=== PATIENT | female | born 1975 | race Caucasian/White ===

== ENCOUNTER 2016-12-04 14:44 | Emergency (ER) | payer SELFPAY ==
[~2016-12-04] VITALS: Ht 175.3 cm; Wt 145.1 kg
[~2016-12-04 14:44] MED LIST: AMOX500C2 PO; AZTH250C PO; BENZ100C8 PO; DILT180C55 PO; DILT240C PO; DILT240C86 PO; DIPH25TA29 PO; DULA1.5P2 SQ; GFCD10B PO; HCT25T PO; HYDR-3812 PO; HYDR50CA3 PO; IBUP-2055 PO; IBUP-792; LISI20TA PO; MTF500T PO; MTP25TSR; NAPR-243 PO; ONDA-42 SL; OSLT75C PO; PRD20T PO; PRD50T PO; PROP10TA8 PO; PROP20TA5 PO; QUIN1TAB3 PO; SMTR50T PO; SPIR25TA3 PO; SULF1TAB35 PO; SUMA1TAB PO; TPR25T PO
[2016-12-04] MEDS ORDERED: METF500T4 (14:53)
--- NOTE | 2016-12-04 14:58 | ED Upper Extremity ---
General Chief Complaint: Upper Extremity Stated Complaint: FALL, L ARM/ELBOW INJ Nursing Triage Note: LEFT SHOULDER PAIN S/P FALL. DENIES OTHER INJURIES. Nursing Sepsis Screen: No Definite Risk Source: patient Exam Limitations: no limitations History of Present Illness Time seen by provider: 14:57 Initial Comments to ER with left scapular pain after a slip and fall while at a graduation event today. Did not hit her head and there were no other injuries. Onset: just prior to arrival Severity: moderate Pain/Injury Location: left shoulder Method of Injury: fell Modifying Factors: Worse With Movement Allergies and Home Medications Allergies Coded Allergies: codeine (Verified Allergy, Unknown, 10/29/14) hydrochlorothiazide (Verified Allergy, Unknown, 10/29/14) Home Medications Diltiazem HCl 240 Mg Cap.er.24h, 240 MG PO DAILY, (Reported) Diphenhydramine HCl 25 Mg Tablet, 50 MG PO DAILY PRN for HEADACHE, (Reported) TAKES 2 (25 MG) TABLETS WITH IBUPROFEN NEEDED FOR HEADACHE Dulaglutide 1.5 Mg/0.5 Ml Pen.injctr, 1.5 MG SQ WEEK, (Reported) ON WEDNESDAYS Hydrocodone/Acetaminophen 1 Each Tablet, 1-2 EACH PO Q4H PRN for PAIN for 14 Days Prescribed by: LEIGHA OSBORN on 07/13/16 1534 Ibuprofen 200 Mg Tablet, 800 MG PO DAILY PRN for HEADACHE, (Reported) TAKES 4 (200 MG) TABLETS Metformin HCl 500 Mg Tablet, #180 (Reported) Propranolol HCl 10 Mg Tablet, 10 MG PO BID, (Reported) Spironolactone 25 Mg Tablet, 25 MG PO DAILY, (Reported) Sumatriptan Succinate 50 Mg Tab, 50 MG PO DAILY PRN for MIGRAINE, #9 Ref 1 Prescribed by: SHERIN TOURE on 06/14/16 1033 Constitutional: see HPI EENTM: see HPI Respiratory: no symptoms reported Cardiovascular: no symptoms reported Genitourinary: no symptoms reported Musculoskeletal: see HPI Skin: no symptoms reported Psychiatric/Neurological: No Symptoms Reported Past Tuokmyf-Rsxxjd-Inycic Hx Patient Social History Alcohol Use: Denies Use Recreational Drug Use: No Smoking Status: Never a Smoker 2nd Hand Smoke Exposure: No Recent Foreign Travel: No Contact w/Someone Who Travel: No Recent Infectious Disease Expo: No Recent Hopitalizations: No Immunizations Up To Date Tetanus Booster (TDap): Unknown Seasonal Allergies Seasonal Allergies: No Surgeries HX Surgeries: Yes Surgeries: Section, Gallbladder Respiratory Hx Respiratory Disorders: Yes Respiratory Disorders: Pneumonia, Sleep Apnea Cardiovascular Hx Cardiac Disorders: Yes (heart murmer as child) Cardiac Disorders: Heart Murmur, High Cholesterol, Hypertension Neurological Hx Neurological Disorders: Yes Neurological Disorders: Headaches /Migraines Reproductive System : No Hx Reproductive Disorders: No Sexually Transmitted Disease: No HIV/AIDS: No Genitourinary Hx Genitourinary Disorders: No Gastrointestinal Hx Gastrointestinal Disorders: No Musculoskeletal Hx Musculoskeletal Disorders: No Endocrine Hx Endocrine Disorders: Yes ("PREDIABETES"-HAS NEVER CHECKED GLUCOSE AT HOME- STATES "HIGH INSULIN LEVEL") Endocrine Disorders: Diabetes, Non-Insulin dep HEENT HX ENT Disorders: Yes (FREQUENT PHARYNGITIS) HEENT Disorders: Tonsilitis Cancer Hx Cancer: No Psychosocial Hx Psychiatric Problems: No Integumentary HX Skin/Integumentary Disorder: No Blood Transfusions Hx Blood Disorders: No Adverse Reaction to a Blood Tr: No Family Medical History Family Medial History: Arthritis Asthma 19 FATHER (copd) 19 MOTHER (copd) Cardiovascular disease 19 FATHER (chf) Diabetes mellitus 19 FATHER Hypertension 19 FATHER 19 MOTHER G8 BROTHER G8 SISTER Physical Exam Vital Signs Vital Sign - Last 12Hours 12/04/16 14:53 Temp 97.7 Pulse 87 Resp 16 B/P (MAP) 146/98 Pulse Ox 96 O2 Delivery Room Air Capillary Refill : Less Than 3 Seconds General Appearance: WD/WN, no apparent distress HEENT: PERRL/EOMI, normal ENT inspection Neck: non-tender, full range of motion Respiratory: no respiratory distress, no accessory muscle use Gastrointestinal: normal bowel sounds, non tender Shoulder: limited ROM, pain (pain to palpation over the posterior aspect left shoulder over the medial border of the scapula. No ecchymosis abrasion or erythema.) Elbow/Forearm: normal inspection, non-tender, Left Wrist: Yes normal inspection, Yes non-tender Hand: normal inspection, non-tender, Left Neurologic/Psychiatric: alert, normal mood/affect, oriented x 3 Skin: normal color, warm/dry Progress/Results/Core Measures Results/Orders My Orders Orders - ALLEGRA VILLATORO APRN Shoulder, Left, 3 Views (12/04/16 14:54) Ketorolac Injection (Toradol Injection) (12/04/16 15:00) Orphenadrine Injection (Norflex Injectio (12/04/16 15:00) Vital Signs/I&O Vital Sign - Last 12Hours 12/04/16 14:53 Temp 97.7 Pulse 87 Resp 16 B/P (MAP) 146/98 Pulse Ox 96 O2 Delivery Room Air Blood Pressure Mean: 114 Departure Impression Impression: Primary Impression: Shoulder contusion Disposition: HOME, SELF-CARE Condition: Critical Departure-Patient Inst. Decision time for Depature: 15:02 Referrals: [facility] (PCP/Family) Primary Care Physician Patient Instructions: Contusion (DC) Add. Discharge Instructions: 1. Tylenol and Motrin for pain 2. Return to ER for any concerns 3. See your doctor next week for any persistent pain for further evaluation All discharge instructions reviewed with patient and/or family. Voiced understanding. ALLEGRA VILLATORO APRN December 04, 2016 14:58
[2016-12-04] MEDS ORDERED: ORPHENADRINE 60 MG/2 ML (NORFLEX) AMP IM ONE (15:00)
[2016-12-04] MEDS ORDERED: KETOROLAC 60 MG/2 ML VIAL IM ONE (15:00)
--- NOTE | 2016-12-04 15:49 | Diagnostic Imaging Report ---
INDICATION: Shoulder pain post fall TECHNIQUE: Three views of the left shoulder 3:33 PM CORRELATION STUDY: None FINDINGS: The glenohumeral and acromioclavicular alignment are maintained and unremarkable. There is no evidence for acute fracture or dislocation. The visualized soft tissues are unremarkable. IMPRESSION: 1. Negative for acute bony abnormality about the shoulder. Dictated by: Dictated on workstation # [id number]
--- NOTE | 2016-12-04 15:51 | Diagnostic Imaging Report ---
INDICATION: pain post fall TECHNIQUE: 3 views of the left elbow CORRELATION STUDY: None FINDINGS: There is normal alignment of the osseous structures of the elbow. No acute fracture. No abnormal joint effusion. IMPRESSION: 1. Negative for acute bony abnormality of the elbow. Dictated by: Dictated on workstation # [id number]
[2016-12-04 15:54] VITALS: BP 146/98
== END 2016-12-04 15:53 | disposition home or self-care (01) ==
LOC: EDUNIT# 14:44 → ER 14:45
DX: S40.012A Contusion of left shoulder, initial encounter (principal); I10 Essential (primary) hypertension; E11.9 Type 2 diabetes mellitus without complications; Z79.84 Long term (current) use of oral hypoglycemic drugs; W01.0XXA Fall on same level from slipping, tripping and stumbling without subsequent striking against object, initial encounter; Y92.39 Other specified sports and athletic area as the place of occurrence of the external cause; Y99.8 Other external cause status
CPT/HCPCS: 73030; 73080; 96372; 99282

== ENCOUNTER 2017-02-05 10:05 | Emergency (ER) | payer SELFPAY ==
[~2017-02-05] VITALS: Ht 175.3 cm; Wt 145.1 kg
[~2017-02-05 10:05] MED LIST changes: +METF500T4
--- NOTE | 2017-02-05 10:50 | ED Back Pain ---
General Chief Complaint: Back Problems Stated Complaint: L SIDE BACK PAIN Source of Information: Patient Exam Limitations: No Limitations History of Present Illness Time Seen by Provider: 10:50 Initial Comments To ER with left mid back pain described as a shooting pain. She had some slight pain here yesterday. No known injury. No shortness of breath cough. No fevers or chills. She's never had this pain before. She denies any associated nausea vomiting or diarrhea. She denies any known injury. Pain is worsened by lying flat. She does have a history of kidney infections she states. Location: Paraspinous Muscles Timing/Duration: 1-2 Days Severity: Moderate Pain/Injury Location: Back Associated Symptoms: denies symptoms Allergies and Home Medications Allergies Coded Allergies: codeine (Verified Allergy, Unknown, 10/29/14) hydrochlorothiazide (Verified Allergy, Unknown, 10/29/14) Home Medications Diltiazem HCl 240 Mg Cap.er.24h, 240 MG PO DAILY, (Reported) Diphenhydramine HCl 25 Mg Tablet, 50 MG PO DAILY PRN for HEADACHE, (Reported) TAKES 2 (25 MG) TABLETS WITH IBUPROFEN NEEDED FOR HEADACHE Dulaglutide 1.5 Mg/0.5 Ml Pen.injctr, 1.5 MG SQ WEEK, (Reported) ON WEDNESDAYS Hydrocodone/Acetaminophen 1 Each Tablet, 1-2 EACH PO Q4H PRN for PAIN for 14 Days Prescribed by: LEIGHA OSBORN on 07/13/16 1534 Ibuprofen 200 Mg Tablet, 800 MG PO DAILY PRN for HEADACHE, (Reported) TAKES 4 (200 MG) TABLETS Metformin HCl 500 Mg Tablet, #180 (Reported) Propranolol HCl 10 Mg Tablet, 10 MG PO BID, (Reported) Spironolactone 25 Mg Tablet, 25 MG PO DAILY, (Reported) Sumatriptan Succinate 50 Mg Tab, 50 MG PO DAILY PRN for MIGRAINE, #9 Ref 1 Prescribed by: SHERIN TOURE on 06/14/16 1033 Constitutional: see HPI, No chills, No fever EENTM: see HPI Respiratory: no symptoms reported Cardiovascular: no symptoms reported Genitourinary: no symptoms reported, No dysuria, No frequency, No hematuria, No hesitancy Musculoskeletal: see HPI, back pain Skin: no symptoms reported Psychiatric/Neurological: No Symptoms Reported Past Cfqarvo-Iebmib-Acoyvu Hx Patient Social History 2nd Hand Smoke Exposure: No Recent Foreign Travel: No Contact w/Someone Who Travel: No Recent Hopitalizations: No Immunizations Up To Date Tetanus Booster (TDap): Unknown Seasonal Allergies Seasonal Allergies: No Surgeries HX Surgeries: Yes Surgeries: Section, Gallbladder Respiratory Hx Respiratory Disorders: Yes Respiratory Disorders: Pneumonia, Sleep Apnea Cardiovascular Hx Cardiac Disorders: Yes (heart murmer as child) Cardiac Disorders: Heart Murmur, High Cholesterol, Hypertension Neurological Hx Neurological Disorders: Yes Neurological Disorders: Headaches /Migraines Reproductive System Hx Reproductive Disorders: No Sexually Transmitted Disease: No HIV/AIDS: No Genitourinary Hx Genitourinary Disorders: No Gastrointestinal Hx Gastrointestinal Disorders: No Musculoskeletal Hx Musculoskeletal Disorders: No Endocrine Hx Endocrine Disorders: Yes ("PREDIABETES"-HAS NEVER CHECKED GLUCOSE AT HOME- STATES "HIGH INSULIN LEVEL") Endocrine Disorders: Diabetes, Non-Insulin dep HEENT HX ENT Disorders: Yes (FREQUENT PHARYNGITIS) HEENT Disorders: Tonsilitis Cancer Hx Cancer: No Psychosocial Hx Psychiatric Problems: No Integumentary HX Skin/Integumentary Disorder: No Blood Transfusions Hx Blood Disorders: No Adverse Reaction to a Blood Tr: No Family Medical History Family Medial History: Arthritis Asthma 19 FATHER (copd) 19 MOTHER (copd) Cardiovascular disease 19 FATHER (chf) Diabetes mellitus 19 FATHER Hypertension 19 FATHER 19 MOTHER G8 BROTHER G8 SISTER Physical Exam Vital Signs Vital Sign - Last 12Hours 02/05/17 10:20 Temp 98.1 Pulse 70 B/P (MAP) 134/98 Pulse Ox 98 O2 Delivery Room Air Capillary Refill : General Appearance: No Apparent Distress, WD/WN, Obese HEENT: PERRL/EOMI, TMs Normal Respiratory: No Accessory Muscle Use, No Respiratory Distress Gastrointestinal: Non Tender, Soft Extremity: Normal Capillary Refill, Normal Inspection Neurologic/Psychiatric: Alert, Oriented x3, No Motor/Sensory Deficits Skin: Normal Color, Warm/Dry Progress/Results/Core Measures Results/Orders Lab Results Laboratory Tests Test 02/05/17 10:30 02/05/17 10:46 Range/Units Urine Color YELLOW Urine Clarity VERY CLOUDY H Urine pH 5 5-9 Urine Specific [place] 1.020 1.016-1.022 Urine Protein NEGATIVE NEGATIVE Urine Glucose (UA) NEGATIVE NEGATIVE Urine Ketones NEGATIVE NEGATIVE Urine Nitrite NEGATIVE NEGATIVE Urine Bilirubin NEGATIVE NEGATIVE Urine Urobilinogen NORMAL NORMAL MG/DL Urine Leukocyte Esterase 2+ H NEGATIVE Urine RBC (Auto) NEGATIVE NEGATIVE Urine RBC NONE /HPF Urine WBC 5-10 H /HPF Urine Crystals PRESENT H /LPF Urine Amorphous Sediment MOD CASSANDRA URATES H /LPF Urine Bacteria LARGE H /HPF Urine Casts NONE /LPF Urine Mucus SMALL H /LPF Urine Culture Indicated YES Urine Test NEGATIVE NEGATIVE White Blood Count 7.5 4.3-11.0 10^3/uL Red Blood Count 5.20 4.35-5.85 10^6/uL Hemoglobin 12.6 11.5-16.0 G/DL Hematocrit 40 35-52 % Mean Corpuscular Volume 77 L 80-99 FL Mean Corpuscular Hemoglobin 24 L 25-34 PG Mean Corpuscular Hemoglobin Concent 31 L 32-36 G/DL Red Cell Distribution Width 15.0 H 10.0-14.5 % Platelet Count 340 130-400 10^3/uL Mean Platelet Volume 9.3 7.4-10.4 FL Neutrophils (%) (Auto) 55 42-75 % Lymphocytes (%) (Auto) 30 12-44 % Monocytes (%) (Auto) 8 0-12 % Eosinophils (%) (Auto) 7 0-10 % Basophils (%) (Auto) 0 0-10 % Neutrophils # (Auto) 4.1 1.8-7.8 X 10^3 Lymphocytes # (Auto) 2.3 1.0-4.0 X 10^3 Monocytes # (Auto) 0.6 0.0-1.0 X 10^3 Eosinophils # (Auto) 0.5 H 0.0-0.3 10^3/uL Basophils # (Auto) 0.0 0.0-0.1 10^3/uL Sodium Level 139 135-145 MMOL/L Potassium Level 4.3 3.6-5.0 MMOL/L Chloride Level 107 98-107 MMOL/L Carbon Dioxide Level 23 21-32 MMOL/L Anion Gap 9 5-14 MMOL/L Blood Urea Nitrogen 7 7-18 MG/DL Creatinine 0.75 0.60-1.30 MG/DL Estimat Glomerular Filtration Rate > 60 BUN/Creatinine Ratio 9 Glucose Level 100 70-105 MG/DL Calcium Level 9.4 8.5-10.1 MG/DL Total Bilirubin 0.4 0.1-1.0 MG/DL Aspartate Amino Transf (AST/SGOT) 17 5-34 U/L Alanine Aminotransferase (ALT/SGPT) 17 0-55 U/L Alkaline Phosphatase 51 40-136 U/L Total Protein 7.6 6.4-8.2 GM/DL Albumin 4.1 3.2-4.5 GM/DL My Orders Orders - ALLEGRA VILLATORO APRN Cbc With Automated Diff (02/05/17 10:48) Comprehensive Metabolic Panel (02/05/17 10:48) Saline Lock/Iv-Start (02/05/17 10:48) Ua Culture If Indicated (02/05/17 10:48) Ketorolac Injection (Toradol Injection) (02/05/17 11:00) Orphenadrine Injection (Norflex Injectio (02/05/17 11:00) Ns Iv 1000 Ml (Sodium Chloride 0.9%) (02/05/17 11:45) Ct Abdomen/Pelvis Wo (02/05/17 12:02) Hydrocodone/Apap 5/325 Tablet (Lortab 5 (02/05/17 12:15) Hcg,Qualitative Urine (02/05/17 12:02) Urine Culture (02/05/17 10:30) Medications Given in ED Current Medications Medications Dose Ordered Sig/Minerva Route Start Time Stop Time Status Last Admin Dose Admin Ketorolac Tromethamine 60 mg ONCE ONCE IM 02/05/17 11:00 02/05/17 11:01 DC 02/05/17 10:56 60 MG Orphenadrine Citrate 60 mg ONCE ONCE IV 02/05/17 11:00 02/05/17 11:01 DC 02/05/17 10:56 60 MG Vital Signs/I&O Vital Sign - Last 12Hours 02/05/17 02/05/17 10:20 10:56 Temp 98.1 97.3 Pulse 70 B/P (MAP) 134/98 Pulse Ox 98 O2 Delivery Room Air Departure Impression Impression: Primary Impression: Urinary tract infection Additional Impression: Flank pain Disposition: HOME, SELF-CARE Condition: Stable Departure-Patient Inst. Decision time for Depature: 12:21 Referrals: [facility] (PCP/Family) Primary Care Physician Patient Instructions: Urinary Tract Infection, Adult (DC) Add. Discharge Instructions: 1. Take antibiotics as directed 2. tylenol and motrin as needed for pain in addition to warm packs to this area. All discharge instructions reviewed with patient and/or family. Voiced understanding. Scripts Sulfamethoxazole/Trimethoprim (Bactrim Ds Tablet) 1 Each Tablet 1 EACH PO BID, #10 TAB Prov: ALLEGRA VILLATORO APRN 02/05/17 ALLEGRA VILLATORO APRN Feb 05, 2017 10:50
[2017-02-05 10:53] LABS: BASOPHILS % (AUTO) 0 % (0-10); EOSINOPHILS # (AUTO) 0.5 10^3/uL (0.0-0.3); EOSINOPHILS % (AUTO) 7 % (0-10); LYMPHOCYTES # (AUTO) 2.3 X 10^3 (1.0-4.0); LYMPHOCYTES % (AUTO) 30 % (12-44); MEAN CORPUSCULAR HEMOGLOBIN 24 PG (25-34); MEAN CORPUSCULAR HGB CONC 31 G/DL (32-36); MEAN CORPUSCULAR VOLUME 77 FL (80-99); MEAN PLATELET VOLUME 9.3 FL (7.4-10.4); MONOCYTES # (AUTO) 0.6 X 10^3 (0.0-1.0); MONOCYTES % (AUTO) 8 % (0-12); NEUTROPHILS # (AUTO) 4.1 X 10^3 (1.8-7.8); NEUTROPHILS % (AUTO) 55 % (42-75); PLATELET COUNT 340 10^3/uL (130-400); WHITE BLOOD COUNT 7.5 10^3/uL (4.3-11.0)
[2017-02-05] MEDS ORDERED: KETOROLAC 60 MG/2 ML VIAL IM ONE (11:00)
[2017-02-05] MEDS ORDERED: ORPHENADRINE 60 MG/2 ML (NORFLEX) AMP IV ONE (11:00)
[2017-02-05 11:08] LABS: ALANINE AMINOTRANSFERASE 17 U/L (0-55); ALBUMIN 4.1 GM/DL (3.2-4.5); ANION GAP 9 MMOL/L (5-14); ASPARTATE AMINO TRANSFERASE 17 U/L (5-34); BILIRUBIN,TOTAL 0.4 MG/DL (0.1-1.0); BLOOD UREA NITROGEN 7 MG/DL (7-18); BUN/CREATININE RATIO 9; CALCIUM 9.4 MG/DL (8.5-10.1); CARBON DIOXIDE 23 MMOL/L (21-32); CHLORIDE 107 MMOL/L (98-107); CREATININE SERUM 0.75 MG/DL (0.60-1.30); GFR ESTIMATED > 60; GLUCOSE 100 MG/DL (70-105); POTASSIUM 4.3 MMOL/L (3.6-5.0); SODIUM 139 MMOL/L (135-145); TOTAL PROTEIN 7.6 GM/DL (6.4-8.2)
[2017-02-05] MEDS ORDERED: NS IV 1000 ML 1,000 ML IV SCH (11:45)
[2017-02-05 12:06] LABS: BILIRUBIN,URINE NEGATIVE (NEGATIVE); KETONES,URINE NEGATIVE (NEGATIVE); LEUKOCYTE ESTERASE ,URINE 2+ (NEGATIVE); NITRITE,URINE NEGATIVE (NEGATIVE); PH,URINE 5 (5-9); PROTEIN,URINE NEGATIVE (NEGATIVE); UROBILINOGEN,URINE NORMAL (NORMAL)
[2017-02-05] MEDS ORDERED: HYDROcodone/APAP 5 MG/325 MG (LORTAB) TAB PO ONE (12:15)
[2017-02-05] MEDS ORDERED: SULF1TAB35 PO (12:22)
--- NOTE | 2017-02-05 12:46 | Diagnostic Imaging Report ---
PROCEDURE: CT abdomen and pelvis without contrast. TECHNIQUE: Multiple contiguous axial images were obtained through the abdomen and pelvis without the use of intravenous contrast. INDICATION: Left back pain and diarrhea. COMPARISON: CT abdomen and pelvis of 05/16/2013 FINDINGS: Evaluation of the abdominal viscera is mildly limited without contrast. Lower chest: The lung bases are clear. No pericardial or pleural effusion. Peritoneum: No free intraperitoneal air or fluid. Liver and biliary system: No concerning focal hepatic lesion. Geographic areas of hypoattenuation likely represent focal fatty infiltration. Small exophytic cystic lesions in the subcapsular region of the posterior inferior right hepatic lobe are unchanged. Cholecystectomy. No biliary duct dilatation. Spleen and Pancreas: Spleen is normal. Unenhanced pancreas is grossly normal. Adrenals: Normal. tract: No renal or ureteral calculi. No obstructive uropathy. Uterus and ovaries are normal in appearance. GI tract: Stomach is decompressed. No bowel obstruction. No pericolonic inflammatory changes. Normal appendix. Vasculature and Lymph nodes: Normal caliber aorta. No abdominal or pelvic lymphadenopathy. Musculoskeletal: No concerning osseous lesion. 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 IMPRESSION: 1. No urinary tract calculi or obstructive uropathy. 2. No bowel obstruction, diverticulitis or colitis. 3. Cholecystectomy. Dictated by: Dictated on workstation # [id number]
[2017-02-05 12:50] VITALS: BP 130/92
== END 2017-02-05 12:50 | disposition home or self-care (01) ==
LOC: EDUNIT# 10:05 → ER 10:06
DX: N39.0 Urinary tract infection, site not specified (principal); G47.30 Sleep apnea, unspecified; E78.00 Pure hypercholesterolemia, unspecified; I10 Essential (primary) hypertension; E11.9 Type 2 diabetes mellitus without complications; G43.909 Migraine, unspecified, not intractable, without status migrainosus; Z82.49 Family history of ischemic heart disease and other diseases of the circulatory system; Z87.59 Personal history of other complications of pregnancy, childbirth and the puerperium; Z87.448 Personal history of other diseases of urinary system; Z79.84 Long term (current) use of oral hypoglycemic drugs
CPT/HCPCS: 36415; 74176; 80053; 81000; 84703; 85025; 87088; 96360; 96372

== ENCOUNTER 2017-02-06 22:42 | Emergency (ER) | payer SELFPAY ==
[~2017-02-06] VITALS: Ht 175.3 cm; Wt 145.2 kg
[2017-02-06] MEDS ORDERED: KETOROLAC 30 MG/ML VIAL IVP STA (23:15)
[2017-02-06 23:38] LABS: BASOPHILS % (AUTO) 0 % (0-10); EOSINOPHILS # (AUTO) 0.6 10^3/uL (0.0-0.3); EOSINOPHILS % (AUTO) 6 % (0-10); LYMPHOCYTES # (AUTO) 2.2 X 10^3 (1.0-4.0); LYMPHOCYTES % (AUTO) 22 % (12-44); MEAN CORPUSCULAR HEMOGLOBIN 24 PG (25-34); MEAN CORPUSCULAR HGB CONC 31 G/DL (32-36); MEAN CORPUSCULAR VOLUME 77 FL (80-99); MEAN PLATELET VOLUME 9.6 FL (7.4-10.4); MONOCYTES # (AUTO) 0.8 X 10^3 (0.0-1.0); MONOCYTES % (AUTO) 9 % (0-12); NEUTROPHILS # (AUTO) 6.3 X 10^3 (1.8-7.8); NEUTROPHILS % (AUTO) 64 % (42-75); PLATELET COUNT 345 10^3/uL (130-400); WHITE BLOOD COUNT 9.8 10^3/uL (4.3-11.0)
[2017-02-06] MEDS ORDERED: KETOROLAC 30 MG/ML VIAL IM ONE (23:45)
[2017-02-06 23:46] LABS: BILIRUBIN,URINE NEGATIVE (NEGATIVE); KETONES,URINE NEGATIVE (NEGATIVE); LEUKOCYTE ESTERASE ,URINE 2+ (NEGATIVE); NITRITE,URINE NEGATIVE (NEGATIVE); PH,URINE 6 (5-9); PROTEIN,URINE NEGATIVE (NEGATIVE); UROBILINOGEN,URINE NORMAL (NORMAL)
[2017-02-06 23:58] LABS: ALANINE AMINOTRANSFERASE 31 U/L (0-55); ALBUMIN 3.9 GM/DL (3.2-4.5); AMYLASE 46 U/L (25-125); ANION GAP 11 MMOL/L (5-14); ASPARTATE AMINO TRANSFERASE 35 U/L (5-34); BILIRUBIN,TOTAL 0.3 MG/DL (0.1-1.0); BLOOD UREA NITROGEN 8 MG/DL (7-18); CARBON DIOXIDE 22 MMOL/L (21-32); CHLORIDE 105 MMOL/L (98-107); GLUCOSE 96 MG/DL (70-105); LIPASE 29 U/L (8-78); MAGNESIUM 2.4 MG/DL (1.8-2.4); POTASSIUM 4.1 MMOL/L (3.6-5.0); SODIUM 138 MMOL/L (135-145); TOTAL PROTEIN 7.4 GM/DL (6.4-8.2)
[2017-02-07 00:04] LABS: TROPONIN I < 0.30 NG/ML (<0.30)
[2017-02-07 00:21] LABS: BUN/CREATININE RATIO 10; CREATININE SERUM 0.83 MG/DL (0.60-1.30); GFR ESTIMATED > 60
--- NOTE | 2017-02-07 00:23 | ED Abdominal Pain ---
General Chief Complaint: Abdominal/GI Problems Stated Complaint: L SIDE PAIN Nursing Triage Note: c/o LUQ abdomen pain, reports being here yesterday for same and diagnosed with UTI. 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 NO DIARRHEA + SUBJECTIVE FEVER AND CHILLS NO COUGH NO CHEST PAIN HAD SLIGHT SHORTNESS OF BREATH YESTERDAY, NONE TODAY TOOK IBUPROFEN X 3 EARLIER TODAY, TOOK 1 HYDROCODONE THIS AM AND ANOTHER ONE 1 1 /2 HOURS AGO WITHOUT RELIEF. PCP: [facility], ROBERTH KHAN Allergies and Home Medications Allergies Coded Allergies: codeine (Verified Allergy, Unknown, 10/29/14) hydrochlorothiazide (Verified Allergy, Unknown, 10/29/14) Home Medications Azithromycin 500 Mg Tablet, 500 MG PO DAILY, #5 FOR INFECTION Prescribed by: ANDREEA WASHINGTON on 02/07/17 0031 Diltiazem HCl 240 Mg Cap.er.24h, 240 MG PO DAILY, (Reported) Diphenhydramine HCl 25 Mg Tablet, 50 MG PO DAILY PRN for HEADACHE, (Reported) TAKES 2 (25 MG) TABLETS WITH IBUPROFEN NEEDED FOR HEADACHE Dulaglutide 1.5 Mg/0.5 Ml Pen.injctr, 1.5 MG SQ WEEK, (Reported) ON WEDNESDAYS Hydrocodone/Acetaminophen 1 Each Tablet, 1-2 EACH PO Q4H PRN for PAIN for 14 Days Prescribed by: LEIGHA OSBORN on 07/13/16 1534 Ibuprofen 200 Mg Tablet, 800 MG PO DAILY PRN for HEADACHE, (Reported) TAKES 4 (200 MG) TABLETS Ketorolac Tromethamine 10 Mg Tablet, 10 MG PO Q6H, #15 Prescribed by: ANDREEA WASHINGTON on 02/07/17 0031 Metformin HCl 500 Mg Tablet, #180 (Reported) Propranolol HCl 10 Mg Tablet, 10 MG PO BID, (Reported) Spironolactone 25 Mg Tablet, 25 MG PO DAILY, (Reported) Sulfamethoxazole/Trimethoprim 1 Each Tablet, 1 EACH PO BID, #10 Prescribed by: ALLEGRA VILLATORO on 02/05/17 1222 Sumatriptan Succinate 50 Mg Tab, 50 MG PO DAILY PRN for MIGRAINE, #9 Ref 1 Prescribed by: SHERIN TOURE on 06/14/16 1033 Review of Systems Constitutional: see HPI, chills, fever EENTM: No Symptoms Reported Respiratory: See HPI, Shortness of Air (NOT TODAY) Cardiovascular: No Symptoms Reported Gastrointestinal: See HPI, Abdominal Pain, Denies Constipated, Denies Diarrhea , Nausea, Denies Vomiting Genitourinary: No Symptoms Reported Musculoskeletal: see HPI (LEFT FLANK PAIN YESTERDAY, NOT TODAY) Skin: no symptoms reported Psychiatric/Neurological: No Symptoms Reported Endocrine: No Symptoms Reported Hematologic/Lymphatic: No Symptoms Reported Past Wpmnvln-Xvfxga-Styrqm Hx Patient Social History Alcohol Use: Denies Use Recreational Drug Use: No Smoking Status: Never a Smoker 2nd Hand Smoke Exposure: No Recent Foreign Travel: No Contact w/Someone Who Travel: No Recent Infectious Disease Expo: No Recent Hopitalizations: No Immunizations Up To Date Tetanus Booster (TDap): Unknown Seasonal Allergies Seasonal Allergies: No Surgeries HX Surgeries: Yes Surgeries: Section, Gallbladder Respiratory Hx Respiratory Disorders: Yes Respiratory Disorders: Pneumonia, Sleep Apnea Cardiovascular Hx Cardiac Disorders: Yes (HEART MURMUR A CHILD) Cardiac Disorders: Heart Murmur, High Cholesterol, Hypertension Neurological Hx Neurological Disorders: Yes Neurological Disorders: Headaches /Migraines Reproductive System Hx Reproductive Disorders: No Sexually Transmitted Disease: No HIV/AIDS: No Genitourinary Hx Genitourinary Disorders: No Gastrointestinal Hx Gastrointestinal Disorders: No Musculoskeletal Hx Musculoskeletal Disorders: No Endocrine Hx Endocrine Disorders: Yes ("PREDIABETES"-HAS NEVER CHECKED GLUCOSE AT HOME- STATES "HIGH INSULIN LEVEL"; OBESITY) Endocrine Disorders: Diabetes, Non-Insulin dep HEENT HX ENT Disorders: Yes (FREQUENT PHARYNGITIS) HEENT Disorders: Tonsilitis Cancer Hx Cancer: No Psychosocial Hx Psychiatric Problems: No Integumentary HX Skin/Integumentary Disorder: No Blood Transfusions Hx Blood Disorders: No Adverse Reaction to a Blood Tr: No Family Medical History Family Medial History: Arthritis Asthma 19 FATHER (copd) 19 MOTHER (copd) Cardiovascular disease 19 FATHER (chf) Diabetes mellitus 19 FATHER Hypertension 19 FATHER 19 MOTHER G8 BROTHER G8 SISTER Physical Exam Vital Signs VS - Last 72 Hours, by Label 02/06/17 02/07/17 22:48 00:34 Temp 98.9 Pulse 92 84 Resp 18 18 B/P (MAP) Pulse Ox 98 97 Capillary Refill : Less Than 3 Seconds General Appearance: no apparent distress, obese Neck: normal inspection Respiratory: chest non-tender, normal breath sounds, no respiratory distress, no accessory muscle use Cardiovascular: regular rate, rhythm, no edema, no JVD, no murmur Gastrointestinal: normal bowel sounds, soft, no organomegaly, no pulsatile mass , No distended, No guarding, No rebound, tenderness (LUQ) Extremities: normal inspection, no pedal edema, normal capillary refill Back: no CVA tenderness 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, no motor/sensory deficits, alert, normal mood/affect, oriented x 3 Skin: normal color, warm/dry Progress/Results/Core Measures Results/Orders Lab Results Laboratory Tests Test 02/06/17 23:30 02/06/17 23:41 Range/Units White Blood Count 9.8 4.3-11.0 10^3/uL Red Blood Count 4.90 4.35-5.85 10^6/uL Hemoglobin 11.9 11.5-16.0 G/DL Hematocrit 38 35-52 % Mean Corpuscular Volume 77 L 80-99 FL Mean Corpuscular Hemoglobin 24 L 25-34 PG Mean Corpuscular Hemoglobin Concent 31 L 32-36 G/DL Red Cell Distribution Width 15.0 H 10.0-14.5 % Platelet Count 345 130-400 10^3/uL Mean Platelet Volume 9.6 7.4-10.4 FL Neutrophils (%) (Auto) 64 42-75 % Lymphocytes (%) (Auto) 22 12-44 % Monocytes (%) (Auto) 9 0-12 % Eosinophils (%) (Auto) 6 0-10 % Basophils (%) (Auto) 0 0-10 % Neutrophils # (Auto) 6.3 1.8-7.8 X 10^3 Lymphocytes # (Auto) 2.2 1.0-4.0 X 10^3 Monocytes # (Auto) 0.8 0.0-1.0 X 10^3 Eosinophils # (Auto) 0.6 H 0.0-0.3 10^3/uL Basophils # (Auto) 0.0 0.0-0.1 10^3/uL Sodium Level 138 135-145 MMOL/L Potassium Level 4.1 3.6-5.0 MMOL/L Chloride Level 105 98-107 MMOL/L Carbon Dioxide Level 22 21-32 MMOL/L Anion Gap 11 5-14 MMOL/L Blood Urea Nitrogen 8 7-18 MG/DL Creatinine 0.83 0.60-1.30 MG/DL Estimat Glomerular Filtration Rate > 60 BUN/Creatinine Ratio 10 Glucose Level 96 70-105 MG/DL Calcium Level 9.0 8.5-10.1 MG/DL Magnesium Level 2.4 1.8-2.4 MG/DL Total Bilirubin 0.3 0.1-1.0 MG/DL Aspartate Amino Transf (AST/SGOT) 35 H 5-34 U/L Alanine Aminotransferase (ALT/SGPT) 31 0-55 U/L Alkaline Phosphatase 48 40-136 U/L Troponin I < 0.30 <0.30 NG/ML B-Type Natriuretic Peptide 19.6 <100.0 PG/ML Total Protein 7.4 6.4-8.2 GM/DL Albumin 3.9 3.2-4.5 GM/DL Amylase Level 46 25-125 U/L Lipase 29 8-78 U/L Urine Color YELLOW Urine Clarity VERY CLOUDY H Urine pH 6 5-9 Urine Specific [place] 1.010 L 1.016-1.022 Urine Protein NEGATIVE NEGATIVE Urine Glucose (UA) NEGATIVE NEGATIVE Urine Ketones NEGATIVE NEGATIVE Urine Nitrite NEGATIVE NEGATIVE Urine Bilirubin NEGATIVE NEGATIVE Urine Urobilinogen NORMAL NORMAL MG/DL Urine Leukocyte Esterase 2+ H NEGATIVE Urine RBC (Auto) 2+ H NEGATIVE Urine RBC RARE /HPF Urine WBC 2-5 /HPF Urine Squamous Epithelial Cells 10-25 H /HPF Urine Crystals NONE /LPF Urine Bacteria LARGE H /HPF Urine Casts NONE /LPF Urine Mucus NEGATIVE /LPF Urine Culture Indicated YES My Orders Orders - ANDREEA WASHINGTON DO Saline Lock/Iv-Start (02/06/17 23:15) Ekg Tracing (02/06/17 23:15) Monitor-Rhythm Ecg Trace Only (02/06/17 23:15) Amylase (02/06/17 23:15) BNP (02/06/17 23:15) Cbc With Automated Diff (02/06/17 23:15) Comprehensive Metabolic Panel (02/06/17 23:15) Lipase (02/06/17 23:15) Magnesium (02/06/17 23:15) Troponin I (02/06/17 23:15) Ua Culture If Indicated (02/06/17 23:15) Ketorolac Injection (Toradol Injection) (02/06/17 23:15) Ketorolac Injection (Toradol Injection) (02/06/17 23:45) Urine Culture (02/06/17 23:41) Medications Given in ED Current Medications Medications Dose Ordered Sig/Minerva Route Start Time Stop Time Status Last Admin Dose Admin Ketorolac Tromethamine 30 mg ONCE ONCE IM 02/06/17 23:45 02/06/17 23:46 DC 02/06/17 23:36 60 MG Vital Signs/I&O Vital Sign - Last 12Hours 02/06/17 02/07/17 22:48 00:34 Temp 98.9 Pulse 92 84 Resp 18 18 B/P (MAP) Pulse Ox 98 97 Progress Note : Progress Note PAIN EASED SOME WITH TORADOL REVIEWED PRELIMINARY URINE CULTURE REPORT--CORYNEBACTERIUM SPECIES WITH MIXED DENISSE. WILL ADD ZITHROMAX DUE TO COVERAGE FOR CORYNEBACTERIA ECG Initial ECG Impression Time: 23:21 Initial ECG Rate: 82 Initial ECG Rhythm: Normal Sinus Initial ECG Impression: Normal Initial ECG Comparisson: Unchanged Departure Impression Impression: Primary Impression: Urinary tract infection Disposition: 01 HOME, SELF-CARE Condition: Stable Departure-Patient Inst. Referrals: [facility] (PCP/Family) Primary Care Physician Patient Instructions: Urinary Tract Infection, Adult (DC) Add. Discharge Instructions: LOTS OF CLEAR LIQUIDS--NO COFFEE, POP OR TEA TYLENOL NEEDED FOR PAIN, YOU MAY ALSO TAKE YOUR HYDROCODONE NEEDED FOR PAIN CONTINUE ANTIBIOTICS PRESCRIBED FOLLOW UP WITH YOUR DR IN 2-3 DAYS IF NO BETTER All discharge instructions reviewed with patient and/or family. Voiced understanding. Scripts Azithromycin (Zithromax) 500 Mg Tablet 500 MG PO DAILY, #5 TAB FOR INFECTION Prov: ANDREEA WASHINGTON DO 02/07/17 Ketorolac Tromethamine (Ketorolac Tromethamine) 10 Mg Tablet 10 MG PO Q6H for Pain, #15 TAB Prov: FELIXCAINA K DO 02/07/17 ANDREEA WASHINGTON DO Feb 07, 2017 00:23
[2017-02-07] MEDS ORDERED: AZIT500T PO (00:31)
[2017-02-07] MEDS ORDERED: KETO10TA PO (00:31)
[2017-02-07 00:34] VITALS: BP 136/98
== END 2017-02-07 00:34 | disposition home or self-care (01) ==
LOC: EDUNIT# 22:42 → ER 22:43
DX: N39.0 Urinary tract infection, site not specified (principal); G47.30 Sleep apnea, unspecified; E78.00 Pure hypercholesterolemia, unspecified; I10 Essential (primary) hypertension; G43.909 Migraine, unspecified, not intractable, without status migrainosus; E11.9 Type 2 diabetes mellitus without complications; Z79.84 Long term (current) use of oral hypoglycemic drugs; Z82.49 Family history of ischemic heart disease and other diseases of the circulatory system; Z87.59 Personal history of other complications of pregnancy, childbirth and the puerperium
CPT/HCPCS: 36415; 80053; 81000; 82150; 83690; 83735; 83880; 84484; 85025; 87088; 93005; 96372

== ENCOUNTER 2017-03-05 13:38 | Emergency (ER) | payer SELFPAY ==
[~2017-03-05] VITALS: Ht 175.3 cm; Wt 145.2 kg
[~2017-03-05 13:38] MED LIST changes: +AZIT500T PO; +KETO10TA PO
--- NOTE | 2017-03-05 15:06 | ED Integumentary General ---
General Chief Complaint: Bite-Animal/Human/Insect Stated Complaint: POSS SPIDER BITE ON RT ANKLE Nursing Triage Note: Stated that yesterday the inside of rt ankle began to itch, today the area is burning, aching, red, sl swollen, with scabbing in the center. denies difficulty breathing or nausea Source: patient, family (daughter) Exam Limitations: no limitations History of Present Illness Time seen by provider: 14:44 Initial Comments 42-year-old female patient presents to the emergency department with complaints of right ankle itching, pain, burning, redness, and swelling beginning yesterday. Denies nausea, shortness of air, swelling of the throat/time/face, headache. 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 Timing/Duration: yesterday, getting worse Location: extremities (RLE) Possible Cause: other (possible insect or spider bite) Allergies and Home Medications Allergies Coded Allergies: codeine (Verified Allergy, Unknown, 10/29/14) hydrochlorothiazide (Verified Allergy, Unknown, 10/29/14) Home Medications Diltiazem HCl 240 Mg Cap.er.24h, 240 MG PO DAILY, (Reported) Diphenhydramine HCl 25 Mg Tablet, 50 MG PO DAILY PRN for HEADACHE, (Reported) TAKES 2 (25 MG) TABLETS WITH IBUPROFEN NEEDED FOR HEADACHE Dulaglutide 1.5 Mg/0.5 Ml Pen.injctr, 1.5 MG SQ WEEK, (Reported) ON WEDNESDAYS Ibuprofen 200 Mg Tablet, 800 MG PO DAILY PRN for HEADACHE, (Reported) TAKES 4 (200 MG) TABLETS Metformin HCl 500 Mg Tablet, #180 (Reported) Propranolol HCl 10 Mg Tablet, 10 MG PO BID, (Reported) Spironolactone 25 Mg Tablet, 25 MG PO DAILY, (Reported) Sumatriptan Succinate 50 Mg Tab, 50 MG PO DAILY PRN for MIGRAINE, #9 Ref 1 Prescribed by: SHERIN TOURE on 06/14/16 1033 Past Yfltbsz-Goljom-Zmxrao Hx Patient Social History Alcohol Use: Denies Use Recreational Drug Use: No Smoking Status: Never a Smoker 2nd Hand Smoke Exposure: No Recent Foreign Travel: No Contact w/Someone Who Travel: No Recent Infectious Disease Expo: No Recent Hopitalizations: No Immunizations Up To Date Tetanus Booster (TDap): More than 5yrs Seasonal Allergies Seasonal Allergies: No Surgeries HX Surgeries: Yes Surgeries: Section, Gallbladder Respiratory Hx Respiratory Disorders: Yes Respiratory Disorders: Pneumonia Cardiovascular Hx Cardiac Disorders: Yes (HEART MURMUR A CHILD) Cardiac Disorders: Heart Murmur, Hypertension Neurological Hx Neurological Disorders: Yes Neurological Disorders: Headaches /Migraines Reproductive System Hx Reproductive Disorders: No Sexually Transmitted Disease: No HIV/AIDS: No Genitourinary Hx Genitourinary Disorders: No Gastrointestinal Hx Gastrointestinal Disorders: No Musculoskeletal Hx Musculoskeletal Disorders: No Endocrine Hx Endocrine Disorders: Yes Endocrine Disorders: Diabetes, Non-Insulin dep HEENT HX ENT Disorders: Yes (FREQUENT PHARYNGITIS) HEENT Disorders: Tonsilitis Cancer Hx Cancer: No Psychosocial Hx Psychiatric Problems: No Integumentary HX Skin/Integumentary Disorder: No Blood Transfusions Hx Blood Disorders: No Adverse Reaction to a Blood Tr: No Family Medical History Family Medial History: Arthritis Asthma 19 FATHER (copd) 19 MOTHER (copd) Cardiovascular disease 19 FATHER (chf) Diabetes mellitus 19 FATHER Hypertension 19 FATHER 19 MOTHER G8 BROTHER G8 SISTER Physical Exam Vital Signs Vital Sign - Last 12Hours 03/05/17 13:54 Temp 98.1 Pulse 92 Resp 18 B/P (MAP) 184/116 Pulse Ox 100 Capillary Refill : Less Than 3 Seconds Progress/Results/Core Measures Results/Orders My Orders Orders - SOLO VELÁZQUEZ Tramadol Tablet (Ultram Tablet) (03/05/17 15:00) Vital Signs/I&O Vital Sign - Last 12Hours 03/05/17 13:54 Temp 98.1 Pulse 92 Resp 18 B/P (MAP) 184/116 Pulse Ox 100 Blood Pressure Mean: 138 Departure Impression Impression: Primary Impression: Accidental spider bite Disposition: 01 HOME, SELF-CARE Condition: Improved Departure-Patient Inst. Decision time for Depature: 15:19 Referrals: [facility] (PCP/Family) Primary Care Physician Patient Instructions: Spider Bites Add. Discharge Instructions: All discharge instructions reviewed with patient and/or family. Voiced understanding. Medications as instructed. Tylenol Extra Strength over-the- counter as directed for pain. Ibuprofen 800 mg by mouth every 8 hours as needed for pain. Elevate the lower extremity on pillows above the level of the heart. Shower with antibacterial soap. Benadryl [id number] as needed for itching. Follow-up with your family practitioner Tuesday or Tuesday for recheck. Return to the emergency department for worsened and, drainage, redness , fever, chest pain, shortness of air, vomiting, headache, swelling of the face/ throat/tongue, difficulty swallowing, or any other concerns. Scripts Tramadol HCl (Tramadol HCl) 50 Mg Tablet 50 MG PO Q4H Y for pain, #14 TAB 0 Refills Prov: SOLO VELÁZQUEZ 03/05/17 Dapsone (Dapsone) 25 Mg Tablet 50 MG PO BID, #20 TAB 0 Refills Prov: SOLO VELÁZQUEZ 03/05/17 Sulfamethoxazole/Trimethoprim (Bactrim Ds Tablet) 1 Each Tablet 1 EACH PO BID, #14 TAB 0 Refills Prov: SOLO VELÁZQUEZ 03/05/17 SOLO VELÁZQUEZ Mar 05, 2017 15:06
[2017-03-05] MEDS ORDERED: DAPS25TA2 PO (15:20)
[2017-03-05] MEDS ORDERED: SULF1TAB35 PO (15:20)
[2017-03-05] MEDS ORDERED: TRAM50TA2 PO (15:20)
[2017-03-05 15:53] VITALS: BP 162/100
--- OUTSIDE RECORDS SUMMARY | 2017-03-06 02:22 | XMS REPORT ---
Author Author CARISA KHAN [facility] Address [address] [place] [address] Care Team Providers Care Health Aid Name Role Phone CARISA KHAN Unavailable PROBLEMS Type Condition ICD9-CM Code [id number] Code Onset Dates Condition Status SNOMED Code Problem Acute pharyngitis 462 Active 691596754 Problem Abdominal pain, other specified site 789.09 Active 15330145 Problem Acute sinusitis, unspecified 461.9 Active 16304288 Problem Other specified hypoglycemia 251.1 Active 744232251 Problem Other malaise and fatigue 780.79 Active 658251626 Problem Allergic rhinitis due to other allergen 477.8 Active 44647904 Problem Headache 784.0 Active 15588074 Problem Unspecified hypertrophic and atrophic condition of skin 701.9 Active 749355073 Problem Urinary tract infection, site not specified 599.0 Active 62860658 Problem Tension headache 307.81 Active 134021372 Problem Pain in soft tissues of limb 729.5 Active 54710005 Problem Essential hypertension, benign 401.1 Active 1447971 Problem Other specified disorders of liver 573.8 Active 305017670 Problem Acute upper respiratory infections of unspecified site 465.9 Active 53989121 Problem Dental examination Z01.20 Active 322044139 Problem Pain, unspecified R52 Active 942028434 Problem Screening for malignant neoplasm of the cervix V76.2 Active 719283998 Problem Special screening examination, human papillomavirus [HPV] V73.81 Active 067352888 Problem Obesity, unspecified 278.00 Active 997506179 Problem Hypertension I10 Active 94004194 Problem Viral illness B34.9 Active 07961622 Problem DM neuro manif type II E11.49 Active 79935340 Problem Hyperinsulinemia E16.1 Active 80664173 Problem Allergy, unspecified not elsewhere classified 995.3 Active 321519989 Problem Streptococcal sore throat 034.0 Active 44100468 Problem Acute bronchitis 466.0 Active 27993071 Problem Depressive disorder, not elsewhere classified 311 Active 21575974 Problem Other drug allergy 995.27 Active 792622316 Problem Need for prophylactic vaccination and inoculation, Influenza V04.81 Active 879954465 Problem Cough 786.2 Active 03933822 Problem Migraine, unspecified without mention of intractable migraine without mention of status migrainosus 346.90 Active 13507662 ALLERGIES Unknown Allergies SOCIAL HISTORY No smoking Hx information available PLAN OF CARE VITAL SIGNS MEDICATIONS Medication Instructions Dosage Frequency Start Date End Date Duration Status Trulicity 1.5 MG/0.5ML Subcutaneous once weekly inject 0.5 ml Oct, 90 days Active RESULTS No Results PROCEDURES No Known procedures IMMUNIZATIONS No Known Immunizations
--- OUTSIDE RECORDS SUMMARY | 2017-03-06 02:24 | XMS REPORT ---
Author Author KINGSLEY SANCHEZ [facility] Address [address] [place] [address] Care Team Providers Care Chimney Builder Brick Name Role Phone KINGSLEY SANCHEZ Unavailable PROBLEMS Type Condition ICD9-CM Code GPL25-CR Code Onset Dates Condition Status SNOMED Code Problem Acute pharyngitis 462 Active 902902444 Problem Abdominal pain, other specified site 789.09 Active 88326641 Problem Acute sinusitis, unspecified 461.9 Active 24697784 Problem Other specified hypoglycemia 251.1 Active 381201327 Problem Other malaise and fatigue 780.79 Active 672049416 Problem Allergic rhinitis due to other allergen 477.8 Active 18193214 Problem Headache 784.0 Active 25800588 Problem Unspecified hypertrophic and atrophic condition of skin 701.9 Active 624779251 Problem Urinary tract infection, site not specified 599.0 Active 39732638 Problem Tension headache 307.81 Active 814002178 Problem Pain in soft tissues of limb 729.5 Active 91810643 Problem Essential hypertension, benign 401.1 Active 9498631 Problem Other specified disorders of liver 573.8 Active 174375173 Problem Acute upper respiratory infections of unspecified site 465.9 Active 01825171 Problem Dental examination Z01.20 Active 154269230 Problem Pain, unspecified R52 Active 800361817 Problem Screening for malignant neoplasm of the cervix V76.2 Active 350856010 Problem Special screening examination, human papillomavirus [HPV] V73.81 Active 064474496 Problem Obesity, unspecified 278.00 Active 487168162 Problem Hypertension I10 Active 62756131 Problem Viral illness B34.9 Active 80046949 Problem DM neuro manif type II E11.49 Active 87930695 Problem Hyperinsulinemia E16.1 Active 48555738 Problem Allergy, unspecified not elsewhere classified 995.3 Active 854354983 Problem Streptococcal sore throat 034.0 Active 02006372 Problem Acute bronchitis 466.0 Active 91993657 Problem Depressive disorder, not elsewhere classified 311 Active 48739219 Problem Other drug allergy 995.27 Active 402628499 Problem Need for prophylactic vaccination and inoculation, Influenza V04.81 Active 648478764 Problem Cough 786.2 Active 75428626 Problem Migraine, unspecified without mention of intractable migraine without mention of status migrainosus 346.90 Active 16436274 ALLERGIES Substance Reaction Event Type Date Status Codeine Unknown Drug Allergy Jun, Active Red Onion Unknown Non Drug Allergy Jun, Active Chlorthalidone 25 Mg Tablet Unknown Non Drug Allergy Jun, Active Hydrochlorothiazide 25 Mg Tablet Unknown Non Drug Allergy Jun, Active SOCIAL HISTORY No smoking Hx information available PLAN OF CARE Activity Details Follow Up if not improving with PCP or reg follow up Reason: VITAL SIGNS Height 69 in 2016-06-30 Weight 343.0 lbs 2016-06-30 Temperature 97.4 degrees Fahrenheit 2016-06-30 BMI 50.65 kg/m2 2016-06-30 Blood pressure systolic 146 mmHg 2016-06-30 Blood pressure diastolic 82 mmHg 2016-06-30 MEDICATIONS Medication Instructions Dosage Frequency Start Date End Date Duration Status AZO Cranberry 250-30 MG Active Tylenol/Codeine #3 300-30 MG Orally every 6 hrs 1 tablet as needed 6h 30 May, 2016 Active Diltiazem HCl ER Beads 240 MG TAKE ONE CAPSULE BY MOUTH DAILY Active Doxycycline Hyclate 100 MG Orally every 12 hrs 1 capsule 12h Jun, Jun, 14 day(s) Active Metformin HCl 500 MG Orally 2 times a day 1 tablet with meals 12h 90 days Active Propranolol HCl 10 MG TAKE ONE TABLET BY MOUTH TWICE DAILY 30 Active Trulicity 1.5 MG/0.5ML Subcutaneous once weekly 0.5 ml Oct, Active Spironolactone 25 MG TAKE ONE TABLET BY MOUTH ONCE DAILY Active RESULTS No Results PROCEDURES Procedure Date Ordered Related Diagnosis Body Site Office Visit, Est Pt., Level 3 Jun 30, 2016 IMMUNIZATIONS No Known Immunizations
== END 2017-03-05 15:53 | disposition home or self-care (01) ==
LOC: EDUNIT# 13:38 → ER 13:40
DX: S80.861A Insect bite (nonvenomous), right lower leg, initial encounter (principal); I10 Essential (primary) hypertension; G43.909 Migraine, unspecified, not intractable, without status migrainosus; E11.9 Type 2 diabetes mellitus without complications; Z82.49 Family history of ischemic heart disease and other diseases of the circulatory system; Z79.84 Long term (current) use of oral hypoglycemic drugs; Z87.59 Personal history of other complications of pregnancy, childbirth and the puerperium; W57.XXXA Bitten or stung by nonvenomous insect and other nonvenomous arthropods, initial encounter
CPT/HCPCS: 99283

== ENCOUNTER 2017-09-04 10:34 | Emergency (ER) | payer MEDICAID, OTHER ==
[~2017-09-04] VITALS: Ht 175.3 cm; Wt 156.5 kg
[~2017-09-04 10:34] MED LIST changes: +ACHD5005 PO; +DAPS25TA2 PO; -HYDR-3812 PO; +TRAM50TA2 PO
--- OUTSIDE RECORDS SUMMARY | 2017-09-04 10:40 | XMS REPORT ---
Author Author CARISA KHAN [facility] Address [address] [place] [address] Care Team Providers Care Mva Reactor Operator Name Role Phone CARISA KHAN Unavailable PROBLEMS Type Condition ICD9-CM Code [id number] Code Onset Dates Condition Status SNOMED Code Problem Dental examination Z01.20 Active 091578994 Problem Pain, unspecified R52 Active 310871365 Problem Viral illness B34.9 Active 67231604 Problem Hypertension I10 Active 19675391 Problem DM neuro manif type II E11.49 Active 36036108 Problem Hyperinsulinemia E16.1 Active 91215951 ALLERGIES No Information SOCIAL HISTORY Never Assessed PLAN OF CARE VITAL SIGNS MEDICATIONS No Known Medications RESULTS No Results PROCEDURES No Known procedures IMMUNIZATIONS No Known Immunizations MEDICAL (GENERAL) HISTORY Type Description Date Medical History hypertension Surgical History x 3 Surgical History cholecystectomy Surgical History Chemical Stress Test, EKG, Echo 05/2016 Hospitalization History surgeries Hospitalization History UTI VC 05/2016
--- OUTSIDE RECORDS SUMMARY | 2017-09-04 10:40 | XMS REPORT ---
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 98135500 Problem Hyperinsulinemia E16.1 Active 77393313 ALLERGIES Substance Reaction Event Type Date Status Codeine Unknown Drug Allergy Aug, Active Red Onion Unknown Non Drug Allergy Aug, Active Chlorthalidone 25 Mg Tablet Unknown Non Drug Allergy Aug, Active Hydrochlorothiazide 25 Mg Tablet Unknown Non Drug Allergy Aug, Active SOCIAL HISTORY Never Assessed PLAN OF CARE Activity Details Follow Up 3 Months Reason:hyperinsulin VITAL SIGNS Height 69 in 2016-09-13 Weight 341.8 lbs 2016-09-13 Temperature 98.0 degrees Fahrenheit 2016-09-13 Heart Rate 84 bpm 2016-09-13 Respiratory Rate 20 2016-09-13 BMI 50.47 kg/m2 2016-09-13 Blood pressure systolic 138 mmHg 2016-09-13 Blood pressure diastolic 96 mmHg 2016-09-13 MEDICATIONS Medication Instructions Dosage Frequency Start Date End Date Duration Status Propranolol HCl 10 MG TAKE ONE TABLET BY MOUTH TWICE DAILY 30 Active Trulicity 1.5 MG/0.5ML Subcutaneous once weekly inject 0.5 ml Oct, 90 days Active Metformin HCl 500 MG Orally 2 times a day 1 tablet with meals 12h 90 Active Spironolactone 25 MG TAKE ONE TABLET BY MOUTH ONCE DAILY 30 Active Diltiazem HCl ER Beads 240 MG TAKE ONE CAPSULE BY MOUTH DAILY 30 Active Imitrex 50 MG Orally Twice a day 1 tablet as needed 12h Active RESULTS Name Result Date Reference Range A1C (IN HOUSE) 2016-09-13 A1C IN HOUSE 5.7 4.3 - 5.6 % Previous A1c 5.8 Lot [id number] Exp date 07/2017 MICROALBUMIN, URINE (IN HOUSE) 2016-09-13 MICROALBUMIN Normal Lot # [id number] Exp date 09/14/2017 Clarity Clear Color yellow ALB 10 CRE 100 A:C (IN HOUSE) <30 Control Control Lot # Exp date PROCEDURES Procedure Date Ordered Result Body Site GLYCATED HEMOGLOBIN TEST Sep 13, 2016 MICROALBUMIN, SEMIQUANT Sep 13, 2016 IMMUNIZATIONS No Known Immunizations MEDICAL (GENERAL) HISTORY Type Description Date Medical History hypertension Surgical History x 3 Surgical History cholecystectomy Surgical History Chemical Stress Test, EKG, Echo 05/2016 Hospitalization History surgeries Hospitalization History UTI VC 05/2016
--- OUTSIDE RECORDS SUMMARY | 2017-09-04 10:41 | XMS REPORT ---
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 38040449 Problem Hyperinsulinemia E16.1 Active 19430706 ALLERGIES Substance Reaction Event Type Date Status Codeine Unknown Drug Allergy Jun, Active Red Onion Unknown Non Drug Allergy Jun, Active Chlorthalidone 25 Mg Tablet Unknown Non Drug Allergy Jun, Active Hydrochlorothiazide 25 Mg Tablet Unknown Non Drug Allergy Jun, Active SOCIAL HISTORY No smoking Hx information available PLAN OF CARE Activity Details Follow Up 3 Months Reason:hyperinsulin VITAL SIGNS Height 69 in 2016-07-08 Weight 346 lbs 2016-07-08 Temperature 98.6 degrees Fahrenheit 2016-07-08 Heart Rate 82 bpm 2016-07-08 Respiratory Rate 22 2016-07-08 BMI 51.09 kg/m2 2016-07-08 Blood pressure systolic 140 mmHg 2016-07-08 Blood pressure diastolic 80 mmHg 2016-07-08 MEDICATIONS Medication Instructions Dosage Frequency Start Date End Date Duration Status Diltiazem HCl ER Beads 240 MG TAKE ONE CAPSULE BY MOUTH DAILY Active Trulicity 1.5 MG/0.5ML Subcutaneous once weekly 0.5 ml Oct, Active Spironolactone 25 MG TAKE ONE TABLET BY MOUTH ONCE DAILY Active Metformin HCl 500 MG Orally 2 times a day 1 tablet with meals 12h 90 days Active Propranolol HCl 10 MG TAKE ONE TABLET BY MOUTH TWICE DAILY 30 Active Imitrex 50 MG Orally Twice a day 1 tablet as needed 12h Active RESULTS Name Result Date Reference Range UA LONG DIP (IN HOUSE) 2016-07-08 Lot # [id number] Exp date 05/2017 Clarity Slightly cloudy Color Dark Yellow Odor strong GLU Negative ANNY Negative KET Negative SG 1.025 BLO Negative pH 7.0 Protein Negative URO 0.2 NIT Negative NIMISHA Negative Lot # Exp date Xray : Knee, Left 1-2 views (IN HOUSE) 2016-07-08 PROCEDURES Procedure Date Ordered Related Diagnosis Body Site URINALYSIS, AUTO, W/O SCOPE Jul 08, 2016 X-RAY EXAM OF KNEE, 1 OR 2 Jul 08, 2016 Office Visit, Est Pt., Level 3 Jul 08, 2016 IMMUNIZATIONS No Known Immunizations
--- OUTSIDE RECORDS SUMMARY | 2017-09-04 10:41 | XMS REPORT ---
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
--- OUTSIDE RECORDS SUMMARY | 2017-09-04 10:41 | XMS REPORT ---
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
--- OUTSIDE RECORDS SUMMARY | 2017-09-04 10:41 | XMS REPORT ---
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
[2017-09-04] MEDS ORDERED: diphenhydrAMINE 50 MG/ML INJ (BENADRYL) IV STA (11:05)
[2017-09-04] MEDS ORDERED: PROMETHAZINE INJ 25 MG/ML (PHENERGAN) AMP IVP STA (11:05)
[2017-09-04] MEDS ORDERED: KETOROLAC 30 MG/ML VIAL IVP STA (11:05)
[2017-09-04] MEDS ORDERED: NS IV 1000 ML 1,000 ML IV ONE (11:05)
--- NOTE | 2017-09-04 11:20 | ED Headache ---
General Chief Complaint: Head/Cervical Problems Stated Complaint: HEADACHE Nursing Triage Note: c/o headache. Onset 1.5 hrs ago. Pain started in occipital area. Nursing Sepsis Screen: No Definite Risk History of Present Illness Date Seen by Provider: Sep 04, 2017 Time Seen by Provider: 11:00 Initial Comments 42-year-old female reports for headache. She states that it is in the occipital lobe and radiates into her cervical spine. She's had a history of headaches and usually has about one a week. She took Imitrex this morning at 0830. She had a mild headache last night prior to going to bed. She took hydrocodone code and a Benadryl, she was able to sleep all night with no headache complaints. She awoke this morning with minimal headache, but as she was getting ready for headache began to get worse. She has had no hydrocodone, NSAIDS or acetaminophen products today. Timing/Duration: 1-3 hours Severity/Quality: moderate Location: occipital Prior Headaches/Recent Trauma: no recent headache/trauma, frequent headaches, chronic headaches Modifying Factors: improves with rest Associated Symptoms: No facial pain, No fever/chills, nausea/vomiting, No nasal congestion, No nasal drainage, No seizures, No sinus infection, No stiff neck, No vision changes Allergies and Home Medications Allergies Coded Allergies: codeine (Verified Allergy, Unknown, 10/29/14) hydrochlorothiazide (Verified Allergy, Unknown, 10/29/14) Home Medications Dapsone 25 Mg Tablet, 50 MG PO BID, #20 Ref 0 Prescribed by: SOLO VELÁZQUEZ on 03/05/17 1520 Diltiazem HCl 240 Mg Cap.er.24h, 240 MG PO DAILY, (Reported) Diphenhydramine HCl 25 Mg Tablet, 50 MG PO DAILY PRN for HEADACHE, (Reported) TAKES 2 (25 MG) TABLETS WITH IBUPROFEN NEEDED FOR HEADACHE Dulaglutide 1.5 Mg/0.5 Ml Pen.injctr, 1.5 MG SQ WEEK, (Reported) ON WEDNESDAYS Ibuprofen 200 Mg Tablet, 800 MG PO DAILY PRN for HEADACHE, (Reported) TAKES 4 (200 MG) TABLETS Metformin HCl 500 Mg Tablet, #180 (Reported) Propranolol HCl 10 Mg Tablet, 10 MG PO BID, (Reported) Spironolactone 25 Mg Tablet, 25 MG PO DAILY, (Reported) Sulfamethoxazole/Trimethoprim 1 Each Tablet, 1 EACH PO BID, #14 Ref 0 Prescribed by: SOLO VELÁZQUEZ on 03/05/17 1520 Sumatriptan Succinate 50 Mg Tab, 50 MG PO DAILY PRN for MIGRAINE, #9 Ref 1 Prescribed by: SHERIN TOURE on 06/14/16 1033 Tramadol HCl 50 Mg Tablet, 50 MG PO Q4H PRN for pain, #14 Ref 0 Prescribed by: SOLO VELÁZQUEZ on 03/05/17 1520 Constitutional: no symptoms reported, see HPI Psychiatric/Neurological: See HPI, Headache All Other Systems Reviewed Negative Unless Noted: Yes Past Cosufzt-Slapjd-Eqhwah Hx Patient Social History Alcohol Use: Denies Use Recreational Drug Use: No Smoking Status: Never a Smoker 2nd Hand Smoke Exposure: No Recent Foreign Travel: No Contact w/Someone Who Travel: No Recent Infectious Disease Expo: No Recent Hopitalizations: No Immunizations Up To Date Tetanus Booster (TDap): More than 5yrs Seasonal Allergies Seasonal Allergies: No Surgeries History of Surgeries: Yes Surgeries: Section, Gallbladder Respiratory History of Respiratory Disorde: Yes Respiratory Disorders: Pneumonia Currently Using CPAP: No Currently Using BIPAP: No Cardiovascular History of Cardiac Disorders: Yes (HEART MURMUR A CHILD) Cardiac Disorders: Heart Murmur, Hypertension Neurological History of Neurological Disord: Yes Neurological Disorders: Headaches /Migraines Reproductive System Hx Reproductive Disorders: No Sexually Transmitted Disease: No HIV/AIDS: No Gastrointestinal History of Gastrointestinal Di: No Musculoskeletal History of Musculoskeletal Dis: No Endocrine History of Endocrine Disorders: Yes (insulin resistent) Endocrine Disorders: Diabetes, Non-Insulin dep HEENT History of HEENT Disorders: No HEENT Disorders: Tonsilitis Cancer History of Cancer: No Psychosocial History of Psychiatric Problem: No Integumentary History of Skin or Integumenta: No Blood Transfusions History of Blood Disorders: No Adverse Reaction to a Blood Tr: No Reviewed Nursing Assessment Reviewed/Agree w Nursing PMH: Yes Family Medical History Significant Family History: No Pertinent Family Hx Family Medial History: Arthritis Asthma 19 FATHER (copd) 19 MOTHER (copd) Cardiovascular disease 19 FATHER (chf) Diabetes mellitus 19 FATHER Hypertension 19 FATHER 19 MOTHER G8 BROTHER G8 SISTER Physical Exam Vital Signs Vital Signs - First Documented 09/04/17 10:49 Temp 97.5 Pulse 97 Resp 18 B/P (MAP) 181/137 (152) Pulse Ox 98 O2 Delivery Room Air Capillary Refill : Less Than 3 Seconds General Appearance: WD/WN, no apparent distress, obese (BMI 50.9) HEENT: PERRL/EOMI, normal ENT inspection, TMs normal, pharynx normal, photophobia Neck: full range of motion, supple, normal inspection, No carotid bruit, No limited range of motion, No lymphadenopathy (R), No lymphadenopathy (L), tender lateral, No tender midline Cardiovascular: normal peripheral pulses, regular rate, rhythm, no murmur Respiratory: chest non-tender, lungs clear, normal breath sounds Gastrointestinal: normal bowel sounds, non tender, soft, No guarding, No rebound, No tenderness Back: normal inspection, no CVA tenderness Extremities: normal range of motion, non-tender, normal capillary refill Psychiatric: alert, oriented x 3 Crainal Nerves: normal hearing, normal speech, PERRL, No abnormal gag reflex, No abnormal pupil position, No facial asymmetry, No facial droop, No facial paresthesias, No facial weakness, other (cranial nerves II through XII grossly intact) Coordination/Gait: normal finger to nose, normal gait Motor/Sensory: no motor deficit, no sensory deficit, no pronator drift Skin: normal color, warm/dry Lymphatic: no adenopathy Progress/Results/Core Measures Results/Orders My Orders Orders - JIGAR CUEVAS Saline Lock/Iv-Start (09/04/17 11:05) Ns Iv 1000 Ml (Sodium Chloride 0.9%) (09/04/17 11:05) Promethazine Injection (Phenergan Injec (09/04/17 11:05) Ketorolac Injection (Toradol Injection) (09/04/17 11:05) Diphenhydramine Injection (Benadryl Inje (09/04/17 11:05) Medications Given in ED Current Medications Medications Dose Ordered Sig/Minerva Route Start Time Stop Time Status Last Admin Dose Admin Sodium Chloride 1,000 ml @ 0 mls/hr Q0M ONCE IV 09/04/17 11:05 09/04/17 11:07 DC 09/04/17 11:20 1,000 MLS/HR Vital Signs/I&O Vital Sign - Last 12Hours 09/04/17 09/04/17 09/04/17 10:49 11:20 13:05 Temp 97.5 97.5 97.5 Pulse 97 97 Resp 18 18 B/P (MAP) 181/137 (152) 138/92 (152) Pulse Ox 98 98 O2 Delivery Room Air Blood Pressure Mean: 152 Progress Note : Time: 11:00 Progress Note Initial evaluation completed, we'll continue to monitor blood pressure as her initial readings are 180s over 130s. She took diltiazem at 0800 this morning. We 'll give 1 L normal saline per IV, Toradol 30 mg IV, Phenergan 12.5 mg IV and Benadryl 50 mg IV. Continue to monitor. 1200 patient reports trace improvement in her symptoms at this point. Lead pressure has come down slightly, 148/104. Taking ice chips with no nausea or vomiting. 1245 agent reports she was able to sleep approximately 20 minutes, headache has improved. She has no further nausea or vomiting. Blood pressure is 130s over 90s. Discharge instructions and return precautions reviewed with her, all questions answered. Departure Impression Impression: Primary Impression: Tension type headache Qualified Codes: G44.201 - Tension-type headache, unspecified, intractable Additional Impression: Hypertension Qualified Codes: I10 - Essential (primary) hypertension Disposition: HOME, SELF-CARE Condition: Improved Departure-Patient Inst. Decision time for Depature: 13:00 Referrals: [facility] (PCP/Family) Primary Care Physician Patient Instructions: Headache, Adult (DC), High Blood Pressure (DC) Add. Discharge Instructions: Rest and increase fluids today. Use Imitrex as previously directed. Follow-up at [facility] with Diamante Bryant APRN this week. Return to emergency department for headache not relieved with treatment at home , seizure activity, visual changes, or new problems. All discharge instructions reviewed with patient and/or family. Voiced understanding. Copy Copies To 1: NAHOMY PETERSON AMY ARNP Sep 04, 2017 11:20
[2017-09-04 13:05] VITALS: BP 138/92
== END 2017-09-04 13:05 | disposition home or self-care (01) ==
LOC: EDUNIT# 10:34 → ER 10:35
DX: G44.201 Tension-type headache, unspecified, intractable (principal); I10 Essential (primary) hypertension; E11.9 Type 2 diabetes mellitus without complications; Z82.49 Family history of ischemic heart disease and other diseases of the circulatory system; Z88.5 Allergy status to narcotic agent; Z88.8 Allergy status to other drugs, medicaments and biological substances; Z79.84 Long term (current) use of oral hypoglycemic drugs; Z87.59 Personal history of other complications of pregnancy, childbirth and the puerperium; Z87.01 Personal history of pneumonia (recurrent)
CPT/HCPCS: 36556

== ENCOUNTER 2017-09-08 17:04 | Emergency (ER) | payer MEDICAID ==
[~2017-09-08] VITALS: Ht 175.3 cm; Wt 156.5 kg
[2017-09-08] MEDS ORDERED: AMLO10TA2 PO (17:39)
--- NOTE | 2017-09-08 17:58 | ED General ---
General Chief Complaint: General Problems/Pain Stated Complaint: HEADACHE/NEW RX/WEAKNESS Nursing Triage Note: PT REPORTS BEING SEEN IN ER ON TUESDAY FOR BAD HEADACHE, AND INSTRUCTED TO FOLLOW UP WITH PCP FOR ELEVATED BP. TUESDAY WAS SEEN BY [facility] FOR HEADACHE AND ELEVATED BP AND PRESCRIBED AMLODIPINE. TUESDAY REPORTS HAVING ABD DISCOMFORT, INTERMITTENT SOA, AND DIARRHEA. PT CONTINUES TO HAVE NAUSEA, INTERMITTENT SOA, AND HEADACHE AND KEEPS STATING "MY BODY JUST FEELS WEAK, AND NOT RIGHT", I'VE NEVER FELT LIKE THIS BEFORE." PT ANXIOUS AND TEARFUL AT THIS TIME WITH FACIAL FLUSHING. C/O SEVERE HEADACHE AND INTERMITTENT CHEST DISCOMFORT. DAUGHTER AT BEDSIDE Nursing Sepsis Screen: No Definite Risk History of Present Illness Date Seen by Provider: Sep 08, 2017 Time Seen by Provider: 17:53 Initial Comments Patient presents to the ER with complaints of headache, nausea, intermittent chest pain, patient is tearful on exam. Patient reports being seen in the emergency room this past Tuesday for elevated blood pressure. She went to the [facility] clinic on Tuesday for elevated blood pressure and was prescribed amlodipine. On Tuesday she developed diarrhea and mild abdominal pain. Timing/Duration: 1-3 Hours Severity: Mild Associated Systoms: Chest Pain, Headaches, Nausea/Vomiting Allergies and Home Medications Allergies Coded Allergies: codeine (Verified Allergy, Unknown, 10/29/14) hydrochlorothiazide (Verified Allergy, Unknown, 10/29/14) Home Medications Amlodipine Besylate 10 Mg Tablet, 10 MG PO HS, (Reported) Diltiazem HCl 240 Mg Cap.er.24h, 240 MG PO DAILY, (Reported) Diphenhydramine HCl 25 Mg Tablet, 50 MG PO DAILY PRN for HEADACHE, (Reported) TAKES 2 (25 MG) TABLETS WITH IBUPROFEN NEEDED FOR HEADACHE Dulaglutide 1.5 Mg/0.5 Ml Pen.injctr, 1.5 MG SQ WEEK, (Reported) ON WEDNESDAYS Ibuprofen 200 Mg Tablet, 800 MG PO DAILY PRN for HEADACHE, (Reported) TAKES 4 (200 MG) TABLETS Metformin HCl 500 Mg Tablet, #180 (Reported) Propranolol HCl 10 Mg Tablet, 10 MG PO BID, (Reported) Spironolactone 25 Mg Tablet, 25 MG PO DAILY, (Reported) Sumatriptan Succinate 50 Mg Tab, 50 MG PO DAILY PRN for MIGRAINE, #9 Ref 1 Prescribed by: SHERIN TOURE on 06/14/16 1033 Tramadol HCl 50 Mg Tablet, 50 MG PO Q4H PRN for pain, #14 Ref 0 Prescribed by: SOLO VELÁZQUEZ on 03/05/17 1520 Constitutional: malaise, weakness EENTM: see HPI, no symptoms reported Respiratory: no symptoms reported, see HPI Cardiovascular: see HPI, chest pain Gastrointestinal: diarrhea, nausea Genitourinary: no symptoms reported, see HPI Musculoskeletal: no symptoms reported, see HPI Skin: no symptoms reported, see HPI Psychiatric/Neurological: No Symptoms Reported, See HPI Hematologic/Lymphatic: No Symptoms Reported, See HPI Immunological/Allergic: no symptoms reported, see HPI Past Ibxevvp-Fsmotc-Wpxfwo Hx Patient Social History Alcohol Use: Denies Use Recreational Drug Use: No Smoking Status: Never a Smoker 2nd Hand Smoke Exposure: No Recent Foreign Travel: No Contact w/Someone Who Travel: No Recent Infectious Disease Expo: No Recent Hopitalizations: No Physical Abuse: No Sexual Abuse: No Mistreated: No Immunizations Up To Date Tetanus Booster (TDap): More than 5yrs Seasonal Allergies Seasonal Allergies: No Surgeries History of Surgeries: Yes Surgeries: Section, Gallbladder Respiratory History of Respiratory Disorde: Yes Respiratory Disorders: Pneumonia Currently Using CPAP: No Currently Using BIPAP: No Cardiovascular History of Cardiac Disorders: Yes (HEART MURMUR A CHILD) Cardiac Disorders: Heart Murmur, Hypertension Neurological History of Neurological Disord: Yes Neurological Disorders: Headaches /Migraines Reproductive System : No Hx Reproductive Disorders: No Sexually Transmitted Disease: No HIV/AIDS: No Gastrointestinal History of Gastrointestinal Di: No Musculoskeletal History of Musculoskeletal Dis: No Endocrine History of Endocrine Disorders: Yes (insulin resistent) Endocrine Disorders: Diabetes, Non-Insulin dep HEENT History of HEENT Disorders: No HEENT Disorders: Tonsilitis Cancer History of Cancer: No Psychosocial History of Psychiatric Problem: No Suicide Risk Score: 1 Integumentary History of Skin or Integumenta: No Blood Transfusions History of Blood Disorders: No Adverse Reaction to a Blood Tr: No Family Medical History Significant Family History: No Pertinent Family Hx Family Medial History: Arthritis Asthma 19 FATHER (copd) 19 MOTHER (copd) Cardiovascular disease 19 FATHER (chf) Diabetes mellitus 19 FATHER Hypertension 19 FATHER 19 MOTHER G8 BROTHER G8 SISTER Physical Exam Vital Signs Vital Signs - First Documented 09/08/17 17:27 Temp 98.5 Pulse 91 Resp 22 B/P (MAP) 161/106 (124) Pulse Ox 98 O2 Delivery Room Air Capillary Refill : Less Than 3 Seconds General Appearance: No Apparent Distress, Anxious, Obese HEENT: Moist Mucous Membranes, Pale Conjunctivae (L), Pale Conjunctivae (R) Neck: Full Range of Motion, Normal Inspection Respiratory: Chest Non Tender, Lungs Clear, Normal Breath Sounds, No Accessory Muscle Use, No Respiratory Distress Cardiovascular: Regular Rate, Rhythm, No Edema, No Gallop, No JVD, No Murmur, Normal Peripheral Pulses Gastrointestinal: Normal Bowel Sounds, No Organomegaly, No Pulsatile Mass, Non Tender, Soft Rectal: Deferred Extremity: Normal Capillary Refill, Normal Inspection, Normal Range of Motion, Non Tender Neurologic/Psychiatric: Alert, Oriented x3, Normal Mood/Affect Skin: Normal Color, Warm/Dry Progress/Results/Core Measures Suspected Sepsis Recent Fever Within 48 Hours: No Infection Criteria Present: None New/Unexplained Altered Menta: No Sepsis Screen: No Definite Risk Sepsis Diagnosis: SIRS Temperature:98.5 Pulse: 91 Respiratory Rate: 22 Laboratory Tests 09/08/17 17:52: White Blood Count 9.2 Blood Pressure 161 /106 Mean: 124 Laboratory Tests 09/08/17 17:52: Creatinine 0.75, Platelet Count 334, Total Bilirubin 0.5 Results/Orders Lab Results Laboratory Tests Test 09/08/17 17:00 09/08/17 17:52 09/08/17 18:45 Range/Units Lipase 28 8-78 U/L White Blood Count 9.2 4.3-11.0 10^3/uL Red Blood Count 5.05 4.35-5.85 10^6/uL Hemoglobin 12.0 11.5-16.0 G/DL Hematocrit 37 35-52 % Mean Corpuscular Volume 74 L 80-99 FL Mean Corpuscular Hemoglobin 24 L 25-34 PG Mean Corpuscular Hemoglobin Concent 32 32-36 G/DL Red Cell Distribution Width 15.8 H 10.0-14.5 % Platelet Count 334 130-400 10^3/uL Mean Platelet Volume 8.8 7.4-10.4 FL Neutrophils (%) (Auto) 64 42-75 % Lymphocytes (%) (Auto) 24 12-44 % Monocytes (%) (Auto) 8 0-12 % Eosinophils (%) (Auto) 3 0-10 % Basophils (%) (Auto) 0 0-10 % Neutrophils # (Auto) 5.9 1.8-7.8 X 10^3 Lymphocytes # (Auto) 2.3 1.0-4.0 X 10^3 Monocytes # (Auto) 0.8 0.0-1.0 X 10^3 Eosinophils # (Auto) 0.3 0.0-0.3 10^3/uL Basophils # (Auto) 0.0 0.0-0.1 10^3/uL Sodium Level 138 135-145 MMOL/L Potassium Level 4.2 3.6-5.0 MMOL/L Chloride Level 103 98-107 MMOL/L Carbon Dioxide Level 23 21-32 MMOL/L Anion Gap 12 5-14 MMOL/L Blood Urea Nitrogen 10 7-18 MG/DL Creatinine 0.75 0.60-1.30 MG/DL Estimat Glomerular Filtration Rate > 60 BUN/Creatinine Ratio 13 Glucose Level 109 H 70-105 MG/DL Calcium Level 9.7 8.5-10.1 MG/DL Total Bilirubin 0.5 0.1-1.0 MG/DL Aspartate Amino Transf (AST/SGOT) 19 5-34 U/L Alanine Aminotransferase (ALT/SGPT) 13 0-55 U/L Alkaline Phosphatase 47 40-136 U/L Troponin I < 0.30 <0.30 NG/ML Total Protein 7.7 6.4-8.2 GM/DL Albumin 4.0 3.2-4.5 GM/DL Urine Color YELLOW Urine Clarity CLEAR Urine pH 8 5-9 Urine Specific [place] 1.015 L 1.016-1.022 Urine Protein NEGATIVE NEGATIVE Urine Glucose (UA) NEGATIVE NEGATIVE Urine Ketones NEGATIVE NEGATIVE Urine Nitrite NEGATIVE NEGATIVE Urine Bilirubin NEGATIVE NEGATIVE Urine Urobilinogen NORMAL NORMAL MG/DL Urine Leukocyte Esterase 1+ H NEGATIVE Urine RBC (Auto) NEGATIVE NEGATIVE Urine RBC NONE /HPF Urine WBC 0-2 /HPF Urine Squamous Epithelial Cells 10-25 H /HPF Urine Crystals NONE /LPF Urine Bacteria MODERATE H /HPF Urine Casts NONE /LPF Urine Mucus NEGATIVE /LPF Urine Culture Indicated NO My Orders Orders - ALLEGRA VILLATORO APRN Ekg Tracing (09/08/17 18:49) Cardiac Profile 1 (09/08/17 17:49) Cbc With Automated Diff (09/08/17 17:49) Ua Culture If Indicated (09/08/17 17:49) Comprehensive Metabolic Panel (09/08/17 17:49) Vital Signs: Chest Pain (09/08/17 ) Telemetry (09/08/17 17:49) Ondansetron Injection (Zofran Injectio (09/08/17 18:00) Saline Lock/Iv-Start (09/08/17 17:49) Ns Iv 1000 Ml (Sodium Chloride 0.9%) (09/08/17 18:15) Lipase (09/08/17 18:01) Chest Pa/Lat (2 View) (09/08/17 18:01) Ketorolac Injection (Toradol Injection) (09/08/17 18:45) Medications Given in ED Current Medications Medications Dose Ordered Sig/Minerva Route Start Time Stop Time Status Last Admin Dose Admin Ketorolac Tromethamine 30 mg ONCE ONCE IVP 09/08/17 18:45 09/08/17 18:46 DC 09/08/17 19:11 30 MG Ondansetron HCl 4 mg ONCE ONCE IVP 09/08/17 18:00 09/08/17 18:01 DC 09/08/17 18:04 4 MG Vital Signs/I&O Vital Sign - Last 12Hours 09/08/17 17:27 Temp 98.5 Pulse 91 Resp 22 B/P (MAP) 161/106 (124) Pulse Ox 98 O2 Delivery Room Air Capillary Refill : Less Than 3 Seconds Blood Pressure Mean: 124 Departure Impression Impression: Primary Impression: Viral syndrome Disposition: HOME, SELF-CARE Condition: Stable Departure-Patient Inst. Decision time for Depature: 19:01 Referrals: [facility] (PCP/Family) Primary Care Physician Patient Instructions: VIRAL SYNDROME Add. Discharge Instructions: 1. REturn to ER for any concerns 2. Follow up with your doctor this week for recheck All discharge instructions reviewed with patient and/or family. Voiced understanding. Scripts Ondansetron (Zofran Odt) 8 Mg Tab.rapdis 8 MG PO Q6H for Nausea, #10 TAB Prov: ALLEGRA VILLATORO [employer] 09/08/17 ALLEGRA VILLATORO [employer] Sep 08, 2017 17:58
[2017-09-08 17:59] LABS: BASOPHILS % (AUTO) 0 % (0-10); EOSINOPHILS # (AUTO) 0.3 10^3/uL (0.0-0.3); EOSINOPHILS % (AUTO) 3 % (0-10); HEMATOCRIT 37 % (35-52); LYMPHOCYTES # (AUTO) 2.3 X 10^3 (1.0-4.0); LYMPHOCYTES % (AUTO) 24 % (12-44); MEAN CORPUSCULAR HEMOGLOBIN 24 PG (25-34); MEAN CORPUSCULAR HGB CONC 32 G/DL (32-36); MEAN CORPUSCULAR VOLUME 74 FL (80-99); MEAN PLATELET VOLUME 8.8 FL (7.4-10.4); MONOCYTES # (AUTO) 0.8 X 10^3 (0.0-1.0); MONOCYTES % (AUTO) 8 % (0-12); NEUTROPHILS # (AUTO) 5.9 X 10^3 (1.8-7.8); NEUTROPHILS % (AUTO) 64 % (42-75); PLATELET COUNT 334 10^3/uL (130-400); RED BLOOD COUNT 5.05 10^6/uL (4.35-5.85); RED CELL DISTRIBUTION WIDTH 15.8 % (10.0-14.5); WHITE BLOOD COUNT 9.2 10^3/uL (4.3-11.0)
[2017-09-08] MEDS ORDERED: ONDANSETRON 4 MG/2 ML (SDV) Z0FRAN IVP ONE (18:00)
[2017-09-08] MEDS ORDERED: NS IV 1000 ML 1,000 ML IV SCH (18:15)
[2017-09-08 18:19] LABS: ALANINE AMINOTRANSFERASE 13 U/L (0-55); ALKALINE PHOSPHATASE 47 U/L (40-136); BILIRUBIN,TOTAL 0.5 MG/DL (0.1-1.0); BUN/CREATININE RATIO 13; CALCIUM 9.7 MG/DL (8.5-10.1); CARBON DIOXIDE 23 MMOL/L (21-32); CHLORIDE 103 MMOL/L (98-107); CREATININE SERUM 0.75 MG/DL (0.60-1.30); GFR ESTIMATED > 60; GLUCOSE 109 MG/DL (70-105); POTASSIUM 4.2 MMOL/L (3.6-5.0); SODIUM 138 MMOL/L (135-145); TOTAL PROTEIN 7.7 GM/DL (6.4-8.2)
[2017-09-08] MEDS ORDERED: KETOROLAC 30 MG/ML VIAL IVP ONE (18:45)
[2017-09-08 18:52] LABS: BILIRUBIN,URINE NEGATIVE (NEGATIVE); CLARITY,URINE CLEAR; COLOR,URINE YELLOW; GLUCOSE, URINE (UA) NEGATIVE (NEGATIVE); KETONES,URINE NEGATIVE (NEGATIVE); LEUKOCYTE ESTERASE ,URINE 1+ (NEGATIVE); NITRITE,URINE NEGATIVE (NEGATIVE); PH,URINE 8 (5-9); PROTEIN,URINE NEGATIVE (NEGATIVE); UROBILINOGEN,URINE NORMAL (NORMAL)
--- NOTE | 2017-09-08 18:54 | Diagnostic Imaging Report ---
INDICATION: Chest pain with shortness of breath. Comparison is made with prior examination from 06/12/2016. FINDINGS: Heart size is normal. There is no pleural effusion, pneumothorax or pneumonia. Mediastinum is unremarkable. IMPRESSION: No acute cardiopulmonary abnormality Dictated by: Dictated on workstation # [id number]
[2017-09-08 18:59] LABS: BACTERIA,URINE MODERATE /HPF; WBC,URINE 0-2 /HPF
[2017-09-08 19:46] VITALS: BP 136/96
[2017-09-08] MEDS ORDERED: ONDA8TAB9 PO (19:51)
== END 2017-09-08 19:50 | disposition home or self-care (01) ==
LOC: EDUNIT# 17:04 → ER 17:05
DX: B34.9 Viral infection, unspecified (principal); I10 Essential (primary) hypertension; E11.9 Type 2 diabetes mellitus without complications; Z82.49 Family history of ischemic heart disease and other diseases of the circulatory system; Z88.5 Allergy status to narcotic agent; Z88.8 Allergy status to other drugs, medicaments and biological substances; Z79.84 Long term (current) use of oral hypoglycemic drugs; Z87.59 Personal history of other complications of pregnancy, childbirth and the puerperium; Z87.01 Personal history of pneumonia (recurrent)
CPT/HCPCS: 36415; 71046; 80053; 81000; 83690; 84484; 85025; 93005; 96361; 96374; 96375

== ENCOUNTER 2017-09-13 16:59 | Emergency (ER) | payer MEDICAID ==
[~2017-09-13] VITALS: Ht 175.3 cm; Wt 156.5 kg
[~2017-09-13 16:59] MED LIST changes: +AMLO10TA2 PO; +ONDA8TAB9 PO
[2017-09-13 17:32] LABS: BASOPHILS % (AUTO) 0 % (0-10); EOSINOPHILS # (AUTO) 0.2 10^3/uL (0.0-0.3); EOSINOPHILS % (AUTO) 2 % (0-10); HEMATOCRIT 40 % (35-52); HEMOGLOBIN 12.8 G/DL (11.5-16.0); LYMPHOCYTES # (AUTO) 2.7 X 10^3 (1.0-4.0); LYMPHOCYTES % (AUTO) 26 % (12-44); MEAN CORPUSCULAR HEMOGLOBIN 24 PG (25-34); MEAN CORPUSCULAR HGB CONC 32 G/DL (32-36); MEAN CORPUSCULAR VOLUME 73 FL (80-99); MEAN PLATELET VOLUME 9.1 FL (7.4-10.4); MONOCYTES # (AUTO) 0.9 X 10^3 (0.0-1.0); MONOCYTES % (AUTO) 9 % (0-12); NEUTROPHILS # (AUTO) 6.7 X 10^3 (1.8-7.8); NEUTROPHILS % (AUTO) 63 % (42-75); PLATELET COUNT 390 10^3/uL (130-400); RED BLOOD COUNT 5.42 10^6/uL (4.35-5.85); RED CELL DISTRIBUTION WIDTH 15.9 % (10.0-14.5); WHITE BLOOD COUNT 10.6 10^3/uL (4.3-11.0)
--- NOTE | 2017-09-13 17:39 | ED Abdominal Pain ---
General Chief Complaint: Abdominal/GI Problems Stated Complaint: SEVERE ABD PAIN Nursing Triage Note: AMB TO ROOM REPORTS HAS HAD ABD PAIN X1WEEK. WAS SEEN AT [facility] YESTERDAY STERTED ON BENTYL AND PROTONIX. WAS TOLD TODAY BY [facility] TO COME TO ER FOR CT SCAN. Sepsis Screen: No Definite Risk Source of Information: Patient Exam Limitations: No Limitations History of Present Illness Date Seen by Provider: Sep 13, 2017 Time Seen by Provider: 17:39 Allergies and Home Medications Allergies Coded Allergies: codeine (Verified Allergy, Unknown, 10/29/14) hydrochlorothiazide (Verified Allergy, Unknown, 10/29/14) Home Medications Amlodipine Besylate 10 Mg Tablet, 10 MG PO HS, (Reported) Diltiazem HCl 240 Mg Cap.er.24h, 240 MG PO DAILY, (Reported) Diphenhydramine HCl 25 Mg Tablet, 50 MG PO DAILY PRN for HEADACHE, (Reported) TAKES 2 (25 MG) TABLETS WITH IBUPROFEN NEEDED FOR HEADACHE Dulaglutide 1.5 Mg/0.5 Ml Pen.injctr, 1.5 MG SQ WEEK, (Reported) ON WEDNESDAYS Ibuprofen 200 Mg Tablet, 800 MG PO DAILY PRN for HEADACHE, (Reported) TAKES 4 (200 MG) TABLETS Ondansetron 8 Mg Tab.rapdis, 8 MG PO Q6H Prescribed by: ALLEGRA VILLATORO on 09/08/171950 Propranolol HCl 10 Mg Tablet, 10 MG PO BID, (Reported) Spironolactone 25 Mg Tablet, 25 MG PO DAILY, (Reported) Sumatriptan Succinate 50 Mg Tab, 50 MG PO DAILY PRN for MIGRAINE Prescribed by: SHERIN TOURE on 06/14/16 1033 Tramadol HCl 50 Mg Tablet, 50 MG PO Q4H PRN for pain Prescribed by: SOLO VELÁZQUEZ on 03/05/17 1520 Past Jprgygw-Bwxbsy-Iifayz Hx Patient Social History Alcohol Use: Denies Use Recreational Drug Use: No 2nd Hand Smoke Exposure: No Recent Foreign Travel: No Contact w/Someone Who Travel: No Recent Infectious Disease Expo: No Recent Hopitalizations: No Immunizations Up To Date Tetanus Booster (TDap): More than 5yrs Seasonal Allergies Seasonal Allergies: No Surgeries History of Surgeries: Yes Surgeries: Section, Gallbladder Respiratory History of Respiratory Disorde: Yes Respiratory Disorders: Pneumonia Currently Using CPAP: No Currently Using BIPAP: No Cardiovascular History of Cardiac Disorders: Yes (HEART MURMUR A CHILD) Cardiac Disorders: Heart Murmur, Hypertension Neurological History of Neurological Disord: Yes Neurological Disorders: Headaches /Migraines Reproductive System Hx Reproductive Disorders: No Sexually Transmitted Disease: No HIV/AIDS: No Gastrointestinal History of Gastrointestinal Di: No Musculoskeletal History of Musculoskeletal Dis: No Endocrine History of Endocrine Disorders: Yes (insulin resistent) Endocrine Disorders: Diabetes, Non-Insulin dep HEENT History of HEENT Disorders: No HEENT Disorders: Tonsilitis Cancer History of Cancer: No Psychosocial History of Psychiatric Problem: No Integumentary History of Skin or Integumenta: No Blood Transfusions History of Blood Disorders: No Adverse Reaction to a Blood Tr: No Family Medical History Significant Family History: No Pertinent Family Hx Family Medial History: Arthritis Asthma 19 FATHER (copd) 19 MOTHER (copd) Cardiovascular disease 19 FATHER (chf) Diabetes mellitus 19 FATHER Hypertension 19 FATHER 19 MOTHER G8 BROTHER G8 SISTER Physical Exam Vital Signs VS - Last 72 Hours, by Label 09/13/17 17:11 Temp 98.2 Pulse 107 Resp 18 B/P (MAP) 162/122 (135) Pulse Ox 97 Capillary Refill : Less Than 3 Seconds Progress/Results/Core Measures Results/Orders Lab Results Laboratory Tests Test 09/13/17 17:27 09/13/17 19:06 Range/Units White Blood Count 10.6 4.3-11.0 10^3/uL Red Blood Count 5.42 4.35-5.85 10^6/uL Hemoglobin 12.8 11.5-16.0 G/DL Hematocrit 40 35-52 % Mean Corpuscular Volume 73 L 80-99 FL Mean Corpuscular Hemoglobin 24 L 25-34 PG Mean Corpuscular Hemoglobin Concent 32 32-36 G/DL Red Cell Distribution Width 15.9 H 10.0-14.5 % Platelet Count 390 130-400 10^3/uL Mean Platelet Volume 9.1 7.4-10.4 FL Neutrophils (%) (Auto) 63 42-75 % Lymphocytes (%) (Auto) 26 12-44 % Monocytes (%) (Auto) 9 0-12 % Eosinophils (%) (Auto) 2 0-10 % Basophils (%) (Auto) 0 0-10 % Neutrophils # (Auto) 6.7 1.8-7.8 X 10^3 Lymphocytes # (Auto) 2.7 1.0-4.0 X 10^3 Monocytes # (Auto) 0.9 0.0-1.0 X 10^3 Eosinophils # (Auto) 0.2 0.0-0.3 10^3/uL Basophils # (Auto) 0.0 0.0-0.1 10^3/uL Sodium Level 137 135-145 MMOL/L Potassium Level 3.7 3.6-5.0 MMOL/L Chloride Level 102 98-107 MMOL/L Carbon Dioxide Level 25 21-32 MMOL/L Anion Gap 10 5-14 MMOL/L Blood Urea Nitrogen 8 7-18 MG/DL Creatinine 0.85 0.60-1.30 MG/DL Estimat Glomerular Filtration Rate > 60 BUN/Creatinine Ratio 9 Glucose Level 100 70-105 MG/DL Calcium Level 9.8 8.5-10.1 MG/DL Total Bilirubin 0.6 0.1-1.0 MG/DL Aspartate Amino Transf (AST/SGOT) 17 5-34 U/L Alanine Aminotransferase (ALT/SGPT) 18 0-55 U/L Alkaline Phosphatase 55 40-136 U/L C-Reactive Protein High Sensitivity 0.11 0.00-0.50 MG/DL Total Protein 8.4 H 6.4-8.2 GM/DL Albumin 4.5 3.2-4.5 GM/DL Lipase 24 8-78 U/L Serum Alcohol < 10 <10 MG/DL Urine Color YELLOW Urine Clarity SLIGHTLY CLOUDY Urine pH 5 5-9 Urine Specific [place] 1.010 L 1.016-1.022 Urine Protein 1+ H NEGATIVE Urine Glucose (UA) NEGATIVE NEGATIVE Urine Ketones 1+ H NEGATIVE Urine Nitrite NEGATIVE NEGATIVE Urine Bilirubin NEGATIVE NEGATIVE Urine Urobilinogen NORMAL NORMAL MG/DL Urine Leukocyte Esterase 1+ H NEGATIVE Urine RBC (Auto) NEGATIVE NEGATIVE Urine RBC NONE /HPF Urine WBC 0-2 /HPF Urine Squamous Epithelial Cells 25-50 H /HPF Urine Crystals NONE /LPF Urine Bacteria FEW H /HPF Urine Casts NONE /LPF Urine Mucus NEGATIVE /LPF Urine Culture Indicated NO Urine Opiates Screen NEGATIVE NEGATIVE Urine Oxycodone Screen NEGATIVE NEGATIVE Urine Methadone Screen NEGATIVE NEGATIVE Urine Propoxyphene Screen NEGATIVE NEGATIVE Urine Barbiturates Screen NEGATIVE NEGATIVE Ur Tricyclic Antidepressants Screen NEGATIVE NEGATIVE Urine Phencyclidine Screen NEGATIVE NEGATIVE Urine Amphetamines Screen NEGATIVE NEGATIVE Urine Methamphetamines Screen NEGATIVE NEGATIVE Urine Benzodiazepines Screen NEGATIVE NEGATIVE Urine Cocaine Screen NEGATIVE NEGATIVE Urine Cannabinoids Screen NEGATIVE NEGATIVE My Orders Orders - SOLO VELÁZQUEZ Alcohol (09/13/17 17:10) Cbc With Automated Diff (09/13/17 17:10) Comprehensive Metabolic Panel (09/13/17 17:10) Hs C Reactive Protein (09/13/17 17:10) Drug Screen Stat (Urine) (09/13/17 17:10) Lipase (09/13/17 17:10) Ua Culture If Indicated (09/13/17 17:10) Saline Lock/Iv-Start (09/13/17 17:10) Ns Iv 1000 Ml (Sodium Chloride 0.9%) (09/13/17 17:50) Ondansetron Injection (Zofran Injectio (09/13/17 18:00) Hyoscyamine Sl Tablet (Levsin Sl Tablet) (09/13/17 18:00) Ketorolac Injection (Toradol Injection) (09/13/17 17:50) Ct Abdomen/Pelvis W (09/13/17 17:50) Iohexol Injection (Omnipaque 350 Mg/Ml 1 (09/13/17 18:00) Ns (Ivpb) (Sodium Chloride 0.9% Ivpb Bag (09/13/17 18:00) Albuterol/Ipra Inhalation Soln (Duoneb I (09/13/17 18:30) Svn Sm Volume Nebulizer Rt-Rfs (09/13/17 18:17) Medications Given in ED Current Medications Medications Dose Ordered Sig/Minerva Route Start Time Stop Time Status Last Admin Dose Admin Hyoscyamine Sulfate 0.125 mg ONCE ONCE SL 09/13/17 18:00 09/13/17 18:01 DC 09/13/17 18:03 0.125 MG Iohexol 100 ml ONCE ONCE IV 09/13/17 18:00 09/13/17 18:01 DC 09/13/17 18:27 100 ML Ondansetron HCl 4 mg ONCE ONCE IVP 09/13/17 18:00 09/13/17 18:01 DC 09/13/17 18:03 4 MG Sodium Chloride 100 ml ONCE ONCE IV 09/13/17 18:00 09/13/17 18:01 DC 09/13/17 18:27 100 ML Sodium Chloride 1,000 ml @ 0 mls/hr Q0M ONCE IV 09/13/17 17:50 09/13/17 17:52 DC 09/13/17 18:04 1,000 MLS/HR Vital Signs/I&O Vital Sign - Last 12Hours 09/13/17 17:11 Temp 98.2 Pulse 107 Resp 18 B/P (MAP) 162/122 (135) Pulse Ox 97 Blood Pressure Mean: 135 Departure Impression Impression: Primary Impression: Volume depletion Additional Impressions: Diarrhea Nausea Disposition: 01 HOME, SELF-CARE Condition: Improved Departure-Patient Inst. Decision time for Depature: 20:13 Referrals: [facility] (PCP) Primary Care Physician CARISA KHAN (Family) Primary Care Physician Patient Instructions: Dehydration, Adult (DC), Diarrhea in Adolescents and Adults, Viral Gastroenteritis, Adult (DC) Add. Discharge Instructions: All discharge instructions reviewed with patient and/or family. Voiced understanding. Medications as instructed. Tylenol Extra Strength [id number] as directed for pain. Clear liquid diet until symptoms improve, then increase diet slowly to a low-fat , bland diet. Avoid fruits and vegetables until symptoms improve. Alternating water and Powerade/Gatorade. Follow[facility] with [facility] tomorrow or for recheck, call tomorrow morning for appointment time. Return to the emergency department for worsened symptoms, fever, vomiting blood , black stools, rectal bleeding, or any other concerns. Scripts Hyoscyamine Sulfate (Levsin-Sl) 0.125 Mg Tab.subl 0.125 MG SL Q6H Y for CRAMPS, #20 TAB 0 Refills Prov: SOLO VELÁZQUEZ 09/13/17 Ondansetron (Ondansetron Odt) 8 Mg Tab.rapdis 8 MG PO Q6H Y for NAUSEA/VOMITING-1ST LINE, #10 TAB 0 Refills Prov: SOLO VELÁZQUEZ 09/13/17 SOLO VELÁZQUEZ Sep 13, 2017 17:39
[2017-09-13] MEDS ORDERED: DICY20TA10 (17:41)
[2017-09-13] MEDS ORDERED: LOSA50TA36 (17:41)
[2017-09-13] MEDS ORDERED: NS IV 1000 ML 1,000 ML IV ONE (17:50)
[2017-09-13] MEDS ORDERED: KETOROLAC 30 MG/ML VIAL IVP STA (17:50)
[2017-09-13 17:53] LABS: ALANINE AMINOTRANSFERASE 18 U/L (0-55); ALBUMIN 4.5 GM/DL (3.2-4.5); ALKALINE PHOSPHATASE 55 U/L (40-136); BILIRUBIN,TOTAL 0.6 MG/DL (0.1-1.0); BUN/CREATININE RATIO 9; CALCIUM 9.8 MG/DL (8.5-10.1); CARBON DIOXIDE 25 MMOL/L (21-32); CHLORIDE 102 MMOL/L (98-107); CREATININE SERUM 0.85 MG/DL (0.60-1.30); GFR ESTIMATED > 60; GLUCOSE 100 MG/DL (70-105); LIPASE 24 U/L (8-78); POTASSIUM 3.7 MMOL/L (3.6-5.0); SODIUM 137 MMOL/L (135-145); TOTAL PROTEIN 8.4 GM/DL (6.4-8.2)
[2017-09-13] MEDS ORDERED: IOHEXOL 350 MG/ML 100 ML (OMNIPAQUE 350) VIAL IV ONE (18:00)
[2017-09-13] MEDS ORDERED: NS 100 ML (IVPB) BAG IV ONE (18:00)
[2017-09-13] MEDS ORDERED: ONDANSETRON 4 MG/2 ML (SDV) Z0FRAN IVP ONE (18:00)
[2017-09-13] MEDS ORDERED: HYOSCYAMINE 0.125 MG (LEVSIN) TAB SL ONE (18:00)
[2017-09-13] MEDS ORDERED: RT-ALBUTEROL/IPRATROPIUM 3 ML (DUONEB) VIAL INH ONE (18:30)
--- NOTE | 2017-09-13 18:51 | Diagnostic Imaging Report ---
PROCEDURE: CT abdomen and pelvis with contrast. TECHNIQUE: Multiple contiguous axial images were obtained through the abdomen and pelvis after administration of intravenous contrast. DATE: September 13, 2017. COMPARISON: CT abdomen and pelvis February 05, 2017. INDICATION: 42-year-old female, abdominal pain. FINDINGS: The visualized portions of the lung bases are clear. The heart is not enlarged. There is no identified pericardial effusion. There is a low-attenuation lesion adjacent to the posterior aspect of the right lobe of the liver on axial image 37 measuring 1.7 cm in size with internal attenuation of -5 Hounsfield units compatible with benign cystic lesion. There is no additional identified liver lesion. The main, right, and left portal veins are patent. The patient is status post cholecystectomy. There is no intrahepatic or extrahepatic bile duct dilation. The main pancreatic duct is not abnormally dilated. The pancreatic parenchyma is unremarkable. The spleen is not enlarged. The adrenal glands are unremarkable. Unremarkable appearance of the renal parenchyma. The urinary collecting systems are not distended. There is no identified renal or ureteral stone. The urinary bladder is unremarkable in appearance. Grossly unremarkable CT appearance of the uterus and adnexa for patient age. The intestinal tract is not distended. The appendix is well seen on axial image 54 and adjacent sequential images. There is no evidence of acute appendicitis. There is a low-attenuation rounded lesion in the peritoneal cavity on axial image 47 measuring 1.4 cm in size which is stable since at least May 16, 2013. This is compatible with a benign lesion. There is a small fat-containing umbilical hernia. There is no free intraperitoneal air. There is no drainable fluid collection. There is no free pelvic fluid. There is no identified abnormally enlarged lymph node within the abdomen or pelvis which meets CT size criteria for adenopathy. 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 There is no identified bone erosion or ankylosis at the sacroiliac joints. There are degenerative changes of the spine. There is no identified acute bony abnormality. IMPRESSION: CT ABDOMEN AND PELVIS. 1. No identified acute abnormality in the abdomen or pelvis. 2. Stable benign cystic lesion subjacent to the posterior margin of the right liver as well as cystic lesion within the peritoneal cavity. Dictated by: Dictated on workstation # [id number]
[2017-09-13 19:11] LABS: BILIRUBIN,URINE NEGATIVE (NEGATIVE); CLARITY,URINE SLIGHTLY CLOUDY; COLOR,URINE YELLOW; GLUCOSE, URINE (UA) NEGATIVE (NEGATIVE); KETONES,URINE 1+ (NEGATIVE); LEUKOCYTE ESTERASE ,URINE 1+ (NEGATIVE); NITRITE,URINE NEGATIVE (NEGATIVE); PH,URINE 5 (5-9); PROTEIN,URINE 1+ (NEGATIVE); UROBILINOGEN,URINE NORMAL (NORMAL)
[2017-09-13 19:37] LABS: AMPHETAMINE SCREEN, URINE NEGATIVE (NEGATIVE); BARBITURATE SCREEN URINE NEGATIVE (NEGATIVE); BENZODIAZEPINES SCREEN URINE NEGATIVE (NEGATIVE); CANNABINOID SCREEN, URINE NEGATIVE (NEGATIVE); COCAINE SCREEN URINE NEGATIVE (NEGATIVE); METHADONE STAT NEGATIVE (NEGATIVE); METHAMPHETAMINE SCREEN URINE S NEGATIVE (NEGATIVE); OPIATE SCREEN URINE NEGATIVE (NEGATIVE); OXYCODONE STAT NEGATIVE (NEGATIVE); PROPOXYPHENE STAT NEGATIVE (NEGATIVE); TRICYCLIC ANTIDEPRESSANTS SCRE NEGATIVE (NEGATIVE)
[2017-09-13 19:39] LABS: BACTERIA,URINE FEW /HPF; SQUAMOUS EPITHELIAL CELL,UR 25-50 /HPF; WBC,URINE 0-2 /HPF
[2017-09-13] MEDS ORDERED: HYOS0.1283 SL (20:15)
[2017-09-13] MEDS ORDERED: ONDA8TAB13 PO (20:15)
[2017-09-13 20:25] VITALS: BP 145/90
== END 2017-09-13 20:21 | disposition home or self-care (01) ==
LOC: EDUNIT# 16:59 → ER 17:01
DX: E86.9 Volume depletion, unspecified (principal); R19.7 Diarrhea, unspecified; R11.0 Nausea; I10 Essential (primary) hypertension; G43.909 Migraine, unspecified, not intractable, without status migrainosus; E11.9 Type 2 diabetes mellitus without complications; Z82.49 Family history of ischemic heart disease and other diseases of the circulatory system; Z88.5 Allergy status to narcotic agent; Z88.8 Allergy status to other drugs, medicaments and biological substances; Z87.59 Personal history of other complications of pregnancy, childbirth and the puerperium; Z87.01 Personal history of pneumonia (recurrent)
CPT/HCPCS: 36415; 74177; 80053; 80306; 80320; 81000; 83690; 85025; 86141; 96361; 96374; 96375

== ENCOUNTER → 2017-10-04 | Outpatient (CLI) | payer MEDICAID ==
[~2017-10-04] MED LIST changes: +DICY20TA10; +HYOS0.1283 SL; +LOSA50TA36; +ONDA8TAB13 PO
--- NOTE | 2017-10-04 14:35 | Diagnostic Imaging Report ---
EXAMINATION: Pelvic ultrasound. INDICATION: Menorrhagia. FINDINGS: There are no previous pelvic ultrasound examinations available for comparison. The CT abdomen/pelvis exam of 09/13/2017 failed to show any sign of an acute abnormality of the pelvis. On this study, the uterus is mildly enlarged and nongravid measuring 9.9 x 6.0 x 5.2 cm. There is no focal mass involving the uterus. The endometrium is thickened measuring 10 mm (normal 5 mm or less). This finding is nonspecific, however. Correlation with the patient's menstrual cycle would be recommended. The right ovary was identified and was unremarkable. There is blood flow to the right ovary, and there is no sign of torsion. The left ovary could not be visualized. There is no pelvic mass or free fluid collection evident. IMPRESSION: 1. The uterus is mildly enlarged. There is no focal mass involving the uterus to suggest a fibroid, however. 2. There is no acute pelvic abnormality noted. 3. The left ovary was not visualized. Dictated by: Dictated on workstation # [id number]
== END ==
LOC: RAD 09:43
PROVIDERS: ATTEND Nurse Practitioner Community Health
DX: N85.2 Hypertrophy of uterus (principal)
CPT/HCPCS: 76830; 76856

== ENCOUNTER → 2017-11-02 | Outpatient (CLI) | payer MEDICAID ==
[~2017-11-02] MED LIST changes: +DICY20TA10 PO; +FAMO40TA72 PO; +FLUT9.9S NS; +LORA10TA76 PO; -LOSA50TA36; +LOSA50TA36 PO; +MELO7.5T46 PO; -METF500T4; +METF500T5 PO; +ONDA4TAB8 PO; +PANT40TA3 PO; +SPIR25TA5 PO
--- NOTE | 2017-11-02 20:08 | Diagnostic Imaging Report ---
PROCEDURE: US left lower extremity venous. TECHNIQUE: Multiple real-time grayscale images were obtained over the left lower extremity in various projections. Additional duplex Doppler and color Doppler images were also obtained. INDICATION: Left leg pain FINDINGS: The veins in the left leg were compressible and had normal spontaneous and augmented flow. IMPRESSION: Negative venous Doppler of the left leg. Dictated by: Dictated on workstation # [id number]
== END ==
LOC: RAD 19:11
PROVIDERS: ATTEND Nurse Practitioner Family
DX: M79.605 Pain in left leg (principal)

== ENCOUNTER 2017-12-04 23:22 | Emergency (ER) | payer MEDICAID ==
[~2017-12-04] VITALS: Ht 172.7 cm; Wt 152.0 kg
[~2017-12-04 23:22] MED LIST changes: -DICY20TA10 PO; -FAMO40TA72 PO; -FLUT9.9S NS; -LORA10TA76 PO; +LOSA50TA36; -LOSA50TA36 PO; -MELO7.5T46 PO; +METF500T5; -METF500T5 PO; -ONDA4TAB8 PO; -PANT40TA3 PO; -SPIR25TA5 PO
[2017-12-05] MEDS ORDERED: KETOROLAC 30 MG/ML VIAL IVP STA (01:04)
[2017-12-05] MEDS ORDERED: LACTATED RINGERS 1,000 ML IV ONE (01:04)
--- NOTE | 2017-12-05 01:10 | ED Abdominal Pain ---
General Chief Complaint: Abdominal/GI Problems Stated Complaint: L SIDE PAIN/VOMITING/DIARRHEA Nursing Triage Note: PATIENT STATES THAT SHE STARTED HAVING DIARRHEA LAST NIGHT FOLLOWED BY SOME VOMITTING TODAY. SHE ALSO COMPLAINS OF PAIN ON HER LEFT SIDE. Sepsis Screen: No Definite Risk Source of Information: Patient History of Present Illness Date Seen by Provider: December 05, 2017 Time Seen by Provider: 00:50 Initial Comments PT ARRIVES VIA POV FROM HOME STATES SHE STARTED HAVING DIARRHEA AROUND 2200 LAST PM 12/03/17 BEGAN VOMITING AROUND 0400 THEN BEGAN HAVING SHARP LUQ /LEFT LATERAL UPPER ABDOMEN PAIN OFF AND ON TODAY STATES SHE HAS HAD DIARRHEA X 8--NO BLACK/BLOODY/TARRY STOOLS HAS VOMITED X 2, BUT IS KEEPING WATER / LIQUIDS DOWN AND SOME RICE NO FEVER, BUT HAS FELT HOT AND CHILLS AT TIMES HAD SAME SYMPTOMS A COUPLE OF MONTHS AGO, AND WAS PRESCRIBED BENTYL--TOOK 1 LAST PM AND 1 EARLIER TODAY, TOOK ZOFRAN X 1 LAST PM, TOOK PANTOPRAZOLE AT BEDTIME NO KNOWN SICK CONTACTS OR SUSPICIOUS FOODS LMP 11/25/17. NORMAL. NO CONTROL IS TO HAVE HYST/BSO 01/13 FOR MENORRHAGIA AND OVARIAN CYSTS MULTIPLE VISITS FOR VARIOUS COMPLAINTS PCP: [facility], [employer] ENGINE[employer] CARISA KHAN Allergies and Home Medications Allergies Coded Allergies: codeine (Verified Allergy, Unknown, 10/29/14) hydrochlorothiazide (Verified Allergy, Unknown, 10/29/14) Home Medications Amlodipine Besylate 10 Mg Tablet, 10 MG PO HS, (Reported) Dicyclomine HCl 20 Mg Tablet, 20 MG PO Q6H Prescribed by: ANDREEA WASHINGTON on 12/05/17 0244 Diltiazem HCl 240 Mg Cap.er.24h, 240 MG PO DAILY, (Reported) Diphenhydramine HCl 25 Mg Tablet, 50 MG PO DAILY PRN for HEADACHE, (Reported) TAKES 2 (25 MG) TABLETS WITH IBUPROFEN NEEDED FOR HEADACHE Dulaglutide 1.5 Mg/0.5 Ml Pen.injctr, 1.5 MG SQ WEEK, (Reported) ON WEDNESDAYS Hyoscyamine Sulfate 0.125 Mg Tab.subl, 0.125 MG SL Q6H PRN for CRAMPS Prescribed by: SOLO VELÁZQUEZ on 09/13/172014 Hyoscyamine Sulfate 0.125 Mg Tab.subl, 1-2 TAB SL Q4H Prescribed by: ANDREEA WASHINGTON on 12/05/17 0244 Ibuprofen 200 Mg Tablet, 800 MG PO DAILY PRN for HEADACHE, (Reported) TAKES 4 (200 MG) TABLETS Ondansetron 8 Mg Tab.rapdis, 8 MG PO Q6H Prescribed by: ALLEGRA VILLATORO on 09/08/171950 Ondansetron 8 Mg Tab.rapdis, 8 MG PO Q6H PRN for NAUSEA/VOMITING-1ST LINE Prescribed by: SOLO VELÁZQUEZ on 09/13/172014 Ondansetron 4 Mg Tab.rapdis, 4 MG PO Q4H Prescribed by: ANDREEA WASHINGTON on 12/05/17 0244 Propranolol HCl 10 Mg Tablet, 10 MG PO BID, (Reported) Spironolactone 25 Mg Tablet, 25 MG PO DAILY, (Reported) Sumatriptan Succinate 50 Mg Tab, 50 MG PO DAILY PRN for MIGRAINE Prescribed by: SHERIN TOURE on 06/14/16 1033 Tramadol HCl 50 Mg Tablet, 50 MG PO Q4H PRN for pain Prescribed by: SOLO VELÁZQUEZ on 03/05/17 1520 Patient Home Medication List Home Medication List Reviewed: Yes Review of Systems Constitutional: see HPI EENTM: No Symptoms Reported Respiratory: No Symptoms Reported Cardiovascular: No Symptoms Reported Gastrointestinal: See HPI, Abdominal Pain, Diarrhea, Nausea, Poor Appetite; Denies Poor Fluid Intake; Vomiting Genitourinary: No Symptoms Reported Musculoskeletal: no symptoms reported; No back pain Skin: no symptoms reported Psychiatric/Neurological: No Symptoms Reported Endocrine: No Symptoms Reported Hematologic/Lymphatic: No Symptoms Reported Past Gaexhoo-Udmnbs-Efoeab Hx Patient Social History Alcohol Use: Denies Use Recreational Drug Use: No Smoking Status: Never a Smoker 2nd Hand Smoke Exposure: No Recent Foreign Travel: No Contact w/Someone Who Travel: No Recent Infectious Disease Expo: No Recent Hopitalizations: No Physical Abuse: No Sexual Abuse: No Immunizations Up To Date Tetanus Booster (TDap): More than 5yrs Seasonal Allergies Seasonal Allergies: No Past Medical History Surgeries: Yes Section, Gallbladder Respiratory: Yes Pneumonia Currently Using CPAP: No Currently Using BIPAP: No Cardiac: Yes (HEART MURMUR A CHILD) Heart Murmur, Hypertension Neurological: Yes Headaches /Migraines Reproductive Disorders: No Sexually Transmitted Disease: No HIV/AIDS: No Gastrointestinal: No Musculoskeletal: No Endocrine: Yes (MORBID OBESTIY, INSULIN RESISTANCE) Diabetes, Non-Insulin dep HEENT: Yes Tonsilitis Cancer: No Psychosocial: No Nursing Suicide Risk Score: 0 Integumentary: No Blood Disorders: No Adverse Reaction/Blood Tranf: No Family Medical History Arthritis Asthma 19 FATHER (copd) 19 MOTHER (copd) Cardiovascular disease 19 FATHER (chf) Diabetes mellitus 19 FATHER Hypertension 19 FATHER 19 MOTHER G8 BROTHER G8 SISTER No Pertinent Family Hx Physical Exam Vital Signs Vital Signs - First Documented 12/05/17 00:41 Temp 97.8 Pulse 96 Resp 18 B/P (MAP) 179/130 (146) Pulse Ox 97 Capillary Refill : Less Than 3 Seconds General Appearance: no apparent distress, obese (MORBIDLY), other (MALODOROUS) Respiratory: normal breath sounds, no respiratory distress, no accessory muscle use Cardiovascular: regular rate, rhythm, no edema, no JVD, no murmur Gastrointestinal: normal bowel sounds, soft; No distended, No guarding, No rebound; tenderness (LUQ); No hernia, No mass Extremities: normal inspection, no pedal edema, normal capillary refill Back: normal inspection, no CVA tenderness 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, no motor/sensory deficits, alert, oriented x 3 Skin: normal color, warm/dry; No rash Progress/Results/Core Measures Results/Orders Lab Results Laboratory Tests Test 12/05/17 01:05 12/05/17 02:10 Range/Units White Blood Count 5.6 4.3-11.0 10^3/uL Red Blood Count 5.01 4.35-5.85 10^6/uL Hemoglobin 11.9 11.5-16.0 G/DL Hematocrit 38 35-52 % Mean Corpuscular Volume 76 L 80-99 FL Mean Corpuscular Hemoglobin 24 L 25-34 PG Mean Corpuscular Hemoglobin Concent 31 L 32-36 G/DL Red Cell Distribution Width 16.7 H 10.0-14.5 % Platelet Count 299 130-400 10^3/uL Mean Platelet Volume 9.0 7.4-10.4 FL Neutrophils (%) (Auto) 65 42-75 % Lymphocytes (%) (Auto) 19 12-44 % Monocytes (%) (Auto) 10 0-12 % Eosinophils (%) (Auto) 6 0-10 % Basophils (%) (Auto) 0 0-10 % Neutrophils # (Auto) 3.7 1.8-7.8 X 10^3 Lymphocytes # (Auto) 1.1 1.0-4.0 X 10^3 Monocytes # (Auto) 0.6 0.0-1.0 X 10^3 Eosinophils # (Auto) 0.3 0.0-0.3 10^3/uL Basophils # (Auto) 0.0 0.0-0.1 10^3/uL Sodium Level 140 135-145 MMOL/L Potassium Level 3.8 3.6-5.0 MMOL/L Chloride Level 105 98-107 MMOL/L Carbon Dioxide Level 25 21-32 MMOL/L Anion Gap 10 5-14 MMOL/L Blood Urea Nitrogen 8 7-18 MG/DL Creatinine 0.79 0.60-1.30 MG/DL Estimat Glomerular Filtration Rate > 60 BUN/Creatinine Ratio 10 Glucose Level 126 H 70-105 MG/DL Calcium Level 8.3 L 8.5-10.1 MG/DL Total Bilirubin 0.4 0.1-1.0 MG/DL Aspartate Amino Transf (AST/SGOT) 19 5-34 U/L Alanine Aminotransferase (ALT/SGPT) 16 0-55 U/L Alkaline Phosphatase 56 40-136 U/L Total Protein 7.3 6.4-8.2 GM/DL Albumin 4.1 3.2-4.5 GM/DL Amylase Level 44 25-125 U/L Lipase 28 8-78 U/L Urine Color YELLOW Urine Clarity CLEAR Urine pH 6 5-9 Urine Specific [place] 1.020 1.016-1.022 Urine Protein 1+ H NEGATIVE Urine Glucose (UA) NEGATIVE NEGATIVE Urine Ketones NEGATIVE NEGATIVE Urine Nitrite NEGATIVE NEGATIVE Urine Bilirubin NEGATIVE NEGATIVE Urine Urobilinogen 4 H NORMAL MG/DL Urine Leukocyte Esterase 1+ H NEGATIVE Urine RBC (Auto) NEGATIVE NEGATIVE Urine RBC NONE /HPF Urine WBC RARE /HPF Urine Squamous Epithelial Cells 25-50 H /HPF Urine Crystals NONE /LPF Urine Bacteria TRACE /HPF Urine Casts NONE /LPF Urine Mucus NEGATIVE /LPF Urine Culture Indicated NO Urine Test NEGATIVE NEGATIVE My Orders Orders - FELIXCAINA K DO Saline Lock/Iv-Start (12/05/17 01:04) Amylase (12/05/17 01:04) Cbc With Automated Diff (12/05/17 01:04) Comprehensive Metabolic Panel (12/05/17 01:04) Hcg,Qualitative Urine (12/05/17 01:04) Lipase (12/05/17 01:04) Ua Culture If Indicated (12/05/17 01:04) Ct Abd/Pelvis Wo(Kidney Stone) (12/05/17 01:04) Acute Abd Series (12/05/17 01:04) Saline Lock/Iv-Start (12/05/17 01:04) Lactated Ringers (Lr 1000 Ml Iv Solution (12/05/17 01:04) Ondansetron Injection (Zofran Injectio (12/05/17 01:15) Hyoscyamine Sl Tablet (Levsin Sl Tablet) (12/05/17 01:15) Ketorolac Injection (Toradol Injection) (12/05/17 01:04) Dicyclomine Capsule (Bentyl Capsule) (12/05/17 02:45) Ondansetron Injection (Zofran Injectio (12/05/17 02:45) Medications Given in ED Current Medications Medications Dose Ordered Sig/Minerva Route Start Time Stop Time Status Last Admin Dose Admin Hyoscyamine Sulfate 0.25 mg ONCE ONCE SL 12/05/17 01:15 12/05/17 01:44 DC 12/05/17 01:34 0.25 MG Lactated Ringer's 1,000 ml @ 0 mls/hr Q0M ONCE IV 12/05/17 01:04 12/05/17 01:44 DC 12/05/17 01:34 0 MLS/HR Ondansetron HCl 4 mg ONCE ONCE IVP 12/05/17 01:15 12/05/17 01:44 DC 12/05/17 01:34 4 MG Ondansetron HCl 4 mg ONCE ONCE IVP 12/05/17 02:45 12/05/17 02:46 DC 12/05/17 03:03 4 MG Vital Signs/I&O 12/05/17 12/05/17 00:41 02:51 Temp 97.8 97.8 Pulse 96 96 Resp 18 18 B/P (MAP) 179/130 (146) 179/130 (146) Pulse Ox 97 97 Blood Pressure Mean: 146 Progress Progress Note : Progress Note SYMPTOMS IMPROVED AT DISMISSAL NO VOMITING OR DIARRHEA DURING ER STAY Diagnostic Imaging Comments ABDOMEN XRAYS--NO ACUTE PROCESS, PENDING RADIOLOGIST REVIEW CT ABDOMEN/PELVIS--STABLE CYSTIC LESIONS RIGHT HEPATIC LOBE OF LIVER AND RIGHT ABDOMINAL WALL. NO ACUTE PROCESS--PER [facility] VIA FAX @ [phone] Reviewed: Reviewed by Me Departure Impression Primary Impression: LUQ abdominal pain Additional Impression: Combined abdominal pain, vomiting, and diarrhea Disposition: HOME, SELF-CARE Condition: Improved Departure-Patient Inst. Referrals: [facility] (PCP) Primary Care Physician CARISA KHAN (Family) Primary Care Physician Patient Instructions: Acute Abdomen (Belly Pain), Adult (DC) Add. Discharge Instructions: CONTINUE YOUR CURRENT MEDICATIONS PRESCRIBED TAKE YOUR BENTYL EVERY 6 HOURS NEEDED FOR PAIN CLEAR LIQUIDS--WATER, BROTH, JELLO, GATORADE--UNTIL YOUR PAIN IS GONE WHEN PAIN AND NAUSEA IS GONE, THEN YOU MAY ADD A BRATS DIET TO CLEAR LIQUIDS-- BANANAS, RICE, APPLESAUCE, TOAST, SALTINES FOLLOW UP WITH YOUR DR IN 1-2 DAYS IF NO BETTER All discharge instructions reviewed with patient and/or family. Voiced understanding. Scripts Ondansetron (Zofran Odt) 4 Mg Tab.rapdis 4 MG PO Q4H for Nausea/Vomiting, #10 TAB Prov: ANDREEA WASHINGTON DO 12/05/17 Dicyclomine HCl (Dicyclomine HCl) 20 Mg Tablet 20 MG PO Q6H for Abdominal Pain, #20 TAB Prov: ANDREEA WASHINGTON DO 12/05/17 Hyoscyamine Sulfate (Levsin-Sl) 0.125 Mg Tab.subl 1-2 TAB SL Q4H for Abdominal Pain, #15 TAB Prov: ANDREEA WASHINGTON DO 12/05/17 ANDREEA WASHINGTON DO December 05, 2017 01:10
[2017-12-05 01:13] LABS: BASOPHILS % (AUTO) 0 % (0-10); EOSINOPHILS # (AUTO) 0.3 10^3/uL (0.0-0.3); EOSINOPHILS % (AUTO) 6 % (0-10); HEMATOCRIT 38 % (35-52); HEMOGLOBIN 11.9 G/DL (11.5-16.0); LYMPHOCYTES # (AUTO) 1.1 X 10^3 (1.0-4.0); LYMPHOCYTES % (AUTO) 19 % (12-44); MEAN CORPUSCULAR HEMOGLOBIN 24 PG (25-34); MEAN CORPUSCULAR HGB CONC 31 G/DL (32-36); MEAN CORPUSCULAR VOLUME 76 FL (80-99); MONOCYTES # (AUTO) 0.6 X 10^3 (0.0-1.0); MONOCYTES % (AUTO) 10 % (0-12); NEUTROPHILS # (AUTO) 3.7 X 10^3 (1.8-7.8); NEUTROPHILS % (AUTO) 65 % (42-75); PLATELET COUNT 299 10^3/uL (130-400); RED BLOOD COUNT 5.01 10^6/uL (4.35-5.85); RED CELL DISTRIBUTION WIDTH 16.7 % (10.0-14.5); WHITE BLOOD COUNT 5.6 10^3/uL (4.3-11.0)
[2017-12-05] MEDS ORDERED: HYOSCYAMINE 0.125 MG (LEVSIN) TAB SL ONE (01:15)
[2017-12-05] MEDS ORDERED: ONDANSETRON 4 MG/2 ML (SDV) Z0FRAN IVP ONE ×2 (01:15→02:45)
[2017-12-05 01:33] LABS: ALANINE AMINOTRANSFERASE 16 U/L (0-55); ALBUMIN 4.1 GM/DL (3.2-4.5); ALKALINE PHOSPHATASE 56 U/L (40-136); AMYLASE 44 U/L (25-125); BILIRUBIN,TOTAL 0.4 MG/DL (0.1-1.0); BUN/CREATININE RATIO 10; CALCIUM 8.3 MG/DL (8.5-10.1); CARBON DIOXIDE 25 MMOL/L (21-32); CHLORIDE 105 MMOL/L (98-107); CREATININE SERUM 0.79 MG/DL (0.60-1.30); GFR ESTIMATED > 60; GLUCOSE 126 MG/DL (70-105); LIPASE 28 U/L (8-78); POTASSIUM 3.8 MMOL/L (3.6-5.0); SODIUM 140 MMOL/L (135-145); TOTAL PROTEIN 7.3 GM/DL (6.4-8.2)
[2017-12-05 02:21] LABS: BILIRUBIN,URINE NEGATIVE (NEGATIVE); CLARITY,URINE CLEAR; COLOR,URINE YELLOW; GLUCOSE, URINE (UA) NEGATIVE (NEGATIVE); KETONES,URINE NEGATIVE (NEGATIVE); LEUKOCYTE ESTERASE ,URINE 1+ (NEGATIVE); NITRITE,URINE NEGATIVE (NEGATIVE); PH,URINE 6 (5-9); PROTEIN,URINE 1+ (NEGATIVE); UROBILINOGEN,URINE 4 MG/DL (NORMAL)
[2017-12-05 02:30] LABS: BACTERIA,URINE TRACE /HPF; WBC,URINE RARE /HPF
[2017-12-05 02:31] LABS: SQUAMOUS EPITHELIAL CELL,UR 25-50 /HPF
[2017-12-05] MEDS ORDERED: DICY20TA10 PO (02:44)
[2017-12-05] MEDS ORDERED: ONDA4TAB8 PO (02:44)
[2017-12-05] MEDS ORDERED: HYOS0.1283 SL (02:44)
[2017-12-05] MEDS ORDERED: DICYCLOMINE 10 MG (BENTYL) CAP PO SCH (02:45)
[2017-12-05 02:51] VITALS: BP 179/130
--- NOTE | 2017-12-05 05:29 | Diagnostic Imaging Report ---
PROCEDURE: CT urinary tract, rule out kidney stone. TECHNIQUE: Multiple contiguous axial images were obtained through the abdomen and pelvis without the use of intravenous contrast. INDICATION: Abdominal pain. Nausea and vomiting. COMPARISON: [facility] chest 11/13/2007. CT abdomen pelvis without contrast 02/05/2017. FINDINGS: The lung bases are clear. Cholecystectomy. Simple appearing cysts along the inferior right hepatic lobe have not appreciably changed since 2007. The pancreas, spleen, adrenals, kidneys, collecting systems and appendix are negative. Reproductive structures are grossly unremarkable. No free intraperitoneal air or fluid. No lymphadenopathy. No evidence of bowel obstruction. No acute osseous findings. IMPRESSION: No acute CT findings in the abdomen or pelvis on this noncontrast exam. Dictated by: Dictated on workstation # [id number]
--- NOTE | 2017-12-05 07:18 | Diagnostic Imaging Report ---
EXAM: ACUTE ABD SERIES INDICATION: Abdominal pain. COMPARISON: CT abdomen and pelvis also performed today. FINDINGS: Normal heart size and pulmonary vascularity. No focal pulmonary opacity, pleural effusion or pneumothorax. Osseous structures are unremarkable. Nonspecific bowel gas pattern. Cholecystectomy clips. No free intraperitoneal air. IMPRESSION: No acute radiographic findings in the chest, abdomen or pelvis. Dictated by: Dictated on workstation # [id number]
--- OUTSIDE RECORDS SUMMARY | 2017-12-05 17:18 | XMS REPORT ---
Author Author CARISA KHAN Organization [facility] Address [address] [place] [address] Care Team Providers Care Business Services Director Name Role Phone CARISA KHAN Unavailable PROBLEMS Type Condition ICD9-CM Code SZP09-TA Code Onset Dates Condition Status SNOMED Code Problem DM neuro manif type II E11.49 Active 65913159 Problem Tension headache G44.209 Active 125312114 Problem Pain, unspecified R52 Active 280323844 Problem Viral illness B34.9 Active 90872151 Problem Hyperinsulinemia E16.1 Active 25652281 Problem Menorrhagia with irregular cycle N92.1 Active 450946180 Problem Sleep apnea in adult G47.30 Active 29094175 Problem Other atopic dermatitis L20.89 Active 94134049 Problem Intractable migraine without aura and without status migrainosus G43.019 Active 966479046 Problem Irritable bowel syndrome with diarrhea K58.0 Active 565929321 Problem Essential hypertension I10 Active 33135038 ALLERGIES Substance Reaction Event Type Date Status Codeine hives Drug Allergy Dec, Active liquid codeine/ pt. can tolerate drugs like hydroco Unknown Non Drug Allergy Dec, Active Red Onion hives Non Drug Allergy Dec, Active Chlorthalidone 25 Mg Tablet hives Non Drug Allergy Dec, Active Hydrochlorothiazide 25 Mg Tablet hives Non Drug Allergy Dec, Active ENCOUNTERS Encounter Location Date Diagnosis [facility] [address] [facility] [id number] [place] [address] Sep, Upper respiratory tract infection, unspecified type J06.9 and BMI 50.0-59.9, adult Z68.43 [facility] [address] [facility] [id number] [place] [address] Sep, Menorrhagia with irregular cycle N92.1 ; Sleep apnea in adult G47.30 and BMI 50.0-59.9, adult Z68.43 [place] [address] [place] [id number] [place] [address] 76335- 7746 Sep, [facility] [id number] [place] [address] 35536- 1010 Aug, [facility] [address] [address]- [address] Aug, [place] [address] [address]56- 2160 Aug, [place] [address] [id number] [place] [address] 18644- 0736 Aug, LLQ pain R10.32 ; Irritable bowel syndrome with diarrhea K58.0 ; Change in bowel habits R19.4 ; Essential hypertension I10 and BMI 50.0- 59.9, adult Z68.43 [place] [id number] [place] [address] 47898- 8658 Aug, [place] [address] [id number] [place] [address] 17112- 6542 Aug, [facility] [address] [id number] [place] [address] 95266 -3840 Aug, Essential hypertension I10 and BMI 50.0-59.9, adult Z68.43 [place] [id number] [place] [address] 46738- 6795 Aug, [facility] [id number] [place] [address] 10830- 3249 Aug, [facility] [address] [id number] [place] [address] 90262 -6145 02 Aug, 2017 Allergic disorder, initial encounter T78.40XA and BMI 50.0- 59.9, adult Z68.43 [facility] [place] [address] [id number] [place] [address]2019 -5986 Jul, Other atopic dermatitis L20.89 and BMI 50.0-59.9, adult Z68.43 [facility] [id number] [place] [address] 75961- 8457 Jul, Intractable migraine without aura and without status migrainosus G43.019 and BMI 50.0-59.9, adult Z68.43 [place] [address] 26206- 2358 Jun, DM neuro manif type II E11.49 ; Tension headache G44.209 ; Breast cancer screening Z12.31 and BMI 50.0-59.9, adult Z68.43 [place] [address] 61397- 2747 Jun, Tension headache G44.209 ; Breast cancer screening Z12.31 ; BMI 50.0-59.9, adult Z68.43 and DM neuro manif type II E11.[address] [facility] [address] [address] Apr, Dysuria R30.0 and Acute cystitis with hematuria N30.01 [place] [address] 58398- 8377 Apr, Hyperinsulinemia E16.1 [place] [address] 81127- 0981 Mar, Acute non-recurrent maxillary sinusitis J01.00 [place] [address] 08716- 8010 Feb, Cellulitis of unspecified part of limb L03.119 ; Spider bite wound, accidental or unintentional, subsequent encounter T63.301D and BMI 50.0-59.9, adult Z68.43 [place] [address] 88362- 0801 Jan, [place] [address] 02523- 5368 Jan, Urinary tract infection, site unspecified N39.0 [place] [address] [id number] [place] [address] 28387- 4772 Jan, Acute gastritis without hemorrhage, unspecified gastritis type K29.00 [place] [address] 59149- 6853 30 Dec, 2016 Pain in right leg M79.604 [place] [address] [address]20 2546 Dec, Hyperinsulinemia E16.1 and Pain in right leg M79.604 [place] [address] 57247- 8209 Dec, Angioedema, initial encounter T78.3XXA [place] [address] 16535- 5263 15 Dec, 2016 Dental examination Z01.20 [place] [address] 75896- 6764 Dec, [place] [address] 06264- 8017 Dec, Burning with urination R30.0 and Acute cystitis with hematuria N30.01 [place] [address] [id number] [place] [address] 68002- 3110 Oct, [place] [address] 02071- 5457 Sep, [place] [address] 81032- 4979 Aug, Hyperinsulinemia E16.1 [place] [address] [id number] [place] [address] 19149- 8252 Aug, [place] [address] 28704- 2111 Jul, [place] [address] [place] [id number] [place] [address] 46259- 7920 Jul, Chondromalacia, left knee M94.262 and Acute lateral meniscus tear of left knee, initial encounter S83.282A [facility] [id number] [place] [address] Jul, [facility] [address] [place] [address] 2546 Jun, Hyperinsulinemia E16.1 [facility] [address] 12081- 2544 Jun, Dysuria R30.0 ; Back pain M54.9 ; Acute pain of left knee M25.562 and Hyperinsulinemia E16.1 [facility] [address] 44395- 6224 Jun, Acute non-recurrent maxillary sinusitis J01.00 [facility] [address] 01796- 7029 Jun, Dysuria R30.0 [facility] [address] 11225- 7579 Jun, Dysuria R30.0 [facility] [address] 38812- 8273 Jun, [facility] [address] 42642- 0119 May, Dysuria R30.0 and Acute cystitis with hematuria N30.01 [facility] [address] [address] [id number] [place] [address] 70115- 1872 May, Hyperinsulinemia E16.1 [facility] [id number] [place] [address] 80220- 1271 May, [facility] [address] 09318- 4756 May, Sore throat J02.9 [facility] [address] 75580- 8213 May, [facility] [address] 09154- 2729 08 Mar, 2016 Hyperinsulinemia E16.1 [facility] [address] 78651- 8549 Jan, Hyperinsulinemia E16.1 [facility] [address] 38237- 3969 Dec, DM neuro manif type II E11.49 [facility] [address] 28166- 5027 November, Hyperinsulinemia E16.1 and Hypertension I10 [facility] [address] 90689- 3358 Oct, [facility] [address] 77046- 4393 Oct, Hyperinsulinemia E16.1 [facility] [address] 41768- 0962 Oct, Pain, unspecified R52 [facility] [address] 27479- 0605 14 Oct, 2015 Pain in right foot M79.671 and Hyperinsulinemia E16.1 [facility] [address] 47607- 7446 Oct, Hyperinsulinemia E16.1 [facility] [address] 74267- 8967 Oct, Hyperinsulinemia E16.1 [facility] [address] 33192- 2561 17 Aug, 2015 Hypertension I10 and Viral illness B34.9 [facility] [address] 56327- 3963 18 May, 2015 Back pain M54.9 [facility] [address] 77407- 6382 14 Oct, 2014 [facility] [address] 19179- 4332 Oct, [facility] [place] [facility] [address] [id number] [place] [address]- 1045 Sep, [facility] [place] [facility] [address] [id number] [place] [address]- 0814 Sep, [facility] [place] [facility] [address] [id number] [place] [address]- 9657 Sep, [facility] [place] [facility] [address] [id number] [place] [address]- 3408 Sep, [facility] [place] [facility] [address] [id number] [place] [address]- 5410 Sep, [facility] [place] [facility] [address] [id number] [place] [address]- 5595 Sep, [facility] [place] [facility] [address] [id number] [place] [address]- 8804 Sep, [facility] [place] [facility] [address] [id number] [place] [address]- 5647 Sep, [facility] [place] [facility] [address] [id number] [place] [address]- 9836 Sep, [facility] [place] [facility] [address] [id number] [place] [address]- 1356 Sep, [facility] [place] [facility] [address] [id number] [place] [address]- 0255 Sep, [facility] [place] [facility] [address] [id number] [place] [address]- 6269 Sep, [facility] [place] [facility] [address] [id number] [place] [address]- 1586 Mar, [facility] [place] [facility] [address] [id number] [place] [address]- 7853 Mar, [facility] [place] [facility] [address] [id number] [place] [address]- 0391 Feb, [facility] [place] [facility] [address] [id number] [place] [address]- 5861 Feb, [facility] [place] [facility] [address] [id number] [place] [address]- 9531 Feb, [facility] [place] [facility] [address] [id number] [place] [address]- 5955 Feb, [facility] [place] [facility] [address] [id number] [place] [address]- 9814 Dec, [facility] [place] [facility] [address] [id number] [place] [address]- 4758 Dec, [facility] [place] [facility] [address] [id number] [place] [address]- 5828 Dec, [facility] [place] [facility] [address] [id number] [place] [address]- 0263 Dec, [facility] [place] [facility] [address] [id number] [place] [address]- 1786 Dec, [facility] [place] [facility] [address] [id number] [place] [address]- 0755 Dec, [facility] [place] [facility] [address] [id number] [place] [address]- 9250 Dec, [facility] [place] [facility] [address] [id number] [place] [address]- 4102 Sep, [facility] [place] [facility] [address] [id number] [place] [address]- 8557 Sep, [facility] [place] [facility] [address] [id number] [place] [address]- 4388 Sep, [facility] [place] [facility] [address] [id number] [place] [address]- 6313 Sep, [facility] [place] [facility] [address] [id number] [place] [address]- 0911 Sep, [facility] [place] [facility] [address] [id number] [place] [address]- 3878 Sep, [facility] [place] [facility] [address] [id number] [place] [address]- 2623 Sep, [facility] [place] [facility] [address] [id number] [place] [address]- 7468 Sep, [facility] [place] [facility] [address] [id number] [place] [address]- 7948 Jul, [facility] [place] [facility] [address] [id number] [place] [address]- 1052 Jul, [facility] [place] [facility] [address] [id number] [place] [address]- 9954 Jun, [facility] [place] [facility] [address] [id number] [place] [address]- 9872 Jun, [facility] [place] [facility] [address] [id number] [place] [address]- 9123 May, [facility] [place] [facility] [address] [id number] [place] [address]- 2517 May, [facility] [place] [facility] [address] [id number] [place] [address]- 5121 May, [facility] [place] [facility] [address] [id number] [place] [address]- 8190 May, [facility] [place] [facility] [address] [facility] [id number] [place] [address]- 1788 May, [facility] [place] [facility] [address] [id number] [place] [address]- 7665 May, [facility] [place] [facility] [address] [id number] [place] [address]- 2427 05 May, 2013 [facility] [place] [facility] [address] [id number] [place] [address]- 9429 Apr, [facility] [place] [facility] [address] [id number] [place] [address]- 2395 Apr, [facility] [place] [facility] [address] [id number] [place] [address]- 0754 Apr, [facility] [place] [facility] [address] [id number] [place] [address]- 9431 Apr, [facility] [place] [facility] [address] [id number] [place] [address]- 5007 Apr, [facility] [place] [facility] [address] [id number] [place] [address]- 2329 Apr, [facility] [place] [facility] [address] [id number] [place] [address]- 3742 Mar, [facility] [place] [facility] [address] [id number] [place] [address]- 7469 Feb, [facility] [place] [facility] [address] [id number] [place] [address]- 4766 Jan, [facility] [place] [facility] [address] [id number] [place] [address]- 3087 Jan, [facility] [place] [facility] [address] [id number] [place] [address]- 7240 Jan, [facility] [place] [facility] [address] [id number] [place] [address]- 4745 Dec, [facility] [place] [facility] [address] [id number] [place] [address]- 5303 November, [facility] [place] [facility] [address] [id number] [place] [address]- 7442 November, [facility] [place] [facility] [address] [id number] [place] [address]- 5330 November, [facility] [place] [facility] [address] [id number] [place] [address]- 1791 November, [facility] [place] [facility] [address] [id number] [place] [address]- 5993 Oct, [facility] [place] [facility] [address] [id number] [place] [address]- 1705 Aug, [facility] [place] [facility] [address] [id number] [place] [address]- 5035 Aug, 2012 [facility] [place] [facility] [address] [id number] [place] [address]- 3766 Aug, 2012 [facility] [place] [facility] [address] [id number] [place] [address] 2546 Aug, 2012 [facility] [place] [facility] [address] [id number] [place] [address]- 4986 Aug, 2012 [facility] [place] [facility] [address] [id number] [place] [address]- 2545 Aug, [facility] [place] [facility] [address] [id number] [place] [address]- 3233 Jul, [facility] [place] [facility] [address] [facility] [id number] [place] [address]- 1185 May, [facility] [place] [facility] [address] [id number] [place] [address]- 6085 May, [facility] [place] [facility] [address] [id number] [place] [address]- 0059 May, [facility] [place] [facility] [address] [facility] [id number] [place] [address]- 6468 May, [facility] [place] [facility] [address] [facility] [id number] [place] [address]- 3557 May, [facility] [place] [facility] [address] [facility] [id number] [place] [address] 2547 May, [facility] [place] [facility] [address] [id number] [place] [address]- 2545 May, [facility] [place] [facility] [address] [facility] [id number] [place] [address]- 4981 Apr, [facility] [place] [facility] [address] [id number] [place] [address]- 2546 Apr, [facility] [place] [facility] [address] [facility] [id number] [place] 5144 Apr, [facility] [place] [facility] [address] [id number] [place] [address]- 4998 Apr, [facility] [place] [facility] [address] [id number] [place] [address]- 3036 Apr, [facility] [place] [facility] [address] [id number] [place] [address]- 4806 Sep, [facility] [place] [facility] [address] [id number] [place] [address]- 9141 Aug, [facility] [place] [facility] [address] [id number] [place] [address]- 8981 Aug, [facility] [place] [facility] [address] [id number] [place] [address]- 7900 Aug, [facility] [place] [facility] [address] [id number] [place] [address]- 6007 Aug, [facility] [place] [facility] [address] [id number] [place] [address]- 9470 Aug, [facility] [place] [facility] [address] [id number] [place] [address]- 2530 Jul, [facility] [place] [facility] [address] [id number] [place] [address]- 9419 Jul, [facility] [place] [facility] [address] [id number] [place] [address]- 1416 Jul, [facility] [place] [facility] [address] [id number] [place] [address]- 5995 Jun, [facility] [place] [facility] [address] [id number] [place] [address]- 3016 Jun, [facility] [place] [facility] [address] [facility] [id number] [place] [address]- 5958 Jun, [facility] [place] [facility] [address] [facility] [id number] [place] [address]- 6676 May, [facility] [place] [facility] [address] [facility] [id number] [place] [address]- 0637 15 Apr, 2011 [facility] [address] [facility] [id number] [place] [address]- 3287 Apr, [facility] [address] [facility] [id number] [place] [address]- 4156 Apr, [facility] [address] [facility] [id number] [place] [address]- 6850 Apr, IMMUNIZATIONS No Known Immunizations SOCIAL HISTORY Never Assessed REASON FOR VISIT Hyperinsulin f/u, no other concerns- Kathryn COX PLAN OF CARE Activity Details Follow Up 4 Months Reason:breast exam VITAL SIGNS Height 69 in 2017-01-12 Weight 347.6 lbs 2017-01-12 Temperature 98.7 degrees Fahrenheit 2017-01-12 Heart Rate 76 bpm 2017-01-12 Respiratory Rate 18 2017-01-12 BMI 51.33 kg/m2 2017-01-12 Blood pressure systolic 128 mmHg 2017-01-12 Blood pressure diastolic 78 mmHg 2017-01-12 MEDICATIONS Medication Instructions Dosage Frequency Start Date End Date Duration Status HydrOXYzine HCl 25 MG Orally every 6 hrs 1 tablet as needed 6h Dec, 0 days Active Mobic 7.5 MG Orally Once a day as needed for lega=pain 1-2tablet Dec, Jun, 90 days Active Trulicity 1.5 MG/0.5ML Subcutaneous once weekly inject 0.5 ml Oct, 90 days Active Diltiazem HCl ER Beads 240 MG TAKE ONE CAPSULE BY MOUTH DAILY 30 Active Imitrex 50 MG Orally Twice a day 1 tablet as needed 12h 30 Active Metformin HCl 500 MG Orally 2 times a day 1 tablet with meals 12h 90 Active Propranolol HCl 10 MG TAKE ONE TABLET BY MOUTH TWICE DAILY 30 Active Spironolactone 25 MG TAKE ONE TABLET BY MOUTH ONCE DAILY 30 Active RESULTS No Results PROCEDURES No Known procedures INSTRUCTIONS MEDICATIONS ADMINISTERED No Known Medications MEDICAL (GENERAL) HISTORY Type Description Date Medical History hypertension Surgical History x 3 Surgical History cholecystectomy Surgical History Chemical Stress Test, EKG, Echo 05/2016 Hospitalization History surgeries Hospitalization History UTI VC 05/2016
--- OUTSIDE RECORDS SUMMARY | 2017-12-05 17:18 | XMS REPORT ---
Author Author CARISA KHAN Organization [facility] Address [address] [place] [address] Care Team Providers Care Documentation Improvement Specialist Name Role Phone CARISA KHAN Unavailable PROBLEMS Type Condition ICD9-CM Code [id number] Code Onset Dates Condition Status SNOMED Code Problem DM neuro manif type II E11.49 Active 86157386 Problem Tension headache G44.209 Active 087964869 Problem Pain, unspecified R52 Active 907881252 Problem Viral illness B34.9 Active 82829755 Problem Hyperinsulinemia E16.1 Active 45860870 Problem Menorrhagia with irregular cycle N92.1 Active 262352469 Problem Sleep apnea in adult G47.30 Active 61961639 Problem Other atopic dermatitis L20.89 Active 85881462 Problem Intractable migraine without aura and without status migrainosus G43.019 Active 436662940 Problem Irritable bowel syndrome with diarrhea K58.0 Active 413109678 Problem Essential hypertension I10 Active 03952491 ALLERGIES No Information ENCOUNTERS Encounter Location Date Diagnosis [facility] [id number] [address] Sep, Upper respiratory tract infection, unspecified type J06.9 and BMI 50.0-59.9, adult Z68.43 [facility] [id number] [place] [address] 65591- 7371 Sep, Menorrhagia with irregular cycle N92.1 ; Sleep apnea in adult G47.30 and BMI 50.0-59.[address], [address] [facility] [id number] [place] [address] 51484- 1577 Sep, [facility] [id number] [address] Aug, [facility] [id number] [place] [address] 56380- 9154 Aug, [place] [address] 16653- 8838 Aug, [place] [id number] [place] [address] 17541- 6306 Aug, LLQ pain R10.32 ; Irritable bowel syndrome with diarrhea K58.0 ; Change in bowel habits R19.4 ; Essential hypertension I10 and BMI 50.0- 59.9, adult Z68.43 [place] [id number] [place] [address] 06581- 4053 Aug, [place] [address] 93827- 8703 Aug, [facility] [place] [address] [address] Aug, Essential hypertension I10 and BMI 50.0-59.9, adult Z68.43 [place] [id number] [place] [address] 45600- 2080 Aug, [place] [address] 38054- 3895 08 Aug, 2017 [facility] [place] [id number] [place] [address] 18118 -6[address] 02 Aug, 2017 Allergic disorder, initial encounter T78.40XA and BMI 50.0- 59.9, adult Z68.43 [facility] [place] [id number] [place] [address] 02728 -7284 Jul, Other atopic dermatitis L20.89 and BMI 50.0-59.9, adult Z68.43 [place] [id number] [place] [address] 41381- 2931 Jul, Intractable migraine without aura and without status migrainosus G43.019 and BMI 50.0-59.9, adult Z68.43 [place] [id number] [place] [address] 02856- 7560 Jun, DM neuro manif type II E11.49 ; Tension headache G44.209 ; Breast cancer screening Z12.31 and BMI 50.0-59.9, adult Z68.43 [facility] [id number] [place] [address] 40255- 6845 Jun, Tension headache G44.209 ; Breast cancer screening Z12.31 ; BMI 50.0-59.9, adult Z68.43 and DM neuro manif type II E11.49 [facility] [id number] [place] [address] 84059 -5797 Apr, Dysuria R30.0 and Acute cystitis with hematuria N30.01 [place] [id number] [place] [address] 74841- 1421 Apr, Hyperinsulinemia E16.1 [place] [address] 88974- 9594 Mar, Acute non-recurrent maxillary sinusitis J01.00 [place] [id number] [place] [address] 63909- 3816 Feb, Cellulitis of unspecified part of limb L03.119 ; Spider bite wound, accidental or unintentional, subsequent encounter T63.301D and BMI 50.0-59.9, adult Z68.43 [place] [id number] [place] [address] 06049- 2579 Jan, [place] [id number] [place] [address] 13902- 8254 Jan, Urinary tract infection, site unspecified N39.0 [place] [address] 00291- 3036 Jan, Acute gastritis without hemorrhage, unspecified gastritis type K29.00 [facility] [id number] [place] [address] 53276- 2321 Dec, Pain in right leg M79.604 [facility] [id number] [place] [address] 24990- 5065 28 Dec, 2016 Hyperinsulinemia E16.1 and Pain in right leg M79.604 [place] [address] 24084- 3201 27 Dec, 2016 Angioedema, initial encounter T78.3XXA [place] [address] 71726- 2853 15 Dec, 2016 Dental examination Z01.20 [place] [address] 33258- 9460 13 Dec, 2016 [place] [address] 76153- 6903 Dec, Burning with urination R30.0 and Acute cystitis with hematuria N30.01 [place] [address] 83739- 5032 Oct, [facility] [address] 92781- 3673 Sep, [place] [address] 97579- 7709 Aug, Hyperinsulinemia E16.1 [place] [address] 23536- 8908 Aug, [place] [address] 65896- 7446 Jul, [facility] [id number] [place] [address] 91010- 3610 Jul, Chondromalacia, left knee M94.262 and Acute lateral meniscus tear of left knee, initial encounter S83.282A [place] [address] 85407- 8785 Jul, [facility] [id number] [place] [address] 34560- 8884 23 Dec, [address] [facility] [id number] [place] [address] 24481- 5480 Jun, Dysuria R30.0 ; Back pain M54.9 ; Acute pain of left knee M25.[address] [facility] [id number] [place] [address] 08889 2546 14 Jun, 2016 Acute non-recurrent maxillary sinusitis J01.00 [facility] [id number] [place] [address] 26891 2546 Jun, Dysuria R30.0 [facility] [id number] [place] [address] 35781 2546 Jun, Dysuria R30.0 [facility] [id number] [place] [address] 13510 2546 Jun, [facility] [id number] [place] [address] 46892 2541 May, Dysuria R30.0 and Acute cystitis with hematuria N30.01 [facility] [id number] [place] [address] 46327- 5206 May, Hyperinsulinemia E16.1 [facility] [id number] [place] [address] 96221- 7976 May, [facility] [id number] [place] [address] 86460- 7374 May, Sore throat J02.9 [facility] [id number] [place] [address] 14615 2546 May, [facility] [id number] [place] [address] 95114- 1737 Mar, Hyperinsulinemia E16.1 [facility] [id number] [place] [address] 80455 2546 Jan, Hyperinsulinemia E16.1 [facility] [id number] [place] [address] 88077547- 1476 Dec, DM neuro manif type II E11.49 [facility] [id number] [place] [address] 38048- 7258 November, Hyperinsulinemia E16.[address] [facility] [id number] [place] [address] 75504- 6520 Oct, [facility] [address] 34451- 3255 Oct, Hyperinsulinemia E16.1 [facility] [address] 40980- 2808 Oct, Pain, unspecified R52 [facility] [address] 94856- 4345 Oct, Pain in right foot M79.[address] [facility] [address] 35477- 8765 Oct, Hyperinsulinemia E16.1 [facility] [id number] [place] [address] 60492- 0194 Oct, Hyperinsulinemia E16.1 [facility] [address] 13673- 0166 17 Aug, 2015 Hypertension I10 and Viral illness B34.9 [facility] [id number] [place] [address] 32257- 9218 May, Back pain M54.9 [facility] [id number] [place] [address] 78741- 6578 Oct, [facility] [id number] [place] [address] 26548- 4614 Oct, [facility] [address] 87560- 8652 Sep, [facility] [id number] [place] [address] 98512- 9887 Sep, [facility] [address] [place] [address]- 0788 17 Sep, 2014 [facility] [place] [facility] [address] [id number] [place] [address]- 2893 Sep, 2014 [facility] [place] [facility] [address] [id number] [place] [address]- 2362 Sep, 2014 [facility] [place] [facility] [address] [id number] [place] [address]- 9601 Sep, 2014 [facility] [place] [facility] [address] [id number] [place] [address]- 2948 Sep, 2014 [facility] [place] [facility] [address] [id number] [place] [address]- 9247 Sep, 2014 [facility] [place] [facility] [address] [id number] [place] [address]- 8183 Sep, 2014 [facility] [place] [facility] [address] [id number] [place] [address]- 7225 Sep, 2014 [facility] [place] [facility] [address] [id number] [place] [address]- 5548 Sep, 2014 [facility] [place] [facility] [address] [id number] [place] [address]- 9538 Sep, 2014 [facility] [place] [facility] [address] [id number] [place] [address]- 2484 Mar, [facility] [place] [facility] [address] [id number] [place] [address]- 0238 Mar, [facility] [place] [facility] [address] [id number] [place] [address]- 2315 Feb, [facility] [place] [facility] [address] [id number] [place] [address]- 7871 Feb, [facility] [place] [facility] [address] [id number] [place] [address]- 4645 Feb, [facility] [place] [facility] [address] [id number] [place] [address]- 5423 Feb, [facility] [place] [facility] [address] [id number] [place] [address]- 3311 Dec, [facility] [place] [facility] [address] [id number] [place] [address]- 4708 Dec, [facility] [place] [facility] [address] [id number] [place] [address]- 1365 Dec, [facility] [place] [facility] [address] [id number] [place] [address]- 6162 Dec, [facility] [place] [facility] [address] [id number] [place] [address]- 9960 Dec, [facility] [place] [facility] [address] [id number] [place] [address]- 1736 Dec, [facility] [place] [facility] [address] [id number] [place] [address]- 0304 Dec, [facility] [place] [facility] [address] [id number] [place] [address]- 7351 Sep, [facility] [place] [facility] [address] [id number] [place] [address]- 4549 Sep, [facility] [place] [facility] [address] [id number] [place] [address]- 6328 Sep, [facility] [place] [facility] [address] [id number] [place] [address]- 0599 Sep, [facility] [place] [facility] [address] [id number] [place] [address]- 3058 Sep, [facility] [place] [facility] [address] [id number] [place] [address]- 6520 Sep, [facility] [place] [facility] [address] [id number] [place] [address]- 5420 Sep, [facility] [place] [facility] [address] [id number] [place] [address]- 8364 Sep, [facility] [place] [facility] [address] [id number] [place] [address]- 6177 Jul, [facility] [place] [facility] [address] [id number] [place] [address]- 2383 Jul, [facility] [place] [facility] [address] [id number] [place] [address]- 0516 Jun, [facility] [place] [facility] [address] [facility] [id number] [place] [address]- 1263 Jun, [facility] [place] [facility] [address] [id number] [address]- 4811 May, [facility] [place] [facility] [address] [id number] [place] [address]- 2062 May, [facility] [place] [facility] [address] [id number] [place] [address]- 6827 May, [facility] [place] [facility] [address] [id number] [place] [address]- 7014 May, [facility] [place] [facility] [address] [id number], [place] [address]- 0292 May, [facility] [place] [facility] [address] [id number], [place] [address]- 4722 May, [facility] [place] [facility] [address] [id number], [place] [address]- 8315 May, [facility] [place] [facility] [address] [id number], [place] [address]- 9114 Apr, [facility] [place] [facility] [address] [id number], [place] [address]- 4818 Apr, [facility] [place] [facility] [address] [id number], [place] [address]- 3516 Apr, [facility] [place] [facility] [address] [id number], [place] [address]- 5384 Apr, [facility] [place] [facility] [address] [id number], [place] [address]- 7706 30 Apr, 2013 [facility] [place] [facility] [address] [id number] [place] [address]- 8673 Apr, [facility] [address] [id number] [place] [address]- 8310 Mar, [facility] [address] [id number] [place] [address] 2546 Feb, [facility] [address] [id number] [place] [address]- 7798 Jan, [facility] [address] [id number] [place] [address]- 2541 Jan, [facility] [address] [id number] [place] [address]- 9943 Jan, [facility] [address] [id number] [place] [address]- 9036 Dec, [facility] [address] [id number] [place] [address]- 6390 November, [facility] [address] [id number] [place] [address]- 4296 November, [facility] [address] [id number] [place] [address]- 1381 November, [facility] [address] [id number] [place] [address]- 1655 November, [facility] [address] [id number] [place] [address]- 3746 Oct, [facility] [address] [id number] [place] [address]- 254 Aug, [facility] [address] [id number] [place] [address]- 0156 Aug, [facility] [address] [id number] [place] [address]- 2546 Aug, [facility] [address] [id number] [place] [address]- 5760 Aug, [facility] [place] [facility] [address] [id number] [place] [address]- 7173 Aug, [facility] [place] [facility] [address] [id number] [place] [address]- 7370 Aug, [facility] [place] [facility] [address] [facility] [id number] [place] [address]- 1358 Jul, [facility] [place] [facility] [address] [id number] [place] [address]- 4419 May, [facility] [place] [facility] [address] [id number] [place] [address]- 3336 May, [facility] [place] [facility] [address] [id number] [place] [address]- 4923 May, [facility] [place] [facility] [address] [facility] [id number] [place] [address]- 6404 May, [facility] [place] [facility] [address] [id number] [place] [address]- 4801 May, [facility] [place] [facility] [address] [id number] [place] [address]- 9515 May, [facility] [place] [facility] [address] [facility] [id number] [place] [address]- 1634 May, [facility] [place] [facility] [address] [id number], [place] [address]- 5811 Apr, [facility] [place] [facility] [address] [id number], [place] [address]- 3714 Apr, [facility] [place] [facility] [address] [id number] [place] [address]- 0903 Apr, [facility] [place] [facility] [address] [id number], [place] [address]- 3982 Apr, [facility] [place] [facility] [address] [facility] [id number] [place] [address]- 2576 Apr, [facility] [place] [facility] [address] [id number] [place] [address]- 8183 Sep, [facility] [place] [facility] [address] [id number] [place] [address]- 5796 24 Aug, 2011 [facility] [place] [facility] [address] [id number] [place] [address] 2546 16 Aug, 2011 [facility] [place] [facility] [address] [id number] [place] [address] 2546 15 Aug, 2011 [facility] [place] [facility] [address] [id number] [place] [address] 2546 Aug, [facility] [place] [facility] [address] [id number] [place] [address]- 7536 Aug, [facility] [place] [facility] [address] [facility] [id number] [place] 7559 Jul, [facility] [place] [facility] [address] [id number] [place] [address] 2547 Jul, [facility] [place] [facility] [address] [id number] [place] [address] 2547 Jul, [facility] [place] [facility] [address] [facility] [id number] [place] [address]- 8936 Jun, [facility] [place] [facility] [address] [facility] [id number] [place] [address]- 9760 Jun, [facility] [place] [facility] [address] [id number] [place] [address] 2546 Jun, [facility] [place] [facility] [address] [id number] [place] [address] 2547 May, [facility] [place] [facility] [address] [id number] [place] [address]- 3136 15 Apr, 2011 [facility] [place] [facility] [address] [id number] [place] [address] 2546 Apr, [facility] [place] [facility] [address] [facility] [id number] [place] [address]- 6534 Apr, [facility] [address] [facility] [id number] [place] [address]- 6590 Apr, IMMUNIZATIONS No Known Immunizations SOCIAL HISTORY Never Assessed REASON FOR VISIT medication PLAN OF CARE VITAL SIGNS MEDICATIONS Medication Instructions Dosage Frequency Start Date End Date Duration Status Mobic 7.5 MG Orally Once a day as needed for lega=pain 1-2tablet Dec, 90 days Active RESULTS No Results PROCEDURES No Known procedures INSTRUCTIONS MEDICATIONS ADMINISTERED No Known Medications MEDICAL (GENERAL) HISTORY Type Description Date Medical History hypertension Surgical History x 3 Surgical History cholecystectomy Surgical History Chemical Stress Test, EKG, Echo 05/2016 Hospitalization History surgeries Hospitalization History UTI VC 05/2016
--- OUTSIDE RECORDS SUMMARY | 2017-12-05 17:19 | XMS REPORT ---
Author Author CARISA KHAN Organization [facility] Address [address] [place] [address] Care Team Providers Care Service And Repair Supervisor Name Role Phone CARISA KHAN Unavailable PROBLEMS Type Condition ICD9-CM Code ZBB65-EA Code Onset Dates Condition Status SNOMED Code Problem DM neuro manif type II E11.49 Active 13743565 Problem Tension headache G44.209 Active 016255854 Problem Pain, unspecified R52 Active 800832546 Problem Viral illness B34.9 Active 06615614 Problem Hyperinsulinemia E16.1 Active 87208230 Problem Menorrhagia with irregular cycle N92.1 Active 245763900 Problem Sleep apnea in adult G47.30 Active 98175489 Problem Other atopic dermatitis L20.89 Active 31934353 Problem Intractable migraine without aura and without status migrainosus G43.019 Active 751361350 Problem Irritable bowel syndrome with diarrhea K58.0 Active 672461728 Problem Essential hypertension I10 Active 37721737 ALLERGIES No Information ENCOUNTERS Encounter Location Date Diagnosis [facility] [id number] [place] [address] November, [facility] [address] [address] Sep, Upper respiratory tract infection, unspecified type J06.9 and BMI 50.0-59.9, adult Z68.43 [facility] [id number] [place] [address]151- 2680 Sep, Menorrhagia with irregular cycle N92.1 ; Sleep apnea in adult G47.30 and BMI 50.0-59.9, adult Z68.43 [facility] [address] [address] Sep, [facility] [address] [place] [id number] [place] [address] 33732- 2167 Aug, [facility] [address] [address]- [address]89 Aug, [facility] [address] 79162- 2100 Aug, [facility] [address] [address]63- 8419 Aug, LLQ pain R10.32 ; Irritable bowel syndrome with diarrhea K58.0 ; Change in bowel habits R19.4 ; Essential hypertension I10 and BMI 50.0- 59.9, adult Z68.43 [place] [address] [address]59- 6852 Aug, [place] [address] 13459- 1784 Aug, [facility] [place] [address] [address] Aug, Essential hypertension I10 and BMI 50.0-59.9, adult Z68.43 [place] [address] 53902- 0139 19 Aug, 2017 [place] [address] 85791- 1521 Aug, [facility] [place] [address] 80168 -8128 02 Aug, 2017 Allergic disorder, initial encounter T78.40XA and BMI 50.0- 59.9, adult Z68.43 [facility] [place] [address] 9[address]227 Jul, Other atopic dermatitis L20.89 and BMI 50.0-59.9, adult Z68.43 [place] [address] 01534- 9375 16 Jul, 2017 Intractable migraine without aura and without status migrainosus G43.019 and BMI 50.0-59.9, adult Z68.43 [facility] [address] 23357- 0091 Jun, DM neuro manif type II E11.49 ; Tension headache G44.209 ; Breast cancer screening Z12.31 and BMI 50.0-59.9, adult Z68.43 [place] [address] 07660- 6455 Jun, Tension headache G44.209 ; Breast cancer screening Z12.31 ; BMI 50.0-59.9, adult Z68.43 and DM neuro manif type II E11.49 [facility] [address] 7[address] Apr, Dysuria R30.0 and Acute cystitis with hematuria N30.[address] 37[address]- 2667 Apr, Hyperinsulinemia E16.[address] 30409- 5409 Mar, Acute non-recurrent maxillary sinusitis J01.[address] 94553- 0636 Feb, Cellulitis of unspecified part of limb L03.119 ; Spider bite wound, accidental or unintentional, subsequent encounter T63.301D and BMI 50.0-59.9, adult Z68.43 [facility] [address] 11099- 3217 Jan, [address] 87684- 9926 Jan, Urinary tract infection, site unspecified N39.[address] 74591- 1134 Jan, Acute gastritis without hemorrhage, unspecified gastritis type K29.00 [place] [id number] [place] [address] 42679- 8162 30 Dec, 2016 Pain in right leg M79.604 [place] [address] 49587- 5978 28 Dec, 2016 Hyperinsulinemia E16.1 and Pain in right leg M79.604 [place] [address] 54110- 6585 27 Dec, 2016 Angioedema, initial encounter T78.3XXA [place] [address] 55832- 5183 15 Dec, 2016 Dental examination Z01.20 [place] [address] 15418- 6033 13 Dec, 2016 [place] [address] 92999- 5624 Dec, Burning with urination R30.0 and Acute cystitis with hematuria N30.01 [place] [address] [place] [id number] [place] [address] 71521- 7662 Oct, [place] [address] 96365- 1509 Sep, [place] [address] [place] [id number] [place] [address] 09544- 6530 Aug, Hyperinsulinemia E16.1 [place] [address] 67905- 5320 Aug, [place] [address] [place] [id number] [place] [address] 69597- 7499 Jul, [place] [address] 74848- 6165 Jul, Chondromalacia, left knee M94.262 and Acute lateral meniscus tear of left knee, initial encounter S83.282A [place] [address] 98069- 9041 Jul, [place] [address] [place] [id number] [place] [address] 13987 2546 Jun, Hyperinsulinemia E16.1 [facility] [address] 65312- 2546 Jun, Dysuria R30.0 ; Back pain M54.9 ; Acute pain of left knee M25.562 and Hyperinsulinemia E16.1 [facility] [address] 48185 2546 Jun, Acute non-recurrent maxillary sinusitis J01.00 [facility] [address] 02181 2546 Jun, Dysuria R30.0 [facility] [address] 23982 2546 Jun, Dysuria R30.0 [facility] [address] 72905 2546 Jun, [facility] [address] 08999 2544 May, Dysuria R30.0 and Acute cystitis with hematuria N30.01 [facility] [address] [place] [id number] [place] [address] 14586 2546 May, Hyperinsulinemia E16.1 [facility] [address] [place] [id number] [place] [address] 88745- 2686 May, [facility] [address] [place] [id number] [place] [address] 25764 2546 May, Sore throat J02.9 [facility] [address] [place] [id number] [place] [address] 18544 2546 May, [facility] [address] 13395- 2546 08 Mar, 2016 Hyperinsulinemia E16.1 [facility] [address] [place] [id number] [place] [address] 16643 2546 Jan, Hyperinsulinemia E16.1 [facility] [address] [place] [id number] [place] [address] 32449- 7331 Dec, DM neuro manif type II E11.49 [facility] [address] 38325- 3966 November, Hyperinsulinemia E16.1 and Hypertension I10 [facility] [address] 14278- 5882 Oct, [facility] [address] 62104- 0601 Oct, Hyperinsulinemia E16.1 [facility] [address] 38233- 7502 Oct, Pain, unspecified R52 [facility] [address] 66153- 3867 14 Oct, 2015 Pain in right foot M79.671 and Hyperinsulinemia E16.1 [facility] [address] 61619- 5488 Oct, Hyperinsulinemia E16.1 [facility] [address] 63798- 2192 Oct, Hyperinsulinemia E16.1 [facility] [address] 71441- 5605 17 Aug, 2015 Hypertension I10 and Viral illness B34.9 [facility] [address] 38127- 3597 May, Back pain M54.9 [facility] [address] 86287- 2632 Oct, [facility] [address] 59653- 0719 Oct, [facility] [address] 69329- 1621 Sep, [facility] [address] [place] [address]- 1621 30 Sep, 2014 [facility] [place] [facility] [address] [id number] [place] [address]- 8340 Sep, 2014 [facility] [place] [facility] [address] [id number] [place] [address]- 0877 Sep, 2014 [facility] [place] [facility] [address] [id number] [place] [address]- 9427 Sep, 2014 [facility] [place] [facility] [address] [id number] [place] [address]- 9724 Sep, 2014 [facility] [place] [facility] [address] [id number] [place] [address]- 8770 Sep, 2014 [facility] [place] [facility] [address] [id number] [place] [address]- 1627 Sep, 2014 [facility] [place] [facility] [address] [id number] [place] [address]- 7274 Sep, 2014 [facility] [place] [facility] [address] [id number] [place] [address]- 0141 Sep, 2014 [facility] [place] [facility] [address] [id number] [place] [address]- 2812 Sep, 2014 [facility] [place] [facility] [address] [id number] [place] [address]- 1556 Sep, 2014 [facility] [place] [facility] [address] [id number] [place] [address]- 7668 Mar, [facility] [place] [facility] [address] [id number] [place] [address]- 3160 Mar, [facility] [place] [facility] [address] [id number] [place] [address]- 5386 Feb, [facility] [place] [facility] [address] [id number] [place] [address]- 2914 Feb, [facility] [place] [facility] [address] [id number] [place] [address]- 9039 Feb, [facility] [place] [facility] [address] [id number] [place] [address]- 9927 Feb, [facility] [place] [facility] [address] [id number] [place] [address]- 4068 Dec, [facility] [place] [facility] [address] [id number] [place] [address]- 6905 Dec, [facility] [place] [facility] [address] [id number] [place] [address]- 2699 Dec, [facility] [place] [facility] [address] [id number] [place] [address]- 5219 Dec, [facility] [place] [facility] [address] [id number] [place] [address]- 8162 Dec, [facility] [place] [facility] [address] [id number] [place] [address]- 1582 Dec, [facility] [place] [facility] [address] [id number] [place] [address]- 5753 Dec, [facility] [place] [facility] [address] [id number] [place] [address]- 5863 Sep, [facility] [place] [facility] [address] [id number] [place] [address]- 4048 Sep, [facility] [place] [facility] [address] [id number] [place] [address]- 6674 Sep, [facility] [place] [facility] [address] [id number] [place] [address]- 5609 Sep, [facility] [place] [facility] [address] [id number] [place] [address]- 4192 Sep, [facility] [place] [facility] [address] [id number] [place] [address]- 2276 Sep, [facility] [place] [facility] [address] [id number] [place] [address]- 9743 Sep, [facility] [place] [facility] [address] [id number] [place] [address]- 2166 Sep, [facility] [place] [facility] [address] [id number] [place] [address]- 9786 Jul, [facility] [place] [facility] [address] [id number] [place] [address]- 1741 Jul, [facility] [place] [facility] [address] [facility] [id number] [place] [address]- 0484 Jun, [facility] [place] [facility] [address] [id number] [place] [address]- 2739 Jun, [facility] [place] [facility] [address] [id number] [place] [address]- 5208 May, [facility] [place] [facility] [address] [id number], [place] [address]- 2400 May, [facility] [place] [facility] [address] [id number], [place] [address]- 5082 May, [facility] [place] [facility] [address] [id number], [place] [address]- 5648 May, [facility] [place] [facility] [address] [id number], [place] [address]- 6128 May, [facility] [place] [facility] [address] [id number], [place] [address]- 6165 May, [facility] [place] [facility] [address] [id number], [place] [address]- 6281 05 May, 2013 [facility] [place] [facility] [address] [id number], [place] [address]- 5938 Apr, [facility] [place] [facility] [address] [id number], [place] [address]- 5950 Apr, [facility] [place] [facility] [address] [facility] [id number], [place] [address]- 9394 Apr, [facility] [place] [facility] [address] [id number], [place] [address]- 5393 Apr, [facility] [place] [facility] [address] [id number] [place] [address]- 4872 Apr, [facility] [address] [id number] [place] [address]- 7971 Apr, [facility] [address] [id number] [place] [address]- 9866 Mar, [facility] [address] [id number] [place] [address]- 4661 Feb, [facility] [address] [id number] [place] [address]- 3862 Jan, [facility] [address] [id number] [place] [address]- 3130 Jan, [facility] [address] [id number] [place] [address]- 3666 Jan, [facility] [address] [id number] [place] [address]- 5707 Dec, [facility] [address] [id number] [place] [address]- 7543 November, [facility] [address] [id number] [place] [address]- 8637 November, [facility] [address] [id number] [place] [address]- 8809 November, [facility] [address] [id number] [place] [address]- 0346 November, [facility] [address] [id number] [place] [address]- 0353 Oct, [facility] [address] [id number] [place] [address]- 4965 Aug, [facility] [address] [id number] [place] [address]- 6206 Aug, [facility] [address] [id number] [place] [address] Aug, [facility] [place] [facility] [address] [id number] [place] [address]- 5018 Aug, [facility] [place] [facility] [address] [id number] [place] [address]- 0352 Aug, [facility] [place] [facility] [address] [id number] [place] [address]- 1266 Aug, [facility] [place] [facility] [address] [id number] [place] [address]- 3415 Jul, [facility] [place] [facility] [address] [id number] [place] [address]- 4834 May, [facility] [place] [facility] [address] [id number] [place] [address]- 5000 May, [facility] [place] [facility] [address] [facility] [id number] [place] [address]- 3674 May, [facility] [place] [facility] [address] [id number] [place] [address]- 6560 May, [facility] [place] [facility] [address] [id number] [place] [address]- 3956 May, [facility] [place] [facility] [address] [facility] [id number] [place] [address]- 3715 May, [facility] [place] [facility] [address] [id number], [place] [address]- 7770 May, [facility] [place] [facility] [address] [id number], [place] [address]- 3148 Apr, [facility] [place] [facility] [address] [id number] [place] [address]- 8532 Apr, [facility] [place] [facility] [address] [id number], [place] [address]- 8885 Apr, [facility] [place] [facility] [address] [facility] [id number] [place] [address]- 9804 Apr, [facility] [place] [facility] [address] [id number] [place] [address]- 7687 30 Apr, 2012 [facility] [address] [id number] [place] [address]- 3216 Sep, [facility] [place] [facility] [address] [id number] [place] [address] 2546 24 Aug, 2011 [facility] [place] [facility] [address] [id number] [place] [address] 2546 16 Aug, 2011 [facility] [place] [facility] [address] [id number] [place] [address] 2546 15 Aug, 2011 [facility] [place] [facility] [address] [id number] [place] [address]- 3616 08 Aug, 2011 [facility] [place] [facility] [address] [facility] [id number] [place] [address] 2546 Aug, [facility] [place] [facility] [address] [facility] [id number] [place] [address]- 4456 Jul, [facility] [place] [facility] [address] [id number] [place] [address]- 5478 Jul, [facility] [place] [facility] [address] [facility] [id number] [place] [address]- 6917 Jul, [facility] [place] [facility] [address] [facility] [id number] [place] [address]- 7104 Jun, [facility] [place] [facility] [address] [id number] [place] [address] 2546 Jun, [facility] [place] [facility] [address] [id number] [place] [address] 2546 Jun, [facility] [place] [facility] [address] [facility] [id number] [place] [address] 2546 May, [facility] [place] [facility] [address] [facility] [id number] [place] [address] 2546 15 Apr, 2011 [facility] [place] [facility] [address] [facility] [id number] [place] [address] 0950 Apr, [facility] [address] [facility] [id number] [place] [address]- 4479 Apr, [facility] [address] [facility] [id number] [place] [address]- 8481 Apr, IMMUNIZATIONS No Known Immunizations SOCIAL HISTORY Never Assessed REASON FOR VISIT Update Demographics - Personal Info PLAN OF CARE VITAL SIGNS MEDICATIONS Unknown Medications RESULTS No Results PROCEDURES No Known procedures INSTRUCTIONS MEDICATIONS ADMINISTERED No Known Medications MEDICAL (GENERAL) HISTORY Type Description Date Medical History hypertension Surgical History x 3 Surgical History cholecystectomy Surgical History Chemical Stress Test, EKG, Echo 05/2016 Hospitalization History surgeries Hospitalization History UTI VC 05/2016
--- OUTSIDE RECORDS SUMMARY | 2017-12-05 17:20 | XMS REPORT ---
Author Author JAMES TIGRE [facility] Address [address] [place] [address] Care Team Providers Care Covered Button Maker Name Role Phone RACHEL RAMIREZLYN Unavailable PROBLEMS Type Condition ICD9-CM Code ZZC27-ZN Code Onset Dates Condition Status SNOMED Code Problem DM neuro manif type II E11.49 Active 26649642 Problem Tension headache G44.209 Active 000386519 Problem Pain, unspecified R52 Active 340043731 Problem Viral illness B34.9 Active 38816074 Problem Hyperinsulinemia E16.1 Active 88728826 Problem Menorrhagia with irregular cycle N92.1 Active 194128757 Problem Sleep apnea in adult G47.30 Active 06746599 Problem Other atopic dermatitis L20.89 Active 48134886 Problem Intractable migraine without aura and without status migrainosus G43.019 Active 721457588 Problem Irritable bowel syndrome with diarrhea K58.0 Active 438802920 Problem Essential hypertension I10 Active 47599823 ALLERGIES Substance Reaction Event Type Date Status Codeine hives Drug Allergy Dec, Active Chlorthalidone 25 Mg Tablet hives Non Drug Allergy Dec, Active Hydrochlorothiazide 25 Mg Tablet hives Non Drug Allergy Dec, Active liquid codeine/ pt. can tolerate drugs like hydroco Unknown Non Drug Allergy Dec, Active Red Onion hives Non Drug Allergy Dec, Active ENCOUNTERS Encounter Location Date Diagnosis [facility] [address] [facility] [id number] [address] 17 Sep, 2017 Upper respiratory tract infection, unspecified type J06.9 and BMI 50.0-59.9, adult Z68.43 [facility] [address] [facility] [id number] [place] [address] 08 Sep, 2017 Menorrhagia with irregular cycle N92.1 ; Sleep apnea in adult G47.30 and BMI 50.0-59.9, adult Z68.43 [place] [address] [place] [id number] [place] [address]- 67[address] Sep, [facility] [address] [address]- [address] Aug, [facility] [address] [address]- [address] Aug, [place] [address] 8[address]- 0560 Aug, [place] [address] 40959- 7629 Aug, LLQ pain R10.32 ; Irritable bowel syndrome with diarrhea K58.0 ; Change in bowel habits R19.4 ; Essential hypertension I10 and BMI 50.0- 59.9, adult Z68.43 [place] [address] 49186- 1223 Aug, [place] [address] [place] [id number] [place] [address]357- 4022 Aug, [facility] [address] [address] Aug, Essential hypertension I10 and BMI 50.0-59.9, adult Z68.43 [place] [address] 27735- 8429 Aug, [facility] [id number] [place] [address]- 5910 Aug, [facility] [address] [address] Aug, Allergic disorder, initial encounter T78.40XA and BMI 50.0- 59.9, adult Z68.43 [facility] [address] [place] [id number] [place] [address] Jul, Other atopic dermatitis L20.89 and BMI 50.0-59.9, adult Z68.43 [facility] [address] 93870- 0896 Jul, Intractable migraine without aura and without status migrainosus G43.019 and BMI 50.0-59.9, adult Z68.43 [facility] [address] 25044- 2627 Jun, DM neuro manif type II E11.49 ; Tension headache G44.209 ; Breast cancer screening Z12.31 and BMI 50.0-59.9, adult Z68.43 [place] [address] 12783- 6255 Jun, Tension headache G44.209 ; Breast cancer screening Z12.31 ; BMI 50.0-59.9, adult Z68.43 and DM neuro manif type II E11.49 [facility] [address] [address] Apr, Dysuria R30.0 and Acute cystitis with hematuria N30.01 [place] [address] 36388- 2498 Apr, Hyperinsulinemia E16.1 [place] [address] 17839- 9635 Mar, Acute non-recurrent maxillary sinusitis J01.00 [place] [address] 91839- 8440 Feb, Cellulitis of unspecified part of limb L03.119 ; Spider bite wound, accidental or unintentional, subsequent encounter T63.301D and BMI 50.0-59.9, adult Z68.43 [facility] [address] 75881- 7121 Jan, [facility] [address] 08352- 4188 Jan, Urinary tract infection, site unspecified N39.0 [place] [address] [address] [id number] [place] [address] 37231- 1838 Jan, Acute gastritis without hemorrhage, unspecified gastritis type K29.00 [place] [address] 39255- 7392 30 Dec, 2016 Pain in right leg M79.604 [place] [address] 19438- 1256 Dec, Hyperinsulinemia E16.1 and Pain in right leg M79.604 [place] [address] 89568- 8729 Dec, Angioedema, initial encounter T78.3XXA [place] [address] 30622- 3945 15 Dec, 2016 Dental examination Z01.20 [place] [address] 89578- 3045 Dec, [place] [address] 40965- 6022 Dec, Burning with urination R30.0 and Acute cystitis with hematuria N30.01 [place] [address] 37577- 9293 Oct, [place] [address] 63944- 9747 Sep, [place] [address] 07101- 9369 Aug, Hyperinsulinemia E16.1 [place] [address] 40756- 4013 Aug, [place] [address] 11170- 5284 Jul, [place] [address] 50803- 3707 Jul, Chondromalacia, left knee M94.262 and Acute lateral meniscus tear of left knee, initial encounter S83.282A [facility] [address] 15255- 5266 Jul, [facility] [address] [place] [id number] 2546 Jun, Hyperinsulinemia E16.1 [facility] [address] [place] [address] 2546 Jun, Dysuria R30.0 ; Back pain M54.9 ; Acute pain of left knee M25.562 and Hyperinsulinemia E16.1 [facility] [address] 46871- 0476 Jun, Acute non-recurrent maxillary sinusitis J01.00 [facility] [address] 17152- 0436 Jun, Dysuria R30.0 [facility] [address] 98003- 8525 Jun, Dysuria R30.0 [facility] [address] 15356- 5502 Jun, [facility] [address] 14459- 7315 May, Dysuria R30.0 and Acute cystitis with hematuria N30.01 [facility] [address] 39651- 2546 May, Hyperinsulinemia E16.1 [facility] [address] [place] [id number] [place] [address] 44282- 8334 May, [facility] [address] 85708- 2546 May, Sore throat J02.9 [facility] [address] 83758- 6057 May, [facility] [address] 51401- 8895 08 Mar, 2016 Hyperinsulinemia E16.1 [facility] [address] 43152- 5020 Jan, Hyperinsulinemia E16.1 [facility] [address] 41757- 7846 Dec, DM neuro manif type II E11.49 [facility] [address] 39355- 0471 November, Hyperinsulinemia E16.1 and Hypertension I10 [facility] [address] 06075- 6452 Oct, [facility] [address] 53236- 4699 Oct, Hyperinsulinemia E16.1 [facility] [address] 36765- 8533 Oct, Pain, unspecified R52 [facility] [address] 07087- 0648 Oct, Pain in right foot M79.671 and Hyperinsulinemia E16.1 [facility] [address] 07446- 9953 Oct, Hyperinsulinemia E16.1 [facility] [address] 02887- 1143 Oct, Hyperinsulinemia E16.1 [facility] [address] 79347- 9962 17 Aug, 2015 Hypertension I10 and Viral illness B34.9 [facility] [address] 06504- 0633 18 May, 2015 Back pain M54.9 [facility] [address] 54664- 2534 14 Oct, 2014 [facility] [address] 68242- 3879 Oct, [facility] [place] [facility] [address] [id number] [place] [address]- 0826 Sep, [facility] [place] [facility] [address] [id number] [place] [address]- 1554 Sep, [facility] [place] [facility] [address] [id number] [place] [address]- 4255 Sep, [facility] [place] [facility] [address] [id number] [place] [address]- 1003 Sep, [facility] [place] [facility] [address] [id number] [place] [address]- 2082 Sep, [facility] [place] [facility] [address] [id number] [place] [address]- 1704 Sep, [facility] [place] [facility] [address] [id number] [place] [address]- 4736 Sep, [facility] [place] [facility] [address] [id number] [place] [address]- 3877 Sep, [facility] [place] [facility] [address] [id number] [place] [address]- 8439 Sep, [facility] [place] [facility] [address] [id number] [place] [address]- 8724 Sep, [facility] [place] [facility] [address] [id number] [place] [address]- 6756 Sep, [facility] [place] [facility] [address] [id number] [place] [address]- 6441 Sep, [facility] [place] [facility] [address] [id number] [place] [address]- 0435 Mar, [facility] [place] [facility] [address] [id number] [place] [address]- 9429 Mar, [facility] [place] [facility] [address] [id number] [place] [address]- 7498 Feb, [facility] [place] [facility] [address] [id number] [place] [address]- 8425 Feb, [facility] [place] [facility] [address] [id number] [place] [address]- 7604 Feb, [facility] [place] [facility] [address] [id number] [place] [address]- 6392 Feb, [facility] [place] [facility] [address] [id number] [place] [address]- 7967 Dec, [facility] [place] [facility] [address] [id number] [place] [address]- 8206 Dec, [facility] [place] [facility] [address] [id number] [place] [address]- 7224 Dec, [facility] [place] [facility] [address] [id number] [place] [address]- 2981 Dec, [facility] [place] [facility] [address] [id number] [place] [address]- 7581 Dec, [facility] [place] [facility] [address] [id number] [place] [address]- 1207 Dec, [facility] [place] [facility] [address] [id number] [place] [address]- 4145 Dec, [facility] [place] [facility] [address] [id number] [place] [address]- 9153 Sep, [facility] [place] [facility] [address] [id number] [place] [address]- 5341 Sep, [facility] [place] [facility] [address] [id number] [place] [address]- 3337 Sep, [facility] [place] [facility] [address] [id number] [place] [address]- 2432 Sep, [facility] [place] [facility] [address] [id number] [place] [address]- 0114 Sep, [facility] [place] [facility] [address] [id number] [place] [address]- 9202 Sep, [facility] [place] [facility] [address] [id number] [place] [address]- 8198 Sep, [facility] [place] [facility] [address] [id number] [place] [address]- 6770 Sep, [facility] [place] [facility] [address] [id number] [place] [address]- 6031 Jul, [facility] [place] [facility] [address] [id number] [place] [address]- 3092 Jul, [facility] [place] [facility] [address] [id number] [place] [address]- 6990 Jun, [facility] [place] [facility] [address] [id number] [place] [address]- 1768 Jun, [facility] [place] [facility] [address] [id number] [place] [address]- 5499 May, [facility] [place] [facility] [address] [id number] [place] [address]- 5881 May, [facility] [place] [facility] [address] [id number] [place] [address]- 8018 May, [facility] [place] [facility] [address] [id number] [place] [address]- 7938 May, [facility] [place] [facility] [address] [id number] [place] [address]- 7025 May, [facility] [place] [facility] [address] [id number] [place] [address]- 3950 May, [facility] [place] [facility] [address] [id number] [place] [address]- 0291 May, [facility] [place] [facility] [address] [id number] [place] [address]- 9293 Apr, [facility] [place] [facility] [address] [id number] [place] 264[address] Apr, [facility] [place] [facility] [address] [id number] [place] [address]- 4539 Apr, [facility] [address] [id number] [place] [address]- 6407 Apr, [facility] [place] [facility] [address] [id number] [place] [address]- 0706 Apr, [facility] [place] [facility] [address] [id number] [place] [address]- 2546 Apr, [facility] [place] [facility] [address] [id number] [place] [address]- 2546 Mar, [facility] [place] [facility] [address] [id number] [place] [address]- 3667 Feb, [facility] [place] [facility] [address] [id number] [place] [address]- 0226 Jan, [facility] [place] [facility] [address] [id number] [place] [address]- 2546 Jan, [facility] [place] [facility] [address] [id number] [place] [address]- 3561 Jan, [facility] [place] [facility] [address] [id number] [place] [address]- 9700 Dec, [facility] [place] [facility] [address] [id number] [place] [address]- 8056 November, [facility] [place] [facility] [address] [id number] [place] [address]- 2546 November, [facility] [place] [facility] [address] [id number] [place] [address]- 2546 November, [facility] [place] [facility] [address] [id number] [place] [address]- 2546 November, [facility] [place] [facility] [address] [id number] [place] [address]- 2546 Oct, [facility] [place] [facility] [address] [id number] [place] [address]- 2546 Aug, [facility] [place] [facility] [address] [id number] [place] [address]- 7354 Aug, 2012 [facility] [place] [facility] [address] [id number] [place] [address]- 2506 Aug, 2012 [facility] [place] [facility] [address] [id number] [place] [address] 2546 Aug, 2012 [facility] [place] [facility] [address] [id number] [place] [address] 2546 Aug, 2012 [facility] [place] [facility] [address] [id number] [place] [address] 2549 Aug, [facility] [place] [facility] [address] [id number] [place] [address]- 1417 Jul, [facility] [place] [facility] [address] [facility] [id number] [place] [address]- 7695 May, [facility] [place] [facility] [address] [id number] [place] [address]- 1980 May, [facility] [place] [facility] [address] [id number] [place] [address]- 4083 May, [facility] [place] [facility] [address] [facility] [id number] [place] [address]- 2551 May, [facility] [place] [facility] [address] [facility] [id number] [place] [address]- 9628 May, [facility] [place] [facility] [address] [facility] [id number] [place] [address]- 3755 May, [facility] [place] [facility] [address] [id number] [place] [address] 2548 May, [facility] [place] [facility] [address] [facility] [id number] [place] [address]- 3976 Apr, [facility] [place] [facility] [address] [id number] [place] [address] 2546 Apr, [facility] [place] [facility] [address] [facility] [id number] [place] [address]- 6027 Apr, [facility] [place] [facility] [address] [id number] [place] [address]- 7590 Apr, [facility] [place] [facility] [address] [id number] [place] [address]- 1156 Apr, [facility] [place] [facility] [address] [id number] [place] [address]- 6891 Sep, [facility] [place] [facility] [address] [id number] [place] [address]- 7429 Aug, [facility] [place] [facility] [address] [id number] [place] [address]- 0226 Aug, [facility] [place] [facility] [address] [id number] [place] [address]- 6956 Aug, [facility] [place] [facility] [address] [id number] [place] [address]- 0326 Aug, [facility] [place] [facility] [address] [id number] [place] [address]- 5576 Aug, [facility] [place] [facility] [address] [id number] [place] [address]- 1441 Jul, [facility] [place] [facility] [address] [id number] [place] [address]- 4643 Jul, [facility] [place] [facility] [address] [id number] [place] [address]- 2283 Jul, [facility] [place] [facility] [address] [id number] [place] [address]- 3662 Jun, [facility] [place] [facility] [address] [id number] [place] [address] 2546 Jun, [facility] [place] [facility] [address] [id number] [place] [address]- 0494 Jun, [facility] [place] [facility] [address] [id number] [place] [address]- 1906 May, [facility] [place] [facility] [address] [facility] [id number] [place] [address]- 7101 Apr, [facility] [address] [facility] [id number] [place] [address]- 0055 Apr, [facility] [address] [facility] [id number] [place] [address]- 6742 Apr, [facility] [address] [facility] [id number] [place] [address]- 8635 Apr, IMMUNIZATIONS No Known Immunizations SOCIAL HISTORY Never Assessed REASON FOR VISIT dental est. care PLAN OF CARE Activity Details Follow Up scot Reason:RAS VITAL SIGNS Blood pressure systolic 126 mmHg 2016-12-30 Blood pressure diastolic 81 mmHg 2016-12-30 MEDICATIONS Medication Instructions Dosage Frequency Start Date End Date Duration Status Trulicity 1.5 MG/0.5ML Subcutaneous once weekly inject 0.5 ml Oct, 90 days Active Propranolol HCl 10 MG TAKE ONE TABLET BY MOUTH TWICE DAILY 30 Active Imitrex 50 MG Orally Twice a day 1 tablet as needed 12h 30 Active Spironolactone 25 MG TAKE ONE TABLET BY MOUTH ONCE DAILY 30 Active Diltiazem HCl ER Beads 240 MG TAKE ONE CAPSULE BY MOUTH DAILY 30 Active Metformin HCl 500 MG Orally 2 times a day 1 tablet with meals 12h 90 Active RESULTS No Results PROCEDURES Procedure Date Ordered Result Body Site INTRAORL-PERIAPICAL 1 FILM [id number] December 30, 2016 INTRAORL-PERIAPICAL EA ADD FILM December 30, 2016 INTRAORL-PERIAPICAL EA ADD FILM December 30, 2016 INTRAORL-PERIAPICAL EA ADD FILM December 30, 2016 Scaling Gingiv Inflammation December 30, 2016 BITEWINGS - FOUR FILMS December 30, 2016 INSTRUCTIONS MEDICATIONS ADMINISTERED No Known Medications MEDICAL (GENERAL) HISTORY Type Description Date Medical History hypertension Surgical History x 3 Surgical History cholecystectomy Surgical History Chemical Stress Test, EKG, Echo 05/2016 Hospitalization History surgeries Hospitalization History UTI VC 05/2016
--- OUTSIDE RECORDS SUMMARY | 2017-12-05 17:22 | XMS REPORT ---
Author Author CARISA KHAN Organization [facility] Address [address] [place] [address] Care Team Providers Care Laboratory Operations Coordinator Name Role Phone CARISA KHAN Unavailable PROBLEMS Type Condition ICD9-CM Code UOU15-IT Code Onset Dates Condition Status SNOMED Code Problem DM neuro manif type II E11.49 Active 47919947 Problem Tension headache G44.209 Active 028216324 Problem Pain, unspecified R52 Active 485537430 Problem Viral illness B34.9 Active 81807289 Problem Hyperinsulinemia E16.1 Active 08531061 Problem Menorrhagia with irregular cycle N92.1 Active 875037350 Problem Sleep apnea in adult G47.30 Active 51618985 Problem Other atopic dermatitis L20.89 Active 42732911 Problem Intractable migraine without aura and without status migrainosus G43.019 Active 645230949 Problem Irritable bowel syndrome with diarrhea K58.0 Active 201053868 Problem Essential hypertension I10 Active 96820593 ALLERGIES No Information ENCOUNTERS Encounter Location Date Diagnosis [facility] [id number] [place] [address]32- [address] November, [facility] [address] [address] Sep, Upper respiratory tract infection, unspecified type J06.9 and BMI 50.0-59.9, adult Z68.43 [facility] [id number] [place] [address] 77876- 3153 Sep, Menorrhagia with irregular cycle N92.1 ; Sleep apnea in adult G47.30 and BMI 50.0-59.[address], [address] [facility] [address] [address] Sep, [facility] [address] [place] [id number] [place] [address]- [address]006 Aug, [facility] [address] [address] Aug, [facility] [address] [address] Aug, [facility] [address] [address]- 0659 Aug, LLQ pain R10.32 ; Irritable bowel syndrome with diarrhea K58.0 ; Change in bowel habits R19.4 ; Essential hypertension I10 and BMI 50.0- 59.9, adult Z68.43 [place] [address] [address]- [address] Aug, [place] [address] [address]- 6[address] Aug, [facility] [place] [address] [address] Aug, Essential hypertension I10 and BMI 50.0-59.9, adult Z68.43 [place] [address] [address]- 2540 19 Aug, 2017 [place] [address] [address]- [address] Aug, [facility] [place] [address] [address] 02 Aug, 2017 Allergic disorder, initial encounter T78.40XA and BMI 50.0- 59.9, adult Z68.43 [facility] [place] [address] [address] Jul, Other atopic dermatitis L20.89 and BMI 50.0-59.9, adult Z68.43 [place] [address] 33039- 18[address] 16 Jul, 2017 Intractable migraine without aura and without status migrainosus G43.019 and BMI 50.0-59.9, adult Z68.43 [facility] [address] 39825- 3560 Jun, DM neuro manif type II E11.49 ; Tension headache G44.209 ; Breast cancer screening Z12.31 and BMI 50.0-59.9, adult Z68.43 [place] [address] 73941- 3349 Jun, Tension headache G44.209 ; Breast cancer screening Z12.31 ; BMI 50.0-59.9, adult Z68.43 and DM neuro manif type II E11.49 [facility] [address] [address] Apr, Dysuria R30.0 and Acute cystitis with hematuria N30.[address] [address]- 9591 Apr, Hyperinsulinemia E16.[address] 46616- 0158 Mar, Acute non-recurrent maxillary sinusitis J01.[address] 55[address]- 43[address] Feb, Cellulitis of unspecified part of limb L03.119 ; Spider bite wound, accidental or unintentional, subsequent encounter T63.301D and BMI 50.0-59.9, adult Z68.43 [facility] [address] 29467- 6894 Jan, [address] [address]- [address]70 Jan, Urinary tract infection, site unspecified N39.[address] 47463- 2210 Jan, Acute gastritis without hemorrhage, unspecified gastritis type K29.00 [place] [id number] [place] [address] 88949- 4991 30 Dec, 2016 Pain in right leg M79.604 [place] [address] 74462- 7134 28 Dec, 2016 Hyperinsulinemia E16.1 and Pain in right leg M79.604 [place] [address] 46574- 4449 27 Dec, 2016 Angioedema, initial encounter T78.3XXA [place] [address] 08560- 5739 15 Dec, 2016 Dental examination Z01.20 [place] [address] 32878- 8714 13 Dec, 2016 [place] [address] 71224- 0150 Dec, Burning with urination R30.0 and Acute cystitis with hematuria N30.01 [place] [address] [place] [id number] [place] [address] 01165- 8291 Oct, [place] [address] 53515- 2113 Sep, [place] [address] [place] [id number] [place] [address] 93858- 4556 Aug, Hyperinsulinemia E16.1 [place] [address] 46810- 1827 Aug, [place] [address] [place] [id number] [place] [address] 50117- 4986 Jul, [place] [address] 51452- 6312 Jul, Chondromalacia, left knee M94.262 and Acute lateral meniscus tear of left knee, initial encounter S83.282A [place] [address] 80095- 7201 Jul, [place] [address] [place] [id number] [place] [address]25 2546 Jun, Hyperinsulinemia E16.1 [facility] [address] 12997- 2546 Jun, Dysuria R30.0 ; Back pain M54.9 ; Acute pain of left knee M25.[address] [facility] [address] 15683 2546 Jun, Acute non-recurrent maxillary sinusitis J01.00 [facility] [address] [address] 2546 Jun, Dysuria R30.0 [facility] [address] [address] 2546 Jun, Dysuria R30.0 [facility] [address] [address] 2546 Jun, [facility] [address] 35492 2548 May, Dysuria R30.0 and Acute cystitis with hematuria N30.01 [facility] [address] [place] [id number] [place] [address] 52779 2546 May, Hyperinsulinemia E16.1 [facility] [address] [place] [id number] [place] [address] 38828- 3376 May, [facility] [address] [place] [id number] [place] [address] 37513 2546 May, Sore throat J02.9 [facility] [address] [place] [id number] [place] [address] 17199 2546 May, [facility] [address] 06829- 2546 08 Mar, [address] [facility] [address] [place] [id number] [place] [address] 98409 2546 Jan, Hyperinsulinemia E16.1 [facility] [address] [place] [id number] [place] [address] 34516- 8047 Dec, DM neuro manif type II E11.49 [facility] [address] 07214- 1142 November, Hyperinsulinemia E16.[address] [facility] [address] 60972- 6845 Oct, [facility] [address] 01724- 2052 Oct, Hyperinsulinemia E16.1 [facility] [address] 71150- 4972 Oct, Pain, unspecified R52 [facility] [address] 56515- 7893 14 Oct, 2015 Pain in right foot M79.[address] [facility] [address] 23685- 9487 Oct, Hyperinsulinemia E16.1 [facility] [address] 78829- 6334 Oct, Hyperinsulinemia E16.1 [facility] [address] 04259- 8177 17 Aug, 2015 Hypertension I10 and Viral illness B34.9 [facility] [address] 13899- 2459 May, Back pain M54.9 [facility] [address] 21270- 2378 Oct, [facility] [address] 13034- 1827 Oct, [facility] [address] 02416- 8465 Sep, [facility] [address] [place] [address]- 6369 30 Sep, 2014 [facility] [place] [facility] [address] [id number] [place] [address]- 0987 Sep, 2014 [facility] [place] [facility] [address] [id number] [place] [address]- 0437 Sep, 2014 [facility] [place] [facility] [address] [id number] [place] [address]- 0528 Sep, 2014 [facility] [place] [facility] [address] [id number] [place] [address]- 8259 Sep, 2014 [facility] [place] [facility] [address] [id number] [place] [address]- 1609 Sep, 2014 [facility] [place] [facility] [address] [id number] [place] [address]- 1351 Sep, 2014 [facility] [place] [facility] [address] [id number] [place] [address]- 2156 Sep, 2014 [facility] [place] [facility] [address] [id number] [place] [address]- 0653 Sep, 2014 [facility] [place] [facility] [address] [id number] [place] [address]- 5107 Sep, 2014 [facility] [place] [facility] [address] [id number] [place] [address]- 3379 Sep, 2014 [facility] [place] [facility] [address] [id number] [place] [address]- 5302 Mar, [facility] [place] [facility] [address] [id number] [place] [address]- 2331 Mar, [facility] [place] [facility] [address] [id number] [place] [address]- 9100 Feb, [facility] [place] [facility] [address] [id number] [place] [address]- 3610 Feb, [facility] [place] [facility] [address] [id number] [place] [address]- 7186 Feb, [facility] [place] [facility] [address] [id number] [place] [address]- 6544 Feb, [facility] [place] [facility] [address] [id number] [place] [address]- 8678 Dec, [facility] [place] [facility] [address] [id number] [place] [address]- 6948 Dec, [facility] [place] [facility] [address] [id number] [place] [address]- 0136 Dec, [facility] [place] [facility] [address] [id number] [place] [address]- 5738 Dec, [facility] [place] [facility] [address] [id number] [place] [address]- 0427 Dec, [facility] [place] [facility] [address] [id number] [place] [address]- 8528 Dec, [facility] [place] [facility] [address] [id number] [place] [address]- 6951 Dec, [facility] [place] [facility] [address] [id number] [place] [address]- 6147 Sep, [facility] [place] [facility] [address] [id number] [place] [address]- 4582 Sep, [facility] [place] [facility] [address] [id number] [place] [address]- 8809 Sep, [facility] [place] [facility] [address] [id number] [place] [address]- 6569 Sep, [facility] [place] [facility] [address] [id number] [place] [address]- 9405 Sep, [facility] [place] [facility] [address] [id number] [place] [address]- 9439 Sep, [facility] [place] [facility] [address] [id number] [place] [address]- 7768 Sep, [facility] [place] [facility] [address] [id number] [place] [address]- 8967 Sep, [facility] [place] [facility] [address] [id number] [place] [address]- 8388 Jul, [facility] [place] [facility] [address] [id number] [place] [address]- 8070 Jul, [facility] [place] [facility] [address] [facility] [id number] [place] [address]- 8514 Jun, [facility] [place] [facility] [address] [id number] [place] [address]- 2514 Jun, [facility] [place] [facility] [address] [id number] [place] [address]- 1598 May, [facility] [place] [facility] [address] [id number], [place] [address]- 1744 May, [facility] [place] [facility] [address] [id number], [place] [address]- 0277 May, [facility] [place] [facility] [address] [id number], [place] [address]- 5861 May, [facility] [place] [facility] [address] [id number], [place] [address]- 8795 May, [facility] [place] [facility] [address] [id number], [place] [address]- 3168 May, [facility] [place] [facility] [address] [id number], [place] [address]- 1871 05 May, 2013 [facility] [place] [facility] [address] [id number], [place] [address]- 5234 Apr, [facility] [place] [facility] [address] [id number], [place] [address]- 2712 Apr, [facility] [place] [facility] [address] [facility] [id number], [place] [address]- 8373 Apr, [facility] [place] [facility] [address] [id number], [place] [address]- 0476 Apr, [facility] [place] [facility] [address] [id number] [place] [address]- 5392 Apr, [facility] [address] [id number] [place] [address]- 0491 Apr, [facility] [address] [id number] [place] [address]- 2176 Mar, [facility] [address] [id number] [place] [address]- 0980 Feb, [facility] [address] [id number] [place] [address]- 6973 Jan, [facility] [address] [id number] [place] [address]- 2057 Jan, [facility] [address] [id number] [place] [address]- 8631 Jan, [facility] [address] [id number] [place] [address]- 4696 Dec, [facility] [address] [id number] [place] [address]- 7268 November, [facility] [address] [id number] [place] [address]- 6355 November, [facility] [address] [id number] [place] [address]- 0423 November, [facility] [address] [id number] [place] [address]- 4366 November, [facility] [address] [id number] [place] [address]- 1060 Oct, [facility] [address] [id number] [place] [address]- 9059 Aug, [facility] [address] [id number] [place] [address]- 7826 Aug, [facility] [address] [id number] [place] 7013 Aug, [facility] [place] [facility] [address] [id number] [place] [address]- 2026 Aug, [facility] [place] [facility] [address] [id number] [place] [address]- 7242 Aug, [facility] [place] [facility] [address] [id number] [place] [address]- 2526 Aug, [facility] [place] [facility] [address] [id number] [place] [address]- 7747 Jul, [facility] [place] [facility] [address] [id number] [place] [address]- 4071 May, [facility] [place] [facility] [address] [id number] [place] [address]- 8947 May, [facility] [place] [facility] [address] [facility] [id number] [place] [address]- 8585 May, [facility] [place] [facility] [address] [id number] [place] [address]- 4133 May, [facility] [place] [facility] [address] [id number] [place] [address]- 7866 May, [facility] [place] [facility] [address] [facility] [id number] [place] [address]- 2053 May, [facility] [place] [facility] [address] [id number], [place] [address]- 0699 May, [facility] [place] [facility] [address] [id number], [place] [address]- 8795 Apr, [facility] [place] [facility] [address] [id number] [place] [address]- 9653 Apr, [facility] [place] [facility] [address] [id number], [place] [address]- 2257 Apr, [facility] [place] [facility] [address] [facility] [id number] [place] [address]- 5509 Apr, [facility] [place] [facility] [address] [id number] [place] [address]- 5357 30 Apr, 2012 [facility] [address] [id number] [place] [address]- 4936 Sep, [facility] [place] [facility] [address] [id number] [place] [address] 2546 24 Aug, 2011 [facility] [place] [facility] [address] [id number] [place] [address] 2546 16 Aug, 2011 [facility] [place] [facility] [address] [id number] [place] [address] 2546 15 Aug, 2011 [facility] [place] [facility] [address] [id number] [place] [address]- 0216 08 Aug, 2011 [facility] [place] [facility] [address] [facility] [id number] [place] [address] 2546 Aug, [facility] [place] [facility] [address] [facility] [id number] [place] [address]- 4040 Jul, [facility] [place] [facility] [address] [id number] [place] [address]- 9273 Jul, [facility] [place] [facility] [address] [facility] [id number] [place] [address]- 8874 Jul, [facility] [place] [facility] [address] [facility] [id number] [place] [address]- 3914 Jun, [facility] [place] [facility] [address] [id number] [place] [address] 2546 Jun, [facility] [place] [facility] [address] [id number] [place] [address] 2546 Jun, [facility] [place] [facility] [address] [facility] [id number] [place] [address] 2546 May, [facility] [place] [facility] [address] [facility] [id number] [place] [address] 2546 15 Apr, 2011 [facility] [place] [facility] [address] [facility] [id number] [place] [address] 2546 Apr, [facility] [address] [facility] [id number] [place] [address]- 9233 Apr, [facility] [address] [facility] [id number] [place] [address]- 1596 Apr, IMMUNIZATIONS No Known Immunizations SOCIAL HISTORY Never Assessed REASON FOR VISIT Medication question PLAN OF CARE VITAL SIGNS MEDICATIONS Medication Instructions Dosage Frequency Start Date End Date Duration Status Azithromycin 500 MG Orally Once a day 1 tablet 24h Jan, Feb, 05 days Active RESULTS No Results PROCEDURES No Known procedures INSTRUCTIONS MEDICATIONS ADMINISTERED No Known Medications MEDICAL (GENERAL) HISTORY Type Description Date Medical History hypertension Surgical History x 3 Surgical History cholecystectomy Surgical History Chemical Stress Test, EKG, Echo 05/2016 Hospitalization History surgeries Hospitalization History UTI VC 05/2016
== END 2017-12-05 03:02 | disposition home or self-care (01) ==
LOC: EDUNIT# 23:22 → ER 23:23
DX: R10.32 Left lower quadrant pain (principal); R11.2 Nausea with vomiting, unspecified; R19.7 Diarrhea, unspecified; I10 Essential (primary) hypertension; G43.909 Migraine, unspecified, not intractable, without status migrainosus; E66.01 Morbid (severe) obesity due to excess calories; E11.9 Type 2 diabetes mellitus without complications; Z68.43 Body mass index [BMI] 50.0-59.9, adult; Z82.49 Family history of ischemic heart disease and other diseases of the circulatory system; Z88.5 Allergy status to narcotic agent; Z88.8 Allergy status to other drugs, medicaments and biological substances; Z87.59 Personal history of other complications of pregnancy, childbirth and the puerperium; Z87.01 Personal history of pneumonia (recurrent)
CPT/HCPCS: 36415; 74022; 74176; 80053; 81000; 82150; 83690; 84703; 85025; 96361; 96374; 96375; 96376

== ENCOUNTER 2018-01-02 06:40 | Outpatient (CLI) | payer MEDICAID ==
[~2018-01-02] VITALS: Ht 172.7 cm; Wt 152.0 kg
[~2018-01-02 06:40] MED LIST changes: +DICY20TA10 PO; +ONDA4TAB8 PO
[2018-01-02] MEDS ORDERED: MELO7.5T46 PO (13:12)
[2018-01-02] MEDS ORDERED: LORA10TA76 PO (13:12)
[2018-01-02] MEDS ORDERED: PANT40TA3 PO (13:12)
[2018-01-02] MEDS ORDERED: FAMO40TA72 PO (13:12)
[2018-01-02] MEDS ORDERED: FLUT9.9S NS (13:12)
== END 2018-01-02 13:16 | disposition home or self-care (01) ==
LOC: PREOP 06:40
PROVIDERS: ATTEND Surgery
DX: Z01.818 Encounter for other preprocedural examination (principal)

== ENCOUNTER 2018-02-01 05:41 | Outpatient (CLI) | payer MEDICAID ==
[~2018-02-01] VITALS: Ht 172.7 cm; Wt 152.0 kg
[~2018-02-01 05:41] MED LIST changes: +FAMO40TA72 PO; +FLUT9.9S NS; +LORA10TA76 PO; -LOSA50TA36; +LOSA50TA36 PO; +MELO7.5T46 PO; -METF500T5; +METF500T5 PO; +PANT40TA3 PO; +SPIR25TA5 PO
== END 2018-02-01 14:57 ==
LOC: PREOP 05:41
PROVIDERS: ATTEND Surgery
DX: Z01.818 Encounter for other preprocedural examination (principal); R19.7 Diarrhea, unspecified; K62.5 Hemorrhage of anus and rectum

== ENCOUNTER 2018-02-08 12:38 | Day surgery (SDC) | payer MEDICAID ==
[~2018-02-08] VITALS: Ht 172.7 cm; Wt 152.0 kg
--- OUTSIDE RECORDS SUMMARY | 2018-02-08 12:43 | XMS REPORT ---
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 Name Role Phone CAT NICHOLE Unavailable Unavailable PROBLEMS Type Condition ICD9-CM Code MBU32-EY Code Onset Dates Condition Status SNOMED Code Problem Hyperinsulinemia E16.1 Active 46003249 Problem Tension headache G44.209 Active 285915293 Problem DM neuro manif type II E11.49 Active 33747615 Problem Iron deficiency anemia due to chronic blood loss D50.0 Active 536595189 Problem Menorrhagia with irregular cycle N92.1 Active 262839579 Problem Essential hypertension I10 Active 61934672 Problem Intractable migraine without aura and without status migrainosus G43.019 Active 887251614 Problem Sleep apnea in adult G47.30 Active 52239676 Problem Irritable bowel syndrome with diarrhea K58.0 Active 538400418 ALLERGIES Substance Reaction Event Type Date Status Codeine hives Drug Allergy Sep, Active liquid codeine/ pt. can tolerate drugs like hydroco Unknown Non Drug Allergy Sep, Active Red Onion hives Non Drug Allergy Sep, Active Chlorthalidone 25 Mg Tablet hives Non Drug Allergy Sep, Active Hydrochlorothiazide 25 Mg Tablet hives Non Drug Allergy Sep, Active ENCOUNTERS Encounter Location Date Diagnosis [facility] [id number] [address] Jan, Pneumonia of left lung due to infectious organism, unspecified part of lung J18.9 [facility] [id number] [place] [address]65- [address]779 Dec, Pneumonia due to Mycoplasma pneumoniae, unspecified laterality, unspecified part of lung J15.7 and BMI 50.0-59.9, adult Z68.43 [facility] [id number] [address] Dec, [place] [id number] [place] [address] 70906- 7596 Dec, Bronchitis J40 and BMI 50.0-59.9, adult Z68.43 [place] [address] [address]- 5079 November, Bronchitis J40 ; LLQ pain R10.32 and BMI 50.0-59.9, adult Z68.43 [place] [address] 100[address]- 6767 November, Iron deficiency anemia due to chronic blood loss D50.0 [place] [address] 66169- 7914 November, [place] [address] 5[address]29- 0423 November, Iron deficiency anemia due to chronic blood loss D50.0 ; DM neuro manif type II E11.49 ; Menorrhagia with irregular cycle N92.1 and BMI 50.0 -59.9, adult Z68.43 [facility] [place] [address] [address] Oct, Sore throat J02.9 and Acute nasopharyngitis J00 [facility] [address] [address] Oct, Left leg pain M79.605 and BMI 50.0-59.9, adult Z68.43 [facility] [place] [id number] [place] [address] -[address]147 Sep, Upper respiratory tract infection, unspecified type J06.9 and BMI 50.0-59.9, adult Z68.43 [place] [address] [address]- [address] Sep, Menorrhagia with irregular cycle N92.1 ; Sleep apnea in adult G47.30 and BMI 50.0-59.9, adult Z68.43 [place] [id number] [place] [address] 60207- 9235 Sep, [facility] [id number] [place] [address] 37104- 1116 Aug, [facility] [id number] [place] [address] 66915- 0710 Aug, [facility] [address] [address]- 0175 Aug, [facility] [id number] [place] [address] 57449- 4209 Aug, LLQ pain R10.32 ; Irritable bowel syndrome with diarrhea K58.0 ; Change in bowel habits R19.4 ; Essential hypertension I10 and BMI 50.0- 59.9, adult Z68.43 [place] [id number] [place] [address] 64289- 9553 Aug, [facility] [id number] [place] [address] 57442- 3015 Aug, [facility] [id number] [place] [address] 82831 -7137 Aug, Essential hypertension I10 and BMI 50.0-59.9, adult Z68.43 [facility] [id number] [place] [address] 52336- 0693 Aug, [facility] [id number] [place] [address] 04530- 8639 Aug, [facility] [id number] [place] [address] 58935 -0742 02 Aug, 2017 Allergic disorder, initial encounter T78.40XA and BMI 50.0- 59.9, adult Z68.43 [facility] [id number] [place] [address] 18062 -8831 Jul, Other atopic dermatitis L20.89 and BMI 50.0-59.9, adult Z68.43 [facility] [id number] [place] [address] 27659- 1979 Jul, Intractable migraine without aura and without status migrainosus G43.019 and BMI 50.0-59.9, adult Z68.43 [facility] [id number] [place] [address] 59848- 0206 Jun, DM neuro manif type II E11.49 ; Tension headache G44.209 ; Breast cancer screening Z12.31 and BMI 50.0-59.9, adult Z68.43 [facility] [id number] [place] [address] 87641- 9484 Jun, Tension headache G44.209 ; Breast cancer screening Z12.31 ; BMI 50.0-59.9, adult Z68.43 and DM neuro manif type II E11.49 [facility] [id number] [place] [address] 41689 -0119 Apr, Dysuria R30.0 and Acute cystitis with hematuria N30.01 [place] [id number] [place] [address] 60927- 5969 Apr, Hyperinsulinemia E16.1 [place] [address] 23591- 6099 Mar, Acute non-recurrent maxillary sinusitis J01.00 [place] [id number] [place] [address] 41505- 7069 Feb, Cellulitis of unspecified part of limb L03.119 ; Spider bite wound, accidental or unintentional, subsequent encounter T63.301D and BMI 50.0-59.9, adult Z68.43 [facility] [id number] [place] [address] 48421- 5463 Jan, [place] [id number] [place] [address] 31603- 8111 Jan, Urinary tract infection, site unspecified N39.0 [place] [address] 91468- 0940 Jan, Acute gastritis without hemorrhage, unspecified gastritis type K29.00 [place] [address] [address] [id number]- [address]41 30 Dec, 2016 Pain in right leg M79.604 [place] [address] 363166- 5853 Dec, Hyperinsulinemia E16.1 and Pain in right leg M79.604 [place] [address] 27586- 4592 Dec, Angioedema, initial encounter T78.3XXA [place] [address] 02092- 2873 15 Dec, 2016 Dental examination Z01.20 [place] [address] 01807- 4748 Dec, [place] [address] 92509- 4453 Dec, Burning with urination R30.0 and Acute cystitis with hematuria N30.01 [place] [address] 40018- 1332 Oct, [place] [address] 35906- 5542 Sep, [place] [address] 74646- 9651 Aug, Hyperinsulinemia E16.1 [place] [address] 21425- 8282 Aug, [place] [address] 19525- 6392 Jul, [place] [address] 93703- 1627 Jul, Chondromalacia, left knee M94.262 and Acute lateral meniscus tear of left knee, initial encounter S83.282A [facility] [id number] [place] [address] 63810 2546 Jul, [facility] [id number] [place] [address] 07406 2546 Jun, Hyperinsulinemia E16.1 [facility] [id number] [place] [address] 96250 2546 Jun, Dysuria R30.0 ; Back pain M54.9 ; Acute pain of left knee M25.562 and Hyperinsulinemia E16.1 [facility] [id number] [place] [address] 02874 2546 Jun, Acute non-recurrent maxillary sinusitis J01.00 [facility] [id number] [place] [address] 09320 2546 Jun, Dysuria R30.0 [facility] [id number] [place] [address] 79395 2546 Jun, Dysuria R30.0 [facility] [id number] [place] [address] 32362 2546 Jun, [facility] [id number] [place] [address] 28443 2546 May, Dysuria R30.0 and Acute cystitis with hematuria N30.01 [facility] [id number] [place] [address] 18724 2546 May, Hyperinsulinemia E16.1 [facility] [id number] [place] [address] 63565 2546 May, [facility] [id number] [place] [address] 78276 2546 May, Sore throat J02.9 [facility] [id number] [place] [address] 72943 2546 May, [facility] [id number] [place] [address] 40116- 2546 Mar, Hyperinsulinemia E16.1 [facility] [id number] [place] [address] 94134- 5701 Jan, Hyperinsulinemia E16.1 [facility] [address] 49038- 0067 Dec, DM neuro manif type II E11.49 [facility] [address] 53578- 6290 November, Hyperinsulinemia E16.1 and Hypertension I10 [facility] [address] 36600- 4357 Oct, [facility] [address] 71934- 5553 Oct, Hyperinsulinemia E16.1 [facility] [address] 98659- 7874 Oct, Pain, unspecified R52 [facility] [address] 30255- 7722 Oct, Pain in right foot M79.671 and Hyperinsulinemia E16.1 [facility] [address] 72291- 7293 Oct, Hyperinsulinemia E16.1 [facility] [address] 45141- 7591 Oct, Hyperinsulinemia E16.1 [facility] [address] 03239- 3086 17 Aug, 2015 Hypertension I10 and Viral illness B34.9 [facility] [id number] [place] [address] 62383- 5076 May, Back pain M54.9 [facility] [id number] [place] [address] 60845- 8675 14 Oct, 2014 [facility] [id number] [place] [address] 54304- 7948 Oct, [facility] [id number] [address]- 7047 30 Sep, 2014 [facility] [place] [facility] [address] [id number] [place] [address]- 3680 30 Sep, 2014 [facility] [place] [facility] [address] [id number] [place] [address]- 0575 Sep, 2014 [facility] [place] [facility] [address] [id number] [place] [address]- 5489 Sep, 2014 [facility] [place] [facility] [address] [id number] [place] [address]- 6131 Sep, 2014 [facility] [place] [facility] [address] [id number] [place] [address]- 9140 Sep, 2014 [facility] [place] [facility] [address] [id number] [place] [address]- 5888 Sep, 2014 [facility] [place] [facility] [address] [id number] [place] [address]- 6953 Sep, 2014 [facility] [place] [facility] [address] [id number] [place] [address]- 2388 Sep, 2014 [facility] [place] [facility] [address] [id number] [place] [address]- 6105 Sep, 2014 [facility] [place] [facility] [address] [id number] [place] [address]- 2092 Sep, 2014 [facility] [place] [facility] [address] [id number] [place] [address]- 4544 Sep, 2014 [facility] [place] [facility] [address] [id number] [place] [address]- 0701 Mar, [facility] [place] [facility] [address] [id number] [place] [address]- 2612 Mar, [facility] [place] [facility] [address] [id number] [place] [address]- 0151 Feb, [facility] [place] [facility] [address] [id number] [place] 8017 Feb, [facility] [place] [facility] [address] [id number] [place] [address]- 5033 Feb, [facility] [place] [facility] [address] [id number] [place] [address]- 1907 Feb, [facility] [place] [facility] [address] [id number] [place] [address]- 3673 Dec, [facility] [place] [facility] [address] [id number] [place] [address]- 4259 Dec, [facility] [place] [facility] [address] [id number] [place] [address]- 4646 Dec, [facility] [place] [facility] [address] [id number] [place] [address]- 1132 Dec, [facility] [place] [facility] [address] [id number] [place] [address]- 6826 Dec, [facility] [place] [facility] [address] [id number] [place] [address]- 3956 Dec, [facility] [place] [facility] [address] [id number] [place] [address]- 0912 Dec, [facility] [place] [facility] [address] [id number] [place] [address]- 4301 Sep, [facility] [place] [facility] [address] [id number] [place] [address]- 5435 Sep, [facility] [place] [facility] [address] [id number] [address]- 8497 Sep, [facility] [place] [facility] [address] [id number] [place] [address]- 6184 Sep, [facility] [place] [facility] [address] [id number] [place] [address]- 9349 Sep, [facility] [place] [facility] [address] [id number] [place] [address]- 7881 Sep, [facility] [place] [facility] [address] [id number], [place] [address]- 9304 Sep, [facility] [place] [facility] [address] [id number] [place] [address]- 6995 Sep, [facility] [place] [facility] [address] [facility] [id number], [place] [address]- 5762 Jul, [facility] [place] [facility] [address] [facility] [id number] [place] [address]- 3061 Jul, [facility] [place] [facility] [address] [facility] [id number], [place] [address]- 3708 Jun, [facility] [place] [facility] [address] [facility] [id number] [place] [address]- 7547 Jun, [facility] [place] [facility] [address] [facility] [id number] [place] [address]- 0090 May, [facility] [place] [facility] [address] [address]- 1495 May, [facility] [place] [facility] [address] [facility] [id number] [address]- 4264 May, [facility] [place] [facility] [id number] [address]- 2253 May, [facility] [place] [facility] [id number] [address]- 5248 May, [facility] [place] [facility] [address] [facility] [id number], [place] [address]- 0471 May, [facility] [place] [facility] [address] [facility] [id number], [place] [address]- 7418 May, [facility] [place] [facility] [address] [facility] [id number] [address]- 5754 Apr, [facility] [place] [facility] [address] [facility] [id number], [place] [address]- 0105 Apr, [facility] [place] [facility] [address] [facility] [id number], [place] [address]- 1718 Apr, [facility] [place] [facility] [address] [id number] [place] [address]- 4187 Apr, [facility] [place] [facility] [address] [id number] [place] [address]- 3642 Apr, [facility] [place] [facility] [address] [id number] [place] [address] 2546 Apr, [facility] [place] [facility] [address] [id number] [place] [address]- 4379 Mar, [facility] [place] [facility] [address] [id number] [place] [address]- 7744 Feb, [facility] [place] [facility] [address] [id number] [place] [address]- 8524 Jan, [facility] [place] [facility] [address] [id number] [place] [address]- 4449 Jan, [facility] [place] [facility] [address] [id number] [place] [address]- 7173 Jan, [facility] [place] [facility] [address] [id number] [place] [address]- 9711 Dec, [facility] [place] [facility] [address] [id number] [place] [address]- 8800 November, [facility] [place] [facility] [address] [id number] [place] [address]- 8278 November, [facility] [place] [facility] [address] [id number] [place] [address]- 1286 November, [facility] [place] [facility] [address] [id number] [place] [address]- 2548 November, [facility] [place] [facility] [address] [id number] [place] [address]- 6966 Oct, [facility] [place] [facility] [address] [id number] [place] [address]- 2546 Aug, [facility] [place] [facility] [address] [id number] [place] [address]- 0713 Aug, [facility] [place] [facility] [address] [id number] [place] [address]- 4870 Aug, [facility] [place] [facility] [address] [id number] [place] [address]- 3879 Aug, [facility] [place] [facility] [address] [facility] [id number] [place] [address]- 9177 Aug, [facility] [place] [facility] [address] [id number] [place] [address]- 4470 Aug, [facility] [place] [facility] [address] [id number] [place] [address]- 7265 Jul, [facility] [place] [facility] [address] [id number] [place] [address]- 5818 May, [facility] [place] [facility] [address] [facility] [id number] [address]- 9430 May, [facility] [place] [facility] [address] [facility] [id number] [place] [address]- 7706 May, [facility] [place] [facility] [address] [facility] [id number], [place] [address]- 2514 May, [facility] [place] [facility] [address] [facility] [id number], [place] [address]- 6810 May, [facility] [place] [facility] [address] [facility] [id number], [place] [address]- 3865 May, [facility] [place] [facility] [address] [facility] [id number], [place] [address]- 3702 May, [facility] [place] [facility] [address] [facility] [id number], [place] [address]- 8412 Apr, [facility] [place] [facility] [address] [facility] [id number], [place] [address]- 4709 Apr, [facility] [place] [facility] [address] [facility] [id number] [place] [address]- 9842 Apr, [facility] [place] [facility] [address] [id number] [place] [address]- 8523 Apr, [facility] [place] [facility] [address] [id number] [place] [address]- 8951 Apr, [facility] [place] [facility] [address] [id number] [place] [address]- 0126 Sep, [facility] [place] [facility] [address] [id number] [place] [address]- 5886 Aug, [facility] [place] [facility] [address] [id number] [place] [address]- 0996 Aug, [facility] [place] [facility] [address] [id number] [place] [address]- 9226 Aug, [facility] [place] [facility] [address] [id number] [place] [address]- 4950 Aug, [facility] [place] [facility] [address] [id number] [place] [address]- 5866 Aug, [facility] [place] [facility] [address] [id number] [place] [address]- 2240 Jul, [facility] [place] [facility] [address] [id number] [place] [address]- 4194 Jul, [facility] [place] [facility] [address] [id number] [place] [address]- 4540 Jul, [facility] [place] [facility] [address] [id number] [place] [address]- 9832 Jun, [facility] [place] [facility] [address] [id number] [place] [address] 2544 Jun, [facility] [place] [facility] [address] [id number] [place] [address] 2546 Jun, [facility] [place] [facility] [address] [id number] [place] [address]- 8948 May, [facility] [place] [facility] [address] [id number], [place] [address]- 9307 Apr, [facility] [address] [facility] [id number], [place] [address]- 9013 Apr, [facility] [address] [facility] [id number], [place] [address]- 4246 Apr, [facility] [address] [facility] [id number], [place] [address]- 3730 Apr, IMMUNIZATIONS No Known Immunizations SOCIAL HISTORY Never Assessed REASON FOR VISIT sinus infection PLAN OF CARE Activity Details Follow Up prn Reason: VITAL SIGNS Height 69 in 2017-10-01 Weight 351.0 lbs 2017-10-01 Temperature 97.4 degrees Fahrenheit 2017-10-01 Heart Rate 80 bpm 2017-10-01 Respiratory Rate 20 2017-10-01 BMI 51.83 kg/m2 2017-10-01 Blood pressure systolic 120 mmHg 2017-10-01 Blood pressure diastolic 80 mmHg 2017-10-01 MEDICATIONS Medication Instructions Dosage Frequency Start Date End Date Duration Status Onzetra Xsail 11 MG/NOSEPC Nasally Once a day 1 spray in each nostril as needed one time 24h 20 Jun, 2017 1 day(s) Not-Taking HydrOXYzine HCl 25 MG Orally every 6 hrs 1 tablet as needed 6h Dec, 0 days Active Metformin HCl 500 MG Orally 2 times a day 1 tablet with meals 12h 90 Active Imitrex 50 MG Orally Twice a day 1 tablet as needed 12h 30 Active Trulicity 1.5 MG/0.5ML Subcutaneous once weekly inject 0.5 ml Oct, 90 days Active Zyrtec Allergy 10 MG Orally Once a day 1 tablet 24h Active Diltiazem HCl ER Beads 240 MG TAKE ONE CAPSULE BY MOUTH DAILY 30 Active Azithromycin 250 MG Orally Once a day 2 tablets on the first day, then 1 tablet daily for 4 days 24h 5 day(s) Active Mobic 7.5 MG Orally Once a day as needed for lega=pain 1-2tablet Dec, 90 days Active Spironolactone 25 MG TAKE ONE TABLET BY MOUTH ONCE DAILY 30 Active Nasonex 50 MCG/ACT Nasally Once a day 2 sprays in each nostril 24h Sep, 2 doses Active Protonix 40 MG Orally Once a day 1 tablet 24h Aug, 30 days Active Losartan Potassium 50 mg Orally Once a day 1 tablet 24h 26 Aug, 2017 30 day(s) Active Propranolol HCl 10 MG TAKE ONE TABLET BY MOUTH TWICE DAILY 30 Active Triamcinolone Acetonide 0.1 % Externally Twice a day 1 application to affected area 12h Jul, 14 days Active Pepcid 20 MG Orally Once a day 1 tablet 24h Active RESULTS No Results PROCEDURES No Known procedures INSTRUCTIONS MEDICATIONS ADMINISTERED No Known Medications MEDICAL (GENERAL) HISTORY Type Description Date Medical History hypertension Medical History Sleep apnea in adult Surgical History x 3 Surgical History cholecystectomy Surgical History Chemical Stress Test, EKG, Echo 05/2016 Hospitalization History surgeries Hospitalization History UTI [facility] 05/2016
--- OUTSIDE RECORDS SUMMARY | 2018-02-08 12:43 | XMS REPORT ---
Author Author Jason HETAL Organization [facility] Address [address] [place] [address] Care Team Providers Care Rn Review Name Role Phone tiffanieHETAL Paredes Unavailable PROBLEMS Type Condition ICD9-CM Code HEA70-UA Code Onset Dates Condition Status SNOMED Code Problem Hyperinsulinemia E16.1 Active 60824481 Problem Tension headache G44.209 Active 734581684 Problem DM neuro manif type II E11.49 Active 85431838 Problem Iron deficiency anemia due to chronic blood loss D50.0 Active 925864268 Problem Menorrhagia with irregular cycle N92.1 Active 005730399 Problem Essential hypertension I10 Active 35188657 Problem Intractable migraine without aura and without status migrainosus G43.019 Active 374445379 Problem Sleep apnea in adult G47.30 Active 16860360 Problem Irritable bowel syndrome with diarrhea K58.0 Active 651988949 ALLERGIES Substance Reaction Event Type Date Status Codeine hives Drug Allergy Feb, Active liquid codeine/ pt. can tolerate drugs like hydroco Unknown Non Drug Allergy Feb, Active Red Onion hives Non Drug Allergy Feb, Active Chlorthalidone 25 Mg Tablet hives Non Drug Allergy Feb, Active Hydrochlorothiazide 25 Mg Tablet hives Non Drug Allergy Feb, Active ENCOUNTERS Encounter Location Date Diagnosis [facility] [address] [facility] [id number] [address] Jan, Pneumonia of left lung due to infectious organism, unspecified part of lung J18.9 [facility] [address] [id number] [address] Dec, Pneumonia due to Mycoplasma pneumoniae, unspecified laterality, unspecified part of lung J15.7 and BMI 50.0-59.9, adult Z68.43 [facility] [id number] [place] [address] 22468- 9504 Dec, [place] [id number] [place] [address] 23943- 1297 Dec, Bronchitis J40 and BMI 50.0-59.9, adult Z68.43 [place] [id number] [place] [address] 20174- 1665 November, Bronchitis J40 ; LLQ pain R10.32 and BMI 50.0-59.9, adult Z68.43 [place] [id number] [place] [address] 05118- 5500 November, Iron deficiency anemia due to chronic blood loss D50.0 [place] [id number] [place] [address] 51047- 3176 November, [place] [id number] [place] [address] 12581- 8400 November, Iron deficiency anemia due to chronic blood loss D50.0 ; DM neuro manif type II E11.49 ; Menorrhagia with irregular cycle N92.1 and BMI 50.0 -59.9, adult Z68.43 [facility] [place] [id number] [place] [address] 89229 -9491 Oct, Sore throat J02.9 and Acute nasopharyngitis J00 [facility] [place] [id number] [place] [address] 28925 -1316 Oct, Left leg pain M79.605 and BMI 50.0-59.9, adult Z68.43 [facility] [id number] [place] [address] 13523 -5933 Sep, Upper respiratory tract infection, unspecified type J06.9 and BMI 50.0-59.9, adult Z68.43 [place] [id number] [place] [address] 34219- 8905 08 Sep, 2017 Menorrhagia with irregular cycle N92.1 ; Sleep apnea in adult G47.30 and BMI 50.0-59.9, adult Z68.43 [facility] [id number] [place] [address] 42618- 9596 Sep, [facility] [address] 6[address]97- 0340 Aug, [facility] [address] 95178- 3687 Aug, [facility] [address] 42275- 3102 Aug, [place] [address] 7[address]48- 8190 Aug, LLQ pain R10.32 ; Irritable bowel syndrome with diarrhea K58.0 ; Change in bowel habits R19.4 ; Essential hypertension I10 and BMI 50.0- 59.9, adult Z68.43 [place] [address] 29124- 4465 Aug, [place] [id number] [place] [address] 51007- 3615 Aug, [facility] [address] 7[address] -8521 Aug, Essential hypertension I10 and BMI 50.0-59.9, adult Z68.43 [place] [address] 95365- 3354 Aug, [place] [id number] [place] [address] 16352- 0042 Aug, [facility] [address] 02654 -[address]37 02 Aug, 2017 Allergic disorder, initial encounter T78.40XA and BMI 50.0- 59.9, adult Z68.43 [facility] [id number] [place] [address] 52509 -7031 31 Dustin, 2018 Other atopic dermatitis L20.89 and BMI 50.0-59.9, adult Z68.43 [facility] [id number] [place] [address] 33914- 2834 Jul, Intractable migraine without aura and without status migrainosus G43.019 and BMI 50.0-59.9, adult Z68.43 [facility] [address] 34258- 4593 Jun, DM neuro manif type II E11.49 ; Tension headache G44.209 ; Breast cancer screening Z12.31 and BMI 50.0-59.9, adult Z68.43 [place] [address] 15278- 7266 Jun, Tension headache G44.209 ; Breast cancer screening Z12.31 ; BMI 50.0-59.9, adult Z68.43 and DM neuro manif type II E11.49 [facility] [address] 6[address] -8818 Apr, Dysuria R30.0 and Acute cystitis with hematuria N30.01 [place] [address] 57925- 4160 Apr, Hyperinsulinemia E16.1 [place] [address] 61283- 2437 Mar, Acute non-recurrent maxillary sinusitis J01.00 [place] [address] 85212- 2160 Feb, Cellulitis of unspecified part of limb L03.119 ; Spider bite wound, accidental or unintentional, subsequent encounter T63.301D and BMI 50.0-59.9, adult Z68.43 [facility] [address] 11680- 7352 Jan, [place] [address] 48416- 9489 Jan, Urinary tract infection, site unspecified N39.0 [place] [id number] [place] [address] 94323- 6647 Jan, Acute gastritis without hemorrhage, unspecified gastritis type K29.00 [place] [address] 76700- 6394 30 Dec, 2016 Pain in right leg M79.604 [place] [address] 99193- 1346 Dec, Hyperinsulinemia E16.1 and Pain in right leg M79.604 [place] [address] 30532- 1141 Dec, Angioedema, initial encounter T78.3XXA [place] [address] 21770- 4156 15 Dec, 2016 Dental examination Z01.20 [place] [address] 12158- 3352 Dec, [place] [address] 61005- 9436 Dec, Burning with urination R30.0 and Acute cystitis with hematuria N30.01 [place] [address] 53733- 7721 Oct, [place] [address] 61514- 9838 Sep, [place] [address] 42752- 1096 Aug, Hyperinsulinemia E16.1 [place] [address] 89019- 3044 Aug, [place] [address] 47312- 2104 Jul, [place] [address] 40243- 2929 Jul, Chondromalacia, left knee M94.262 and Acute lateral meniscus tear of left knee, initial encounter S83.282A [facility] [id number] 5756 Jul, [facility] [address] [id number] 2546 Jun, Hyperinsulinemia E16.1 [facility] [address] 42748 2546 Jun, Dysuria R30.0 ; Back pain M54.9 ; Acute pain of left knee M25.562 and Hyperinsulinemia E16.1 [facility] [address] 89737- 3096 Jun, Acute non-recurrent maxillary sinusitis J01.00 [facility] [address] 21670- 5146 Jun, Dysuria R30.0 [facility] [address] 67483 2546 Jun, Dysuria R30.0 [facility] [address] 98032- 0916 Jun, [facility] [address] 65855- 9584 May, Dysuria R30.0 and Acute cystitis with hematuria N30.01 [facility] [id number] [place] [address] 10195 2546 May, Hyperinsulinemia E16.1 [facility] [id number] [place] [address] 08536- 7677 May, [facility] [address] 12604 2546 May, Sore throat J02.9 [facility] [id number] [place] [address] 63376- 2546 May, [facility] [address] [place] [address]- 6360 08 Mar, 2016 Hyperinsulinemia E16.1 [facility] [address] 95071- 3324 Jan, Hyperinsulinemia E16.1 [facility] [address] 72301- 6472 Dec, DM neuro manif type II E11.49 [facility] [address] 67169- 2376 November, Hyperinsulinemia E16.1 and Hypertension I10 [facility] [address] 03049- 4271 Oct, [facility] [address] 27480- 0998 Oct, Hyperinsulinemia E16.1 [facility] [address] 89733- 6058 Oct, Pain, unspecified R52 [facility] [address] 51192- 9115 14 Oct, 2015 Pain in right foot M79.671 and Hyperinsulinemia E16.1 [facility] [address] 82296- 9021 Oct, Hyperinsulinemia E16.1 [facility] [address] 56777- 3625 Oct, Hyperinsulinemia E16.1 [facility] [address] 41672- 3197 17 Aug, 2015 Hypertension I10 and Viral illness B34.9 [facility] [address] 31768- 8780 May, Back pain M54.9 [facility] [address] 01512- 0399 14 Oct, 2014 [facility] [address] 75878- 1045 Oct, [facility] [place] [facility] [address] [id number] [place] [address]- 8376 Sep, [facility] [place] [facility] [address] [id number] [place] [address]- 0922 Sep, [facility] [place] [facility] [address] [id number] [place] [address]- 7371 Sep, [facility] [place] [facility] [address] [id number] [place] [address]- 8995 Sep, [facility] [place] [facility] [address] [id number] [place] [address]- 8100 Sep, [facility] [place] [facility] [address] [id number] [place] [address]- 8354 Sep, [facility] [place] [facility] [address] [id number] [place] [address]- 9557 Sep, [facility] [place] [facility] [address] [id number] [place] [address]- 9267 Sep, [facility] [place] [facility] [address] [id number] [place] [address]- 2076 Sep, [facility] [place] [facility] [address] [id number] [place] [address]- 6901 Sep, [facility] [place] [facility] [address] [id number] [place] [address]- 0127 Sep, [facility] [place] [facility] [address] [id number] [place] [address]- 2687 Sep, [facility] [place] [facility] [address] [id number] [place] [address]- 9356 Mar, [facility] [place] [facility] [address] [id number] [place] [address]- 1925 Mar, [facility] [place] [facility] [address] [id number] [place] [address]- 4172 Feb, [facility] [place] [facility] [address] [id number] [place] [address]- 2261 Feb, [facility] [place] [facility] [address] [id number] [place] [address]- 1909 Feb, [facility] [place] [facility] [address] [id number] [place] [address]- 6613 Feb, [facility] [place] [facility] [address] [id number] [place] [address]- 6593 Dec, [facility] [place] [facility] [address] [id number] [place] [address]- 7214 Dec, [facility] [place] [facility] [address] [id number] [place] [address]- 4086 Dec, [facility] [place] [facility] [address] [id number] [place] [address]- 6738 Dec, [facility] [place] [facility] [address] [id number] [place] [address]- 2040 Dec, [facility] [place] [facility] [address] [id number] [place] [address]- 7873 Dec, [facility] [place] [facility] [address] [id number] [place] [address]- 3165 Dec, [facility] [place] [facility] [address] [id number] [place] [address]- 7760 Sep, [facility] [place] [facility] [address] [id number] [place] [address]- 4560 Sep, [facility] [place] [facility] [address] [id number] [place] [address]- 3663 Sep, [facility] [place] [facility] [address] [id number] [place] [address]- 1645 Sep, [facility] [place] [facility] [address] [id number] [place] [address]- 6368 Sep, [facility] [place] [facility] [address] [id number] [place] [address]- 6506 Sep, [facility] [place] [facility] [address] [id number] [place] [address]- 0179 Sep, [facility] [place] [facility] [address] [id number] [place] [address]- 4535 Sep, [facility] [place] [facility] [address] [id number] [place] [address]- 7758 Jul, [facility] [place] [facility] [address] [id number] [place] [address]- 6722 Jul, [facility] [place] [facility] [address] [id number] [place] [address]- 0212 Jun, [facility] [place] [facility] [address] [id number] [place] [address]- 4587 Jun, [facility] [place] [facility] [address] [id number] [place] [address]- 8284 May, [facility] [place] [facility] [address] [id number] [place] [address]- 8241 May, [facility] [place] [facility] [address] [id number] [place] [address]- 5916 May, [facility] [place] [facility] [address] [id number] [place] [address]- 3791 May, [facility] [place] [facility] [address] [id number] [place] [address]- 1454 May, [facility] [place] [facility] [address] [id number] [place] [address]- 6937 May, [facility] [place] [facility] [address] [id number] [place] [address]- 4625 May, [facility] [place] [facility] [address] [id number] [place] [address]- 4055 Apr, [facility] [place] [facility] [address] [id number] [place] [address]- 0841 Apr, [facility] [place] [facility] [address] [id number] [place] [address]- 7845 Apr, [facility] [place] [facility] [address] [id number] [place] [address]- 7052 Apr, [facility] [place] [facility] [address] [id number] [place] [address]- 1906 Apr, [facility] [place] [facility] [address] [id number] [place] [address] 2546 Apr, [facility] [place] [facility] [address] [id number] [place] [address]- 2545 Mar, [facility] [place] [facility] [address] [id number] [place] [address]- 7611 Feb, [facility] [place] [facility] [address] [id number] [place] [address]- 4192 Jan, [facility] [place] [facility] [address] [id number] [place] [address]- 0673 Jan, [facility] [place] [facility] [address] [id number] [place] [address]- 7539 Jan, [facility] [place] [facility] [address] [id number] [place] [address]- 9801 Dec, [facility] [place] [facility] [address] [id number] [place] [address]- 3801 November, [facility] [place] [facility] [address] [id number], [place] [address]- 0126 November, [facility] [place] [facility] [address] [id number], [place] [address]- 2546 November, [facility] [place] [facility] [address] [id number] [place] [address]- 2546 November, [facility] [place] [facility] [address] [id number] [place] [address] 2546 Oct, [facility] [place] [facility] [address] [id number] [place] [address]- 2546 Aug, [facility] [place] [facility] [address] [id number] [place] [address]- 5795 Aug, [facility] [place] [facility] [address] [id number] [place] [address]- 7156 Aug, 2012 [facility] [place] [facility] [address] [id number] [place] [address]- 2546 Aug, [facility] [place] [facility] [address] [id number] [place] [address]- 5616 Aug, [facility] [place] [facility] [address] [id number] [place] [address]- 2541 Aug, [facility] [place] [facility] [address] [id number] [place] [address]- 0669 Jul, [facility] [place] [facility] [address] [id number] [place] [address]- 1555 May, [facility] [place] [facility] [address] [id number] [place] [address]- 9790 May, [facility] [place] [facility] [address] [id number] [place] [address]- 2656 May, [facility] [place] [facility] [address] [facility] [id number] [place] [address]- 4156 May, [facility] [place] [facility] [address] [facility] [id number] [place] [address]- 0394 May, [facility] [place] [facility] [address] [facility] [id number] [place] [address]- 8847 May, [facility] [place] [facility] [address] [id number] [place] [address]- 7477 May, [facility] [place] [facility] [address] [id number] [place] [address]- 5584 Apr, [facility] [place] [facility] [address] [id number] [place] [address]- 2546 Apr, [facility] [place] [facility] [address] [id number] [place] [address]- 3102 Apr, [facility] [place] [facility] [address] [id number] [place] [address]- 8214 Apr, [facility] [place] [facility] [address] [id number] [place] [address]- 2666 Apr, [facility] [place] [facility] [address] [id number] [place] 8852 Sep, [facility] [place] [facility] [address] [id number] [place] [address]- 4323 Aug, [facility] [place] [facility] [address] [id number] [place] [address]- 0836 Aug, [facility] [place] [facility] [address] [id number] [place] [address]- 4186 Aug, [facility] [place] [facility] [address] [id number] [place] [address]- 6466 Aug, [facility] [place] [facility] [address] [id number] [place] [address]- 5303 Aug, [facility] [place] [facility] [address] [id number] [place] [address]- 1409 Jul, [facility] [place] [facility] [address] [id number] [place] [address]- 5097 Jul, [facility] [place] [facility] [address] [id number] [place] [address]- 8698 Jul, [facility] [place] [facility] [address] [id number] [place] [address]- 0434 Jun, [facility] [place] [facility] [address] [id number] [place] [address] 2546 Jun, [facility] [place] [facility] [address] [id number] [place] 5725 Jun, [facility] [place] [facility] [address] [id number] [place] 9928 May, [facility] [place] [facility] [address] [facility] [id number] [place] [address]- 0302 Apr, [facility] [address] [facility] [id number], [place] [address]- 7008 Apr, [facility] [address] [facility] [id number] [place] [address] Apr, [facility] [address] [facility] [id number], [place] [address] Apr, IMMUNIZATIONS No Known Immunizations SOCIAL HISTORY Never Assessed REASON FOR VISIT Spider bite to ankle. Went to the ER on Tuesday and was started on 2 abx. Started taking them Tuesday and since then the are has doubled in size; increase in swelling, warm to touch- [place] MA PLAN OF CARE Activity Details Follow Up Tuesday Reason: VITAL SIGNS Height 69 in 2017-03-07 Weight 346.7 lbs 2017-03-07 Temperature 98.1 degrees Fahrenheit 2017-03-07 Heart Rate 78 bpm 2017-03-07 Respiratory Rate 20 2017-03-07 BMI 51.19 kg/m2 2017-03-07 Blood pressure systolic 130 mmHg 2017-03-07 Blood pressure diastolic 94 mmHg 2017-03-07 MEDICATIONS Medication Instructions Dosage Frequency Start Date End Date Duration Status Imitrex 50 MG Orally Twice a day 1 tablet as needed 12h 30 Active Propranolol HCl 10 MG TAKE ONE TABLET BY MOUTH TWICE DAILY 30 Active Metformin HCl 500 MG Orally 2 times a day 1 tablet with meals 12h 90 Active Mobic 7.5 MG Orally Once a day as needed for lega=pain 1-2tablet Dec, 90 days Active Trulicity 1.5 MG/0.5ML Subcutaneous once weekly inject 0.5 ml Oct, 90 days Active Diltiazem HCl ER Beads 240 MG TAKE ONE CAPSULE BY MOUTH DAILY 30 Active HydrOXYzine HCl 25 MG Orally every 6 hrs 1 tablet as needed 6h Dec, 0 days Active Ultram 50 mg Orally every 6 hrs 1 tablet as needed 6h Feb,Feb 10 days Active Spironolactone 25 MG TAKE ONE TABLET BY MOUTH ONCE DAILY 30 Active Dapsone Active Bactrim Active RESULTS No Results PROCEDURES No Known procedures INSTRUCTIONS MEDICATIONS ADMINISTERED No Known Medications MEDICAL (GENERAL) HISTORY Type Description Date Medical History hypertension Medical History Sleep apnea in adult Surgical History x 3 Surgical History cholecystectomy Surgical History Chemical Stress Test, EKG, Echo 05/2016 Hospitalization History surgeries Hospitalization History UTI VC 05/2016
--- OUTSIDE RECORDS SUMMARY | 2018-02-08 12:44 | XMS REPORT ---
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 Name Role Phone CARISA KHAN Unavailable PROBLEMS Type Condition ICD9-CM Code [id number] Code Onset Dates Condition Status SNOMED Code Problem Hyperinsulinemia E16.1 Active 56915660 Problem Tension headache G44.209 Active 420544093 Problem DM neuro manif type II E11.49 Active 07709776 Problem Iron deficiency anemia due to chronic blood loss D50.0 Active 335156163 Problem Menorrhagia with irregular cycle N92.1 Active 225734202 Problem Essential hypertension I10 Active 33392294 Problem Intractable migraine without aura and without status migrainosus G43.019 Active 066651933 Problem Sleep apnea in adult G47.30 Active 25665821 Problem Irritable bowel syndrome with diarrhea K58.0 Active 899360441 ALLERGIES No Information ENCOUNTERS Encounter Location Date Diagnosis [place] [address] [id number] [place] [address] 58354- 9122 Jan, Pneumonia of left lung due to infectious organism, unspecified part of lung J18.9 [place] [address] [place] [address] 64230- 5639 Dec, Pneumonia due to Mycoplasma pneumoniae, unspecified laterality, unspecified part of lung J15.7 and BMI 50.0-59.9, adult Z68.43 [place] [address] [address] [place] [id number] [place] [address] 14260- 4944 Dec, [place] [address] 99053- 7694 Dec, Bronchitis J40 and BMI 50.0-59.9, adult Z68.43 [place] [address] 39199- 1376 November, Bronchitis J40 ; LLQ pain R10.32 and BMI 50.0-59.9, adult Z68.43 [place] [address] [address] [place] [id number] [place] [address] 90614- 5637 November, Iron deficiency anemia due to chronic blood loss D50.0 [place] [address] [place] [id number] [place] [address] 40476- 7791 November, [place] [address] 96493- 8708 November, Iron deficiency anemia due to chronic blood loss D50.0 ; DM neuro manif type II E11.49 ; Menorrhagia with irregular cycle N92.1 and BMI 50.0 -59.9, adult Z68.43 [facility] WALK IN [address] [address] Oct, Sore throat J02.9 and Acute nasopharyngitis J00 [facility] WALK IN [address] [address] -9195 Oct, Left leg pain M79.605 and BMI 50.0-59.9, adult Z68.43 [facility] WALK [place] [id number] [place] [address] 43471 -6387 Sep, Upper respiratory tract infection, unspecified type J06.9 and BMI 50.0-59.9, adult Z68.43 [place] [address] [place] [id number] [place] [address] 98938- 2636 Sep, Menorrhagia with irregular cycle N92.1 ; Sleep apnea in adult G47.30 and BMI 50.0-59.9, adult Z68.43 [place] [address] [place] [id number] [place] [address] 03842- 4348 Sep, [place] [address] [place] [id number] [place] [address] 44303- 9804 Aug, [place] [address] [place] [address]- 7560 Aug, [facility] [address] 60052- 3584 Aug, [facility] [address] 45698- 9480 Aug, LLQ pain R10.32 ; Irritable bowel syndrome with diarrhea K58.0 ; Change in bowel habits R19.4 ; Essential hypertension I10 and BMI 50.0- 59.9, adult Z68.43 [place] [address] 39949- 9612 Aug, [place] [address] 19290- 7812 Aug, [facility] WALK [place] [address] 57231 -1768 Aug, Essential hypertension I10 and BMI 50.0-59.9, adult Z68.43 [place] [address] 58800- 1265 Aug, [place] [address] 22936- 4064 08 Aug, 2017 [facility] [place] [address] [address] [place] [id number] [place] [address] 18767 -3604 02 Aug, 2017 Allergic disorder, initial encounter T78.40XA and BMI 50.0- 59.9, adult Z68.43 [facility] [place] [address] [address] [place] [id number] [place] [address] 33894 -0438 Jul, Other atopic dermatitis L20.89 and BMI 50.0-59.9, adult Z68.43 [place] [address] 78772- 8325 Jul, Intractable migraine without aura and without status migrainosus G43.019 and BMI 50.0-59.9, adult Z68.43 [place] [address] [place] [id number] [place] [address] 60709- 7495 Jun, 2017 DM neuro manif type II E11.49 ; Tension headache G44.209 ; Breast cancer screening Z12.31 and BMI 50.0-59.9, adult Z68.43 [facility] [address] [place] [id number] [place] [address] 82244- 5363 Jun, Tension headache G44.209 ; Breast cancer screening Z12.31 ; BMI 50.0-59.9, adult Z68.43 and DM neuro manif type II E11.49 [facility] WALK IN [facility] [address] [place] [id number] [place] [address] 94906 -2426 Apr, Dysuria R30.0 and Acute cystitis with hematuria N30.01 [place] [address] [place] [id number] [place] [address] 84156- 5951 Apr, Hyperinsulinemia E16.1 [place] [address] 24850- 7046 Mar, Acute non-recurrent maxillary sinusitis J01.00 [place] [address] [place] [id number] [place] [address] 40017- 4471 Feb, Cellulitis of unspecified part of limb L03.119 ; Spider bite wound, accidental or unintentional, subsequent encounter T63.301D and BMI 50.0-59.9, adult Z68.43 [facility] [address] [place] [id number] [place] [address] 62739- 1562 Jan, [place] [address] [place] [id number] [place] [address] 05765- 8269 Jan, Urinary tract infection, site unspecified N39.0 [place] [address] 52559- 6237 Jan, Acute gastritis without hemorrhage, unspecified gastritis type K29.00 [facility] [address] [place] [id number] [place] [address] 53601- 7332 Dec, Pain in right leg M79.604 [place] [address] [place] [id number] [place] [address] 79671 2549 28 Dec, 2016 Hyperinsulinemia E16.1 and Pain in right leg M79.604 [place] [address] 34002 2546 27 Dec, 2016 Angioedema, initial encounter T78.3XXA [place] [address] 34040- 8986 15 Dec, 2016 Dental examination Z01.20 [place] [address] 73586- 3794 13 Dec, 2016 [place] [address] 74604- 4642 Dec, Burning with urination R30.0 and Acute cystitis with hematuria N30.01 [place] [address] 36077- 8271 Oct, [facility] [address] 29599- 2548 Sep, [place] [address] 26048- 3855 Aug, Hyperinsulinemia E16.1 [facility] [address] [place] [id number] [place] [address] 94024- 2545 Aug, [facility] [address] [place] [id number] [place] [address] 25071 2547 Jul, [facility] [address] [place] [id number] [place] [address] 38445- 2549 Jul, Chondromalacia, left knee M94.262 and Acute lateral meniscus tear of left knee, initial encounter S83.282A [place] [address] 77635- 6186 Jul, [facility] [address] 38073- 3796 Jun, Hyperinsulinemia E16.1 [facility] [address] [place] [address] 24852- 1114 Jun, Dysuria R30.0 ; Back pain M54.9 ; Acute pain of left knee M25.562 and Hyperinsulinemia E16.1 [facility] [address] [place] [id number] [place] [address] 91984 2546 14 Jun, 2016 Acute non-recurrent maxillary sinusitis J01.00 [facility] [address] [place] [id number] [place] [address] 37721- 0826 Jun, Dysuria R30.0 [facility] [address] 20645- 7516 Jun, Dysuria R30.0 [facility] [address] [place] [id number] [place] [address] 44978- 5786 Jun, [facility] [address] 11457- 3680 May, Dysuria R30.0 and Acute cystitis with hematuria N30.01 [facility] [address] [place] [id number] [place] [address] 62796- 9686 May, Hyperinsulinemia E16.1 [facility] [address] [place] [id number] [place] [address] 97646- 6876 May, [facility] [address] [place] [id number] [place] [address] 60511- 2461 May, Sore throat J02.9 [facility] [address] [place] [id number] [place] [address] 58257- 2544 May, [facility] [address] [place] [id number] [place] [address] 83536- 8645 08 Mar, 2016 Hyperinsulinemia E16.1 [facility] [address] [place] [id number] [place] [address] 52187- 1786 Jan, Hyperinsulinemia E16.1 [facility] [address] [place] [id number] [place] [address] 42263- 5294 Dec, DM neuro manif type II E11.49 [facility] [address] [place] [id number] [place] [address] 02824- 0744 November, Hyperinsulinemia E16.1 and Hypertension I10 [facility] [address] [place] [id number] [place] [address] 69117- 7906 Oct, [facility] [address] 38482- 0288 Oct, Hyperinsulinemia E16.1 [facility] [address] 58091- 5315 Oct, Pain, unspecified R52 [facility] [address] 51784- 7521 Oct, Pain in right foot M79.671 and Hyperinsulinemia E16.1 [facility] [address] [place] [id number] [place] [address] 94903- 9372 Oct, Hyperinsulinemia E16.1 [facility] [address] 44645- 6056 Oct, Hyperinsulinemia E16.1 [facility] [address] [place] [id number] [place] [address] 22818- 9891 17 Aug, 2015 Hypertension I10 and Viral illness B34.9 [facility] [address] [place] [id number] [place] [address] 64909- 4166 May, Back pain M54.9 [facility] [address] [place] [id number] [place] [address] 63517- 0179 Oct, [facility] [address] [place] [id number] [place] [address] 92574- 9670 Oct, [facility] [address] [place] [id number] [place] [address] 34875- 7244 Sep, [facility] [address] [place] [id number] [place] [address] 55838- 8560 Sep, [facility] [address] 99040- 4863 Sep, 2014 [facility] [place] [facility] [address] [id number] [place] [address]- 4849 Sep, 2014 [facility] [place] [facility] [address] [id number] [place] [address]- 4365 Sep, 2014 [facility] [place] [facility] [address] [id number] [place] [address]- 0832 Sep, 2014 [facility] [place] [facility] [address] [id number] [place] [address]- 9489 Sep, 2014 [facility] [place] [facility] [address] [id number] [place] [address]- 1196 Sep, 2014 [facility] [place] [facility] [address] [id number] [place] [address]- 6550 Sep, 2014 [facility] [place] [facility] [address] [id number] [place] [address]- 1480 Sep, 2014 [facility] [place] [facility] [address] [id number] [place] [address]- 4599 Sep, 2014 [facility] [place] [facility] [address] [id number] [place] [address]- 9884 Sep, 2014 [facility] [place] [facility] [address] [id number] [place] [address]- 4692 Mar, [facility] [place] [facility] [address] [id number] [place] [address]- 7893 Mar, [facility] [place] [facility] [address] [id number] [place] [address]- 4702 Feb, [facility] [place] [facility] [address] [id number] [place] [address]- 7458 Feb, [facility] [place] [facility] [address] [id number] [place] [address]- 5902 Feb, [facility] [place] [facility] [address] [id number] [place] [address]- 9214 Feb, [facility] [place] [facility] [address] [id number] [place] [address]- 8399 Dec, [facility] [place] [facility] [address] [id number] [place] [address]- 5927 Dec, [facility] [place] [facility] [address] [id number] [place] [address]- 2594 Dec, [facility] [place] [facility] [address] [id number] [place] [address]- 4798 Dec, [facility] [place] [facility] [address] [id number] [place] [address]- 5850 Dec, [facility] [place] [facility] [address] [id number] [place] [address]- 3448 Dec, [facility] [place] [facility] [address] [id number] [place] [address]- 7163 Dec, [facility] [place] [facility] [address] [id number] [place] [address]- 7282 Sep, [facility] [place] [facility] [address] [id number] [place] [address]- 8860 Sep, [facility] [place] [facility] [address] [id number] [place] [address]- 0481 Sep, [facility] [place] [facility] [address] [id number] [place] [address]- 0957 Sep, [facility] [place] [facility] [address] [id number] [place] [address]- 8613 Sep, [facility] [place] [facility] [address] [id number] [place] [address]- 6356 Sep, [facility] [place] [facility] [address] [id number] [place] [address]- 8762 Sep, [facility] [place] [facility] [address] [id number] [place] 0816 Sep, [facility] [place] [facility] [address] [id number] [place] [address]- 5148 Jul, [facility] [place] [facility] [address] [id number] [place] [address]- 1538 Jul, [facility] [place] [facility] [address] [id number] [place] [address]- 1992 Jun, [facility] [place] [facility] [address] [facility] [id number] [place] [address]- 4331 Jun, [facility] [place] [facility] [address] [id number] [place] [address]- 0867 May, [facility] [place] [facility] [address] [id number] [place] [address]- 2995 May, [facility] [place] [facility] [address] [id number] [place] [address]- 7397 May, [facility] [place] [facility] [address] [id number] [place] [address]- 8534 May, [facility] [place] [facility] [address] [id number] [place] [address]- 0399 May, [facility] [place] [facility] [address] [id number] [place] [address]- 2281 May, [facility] [place] [facility] [address] [facility] [id number] [place] [address]- 4654 May, [facility] [place] [facility] [address] [id number] [place] [address]- 7354 Apr, [facility] [place] [facility] [address] [id number] [place] [address]- 7702 Apr, [facility] [place] [facility] [address] [id number] [place] [address]- 9982 Apr, [facility] [place] [facility] [address] [id number] [place] [address]- 6715 Apr, [facility] [place] [facility] [address] [id number] [place] [address]- 4304 30 Apr, 2013 [facility] [place] [facility] [address] [id number] [place] [address]- 4290 Apr, [facility] [address] [id number] [place] [address]- 5849 Mar, [facility] [address] [id number] [place] [address]- 5196 Feb, [facility] [address] [id number] [place] [address]- 1947 Jan, [facility] [place] [facility] [address] [id number] [place] [address]- 0254 Jan, [facility] [address] [id number] [place] [address]- 7640 Jan, [facility] [address] [id number] [place] [address]- 5097 Dec, [facility] [address] [id number] [place] [address]- 6604 November, [facility] [address] [id number] [place] [address]- 2096 November, [facility] [address] [id number] [place] [address]- 2809 November, [facility] [address] [facility] [id number] [place] [address]- 5443 November, [facility] [address] [id number] [place] [address]- 3345 Oct, [facility] [address] [id number] [place] [address]- 4043 Aug, [facility] [place] [facility] [address] [id number] [place] [address]- 9267 Aug, [facility] [place] [facility] [address] [id number] [place] [address]- 2546 Aug, [facility] [place] [facility] [address] [id number] [place] [address]- 4831 Aug, [facility] [place] [facility] [address] [id number] [place] [address]- 8488 Aug, [facility] [place] [facility] [address] [id number] [place] [address]- 5910 Aug, [facility] [place] [facility] [address] [facility] [id number] [place] [address]- 3443 Jul, [facility] [place] [facility] [address] [id number] [place] [address]- 6643 May, [facility] [place] [facility] [address] [id number] [place] [address]- 3742 May, [facility] [place] [facility] [address] [id number] [place] [address]- 3676 May, [facility] [place] [facility] [address] [facility] [id number] [place] [address]- 4067 May, [facility] [place] [facility] [address] [facility] [id number] [place] [address]- 3503 May, [facility] [place] [facility] [address] [facility] [id number] [place] [address]- 2956 May, [facility] [place] [facility] [address] [facility] [id number] [place] [address]- 0570 May, [facility] [place] [facility] [address] [id number] [place] [address]- 5928 Apr, [facility] [place] [facility] [address] [id number] [place] [address]- 3153 Apr, [facility] [place] [facility] [address] [facility] [id number] [place] [address]- 0624 Apr, [facility] [place] [facility] [address] [id number] [place] [address]- 5758 Apr, [facility] [place] [facility] [address] [facility] [id number] [place] [address]- 3441 Apr, [facility] [place] [facility] [address] [id number] [place] [address]- 3219 Sep, [facility] [place] [facility] [address] [id number] [place] [address]- 6886 24 Aug, 2011 [facility] [place] [facility] [address] [id number] [place] [address] 2546 16 Aug, 2011 [facility] [place] [facility] [address] [id number] [place] [address] 2546 Aug, [facility] [place] [facility] [address] [id number] [place] [address] 2546 Aug, [facility] [place] [facility] [address] [id number] [place] [address], [place] [address]- 4008 Aug, [facility] [place] [facility] [address] [facility] [id number] [place] [address]- 4867 Jul, [facility] [place] [facility] [address] [facility] [id number] [place] [address]- 6757 Jul, [facility] [place] [facility] [address] [facility] [id number] [place] [address]- 6193 Jul, [facility] [place] [facility] [id number] [place] [address]- 6830 Jun, [facility] [place] [facility] [address] [facility] [id number] [place] [address]- 0732 Jun, [facility] [place] [facility] [address] [facility] [id number] [place] [address] 2546 Jun, [facility] [place] [facility] [address] [facility] [id number] [place] [address] 2544 May, [facility] [place] [facility] [address] [facility] [id number] [place] [address] 15 Apr, 2011 [facility] [place] [facility] [address] [facility] [id number] [place] [address] 12 Apr, 2011 [facility] [place] [facility] [address] [facility] [id number] [place] [address] Apr, [facility] [address] [facility] [id number] [place] [address] Apr, IMMUNIZATIONS No Known Immunizations SOCIAL HISTORY Never Assessed REASON FOR VISIT PA CT abd&pelvis with & w/o PLAN OF CARE VITAL SIGNS MEDICATIONS Unknown [...]
--- OUTSIDE RECORDS SUMMARY | 2018-02-08 12:44 | XMS REPORT ---
Author Author TRELL BEAULIEU [facility] Address [address] [place] [address] Care Team Providers Care Canned Food Reconditioning Inspector Name Role Phone TRELL BEAULIEU Unavailable PROBLEMS Type Condition ICD9-CM Code XIK15-KZ Code Onset Dates Condition Status SNOMED Code Problem Hyperinsulinemia E16.1 Active 33641199 Problem Tension headache G44.209 Active 214202706 Problem DM neuro manif type II E11.49 Active 78514740 Problem Iron deficiency anemia due to chronic blood loss D50.0 Active 434383812 Problem Menorrhagia with irregular cycle N92.1 Active 616229593 Problem Essential hypertension I10 Active 08240144 Problem Intractable migraine without aura and without status migrainosus G43.019 Active 492811731 Problem Sleep apnea in adult G47.30 Active 48581058 Problem Irritable bowel syndrome with diarrhea K58.0 Active 984700488 ALLERGIES Substance Reaction Event Type Date Status Codeine hives Drug Allergy Jul, Active Chlorthalidone 25 Mg Tablet hives Non Drug Allergy Jul, Active liquid codeine/ pt. can tolerate drugs like hydroco Unknown Non Drug Allergy Jul, Active Red Onion hives Non Drug Allergy Jul, Active Hydrochlorothiazide 25 Mg Tablet hives Non Drug Allergy Jul, Active ENCOUNTERS Encounter Location Date Diagnosis [facility] [address] [id number] [address] Dec, [facility] [address] [id number] [address] Dec, Bronchitis J40 and BMI 50.0-59.9, adult Z68.43 [facility] [address] [id number] [address] November, Bronchitis J40 ; LLQ pain R10.32 and BMI 50.0-59.9, adult Z68.43 [facility] [id number] [place] [address] 43652- 5236 November, Iron deficiency anemia due to chronic blood loss D50.0 [facility] [id number] [place] [address] 72803- 0879 November, [facility] [id number] [place] [address] 61534- 2562 November, Iron deficiency anemia due to chronic blood loss D50.0 ; DM neuro manif type II E11.49 ; Menorrhagia with irregular cycle N92.1 and BMI 50.0 -59.9, adult Z68.43 [facility] [id number] [place] [address] 21293 -4578 Oct, Sore throat J02.9 and Acute nasopharyngitis J00 [facility] [place] [id number] [place] [address] 67892 -2256 Oct, Left leg pain M79.605 and BMI 50.0-59.9, adult Z68.43 [facility] [id number] [place] [address] 22341 -2249 Sep, Upper respiratory tract infection, unspecified type J06.9 and BMI 50.0-59.9, adult Z68.43 [place] [id number] [place] [address] 94272- 8502 Sep, Menorrhagia with irregular cycle N92.1 ; Sleep apnea in adult G47.30 and BMI 50.0-59.9, adult Z68.43 [place] [id number] [place] [address] 73057- 6341 Sep, [place] [id number] [place] [address] 39796- 8729 Aug, [facility] [id number] [place] [address] 41304- 4208 Aug, [facility] [id number] [place] [address] 96580- 6365 Aug, [place] [id number] [place] [address] 90568- 3319 Aug, LLQ pain R10.32 ; Irritable bowel syndrome with diarrhea K58.0 ; Change in bowel habits R19.4 ; Essential hypertension I10 and BMI 50.0- 59.9, adult Z68.43 [place] [address] [address]- [address] Aug, [place] [address] 90871- 4770 Aug, [facility] [address] [address] -3830 Aug, Essential hypertension I10 and BMI 50.0-59.9, adult Z68.[address] [address]- 0114 Aug, [place] [address] 43075- 6707 Aug, [facility] [address] 29441 -3355 02 Aug, 2017 Allergic disorder, initial encounter T78.40XA and BMI 50.0- 59.9, adult Z68.43 [facility] [place] [id number] [place] [address] 18485 -0333 Jul, Other atopic dermatitis L20.89 and BMI 50.0-59.9, adult Z68.43 [id number] [place] [address] 47152- 7749 Jul, Intractable migraine without aura and without status migrainosus G43.019 and BMI 50.0-59.9, adult Z68.43 [place] [id number] [place] [address] 76016- 0296 Jun, DM neuro manif type II E11.49 ; Tension headache G44.209 ; Breast cancer screening Z12.31 and BMI 50.0-59.9, adult Z68.43 [place] [address] 14156- 7940 Jun, 2017 Tension headache G44.209 ; Breast cancer screening Z12.31 ; BMI 50.0-59.9, adult Z68.43 and DM neuro manif type II E11.49 [facility] [address] 64411 -7734 Apr, Dysuria R30.0 and Acute cystitis with hematuria N30.01 [place] [address] 03938- 0794 Apr, Hyperinsulinemia E16.1 [place] [address] 50062- 7581 Mar, Acute non-recurrent maxillary sinusitis J01.00 [place] [address] 71403- 4162 Feb, Cellulitis of unspecified part of limb L03.119 ; Spider bite wound, accidental or unintentional, subsequent encounter T63.301D and BMI 50.0-59.9, adult Z68.43 [facility] [id number] [place] [address] 17177- 9175 Jan, [place] [id number] [place] [address] 13849- 1554 Jan, Urinary tract infection, site unspecified N39.0 [place] [address] 39586- 5033 Jan, Acute gastritis without hemorrhage, unspecified gastritis type K29.00 [place] [address] 22761- 4500 Dec, Pain in right leg M79.604 [place] [address] 12127- 2873 Dec, Hyperinsulinemia E16.1 and Pain in right leg M79.604 [facility] [id number] [place] [address] 11640- 3632 27 Dec, 2016 Angioedema, initial encounter T78.3XXA [facility] [id number] [place] [address] 65922- 7530 15 Dec, 2016 Dental examination Z01.20 [facility] [address] 99497- 8560 13 Dec, 2016 [facility] [address] 77085- 3003 Dec, Burning with urination R30.0 and Acute cystitis with hematuria N30.01 [facility] [id number] [place] [address] 79482- 1291 Oct, [facility] [id number] [place] [address] 25198- 9716 Sep, [facility] [id number] [place] [address] 63629- 6779 Aug, Hyperinsulinemia E16.1 [facility] [id number] [place] [address] 57299- 6601 Aug, [facility] [id number] [place] [address] 30559- 3528 Jul, [facility] [id number] [place] [address] 91816- 6086 Jul, Chondromalacia, left knee M94.262 and Acute lateral meniscus tear of left knee, initial encounter S83.282A [facility] [id number] [place] [address] 44148- 0326 Jul, [facility] [address] 00413- 8176 Jun, Hyperinsulinemia E16.1 [facility] [id number] [place] [address] 63064- 1350 Jun, Dysuria R30.0 ; Back pain M54.9 ; Acute pain of left knee M25.562 and Hyperinsulinemia E16.1 [facility] [address] 23121- 8159 14 Jun, 2016 Acute non-recurrent maxillary sinusitis J01.00 [facility] [address] 62655- 6485 Jun, Dysuria R30.0 [facility] [address] 47856- 9728 Jun, Dysuria R30.0 [facility] [address] 94146- 7970 Jun, [facility] [address] 63442- 6218 May, Dysuria R30.0 and Acute cystitis with hematuria N30.01 [facility] [address] 50787- 3592 May, Hyperinsulinemia E16.1 [facility] [address] 06356- 8560 May, [facility] [address] 63152- 5391 May, Sore throat J02.9 [facility] [address] 19049- 2884 May, [facility] [address] 32105- 4458 Mar, Hyperinsulinemia E16.1 [facility] [address] 90538- 7096 Jan, Hyperinsulinemia E16.1 [facility] [address] 29547- 6950 Dec, DM neuro manif type II E11.49 [facility] [address] 33827- 4113 November, Hyperinsulinemia E16.1 and Hypertension I10 [facility] [id number] [place] [address] 97614- 1769 Oct, [facility] [id number] [place] [address] 47162- 7486 Oct, Hyperinsulinemia E16.1 [facility] [id number] [place] [address] 81410- 9966 Oct, Pain, unspecified R52 [facility] [address] 06427- 254 14 Oct, 2015 Pain in right foot M79.671 and Hyperinsulinemia E16.1 [facility] [address] 26658- 4487 Oct, Hyperinsulinemia E16.1 [facility] [address] 89309- 2072 Oct, Hyperinsulinemia E16.1 [facility] [id number] [place] [address] 72357- 9986 17 Aug, 2015 Hypertension I10 and Viral illness B34.9 [facility] [id number] [place] [address] 13164- 0973 May, Back pain M54.9 [facility] [id number] [place] [address] 53888- 5145 14 Oct, 2014 [facility] [id number] [place] [address] 09757- 8325 Oct, [facility] [id number] [place] [address] 11473- 3739 Sep, [facility] [id number] [place] [address] 43927- 9453 30 Sep, 2014 [facility] [id number] [place] [address] 47178- 6970 17 Sep, 2014 [facility] [id number] [place] [address] 84757- 6305 Sep, 2014 [facility] [place] [facility] [address] [id number] [place] [address]- 9380 Sep, 2014 [facility] [place] [facility] [address] [id number] [place] [address]- 3905 Sep, 2014 [facility] [place] [facility] [address] [id number] [place] [address]- 6964 Sep, 2014 [facility] [place] [facility] [address] [id number] [place] [address]- 4619 Sep, 2014 [facility] [place] [facility] [address] [id number] [place] [address]- 4024 Sep, 2014 [facility] [place] [facility] [address] [id number] [place] [address]- 2144 Sep, 2014 [facility] [place] [facility] [address] [id number] [place] [address]- 2684 Sep, 2014 [facility] [place] [facility] [address] [id number] [place] [address]- 9515 Sep, 2014 [facility] [place] [facility] [address] [id number] [place] [address]- 7428 Mar, [facility] [place] [facility] [address] [id number] [place] [address]- 9470 Mar, [facility] [place] [facility] [address] [id number] [address]- 3374 Feb, [facility] [place] [facility] [address] [id number] [address]- 3565 Feb, [facility] [place] [facility] [address] [id number] [place] [address]- 5212 Feb, [facility] [place] [facility] [address] [id number] [place] [address]- 9029 Feb, [facility] [place] [facility] [address] [id number] [place] [address]- 7976 Dec, [facility] [place] [facility] [address] [id number] [place] [address]- 1687 Dec, [facility] [place] [facility] [address] [id number] [place] [address]- 2571 Dec, [facility] [place] [facility] [address] [id number] [place] [address]- 7433 Dec, [facility] [place] [facility] [address] [id number] [place] [address]- 2144 Dec, [facility] [place] [facility] [address] [id number] [place] [address]- 4918 Dec, [facility] [place] [facility] [address] [id number] [place] [address]- 6279 Dec, [facility] [place] [facility] [address] [id number] [place] [address]- 6950 Sep, [facility] [place] [facility] [address] [id number] [place] [address]- 8118 Sep, [facility] [place] [facility] [address] [id number] [place] [address]- 5533 Sep, [facility] [place] [facility] [address] [id number] [place] [address]- 2532 Sep, [facility] [place] [facility] [address] [id number] [place] [address]- 9016 Sep, [facility] [place] [facility] [address] [id number] [place] [address]- 8015 Sep, [facility] [place] [facility] [address] [id number] [place] [address]- 4966 Sep, [facility] [place] [facility] [address] [id number] [place] [address]- 1622 Sep, [facility] [place] [facility] [address] [id number] [place] [address]- 3968 Jul, [facility] [place] [facility] [address] [id number] [place] [address]- 7423 Jul, [facility] [place] [facility] [address] [id number] [place] [address]- 3709 Jun, [facility] [place] [facility] [address] [id number] [place] [address]- 0688 Jun, [facility] [place] [facility] [address] [id number] [place] [address]- 7661 May, [facility] [place] [facility] [address] [id number] [place] [address]- 3673 May, [facility] [place] [facility] [address] [id number] [place] [address]- 9701 May, [facility] [place] [facility] [address] [id number] [place] [address]- 8251 May, [facility] [place] [facility] [address] [id number] [place] [address]- 2782 May, [facility] [place] [facility] [address] [id number] [place] [address]- 6903 May, [facility] [place] [facility] [address] [id number] [place] [address]- 5629 May, [facility] [place] [facility] [address] [id number] [place] [address]- 9616 Apr, [facility] [place] [facility] [address] [id number] [place] [address]- 9787 Apr, [facility] [place] [facility] [address] [id number] [place] [address]- 7335 Apr, [facility] [place] [facility] [address] [id number] [place] [address]- 6125 Apr, [facility] [place] [facility] [address] [id number] [place] [address]- 8957 Apr, [facility] [place] [facility] [address] [id number] [place] [address]- 4149 Apr, [facility] [place] [facility] [address] [id number] [place] [address]- 4340 Mar, [facility] [address] [id number] [place] [address]- 0843 Feb, [facility] [address] [id number] [place] [address]- 8949 Jan, [facility] [address] [id number] [place] [address]- 1488 Jan, [facility] [address] [id number] [place] [address]- 8790 Jan, [facility] [address] [id number] [place] [address]- 2854 Dec, [facility] [address] [id number] [place] [address]- 1215 November, [facility] [address] [id number] [place] [address]- 6303 November, [facility] [address] [id number] [place] [address]- 6872 November, [facility] [address] [id number] [place] [address]- 9259 November, [facility] [address] [id number] [place] [address]- 5774 Oct, [facility] [address] [id number] [place] [address]- 7874 Aug, [facility] [place] [facility] [address] [id number] [place] [address]- 7709 Aug, [facility] [place] [facility] [address] [id number] [place] [address]- 2148 Aug, [facility] [place] [facility] [address] [id number] 8017 Aug, [facility] [place] [facility] [address] [id number] [place] [address]- 8116 Aug, [facility] [place] [facility] [address] [id number] [place] [address]- 9708 Aug, [facility] [place] [facility] [address] [id number] [place] [address]- 6242 Jul, [facility] [place] [facility] [address] [id number] [place] [address]- 6066 May, [facility] [place] [facility] [address] [id number] [place] [address]- 0802 May, [facility] [place] [facility] [address] [id number] [place] [address]- 8970 May, [facility] [place] [facility] [address] [id number] [place] [address]- 6076 May, [facility] [place] [facility] [address] [facility] [id number] [place] [address]- 4438 May, [facility] [place] [facility] [address] [id number] [place] [address]- 2723 May, [facility] [place] [facility] [address] [id number] [place] [address]- 0280 May, [facility] [place] [facility] [address] [id number] [place] [address]- 9670 Apr, [facility] [place] [facility] [address] [id number] [place] [address]- 2198 Apr, [facility] [place] [facility] [address] [id number] [place] [address]- 0519 Apr, [facility] [place] [facility] [address] [id number] [place] [address]- 8907 Apr, [facility] [place] [facility] [address] [id number] [place] [address]- 1894 Apr, [facility] [place] [facility] [address] [id number] [place] [address]- 2830 Sep, [facility] [place] [facility] [address] [id number] [place] [address]- 9056 24 Aug, 2011 [facility] [address] [facility] [id number] [place] [address]- 4975 16 Aug, 2011 [facility] [address] [facility] [id number] [place] [address]- 4836 Aug, [facility] [address] [facility] [id number] [place] [address]- 9896 Aug, [facility] [address] [facility] [id number] [place] [address]- 7534 Aug, [facility] [address] [facility] [id number] [place] [address], [place] [address]- 7387 Jul, [facility] [address] [facility] [id number] [place] 6873 Jul, [facility] [address]65[address] [address]- 1431 Jul, [facility] [address] [facility] [id number] [place] [address]- 6033 Jun, [facility] [address] [facility] [id number] [place] [address]- 9405 Jun, [facility] [address] [facility] [id number] [place] [address]- 8731 Jun, [facility] [address] [address]- 5962 May, [facility] [address] [facility] [id number] [place] [address]- 2046 Apr, [facility] [address] [facility] [id number] [place] 3191 Apr, [facility] [address] [facility] [id number] [place] 0394 Apr, [facility] [address] [id number] [address]- 2385 Apr, IMMUNIZATIONS Vaccine Route Administration Date Status PHENERGAN 50MG/ML IM Intramuscular Aug 02, 2017 Administered TORADOL (IM) 60 MG/2ML (UP TO 15 MG) IM Intramuscular Aug 02, 2017 Administered SOCIAL HISTORY Never Assessed REASON FOR VISIT Headache- started Tuesday, feels like it may be sinuses-light sensitive- Katiana Ewing RN PLAN OF CARE Activity Details Follow Up Routine appt Reason: VITAL SIGNS Height 69 in 2017-08-02 Weight 348 lbs 2017-08-02 Temperature 97.9 degrees Fahrenheit 2017-08-02 Heart Rate 98 bpm 2017-08-02 Respiratory Rate 18 2017-08-02 BMI 51.39 kg/m2 2017-08-02 Blood pressure systolic 148 mmHg 2017-08-02 Blood pressure diastolic 88 mmHg 2017-08-02 MEDICATIONS Medication Instructions Dosage Frequency Start Date End Date Duration Status Metformin HCl 500 MG Orally 2 times a day 1 tablet with meals 12h 90 Active Trulicity 1.5 MG/0.5ML Subcutaneous once weekly inject 0.5 ml Oct, 90 days Active Spironolactone 25 MG TAKE ONE TABLET BY MOUTH ONCE DAILY 30 Active Onzetra Xsail 11 MG/NOSEPC Nasally Once a day 1 spray in each nostril as needed one time 24h Jun, 1 day(s) Not-Taking Imitrex 50 MG Orally Twice a day 1 tablet as needed 12h 30 Active Mobic 7.5 MG Orally Once a day as needed for lega=pain 1-2tablet Dec, 90 days Active Propranolol HCl 10 MG TAKE ONE TABLET BY MOUTH TWICE DAILY 30 Active Diltiazem HCl ER Beads 240 MG TAKE ONE CAPSULE BY MOUTH DAILY 30 Active HydrOXYzine HCl 25 MG Orally every 6 hrs 1 tablet as needed 6h Dec, 0 days Active Zyrtec Allergy 10 MG Orally Once a day 1 tablet 24h Active Pepcid 20 MG Orally Once a day 1 tablet 24h Active RESULTS No Results PROCEDURES Procedure Date Ordered Result Body Site PHENERGAN 50MG/ML Aug 02, 2017 TORADOL (IM) 60 MG/2ML (UP TO 15 MG) Aug 02, 2017 THER/PROPH/DIAG INJ, SC/IM Aug 02, 2017 INSTRUCTIONS MEDICATIONS ADMINISTERED No Known Medications MEDICAL (GENERAL) HISTORY Type Description Date Medical History hypertension Medical History Sleep apnea in adult Surgical History x 3 Surgical History cholecystectomy Surgical History Chemical Stress Test, EKG, Echo 05/2016 Hospitalization History surgeries Hospitalization History UTI [facility] 05/2016
--- OUTSIDE RECORDS SUMMARY | 2018-02-08 12:44 | XMS REPORT ---
Author Author CARISA KHAN Organization [facility] Address [address] [place] [address] Care Team Providers Care Human Geography Instructor Name Role Phone CARISA KHAN Unavailable PROBLEMS Type Condition ICD9-CM Code TZD93-TS Code Onset Dates Condition Status SNOMED Code Problem Hyperinsulinemia E16.1 Active 68947786 Problem Tension headache G44.209 Active 620168970 Problem DM neuro manif type II E11.49 Active 91425692 Problem Iron deficiency anemia due to chronic blood loss D50.0 Active 851373743 Problem Menorrhagia with irregular cycle N92.1 Active 534976203 Problem Essential hypertension I10 Active 93055656 Problem Intractable migraine without aura and without status migrainosus G43.019 Active 212412334 Problem Sleep apnea in adult G47.30 Active 56099926 Problem Irritable bowel syndrome with diarrhea K58.0 Active 235165512 ALLERGIES No Information ENCOUNTERS Encounter Location Date Diagnosis [place] [id number] [place] [address] 91818- 9987 Jan, Pneumonia of left lung due to infectious organism, unspecified part of lung J18.9 [place] [id number] [place] [address] 04232- 3940 Dec, Pneumonia due to Mycoplasma pneumoniae, unspecified laterality, unspecified part of lung J15.7 and BMI 50.0-59.9, adult Z68.43 [place] [address] [place] [id number] [place] [address] 82565- 6552 Dec, [place] [address] 47206- 4898 Dec, Bronchitis J40 and BMI 50.0-59.9, adult Z68.43 [place] [address] 61423- 7470 November, Bronchitis J40 ; LLQ pain R10.32 and BMI 50.0-59.9, adult Z68.43 [place] [address] [place] [id number] [place] [address] 17658- 8833 November, Iron deficiency anemia due to chronic blood loss D50.0 [place] [address] [place] [id number] [place] [address] 85440- 5518 November, [place] [address] 96496- 2355 November, Iron deficiency anemia due to chronic blood loss D50.0 ; DM neuro manif type II E11.49 ; Menorrhagia with irregular cycle N92.1 and BMI 50.0 -59.9, adult Z68.43 [facility] [address] [address] Oct, Sore throat J02.9 and Acute nasopharyngitis J00 [facility] [address] 7[address] -8007 Oct, Left leg pain M79.605 and BMI 50.0-59.9, adult Z68.43 [facility] [place] [id number] [place] [address] 38461 -2206 Sep, Upper respiratory tract infection, unspecified type J06.9 and BMI 50.0-59.9, adult Z68.43 [place] [address] [place] [id number] [place] [address] 34327- 8498 Sep, Menorrhagia with irregular cycle N92.1 ; Sleep apnea in adult G47.30 and BMI 50.0-59.9, adult Z68.43 [place] [address] [place] [id number] [place] [address] 48002- 4314 Sep, [place] [address] [place] [id number] [place] [address] 67811- 0983 Aug, [place] [address] [place] [address]- 9310 Aug, [facility] [address] 68251- 0067 Aug, [facility] [address] 91993- 2393 Aug, LLQ pain R10.32 ; Irritable bowel syndrome with diarrhea K58.0 ; Change in bowel habits R19.4 ; Essential hypertension I10 and BMI 50.0- 59.9, adult Z68.43 [place] [address] 29174- 5599 Aug, [place] [address] 71733- 7866 Aug, [facility] [place] [address] 86831 -7795 Aug, Essential hypertension I10 and BMI 50.0-59.9, adult Z68.43 [place] [address] 69849- 4125 Aug, [place] [address] 75257- 4107 08 Aug, 2017 [facility] [place] [address] [place] [id number] [place] [address] 18651 -8955 02 Aug, 2017 Allergic disorder, initial encounter T78.40XA and BMI 50.0- 59.9, adult Z68.43 [facility] [place] [address] [address] [place] [id number] [place] [address] 08847 -7997 Jul, Other atopic dermatitis L20.89 and BMI 50.0-59.9, adult Z68.43 [place] [address] 08696- 2610 Jul, Intractable migraine without aura and without status migrainosus G43.019 and BMI 50.0-59.9, adult Z68.43 [place] [address] [place] [id number] [place] [address] 30058- 3337 Jun, 2017 DM neuro manif type II E11.49 ; Tension headache G44.209 ; Breast cancer screening Z12.31 and BMI 50.0-59.9, adult Z68.43 [facility] [address] [place] [id number] [place] [address] 11314- 7490 Jun, Tension headache G44.209 ; Breast cancer screening Z12.31 ; BMI 50.0-59.9, adult Z68.43 and DM neuro manif type II E11.49 [facility] IN [facility] [address] [place] [id number] [place] [address] 59350 -0338 Apr, Dysuria R30.0 and Acute cystitis with hematuria N30.01 [place] [address] [place] [id number] [place] [address] 54344- 6755 Apr, Hyperinsulinemia E16.1 [place] [address] 15115- 6582 Mar, Acute non-recurrent maxillary sinusitis J01.00 [place] [address] [place] [id number] [place] [address] 72470- 2301 Feb, Cellulitis of unspecified part of limb L03.119 ; Spider bite wound, accidental or unintentional, subsequent encounter T63.301D and BMI 50.0-59.9, adult Z68.43 [facility] [address] [place] [id number] [place] [address] 12320- 0692 Jan, [place] [address] [place] [id number] [place] [address] 68330- 7715 Jan, Urinary tract infection, site unspecified N39.0 [place] [address] 22351- 6640 Jan, Acute gastritis without hemorrhage, unspecified gastritis type K29.00 [facility] [address] [place] [id number] [place] [address] 73168- 8673 Dec, Pain in right leg M79.604 [place] [address] [place] [id number] [place] [address] 52510 2541 28 Dec, 2016 Hyperinsulinemia E16.1 and Pain in right leg M79.604 [place] [address] 28160 2546 27 Dec, 2016 Angioedema, initial encounter T78.3XXA [place] [address] 19986- 4076 15 Dec, 2016 Dental examination Z01.20 [place] [address] 43647- 1743 13 Dec, 2016 [place] [address] 99156- 7750 Dec, Burning with urination R30.0 and Acute cystitis with hematuria N30.01 [place] [address] 36944- 3791 Oct, [facility] [address] 55438- 2549 Sep, [place] [address] 36114- 0608 Aug, Hyperinsulinemia E16.1 [facility] [address] [place] [id number] [place] [address] 53707- 2542 Aug, [facility] [address] [place] [id number] [place] [address] 34274 2549 Jul, [facility] [address] [place] [id number] [place] [address] 52628- 2547 Jul, Chondromalacia, left knee M94.262 and Acute lateral meniscus tear of left knee, initial encounter S83.282A [place] [address] 90936- 2866 Jul, [facility] [address] 68740- 6306 Jun, Hyperinsulinemia E16.1 [facility] [id number] [place] [address] 33638- 1908 Jun, Dysuria R30.0 ; Back pain M54.9 ; Acute pain of left knee M25.562 and Hyperinsulinemia E16.1 [facility] [address] [place] [id number] [place] [address] 90630 2546 14 Jun, 2016 Acute non-recurrent maxillary sinusitis J01.00 [facility] [address] [place] [id number] [place] [address] 60822- 5246 Jun, Dysuria R30.0 [facility] [address] 20518- 0166 Jun, Dysuria R30.0 [facility] [address] [place] [id number] [place] [address] 32887- 6126 Jun, [facility] [address] 44347- 7055 May, Dysuria R30.0 and Acute cystitis with hematuria N30.01 [facility] [address] [place] [id number] [place] [address] 35758- 7129 May, Hyperinsulinemia E16.1 [facility] [address] [place] [id number] [place] [address] 52537- 0025 May, [facility] [address] [place] [id number] [place] [address] 37856- 6565 May, Sore throat J02.9 [facility] [address] [place] [id number] [place] [address] 64128- 254 May, [facility] [address] [place] [id number] [place] [address] 88395- 7509 08 Mar, 2016 Hyperinsulinemia E16.1 [facility] [address] [place] [id number] [place] [address] 17588- 5406 Jan, Hyperinsulinemia E16.1 [facility] [address] [place] [id number] [place] [address] 60690- 9578 Dec, DM neuro manif type II E11.49 [facility] [address] [place] [id number] [place] [address] 30316- 3248 November, Hyperinsulinemia E16.1 and Hypertension I10 [facility] [address] [place] [id number] [place] [address] 68979- 0989 Oct, [facility] [address] 60071- 5893 Oct, Hyperinsulinemia E16.1 [facility] [address] 42176- 7958 Oct, Pain, unspecified R52 [facility] [address] 30929- 6477 Oct, Pain in right foot M79.671 and Hyperinsulinemia E16.1 [facility] [address] [place] [id number] [place] [address] 41113- 1903 Oct, Hyperinsulinemia E16.1 [facility] [address] 42468- 3111 Oct, Hyperinsulinemia E16.1 [facility] [address] [place] [id number] [place] [address] 46602- 9269 17 Aug, 2015 Hypertension I10 and Viral illness B34.9 [facility] [address] [place] [id number] [place] [address] 56999- 5669 May, Back pain M54.9 [facility] [address] [place] [id number] [place] [address] 75337- 1909 Oct, [facility] [address] [place] [id number] [place] [address] 55695- 6217 Oct, [facility] [address] [place] [id number] [place] [address] 09758- 0264 Sep, [facility] [address] [place] [id number] [place] [address] 15658- 3825 Sep, [facility] [address] 78732- 6518 Sep, 2014 [facility] [place] [facility] [address] [id number] [place] [address]- 7764 Sep, 2014 [facility] [place] [facility] [address] [id number] [place] [address]- 7666 Sep, 2014 [facility] [place] [facility] [address] [id number] [place] [address]- 2942 Sep, 2014 [facility] [place] [facility] [address] [id number] [place] [address]- 2432 Sep, 2014 [facility] [place] [facility] [address] [id number] [place] [address]- 4546 Sep, 2014 [facility] [place] [facility] [address] [id number] [place] [address]- 3404 Sep, 2014 [facility] [place] [facility] [address] [id number] [place] [address]- 0016 Sep, 2014 [facility] [place] [facility] [address] [id number] [place] [address]- 1020 Sep, 2014 [facility] [place] [facility] [address] [id number] [place] [address]- 9042 Sep, 2014 [facility] [place] [facility] [address] [id number] [place] [address]- 1997 Mar, [facility] [place] [facility] [address] [id number] [place] [address]- 2348 Mar, [facility] [place] [facility] [address] [id number] [place] [address]- 8670 Feb, [facility] [place] [facility] [address] [id number] [place] [address]- 3438 Feb, [facility] [place] [facility] [address] [id number] [place] [address]- 5804 Feb, [facility] [place] [facility] [address] [id number] [place] [address]- 4342 Feb, [facility] [place] [facility] [address] [id number] [place] [address]- 9765 Dec, [facility] [place] [facility] [address] [id number] [place] [address]- 6604 Dec, [facility] [place] [facility] [address] [id number] [place] [address]- 2336 Dec, [facility] [place] [facility] [address] [id number] [place] [address]- 7108 Dec, [facility] [place] [facility] [address] [id number] [place] [address]- 6088 Dec, [facility] [place] [facility] [address] [id number] [place] [address]- 3796 Dec, [facility] [place] [facility] [address] [id number] [place] [address]- 5509 Dec, [facility] [place] [facility] [address] [id number] [place] [address]- 9127 Sep, [facility] [place] [facility] [address] [id number] [place] [address]- 5555 Sep, [facility] [place] [facility] [address] [id number] [place] [address]- 0118 Sep, [facility] [place] [facility] [address] [id number] [place] [address]- 4591 Sep, [facility] [place] [facility] [address] [id number] [place] [address]- 3436 Sep, [facility] [place] [facility] [address] [id number] [place] [address]- 3324 Sep, [facility] [place] [facility] [address] [id number] [place] [address]- 3561 Sep, [facility] [place] [facility] [address] [id number] [place] 8001 Sep, [facility] [place] [facility] [address] [id number] [place] [address]- 9963 Jul, [facility] [place] [facility] [address] [id number] [place] [address]- 7813 Jul, [facility] [place] [facility] [address] [id number] [place] [address]- 3356 Jun, [facility] [place] [facility] [address] [facility] [id number] [place] [address]- 9280 Jun, [facility] [place] [facility] [address] [id number] [place] [address]- 2052 May, [facility] [place] [facility] [address] [id number] [place] [address]- 1613 May, [facility] [place] [facility] [address] [id number] [place] [address]- 8798 May, [facility] [place] [facility] [address] [id number] [place] [address]- 4371 May, [facility] [place] [facility] [address] [id number] [place] [address]- 7086 May, [facility] [place] [facility] [address] [id number] [place] [address]- 2454 May, [facility] [place] [facility] [address] [facility] [id number] [place] [address]- 6906 May, [facility] [place] [facility] [address] [id number] [place] [address]- 8450 Apr, [facility] [place] [facility] [address] [id number] [place] [address]- 0926 Apr, [facility] [place] [facility] [address] [id number] [place] [address]- 4718 Apr, [facility] [place] [facility] [address] [id number] [place] [address]- 0077 Apr, [facility] [place] [facility] [address] [id number] [place] [address]- 8699 30 Apr, 2013 [facility] [place] [facility] [address] [id number] [place] [address]- 7416 Apr, [facility] [address] [id number] [place] [address]- 8829 Mar, [facility] [address] [id number] [place] [address]- 9606 Feb, [facility] [address] [id number] [place] [address]- 0861 Jan, [facility] [place] [facility] [address] [id number] [place] [address]- 0561 Jan, [facility] [address] [id number] [place] [address]- 6046 Jan, [facility] [address] [id number] [place] [address]- 2157 Dec, [facility] [address] [id number] [place] [address]- 5509 November, [facility] [address] [id number] [place] [address]- 1946 November, [facility] [address] [id number] [place] [address]- 1199 November, [facility] [address] [facility] [id number] [place] [address]- 7612 November, [facility] [address] [id number] [place] [address]- 2476 Oct, [facility] [address] [id number] [place] [address]- 4918 Aug, [facility] [place] [facility] [address] [id number] [place] [address]- 2543 Aug, [facility] [place] [facility] [address] [id number] [place] [address]- 2546 Aug, [facility] [place] [facility] [address] [id number] [place] [address]- 4530 Aug, [facility] [place] [facility] [address] [id number] [place] [address]- 6206 Aug, [facility] [place] [facility] [address] [id number] [place] [address]- 1188 Aug, [facility] [place] [facility] [address] [facility] [id number] [place] [address]- 9809 Jul, [facility] [place] [facility] [address] [id number] [place] [address]- 2991 May, [facility] [place] [facility] [address] [id number] [place] [address]- 6816 May, [facility] [place] [facility] [address] [id number] [place] [address]- 6540 May, [facility] [place] [facility] [address] [facility] [id number] [place] [address]- 5972 May, [facility] [place] [facility] [address] [facility] [id number] [place] [address]- 6362 May, [facility] [place] [facility] [address] [facility] [id number] [place] [address]- 1906 May, [facility] [place] [facility] [address] [facility] [id number] [place] [address]- 0461 May, [facility] [place] [facility] [address] [id number] [place] [address]- 9934 Apr, [facility] [place] [facility] [address] [id number] [place] [address]- 2672 Apr, [facility] [place] [facility] [address] [facility] [id number] [place] [address]- 9734 Apr, [facility] [place] [facility] [address] [id number] [place] [address]- 9755 Apr, [facility] [place] [facility] [address] [facility] [id number] [place] [address]- 3497 Apr, [facility] [place] [facility] [address] [id number] [place] [address]- 4504 Sep, [facility] [place] [facility] [address] [id number] [place] [address]- 3416 24 Aug, 2011 [facility] [place] [facility] [address] [id number] [place] [address] 2546 16 Aug, 2011 [facility] [place] [facility] [address] [id number] [place] [address] 2546 Aug, [facility] [place] [facility] [address] [id number] [place] [address] 2546 Aug, [facility] [place] [facility] [address] [id number] [place] [address], [place] [address]- 6764 Aug, [facility] [place] [facility] [address] [facility] [id number] [place] [address]- 9472 Jul, [facility] [place] [facility] [address] [facility] [id number] [place] [address]- 5482 Jul, [facility] [place] [facility] [address] [facility] [id number] [place] [address]- 1847 Jul, [facility] [place] [facility] [id number] [address]- 0576 Jun, [facility] [place] [facility] [address] [facility] [id number] [place] [address]- 6687 Jun, [facility] [place] [facility] [address] [facility] [id number] [place] [address] 2546 Jun, [facility] [place] [facility] [address] [facility] [id number] [place] [address] 254 May, [facility] [place] [facility] [address] [facility] [id number] [place] [address]- 4460 15 Apr, 2011 [facility] [place] [facility] [address] [facility] [id number] [place] [address] 2546 12 Apr, 2011 [facility] [place] [facility] [address] [facility] [id number] [place] [address]- 8668 Apr, [facility] [address] [facility] [id number] [place] [address] [address]647 Apr, IMMUNIZATIONS No Known Immunizations SOCIAL HISTORY Never Assessed REASON FOR VISIT Stomach pain PLAN OF CARE VITAL SIGNS MEDICATIONS Unknown [...]
[2018-02-08 12:45] VITALS: BP 125/93
--- OUTSIDE RECORDS SUMMARY | 2018-02-08 12:45 | XMS REPORT ---
Author Author CARISA KHAN Organization [facility] Address [address] [place] [address] Care Team Providers Care Route Delivery Service Driver Name Role Phone CARISA KHAN Unavailable PROBLEMS Type Condition ICD9-CM Code HYQ95-PU Code Onset Dates Condition Status SNOMED Code Problem DM neuro manif type II E11.49 Active 48634187 Problem Tension headache G44.209 Active 563069364 Problem Pain, unspecified R52 Active 734121328 Problem Viral illness B34.9 Active 58152973 Problem Hyperinsulinemia E16.1 Active 96325653 Problem Menorrhagia with irregular cycle N92.1 Active 788112867 Problem Sleep apnea in adult G47.30 Active 07049647 Problem Other atopic dermatitis L20.89 Active 22737099 Problem Intractable migraine without aura and without status migrainosus G43.019 Active 234973604 Problem Irritable bowel syndrome with diarrhea K58.0 Active 256580310 Problem Essential hypertension I10 Active 29607269 ALLERGIES No Information ENCOUNTERS Encounter Location Date Diagnosis [facility] [id number] [place] [address] 91681- 4143 November, [facility] [id number] [place] [address] 09029 -3628 Oct, Sore throat J02.9 and Acute nasopharyngitis J00 [facility] [id number] [place] [address] 05851 -5647 Oct, Left leg pain M79.605 and BMI 50.0-59.9, adult Z68.43 [facility] [id number] [place] [address] 99193 -7445 Sep, Upper respiratory tract infection, unspecified type J06.9 and BMI 50.0-59.9, adult Z68.43 [facility] [id number] [place] [address] 19851- 2018 Sep, Menorrhagia with irregular cycle N92.1 ; Sleep apnea in adult G47.30 and BMI 50.0-59.9, adult Z68.43 [facility] [id number] [place] [address] 85592- 3641 Sep, [facility] [address] 03116- 7629 Aug, [facility] [address] 22629- 3677 Aug, [place] [address] 86745- 5759 Aug, [place] [id number] [place] [address] 60446- 4279 Aug, LLQ pain R10.32 ; Irritable bowel syndrome with diarrhea K58.0 ; Change in bowel habits R19.4 ; Essential hypertension I10 and BMI 50.0- 59.9, adult Z68.43 [facility] [address] 97504- 3036 Aug, [facility] [id number] [place] [address] 92662- 9338 Aug, [facility] [id number] [place] [address] 63933 -4346 Aug, Essential hypertension I10 and BMI 50.0-59.9, adult Z68.43 [facility] [id number] [place] [address] 49716- 9485 Aug, [facility] [address] 44518- 2318 Aug, [facility] [id number] [place] [address] 95953 -6228 Aug, Allergic disorder, initial encounter T78.40XA and BMI 50.0- 59.9, adult Z68.43 [facility] [id number] [place] [address] 13358 -0219 Jul, Other atopic dermatitis L20.89 and BMI 50.0-59.9, adult Z68.43 [facility] [address] 23781- 5237 16 Jul, 2017 Intractable migraine without aura and without status migrainosus G43.019 and BMI 50.0-59.9, adult Z68.43 [place] [address] 57277- 5920 Jun, DM neuro manif type II E11.49 ; Tension headache G44.209 ; Breast cancer screening Z12.31 and BMI 50.0-59.9, adult Z68.43 [place] [address] 88894- 9331 Jun, Tension headache G44.209 ; Breast cancer screening Z12.31 ; BMI 50.0-59.9, adult Z68.43 and DM neuro manif type II E11.49 [facility] [address] 83035 -1253 Apr, Dysuria R30.0 and Acute cystitis with hematuria N30.01 [place] [address] 62398- 3175 Apr, Hyperinsulinemia E16.1 [place] [address] 38004- 7631 Mar, Acute non-recurrent maxillary sinusitis J01.00 [place] [address] 64932- 3145 Feb, Cellulitis of unspecified part of limb L03.119 ; Spider bite wound, accidental or unintentional, subsequent encounter T63.301D and BMI 50.0-59.9, adult Z68.43 [place] [address] 85976- 9467 Jan, [place] [id number] [place] [address] 97004- 2073 Jan, Urinary tract infection, site unspecified N39.0 [place] [address] 80329- 4952 Jan, Acute gastritis without hemorrhage, unspecified gastritis type K29.00 [place] [address] 96040- 9653 30 Dec, 2016 Pain in right leg M79.604 [place] [address] 73481- 4186 Dec, Hyperinsulinemia E16.1 and Pain in right leg M79.604 [place] [address] 90810- 5435 Dec, Angioedema, initial encounter T78.3XXA [place] [address] 75450- 0503 15 Dec, 2016 Dental examination Z01.20 [place] [address] 46596- 7536 Dec, [place] [address] 13405- 5693 Dec, Burning with urination R30.0 and Acute cystitis with hematuria N30.01 [place] [address] 78070- 1163 Oct, [place] [address] 83303- 7299 Sep, [place] [address] 05547- 8923 Aug, Hyperinsulinemia E16.1 [place] [address] 02886- 9479 Aug, [place] [address] 37984- 4192 Jul, [facility] [id number] [place] [address] 99731- 9636 Jul, Chondromalacia, left knee M94.262 and Acute lateral meniscus tear of left knee, initial encounter S83.282A [facility] [id number] [place] [address] 25401- 9906 Jul, [facility] [address] 59151- 3966 Jun, Hyperinsulinemia E16.1 [facility] [id number] [place] [address] 83454- 3938 Jun, Dysuria R30.0 ; Back pain M54.9 ; Acute pain of left knee M25.562 and Hyperinsulinemia E16.1 [facility] [id number] [place] [address] 24772- 8800 Jun, Acute non-recurrent maxillary sinusitis J01.00 [facility] [id number] [place] [address] 71288- 8166 Jun, Dysuria R30.0 [facility] [id number] [place] [address] 03835- 2546 Jun, Dysuria R30.0 [facility] [id number] [place] [address] 12974- 2546 Jun, [facility] [id number] [place] [address] 31297- 2542 May, Dysuria R30.0 and Acute cystitis with hematuria N30.01 [facility] [id number] [place] [address] 61867- 5706 May, Hyperinsulinemia E16.1 [facility] [id number] [place] [address] 71262- 1587 May, [facility] [id number] [place] [address] 00865- 9857 May, Sore throat J02.9 [facility] [id number] [place] [address] 54348- 2262 May, [facility] [address] 30668- 9508 Mar, Hyperinsulinemia E16.1 [facility] [address] 59639- 9927 Jan, Hyperinsulinemia E16.1 [facility] [address] 66393- 0058 Dec, DM neuro manif type II E11.49 [facility] [address] 23195- 5642 November, Hyperinsulinemia E16.1 and Hypertension I10 [facility] [address] 16248- 9201 Oct, [facility] [address] 70982- 7136 Oct, Hyperinsulinemia E16.1 [facility] [address] 13188- 0010 Oct, Pain, unspecified R52 [facility] [address] 61161- 7652 14 Oct, 2015 Pain in right foot M79.671 and Hyperinsulinemia E16.1 [facility] [address] 27328- 0923 Oct, Hyperinsulinemia E16.1 [facility] [id number] [place] [address] 05574- 6072 Oct, Hyperinsulinemia E16.1 [facility] [address] 56607- 4486 17 Aug, 2015 Hypertension I10 and Viral illness B34.9 [facility] [address] 01377- 8703 May, Back pain M54.9 [facility] [address] [facility] [id number] [place] [address]- 5283 14 Oct, 2014 [facility] [place] [facility] [address] [id number] [place] [address]- 9548 13 Oct, 2014 [facility] [place] [facility] [address] [id number] [place] [address]- 2696 30 Sep, 2014 [facility] [place] [facility] [address] [id number] [place] [address]- 9676 30 Sep, 2014 [facility] [place] [facility] [address] [id number] [place] [address]- 4342 17 Sep, 2014 [facility] [place] [facility] [address] [id number] [place] [address]- 7249 17 Sep, 2014 [facility] [place] [facility] [address] [id number] [place] [address]- 0580 Sep, [facility] [place] [facility] [address] [id number] [place] [address]- 1098 Sep, 2014 [facility] [place] [facility] [address] [id number] [place] [address]- 3405 Sep, [facility] [place] [facility] [address] [id number] [place] [address]- 1817 Sep, [facility] [place] [facility] [address] [id number] [place] [address]- 6934 Sep, [facility] [place] [facility] [address] [id number] [place] [address]- 5678 Sep, 2014 [facility] [place] [facility] [address] [id number] [place] [address]- 5956 Sep, [facility] [place] [facility] [address] [id number] [place] [address]- 4440 Sep, [facility] [place] [facility] [address] [id number] [place] [address]- 2816 Mar, [facility] [place] [facility] [address] [id number] [place] [address]- 5949 Mar, [facility] [place] [facility] [address] [id number] [place] [address]- 7271 Feb, [facility] [place] [facility] [address] [id number] [place] [address]- 7722 Feb, [facility] [place] [facility] [address] [id number] [place] [address]- 0467 Feb, [facility] [place] [facility] [address] [id number] [place] [address]- 3177 Feb, [facility] [place] [facility] [address] [id number] [place] [address]- 6118 Dec, [facility] [place] [facility] [address] [id number] [place] [address]- 0655 Dec, [facility] [place] [facility] [address] [id number] [place] [address]- 5632 Dec, [facility] [place] [facility] [address] [id number] [place] [address]- 8733 Dec, [facility] [place] [facility] [address] [id number] [place] [address]- 9214 Dec, [facility] [place] [facility] [address] [id number] [place] [address]- 2024 Dec, [facility] [place] [facility] [address] [id number] [place] [address]- 4037 Dec, [facility] [place] [facility] [address] [id number] [place] [address]- 3997 Sep, [facility] [place] [facility] [address] [id number] [place] [address]- 4045 Sep, [facility] [place] [facility] [address] [id number] [place] [address]- 5708 Sep, [facility] [place] [facility] [address] [id number] [place] [address]- 4015 Sep, [facility] [place] [facility] [address] [id number] [place] [address]- 3868 Sep, [facility] [place] [facility] [address] [id number] [place] [address]- 0132 Sep, [facility] [place] [facility] [address] [id number] [place] [address]- 9464 Sep, [facility] [place] [facility] [address] [facility] [id number] [place] [address]- 7927 Sep, [facility] [place] [facility] [address] [id number] [place] [address]- 9631 Jul, [facility] [place] [facility] [address] [id number] [place]- 4528 Jul, [facility] [place] [facility] [address] [id number] [place] [address]- 3609 Jun, [facility] [place] [facility] [address] [facility] [id number] [place] [address]- 9131 Jun, [facility] [place] [facility] [address] [id number] [place] [address]- 5826 May, [facility] [place] [facility] [address] [id number] [place] [address]- 8682 May, [facility] [place] [facility] [address] [facility] [id number] [place] [address]- 3800 May, [facility] [place] [facility] [address] [id number] [place] [address]- 6294 May, [facility] [place] [facility] [address] [id number] [address]- 1947 May, [facility] [place] [facility] [address] [id number] [place] [address]- 1288 May, [facility] [place] [facility] [address] [facility] [id number] [place] [address]- 7051 05 May, 2013 [facility] [place] [facility] [address] [facility] [id number] [place]- 0100 Apr, [facility] [place] [facility] [address] [id number] [place] [address]- 6293 Apr, [facility] [place] [facility] [address] [id number] [place] [address]- 5561 Apr, [facility] [place] [facility] [address] [id number] [place] [address]- 3126 Apr, [facility] [place] [facility] [address] [id number] [place] [address]- 3795 Apr, [facility] [place] [facility] [address] [id number] [place] [address]- 4987 Apr, [facility] [place] [facility] [address] [id number] [place] [address]- 4814 Mar, [facility] [place] [facility] [address] [id number] [place] [address]- 5027 Feb, [facility] [place] [facility] [address] [id number] [place] [address]- 9596 Jan, [facility] [place] [facility] [address] [id number] [place] [address]- 4347 Jan, [facility] [place] [facility] [address] [id number] [place] [address]- 7738 Jan, [facility] [place] [facility] [address] [id number] [place] [address]- 1108 Dec, [facility] [place] [facility] [address] [id number] [place] [address]- 6219 November, [facility] [place] [facility] [address] [id number] [place] [address]- 2455 November, [facility] [place] [facility] [address] [id number] [place] [address]- 8411 November, [facility] [place] [facility] [address] [id number] [place] [address]- 3843 November, [facility] [place] [facility] [address] [id number] [place] [address]- 7043 Oct, [facility] [address] [id number] [place] [address]- 4081 Aug, [facility] [place] [facility] [address] [id number] [place] 1496 Aug, [facility] [address] [facility] [id number] [place] [address]- 2546 Aug, [facility] [place] [facility] [address] [id number] [place] [address]- 2255 Aug, [facility] [address] [id number] [place] [address]- 3084 Aug, [facility] [address] [facility] [id number] [place] [address]- 4576 Aug, [facility] [address] [place] [id number] [address]- 3958 Jul, [facility] [address] [facility] [id number] [place] [address]- 7143 May, [facility] [address] [facility] [id number] [place] [address]- 0480 May, [facility] [place] [facility] [address] [facility] [id number] [place] [address]- 2262 May, [facility] [address] [facility] [id number] [address]- 9492 May, [facility] [place] [facility] [address] [facility] [id number] [place] [address]- 7135 May, [facility] [place] [facility] [address] [facility] [id number] [place] [address]- 2403 May, [facility] [place] [facility] [address] [facility] [id number] [place] [address]- 5474 May, [facility] [place] [facility] [address] [facility] [id number] [place] [address]- 7819 Apr, [facility] [place] [facility] [address] [id number] [place] [address]- 0259 30 Apr, 2012 [facility] [place] [facility] [address] [id number] [place] 1076 Apr, [facility] [place] [facility] [address] [id number] [place] [address]- 1776 Apr, [facility] [place] [facility] [address] [id number] [place] [address]- 7233 Apr, [facility] [place] [facility] [address] [id number] [place] [address]- 9259 Sep, [facility] [place] [facility] [address] [id number] [place] [address]- 7638 24 Aug, 2011 [facility] [place] [facility] [address] [id number] [place] [address]- 1229 16 Aug, 2011 [facility] [place] [facility] [address] [id number] [place] [address]- 8272 Aug, [facility] [place] [facility] [address] [id number] [place] [address]- 2043 Aug, [facility] [place] [facility] [address] [facility] [id number] [place] [address]- 7656 Aug, [facility] [place] [facility] [address] [facility] [id number] [place] [address]- 6018 Jul, [facility] [place] [facility] [address] [id number] [place] [address]- 7415 Jul, [facility] [place] [facility] [address] [id number] [place] [address]- 2813 Jul, [facility] [place] [facility] [address] [id number] [place] [address]- 0386 Jun, [facility] [place] [facility] [address] [id number] [place] 8671 Jun, [facility] [place] [facility] [address] [id number] [place] [address]- 2546 Jun, [facility] [address] [facility] [id number] [place] [address]- 2546 May, [facility] [address] [facility] [id number] [place] [address]- 2546 Apr, [facility] [address] [facility] [id number] [place] [address]- 2546 Apr, [facility] [address] [facility] [id number] [place] [address]- 2546 Apr, [facility] [address] [facility] [id number] [place] [address]- 2266 Apr, IMMUNIZATIONS No Known Immunizations SOCIAL HISTORY Never Assessed REASON FOR VISIT PALS/Trulicity PLAN OF CARE VITAL SIGNS MEDICATIONS Medication [...]
--- OUTSIDE RECORDS SUMMARY | 2018-02-08 12:45 | XMS REPORT ---
Author Author CARISA KHAN Organization [facility] Address [address] [place] [address] Care Team Providers Care Biology Laboratory Assistant Name Role Phone CARISA KHAN Unavailable PROBLEMS Type Condition ICD9-CM Code IQD25-PM Code Onset Dates Condition Status SNOMED Code Problem Hyperinsulinemia E16.1 Active 85351211 Problem Tension headache G44.209 Active 664038871 Problem DM neuro manif type II E11.49 Active 17763867 Problem Iron deficiency anemia due to chronic blood loss D50.0 Active 589266258 Problem Menorrhagia with irregular cycle N92.1 Active 151841160 Problem Essential hypertension I10 Active 16863552 Problem Intractable migraine without aura and without status migrainosus G43.019 Active 473011983 Problem Sleep apnea in adult G47.30 Active 50964301 Problem Irritable bowel syndrome with diarrhea K58.0 Active 421814709 ALLERGIES No Information ENCOUNTERS Encounter Location Date Diagnosis [place] [id number] [place] [address] 53166- 7696 Jan, Pneumonia of left lung due to infectious organism, unspecified part of lung J18.9 [place] [id number] [place] [address] 76562- 1420 Dec, Pneumonia due to Mycoplasma pneumoniae, unspecified laterality, unspecified part of lung J15.7 and BMI 50.0-59.9, adult Z68.43 [place] [address] [place] [id number] [place] [address] 93771- 1011 Dec, [place] [address] [address]69- 3915 Dec, Bronchitis J40 and BMI 50.0-59.9, adult Z68.43 [place] [address] 34345- 3222 November, Bronchitis J40 ; LLQ pain R10.32 and BMI 50.0-59.9, adult Z68.43 [place] [address] [place] [id number] [place] [address] 33372- 0275 November, Iron deficiency anemia due to chronic blood loss D50.0 [place] [address] [place] [id number] [place] [address] 96146- 4595 November, [place] [address] 83533- 4913 November, Iron deficiency anemia due to chronic blood loss D50.0 ; DM neuro manif type II E11.49 ; Menorrhagia with irregular cycle N92.1 and BMI 50.0 -59.9, adult Z68.43 [facility] [address] [address] Oct, Sore throat J02.9 and Acute nasopharyngitis J00 [facility] [address] [address] -[address]27 Oct, Left leg pain M79.605 and BMI 50.0-59.9, adult Z68.43 [facility] [place] [id number] [place] [address] 07107 -5639 Sep, Upper respiratory tract infection, unspecified type J06.9 and BMI 50.0-59.9, adult Z68.43 [place] [address] [place] [id number] [place] [address] 80343- 4068 Sep, Menorrhagia with irregular cycle N92.1 ; Sleep apnea in adult G47.30 and BMI 50.0-59.9, adult Z68.43 [place] [address] [place] [id number] [place] [address] 77487- 1077 Sep, [place] [address] [place] [id number] [place] [address] 87520- 1666 Aug, [place] [address] [place] [address]- 3457 Aug, [facility] [address] 50851- 1042 Aug, [facility] [address] 01850- 8224 Aug, LLQ pain R10.32 ; Irritable bowel syndrome with diarrhea K58.0 ; Change in bowel habits R19.4 ; Essential hypertension I10 and BMI 50.0- 59.9, adult Z68.43 [place] [address] 60596- 0449 Aug, [place] [address] 66826- 9541 Aug, [facility] [place] [address] 56010 -1289 Aug, Essential hypertension I10 and BMI 50.0-59.9, adult Z68.43 [place] [address] 63884- 3640 Aug, [place] [address] 16706- 2920 08 Aug, 2017 [facility] [place] [address] [place] [id number] [place] [address] 35406 -1433 02 Aug, 2017 Allergic disorder, initial encounter T78.40XA and BMI 50.0- 59.9, adult Z68.43 [facility] [place] [address] [place] [id number] [place] [address] 98465 -4007 Jul, Other atopic dermatitis L20.89 and BMI 50.0-59.9, adult Z68.43 [place] [address] 04964- 3851 Jul, Intractable migraine without aura and without status migrainosus G43.019 and BMI 50.0-59.9, adult Z68.43 [place] [address] [place] [id number] [place] [address] 04612- 3214 Jun, 2017 DM neuro manif type II E11.49 ; Tension headache G44.209 ; Breast cancer screening Z12.31 and BMI 50.0-59.9, adult Z68.43 [facility] [address] [place] [id number] [place] [address] 56715- 8303 Jun, Tension headache G44.209 ; Breast cancer screening Z12.31 ; BMI 50.0-59.9, adult Z68.43 and DM neuro manif type II E11.49 [facility] [address] [place] [id number] [place] [address] 11035 -5856 Apr, Dysuria R30.0 and Acute cystitis with hematuria N30.01 [place] [address] [place] [id number] [place] [address] 48443- 3283 Apr, Hyperinsulinemia E16.1 [place] [address] 07194- 7762 Mar, Acute non-recurrent maxillary sinusitis J01.00 [place] [address] [place] [id number] [place] [address] 20807- 1472 Feb, Cellulitis of unspecified part of limb L03.119 ; Spider bite wound, accidental or unintentional, subsequent encounter T63.301D and BMI 50.0-59.9, adult Z68.43 [facility] [address] [place] [id number] [place] [address] 93379- 8743 Jan, [place] [address] [place] [id number] [place] [address] 06011- 8979 Jan, Urinary tract infection, site unspecified N39.0 [place] [address] 05964- 8868 Jan, Acute gastritis without hemorrhage, unspecified gastritis type K29.00 [facility] [address] [place] [id number] [place] [address] 18424- 5563 Dec, Pain in right leg M79.604 [place] [address] [place] [id number] [place] [address] 65166 2543 28 Dec, 2016 Hyperinsulinemia E16.1 and Pain in right leg M79.604 [place] [address] 86186 2546 27 Dec, 2016 Angioedema, initial encounter T78.3XXA [place] [address] 12871- 8426 15 Dec, 2016 Dental examination Z01.20 [place] [address] 36326- 6701 13 Dec, 2016 [place] [address] 24014- 4743 Dec, Burning with urination R30.0 and Acute cystitis with hematuria N30.01 [place] [address] 38551- 4481 Oct, [facility] [address] 36768- 2542 Sep, [place] [address] 66470- 6865 Aug, Hyperinsulinemia E16.1 [facility] [address] [place] [id number] [place] [address] 87714- 2543 Aug, [facility] [address] [place] [id number] [place] [address] 03874 2548 Jul, [facility] [address] [place] [id number] [place] [address] 89280- 2540 Jul, Chondromalacia, left knee M94.262 and Acute lateral meniscus tear of left knee, initial encounter S83.282A [place] [address] 42886- 2366 Jul, [facility] [address] 56627- 9966 Jun, Hyperinsulinemia E16.1 [facility] [address] [place] [address] 95149- 6595 Jun, Dysuria R30.0 ; Back pain M54.9 ; Acute pain of left knee M25.562 and Hyperinsulinemia E16.1 [facility] [address] [place] [id number] [place] [address] 44516 2546 14 Jun, 2016 Acute non-recurrent maxillary sinusitis J01.00 [facility] [address] [place] [id number] [place] [address] 96295- 3916 Jun, Dysuria R30.0 [facility] [address] 22225- 0566 Jun, Dysuria R30.0 [facility] [address] [place] [id number] [place] [address] 36600- 4906 Jun, [facility] [address] 26873- 6779 May, Dysuria R30.0 and Acute cystitis with hematuria N30.01 [facility] [address] [place] [id number] [place] [address] 13034- 6934 May, Hyperinsulinemia E16.1 [facility] [address] [place] [id number] [place] [address] 96218- 5703 May, [facility] [address] [place] [id number] [place] [address] 26479- 6225 May, Sore throat J02.9 [facility] [address] [place] [id number] [place] [address] 10098- 2540 May, [facility] [address] [place] [id number] [place] [address] 33702- 3783 08 Mar, 2016 Hyperinsulinemia E16.1 [facility] [address] [place] [id number] [place] [address] 19365- 5816 Jan, Hyperinsulinemia E16.1 [facility] [address] [place] [id number] [place] [address] 30572- 4788 Dec, DM neuro manif type II E11.49 [facility] [address] [place] [id number] [place] [address] 82660- 2071 November, Hyperinsulinemia E16.1 and Hypertension I10 [facility] [address] [place] [id number] [place] [address] 25434- 4202 Oct, [facility] [address] 32494- 0939 Oct, Hyperinsulinemia E16.1 [facility] [address] 91408- 2349 Oct, Pain, unspecified R52 [facility] [address] 40196- 9981 Oct, Pain in right foot M79.671 and Hyperinsulinemia E16.1 [facility] [address] [place] [id number] [place] [address] 72946- 7011 Oct, Hyperinsulinemia E16.1 [facility] [address] 50129- 5939 Oct, Hyperinsulinemia E16.1 [facility] [address] [place] [id number] [place] [address] 40389- 3155 17 Aug, 2015 Hypertension I10 and Viral illness B34.9 [facility] [address] [place] [id number] [place] [address] 88057- 9449 May, Back pain M54.9 [facility] [address] [place] [id number] [place] [address] 60647- 7311 Oct, [facility] [address] [place] [id number] [place] [address] 02415- 2347 Oct, [facility] [address] [place] [id number] [place] [address] 94791- 5522 Sep, [facility] [address] [place] [id number] [place] [address] 60185- 1983 Sep, [facility] [address] 06667- 1359 Sep, 2014 [facility] [place] [facility] [address] [id number] [place] [address]- 7862 Sep, 2014 [facility] [place] [facility] [address] [id number] [place] [address]- 9437 Sep, 2014 [facility] [place] [facility] [address] [id number] [place] [address]- 4505 Sep, 2014 [facility] [place] [facility] [address] [id number] [place] [address]- 9985 Sep, 2014 [facility] [place] [facility] [address] [id number] [place] [address]- 2142 Sep, 2014 [facility] [place] [facility] [address] [id number] [place] [address]- 4404 Sep, 2014 [facility] [place] [facility] [address] [id number] [place] [address]- 5778 Sep, 2014 [facility] [place] [facility] [address] [id number] [place] [address]- 6314 Sep, 2014 [facility] [place] [facility] [address] [id number] [place] [address]- 5573 Sep, 2014 [facility] [place] [facility] [address] [id number] [place] [address]- 9160 Mar, [facility] [place] [facility] [address] [id number] [place] [address]- 0923 Mar, [facility] [place] [facility] [address] [id number] [place] [address]- 3238 Feb, [facility] [place] [facility] [address] [id number] [place] [address]- 7135 Feb, [facility] [place] [facility] [address] [id number] [place] [address]- 6924 Feb, [facility] [place] [facility] [address] [id number] [place] [address]- 9629 Feb, [facility] [place] [facility] [address] [id number] [place] [address]- 7988 Dec, [facility] [place] [facility] [address] [id number] [place] [address]- 6484 Dec, [facility] [place] [facility] [address] [id number] [place] [address]- 2322 Dec, [facility] [place] [facility] [address] [id number] [place] [address]- 4122 Dec, [facility] [place] [facility] [address] [id number] [place] [address]- 5682 Dec, [facility] [place] [facility] [address] [id number] [place] [address]- 1315 Dec, [facility] [place] [facility] [address] [id number] [place] [address]- 0780 Dec, [facility] [place] [facility] [address] [id number] [place] [address]- 2804 Sep, [facility] [place] [facility] [address] [id number] [place] [address]- 1889 Sep, [facility] [place] [facility] [address] [id number] [place] [address]- 3641 Sep, [facility] [place] [facility] [address] [id number] [place] [address]- 7240 Sep, [facility] [place] [facility] [address] [id number] [place] [address]- 4973 Sep, [facility] [place] [facility] [address] [id number] [place] [address]- 7158 Sep, [facility] [place] [facility] [address] [id number] [place] [address]- 7999 Sep, [facility] [place] [facility] [address] [id number] [place] 5758 Sep, [facility] [place] [facility] [address] [id number] [place] [address]- 1293 Jul, [facility] [place] [facility] [address] [id number] [place] [address]- 2897 Jul, [facility] [place] [facility] [address] [id number] [place] [address]- 8643 Jun, [facility] [place] [facility] [address] [facility] [id number] [place] [address]- 4715 Jun, [facility] [place] [facility] [address] [id number] [place] [address]- 0733 May, [facility] [place] [facility] [address] [id number] [place] [address]- 7238 May, [facility] [place] [facility] [address] [id number] [place] [address]- 7179 May, [facility] [place] [facility] [address] [id number] [place] [address]- 8049 May, [facility] [place] [facility] [address] [id number] [address]- 0095 May, [facility] [place] [facility] [address] [id number] [address]- 5712 May, [facility] [place] [facility] [address] [facility] [id number] [address]- 2449 May, [facility] [place] [facility] [address] [id number] [address]- 2038 Apr, [facility] [place] [facility] [address] [id number] [address]- 9467 Apr, [facility] [place] [facility] [address] [id number] [place] [address]- 9496 Apr, [facility] [place] [facility] [address] [id number] [address]- 1856 Apr, [facility] [place] [facility] [address] [id number] [place] [address]- 5923 30 Apr, 2013 [facility] [place] [facility] [address] [id number] [place] [address]- 2482 Apr, [facility] [address] [id number] [place] [address]- 7498 Mar, [facility] [address] [id number] [place] [address]- 1826 Feb, [facility] [address] [id number] [place] [address]- 5152 Jan, [facility] [place] [facility] [address] [id number] [place] [address]- 0782 Jan, [facility] [address] [id number] [place] [address]- 3209 Jan, [facility] [address] [id number] [place] [address]- 5367 Dec, [facility] [address] [id number] [place] [address]- 4694 November, [facility] [address] [id number] [place] [address]- 9010 November, [facility] [address] [id number] [place] [address]- 9427 November, [facility] [address] [facility] [id number] [place] [address]- 2330 November, [facility] [address] [id number] [place] [address]- 7615 Oct, [facility] [address] [id number] [place] [address]- 2048 Aug, [facility] [place] [facility] [address] [id number] [place] [address]- 1321 Aug, [facility] [place] [facility] [address] [id number] [place] [address]- 2546 Aug, [facility] [place] [facility] [address] [id number] [place] [address]- 6298 Aug, [facility] [place] [facility] [address] [id number] [place] [address]- 2651 Aug, [facility] [place] [facility] [address] [id number] [place] [address]- 7987 Aug, [facility] [place] [facility] [address] [facility] [id number] [place] [address]- 8959 Jul, [facility] [place] [facility] [address] [id number] [place] [address]- 6004 May, [facility] [place] [facility] [address] [id number] [place] [address]- 6489 May, [facility] [place] [facility] [address] [id number] [place] [address]- 8759 May, [facility] [place] [facility] [address] [facility] [id number] [place] [address]- 9560 May, [facility] [place] [facility] [address] [facility] [id number] [address]- 9688 May, [facility] [place] [facility] [address] [facility] [id number] [place] [address]- 6873 May, [facility] [place] [facility] [address] [facility] [id number] [place] [address]- 8545 May, [facility] [place] [facility] [address] [id number] [place] [address]- 1075 Apr, [facility] [place] [facility] [address] [id number] [address]- 8607 Apr, [facility] [place] [facility] [address] [facility] [id number] [place] [address]- 2332 Apr, [facility] [place] [facility] [address] [id number] [place] [address]- 0830 Apr, [facility] [place] [facility] [address] [facility] [id number] [place] [address]- 6071 Apr, [facility] [place] [facility] [address] [id number] [place] [address]- 3585 Sep, [facility] [place] [facility] [address] [id number] [place] [address]- 8396 24 Aug, 2011 [facility] [place] [facility] [address] [id number] [place] [address] 2546 16 Aug, 2011 [facility] [place] [facility] [address] [id number] [place] [address] 2546 Aug, [facility] [place] [facility] [address] [id number] [place] [address] 2546 Aug, [facility] [place] [facility] [id number] [place] [address], [place] [address]- 5778 Aug, [facility] [place] [facility] [address] [facility] [id number] [place] [address]- 7599 Jul, [facility] [place] [facility] [address] [facility] [id number] [place] [address]- 1692 Jul, [facility] [place] [facility] [address] [facility] [id number] [place] [address]- 3844 Jul, [facility] [place] [facility] [id number] [place] [address]- 1361 Jun, [facility] [place] [facility] [address] [facility] [id number] [place] [address]- 2607 Jun, [facility] [place] [facility] [address] [facility] [id number] [place] [address] 2546 Jun, [facility] [place] [facility] [address] [facility] [id number] [place] [address] 2542 May, [facility] [place] [facility] [address] [facility] [id number] [place] [address]- 2553 15 Apr, 2011 [facility] [place] [facility] [address] [facility] [id number] [place] [address] 2546 12 Apr, 2011 [facility] [place] [facility] [address] [facility] [id number] [place] [address]- 0609 Apr, [facility] [address] [facility] [id number] [place] [address] [address]40 Apr, IMMUNIZATIONS No Known Immunizations SOCIAL HISTORY Never Assessed REASON FOR VISIT Requests return call PLAN OF CARE VITAL SIGNS MEDICATIONS Unknown [...]
--- OUTSIDE RECORDS SUMMARY | 2018-02-08 12:46 | XMS REPORT ---
Author Author CARISA KHAN Organization [facility] Address [address] [place] [address] Care Team Providers Care Bed Laster Name Role Phone CARISA KHAN Unavailable PROBLEMS Type Condition ICD9-CM Code VCM59-OT Code Onset Dates Condition Status SNOMED Code Problem Hyperinsulinemia E16.1 Active 73488467 Problem Tension headache G44.209 Active 066425702 Problem DM neuro manif type II E11.49 Active 35956371 Problem Iron deficiency anemia due to chronic blood loss D50.0 Active 182509266 Problem Menorrhagia with irregular cycle N92.1 Active 771421796 Problem Essential hypertension I10 Active 93157783 Problem Intractable migraine without aura and without status migrainosus G43.019 Active 878638474 Problem Sleep apnea in adult G47.30 Active 48292555 Problem Irritable bowel syndrome with diarrhea K58.0 Active 701295072 ALLERGIES No Information ENCOUNTERS Encounter Location Date Diagnosis [place] [id number] [place] [address] 42690- 1428 Jan, Pneumonia of left lung due to infectious organism, unspecified part of lung J18.9 [place] [address] [place] [address] 85627- 8037 Dec, Pneumonia due to Mycoplasma pneumoniae, unspecified laterality, unspecified part of lung J15.7 and BMI 50.0-59.9, adult Z68.43 [place] [address] [place] [id number] [place] [address] 77001- 1888 Dec, [place] [address] 13649- 2765 Dec, Bronchitis J40 and BMI 50.0-59.9, adult Z68.43 [place] [address] 56782- 3693 November, Bronchitis J40 ; LLQ pain R10.32 and BMI 50.0-59.9, adult Z68.43 [place] [address] [place] [id number] [place] [address] 91037- 9511 November, Iron deficiency anemia due to chronic blood loss D50.0 [place] [address] [place] [id number] [place] [address] 52776- 7188 November, [place] [address] 20274- 8472 November, Iron deficiency anemia due to chronic blood loss D50.0 ; DM neuro manif type II E11.49 ; Menorrhagia with irregular cycle N92.1 and BMI 50.0 -59.9, adult Z68.43 [facility] [address] [address] Oct, Sore throat J02.9 and Acute nasopharyngitis J00 [facility] [address] 120[address] -8085 Oct, Left leg pain M79.605 and BMI 50.0-59.9, adult Z68.43 [facility] [place] [id number] [place] [address] 47383 -8267 Sep, Upper respiratory tract infection, unspecified type J06.9 and BMI 50.0-59.9, adult Z68.43 [place] [address] [place] [id number] [place] [address] 57813- 3184 Sep, Menorrhagia with irregular cycle N92.1 ; Sleep apnea in adult G47.30 and BMI 50.0-59.9, adult Z68.43 [place] [address] [place] [id number] [place] [address] 12430- 6102 Sep, [place] [address] [place] [id number] [place] [address] 63481- 1893 Aug, [place] [address] [place] [address]- 2883 Aug, [facility] [address] 20972- 7551 Aug, [facility] [address] 97589- 3908 Aug, LLQ pain R10.32 ; Irritable bowel syndrome with diarrhea K58.0 ; Change in bowel habits R19.4 ; Essential hypertension I10 and BMI 50.0- 59.9, adult Z68.43 [place] [address] 13175- 5144 Aug, [place] [address] 77642- 7485 Aug, [facility] [place] [address] 20445 -5421 Aug, Essential hypertension I10 and BMI 50.0-59.9, adult Z68.43 [place] [address] 45278- 3672 Aug, [place] [address] 71545- 3903 08 Aug, 2017 [facility] [place] [address] [address] [place] [id number] [place] [address] 31872 -8261 02 Aug, 2017 Allergic disorder, initial encounter T78.40XA and BMI 50.0- 59.9, adult Z68.43 [facility] [place] [address] [place] [id number] [place] [address] 20839 -4554 Jul, Other atopic dermatitis L20.89 and BMI 50.0-59.9, adult Z68.43 [place] [address] 61828- 2132 Jul, Intractable migraine without aura and without status migrainosus G43.019 and BMI 50.0-59.9, adult Z68.43 [place] [address] [place] [id number] [place] [address] 07420- 0018 Jun, 2017 DM neuro manif type II E11.49 ; Tension headache G44.209 ; Breast cancer screening Z12.31 and BMI 50.0-59.9, adult Z68.43 [facility] [address] [place] [id number] [place] [address] 81439- 8120 Jun, Tension headache G44.209 ; Breast cancer screening Z12.31 ; BMI 50.0-59.9, adult Z68.43 and DM neuro manif type II E11.49 [facility] IN [facility] [address] [place] [id number] [place] [address] 32808 -8165 Apr, Dysuria R30.0 and Acute cystitis with hematuria N30.01 [place] [address] [place] [id number] [place] [address] 31487- 8124 Apr, Hyperinsulinemia E16.1 [place] [address] 25273- 0217 Mar, Acute non-recurrent maxillary sinusitis J01.00 [place] [address] [place] [id number] [place] [address] 89752- 9196 Feb, Cellulitis of unspecified part of limb L03.119 ; Spider bite wound, accidental or unintentional, subsequent encounter T63.301D and BMI 50.0-59.9, adult Z68.43 [facility] [address] [place] [id number] [place] [address] 48467- 4964 Jan, [place] [address] [place] [id number] [place] [address] 70305- 6380 Jan, Urinary tract infection, site unspecified N39.0 [place] [address] 51696- 4253 Jan, Acute gastritis without hemorrhage, unspecified gastritis type K29.00 [facility] [address] [place] [id number] [place] [address] 77232- 3201 Dec, Pain in right leg M79.604 [place] [address] [place] [id number] [place] [address] 67417 2549 28 Dec, 2016 Hyperinsulinemia E16.1 and Pain in right leg M79.604 [place] [address] 36138 2546 27 Dec, 2016 Angioedema, initial encounter T78.3XXA [place] [address] 38373- 6596 15 Dec, 2016 Dental examination Z01.20 [place] [address] 15787- 3462 13 Dec, 2016 [place] [address] 95416- 5968 Dec, Burning with urination R30.0 and Acute cystitis with hematuria N30.01 [place] [address] 62097- 4206 Oct, [facility] [address] 84821- 2548 Sep, [place] [address] 74301- 2191 Aug, Hyperinsulinemia E16.1 [facility] [address] [place] [id number] [place] [address] 56181- 2549 Aug, [facility] [address] [place] [id number] [place] [address] 11497 2541 Jul, [facility] [address] [place] [id number] [place] [address] 80721- 2544 Jul, Chondromalacia, left knee M94.262 and Acute lateral meniscus tear of left knee, initial encounter S83.282A [place] [address] 76136- 1736 Jul, [facility] [address] 67506- 7856 Jun, Hyperinsulinemia E16.1 [facility] [address] [place] [address] 59024- 9839 Jun, Dysuria R30.0 ; Back pain M54.9 ; Acute pain of left knee M25.562 and Hyperinsulinemia E16.1 [facility] [address] [place] [id number] [place] [address] 92567 2546 14 Jun, 2016 Acute non-recurrent maxillary sinusitis J01.00 [facility] [address] [place] [id number] [place] [address] 53048- 4386 Jun, Dysuria R30.0 [facility] [address] 20746- 3676 Jun, Dysuria R30.0 [facility] [address] [place] [id number] [place] [address] 90612- 0016 Jun, [facility] [address] 58890- 4272 May, Dysuria R30.0 and Acute cystitis with hematuria N30.01 [facility] [address] [place] [id number] [place] [address] 05171- 0123 May, Hyperinsulinemia E16.1 [facility] [address] [place] [id number] [place] [address] 33869- 2452 May, [facility] [address] [place] [id number] [place] [address] 58429- 0411 May, Sore throat J02.9 [facility] [address] [place] [id number] [place] [address] 35538- 2542 May, [facility] [address] [place] [id number] [place] [address] 88139- 2054 08 Mar, 2016 Hyperinsulinemia E16.1 [facility] [address] [place] [id number] [place] [address] 09789- 5456 Jan, Hyperinsulinemia E16.1 [facility] [address] [place] [id number] [place] [address] 20936- 8924 Dec, DM neuro manif type II E11.49 [facility] [address] [place] [id number] [place] [address] 78214- 2595 November, Hyperinsulinemia E16.1 and Hypertension I10 [facility] [address] [place] [id number] [place] [address] 67846- 1591 Oct, [facility] [address] 26030- 5528 Oct, Hyperinsulinemia E16.1 [facility] [address] 43658- 7821 Oct, Pain, unspecified R52 [facility] [address] 01424- 1275 Oct, Pain in right foot M79.671 and Hyperinsulinemia E16.1 [facility] [address] [place] [id number] [place] [address] 78819- 1356 Oct, Hyperinsulinemia E16.1 [facility] [address] 80919- 4938 Oct, Hyperinsulinemia E16.1 [facility] [address] [place] [id number] [place] [address] 50391- 3558 17 Aug, 2015 Hypertension I10 and Viral illness B34.9 [facility] [address] [place] [id number] [place] [address] 87247- 1517 May, Back pain M54.9 [facility] [address] [place] [id number] [place] [address] 17773- 5474 Oct, [facility] [address] [place] [id number] [place] [address] 57409- 2704 Oct, [facility] [address] [place] [id number] [place] [address] 80605- 6834 Sep, [facility] [address] [place] [id number] [place] [address] 80903- 5360 Sep, [facility] [address] 80338- 4820 Sep, 2014 [facility] [place] [facility] [address] [id number] [place] [address]- 1495 Sep, 2014 [facility] [place] [facility] [address] [id number] [place] [address]- 5185 Sep, 2014 [facility] [place] [facility] [address] [id number] [place] [address]- 2125 Sep, 2014 [facility] [place] [facility] [address] [id number] [place] [address]- 7779 Sep, 2014 [facility] [place] [facility] [address] [id number] [place] [address]- 7191 Sep, 2014 [facility] [place] [facility] [address] [id number] [place] [address]- 9577 Sep, 2014 [facility] [place] [facility] [address] [id number] [place] [address]- 5830 Sep, 2014 [facility] [place] [facility] [address] [id number] [place] [address]- 9082 Sep, 2014 [facility] [place] [facility] [address] [id number] [place] [address]- 4052 Sep, 2014 [facility] [place] [facility] [address] [id number] [place] [address]- 6508 Mar, [facility] [place] [facility] [address] [id number] [place] [address]- 7326 Mar, [facility] [place] [facility] [address] [id number] [place] [address]- 6759 Feb, [facility] [place] [facility] [address] [id number] [place] [address]- 3733 Feb, [facility] [place] [facility] [address] [id number] [place] [address]- 2889 Feb, [facility] [place] [facility] [address] [id number] [place] [address]- 5018 Feb, [facility] [place] [facility] [address] [id number] [place] [address]- 8616 Dec, [facility] [place] [facility] [address] [id number] [place] [address]- 6008 Dec, [facility] [place] [facility] [address] [id number] [place] [address]- 2262 Dec, [facility] [place] [facility] [address] [id number] [place] [address]- 1483 Dec, [facility] [place] [facility] [address] [id number] [place] [address]- 7056 Dec, [facility] [place] [facility] [address] [id number] [place] [address]- 9997 Dec, [facility] [place] [facility] [address] [id number] [place] [address]- 1950 Dec, [facility] [place] [facility] [address] [id number] [place] [address]- 8305 Sep, [facility] [place] [facility] [address] [id number] [place] [address]- 0120 Sep, [facility] [place] [facility] [address] [id number] [place] [address]- 9184 Sep, [facility] [place] [facility] [address] [id number] [place] [address]- 3533 Sep, [facility] [place] [facility] [address] [id number] [place] [address]- 4377 Sep, [facility] [place] [facility] [address] [id number] [place] [address]- 7650 Sep, [facility] [place] [facility] [address] [id number] [place] [address]- 6296 Sep, [facility] [place] [facility] [address] [id number] [place] 0607 Sep, [facility] [place] [facility] [address] [id number] [place] [address]- 7621 Jul, [facility] [place] [facility] [address] [id number] [place] [address]- 3062 Jul, [facility] [place] [facility] [address] [id number] [place] [address]- 7020 Jun, [facility] [place] [facility] [address] [facility] [id number] [place] [address]- 4718 Jun, [facility] [place] [facility] [address] [id number] [place] [address]- 9891 May, [facility] [place] [facility] [address] [id number] [place] [address]- 4713 May, [facility] [place] [facility] [address] [id number] [place] [address]- 9443 May, [facility] [place] [facility] [address] [id number] [place] [address]- 1513 May, [facility] [place] [facility] [address] [id number] [address]- 6911 May, [facility] [place] [facility] [address] [id number], [place] [address]- 4484 May, [facility] [place] [facility] [address] [facility] [id number], [place] [address]- 4368 May, [facility] [place] [facility] [address] [id number], [place] [address]- 3541 Apr, [facility] [place] [facility] [address] [id number], [place] [address]- 6849 Apr, [facility] [place] [facility] [address] [id number], [place] [address]- 4410 Apr, [facility] [place] [facility] [address] [id number], [place] [address]- 7970 Apr, [facility] [place] [facility] [address] [id number], [place] [address]- 0314 30 Apr, 2013 [facility] [place] [facility] [address] [id number] [place] [address]- 5137 Apr, [facility] [address] [id number] [place] [address]- 6066 Mar, [facility] [address] [id number] [place] [address]- 4906 Feb, [facility] [address] [id number] [place] [address]- 6763 Jan, [facility] [place] [facility] [address] [id number] [place] [address]- 3409 Jan, [facility] [address] [id number] [place] [address]- 7382 Jan, [facility] [address] [id number] [place] [address]- 9429 Dec, [facility] [address] [id number] [place] [address]- 8581 November, [facility] [address] [id number] [place] [address]- 4678 November, [facility] [address] [id number] [place] [address]- 1906 November, [facility] [address] [facility] [id number] [place] [address]- 2554 November, [facility] [address] [id number] [place] [address]- 4904 Oct, [facility] [address] [id number] [place] [address]- 7316 Aug, [facility] [place] [facility] [address] [id number] [place] [address]- 8838 Aug, [facility] [place] [facility] [address] [id number] [place] [address]- 2546 Aug, [facility] [place] [facility] [address] [id number] [place] [address]- 3953 Aug, [facility] [place] [facility] [address] [id number] [place] [address]- 0462 Aug, [facility] [place] [facility] [address] [id number] [place] [address]- 2647 Aug, [facility] [place] [facility] [address] [facility] [id number] [place] [address]- 9902 Jul, [facility] [place] [facility] [address] [id number] [place] [address]- 7166 May, [facility] [place] [facility] [address] [id number] [place] [address]- 1970 May, [facility] [place] [facility] [address] [id number] [place] [address]- 2902 May, [facility] [place] [facility] [address] [facility] [id number] [place] [address]- 2781 May, [facility] [place] [facility] [address] [facility] [id number], [place] [address]- 1657 May, [facility] [place] [facility] [address] [facility] [id number] [place] [address]- 1679 May, [facility] [place] [facility] [address] [facility] [id number], [place] [address]- 7893 May, [facility] [place] [facility] [address] [id number], [place] [address]- 6119 Apr, [facility] [place] [facility] [address] [id number], [place] [address]- 1054 Apr, [facility] [place] [facility] [address] [facility] [id number] [place] [address]- 7386 Apr, [facility] [place] [facility] [address] [id number], [place] [address]- 1333 Apr, [facility] [place] [facility] [address] [facility] [id number], [place] [address]- 0347 Apr, [facility] [place] [facility] [address] [id number] [place] [address]- 3806 Sep, [facility] [place] [facility] [address] [id number] [place] [address]- 3306 24 Aug, 2011 [facility] [place] [facility] [address] [id number] [place] [address] 2546 16 Aug, 2011 [facility] [place] [facility] [address] [id number] [place] [address] 2546 Aug, [facility] [place] [facility] [address] [id number] [place] [address] 2546 Aug, [facility] [place] [facility] [id number] [place] [address], [place] [address]- 0171 Aug, [facility] [place] [facility] [address] [facility] [id number] [place] [address]- 7790 Jul, [facility] [place] [facility] [address] [facility] [id number] [place] [address]- 1035 Jul, [facility] [place] [facility] [address] [facility] [id number] [place] [address]- 9587 Jul, [facility] [place] [facility] [id number] [place] [address]- 9264 Jun, [facility] [place] [facility] [address] [facility] [id number] [place] [address]- 4230 Jun, [facility] [place] [facility] [address] [facility] [id number] [place] [address] 2546 Jun, [facility] [place] [facility] [address] [facility] [id number] [place] [address] 2544 May, [facility] [place] [facility] [address] [facility] [id number] [place] [address]- 9886 15 Apr, 2011 [facility] [place] [facility] [address] [facility] [id number] [place] [address] 12 Apr, 2011 [facility] [place] [facility] [address] [facility] [id number] [place] [address] Apr, [facility] [address] [facility] [id number] [place] [id number] Apr, IMMUNIZATIONS No Known Immunizations SOCIAL HISTORY Never Assessed REASON FOR VISIT Orders from results PLAN OF CARE VITAL SIGNS MEDICATIONS Medication Instructions Dosage Frequency Start Date End Date Duration Status Protonix 40 MG Orally Once a day 1 tablet 24h Aug, 30 days Active RESULTS No Results PROCEDURES No Known procedures INSTRUCTIONS MEDICATIONS ADMINISTERED No Known Medications MEDICAL (GENERAL) HISTORY Type Description Date Medical History hypertension Medical History Sleep apnea in adult Surgical History x 3 Surgical History cholecystectomy Surgical History Chemical Stress Test, EKG, Echo 05/2016 Hospitalization History surgeries Hospitalization History UTI VC 05/2016
--- OUTSIDE RECORDS SUMMARY | 2018-02-08 12:46 | XMS REPORT ---
Author Author CARISA KHAN Organization [facility] Address [address] [place] [address] Care Team Providers Care Seamless Tube Drawer Name Role Phone CARISA KHAN Unavailable PROBLEMS Type Condition ICD9-CM Code ACD35-TA Code Onset Dates Condition Status SNOMED Code Problem Hyperinsulinemia E16.1 Active 72086968 Problem Tension headache G44.209 Active 718284107 Problem DM neuro manif type II E11.49 Active 26462636 Problem Iron deficiency anemia due to chronic blood loss D50.0 Active 782430794 Problem Menorrhagia with irregular cycle N92.1 Active 152448035 Problem Essential hypertension I10 Active 53616011 Problem Intractable migraine without aura and without status migrainosus G43.019 Active 413296976 Problem Sleep apnea in adult G47.30 Active 11161824 Problem Irritable bowel syndrome with diarrhea K58.0 Active 942450494 ALLERGIES No Information ENCOUNTERS Encounter Location Date Diagnosis [place] [id number] [place] [address] 60189- 7557 Jan, Pneumonia of left lung due to infectious organism, unspecified part of lung J18.9 [place] [id number] [place] [address] 41431- 4040 Dec, Pneumonia due to Mycoplasma pneumoniae, unspecified laterality, unspecified part of lung J15.7 and BMI 50.0-59.9, adult Z68.43 [place] [address] [place] [id number] [place] [address] 32400- 6778 Dec, [place] [address] 8[address]15- 5567 Dec, Bronchitis J40 and BMI 50.0-59.9, adult Z68.43 [place] [address] 93971- 4410 November, Bronchitis J40 ; LLQ pain R10.32 and BMI 50.0-59.9, adult Z68.43 [place] [address] [place] [id number] [place] [address] 83198- 9877 November, Iron deficiency anemia due to chronic blood loss D50.0 [place] [address] [place] [id number] [place] [address] 21242- 0767 November, [place] [address] 42562- 1089 November, Iron deficiency anemia due to chronic blood loss D50.0 ; DM neuro manif type II E11.49 ; Menorrhagia with irregular cycle N92.1 and BMI 50.0 -59.9, adult Z68.43 [facility] [address] [address] Oct, Sore throat J02.9 and Acute nasopharyngitis J00 [facility] [address] 94[address] -4225 Oct, Left leg pain M79.605 and BMI 50.0-59.9, adult Z68.43 [facility] [place] [id number] [place] [address] 42429 -0303 Sep, Upper respiratory tract infection, unspecified type J06.9 and BMI 50.0-59.9, adult Z68.43 [place] [address] [place] [id number] [place] [address] 22584- 0904 Sep, Menorrhagia with irregular cycle N92.1 ; Sleep apnea in adult G47.30 and BMI 50.0-59.9, adult Z68.43 [place] [address] [place] [id number] [place] [address] 62066- 1535 Sep, [place] [address] [place] [id number] [place] [address] 73188- 2445 Aug, [place] [address] [place] [address]- 4834 Aug, [facility] [address] 81331- 2704 Aug, [facility] [address] 04250- 3226 Aug, LLQ pain R10.32 ; Irritable bowel syndrome with diarrhea K58.0 ; Change in bowel habits R19.4 ; Essential hypertension I10 and BMI 50.0- 59.9, adult Z68.43 [place] [address] 91998- 0870 Aug, [place] [address] 13156- 9292 Aug, [facility] [place] [address] 14631 -1808 Aug, Essential hypertension I10 and BMI 50.0-59.9, adult Z68.43 [place] [address] 93653- 3549 Aug, [place] [address] 77522- 5855 08 Aug, 2017 [facility] [place] [address] [place] [id number] [place] [address] 30500 -8270 02 Aug, 2017 Allergic disorder, initial encounter T78.40XA and BMI 50.0- 59.9, adult Z68.43 [facility] [place] [address] [address] [place] [id number] [place] [address] 99841 -7882 Jul, Other atopic dermatitis L20.89 and BMI 50.0-59.9, adult Z68.43 [place] [address] 43816- 7962 Jul, Intractable migraine without aura and without status migrainosus G43.019 and BMI 50.0-59.9, adult Z68.43 [place] [address] [place] [id number] [place] [address] 41038- 0720 Jun, 2017 DM neuro manif type II E11.49 ; Tension headache G44.209 ; Breast cancer screening Z12.31 and BMI 50.0-59.9, adult Z68.43 [facility] [address] [place] [id number] [place] [address] 57283- 8344 Jun, Tension headache G44.209 ; Breast cancer screening Z12.31 ; BMI 50.0-59.9, adult Z68.43 and DM neuro manif type II E11.49 [facility] [address] [place] [id number] [place] [address] 55460 -1754 Apr, Dysuria R30.0 and Acute cystitis with hematuria N30.01 [place] [address] [place] [id number] [place] [address] 90351- 7829 Apr, Hyperinsulinemia E16.1 [place] [address] 29992- 6896 Mar, Acute non-recurrent maxillary sinusitis J01.00 [place] [address] [place] [id number] [place] [address] 73074- 2115 Feb, Cellulitis of unspecified part of limb L03.119 ; Spider bite wound, accidental or unintentional, subsequent encounter T63.301D and BMI 50.0-59.9, adult Z68.43 [facility] [address] [place] [id number] [place] [address] 88559- 4172 Jan, [place] [address] [place] [id number] [place] [address] 48092- 7967 Jan, Urinary tract infection, site unspecified N39.0 [place] [address] 80077- 0882 Jan, Acute gastritis without hemorrhage, unspecified gastritis type K29.00 [facility] [address] [place] [id number] [place] [address] 80313- 3844 Dec, Pain in right leg M79.604 [place] [address] [place] [id number] [place] [address] 22265 2548 28 Dec, 2016 Hyperinsulinemia E16.1 and Pain in right leg M79.604 [place] [address] 05414 2546 27 Dec, 2016 Angioedema, initial encounter T78.3XXA [place] [address] 47650- 7566 15 Dec, 2016 Dental examination Z01.20 [place] [address] 55774- 3751 13 Dec, 2016 [place] [address] 43516- 0871 Dec, Burning with urination R30.0 and Acute cystitis with hematuria N30.01 [place] [address] 57167- 2598 Oct, [facility] [address] 08324- 2542 Sep, [place] [address] 04686- 4269 Aug, Hyperinsulinemia E16.1 [facility] [address] [place] [id number] [place] [address] 92537- 254 Aug, [facility] [address] [place] [id number] [place] [address] 28414 2544 Jul, [facility] [address] [place] [id number] [place] [address] 26061- 2541 Jul, Chondromalacia, left knee M94.262 and Acute lateral meniscus tear of left knee, initial encounter S83.282A [place] [address] 59288- 7016 Jul, [facility] [address] 73501- 8876 Jun, Hyperinsulinemia E16.1 [facility] [address] [place] [address] 37401- 3901 Jun, Dysuria R30.0 ; Back pain M54.9 ; Acute pain of left knee M25.562 and Hyperinsulinemia E16.1 [facility] [address] [place] [id number] [place] [address] 31218 2546 14 Jun, 2016 Acute non-recurrent maxillary sinusitis J01.00 [facility] [address] [place] [id number] [place] [address] 04769- 2376 Jun, Dysuria R30.0 [facility] [address] 60917- 9056 Jun, Dysuria R30.0 [facility] [address] [place] [id number] [place] [address] 61650- 3896 Jun, [facility] [address] 27098- 1005 May, Dysuria R30.0 and Acute cystitis with hematuria N30.01 [facility] [address] [place] [id number] [place] [address] 26226- 6265 May, Hyperinsulinemia E16.1 [facility] [address] [place] [id number] [place] [address] 54435- 2820 May, [facility] [address] [place] [id number] [place] [address] 33012- 4762 May, Sore throat J02.9 [facility] [address] [place] [id number] [place] [address] 93946- 2545 May, [facility] [address] [place] [id number] [place] [address] 31347- 0003 08 Mar, 2016 Hyperinsulinemia E16.1 [facility] [address] [place] [id number] [place] [address] 23069- 8646 Jan, Hyperinsulinemia E16.1 [facility] [address] [place] [id number] [place] [address] 14100- 2761 Dec, DM neuro manif type II E11.49 [facility] [address] [place] [id number] [place] [address] 04286- 6586 November, Hyperinsulinemia E16.1 and Hypertension I10 [facility] [address] [place] [id number] [place] [address] 69758- 1560 Oct, [facility] [address] 79957- 1876 Oct, Hyperinsulinemia E16.1 [facility] [address] 49011- 8084 Oct, Pain, unspecified R52 [facility] [address] 90570- 4568 Oct, Pain in right foot M79.671 and Hyperinsulinemia E16.1 [facility] [address] [place] [id number] [place] [address] 57976- 1834 Oct, Hyperinsulinemia E16.1 [facility] [address] 17570- 9305 Oct, Hyperinsulinemia E16.1 [facility] [address] [place] [id number] [place] [address] 80217- 7841 17 Aug, 2015 Hypertension I10 and Viral illness B34.9 [facility] [address] [place] [id number] [place] [address] 75978- 0114 May, Back pain M54.9 [facility] [address] [place] [id number] [place] [address] 89153- 1183 Oct, [facility] [address] [place] [id number] [place] [address] 31609- 8020 Oct, [facility] [address] [place] [id number] [place] [address] 09003- 1109 Sep, [facility] [address] [place] [id number] [place] [address] 55334- 5432 Sep, [facility] [address] 85978- 1131 Sep, 2014 [facility] [place] [facility] [address] [id number] [place] [address]- 4807 Sep, 2014 [facility] [place] [facility] [address] [id number] [place] [address]- 8682 Sep, 2014 [facility] [place] [facility] [address] [id number] [place] [address]- 0975 Sep, 2014 [facility] [place] [facility] [address] [id number] [place] [address]- 7334 Sep, 2014 [facility] [place] [facility] [address] [id number] [place] [address]- 5328 Sep, 2014 [facility] [place] [facility] [address] [id number] [place] [address]- 9193 Sep, 2014 [facility] [place] [facility] [address] [id number] [place] [address]- 4203 Sep, 2014 [facility] [place] [facility] [address] [id number] [place] [address]- 6226 Sep, 2014 [facility] [place] [facility] [address] [id number] [place] [address]- 3411 Sep, 2014 [facility] [place] [facility] [address] [id number] [place] [address]- 4310 Mar, [facility] [place] [facility] [address] [id number] [place] [address]- 1606 Mar, [facility] [place] [facility] [address] [id number] [place] [address]- 7614 Feb, [facility] [place] [facility] [address] [id number] [place] [address]- 4037 Feb, [facility] [place] [facility] [address] [id number] [place] [address]- 5739 Feb, [facility] [place] [facility] [address] [id number] [place] [address]- 2364 Feb, [facility] [place] [facility] [address] [id number] [place] [address]- 9740 Dec, [facility] [place] [facility] [address] [id number] [place] [address]- 1123 Dec, [facility] [place] [facility] [address] [id number] [place] [address]- 7960 Dec, [facility] [place] [facility] [address] [id number] [place] [address]- 6930 Dec, [facility] [place] [facility] [address] [id number] [place] [address]- 2190 Dec, [facility] [place] [facility] [address] [id number] [place] [address]- 0513 Dec, [facility] [place] [facility] [address] [id number] [place] [address]- 2358 Dec, [facility] [place] [facility] [address] [id number] [place] [address]- 8396 Sep, [facility] [place] [facility] [address] [id number] [place] [address]- 2685 Sep, [facility] [place] [facility] [address] [id number] [place] [address]- 5477 Sep, [facility] [place] [facility] [address] [id number] [place] [address]- 6678 Sep, [facility] [place] [facility] [address] [id number] [place] [address]- 0296 Sep, [facility] [place] [facility] [address] [id number] [place] [address]- 0107 Sep, [facility] [place] [facility] [address] [id number] [place] [address]- 2526 Sep, [facility] [place] [facility] [address] [id number] [place] 3421 Sep, [facility] [place] [facility] [address] [id number] [place] [address]- 6972 Jul, [facility] [place] [facility] [address] [id number] [place] [address]- 5144 Jul, [facility] [place] [facility] [address] [id number] [place] [address]- 6192 Jun, [facility] [place] [facility] [address] [facility] [id number] [place] [address]- 2929 Jun, [facility] [place] [facility] [address] [id number] [place] [address]- 8034 May, [facility] [place] [facility] [address] [id number] [place] [address]- 1129 May, [facility] [place] [facility] [address] [id number] [place] [address]- 9107 May, [facility] [place] [facility] [address] [id number] [place] [address]- 3290 May, [facility] [place] [facility] [address] [id number] [address]- 7264 May, [facility] [place] [facility] [address] [id number], [place] [address]- 4975 May, [facility] [place] [facility] [address] [facility] [id number], [place] [address]- 6286 May, [facility] [place] [facility] [address] [id number], [place] [address]- 7154 Apr, [facility] [place] [facility] [address] [id number], [place] [address]- 8943 Apr, [facility] [place] [facility] [address] [id number], [place] [address]- 6114 Apr, [facility] [place] [facility] [address] [id number], [place] [address]- 3531 Apr, [facility] [place] [facility] [address] [id number], [place] [address]- 7017 30 Apr, 2013 [facility] [place] [facility] [address] [id number] [place] [address]- 0922 Apr, [facility] [address] [id number] [place] [address]- 9461 Mar, [facility] [address] [id number] [place] [address]- 4706 Feb, [facility] [address] [id number] [place] [address]- 5034 Jan, [facility] [place] [facility] [address] [id number] [place] [address]- 8551 Jan, [facility] [address] [id number] [place] [address]- 7584 Jan, [facility] [address] [id number] [place] [address]- 3022 Dec, [facility] [address] [id number] [place] [address]- 7190 November, [facility] [address] [id number] [place] [address]- 6721 November, [facility] [address] [id number] [place] [address]- 2019 November, [facility] [address] [facility] [id number] [place] [address]- 2001 November, [facility] [address] [id number] [place] [address]- 5876 Oct, [facility] [address] [id number] [place] [address]- 0049 Aug, [facility] [place] [facility] [address] [id number] [place] [address]- 1788 Aug, [facility] [place] [facility] [address] [id number] [place] [address]- 2546 Aug, [facility] [place] [facility] [address] [id number] [place] [address]- 5793 Aug, [facility] [place] [facility] [address] [id number] [place] [address]- 7739 Aug, [facility] [place] [facility] [address] [id number] [place] [address]- 9339 Aug, [facility] [place] [facility] [address] [facility] [id number] [place] [address]- 3099 Jul, [facility] [place] [facility] [address] [id number] [place] [address]- 5969 May, [facility] [place] [facility] [address] [id number] [place] [address]- 5863 May, [facility] [place] [facility] [address] [id number] [place] [address]- 1879 May, [facility] [place] [facility] [address] [facility] [id number] [place] [address]- 1172 May, [facility] [place] [facility] [address] [facility] [id number], [place] [address]- 0964 May, [facility] [place] [facility] [address] [facility] [id number] [place] [address]- 2184 May, [facility] [place] [facility] [address] [facility] [id number], [place] [address]- 9508 May, [facility] [place] [facility] [address] [id number], [place] [address]- 6979 Apr, [facility] [place] [facility] [address] [id number], [place] [address]- 9735 Apr, [facility] [place] [facility] [address] [facility] [id number] [place] [address]- 7173 Apr, [facility] [place] [facility] [address] [id number], [place] [address]- 8102 Apr, [facility] [place] [facility] [address] [facility] [id number], [place] [address]- 5617 Apr, [facility] [place] [facility] [address] [id number] [place] [address]- 0587 Sep, [facility] [place] [facility] [address] [id number] [place] [address]- 1376 24 Aug, 2011 [facility] [place] [facility] [address] [id number] [place] [address] 2546 16 Aug, 2011 [facility] [place] [facility] [address] [id number] [place] [address] 2546 Aug, [facility] [place] [facility] [address] [id number] [place] [address] 2546 Aug, [facility] [place] [facility] [id number] [place] [address], [place] [address]- 3047 Aug, [facility] [place] [facility] [address] [facility] [id number] [place] [address]- 7434 Jul, [facility] [place] [facility] [address] [facility] [id number] [place] [address]- 7042 Jul, [facility] [place] [facility] [address] [facility] [id number] [place] [address]- 3190 Jul, [facility] [place] [facility] [address] [place] [address]- 5361 Jun, [facility] [place] [facility] [address] [facility] [id number] [place] [address]- 7134 Jun, [facility] [place] [facility] [address] [facility] [id number] [place] [address] 2546 Jun, [facility] [place] [facility] [address] [facility] [id number] [place] [address] 254 May, [facility] [place] [facility] [address] [facility] [id number] [place] [address]- 8791 15 Apr, 2011 [facility] [place] [facility] [address] [facility] [id number] [place] [address] 2546 12 Apr, 2011 [facility] [place] [facility] [address] [facility] [id number] [place] [address]- 4829 Apr, [facility] [address] [facility] [id number] [place] [address] 1427 Apr, IMMUNIZATIONS No Known Immunizations SOCIAL HISTORY Never Assessed REASON FOR VISIT PLAN OF CARE VITAL SIGNS MEDICATIONS Unknown [...]
--- OUTSIDE RECORDS SUMMARY | 2018-02-08 12:47 | XMS REPORT ---
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30 Active 69100574 Problem Irritable bowel syndrome with diarrhea K58.0 Active 938324855 ALLERGIES No Information ENCOUNTERS Encounter Location Date Diagnosis [place] [address] [id number] [place] [address] 26492- 4320 Jan, Pneumonia of left lung due to infectious organism, unspecified part of lung J18.9 [place] [id number] [place] [address] 53373- 1530 Dec, Pneumonia due to Mycoplasma pneumoniae, unspecified laterality, unspecified part of lung J15.7 and BMI 50.0-59.9, adult Z68.43 [place] [id number] [place] [address] 81221- 8493 Dec, [place] [address] 96996- 2433 Dec, Bronchitis J40 and BMI 50.0-59.9, adult Z68.43 [place] [address] 31638- 5097 November, Bronchitis J40 ; LLQ pain R10.32 and BMI 50.0-59.9, adult Z68.43 [place] [id number] [place] [address] 54728- 5717 November, Iron deficiency anemia due to chronic blood loss D50.0 [place] [id number] [place] [address] 56447- 8801 November, [place] [address] 75256- 5363 November, Iron deficiency anemia due to chronic blood loss D50.0 ; DM neuro manif type II E11.49 ; Menorrhagia with irregular cycle N92.1 and BMI 50.0 -59.9, adult Z68.43 [facility] [address] [address] -[address]140 Oct, Sore throat J02.9 and Acute nasopharyngitis J00 [facility] [address] 19390 -1648 Oct, Left leg pain M79.605 and BMI 50.0-59.9, adult Z68.43 [facility] [place] [id number] [place] [address] 00626 -3447 Sep, Upper respiratory tract infection, unspecified type J06.9 and BMI 50.0-59.9, adult Z68.43 [place] [id number] [place] [address] 30284- 6649 Sep, Menorrhagia with irregular cycle N92.1 ; Sleep apnea in adult G47.30 and BMI 50.0-59.9, adult Z68.43 [place] [id number] [place] [address] 28965- 6006 Sep, [place] [id number] [place] [address] 87430- 3555 Aug, [place] [address] [place] [address]- 0687 Aug, [facility] [address] 27036- 3085 Aug, [facility] [address] 39939- 6649 Aug, LLQ pain R10.32 ; Irritable bowel syndrome with diarrhea K58.0 ; Change in bowel habits R19.4 ; Essential hypertension I10 and BMI 50.0- 59.9, adult Z68.43 [place] [address] 69872- 2029 Aug, [place] [address] 74726- 6511 Aug, [facility] [place] [address] 34825 -9091 Aug, Essential hypertension I10 and BMI 50.0-59.9, adult Z68.43 [place] [address] 10823- 3185 Aug, [place] [address] 75224- 8846 08 Aug, 2017 [facility] [place] [id number] [place] [address] 70163 -9161 02 Aug, 2017 Allergic disorder, initial encounter T78.40XA and BMI 50.0- 59.9, adult Z68.43 [facility] [place] [id number] [place] [address] 65810 -7999 Jul, Other atopic dermatitis L20.89 and BMI 50.0-59.9, adult Z68.43 [place] [address] 27414- 7740 Jul, Intractable migraine without aura and without status migrainosus G43.019 and BMI 50.0-59.9, adult Z68.43 [place] [id number] [place] [address] 73114- 0848 Jun, 2017 DM neuro manif type II E11.49 ; Tension headache G44.209 ; Breast cancer screening Z12.31 and BMI 50.0-59.9, adult Z68.43 [facility] [id number] [place] [address] 44335- 4458 Jun, Tension headache G44.209 ; Breast cancer screening Z12.31 ; BMI 50.0-59.9, adult Z68.43 and DM neuro manif type II E11.49 [facility] IN [facility] [id number] [place] [address] 09750 -2922 Apr, Dysuria R30.0 and Acute cystitis with hematuria N30.01 [place] [id number] [place] [address] 70844- 7000 Apr, Hyperinsulinemia E16.1 [place] [address] 01684- 7374 Mar, Acute non-recurrent maxillary sinusitis J01.00 [place] [id number] [place] [address] 21531- 2062 Feb, Cellulitis of unspecified part of limb L03.119 ; Spider bite wound, accidental or unintentional, subsequent encounter T63.301D and BMI 50.0-59.9, adult Z68.43 [facility] [id number] [place] [address] 88848- 3521 Jan, [place] [id number] [place] [address] 16012- 9709 Jan, Urinary tract infection, site unspecified N39.0 [place] [address] 98355- 7390 Jan, Acute gastritis without hemorrhage, unspecified gastritis type K29.00 [facility] [id number] [place] [address] 01469- 8937 Dec, Pain in right leg M79.604 [place] [id number] [place] [address] 08087 2541 28 Dec, 2016 Hyperinsulinemia E16.1 and Pain in right leg M79.604 [place] [address] 86975 2546 27 Dec, 2016 Angioedema, initial encounter T78.3XXA [place] [address] 02950- 7796 15 Dec, 2016 Dental examination Z01.20 [place] [address] 70766- 7351 13 Dec, 2016 [place] [address] 22975- 3570 Dec, Burning with urination R30.0 and Acute cystitis with hematuria N30.01 [place] [address] 40964- 1859 Oct, [facility] [address] 82275- 2541 Sep, [place] [address] 11249- 9436 Aug, Hyperinsulinemia E16.1 [facility] [id number] [place] [address] 85268- 2547 Aug, [facility] [id number] [place] [address] 07264 2549 Jul, [facility] [id number] [place] [address] 03636- 2542 Jul, Chondromalacia, left knee M94.262 and Acute lateral meniscus tear of left knee, initial encounter S83.282A [place] [address] 35845- 9636 Jul, [facility] [address] 36910- 0586 Jun, Hyperinsulinemia E16.1 [facility] [address] [place] [address] 94160- 4258 Jun, Dysuria R30.0 ; Back pain M54.9 ; Acute pain of left knee M25.562 and Hyperinsulinemia E16.1 [facility] [id number] [place] [address] 62454 2546 14 Jun, 2016 Acute non-recurrent maxillary sinusitis J01.00 [facility] [id number] [place] [address] 15140- 3896 Jun, Dysuria R30.0 [facility] [address] 04703- 4586 Jun, Dysuria R30.0 [facility] [id number] [place] [address] 12399- 1306 Jun, [facility] [address] 33719- 8475 May, Dysuria R30.0 and Acute cystitis with hematuria N30.01 [facility] [id number] [place] [address] 59772- 8155 May, Hyperinsulinemia E16.1 [facility] [id number] [place] [address] 40639- 9309 May, [facility] [id number] [place] [address] 44699- 4429 May, Sore throat J02.9 [facility] [id number] [place] [address] 32444- 2540 May, [facility] [id number] [place] [address] 78404- 5426 08 Mar, 2016 Hyperinsulinemia E16.1 [facility] [id number] [place] [address] 38018- 2046 Jan, Hyperinsulinemia E16.1 [facility] [id number] [place] [address] 03446- 6785 Dec, DM neuro manif type II E11.49 [facility] [id number] [place] [address] 34787- 6992 November, Hyperinsulinemia E16.1 and Hypertension I10 [facility] [id number] [place] [address] 38562- 2481 Oct, [facility] [address] 37288- 1754 Oct, Hyperinsulinemia E16.1 [facility] [address] 57156- 1099 Oct, Pain, unspecified R52 [facility] [address] 84338- 7828 Oct, Pain in right foot M79.671 and Hyperinsulinemia E16.1 [facility] [id number] [place] [address] 61220- 3970 Oct, Hyperinsulinemia E16.1 [facility] [address] 24574- 0300 Oct, Hyperinsulinemia E16.1 [facility] [id number] [place] [address] 05006- 0122 17 Aug, 2015 Hypertension I10 and Viral illness B34.9 [facility] [id number] [place] [address] 91131- 7275 May, Back pain M54.9 [facility] [id number] [place] [address] 60904- 1860 Oct, [facility] [id number] [place] [address] 17934- 8977 Oct, [facility] [id number] [place] [address] 13110- 0201 Sep, [facility] [id number] [place] [address] 37770- 1964 Sep, [facility] [address] 02727- 9792 Sep, 2014 [facility] [place] [facility] [address] [id number] [place] [address]- 1366 Sep, 2014 [facility] [place] [facility] [address] [id number] [place] [address]- 7468 Sep, 2014 [facility] [place] [facility] [address] [id number] [place] [address]- 1373 Sep, 2014 [facility] [place] [facility] [address] [id number] [place] [address]- 7248 Sep, 2014 [facility] [place] [facility] [address] [id number] [place] [address]- 9293 Sep, 2014 [facility] [place] [facility] [address] [id number] [place] [address]- 9238 Sep, 2014 [facility] [place] [facility] [address] [id number] [place] [address]- 7076 Sep, 2014 [facility] [place] [facility] [address] [id number] [place] [address]- 4996 Sep, 2014 [facility] [place] [facility] [address] [id number] [place] [address]- 0608 Sep, 2014 [facility] [place] [facility] [address] [id number] [place] [address]- 7406 Mar, [facility] [place] [facility] [address] [id number] [place] [address]- 7140 Mar, [facility] [place] [facility] [address] [id number] [place] [address]- 0522 Feb, [facility] [place] [facility] [address] [id number] [place] [address]- 9835 Feb, [facility] [place] [facility] [address] [id number] [place] [address]- 6153 Feb, [facility] [place] [facility] [address] [id number] [place] [address]- 9744 Feb, [facility] [place] [facility] [address] [id number] [place] [address]- 8725 Dec, [facility] [place] [facility] [address] [id number] [place] [address]- 6373 Dec, [facility] [place] [facility] [address] [id number] [place] [address]- 8247 Dec, [facility] [place] [facility] [address] [id number] [place] [address]- 8164 Dec, [facility] [place] [facility] [address] [id number] [place] [address]- 5177 Dec, [facility] [place] [facility] [address] [id number] [place] [address]- 4116 Dec, [facility] [place] [facility] [address] [id number] [place] [address]- 1794 Dec, [facility] [place] [facility] [address] [id number] [place] [address]- 9679 Sep, [facility] [place] [facility] [address] [id number] [place] [address]- 3921 Sep, [facility] [place] [facility] [address] [id number] [place] [address]- 5079 Sep, [facility] [place] [facility] [address] [id number] [place] [address]- 7646 Sep, [facility] [place] [facility] [address] [id number] [place] [address]- 2515 Sep, [facility] [place] [facility] [address] [id number] [place] [address]- 9052 Sep, [facility] [place] [facility] [address] [id number] [place] [address]- 5576 Sep, [facility] [place] [facility] [address] [id number] [place] 5159 Sep, [facility] [place] [facility] [address] [id number] [place] [address]- 1873 Jul, [facility] [place] [facility] [address] [id number] [place] [address]- 7179 Jul, [facility] [place] [facility] [address] [id number] [place] [address]- 6074 Jun, [facility] [place] [facility] [address] [facility] [id number] [place] [address]- 6755 Jun, [facility] [place] [facility] [address] [id number] [place] [address]- 7344 May, [facility] [place] [facility] [address] [id number] [place] [address]- 8091 May, [facility] [place] [facility] [address] [id number] [place] [address]- 5381 May, [facility] [place] [facility] [address] [id number] [place] [address]- 3037 May, [facility] [place] [facility] [address] [id number], [place] [address]- 0629 May, [facility] [place] [facility] [address] [id number], [place] [address]- 0891 May, [facility] [place] [facility] [address] [facility] [id number], [place] [address]- 0538 May, [facility] [place] [facility] [address] [id number], [place] [address]- 8573 Apr, [facility] [place] [facility] [address] [id number], [place] [address]- 7789 Apr, [facility] [place] [facility] [address] [id number], [place] [address]- 1435 Apr, [facility] [place] [facility] [address] [id number], [place] [address]- 9753 Apr, [facility] [place] [facility] [address] [id number], [place] [address]- 2266 30 Apr, 2013 [facility] [place] [facility] [address] [id number] [place] [address]- 8604 Apr, [facility] [address] [id number] [place] [address]- 6140 Mar, [facility] [address] [id number] [place] [address]- 3016 Feb, [facility] [address] [id number] [place] [address]- 8863 Jan, [facility] [place] [facility] [address] [id number] [place] [address]- 6093 Jan, [facility] [address] [id number] [place] [address]- 2949 Jan, [facility] [address] [id number] [place] [address]- 2707 Dec, [facility] [address] [id number] [place] [address]- 5513 November, [facility] [address] [id number] [place] [address]- 0775 November, [facility] [address] [id number] [place] [address]- 3465 November, [facility] [address] [facility] [id number] [place] [address]- 9081 November, [facility] [address] [id number] [place] [address]- 3070 Oct, [facility] [address] [id number] [place] [address]- 9029 Aug, [facility] [place] [facility] [address] [id number] [place] [address]- 0433 Aug, [facility] [place] [facility] [address] [id number] [place] [address]- 2546 Aug, [facility] [place] [facility] [address] [id number] [place] [address]- 4226 Aug, [facility] [place] [facility] [address] [id number] [place] [address]- 8209 Aug, [facility] [place] [facility] [address] [id number] [place] [address]- 8271 Aug, [facility] [place] [facility] [address] [facility] [id number] [place] [address]- 7942 Jul, [facility] [place] [facility] [address] [id number] [place] [address]- 9945 May, [facility] [place] [facility] [address] [id number] [place] [address]- 8915 May, [facility] [place] [facility] [address] [id number] [place] [address]- 7434 May, [facility] [place] [facility] [address] [facility] [id number] [place] [address]- 1390 May, [facility] [place] [facility] [address] [facility] [id number], [place] [address]- 7332 May, [facility] [place] [facility] [address] [facility] [id number] [place] [address]- 3783 May, [facility] [place] [facility] [address] [facility] [id number], [place] [address]- 8617 May, [facility] [place] [facility] [address] [id number], [place] [address]- 2870 Apr, [facility] [place] [facility] [address] [id number], [place] [address]- 2348 Apr, [facility] [place] [facility] [address] [facility] [id number] [place] [address]- 8175 Apr, [facility] [place] [facility] [address] [id number], [place] [address]- 0165 Apr, [facility] [place] [facility] [address] [facility] [id number], [place] [address]- 9882 Apr, [facility] [place] [facility] [address] [id number] [place] [address]- 9635 Sep, [facility] [place] [facility] [address] [id number] [place] [address]- 4186 24 Aug, 2011 [facility] [place] [facility] [address] [id number] [place] [address] 2546 16 Aug, 2011 [facility] [place] [facility] [address] [id number] [place] [address] 2546 Aug, [facility] [place] [facility] [address] [id number] [place] [address] 2546 Aug, [facility] [place] [facility] [address] [id number] [place] [address], [place] [address]- 7831 Aug, [facility] [place] [facility] [address] [facility] [id number] [place] [address]- 6297 Jul, [facility] [place] [facility] [address] [facility] [id number] [place] [address]- 5761 Jul, [facility] [place] [facility] [address] [facility] [id number] [place] [address]- 7721 Jul, [facility] [place] [facility] [id number] [place] [address]- 3945 Jun, [facility] [place] [facility] [address] [facility] [id number] [place] [address]- 6810 Jun, [facility] [place] [facility] [address] [facility] [id number] [place] [address] 2546 Jun, [facility] [place] [facility] [address] [facility] [id number] [place] [address] 2548 May, [facility] [place] [facility] [address] [facility] [id number] [place] [address]- 9714 15 Apr, 2011 [facility] [place] [facility] [address] [facility] [id number] [place] [address] 2546 12 Apr, 2011 [facility] [place] [facility] [address] [facility] [id number] [place] [address]- 3926 Apr, [facility] [address] [facility] [id number] [place] [address] 7756 Apr, IMMUNIZATIONS No Known Immunizations SOCIAL HISTORY Never Assessed REASON FOR VISIT ER f/u Request PLAN OF CARE VITAL SIGNS MEDICATIONS Unknown [...]
--- OUTSIDE RECORDS SUMMARY | 2018-02-08 12:47 | XMS REPORT ---
Author Author CARISA KHAN Organization [facility] Address [address] [place] [address] Care Team Providers Care Brass Wind Instrument Maker Name Role Phone CARISA KHAN Unavailable PROBLEMS Type Condition ICD9-CM Code [id number] Code Onset Dates Condition Status SNOMED Code Problem Hyperinsulinemia E16.1 Active 70542230 Problem Tension headache G44.209 Active 425271495 Problem DM neuro manif type II E11.49 Active 64799066 Problem Iron deficiency anemia due to chronic blood loss D50.0 Active 494955859 Problem Menorrhagia with irregular cycle N92.1 Active 295961514 Problem Essential hypertension I10 Active 59771985 Problem Intractable migraine without aura and without status migrainosus G43.019 Active 784410732 Problem Sleep apnea in adult G47.30 Active 71980279 Problem Irritable bowel syndrome with diarrhea K58.0 Active 821717214 ALLERGIES No Information ENCOUNTERS Encounter Location Date Diagnosis [place] [id number] [place] [address] 61672- 5811 Jan, Pneumonia of left lung due to infectious organism, unspecified part of lung J18.9 [place] [id number] [place] [address] 81478- 9551 Dec, Pneumonia due to Mycoplasma pneumoniae, unspecified laterality, unspecified part of lung J15.7 and BMI 50.0-59.9, adult Z68.43 [place] [id number] [place] [address] 80892- 1084 Dec, [place] [address] 03537- 6667 Dec, Bronchitis J40 and BMI 50.0-59.9, adult Z68.43 [place] [address] 72927- 0581 November, Bronchitis J40 ; LLQ pain R10.32 and BMI 50.0-59.9, adult Z68.43 [place] [id number] [place] [address] 94078- 1976 November, Iron deficiency anemia due to chronic blood loss D50.0 [place] [id number] [place] [address] 60753- 5208 November, [place] [address] 97571- 7321 November, Iron deficiency anemia due to chronic blood loss D50.0 ; DM neuro manif type II E11.49 ; Menorrhagia with irregular cycle N92.1 and BMI 50.0 -59.9, adult Z68.43 [facility] [address] [address] -9802 Oct, Sore throat J02.9 and Acute nasopharyngitis J00 [facility] [address] 67469 -0693 Oct, Left leg pain M79.605 and BMI 50.0-59.9, adult Z68.43 [facility] [place] [id number] [place] [address] 28543 -6665 Sep, Upper respiratory tract infection, unspecified type J06.9 and BMI 50.0-59.9, adult Z68.43 [place] [id number] [place] [address] 02616- 9583 Sep, Menorrhagia with irregular cycle N92.1 ; Sleep apnea in adult G47.30 and BMI 50.0-59.9, adult Z68.43 [place] [id number] [place] [address] 77452- 4732 Sep, [place] [id number] [place] [address] 78205- 5071 Aug, [place] [address] [place] [address]- 4448 Aug, [facility] [address] 75228- 0369 Aug, [facility] [address] 06664- 3071 Aug, LLQ pain R10.32 ; Irritable bowel syndrome with diarrhea K58.0 ; Change in bowel habits R19.4 ; Essential hypertension I10 and BMI 50.0- 59.9, adult Z68.43 [place] [address] 60153- 4725 Aug, [place] [address] 86637- 3243 Aug, [facility] [place] [address] 08643 -6492 Aug, Essential hypertension I10 and BMI 50.0-59.9, adult Z68.43 [place] [address] 25549- 8245 Aug, [place] [address] 36003- 5568 08 Aug, 2017 [facility] [place] [id number] [place] [address] 16826 -2289 02 Aug, 2017 Allergic disorder, initial encounter T78.40XA and BMI 50.0- 59.9, adult Z68.43 [facility] [place] [id number] [place] [address] 50485 -7504 Jul, Other atopic dermatitis L20.89 and BMI 50.0-59.9, adult Z68.43 [place] [address] 47182- 0607 Jul, Intractable migraine without aura and without status migrainosus G43.019 and BMI 50.0-59.9, adult Z68.43 [place] [id number] [place] [address] 86977- 9732 Jun, 2017 DM neuro manif type II E11.49 ; Tension headache G44.209 ; Breast cancer screening Z12.31 and BMI 50.0-59.9, adult Z68.43 [facility] [id number] [place] [address] 38833- 7207 Jun, Tension headache G44.209 ; Breast cancer screening Z12.31 ; BMI 50.0-59.9, adult Z68.43 and DM neuro manif type II E11.49 [facility] [id number] [place] [address] 99204 -8263 Apr, Dysuria R30.0 and Acute cystitis with hematuria N30.01 [place] [id number] [place] [address] 87179- 8179 Apr, Hyperinsulinemia E16.1 [place] [address] 91351- 7936 Mar, Acute non-recurrent maxillary sinusitis J01.00 [place] [id number] [place] [address] 43228- 4497 Feb, Cellulitis of unspecified part of limb L03.119 ; Spider bite wound, accidental or unintentional, subsequent encounter T63.301D and BMI 50.0-59.9, adult Z68.43 [facility] [id number] [place] [address] 70038- 3867 Jan, [place] [id number] [place] [address] 16462- 1039 Jan, Urinary tract infection, site unspecified N39.0 [place] [address] 46198- 6076 Jan, Acute gastritis without hemorrhage, unspecified gastritis type K29.00 [facility] [id number] [place] [address] 04510- 1898 Dec, Pain in right leg M79.604 [place] [id number] [place] [address] 94121 2543 28 Dec, 2016 Hyperinsulinemia E16.1 and Pain in right leg M79.604 [place] [address] 66475 2546 27 Dec, 2016 Angioedema, initial encounter T78.3XXA [place] [address] 38605- 9456 15 Dec, 2016 Dental examination Z01.20 [place] [address] 81987- 7247 13 Dec, 2016 [place] [address] 20853- 0832 Dec, Burning with urination R30.0 and Acute cystitis with hematuria N30.01 [place] [address] 03216- 6283 Oct, [facility] [address] 84904- 2540 Sep, [place] [address] 79066- 8355 Aug, Hyperinsulinemia E16.1 [facility] [id number] [place] [address] 56600- 2549 Aug, [facility] [id number] [place] [address] 56805 2547 Jul, [facility] [id number] [place] [address] 08230- 2547 Jul, Chondromalacia, left knee M94.262 and Acute lateral meniscus tear of left knee, initial encounter S83.282A [place] [address] 59554- 1236 Jul, [facility] [address] 48338- 0776 Jun, Hyperinsulinemia E16.1 [facility] [address] [place] [address] 44897- 3917 Jun, Dysuria R30.0 ; Back pain M54.9 ; Acute pain of left knee M25.562 and Hyperinsulinemia E16.1 [facility] [id number] [place] [address] 14011 2546 14 Jun, 2016 Acute non-recurrent maxillary sinusitis J01.00 [facility] [id number] [place] [address] 30846- 8266 Jun, Dysuria R30.0 [facility] [address] 74377- 7336 Jun, Dysuria R30.0 [facility] [id number] [place] [address] 24526- 7496 Jun, [facility] [address] 16160- 9596 May, Dysuria R30.0 and Acute cystitis with hematuria N30.01 [facility] [id number] [place] [address] 32157- 7266 May, Hyperinsulinemia E16.1 [facility] [id number] [place] [address] 67611- 1674 May, [facility] [id number] [place] [address] 24183- 6081 May, Sore throat J02.9 [facility] [id number] [place] [address] 06696- 2544 May, [facility] [id number] [place] [address] 92586- 1577 08 Mar, 2016 Hyperinsulinemia E16.1 [facility] [id number] [place] [address] 09027- 0736 Jan, Hyperinsulinemia E16.1 [facility] [id number] [place] [address] 56858- 2513 Dec, DM neuro manif type II E11.49 [facility] [id number] [place] [address] 08790- 4009 November, Hyperinsulinemia E16.1 and Hypertension I10 [facility] [id number] [place] [address] 80986- 8373 Oct, [facility] [address] 56785- 9425 Oct, Hyperinsulinemia E16.1 [facility] [address] 18513- 2405 Oct, Pain, unspecified R52 [facility] [address] 85372- 2308 Oct, Pain in right foot M79.671 and Hyperinsulinemia E16.1 [facility] [id number] [place] [address] 97164- 9763 Oct, Hyperinsulinemia E16.1 [facility] [address] 29524- 0442 Oct, Hyperinsulinemia E16.1 [facility] [id number] [place] [address] 32522- 4253 17 Aug, 2015 Hypertension I10 and Viral illness B34.9 [facility] [id number] [place] [address] 87618- 5098 May, Back pain M54.9 [facility] [id number] [place] [address] 57396- 7070 Oct, [facility] [id number] [place] [address] 25066- 0960 Oct, [facility] [id number] [place] [address] 01807- 4738 Sep, [facility] [id number] [place] [address] 94356- 6419 Sep, [facility] [address] 54846- 8069 Sep, 2014 [facility] [place] [facility] [address] [id number] [place] [address]- 4303 Sep, 2014 [facility] [place] [facility] [address] [id number] [place] [address]- 7995 Sep, 2014 [facility] [place] [facility] [address] [id number] [place] [address]- 6118 Sep, 2014 [facility] [place] [facility] [address] [id number] [place] [address]- 0244 Sep, 2014 [facility] [place] [facility] [address] [id number] [place] [address]- 9539 Sep, 2014 [facility] [place] [facility] [address] [id number] [place] [address]- 5604 Sep, 2014 [facility] [place] [facility] [address] [id number] [place] [address]- 5501 Sep, 2014 [facility] [place] [facility] [address] [id number] [place] [address]- 0400 Sep, 2014 [facility] [place] [facility] [address] [id number] [place] [address]- 0385 Sep, 2014 [facility] [place] [facility] [address] [id number] [place] [address]- 9044 Mar, [facility] [place] [facility] [address] [id number] [place] [address]- 9401 Mar, [facility] [place] [facility] [address] [id number] [place] [address]- 4165 Feb, [facility] [place] [facility] [address] [id number] [place] [address]- 1859 Feb, [facility] [place] [facility] [address] [id number] [place] [address]- 2394 Feb, [facility] [place] [facility] [address] [id number] [place] [address]- 7632 Feb, [facility] [place] [facility] [address] [id number] [place] [address]- 3398 Dec, [facility] [place] [facility] [address] [id number] [place] [address]- 6614 Dec, [facility] [place] [facility] [address] [id number] [place] [address]- 7129 Dec, [facility] [place] [facility] [address] [id number] [place] [address]- 5225 Dec, [facility] [place] [facility] [address] [id number] [place] [address]- 4539 Dec, [facility] [place] [facility] [address] [id number] [place] [address]- 2576 Dec, [facility] [place] [facility] [address] [id number] [place] [address]- 5632 Dec, [facility] [place] [facility] [address] [id number] [place] [address]- 6508 Sep, [facility] [place] [facility] [address] [id number] [place] [address]- 5784 Sep, [facility] [place] [facility] [address] [id number] [place] [address]- 5422 Sep, [facility] [place] [facility] [address] [id number] [place] [address]- 5652 Sep, [facility] [place] [facility] [address] [id number] [place] [address]- 2182 Sep, [facility] [place] [facility] [address] [id number] [place] [address]- 2209 Sep, [facility] [place] [facility] [address] [id number] [place] [address]- 1959 Sep, [facility] [place] [facility] [address] [id number] [place] 4903 Sep, [facility] [place] [facility] [address] [id number] [place] [address]- 9332 Jul, [facility] [place] [facility] [address] [id number] [place] [address]- 3320 Jul, [facility] [place] [facility] [address] [id number] [place] [address]- 2398 Jun, [facility] [place] [facility] [address] [facility] [id number] [place] [address]- 3291 Jun, [facility] [place] [facility] [address] [id number] [place] [address]- 9067 May, [facility] [place] [facility] [address] [id number] [place] [address]- 2759 May, [facility] [place] [facility] [address] [id number] [place] [address]- 5657 May, [facility] [place] [facility] [address] [id number] [place] [address]- 6222 May, [facility] [place] [facility] [address] [id number] [address]- 2385 May, [facility] [place] [facility] [address] [id number] [address]- 8410 May, [facility] [place] [facility] [address] [facility] [id number], [place] [address]- 3268 May, [facility] [place] [facility] [address] [id number] [address]- 4800 Apr, [facility] [place] [facility] [address] [id number], [place] [address]- 6133 Apr, [facility] [place] [facility] [address] [id number], [place] [address]- 5994 Apr, [facility] [place] [facility] [address] [id number][place] [address]- 2470 Apr, [facility] [place] [facility] [address] [id number], [place] [address]- 5308 30 Apr, 2013 [facility] [place] [facility] [address] [id number] [place] [address]- 2674 Apr, [facility] [address] [id number] [place] [address]- 6744 Mar, [facility] [address] [id number] [place] [address]- 5296 Feb, [facility] [address] [id number] [place] [address]- 9315 Jan, [facility] [place] [facility] [address] [id number] [place] [address]- 9284 Jan, [facility] [address] [id number] [place] [address]- 7056 Jan, [facility] [address] [id number] [place] [address]- 0823 Dec, [facility] [address] [id number] [place] [address]- 3801 November, [facility] [address] [id number] [place] [address]- 2733 November, [facility] [address] [id number] [place] [address]- 4300 November, [facility] [address] [facility] [id number] [place] [address]- 1132 November, [facility] [address] [id number] [place] [address]- 7052 Oct, [facility] [address] [id number] [place] [address]- 3573 Aug, [facility] [place] [facility] [address] [id number] [place] [address]- 6608 Aug, [facility] [place] [facility] [address] [id number] [place] [address]- 2546 Aug, [facility] [place] [facility] [address] [id number] [place] [address]- 5169 Aug, [facility] [place] [facility] [address] [id number] [place] [address]- 3144 Aug, [facility] [place] [facility] [address] [id number] [place] [address]- 4154 Aug, [facility] [place] [facility] [address] [facility] [id number] [place] [address]- 8558 Jul, [facility] [place] [facility] [address] [id number] [place] [address]- 9742 May, [facility] [place] [facility] [address] [id number] [place] [address]- 6591 May, [facility] [place] [facility] [address] [id number] [place] [address]- 7901 May, [facility] [place] [facility] [address] [facility] [id number] [place] [address]- 1657 May, [facility] [place] [facility] [address] [facility] [id number], [place] [address]- 3804 May, [facility] [place] [facility] [address] [facility] [id number] [place] [address]- 3037 May, [facility] [place] [facility] [address] [facility] [id number], [place] [address]- 3991 May, [facility] [place] [facility] [address] [id number], [place] [address]- 7411 Apr, [facility] [place] [facility] [address] [id number], [place] [address]- 2665 Apr, [facility] [place] [facility] [address] [facility] [id number] [place] [address]- 9611 Apr, [facility] [place] [facility] [address] [id number], [place] [address]- 7197 Apr, [facility] [place] [facility] [address] [facility] [id number], [place] [address]- 9923 Apr, [facility] [place] [facility] [address] [id number] [place] [address]- 6715 Sep, [facility] [place] [facility] [address] [id number] [place] [address]- 0626 24 Aug, 2011 [facility] [place] [facility] [address] [id number] [place] [address] 2546 16 Aug, 2011 [facility] [place] [facility] [address] [id number] [place] [address] 2546 Aug, [facility] [place] [facility] [address] [id number] [place] [address] 2546 Aug, [facility] [place] [facility] [id number] [place] [address], [place] [address]- 6051 Aug, [facility] [place] [facility] [address] [facility] [id number] [place] [address]- 8926 Jul, [facility] [place] [facility] [address] [facility] [id number] [place] [address]- 1628 Jul, [facility] [place] [facility] [address] [facility] [id number] [place] [address] Jul, [facility] [place] [facility] [id number] [place] [address] Jun, [facility] [place] [facility] [address] [facility] [id number] [place] [address] Jun, [facility] [place] [facility] [address] [facility] [id number] [place] [address] Jun, [facility] [place] [facility] [address] [facility] [id number] [place] [address] May, [facility] [place] [facility] [address] [facility] [id number] [place] [address] 15 Apr, 2011 [facility] [place] [facility] [address] [facility] [id number] [place] [address] 12 Apr, 2011 [facility] [place] [facility] [address] [facility] [id number] [place] [address] Apr, [facility] [address] [facility] [id number] [place] [id number] Apr, IMMUNIZATIONS No Known Immunizations SOCIAL HISTORY [...]
--- OUTSIDE RECORDS SUMMARY | 2018-02-08 12:48 | XMS REPORT ---
Author Author CARISA KHAN Organization [facility] Address [address] [place] [address] Care Team Providers Care Post Acute Care Nurse Name Role Phone CARISA KHAN Unavailable PROBLEMS Type Condition ICD9-CM Code ICB85-JO Code Onset Dates Condition Status SNOMED Code Problem Hyperinsulinemia E16.1 Active 39883313 Problem Tension headache G44.209 Active 027055053 Problem DM neuro manif type II E11.49 Active 95944534 Problem Iron deficiency anemia due to chronic blood loss D50.0 Active 507842459 Problem Menorrhagia with irregular cycle N92.1 Active 183202327 Problem Essential hypertension I10 Active 66520716 Problem Intractable migraine without aura and without status migrainosus G43.019 Active 604775481 Problem Sleep apnea in adult G47.30 Active 08181267 Problem Irritable bowel syndrome with diarrhea K58.0 Active 467149124 ALLERGIES No Information ENCOUNTERS Encounter Location Date Diagnosis [place] [id number] [place] [address] 00106- 8576 Jan, [place] [id number] [place] [address] 91170- 4561 Dec, Pneumonia due to Mycoplasma pneumoniae, unspecified laterality, unspecified part of lung J15.7 and BMI 50.0-59.9, adult Z68.43 [facility] [id number] [place] [address] 61904- 8250 Dec, [place] [address] 33794- 9539 Dec, Bronchitis J40 and BMI 50.0-59.9, adult Z68.43 [place] [address] 82386- 0710 November, Bronchitis J40 ; LLQ pain R10.32 and BMI 50.0-59.9, adult Z68.43 [place] [id number] [place] [address] 79816- 6009 November, Iron deficiency anemia due to chronic blood loss D50.0 [place] [id number] [place] [address] 19763- 1614 November, [place] [address] 04548- 9478 November, Iron deficiency anemia due to chronic blood loss D50.0 ; DM neuro manif type II E11.49 ; Menorrhagia with irregular cycle N92.1 and BMI 50.0 -59.9, adult Z68.43 [facility] [place] [address] 8[address]8739 Oct, Sore throat J02.9 and Acute nasopharyngitis J00 [facility] [address] [address] -8728 Oct, Left leg pain M79.605 and BMI 50.0-59.9, adult Z68.43 [facility] [address] [address] -8140 Sep, Upper respiratory tract infection, unspecified type J06.9 and BMI 50.0-59.9, adult Z68.43 [place] [id number] [place] [address] 98474- 1713 Sep, Menorrhagia with irregular cycle N92.1 ; Sleep apnea in adult G47.30 and BMI 50.0-59.9, adult Z68.43 [place] [address] 97535- 2073 Sep, [place] [id number] [place] [address] 88479- 1600 Aug, [place] [address] 97106- 7758 Aug, [place] [address] 24746- 1335 Aug, [place] [address] 42101- 7029 Aug, LLQ pain R10.32 ; Irritable bowel syndrome with diarrhea K58.0 ; Change in bowel habits R19.4 ; Essential hypertension I10 and BMI 50.0- 59.9, adult Z68.43 [place] [address] 49953- 6723 Aug, [place] [address] 60236- 0215 Aug, [facility] [address] [address] Aug, Essential hypertension I10 and BMI 50.0-59.9, adult Z68.43 [place] [address] 40473- 1815 Aug, [place] [address] 73801- 4369 Aug, [facility] [address] 66[address] -7654 02 Aug, 2017 Allergic disorder, initial encounter T78.40XA and BMI 50.0- 59.9, adult Z68.43 [facility] [place] [id number] [place] [address] 29997 -9549 Jul, Other atopic dermatitis L20.89 and BMI 50.0-59.9, adult Z68.[address] 48763- 6903 Jul, Intractable migraine without aura and without status migrainosus G43.019 and BMI 50.0-59.9, adult Z68.43 [place] [address] 77926- 7263 Jun, DM neuro manif type II E11.49 ; Tension headache G44.209 ; Breast cancer screening Z12.31 and BMI 50.0-59.9, adult Z68.43 [place] [id number] [place] [address] 76157- 3565 Jun, Tension headache G44.209 ; Breast cancer screening Z12.31 ; BMI 50.0-59.9, adult Z68.43 and DM neuro manif type II E11.49 [facility] [address] [address]254 Apr, Dysuria R30.0 and Acute cystitis with hematuria N30.01 [place] [address] 86401- 6582 Apr, Hyperinsulinemia E16.[address] 62249- 7795 Mar, Acute non-recurrent maxillary sinusitis J01.00 [place] [address] 12749- 9825 Feb, Cellulitis of unspecified part of limb L03.119 ; Spider bite wound, accidental or unintentional, subsequent encounter T63.301D and BMI 50.0-59.9, adult Z68.43 [place] [address] 33751- 7278 Jan, [place] [address] 80017- 8817 Jan, Urinary tract infection, site unspecified N39.0 [place] [address] 90165- 8747 Jan, Acute gastritis without hemorrhage, unspecified gastritis type K29.00 [place] [id number] [place] [address] 41013- 2978 Dec, Pain in right leg M79.604 [place] [address] 17920- 1296 28 Dec, 2016 Hyperinsulinemia E16.1 and Pain in right leg M79.604 [facility] [address] 23219- 2541 Dec, Angioedema, initial encounter T78.3XXA [facility] [id number] [place] [address] 97714- 9902 15 Dec, 2016 Dental examination Z01.20 [facility] [address] 79290- 6361 13 Dec, 2016 [facility] [address] 20567 9618 Dec, Burning with urination R30.0 and Acute cystitis with hematuria N30.01 [facility] [address] 88194- 9243 Oct, [facility] [address] 32260- 7647 Sep, [facility] [address] 27809- 8851 Aug, Hyperinsulinemia E16.1 [facility] [id number] [place] [address] 12070- 3454 Aug, [facility] [id number] [place] [address] 63987- 2672 Jul, [facility] [id number] [place] [address] 74491- 2887 Jul, Chondromalacia, left knee M94.262 and Acute lateral meniscus tear of left knee, initial encounter S83.282A [facility] [address] 53328- 5957 Jul, [facility] [address] [id number] [place] [address] 67008- 2634 Jun, Hyperinsulinemia E16.1 [facility] [address] 33319- 1003 Jun, Dysuria R30.0 ; Back pain M54.9 ; Acute pain of left knee M25.562 and Hyperinsulinemia E16.1 [facility] [id number] [place] [address] 34800- 7616 14 Jun, 2016 Acute non-recurrent maxillary sinusitis J01.00 [facility] [address] 74890- 5100 Jun, Dysuria R30.0 [facility] [id number] [place] [address] 14532- 1417 Jun, Dysuria R30.0 [facility] [address] 49390- 1780 Jun, [facility] [id number] [place] [address] 37987- 5527 May, Dysuria R30.0 and Acute cystitis with hematuria N30.01 [facility] [id number] [place] [address] 41231- 8713 May, Hyperinsulinemia E16.1 [facility] [address] 91794- 7594 May, [facility] [id number] [place] [address] 10780- 3475 May, Sore throat J02.9 [facility] [id number] [place] [address] 81709- 4990 May, [facility] [id number] [place] [address] 05958- 2827 Mar, Hyperinsulinemia E16.1 [facility] [id number] [place] [address] 89353- 6328 Jan, Hyperinsulinemia E16.1 [facility] [id number] [place] [address] 92112- 4758 Dec, DM neuro manif type II E11.49 [facility] [id number] [place] [address] 83513- 7002 November, Hyperinsulinemia E16.1 and Hypertension I10 [facility] [id number] [place] [address] 20915 2546 Oct, [facility] [id number] [place] [address] 20829 2546 Oct, Hyperinsulinemia E16.1 [facility] [id number] [place] [address] 91400 2546 20 Oct, 2015 Pain, unspecified R52 [facility] [id number] [place] [address] 40627 2546 14 Oct, 2015 Pain in right foot M79.671 and Hyperinsulinemia E16.1 [facility] [id number] [place] [address] 49931 2546 14 Oct, 2015 Hyperinsulinemia E16.1 [facility] [id number] [place] [address] 11633 2546 Oct, Hyperinsulinemia E16.1 [facility] [id number] [place] [address] 16921- 3578 17 Aug, 2015 Hypertension I10 and Viral illness B34.9 [facility] [id number] [place] [address] 31752- 3421 May, Back pain M54.9 [facility] [id number] [place] [address] 25138- 5740 14 Oct, 2014 [facility] [id number] [place] [address] 35731- 2541 Oct, [facility] [id number] [place] [address] 78848- 3062 Sep, [facility] [id number] [place] [address] 21339- 5179 30 Sep, 2014 [facility] [id number] [place] [address] 87552- 7922 Sep, [facility] [place] [facility] [address] [id number] [place] [address]- 3586 Sep, 2014 [facility] [place] [facility] [address] [id number] [place] [address]- 5547 Sep, 2014 [facility] [place] [facility] [address] [id number] [place] [address]- 6053 Sep, 2014 [facility] [place] [facility] [address] [id number] [place] [address]- 7020 Sep, 2014 [facility] [place] [facility] [address] [id number] [place] [address]- 3069 Sep, 2014 [facility] [place] [facility] [address] [id number] [place] [address]- 1578 Sep, 2014 [facility] [place] [facility] [address] [id number] [place] [address]- 1144 Sep, 2014 [facility] [place] [facility] [address] [id number] [place] [address]- 8077 Sep, 2014 [facility] [place] [facility] [address] [id number] [place] [address]- 9373 Sep, 2014 [facility] [place] [facility] [address] [id number] [place] [address]- 8591 Mar, [facility] [place] [facility] [address] [id number] [place] [address]- 1895 Mar, [facility] [place] [facility] [address] [id number] [place] [address]- 4644 Feb, [facility] [place] [facility] [address] [id number] [place] [address]- 8011 Feb, [facility] [place] [facility] [address] [id number] [place] [address]- 8704 Feb, [facility] [place] [facility] [address] [id number] [place] [address]- 4170 Feb, [facility] [place] [facility] [address] [id number] [place] [address]- 2667 Dec, [facility] [place] [facility] [address] [id number] [place] [address]- 0817 Dec, [facility] [place] [facility] [address] [id number] [place] [address]- 8122 Dec, [facility] [place] [facility] [address] [id number] [place] [address]- 9968 Dec, [facility] [place] [facility] [address] [id number] [place] [address]- 2720 Dec, [facility] [place] [facility] [address] [id number] [place] [address]- 8941 Dec, [facility] [place] [facility] [address] [id number] [place] [address]- 3762 Dec, [facility] [place] [facility] [address] [id number] [place] [address]- 7631 Sep, [facility] [place] [facility] [address] [id number] [place] [address]- 0887 Sep, [facility] [place] [facility] [address] [id number] [place] [address]- 4814 Sep, [facility] [place] [facility] [address] [id number] [place] [address]- 3150 Sep, [facility] [place] [facility] [address] [id number] [place] [address]- 4731 Sep, [facility] [place] [facility] [address] [id number] [place] [address]- 2456 Sep, [facility] [place] [facility] [address] [id number] [place] [address]- 3071 Sep, [facility] [place] [facility] [address] [id number] [place] [address]- 5894 Sep, [facility] [place] [facility] [address] [id number] [place] [address]- 1259 Jul, [facility] [place] [facility] [address] [id number] [place] [address]- 1299 Jul, [facility] [address] [id number] [place] [address]- 3005 Jun, [facility] [place] [facility] [address] [id number] [place]- 6271 Jun, [facility] [address] [id number] [place] [address]- 8590 May, [facility] [place] [facility] [address] [id number] [place] [address]- 5831 May, [facility] [address] [id number] [place] [address]- 6531 May, [facility] [place] [facility] [address] [id number] [place] [address]- 3340 May, [facility] [address] [id number] [place] [address]- 8953 May, [facility] [address] [id number] [place] [address]- 4248 May, [facility] [place] [facility] [address] [id number] [place] [address]- 4146 May, [facility] [address] [facility] [id number] [place] [address]- 1936 Apr, [facility] [place] [facility] [address] [id number] [place] [address]- 0825 Apr, [facility] [place] [facility] [address] [id number] [place] [address]- 9327 Apr, [facility] [place] [facility] [address] [id number] [place] [address]- 1507 Apr, [facility] [place] [facility] [address] [id number] [place] [address]- 5199 Apr, [facility] [place] [facility] [address] [id number] [place] [address]- 5249 Apr, [facility] [place] [facility] [address] [id number] [place] [address]- 4060 Mar, [facility] [address] [id number] [place] [address]- 8173 Feb, [facility] [address] [id number] [place] [address]- 7137 Jan, [facility] [place] [facility] [address] [id number] [place] [address]- 8820 Jan, [facility] [address] [id number] [place] [address]- 5243 Jan, [facility] [place] [facility] [address] [id number] [place] [address]- 5738 Dec, [facility] [address] [id number] [place] [address]- 5684 November, [facility] [address] [id number] [place] [address]- 5570 November, [facility] [address] [id number] [place] [address]- 0087 November, [facility] [address] [id number] [place] [address]- 2694 November, [facility] [place] [facility] [address] [id number] [place] [address]- 4263 Oct, [facility] [place] [facility] [address] [id number] [place] [address]- 0833 Aug, [facility] [place] [facility] [address] [id number] [place] [address]- 7275 Aug, [facility] [place] [facility] [address] [id number] [place] [address]- 4816 Aug, [facility] [place] [facility] [address] [id number] [place] [address]- 4253 Aug, [facility] [place] [facility] [address] [id number] [place] [address]- 2292 Aug, [facility] [place] [facility] [address] [id number] [place] 7786 Aug, [facility] [place] [facility] [address] [id number] [place]- 4232 Jul, [facility] [place] [facility] [address] [id number] [place] [address]- 7591 May, [facility] [place] [facility] [address] [id number] [place] [address]- 1063 May, [facility] [place] [facility] [address] [id number] [place] [address]- 6331 May, [facility] [place] [facility] [address] [id number] [place] [address]- 0709 May, [facility] [place] [facility] [address] [facility] [id number] [place] [address]- 9330 May, [facility] [place] [facility] [address] [id number] [place] [address]- 3390 May, [facility] [place] [facility] [address] [id number] [place] [address]- 8400 May, [facility] [place] [facility] [address] [facility] [id number] [place] [address]- 7347 Apr, [facility] [place] [facility] [address] [id number] [place] [address]- 6816 Apr, [facility] [place] [facility] [address] [id number] [place] [address]- 2543 Apr, [facility] [place] [facility] [address] [id number] [place] [address]- 7832 Apr, [facility] [place] [facility] [address] [facility] [id number] [place] [address]- 3126 Apr, [facility] [place] [facility] [address] [id number] [place] 5784 Sep, [facility] [place] [facility] [address] [id number] [place] [address]- 0733 Aug, [facility] [place] [facility] [address] [id number] [place] [address]- 5546 Aug, [facility] [place] [facility] [address] [id number] [place] 9996 Aug, [facility] [place] [facility] [address] [id number] [place] [address]- 9176 Aug, [facility] [place] [facility] [address] [id number] [place] [address]- 4865 Aug, [facility] [place] [facility] [address] [id number] [place] [address]- 1209 Jul, [facility] [place] [facility] [address] [id number] [place] [address]- 9133 Jul, [facility] [place] [facility] [address] [id number] [place] [address]- 2092 Jul, [facility] [place] [facility] [address] [id number] [place] [address]- 3280 Jun, [facility] [place] [facility] [address] [id number] [place] [address]- 2589 Jun, [facility] [place] [facility] [address] [id number] [place] [address]- 9480 Jun, [facility] [place] [facility] [address] [id number] [place] [address]- 0104 May, [facility] [place] [facility] [address] [id number] [place] [address]- 9126 15 Apr, 2011 [facility] [place] [facility] [address] [id number] [place] [address]- 5049 Apr, [facility] [place] [facility] [address] [id number] [place] [address]- 4069 Apr, [facility] [place] [facility] [address] [id number] [place] [address] 3986 Apr, IMMUNIZATIONS No Known Immunizations SOCIAL HISTORY Never Assessed REASON FOR VISIT Order request PLAN OF CARE VITAL SIGNS MEDICATIONS Unknown [...]
[2018-02-08] MEDS ORDERED: LACTATED RINGERS 1,000 ML IV STA (12:49)
--- OUTSIDE RECORDS SUMMARY | 2018-02-08 12:49 | XMS REPORT ---
Author Author BAUDILIO LANDA [facility] IN [facility] Address [address] [place] [address] Care Team Providers Care Glove Pairer Name Role Phone BAUDILIO LANDA Unavailable PROBLEMS Type Condition ICD9-CM Code LSJ18-IB Code Onset Dates Condition Status SNOMED Code Problem Hyperinsulinemia E16.1 Active 20981391 Problem Tension headache G44.209 Active 424020354 Problem DM neuro manif type II E11.49 Active 18643228 Problem Iron deficiency anemia due to chronic blood loss D50.0 Active 956642731 Problem Menorrhagia with irregular cycle N92.1 Active 427277029 Problem Essential hypertension I10 Active 58430153 Problem Intractable migraine without aura and without status migrainosus G43.019 Active 407680108 Problem Sleep apnea in adult G47.30 Active 28438661 Problem Irritable bowel syndrome with diarrhea K58.0 Active 377837723 ALLERGIES Substance Reaction Event Type Date Status Codeine hives Drug Allergy Aug, Active liquid codeine/ pt. can tolerate drugs like hydroco Unknown Non Drug Allergy Aug, Active Red Onion hives Non Drug Allergy Aug, Active Chlorthalidone 25 Mg Tablet hives Non Drug Allergy Aug, Active Hydrochlorothiazide 25 Mg Tablet hives Non Drug Allergy Aug, Active ENCOUNTERS Encounter Location Date Diagnosis [facility] [address] [facility] [id number] [address] Jan, [facility] [place] [address] [place] [id number] [place] [address]- [address] Dec, Pneumonia due to Mycoplasma pneumoniae, unspecified laterality, unspecified part of lung J15.7 and BMI 50.0-59.9, adult Z68.43 [facility] [address] [place] [id number] [address] Dec, [place] [address] [place] [id number] [place] [address] 7[address]43- 6848 Dec, Bronchitis J40 and BMI 50.0-59.9, adult Z68.43 [place] [address] [address] November, Bronchitis J40 ; LLQ pain R10.32 and BMI 50.0-59.9, adult Z68.43 [place] [address] [address]- 5964 November, Iron deficiency anemia due to chronic blood loss D50.0 [place] [address] [address]- 8504 November, [place] [address] [address]- 8345 November, Iron deficiency anemia due to chronic blood loss D50.0 ; DM neuro manif type II E11.49 ; Menorrhagia with irregular cycle N92.1 and BMI 50.0 -59.9, adult Z68.43 [facility] [place] [address] [address] Oct, Sore throat J02.9 and Acute nasopharyngitis J00 [facility] [address] [address] Oct, Left leg pain M79.605 and BMI 50.0-59.9, adult Z68.43 [facility] [place] [address] [address] [place] [id number] [place] [address]77 -5733 Sep, Upper respiratory tract infection, unspecified type J06.9 and BMI 50.0-59.9, adult Z68.43 [place] [address] [address]- 7[address] Sep, Menorrhagia with irregular cycle N92.1 ; Sleep apnea in adult G47.30 and BMI 50.0-59.9, adult Z68.43 [place] [address] [place] [id number] [place] [address] 51698- 9133 Sep, [facility] [place] [address] [place] [id number] [place] [address]007- 1964 Aug, [facility] [place] [address] [place] [id number] [place] [address] 95690- 6615 Aug, [facility] [place] [address] [address]- 8912 Aug, [facility] [place] [address] [place] [id number] [place] [address] 74758- 8746 Aug, LLQ pain R10.32 ; Irritable bowel syndrome with diarrhea K58.0 ; Change in bowel habits R19.4 ; Essential hypertension I10 and BMI 50.0- 59.9, adult Z68.43 [place] [address] [place] [id number] [place] [address] 87440- 2803 Aug, [facility] [place] [address] [place] [id number] [place] [address] 36660- 0784 Aug, [facility] [address] [place] [id number] [place] [address] 15762 -0149 Aug, Essential hypertension I10 and BMI 50.0-59.9, adult Z68.43 [facility] [place] [address] [place] [id number] [place] [address] 28131- 6456 Aug, [facility] [place] [address] [place] [id number] [place] [address] 04420- 9920 Aug, [facility] [address] [place] [address] [id number] [place] [address] 8[address]01 -8043 02 Aug, 2017 Allergic disorder, initial encounter T78.40XA and BMI 50.0- 59.9, adult Z68.43 [facility] [id number] [place] [address] 7[address]49 -0974 Jul, Other atopic dermatitis L20.89 and BMI 50.0-59.9, adult Z68.43 [facility] [address] [id number] [place] [address] 52966- 5939 Jul, Intractable migraine without aura and without status migrainosus G43.019 and BMI 50.0-59.9, adult Z68.43 [facility] [address] [place] [id number] [place] [address] 35118- 3655 Jun, DM neuro manif type II E11.49 ; Tension headache G44.209 ; Breast cancer screening Z12.31 and BMI 50.0-59.9, adult Z68.43 [facility] [address] [place] [id number] [place] [address] 25758- 9019 Jun, Tension headache G44.209 ; Breast cancer screening Z12.31 ; BMI 50.0-59.9, adult Z68.43 and DM neuro manif type II E11.[address] [facility] [address] [place] [id number] [place] [address] 17230 -8595 Apr, Dysuria R30.0 and Acute cystitis with hematuria N30.01 [place] [address] [place] [id number] [place] [address] 69327- 8533 Apr, Hyperinsulinemia E16.1 [place] [address] 56407- 5586 Mar, Acute non-recurrent maxillary sinusitis J01.00 [place] [address] [place] [id number] [place] [address] 78093- 4419 Feb, Cellulitis of unspecified part of limb L03.119 ; Spider bite wound, accidental or unintentional, subsequent encounter T63.301D and BMI 50.0-59.9, adult Z68.43 [facility] [place] [address] [place] [id number] [place] [address] 32033- 9816 Jan, [place] [address] [place] [id number] [place] [address] 42407- 0708 Jan, Urinary tract infection, site unspecified N39.0 [place] [address] 61089- 0138 Jan, Acute gastritis without hemorrhage, unspecified gastritis type K29.00 [place] [address] [id number]- [address]106 30 Dec, 2016 Pain in right leg M79.604 [place] [address] 511725- 0339 Dec, Hyperinsulinemia E16.1 and Pain in right leg M79.604 [place] [address] 57332- 6100 Dec, Angioedema, initial encounter T78.3XXA [place] [address] 30827- 2864 15 Dec, 2016 Dental examination Z01.20 [place] [address] 94334- 4508 Dec, [place] [address] 94063- 6489 Dec, Burning with urination R30.0 and Acute cystitis with hematuria N30.01 [place] [address] 25303- 1558 Oct, [place] [address] 90244- 2966 Sep, [place] [address] 57490- 0566 Aug, Hyperinsulinemia E16.1 [place] [address] 54425- 7795 Aug, [place] [address] 53374- 8063 Jul, [place] [address] 74923- 2613 Jul, Chondromalacia, left knee M94.262 and Acute lateral meniscus tear of left knee, initial encounter S83.282A [facility] [place] [address] [place] [id number] [place] [address] 62518 2546 Jul, [facility] [place] [address] [id number] [place] [address] 69164 2546 Jun, Hyperinsulinemia E16.1 [facility] [place] [address] [place] [id number] [place] [address] 12207 2546 Jun, Dysuria R30.0 ; Back pain M54.9 ; Acute pain of left knee M25.562 and Hyperinsulinemia E16.1 [facility] [place] [address] [place] [id number] [place] [address] 95056 2546 Jun, Acute non-recurrent maxillary sinusitis J01.00 [facility] [place] [address] [place] [id number] [place] [address] 16973 2546 Jun, Dysuria R30.0 [facility] [place] [address] [place] [id number] [place] [address] 24720 2546 Jun, Dysuria R30.0 [facility] [place] [address] [place] [id number] [place] [address] 64523 2546 Jun, [facility] [place] [address] [place] [id number] [place] [address] 17984 2546 May, Dysuria R30.0 and Acute cystitis with hematuria N30.01 [facility] [place] [address] [place] [id number] [place] [address] 44664 2546 May, Hyperinsulinemia E16.1 [facility] [place] [address] [place] [id number] [place] [address] 73664 2546 May, [facility] [place] [address] [place] [id number] [place] [address] 50338 2546 May, Sore throat J02.9 [facility] [place] [address] [place] [id number] [place] [address] 07894 2546 May, [facility] [place] [address] [place] [place] [id number] [place] [address] 20070- 2546 Mar, Hyperinsulinemia E16.1 [facility] [place] [address] [id number] [place] [address] 35334- 1824 Jan, Hyperinsulinemia E16.1 [facility] [place] [address] 52358- 6160 Dec, DM neuro manif type II E11.49 [facility] [place] [address] 46356- 4997 November, Hyperinsulinemia E16.1 and Hypertension I10 [facility] [place] [address] 09802- 8858 Oct, [facility] [place] [address] 20467- 8620 Oct, Hyperinsulinemia E16.1 [facility] [address] 77993- 8475 Oct, Pain, unspecified R52 [facility] [place] [address] 13494- 9469 Oct, Pain in right foot M79.671 and Hyperinsulinemia E16.1 [facility] [place] [address] 55173- 1173 Oct, Hyperinsulinemia E16.1 [facility] [address] 10659- 2275 Oct, Hyperinsulinemia E16.1 [facility] [place] [address] 05196- 0948 17 Aug, 2015 Hypertension I10 and Viral illness B34.9 [facility] [place] [address] [place] [id number] [place] [address] 99542- 1900 May, Back pain M54.9 [facility] [place] [address] [place] [id number] [place] [address] 02478- 3417 14 Oct, 2014 [facility] [place] [address] [place] [id number] [place] [address] 43595- 1027 Oct, [facility] [address] [address]- 1845 30 Sep, 2014 [facility] [place] [facility] [address] [id number] [place] [address]- 7348 30 Sep, 2014 [facility] [place] [facility] [address] [id number] [place] [address]- 1720 Sep, 2014 [facility] [place] [facility] [address] [id number] [place] [address]- 6787 Sep, 2014 [facility] [place] [facility] [address] [id number] [place] [address]- 7149 Sep, 2014 [facility] [place] [facility] [address] [id number] [place] [address]- 4777 Sep, 2014 [facility] [place] [facility] [address] [id number] [place] [address]- 7360 Sep, 2014 [facility] [place] [facility] [address] [id number] [place] [address]- 3591 Sep, 2014 [facility] [place] [facility] [address] [id number] [place] [address]- 3877 Sep, 2014 [facility] [place] [facility] [address] [id number] [place] [address]- 4764 Sep, 2014 [facility] [place] [facility] [address] [id number] [place] [address]- 0859 Sep, 2014 [facility] [place] [facility] [address] [id number] [place] [address]- 1159 Sep, 2014 [facility] [place] [facility] [address] [id number] [place] [address]- 2593 Mar, [facility] [place] [facility] [address] [id number] [place] [address]- 9893 Mar, [facility] [place] [facility] [address] [id number] [place] [address]- 8612 Feb, [facility] [place] [facility] [address] [id number] [place] 0934 Feb, [facility] [place] [facility] [address] [id number] [place] [address]- 1306 Feb, [facility] [place] [facility] [address] [id number] [place] [address]- 4258 Feb, [facility] [place] [facility] [address] [id number] [place] [address]- 9357 Dec, [facility] [place] [facility] [address] [id number] [place] [address]- 2806 Dec, [facility] [place] [facility] [address] [id number] [place] [address]- 6257 Dec, [facility] [place] [facility] [address] [id number] [place] [address]- 5726 Dec, [facility] [place] [facility] [address] [id number] [place] [address]- 2700 Dec, [facility] [place] [facility] [address] [id number] [place] [address]- 7736 Dec, [facility] [place] [facility] [address] [id number] [place] [address]- 7987 Dec, [facility] [place] [facility] [address] [id number] [place] [address]- 2021 Sep, [facility] [place] [facility] [address] [id number] [place] [address]- 4109 Sep, [facility] [place] [facility] [address] [id number] [address]- 3845 Sep, [facility] [place] [facility] [address] [id number] [place] [address]- 6517 Sep, [facility] [place] [facility] [address] [id number] [place] [address]- 8879 Sep, [facility] [place] [facility] [address] [id number] [place] [address]- 9741 Sep, [facility] [place] [facility] [address] [id number] [address]- 4326 Sep, [facility] [place] [facility] [address] [id number] [place] [address]- 3624 Sep, [facility] [place] [facility] [address] [facility] [id number] [address]- 1035 Jul, [facility] [place] [facility] [address] [facility] [id number] [place] [address]- 7529 Jul, [facility] [place] [facility] [address] [facility] [id number] [place] [address]- 1790 Jun, [facility] [place] [facility] [address] [facility] [id number] [place] [address]- 0823 Jun, [facility] [place] [facility] [address] [facility] [id number] [place] [address]- 6413 May, [facility] [place] [facility] [address] [address]- 9476 May, [facility] [place] [facility] [address] [facility] [id number] [place] [address]- 1308 May, [facility] [place] [facility] [id number] [address]- 6002 May, [facility] [place] [facility] [id number] [address]- 6312 May, [facility] [place] [facility] [address] [facility] [id number] [place] [address]- 7653 May, [facility] [place] [facility] [address] [facility] [id number] [address]- 2507 May, [facility] [place] [facility] [address] [facility] [id number] [address]- 7441 Apr, [facility] [place] [facility] [address] [facility] [id number] [place] [address]- 9640 Apr, [facility] [place] [facility] [address] [facility] [id number] [address]- 8473 Apr, [facility] [place] [facility] [address] [id number] [place] [address]- 0395 Apr, [facility] [place] [facility] [address] [id number] [place] [address]- 0188 Apr, [facility] [place] [facility] [address] [id number] [place] [address] 2546 Apr, [facility] [place] [facility] [address] [id number] [place] [address]- 7327 Mar, [facility] [place] [facility] [address] [id number] [place] [address]- 1758 Feb, [facility] [place] [facility] [address] [id number] [place] [address]- 4832 Jan, [facility] [place] [facility] [address] [id number] [place] [address]- 8315 Jan, [facility] [place] [facility] [address] [id number] [place] [address]- 2239 Jan, [facility] [place] [facility] [address] [id number] [place] [address]- 1464 Dec, [facility] [place] [facility] [address] [id number] [place] [address]- 8216 November, [facility] [place] [facility] [address] [id number] [place] [address]- 5744 November, [facility] [place] [facility] [address] [id number] [place] [address]- 7806 November, [facility] [place] [facility] [address] [id number] [place] [address]- 2540 November, [facility] [place] [facility] [address] [id number] [place] [address]- 0566 Oct, [facility] [place] [facility] [address] [id number] [place] [address]- 2546 Aug, [facility] [place] [facility] [address] [id number] [place] [address]- 4553 Aug, [facility] [place] [facility] [address] [id number] [place] [address]- 4706 Aug, [facility] [place] [facility] [address] [id number] [place] [address]- 6162 Aug, [facility] [place] [facility] [address] [facility] [id number] [place] [address]- 9950 Aug, [facility] [place] [facility] [address] [id number] [place] [address]- 1216 Aug, [facility] [place] [facility] [address] [id number] [place] [address]- 5226 Jul, [facility] [place] [facility] [address] [id number] [place] [address]- 6709 May, [facility] [place] [facility] [address] [facility] [id number] [place] [address]- 1826 May, [facility] [place] [facility] [address] [facility] [id number] [place] [address]- 7539 May, [facility] [place] [facility] [address] [facility] [id number] [place] [address]- 0200 May, [facility] [place] [facility] [address] [facility] [id number] [place] [address]- 0061 May, [facility] [place] [facility] [address] [facility] [id number] [place] [address]- 3705 May, [facility] [place] [facility] [address] [facility] [id number] [place] [address]- 4606 May, [facility] [place] [facility] [address] [facility] [id number] [place] [address]- 5212 Apr, [facility] [place] [facility] [address] [facility] [id number] [place] [address] Apr, [facility] [place] [facility] [address] [facility] [id number] [place] [address] Apr, [facility] [place] [facility] [address] [id number] [place] [address] Apr, [facility] [place] [facility] [address] [id number] [place] [address] Apr, [facility] [place] [facility] [address] [id number] [place] [address] Sep, [facility] [place] [facility] [address] [id number] [place] [address] Aug, [facility] [place] [facility] [address] [id number] [place] [address] Aug, [facility] [place] [facility] [address] [id number] [place] [address] Aug, [facility] [place] [facility] [address] [id number] [place] [address] Aug, [facility] [place] [facility] [address] [id number] [place] [address] Aug, [facility] [place] [facility] [address] [id number] [place] [address] Jul, [facility] [place] [facility] [address] [id number] [place] [address] Jul, [facility] [place] [facility] [address] [id number] [place] [address] Jul, [facility] [place] [facility] [address] [id number] [place] [address] Jun, [facility] [place] [facility] [address] [id number] [place] [address] Jun, [facility] [place] [facility] [address] [id number] [place] [address] Jun, [facility] [place] [facility] [address] [id number] [place] [address] May, [facility] [place] [facility] [address] [id number] [place] [address] Apr, [facility] [address] [facility] [id number] [place] [address] Apr, [facility] [address] [facility] [id number] [place] [address] Apr, [facility] [address] [facility] [id number] [place] [address] Apr, IMMUNIZATIONS Vaccine Route Administration Date Status DEXAMETHASONE 4MG/ML (PER 1 MG) IM Intramuscular Aug 19, 2017 Administered DEPO MEDROL 80 MG/ML IM Intramuscular Aug 19, 2017 Administered SOCIAL HISTORY Never Assessed REASON FOR VISIT rash Pt was seen for rash on legs on Tuesday, today she developed hives on arms which itches really bad also statse she feels her face is burning BROOKE Jolley PLAN OF CARE Activity Details Follow Up prn Reason: VITAL SIGNS Height 69 in 2017-08-19 Weight 350.2 lbs 2017-08-19 Temperature 98.0 degrees Fahrenheit 2017-08-19 Heart Rate 88 bpm 2017-08-19 Respiratory Rate 22 2017-08-19 BMI 51.71 kg/m2 2017-08-19 Blood pressure systolic 144 mmHg 2017-08-19 Blood pressure diastolic 88 mmHg 2017-08-19 MEDICATIONS Medication Instructions Dosage Frequency Start Date End Date Duration Status Zyrtec Allergy 10 MG Orally Once a day 1 tablet 24h Active Pepcid 20 MG Orally Once a day 1 tablet 24h Active Triamcinolone Acetonide 0.1 % Externally Twice a day 1 application to affected area 12h Jul, 14 days Active Metformin HCl 500 MG Orally [...] TABLET BY MOUTH ONCE DAILY 30 Active Mobic 7.5 MG Orally Once a day as needed for lega=pain 1-2tablet Dec, 90 days Active Diltiazem HCl ER Beads 240 MG TAKE ONE CAPSULE BY MOUTH DAILY 30 Active Onzetra Xsail 11 MG/NOSEPC Nasally Once a day 1 spray in each nostril as needed one time 24h Jun, 1 day(s) Not-Taking HydrOXYzine HCl 25 MG Orally every 6 hrs 1 tablet as needed 6h Dec, 0 days Active RESULTS No Results PROCEDURES Procedure Date Ordered Result Body Site DEXAMETHASONE 4MG/ML (PER 1 MG) Aug 19, 2017 THER/PROPH/DIAG INJ, SC/IM Aug 19, 2017 DEPO MEDROL 80 MG/ML Aug 19, 2017 INSTRUCTIONS MEDICATIONS ADMINISTERED No Known Medications MEDICAL (GENERAL) HISTORY Type Description Date Medical History hypertension Medical History Sleep apnea in adult Surgical History x 3 Surgical History cholecystectomy Surgical History Chemical Stress Test, EKG, Echo 05/2016 Hospitalization History surgeries Hospitalization History UTI [facility] 05/2016
--- OUTSIDE RECORDS SUMMARY | 2018-02-08 12:50 | XMS REPORT ---
Author Author CARY ANGLIN [facility] Address [address] [place] [address] Care Team Providers Care Production Control Supervisor Name Role Phone DERREK CARY Unavailable PROBLEMS Type Condition ICD9-CM Code URM89-GI Code Onset Dates Condition Status SNOMED Code Problem Pain, unspecified R52 Active 401188594 Problem Intractable migraine without aura and without status migrainosus G43.019 Active 008216393 Problem Tension headache G44.209 Active 974085317 Problem Viral illness B34.9 Active 04760582 Problem Hyperinsulinemia E16.1 Active 58231121 Problem DM neuro manif type II E11.49 Active 98345221 Problem Iron deficiency anemia due to chronic blood loss D50.0 Active 834195994 Problem Menorrhagia with irregular cycle N92.1 Active 338572752 Problem Essential hypertension I10 Active 72332693 Problem Other atopic dermatitis L20.89 Active 50930994 Problem Sleep apnea in adult G47.30 Active 43154236 Problem Irritable bowel syndrome with diarrhea K58.0 Active 308494421 ALLERGIES Substance Reaction Event Type Date Status Codeine hives Drug Allergy Apr, Active liquid codeine/ pt. can tolerate drugs like hydroco Unknown Non Drug Allergy Apr, Active Red Onion hives Non Drug Allergy Apr, Active Chlorthalidone 25 Mg Tablet hives Non Drug Allergy Apr, Active Hydrochlorothiazide 25 Mg Tablet hives Non Drug Allergy Apr, Active ENCOUNTERS Encounter Location Date Diagnosis [facility] [address] [facility] [id number] [address] November, Iron deficiency anemia due to chronic blood loss D50.0 ; DM neuro manif type II E11.49 ; Menorrhagia with irregular cycle N92.1 and BMI 50.0 -59.9, adult Z68.43 [facility] [address] [facility] [id number] [address] Oct, Sore throat J02.9 and Acute nasopharyngitis J00 [facility] [address] [address] Oct, Left leg pain M79.605 and BMI 50.0-59.9, adult Z68.43 [facility] [address] [address] Sep, Upper respiratory tract infection, unspecified type J06.9 and BMI 50.0-59.9, adult Z68.43 [place] [address] [address] Sep, Menorrhagia with irregular cycle N92.1 ; Sleep apnea in adult G47.30 and BMI 50.0-59.9, adult Z68.43 [place] [address] [address] Sep, [facility] [address] [address] Aug, [place] [address] [address] Aug, [facility] [address] [address] Aug, [place] [address] [address] Aug, LLQ pain R10.32 ; Irritable bowel syndrome with diarrhea K58.0 ; Change in bowel habits R19.4 ; Essential hypertension I10 and BMI 50.0- 59.9, adult Z68.43 [facility] [address] [address] Aug, [facility] [address] [address] Aug, [facility] [address] [address] Aug, Essential hypertension I10 and BMI 50.0-59.9, adult Z68.43 [place] [address] [address] Aug, [place] [address] [address] Aug, [facility] [address] [address] 02 Aug, 2017 Allergic disorder, initial encounter T78.40XA and BMI 50.0- 59.9, adult Z68.43 [facility] [address] [address] Jul, Other atopic dermatitis L20.89 and BMI 50.0-59.9, adult Z68.43 [place] [address] [address] Jul, Intractable migraine without aura and without status migrainosus G43.019 and BMI 50.0-59.9, adult Z68.43 [place] [address] [address] Jun, DM neuro manif type II E11.49 ; Tension headache G44.209 ; Breast cancer screening Z12.31 and BMI 50.0-59.9, adult Z68.43 [place] [id number] [place] [address] Jun, Tension headache G44.209 ; Breast cancer screening Z12.31 ; BMI 50.0-59.9, adult Z68.43 and DM neuro manif type II E11.49 [facility] [place] [id number] [place] [address] Apr, Dysuria R30.0 and Acute cystitis with hematuria N30.[address] [address] Apr, Hyperinsulinemia E16.1 [place] [address] [place] [id number] [place] [address] Mar, Acute non-recurrent maxillary sinusitis J01.00 [place] [address] [place] [id number] [place] [address] Feb, Cellulitis of unspecified part of limb L03.119 ; Spider bite wound, accidental or unintentional, subsequent encounter T63.301D and BMI 50.0-59.9, adult Z68.43 [place] [address] [address] Jan, [place] [address] [address] Jan, Urinary tract infection, site unspecified N39.0 [place] [address] [address] Jan, Acute gastritis without hemorrhage, unspecified gastritis type K29.00 [place] [address] [place] [id number] [place] [address] 30 Dec, 2016 Pain in right leg M79.604 [place] [address] [address] 28 Dec, 2016 Hyperinsulinemia E16.1 and Pain in right leg M79.604 [place] [address] [address] Dec, Angioedema, initial encounter T78.3XXA [place] [address] [place] [id number] [place] [address] 15 Dec, 2016 Dental examination Z01.20 [place] [address] [address] 13 Dec, 2016 [place] [address] [place] [id number] [place] [address] Dec, Burning with urination R30.0 and Acute cystitis with hematuria N30.01 [place] [address] [place] [address] Oct, [facility] [address] [place] [id number] [place] [address]- [address] Sep, [facility] [address] [place] [id number] [place] [address] 240[address] Aug, Hyperinsulinemia E16.1 [facility] [address] [place] [id number] [place] [address] Aug, [facility] [address] [place] [id number] [place] [address] 8[address]- 295[address] Jul, [facility] [address] [place] [id number] [place] [address] Jul, Chondromalacia, left knee M94.262 and Acute lateral meniscus tear of left knee, initial encounter S83.282A [place] [address] [address] Jul, [facility] [address] [place] [id number] [place] [address] Jun, Hyperinsulinemia E16.1 [facility] [address] [place] [id number] [place] [address] Jun, Dysuria R30.0 ; Back pain M54.9 ; Acute pain of left knee M25.562 and Hyperinsulinemia E16.1 [facility] [address] [place] [id number] [place] [address] Jun, Acute non-recurrent maxillary sinusitis J01.00 [facility] [address] [place] [id number] [place] [address]674- 0160 Jun, Dysuria R30.0 [facility] [address] [place] [id number] [place] [address]- 79[address] Jun, Dysuria R30.0 [facility] [address] [place] [id number] [place] [address]- [address] Jun, [facility] [address] [address] 30 May, 2016 Dysuria R30.0 and Acute cystitis with hematuria N30.01 [facility] [address] [address] May, Hyperinsulinemia E16.1 [facility] [address] [address] May, [facility] [address] [address] May, Sore throat J02.9 [facility] [address] [address] May, [facility] [address] [address] 08 Mar, 2016 Hyperinsulinemia E16.1 [facility] [address] [address] Jan, Hyperinsulinemia E16.1 [facility] [address] [address] Dec, DM neuro manif type II E11.49 [facility] [address] [address] November, Hyperinsulinemia E16.1 and Hypertension I10 [facility] [address] [address] Oct, [facility] [address] [address] Oct, Hyperinsulinemia E16.1 [facility] [address] 8[address]- [address] 20 Oct, 2015 Pain, unspecified R52 [facility] [address] 8[address] 14 Oct, 2015 Pain in right foot M79.671 and Hyperinsulinemia E16.1 [facility] [address] [place] [address] 14 Oct, 2015 Hyperinsulinemia E16.1 [facility] [address] [address] 12 Oct, 2015 Hyperinsulinemia E16.1 [facility] [address] [address] 17 Aug, 2015 Hypertension I10 and Viral illness B34.9 [facility] [address] [place] [id number] [place] [address]- 53[address] 18 May, 2015 Back pain M54.9 [facility] [address] [address] 14 Oct, 2014 [facility] [id number] [place] [address] 88627- 0[address] Oct, [facility] [address] [address] 30 Sep, 2014 [facility] [address] [address] 30 Sep, 2014 [facility] [address] [address] Sep, [facility] [address] [address] Sep, [facility] [address] [address] Sep, [facility] [address] [address] 09[address] Sep, [facility] [address] [address] 49[address] Sep, [facility] [address] [address] 65[address] Sep, [facility] [address] [address] Sep, [facility] [address] [place] [id number] [place] [address] Sep, 2014 [facility] [place] [facility] [address] [id number] [place] [address]- [address]61 Sep, 2014 [facility] [place] [facility] [address] [id number] [place] [address]- 1674 Sep, 2014 [facility] [place] [facility] [address] [id number] [place] [address]- 8[address] Mar, [facility] [place] [facility] [address] [id number] [place] [address]- 4[address] Mar, [facility] [place] [facility] [address] [id number] [place] [address]- 9147 Feb, [facility] [place] [facility] [address] [id number] [place] [address]- 8192 Feb, [facility] [place] [facility] [address] [id number] [place] [address]- 2217 Feb, [facility] [place] [facility] [address] [id number] [place] [address]- 8385 Feb, [facility] [place] [facility] [address] [id number] [place] [address]- 4957 Dec, [facility] [place] [facility] [address] [id number] [place] [address]- 5983 Dec, [facility] [place] [facility] [address] [id number] [place] [address]- 59[address] Dec, [facility] [place] [facility] [address] [id number] [place] [address]- 7374 Dec, [facility] [place] [facility] [address] [id number] [place] [address]- 7771 Dec, [facility] [place] [facility] [address] [id number] [place] [address]- 9639 Dec, [facility] [place] [facility] [address] [id number] [place] [address]- 8894 Dec, [facility] [place] [facility] [address] [id number] [place] [address]- 1087 Sep, [facility] [place] [facility] [address] [id number] [place] [address] Sep, [facility] [place] [facility] [address] [id number] [place] [address]- 8431 Sep, [facility] [place] [facility] [address] [id number] [place] [address]- 6641 Sep, [facility] [place] [facility] [address] [id number] [place] [address] Sep, [facility] [place] [facility] [address] [id number] [place] [address]- 2381 Sep, [facility] [place] [facility] [address] [id number] [place] [address]- 9486 Sep, [facility] [place] [facility] [address] [id number] [place] [address]- 0073 Sep, [facility] [place] [facility] [address] [id number] [place] [address]- 1557 Jul, [facility] [place] [facility] [address] [id number] [place] [address] Jul, [facility] [place] [facility] [address] [id number] [place] [address]- 8432 Jun, [facility] [place] [facility] [address] [id number] [address]- [address] Jun, [facility] [place] [facility] [address] [id number] [place] [address]- 6993 May, [facility] [place] [facility] [address] [id number] [place] [address]- 1146 May, [facility] [place] [facility] [address] [id number] [place] [address] 2543 May, [facility] [place] [facility] [address] [id number] [address]- 29[address] May, [facility] [place] [facility] [address] [id number] [place] [address]- 2436 May, [facility] [place] [facility] [address] [id number] [place] [address]- 9799 May, [facility] [place] [facility] [address] [id number] [place] [address]- 1856 May, [facility] [place] [facility] [address] [id number] [place] [address]- 4963 Apr, [facility] [place] [facility] [address] [id number] [place] 235[address] Apr, [facility] [place] [facility] [address] [id number] [place] [address] Apr, [facility] [place] [facility] [address] [id number] [place] [address]- 4705 Apr, [facility] [place] [facility] [address] [id number] [place] [address]- 5375 Apr, [facility] [place] [facility] [address] [id number] [place] [address]- 6513 Apr, [facility] [place] [facility] [address] [id number] [place] [address]- 7587 Mar, [facility] [place] [facility] [address] [id number], [place] [address]- 0044 Feb, [facility] [place] [facility] [address] [id number], [place] [address]- 1240 Jan, [facility] [place] [facility] [address] [id number] [place] [address]- 5037 Jan, [facility] [place] [facility] [address] [id number] [place] [address]- 1991 Jan, [facility] [place] [facility] [address] [id number] [place] [address]- 7204 Dec, [facility] [place] [facility] [address] [id number] [place] [address]- 4646 November, [facility] [address] [id number] [place] [address]- 3737 November, [facility] [place] [facility] [address] [id number] [place] [address]- 3701 November, [facility] [address] [id number] [place] [address]- 6904 November, [facility] [address] [id number] [place] [address]- 4187 Oct, [facility] [address] [id number] [place] [address]- 1715 Aug, [facility] [address] [id number] [place] [address]- 2873 Aug, [facility] [address] [id number] [place] [address]- 8867 Aug, [facility] [address] [id number] [place] [address]- 8281 Aug, [facility] [address] [id number] [place] [address]- 9378 Aug, [facility] [address] [id number] [place] [address]- 6368 Aug, [facility] [address] [id number] [place] [address]- 0481 Jul, [facility] [place] [facility] [address] [id number] [place] [address]- 6809 May, [facility] [place] [facility] [address] [id number] [place] [address]- 0702 May, [facility] [place] [facility] [address] [id number] [place] [address]- 6682 May, [facility] [place] [facility] [address] [id number] [place] [address]- 2546 May, [facility] [place] [facility] [address] [id number] [place] [address]- 1647 May, [facility] [place] [facility] [address] [id number] [place] [address]- 0766 May, [facility] [place] [facility] [address] [facility] [id number] [place] [address]- 8713 May, [facility] [place] [facility] [address] [id number] [place] [address]- 4151 Apr, [facility] [place] [facility] [address] [id number] [place] [address] Apr, [facility] [place] [facility] [address] [facility] [id number] [place] [address]- 4309 Apr, [facility] [place] [facility] [address] [facility] [id number] [place] [address]- 3057 Apr, [facility] [place] [facility] [address] [id number] [place] [address]- 6220 Apr, [facility] [place] [facility] [address] [facility] [id number] [place] [address]- 3691 Sep, [facility] [place] [facility] [address] [facility] [id number] [place] [address]- 5618 Aug, [facility] [place] [facility] [address] [facility] [id number] [address]- 0735 Aug, [facility] [place] [facility] [address] [facility] [id number], [place] [address]- 4951 Aug, [facility] [place] [facility] [address] [facility] [id number] [place] [address]- 9780 Aug, [facility] [place] [facility] [address] [facility] [id number] [place] [address]- 9240 Aug, [facility] [place] [facility] [address] [facility] [id number] [place] [address]- 8032 Jul, [facility] [place] [facility] [address] [address]- 57[address] Jul, [facility] [address] [address]- 9968 Jul, [facility] [address], [place] [address]- 8981 Jun, [facility] [address], [place] [address]- 1764 Jun, [facility] [address] [address]- 4980 Jun, [facility] [address] [place] [id number] [place] [address]94- 2059 May, [facility] [address] [place] [id number] [place] [address]87- 6480 Apr, [facility] [address] [place] [id number] [place] [address] 08102- 6619 Apr, [facility] [address] [address] Apr, [facility] [address] [address]- 96[address] Apr, IMMUNIZATIONS No Known Immunizations SOCIAL HISTORY Never Assessed REASON FOR VISIT dysuria, lower abdominal cramping, frequency with varried amount of urine. last menstural period was 04/23/2017. symptoms started yesterday. harish PLAN OF CARE Activity Details Follow Up prn Reason: VITAL SIGNS Height 69 in 2017-05-15 Weight 353.4 lbs 2017-05-15 Temperature 98.9 degrees Fahrenheit 2017-05-15 Heart Rate 86 bpm 2017-05-15 Respiratory Rate 20 2017-05-15 BMI 52.18 kg/m2 2017-05-15 Blood pressure systolic 134 mmHg 2017-05-15 Blood pressure diastolic 80 mmHg 2017-05-15 MEDICATIONS Medication Instructions Dosage Frequency Start Date End Date Duration Status Imitrex 50 MG Orally Twice a day 1 tablet as needed 12h 30 Active Propranolol HCl 10 MG TAKE ONE TABLET BY MOUTH TWICE DAILY 30 Active HydrOXYzine HCl 25 MG Orally every 6 hrs 1 tablet as needed 6h Dec, 0 days Active Mobic 7.5 MG Orally Once a day as needed for lega=pain 1-2tablet Dec, 90 days Active Metformin HCl 500 MG Orally 2 times a day 1 tablet with meals 12h 90 Active Bactrim DS 800-160 MG Orally twice daily 1 tablet Apr, May, 5 days Active Trulicity 1.5 MG/0.5ML Subcutaneous once weekly inject 0.5 ml Oct, 90 days Active Diltiazem HCl ER Beads 240 MG TAKE ONE CAPSULE BY MOUTH DAILY 30 Active Spironolactone 25 MG TAKE ONE TABLET BY MOUTH ONCE DAILY 30 Active RESULTS Name Result Date Reference Range UA LONG DIP (IN HOUSE) 2017-05-15 Lot # [id number] Exp date 2017 Clarity cloudy Color yellow Odor very srong GLU negative ANNY negative KET negative SG 1.020 BLO 1+ pH 7.5 Protein trace URO 0.2 NIT negative NIMISHA 2+ Lot # [id number] Exp date October 2017 CULTURE, URINE 2017-05-15 Urine Culture, Routine Final report Result 1 PROCEDURES Procedure Date Ordered Result Body Site URINALYSIS, AUTO, W/O SCOPE May 15, 2017 URINE CULTURE/COLONY COUNT May 15, 2017 INSTRUCTIONS MEDICATIONS ADMINISTERED No Known Medications MEDICAL (GENERAL) HISTORY Type Description Date Medical History hypertension Surgical History x 3 Surgical History cholecystectomy Surgical History Chemical Stress Test, EKG, Echo 05/2016 Hospitalization History surgeries Hospitalization History UTI VC 05/2016
--- OUTSIDE RECORDS SUMMARY | 2018-02-08 12:51 | XMS REPORT ---
Author Author CARISA KHAN Organization [facility] Address [address] [place] [address] Care Team Providers Care Center Administrator Name Role Phone CARISA KHAN Unavailable PROBLEMS Type Condition ICD9-CM Code FLH20-BR Code Onset Dates Condition Status SNOMED Code Problem Pain, unspecified R52 Active 673885601 Problem Intractable migraine without aura and without status migrainosus G43.019 Active 786268125 Problem Tension headache G44.209 Active 338025497 Problem Viral illness B34.9 Active 84127665 Problem Hyperinsulinemia E16.1 Active 73057434 Problem DM neuro manif type II E11.49 Active 55933303 Problem Iron deficiency anemia due to chronic blood loss D50.0 Active 855696772 Problem Menorrhagia with irregular cycle N92.1 Active 821087975 Problem Essential hypertension I10 Active 23279503 Problem Other atopic dermatitis L20.89 Active 34587742 Problem Sleep apnea in adult G47.30 Active 19007833 Problem Irritable bowel syndrome with diarrhea K58.0 Active 235825288 ALLERGIES Substance Reaction Event Type Date Status Codeine hives Drug Allergy Jun, Active liquid codeine/ pt. can tolerate drugs like hydroco Unknown Non Drug Allergy Jun, Active Red Onion hives Non Drug Allergy Jun, Active Chlorthalidone 25 Mg Tablet hives Non Drug Allergy Jun, Active Hydrochlorothiazide 25 Mg Tablet hives Non Drug Allergy Jun, Active ENCOUNTERS Encounter Location Date Diagnosis [facility] [address] [facility] [id number] [address] November, Bronchitis J40 ; LLQ pain R10.32 and BMI 50.0-59.9, adult Z68.43 [facility] [id number] [address] November, Iron deficiency anemia due to chronic blood loss D50.0 [place] [address] [place] [id number] [place] [address] November, [place] [address] [address] November, Iron deficiency anemia due to chronic blood loss D50.0 ; DM neuro manif type II E11.49 ; Menorrhagia with irregular cycle N92.1 and BMI 50.0 -59.9, adult Z68.43 [facility] [place] [address] [address] Oct, Sore throat J02.9 and Acute nasopharyngitis J00 [facility] [address] [address] Oct, Left leg pain M79.605 and BMI 50.0-59.9, adult Z68.43 [facility] [place] [address] [address] Sep, Upper respiratory tract infection, unspecified type J06.9 and BMI 50.0-59.9, adult Z68.43 [place] [address] [address] Sep, Menorrhagia with irregular cycle N92.1 ; Sleep apnea in adult G47.30 and BMI 50.0-59.9, adult Z68.43 [place] [address] [place] [id number] [place] [address]257- 5535 Sep, [place] [address] [address] Aug, [place] [address] [address]- 64[address] Aug, [place] [address] 7[address]- 7567 Aug, [place] [address] [address] 90[address] Aug, LLQ pain R10.32 ; Irritable bowel syndrome with diarrhea K58.0 ; Change in bowel habits R19.4 ; Essential hypertension I10 and BMI 50.0- 59.9, adult Z68.43 [place] [address] [place] [id number] [place] [address] 45153- 9951 Aug, [place] [address] 46667- 5668 Aug, [facility] [place] [address] [address] Aug, Essential hypertension I10 and BMI 50.0-59.9, adult Z68.43 [place] [address] [address]20 Aug, [address] [address] Aug, [facility] [place] [address] [address] Aug, Allergic disorder, initial encounter T78.40XA and BMI 50.0- 59.9, adult Z68.43 [facility] IN [place] [address] [address] Jul, Other atopic dermatitis L20.89 and BMI 50.0-59.9, adult Z68.43 [place] [address] 23[address]- [address]80 Jul, Intractable migraine without aura and without status migrainosus G43.019 and BMI 50.0-59.9, adult Z68.43 [place] [address] 28[address] Jun, DM neuro manif type II E11.49 ; Tension headache G44.209 ; Breast cancer screening Z12.31 and BMI 50.0-59.9, adult Z68.43 [place] [address] [address] Jun, Tension headache G44.209 ; Breast cancer screening Z12.31 ; BMI 50.0-59.9, adult Z68.43 and DM neuro manif type II E11.49 [facility] IN [facility] [address] [place] [id number] [place] [address]77 Apr, Dysuria R30.0 and Acute cystitis with hematuria N30.01 [facility] [address] 26765- 6679 Apr, Hyperinsulinemia E16.1 [place] [address] 04042- 8450 Mar, Acute non-recurrent maxillary sinusitis J01.00 [place] [address] [place] [id number] [place] [address] 38609- 4747 Feb, Cellulitis of unspecified part of limb L03.119 ; Spider bite wound, accidental or unintentional, subsequent encounter T63.301D and BMI 50.0-59.9, adult Z68.43 [facility] [address] 65227- 30[address] Jan, [place] [address] 35769- 3096 Jan, Urinary tract infection, site unspecified N39.0 [facility] [address] [place] [id number] [place] [address] 95023- 5670 Jan, Acute gastritis without hemorrhage, unspecified gastritis type K29.00 [facility] [address] [place] [id number] [place] [address] 96494- 1292 Dec, Pain in right leg M79.604 [place] [address] 54604- 9399 Dec, Hyperinsulinemia E16.1 and Pain in right leg M79.604 [facility] [address] [place] [id number] [place] [address] 27865- 1868 Dec, Angioedema, initial encounter T78.3XXA [facility] [address] [place] [address] 16623- 5103 15 Dec, 2016 Dental examination Z01.20 [facility] [address] [place] [id number] [place] [address] 73375- 5047 13 Dec, 2016 [facility] [address] [place] [id number] [place] [address] 17421- 4258 Dec, Burning with urination R30.0 and Acute cystitis with hematuria N30.01 [facility] [address] [place] [id number] [place] [address] 32710- 2457 Oct, [place] [address] 21149- 9317 Sep, [place] [address] 88083- 7482 Aug, Hyperinsulinemia E16.1 [place] [address] [place] [id number] [place] [address] 08131- 8074 Aug, [facility] [address] [place] [id number] [place] [address] 13473- 0459 Jul, [place] [address] [place] [id number] [place] [address] 00963- 7117 Jul, Chondromalacia, left knee M94.262 and Acute lateral meniscus tear of left knee, initial encounter S83.282A [place] [address] [place] [id number] [place] [address] 15342- 9543 Jul, [facility] [address] [place] [id number] [place] [address] 56144- 5444 Jun, Hyperinsulinemia E16.1 [facility] [address] [place] [id number] [place] [address] 18773- 0019 Jun, Dysuria R30.0 ; Back pain M54.9 ; Acute pain of left knee M25.562 and Hyperinsulinemia E16.1 [place] [address] 78397- 1752 14 Jun, 2016 Acute non-recurrent maxillary sinusitis J01.00 [facility] [address] [place] [id number] [place] [address] 76456- 9777 05 Jun, 2016 Dysuria R30.0 [facility] [address] 53156- 2488 05 Jun, 2016 Dysuria R30.0 [facility] [address] 34826- 7882 Jun, [facility] [address] 28731- 1790 May, Dysuria R30.0 and Acute cystitis with hematuria N30.01 [facility] [address] 98365- 8681 May, Hyperinsulinemia E16.1 [facility] [address] 00183- 3188 May, [facility] [address] 44513- 6800 May, Sore throat J02.9 [facility] [address] 00588- 6134 May, [facility] [address] 24468- 8111 Mar, Hyperinsulinemia E16.1 [facility] [address] [address]- 1996 Jan, Hyperinsulinemia E16.1 [facility] [address] 76360- 7696 Dec, DM neuro manif type II E11.49 [facility] [address] 60807- 2800 November, Hyperinsulinemia E16.1 and Hypertension I10 [facility] [address] 08541- 7098 Oct, [facility] [address] [address] 2546 Oct, Hyperinsulinemia E16.1 [facility] [address] [place] [id number] [place] [address] 76613 2546 20 Oct, 2015 Pain, unspecified R52 [facility] [address] [place] [id number] [place] [address] 87112 2546 14 Oct, 2015 Pain in right foot M79.671 and Hyperinsulinemia E16.1 [facility] [address] [place] [id number] [place] [address] 70970 2546 14 Oct, 2015 Hyperinsulinemia E16.1 [facility] [address] [place] [id number] [place] [address] 74166 2546 12 Oct, 2015 Hyperinsulinemia E16.1 [facility] [address] [place] [place] [id number] [place] [address] 64677 2546 17 Aug, 2015 Hypertension I10 and Viral illness B34.9 [facility] [address] [place] [id number] [place] [address] 20410 2545 18 May, 2015 Back pain M54.9 [facility] [address] [id number] [place] [address] 02095- 9297 14 Oct, 2014 [facility] [address] [id number] [place] [address] 25094 2540 Oct, [facility] [address] [place] [id number] [place] [address] 10731 2546 30 Sep, 2014 [facility] [address] [place] [address] 77459 2546 30 Sep, 2014 [facility] [address] [place] [id number] [place] [address] 04191- 6326 17 Sep, 2014 [facility] [address] [id number] [place] [address] 20671- 2546 17 Sep, 2014 [facility] [address] [place] [address] 61907- 4313 11 Sep, 2014 [facility] [place] [facility] [address] [id number] [place] [address]- 8510 Sep, 2014 [facility] [place] [facility] [address] [id number] [place] [address]- 9811 Sep, 2014 [facility] [place] [facility] [address] [id number] [place] [address]- 4129 Sep, 2014 [facility] [place] [facility] [address] [id number] [place] [address]- 7647 Sep, 2014 [facility] [place] [facility] [address] [id number] [place] [address]- 5703 Sep, 2014 [facility] [place] [facility] [address] [id number] [place] [address]- 1278 Sep, 2014 [facility] [place] [facility] [address] [id number] [place] [address]- 9122 Sep, 2014 [facility] [place] [facility] [address] [id number] [place] [address]- 8536 Mar, [facility] [place] [facility] [address] [id number] [place] [address]- 9729 Mar, [facility] [place] [facility] [address] [id number] [place] [address]- 8582 Feb, [facility] [place] [facility] [address] [id number] [place] [address]- 4654 Feb, [facility] [place] [facility] [address] [id number] [place] [address]- 9182 Feb, [facility] [place] [facility] [address] [id number] [place] [address]- 3004 Feb, [facility] [place] [facility] [address] [id number] [place] [address]- 9590 Dec, [facility] [place] [facility] [address] [id number] [place] [address]- 3081 Dec, [facility] [place] [facility] [address] [id number] [place] [address]- 7779 Dec, [facility] [place] [facility] [address] [id number] [place] [address]- 8451 Dec, [facility] [place] [facility] [address] [id number] [place] [address]- 4479 Dec, [facility] [place] [facility] [address] [id number] [place] [address]- 9504 Dec, [facility] [place] [facility] [address] [id number] [place] [address]- 0786 Dec, [facility] [place] [facility] [address] [id number] [place] [address]- 0537 Sep, [facility] [place] [facility] [address] [id number] [place] [address]- 8024 Sep, [facility] [place] [facility] [address] [id number] [place] [address]- 1506 Sep, [facility] [place] [facility] [address] [id number] [place] [address]- 1902 Sep, [facility] [place] [facility] [address] [id number] [place] [address]- 5448 Sep, [facility] [place] [facility] [address] [id number] [place] [address]- 9251 Sep, [facility] [place] [facility] [address] [id number] [place] [address]- 2260 Sep, [facility] [place] [facility] [address] [id number] [place] [address]- 4223 Sep, [facility] [place] [facility] [address] [id number] [place] [address]- 9383 Jul, [facility] [place] [facility] [address] [id number] [place] [address]- 5627 Jul, [facility] [place] [facility] [address] [id number] [place] [address]- 7604 Jun, [facility] [place] [facility] [address] [id number] [place] [address]- 2648 Jun, [facility] [address] [id number] [place] [address]- 2105 May, [facility] [place] [facility] [address] [id number] [place] [address]- 1149 May, [facility] [place] [facility] [address] [id number] [place] [address]- 4256 May, [facility] [place] [facility] [address] [id number] [place] [address]- 2159 May, [facility] [place] [facility] [address] [id number] [place] [address]- 7836 May, [facility] [place] [facility] [address] [id number] [place] [address]- 3403 May, [facility] [place] [facility] [address] [id number] [place] [address]- 2364 May, [facility] [place] [facility] [address] [id number] [place] [address]- 3728 Apr, [facility] [place] [facility] [address] [id number] [place] [address]- 5413 Apr, [facility] [place] [facility] [address] [facility] [id number] [place] [address]- 3126 Apr, [facility] [place] [facility] [address] [id number] [place] [address]- 0391 Apr, [facility] [place] [facility] [address] [id number] [place] [address]- 3221 30 Apr, 2013 [facility] [place] [facility] [address] [id number] [place] [address]- 9899 30 Apr, 2013 [facility] [place] [facility] [address] [id number] [place] [address]- 2570 05 Mar, 2013 [facility] [place] [facility] [address] [id number] [place] [address]- 9729 Feb, [facility] [place] [facility] [address] [id number] [place] [address]- 3889 Jan, [facility] [address] [id number] [place] [address]- 2768 Jan, [facility] [address] [id number] [place] [address]- 2352 Jan, [facility] [place] [facility] [address] [id number] [place] [address]- 9998 Dec, [facility] [address] [id number] [place] [address]- 0691 November, [facility] [address] [id number] [place] [address]- 3749 November, [facility] [address] [id number] [place] [address]- 8764 November, [facility] [address] [id number] [place] [address]- 5435 November, [facility] [address] [id number] [place] [address]- 2077 Oct, [facility] [address] [id number] [place] [address]- 8108 Aug, [facility] [place] [facility] [address] [id number] [place] [address]- 4947 Aug, [facility] [place] [facility] [address] [id number] [place] [address]- 1131 Aug, [facility] [place] [facility] [address] [id number] [place] [address]- 2884 Aug, [facility] [place] [facility] [address] [id number] [place] [address]- 7167 Aug, [facility] [place] [facility] [address] [id number] [place] [address]- 1763 Aug, [facility] [place] [facility] [address] [id number] [place] [address]- 0412 Jul, [facility] [place] [facility] [address] [id number] [place] [address]- 9026 May, [facility] [place] [facility] [address] [id number] [place] [address]- 1996 May, [facility] [place] [facility] [address] [id number] [place] [address]- 2526 May, [facility] [place] [facility] [address] [id number] [place] [address]- 7635 May, [facility] [place] [facility] [address] [id number] [place] [address]- 4059 May, [facility] [place] [facility] [address] [id number] [place] [address]- 8120 May, [facility] [place] [facility] [address] [facility] [id number] [place] [address]- 7240 May, [facility] [place] [facility] [address] [id number] [place] [address]- 2678 Apr, [facility] [place] [facility] [address] [id number] [place] [address]- 8914 Apr, [facility] [place] [facility] [address] [facility] [id number] [place] [address]- 6158 Apr, [facility] [place] [facility] [address] [facility] [id number] [place] [address]- 1816 Apr, [facility] [place] [facility] [address] [facility] [id number] [place] [address]- 5409 Apr, [facility] [place] [facility] [address] [id number] [place] [address]- 7386 Sep, [facility] [place] [facility] [address] [facility] [id number] [place] [address]- 2066 Aug, [facility] [place] [facility] [address] [facility] [id number] [place] [address]- 6358 Aug, [facility] [address] [facility] [id number] [place] [address]- 5794 Aug, [facility] [address] [facility] [id number] [place] 6205 Aug, [facility] [address] [facility] [id number] [place] [address]- 0975 Aug, [facility] [address] [facility] [id number] [place] [address]- 9869 Jul, [facility] [address] [facility] [id number] [place] [address]- 0461 Jul, [facility] [address] [facility] [id number] [place] 1346 Jul, [facility] [address] [address]- 9394 Jun, [facility] [address] [address]- 6281 Jun, [facility] [address] [address]- 4890 Jun, [facility] [address] [address]- 4975 May, [facility] [id number] [address]- 0595 Apr, [facility] [id number] [address]- 0687 Apr, [facility] [id number] [address]- 0093 Apr, [facility] [id number] 4517 Apr, IMMUNIZATIONS No Known Immunizations SOCIAL HISTORY Never Assessed REASON FOR VISIT breast exam and fastin labs. Thanh PLAN OF CARE Activity Details Follow Up 3 Months Reason:DM VITAL SIGNS Height 69 in 2017-07-06 Weight 346.7 lbs 2017-07-06 Temperature 98.3 degrees Fahrenheit 2017-07-06 Heart Rate 76 bpm 2017-07-06 Respiratory Rate 20 2017-07-06 BMI 51.19 kg/m2 2017-07-06 Blood pressure systolic 150 mmHg 2017-07-06 Blood pressure diastolic 94 mmHg 2017-07-06 MEDICATIONS Medication Instructions Dosage Frequency Start Date End Date Duration Status Onzetra Xsail 11 MG/NOSEPC Nasally Once a day 1 spray in each nostril as needed one time 24h Jun, 1 day(s) Active Imitrex 50 MG Orally Twice a day 1 tablet as needed 12h 30 Active HydrOXYzine HCl 25 MG Orally every 6 hrs 1 tablet as needed 6h Dec, 0 days Active Diltiazem HCl ER Beads 240 MG TAKE ONE CAPSULE BY MOUTH DAILY 30 Active Pepcid 20 MG Orally Once a day 1 tablet 24h Active Propranolol HCl 10 MG TAKE ONE TABLET BY MOUTH TWICE DAILY 30 Active Metformin HCl 500 MG Orally 2 times a day 1 tablet with meals 12h 90 Active Trulicity 1.5 MG/0.5ML Subcutaneous once weekly inject 0.5 ml Oct, 90 days Active Mobic 7.5 MG Orally Once a day as needed for lega=pain 1-2tablet Dec, 90 days Active Zyrtec Allergy 10 MG Orally Once a day 1 tablet 24h Active Spironolactone 25 MG TAKE ONE TABLET [...]
--- OUTSIDE RECORDS SUMMARY | 2018-02-08 12:51 | XMS REPORT ---
Author Author CARISA KHAN Organization [facility] Address [address] [place] [address] Care Team Providers Care Electrolytic De Scaler Name Role Phone CARISA KHAN Unavailable PROBLEMS Type Condition ICD9-CM Code ZFR32-UM Code Onset Dates Condition Status SNOMED Code Problem Pain, unspecified R52 Active 364379835 Problem Intractable migraine without aura and without status migrainosus G43.019 Active 936809336 Problem Tension headache G44.209 Active 362609452 Problem Viral illness B34.9 Active 68465100 Problem Hyperinsulinemia E16.1 Active 98686513 Problem DM neuro manif type II E11.49 Active 02196014 Problem Iron deficiency anemia due to chronic blood loss D50.0 Active 234044278 Problem Menorrhagia with irregular cycle N92.1 Active 472401923 Problem Essential hypertension I10 Active 39701864 Problem Other atopic dermatitis L20.89 Active 90876649 Problem Sleep apnea in adult G47.30 Active 46408455 Problem Irritable bowel syndrome with diarrhea K58.0 Active 876331533 ALLERGIES No Information ENCOUNTERS Encounter Location Date Diagnosis [facility] [id number] [place] [address] November, Bronchitis J40 ; LLQ pain R10.32 and BMI 50.0-59.9, adult Z68.43 [facility] [id number] [address] November, Iron deficiency anemia due to chronic blood loss D50.0 [facility] [id number] [place] [address] November, [facility] [address], [place] [address] November, Iron deficiency anemia due to chronic blood loss D50.0 ; DM neuro manif type II E11.49 ; Menorrhagia with irregular cycle N92.1 and BMI 50.0 -59.9, adult Z68.43 [facility] [address] [address] Oct, Sore throat J02.9 and Acute nasopharyngitis J00 [facility] [address] [address] Oct, Left leg pain M79.605 and BMI 50.0-59.9, adult Z68.43 [facility] [address] [address] Sep, Upper respiratory tract infection, unspecified type J06.9 and BMI 50.0-59.9, adult Z68.43 [place] [address] [address] Sep, Menorrhagia with irregular cycle N92.1 ; Sleep apnea in adult G47.30 and BMI 50.0-59.9, adult Z68.43 [place] [address] [address]- [address]858 Sep, [place] [address] [address] Aug, [place] [id number] [place] [address]- [address] Aug, [place] [address] [address]- [address] Aug, [place] [address] [address] Aug, LLQ pain R10.32 ; Irritable bowel syndrome with diarrhea K58.0 ; Change in bowel habits R19.4 ; Essential hypertension I10 and BMI 50.0- 59.9, adult Z68.43 [place] [address] [address] Aug, [place] [id number] [place] [address]- [address] Aug, [facility] [address] [address] Aug, Essential hypertension I10 and BMI 50.0-59.9, adult Z68.[address] [address] Aug, [address] [address] Aug, [facility] [address] [address] 02 Aug, 2017 Allergic disorder, initial encounter T78.40XA and BMI 50.0- 59.9, adult Z68.43 [facility] [address] [address] Jul, Other atopic dermatitis L20.89 and BMI 50.0-59.9, adult Z68.[address] [address] 16 Jul, 2017 Intractable migraine without aura and without status migrainosus G43.019 and BMI 50.0-59.9, adult Z68.43 [place] [id number] [place] [address]- 5[address] Jun, DM neuro manif type II E11.49 ; Tension headache G44.209 ; Breast cancer screening Z12.31 and BMI 50.0-59.9, adult Z68.43 [place] [id number] [place] [address] 67[address]- [address] Jun, Tension headache G44.209 ; Breast cancer screening Z12.31 ; BMI 50.0-59.9, adult Z68.43 and DM neuro manif type II E11.49 [facility] [address] [address] Apr, Dysuria R30.0 and Acute cystitis with hematuria N30.01 [place] [address] [address] Apr, Hyperinsulinemia E16.1 [place] [address] [address]- [address] Mar, Acute non-recurrent maxillary sinusitis J01.00 [place] [address] [address] Feb, Cellulitis of unspecified part of limb L03.119 ; Spider bite wound, accidental or unintentional, subsequent encounter T63.301D and BMI 50.0-59.9, adult Z68.43 [place] [address] [address]- [address] Jan, [place] [address] [address]- 69[address] Jan, Urinary tract infection, site unspecified N39.0 [place] [address] [address]74- [address] Jan, Acute gastritis without hemorrhage, unspecified gastritis type K29.00 [place] [address] 5[address]- [address] Dec, Pain in right leg M79.604 [place] [address] [address]- 2021 Dec, Hyperinsulinemia E16.1 and Pain in right leg M79.604 [place] [address] [address]- [address] Dec, Angioedema, initial encounter T78.3XXA [place] [address] [address]69- [address] 15 Dec, 2016 Dental examination Z01.20 [place] [address] [address]- [address] 13 Dec, 2016 [place] [id number] [place] [address]276- [address] Dec, Burning with urination R30.0 and Acute cystitis with hematuria N30.01 [facility] [id number] [place] [address] 20651- 3626 Oct, [facility] [id number] [place] [address] 89028- 0303 Sep, [facility] [id number] [place] [address] 85833- 7705 Aug, Hyperinsulinemia E16.1 [place] [id number] [place] [address] 68923- 4117 Aug, [place] [id number] [place] [address] 14698- 0162 Jul, [place] [address] 76[address]- [address] Jul, Chondromalacia, left knee M94.262 and Acute lateral meniscus tear of left knee, initial encounter S83.282A [place] [id number] [place] [address] 27884- 3108 Jul, [place] [id number] [place] [address] 00395- 0223 Jun, Hyperinsulinemia E16.1 [facility] [id number] [place] [address] 08567- 2996 Jun, Dysuria R30.0 ; Back pain M54.9 ; Acute pain of left knee M25.562 and Hyperinsulinemia E16.1 [place] [id number] [place] [address] 03087- 0849 14 Jun, 2016 Acute non-recurrent maxillary sinusitis J01.00 [facility] [id number] [place] [address] 50309- 7908 05 Jun, 2016 Dysuria R30.0 [facility] [address] 32937- 6749 Jun, Dysuria R30.0 [facility] [id number] [place] [address] 24643- 8467 Jun, [facility] [address] [address]- [address] May, Dysuria R30.0 and Acute cystitis with hematuria N30.01 [facility] [address] 38[address]- 3[address] May, Hyperinsulinemia E16.1 [facility] [address] 18224- 7560 May, [facility] [address] 59592- 4830 May, Sore throat J02.9 [facility] [address] 64271- 8179 May, [facility] [address] 99052- 6257 Mar, Hyperinsulinemia E16.1 [facility] [address] 05289- 4748 Jan, Hyperinsulinemia E16.1 [facility] [address] 27462- 7174 Dec, DM neuro manif type II E11.49 [facility] [address] 19973- 5193 November, Hyperinsulinemia E16.1 and Hypertension I10 [facility] [address] 55034- 8584 Oct, [facility] [address] 35721- 1261 Oct, Hyperinsulinemia E16.1 [facility] [address] 91080- 1137 Oct, Pain, unspecified R52 [facility] [id number] [place] [address] 00640- 3592 14 Oct, 2016 Pain in right foot M79.671 and Hyperinsulinemia E16.1 [facility] [id number] [place] [address] 21086- 3838 14 Oct, 2015 Hyperinsulinemia E16.1 [facility] [id number] [place] [address] 28807 2546 12 Oct, 2015 Hyperinsulinemia E16.1 [facility] [id number] [place] [address] 58603- 9598 17 Aug, 2015 Hypertension I10 and Viral illness B34.9 [facility] [address] 47454- 6157 18 May, 2015 Back pain M54.9 [facility] [id number] [place] [address] 39534- 0195 14 Oct, 2014 [facility] [id number] [place] [address] 16566- 1914 13 Oct, 2014 [facility] [id number] [place] [address] 46407- 5604 30 Sep, 2014 [facility] [id number] [place] [address] 82236- 9637 30 Sep, 2014 [facility] [id number] [place] [address] 70104- 6990 17 Sep, 2014 [facility] [id number] [place] [address] 03576- 9893 17 Sep, 2014 [facility] [id number] [place] [address] 07923- 3040 Sep, [facility] [id number] [place] [address] 16315- 3626 11 Sep, 2014 [facility] [id number] [place] [address] 116868- 6193 03 Sep, 2014 [facility] [id number] [place] [address] 14942- 0200 Sep, 2014 [facility] [place] [facility] [address] [id number] [place] [address]- 2279 Sep, 2014 [facility] [place] [facility] [address] [id number] [place] [address]- 9212 Sep, 2014 [facility] [place] [facility] [address] [id number] [place] [address]- 2202 Sep, 2014 [facility] [place] [facility] [address] [id number] [place] [address]- 8778 Sep, 2014 [facility] [place] [facility] [address] [id number] [place] [address]- 9256 Mar, [facility] [place] [facility] [address] [id number] [place] [address]- 1935 Mar, [facility] [place] [facility] [address] [id number] [place] [address]- 8411 Feb, [facility] [place] [facility] [address] [id number] [place] [address]- 3407 Feb, [facility] [place] [facility] [address] [id number] [place] [address]- 8832 Feb, [facility] [place] [facility] [address] [id number] [place] [address]- 2431 Feb, [facility] [place] [facility] [address] [id number] [place] [address]- 4877 Dec, [facility] [place] [facility] [address] [id number] [place] [address]- 8458 Dec, [facility] [place] [facility] [address] [id number] [place] [address]- 7434 Dec, [facility] [place] [facility] [address] [id number] [place] [address]- 1097 Dec, [facility] [place] [facility] [address] [id number] [place] [address]- 6245 Dec, [facility] [place] [facility] [address] [id number] [place] [address]- 6572 Dec, [facility] [address] [id number] [place] [address]- 5762 Dec, [facility] [place] [facility] [address] [id number] [place] [address]- 9896 Sep, [facility] [address] [id number] [place] [address]- 8051 Sep, [facility] [place] [facility] [address] [id number] [place] [address]- 0154 Sep, [facility] [address] [id number] [place] [address]- 0884 Sep, [facility] [place] [facility] [address] [id number] [place] [address]- 0374 Sep, [facility] [address] [id number] [place] [address]- 4164 Sep, [facility] [address] [id number] [place] [address]- 0339 Sep, [facility] [place] [facility] [address] [id number] [place] [address]- 1033 Sep, [facility] [address] [id number] [place] [address]- 7523 Jul, [facility] [place] [facility] [address] [id number] [place] [address]- 2441 Jul, [facility] [place] [facility] [address] [id number] [place] [address]- 5911 Jun, [facility] [place] [facility] [address] [id number] [place] [address]- 7189 Jun, [facility] [place] [facility] [address] [id number] [place] [address]- 2546 May, [facility] [place] [facility] [address] [id number] [place] [address]- 3950 May, [facility] [place] [facility] [address] [id number] [place] [address]- 9416 May, [facility] [place] [facility] [address] [id number] [place] [address]- 6823 May, [facility] [place] [facility] [address] [id number] [place] [address]- 5367 May, [facility] [place] [facility] [address] [id number] [place] [address]- 4791 May, [facility] [place] [facility] [address] [id number] [place] [address]- 6466 May, [facility] [place] [facility] [address] [id number] [place] 9064 Apr, [facility] [place] [facility] [address] [id number] [place] 4[address] Apr, [facility] [place] [facility] [address] [id number] [place] [address]- 9300 Apr, [facility] [place] [facility] [address] [id number] [place] [address]- 7568 Apr, [facility] [place] [facility] [address] [id number] [place] [address]- 5043 Apr, [facility] [place] [facility] [address] [id number] [place] [address]- 0400 Apr, [facility] [place] [facility] [address] [id number] [address]- 8162 Mar, [facility] [place] [facility] [address] [id number] [place] [address]- 6379 Feb, [facility] [place] [facility] [address] [id number] [place] [address]- 6306 Jan, [facility] [place] [facility] [address] [id number] [place] [address]- 9545 Jan, [facility] [place] [facility] [address] [id number] [place] [address]- 2546 Jan, [facility] [address] [id number] [place] [address]- 6257 Dec, [facility] [place] [facility] [address] [id number] [place] [address]- 2546 November, [facility] [address] [id number] [place] [address]- 2546 November, [facility] [place] [facility] [address] [id number] [place] [address]- 2546 November, [facility] [address] [id number] [place] [address]- 4236 November, [facility] [place] [facility] [address] [id number] [place] [address]- 1086 Oct, [facility] [address] [id number] [place] [address]- 1106 Aug, [facility] [place] [facility] [address] [id number] [place] [address]- 2880 Aug, [facility] [address] [id number] [place] [address]- 1446 Aug, [facility] [id number] [place] [address]- 0116 Aug, [facility] [place] [facility] [address] [place] [address]- 2546 Aug, [facility] [place] [facility] [address] [id number] [place] [address]- 2546 Aug, [facility] [place] [facility] [address] [id number] [place] [address]- 2546 Jul, [facility] [place] [facility] [address] [id number] [place] [address]- 2546 May, [facility] [place] [facility] [address] [facility] [id number] [place] [address]- 8236 May, [facility] [place] [facility] [address] [id number] [place] [address]- 7334 May, [facility] [place] [facility] [address] [id number] [place] [address]- 7186 May, [facility] [place] [facility] [address] [id number] [place] 3496 May, [facility] [place] [facility] [address] [id number] [place] [address]- 8126 May, [facility] [place] [facility] [address] [id number] [place] [address]- 0598 May, [facility] [place] [facility] [address] [id number] [place] [address]- 4303 Apr, [facility] [place] [facility] [address] [id number] [place] [address]- 4656 Apr, [facility] [place] [facility] [address] [id number] [place] [address]- 4376 Apr, [facility] [place] [facility] [address] [id number] [place] [address]- 3388 Apr, [facility] [place] [facility] [address] [facility] [id number] [place] [address]- 7754 Apr, [facility] [place] [facility] [address] [facility] [id number] [place] [address]- 5387 Sep, [facility] [place] [facility] [address] [id number], [place] [address]- 0529 Aug, [facility] [place] [facility] [address] [id number] [place] [address]- 4096 Aug, [facility] [place] [facility] [address] [id number] [place] [address]- 1326 15 Aug, 2011 [facility] [place] [facility] [address] [facility] [id number] [place] [address]- 1876 Aug, [facility] [place] [facility] [id number] [address]- 9626 Aug, [facility] [address] [address]- 9741 Jul, [facility] [address] [address]- 4116 Jul, [facility] [address] [address]- 9596 Jul, [facility] [address] [facility] [id number], [place] [address]- 0988 Jun, [facility] [address] 6595 Jun, [facility] [address] 7611 Jun, [facility] [address], [place] [address]- 0214 May, [facility] [address], [place] [address]- 5560 Apr, [facility] [address] 8232 Apr, [facility] [address] [address]187 Apr, [facility] [id number] [address]- 5496 Apr, IMMUNIZATIONS No Known Immunizations SOCIAL HISTORY Never Assessed REASON FOR VISIT Lab (walk-in) PLAN OF CARE VITAL SIGNS MEDICATIONS Unknown Medications RESULTS No Results PROCEDURES Procedure Date Ordered Result Body Site COMPREHEN METABOLIC PANEL Jul 07, 2017 LIPID PANEL Jul 07, 2017 VENIPUNCT, ROUTINE* Jul 07, 2017 GLYCATED HEMOGLOBIN TEST Jul 07, 2017 INSTRUCTIONS MEDICATIONS ADMINISTERED No Known Medications MEDICAL (GENERAL) HISTORY Type Description Date Medical History hypertension Surgical History x 3 Surgical History cholecystectomy Surgical History Chemical Stress Test, EKG, Echo 05/2016 Hospitalization History surgeries Hospitalization History UTI VC 05/2016
[2018-02-08] MEDS ORDERED: HURRICAINE EXT TUBE (BENZOCAINE) XX PRN (13:00)
--- NOTE | 2018-02-08 13:12 | Progress Note-Pre Operative ---
Pre-Operative Progress Note H&P Reviewed The H&P was reviewed, patient examined and no changes noted. Time Seen by Provider: 13:04 Date H&P Reviewed: Feb 08, 2018 Time H&P Reviewed: 13:07 Pre-Operative Diagnosis: Chronic Gastritis, Rectal Bleed EVELINA MEYERS DO Feb 08, 2018 13:12
[2018-02-08] MEDS ORDERED: LACTATED RINGERS 1,000 ML IV ONE (13:47)
[2018-02-08] MEDS ORDERED: GLYCOPYRROLATE 0.2 MG/ML (ROBINUL) 2 ML VIAL ONE (13:48)
[2018-02-08] MEDS ORDERED: LIDOCAINE TOPICAL 4% 50 ML BTL ONE (13:48)
[2018-02-08] MEDS ORDERED: MIDAZOLAM 5 MG/5 ML (VERSED) VIAL ONE (13:56)
[2018-02-08] MEDS ORDERED: PROPOFOL INJECTION 0 ML IV ONE (13:56)
[2018-02-08] MEDS ORDERED: LIDOCAINE TOPICAL 4% 50 ML BTL TP ONE (14:00)
[2018-02-08] MEDS ORDERED: GLYCOPYRROLATE 0.2 MG/ML (ROBINUL) 2 ML VIAL IV ONE (14:00)
[2018-02-08] MEDS ORDERED: PROPOFOL INJECTION 50 ML IV ONE (14:05)
--- NOTE | 2018-02-08 14:51 | Progress Note-Post Operative ---
Post-Operative Progess Note Surgeon (s)/Insurance Verification Clerk (s) Surgeon EVELINA MEYERS DO Insurance Verification Clerk: none Pre-Operative Diagnosis Chronic Gastritis, Rectal Bleed Post-Operative Diagnosis Same plus Asc Colon polyp Diverticula Internal hemorrhoids Procedure & Operative Findings Date of Procedure 02/08/18 Procedure Performed/Findings EGD with bx Colon with bx Anesthesia Type IV sedation by [facility] [employer] Estimated Blood Loss Estimated blood loss (mL): scant Specimens/Packing Specimens Removed Duodenal bx Antral bx Asc colon polyp bx EVELINA MEYERS DO Feb 08, 2018 14:51
--- NOTE | 2018-02-08 14:54 | Endoscopy Discharge Instruct ---
Endo Procedure/Findings Findings 1.: Gastritis 2.: Polyp 3.: Diverticulosis 4.: Internal Hemorrhoids Discharge Instructions - Activity: You might feel a little sleepy until tomorrow. This is due to the medicine you received to relax you. Until tomorrow, you should: NOT drive a car, operate machinery or power tools. NOT drink any alcoholic beverages. NOT make any important decisions or sign importortant papers. Do not return to work until tomorrow, unless otherwise instructed. Resume previous activities tomorrow. Diet: Start by taking liquids. If you tolerate liquids, advance to solid food. Make appointment for one week. Notify Physician - If you experience excessive bleeding, unusual abdominal pain, fever, or chest pain, contact your doctor immediately. Follow-Up: - I have received and understand the above instructions and will call my doctor if I have any further questions. Patient Signature Date Nurse Signature Other (Relationship) EVELINA MEYERS DO Feb 08, 2018 14:54
[2018-02-08 15:20] VITALS: BP 147/89
[2018-02-08 15:31] VITALS: BP 147/89
--- NOTE | 2018-02-08 22:09 | OPERATIVE REPORT ---
DATE OF SERVICE: PREOPERATIVE DIAGNOSES: 1. Chronic gastritis. 2. Rectal bleed. POSTOPERATIVE DIAGNOSES: 1. Gastritis. 2. Duodenitis. 3. Hiatal hernia. 4. Ascending colon polyp. 5. Diverticula. 6. Internal hemorrhoids. PROCEDURES: 1. EGD with biopsy. 2. Colonoscopy with cold biopsy. SURGEON: Duy Wolfe DO OCEANOGRAPHY PROFESSOR: None. ANESTHESIA: IV sedation by the SILVER LAP MACHINE TENDER. BLOOD LOSS: Scant. FLUIDS: Per anesthesia. SPECIMEN: One biopsy from the duodenum, one biopsy from the antrum, and biopsy of an ascending colon polyp was the third one. POSTOPERATIVE CONDITION: Stable. INDICATION FOR PROCEDURE: The patient is a 43-year-old female who has been having chronic heartburn and gastritis problems, needs a workup. Also, she had some rectal bleeding and needed a colonoscopy. FINDINGS: The patient had some mild inflammation in the duodenum and the antrum. She also had a small hiatal hernia in the stomach. In the colon, she had a small polyp. In the ascending colon, she had some diverticula and some internal hemorrhoids. PROCEDURE NOTE: After informed consent was obtained, the patient was brought to the endoscopy suite, placed on the bed in left lateral decubitus position. She was administered IV sedation by the SILVER LAP MACHINE TENDER who then monitored her vitals the entire time, heart rate, blood pressure and pulse ox and the scope was inserted down the mouth into the esophagus and down in the stomach. Upon entering the stomach, noted some inflammation in the antrum. I pushed into the duodenum and saw some inflammation, elected to do a biopsy in the duodenum. I then backed up a little bit and did a biopsy of the antrum. Retroflexed the scope, saw a small hiatal hernia, took a picture of this and then pulled the scope up into the esophagus at the GE junction, looked good. There was no creeping up of the Z-line, continued up the esophagus, it looked normal at the rest of the esophagus and then up the esophagus and out the mouth. Switched gloves and switched cameras, went to the other side and began the colonoscopy. Pushed the scope in, pushed to approximately 150 cm, able to get all the way to the cecum, took a picture of appendiceal orifice and noted the ileocecal valve. Then slowly withdrew the scope insufflating to look circumferentially at the marin looking at the cecum and up into the ascending colon. In the ascending colon, I saw small flat polyp, elected to do a biopsy of this. I then continued up to the hepatic flexure and then down the transverse colon. In the transverse colon, I saw a couple of small diverticula, continued down to the splenic flexure then into the descending colon, saw another small diverticulum and then down into the sigmoid colon and finally into the rectum, retroflexed in the rectal vault, saw some minimal internal hemorrhoids. The patient also had a little bit of external hemorrhoids, took a picture of the internal hemorrhoids, then removed the scope. The patient tolerated the procedure and she was recovered in the endoscopy suite. Job ID: [id number] DocumentID: [id number] Dictated Date: 02/08/2018 15:19:47 Talk Show Host Date: 02/08/2018 22:08:39 Dictated By: DO TAWANA SMITH
== END 2018-02-08 15:40 | disposition home or self-care (01) ==
LOC: ENDO 12:38
PROVIDERS: ATTEND Surgery
DX: K63.5 Polyp of colon (principal); K57.30 Diverticulosis of large intestine without perforation or abscess without bleeding; K64.8 Other hemorrhoids; K29.70 Gastritis, unspecified, without bleeding; K29.80 Duodenitis without bleeding; K44.9 Diaphragmatic hernia without obstruction or gangrene; I10 Essential (primary) hypertension; G47.33 Obstructive sleep apnea (adult) (pediatric); E66.01 Morbid (severe) obesity due to excess calories; Z68.43 Body mass index [BMI] 50.0-59.9, adult
CPT/HCPCS: 84703

== ENCOUNTER → 2018-04-13 | Outpatient (CLI) | payer MEDICAID ==
[~2018-04-13] MED LIST changes: -AMLO10TA2 PO; +AMLO10TA6 PO; -LOSA50TA36 PO; +LOSA50TA7 PO; +METF-397 PO; -METF500T5 PO
--- NOTE | 2018-04-13 18:06 | Diagnostic Imaging Report ---
INDICATION: Low back pain. TIME OF EXAM: 05:37 p.m. FINDINGS: Three views of the lumbar spine were obtained. Curvature and alignment is normal. Vertebral body heights and disc spaces are maintained. There is some mild degenerative disc disease at the T12-L1 and L1-L2 levels. No fracture is identified. There is no subluxation. IMPRESSION: Mild lumbar spondylosis. No acute bony abnormality is detected. Dictated by: Dictated on workstation # [id number]
--- NOTE | 2018-04-13 18:08 | Diagnostic Imaging Report ---
INDICATION: Acute pain of the left knee posteriorly. TIME OF EXAM: 05:32 p.m. FINDINGS: AP and lateral views of the left knee were obtained. Alignment is normal. Joint spaces are well maintained. Articular surfaces are smooth. There is mild spurring of the tibial spines. There are patellofemoral degenerative changes noted as well. No fracture, dislocation, or effusion is seen. IMPRESSION: Degenerative changes. No acute bony abnormality is detected. Dictated by: Dictated on workstation # [id number]
== END ==
LOC: RAD 16:47
PROVIDERS: ATTEND Internal Medicine
DX: M17.12 Unilateral primary osteoarthritis, left knee (principal); M47.816 Spondylosis without myelopathy or radiculopathy, lumbar region
CPT/HCPCS: 72100; 73560

== ENCOUNTER 2018-11-12 21:20 | Emergency (ER) | payer MEDICAID ==
[~2018-11-12] VITALS: Ht 157.5 cm; Wt 158.8 kg
[~2018-11-12 21:20] MED LIST changes: -AMLO10TA6 PO; +AMLO10TA7 PO; +LOSA50TA63 PO; -LOSA50TA7 PO
[2018-11-12] MEDS ORDERED: KETOROLAC 30 MG/ML VIAL IVP ONE (21:45)
[2018-11-12 21:53] LABS: BASOPHILS % (AUTO) 1 % (0-10); EOSINOPHILS # (AUTO) 0.3 10^3/uL (0.0-0.3); EOSINOPHILS % (AUTO) 4 % (0-10); HEMATOCRIT 41 % (35-52); HEMOGLOBIN 13.2 G/DL (11.5-16.0); LYMPHOCYTES # (AUTO) 2.6 X 10^3 (1.0-4.0); LYMPHOCYTES % (AUTO) 30 % (12-44); MEAN CORPUSCULAR HEMOGLOBIN 28 PG (25-34); MEAN CORPUSCULAR HGB CONC 33 G/DL (32-36); MEAN CORPUSCULAR VOLUME 85 FL (80-99); MEAN PLATELET VOLUME 9.3 FL (7.4-10.4); MONOCYTES # (AUTO) 0.9 X 10^3 (0.0-1.0); MONOCYTES % (AUTO) 10 % (0-12); NEUTROPHILS # (AUTO) 4.9 X 10^3 (1.8-7.8); NEUTROPHILS % (AUTO) 56 % (42-75); PLATELET COUNT 283 10^3/uL (130-400); RED CELL DISTRIBUTION WIDTH 13.4 % (10.0-14.5); WHITE BLOOD COUNT 8.8 10^3/uL (4.3-11.0)
[2018-11-12 22:13] LABS: PROTHROMBIN TIME PATIENT 13.4 SEC (12.2-14.7)
[2018-11-12 22:28] LABS: ALANINE AMINOTRANSFERASE 18 U/L (0-55); ALBUMIN 4.1 GM/DL (3.2-4.5); ALKALINE PHOSPHATASE 49 U/L (40-136); BILIRUBIN,TOTAL 0.3 MG/DL (0.1-1.0); BUN/CREATININE RATIO 14; CALCIUM 9.4 MG/DL (8.5-10.1); CARBON DIOXIDE 23 MMOL/L (21-32); CHLORIDE 105 MMOL/L (98-107); CREATININE SERUM 0.73 MG/DL (0.60-1.30); GFR ESTIMATED > 60; GLUCOSE 104 MG/DL (70-105); MAGNESIUM 2.4 MG/DL (1.8-2.4); POTASSIUM 3.7 MMOL/L (3.6-5.0); SODIUM 139 MMOL/L (135-145); TOTAL PROTEIN 7.2 GM/DL (6.4-8.2)
[2018-11-12] MEDS ORDERED: ENOXAPARIN 100 MG/1 ML (LOVENOX) SYR SC ONE (22:45)
--- NOTE | 2018-11-12 22:45 | ED Lower Extremity ---
General Chief Complaint: Lower Extremity Stated Complaint: PAIN IN LEFT LEG Allergies and Home Medications Allergies Coded Allergies: codeine (Verified Allergy, Severe, NECK SWELLING, 01/02/18) hydrochlorothiazide (Verified Allergy, Severe, NECK SWELLING, 01/02/18) Home Medications Amlodipine Besylate 10 Mg Tablet, 10 MG PO HS, (Reported) Diltiazem HCl 240 Mg Cap.er.24h, 240 MG PO DAILY, (Reported) Dulaglutide 1.5 Mg/0.5 Ml Pen.injctr, 1.5 MG SQ WEEK, (Reported) ON WEDNESDAYS Famotidine 40 Mg Tablet, 40 MG PO DAILY, (Reported) Fluticasone Propionate 9.9 Ml [place].susp, 1 SPRAY NS DAILY, (Reported) 1 SPRAY EACH NARE DAILY Loratadine 10 Mg Tablet, 10 MG PO DAILY, (Reported) Losartan Potassium 50 Mg Tablet, 50 MG PO DAILY, (Reported) Meloxicam 7.5 Mg Tablet, 7.5 MG PO DAILY, (Reported) Metformin HCl 500 Mg Tablet, 500 MG PO BID, (Reported) Pantoprazole Sodium 40 Mg Tablet.dr, 40 MG PO DAILY, (Reported) Propranolol HCl 10 Mg Tablet, 10 MG PO BID, (Reported) Spironolactone 25 Mg Tablet, 25 MG PO DAILY, (Reported) Past Tfeirdn-Sjswuh-Ikwvbg Hx Patient Social History 2nd Hand Smoke Exposure: No Recent Foreign Travel: No Contact w/Someone Who Travel: No Recent Hopitalizations: No Immunizations Up To Date Tetanus Booster (TDap): More than 5yrs PED Vaccines UTD: No Seasonal Allergies Seasonal Allergies: Yes Past Medical History Surgeries: Yes Section, Gallbladder Respiratory: Yes Pneumonia Currently Using CPAP: No Currently Using BIPAP: No Cardiac: Yes (HEART MURMUR A CHILD) Heart Murmur, Hypertension Neurological: Yes Headaches /Migraines Reproductive Disorders: No Sexually Transmitted Disease: No HIV/AIDS: No UTI-Chronic Gastrointestinal: No Gastroesophageal Reflux, Chronic Constipation, Chronic Diarrhea Musculoskeletal: No Endocrine: Yes (MORBID OBESTIY, INSULIN RESISTANCE) Diabetes, Non-Insulin dep HEENT: Yes Tonsilitis Loss of Vision: Bilateral Hearing Impairment: Denies Cancer: No Psychosocial: No Integumentary: No Blood Disorders: No Adverse Reaction/Blood Tranf: No (N/A) Family Medical History Arthritis Asthma 19 FATHER (copd) 19 MOTHER (copd) Cardiovascular disease 19 FATHER (chf) Diabetes mellitus 19 FATHER Hypertension 19 FATHER 19 MOTHER G8 BROTHER G8 SISTER No Pertinent Family Hx Physical Exam Vital Signs Capillary Refill : Height, Weight, BMI Height: 5'8.00" Weight: 335lbs. 0.0oz. 151.727913gy; 50.9 BMI Method:Stated Progress/Results/Core Measures Results/Orders Lab Results Laboratory Tests Test 11/12/18 21:50 Range/Units White Blood Count 8.8 4.3-11.0 10^3/uL Red Blood Count 4.78 4.35-5.85 10^6/uL Hemoglobin 13.2 11.5-16.0 G/DL Hematocrit 41 35-52 % Mean Corpuscular Volume 85 80-99 FL Mean Corpuscular Hemoglobin 28 25-34 PG Mean Corpuscular Hemoglobin Concent 33 32-36 G/DL Red Cell Distribution Width 13.4 10.0-14.5 % Platelet Count 283 130-400 10^3/uL Mean Platelet Volume 9.3 7.4-10.4 FL Neutrophils (%) (Auto) 56 42-75 % Lymphocytes (%) (Auto) 30 12-44 % Monocytes (%) (Auto) 10 0-12 % Eosinophils (%) (Auto) 4 0-10 % Basophils (%) (Auto) 1 0-10 % Neutrophils # (Auto) 4.9 1.8-7.8 X 10^3 Lymphocytes # (Auto) 2.6 1.0-4.0 X 10^3 Monocytes # (Auto) 0.9 0.0-1.0 X 10^3 Eosinophils # (Auto) 0.3 0.0-0.3 10^3/uL Basophils # (Auto) 0.0 0.0-0.1 10^3/uL Prothrombin Time 13.4 12.2-14.7 SEC INR Comment 1.0 0.8-1.4 Activated Partial Thromboplast Time 40 H 24-35 SEC Sodium Level 139 135-145 MMOL/L Potassium Level 3.7 3.6-5.0 MMOL/L Chloride Level 105 98-107 MMOL/L Carbon Dioxide Level 23 21-32 MMOL/L Anion Gap 11 5-14 MMOL/L Blood Urea Nitrogen 10 7-18 MG/DL Creatinine 0.73 0.60-1.30 MG/DL Estimat Glomerular Filtration Rate > 60 BUN/Creatinine Ratio 14 Glucose Level 104 70-105 MG/DL Calcium Level 9.4 8.5-10.1 MG/DL Corrected Calcium 9.3 8.5-10.1 MG/DL Magnesium Level 2.4 1.8-2.4 MG/DL Total Bilirubin 0.3 0.1-1.0 MG/DL Aspartate Amino Transf (AST/SGOT) 18 5-34 U/L Alanine Aminotransferase (ALT/SGPT) 18 0-55 U/L Alkaline Phosphatase 49 40-136 U/L B-Type Natriuretic Peptide 21.6 <100.0 PG/ML Total Protein 7.2 6.4-8.2 GM/DL Albumin 4.1 3.2-4.5 GM/DL Serum Test, Qualitative NEGATIVE NEGATIVE My Orders Orders - ANDREEA WASHINGTON DO Ed Iv/Invasive Line Start (11/12/18 21:38) Tibia/Fibula, Left, 2 Views (11/12/18 21:38) BNP (11/12/18 21:38) Cbc With Automated Diff (11/12/18 21:38) Comprehensive Metabolic Panel (11/12/18 21:38) Magnesium (11/12/18 21:38) Protime With Inr (11/12/18 21:38) Partial Thromboplastin Time (11/12/18 21:38) Ketorolac Injection (Toradol Injection) (11/12/18 21:45) Hcg,Qualitative Serum (11/12/18 21:38) Enoxaparin Injection (Lovenox Injection) (11/12/18 22:45) Medications Given in ED Current Medications Medications Dose Ordered Sig/Minerva Route Start Time Stop Time Status Last Admin Dose Admin Ketorolac Tromethamine 30 mg ONCE ONCE IVP 11/12/18 21:45 11/12/18 21:46 DC 11/12/18 22:02 30 MG Departure Impression Primary Impression: Pain of left calf Disposition: 01 HOME, SELF-CARE Condition: Stable Departure-Patient Inst. Referrals: [facility] (PCP) Primary Care Physician CARISA KHAN (Family) Primary Care Physician Patient Instructions: Lower Extremity Muscle Strain (DC) Add. Discharge Instructions: MOIST HEAT TO AREA AT 20 MINUTE INTERVALS TYLENOL AND MOTRIN NEEDED FOR PAIN CALL IN AM TO SCHEDULE OUTPATIENT ULTRASOUND OF LEFT LEG FOLLOW UP WITH YOUR DR AFTER YOUR ULTRASOUND FOR TEST RESULTS All discharge instructions reviewed with patient and/or family. Voiced understanding. ANDREEA WASHINGTON DO Nov 12, 2018 22:45
[2018-11-12] MEDS ORDERED: ENOXAPARIN 80 MG/0.8 ML (LOVENOX) SYR ONE (22:53)
[2018-11-12] MEDS ORDERED: ENOXAPARIN 100 MG/1 ML (LOVENOX) SYR ONE (22:53)
[2018-11-12 23:00] VITALS: BP 180/101
--- NOTE | 2018-11-13 07:30 | Diagnostic Imaging Report ---
INDICATION: Left lower leg pain. COMPARISON: None available. TECHNIQUE: AP and lateral views of the left tibia and fibula. FINDINGS: No acute fracture or periosteal reaction. No focal osseous lesion. The knee and ankle are normal in alignment. Mild knee osteoarthritis. No abnormal soft tissue mineralizations or radiopaque foreign bodies. IMPRESSION: No acute abnormality in the left tibia-fibula by radiography. Dictated by: Dictated on workstation # [id number]
== END 2018-11-12 23:00 | disposition home or self-care (01) ==
LOC: EDUNIT# 21:20 → ER 21:22
DX: M79.662 Pain in left lower leg (principal); I10 Essential (primary) hypertension; K21.9 Gastro-esophageal reflux disease without esophagitis; E66.01 Morbid (severe) obesity due to excess calories; E11.9 Type 2 diabetes mellitus without complications; Z82.49 Family history of ischemic heart disease and other diseases of the circulatory system; Z87.19 Personal history of other diseases of the digestive system; Z88.5 Allergy status to narcotic agent; Z68.44 Body mass index [BMI] 60.0-69.9, adult; Z88.8 Allergy status to other drugs, medicaments and biological substances; Z79.51 Long term (current) use of inhaled steroids; Z79.84 Long term (current) use of oral hypoglycemic drugs; Z98.890 Other specified postprocedural states; Z87.01 Personal history of pneumonia (recurrent)
CPT/HCPCS: 36415; 73590; 80053; 83735; 83880; 84703; 85025; 85610; 85730

== ENCOUNTER 2018-12-04 02:25 | Emergency (ER) | payer MEDICAID ==
[~2018-12-04] VITALS: Ht 172.7 cm; Wt 166.0 kg
[2018-12-04] MEDS ORDERED: fentaNYL INJECTION 100 MCG/2 ML AMP IVP ONE ×2 (02:45→04:00)
[2018-12-04] MEDS ORDERED: ONDANSETRON 4 MG/2 ML (SDV) Z0FRAN IVP ONE (02:45)
[2018-12-04 02:51] LABS: BASOPHILS % (AUTO) 1 % (0-10); EOSINOPHILS # (AUTO) 0.4 10^3/uL (0.0-0.3); EOSINOPHILS % (AUTO) 4 % (0-10); HEMATOCRIT 42 % (35-52); HEMOGLOBIN 13.6 G/DL (11.5-16.0); LYMPHOCYTES # (AUTO) 2.6 X 10^3 (1.0-4.0); LYMPHOCYTES % (AUTO) 30 % (12-44); MEAN CORPUSCULAR HEMOGLOBIN 28 PG (25-34); MEAN CORPUSCULAR HGB CONC 33 G/DL (32-36); MEAN CORPUSCULAR VOLUME 84 FL (80-99); MEAN PLATELET VOLUME 9.4 FL (7.4-10.4); MONOCYTES # (AUTO) 0.7 X 10^3 (0.0-1.0); MONOCYTES % (AUTO) 8 % (0-12); NEUTROPHILS % (AUTO) 57 % (42-75); PLATELET COUNT 270 10^3/uL (130-400); RED CELL DISTRIBUTION WIDTH 13.7 % (10.0-14.5); WHITE BLOOD COUNT 8.7 10^3/uL (4.3-11.0)
[2018-12-04] MEDS ORDERED: NS IV 1000 ML 1,000 ML IV ONE (02:55)
[2018-12-04 03:11] LABS: BILIRUBIN,TOTAL 0.3 MG/DL (0.1-1.0); CALCIUM 9.3 MG/DL (8.5-10.1); CREATININE SERUM 1.02 MG/DL (0.60-1.30)
[2018-12-04 03:27] LABS: BILIRUBIN,URINE NEGATIVE (NEGATIVE); CLARITY,URINE CLEAR; COLOR,URINE YELLOW; GLUCOSE, URINE (UA) NEGATIVE (NEGATIVE); KETONES,URINE NEGATIVE (NEGATIVE); LEUKOCYTE ESTERASE ,URINE 1+ (NEGATIVE); NITRITE,URINE NEGATIVE (NEGATIVE); PH,URINE 7 (5-9); PROTEIN,URINE NEGATIVE (NEGATIVE); UROBILINOGEN,URINE NORMAL (NORMAL)
[2018-12-04 03:43] LABS: BACTERIA,URINE FEW /HPF; SQUAMOUS EPITHELIAL CELL,UR 0-2 /HPF; WBC,URINE RARE /HPF
--- NOTE | 2018-12-04 03:52 | ED Abdominal Pain ---
General Chief Complaint: Back Problems Stated Complaint: LOWER BACK PAIN AND STOMACH Nursing Triage Note: AMBULATORY TO ED WITH A LIST OF COMPLAINTS INCLUDING LOWER BACK PAIN, NAUSEA, ABD PAIN, LEFT LEG PAIN. STATES SHE IS SUPPOSED TO HAVE MRI OF LOWER BACK SOON R/T LEFT LEG PAIN AND BACK PAIN. DENIES INJURY. NORMAL VOIDING AND BM PATTERNS. Sepsis Screen: No Definite Risk Source of Information: Patient Exam Limitations: No Limitations History of Present Illness Date Seen by Provider: December 04, 2018 Time Seen by Provider: 02:31 Initial Comments This 43-year-old woman presents to the emergency room with fairly sudden onset of pain in the low back radiating across both sides and into the lower abdomen starting about 21:30. She had a normal bowel movement after pain started but that did not relieve her pain. She reports her urine smelled foul yesterday. She denies any vomiting or diarrhea but she does feel quite nauseated. She is afebrile. She denies any history of kidney stones. The pain reminds her of the pain she had prior to cholecystectomy. Patient states she has a pending MRI of the lumbar spine because of pain she has been experiencing deep in the left leg. No bowel or bladder dysfunction. Allergies and Home Medications Allergies Coded Allergies: codeine (Verified Allergy, Severe, NECK SWELLING, 01/02/18) hydrochlorothiazide (Verified Allergy, Severe, NECK SWELLING, 01/02/18) Home Medications Amlodipine Besylate 10 Mg Tablet, 10 MG PO HS, (Reported) Diltiazem HCl 240 Mg Cap.er.24h, 240 MG PO DAILY, (Reported) Dulaglutide 1.5 Mg/0.5 Ml Pen.injctr, 1.5 MG SQ WEEK, (Reported) ON WEDNESDAYS Famotidine 40 Mg Tablet, 40 MG PO DAILY, (Reported) Fluticasone Propionate 9.9 Ml [place].susp, 1 SPRAY NS DAILY, (Reported) 1 SPRAY EACH NARE DAILY Hydrocodone Bit/Acetaminophen 1 Tab Tab, 1-2 EACH PO Q6H PRN for PAIN-MODERATE Prescribed by: ALINE BAH on 12/04/18 0538 Loratadine 10 Mg Tablet, 10 MG PO DAILY, (Reported) Losartan Potassium 50 Mg Tablet, 50 MG PO DAILY, (Reported) Meloxicam 7.5 Mg Tablet, 7.5 MG PO DAILY, (Reported) Metformin HCl 500 Mg Tablet, 500 MG PO BID, (Reported) Pantoprazole Sodium 40 Mg Tablet.dr, 40 MG PO DAILY, (Reported) Prednisone 20 Mg Tab, 20 MG PO DAILY Prescribed by: ALINE BAH on 12/04/18 0538 Propranolol HCl 10 Mg Tablet, 10 MG PO BID, (Reported) Spironolactone 25 Mg Tablet, 25 MG PO DAILY, (Reported) Patient Home Medication List Home Medication List Reviewed: Yes Review of Systems Review of Systems Constitutional: no symptoms reported EENTM: No Symptoms Reported Respiratory: No Symptoms Reported Cardiovascular: No Symptoms Reported Gastrointestinal: See HPI Genitourinary: No Symptoms Reported Musculoskeletal: see HPI Skin: no symptoms reported Psychiatric/Neurological: No Symptoms Reported Endocrine: No Symptoms Reported Hematologic/Lymphatic: No Symptoms Reported Past Xiahngd-Dhjaco-Exibrr Hx Past Med/Social Hx: Reviewed Nursing Past Med/Soc Hx Patient Social History Alcohol Use: Denies Use Recreational Drug Use: No Smoking Status: Never a Smoker 2nd Hand Smoke Exposure: No Recent Foreign Travel: No Contact w/Someone Who Travel: No Recent Infectious Disease Expo: No Recent Hopitalizations: No Immunizations Up To Date Tetanus Booster (TDap): More than 5yrs PED Vaccines UTD: No Seasonal Allergies Seasonal Allergies: Yes Past Medical History Surgeries: Yes Section, Gallbladder Respiratory: Yes Pneumonia Currently Using CPAP: No Currently Using BIPAP: No Cardiac: Yes (HEART MURMUR A CHILD) Heart Murmur, Hypertension Neurological: Yes Headaches /Migraines Reproductive Disorders: No Sexually Transmitted Disease: No HIV/AIDS: No UTI-Chronic Gastrointestinal: Yes Gastroesophageal Reflux, Chronic Constipation, Chronic Diarrhea Musculoskeletal: No Endocrine: Yes (MORBID OBESTIY, INSULIN RESISTANCE) Diabetes, Non-Insulin dep HEENT: Yes Tonsilitis Loss of Vision: Bilateral Hearing Impairment: Denies Cancer: No Psychosocial: No Integumentary: Yes (RASH) Blood Disorders: Yes (ANEMIA) Adverse Reaction/Blood Tranf: No (N/A) Family Medical History Reviewed Nursing Family Hx Arthritis Asthma 19 FATHER (copd) 19 MOTHER (copd) Cardiovascular disease 19 FATHER (chf) Diabetes mellitus 19 FATHER Hypertension 19 FATHER 19 MOTHER G8 BROTHER G8 SISTER No Pertinent Family Hx Physical Exam Vital Signs Vital Signs - First Documented 12/04/18 02:33 Temp 97.7 Pulse 84 Resp 18 B/P (MAP) 178/110 (132) Capillary Refill : Less Than 3 Seconds Height/Weight/BMI Height: 5'8.00" Weight: 354lbs. 0.0oz. 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, no motor/sensory deficits, alert, normal mood/affect, oriented x 3 Skin: normal color, warm/dry Progress/Results/Core Measures Results/Orders Lab Results Laboratory Tests Test 12/04/18 02:43 12/04/18 03:22 Range/Units White Blood Count 8.7 4.3-11.0 10^3/uL Red Blood Count 4.93 4.35-5.85 10^6/uL Hemoglobin 13.6 11.5-16.0 G/DL Hematocrit 42 35-52 % Mean Corpuscular Volume 84 80-99 FL Mean Corpuscular Hemoglobin 28 25-34 PG Mean Corpuscular Hemoglobin Concent 33 32-36 G/DL Red Cell Distribution Width 13.7 10.0-14.5 % Platelet Count 270 130-400 10^3/uL Mean Platelet Volume 9.4 7.4-10.4 FL Neutrophils (%) (Auto) 57 42-75 % Lymphocytes (%) (Auto) 30 12-44 % Monocytes (%) (Auto) 8 0-12 % Eosinophils (%) (Auto) 4 0-10 % Basophils (%) (Auto) 1 0-10 % Neutrophils # (Auto) 5.0 1.8-7.8 X 10^3 Lymphocytes # (Auto) 2.6 1.0-4.0 X 10^3 Monocytes # (Auto) 0.7 0.0-1.0 X 10^3 Eosinophils # (Auto) 0.4 H 0.0-0.3 10^3/uL Basophils # (Auto) 0.0 0.0-0.1 10^3/uL Sodium Level 138 135-145 MMOL/L Potassium Level 4.0 3.6-5.0 MMOL/L Chloride Level 106 98-107 MMOL/L Carbon Dioxide Level 21 21-32 MMOL/L Anion Gap 11 5-14 MMOL/L Blood Urea Nitrogen 9 7-18 MG/DL Creatinine 1.02 0.60-1.30 MG/DL Estimat Glomerular Filtration Rate 59 BUN/Creatinine Ratio 9 Glucose Level 97 70-105 MG/DL Calcium Level 9.3 8.5-10.1 MG/DL Corrected Calcium 9.3 8.5-10.1 MG/DL Total Bilirubin 0.3 0.1-1.0 MG/DL Aspartate Amino Transf (AST/SGOT) 26 5-34 U/L Alanine Aminotransferase (ALT/SGPT) 20 0-55 U/L Alkaline Phosphatase 48 40-136 U/L Total Protein 7.0 6.4-8.2 GM/DL Albumin 4.0 3.2-4.5 GM/DL Lipase 31 8-78 U/L Serum Test, Qualitative NEGATIVE NEGATIVE Urine Color YELLOW Urine Clarity CLEAR Urine pH 7 5-9 Urine Specific [place] 1.010 L 1.016-1.022 Urine Protein NEGATIVE NEGATIVE Urine Glucose (UA) NEGATIVE NEGATIVE Urine Ketones NEGATIVE NEGATIVE Urine Nitrite NEGATIVE NEGATIVE Urine Bilirubin NEGATIVE NEGATIVE Urine Urobilinogen NORMAL NORMAL MG/DL Urine Leukocyte Esterase 1+ H NEGATIVE Urine RBC (Auto) NEGATIVE NEGATIVE Urine RBC NONE /HPF Urine WBC RARE /HPF Urine Squamous Epithelial Cells 0-2 /HPF Urine Crystals NONE /LPF Urine Bacteria FEW H /HPF Urine Casts NONE /LPF Urine Mucus NEGATIVE /LPF Urine Culture Indicated NO My Orders Orders - ALINE DECKER MD Cbc With Automated Diff (12/04/18 02:37) Comprehensive Metabolic Panel (12/04/18 02:37) Hcg,Qualitative Serum (12/04/18 02:37) Lipase (12/04/18 02:37) Ua Culture If Indicated (12/04/18 02:37) Ed Iv/Invasive Line Start (12/04/18 02:37) Ondansetron Injection (Zofran Injectio (12/04/18 02:45) Fentanyl Injection (Sublimaze Injection (12/04/18 02:45) Ns Iv 1000 Ml (Sodium Chloride 0.9%) (12/04/18 02:55) Fentanyl Injection (Sublimaze Injection (12/04/18 04:00) Ct Abdomen/Pelvis W (12/04/18 03:52) Ct Lumbar Spine Wo (12/04/18 03:52) Ketorolac Injection (Toradol Injection) (12/04/18 05:00) Prednisone Tablet (Deltasone Tablet) (12/04/18 05:45) Medications Given in ED Current Medications Medications Dose Ordered Sig/Minerva Route Start Time Stop Time Status Last Admin Dose Admin Fentanyl Citrate 50 mcg ONCE ONCE IVP 12/04/18 02:45 12/04/18 02:46 DC 12/04/18 02:44 50 MCG Fentanyl Citrate 75 mcg ONCE ONCE IVP 12/04/18 04:00 12/04/18 04:01 DC 12/04/18 03:57 75 MCG Ketorolac Tromethamine 30 mg ONCE ONCE IVP 12/04/18 05:00 12/04/18 05:01 DC 12/04/18 05:02 30 MG Ondansetron HCl 8 mg ONCE ONCE IVP 12/04/18 02:45 12/04/18 02:46 DC 12/04/18 02:44 8 MG Sodium Chloride 1,000 ml @ 0 mls/hr Q0M ONCE IV 12/04/18 02:55 12/04/18 02:56 DC 12/04/18 03:01 999 MLS/HR Vital Signs/I&O 12/04/18 02:33 Temp 97.7 Pulse 84 Resp 18 B/P (MAP) 178/110 (132) Blood Pressure Mean: 132 Progress Progress Note #1: Time: 04:17 Progress Note Patient was seen and examined upon arrival. Zofran and fentanyl were given for symptom control. Labs and urinalysis revealed no significant abnormalities. Further workup is being pursued with CT scan. An additional dose of fentanyl was given for rebound pain. Progress Note #2: Time: 05:07 Progress Note CTs revealed lumbar stenosis and disc bulging as well as a left ovarian cyst. Each of these pathologies could be contributing to her pain. Toradol is being given for additional pain management. Progress Note #3: Time: 05:38 Progress Note Pain was reduced to 2/10 after Toradol. Diagnostic Imaging Diagonstic Imaging: CT Plain Films/CT/US/NM/MRI: abdomen, pelvis Comments CT abdomen and pelvis viewed by me and [facility] report reviewed. There is a left ovarian cyst. There is also a peripherally calcified cystic lesion in the posterior capsular and lower right hepatic lobe unchanged from prior study. Ovarian cyst is likely the cause of her pain. Diagonstic Imaging: CT Plain Films/CT/US/NM/MRI: other (lumbar spine) Comments CT lumbar spine viewed by me and [facility] report reviewed. She has disc bulging and spinal stenosis in the L3 through S1 region as well as some possible sacroiliac disease. Departure Impression Primary Impression: Lower abdominal pain Additional Impressions: Left ovarian cyst Bulging lumbar disc Lumbar spinal stenosis Qualified Codes: M48.061 - Spinal stenosis, lumbar region without neurogenic claudication Disposition: HOME, SELF-CARE Condition: Improved Departure-Patient Inst. Decision time for Depature: 05:30 Referrals: [facility] (PCP) Primary Care Physician CARISA KHAN (Family) Primary Care Physician Patient Instructions: Ovarian Cysts, Spinal Stenosis Add. Discharge Instructions: Use ibuprofen up to 600 mg every 6 hours as needed for primary pain control. Add hydrocodone as prescribed for pain not controlled by ibuprofen. Follow-up with your primary care provider as soon as possible and keep your appointment for the MRI. Return to care if you have worsening symptoms, especially if you develop weakness in your legs, numbness in the groin region, or difficulty controlling your bowels or your bladder. Increase metformin to 1000 mg twice daily while taking prednisone. All discharge instructions reviewed with patient and/or family. Voiced unde rstanding. Scripts Hydrocodone Bit/Acetaminophen (Hydrocodone/Acetaminophen 5/325mg Tablet) 1 Tab Tab 1-2 EACH PO Q6H PRN for PAIN-MODERATE MDD 10, #14 TAB 0 Refills Prov: ALINE DECKER MD 12/04/18 Prednisone (Prednisone) 20 Mg Tab 20 MG PO DAILY, #4 TAB 0 Refills Prov: ALINE DECKER MD 12/04/18 Copy Copies To 1: NAHOMY PETERSON JOSHUA T MD December 04, 2018 03:52
[2018-12-04] MEDS ORDERED: KETOROLAC 30 MG/ML VIAL IVP ONE (05:00)
[2018-12-04] MEDS ORDERED: ACHD5005 PO (05:38)
[2018-12-04] MEDS ORDERED: PRD20T PO (05:38)
[2018-12-04 05:40] VITALS: BP 157/105
[2018-12-04] MEDS ORDERED: predniSONE 20 MG TAB PO ONE (05:45)
--- NOTE | 2018-12-04 06:30 | Diagnostic Imaging Report ---
PROCEDURE: CT lumbar spine without contrast. TECHNIQUE: Multiple contiguous axial images were obtained through the lumbar spine without the use of intravenous contrast. Sagittal and coronal reformations were then performed. Auto Exposure Controls were utilized during the CT exam to meet ALARA standards for radiation dose reduction. INDICATION: Low back pain. COMPARISON: None. FINDINGS: Alignment is normal. There is no subluxation or fracture. There is minimal degenerative change seen within the L4-L5 and L5-S1 disc spaces and facet joints. There is no osseous lesion. Sclerotic changes are seen involving the right SI joint. There is no paraspinous mass. IMPRESSION: 1. Minimal degenerative disc disease and facet joint arthropathy L4-L5 and L5-S1. 2. Nonspecific sclerosis of the right SI joint. Agree with preliminary report. Dictated by: Dictated on workstation # [id number]
--- NOTE | 2018-12-04 06:54 | Diagnostic Imaging Report ---
PROCEDURE: CT abdomen and pelvis with contrast. TECHNIQUE: Multiple contiguous axial images were obtained through the abdomen and pelvis after administration of intravenous contrast. Auto Exposure Controls were utilized during the CT exam to meet ALARA standards for radiation dose reduction. INDICATION: Generalized abdominal pain. COMPARISON: 12/05/2017 FINDINGS: The lung bases are clear. Exophytic nodular lesion of the inferior right hepatic lobe of the liver is unchanged. The gallbladder is surgically absent. The solid organs and vascular structures are otherwise unremarkable. There is a stable nodular focus within the mesenteric fat in the right side of the abdomen which is stable as well. The appendix is normal. The uterus is intact. There is a 2.5 cm physiologic follicle in the left ovary. There is no free air or free fluid. No lymphadenopathy seen. Distal ureters and urinary bladder are normal. Osseous structures are stable. IMPRESSION: 1. Surgically absent gallbladder. 2. Physiologic follicle in left ovary measuring 2.5 cm. 3. Stable nodular focus within the liver and right side of the intra-abdominal region, likely benign. 4. No inflammatory process identified. Agree with preliminary report. Dictated by: Dictated on workstation # [id number]
== END 2018-12-04 05:43 | disposition home or self-care (01) ==
LOC: EDUNIT# 02:25 → ER 02:27
DX: N83.202 Unspecified ovarian cyst, left side (principal); M48.061 Spinal stenosis, lumbar region without neurogenic claudication; M51.26 Other intervertebral disc displacement, lumbar region; I10 Essential (primary) hypertension; K21.9 Gastro-esophageal reflux disease without esophagitis; E66.01 Morbid (severe) obesity due to excess calories; E11.9 Type 2 diabetes mellitus without complications; D64.9 Anemia, unspecified; Z82.49 Family history of ischemic heart disease and other diseases of the circulatory system; Z87.19 Personal history of other diseases of the digestive system; Z87.440 Personal history of urinary (tract) infections; Z88.5 Allergy status to narcotic agent; Z88.8 Allergy status to other drugs, medicaments and biological substances; Z90.49 Acquired absence of other specified parts of digestive tract; Z79.51 Long term (current) use of inhaled steroids; Z79.52 Long term (current) use of systemic steroids; Z79.84 Long term (current) use of oral hypoglycemic drugs; Z98.890 Other specified postprocedural states; Z87.01 Personal history of pneumonia (recurrent)
CPT/HCPCS: 36415; 72131; 74177; 80053; 81000; 83690; 84703; 85025

== ENCOUNTER → 2018-12-06 | Outpatient (CLI) | payer MEDICAID ==
--- NOTE | 2018-12-06 16:42 | Diagnostic Imaging Report ---
PROCEDURE: MRI lumbar spine. TECHNIQUE: Multiplanar, multisequence MRI of the lumbar spine was performed without contrast. INDICATION: Low back pain. COMPARISON: No prior MRI examinations are available for comparison. FINDINGS: The plain film examination of the lumbar spine performed on 04/13/2018 failed to show any sign an acute abnormality. On the T2 sagittal images of this exam, the vertebral body heights and alignment are within normal limits and similar to the prior study. The intervertebral spaces are fairly well-maintained, although there is desiccation of the disc at every level, particularly L4-L5 and L5-S1. At the L5-S1 level, there is a disc bulge centrally. The disc effaces the ventral aspect of the thecal sac but does not produce spinal stenosis. There does not appear to be any significant neuroforaminal narrowing at this level either. At the L4-L5 level, there is also a disc bulge centrally. The AP diameter of the thecal sac is narrowed to 11.4 mm. There is no significant neuroforaminal narrowing at this level. The remainder of the lumbar spine is unremarkable for spinal stenosis or nerve root encroachment. There is no abnormal signal arising from the cord or the vertebral bodies to indicate acute abnormality. There is no sign of a paraspinal mass. IMPRESSION: 1. There is moderate degenerative disc disease at L4-L5 and L5-S1. There is no evidence for spinal stenosis or nerve root encroachment at either of these two levels or at any other level of the lumbar spine. 2. There is no sign of an acute bony abnormality or cord lesion. Dictated by: Dictated on workstation # [id number]
== END ==
LOC: RAD 15:37
PROVIDERS: ATTEND Nurse Practitioner Community Health
DX: M51.37 Other intervertebral disc degeneration, lumbosacral region (principal)
CPT/HCPCS: 72148

== ENCOUNTER 2018-12-07 15:53 | Emergency (ER) | payer MEDICAID ==
[~2018-12-07] VITALS: Ht 175.3 cm; Wt 160.6 kg
--- NOTE | 2018-12-07 16:26 | ED Headache ---
General Chief Complaint: Head/Cervical Problems Stated Complaint: HEADACHE Nursing Triage Note: PT REPORTS BASS AND NAUSEA SINCE SHE HAD AN MRI YESTERDAY OF HER LUMBAR SPINE. PT REPORTS SHE HAS TAKEN IBUPROFEN, HYDROCODONE, ZOFRAN, AND BACLOFEN WITHOUT RELIEF. Nursing Sepsis Screen: No Definite Risk Source: patient Exam Limitations: no limitations History of Present Illness Date Seen by Provider: December 07, 2018 Time Seen by Provider: 16:24 Initial Comments To ER with a frontal headache that began yesterday evening associated with photophobia and nausea. She does have a history of headaches and this feels similar but it won't go away despite her use of ibuprofen Zofran hydrocodone and baclofen. No fevers or chills. Timing/Duration: 24 hours Severity/Quality: moderate Location: frontal Prior Headaches/Recent Trauma: occasional headaches Modifying Factors: worse with exposure to light Associated Symptoms: nasal congestion (nausea no vomiting); No seizures, No stiff neck, No vision changes Allergies and Home Medications Allergies Coded Allergies: codeine (Verified Allergy, Severe, NECK SWELLING, 01/02/18) hydrochlorothiazide (Verified Allergy, Severe, NECK SWELLING, 01/02/18) Home Medications Amlodipine Besylate 10 Mg Tablet, 10 MG PO HS, (Reported) Diltiazem HCl 240 Mg Cap.er.24h, 240 MG PO DAILY, (Reported) Dulaglutide 1.5 Mg/0.5 Ml Pen.injctr, 1.5 MG SQ WEEK, (Reported) ON WEDNESDAYS Famotidine 40 Mg Tablet, 40 MG PO DAILY, (Reported) Fluticasone Propionate 9.9 Ml [place].susp, 1 SPRAY NS DAILY, (Reported) 1 SPRAY EACH NARE DAILY Hydrocodone Bit/Acetaminophen 1 Tab Tab, 1-2 EACH PO Q6H PRN for PAIN-MODERATE Prescribed by: ALINE BAH on 12/04/18537 Loratadine 10 Mg Tablet, 10 MG PO DAILY, (Reported) Losartan Potassium 50 Mg Tablet, 50 MG PO DAILY, (Reported) Meloxicam 7.5 Mg Tablet, 7.5 MG PO DAILY, (Reported) Metformin HCl 500 Mg Tablet, 500 MG PO BID, (Reported) Pantoprazole Sodium 40 Mg Tablet.dr, 40 MG PO DAILY, (Reported) Prednisone 20 Mg Tab, 20 MG PO DAILY Prescribed by: ALINE BAH on 12/04/18537 Propranolol HCl 10 Mg Tablet, 10 MG PO BID, (Reported) Spironolactone 25 Mg Tablet, 25 MG PO DAILY, (Reported) Patient Home Medication List Home Medication List Reviewed: Yes Review of Systems Review of Systems Constitutional: see HPI Eyes: No Symptoms Reported Ears, Nose, Mouth, Throat: no symptoms reported Respiratory: no symptoms reported Cardiovascular: no symptoms reported Gastrointestinal: nausea Genitourinary: no symptoms reported Musculoskeletal: no symptoms reported Skin: no symptoms reported Psychiatric/Neurological: See HPI, Headache Past Ncoyzpb-Cmulzy-Seikkl Hx Patient Social History Alcohol Use: Denies Use Recreational Drug Use: No Smoking Status: Never a Smoker 2nd Hand Smoke Exposure: No Recent Foreign Travel: No Contact w/Someone Who Travel: No Recent Infectious Disease Expo: No Recent Hopitalizations: No Physical Abuse: No Sexual Abuse: No Mistreated: No Fear: No Immunizations Up To Date Tetanus Booster (TDap): More than 5yrs PED Vaccines UTD: No Seasonal Allergies Seasonal Allergies: Yes Past Medical History Surgeries: Yes Section, Gallbladder Respiratory: Yes Pneumonia Currently Using CPAP: No Currently Using BIPAP: No Cardiac: Yes (HEART MURMUR A CHILD) Heart Murmur, Hypertension Neurological: Yes Headaches /Migraines Reproductive Disorders: No Sexually Transmitted Disease: No HIV/AIDS: No UTI-Chronic Gastrointestinal: Yes Gastroesophageal Reflux, Chronic Constipation, Chronic Diarrhea Musculoskeletal: No Endocrine: Yes (MORBID OBESTIY, INSULIN RESISTANCE) Diabetes, Non-Insulin dep HEENT: Yes Tonsilitis Loss of Vision: Bilateral Hearing Impairment: Denies Cancer: No Psychosocial: No Integumentary: Yes (RASH) Blood Disorders: Yes (ANEMIA) Adverse Reaction/Blood Tranf: No (N/A) Family Medical History Arthritis Asthma 19 FATHER (copd) 19 MOTHER (copd) Cardiovascular disease 19 FATHER (chf) Diabetes mellitus 19 FATHER Hypertension 19 FATHER 19 MOTHER G8 BROTHER G8 SISTER No Pertinent Family Hx Physical Exam Vital Signs Vital Signs - First Documented 12/07/18 16:10 Temp 98.3 Pulse 82 Resp 18 B/P (MAP) 175/106 (129) Pulse Ox 95 Capillary Refill : Less Than 3 Seconds Height, Weight, BMI Height: 5'9.00" Weight: 354lbs. 0.0oz. 160.316224my; 50.9 BMI Method:Stated General Appearance: WD/WN, obese, other (keeps eyes closed when talking due to the photophobia) HEENT: PERRL/EOMI, normal ENT inspection, TMs normal Neck: non-tender, full range of motion Respiratory: normal breath sounds, no respiratory distress, no accessory muscle use Gastrointestinal: normal bowel sounds, non tender, soft Extremities: normal range of motion, non-tender Psychiatric: alert, oriented x 3 Crainal Nerves: normal hearing, normal speech, PERRL Skin: normal color, warm/dry Progress/Results/Core Measures Results/Orders My Orders Orders - ALLEGRA VILLATORO APRN Ketorolac Injection (Toradol Injection) (12/07/18 16:30) Prochlorperazine Injection (Compazine In (12/07/18 16:30) Diphenhydramine Injection (Benadryl Inje (12/07/18 16:30) Medications Given in ED Current Medications Medications Dose Ordered Sig/Minerva Route Start Time Stop Time Status Last Admin Dose Admin Diphenhydramine HCl 50 mg ONCE ONCE IM 12/07/18 16:30 12/07/18 16:31 DC 12/07/18 16:33 50 MG Ketorolac Tromethamine 30 mg ONCE ONCE IM 12/07/18 16:30 12/07/18 16:31 DC 12/07/18 16:33 30 MG Prochlorperazine Edisylate 10 mg ONCE ONCE IM 12/07/18 16:30 12/07/18 16:31 DC 12/07/18 16:33 10 MG Vital Signs/I&O 12/07/18 16:10 Temp 98.3 Pulse 82 Resp 18 B/P (MAP) 175/106 (129) Pulse Ox 95 Blood Pressure Mean: 129 Departure Impression Primary Impression: Headache Qualified Codes: R51 - Headache Disposition: 01 HOME, SELF-CARE Condition: Improved Departure-Patient Inst. Decision time for Depature: 16:25 Referrals: [facility] (PCP) Primary Care Physician CARISA KHAN (Family) Primary Care Physician Patient Instructions: Headache, Adult (DC) Add. Discharge Instructions: 1. Return to ER for any concerns 2. Follow-up with your doctor next week 3. All discharge instructions reviewed with patient and/or family. Voiced understanding. Work/School Note: Work Release Form Date Seen in the Emergency Department: December 07, 2018 Return to Work: December 08, 2018 Restrictions: No Restrictions ALLEGRA VILLATORO APRN December 07, 2018 16:26
[2018-12-07] MEDS ORDERED: KETOROLAC 30 MG/ML VIAL IM ONE (16:30)
[2018-12-07] MEDS ORDERED: PROCHLORPERAZINE 10 MG/2ML INJ (COMPAZINE) IM ONE (16:30)
[2018-12-07] MEDS ORDERED: diphenhydrAMINE 50 MG/ML INJ (BENADRYL) IM ONE (16:30)
[2018-12-07 17:07] VITALS: BP 154/97
--- OUTSIDE RECORDS SUMMARY | 2018-12-07 23:02 | XMS REPORT ---
Author Author Migration, Doctor Organization [facility] Address Unknown Phone Unavailable Care Team Providers Care Pulp Beater Name Role Phone Migration, Doctor Unavailable Unavailable PROBLEMS Type Condition ICD9-CM Code TLU91-EI Code Onset Dates Condition Status SNOMED Code Problem Intractable migraine without aura and without status migrainosus G43.019 Active 453851861 Problem Irritable bowel syndrome with diarrhea K58.0 Active 813139411 Problem Sleep apnea in adult G47.30 Active 24064553 Problem Hyperinsulinemia E16.1 Active 48478510 Problem Allergy, food Z91.018 Active 649448386 Problem Tension headache G44.209 Active 715392423 Problem HTN (hypertension) I10 Active 67179183 Problem DM neuro manif type II E11.49 Active 68047240 Problem Menorrhagia with irregular cycle N92.1 Active 107662075 Problem Iron deficiency anemia due to chronic blood loss D50.0 Active 302707350 Problem Other chronic pain G89.29 Active 30900460 Problem Primary osteoarthritis of left knee M17.12 Active [id number] ALLERGIES No Information ENCOUNTERS Encounter Location Date Diagnosis [facility], [place] [address] [address] Oct, [facility] [place] [address] [address] 17 Oct, 2018 Bronchitis J40 ; HTN (hypertension) I10 and Morbid obesity E66.01 [facility] [address] [place] [id number] [place] [address] 16 Oct, 2018 Sore throat J02.9 and Morbid obesity E66.01 [facility], [place] [address] [address] 09 Oct, 2018 [facility] [place] [address] [address] Oct, Allergy, food Z91.018 ; Candidiasis B37.9 and Morbid obesity E66.[address] [address] Sep, [address] [address] Sep, Intractable migraine without aura and without status migrainosus G43.019 ; Allergic reaction to food, subsequent encounter T78.1XXD ; HTN (hypertension) I10 and Morbid obesity E66.01 [place] [address] [address] Jul, [address] [address] Jul, Rash R21 and BMI 50.0-59.9, adult Z68.[address] [address] Jun, Hyperinsulinemia E16.1 and Menorrhagia with irregular cycle N92.[address] [address] Jun, Primary osteoarthritis of left knee M17.[address] [address] Jun, Sore throat J02.9 ; Acute nasopharyngitis J00 and BMI 50.0-59.9, adult Z68.[address] [address] Jun, Other chronic pain G89.29 ; Pain in left knee M25.562 ; Hyperinsulinemia E16.1 ; Menorrhagia with irregular cycle N92.1 and BMI 50.0-59.9, adult Z68.43 [facility] [place] [address] [address] Apr, BMI 50.0-59.9, adult Z68.43 ; Dysuria R30.0 and Acute UTI N39.0 [place] [id number] [place] [address] Apr, [place] [address] [address] Apr, Encounter for immunization Z23 [facility], [place] [address] [address] 27 Mar, 2018 Acute midline low back pain without sciatica M54.5 ; Acute pain of left knee M25.562 and BMI 50.0-59.9, adult Z68.43 [place] [address] [address] 24 Mar, 2018 Intractable migraine without aura and without status migrainosus G43.019 and BMI 50.0-59.9, adult Z68.43 [place] [address] [address] 05 Mar, 2018 Bronchitis J40 ; Allergy to food Z91.018 and BMI 50.0-59.9, adult Z68.43 [facility] [id number] [place] [address] Mar, Bronchitis J40 ; Wheezing on both sides of chest R06.2 and BMI 50.0- 59.9, adult Z68.43 [place] [address] [address] [id number] [place] [address] Feb, Pain in right leg M79.604 [place] [address] [address] Jan, Pneumonia of left lung due to infectious organism, unspecified part of lung J18.9 [place] [address] [address] Dec, Pneumonia due to Mycoplasma pneumoniae, unspecified laterality, unspecified part of lung J15.7 and BMI 50.0-59.9, adult Z68.43 [place] [address] [address] Dec, [place] [address] [address] [id number] [place] [address] Dec, Bronchitis J40 and BMI 50.0-59.9, adult Z68.43 [place] [id number] [place] [address] November, Bronchitis J40 ; LLQ pain R10.32 and BMI 50.0-59.9, adult Z68.43 [place] [id number] [place] [address] November, Iron deficiency anemia due to chronic blood loss D50.[address] [address] November, [place] [address] [address] November, Iron deficiency anemia due to chronic blood loss D50.0 ; DM neuro manif type II E11.49 ; Menorrhagia with irregular cycle N92.1 and BMI 50.0- 59.9, adult Z68.43 [facility] [place] [id number] [place] [address] Oct, Sore throat J02.9 and Acute nasopharyngitis J00 [facility] [place] [id number] [place] [address] Oct, Left leg pain M79.605 and BMI 50.0-59.9, adult Z68.43 [facility] [place] [id number] [place] [address] Sep, Upper respiratory tract infection, unspecified type J06.9 and BMI 50.0-59.9, adult Z68.43 [place] [address] [address] [id number] [place] [address] Sep, Menorrhagia with irregular cycle N92.1 ; Sleep apnea in adult G47.30 and BMI 50.0-59.9, adult Z68.43 [place] [address] [address] [id number] [place] [address] Sep, [facility], [place] [address] [address] Aug, [facility], [place] [id number] [place] [address] Aug, [facility], [place] [address] [address] Aug, [facility], [place] [id number] [place] [address] Aug, LLQ pain R10.32 ; Irritable bowel syndrome with diarrhea K58.0 ; Change in bowel habits R19.4 ; Essential hypertension I10 and BMI 50.0-59.9, adult Z68.43 [place] [id number] [place] [address] Aug, [facility], [place] [id number] [place] [address] Aug, [facility] [address] [place] [id number] [place] [address] Aug, Essential hypertension I10 and BMI 50.0-59.9, adult Z68.43 [place] [address] [address] [id number] [place] [address] Aug, [facility] [place] [address] [place] [address] [id number] [place] [address] Aug, [facility] [address] [place] [address] [id number] [place] [address] 02 Aug, 2017 Allergic disorder, initial encounter T78.40XA and BMI 50.0-59.9, adult Z68.43 [facility] [id number] [place] [address] Jul, Other atopic dermatitis L20.89 and BMI 50.0-59.9, adult Z68.43 [facility] [place] [id number] [place] [address] Jul, Intractable migraine without aura and without status migrainosus G43.019 and BMI 50.0-59.9, adult Z68.43 [facility], [place] [id number] [place] [address] Jun, DM neuro manif type II E11.49 ; Tension headache G44.209 ; Breast cancer screening Z12.31 and BMI 50.0-59.9, adult Z68.43 [facility], [place] [address] [address] Jun, Tension headache G44.209 ; Breast cancer screening Z12.31 ; BMI 50.0- 59.9, adult Z68.43 and DM neuro manif type II E11.49 [facility] [id number] [place] [address] Apr, Dysuria R30.0 and Acute cystitis with hematuria N30.01 [place] [address] [address] Apr, Hyperinsulinemia E16.1 [place] [address] [address] Mar, Acute non-recurrent maxillary sinusitis J01.00 [place] [id number] [place] [address] Feb, Cellulitis of unspecified part of limb L03.119 ; Spider bite wound, accidental or unintentional, subsequent encounter T63.301D and BMI 50.0-59.9, adult Z68.43 [place] [address] [address] Jan, [place] [address] [place] [id number] [place] [address] Jan, Urinary tract infection, site unspecified N39.0 [place] [address] [address] Jan, Acute gastritis without hemorrhage, unspecified gastritis type K29.00 [place] [address] [address] 30 Dec, 2016 Pain in right leg M79.604 [place] [address] [address] 28 Dec, 2016 Hyperinsulinemia E16.1 and Pain in right leg M79.604 [place] [address] [address] Dec, Angioedema, initial encounter T78.3XXA [place] [address] [address] 15 Dec, 2016 Dental examination Z01.20 [place] [address] [address] Dec, [place] [address] [address] Dec, Burning with urination R30.0 and Acute cystitis with hematuria N30.01 [place] [address] [address] Oct, [place] [address] [address] Sep, [place] [address] [address] Aug, Hyperinsulinemia E16.1 [place] [address] [address] Aug, [place] [address] [address] Jul, [place] [address] [address] Jul, Chondromalacia, left knee M94.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 and Acute lateral meniscus tear of left knee, initial encounter S83.282A [facility], [place] [id number] [place] [address] Jul, [facility], [place] [id number] [place] [address] Jun, Hyperinsulinemia E16.1 [facility], [place] [id number] [place] [address] Jun, Dysuria R30.0 ; Back pain M54.9 ; Acute pain of left knee M25.562 and Hyperinsulinemia E16.1 [facility], [place] [id number] [place] [address] Jun, Acute non-recurrent maxillary sinusitis J01.00 [facility], [place] [id number] [place] [address] Jun, Dysuria R30.0 [facility], [place] [id number] [place] [address] Jun, Dysuria R30.0 [facility], [place] [id number] [place] [address] Jun, [facility], [place] [id number] [place] [address] May, Dysuria R30.0 and Acute cystitis with hematuria N30.01 [facility], [place] [id number] [place] [address] May, Hyperinsulinemia E16.1 [facility], [place] [id number] [place] [address] May, [facility], [place] [id number] [place] [address] May, Sore throat J02.9 [facility], [place] [id number] [place] [address] May, [facility], [place] [id number] [place] [address] 08 Mar, 2016 Hyperinsulinemia E16.1 [facility], [place] [id number] [place] [address] Jan, Hyperinsulinemia E16.1 [facility], [place] [address] [address] Dec, DM neuro manif type II E11.49 [facility], [place] [address] [address] November, Hyperinsulinemia E16.1 and Hypertension I10 [facility], [place] [address] [address] Oct, [facility], [place] [address] [address] Oct, Hyperinsulinemia E16.1 [facility], [place] [address] [address] Oct, Pain, unspecified R52 [facility], [place] [address] [address] Oct, Pain in right foot M79.671 and Hyperinsulinemia E16.1 [facility], [place] [address] [address] Oct, Hyperinsulinemia E16.1 [facility], [place] [address] [address] [id number] [place] [address] Oct, Hyperinsulinemia E16.1 [facility], [place] [address] [id number] [place] [address] 17 Aug, 2015 Hypertension I10 and Viral illness B34.9 [facility], [place] [address] [address] [id number] [place] [address] May, Back pain M54.9 [facility], [place] [address] [address] [id number] [place] [address] 14 Oct, 2014 [facility], [place] [id number] [place] [address] Oct, [facility], [place] [address] [place] [id number] [place] [address] 30 Sep, 2014 [facility] [place] [facility] [address] [id number] [place] [address] 30 Sep, 2014 [facility] [place] [facility] [address] [id number] [place] [address] Sep, 2014 [facility] [place] [facility] [address] [id number] [place] [address] Sep, 2014 [facility] [place] [facility] [address] [id number] [place] [address] Sep, 2014 [facility] [place] [facility] [address] [id number] [place] [address] Sep, 2014 [facility] [place] [facility] [address] [id number] [place] [address] Sep, 2014 [facility] [place] [facility] [address] [id number] [place] [address] Sep, 2014 [facility] [place] [facility] [address] [id number] [place] [address] Sep, [facility] [place] [facility] [address] [id number] [place] [address] Sep, 2014 [facility] [place] [facility] [address] [id number] [place] [address] Sep, 2014 [facility] [place] [facility] [address] [id number] [place] [address] Sep, 2014 [facility] [place] [facility] [address] [id number] [place] [address] Mar, [facility] [place] [facility] [address] [id number] [place] [address] Mar, [facility] [place] [facility] [address] [id number] [place] [address] Feb, [facility] [place] [facility] [address] [id number] [place] [address] Feb, [facility] [place] [facility] [address] [id number] [place] [address] Feb, [facility] [place] [facility] [address] [id number] [place] [address] Feb, [facility] [place] [facility] [address] [id number] [place] [address] Dec, [facility] [place] [facility] [address] [id number] [place] [address] Dec, [facility] [place] [facility] [address] [id number] [place] [address] Dec, [facility] [place] [facility] [address] [id number] [place] [address] Dec, [facility] [place] [facility] [address] [id number] [place] [address] Dec, [facility] [place] [facility] [address] [id number] [place] [address] Dec, [facility] [place] [facility] [address] [id number] [place] [address] Dec, [facility] [place] [facility] [address] [id number] [place] [address] Sep, [facility] [place] [facility] [address] [id number] [place] [address] Sep, [facility] [place] [facility] [address] [id number] [place] [address] Sep, [facility] [place] [facility] [address] [id number] [place] [address] Sep, [facility] [place] [facility] [address] [id number] [place] [address] Sep, [facility] [place] [facility] [address] [id number] [place] [address] Sep, [facility] [place] [facility] [address] [id number], [place] [address] Sep, [facility] [place] [facility] [address] [id number] [place] [address] Sep, [facility] [place] [facility] [address] [id number] [place] [address] Jul, [facility] [place] [facility] [address] [id number] [place] [address] Jul, [facility] [place] [facility] [address] [id number] [place] [address] Jun, [facility] [place] [facility] [address] [id number] [place] [address] Jun, [facility] [place] [facility] [address] [id number] [place] [address] May, [facility] [place] [facility] [address] [id number], [place] [address] May, [facility] [place] [facility] [address] [id number] [place] [address] May, [facility] [place] [facility] [address] [id number], [place] [address] May, [facility] [place] [facility] [address] [facility] [id number], [place] [address] May, [facility] [place] [facility] [address] [id number], [place] [address] May, [facility] [place] [facility] [address] [id number], [place] [address] May, [facility] [place] [facility] [address] [id number], [place] [address] Apr, [facility] [place] [facility] [address] [id number] [place] [address] Apr, [facility] [place] [facility] [address] [id number] [place] [address] Apr, [facility] [place] [facility] [address] [id number] [place] [address] Apr, [facility] [address] [id number] [place] [address] Apr, [facility] [place] [facility] [address] [id number] [place] [address] Apr, [facility] [address] [id number] [place] [address] Mar, [facility] [place] [facility] [address] [id number] [place] [address] Feb, [facility] [address] [id number] [place] [address] Jan, [facility] [address] [id number] [place] [address] Jan, [facility] [address] [id number] [place] [address] Jan, [facility] [address] [id number] [place] [address] Dec, [facility] [address] [id number] [place] [address] November, [facility] [address] [id number] [place] [address] November, [facility] [place] [facility] [address] [id number] [place] [address] November, [facility] [place] [facility] [address] [id number] [place] [address] November, [facility] [place] [facility] [address] [id number] [place] [address] Oct, [facility] [place] [facility] [address] [id number] [place] [address] Aug, [facility] [place] [facility] [address] [id number] [place] [address] Aug, [facility] [place] [facility] [address] [id number] [place] [address] Aug, [facility] [place] [facility] [address] [id number] [place] [address] Aug, [facility] [place] [facility] [address] [id number] [place] [address] Aug, [facility] [place] [facility] [address] [id number] [place] [address] Aug, [facility] [place] [facility] [address] [id number] [place] [address] Jul, [facility] [place] [facility] [address] [id number] [place] [address] May, [facility] [place] [facility] [address] [id number] [place] [address] May, [facility] [place] [facility] [address] [id number] [place] [address] May, [facility] [place] [facility] [address] [id number] [place] [address] May, [facility] [place] [facility] [address] [id number] [place] [address] May, [facility] [place] [facility] [address] [id number] [place] [address] May, [facility] [place] [facility] [address] [id number] [place] [address] May, [facility] [place] [facility] [address] [id number] [place] [address] Apr, [facility] [place] [facility] [address] [id number] [place] [address] Apr, [facility] [place] [facility] [address] [id number] [place] [address] Apr, [facility] [place] [facility] [address] [id number] [place] [address] Apr, [facility] [place] [facility] [address] [id number] [place] [address] Apr, [facility] [place] [facility] [address] [id number] [place] [address] Sep, [facility] [place] [facility] [address] [id number] [place] [address] Aug, [facility] [place] [facility] [address] [id number] [place] [address] Aug, [facility] [place] [facility] [address] [id number] [place] [address] Aug, [facility] [place] [facility] [address] [id number] [place] [address] Aug, [facility] [place] [facility] [address] [id number] [place] [address] Aug, [facility] [place] [facility] [address] [id number] [place] [address] Jul, [facility] [place] [facility] [address] [facility] [id number] [place] [address] Jul, [facility] [place] [facility] [address] [facility] [id number] [place] [address] Jul, [facility] [place] [facility] [address] [id number] [place] [address] Jun, [facility] [place] [facility] [address] [id number] [place] [address] Jun, [facility] [place] [facility] [address] [id number] [place] [address] Jun, [facility] [place] [facility] [address] [facility] [id number] [place] [address] May, [facility] [place] [facility] [address] [id number] [place] [address] Apr, [facility] [place] [address] [facility] [id number] [place] [address] Apr, [facility] [place] [address] [facility] [id number] [place] [address] Apr, [facility] [place] [address] [facility] [id number] [place] [address] Apr, IMMUNIZATIONS No Known Immunizations SOCIAL HISTORY Never Assessed REASON FOR VISIT EMR-[facility] [place] PLAN OF CARE VITAL SIGNS MEDICATIONS Unknown [...]
--- OUTSIDE RECORDS SUMMARY | 2018-12-07 23:02 | XMS REPORT ---
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 Name Role Phone CARISA KHAN Unavailable PROBLEMS Type Condition ICD9-CM Code [id number] Code Onset Dates Condition Status SNOMED Code Problem Intractable migraine without aura and without status migrainosus G43.019 Active 940626482 Problem Irritable bowel syndrome with diarrhea K58.0 Active 531094625 Problem Sleep apnea in adult G47.30 Active 82759149 Problem Hyperinsulinemia E16.1 Active 21173931 Problem Allergy, food Z91.018 Active 670173676 Problem Tension headache G44.209 Active 081626206 Problem HTN (hypertension) I10 Active 76946661 Problem DM neuro manif type II E11.49 Active 68025266 Problem Menorrhagia with irregular cycle N92.1 Active 172344993 Problem Iron deficiency anemia due to chronic blood loss D50.0 Active 592993824 Problem Other chronic pain G89.29 Active 53931760 Problem Primary osteoarthritis of left knee M17.12 Active [id number] ALLERGIES Substance Reaction Event Type Date Status Red Onion hives Non Drug Allergy Sep, Active Chlorthalidone 25 Mg Tablet hives Non Drug Allergy Sep, Active Hydrochlorothiazide 25 Mg Tablet hives Non Drug Allergy Sep, Active Codeine hives Drug Allergy Sep, Active liquid codeine/ pt. can tolerate drugs like hydroco Unknown Non Drug Allergy Sep, Active ENCOUNTERS Encounter Location Date Diagnosis [facility] [address] [facility] [id number] [address] November, [facility] [address] [id number] [address] November, [facility] [address] [id number] [address] November, Pain of left lower leg M79.662 and Candidiasis B37.9 [facility] [place] [address] [address] November, Left leg pain M79.605 [place] [address] [address] November, Pain in right leg M79.604 [place] [address] [address] Oct, Left leg pain M79.605 ; Left leg swelling M79.89 and Morbid obesity E66.01 [place] [address] [address] Oct, Bronchitis J40 ; HTN (hypertension) I10 and Morbid obesity E66.01 [facility] [place] [address] [address] Oct, Sore throat J02.9 and Morbid obesity E66.01 [place] [address] [address] Oct, [place] [address] [address] Oct, Allergy, food Z91.018 ; Candidiasis B37.9 and Morbid obesity E66.01 [place] [address] [address] Sep, [place] [address] [address] Sep, Intractable migraine without aura and without status migrainosus G43.019 ; Allergic reaction to food, subsequent encounter T78.1XXD ; HTN (hypertension) I10 and Morbid obesity E66.01 [place] [address] [place] [id number] [place] [address] Jul, [facility] [place] [address] [address] Jul, Rash R21 and BMI 50.0-59.9, adult Z68.43 [place] [address] [address] Jun, Hyperinsulinemia E16.1 and Menorrhagia with irregular cycle N92.1 [place] [address] [address] Jun, Primary osteoarthritis of left knee M17.12 [facility] [place] [address] [address] Jun, Sore throat J02.9 ; Acute nasopharyngitis J00 and BMI 50.0-59.9, adult Z68.43 [place] [address] [address] 05 Jun, 2018 Other chronic pain G89.29 ; Pain in left knee M25.562 ; Hyperinsulinemia E16.1 ; Menorrhagia with irregular cycle N92.1 and BMI 50.0-59.9, adult Z68.43 [facility] [place] [address] [address] Apr, BMI 50.0-59.9, adult Z68.43 ; Dysuria R30.0 and Acute UTI N39.0 [place] [address] [address] Apr, [place] [address] [address] Apr, Encounter for immunization Z23 [place] [address] [address] Mar, Acute midline low back pain without sciatica M54.5 ; Acute pain of left knee M25.562 and BMI 50.0-59.9, adult Z68.43 [place] [address] [place] [id number] [place] [address] Mar, Intractable migraine without aura and without status migrainosus G43.019 and BMI 50.0-59.9, adult Z68.43 [place] [address] [place] [id number] [place] [address] Mar, Bronchitis J40 ; Allergy to food Z91.018 and BMI 50.0-59.9, adult Z68.43 [facility] [address] [place] [id number] [place] [address] Mar, Bronchitis J40 ; Wheezing on both sides of chest R06.2 and BMI 50.0- 59.9, adult Z68.43 [place] [address] [place] [id number] [place] [address] Feb, Pain in right leg M79.604 [place] [address] [address] Jan, Pneumonia of left lung due to infectious organism, unspecified part of lung J18.9 [place] [address] [address] Dec, Pneumonia due to Mycoplasma pneumoniae, unspecified laterality, unspecified part of lung J15.7 and BMI 50.0-59.9, adult Z68.43 [place] [address] [place] [id number] [place] [address] Dec, [place] [address] [place] [id number] [place] [address] Dec, Bronchitis J40 and BMI 50.0-59.9, adult Z68.43 [place] [address] [place] [id number] [place] [address] November, Bronchitis J40 ; LLQ pain R10.32 and BMI 50.0-59.9, adult Z68.43 [place] [address] [place] [id number] [place] [address] November, Iron deficiency anemia due to chronic blood loss D50.0 [place] [address] [address] November, [facility] [address] [place] [id number] [place] [address] November, Iron deficiency anemia due to chronic blood loss D50.0 ; DM neuro manif type II E11.49 ; Menorrhagia with irregular cycle N92.1 and BMI 50.0- 59.9, adult Z68.43 [facility] [address] [place] [id number] [place] [address] Oct, Sore throat J02.9 and Acute nasopharyngitis J00 [facility] [place] [address] [place] [id number] [place] [address] Oct, Left leg pain M79.605 and BMI 50.0-59.9, adult Z68.43 [facility] [place] [address] [place] [id number] [place] [address] Sep, Upper respiratory tract infection, unspecified type J06.9 and BMI 50.0-59.9, adult Z68.43 [place] [address] [place] [id number] [place] [address] Sep, Menorrhagia with irregular cycle N92.1 ; Sleep apnea in adult G47.30 and BMI 50.0-59.9, adult Z68.43 [place] [address] [place] [id number] [place] [address] Sep, [place] [address] [place] [id number] [place] [address] Aug, [place] [address] [place] [id number] [place] [address] Aug, [place] [address] [place] [id number] [place] [address] Aug, [facility] [address] [place] [id number] [place] [address] Aug, LLQ pain R10.32 ; Irritable bowel syndrome with diarrhea K58.0 ; Change in bowel habits R19.4 ; Essential hypertension I10 and BMI 50.0-59.9, adult Z68.43 [facility] [address] [address] 22 Aug, 2017 [facility] [address] [address] Aug, [facility] [address] [address] Aug, Essential hypertension I10 and BMI 50.0-59.9, adult Z68.43 [place] [address] [address] Aug, [place] [address] [address] Aug, [facility] [facility] [address] [address] 02 Aug, 2017 Allergic disorder, initial encounter T78.40XA and BMI 50.0-59.9, adult Z68.43 [facility] [address] [address] Jul, Other atopic dermatitis L20.89 and BMI 50.0-59.9, adult Z68.43 [place] [address] [address] 16 Jul, 2017 Intractable migraine without aura and without status migrainosus G43.019 and BMI 50.0-59.9, adult Z68.43 [facility] [address] [place] [id number] [place] [address] Jun, DM neuro manif type II E11.49 ; Tension headache G44.209 ; Breast cancer screening Z12.31 and BMI 50.0-59.9, adult Z68.43 [facility] [address] [place] [id number] [place] [address] Jun, Tension headache G44.209 ; Breast cancer screening Z12.31 ; BMI 50.0- 59.9, adult Z68.43 and DM neuro manif type II E11.49 [facility] [address] [address] Apr, Dysuria R30.0 and Acute cystitis with hematuria N30.01 [facility] [address] [address] Apr, Hyperinsulinemia E16.1 [place] [address] [address] Mar, Acute non-recurrent maxillary sinusitis J01.00 [place] [address] [address] Feb, Cellulitis of unspecified part of limb L03.119 ; Spider bite wound, accidental or unintentional, subsequent encounter T63.301D and BMI 50.0-59.9, adult Z68.43 [facility] [address] [address] Jan, [place] [address] [address] Jan, Urinary tract infection, site unspecified N39.0 [place] [address] [address] Jan, Acute gastritis without hemorrhage, unspecified gastritis type K29.00 [facility] [address] [address] Dec, Pain in right leg M79.604 [place] [address] [address] Dec, Hyperinsulinemia E16.1 and Pain in right leg M79.604 [place] [address] [address] Dec, Angioedema, initial encounter T78.3XXA [place] [address] [place] [address] 15 Dec, 2016 Dental examination Z01.20 [facility] [address] [place] [id number] [place] [address] 13 Dec, 2016 [facility] [address] [place] [id number] [place] [address] Dec, Burning with urination R30.0 and Acute cystitis with hematuria N30.01 [facility] [address] [address] Oct, [facility] [address] [place] [id number] [place] [address] Sep, [facility] [address] [address] Aug, Hyperinsulinemia E16.1 [place] [address] [address] Aug, [facility] [address] [place] [id number] [place] [address] Jul, [facility] [address] [place] [id number] [place] [address] Jul, Chondromalacia, left knee M94.262 and Acute lateral meniscus tear of left knee, initial encounter S83.282A [place] [address] [place] [id number] [place] [address] Jul, [facility] [address] [address] Jun, Hyperinsulinemia E16.1 [facility] [address] [place] [id number] [place] [address] Jun, Dysuria R30.0 ; Back pain M54.9 ; Acute pain of left knee M25.562 and Hyperinsulinemia E16.1 [facility] [address] [place] [id number] [place] [address] Jun, Acute non-recurrent maxillary sinusitis J01.00 [facility] [address] [place] [id number] [place] [address] 05 Jun, 2016 Dysuria R30.0 [facility] [address] [address] Jun, Dysuria R30.0 [facility] [address] [address] Jun, [facility] [address] [address] May, Dysuria R30.0 and Acute cystitis with hematuria N30.01 [facility] [address] [address] May, Hyperinsulinemia E16.1 [facility] [address] [address] May, [facility] [address] [address] May, Sore throat J02.9 [facility] [address] [address] May, [facility] [address] [address] Mar, Hyperinsulinemia E16.1 [facility] [address] [address] Jan, Hyperinsulinemia E16.1 [facility] [address] [address] Dec, DM neuro manif type II E11.49 [facility] [address] [address] November, Hyperinsulinemia E16.1 and Hypertension I10 [facility] [address] [address] Oct, [facility] [address] [place] [id number] 22 Oct, 2015 Hyperinsulinemia E16.1 [facility] [address] [place] [id number] [place] [address] 20 Oct, 2015 Pain, unspecified R52 [facility] [address] [place] [id number] [place] [address] 14 Oct, 2015 Pain in right foot M79.671 and Hyperinsulinemia E16.1 [facility] [address] [place] [id number] [place] [address] 14 Oct, 2015 Hyperinsulinemia E16.1 [facility] [address] [place] [id number] [place] [address] 12 Oct, 2015 Hyperinsulinemia E16.1 [facility] [address] [place] [id number] [place] [address] 17 Aug, 2015 Hypertension I10 and Viral illness B34.9 [facility] [address] [place] [id number] [place] [address] 18 May, 2015 Back pain M54.9 [facility] [address] [place] [id number] [place] [address] 14 Oct, 2014 [facility] [address] [place] [id number] [place] [address] 13 Oct, 2014 [facility] [address] [place] [id number] [place] [address] 30 Sep, 2014 [facility] [address] [place] [id number] [place] [address] 30 Sep, 2014 [facility] [address] [place] [id number] [place] [address] 17 Sep, 2014 [facility] [address] [place] [id number] [place] [address] 17 Sep, 2014 [facility] [address] [place] [id number] [place] [address] 11 Sep, 2014 [facility] [address] [place] [id number] [place] [address] Sep, 2014 [facility] [place] [facility] [address] [id number] [place] [address] Sep, 2014 [facility] [place] [facility] [address] [id number] [place] [address] Sep, 2014 [facility] [place] [facility] [address] [id number] [place] [address] Sep, 2014 [facility] [place] [facility] [address] [id number] [place] [address] Sep, 2014 [facility] [place] [facility] [address] [id number] [place] [address] Sep, 2014 [facility] [place] [facility] [address] [id number] [place] [address] Sep, 2014 [facility] [place] [facility] [address] [id number] [place] [address] Mar, [facility] [place] [facility] [address] [id number] [place] [address] Mar, [facility] [place] [facility] [address] [id number] [place] [address] Feb, [facility] [place] [facility] [address] [id number] [place] [address] Feb, [facility] [place] [facility] [address] [id number] [place] [address] Feb, [facility] [place] [facility] [address] [id number] [place] [address] Feb, [facility] [place] [facility] [address] [id number] [place] [address] Dec, [facility] [place] [facility] [address] [id number] [place] [address] Dec, [facility] [place] [facility] [address] [id number] [place] [address] Dec, [facility] [place] [facility] [address] [id number] [place] [address] 16 Dec, 2013 [facility] [address] [id number] [place] [address] Dec, [facility] [place] [facility] [address] [id number] [place] [address] Dec, [facility] [place] [facility] [address] [id number] [place] [address] Dec, [facility] [place] [facility] [address] [id number] [place] [address] Sep, [facility] [place] [facility] [address] [id number] [place] [address] Sep, [facility] [place] [facility] [address] [id number] [place] [address] Sep, [facility] [place] [facility] [address] [id number] [place] [address] Sep, [facility] [place] [facility] [address] [id number] [place] [address] Sep, [facility] [place] [facility] [address] [id number] [place] [address] Sep, [facility] [place] [facility] [address] [id number] [place] [address] Sep, [facility] [place] [facility] [address] [id number] [place] [address] Sep, [facility] [place] [facility] [address] [id number] [place] [address] Jul, [facility] [place] [facility] [address] [id number] [place] [address] Jul, [facility] [place] [facility] [address] [id number] [place] [address] Jun, [facility] [place] [facility] [address] [id number] [place] [address] Jun, [facility] [place] [facility] [address] [id number] [place] [address] May, [facility] [place] [facility] [address] [id number] [place] [address] May, [facility] [place] [facility] [address] [id number] [place] [address] May, [facility] [place] [facility] [address] [id number] [place] [address] May, [facility] [place] [facility] [address] [id number] [place] [address] May, [facility] [place] [facility] [address] [id number] [place] [address] May, [facility] [place] [facility] [address] [id number] [place] [address] May, [facility] [place] [facility] [address] [id number] [place] [address] Apr, [facility] [place] [facility] [address] [id number] [place] [address] Apr, [facility] [place] [facility] [address] [id number], [place] [address] Apr, [facility] [place] [facility] [address] [id number], [place] [address] Apr, [facility] [place] [facility] [address] [id number], [place] [address] Apr, [facility] [place] [facility] [address] [id number] [place] [address] Apr, [facility] [place] [facility] [address] [id number], [place] [address] 05 Mar, 2013 [facility] [place] [facility] [address] [id number], [place] [address] Feb, [facility] [place] [facility] [address] [id number], [place] [address] Jan, [facility] [address] [id number] [place] [address] Jan, [facility] [address] [id number], [place] [address] Jan, [facility] [address] [id number] [place] [address] Dec, [facility] [address] [id number] [place] [address] November, [facility] [address] [id number] [place] [address] November, [facility] [address] [id number] [place] [address] November, [facility] [address] [facility] [id number] [address] November, [facility] [address] [facility] [id number] [place] [address] Oct, [facility] [address] [facility] [id number] [place] [address] Aug, [facility] [address] [facility] [id number], [place] [address] Aug, [facility] [address] [facility] [id number], [place] [address] Aug, [facility] [place] [facility] [address] [facility] [id number], [place] [address] Aug, [facility] [place] [facility] [address] [id number] [place] [address] Aug, [facility] [place] [facility] [address] [id number], [place] [address] Aug, [facility] [place] [facility] [address] [facility] [id number], [place] [address] Jul, [facility] [place] [facility] [address] [id number] [place] [address] May, [facility] [place] [facility] [address] [id number] [place] [address] May, [facility] [place] [facility] [address] [id number] [place] [address] May, [facility] [place] [facility] [address] [id number] [place] [address] May, [facility] [place] [facility] [address] [id number] [place] [address] May, [facility] [place] [facility] [address] [id number] [place] [address] May, [facility] [place] [facility] [address] [facility] [id number] [place] [address] May, [facility] [place] [facility] [address] [id number] [place] [address] Apr, [facility] [place] [facility] [address] [id number] [place] [address] Apr, [facility] [place] [facility] [address] [facility] [id number] [place] [address] Apr, [facility] [place] [facility] [address] [facility] [id number] [place] [address] Apr, [facility] [place] [facility] [address] [id number], [place] [address] Apr, [facility] [place] [facility] [address] [id number] [place] [address] Sep, [facility] [place] [facility] [address] [id number] [place] [address] Aug, [facility] [place] [facility] [address] [facility] [id number] [place] [address] Aug, [facility] [place] [facility] [address] [facility] [id number], [place] [address] Aug, [facility] [address] [id number] [address] Aug, [facility] [id number], [place] [address] Aug, [facility] [id number] [address] Jul, [facility] [id number] [address] Jul, [facility] [id number], [place] [address] Jul, [facility] [id number], [place] [address] Jun, [facility] [id number], [place] [address] Jun, [facility] [id number], [place] [address] Jun, [facility] [id number], [place] [address] May, [facility] [id number], [place] [address] Apr, [facility] [id number], [place] [address] Apr, [facility] [address] [id number] [address] Apr, [facility] [id number], [place] [address] Apr, IMMUNIZATIONS Vaccine Route Administration Date Status PHENERGAN 50MG/ML IM Intramuscular September 18, 2018 Administered TORADOL (IM) 60 MG/2ML (UP TO 15 MG) IM Intramuscular September 18, 2018 Administered SOCIAL HISTORY Never Assessed REASON FOR VISIT Headache Pt started with a headache after allergic reaction on Thursday, she has had one daily since, last night and today it is worse, along with nausea and vo shanna Jolley MA PLAN OF CARE Activity Details Follow Up 1 Week Reason:migraine VITAL SIGNS Height 69 in 2018-09-18 Weight 353.5 lbs 2018-09-18 Temperature 98.3 degrees Fahrenheit 2018-09-18 Heart Rate 96 bpm 2018-09-18 Respiratory Rate 20 2018-09-18 Oximetry 97 % 2018-09-18 BMI 52.20 kg/m2 2018-09-18 Blood pressure systolic 156 mmHg 2018-09-18 Blood pressure diastolic 108 mmHg 2018-09-18 MEDICATIONS Medication Instructions Dosage Frequency Start Date End Date Duration Status Spironolactone 25 MG Orally Once a day 1 tablet 24h 90 Active Metformin HCl 500 MG Orally 2 times a day 1 tablet with meals 12h 90 Active Flonase 50 MCG/ACT Nasally Once a day 1 spray in each nostril 24h Active Zofran 4 MG Orally every 4 hrs 1 tablet as needed for nausea 4h November, Active EPINEPHrine 0.3 mg/0.3ml Injection PRN as directed Sep, 1 dose Active Triamcinolone Acetonide 0.1 % Externally Twice a day 1 application to affected area 12h Jul, 10 days Active HydrOXYzine Pamoate 25 MG Orally every 8 hrs 1- 2 capsule as needed 8h 05 Mar, 2018 Active Zyrtec Allergy 10 MG Orally Once a day 1 tablet 24h Active Pepcid 40 MG Orally Once a day 1 tablet 24h Active ProAir HFA 108 (90 Base) MCG/ACT Inhalation 4 times a day 2 puffs as needed 6h Dec, 7 days Active Propranolol HCl 10 MG Orally 2 times a day 1 tablet 12h 90 Active Mobic 7.5 MG Orally Once a day 1-2 tablets as needed for leg pain 24h Dec, 30 days Active Diltiazem HCl ER Beads 240 MG Orally Once a day 1 capsule 24h 90 Active Protonix 40 MG Orally Once a day 1 tablet 24h Active Losartan Potassium 50 mg Orally Once a day 1 tablet 24h 90 Active Ferrous Sulfate 325 (65 Fe) MG Orally Once a day 1 tablet 24h November, 30 day(s) Active Imitrex 50 MG Orally Twice a day 1 tablet as needed 12h 30 Not-Taking Albuterol Sulfate (2.5 MG/3ML) 0.083% Inhalation 4 times a day 3 ml as needed 6h 25 Dec, 2018 Active RESULTS No Results PROCEDURES Procedure Date Ordered Result Body Site PHENERGAN 50MG/ML September 18, 2018 THER/PROPH/DIAG INJ, SC/IM September 18, 2018 TORADOL (IM) 60 MG/2ML (UP TO 15 MG) September 18, 2018 INSTRUCTIONS MEDICATIONS ADMINISTERED No Known Medications MEDICAL (GENERAL) HISTORY Type Description Date Medical History hypertension Medical History Sleep apnea in adult Surgical History x 3 Surgical History cholecystectomy Surgical History Chemical Stress Test, EKG, Echo 05/2016 Hospitalization History surgeries Hospitalization History UTI VC 05/2016
--- OUTSIDE RECORDS SUMMARY | 2018-12-07 23:03 | XMS REPORT ---
Author Author Migration, Doctor Organization [facility] Address Unknown Phone Unavailable Care Team Providers Care Culture Manager Name Role Phone Migration, Doctor Unavailable Unavailable PROBLEMS Type Condition ICD9-CM Code GGI18-MK Code Onset Dates Condition Status SNOMED Code Problem Intractable migraine without aura and without status migrainosus G43.019 Active 723178905 Problem Irritable bowel syndrome with diarrhea K58.0 Active 154770235 Problem Sleep apnea in adult G47.30 Active 58571191 Problem Hyperinsulinemia E16.1 Active 45730357 Problem Primary osteoarthritis of left knee M17.12 Active 914916576113241 Problem Tension headache G44.209 Active 133654167 Problem HTN (hypertension) I10 Active 62522678 Problem DM neuro manif type II E11.49 Active 31944623 Problem Menorrhagia with irregular cycle N92.1 Active 050373450 Problem Iron deficiency anemia due to chronic blood loss D50.0 Active 268811480 Problem Allergy to food Z91.018 Active 786023171 Problem Other chronic pain G89.29 Active 77839993 ALLERGIES No Information ENCOUNTERS Encounter Location Date Diagnosis [facility] [address] [address] 08 Oct, 2018 [facility] [address] [address] Sep, [facility] [address] [address] Sep, Intractable migraine without aura and without status migrainosus G43.019 ; Allergic reaction to food, subsequent encounter T78.1XXD ; HTN (hypertension) I10 and Morbid obesity E66.01 [facility] [id number] [place] [address] Jul, [facility] [address] [address] Jul, Rash R21 and BMI 50.0-59.9, adult Z68.43 [place] [address] [address] Jun, Hyperinsulinemia E16.1 and Menorrhagia with irregular cycle N92.1 [place] [address] [address] Jun, Primary osteoarthritis of left knee M17.12 [facility] [place] [address] [address] Jun, Sore throat J02.9 ; Acute nasopharyngitis J00 and BMI 50.0-59.9, adult Z68.43 [place] [address] [address] 05 Jun, 2018 Other chronic pain G89.29 ; Pain in left knee M25.562 ; Hyperinsulinemia E16.1 ; Menorrhagia with irregular cycle N92.1 and BMI 50.0-59.9, adult Z68.43 [facility] [place] [address] [address] Apr, BMI 50.0-59.9, adult Z68.43 ; Dysuria R30.0 and Acute UTI N39.0 [place] [address] [address] 18 Apr, 2018 [place] [address] [address] Apr, Encounter for immunization Z23 [place] [address] [address] 27 Mar, 2018 Acute midline low back pain without sciatica M54.5 ; Acute pain of left knee M25.562 and BMI 50.0-59.9, adult Z68.43 [place] [address] [address] 24 Mar, 2018 Intractable migraine without aura and without status migrainosus G43.019 and BMI 50.0-59.9, adult Z68.43 [facility] [id number] [place] [address] Mar, Bronchitis J40 ; Allergy to food Z91.018 and BMI 50.0-59.9, adult Z68.43 [facility] [id number] [place] [address] Mar, Bronchitis J40 ; Wheezing on both sides of chest R06.2 and BMI 50.0- 59.9, adult Z68.43 [place] [address] [place] [address] [id number] [place] [address] Feb, Pain in right leg M79.604 [place] [address] [address] Jan, Pneumonia of left lung due to infectious organism, unspecified part of lung J18.9 [place] [address] [address] Dec, Pneumonia due to Mycoplasma pneumoniae, unspecified laterality, unspecified part of lung J15.7 and BMI 50.0-59.9, adult Z68.43 [place] [address] [place] [id number] [place] [address] Dec, [place] [address] [place] [id number] [place] [address] Dec, Bronchitis J40 and BMI 50.0-59.9, adult Z68.43 [place] [address] [place] [id number] [place] [address] November, Bronchitis J40 ; LLQ pain R10.32 and BMI 50.0-59.9, adult Z68.43 [place] [address] [place] [address] [id number] [place] [address] November, Iron deficiency anemia due to chronic blood loss D50.0 [place] [address] [address] November, [facility] [id number] [place] [address] November, Iron deficiency anemia due to chronic blood loss D50.0 ; DM neuro manif type II E11.49 ; Menorrhagia with irregular cycle N92.1 and BMI 50.0- 59.9, adult Z68.43 [facility] [id number] [place] [address] Oct, Sore throat J02.9 and Acute nasopharyngitis J00 [facility] [id number] [place] [address] Oct, Left leg pain M79.605 and BMI 50.0-59.9, adult Z68.43 [facility] [address] [id number] [place] [address] Sep, Upper respiratory tract infection, unspecified type J06.9 and BMI 50.0-59.9, adult Z68.43 [place] [address] [place] [id number] [place] [address] Sep, Menorrhagia with irregular cycle N92.1 ; Sleep apnea in adult G47.30 and BMI 50.0-59.9, adult Z68.43 [place] [address] [place] [id number] [place] [address] Sep, [place] [address] [place] [id number] [place] [address] Aug, [place] [address] [place] [id number] [place] [address] Aug, [place] [address] [place] [address] [id number] [place] [address] Aug, [place] [address] [place] [id number] [place] [address] Aug, LLQ pain R10.32 ; Irritable bowel syndrome with diarrhea K58.0 ; Change in bowel habits R19.4 ; Essential hypertension I10 and BMI 50.0-59.9, adult Z68.43 [place] [address] [place] [address] [id number] [place] [address] Aug, [facility] [id number] [place] [address] Aug, [facility] [address] [address] Aug, Essential hypertension I10 and BMI 50.0-59.9, adult Z68.43 [place] [address] [address] Aug, [place] [address] [address] 08 Aug, 2017 [facility] [place] [address] [address] 02 Aug, 2017 Allergic disorder, initial encounter T78.40XA and BMI 50.0-59.9, adult Z68.43 [facility] IN [facility] [address] [address] Jul, Other atopic dermatitis L20.89 and BMI 50.0-59.9, adult Z68.43 [place] [address] [place] [id number] [place] [address] 16 Jul, 2017 Intractable migraine without aura and without status migrainosus G43.019 and BMI 50.0-59.9, adult Z68.43 [facility] [address] [id number] [place] [address] Jun, DM neuro manif type II E11.49 ; Tension headache G44.209 ; Breast cancer screening Z12.31 and BMI 50.0-59.9, adult Z68.43 [facility] [id number] [place] [address] Jun, Tension headache G44.209 ; Breast cancer screening Z12.31 ; BMI 50.0- 59.9, adult Z68.43 and DM neuro manif type II E11.49 [facility] [address] [address] Apr, Dysuria R30.0 and Acute cystitis with hematuria N30.01 [facility] [address] [address] Apr, Hyperinsulinemia E16.1 [facility] [address] [address] Mar, Acute non-recurrent maxillary sinusitis J01.00 [place] [address] [address] Feb, Cellulitis of unspecified part of limb L03.119 ; Spider bite wound, accidental or unintentional, subsequent encounter T63.301D and BMI 50.0-59.9, adult Z68.43 [facility] [address] [address] Jan, [place] [address] [address] Jan, Urinary tract infection, site unspecified N39.0 [facility] [address] [address] Jan, Acute gastritis without hemorrhage, unspecified gastritis type K29.00 [place] [address] [address] Dec, Pain in right leg M79.604 [place] [address] [address] Dec, Hyperinsulinemia E16.1 and Pain in right leg M79.604 [place] [address] [address] Dec, Angioedema, initial encounter T78.3XXA [place] [address] [address] 15 Dec, 2016 Dental examination Z01.20 [facility] [id number] [place] [address] 13 Dec, 2016 [facility] [address] [id number] [place] [address] Dec, Burning with urination R30.0 and Acute cystitis with hematuria N30.01 [facility] [address] [place] [id number] [place] [address] Oct, [facility] [address] [id number] [place] [address] Sep, [facility] [address] [place] [id number] [place] [address] Aug, Hyperinsulinemia E16.1 [facility] [address] [place] [address] [id number] [place] [address] Aug, [facility] [address] [place] [id number] [place] [address] Jul, [facility] [address] [id number] [place] [address] Jul, Chondromalacia, left knee M94.262 and Acute lateral meniscus tear of left knee, initial encounter S83.282A [place] [address] [place] [id number] [place] [address] Jul, [facility] [address] [address] Jun, Hyperinsulinemia E16.1 [facility] [address] [place] [id number] [place] [address] Jun, Dysuria R30.0 ; Back pain M54.9 ; Acute pain of left knee M25.562 and Hyperinsulinemia E16.1 [facility] [address] [place] [id number] [place] [address] 14 Jun, 2016 Acute non-recurrent maxillary sinusitis J01.00 [facility] [id number] [place] [address] Jun, Dysuria R30.0 [facility] [address] [address] Jun, Dysuria R30.0 [facility] [address] [address] Jun, [facility] [address] [address] May, Dysuria R30.0 and Acute cystitis with hematuria N30.01 [facility] [address] [address] May, Hyperinsulinemia E16.1 [facility] [address] [address] May, [facility] [address] [address] May, Sore throat J02.9 [facility] [address] [address] May, [facility] [address] [address] Mar, Hyperinsulinemia E16.1 [facility] [id number] [place] [address] Jan, Hyperinsulinemia E16.1 [facility] [address] [address] Dec, DM neuro manif type II E11.49 [facility] [address] [address] November, Hyperinsulinemia E16.1 and Hypertension I10 [facility] [address] [address] Oct, [facility] [address] [address] Oct, Hyperinsulinemia E16.1 [facility] [address] [id number] [place] [address] 20 Oct, 2015 Pain, unspecified R52 [facility] [id number] [place] [address] 14 Oct, 2015 Pain in right foot M79.671 and Hyperinsulinemia E16.1 [facility] [address] [address] 14 Oct, 2015 Hyperinsulinemia E16.1 [facility] [address] [address] 12 Oct, 2015 Hyperinsulinemia E16.1 [facility] [address] [address] 17 Aug, 2015 Hypertension I10 and Viral illness B34.9 [facility] [id number] [place] [address] 18 May, 2015 Back pain M54.9 [facility] [id number] [place] [address] 14 Oct, 2014 [facility] [id number] [place] [address] Oct, [facility] [id number] [place] [address] 30 Sep, 2014 [facility] [id number] [place] [address] 30 Sep, 2014 [facility] [id number] [place] [address] 17 Sep, 2014 [facility] [id number] [place] [address] 17 Sep, 2014 [facility] [id number] [place] [address] 11 Sep, 2014 [facility] [id number] [place] [address] 11 Sep, 2014 [facility] [place] [facility] [address] [id number] [place] [address] Sep, 2014 [facility] [place] [facility] [address] [id number] [place] [address] Sep, 2014 [facility] [place] [facility] [address] [id number] [place] [address] Sep, 2014 [facility] [place] [facility] [address] [id number] [place] [address] Sep, 2014 [facility] [place] [facility] [address] [id number] [place] [address] Sep, 2014 [facility] [place] [facility] [address] [id number] [place] [address] Sep, 2014 [facility] [place] [facility] [address] [id number] [place] [address] Mar, 2013 [facility] [place] [facility] [address] [id number] [place] [address] Mar, [facility] [place] [facility] [address] [id number] [place] [address] Feb, [facility] [place] [facility] [address] [id number] [place] [address] Feb, [facility] [place] [facility] [address] [id number] [place] [address] Feb, [facility] [place] [facility] [address] [id number] [place] [address] Feb, [facility] [place] [facility] [address] [id number] [place] [address] Dec, [facility] [place] [facility] [address] [id number] [place] [address] Dec, [facility] [place] [facility] [address] [id number] [place] [address] Dec, [facility] [place] [facility] [address] [id number] [place] [address] Dec, [facility] [place] [facility] [address] [id number] [place] [address] Dec, [facility] [place] [facility] [address] [id number] [place] [address] Dec, [facility] [place] [facility] [address] [id number] [place] [address] Dec, [facility] [place] [facility] [address] [id number] [place] [address] Sep, [facility] [place] [facility] [address] [id number] [place] [address] Sep, [facility] [place] [facility] [address] [id number] [place] [address] Sep, [facility] [place] [facility] [address] [id number] [place] [address] Sep, [facility] [place] [facility] [address] [id number] [place] [address] Sep, [facility] [place] [facility] [address] [id number] [place] [address] Sep, [facility] [place] [facility] [address] [id number] [place] [address] Sep, [facility] [place] [facility] [address] [id number] [place] [address] Sep, [facility] [place] [facility] [address] [id number] [place] [address] Jul, [facility] [place] [facility] [address] [id number] [place] [address] Jul, [facility] [place] [facility] [address] [id number] [place] [address] Jun, [facility] [place] [facility] [address] [id number] [place] [address] Jun, [facility] [place] [facility] [address] [id number] [place] [address] 18 May, 2013 [facility] [place] [facility] [address] [id number] [place] [address] May, [facility] [place] [facility] [address] [id number] [place] [address] May, [facility] [place] [facility] [address] [id number] [place] [address] May, [facility] [place] [facility] [address] [id number] [place] [address] May, [facility] [place] [facility] [address] [id number] [place] [address] May, [facility] [place] [facility] [address] [id number] [place] [address] May, [facility] [place] [facility] [address] [id number] [place] [address] Apr, [facility] [place] [facility] [address] [id number] [place] [address] Apr, [facility] [place] [facility] [address] [id number] [place] [address] Apr, [facility] [place] [facility] [address] [id number] [place] [address] Apr, [facility] [place] [facility] [address] [id number] [place] [address] 30 Apr, 2013 [facility] [place] [facility] [address] [id number] [place] [address] 30 Apr, 2013 [facility] [place] [facility] [address] [id number] [place] [address] Mar, [facility] [place] [facility] [address] [id number] [place] [address] Feb, [facility] [place] [facility] [address] [id number] [place] [address] Jan, [facility] [address] [id number] [place] [address] Jan, [facility] [place] [facility] [address] [id number] [place] [address] Jan, [facility] [place] [facility] [address] [id number] [place] [address] Dec, [facility] [place] [facility] [address] [id number] [place] [address] November, [facility] [place] [facility] [address] [id number] [place] [address] November, [facility] [place] [facility] [address] [id number] [place] [address] November, [facility] [place] [facility] [address] [id number] [place] [address] November, [facility] [place] [facility] [address] [id number] [place] [address] Oct, [facility] [place] [facility] [address] [id number] [place] [address] Aug, [facility] [place] [facility] [address] [id number] [place] [address] Aug, [facility] [place] [facility] [address] [id number], [place] [address] Aug, [facility] [place] [facility] [address] [id number], [place] [address] Aug, [facility] [place] [facility] [address] [id number] [place] [address] Aug, [facility] [place] [facility] [address] [id number] [place] [address] Aug, [facility] [place] [facility] [address] [id number] [place] [address] Jul, [facility] [place] [facility] [address] [id number] [place] [address] May, [facility] [place] [facility] [address] [id number] [place] [address] May, [facility] [place] [facility] [address] [id number] [place] [address] May, [facility] [place] [facility] [address] [id number] [place] [address] May, [facility] [place] [facility] [address] [id number] [place] [address] May, [facility] [place] [facility] [address] [id number] [place] [address] May, [facility] [place] [facility] [address] [id number] [place] [address] May, [facility] [place] [facility] [address] [facility] [id number] [place] [address] Apr, [facility] [place] [facility] [address] [id number] [place] [address] Apr, [facility] [place] [facility] [address] [facility] [id number] [place] [address] Apr, [facility] [place] [facility] [address] [facility] [id number] [place] [address] Apr, [facility] [place] [facility] [address] [facility] [id number] [place] [address] Apr, [facility] [place] [facility] [address] [id number] [place] [address] Sep, [facility] [place] [facility] [address] [id number] [place] [address] 24 Aug, 2011 [facility] [place] [facility] [address] [facility] [id number] [place] [address] 16 Aug, 2011 [facility] [place] [facility] [address] [facility] [id number] [place] [address] Aug, [facility] [id number] [place] [address] Aug, [facility] [id number] [place] [address] Aug, [facility] [id number] [place] [address] Jul, [facility] [id number] [place] [address] Jul, [facility] [id number] [place] [address] Jul, [facility] [id number] [place] [address] Jun, [facility] [id number] [place] [address] Jun, [facility] [id number] [place] [address] Jun, [facility] [id number] [place] [address] May, [facility] [id number] [place] [address] Apr, [facility] [id number] [place] [address] Apr, [facility] [id number] [place] [address] Apr, [facility] [id number] [address] Apr, IMMUNIZATIONS No Known Immunizations SOCIAL HISTORY Never Assessed REASON FOR VISIT EMR-[facility] [place] CARE VITAL SIGNS MEDICATIONS Unknown [...]
--- OUTSIDE RECORDS SUMMARY | 2018-12-07 23:03 | XMS REPORT ---
Author Author Migration, Doctor Organization [facility] Address Unknown Phone Unavailable Care Team Providers Care Blood Tester Fowl Name Role Phone Migration, Doctor Unavailable Unavailable PROBLEMS Type Condition ICD9-CM Code SOT73-SH Code Onset Dates Condition Status SNOMED Code Problem Intractable migraine without aura and without status migrainosus G43.019 Active 813165909 Problem Irritable bowel syndrome with diarrhea K58.0 Active 201498132 Problem Sleep apnea in adult G47.30 Active 86032703 Problem Hyperinsulinemia E16.1 Active 49919278 Problem Primary osteoarthritis of left knee M17.12 Active 367560370516646 Problem Tension headache G44.209 Active 090596062 Problem HTN (hypertension) I10 Active 89739629 Problem DM neuro manif type II E11.49 Active 49544094 Problem Menorrhagia with irregular cycle N92.1 Active 038131285 Problem Iron deficiency anemia due to chronic blood loss D50.0 Active 625043440 Problem Allergy to food Z91.018 Active 254315721 Problem Other chronic pain G89.29 Active 78931947 ALLERGIES No Information ENCOUNTERS Encounter Location Date Diagnosis [facility] [address] [address] 08 Oct, 2018 [facility] [address] [address] Sep, [facility] [address] [address] Sep, Intractable migraine without aura and without status migrainosus G43.019 ; Allergic reaction to food, subsequent encounter T78.1XXD ; HTN (hypertension) I10 and Morbid obesity E66.01 [facility] [address] [place] [id number] [place] [address] Jul, [facility] WALK IN [facility] [address] [address] Jul, Rash R21 and BMI 50.0-59.9, adult Z68.43 [place] [address] [address] Jun, Hyperinsulinemia E16.1 and Menorrhagia with irregular cycle N92.1 [place] [address] [address] Jun, Primary osteoarthritis of left knee M17.12 [facility] WALK IN [place] [address] [address] Jun, Sore throat J02.9 ; Acute nasopharyngitis J00 and BMI 50.0-59.9, adult Z68.43 [place] [address] [address] 05 Jun, 2018 Other chronic pain G89.29 ; Pain in left knee M25.562 ; Hyperinsulinemia E16.1 ; Menorrhagia with irregular cycle N92.1 and BMI 50.0-59.9, adult Z68.43 [facility] WALK IN [place] [address] [address] Apr, BMI 50.0-59.9, adult Z68.43 ; Dysuria R30.0 and Acute UTI N39.0 [place] [address] [address] 18 Apr, 2018 [place] [address] [address] Apr, Encounter for immunization Z23 [place] [address] [address] 27 Mar, 2018 Acute midline low back pain without sciatica M54.5 ; Acute pain of left knee M25.562 and BMI 50.0-59.9, adult Z68.43 [place] [address] [address] 24 Mar, 2018 Intractable migraine without aura and without status migrainosus G43.019 and BMI 50.0-59.9, adult Z68.43 [facility] [id number] [place] [address] Mar, Bronchitis J40 ; Allergy to food Z91.018 and BMI 50.0-59.9, adult Z68.43 [facility] [id number] [place] [address] Mar, Bronchitis J40 ; Wheezing on both sides of chest R06.2 and BMI 50.0- 59.9, adult Z68.43 [place] [id number] [place] [address] Feb, Pain in right leg M79.604 [place] [address] [address] Jan, Pneumonia of left lung due to infectious organism, unspecified part of lung J18.9 [place] [address] [address] Dec, Pneumonia due to Mycoplasma pneumoniae, unspecified laterality, unspecified part of lung J15.7 and BMI 50.0-59.9, adult Z68.43 [place] [id number] [place] [address] Dec, [place] [id number] [place] [address] Dec, Bronchitis J40 and BMI 50.0-59.9, adult Z68.43 [place] [address] [id number] [place] [address] November, Bronchitis J40 ; LLQ pain R10.32 and BMI 50.0-59.9, adult Z68.43 [place] [id number] [place] [address] November, Iron deficiency anemia due to chronic blood loss D50.0 [place] [address] [address] November, [facility] [id number] [place] [address] November, Iron deficiency anemia due to chronic blood loss D50.0 ; DM neuro manif type II E11.49 ; Menorrhagia with irregular cycle N92.1 and BMI 50.0- 59.9, adult Z68.43 [facility] WALK IN [facility] [id number] [place] [address] Oct, Sore throat J02.9 and Acute nasopharyngitis J00 [facility] WALK IN [facility] [id number] [place] [address] Oct, Left leg pain M79.605 and BMI 50.0-59.9, adult Z68.43 [facility] WALK IN [facility] [id number] [place] [address] Sep, Upper respiratory tract infection, unspecified type J06.9 and BMI 50.0-59.9, adult Z68.43 [place] [id number] [place] [address] Sep, Menorrhagia with irregular cycle N92.1 ; Sleep apnea in adult G47.30 and BMI 50.0-59.9, adult Z68.43 [place] [id number] [place] [address] Sep, [place] [id number] [place] [address] Aug, [place] [id number] [place] [address] Aug, [place] [id number] [place] [address] Aug, [place] [id number] [place] [address] Aug, LLQ pain R10.32 ; Irritable bowel syndrome with diarrhea K58.0 ; Change in bowel habits R19.4 ; Essential hypertension I10 and BMI 50.0-59.9, adult Z68.43 [place] [id number] [place] [address] Aug, [facility] [id number] [place] [address] Aug, [facility] WALK IN [facility] [address] [address] Aug, Essential hypertension I10 and BMI 50.0-59.9, adult Z68.43 [place] [address] [address] Aug, [place] [address] [address] 08 Aug, 2017 [facility] WALK IN [place] [address] [address] 02 Aug, 2017 Allergic disorder, initial encounter T78.40XA and BMI 50.0-59.9, adult Z68.43 [facility] [address] [address] Jul, Other atopic dermatitis L20.89 and BMI 50.0-59.9, adult Z68.43 [place] [address] [place] [id number] [place] [address] 16 Jul, 2017 Intractable migraine without aura and without status migrainosus G43.019 and BMI 50.0-59.9, adult Z68.43 [facility] [id number] [place] [address] Jun, DM neuro manif type II E11.49 ; Tension headache G44.209 ; Breast cancer screening Z12.31 and BMI 50.0-59.9, adult Z68.43 [facility] [id number] [place] [address] Jun, Tension headache G44.209 ; Breast cancer screening Z12.31 ; BMI 50.0- 59.9, adult Z68.43 and DM neuro manif type II E11.49 [facility] [address] [address] Apr, Dysuria R30.0 and Acute cystitis with hematuria N30.01 [facility] [address] [address] Apr, Hyperinsulinemia E16.1 [facility] [address] [address] Mar, Acute non-recurrent maxillary sinusitis J01.00 [place] [address] [address] Feb, Cellulitis of unspecified part of limb L03.119 ; Spider bite wound, accidental or unintentional, subsequent encounter T63.301D and BMI 50.0-59.9, adult Z68.43 [facility] [address] [address] Jan, [place] [address] [address] Jan, Urinary tract infection, site unspecified N39.0 [facility] [address] [address] Jan, Acute gastritis without hemorrhage, unspecified gastritis type K29.00 [place] [address] [address] Dec, Pain in right leg M79.604 [place] [address] [address] Dec, Hyperinsulinemia E16.1 and Pain in right leg M79.604 [place] [address] [address] Dec, Angioedema, initial encounter T78.3XXA [place] [address] [address] 15 Dec, 2016 Dental examination Z01.20 [facility] [id number] [place] [address] 13 Dec, 2016 [facility] [id number] [place] [address] Dec, Burning with urination R30.0 and Acute cystitis with hematuria N30.01 [facility] [id number] [place] [address] Oct, [facility] [address] [id number] [place] [address] Sep, [facility] [id number] [place] [address] Aug, Hyperinsulinemia E16.1 [facility] [address] [id number] [place] [address] Aug, [facility] [id number] [place] [address] Jul, [facility] [id number] [place] [address] Jul, Chondromalacia, left knee M94.262 and Acute lateral meniscus tear of left knee, initial encounter S83.282A [place] [address] [id number] [place] [address] Jul, [facility] [address] [address] Jun, Hyperinsulinemia E16.1 [facility] [id number] [place] [address] Jun, Dysuria R30.0 ; Back pain M54.9 ; Acute pain of left knee M25.562 and Hyperinsulinemia E16.1 [facility] [id number] [place] [address] 14 Jun, 2016 Acute non-recurrent maxillary sinusitis J01.00 [facility] [id number] [place] [address] Jun, Dysuria R30.0 [facility] [address] [address] Jun, Dysuria R30.0 [facility] [address] [address] Jun, [facility] [address] [address] May, Dysuria R30.0 and Acute cystitis with hematuria N30.01 [facility] [address] [address] May, Hyperinsulinemia E16.1 [facility] [address] [address] May, [facility] [address] [address] May, Sore throat J02.9 [facility] [address] [address] May, [facility] [address] [address] Mar, Hyperinsulinemia E16.1 [facility] [id number] [place] [address] Jan, Hyperinsulinemia E16.1 [facility] [address] [address] Dec, DM neuro manif type II E11.49 [facility] [address] [address] November, Hyperinsulinemia E16.1 and Hypertension I10 [facility] [address] [address] Oct, [facility] [address] [address] Oct, Hyperinsulinemia E16.1 [facility] [id number] [place] [address] 20 Oct, 2015 Pain, unspecified R52 [facility] [id number] [place] [address] 14 Oct, 2015 Pain in right foot M79.671 and Hyperinsulinemia E16.1 [facility] [address] [address] 14 Oct, 2015 Hyperinsulinemia E16.1 [facility] [address] [address] 12 Oct, 2015 Hyperinsulinemia E16.1 [facility] [address] [address] 17 Aug, 2015 Hypertension I10 and Viral illness B34.9 [facility] [id number] [place] [address] 18 May, 2015 Back pain M54.9 [facility] [id number] [place] [address] 14 Oct, 2014 [facility] [id number] [place] [address] Oct, [facility] [id number] [place] [address] 30 Sep, 2014 [facility] [id number] [place] [address] 30 Sep, 2014 [facility] [id number] [place] [address] 17 Sep, 2014 [facility] [id number] [place] [address] 17 Sep, 2014 [facility] [id number] [place] [address] 11 Sep, 2014 [facility] [id number] [place] [address] 11 Sep, 2014 [facility] [place] [facility] [address] [id number] [place] [address] Sep, 2014 [facility] [place] [facility] [address] [id number] [place] [address] Sep, 2014 [facility] [place] [facility] [address] [id number] [place] [address] Sep, 2014 [facility] [place] [facility] [address] [id number] [place] [address] Sep, 2014 [facility] [place] [facility] [address] [id number] [place] [address] Sep, 2014 [facility] [place] [facility] [address] [id number] [place] [address] Sep, 2014 [facility] [place] [facility] [address] [id number] [place] [address] Mar, 2013 [facility] [place] [facility] [address] [id number] [place] [address] Mar, [facility] [place] [facility] [address] [id number] [place] [address] Feb, [facility] [place] [facility] [address] [id number] [place] [address] Feb, [facility] [place] [facility] [address] [id number] [place] [address] Feb, [facility] [place] [facility] [address] [id number] [place] [address] Feb, [facility] [place] [facility] [address] [id number] [place] [address] Dec, [facility] [place] [facility] [address] [id number] [place] [address] Dec, [facility] [place] [facility] [address] [id number] [place] [address] Dec, [facility] [place] [facility] [address] [id number] [place] [address] Dec, [facility] [place] [facility] [address] [id number] [place] [address] Dec, [facility] [place] [facility] [address] [id number] [place] [address] Dec, [facility] [place] [facility] [address] [id number] [place] [address] Dec, [facility] [place] [facility] [address] [id number] [place] [address] Sep, [facility] [place] [facility] [address] [id number] [place] [address] Sep, [facility] [place] [facility] [address] [id number] [place] [address] Sep, [facility] [place] [facility] [address] [id number] [place] [address] Sep, [facility] [place] [facility] [address] [id number] [place] [address] Sep, [facility] [place] [facility] [address] [id number] [place] [address] Sep, [facility] [place] [facility] [address] [id number] [place] [address] Sep, [facility] [place] [facility] [address] [id number] [place] [address] Sep, [facility] [place] [facility] [address] [id number] [place] [address] Jul, [facility] [place] [facility] [address] [id number] [place] [address] Jul, [facility] [place] [facility] [address] [id number] [place] [address] Jun, [facility] [place] [facility] [address] [id number] [place] [address] Jun, [facility] [place] [facility] [address] [id number] [place] [address] 18 May, 2013 [facility] [place] [facility] [address] [id number] [place] [address] May, [facility] [place] [facility] [address] [id number] [place] [address] May, [facility] [place] [facility] [address] [id number] [place] [address] May, [facility] [place] [facility] [address] [id number] [place] [address] May, [facility] [place] [facility] [address] [id number] [place] [address] May, [facility] [place] [facility] [address] [id number] [place] [address] May, [facility] [place] [facility] [address] [id number] [place] [address] Apr, [facility] [place] [facility] [address] [id number] [place] [address] Apr, [facility] [place] [facility] [address] [id number] [place] [address] Apr, [facility] [place] [facility] [address] [id number] [place] [address] Apr, [facility] [place] [facility] [address] [id number] [place] [address] 30 Apr, 2013 [facility] [place] [facility] [address] [id number] [place] [address] 30 Apr, 2013 [facility] [place] [facility] [address] [id number] [place] [address] Mar, [facility] [place] [facility] [address] [id number] [place] [address] Feb, [facility] [place] [facility] [address] [id number] [place] [address] Jan, [facility] [address] [id number] [place] [address] Jan, [facility] [place] [facility] [address] [id number] [place] [address] Jan, [facility] [place] [facility] [address] [id number] [place] [address] Dec, [facility] [place] [facility] [address] [id number] [place] [address] November, [facility] [place] [facility] [address] [id number] [place] [address] November, [facility] [place] [facility] [address] [id number] [place] [address] November, [facility] [place] [facility] [address] [id number] [place] [address] November, [facility] [place] [facility] [address] [id number] [place] [address] Oct, [facility] [place] [facility] [address] [id number] [place] [address] Aug, [facility] [place] [facility] [address] [id number] [place] [address] Aug, [facility] [place] [facility] [address] [id number] [address] Aug, [facility] [place] [facility] [address] [id number], [place] [address] Aug, [facility] [place] [facility] [address] [id number] [place] [address] Aug, [facility] [place] [facility] [address] [id number] [place] [address] Aug, [facility] [place] [facility] [address] [id number] [place] [address] Jul, [facility] [place] [facility] [address] [id number] [place] [address] May, [facility] [place] [facility] [address] [id number] [place] [address] May, [facility] [place] [facility] [address] [id number] [place] [address] May, [facility] [place] [facility] [address] [id number] [place] [address] May, [facility] [place] [facility] [address] [id number] [place] [address] May, [facility] [place] [facility] [address] [id number] [place] [address] May, [facility] [place] [facility] [address] [id number] [place] [address] May, [facility] [place] [facility] [address] [facility] [id number] [place] [address] Apr, [facility] [place] [facility] [address] [id number] [place] [address] Apr, [facility] [place] [facility] [address] [facility] [id number] [place] [address] Apr, [facility] [place] [facility] [address] [facility] [id number] [place] [address] Apr, [facility] [place] [facility] [address] [facility] [id number] [place] [address] Apr, [facility] [place] [facility] [address] [id number] [place] [address] Sep, [facility] [place] [facility] [address] [id number] [place] [address] 24 Aug, 2011 [facility] [place] [facility] [address] [facility] [id number] [place] [address] 16 Aug, 2011 [facility] [place] [facility] [address] [facility] [id number] [place] [address] Aug, [facility] [id number] [place] [address] Aug, [facility] [id number] [place] [address] Aug, [facility] [id number] [place] [address] Jul, [facility] [id number] [place] [address] Jul, [facility] [id number] [place] [address] Jul, [facility] [id number] [place] [address] Jun, [facility] [id number] [place] [address] Jun, [facility] [id number] [place] [address] Jun, [facility] [id number] [place] [address] May, [facility] [id number] [place] [address] Apr, [facility] [id number] [place] [address] Apr, [facility] [id number] [place] [address] Apr, [facility] [id number] [address] Apr, IMMUNIZATIONS No Known Immunizations SOCIAL HISTORY Never Assessed REASON FOR VISIT EMR-[facility] [place] PLAN OF CARE [...]
--- OUTSIDE RECORDS SUMMARY | 2018-12-07 23:04 | XMS REPORT ---
Author Author CARISA KHAN Organization [facility] Address [address] [place] [address] Care Team Providers Care Computing Tutor Name Role Phone CARISA KHAN Unavailable PROBLEMS Type Condition ICD9-CM Code QTH71-ED Code Onset Dates Condition Status SNOMED Code Problem Tension headache G44.209 Active 819491991 Problem Essential hypertension I10 Active 09293383 Problem Intractable migraine without aura and without status migrainosus G43.019 Active 389675526 Problem Hyperinsulinemia E16.1 Active 64220296 Problem DM neuro manif type II E11.49 Active 37338245 Problem Other chronic pain G89.29 Active 32489191 Problem Allergy to food Z91.018 Active 030803512 Problem Sleep apnea in adult G47.30 Active 23013595 Problem Irritable bowel syndrome with diarrhea K58.0 Active 626000466 Problem Iron deficiency anemia due to chronic blood loss D50.0 Active 829705177 Problem Menorrhagia with irregular cycle N92.1 Active 500944453 ALLERGIES Substance Reaction Event Type Date Status Codeine hives Drug Allergy Jun, Active liquid codeine/ pt. can tolerate drugs like hydroco Unknown Non Drug Allergy Jun, Active Red Onion hives Non Drug Allergy Jun, Active Chlorthalidone 25 Mg Tablet hives Non Drug Allergy Jun, Active Hydrochlorothiazide 25 Mg Tablet hives Non Drug Allergy Jun, Active ENCOUNTERS Encounter Location Date Diagnosis [facility] [address] [facility] [id number] [address] Jun, [facility] [address] [place] [id number] [place] [address] Jun, Sore throat J02.9 ; Acute nasopharyngitis J00 and BMI 50.0-59.9, adult Z68.43 [facility] [address] [place] [address] Jun, Other chronic pain G89.29 ; Pain in left knee M25.562 ; Hyperinsulinemia E16.1 ; Menorrhagia with irregular cycle N92.1 and BMI 50.0-59.9, adult Z68.43 [facility] [address] [address] Apr, BMI 50.0-59.9, adult Z68.43 ; Dysuria R30.0 and Acute UTI N39.0 [place] [address] [address] Apr, [place] [address] [address] Apr, Encounter for immunization Z23 [place] [address] [address] Mar, Acute midline low back pain without sciatica M54.5 ; Acute pain of left knee M25.562 and BMI 50.0-59.9, adult Z68.43 [place] [address] [address] Mar, Intractable migraine without aura and without status migrainosus G43.019 and BMI 50.0-59.9, adult Z68.43 [place] [address] [address] Mar, Bronchitis J40 ; Allergy to food Z91.018 and BMI 50.0-59.9, adult Z68.43 [facility] [address] [place] [id number] [place] [address] Mar, Bronchitis J40 ; Wheezing on both sides of chest R06.2 and BMI 50.0- 59.9, adult Z68.43 [place] [id number] [address] Feb, Pain in right leg M79.604 [place] [address] [place] [address] Jan, Pneumonia of left lung due to infectious organism, unspecified part of lung J18.9 [place] [address] [address] Dec, Pneumonia due to Mycoplasma pneumoniae, unspecified laterality, unspecified part of lung J15.7 and BMI 50.0-59.9, adult Z68.43 [place] [address] [address] Dec, [place] [address] [address] Dec, Bronchitis J40 and BMI 50.0-59.9, adult Z68.43 [place] [address] [address] November, Bronchitis J40 ; LLQ pain R10.32 and BMI 50.0-59.9, adult Z68.43 [place] [address] [address] November, Iron deficiency anemia due to chronic blood loss D50.0 [place] [address] [address] November, [place] [address] [address] November, Iron deficiency anemia due to chronic blood loss D50.0 ; DM neuro manif type II E11.49 ; Menorrhagia with irregular cycle N92.1 and BMI 50.0- 59.9, adult Z68.43 [facility] [address] [address] Oct, Sore throat J02.9 and Acute nasopharyngitis J00 [facility] [address] [address] Oct, Left leg pain M79.605 and BMI 50.0-59.9, adult Z68.43 [facility] [id number] [place] [address] 17 Sep, 2017 Upper respiratory tract infection, unspecified type J06.9 and BMI 50.0-59.9, adult Z68.43 [facility] [address] [place] [id number] [place] [address] 08 Sep, 2017 Menorrhagia with irregular cycle N92.1 ; Sleep apnea in adult G47.30 and BMI 50.0-59.9, adult Z68.43 [facility] [address] [place] [id number] [place] [address] Sep, [facility] [address] [place] [id number] [place] [address] Aug, [facility] [address] [place] [id number] [place] [address] Aug, [facility] [address] [place] [id number] [place] [address] Aug, [facility] [address] [place] [id number] [place] [address] Aug, LLQ pain R10.32 ; Irritable bowel syndrome with diarrhea K58.0 ; Change in bowel habits R19.4 ; Essential hypertension I10 and BMI 50.0-59.9, adult Z68.43 [facility] [id number] [place] [address] Aug, [facility] [address] [place] [id number] [place] [address] Aug, [facility] [address] [place] [id number] [place] [address] Aug, Essential hypertension I10 and BMI 50.0-59.9, adult Z68.43 [facility] [id number] [place] [address] Aug, [facility] [address] [place] [id number] [place] [address] Aug, [facility] [place] [address] [address] 02 Aug, 2017 Allergic disorder, initial encounter T78.40XA and BMI 50.0-59.9, adult Z68.43 [facility] [place] [address] [address] Jul, Other atopic dermatitis L20.89 and BMI 50.0-59.9, adult Z68.[address] [address] Jul, Intractable migraine without aura and without status migrainosus G43.019 and BMI 50.0-59.9, adult Z68.[address] [address] Jun, DM neuro manif type II E11.49 ; Tension headache G44.209 ; Breast cancer screening Z12.31 and BMI 50.0-59.9, adult Z68.[address] [address] Jun, Tension headache G44.209 ; Breast cancer screening Z12.31 ; BMI 50.0- 59.9, adult Z68.43 and DM neuro manif type II E11.49 [facility] [place] [id number] [place] [address] Apr, Dysuria R30.0 and Acute cystitis with hematuria N30.[address] [address] Apr, Hyperinsulinemia E16.[address] [address] Mar, Acute non-recurrent maxillary sinusitis J01.[address] [address] Feb, Cellulitis of unspecified part of limb L03.119 ; Spider bite wound, accidental or unintentional, subsequent encounter T63.301D and BMI 50.0-59.9, adult Z68.43 [place] [address] [address] Jan, [place] [address] [address] Jan, Urinary tract infection, site unspecified N39.0 [place] [address] [address] Jan, Acute gastritis without hemorrhage, unspecified gastritis type K29.00 [place] [address] [address] Dec, Pain in right leg M79.604 [place] [address] [address] Dec, Hyperinsulinemia E16.1 and Pain in right leg M79.604 [place] [address] [address] Dec, Angioedema, initial encounter T78.3XXA [place] [address] [address] Dec, Dental examination Z01.20 [place] [address] [address] Dec, [place] [address] [address] Dec, Burning with urination R30.0 and Acute cystitis with hematuria N30.01 [place] [address] [address] Oct, [place] [address] [address] Sep, [place] [address] [address] Aug, Hyperinsulinemia E16.1 [facility] [address] [place] [id number] [place] [address] Aug, [facility] [address] [place] [id number] [place] [address] Jul, [facility] [address] [place] [id number] [place] [address] Jul, Chondromalacia, left knee M94.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 and Acute lateral meniscus tear of left knee, initial encounter S83.282A [facility] [address] [place] [id number] [place] [address] Jul, [facility] [address] [place] [id number] [place] [address] Jun, Hyperinsulinemia E16.1 [facility] [address] [place] [id number] [place] [address] Jun, Dysuria R30.0 ; Back pain M54.9 ; Acute pain of left knee M25.562 and Hyperinsulinemia E16.1 [facility] [address] [place] [id number] [place] [address] Jun, Acute non-recurrent maxillary sinusitis J01.00 [facility] [address] [place] [id number] [place] [address] Jun, Dysuria R30.0 [facility] [address] [place] [id number] [place] [address] Jun, Dysuria R30.0 [facility] [address] [place] [id number] [place] [address] Jun, [facility] [address] [place] [id number] [place] [address] May, Dysuria R30.0 and Acute cystitis with hematuria N30.01 [facility] [address] [place] [id number] [place] [address] May, Hyperinsulinemia E16.1 [facility] [address] [place] [id number] [place] [address] May, [facility] [address] [address] May, Sore throat J02.9 [facility] [address] [address] May, [facility] [address] [address] Mar, Hyperinsulinemia E16.1 [facility] [address] [address] Jan, Hyperinsulinemia E16.1 [facility] [address] [address] Dec, DM neuro manif type II E11.49 [facility] [address] [address] November, Hyperinsulinemia E16.1 and Hypertension I10 [facility] [address] [address] Oct, [facility] [address] [address] Oct, Hyperinsulinemia E16.1 [facility] [address] [place] [id number] [place] [address] Oct, Pain, unspecified R52 [facility] [address] [address] 14 Oct, 2015 Pain in right foot M79.671 and Hyperinsulinemia E16.1 [facility] [address] [address] 14 Oct, 2015 Hyperinsulinemia E16.1 [facility] [address] [place] [id number] [place] [address] Oct, Hyperinsulinemia E16.1 [facility] [address] [address] 17 Aug, 2015 Hypertension I10 and Viral illness B34.9 [facility] [id number] [place] [address] May, Back pain M54.9 [facility] [address] [facility] [id number] [place] [address] 14 Oct, 2014 [facility] [address] [facility] [id number] [place] [address], [place] [address] Oct, [facility] [address] [facility] [id number] [place] [address], [place] [address] 30 Sep, 2014 [facility] [address] [place] [id number] [place] [address], [place] [address] 30 Sep, 2014 [facility] [address] [place] [id number] [place] [address], [place] [address] Sep, [facility] [address] [place] [id number] [place] [address], [place] [address] Sep, [facility] [address] [place] [id number] [place] [address] Sep, [facility] [address] [place] [id number] [place] [address] Sep, [facility] [address] [place] [id number] [address] Sep, [facility] [address] [place] [id number] [address] Sep, [facility] [address] [facility] [id number], [place] [address] Sep, [facility] [address] [place] [id number] [address] Sep, [facility] [address] [facility] [id number], [place] [address] Sep, [facility] [address] [address] Sep, [facility] [place] [facility] [address] [id number] [place] [address] Mar, [facility] [place] [facility] [address] [id number] [place] [address] Mar, [facility] [place] [facility] [address] [id number] [place] [address] Feb, [facility] [place] [facility] [address] [id number] [place] [address] Feb, [facility] [place] [facility] [address] [id number] [place] [address] Feb, [facility] [place] [facility] [address] [id number] [place] [address] Feb, [facility] [place] [facility] [address] [id number] [place] [address] Dec, [facility] [place] [facility] [address] [id number] [place] [address] Dec, [facility] [place] [facility] [address] [id number] [place] [address] Dec, [facility] [place] [facility] [address] [id number] [place] [address] Dec, [facility] [place] [facility] [address] [id number], [place] [address] Dec, [facility] [place] [facility] [address] [id number], [place] [address] Dec, [facility] [place] [facility] [address] [id number] [place] [address] Dec, [facility] [place] [facility] [address] [id number] [place] [address] Sep, [facility] [place] [facility] [address] [id number] [place] [address] Sep, [facility] [place] [facility] [address] [id number] [place] [address] Sep, [facility] [place] [facility] [address] [id number] [place] [address] Sep, [facility] [place] [facility] [address] [id number] [place] [address] Sep, [facility] [place] [facility] [address] [id number] [place] [address] Sep, [facility] [place] [facility] [address] [id number] [place] [address] Sep, [facility] [place] [facility] [address] [id number] [place] [address] Sep, [facility] [place] [facility] [address] [id number] [place] [address] Jul, [facility] [place] [facility] [address] [id number] [place] [address] Jul, [facility] [place] [facility] [address] [id number] [place] [address] Jun, [facility] [place] [facility] [address] [id number] [place] [address] Jun, [facility] [place] [facility] [address] [facility] [id number] [place] [address] May, [facility] [place] [facility] [address] [id number] [place] [address] May, [facility] [place] [facility] [address] [id number] [place] [address] May, [facility] [place] [facility] [address] [id number] [place] [address] May, [facility] [place] [facility] [address] [id number] [place] [address] May, [facility] [place] [facility] [address] [id number] [place] [address] May, [facility] [place] [facility] [address] [id number] [place] [address] May, [facility] [place] [facility] [address] [id number] [place] [address] Apr, [facility] [place] [facility] [address] [id number] [place] [address] Apr, [facility] [place] [facility] [address] [id number] [place] [address] Apr, [facility] [place] [facility] [address] [id number] [place] [address] Apr, [facility] [place] [facility] [address] [id number] [place] [address] Apr, [facility] [place] [facility] [address] [id number] [place] [address] Apr, [facility] [place] [facility] [address] [id number] [place] [address] Mar, [facility] [place] [facility] [address] [id number] [place] [address] Feb, [facility] [place] [facility] [address] [id number] [place] [address] Jan, [facility] [place] [facility] [address] [id number] [place] [address] Jan, [facility] [place] [facility] [address] [id number] [address] Jan, [facility] [place] [facility] [address] [id number] [place] [address] Dec, [facility] [place] [facility] [address] [id number] [place] [address] November, [facility] [place] [facility] [address] [id number] [place] [address] November, [facility] [place] [facility] [address] [id number] [place] [address] November, [facility] [address] [id number] [place] [address] November, [facility] [place] [facility] [address] [id number] [place] [address] Oct, [facility] [address] [id number] [place] [address] Aug, [facility] [place] [facility] [address] [id number] [place] [address] Aug, [facility] [address] [id number] [place] [address] Aug, [facility] [place] [facility] [address] [id number] [place] [address] Aug, [facility] [address] [id number] [place] [address] Aug, [facility] [address] [id number] [place] [address] Aug, [facility] [address] [id number] [place] [address] Jul, [facility] [address] [facility] [id number] [place] [address] May, [facility] [address] [id number] [place] [address] May, [facility] [place] [facility] [address] [id number] [place] [address] May, [facility] [place] [facility] [address] [id number] [place] [address] May, [facility] [place] [facility] [address] [id number] [place] [address] May, [facility] [place] [facility] [address] [id number], [place] [address] May, [facility] [place] [facility] [address] [id number] [place] [address] May, [facility] [place] [facility] [address] [id number] [place] [address] Apr, [facility] [place] [facility] [address] [id number] [place] [address] Apr, [facility] [place] [facility] [address] [id number] [place] [address] Apr, [facility] [place] [facility] [address] [id number] [place] [address] Apr, [facility] [place] [facility] [address] [id number] [place] [address] Apr, [facility] [place] [facility] [address] [facility] [id number] [place] [address] Sep, [facility] [place] [facility] [address] [id number] [place] [address] Aug, [facility] [place] [facility] [address] [id number] [place] [address] Aug, [facility] [place] [facility] [address] [place] [id number] [place] [address] Aug, [facility] [place] [facility] [address] [place] [id number] [place] [address] Aug, [facility] [place] [facility] [address] [id number] [address] Aug, [facility] [place] [facility] [address] [id number] [place] [address] Jul, [facility] [place] [facility] [address] [id number] [place] [address] Jul, [facility] [place] [facility] [address] [facility] [id number] [place] [address] Jul, [facility] [place] [facility] [address] [id number], [place] [address] Jun, [facility] [id number] [address] Jun, [facility] [id number] [address] Jun, [facility] [id number] [address] May, [facility] [id number] [place] [id number] Apr, [facility] [id number] [place] [id number] Apr, [facility] [id number] [place] [address] Apr, [facility] [id number], [place] [address] Apr, IMMUNIZATIONS No Known Immunizations SOCIAL HISTORY Never Assessed REASON FOR VISIT Insulin Resistant-gaganjozef,RMA, pt is complaining of her left knee that is very p ainful, been going on for about a month now PLAN OF CARE Activity Details Follow Up 2 Months Reason:knee pain Pending Test MRI : Knee, Left w/o contrast VITAL SIGNS Height 69 in 2018-06-21 Weight 355.2 lbs 2018-06-21 Temperature 97.5 degrees Fahrenheit 2018-06-21 Heart Rate 92 bpm 2018-06-21 Respiratory Rate 20 2018-06-21 Oximetry on room air:96 % 2018-06-21 BMI 52.45 kg/m2 2018-06-21 Blood pressure systolic 110 mmHg 2018-06-21 Blood pressure diastolic 90 mmHg 2018-06-21 MEDICATIONS Medication Instructions Dosage Frequency Start Date End Date Duration Status Flonase 50 MCG/ACT Nasally Once a day 1 spray in each nostril 24h Active Propranolol HCl 10 MG Orally 2 times a day 1 tablet 12h Active HydrOXYzine Pamoate 25 MG Orally every 8 hrs 1- 2 capsule as needed 8h Mar, Active Zyrtec Allergy 10 MG Orally Once a day 1 tablet 24h Active Albuterol Sulfate (2.5 MG/3ML) 0.083% Inhalation 4 times a day 3 ml as needed 6h 25 Dec, 2017 Active Spironolactone 25 MG Orally Once a day 1 tablet 24h Active Diltiazem HCl ER Beads 240 MG Orally Once a day 1 capsule 24h Active Imitrex 50 MG Orally Twice a day 1 tablet as needed 12h 30 Active Losartan Potassium 50 mg Orally Once a day 1 tablet 24h 26 Aug, 2017 90 Active Protonix 40 MG Orally Once a day 1 tablet 24h Active ProAir HFA 108 (90 Base) MCG/ACT Inhalation 4 times a day 2 puffs as needed 6h Dec, 7 days Active Zofran 4 MG Orally every 4 hrs 1 tablet as needed for nausea 4h November, Active Ferrous Sulfate 325 (65 Fe) MG Orally Once a day 1 tablet 24h November, 30 day(s) Active Metformin HCl 500 MG Orally 2 times a day 1 tablet with meals 12h 90 Active Mobic 7.5 MG Orally Once a day 1-2 tablets as needed for leg pain 24h Dec, 30 days Active RESULTS No Results PROCEDURES No Known procedures INSTRUCTIONS MEDICATIONS ADMINISTERED No Known Medications MEDICAL (GENERAL) HISTORY Type Description Date Medical History hypertension Medical History Sleep apnea in adult Surgical History x 3 Surgical History cholecystectomy Surgical History Chemical Stress Test, EKG, Echo 05/2016 Hospitalization History surgeries Hospitalization History UTI VC 05/2016
--- OUTSIDE RECORDS SUMMARY | 2018-12-07 23:04 | XMS REPORT ---
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 Name Role Phone Migration, Doctor Unavailable Unavailable PROBLEMS Type Condition ICD9-CM Code TAC62-QM Code Onset Dates Condition Status SNOMED Code Problem Intractable migraine without aura and without status migrainosus G43.019 Active 371169146 Problem Irritable bowel syndrome with diarrhea K58.0 Active 053224003 Problem Sleep apnea in adult G47.30 Active 60756561 Problem Hyperinsulinemia E16.1 Active 82859827 Problem Primary osteoarthritis of left knee M17.12 Active 003793264628648 Problem Tension headache G44.209 Active 645519364 Problem HTN (hypertension) I10 Active 61594907 Problem DM neuro manif type II E11.49 Active 57770134 Problem Menorrhagia with irregular cycle N92.1 Active 147970097 Problem Iron deficiency anemia due to chronic blood loss D50.0 Active 946565672 Problem Allergy to food Z91.018 Active 555779560 Problem Other chronic pain G89.29 Active 86659465 ALLERGIES No Information ENCOUNTERS Encounter Location Date Diagnosis [facility] [address] [address] 08 Oct, 2018 [facility] [address] [address] Sep, [facility] [address] [address] Sep, Intractable migraine without aura and without status migrainosus G43.019 ; Allergic reaction to food, subsequent encounter T78.1XXD ; HTN (hypertension) I10 and Morbid obesity E66.01 [facility] [address] [id number] [place] [address] Jul, [facility] [address] [address] Jul, Rash R21 and BMI 50.0-59.9, adult Z68.43 [place] [address] [address] Jun, Hyperinsulinemia E16.1 and Menorrhagia with irregular cycle N92.1 [place] [address] [address] Jun, Primary osteoarthritis of left knee M17.12 [facility] [place] [address] [address] Jun, Sore throat J02.9 ; Acute nasopharyngitis J00 and BMI 50.0-59.9, adult Z68.43 [place] [address] [address] 05 Jun, 2018 Other chronic pain G89.29 ; Pain in left knee M25.562 ; Hyperinsulinemia E16.1 ; Menorrhagia with irregular cycle N92.1 and BMI 50.0-59.9, adult Z68.43 [facility] [place] [address] [address] Apr, BMI 50.0-59.9, adult Z68.43 ; Dysuria R30.0 and Acute UTI N39.0 [place] [address] [address] 18 Apr, 2018 [place] [address] [address] Apr, Encounter for immunization Z23 [place] [address] [address] 27 Mar, 2018 Acute midline low back pain without sciatica M54.5 ; Acute pain of left knee M25.562 and BMI 50.0-59.9, adult Z68.43 [place] [address] [address] 24 Mar, 2018 Intractable migraine without aura and without status migrainosus G43.019 and BMI 50.0-59.9, adult Z68.43 [facility] [id number] [place] [address] Mar, Bronchitis J40 ; Allergy to food Z91.018 and BMI 50.0-59.9, adult Z68.43 [facility] [id number] [place] [address] Mar, Bronchitis J40 ; Wheezing on both sides of chest R06.2 and BMI 50.0- 59.9, adult Z68.43 [place] [address] [id number] [place] [address] Feb, Pain in right leg M79.604 [place] [address] [address] Jan, Pneumonia of left lung due to infectious organism, unspecified part of lung J18.9 [place] [address] [address] Dec, Pneumonia due to Mycoplasma pneumoniae, unspecified laterality, unspecified part of lung J15.7 and BMI 50.0-59.9, adult Z68.43 [place] [address] [id number] [place] [address] Dec, [place] [address] [id number] [place] [address] Dec, Bronchitis J40 and BMI 50.0-59.9, adult Z68.43 [place] [id number] [place] [address] November, Bronchitis J40 ; LLQ pain R10.32 and BMI 50.0-59.9, adult Z68.43 [place] [address] [id number] [place] [address] November, Iron deficiency anemia due to chronic blood loss D50.0 [place] [address] [address] November, [facility] [id number] [place] [address] November, Iron deficiency anemia due to chronic blood loss D50.0 ; DM neuro manif type II E11.49 ; Menorrhagia with irregular cycle N92.1 and BMI 50.0- 59.9, adult Z68.43 [facility] [id number] [place] [address] Oct, Sore throat J02.9 and Acute nasopharyngitis J00 [facility] [id number] [place] [address] Oct, Left leg pain M79.605 and BMI 50.0-59.9, adult Z68.43 [facility] [id number] [place] [address] Sep, Upper respiratory tract infection, unspecified type J06.9 and BMI 50.0-59.9, adult Z68.43 [place] [id number] [place] [address] Sep, Menorrhagia with irregular cycle N92.1 ; Sleep apnea in adult G47.30 and BMI 50.0-59.9, adult Z68.43 [place] [address] [id number] [place] [address] Sep, [place] [id number] [place] [address] Aug, [place] [id number] [place] [address] Aug, [place] [id number] [place] [address] Aug, [place] [address] [id number] [place] [address] Aug, LLQ pain R10.32 ; Irritable bowel syndrome with diarrhea K58.0 ; Change in bowel habits R19.4 ; Essential hypertension I10 and BMI 50.0-59.9, adult Z68.43 [place] [id number] [place] [address] Aug, [facility] [id number] [place] [address] Aug, [facility] [address] [address] Aug, Essential hypertension I10 and BMI 50.0-59.9, adult Z68.43 [place] [address] [address] Aug, [place] [address] [address] 08 Aug, 2017 [facility] [place] [address] [address] 02 Aug, 2017 Allergic disorder, initial encounter T78.40XA and BMI 50.0-59.9, adult Z68.43 [facility] [address] [address] Jul, Other atopic dermatitis L20.89 and BMI 50.0-59.9, adult Z68.43 [place] [address] [id number] [place] [address] 16 Jul, 2017 Intractable migraine without aura and without status migrainosus G43.019 and BMI 50.0-59.9, adult Z68.43 [facility] [id number] [place] [address] Jun, DM neuro manif type II E11.49 ; Tension headache G44.209 ; Breast cancer screening Z12.31 and BMI 50.0-59.9, adult Z68.43 [facility] [id number] [place] [address] Jun, Tension headache G44.209 ; Breast cancer screening Z12.31 ; BMI 50.0- 59.9, adult Z68.43 and DM neuro manif type II E11.49 [facility] [address] [address] Apr, Dysuria R30.0 and Acute cystitis with hematuria N30.01 [facility] [address] [address] Apr, Hyperinsulinemia E16.1 [facility] [address] [address] Mar, Acute non-recurrent maxillary sinusitis J01.00 [place] [address] [address] Feb, Cellulitis of unspecified part of limb L03.119 ; Spider bite wound, accidental or unintentional, subsequent encounter T63.301D and BMI 50.0-59.9, adult Z68.43 [facility] [address] [address] Jan, [place] [address] [address] Jan, Urinary tract infection, site unspecified N39.0 [facility] [address] [address] Jan, Acute gastritis without hemorrhage, unspecified gastritis type K29.00 [place] [address] [address] Dec, Pain in right leg M79.604 [place] [address] [address] Dec, Hyperinsulinemia E16.1 and Pain in right leg M79.604 [place] [address] [address] Dec, Angioedema, initial encounter T78.3XXA [place] [address] [address] 15 Dec, 2016 Dental examination Z01.20 [facility] [id number] [place] [address] 13 Dec, 2016 [facility] [address] [id number] [place] [address] Dec, Burning with urination R30.0 and Acute cystitis with hematuria N30.01 [facility] [id number] [place] [address] Oct, [facility] [id number] [place] [address] Sep, [facility] [address] [id number] [place] [address] Aug, Hyperinsulinemia E16.1 [facility] [id number] [place] [address] Aug, [facility] [id number] [place] [address] Jul, [facility] [address] [place] [address] [id number] [place] [address] Jul, Chondromalacia, left knee M94.262 and Acute lateral meniscus tear of left knee, initial encounter S83.282A [place] [address] [id number] [place] [address] Jul, [facility] [address] [address] Jun, Hyperinsulinemia E16.1 [facility] [address] [place] [id number] [place] [address] Jun, Dysuria R30.0 ; Back pain M54.9 ; Acute pain of left knee M25.562 and Hyperinsulinemia E16.1 [facility] [id number] [place] [address] 14 Jun, 2016 Acute non-recurrent maxillary sinusitis J01.00 [facility] [id number] [place] [address] Jun, Dysuria R30.0 [facility] [address] [address] Jun, Dysuria R30.0 [facility] [address] [address] Jun, [facility] [address] [address] May, Dysuria R30.0 and Acute cystitis with hematuria N30.01 [facility] [address] [address] May, Hyperinsulinemia E16.1 [facility] [address] [address] May, [facility] [address] [address] May, Sore throat J02.9 [facility] [address] [address] May, [facility] [address] [address] Mar, Hyperinsulinemia E16.1 [facility] [id number] [place] [address] Jan, Hyperinsulinemia E16.1 [facility] [address] [address] Dec, DM neuro manif type II E11.49 [facility] [address] [address] November, Hyperinsulinemia E16.1 and Hypertension I10 [facility] [address] [address] Oct, [facility] [address] [address] Oct, Hyperinsulinemia E16.1 [facility] [id number] [place] [address] 20 Oct, 2015 Pain, unspecified R52 [facility] [id number] [place] [address] 14 Oct, 2015 Pain in right foot M79.671 and Hyperinsulinemia E16.1 [facility] [address] [address] 14 Oct, 2015 Hyperinsulinemia E16.1 [facility] [address] [address] 12 Oct, 2015 Hyperinsulinemia E16.1 [facility] [address] [address] 17 Aug, 2015 Hypertension I10 and Viral illness B34.9 [facility] [id number] [place] [address] 18 May, 2015 Back pain M54.9 [facility] [id number] [place] [address] 14 Oct, 2014 [facility] [id number] [place] [address] Oct, [facility] [id number] [place] [address] 30 Sep, 2014 [facility] [id number] [place] [address] 30 Sep, 2014 [facility] [id number] [place] [address] 17 Sep, 2014 [facility] [id number] [place] [address] 17 Sep, 2014 [facility] [id number] [place] [address] 11 Sep, 2014 [facility] [id number] [place] [address] 11 Sep, 2014 [facility] [place] [facility] [address] [id number] [place] [address] Sep, 2014 [facility] [place] [facility] [address] [id number] [place] [address] Sep, 2014 [facility] [place] [facility] [address] [id number] [place] [address] Sep, 2014 [facility] [place] [facility] [address] [id number] [place] [address] Sep, 2014 [facility] [place] [facility] [address] [id number] [place] [address] Sep, 2014 [facility] [place] [facility] [address] [id number] [place] [address] Sep, 2014 [facility] [place] [facility] [address] [id number] [place] [address] Mar, 2013 [facility] [place] [facility] [address] [id number] [place] [address] Mar, [facility] [place] [facility] [address] [id number] [place] [address] Feb, [facility] [place] [facility] [address] [id number] [place] [address] Feb, [facility] [place] [facility] [address] [id number] [place] [address] Feb, [facility] [place] [facility] [address] [id number] [place] [address] Feb, [facility] [place] [facility] [address] [id number] [place] [address] Dec, [facility] [place] [facility] [address] [id number] [place] [address] Dec, [facility] [place] [facility] [address] [id number] [place] [address] Dec, [facility] [place] [facility] [address] [id number] [place] [address] Dec, [facility] [place] [facility] [address] [id number] [place] [address] Dec, [facility] [place] [facility] [address] [id number] [place] [address] Dec, [facility] [place] [facility] [address] [id number] [place] [address] Dec, [facility] [place] [facility] [address] [id number] [place] [address] Sep, [facility] [place] [facility] [address] [id number] [place] [address] Sep, [facility] [place] [facility] [address] [id number] [place] [address] Sep, [facility] [place] [facility] [address] [id number] [place] [address] Sep, [facility] [place] [facility] [address] [id number] [place] [address] Sep, [facility] [place] [facility] [address] [id number] [place] [address] Sep, [facility] [place] [facility] [address] [id number] [place] [address] Sep, [facility] [place] [facility] [address] [id number] [place] [address] Sep, [facility] [place] [facility] [address] [id number] [place] [address] Jul, [facility] [place] [facility] [address] [id number] [place] [address] Jul, [facility] [place] [facility] [address] [id number] [place] [address] Jun, [facility] [place] [facility] [address] [id number] [place] [address] Jun, [facility] [place] [facility] [address] [id number] [place] [address] 18 May, 2013 [facility] [place] [facility] [address] [id number] [place] [address] May, [facility] [place] [facility] [address] [id number] [place] [address] May, [facility] [place] [facility] [address] [id number] [place] [address] May, [facility] [place] [facility] [address] [id number] [place] [address] May, [facility] [place] [facility] [address] [id number] [place] [address] May, [facility] [place] [facility] [address] [id number] [place] [address] May, [facility] [place] [facility] [address] [id number] [place] [address] Apr, [facility] [place] [facility] [address] [id number] [place] [address] Apr, [facility] [place] [facility] [address] [id number] [place] [address] Apr, [facility] [place] [facility] [address] [id number] [place] [address] Apr, [facility] [place] [facility] [address] [id number] [place] [address] 30 Apr, 2013 [facility] [place] [facility] [address] [id number] [place] [address] 30 Apr, 2013 [facility] [place] [facility] [address] [id number] [place] [address] Mar, [facility] [place] [facility] [address] [id number] [place] [address] Feb, [facility] [place] [facility] [address] [id number] [place] [address] Jan, [facility] [address] [id number] [place] [address] Jan, [facility] [place] [facility] [address] [id number] [place] [address] Jan, [facility] [place] [facility] [address] [id number] [place] [address] Dec, [facility] [place] [facility] [address] [id number] [place] [address] November, [facility] [place] [facility] [address] [id number] [place] [address] November, [facility] [place] [facility] [address] [id number] [place] [address] November, [facility] [place] [facility] [address] [id number] [place] [address] November, [facility] [place] [facility] [address] [id number] [place] [address] Oct, [facility] [place] [facility] [address] [id number] [place] [address] Aug, [facility] [place] [facility] [address] [id number] [place] [address] Aug, [facility] [place] [facility] [address] [id number] [address] Aug, [facility] [place] [facility] [address] [id number][place] [address] Aug, [facility] [place] [facility] [address] [id number] [place] [address] Aug, [facility] [place] [facility] [address] [id number] [place] [address] Aug, [facility] [place] [facility] [address] [id number] [place] [address] Jul, [facility] [place] [facility] [address] [id number] [place] [address] May, [facility] [place] [facility] [address] [id number] [place] [address] May, [facility] [place] [facility] [address] [id number] [place] [address] May, [facility] [place] [facility] [address] [id number] [place] [address] May, [facility] [place] [facility] [address] [id number] [place] [address] May, [facility] [place] [facility] [address] [id number] [place] [address] May, [facility] [place] [facility] [address] [id number] [place] [address] May, [facility] [place] [facility] [address] [facility] [id number] [place] [address] Apr, [facility] [place] [facility] [address] [id number] [place] [address] Apr, [facility] [place] [facility] [address] [facility] [id number] [place] [address] Apr, [facility] [place] [facility] [address] [facility] [id number] [place] [address] Apr, [facility] [place] [facility] [address] [facility] [id number] [place] [address] Apr, [facility] [place] [facility] [address] [id number] [place] [address] Sep, [facility] [place] [facility] [address] [id number] [place] [address] 24 Aug, 2011 [facility] [place] [facility] [address] [facility] [id number] [place] [address] 16 Aug, 2011 [facility] [place] [facility] [address] [facility] [id number] [place] [address] Aug, [facility] [address] [id number] [address] Aug, [facility] [address] [facility] [id number], [place] [address] Aug, [facility] [id number] [address] Jul, [facility] [address], [place] [address] Jul, [facility] [address], [place] [address] Jul, [facility] [address], [place] [address] Jun, [facility] [address], [place] [address] Jun, [facility] [address], [place] [address] Jun, [facility] [address], [place] [address] May, [facility] [address] [address] Apr, [facility] [id number] [address] Apr, [facility] [id number] [address] Apr, [facility] [id number] [address] Apr, IMMUNIZATIONS No Known Immunizations SOCIAL HISTORY Never Assessed REASON FOR VISIT [facility] PLAN OF CARE VITAL SIGNS MEDICATIONS Unknown Medications RESULTS Name Result Date Reference Range PAP SMEAR 2012-09-07 [employer]PER[employer] TRAINER CYTOLOGY REPORT FOOTNOTE PAP RESULT PROCEDURES No Known procedures INSTRUCTIONS MEDICATIONS ADMINISTERED No Known Medications MEDICAL (GENERAL) HISTORY Type Description Date Medical History hypertension Medical History Sleep apnea in adult Surgical History x 3 Surgical History cholecystectomy Surgical History Chemical Stress Test, EKG, Echo 05/2016 Hospitalization History surgeries Hospitalization History UTI VC 05/2016
--- OUTSIDE RECORDS SUMMARY | 2018-12-07 23:05 | XMS REPORT ---
Author Author CARISA KHAN Organization [facility] Address [address] [place] [address] Care Team Providers Care Product Info Specialist Name Role Phone CARISA KHAN Unavailable PROBLEMS Type Condition ICD9-CM Code [id number] Code Onset Dates Condition Status SNOMED Code Problem DM neuro manif type II E11.49 Active 42145821 Problem Intractable migraine without aura and without status migrainosus G43.019 Active 049455311 Problem Tension headache G44.209 Active 646024692 Problem Hyperinsulinemia E16.1 Active 34377219 Problem Allergy to food Z91.018 Active 015070941 Problem Iron deficiency anemia due to chronic blood loss D50.0 Active 899389462 Problem Irritable bowel syndrome with diarrhea K58.0 Active 794086938 Problem Essential hypertension I10 Active 48538915 Problem Menorrhagia with irregular cycle N92.1 Active 925354927 Problem Sleep apnea in adult G47.30 Active 85539258 ALLERGIES No Information ENCOUNTERS Encounter Location Date Diagnosis [facility] [id number] [place] [address] Apr, BMI 50.0-59.9, adult Z68.43 ; Dysuria R30.0 and Acute UTI N39.0 [facility] [id number] [place] [address] Apr, [facility] [id number] [place] [address] Apr, Encounter for immunization Z23 [facility] [id number] [place] [address] Mar, Acute midline low back pain without sciatica M54.5 ; Acute pain of left knee M25.562 and BMI 50.0-59.9, adult Z68.43 [facility] [id number] [place] [address] Mar, Intractable migraine without aura and without status migrainosus G43.019 and BMI 50.0-59.9, adult Z68.43 [facility] [id number] [place] [address] Mar, Bronchitis J40 ; Allergy to food Z91.018 and BMI 50.0-59.9, adult Z68.43 [facility] [place] [facility] [id number] [place] [address] Mar, Bronchitis J40 ; Wheezing on both sides of chest R06.2 and BMI 50.0- 59.9, adult Z68.43 [place] [id number] [place] [address] Feb, Pain in right leg M79.604 [place] [address] [address] Jan, Pneumonia of left lung due to infectious organism, unspecified part of lung J18.[address] [address] Dec, Pneumonia due to Mycoplasma pneumoniae, unspecified laterality, unspecified part of lung J15.7 and BMI 50.0-59.9, adult Z68.43 [place] [id number] [place] [address] Dec, [place] [address] [address] Dec, Bronchitis J40 and BMI 50.0-59.9, adult Z68.43 [place] [address] [address] November, Bronchitis J40 ; LLQ pain R10.32 and BMI 50.0-59.9, adult Z68.43 [place] [address] [address] November, Iron deficiency anemia due to chronic blood loss D50.0 [facility] [id number] [place] [address] November, [facility] [id number] [place] [address] November, Iron deficiency anemia due to chronic blood loss D50.0 ; DM neuro manif type II E11.49 ; Menorrhagia with irregular cycle N92.1 and BMI 50.0- 59.9, adult Z68.43 [facility] [place] [facility] [id number] [place] [address] Oct, Sore throat J02.9 and Acute nasopharyngitis J00 [facility] [place] [facility]ALK IN [place] [id number] [place] [address] Oct, Left leg pain M79.605 and BMI 50.0-59.9, adult Z68.43 [facility] [place] [facility] [id number] [place] [address] Sep, Upper respiratory tract infection, unspecified type J06.9 and BMI 50.0-59.9, adult Z68.43 [place] [id number] [place] [address] Sep, Menorrhagia with irregular cycle N92.1 ; Sleep apnea in adult G47.30 and BMI 50.0-59.9, adult Z68.43 [place] [id number] [place] [address] Sep, [place] [id number] [place] [address] Aug, [place] [id number] [place] [address] Aug, [facility] [id number] [place] [address] Aug, [place] [id number] [place] [address] Aug, LLQ pain R10.32 ; Irritable bowel syndrome with diarrhea K58.0 ; Change in bowel habits R19.4 ; Essential hypertension I10 and BMI 50.0-59.9, adult Z68.43 [place] [address] [address] Aug, [place] [address] [address] Aug, [facility] [place] [facility] WALK IN [address] [address] Aug, Essential hypertension I10 and BMI 50.0-59.9, adult Z68.43 [place] [address] [address] Aug, [place] [address] [address] Aug, [facility] [place] [facility] WALK IN [address] [address] 02 Aug, 2017 Allergic disorder, initial encounter T78.40XA and BMI 50.0-59.9, adult Z68.43 [facility] [id number] [place] [address] Jul, Other atopic dermatitis L20.89 and BMI 50.0-59.9, adult Z68.43 [place] [address] [address] Jul, Intractable migraine without aura and without status migrainosus G43.019 and BMI 50.0-59.9, adult Z68.43 [place] [address] [address] Jun, DM neuro manif type II E11.49 ; Tension headache G44.209 ; Breast cancer screening Z12.31 and BMI 50.0-59.9, adult Z68.43 [facility] [id number] [place] [address] Jun, Tension headache G44.209 ; Breast cancer screening Z12.31 ; BMI 50.0- 59.9, adult Z68.43 and DM neuro manif type II E11.49 [facility] [id number] [place] [address] Apr, Dysuria R30.0 and Acute cystitis with hematuria N30.01 [facility] [address] [address] Apr, Hyperinsulinemia E16.1 [place] [address] [address] Mar, Acute non-recurrent maxillary sinusitis J01.00 [place] [address] [address] Feb, Cellulitis of unspecified part of limb L03.119 ; Spider bite wound, accidental or unintentional, subsequent encounter T63.301D and BMI 50.0-59.9, adult Z68.43 [facility] [address] [address] Jan, [place] [id number] [place] [address] Jan, Urinary tract infection, site unspecified N39.0 [facility] [id number] [place] [address] Jan, Acute gastritis without hemorrhage, unspecified gastritis type K29.00 [place] [id number] [place] [address] Dec, Pain in right leg M79.604 [place] [id number] [place] [address] Dec, Hyperinsulinemia E16.1 and Pain in right leg M79.604 [place] [address] [address] Dec, Angioedema, initial encounter T78.3XXA [facility] [id number] [place] [address] 15 Dec, 2016 Dental examination Z01.20 [facility] [id number] [place] [address] 13 Dec, 2016 [facility] [address] [address] Dec, Burning with urination R30.0 and Acute cystitis with hematuria N30.01 [facility] [id number] [place] [address] Oct, [facility] [id number] [place] [address] Sep, [facility] [id number] [place] [address] Aug, Hyperinsulinemia E16.1 [facility] [id number] [place] [address] Aug, [facility] [id number] [place] [address] Jul, [facility] [id number] [place] [address] Jul, Chondromalacia, left knee M94.262 and Acute lateral meniscus tear of left knee, initial encounter S83.282A [facility] [id number] [place] [address] Jul, [facility] [id number] [place] [address] Jun, Hyperinsulinemia E16.1 [facility] [id number] [place] [address] Jun, Dysuria R30.0 ; Back pain M54.9 ; Acute pain of left knee M25.562 and Hyperinsulinemia E16.1 [place] [id number] [place] [address] 14 Jun, 2016 Acute non-recurrent maxillary sinusitis J01.00 [facility] [address] [address] 05 Jun, 2016 Dysuria R30.0 [facility] [address] [address] Jun, Dysuria R30.0 [facility] [address] [address] Jun, [facility] [address] [address] May, Dysuria R30.0 and Acute cystitis with hematuria N30.01 [facility] [address] [address] May, Hyperinsulinemia E16.1 [facility] [address] [address] May, [facility] [address] [address] May, Sore throat J02.9 [facility] [address] [address] May, [facility] [address] [address] Mar, Hyperinsulinemia E16.1 [facility] [id number] [place] [address] Jan, Hyperinsulinemia E16.1 [facility] [address] [address] Dec, DM neuro manif type II E11.49 [facility] [address] [address] November, Hyperinsulinemia E16.1 and Hypertension I10 [facility] [address] [place] [address] 25 Oct, 2015 [facility] [id number] [place] [address] 22 Oct, 2015 Hyperinsulinemia E16.1 [facility] [id number] [place] [address] 20 Oct, 2015 Pain, unspecified R52 [facility] [id number] [place] [address] 14 Oct, 2015 Pain in right foot M79.671 and Hyperinsulinemia E16.1 [facility] [id number] [place] [address] 14 Oct, 2015 Hyperinsulinemia E16.1 [facility] [id number] [place] [address] 12 Oct, 2015 Hyperinsulinemia E16.1 [facility] [id number] [place] [address] 17 Aug, 2015 Hypertension I10 and Viral illness B34.9 [facility] [id number] [place] [address] May, Back pain M54.9 [facility] [id number] [place] [address] 14 Oct, 2014 [facility] [id number] [place] [address] Oct, [facility] [id number] [place] [address] 30 Sep, 2014 [facility] [address] [place] [address] 30 Sep, 2014 [facility] [id number] [place] [address] Sep, [facility] [address] [place] [address] 17 Sep, 2014 [facility] [id number] [place] [address] Sep, 2014 [facility] [place] [facility] [address] [id number] [place] [address] Sep, 2014 [facility] [place] [facility] [address] [id number] [place] [address] Sep, 2014 [facility] [place] [facility] [address] [id number] [place] [address] Sep, 2014 [facility] [place] [facility] [address] [id number] [place] [address] Sep, 2014 [facility] [place] [facility] [address] [id number] [place] [address] Sep, 2014 [facility] [place] [facility] [address] [id number] [place] [address] Sep, 2014 [facility] [place] [facility] [address] [id number] [place] [address] Sep, 2014 [facility] [place] [facility] [address] [id number] [place] [address] Mar, [facility] [place] [facility] [address] [id number] [place] [address] Mar, [facility] [place] [facility] [address] [id number] [place] [address] Feb, [facility] [place] [facility] [address] [id number] [place] [address] Feb, [facility] [place] [facility] [address] [id number] [place] [address] Feb, [facility] [place] [facility] [address] [id number] [place] [address] Feb, [facility] [place] [facility] [address] [id number] [place] [address] Dec, [facility] [place] [facility] [address] [id number] [place] [address] Dec, [facility] [place] [facility] [address] [id number] [place] [address] Dec, [facility] [place] [facility] [address] [id number] [place] [address] Dec, [facility] [place] [facility] [address] [id number] [place] [address] Dec, [facility] [place] [facility] [address] [id number] [place] [address] Dec, [facility] [place] [facility] [address] [id number] [place] [address] Dec, [facility] [place] [facility] [address] [id number] [place] [address] Sep, [facility] [place] [facility] [address] [id number] [place] [address] Sep, [facility] [place] [facility] [address] [id number] [place] [address] Sep, [facility] [place] [facility] [address] [id number] [place] [address] Sep, [facility] [place] [facility] [address] [id number] [place] [address] Sep, [facility] [place] [facility] [address] [id number] [place] [address] Sep, [facility] [place] [facility] [address] [id number] [place] [address] Sep, [facility] [place] [facility] [address] [id number] [place] [address] Sep, [facility] [place] [facility] [address] [id number] [place] [address] Jul, [facility] [place] [facility] [address] [id number] [place] [address] Jul, [facility] [place] [facility] [address] [id number] [place] [address] Jun, [facility] [place] [facility] [address] [id number] [place] [address] Jun, [facility] [place] [facility] [address] [id number] [place] [address] May, [facility] [place] [facility] [address] [facility] [id number] [place] [address] May, [facility] [place] [facility] [address] [id number], [place] [address] May, [facility] [place] [facility] [address] [id number] [place] [address] May, [facility] [place] [facility] [address] [id number] [place] [address] May, [facility] [place] [facility] [address] [id number] [place] [address] May, [facility] [place] [facility] [address] [id number], [place] [address] May, [facility] [place] [facility] [address] [id number], [place] [address] Apr, [facility] [place] [facility] [address] [id number], [place] [address] Apr, [facility] [place] [facility] [address] [id number], [place] [address] Apr, [facility] [place] [facility] [address] [id number], [place] [address] Apr, [facility] [place] [facility] [address] [id number], [place] [address] Apr, [facility] [place] [facility] [address] [id number], [place] [address] 30 Apr, 2013 [facility] [place] [facility] [address] [facility] [id number], [place] [address] 05 Mar, 2013 [facility] [place] [facility] [address] [id number] [place] [address] Feb, [facility] [address] [id number] [place] [address] Jan, [facility] [place] [facility] [address] [id number] [place] [address] Jan, [facility] [address] [id number] [place] [address] Jan, [facility] [place] [facility] [address] [id number] [place] [address] Dec, [facility] [address] [id number] [place] [address] November, [facility] [address] [id number] [place] [address] November, [facility] [address] [facility] [id number] [place] [address] November, [facility] [address] [id number] [place] [address] November, [facility] [address] [id number] [place] [address] Oct, [facility] [address] [facility] [id number] [place] [address] Aug, [facility] [place] [facility] [address] [id number] [place] [address] Aug, [facility] [place] [facility] [address] [facility] [id number] [place] [address] Aug, [facility] [place] [facility] [address] [id number] [place] [address] Aug, [facility] [place] [facility] [address] [id number] [place] [address] Aug, [facility] [place] [facility] [address] [facility] [id number] [place] [address] Aug, [facility] [place] [facility] [address] [id number] [place] [address] Jul, [facility] [place] [facility] [address] [id number] [place] [address] May, [facility] [place] [facility] [address] [id number] [place] [address] May, [facility] [place] [facility] [address] [id number] [place] [address] May, [facility] [place] [facility] [address] [id number] [place] [address] May, [facility] [place] [facility] [address] [id number] [place] [address] May, [facility] [place] [facility] [address] [facility] [id number] [place] [address] May, [facility] [place] [facility] [address] [id number], [place] [address] May, [facility] [place] [facility] [address] [id number] [place] [address] Apr, [facility] [place] [facility] [address] [facility] [id number], [place] [address] Apr, [facility] [place] [facility] [address] [id number], [place] [address] Apr, [facility] [place] [facility] [address] [id number], [place] [address] Apr, [facility] [place] [facility] [address] [id number] [place] [address] Apr, [facility] [place] [facility] [address] [id number], [place] [address] Sep, [facility] [place] [facility] [address] [facility] [id number] [place] [address] Aug, [facility] [place] [facility] [id number] [address] 16 Aug, 2011 [facility] [address] [facility] [id number], [place] [address] Aug, [facility] [address] [facility] [id number], [place] [address] Aug, [facility] [id number], [place] [address] Aug, [facility] [address] [facility] [id number], [place] [address] Jul, [facility] [id number] [place] [address] Jul, [facility] [id number], [place] [address] Jul, [facility] [id number], [place] [address] Jun, [facility] [id number], [place] [address] Jun, [facility] [id number], [place] [address] Jun, [facility] [id number], [place] [address] May, [facility] [id number], [place] [address] Apr, [facility] [id number], [place] [address] Apr, [facility] [id number], [place] [address] Apr, [facility] [id number], [place] [address] Apr, IMMUNIZATIONS No Known Immunizations SOCIAL HISTORY Never Assessed REASON FOR VISIT Re:Schedule Follow Up Appointment PLAN OF CARE VITAL SIGNS MEDICATIONS No [...]
--- OUTSIDE RECORDS SUMMARY | 2018-12-07 23:05 | XMS REPORT ---
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 Name Role Phone MORGANKAVIN JUDD Unavailable PROBLEMS Type Condition ICD9-CM Code UQZ87-NP Code Onset Dates Condition Status SNOMED Code Problem DM neuro manif type II E11.49 Active 15905310 Problem Intractable migraine without aura and without status migrainosus G43.019 Active 462394589 Problem Tension headache G44.209 Active 533619593 Problem Hyperinsulinemia E16.1 Active 44818542 Problem Allergy to food Z91.018 Active 737191583 Problem Iron deficiency anemia due to chronic blood loss D50.0 Active 865782376 Problem Irritable bowel syndrome with diarrhea K58.0 Active 685318063 Problem Essential hypertension I10 Active 38057413 Problem Menorrhagia with irregular cycle N92.1 Active 910932833 Problem Sleep apnea in adult G47.30 Active 11880519 ALLERGIES Substance Reaction Event Type Date Status Codeine hives Drug Allergy Apr, Active liquid codeine/ pt. can tolerate drugs like hydroco Unknown Non Drug Allergy Apr, Active Red Onion hives Non Drug Allergy Apr, Active Chlorthalidone 25 Mg Tablet hives Non Drug Allergy Apr, Active Hydrochlorothiazide 25 Mg Tablet hives Non Drug Allergy Apr, Active ENCOUNTERS Encounter Location Date Diagnosis [facility] [address] [facility] [id number] [address] Apr, BMI 50.0-59.9, adult Z68.43 ; Dysuria R30.0 and Acute UTI N39.0 [facility] [address] [facility] [id number], [place] [address] Apr, [facility] [address] [facility] [id number] [address] Apr, Encounter for immunization Z23 [facility] [address] [place] [id number] [place] [address] 27 Mar, 2018 Acute midline low back pain without sciatica M54.5 ; Acute pain of left knee M25.562 and BMI 50.0-59.9, adult Z68.43 [place] [address] [place] [id number] [place] [address] Mar, Intractable migraine without aura and without status migrainosus G43.019 and BMI 50.0-59.9, adult Z68.43 [place] [address] [place] [id number] [place] [address] Mar, Bronchitis J40 ; Allergy to food Z91.018 and BMI 50.0-59.9, adult Z68.43 [facility] [id number] [place] [address] Mar, Bronchitis J40 ; Wheezing on both sides of chest R06.2 and BMI 50.0- 59.9, adult Z68.43 [place] [address] [place] [id number] [place] [address] Feb, Pain in right leg M79.604 [place] [address] [place] [id number] [place] [address] Jan, Pneumonia of left lung due to infectious organism, unspecified part of lung J18.9 [place] [address] [place] [id number] [place] [address] Dec, Pneumonia due to Mycoplasma pneumoniae, unspecified laterality, unspecified part of lung J15.7 and BMI 50.0-59.9, adult Z68.43 [place] [address] [address] Dec, [place] [address] [address] Dec, Bronchitis J40 and BMI 50.0-59.9, adult Z68.43 [place] [address] [id number] [place] [address] November, Bronchitis J40 ; LLQ pain R10.32 and BMI 50.0-59.9, adult Z68.43 [place] [address] [id number] [place] [address] November, Iron deficiency anemia due to chronic blood loss D50.0 [place] [address] [address] November, [place] [address] [id number] [place] [address] November, Iron deficiency anemia due to chronic blood loss D50.0 ; DM neuro manif type II E11.49 ; Menorrhagia with irregular cycle N92.1 and BMI 50.0- 59.9, adult Z68.43 [facility] [place] [id number] [place] [address] Oct, Sore throat J02.9 and Acute nasopharyngitis J00 [facility] [place] [id number] [place] [address] Oct, Left leg pain M79.605 and BMI 50.0-59.9, adult Z68.43 [facility] [place] [id number] [place] [address] Sep, Upper respiratory tract infection, unspecified type J06.9 and BMI 50.0-59.9, adult Z68.43 [place] [id number] [place] [address] Sep, Menorrhagia with irregular cycle N92.1 ; Sleep apnea in adult G47.30 and BMI 50.0-59.9, adult Z68.43 [place] [address] [id number] [place] [address] Sep, [place] [address] [id number] [place] [address] Aug, [facility] [id number] [place] [address] Aug, [facility] [address] [address] Aug, [facility] [address] [address] Aug, LLQ pain R10.32 ; Irritable bowel syndrome with diarrhea K58.0 ; Change in bowel habits R19.4 ; Essential hypertension I10 and BMI 50.0-59.9, adult Z68.43 [place] [address] [address] Aug, [place] [address] [address] Aug, [facility] [place] [address] [address] Aug, Essential hypertension I10 and BMI 50.0-59.9, adult Z68.43 [place] [address] [id number] [place] [address] 19 Aug, 2017 [place] [address] [id number] [place] [address] 08 Aug, 2017 [facility] [place] [id number] [place] [address] 02 Aug, 2017 Allergic disorder, initial encounter T78.40XA and BMI 50.0-59.9, adult Z68.43 [facility] [place] [address] [id number] [place] [address] Jul, Other atopic dermatitis L20.89 and BMI 50.0-59.9, adult Z68.43 [place] [address] [id number] [place] [address] 16 Jul, 2017 Intractable migraine without aura and without status migrainosus G43.019 and BMI 50.0-59.9, adult Z68.43 [facility] [id number] [place] [address] Jun, DM neuro manif type II E11.49 ; Tension headache G44.209 ; Breast cancer screening Z12.31 and BMI 50.0-59.9, adult Z68.43 [facility] [address] [address] Jun, Tension headache G44.209 ; Breast cancer screening Z12.31 ; BMI 50.0- 59.9, adult Z68.43 and DM neuro manif type II E11.49 [facility] [address] [address] Apr, Dysuria R30.0 and Acute cystitis with hematuria N30.[address] [address] Apr, Hyperinsulinemia E16.1 [place] [address] [address] Mar, Acute non-recurrent maxillary sinusitis J01.00 [place] [address] [address] Feb, Cellulitis of unspecified part of limb L03.119 ; Spider bite wound, accidental or unintentional, subsequent encounter T63.301D and BMI 50.0-59.9, adult Z68.43 [place] [address] [address] Jan, [place] [address] [address] Jan, Urinary tract infection, site unspecified N39.0 [place] [address] [address] Jan, Acute gastritis without hemorrhage, unspecified gastritis type K29.00 [place] [address] [address] 30 Dec, 2016 Pain in right leg M79.604 [facility] [id number] [place] [address] 28 Dec, 2016 Hyperinsulinemia E16.1 and Pain in right leg M79.604 [facility] [address] [id number] [place] [address] 27 Dec, 2016 Angioedema, initial encounter T78.3XXA [place] [address] [address] 15 Dec, 2016 Dental examination Z01.20 [place] [address] [address] 13 Dec, 2016 [place] [address] [address] Dec, Burning with urination R30.0 and Acute cystitis with hematuria N30.01 [place] [address] [address] Oct, [facility] [address] [address] [id number] [place] [address] Sep, [place] [address] [address] Aug, Hyperinsulinemia E16.1 [facility] [address] [id number] [place] [address] Aug, [facility] [address] [id number] [place] [address] Jul, [facility] [address] [id number] [place] [address] Jul, Chondromalacia, left knee M94.262 and Acute lateral meniscus tear of left knee, initial encounter S83.282A [facility] [address] [id number] [place] [address] Jul, [facility] [address] [address] Jun, Hyperinsulinemia E16.1 [facility] [id number] [place] [address] Jun, Dysuria R30.0 ; Back pain M54.9 ; Acute pain of left knee M25.562 and Hyperinsulinemia E16.1 [facility] [address] [id number] [place] [address] Jun, Acute non-recurrent maxillary sinusitis J01.00 [facility] [id number] [place] [address] Jun, Dysuria R30.0 [facility] [id number] [place] [address] Jun, Dysuria R30.0 [facility] [id number] [place] [address] Jun, [facility] [address] [address] May, Dysuria R30.0 and Acute cystitis with hematuria N30.01 [facility] [address] [id number] [place] [address] May, Hyperinsulinemia E16.1 [facility] [id number] [place] [address] May, [facility] [id number] [place] [address] May, Sore throat J02.9 [facility] [id number] [place] [address] May, [facility] [id number] [place] [address] 08 Mar, 2016 Hyperinsulinemia E16.1 [facility] [id number] [place] [address] Jan, Hyperinsulinemia E16.1 [facility] [address] [address] Dec, DM neuro manif type II E11.49 [facility] [address] [address] November, Hyperinsulinemia E16.1 and Hypertension I10 [facility] [address] [address] Oct, [facility] [address] [address] Oct, Hyperinsulinemia E16.1 [facility] [address] [address] Oct, Pain, unspecified R52 [facility] [address] [address] Oct, Pain in right foot M79.671 and Hyperinsulinemia E16.1 [facility] [address] [address] Oct, Hyperinsulinemia E16.1 [facility] [address] [address] Oct, Hyperinsulinemia E16.1 [facility] [address] [address] 17 Aug, 2015 Hypertension I10 and Viral illness B34.9 [facility] [address] [address] May, Back pain M54.9 [facility] [address] [address] 14 Oct, 2014 [facility] [address] [address] Oct, [facility] [address] [address] Sep, [facility] [address] [address] Sep, [facility] [place] [facility] [address] [id number] [place] [address] Sep, 2014 [facility] [place] [facility] [address] [id number] [place] [address] Sep, 2014 [facility] [place] [facility] [address] [id number] [place] [address] Sep, 2014 [facility] [place] [facility] [address] [id number] [place] [address] Sep, 2014 [facility] [place] [facility] [address] [id number] [place] [address] Sep, 2014 [facility] [place] [facility] [address] [id number] [place] [address] Sep, 2014 [facility] [place] [facility] [address] [id number] [place] [address] Sep, 2014 [facility] [place] [facility] [address] [id number] [place] [address] Sep, 2014 [facility] [place] [facility] [address] [id number] [place] [address] Sep, 2014 [facility] [place] [facility] [address] [id number] [place] [address] Sep, 2014 [facility] [place] [facility] [address] [id number] [place] [address] Mar, [facility] [place] [facility] [address] [id number] [place] [address] Mar, [facility] [place] [facility] [address] [id number] [place] [address] Feb, [facility] [place] [facility] [address] [id number] [place] [address] Feb, [facility] [place] [facility] [address] [id number] [place] [address] Feb, [facility] [place] [facility] [address] [id number] [place] [address] Feb, [facility] [place] [facility] [address] [id number] [place] [address] Dec, [facility] [place] [facility] [address] [id number] [place] [address] Dec, [facility] [place] [facility] [address] [id number] [place] [address] Dec, [facility] [place] [facility] [address] [id number] [place] [address] Dec, [facility] [place] [facility] [address] [id number] [place] [address] Dec, [facility] [place] [facility] [address] [id number] [place] [address] Dec, [facility] [place] [facility] [address] [id number] [place] [address] Dec, [facility] [place] [facility] [address] [id number] [place] [address] Sep, [facility] [place] [facility] [address] [id number] [place] [address] Sep, [facility] [place] [facility] [address] [id number] [place] [address] Sep, [facility] [place] [facility] [address] [id number] [place] [address] Sep, [facility] [place] [facility] [address] [id number] [place] [address] Sep, [facility] [place] [facility] [address] [id number] [place] [address] Sep, [facility] [place] [facility] [address] [id number] [place] [address] Sep, [facility] [place] [facility] [address] [id number] [place] [address] Sep, [facility] [place] [facility] [address] [id number] [place] [address] Jul, [facility] [address] [id number] [place] [address] Jul, [facility] [place] [facility] [address] [id number] [place] [address] Jun, [facility] [place] [facility] [address] [id number] [place] [address] Jun, [facility] [place] [facility] [address] [id number] [place] [address] May, [facility] [address] [id number] [place] [address] May, [facility] [place] [facility] [address] [id number] [place] [address] May, [facility] [place] [facility] [address] [id number] [place] [address] May, [facility] [address] [id number] [place] [address] May, [facility] [place] [facility] [address] [id number] [place] [address] May, [facility] [address] [id number] [place] [address] 05 May, 2013 [facility] [place] [facility] [address] [id number] [place] [address] Apr, [facility] [place] [facility] [address] [id number] [place] [address] Apr, [facility] [place] [facility] [address] [id number] [place] [address] Apr, [facility] [place] [facility] [address] [id number] [place] [address] Apr, [facility] [place] [facility] [address] [id number] [place] [address] Apr, [facility] [address] [id number] [place] [address] Apr, [facility] [place] [facility] [address] [id number] [place] [address] Mar, [facility] [place] [facility] [address] [id number] [place] [address] Feb, [facility] [place] [facility] [address] [id number] [place] [address] Jan, [facility] [place] [facility] [address] [id number] [place] [address] Jan, [facility] [place] [facility] [address] [id number] [place] [address] Jan, [facility] [place] [facility] [address] [id number] [place] [address] Dec, [facility] [place] [facility] [address] [id number] [place] [address] November, [facility] [place] [facility] [address] [id number] [place] [address] November, [facility] [place] [facility] [address] [id number] [place] [address] November, [facility] [place] [facility] [address] [id number] [place] [address] November, [facility] [place] [facility] [address] [id number] [place] [address] Oct, [facility] [place] [facility] [address] [id number] [place] [address] Aug, [facility] [place] [facility] [address] [id number] [place] [address] Aug, [facility] [place] [facility] [address] [id number] [place] [address] Aug, [facility] [place] [facility] [address] [id number] [place] [address] Aug, 2012 [facility] [place] [facility] [address] [id number] [place] [address] Aug, [facility] [place] [facility] [address] [id number] [place] [address] Aug, [facility] [place] [facility] [address] [id number] [place] [address] Jul, [facility] [place] [facility] [address] [id number] [place] [address] May, [facility] [place] [facility] [address] [id number] [place] [address] May, [facility] [place] [facility] [address] [facility] [id number] [place] [address] May, [facility] [place] [facility] [address] [facility] [id number] [place] [address] May, [facility] [place] [facility] [address] [facility] [id number] [place] [address] May, [facility] [place] [facility] [address] [facility] [id number] [place] [address] May, [facility] [place] [facility] [address] [facility] [id number] [place] [address] May, [facility] [place] [facility] [address] [facility] [id number] [place] [address] Apr, [facility] [place] [facility] [address] [id number] [place] [address] Apr, [facility] [place] [facility] [address] [facility] [id number] [place] [address] Apr, [facility] [place] [facility] [address] [facility] [id number] [place] [address] Apr, [facility] [place] [facility] [address] [facility] [id number] [place] [address] Apr, [facility] [address] [id number] [place] [address] Sep, [facility] [place] [facility] [address] [id number] [place] [address] 24 Aug, 2011 [facility] [place] [facility] [address] [id number] [place] [address] Aug, [facility] [place] [facility] [address] [id number] [place] [address] Aug, [facility] [place] [facility] [address] [id number] [place] [address] Aug, [facility] [place] [facility] [address] [id number] [place] [address] Aug, [facility] [place] [facility] [address] [facility] [id number] [place] [address] Jul, [facility] [place] [facility] [address] [id number] [place] [address] Jul, [facility] [place] [facility] [address] [facility] [id number] [place] [address] Jul, [facility] [place] [facility] [address] [facility] [id number] [place] [address] Jun, [facility] [place] [facility] [address] [id number], [place] [address] Jun, [facility] [place] [facility] [address] [id number], [place] [address] Jun, [facility] [place] [facility] [address] [facility] [id number] [place] [address] May, [facility] [place] [facility] [address] [facility] [id number], [place] [address] 15 Apr, 2011 [facility] [place] [facility] [address] [facility] [id number] [place] [address] Apr, [facility] [place] [facility] [address] [facility] [id number] [place] [address] Apr, [facility] [address] [facility] [id number] [place] [address] Apr, IMMUNIZATIONS No Known Immunizations SOCIAL HISTORY Never Assessed REASON FOR VISIT Burning with urination and bladder cramping started this evening JStrasserRN PLAN OF CARE Activity Details Follow Up if not improving or regular follow up with pcp Reason: Pending Test UA LONG DIP (IN HOUSE) VITAL SIGNS Height 69 in 2018-05-08 Weight 357.2 lbs 2018-05-08 Temperature 99.4 degrees Fahrenheit 2018-05-08 Heart Rate 84 bpm 2018-05-08 Respiratory Rate 20 2018-05-08 BMI 52.74 kg/m2 2018-05-08 Blood pressure systolic 152 mmHg 2018-05-08 Blood pressure diastolic 100 mmHg 2018-05-08 MEDICATIONS Medication Instructions Dosage Frequency Start Date End Date Duration Status Losartan Potassium 50 mg Orally Once a day 1 tablet 24h Aug, 90 Active Zofran 4 MG Orally every 4 hrs 1 tablet as needed for nausea 4h November, Active Diltiazem HCl ER Beads 240 MG Orally Once a day 1 capsule 24h Active Spironolactone 25 MG Orally Once a day 1 tablet 24h Active Mobic 7.5 MG Orally Once a day 1-2 tablets as needed for leg pain 24h Dec, 30 days Active Flonase 50 MCG/ACT Nasally Once a day 1 spray in each nostril 24h Active Imitrex 50 MG Orally Twice a day 1 tablet as needed 12h 30 Active Phenazopyridine HCl 200 mg Orally Three times a day 1 tablet after meals 8h Apr, Apr, 2 day(s) Active Bactrim DS 800-160 MG Orally Twice a day 1 tablet 12h Apr, May, 10 day(s) Active HydrOXYzine Pamoate 25 MG Orally every 8 hrs 1- 2 capsule as needed 8h Mar, Active Propranolol HCl 10 MG Orally 2 times a day 1 tablet 12h Active Zyrtec Allergy 10 MG Orally Once a day 1 tablet 24h Active ProAir HFA 108 (90 Base) MCG/ACT Inhalation 4 times a day 2 puffs as needed 6h Dec, 7 days Active Metformin HCl 500 MG Orally 2 times a day 1 tablet with meals 12h 90 Active Ferrous Sulfate 325 (65 Fe) MG Orally Once a day 1 tablet 24h November, 30 day(s) Active Protonix 40 MG Orally Once a day 1 tablet 24h Active Albuterol Sulfate (2.5 MG/3ML) 0.083% Inhalation 4 times a day 3 ml as needed 6h Dec, Active RESULTS No Results PROCEDURES Procedure Date Ordered Result Body Site URINALYSIS, AUTO, W/O SCOPE May 08, 2018 LAB NOT BILLED BY [facility] May 08, 2018 INSTRUCTIONS MEDICATIONS ADMINISTERED No Known Medications MEDICAL (GENERAL) HISTORY Type Description Date Medical History hypertension Medical History Sleep apnea in adult Surgical History x 3 Surgical History cholecystectomy Surgical History Chemical Stress Test, EKG, Echo 05/2016 Hospitalization History surgeries Hospitalization History UTI VC 05/2016
--- OUTSIDE RECORDS SUMMARY | 2018-12-07 23:06 | XMS REPORT ---
Author Author CARISA KHAN Organization [facility] Address [address] [place] [address] Care Team Providers Care Receiving Room Clerk Name Role Phone CARISA KHAN Unavailable PROBLEMS Type Condition ICD9-CM Code SCI51-EZ Code Onset Dates Condition Status SNOMED Code Problem DM neuro manif type II E11.49 Active 72631309 Problem Intractable migraine without aura and without status migrainosus G43.019 Active 231994804 Problem Tension headache G44.209 Active 412677020 Problem Hyperinsulinemia E16.1 Active 92433743 Problem Allergy to food Z91.018 Active 244731660 Problem Iron deficiency anemia due to chronic blood loss D50.0 Active 340087560 Problem Irritable bowel syndrome with diarrhea K58.0 Active 699611920 Problem Essential hypertension I10 Active 18514879 Problem Menorrhagia with irregular cycle N92.1 Active 743378527 Problem Sleep apnea in adult G47.30 Active 97281151 ALLERGIES Substance Reaction Event Type Date Status Codeine hives Drug Allergy Mar, Active liquid codeine/ pt. can tolerate drugs like hydroco Unknown Non Drug Allergy Mar, Active Red Onion hives Non Drug Allergy Mar, Active Chlorthalidone 25 Mg Tablet hives Non Drug Allergy Mar, Active Hydrochlorothiazide 25 Mg Tablet hives Non Drug Allergy Mar, Active ENCOUNTERS Encounter Location Date Diagnosis [facility] [address] [facility] [id number], [place] [address] Mar, Acute midline low back pain without sciatica M54.5 ; Acute pain of left knee M25.562 and BMI 50.0-59.9, adult Z68.43 [facility] [address] [facility] [id number], [place] [address] 24 Mar, 2018 Intractable migraine without aura and without status migrainosus G43.019 and BMI 50.0-59.9, adult Z68.43 [facility] [id number] [place] [address] Mar, Bronchitis J40 ; Allergy to food Z91.018 and BMI 50.0-59.9, adult Z68.43 [facility] IN [facility] [id number] [place] [address] Mar, Bronchitis J40 ; Wheezing on both sides of chest R06.2 and BMI 50.0- 59.9, adult Z68.43 [place] [id number] [place] [address] Feb, Pain in right leg M79.604 [place] [address] [address] Jan, Pneumonia of left lung due to infectious organism, unspecified part of lung J18.9 [place] [address] [address] Dec, Pneumonia due to Mycoplasma pneumoniae, unspecified laterality, unspecified part of lung J15.7 and BMI 50.0-59.9, adult Z68.43 [place] [id number] [place] [address] Dec, [place] [id number] [place] [address] Dec, Bronchitis J40 and BMI 50.0-59.9, adult Z68.43 [place] [id number] [place] [address] November, Bronchitis J40 ; LLQ pain R10.32 and BMI 50.0-59.9, adult Z68.43 [place] [address] [address] November, Iron deficiency anemia due to chronic blood loss D50.0 [place] [address] [address] November, [place] [id number] [place] [address] November, Iron deficiency anemia due to chronic blood loss D50.0 ; DM neuro manif type II E11.49 ; Menorrhagia with irregular cycle N92.1 and BMI 50.0- 59.9, adult Z68.43 [facility] IN [facility] [id number] [place] [address] Oct, Sore throat J02.9 and Acute nasopharyngitis J00 [facility] [place] [id number] [place] [address] Oct, Left leg pain M79.605 and BMI 50.0-59.9, adult Z68.43 [facility] [place] [id number] [place] [address] Sep, Upper respiratory tract infection, unspecified type J06.9 and BMI 50.0-59.9, adult Z68.43 [place] [id number] [place] [address] Sep, Menorrhagia with irregular cycle N92.1 ; Sleep apnea in adult G47.30 and BMI 50.0-59.9, adult Z68.43 [place] [id number] [place] [address] Sep, [place] [id number] [place] [address] Aug, [place] [id number] [place] [address] Aug, [place] [address] [address] Aug, [place] [id number] [place] [address] Aug, LLQ pain R10.32 ; Irritable bowel syndrome with diarrhea K58.0 ; Change in bowel habits R19.4 ; Essential hypertension I10 and BMI 50.0-59.9, adult Z68.43 [facility] [id number] [place] [address] Aug, [facility] [id number] [place] [address] Aug, [facility] [id number] [place] [address] Aug, Essential hypertension I10 and BMI 50.0-59.9, adult Z68.43 [place] [id number] [place] [address] Aug, [place] [address] [address] 08 Aug, 2017 [facility] [place] [id number] [place] [address] 02 Aug, 2017 Allergic disorder, initial encounter T78.40XA and BMI 50.0-59.9, adult Z68.43 [facility] IN [facility] [id number] [place] [address] Jul, Other atopic dermatitis L20.89 and BMI 50.0-59.9, adult Z68.43 [place] [id number] [place] [address] 16 Jul, 2017 Intractable migraine without aura and without status migrainosus G43.019 and BMI 50.0-59.9, adult Z68.43 [facility] [id number] [place] [address] Jun, DM neuro manif type II E11.49 ; Tension headache G44.209 ; Breast cancer screening Z12.31 and BMI 50.0-59.9, adult Z68.43 [facility] [id number] [place] [address] Jun, Tension headache G44.209 ; Breast cancer screening Z12.31 ; BMI 50.0- 59.9, adult Z68.43 and DM neuro manif type II E11.49 [facility] [id number] [place] [address] Apr, Dysuria R30.0 and Acute cystitis with hematuria N30.01 [facility] [address] [address] Apr, Hyperinsulinemia E16.1 [place] [address] [address] Mar, Acute non-recurrent maxillary sinusitis J01.00 [place] [address] [address] Feb, Cellulitis of unspecified part of limb L03.119 ; Spider bite wound, accidental or unintentional, subsequent encounter T63.301D and BMI 50.0-59.9, adult Z68.43 [facility] [address] [address] Jan, [place] [address] [address] Jan, Urinary tract infection, site unspecified N39.0 [place] [address] [address] Jan, Acute gastritis without hemorrhage, unspecified gastritis type K29.00 [place] [address] [address] Dec, Pain in right leg M79.604 [place] [address] [address] Dec, Hyperinsulinemia E16.1 and Pain in right leg M79.604 [place] [address] [address] Dec, Angioedema, initial encounter T78.3XXA [place] [address] [address] 15 Dec, 2016 Dental examination Z01.20 [facility] [id number] [place] [address] 13 Dec, 2016 [facility] [id number] [place] [address] Dec, Burning with urination R30.0 and Acute cystitis with hematuria N30.01 [facility] [id number] [place] [address] Oct, [facility] [id number] [place] [address] Sep, [facility] [id number] [place] [address] Aug, Hyperinsulinemia E16.1 [facility] [id number] [place] [address] Aug, [facility] [id number] [place] [address] Jul, [facility] [id number] [place] [address] Jul, Chondromalacia, left knee M94.262 and Acute lateral meniscus tear of left knee, initial encounter S83.282A [facility] [address] [place] [address] Jul, [facility] [id number] [place] [address] Jun, Hyperinsulinemia E16.1 [facility] [id number] [place] [address] Jun, Dysuria R30.0 ; Back pain M54.9 ; Acute pain of left knee M25.562 and Hyperinsulinemia E16.1 [facility] [address] [place] [address] 14 Jun, 2016 Acute non-recurrent maxillary sinusitis J01.00 [facility] [id number] [place] [address] 05 Jun, 2016 Dysuria R30.0 [facility] [address] [address] 05 Jun, 2016 Dysuria R30.0 [facility] [id number] [place] [address] Jun, [facility] [address] [address] May, Dysuria R30.0 and Acute cystitis with hematuria N30.01 [facility] [address] [address] May, Hyperinsulinemia E16.1 [facility] [address] [address] May, [facility] [address] [address] May, Sore throat J02.9 [facility] [address] [address] May, [facility] [address] [address] Mar, Hyperinsulinemia E16.1 [facility] [id number] [place] [address] Jan, Hyperinsulinemia E16.1 [facility] [id number] [place] [address] Dec, DM neuro manif type II E11.49 [facility] [address] [address] November, Hyperinsulinemia E16.1 and Hypertension I10 [facility] [id number] [place] [address] Oct, [facility] [address] [address] Oct, Hyperinsulinemia E16.1 [facility] [address] [address] 20 Oct, 2015 Pain, unspecified R52 [facility] [id number] [place] [address] 14 Oct, 2015 Pain in right foot M79.671 and Hyperinsulinemia E16.1 [facility] [id number] [place] [address] 14 Oct, 2015 Hyperinsulinemia E16.1 [facility] [id number] [place] [address] 12 Oct, 2015 Hyperinsulinemia E16.1 [facility] [id number] [place] [address] 17 Aug, 2015 Hypertension I10 and Viral illness B34.9 [facility] [id number] [place] [address] May, Back pain M54.9 [facility] [id number] [place] [address] 14 Oct, 2014 [facility] [id number] [place] [address] Oct, [facility] [address] [place] [address] 30 Sep, 2014 [facility] [id number] [place] [address] 30 Sep, 2014 [facility] [id number] [place] [address] 17 Sep, 2014 [facility] [id number] [place] [address] Sep, [facility] [id number] [place] [address] Sep, [facility] [id number] [place] [address] Sep, [facility] [place] [facility] [address] [id number] [place] [address] Sep, 2014 [facility] [place] [facility] [address] [id number] [place] [address] Sep, 2014 [facility] [place] [facility] [address] [id number] [place] [address] Sep, 2014 [facility] [place] [facility] [address] [id number] [place] [address] Sep, 2014 [facility] [place] [facility] [address] [id number] [place] [address] Sep, 2014 [facility] [place] [facility] [address] [id number] [place] [address] Sep, 2014 [facility] [place] [facility] [address] [id number] [place] [address] Mar, [facility] [place] [facility] [address] [id number] [place] [address] Mar, [facility] [place] [facility] [address] [id number] [place] [address] Feb, [facility] [place] [facility] [address] [id number] [place] [address] Feb, [facility] [place] [facility] [address] [id number] [place] [address] Feb, [facility] [place] [facility] [address] [id number] [place] [address] Feb, [facility] [place] [facility] [address] [id number] [place] [address] Dec, [facility] [place] [facility] [address] [id number] [place] [address] Dec, [facility] [place] [facility] [address] [id number] [place] [address] Dec, [facility] [place] [facility] [address] [id number] [place] [address] Dec, [facility] [place] [facility] [address] [id number] [place] [address] Dec, [facility] [place] [facility] [address] [id number] [place] [address] Dec, [facility] [place] [facility] [address] [id number] [place] [address] Dec, [facility] [place] [facility] [address] [id number] [place] [address] Sep, [facility] [place] [facility] [address] [id number] [place] [address] Sep, [facility] [place] [facility] [address] [id number] [place] [address] Sep, [facility] [place] [facility] [address] [id number] [place] [address] Sep, [facility] [place] [facility] [address] [id number] [place] [address] Sep, [facility] [place] [facility] [address] [id number] [place] [address] Sep, [facility] [place] [facility] [address] [id number] [place] [address] Sep, [facility] [place] [facility] [address] [id number] [place] [address] Sep, [facility] [place] [facility] [address] [id number] [place] [address] Jul, [facility] [place] [facility] [address] [id number] [place] [address] Jul, [facility] [place] [facility] [address] [id number] [place] [address] Jun, [facility] [place] [facility] [address] [id number] [place] [address] Jun, [facility] [place] [facility] [address] [id number] [place] [address] May, [facility] [address] [id number] [place] [address] May, [facility] [place] [facility] [address] [id number] [place] [address] May, [facility] [address] [id number] [place] [address] May, [facility] [place] [facility] [address] [id number] [place] [address] May, [facility] [place] [facility] [address] [id number] [place] [address] May, [facility] [place] [facility] [address] [id number] [place] [address] May, [facility] [place] [facility] [address] [id number] [place] [address] Apr, [facility] [place] [facility] [address] [id number] [place] [address] Apr, [facility] [place] [facility] [address] [id number] [place] [address] Apr, [facility] [place] [facility] [address] [facility] [id number] [place] [address] Apr, [facility] [place] [facility] [address] [id number] [place] [address] 30 Apr, 2013 [facility] [place] [facility] [address] [id number] [place] [address] Apr, [facility] [place] [facility] [address] [id number] [place] [address] Mar, [facility] [place] [facility] [address] [facility] [id number] [place] [address] Feb, [facility] [place] [facility] [address] [id number] [place] [address] Jan, [facility] [address] [id number] [place] [address] Jan, [facility] [place] [facility] [address] [id number] [place] [address] Jan, [facility] [place] [facility] [address] [id number] [place] [address] Dec, [facility] [place] [facility] [address] [id number] [place] [address] November, [facility] [address] [id number] [place] [address] November, [facility] [place] [facility] [address] [id number] [place] [address] November, [facility] [place] [facility] [address] [id number] [place] [address] November, [facility] [place] [facility] [address] [id number] [place] [address] Oct, [facility] [place] [facility] [address] [id number] [place] [address] Aug, [facility] [place] [facility] [address] [id number] [place] [address] Aug, [facility] [place] [facility] [address] [id number] [place] [address] Aug, [facility] [place] [facility] [address] [id number], [place] [address] Aug, [facility] [place] [facility] [address] [id number] [place] [address] Aug, [facility] [place] [facility] [address] [id number] [place] [address] Aug, [facility] [place] [facility] [address] [id number] [place] [address] Jul, [facility] [place] [facility] [address] [id number] [place] [address] May, [facility] [place] [facility] [address] [id number] [place] [address] May, [facility] [place] [facility] [address] [id number] [place] [address] May, [facility] [place] [facility] [address] [id number] [place] [address] May, [facility] [place] [facility] [address] [id number] [place] [address] May, [facility] [place] [facility] [address] [id number] [place] [address] May, [facility] [place] [facility] [address] [id number] [place] [address] May, [facility] [place] [facility] [address] [facility] [id number] [place] [address] Apr, [facility] [place] [facility] [address] [id number] [place] [address] Apr, [facility] [place] [facility] [address] [facility] [id number] [place] [address] Apr, [facility] [place] [facility] [address] [facility] [id number] [place] [address] Apr, [facility] [place] [facility] [address] [facility] [id number] [place] [address] Apr, [facility] [place] [facility] [address] [facility] [id number] [place] [address] Sep, [facility] [place] [facility] [address] [id number] [place] [address] 24 Aug, 2011 [facility] [place] [facility] [address] [facility] [id number] [place] [address] 16 Aug, 2011 [facility] [place] [facility] [address] [facility] [id number] [place] [address] Aug, [facility] [address] [id number] [address] Aug, [facility] [address] [address] Aug, [facility] [id number] [address] Jul, [facility] [id number] [place] [address] Jul, [facility] [id number] [address] Jul, [facility] [id number] [place] [id number] Jun, [facility] [id number] [place] [address] Jun, [facility] [id number] [place] [address] Jun, [facility] [id number] [address] May, [facility] [id number] [address] Apr, [facility] [id number] [place] [address] Apr, [facility] [id number] [place] [address] Apr, [facility] [id number] [address] Apr, IMMUNIZATIONS No Known Immunizations SOCIAL HISTORY Never Assessed REASON FOR VISIT congestion Pt was seen in Walk In over the weekend and was given antibiotics an d prednisone, here for recheck, states she is feeling better BROOKE Jolley PLAN OF CARE Activity Details Follow Up prn Reason: VITAL SIGNS Height 69 in 2018-03-22 Weight 354.6 lbs 2018-03-22 Temperature 98.4 degrees Fahrenheit 2018-03-22 Heart Rate 96 bpm 2018-03-22 Respiratory Rate 18 2018-03-22 BMI 52.36 kg/m2 2018-03-22 Blood pressure systolic 144 mmHg 2018-03-22 Blood pressure diastolic 102 mmHg 2018-03-22 MEDICATIONS Medication Instructions Dosage Frequency Start Date End Date Duration Status Albuterol Sulfate (2.5 MG/3ML) 0.083% Inhalation 4 times a day 3 ml as needed 6h Dec, Active Losartan Potassium 50 mg Orally Once a day 1 tablet 24h Aug, 90 Active Propranolol HCl 10 MG Orally 2 times a day 1 tablet 12h Active Zofran 4 MG Orally every 4 hrs 1 tablet as needed for nausea 4h November, Active Metformin HCl 500 MG Orally 2 times a day 1 tablet with meals 12h 90 Active Zyrtec Allergy 10 MG Orally Once a day 1 tablet 24h Active PredniSONE 20 MG Orally Once a day 2 tablets 24h Mar, Mar, 6 day(s) Active Guaifenesin 400 mg Orally every 4 hrs 1 tablet as needed 4h Mar, Active HydrOXYzine Pamoate 25 MG Orally every 8 hrs 1- 2 capsule as needed 8h Mar, Active Diltiazem HCl ER Beads 240 MG Orally Once a day 1 capsule 24h Active Spironolactone 25 MG Orally Once a day 1 tablet 24h Active Flonase 50 MCG/ACT Nasally Once a day 1 spray in each nostril 24h Active ProAir HFA 108 (90 Base) MCG/ACT Inhalation 4 times a day 2 puffs as needed 6h Dec, 07 days Active Protonix 40 MG Orally Once a day 1 tablet 24h Active Imitrex 50 MG Orally Twice a day 1 tablet as needed 12h 30 Active Mobic 7.5 MG Orally Once a day 1-2 tablets as needed for leg pain 24h Dec, 30 days Active Ferrous Sulfate 325 (65 Fe) MG Orally Once a day 1 tablet 24h November, 30 day(s) Active Zithromax 250 MG Orally Once a day 2 tablets on the first day, then 1 tablet daily for 4 days 24h Mar, Mar, 5 day(s) Active RESULTS No Results PROCEDURES No Known procedures INSTRUCTIONS MEDICATIONS ADMINISTERED No Known Medications MEDICAL (GENERAL) HISTORY Type Description Date Medical History hypertension Medical History Sleep apnea in adult Surgical History x 3 Surgical History cholecystectomy Surgical History Chemical Stress Test, EKG, Echo 05/2016 Hospitalization History surgeries Hospitalization History UTI VC 05/2016
--- OUTSIDE RECORDS SUMMARY | 2018-12-07 23:06 | XMS REPORT ---
Author Author GEMA TYLER [facility] Address [address] [place] [address] Care Team Providers Care Head Custodian Name Role Phone GEMA TYLER Unavailable PROBLEMS Type Condition ICD9-CM Code [id number] Code Onset Dates Condition Status SNOMED Code Problem DM neuro manif type II E11.49 Active 80377238 Problem Intractable migraine without aura and without status migrainosus G43.019 Active 767362650 Problem Tension headache G44.209 Active 949345249 Problem Hyperinsulinemia E16.1 Active 46568600 Problem Allergy to food Z91.018 Active 296743367 Problem Iron deficiency anemia due to chronic blood loss D50.0 Active 727330497 Problem Irritable bowel syndrome with diarrhea K58.0 Active 242976766 Problem Essential hypertension I10 Active 92268321 Problem Menorrhagia with irregular cycle N92.1 Active 919617572 Problem Sleep apnea in adult G47.30 Active 04019830 ALLERGIES Substance Reaction Event Type Date Status Codeine hives Drug Allergy Mar, Active liquid codeine/ pt. can tolerate drugs like hydroco Unknown Non Drug Allergy Mar, Active Red Onion hives Non Drug Allergy Mar, Active Chlorthalidone 25 Mg Tablet hives Non Drug Allergy Mar, Active Hydrochlorothiazide 25 Mg Tablet hives Non Drug Allergy Mar, Active ENCOUNTERS Encounter Location Date Diagnosis [facility] [place] [address] [facility] [id number] [address] Mar, Acute midline low back pain without sciatica M54.5 ; Acute pain of left knee M25.562 and BMI 50.0-59.9, adult Z68.43 [facility] [place] [address] [facility] [id number] [address] Mar, Intractable migraine without aura and without status migrainosus G43.019 and BMI 50.0-59.9, adult Z68.43 [facility] [place] [address] [place] [id number] [place] [address] Mar, Bronchitis J40 ; Allergy to food Z91.018 and BMI 50.0-59.9, adult Z68.43 [facility] IN [facility] [address] [place] [id number] [place] [address] Mar, Bronchitis J40 ; Wheezing on both sides of chest R06.2 and BMI 50.0- 59.9, adult Z68.43 [place] [address] [address] Feb, Pain in right leg M79.604 [place] [address] [address] Jan, Pneumonia of left lung due to infectious organism, unspecified part of lung J18.9 [place] [address] [address] Dec, Pneumonia due to Mycoplasma pneumoniae, unspecified laterality, unspecified part of lung J15.7 and BMI 50.0-59.9, adult Z68.43 [place] [address] [address] Dec, [place] [address] [place] [id number] [place] [address] Dec, Bronchitis J40 and BMI 50.0-59.9, adult Z68.43 [place] [address] [place] [id number] [place] [address] November, Bronchitis J40 ; LLQ pain R10.32 and BMI 50.0-59.9, adult Z68.43 [place] [address] [address] November, Iron deficiency anemia due to chronic blood loss D50.0 [place] [address] [address] November, [place] [address] [place] [id number] [place] [address] November, Iron deficiency anemia due to chronic blood loss D50.0 ; DM neuro manif type II E11.49 ; Menorrhagia with irregular cycle N92.1 and BMI 50.0- 59.9, adult Z68.43 [facility] IN [facility] [address] [id number] [place] [address] Oct, Sore throat J02.9 and Acute nasopharyngitis J00 [facility] [place] [id number] [place] [address] Oct, Left leg pain M79.605 and BMI 50.0-59.9, adult Z68.43 [facility] [place] [address] [id number] [place] [address] Sep, Upper respiratory tract infection, unspecified type J06.9 and BMI 50.0-59.9, adult Z68.43 [place] [address] [id number] [place] [address] Sep, Menorrhagia with irregular cycle N92.1 ; Sleep apnea in adult G47.30 and BMI 50.0-59.9, adult Z68.43 [place] [address] [address] [id number] [place] [address] Sep, [place] [address] [id number] [place] [address] Aug, [place] [address] [address] [id number] [place] [address] Aug, [place] [address] [address] Aug, [place] [address] [id number] [place] [address] Aug, LLQ pain R10.32 ; Irritable bowel syndrome with diarrhea K58.0 ; Change in bowel habits R19.4 ; Essential hypertension I10 and BMI 50.0-59.9, adult Z68.43 [facility] [place] [id number] [place] [address] Aug, [facility] [place] [id number] [place] [address] Aug, [facility] IN [facility] [id number] [place] [address] Aug, Essential hypertension I10 and BMI 50.0-59.9, adult Z68.43 [place] [address] [id number] [place] [address] Aug, [place] [address] [address] Aug, [facility] IN [place] [address] [address] [id number] [place] [address] 02 Aug, 2017 Allergic disorder, initial encounter T78.40XA and BMI 50.0-59.9, adult Z68.43 [facility] [address] [id number] [place] [address] Jul, Other atopic dermatitis L20.89 and BMI 50.0-59.9, adult Z68.43 [place] [address] [id number] [place] [address] 16 Jul, 2017 Intractable migraine without aura and without status migrainosus G43.019 and BMI 50.0-59.9, adult Z68.43 [facility] [place] [address] [id number] [place] [address] Jun, DM neuro manif type II E11.49 ; Tension headache G44.209 ; Breast cancer screening Z12.31 and BMI 50.0-59.9, adult Z68.43 [facility] [place] [address] [place] [address] Jun, Tension headache G44.209 ; Breast cancer screening Z12.31 ; BMI 50.0- 59.9, adult Z68.43 and DM neuro manif type II E11.49 [facility] [address] [address] Apr, Dysuria R30.0 and Acute cystitis with hematuria N30.01 [facility] [place] [address] [address] Apr, Hyperinsulinemia E16.1 [place] [address] [address] Mar, Acute non-recurrent maxillary sinusitis J01.00 [place] [address] [address] Feb, Cellulitis of unspecified part of limb L03.119 ; Spider bite wound, accidental or unintentional, subsequent encounter T63.301D and BMI 50.0-59.9, adult Z68.43 [facility] [place] [address] [address] Jan, [place] [address] [address] Jan, Urinary tract infection, site unspecified N39.0 [place] [address] [address] Jan, Acute gastritis without hemorrhage, unspecified gastritis type K29.00 [place] [address] [address] Dec, Pain in right leg M79.604 [place] [address] [address] Dec, Hyperinsulinemia E16.1 and Pain in right leg M79.604 [place] [address] [address] Dec, Angioedema, initial encounter T78.3XXA [place] [address] [address] 15 Dec, 2016 Dental examination Z01.20 [facility] [place] [address] [place] [address] [id number] [place] [address] 13 Dec, 2016 [facility] [place] [address] [id number] [place] [address] Dec, Burning with urination R30.0 and Acute cystitis with hematuria N30.01 [facility] [place] [address] [address] Oct, [facility] [place] [address] [address] [id number] [place] [address] Sep, [facility] [place] [address] [address] [id number] [place] [address] Aug, Hyperinsulinemia E16.1 [facility] [place] [address] [address] [id number] [place] [address] Aug, [facility] [place] [address] [id number] [place] [address] Jul, [facility] [place] [address] [id number] [place] [address] Jul, Chondromalacia, left knee M94.262 and Acute lateral meniscus tear of left knee, initial encounter S83.282A [place] [address] [address] [id number] [place] [address] Jul, [facility] [place] [address] [id number] [place] [address] Jun, Hyperinsulinemia E16.1 [facility] [place] [address] [id number] [place] [address] Jun, Dysuria R30.0 ; Back pain M54.9 ; Acute pain of left knee M25.562 and Hyperinsulinemia E16.1 [facility] [place] [address] [address] [id number] [place] [address] Jun, Acute non-recurrent maxillary sinusitis J01.00 [facility] [place] [id number] [place] [address] 05 Jun, 2016 Dysuria R30.0 [facility] [place] [address] [address] Jun, Dysuria R30.0 [facility] [place] [address] [id number] [place] [address] Jun, [facility] [place] [address] [address] May, Dysuria R30.0 and Acute cystitis with hematuria N30.01 [facility] [place] [address] [address] May, Hyperinsulinemia E16.1 [facility] [place] [address] [address] May, [facility] [place] [address] [address] May, Sore throat J02.9 [facility] [place] [address] [address] May, [facility] [place] [address] [address] Mar, Hyperinsulinemia E16.1 [facility] [place] [address] [id number] [place] [address] Jan, Hyperinsulinemia E16.1 [facility] [place] [address] [id number] [place] [address] Dec, DM neuro manif type II E11.49 [facility] [place] [address] [address] November, Hyperinsulinemia E16.1 and Hypertension I10 [facility] [place] [address] [id number] [place] [address] Oct, [facility] [place] [address] [address] Oct, Hyperinsulinemia E16.1 [facility] [place] [address] [address] 20 Oct, 2015 Pain, unspecified R52 [facility] [place] [address] [id number] [place] [address] 14 Oct, 2015 Pain in right foot M79.671 and Hyperinsulinemia E16.1 [facility] [place] [id number] [place] [address] 14 Oct, 2015 Hyperinsulinemia E16.1 [facility] [place] [address] [address] [id number] [place] [address] 12 Oct, 2015 Hyperinsulinemia E16.1 [facility] [place] [address] [id number] [place] [address] 17 Aug, 2015 Hypertension I10 and Viral illness B34.9 [facility] [place] [address] [id number] [place] [address] May, Back pain M54.9 [facility] [place] [address] [address] [id number] [place] [address] 14 Oct, 2014 [facility] [place] [id number] [place] [address] Oct, [facility] [place] [address] [place] [address] 30 Sep, 2014 [facility] [place] [id number] [place] [address] 30 Sep, 2014 [facility] [place] [id number] [place] [address] 17 Sep, 2014 [facility] [place] [id number] [place] [address] Sep, [facility] [place] [address] [place] [id number] [place] [address] 11 Sep, 2014 [facility] [place] [address] [place] [address] Sep, [facility] [place] [facility] [address] [id number] [place] [address] Sep, 2014 [facility] [place] [facility] [address] [id number] [place] [address] Sep, 2014 [facility] [place] [facility] [address] [id number] [place] [address] Sep, 2014 [facility] [place] [facility] [address] [id number] [place] [address] Sep, 2014 [facility] [place] [facility] [address] [id number] [place] [address] Sep, 2014 [facility] [place] [facility] [address] [id number] [place] [address] Sep, 2014 [facility] [place] [facility] [address] [id number] [place] [address] Mar, [facility] [place] [facility] [address] [id number] [place] [address] Mar, [facility] [place] [facility] [address] [id number] [place] [address] Feb, [facility] [place] [facility] [address] [id number] [place] [address] Feb, [facility] [place] [facility] [address] [id number] [place] [address] Feb, [facility] [place] [facility] [address] [id number] [place] [address] Feb, [facility] [place] [facility] [address] [id number] [place] [address] Dec, [facility] [place] [facility] [address] [id number] [place] [address] Dec, [facility] [place] [facility] [address] [id number] [place] [address] Dec, [facility] [place] [facility] [address] [id number] [place] [address] Dec, [facility] [place] [facility] [address] [id number] [place] [address] Dec, [facility] [place] [facility] [address] [id number] [place] [address] Dec, [facility] [place] [facility] [address] [id number] [place] [address] Dec, [facility] [place] [facility] [address] [id number] [place] [address] Sep, [facility] [place] [facility] [address] [id number] [place] [address] Sep, [facility] [place] [facility] [address] [id number] [place] [address] Sep, [facility] [place] [facility] [address] [id number] [place] [address] Sep, [facility] [place] [facility] [address] [id number] [place] [address] Sep, [facility] [place] [facility] [address] [id number] [place] [address] Sep, [facility] [place] [facility] [address] [id number] [place] [address] Sep, [facility] [place] [facility] [address] [id number] [place] [address] Sep, [facility] [place] [facility] [address] [id number] [place] [address] Jul, [facility] [place] [facility] [address] [id number] [place] [address] Jul, [facility] [place] [facility] [address] [id number] [place] [address] Jun, [facility] [place] [facility] [address] [id number] [place] [address] Jun, [facility] [place] [facility] [address] [id number] [place] [address] May, [facility] [place] [facility] [address] [id number] [place] [address] May, [facility] [place] [facility] [address] [id number] [place] [address] May, [facility] [place] [facility] [address] [id number] [place] [address] May, [facility] [place] [facility] [address] [id number] [place] [address] May, [facility] [place] [facility] [address] [id number] [place] [address] May, [facility] [place] [facility] [address] [id number] [place] [address] May, [facility] [place] [facility] [address] [id number] [place] [address] Apr, [facility] [place] [facility] [address] [id number] [place] [address] Apr, [facility] [place] [facility] [address] [id number] [place] [address] Apr, [facility] [place] [facility] [address] [id number] [place] [address] Apr, [facility] [place] [facility] [address] [id number] [place] [address] 30 Apr, 2013 [facility] [place] [facility] [address] [id number] [place] [address] Apr, [facility] [place] [facility] [address] [id number] [place] [address] Mar, [facility] [place] [facility] [address] [id number] [place] [address] Feb, [facility] [place] [facility] [address] [id number] [place] [address] Jan, [facility] [address] [id number] [place] [address] Jan, [facility] [place] [facility] [address] [id number] [place] [address] Jan, [facility] [address] [id number] [place] [address] Dec, [facility] [place] [facility] [address] [id number] [place] [address] November, [facility] [address] [id number] [place] [address] November, [facility] [place] [facility] [address] [id number] [place] [address] November, [facility] [address] [id number] [place] [address] November, [facility] [address] [id number] [place] [address] Oct, [facility] [address] [id number] [place] [address] Aug, [facility] [place] [facility] [address] [id number] [place] [address] Aug, [facility] [place] [facility] [address] [id number] [place] [address] Aug, [facility] [place] [facility] [address] [id number] [address] Aug, [facility] [place] [facility] [address] [id number] [place] [address] Aug, [facility] [place] [facility] [address] [id number] [place] [address] Aug, [facility] [place] [facility] [address] [id number] [place] [address] Jul, [facility] [place] [facility] [address] [id number] [place] [address] May, [facility] [place] [facility] [address] [id number] [place] [id number] May, [facility] [place] [facility] [address] [id number] [place] [id number] May, [facility] [place] [facility] [address] [id number] [place] [address] May, [facility] [place] [facility] [address] [id number] [place] [address] May, [facility] [place] [facility] [address] [id number] [place] [address] May, [facility] [place] [facility] [address] [id number] [place] [address] May, [facility] [place] [facility] [address] [facility] [id number] [place] [address] Apr, [facility] [place] [facility] [address] [id number] [place] [address] Apr, [facility] [place] [facility] [address] [facility] [id number] [place] [address] Apr, [facility] [place] [facility] [address] [facility] [id number] [place] [address] Apr, [facility] [place] [facility] [address] [facility] [id number] [place] [address] Apr, [facility] [place] [facility] [address] [facility] [id number] [place] [address] Sep, [facility] [place] [facility] [address] [id number] [place] [id number] 24 Aug, 2011 [facility] [place] [facility] [address] [facility] [id number] [place] [id number] 16 Aug, 2011 [facility] [place] [facility] [address] [facility] [id number] [place] [id number] Aug, [facility] [place] [id number] [address] Aug, [facility] [place] [id number] [address] Aug, [facility] [place], [facility] [id number] [address] Jul, [facility] [place], [facility] [id number] [place] [id number] Jul, [facility] [place], [facility] [id number] [place] [address] Jul, [facility] [place], [facility] [id number] [place] [id number] Jun, [facility] [place], [facility] [id number] [address] Jun, [facility] [place], [facility] [id number] [address] Jun, [facility] [place], [facility] [id number] [address] May, [facility] [place], [facility] [id number] [address] Apr, [facility] [place], [facility] [id number] [address] Apr, [facility] [place], [facility] [id number] [address] Apr, [facility] [place], [facility] [id number] [address] Apr, IMMUNIZATIONS No Known Immunizations SOCIAL HISTORY Never Assessed REASON FOR VISIT congestion, cough for 6 days. [email or web address] PLAN OF CARE Activity Details Follow Up 2 - 3 Days Reason:PCP follow up VITAL SIGNS Height 69 in 2018-03-18 Weight 350.6 lbs 2018-03-18 Temperature 97.6 degrees Fahrenheit 2018-03-18 Heart Rate 92 bpm 2018-03-18 Respiratory Rate 20 2018-03-18 BMI 51.77 kg/m2 2018-03-18 Blood pressure systolic 126 mmHg 2018-03-18 Blood pressure diastolic 78 mmHg 2018-03-18 MEDICATIONS Medication Instructions Dosage Frequency Start Date End Date Duration Status Zyrtec Allergy 10 MG Orally Once a day 1 tablet 24h Active Imitrex 50 MG Orally Twice a day 1 tablet as needed 12h 30 Active Flonase 50 MCG/ACT Nasally Once a day 1 spray in each nostril 24h Active Zofran 4 MG Orally every 4 hrs 1 tablet as needed for nausea 4h November, Active Zithromax 250 MG Orally Once a day 2 tablets on the first day, then 1 tablet daily for 4 days 24h Mar, Mar, 5 day(s) Active Spironolactone 25 MG Orally Once a day 1 tablet 24h Active Losartan Potassium 50 mg Orally Once a day 1 tablet 24h Aug, 90 Active PredniSONE 20 MG Orally Once a day 2 tablets 24h Mar, Mar, 6 day(s) Active Albuterol Sulfate (2.5 MG/3ML) 0.083% Inhalation 4 times a day 3 ml as needed 6h Dec, Active Protonix 40 MG Orally Once a day 1 tablet 24h Active Metformin HCl 500 MG Orally 2 times a day 1 tablet with meals 12h 90 Active Ferrous Sulfate 325 (65 Fe) MG Orally Once a day 1 tablet 24h November, 30 day(s) Active Mobic 7.5 MG Orally Once a day 1-2 tablets as needed for leg pain 24h Dec, 30 days Active Diltiazem HCl ER Beads 240 MG Orally Once a day 1 capsule 24h Active ProAir HFA 108 (90 Base) MCG/ACT Inhalation 4 times a day 2 puffs as needed 6h Dec, 07 days Active Propranolol HCl 10 MG Orally 2 times a day 1 tablet 12h Active RESULTS No Results PROCEDURES No Known procedures INSTRUCTIONS MEDICATIONS ADMINISTERED No Known Medications MEDICAL (GENERAL) HISTORY Type Description Date Medical History hypertension Medical History Sleep apnea in adult Surgical History x 3 Surgical History cholecystectomy Surgical History Chemical Stress Test, EKG, Echo 05/2016 Hospitalization History surgeries Hospitalization History UTI [facility] 05/2016
--- OUTSIDE RECORDS SUMMARY | 2018-12-07 23:07 | XMS REPORT ---
Author Author CARISA KHAN Organization [facility] Address [address] [place] [address] Care Team Providers Care Foundation Coordinator Name Role Phone CARISA KHAN Unavailable PROBLEMS Type Condition ICD9-CM Code KPB46-PG Code Onset Dates Condition Status SNOMED Code Problem DM neuro manif type II E11.49 Active 92651965 Problem Intractable migraine without aura and without status migrainosus G43.019 Active 953197935 Problem Tension headache G44.209 Active 875223569 Problem Hyperinsulinemia E16.1 Active 54267045 Problem Allergy to food Z91.018 Active 086834355 Problem Iron deficiency anemia due to chronic blood loss D50.0 Active 749146696 Problem Irritable bowel syndrome with diarrhea K58.0 Active 362708058 Problem Essential hypertension I10 Active 65658058 Problem Menorrhagia with irregular cycle N92.1 Active 184672702 Problem Sleep apnea in adult G47.30 Active 49981768 ALLERGIES Substance Reaction Event Type Date Status Codeine hives Drug Allergy Jan, Active Hydrochlorothiazide 25 Mg Tablet hives Non Drug Allergy Jan, Active liquid codeine/ pt. can tolerate drugs like hydroco Unknown Non Drug Allergy Jan, Active Red Onion hives Non Drug Allergy Jan, Active Chlorthalidone 25 Mg Tablet hives Non Drug Allergy Jan, Active ENCOUNTERS Encounter Location Date Diagnosis [facility] [address] [facility] [id number] [address] Mar, Bronchitis J40 ; Allergy to food Z91.018 and BMI 50.0-59.9, adult Z68.43 [facility] [address] [facility] [id number] [address] Mar, Bronchitis J40 ; Wheezing on both sides of chest R06.2 and BMI 50.0- 59.9, adult Z68.43 [place] [address] [id number] [place] [address] Feb, Pain in right leg M79.604 [place] [address] [address] Jan, Pneumonia of left lung due to infectious organism, unspecified part of lung J18.9 [place] [address] [address] Dec, Pneumonia due to Mycoplasma pneumoniae, unspecified laterality, unspecified part of lung J15.7 and BMI 50.0-59.9, adult Z68.43 [place] [address] [address] Dec, [place] [address] [address] Dec, Bronchitis J40 and BMI 50.0-59.9, adult Z68.43 [place] [address] [address] November, Bronchitis J40 ; LLQ pain R10.32 and BMI 50.0-59.9, adult Z68.43 [place] [id number] [place] [address] November, Iron deficiency anemia due to chronic blood loss D50.0 [place] [address] [address] November, [place] [address] [address] November, Iron deficiency anemia due to chronic blood loss D50.0 ; DM neuro manif type II E11.49 ; Menorrhagia with irregular cycle N92.1 and BMI 50.0- 59.9, adult Z68.43 [facility] [place] [id number] [place] [address] Oct, Sore throat J02.9 and Acute nasopharyngitis J00 [facility] [place] [id number] [place] [address] Oct, Left leg pain M79.605 and BMI 50.0-59.9, adult Z68.43 [facility] [id number] [place] [address] Sep, Upper respiratory tract infection, unspecified type J06.9 and BMI 50.0-59.9, adult Z68.43 [place] [address] [address] Sep, Menorrhagia with irregular cycle N92.1 ; Sleep apnea in adult G47.30 and BMI 50.0-59.9, adult Z68.43 [place] [id number] [place] [address] Sep, [place] [address] [address] Aug, [place] [id number] [place] [address] Aug, [place] [address] [address] Aug, [place] [id number] [place] [address] Aug, LLQ pain R10.32 ; Irritable bowel syndrome with diarrhea K58.0 ; Change in bowel habits R19.4 ; Essential hypertension I10 and BMI 50.0-59.9, adult Z68.43 [place] [id number] [place] [address] Aug, [place] [address] [address] Aug, [facility] [id number] [place] [address] Aug, Essential hypertension I10 and BMI 50.0-59.9, adult Z68.43 [facility] [id number] [place] [address] Aug, [place] [address] [address] 08 Aug, 2017 [facility] [id number] [place] [address] Aug, Allergic disorder, initial encounter T78.40XA and BMI 50.0-59.9, adult Z68.43 [facility] [address] [address] Jul, Other atopic dermatitis L20.89 and BMI 50.0-59.9, adult Z68.43 [place] [id number] [place] [address] Jul, Intractable migraine without aura and without status migrainosus G43.019 and BMI 50.0-59.9, adult Z68.43 [facility] [id number] [place] [address] Jun, DM neuro manif type II E11.49 ; Tension headache G44.209 ; Breast cancer screening Z12.31 and BMI 50.0-59.9, adult Z68.43 [facility] [id number] [place] [address] 20 Jun, 2017 Tension headache G44.209 ; Breast cancer screening Z12.31 ; BMI 50.0- 59.9, adult Z68.43 and DM neuro manif type II E11.49 [facility] [id number] [place] [address] Apr, Dysuria R30.0 and Acute cystitis with hematuria N30.01 [place] [id number] [place] [address] Apr, Hyperinsulinemia E16.[address] [address] Mar, Acute non-recurrent maxillary sinusitis J01.00 [place] [address] [address] Feb, Cellulitis of unspecified part of limb L03.119 ; Spider bite wound, accidental or unintentional, subsequent encounter T63.301D and BMI 50.0-59.9, adult Z68.43 [place] [address] [address] Jan, [place] [address] [address] Jan, Urinary tract infection, site unspecified N39.[address] [address] Jan, Acute gastritis without hemorrhage, unspecified gastritis type K29.[address] [address] Dec, Pain in right leg M79.604 [place] [address] [address] Dec, Hyperinsulinemia E16.1 and Pain in right leg M79.604 [place] [address] [address] Dec, Angioedema, initial encounter T78.3XXA [address] [address] 15 Dec, 2016 Dental examination Z01.20 [place] [address] [address] 13 Dec, [address] [address] Dec, Burning with urination R30.0 and Acute cystitis with hematuria N30.01 [place] [address] [address] Oct, [place] [id number] [place] [address] Sep, [facility] [id number] [place] [address] Aug, Hyperinsulinemia E16.1 [facility] [id number] [place] [address] Aug, [facility] [address] [address] Jul, [facility] [address] [id number] [place] [address] Jul, Chondromalacia, left knee M94.262 and Acute lateral meniscus tear of left knee, initial encounter S83.282A [facility] [id number] [place] [address] Jul, [facility] [id number] [place] [address] Jun, Hyperinsulinemia E16.1 [facility] [id number] [place] [address] Jun, Dysuria R30.0 ; Back pain M54.9 ; Acute pain of left knee M25.562 and Hyperinsulinemia E16.1 [facility] [id number] [place] [address] Jun, Acute non-recurrent maxillary sinusitis J01.00 [facility] [id number] [place] [address] Jun, Dysuria R30.0 [facility] [id number] [place] [address] Jun, Dysuria R30.0 [facility] [id number] [place] [address] Jun, [facility] [id number] [place] [address] May, Dysuria R30.0 and Acute cystitis with hematuria N30.01 [facility] [id number] [place] [address] May, Hyperinsulinemia E16.1 [facility] [id number] [place] [address] May, [facility] [id number] [place] [address] May, Sore throat J02.9 [facility] [id number] [place] [address] May, [facility] [address] [address] 08 Mar, 2016 Hyperinsulinemia E16.1 [facility] [id number] [place] [address] Jan, Hyperinsulinemia E16.1 [facility] [address] [address] Dec, DM neuro manif type II E11.49 [facility] [id number] [place] [address] November, Hyperinsulinemia E16.1 and Hypertension I10 [facility] [id number] [place] [address] Oct, [facility] [id number] [place] [address] Oct, Hyperinsulinemia E16.1 [facility] [id number] [place] [address] Oct, Pain, unspecified R52 [facility] [id number] [place] [address] 14 Oct, 2015 Pain in right foot M79.671 and Hyperinsulinemia E16.1 [facility] [id number] [place] [address] Oct, Hyperinsulinemia E16.1 [facility] [address] [place] [address] 12 Oct, 2015 Hyperinsulinemia E16.1 [facility] [id number] [place] [address], [place] [address] 17 Aug, 2015 Hypertension I10 and Viral illness B34.9 [facility] [id number] [place] [address], [place] [address] 18 May, 2015 Back pain M54.9 [facility] [id number] [place] [address], [place] [address] 14 Oct, 2014 [facility] [id number] [place] [address], [place] [address] Oct, [facility] [id number] [place] [address], [place] [address] Sep, [facility] [id number] [place] [address] Sep, [facility] [id number] [address] Sep, [facility] [id number] [place] [address], [place] [address] Sep, [facility] [address] [place] [address] Sep, [facility] [address] [address] Sep, [facility] [address] [address] Sep, [facility] [address] [address] Sep, [facility] [address] [address] Sep, [facility] [address] [address] Sep, [facility] [place] [facility] [address] [id number] [place] [address] Sep, [facility] [place] [facility] [address] [id number] [place] [address] Sep, [facility] [place] [facility] [address] [id number] [place] [address] Mar, [facility] [place] [facility] [address] [id number] [place] [address] Mar, [facility] [place] [facility] [address] [id number] [place] [address] Feb, [facility] [place] [facility] [address] [id number] [place] [address] Feb, [facility] [place] [facility] [address] [id number] [place] [address] Feb, [facility] [place] [facility] [address] [id number] [place] [address] Feb, [facility] [place] [facility] [address] [id number] [place] [address] Dec, [facility] [place] [facility] [address] [id number] [place] [address] Dec, [facility] [place] [facility] [address] [id number] [place] [address] Dec, [facility] [place] [facility] [address] [id number] [place] [address] Dec, [facility] [place] [facility] [address] [id number] [place] [address] Dec, [facility] [place] [facility] [address] [id number] [place] [address] Dec, [facility] [place] [facility] [address] [id number] [place] [address] Dec, [facility] [place] [facility] [address] [id number] [place] [address] Sep, [facility] [place] [facility] [address] [id number] [place] [address] Sep, [facility] [place] [facility] [address] [id number] [place] [address] Sep, [facility] [place] [facility] [address] [id number] [place] [address] Sep, [facility] [place] [facility] [address] [id number] [place] [address] Sep, [facility] [place] [facility] [address] [id number] [place] [address] Sep, [facility] [place] [facility] [address] [id number] [place] [address] Sep, [facility] [place] [facility] [address] [id number] [place] [address] Sep, [facility] [place] [facility] [address] [id number] [place] [address] Jul, [facility] [place] [facility] [address] [id number] [place] [address] Jul, [facility] [place] [facility] [address] [id number] [place] [address] Jun, [facility] [place] [facility] [address] [id number] [address] Jun, [facility] [place] [facility] [address] [id number] [address] May, [facility] [place] [facility] [address] [id number] [place] [address] May, [facility] [place] [facility] [address] [id number] [place] [address] May, [facility] [place] [facility] [address] [id number] [place] [address] May, [facility] [place] [facility] [address] [id number] [place] [address] May, [facility] [place] [facility] [address] [id number] [place] [address] May, [facility] [place] [facility] [address] [id number] [place] [address] May, [facility] [place] [facility] [address] [id number] [place] [address] Apr, [facility] [place] [facility] [address] [id number] [place] [address] Apr, [facility] [place] [facility] [address] [id number] [place] [address] Apr, [facility] [place] [facility] [address] [id number] [place] [address] Apr, [facility] [place] [facility] [address] [id number] [place] [address] Apr, [facility] [place] [facility] [address] [id number] [place] [address] Apr, [facility] [place] [facility] [address] [id number] [place] [address] Mar, [facility] [place] [facility] [address] [id number] [place] [address] Feb, [facility] [place] [facility] [address] [id number] [place] [address] Jan, [facility] [place] [facility] [address] [id number] [place] [address] Jan, [facility] [place] [facility] [address] [id number] [place] [address] Jan, [facility] [place] [facility] [address] [id number] [place] [address] Dec, [facility] [place] [facility] [address] [id number] [place] [address] November, [facility] [place] [facility] [address] [id number] [place] [address] November, [facility] [place] [facility] [address] [id number] [place] [address] November, [facility] [place] [facility] [address] [id number] [place] [address] November, [facility] [place] [facility] [address] [id number] [place] [address] Oct, [facility] [place] [facility] [address] [id number] [place] [address] Aug, [facility] [place] [facility] [address] [id number] [place] [address] Aug, [facility] [place] [facility] [address] [id number] [place] [address] Aug, [facility] [place] [facility] [address] [id number] [place] [address] Aug, [facility] [place] [facility] [address] [id number] [place] [address] Aug, [facility] [place] [facility] [address] [id number] [place] [address] Aug, [facility] [place] [facility] [address] [id number] [place] [address] Jul, [facility] [place] [facility] [address] [id number] [place] [address] May, [facility] [place] [facility] [address] [id number] [place] [address] May, [facility] [place] [facility] [address] [id number] [place] [address] May, [facility] [place] [facility] [address] [id number] [place] [address] May, [facility] [place] [facility] [address] [id number] [place] [address] May, [facility] [place] [facility] [address] [id number] [place] [address] May, [facility] [place] [facility] [address] [id number] [place] [address] May, [facility] [place] [facility] [address] [id number] [place] [address] Apr, [facility] [place] [facility] [address] [id number] [place] [address] Apr, [facility] [place] [facility] [address] [id number] [place] [address] Apr, [facility] [place] [facility] [address] [id number] [place] [address] Apr, [facility] [place] [facility] [address] [id number] [place] [address] Apr, [facility] [place] [facility] [address] [id number] [place] [address] Sep, [facility] [place] [facility] [address] [id number] [place] [address] Aug, [facility] [place] [facility] [id number] [place] [address] Aug, [facility] [place] [facility] [address] [place] [address] Aug, [facility] [place] [facility] [address] [facility] [id number] [place] [address] Aug, [facility] [place] [facility] [address] [id number] [place] [address] Aug, [facility] [place] [facility] [address] [facility] [id number] [place] [address] Jul, [facility] [place] [facility] [address] [id number] [place] [address] Jul, [facility] [id number] [address] Jul, [facility] [address] [address] Jun, [facility] [address] [address] Jun, [facility] [address] [address] Jun, [facility] [address] [address] May, [facility] [address] [address] Apr, [facility] [address] [address] Apr, [facility] [address] [address] Apr, [facility] [id number] [address] Apr, IMMUNIZATIONS No Known Immunizations SOCIAL HISTORY Never Assessed REASON FOR VISIT Pneumonia f/u, PT reports she feels a little better but can still feel it in her lungs/chest-Gerry COX PLAN OF CARE Activity Details Follow Up prn Reason: VITAL SIGNS Height 69 in 2018-01-16 Weight 350.5 lbs 2018-01-16 Temperature 98.2 degrees Fahrenheit 2018-01-16 Heart Rate 105 bpm 2018-01-16 Respiratory Rate 20 2018-01-16 Oximetry on room air:97 % 2018-01-16 BMI 51.75 kg/m2 2018-01-16 Blood pressure systolic 120 mmHg 2018-01-16 Blood pressure diastolic 80 mmHg 2018-01-16 MEDICATIONS Medication Instructions Dosage Frequency Start Date End Date Duration Status Propranolol HCl 10 MG TAKE ONE TABLET BY MOUTH TWICE DAILY 30 Active Trulicity 1.5 MG/0.5ML Subcutaneous once weekly inject 0.5 ml Oct, 90 days Not-Taking Spironolactone 25 MG TAKE ONE TABLET BY MOUTH ONCE DAILY 90 Active Zyrtec Allergy 10 MG Orally Once a day 1 tablet 24h Active Mobic 7.5 MG Orally Once a day as needed for lega=pain 1-2tablet Dec, 90 days Active Diltiazem HCl ER Beads 240 MG TAKE ONE CAPSULE BY MOUTH DAILY 90 Active Protonix 40 MG Orally Once a day 1 tablet 24h Aug, 30 days Not-Taking Hyoscyamine Sulfate .25mg 1 tablet as needed November, Active Zofran 4 MG Orally every 4 hrs 1 tablet 4h November, Active Metformin HCl 500 MG Orally 2 times a day 1 tablet with meals 12h 90 Active Flonase 50 MCG/ACT Nasally Once a day 1 spray in each nostril 24h Active Imitrex 50 MG Orally Twice a day 1 tablet as needed 12h 30 Active Albuterol Sulfate (2.5 MG/3ML) 0.083% Inhalation 4 times a day 3 ml as needed 6h Dec, Active Ferrous Sulfate 325 (65 Fe) MG Orally Once a day 1 tablet 24h November, 30 day(s) Active HydrOXYzine HCl 25 MG Orally every 6 hrs 1 tablet as needed 6h Dec, 0 days Active Pepcid 40 MG Orally Once a day 1 tablet 24h Active Losartan Potassium 50 mg Orally Once a day 1 tablet 24h Aug, 90 Active Benzonatate 200 mg Orally Three times a day 1 capsule 8h Dec, Jan, 07 days Active ProAir HFA 108 (90 Base) MCG/ACT Inhalation 4 times a day 2 puffs as needed 6h Dec, 07 days Not-Taking Dicyclomine HCl 20 MG Orally every 4-6 hours as needed 1 tablet November, Active RESULTS Name Result Date Reference Range Xray : Chest 2 View (IN HOUSE) 2018-01-16 PROCEDURES Procedure Date Ordered Result Body Site X-RAY EXAM CHEST 2 VIEWS January 16, 2018 INSTRUCTIONS MEDICATIONS ADMINISTERED No Known Medications MEDICAL (GENERAL) HISTORY Type Description Date Medical History hypertension Medical History Sleep apnea in adult Surgical History x 3 Surgical History cholecystectomy Surgical History Chemical Stress Test, EKG, Echo 05/2016 Hospitalization History surgeries Hospitalization History UTI VC 05/2016
--- OUTSIDE RECORDS SUMMARY | 2018-12-07 23:07 | XMS REPORT ---
Author Author CARISA KHAN Organization [facility] Address [address] [place] [address] Care Team Providers Care Insole Stiffener Name Role Phone CARISA KHAN Unavailable PROBLEMS Type Condition ICD9-CM Code IGA05-GG Code Onset Dates Condition Status SNOMED Code Problem DM neuro manif type II E11.49 Active 08083053 Problem Intractable migraine without aura and without status migrainosus G43.019 Active 547840968 Problem Tension headache G44.209 Active 260134214 Problem Hyperinsulinemia E16.1 Active 39020757 Problem Allergy to food Z91.018 Active 619746854 Problem Iron deficiency anemia due to chronic blood loss D50.0 Active 026872639 Problem Irritable bowel syndrome with diarrhea K58.0 Active 832661442 Problem Essential hypertension I10 Active 30872304 Problem Menorrhagia with irregular cycle N92.1 Active 386990208 Problem Sleep apnea in adult G47.30 Active 89039357 ALLERGIES No Information ENCOUNTERS Encounter Location Date Diagnosis [facility] [address] [address] Mar, Bronchitis J40 ; Allergy to food Z91.018 and BMI 50.0-59.9, adult Z68.43 [facility] [id number] [place] [address] Mar, Bronchitis J40 ; Wheezing on both sides of chest R06.2 and BMI 50.0- 59.9, adult Z68.43 [facility] [address] [address] Feb, Pain in right leg M79.604 [facility] [address] [address] Jan, Pneumonia of left lung due to infectious organism, unspecified part of lung J18.9 [place] [id number] [place] [address] Dec, Pneumonia due to Mycoplasma pneumoniae, unspecified laterality, unspecified part of lung J15.7 and BMI 50.0-59.9, adult Z68.43 [place] [address] [address] Dec, [place] [address] [address] Dec, Bronchitis J40 and BMI 50.0-59.9, adult Z68.[address] [address] November, Bronchitis J40 ; LLQ pain R10.32 and BMI 50.0-59.9, adult Z68.[address] [address] November, Iron deficiency anemia due to chronic blood loss D50.[address] [address] November, [address] [address] November, Iron deficiency anemia due to chronic blood loss D50.0 ; DM neuro manif type II E11.49 ; Menorrhagia with irregular cycle N92.1 and BMI 50.0- 59.9, adult Z68.43 [facility] [place] [id number] [place] [address] Oct, Sore throat J02.9 and Acute nasopharyngitis J00 [facility] WALK IN [address] [address] Oct, Left leg pain M79.605 and BMI 50.0-59.9, adult Z68.43 [facility] W[facility] IN [address] [address] Sep, Upper respiratory tract infection, unspecified type J06.9 and BMI 50.0-59.9, adult Z68.43 [facility] [id number] [place] [address] Sep, Menorrhagia with irregular cycle N92.1 ; Sleep apnea in adult G47.30 and BMI 50.0-59.9, adult Z68.43 [facility] [address] [address] Sep, [facility] [address] [address] Aug, [facility] [address] [address] Aug, [place] [address] [address] Aug, [place] [address] [address] Aug, LLQ pain R10.32 ; Irritable bowel syndrome with diarrhea K58.0 ; Change in bowel habits R19.4 ; Essential hypertension I10 and BMI 50.0-59.9, adult Z68.43 [facility] [id number] [place] [address] Aug, [facility] [id number] [place] [address] Aug, [facility] [id number] [place] [address] Aug, Essential hypertension I10 and BMI 50.0-59.9, adult Z68.43 [facility] [id number] [place] [address] Aug, [facility] [id number] [place] [address] Aug, [facility] [id number] [place] [address] 02 Aug, 2017 Allergic disorder, initial encounter T78.40XA and BMI 50.0-59.9, adult Z68.[address] [address] Jul, Other atopic dermatitis L20.89 and BMI 50.0-59.9, adult Z68.[address] [address] Jul, Intractable migraine without aura and without status migrainosus G43.019 and BMI 50.0-59.9, adult Z68.[address] [address] Jun, DM neuro manif type II E11.49 ; Tension headache G44.209 ; Breast cancer screening Z12.31 and BMI 50.0-59.9, adult Z68.[address] [address] Jun, Tension headache G44.209 ; Breast cancer screening Z12.31 ; BMI 50.0- 59.9, adult Z68.43 and DM neuro manif type II E11.49 [place] [id number] [place] [address] Apr, Dysuria R30.0 and Acute cystitis with hematuria N30.01 [place] [id number] [place] [address] Apr, Hyperinsulinemia E16.[address] [address] Mar, Acute non-recurrent maxillary sinusitis J01.[address] [address] Feb, Cellulitis of unspecified part of limb L03.119 ; Spider bite wound, accidental or unintentional, subsequent encounter T63.301D and BMI 50.0-59.9, adult Z68.43 [place] [id number] [place] [address] Jan, [place] [address] [address] Jan, Urinary tract infection, site unspecified N39.0 [place] [address] [address] Jan, Acute gastritis without hemorrhage, unspecified gastritis type K29.00 [place] [address] [address] Dec, Pain in right leg M79.604 [place] [address] [address] Dec, Hyperinsulinemia E16.1 and Pain in right leg M79.604 [place] [address] [address] Dec, Angioedema, initial encounter T78.3XXA [place] [address] [address] 15 Dec, 2016 Dental examination Z01.20 [place] [address] [address] 13 Dec, 2016 [place] [id number] [place] [address] Dec, Burning with urination R30.0 and Acute cystitis with hematuria N30.01 [place] [id number] [place] [address] Oct, [place] [address] [address] Sep, [place] [address] [address] Aug, Hyperinsulinemia E16.1 [place] [address] [address] Aug, [place] [id number] [place] [address] Jul, [place] [address] [id number] [place] [address] Jul, Chondromalacia, left knee M94.262 and Acute lateral meniscus tear of left knee, initial encounter S83.282A [place] [address] [address] Jul, [place] [address] [address] Jun, Hyperinsulinemia E16.1 [place] [address] [address] Jun, Dysuria R30.0 ; Back pain M54.9 ; Acute pain of left knee M25.562 and Hyperinsulinemia E16.1 [place] [id number] [place] [address] Jun, Acute non-recurrent maxillary sinusitis J01.00 [place] [address] [address] Jun, Dysuria R30.0 [place] [id number] [place] [address] Jun, Dysuria R30.0 [place] [id number] [place] [address] Jun, [facility] [id number] [place] [address] May, Dysuria R30.0 and Acute cystitis with hematuria N30.01 [facility] [id number] [place] [address] May, Hyperinsulinemia E16.1 [facility] [address] [address] May, [facility] [id number] [place] [address] May, Sore throat J02.9 [facility] [address] [address] May, [facility] [address] [address] 08 Mar, 2016 Hyperinsulinemia E16.1 [facility] [address] [address] Jan, Hyperinsulinemia E16.1 [facility] [address] [address] Dec, DM neuro manif type II E11.49 [facility] [address] [address] November, Hyperinsulinemia E16.1 and Hypertension I10 [facility] [address] [address] Oct, [facility] [id number] [place] [address] Oct, Hyperinsulinemia E16.1 [facility] [id number] [place] [address] Oct, Pain, unspecified R52 [facility] [id number] [place] [address] Oct, Pain in right foot M79.671 and Hyperinsulinemia E16.1 [facility] [id number] [place] [address] Oct, Hyperinsulinemia E16.1 [facility] [address] [address] Oct, Hyperinsulinemia E16.1 [facility] [id number] [place] [address] 17 Aug, 2015 Hypertension I10 and Viral illness B34.9 [facility] [id number] [address] 18 May, 2015 Back pain M54.9 [facility] [place] [facility] [address] [id number] [place] [address] 14 Oct, 2014 [facility] [place] [facility] [address] [id number] [place] [address] 13 Oct, 2014 [facility] [place] [facility] [address] [id number] [place] [address] 30 Sep, 2014 [facility] [place] [facility] [address] [id number] [place] [address] 30 Sep, 2014 [facility] [place] [facility] [address] [id number] [place] [address] Sep, [facility] [place] [facility] [address] [id number] [place] [address] Sep, [facility] [place] [facility] [address] [id number] [place] [address] Sep, [facility] [place] [facility] [address] [id number] [place] [address] Sep, [facility] [place] [facility] [address] [id number] [place] [address] Sep, [facility] [place] [facility] [address] [id number] [place] [address] Sep, [facility] [place] [facility] [address] [id number] [place] [address] Sep, [facility] [place] [facility] [address] [id number] [place] [address] Sep, [facility] [place] [facility] [address] [id number] [place] [address] Sep, [facility] [place] [facility] [address] [id number] [place] [address] Sep, [facility] [place] [facility] [address] [id number] [place] [address] Mar, [facility] [place] [facility] [address] [id number] [place] [address] Mar, [facility] [place] [facility] [address] [id number] [place] [address] Feb, [facility] [place] [facility] [address] [id number] [place] [address] Feb, [facility] [place] [facility] [address] [id number] [place] [address] Feb, [facility] [place] [facility] [address] [id number] [place] [address] Feb, [facility] [place] [facility] [address] [id number] [place] [address] Dec, [facility] [place] [facility] [address] [id number] [place] [address] Dec, [facility] [place] [facility] [address] [id number] [place] [address] Dec, [facility] [place] [facility] [address] [id number] [place] [address] Dec, [facility] [place] [facility] [address] [id number] [place] [address] Dec, [facility] [place] [facility] [address] [id number] [place] [address] Dec, [facility] [place] [facility] [address] [id number] [place] [address] Dec, [facility] [place] [facility] [address] [id number] [place] [address] Sep, [facility] [place] [facility] [address] [id number] [place] [address] Sep, [facility] [place] [facility] [address] [id number] [place] [address] Sep, [facility] [place] [facility] [address] [id number] [place] [address] Sep, [facility] [address] [id number] [place] [address] Sep, [facility] [address] [id number] [place] [address] Sep, [facility] [address] [id number] [place] [address] Sep, [facility] [address] [id number] [place] [address] Sep, [facility] [address] [id number] [place] [address] Jul, [facility] [address] [id number] [place] [address] Jul, [facility] [address] [id number] [place] [address] Jun, [facility] [address] [id number] [place] [address] Jun, [facility] [address] [id number] [place] [address] May, [facility] [address] [id number] [place] [address] May, [facility] [place] [facility] [address] [id number] [place] [address] May, [facility] [place] [facility] [address] [id number] [place] [address] May, [facility] [place] [facility] [address] [id number] [place] [address] May, [facility] [place] [facility] [address] [id number] [place] [address] May, [facility] [place] [facility] [address] [id number] [place] [address] May, [facility] [place] [facility] [address] [id number] [place] [address] Apr, [facility] [place] [facility] [address] [id number] [place] [address] Apr, [facility] [place] [facility] [address] [id number] [place] [address] Apr, [facility] [place] [facility] [address] [id number] [place] [address] Apr, [facility] [place] [facility] [address] [id number] [place] [address] Apr, [facility] [place] [facility] [address] [id number] [place] [address] Apr, [facility] [place] [facility] [address] [id number] [place] [address] Mar, [facility] [place] [facility] [address] [id number] [place] [address] Feb, [facility] [place] [facility] [address] [id number] [place] [address] Jan, [facility] [place] [facility] [address] [id number] [address] Jan, [facility] [place] [facility] [address] [id number] [place] [address] Jan, [facility] [place] [facility] [address] [id number] [address] Dec, [facility] [place] [facility] [address] [id number] [place] [address] November, [facility] [place] [facility] [address] [id number] [place] [address] November, [facility] [place] [facility] [address] [id number] [place] [address] November, [facility] [place] [facility] [address] [id number] [place] [address] November, [facility] [address] [id number] [place] [address] Oct, [facility] [place] [facility] [address] [id number] [place] [address] Aug, [facility] [place] [facility] [address] [id number] [place] [address] Aug, [facility] [place] [facility] [address] [id number] [place] [address] Aug, [facility] [place] [facility] [address] [id number] [place] [address] Aug, [facility] [place] [facility] [address] [id number] [place] [address] Aug, [facility] [address] [id number] [place] [address] Aug, [facility] [place] [facility] [address] [id number] [place] [address] Jul, [facility] [place] [facility] [address] [id number] [place] [address] May, [facility] [place] [facility] [address] [facility] [id number] [place] [address] May, [facility] [place] [facility] [address] [id number] [place] [address] May, [facility] [place] [facility] [address] [id number] [place] [address] May, [facility] [place] [facility] [address] [id number] [place] [address] May, [facility] [place] [facility] [address] [facility] [id number] [place] [address] May, [facility] [place] [facility] [address] [id number] [address] May, [facility] [place] [facility] [address] [id number] [place] [address] Apr, [facility] [place] [facility] [address] [id number] [place] [address] Apr, [facility] [place] [facility] [address] [id number] [place] [address] Apr, [facility] [place] [facility] [address] [id number] [place] [address] Apr, [facility] [place] [facility] [address] [id number] [place] [address] Apr, [facility] [place] [facility] [address] [id number] [place] [address] Sep, [facility] [place] [facility] [address] [id number] [place] [address] Aug, [facility] [place] [facility] [address] [id number] [place] [address] Aug, [facility] [place] [facility] [address] [id number] [place] [address] Aug, [facility] [place] [facility] [address] [facility] [id number] [place] [address] Aug, [facility] [place] [facility] [address] [id number] [place] [address] Aug, [facility] [place] [facility] [address] [id number] [place] [address] Jul, [facility] [place] [facility] [address] [id number] [place] [address] Jul, [facility] [place] [facility] [address] [id number] [place] [address] Jul, [facility] [place] [facility] [address] [id number] [place] [address] Jun, [facility] [place] [facility] [address] [id number] [place] [address] Jun, [facility] [id number] [address] Jun, [facility] [id number] [address] May, [facility] [address] [address] Apr, [facility] [address] [address] Apr, [facility] [address]65[address] [address] Apr, [facility] [id number] [address] Apr, IMMUNIZATIONS No Known Immunizations SOCIAL HISTORY Never Assessed REASON FOR VISIT Refill request PLAN OF CARE VITAL SIGNS MEDICATIONS Medication Instructions Dosage Frequency Start Date End Date Duration Status Ferrous Sulfate 325 (65 Fe) MG Orally Once a day 1 tablet 24h November, 30 day(s) Active ProAir HFA 108 (90 Base) MCG/ACT Inhalation 4 times a day 2 puffs as needed 6h Dec, 07 days Active Hyoscyamine Sulfate .25mg 1 tablet as needed November, Active HydrOXYzine HCl 25 MG Orally every 6 hrs 1 tablet as needed 6h Dec, 0 days Unknown Pepcid 40 MG Orally Once a day 1 tablet 24h Unknown Albuterol Sulfate (2.5 MG/3ML) 0.083% Inhalation 4 times a day 3 ml as needed 6h Dec, Active Trulicity 1.5 MG/0.5ML Subcutaneous once weekly inject 0.5 ml Oct, 90 days Active Propranolol HCl 10 MG Orally 2 times a day 1 tablet 12h Active Protonix 40 MG Orally Once a day 1 tablet 24h Active Mobic 7.5 MG Orally Once a day 1-2 tablets as needed for leg pain 24h Dec, 30 days Active Zofran 4 MG Orally every 4 hrs 1 tablet as needed for nausea 4h November, Active Dicyclomine HCl 20 MG Orally every 4-6 hours 1 tablet as needed November, Active Spironolactone 25 MG Orally Once a day 1 tablet 24h Active Metformin HCl 500 MG Orally 2 times a day 1 tablet with meals 12h 90 Active Zyrtec Allergy 10 MG Orally Once a day 1 tablet 24h Active Flonase 50 MCG/ACT Nasally Once a day 1 spray in each nostril 24h Active Losartan Potassium 50 mg Orally Once a day 1 tablet 24h 26 Aug, 2017 90 Active Diltiazem HCl ER Beads 240 MG Orally Once a day 1 capsule 24h Active Imitrex 50 MG Orally Twice a day 1 tablet as needed 12h 30 Active RESULTS No Results PROCEDURES No Known procedures INSTRUCTIONS MEDICATIONS ADMINISTERED No Known Medications MEDICAL (GENERAL) HISTORY Type Description Date Medical History hypertension Medical History Sleep apnea in adult Surgical History x 3 Surgical History cholecystectomy Surgical History Chemical Stress Test, EKG, Echo 05/2016 Hospitalization History surgeries Hospitalization History UTI VC 05/2016
--- OUTSIDE RECORDS SUMMARY | 2018-12-07 23:08 | XMS REPORT ---
Author Author CARISA KHAN Organization [facility] Address [address] [place] [address] Care Team Providers Care Rehabilitator Name Role Phone CARISA KHAN Unavailable PROBLEMS Type Condition ICD9-CM Code [id number] Code Onset Dates Condition Status SNOMED Code Problem Hyperinsulinemia E16.1 Active 94380321 Problem Tension headache G44.209 Active 480787623 Problem DM neuro manif type II E11.49 Active 90294215 Problem Iron deficiency anemia due to chronic blood loss D50.0 Active 467955874 Problem Menorrhagia with irregular cycle N92.1 Active 762594435 Problem Essential hypertension I10 Active 53963547 Problem Intractable migraine without aura and without status migrainosus G43.019 Active 716796736 Problem Sleep apnea in adult G47.30 Active 40593388 Problem Irritable bowel syndrome with diarrhea K58.0 Active 334670419 ALLERGIES No Information ENCOUNTERS Encounter Location Date Diagnosis [place] [id number] [place] [id number] Feb, Pain in right leg M79.604 [place] [id number] [place] [id number] Jan, Pneumonia of left lung due to infectious organism, unspecified part of lung J18.9 [place] [id number] [place] [address] Dec, Pneumonia due to Mycoplasma pneumoniae, unspecified laterality, unspecified part of lung J15.7 and BMI 50.0-59.9, adult Z68.43 [place] [id number] [place] [address] Dec, [place] [address] [address] Dec, Bronchitis J40 and BMI 50.0-59.9, adult Z68.43 [place] [address] [place] [id number] [place] [address] November, Bronchitis J40 ; LLQ pain R10.32 and BMI 50.0-59.9, adult Z68.43 [place] [address] [address] November, Iron deficiency anemia due to chronic blood loss D50.0 [place] [address] [address] November, [place] [address] [address] November, Iron deficiency anemia due to chronic blood loss D50.0 ; DM neuro manif type II E11.49 ; Menorrhagia with irregular cycle N92.1 and BMI 50.0- 59.9, adult Z68.43 [facility] [place] [address] [address] Oct, Sore throat J02.9 and Acute nasopharyngitis J00 [facility] [address] [address] Oct, Left leg pain M79.605 and BMI 50.0-59.9, adult Z68.43 [facility] [place] [address] [address] Sep, Upper respiratory tract infection, unspecified type J06.9 and BMI 50.0-59.9, adult Z68.43 [place] [address] [address] Sep, Menorrhagia with irregular cycle N92.1 ; Sleep apnea in adult G47.30 and BMI 50.0-59.9, adult Z68.43 [place] [address] [address] Sep, [place] [address] [place] [id number] [place] [address] Aug, [facility] [address] [address] Aug, [facility] [address] [address] Aug, [place] [address] [address] Aug, LLQ pain R10.32 ; Irritable bowel syndrome with diarrhea K58.0 ; Change in bowel habits R19.4 ; Essential hypertension I10 and BMI 50.0-59.9, adult Z68.43 [place] [address] [address] Aug, [place] [address] [address] Aug, [facility] [address] [place] [address] Aug, Essential hypertension I10 and BMI 50.0-59.9, adult Z68.43 [place] [address] [address] Aug, [place] [address] [place] [id number] [place] [address] Aug, [facility] [address] [address] 02 Aug, 2017 Allergic disorder, initial encounter T78.40XA and BMI 50.0-59.9, adult Z68.43 [facility] [address] [place] [address] Jul, Other atopic dermatitis L20.89 and BMI 50.0-59.9, adult Z68.43 [place] [address] [address] Jul, Intractable migraine without aura and without status migrainosus G43.019 and BMI 50.0-59.9, adult Z68.43 [facility] [address] [address] Jun, DM neuro manif type II E11.49 ; Tension headache G44.209 ; Breast cancer screening Z12.31 and BMI 50.0-59.9, adult Z68.43 [facility] [address] [address] Jun, Tension headache G44.209 ; Breast cancer screening Z12.31 ; BMI 50.0- 59.9, adult Z68.43 and DM neuro manif type II E11.49 [facility] [address] [address] Apr, Dysuria R30.0 and Acute cystitis with hematuria N30.[address] [address] Apr, Hyperinsulinemia E16.[address] [address] Mar, Acute non-recurrent maxillary sinusitis J01.[address] [address] Feb, Cellulitis of unspecified part of limb L03.119 ; Spider bite wound, accidental or unintentional, subsequent encounter T63.301D and BMI 50.0-59.9, adult Z68.43 [facility] [address] [address] Jan, [address] [address] Jan, Urinary tract infection, site unspecified N39.0 [place] [address] [address] Jan, Acute gastritis without hemorrhage, unspecified gastritis type K29.00 [place] [address] [place] [id number] [place] [address] 30 Dec, 2016 Pain in right leg M79.604 [place] [address] [address] 28 Dec, 2016 Hyperinsulinemia E16.1 and Pain in right leg M79.604 [place] [address] [address] Dec, Angioedema, initial encounter T78.3XXA [place] [address] [address] 15 Dec, 2016 Dental examination Z01.20 [place] [address] [address] 13 Dec, 2016 [place] [address] [address] Dec, Burning with urination R30.0 and Acute cystitis with hematuria N30.01 [place] [address] [address] Oct, [place] [address] [address] Sep, [place] [address] [address] Aug, Hyperinsulinemia E16.1 [place] [address] [address] Aug, [place] [address] [address] Jul, [place] [address] [address] Jul, Chondromalacia, left knee M94.262 and Acute lateral meniscus tear of left knee, initial encounter S83.282A [place] [address] [address] Jul, [facility] [address] [place] [id number] [place] [address] Jun, Hyperinsulinemia E16.1 [facility] [address] [place] [id number] [place] [address] Jun, Dysuria R30.0 ; Back pain M54.9 ; Acute pain of left knee M25.562 and Hyperinsulinemia E16.1 [facility] [address] [place] [id number] [place] [address] 14 Jun, 2016 Acute non-recurrent maxillary sinusitis J01.00 [facility] [address] [place] [id number] [place] [address] Jun, Dysuria R30.0 [facility] [address] [place] [id number] [place] [address] Jun, Dysuria R30.0 [facility] [address] [place] [id number] [place] [address] Jun, [facility] [address] [place] [id number] [place] [address] May, Dysuria R30.0 and Acute cystitis with hematuria N30.01 [facility] [address] [place] [id number] [place] [address] May, Hyperinsulinemia E16.1 [facility] [address] [place] [id number] [place] [address] May, [facility] [address] [place] [id number] [place] [address] May, Sore throat J02.9 [facility] [address] [address] May, [facility] [address] [place] [id number] [place] [address] 08 Mar, 2016 Hyperinsulinemia E16.1 [facility] [address] [place] [id number] [place] [address] Jan, Hyperinsulinemia E16.1 [facility] [address] [place] [id number] [place] [address] Dec, DM neuro manif type II E11.49 [facility] [address] [place] [id number] [place] [address] November, Hyperinsulinemia E16.1 and Hypertension I10 [facility] [address] [address] Oct, [facility] [address] [address] Oct, Hyperinsulinemia E16.1 [facility] [address] [address] Oct, Pain, unspecified R52 [facility] [address] [address] Oct, Pain in right foot M79.671 and Hyperinsulinemia E16.1 [facility] [address] [place] [id number] [place] [address] Oct, Hyperinsulinemia E16.1 [facility] [address] [address] Oct, Hyperinsulinemia E16.1 [facility] [address] [place] [id number] [place] [address] 17 Aug, 2015 Hypertension I10 and Viral illness B34.9 [facility] [address] [place] [id number] [place] [address] May, Back pain M54.9 [facility] [address] [place] [id number] [place] [id number] 14 Oct, 2014 [facility] [address] [address] Oct, [facility] [address] [place] [id number] [place] [address] 30 Sep, 2014 [facility] [place] [facility] [address] [id number] [place] [address] 30 Sep, 2014 [facility] [place] [facility] [address] [id number] [place] [address] Sep, 2014 [facility] [place] [facility] [address] [id number] [place] [address] Sep, 2014 [facility] [place] [facility] [address] [id number] [place] [address] Sep, 2014 [facility] [place] [facility] [address] [id number] [place] [address] Sep, 2014 [facility] [place] [facility] [address] [id number] [place] [address] Sep, 2014 [facility] [place] [facility] [address] [id number] [place] [address] Sep, 2014 [facility] [place] [facility] [address] [id number] [place] [address] Sep, 2014 [facility] [place] [facility] [address] [id number] [place] [address] Sep, 2014 [facility] [place] [facility] [address] [id number] [place] [address] Sep, 2014 [facility] [place] [facility] [address] [id number] [place] [address] Sep, 2014 [facility] [place] [facility] [address] [id number] [place] [address] Mar, [facility] [place] [facility] [address] [id number] [place] [address] Mar, [facility] [place] [facility] [address] [id number] [place] [address] Feb, [facility] [place] [facility] [address] [id number] [place] [address] Feb, [facility] [place] [facility] [address] [id number] [place] [address] Feb, [facility] [place] [facility] [address] [id number] [place] [address] Feb, [facility] [place] [facility] [address] [id number] [place] [address] Dec, [facility] [place] [facility] [address] [id number] [place] [address] Dec, [facility] [place] [facility] [address] [id number] [place] [address] Dec, [facility] [place] [facility] [address] [id number] [place] [address] Dec, [facility] [place] [facility] [address] [id number] [place] [address] Dec, [facility] [place] [facility] [address] [id number] [place] [address] Dec, [facility] [place] [facility] [address] [id number] [place] [address] Dec, [facility] [place] [facility] [address] [id number] [place] [address] Sep, [facility] [place] [facility] [address] [id number] [place] [address] Sep, [facility] [place] [facility] [address] [id number] [place] [address] Sep, [facility] [place] [facility] [address] [id number] [place] [address] Sep, [facility] [place] [facility] [address] [id number] [place] [address] Sep, [facility] [place] [facility] [address] [id number] [place] [address] Sep, [facility] [place] [facility] [address] [id number] [place] [address] Sep, [facility] [place] [facility] [address] [id number], [place] [address] Sep, [facility] [address] [id number] [place] [address] Jul, [facility] [place] [facility] [address] [id number] [place] [address] Jul, [facility] [place] [facility] [address] [id number] [place] [address] Jun, [facility] [place] [facility] [address] [id number] [place] [address] Jun, [facility] [place] [facility] [address] [id number] [place] [address] May, [facility] [place] [facility] [address] [id number] [place] [address] May, [facility] [place] [facility] [address] [id number], [place] [address] May, [facility] [place] [facility] [address] [id number], [place] [address] May, [facility] [place] [facility] [address] [id number] [place] [address] May, [facility] [place] [facility] [address] [facility] [id number], [place] [address] May, [facility] [place] [facility] [address] [id number], [place] [address] 05 May, 2013 [facility] [place] [facility] [address] [id number], [place] [address] Apr, [facility] [place] [facility] [address] [id number], [place] [address] Apr, [facility] [place] [facility] [address] [facility] [id number], [place] [address] Apr, [facility] [place] [facility] [address] [facility] [id number], [place] [address] Apr, [facility] [place] [facility] [address] [id number] [place] [address] Apr, [facility] [address] [id number] [place] [address] Apr, [facility] [place] [facility] [address] [id number] [place] [address] Mar, [facility] [place] [facility] [address] [id number] [place] [address] Feb, [facility] [place] [facility] [address] [id number] [place] [address] Jan, [facility] [place] [facility] [address] [id number] [place] [address] Jan, [facility] [place] [facility] [address] [id number] [place] [address] Jan, [facility] [place] [facility] [address] [id number] [place] [address] Dec, [facility] [address] [id number] [place] [address] November, [facility] [place] [facility] [address] [id number] [place] [address] November, [facility] [place] [facility] [address] [id number] [place] [address] November, [facility] [place] [facility] [address] [id number] [place] [address] November, [facility] [place] [facility] [address] [id number] [place] [address] Oct, [facility] [place] [facility] [address] [id number] [place] [address] Aug, [facility] [place] [facility] [address] [id number] [place] [address] Aug, [facility] [place] [facility] [address] [id number] [place] [address] Aug, [facility] [place] [facility] [address] [id number] [place] [address] Aug, [facility] [place] [facility] [address] [id number] [place] [address] Aug, [facility] [place] [facility] [address] [facility] [id number] [place] [address] Aug, [facility] [place] [facility] [address] [id number] [place] [address] Jul, [facility] [place] [facility] [address] [facility] [id number] [place] [address] May, [facility] [place] [facility] [address] [facility] [id number] [place] [address] May, [facility] [place] [facility] [address] [facility] [id number] [place] [address] May, [facility] [place] [facility] [address] [facility] [id number] [place] [address] May, [facility] [place] [facility] [address] [facility] [id number] [place] [address] May, [facility] [place] [facility] [address] [facility] [id number] [place] [address] May, [facility] [place] [facility] [address] [facility] [id number], [place] [address] May, [facility] [place] [facility] [address] [facility] [id number], [place] [address] Apr, [facility] [place] [facility] [address] [facility] [id number] [place] [address] Apr, [facility] [place] [facility] [address] [facility] [id number] [place] [address] Apr, [facility] [place] [facility] [address] [facility] [id number] [place] [address] Apr, [facility] [place] [facility] [address] [id number] [place] [address] 30 Apr, 2012 [facility] [place] [facility] [address] [id number] [place] [address] Sep, [facility] [place] [facility] [address] [id number] [place] [address] 24 Aug, 2011 [facility] [place] [facility] [address] [id number] [place] [address] 16 Aug, 2011 [facility] [place] [facility] [address] [id number] [place] [address] Aug, [facility] [place] [facility] [address] [id number] [place] [address] Aug, [facility] [place] [facility] [address] [id number] [place] [address] Aug, [facility] [place] [facility] [address] [id number] [place] [address] Jul, [facility] [place] [facility] [address] [id number] [place] [address] Jul, [facility] [place] [facility] [address] [facility] [id number] [place] [address] Jul, [facility] [place] [facility] [address] [facility] [id number] [place] [address] Jun, [facility] [place] [facility] [address] [id number] [place] [address] Jun, [facility] [place] [facility] [address] [id number] [place] [address] Jun, [facility] [place] [facility] [address] [id number] [place] [address] May, [facility] [place] [facility] [address] [id number] [place] [address] 15 Apr, 2011 [facility] [place] [facility] [address] [id number] [place] [address] Apr, [facility] [address] [facility] [id number] [place] [address] Apr, [facility] [address] [facility] [id number] [place] [address] Apr, IMMUNIZATIONS No Known Immunizations SOCIAL HISTORY [...]
--- OUTSIDE RECORDS SUMMARY | 2018-12-07 23:08 | XMS REPORT ---
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 Role Phone CARISA KHAN Unavailable PROBLEMS Type Condition ICD9-CM Code UHP77-DD Code Onset Dates Condition Status SNOMED Code Problem Hyperinsulinemia E16.1 Active 32901955 Problem Tension headache G44.209 Active 641712056 Problem DM neuro manif type II E11.49 Active 99147684 Problem Iron deficiency anemia due to chronic blood loss D50.0 Active 431457336 Problem Menorrhagia with irregular cycle N92.1 Active 471975924 Problem Essential hypertension I10 Active 68660976 Problem Intractable migraine without aura and without status migrainosus G43.019 Active 789541837 Problem Sleep apnea in adult G47.30 Active 85419054 Problem Irritable bowel syndrome with diarrhea K58.0 Active 105715194 ALLERGIES Substance Reaction Event Type Date Status Codeine hives Drug Allergy Dec, Active liquid codeine/ pt. can tolerate drugs like hydroco Unknown Non Drug Allergy Dec, Active Red Onion hives Non Drug Allergy Dec, Active Chlorthalidone 25 Mg Tablet hives Non Drug Allergy Dec, Active Hydrochlorothiazide 25 Mg Tablet hives Non Drug Allergy Dec, Active ENCOUNTERS Encounter Location Date Diagnosis [facility] [id number] [place] [address] Feb, Pain in right leg M79.604 [place] [id number] [place] [id number] [place] [address] Jan, Pneumonia of left lung due to infectious organism, unspecified part of lung J18.9 [facility] [address] [id number] [address] Dec, Pneumonia due to Mycoplasma pneumoniae, unspecified laterality, unspecified part of lung J15.7 and BMI 50.0-59.9, adult Z68.43 [place] [address] [address] Dec, [place] [address] [address] Dec, Bronchitis J40 and BMI 50.0-59.9, adult Z68.43 [place] [address] [address] November, Bronchitis J40 ; LLQ pain R10.32 and BMI 50.0-59.9, adult Z68.43 [place] [address] [address] November, Iron deficiency anemia due to chronic blood loss D50.[address] [address] November, [place] [address] [address] November, Iron deficiency anemia due to chronic blood loss D50.0 ; DM neuro manif type II E11.49 ; Menorrhagia with irregular cycle N92.1 and BMI 50.0- 59.9, adult Z68.43 [facility] [place] [address] [address] Oct, Sore throat J02.9 and Acute nasopharyngitis J00 [facility] [address] [address] Oct, Left leg pain M79.605 and BMI 50.0-59.9, adult Z68.43 [facility] [address] [address] Sep, Upper respiratory tract infection, unspecified type J06.9 and BMI 50.0-59.9, adult Z68.43 [place] [address] [address] Sep, Menorrhagia with irregular cycle N92.1 ; Sleep apnea in adult G47.30 and BMI 50.0-59.9, adult Z68.43 [facility] [id number] [place] [address] Sep, [facility] [id number] [place] [address] Aug, [place] [address] [address] Aug, [place] [address] [address] Aug, [place] [address] [address] [id number] [place] [address] Aug, LLQ pain R10.32 ; Irritable bowel syndrome with diarrhea K58.0 ; Change in bowel habits R19.4 ; Essential hypertension I10 and BMI 50.0-59.9, adult Z68.43 [facility] [id number] [place] [address] Aug, [place] [address] [address] [id number] [place] [address] Aug, [facility] [id number] [place] [address] Aug, Essential hypertension I10 and BMI 50.0-59.9, adult Z68.43 [facility] [id number] [place] [address] Aug, [facility] [address] [address] Aug, [facility] [id number] [place] [address] Aug, Allergic disorder, initial encounter T78.40XA and BMI 50.0-59.9, adult Z68.43 [facility] [id number] [place] [address] Jul, Other atopic dermatitis L20.89 and BMI 50.0-59.9, adult Z68.43 [facility] [id number] [place] [address] Jul, Intractable migraine without aura and without status migrainosus G43.019 and BMI 50.0-59.9, adult Z68.43 [facility] [address] [address] Jun, DM neuro manif type II E11.49 ; Tension headache G44.209 ; Breast cancer screening Z12.31 and BMI 50.0-59.9, adult Z68.43 [place] [id number] [place] [address] Jun, Tension headache G44.209 ; Breast cancer screening Z12.31 ; BMI 50.0- 59.9, adult Z68.43 and DM neuro manif type II E11.49 [facility] [id number] [place] [address] Apr, Dysuria R30.0 and Acute cystitis with hematuria N30.01 [place] [address] [address] [id number] [place] [address] Apr, Hyperinsulinemia E16.1 [place] [address] [address] Mar, Acute non-recurrent maxillary sinusitis J01.00 [place] [address] [address] [id number] [place] [address] Feb, Cellulitis of unspecified part of limb L03.119 ; Spider bite wound, accidental or unintentional, subsequent encounter T63.301D and BMI 50.0-59.9, adult Z68.43 [place] [id number] [place] [address] Jan, [place] [address] [address] [id number] [place] [address] Jan, Urinary tract infection, site unspecified N39.0 [place] [address] [address] Jan, Acute gastritis without hemorrhage, unspecified gastritis type K29.00 [place] [address] [address] Dec, Pain in right leg M79.604 [place] [address] [address] Dec, Hyperinsulinemia E16.1 and Pain in right leg M79.604 [place] [address] [address] Dec, Angioedema, initial encounter T78.3XXA [place] [address] [address] Dec, Dental examination Z01.20 [place] [address] [address] Dec, [place] [address] [address] Dec, Burning with urination R30.0 and Acute cystitis with hematuria N30.01 [place] [address] [address] [id number] [place] [address] Oct, [place] [address] [address] Sep, [place] [address] [address] [id number] [place] [address] Aug, Hyperinsulinemia E16.1 [place] [address] [address] Aug, [place] [address] [place] [address] [id number] [place] [address] Jul, [place] [address] [place] [address] [id number] [place] [address] Jul, Chondromalacia, left knee M94.262 and Acute lateral meniscus tear of left knee, initial encounter S83.282A [facility] [id number] [place] [address] Jul, [facility] [address] [address] Jun, Hyperinsulinemia E16.1 [facility] [address] [address] Jun, Dysuria R30.0 ; Back pain M54.9 ; Acute pain of left knee M25.562 and Hyperinsulinemia E16.1 [facility] [id number] [place] [address] Jun, Acute non-recurrent maxillary sinusitis J01.00 [facility] [id number] [place] [address] Jun, Dysuria R30.0 [facility] [id number] [place] [address] Jun, Dysuria R30.0 [facility] [id number] [place] [address] Jun, [facility] [id number] [place] [address] May, Dysuria R30.0 and Acute cystitis with hematuria N30.01 [facility] [id number] [place] [address] May, Hyperinsulinemia E16.1 [facility] [id number] [place] [address] May, [facility] [id number] [place] [address] May, Sore throat J02.9 [facility] [address] [id number] [place] [address] May, [facility] [address] [address] 08 Mar, 2016 Hyperinsulinemia E16.1 [facility] [address] [address] Jan, Hyperinsulinemia E16.1 [facility] [address] [address] Dec, DM neuro manif type II E11.49 [facility] [address] [address] November, Hyperinsulinemia E16.1 and Hypertension I10 [facility] [address] [address] Oct, [facility] [address] [address] Oct, Hyperinsulinemia E16.1 [facility] [address] [address] Oct, Pain, unspecified R52 [facility] [address] [address] Oct, Pain in right foot M79.671 and Hyperinsulinemia E16.1 [facility] [id number] [place] [address] Oct, Hyperinsulinemia E16.1 [facility] [address] [address] Oct, Hyperinsulinemia E16.1 [facility] [address] [address] Aug, Hypertension I10 and Viral illness B34.9 [facility] [address] [address] May, Back pain M54.9 [facility] [address] [address] 14 Oct, 2014 [facility] [place] [facility] [address] [id number] [place] [address] 13 Oct, 2014 [facility] [place] [facility] [address] [id number] [place] [address] 30 Sep, 2014 [facility] [place] [facility] [address] [id number] [place] [address] 30 Sep, 2014 [facility] [place] [facility] [address] [id number] [place] [address] Sep, [facility] [place] [facility] [address] [id number] [place] [address] Sep, [facility] [place] [facility] [address] [id number] [place] [address] Sep, [facility] [place] [facility] [address] [id number] [place] [address] Sep, [facility] [place] [facility] [address] [id number] [place] [address] Sep, [facility] [place] [facility] [address] [id number] [place] [address] Sep, [facility] [place] [facility] [address] [id number] [place] [address] Sep, [facility] [place] [facility] [address] [id number] [place] [address] Sep, [facility] [place] [facility] [address] [id number] [address] Sep, [facility] [place] [facility] [address] [id number] [place] [address] Sep, [facility] [place] [facility] [address] [id number] [place] [address] Mar, [facility] [place] [facility] [address] [id number] [place] [address] Mar, [facility] [place] [facility] [address] [id number] [place] [address] Feb, [facility] [place] [facility] [address] [id number] [place] [address] Feb, [facility] [place] [facility] [address] [id number] [place] [address] Feb, [facility] [place] [facility] [address] [id number] [place] [address] Feb, [facility] [place] [facility] [address] [id number] [place] [address] Dec, [facility] [place] [facility] [address] [id number] [place] [address] Dec, [facility] [place] [facility] [address] [id number] [place] [address] Dec, [facility] [place] [facility] [address] [id number] [place] [address] Dec, [facility] [place] [facility] [address] [id number] [place] [address] Dec, [facility] [place] [facility] [address] [id number] [place] [address] Dec, [facility] [place] [facility] [address] [id number] [place] [address] Dec, [facility] [place] [facility] [address] [id number] [place] [address] Sep, [facility] [place] [facility] [address] [id number] [place] [address] Sep, [facility] [place] [facility] [address] [id number] [place] [address] Sep, [facility] [place] [facility] [address] [id number] [place] [address] Sep, [facility] [place] [facility] [address] [id number] [place] [address] Sep, [facility] [place] [facility] [address] [id number] [place] [address] Sep, [facility] [place] [facility] [address] [id number] [place] [address] Sep, [facility] [place] [facility] [address] [id number] [place] [address] Sep, [facility] [place] [facility] [address] [id number] [place] [address] Jul, [facility] [place] [facility] [address] [id number] [place] [address] Jul, [facility] [place] [facility] [address] [id number] [place] [address] Jun, [facility] [place] [facility] [address] [id number] [place] [address] Jun, [facility] [place] [facility] [address] [id number] [place] [address] May, [facility] [place] [facility] [address] [id number] [place] [address] May, [facility] [place] [facility] [address] [id number], [place] [address] May, [facility] [place] [facility] [address] [id number], [place] [address] May, [facility] [place] [facility] [address] [id number], [place] [address] May, [facility] [place] [facility] [address] [id number] [place] [address] May, [facility] [place] [facility] [address] [id number] [place] [address] May, [facility] [place] [facility] [address] [id number], [place] [address] Apr, [facility] [place] [facility] [address] [id number], [place] [address] Apr, [facility] [address] [id number] [place] [address] Apr, [facility] [place] [facility] [address] [id number] [place] [address] Apr, [facility] [place] [facility] [address] [id number] [place] [address] Apr, [facility] [place] [facility] [address] [id number] [place] [address] Apr, [facility] [place] [facility] [address] [id number] [place] [address] Mar, [facility] [place] [facility] [address] [id number] [place] [address] Feb, [facility] [address] [id number] [place] [address] Jan, [facility] [place] [facility] [address] [id number] [place] [address] Jan, [facility] [place] [facility] [address] [id number] [place] [address] Jan, [facility] [place] [facility] [address] [id number] [place] [address] Dec, [facility] [place] [facility] [address] [id number], [place] [address] November, [facility] [place] [facility] [address] [id number] [place] [address] November, [facility] [place] [facility] [address] [id number] [place] [address] November, [facility] [place] [facility] [address] [id number] [place] [address] November, [facility] [place] [facility] [address] [id number] [place] [address] Oct, [facility] [place] [facility] [address] [id number] [place] [address] Aug, 2012 [facility] [place] [facility] [address] [id number] [place] [address] Aug, 2012 [facility] [place] [facility] [address] [id number] [place] [address] Aug, 2012 [facility] [place] [facility] [address] [id number] [place] [address] Aug, 2012 [facility] [place] [facility] [address] [id number] [place] [address] Aug, [facility] [place] [facility] [address] [id number] [place] [address] Aug, [facility] [place] [facility] [address] [facility] [id number] [place] [address] Jul, [facility] [place] [facility] [address] [id number] [place] [address] May, [facility] [place] [facility] [address] [id number] [place] [address] May, [facility] [place] [facility] [address] [facility] [id number] [place] [address] May, [facility] [place] [facility] [address] [id number] [place] [address] May, [facility] [place] [facility] [address] [id number] [place] [address] May, [facility] [place] [facility] [address] [id number] [place] [address] May, [facility] [place] [facility] [address] [id number] [place] [address] May, [facility] [place] [facility] [address] [id number] [place] [address] Apr, [facility] [place] [facility] [address] [id number] [place] [address] Apr, [facility] [place] [facility] [address] [id number] [place] [address] Apr, [facility] [place] [facility] [address] [id number] [place] [address] Apr, [facility] [place] [facility] [address] [facility] [id number] [place] [address] Apr, [facility] [place] [facility] [address] [id number] [place] [address] Sep, [facility] [place] [facility] [address] [id number] [place] [address] 24 Aug, 2011 [facility] [place] [facility] [address] [facility] [id number] [place] [address] 16 Aug, 2011 [facility] [place] [facility] [address] [facility] [id number] [place] [address] Aug, [facility] [place] [facility] [address] [facility] [id number] [place] [address] Aug, [facility] [place] [facility] [address] [facility] [id number] [place] [address] Aug, [facility] [place] [facility] [address] [facility] [id number] [place] [address] Jul, [facility] [place] [facility] [address] [facility] [id number] [place] [address] Jul, [facility] [place] [facility] [address] [id number] [place] [address] Jul, [facility] [place] [facility] [address] [id number] [place] [address] Jun, [facility] [place] [facility] [address] [facility] [id number] [place] [address] Jun, [facility] [place] [facility] [address] [facility] [id number] [place] [address] Jun, [facility] [place] [facility] [address] [facility] [id number], [place] [address] May, [facility] [address] [facility] [id number], [place] [address] Apr, [facility] [address] [facility] [id number], [place] [address] Apr, [facility] [address] [facility] [id number], [place] [address] Apr, [facility] [address] [facility] [id number], [place] [address] Apr, IMMUNIZATIONS No Known Immunizations SOCIAL HISTORY Never Assessed REASON FOR VISIT Pneumonia / pt needs seen per Juan A CARSON, PT has a headache and has shortness of breath at night , PT says her joints ache and was informed she pneumonia in her left lung PLAN OF CARE Activity Details Follow Up 1 Week Reason:pneumonia VITAL SIGNS Height 69 in 2018-01-09 Weight 349.6 lbs 2018-01-09 Temperature 98.2 degrees Fahrenheit 2018-01-09 Heart Rate 86 bpm 2018-01-09 Respiratory Rate 20 2018-01-09 Oximetry on room air:97 % 2018-01-09 BMI 51.62 kg/m2 2018-01-09 Blood pressure systolic 114 mmHg 2018-01-09 Blood pressure diastolic 72 mmHg 2018-01-09 MEDICATIONS Medication Instructions Dosage Frequency Start Date End Date Duration Status Dicyclomine HCl 20 MG Orally every 4-6 hours as needed 1 tablet November, Active Spironolactone 25 MG TAKE ONE TABLET BY MOUTH ONCE DAILY 90 Active Cefdinir 300 MG Orally every 12 hrs 1 capsule 12h Dec, Dec, 10 day(s) Active Trulicity 1.5 MG/0.5ML Subcutaneous once weekly inject 0.5 ml Oct, 90 days Not-Taking Imitrex 50 MG Orally Twice a day 1 tablet as needed 12h 30 Active Hyoscyamine Sulfate .25mg 1 tablet as needed November, Active Albuterol Sulfate (2.5 MG/3ML) 0.083% Inhalation 4 times a day 3 ml as needed 6h Dec, Active Losartan Potassium 50 mg Orally Once a day 1 tablet 24h Aug, 90 Active Pepcid 40 MG Orally Once a day 1 tablet 24h Active Propranolol HCl 10 MG TAKE ONE TABLET BY MOUTH TWICE DAILY 30 Active Benzonatate 200 mg Orally Three times a day 1 capsule 8h Dec, Jan, 07 days Active ProAir HFA 108 (90 Base) MCG/ACT Inhalation 4 times a day 2 puffs as needed 6h Dec, 07 days Active Protonix 40 MG Orally Once a day 1 tablet 24h Aug, 30 days Active Metformin HCl 500 MG Orally 2 times a day 1 tablet with meals 12h 90 Active Zyrtec Allergy 10 MG Orally Once a day 1 tablet 24h Active Ferrous Sulfate 325 (65 Fe) MG Orally Once a day 1 tablet 24h November, 30 day(s) Active Zofran 4 MG Orally every 4 hrs 1 tablet 4h November, Active HydrOXYzine HCl 25 MG Orally every 6 hrs 1 tablet as needed 6h Dec, 0 days Active Diltiazem HCl ER Beads 240 MG TAKE ONE CAPSULE BY MOUTH DAILY 90 Active Flonase 50 MCG/ACT Nasally Once a day 1 spray in each nostril 24h Active Mobic 7.5 MG Orally Once [...]
--- OUTSIDE RECORDS SUMMARY | 2018-12-07 23:09 | XMS REPORT ---
Author Author KINGSLEY SANCHEZ Organization [facility] Address [address] [place] [address] Care Team Providers Care Motor Operator Name Role Phone SACHINAndre KINGSLEY Unavailable PROBLEMS Type Condition ICD9-CM Code [id number] Code Onset Dates Condition Status SNOMED Code Problem Hyperinsulinemia E16.1 Active 68915449 Problem Tension headache G44.209 Active 439768805 Problem DM neuro manif type II E11.49 Active 27674617 Problem Iron deficiency anemia due to chronic blood loss D50.0 Active 234590245 Problem Menorrhagia with irregular cycle N92.1 Active 455625080 Problem Essential hypertension I10 Active 58290966 Problem Intractable migraine without aura and without status migrainosus G43.019 Active 585159897 Problem Sleep apnea in adult G47.30 Active 62557829 Problem Irritable bowel syndrome with diarrhea K58.0 Active 054387697 ALLERGIES Substance Reaction Event Type Date Status Codeine hives Drug Allergy Dec, Active liquid codeine/ pt. can tolerate drugs like hydroco Unknown Non Drug Allergy Dec, Active Chlorthalidone 25 Mg Tablet hives Non Drug Allergy Dec, Active Hydrochlorothiazide 25 Mg Tablet hives Non Drug Allergy Dec, Active Red Onion hives Non Drug Allergy Dec, Active ENCOUNTERS Encounter Location Date Diagnosis [facility] [id number] [place] [address] Feb, Pain in right leg M79.604 [place] [address] [place] [id number] [place] [address] Jan, Pneumonia of left lung due to infectious organism, unspecified part of lung J18.9 [facility] [id number] [address] Dec, Pneumonia due to Mycoplasma pneumoniae, unspecified laterality, unspecified part of lung J15.7 and BMI 50.0-59.9, adult Z68.43 [place] [address] [address] Dec, [place] [address] [address] Dec, Bronchitis J40 and BMI 50.0-59.9, adult Z68.43 [place] [address] [address] November, Bronchitis J40 ; LLQ pain R10.32 and BMI 50.0-59.9, adult Z68.43 [place] [address] [address] November, Iron deficiency anemia due to chronic blood loss D50.[address] [address] November, [place] [address] [address] November, Iron deficiency anemia due to chronic blood loss D50.0 ; DM neuro manif type II E11.49 ; Menorrhagia with irregular cycle N92.1 and BMI 50.0- 59.9, adult Z68.43 [facility] [place] [address] [address] Oct, Sore throat J02.9 and Acute nasopharyngitis J00 [facility] IN [address] [address] Oct, Left leg pain M79.605 and BMI 50.0-59.9, adult Z68.43 [facility] IN [address] [address] Sep, Upper respiratory tract infection, unspecified type J06.9 and BMI 50.0-59.9, adult Z68.43 [place] [address] [address] Sep, Menorrhagia with irregular cycle N92.1 ; Sleep apnea in adult G47.30 and BMI 50.0-59.9, adult Z68.43 [facility] [id number] [place] [address] Sep, [facility] [id number] [place] [address] Aug, [place] [address] [address] Aug, [place] [address] [address] Aug, [place] [address] [place] [id number] [place] [address] Aug, LLQ pain R10.32 ; Irritable bowel syndrome with diarrhea K58.0 ; Change in bowel habits R19.4 ; Essential hypertension I10 and BMI 50.0-59.9, adult Z68.43 [facility] [id number] [place] [address] Aug, [place] [address] [place] [address] [id number] [place] [address] Aug, [facility] [id number] [place] [address] Aug, Essential hypertension I10 and BMI 50.0-59.9, adult Z68.43 [facility] [id number] [place] [address] Aug, [facility] [address] [address] Aug, [facility] [id number] [place] [address] Aug, Allergic disorder, initial encounter T78.40XA and BMI 50.0-59.9, adult Z68.43 [facility] [address] [place] [address] Jul, Other atopic dermatitis L20.89 and BMI 50.0-59.9, adult Z68.43 [facility] [id number] [place] [address] Jul, Intractable migraine without aura and without status migrainosus G43.019 and BMI 50.0-59.9, adult Z68.43 [facility] [address] [address] Jun, DM neuro manif type II E11.49 ; Tension headache G44.209 ; Breast cancer screening Z12.31 and BMI 50.0-59.9, adult Z68.43 [place] [address] [place] [address] [id number] [place] [address] Jun, Tension headache G44.209 ; Breast cancer screening Z12.31 ; BMI 50.0- 59.9, adult Z68.43 and DM neuro manif type II E11.49 [facility] [id number] [place] [address] Apr, Dysuria R30.0 and Acute cystitis with hematuria N30.01 [place] [address] [place] [id number] [place] [address] Apr, Hyperinsulinemia E16.1 [place] [address] [address] Mar, Acute non-recurrent maxillary sinusitis J01.00 [place] [address] [place] [address] [id number] [place] [address] Feb, Cellulitis of unspecified part of limb L03.119 ; Spider bite wound, accidental or unintentional, subsequent encounter T63.301D and BMI 50.0-59.9, adult Z68.43 [place] [address] [place] [address] [id number] [place] [address] Jan, [place] [address] [address] [id number] [place] [address] Jan, Urinary tract infection, site unspecified N39.0 [place] [address] [address] Jan, Acute gastritis without hemorrhage, unspecified gastritis type K29.00 [place] [address] [address] Dec, Pain in right leg M79.604 [place] [address] [address] Dec, Hyperinsulinemia E16.1 and Pain in right leg M79.604 [place] [address] [address] Dec, Angioedema, initial encounter T78.3XXA [place] [address] [address] Dec, Dental examination Z01.20 [place] [address] [address] Dec, [place] [address] [address] Dec, Burning with urination R30.0 and Acute cystitis with hematuria N30.01 [place] [address] [place] [id number] [place] [address] Oct, [place] [address] [address] Sep, [place] [address] [place] [id number] [place] [address] Aug, Hyperinsulinemia E16.1 [place] [address] [address] Aug, [place] [address] [place] [id number] [place] [address] Jul, [place] [address] [place] [id number] [place] [address] Jul, Chondromalacia, left knee M94.262 and Acute lateral meniscus tear of left knee, initial encounter S83.282A [facility] [id number] [place] [address] Jul, [facility] [address] [address] Jun, Hyperinsulinemia E16.1 [facility] [address] [address] Jun, Dysuria R30.0 ; Back pain M54.9 ; Acute pain of left knee M25.562 and Hyperinsulinemia E16.1 [facility] [id number] [place] [address] Jun, Acute non-recurrent maxillary sinusitis J01.00 [facility] [id number] [place] [address] Jun, Dysuria R30.0 [facility] [id number] [place] [address] Jun, Dysuria R30.0 [facility] [id number] [place] [address] Jun, [facility] [id number] [place] [address] May, Dysuria R30.0 and Acute cystitis with hematuria N30.01 [facility] [id number] [place] [address] May, Hyperinsulinemia E16.1 [facility] [id number] [place] [address] May, [facility] [id number] [place] [address] May, Sore throat J02.9 [facility] [id number] [place] [address] May, [facility] [address] [address] 08 Mar, 2016 Hyperinsulinemia E16.1 [facility] [address] [address] Jan, Hyperinsulinemia E16.1 [facility] [address] [address] Dec, DM neuro manif type II E11.49 [facility] [address] [address] November, Hyperinsulinemia E16.1 and Hypertension I10 [facility] [address] [address] Oct, [facility] [address] [address] Oct, Hyperinsulinemia E16.1 [facility] [address] [address] Oct, Pain, unspecified R52 [facility] [address] [address] Oct, Pain in right foot M79.671 and Hyperinsulinemia E16.1 [facility] [id number] [place] [address] Oct, Hyperinsulinemia E16.1 [facility] [address] [address] Oct, Hyperinsulinemia E16.1 [facility] [address] [address] Aug, Hypertension I10 and Viral illness B34.9 [facility] [address] [address] May, Back pain M54.9 [facility] [address] [address] 14 Oct, 2014 [facility] [place] [facility] [address] [id number] [place] [address] 13 Oct, 2014 [facility] [place] [facility] [address] [id number] [place] [address] 30 Sep, 2014 [facility] [place] [facility] [address] [id number] [place] [address] 30 Sep, 2014 [facility] [place] [facility] [address] [id number] [place] [address] Sep, [facility] [place] [facility] [address] [id number] [place] [address] Sep, [facility] [place] [facility] [address] [id number] [place] [address] Sep, [facility] [place] [facility] [address] [id number] [place] [address] Sep, [facility] [place] [facility] [address] [id number] [place] [address] Sep, [facility] [place] [facility] [address] [id number] [place] [address] Sep, [facility] [place] [facility] [address] [id number] [place] [address] Sep, [facility] [place] [facility] [address] [id number] [place] [address] Sep, [facility] [place] [facility] [address] [id number], [place] [address] Sep, [facility] [place] [facility] [address] [id number] [place] [address] Sep, [facility] [place] [facility] [address] [id number] [place] [address] Mar, [facility] [place] [facility] [address] [id number] [place] [address] Mar, [facility] [place] [facility] [address] [id number] [place] [address] Feb, [facility] [place] [facility] [address] [id number] [place] [address] Feb, [facility] [place] [facility] [address] [id number] [place] [address] Feb, [facility] [place] [facility] [address] [id number] [place] [address] Feb, [facility] [place] [facility] [address] [id number] [place] [address] Dec, [facility] [place] [facility] [address] [id number] [place] [address] Dec, [facility] [place] [facility] [address] [id number] [place] [address] Dec, [facility] [place] [facility] [address] [id number] [place] [address] Dec, [facility] [place] [facility] [address] [id number] [place] [address] Dec, [facility] [place] [facility] [address] [id number] [place] [address] Dec, [facility] [place] [facility] [address] [id number] [place] [address] Dec, [facility] [place] [facility] [address] [id number] [place] [address] Sep, [facility] [place] [facility] [address] [id number] [place] [address] Sep, [facility] [place] [facility] [address] [id number] [place] [address] Sep, [facility] [place] [facility] [address] [id number] [place] [address] Sep, [facility] [place] [facility] [address] [id number] [place] [address] Sep, [facility] [place] [facility] [address] [id number] [place] [address] Sep, [facility] [place] [facility] [address] [id number] [place] [address] Sep, [facility] [place] [facility] [address] [id number] [place] [address] Sep, [facility] [place] [facility] [address] [id number] [place] [address] Jul, [facility] [place] [facility] [address] [id number] [place] [address] Jul, [facility] [place] [facility] [address] [id number] [place] [address] Jun, [facility] [place] [facility] [address] [id number] [place] [address] Jun, [facility] [place] [facility] [address] [id number] [place] [address] May, [facility] [place] [facility] [address] [id number] [place] [address] May, [facility] [place] [facility] [address] [id number], [place] [address] May, [facility] [place] [facility] [address] [id number], [place] [address] May, [facility] [place] [facility] [address] [id number], [place] [address] May, [facility] [place] [facility] [address] [id number] [place] [address] May, [facility] [place] [facility] [address] [id number] [place] [address] May, [facility] [place] [facility] [address] [id number], [place] [address] Apr, [facility] [place] [facility] [address] [id number], [place] [address] Apr, [facility] [address] [id number] [place] [address] Apr, [facility] [place] [facility] [address] [id number] [place] [address] Apr, [facility] [place] [facility] [address] [id number] [place] [address] Apr, [facility] [place] [facility] [address] [id number] [place] [address] Apr, [facility] [place] [facility] [address] [id number] [place] [address] Mar, [facility] [place] [facility] [address] [id number] [place] [address] Feb, [facility] [address] [id number] [place] [address] Jan, [facility] [place] [facility] [address] [id number] [place] [address] Jan, [facility] [place] [facility] [address] [id number] [place] [address] Jan, [facility] [place] [facility] [address] [id number] [place] [address] Dec, [facility] [place] [facility] [address] [id number], [place] [address] November, [facility] [place] [facility] [address] [id number] [place] [address] November, [facility] [place] [facility] [address] [id number] [place] [address] November, [facility] [place] [facility] [address] [id number] [place] [address] November, [facility] [place] [facility] [address] [id number] [place] [address] Oct, [facility] [place] [facility] [address] [id number] [place] [address] Aug, 2012 [facility] [place] [facility] [address] [id number] [place] [address] Aug, 2012 [facility] [place] [facility] [address] [id number] [place] [address] Aug, 2012 [facility] [place] [facility] [address] [id number] [place] [address] Aug, 2012 [facility] [place] [facility] [address] [id number] [place] [address] Aug, [facility] [place] [facility] [address] [id number] [place] [address] Aug, [facility] [place] [facility] [address] [facility] [id number] [place] [address] Jul, [facility] [place] [facility] [address] [id number] [place] [address] May, [facility] [place] [facility] [address] [id number] [place] [address] May, [facility] [place] [facility] [address] [facility] [id number] [place] [address] May, [facility] [place] [facility] [address] [id number] [place] [address] May, [facility] [place] [facility] [address] [id number] [place] [address] May, [facility] [place] [facility] [address] [id number] [place] [address] May, [facility] [place] [facility] [address] [id number] [place] [address] May, [facility] [place] [facility] [address] [id number] [place] [address] Apr, [facility] [place] [facility] [address] [id number] [place] [address] Apr, [facility] [place] [facility] [address] [id number] [place] [address] Apr, [facility] [place] [facility] [address] [id number] [place] [address] Apr, [facility] [place] [facility] [address] [facility] [id number] [place] [address] Apr, [facility] [place] [facility] [address] [id number] [place] [address] Sep, [facility] [place] [facility] [address] [id number] [place] [address] 24 Aug, 2011 [facility] [place] [facility] [address] [facility] [id number] [place] [address] 16 Aug, 2011 [facility] [place] [facility] [address] [facility] [id number] [place] [address] Aug, [facility] [place] [facility] [address] [facility] [id number] [place] [address] Aug, [facility] [place] [facility] [address] [facility] [id number] [place] [address] Aug, [facility] [place] [facility] [address] [facility] [id number] [place] [address] Jul, [facility] [place] [facility] [address] [facility] [id number] [place] [address] Jul, [facility] [place] [facility] [address] [id number] [place] [address] Jul, [facility] [place] [facility] [address] [id number] [place] [address] Jun, [facility] [place] [facility] [address] [facility] [id number] [place] [address] Jun, [facility] [place] [facility] [address] [facility] [id number] [place] [address] Jun, [facility] [place] [facility] [address] [facility] [id number], [place] [address] May, [facility] [address] [facility] [id number], [place] [address] Apr, [facility] [address] [facility] [id number], [place] [address] Apr, [facility] [address] [facility] [id number], [place] [address] Apr, [facility] [address] [facility] [id number], [place] [address] Apr, IMMUNIZATIONS No Known Immunizations SOCIAL HISTORY Never Assessed REASON FOR VISIT Cold symptoms x 3 wks, chest heaviness, SOA, thick yellow mucus-awoods PLAN OF CARE Activity Details Follow Up if not improving with PCP or reg follow up Tuesday Reason:broncitis or pneumonia VITAL SIGNS Height 69 in 2018-01-03 Weight 350 lbs 2018-01-03 Temperature 98.3 degrees Fahrenheit 2018-01-03 Heart Rate 97 bpm 2018-01-03 Respiratory Rate 22 2018-01-03 Oximetry 98 % 2018-01-03 BMI 51.68 kg/m2 2018-01-03 Blood pressure systolic 138 mmHg 2018-01-03 Blood pressure diastolic 76 mmHg 2018-01-03 MEDICATIONS Medication Instructions Dosage Frequency Start Date End Date Duration Status Ferrous Sulfate 325 (65 Fe) MG Orally Once a day 1 tablet 24h November, 30 day(s) Active Metformin HCl 500 MG Orally 2 times a day 1 tablet with meals 12h 90 Active ProAir HFA 108 (90 Base) MCG/ACT Inhalation 4 times a day 2 puffs as needed 6h Dec, 07 days Active Trulicity 1.5 MG/0.5ML Subcutaneous once weekly inject 0.5 ml Oct, 90 days Active Cefdinir 300 MG Orally every 12 hrs 1 capsule 12h Dec, Dec, 10 day(s) Active HydrOXYzine HCl 25 MG Orally every 6 hrs 1 tablet as needed 6h Dec, 0 days Active Spironolactone 25 MG TAKE ONE TABLET BY MOUTH ONCE DAILY 90 Active Protonix 40 MG Orally Once a day 1 tablet 24h Aug, 30 days Active Flonase 50 MCG/ACT Nasally Once a day 1 spray in each nostril 24h Active Mobic 7.5 MG Orally Once a day as needed for lega=pain 1-2tablet Dec, 90 days Active Zyrtec Allergy 10 MG Orally Once a day 1 tablet 24h Active Azithromycin 250 MG Orally Once a day 2 tablets on the first day, then 1 tablet daily for 4 days 24h Dec, Dec, 5 day(s) Active Losartan Potassium 50 mg Orally Once a day 1 tablet 24h Aug, 90 Active Pepcid 40 MG Orally Once a day 1 tablet 24h Active Hyoscyamine Sulfate .25mg 1 tablet as needed November, Active Zofran 4 MG Orally every 4 hrs 1 tablet 4h November, Active Imitrex 50 MG Orally Twice a day 1 tablet as needed 12h 30 Active Diltiazem HCl ER Beads 240 MG TAKE ONE CAPSULE BY MOUTH DAILY 90 Active Dicyclomine HCl 20 MG Orally every 4-6 hours as needed 1 tablet November, Active Propranolol HCl 10 MG TAKE ONE TABLET BY MOUTH TWICE DAILY 30 Active RESULTS Name Result Date Reference Range Xray : Chest 2 View (IN HOUSE) 2018-01-03 PROCEDURES Procedure Date Ordered Result Body Site X-RAY EXAM CHEST 2 VIEWS January 03, 2018 INSTRUCTIONS MEDICATIONS ADMINISTERED No Known Medications MEDICAL (GENERAL) HISTORY Type Description Date Medical History hypertension Medical History Sleep apnea in adult Surgical History x 3 Surgical History cholecystectomy Surgical History Chemical Stress Test, EKG, Echo 05/2016 Hospitalization History surgeries Hospitalization History UTI [facility] 05/2016
--- OUTSIDE RECORDS SUMMARY | 2018-12-07 23:10 | XMS REPORT ---
Author Author CARISA KHAN Organization [facility] Address [address] [place] [address] Care Team Providers Care Quality Improvement Manager Name Role Phone CARISA KHAN Unavailable PROBLEMS Type Condition ICD9-CM Code OCT15-RU Code Onset Dates Condition Status SNOMED Code Problem Hyperinsulinemia E16.1 Active 54559498 Problem Tension headache G44.209 Active 071332880 Problem DM neuro manif type II E11.49 Active 41983076 Problem Iron deficiency anemia due to chronic blood loss D50.0 Active 171821357 Problem Menorrhagia with irregular cycle N92.1 Active 110235197 Problem Essential hypertension I10 Active 58915495 Problem Intractable migraine without aura and without status migrainosus G43.019 Active 241450178 Problem Sleep apnea in adult G47.30 Active 95502481 Problem Irritable bowel syndrome with diarrhea K58.0 Active 076796202 ALLERGIES Substance Reaction Event Type Date Status Codeine hives Drug Allergy November, Active liquid codeine/ pt. can tolerate drugs like hydroco Unknown Non Drug Allergy November, Active Red Onion hives Non Drug Allergy November, Active Chlorthalidone 25 Mg Tablet hives Non Drug Allergy November, Active Hydrochlorothiazide 25 Mg Tablet hives Non Drug Allergy November, Active ENCOUNTERS Encounter Location Date Diagnosis [facility] [id number] [place] [address] Feb, Pain in right leg M79.604 [place] [id number] [place] [address] Jan, Pneumonia of left lung due to infectious organism, unspecified part of lung J18.9 [facility] [address] [id number] [address] Dec, Pneumonia due to Mycoplasma pneumoniae, unspecified laterality, unspecified part of lung J15.7 and BMI 50.0-59.9, adult Z68.43 [place] [address] [address] Dec, [place] [address] [address] Dec, Bronchitis J40 and BMI 50.0-59.9, adult Z68.43 [place] [address] [address] November, Bronchitis J40 ; LLQ pain R10.32 and BMI 50.0-59.9, adult Z68.43 [place] [address] [address] November, Iron deficiency anemia due to chronic blood loss D50.[address] [address] November, [place] [address] [address] November, Iron deficiency anemia due to chronic blood loss D50.0 ; DM neuro manif type II E11.49 ; Menorrhagia with irregular cycle N92.1 and BMI 50.0- 59.9, adult Z68.43 [facility] IN [place] [address] [address] Oct, Sore throat J02.9 and Acute nasopharyngitis J00 [facility] WALK IN [address] [address] Oct, Left leg pain M79.605 and BMI 50.0-59.9, adult Z68.43 [facility] W[facility] IN [address] [address] Sep, Upper respiratory tract infection, unspecified type J06.9 and BMI 50.0-59.9, adult Z68.43 [place] [address] [address] Sep, Menorrhagia with irregular cycle N92.1 ; Sleep apnea in adult G47.30 and BMI 50.0-59.9, adult Z68.43 [facility] [id number] [place] [address] Sep, [facility] [id number] [place] [address] Aug, [place] [address] [address] Aug, [place] [address] [address] Aug, [place] [address] [id number] [place] [address] Aug, LLQ pain R10.32 ; Irritable bowel syndrome with diarrhea K58.0 ; Change in bowel habits R19.4 ; Essential hypertension I10 and BMI 50.0-59.9, adult Z68.43 [facility] [id number] [place] [address] Aug, [place] [address] [id number] [place] [address] Aug, [facility] [id number] [place] [address] Aug, Essential hypertension I10 and BMI 50.0-59.9, adult Z68.43 [facility] [id number] [place] [address] Aug, [facility] [address] [address] Aug, [facility] [id number] [place] [address] Aug, Allergic disorder, initial encounter T78.40XA and BMI 50.0-59.9, adult Z68.43 [facility] [id number] [place] [address] Jul, Other atopic dermatitis L20.89 and BMI 50.0-59.9, adult Z68.43 [facility] [id number] [place] [address] Jul, Intractable migraine without aura and without status migrainosus G43.019 and BMI 50.0-59.9, adult Z68.43 [facility] [address] [address] Jun, DM neuro manif type II E11.49 ; Tension headache G44.209 ; Breast cancer screening Z12.31 and BMI 50.0-59.9, adult Z68.43 [place] [id number] [place] [address] Jun, Tension headache G44.209 ; Breast cancer screening Z12.31 ; BMI 50.0- 59.9, adult Z68.43 and DM neuro manif type II E11.49 [facility] [id number] [place] [address] Apr, Dysuria R30.0 and Acute cystitis with hematuria N30.01 [place] [id number] [place] [address] Apr, Hyperinsulinemia E16.1 [place] [address] [address] Mar, Acute non-recurrent maxillary sinusitis J01.00 [place] [id number] [place] [address] Feb, Cellulitis of unspecified part of limb L03.119 ; Spider bite wound, accidental or unintentional, subsequent encounter T63.301D and BMI 50.0-59.9, adult Z68.43 [place] [id number] [place] [address] Jan, [place] [id number] [place] [address] Jan, Urinary tract infection, site unspecified N39.0 [place] [address] [address] Jan, Acute gastritis without hemorrhage, unspecified gastritis type K29.00 [place] [address] [address] Dec, Pain in right leg M79.604 [place] [address] [address] Dec, Hyperinsulinemia E16.1 and Pain in right leg M79.604 [place] [address] [address] Dec, Angioedema, initial encounter T78.3XXA [place] [address] [address] Dec, Dental examination Z01.20 [place] [address] [address] Dec, [place] [address] [address] Dec, Burning with urination R30.0 and Acute cystitis with hematuria N30.01 [place] [id number] [place] [address] Oct, [place] [address] [address] Sep, [place] [id number] [place] [address] Aug, Hyperinsulinemia E16.1 [place] [address] [address] Aug, [place] [id number] [place] [address] Jul, [place] [id number] [place] [address] Jul, Chondromalacia, left knee M94.262 and Acute lateral meniscus tear of left knee, initial encounter S83.282A [facility] [id number] [place] [address] Jul, [facility] [address] [address] Jun, Hyperinsulinemia E16.1 [facility] [address] [address] Jun, Dysuria R30.0 ; Back pain M54.9 ; Acute pain of left knee M25.562 and Hyperinsulinemia E16.1 [facility] [id number] [place] [address] Jun, Acute non-recurrent maxillary sinusitis J01.00 [facility] [id number] [place] [address] Jun, Dysuria R30.0 [facility] [id number] [place] [address] Jun, Dysuria R30.0 [facility] [id number] [place] [address] Jun, [facility] [id number] [place] [address] May, Dysuria R30.0 and Acute cystitis with hematuria N30.01 [facility] [id number] [place] [address] May, Hyperinsulinemia E16.1 [facility] [id number] [place] [address] May, [facility] [id number] [place] [address] May, Sore throat J02.9 [facility] [id number] [address] May, [facility] [address] [address] 08 Mar, 2016 Hyperinsulinemia E16.1 [facility] [address] [address] Jan, Hyperinsulinemia E16.1 [facility] [address] [address] Dec, DM neuro manif type II E11.49 [facility] [address] [address] November, Hyperinsulinemia E16.1 and Hypertension I10 [facility] [address] [address] Oct, [facility] [address] [address] Oct, Hyperinsulinemia E16.1 [facility] [address] [address] Oct, Pain, unspecified R52 [facility] [address] [address] Oct, Pain in right foot M79.671 and Hyperinsulinemia E16.1 [facility] [id number] [place] [address] Oct, Hyperinsulinemia E16.1 [facility] [address] [address] Oct, Hyperinsulinemia E16.1 [facility] [address] [address] Aug, Hypertension I10 and Viral illness B34.9 [facility] [address] [address] May, Back pain M54.9 [facility] [address] [address] 14 Oct, 2014 [facility] [place] [facility] [address] [id number] [place] [address] 13 Oct, 2014 [facility] [place] [facility] [address] [id number] [place] [address] 30 Sep, 2014 [facility] [place] [facility] [address] [id number] [place] [address] 30 Sep, 2014 [facility] [place] [facility] [address] [id number] [place] [address] Sep, [facility] [place] [facility] [address] [id number] [place] [address] Sep, [facility] [place] [facility] [address] [id number] [place] [address] Sep, [facility] [place] [facility] [address] [id number] [place] [address] Sep, [facility] [place] [facility] [address] [id number] [place] [address] Sep, [facility] [place] [facility] [address] [id number] [place] [address] Sep, [facility] [place] [facility] [address] [id number] [place] [address] Sep, [facility] [place] [facility] [address] [id number] [place] [address] Sep, [facility] [place] [facility] [address] [id number] [address] Sep, [facility] [place] [facility] [address] [id number] [place] [address] Sep, [facility] [place] [facility] [address] [id number] [place] [address] Mar, [facility] [place] [facility] [address] [id number] [place] [address] Mar, [facility] [place] [facility] [address] [id number] [place] [address] Feb, [facility] [place] [facility] [address] [id number] [place] [address] Feb, [facility] [place] [facility] [address] [id number] [place] [address] Feb, [facility] [place] [facility] [address] [id number] [place] [address] Feb, [facility] [place] [facility] [address] [id number] [place] [address] Dec, [facility] [place] [facility] [address] [id number] [place] [address] Dec, [facility] [place] [facility] [address] [id number] [place] [address] Dec, [facility] [place] [facility] [address] [id number] [place] [address] Dec, [facility] [place] [facility] [address] [id number] [place] [address] Dec, [facility] [place] [facility] [address] [id number] [place] [address] Dec, [facility] [place] [facility] [address] [id number] [place] [address] Dec, [facility] [place] [facility] [address] [id number] [place] [address] Sep, [facility] [place] [facility] [address] [id number] [place] [address] Sep, [facility] [place] [facility] [address] [id number] [place] [address] Sep, [facility] [place] [facility] [address] [id number] [place] [address] Sep, [facility] [place] [facility] [address] [id number] [place] [address] Sep, [facility] [place] [facility] [address] [id number] [place] [address] Sep, [facility] [place] [facility] [address] [id number] [place] [address] Sep, [facility] [place] [facility] [address] [id number] [place] [address] Sep, [facility] [place] [facility] [address] [id number] [place] [address] Jul, [facility] [place] [facility] [address] [id number] [place] [address] Jul, [facility] [place] [facility] [address] [id number] [place] [address] Jun, [facility] [place] [facility] [address] [id number] [place] [address] Jun, [facility] [place] [facility] [address] [id number] [place] [address] May, [facility] [place] [facility] [address] [id number] [place] [address] May, [facility] [place] [facility] [address] [id number] [address] May, [facility] [place] [facility] [address] [id number] [address] May, [facility] [place] [facility] [address] [id number] [address] May, [facility] [place] [facility] [address] [id number] [place] [address] May, [facility] [place] [facility] [address] [id number] [place] [address] May, [facility] [place] [facility] [address] [id number] [address] Apr, [facility] [place] [facility] [address] [id number] [address] Apr, [facility] [address] [id number] [place] [address] Apr, [facility] [place] [facility] [address] [id number] [place] [address] Apr, [facility] [place] [facility] [address] [id number] [place] [address] Apr, [facility] [place] [facility] [address] [id number] [place] [address] Apr, [facility] [place] [facility] [address] [id number] [place] [address] Mar, [facility] [place] [facility] [address] [id number] [place] [address] Feb, [facility] [address] [id number] [place] [address] Jan, [facility] [place] [facility] [address] [id number] [place] [address] Jan, [facility] [place] [facility] [address] [id number] [place] [address] Jan, [facility] [place] [facility] [address] [id number] [place] [address] Dec, [facility] [place] [facility] [address] [id number] [address] November, [facility] [place] [facility] [address] [id number] [place] [address] November, [facility] [place] [facility] [address] [id number] [place] [address] November, [facility] [place] [facility] [address] [id number] [place] [address] November, [facility] [place] [facility] [address] [id number] [place] [address] Oct, [facility] [place] [facility] [address] [id number] [place] [address] Aug, 2012 [facility] [place] [facility] [address] [id number] [place] [address] Aug, 2012 [facility] [place] [facility] [address] [id number] [place] [address] Aug, 2012 [facility] [place] [facility] [address] [id number] [place] [address] Aug, 2012 [facility] [place] [facility] [address] [id number] [place] [address] Aug, [facility] [place] [facility] [address] [id number] [place] [address] Aug, [facility] [place] [facility] [address] [facility] [id number] [place] [address] Jul, [facility] [place] [facility] [address] [id number] [place] [address] May, [facility] [place] [facility] [address] [id number] [place] [address] May, [facility] [place] [facility] [address] [facility] [id number] [place] [address] May, [facility] [place] [facility] [address] [id number] [place] [address] May, [facility] [place] [facility] [address] [id number] [place] [address] May, [facility] [place] [facility] [address] [id number] [place] [address] May, [facility] [place] [facility] [address] [id number] [place] [address] May, [facility] [place] [facility] [address] [id number] [place] [address] Apr, [facility] [place] [facility] [address] [id number] [place] [address] Apr, [facility] [place] [facility] [address] [id number] [place] [address] Apr, [facility] [place] [facility] [address] [id number] [place] [address] Apr, [facility] [place] [facility] [address] [facility] [id number] [place] [address] Apr, [facility] [place] [facility] [address] [id number] [place] [address] Sep, [facility] [place] [facility] [address] [id number] [place] [address] 24 Aug, 2011 [facility] [place] [facility] [address] [facility] [id number] [place] [address] 16 Aug, 2011 [facility] [place] [facility] [address] [facility] [id number] [place] [address] Aug, [facility] [place] [facility] [address] [facility] [id number] [place] [address] Aug, [facility] [place] [facility] [address] [facility] [id number] [place] [address] Aug, [facility] [place] [facility] [address] [facility] [id number] [place] [address] Jul, [facility] [place] [facility] [address] [facility] [id number] [place] [address] Jul, [facility] [place] [facility] [address] [id number] [place] [address] Jul, [facility] [place] [facility] [address] [id number] [place] [address] Jun, [facility] [place] [facility] [address] [facility] [id number] [place] [address] Jun, [facility] [place] [facility] [address] [facility] [id number] [place] [address] Jun, [facility] [place] [facility] [address] [facility] [id number] [place] [address] May, [facility] [address] [facility] [id number] [place] [address] Apr, [facility] [address] [facility] [id number] [place] [address] Apr, [facility] [address] [id number] [place] [address] Apr, [facility] [address] [facility] [id number] [place] [address] Apr, IMMUNIZATIONS No Known Immunizations SOCIAL HISTORY Never Assessed REASON FOR VISIT Cough, PT reports that she choked on her drink a few nights ago that caused some irritation in her windpipe. PT notes that it feels like a lot of pressure on her chesst as well as coughing up a very thick yellow phlem that takes time ot get coughed up. Also PT notes a sinus headache as well as teeth pain -Gerry COX PLAN OF CARE Activity Details Follow Up prn Reason: VITAL SIGNS Height 69 in 2017-12-14 Weight 355.2 lbs 2017-12-14 Temperature 98.1 degrees Fahrenheit 2017-12-14 Heart Rate 87 bpm 2017-12-14 Respiratory Rate 20 2017-12-14 Oximetry on room air:97 % 2017-12-14 BMI 52.45 kg/m2 2017-12-14 Blood pressure systolic 130 mmHg 2017-12-14 Blood pressure diastolic 74 mmHg 2017-12-14 MEDICATIONS Medication Instructions Dosage Frequency Start Date [...] 1 tablet 24h Aug, 30 days Active Diltiazem HCl ER Beads 240 MG TAKE ONE CAPSULE BY MOUTH DAILY 90 Active Triamcinolone Acetonide 0.1 % Externally Twice a day 1 application to affected area 12h Jul, 14 days Active Mobic 7.5 MG Orally Once a day as needed for lega=pain 1-2tablet Dec, 90 days Active Dicyclomine HCl 20 MG Orally every 4-6 hours as needed 1 tablet November, Active Hyoscyamine Sulfate .25mg 1 tablet as needed November, Active Onzetra Xsail 11 MG/NOSEPC Nasally Once a day 1 spray in each nostril as needed one time 24h Jun, 1 day(s) Active Spironolactone 25 MG TAKE ONE TABLET BY MOUTH ONCE DAILY 90 Active Losartan Potassium 50 mg Orally Once a day 1 tablet 24h Aug, 90 Active Pepcid 20 MG Orally Once a day 1 tablet 24h Active Zofran 4 MG Orally every 4 hrs 1 tablet 4h November, Active Imitrex 50 MG Orally Twice a day 1 tablet as needed 12h 30 Active Flonase 50 MCG/ACT Nasally Once a day 1 spray in each nostril 24h Active Trulicity 1.5 MG/0.5ML Subcutaneous once weekly inject 0.5 ml Oct, 90 days Not-Taking Propranolol HCl 10 MG TAKE ONE TABLET BY MOUTH TWICE DAILY 30 Active HydrOXYzine HCl 25 MG Orally every 6 hrs 1 tablet as needed 6h Dec, 0 days Active Cipro 500 mg Orally every 12 hrs 1 tablet 12h November, Dec, 10 day(s) Active RESULTS No Results PROCEDURES No Known procedures INSTRUCTIONS MEDICATIONS ADMINISTERED No Known Medications MEDICAL (GENERAL) HISTORY Type Description Date Medical History hypertension Medical History Sleep apnea in adult Surgical History x 3 Surgical History cholecystectomy Surgical History Chemical Stress Test, EKG, Echo 05/2016 Hospitalization History surgeries Hospitalization History UTI VC 05/2016
--- OUTSIDE RECORDS SUMMARY | 2018-12-07 23:10 | XMS REPORT ---
Author Author CARISA KHAN Organization [facility] Address [address] [place] [address] Care Team Providers Care Asset Protection Lead Name Role Phone CARISA KHAN Unavailable PROBLEMS Type Condition ICD9-CM Code DOU14-FF Code Onset Dates Condition Status SNOMED Code Problem Hyperinsulinemia E16.1 Active 14440765 Problem Tension headache G44.209 Active 364131655 Problem DM neuro manif type II E11.49 Active 59439320 Problem Iron deficiency anemia due to chronic blood loss D50.0 Active 636170644 Problem Menorrhagia with irregular cycle N92.1 Active 797097474 Problem Essential hypertension I10 Active 82768246 Problem Intractable migraine without aura and without status migrainosus G43.019 Active 241445799 Problem Sleep apnea in adult G47.30 Active 78033547 Problem Irritable bowel syndrome with diarrhea K58.0 Active 793212423 ALLERGIES Substance Reaction Event Type Date Status Codeine hives Drug Allergy November, Active liquid codeine/ pt. can tolerate drugs like hydroco Unknown Non Drug Allergy November, Active Red Onion hives Non Drug Allergy November, Active Chlorthalidone 25 Mg Tablet hives Non Drug Allergy November, Active Hydrochlorothiazide 25 Mg Tablet hives Non Drug Allergy November, Active ENCOUNTERS Encounter Location Date Diagnosis [facility] [id number] [place] [address] Feb, Pain in right leg M79.604 [place] [id number] [place] [address] Jan, Pneumonia of left lung due to infectious organism, unspecified part of lung J18.9 [facility] [id number] [address] Dec, Pneumonia due to Mycoplasma pneumoniae, unspecified laterality, unspecified part of lung J15.7 and BMI 50.0-59.9, adult Z68.43 [place] [address] [address] Dec, [place] [address] [address] Dec, Bronchitis J40 and BMI 50.0-59.9, adult Z68.43 [place] [address] [address] November, Bronchitis J40 ; LLQ pain R10.32 and BMI 50.0-59.9, adult Z68.43 [place] [address] [address] November, Iron deficiency anemia due to chronic blood loss D50.[address] [address] November, [place] [address] [address] November, Iron deficiency anemia due to chronic blood loss D50.0 ; DM neuro manif type II E11.49 ; Menorrhagia with irregular cycle N92.1 and BMI 50.0- 59.9, adult Z68.43 [facility] [place] [address] [address] Oct, Sore throat J02.9 and Acute nasopharyngitis J00 [facility] [address] [address] Oct, Left leg pain M79.605 and BMI 50.0-59.9, adult Z68.43 [facility] [address] [address] Sep, Upper respiratory tract infection, unspecified type J06.9 and BMI 50.0-59.9, adult Z68.43 [place] [address] [address] Sep, Menorrhagia with irregular cycle N92.1 ; Sleep apnea in adult G47.30 and BMI 50.0-59.9, adult Z68.43 [facility] [id number] [place] [address] Sep, [facility] [id number] [place] [address] Aug, [place] [address] [address] Aug, [place] [address] [address] Aug, [place] [id number] [place] [address] Aug, LLQ pain R10.32 ; Irritable bowel syndrome with diarrhea K58.0 ; Change in bowel habits R19.4 ; Essential hypertension I10 and BMI 50.0-59.9, adult Z68.43 [facility] [id number] [place] [address] Aug, [place] [id number] [place] [address] Aug, [facility] [id number] [place] [address] Aug, Essential hypertension I10 and BMI 50.0-59.9, adult Z68.43 [facility] [id number] [place] [address] Aug, [facility] [address] [address] Aug, [facility] [id number] [place] [address] Aug, Allergic disorder, initial encounter T78.40XA and BMI 50.0-59.9, adult Z68.43 [facility] [id number] [place] [address] Jul, Other atopic dermatitis L20.89 and BMI 50.0-59.9, adult Z68.43 [facility] [id number] [place] [address] Jul, Intractable migraine without aura and without status migrainosus G43.019 and BMI 50.0-59.9, adult Z68.43 [facility] [address] [address] Jun, DM neuro manif type II E11.49 ; Tension headache G44.209 ; Breast cancer screening Z12.31 and BMI 50.0-59.9, adult Z68.43 [place] [id number] [place] [address] Jun, Tension headache G44.209 ; Breast cancer screening Z12.31 ; BMI 50.0- 59.9, adult Z68.43 and DM neuro manif type II E11.49 [facility] [id number] [place] [address] Apr, Dysuria R30.0 and Acute cystitis with hematuria N30.01 [place] [id number] [place] [address] Apr, Hyperinsulinemia E16.1 [place] [address] [address] Mar, Acute non-recurrent maxillary sinusitis J01.00 [place] [id number] [place] [address] Feb, Cellulitis of unspecified part of limb L03.119 ; Spider bite wound, accidental or unintentional, subsequent encounter T63.301D and BMI 50.0-59.9, adult Z68.43 [place] [id number] [place] [address] Jan, [place] [id number] [place] [address] Jan, Urinary tract infection, site unspecified N39.0 [place] [address] [address] Jan, Acute gastritis without hemorrhage, unspecified gastritis type K29.00 [place] [address] [address] Dec, Pain in right leg M79.604 [place] [address] [address] Dec, Hyperinsulinemia E16.1 and Pain in right leg M79.604 [place] [address] [address] Dec, Angioedema, initial encounter T78.3XXA [place] [address] [address] Dec, Dental examination Z01.20 [place] [address] [address] Dec, [place] [address] [address] Dec, Burning with urination R30.0 and Acute cystitis with hematuria N30.01 [place] [id number] [place] [address] Oct, [place] [address] [address] Sep, [place] [id number] [place] [address] Aug, Hyperinsulinemia E16.1 [place] [address] [address] Aug, [place] [id number] [place] [address] Jul, [place] [id number] [place] [address] Jul, Chondromalacia, left knee M94.262 and Acute lateral meniscus tear of left knee, initial encounter S83.282A [facility] [id number] [place] [address] Jul, [facility] [address] [address] Jun, Hyperinsulinemia E16.1 [facility] [address] [address] Jun, Dysuria R30.0 ; Back pain M54.9 ; Acute pain of left knee M25.562 and Hyperinsulinemia E16.1 [facility] [id number] [place] [address] Jun, Acute non-recurrent maxillary sinusitis J01.00 [facility] [id number] [place] [address] Jun, Dysuria R30.0 [facility] [id number] [place] [address] Jun, Dysuria R30.0 [facility] [id number] [place] [address] Jun, [facility] [id number] [place] [address] May, Dysuria R30.0 and Acute cystitis with hematuria N30.01 [facility] [id number] [place] [address] May, Hyperinsulinemia E16.1 [facility] [id number] [place] [address] May, [facility] [id number] [place] [address] May, Sore throat J02.9 [facility] [id number] [place] [address] May, [facility] [address] [address] 08 Mar, 2016 Hyperinsulinemia E16.1 [facility] [address] [address] Jan, Hyperinsulinemia E16.1 [facility] [address] [address] Dec, DM neuro manif type II E11.49 [facility] [address] [address] November, Hyperinsulinemia E16.1 and Hypertension I10 [facility] [address] [address] Oct, [facility] [address] [address] Oct, Hyperinsulinemia E16.1 [facility] [address] [address] Oct, Pain, unspecified R52 [facility] [address] [address] Oct, Pain in right foot M79.671 and Hyperinsulinemia E16.1 [facility] [id number] [place] [address] Oct, Hyperinsulinemia E16.1 [facility] [address] [address] Oct, Hyperinsulinemia E16.1 [facility] [address] [address] Aug, Hypertension I10 and Viral illness B34.9 [facility] [address] [address] May, Back pain M54.9 [facility] [address] [address] 14 Oct, 2014 [facility] [place] [facility] [address] [id number] [place] [address] 13 Oct, 2014 [facility] [place] [facility] [address] [id number] [place] [address] 30 Sep, 2014 [facility] [place] [facility] [address] [id number] [place] [address] 30 Sep, 2014 [facility] [place] [facility] [address] [id number] [place] [address] Sep, [facility] [place] [facility] [address] [id number] [place] [address] Sep, [facility] [place] [facility] [address] [id number] [place] [address] Sep, [facility] [place] [facility] [address] [id number] [place] [address] Sep, [facility] [place] [facility] [address] [id number] [place] [address] Sep, [facility] [place] [facility] [address] [id number] [place] [address] Sep, [facility] [place] [facility] [address] [id number] [place] [address] Sep, [facility] [place] [facility] [address] [id number] [place] [address] Sep, [facility] [place] [facility] [address] [id number], [place] [address] Sep, [facility] [place] [facility] [address] [id number] [place] [address] Sep, [facility] [place] [facility] [address] [id number] [place] [address] Mar, [facility] [place] [facility] [address] [id number] [place] [address] Mar, [facility] [place] [facility] [address] [id number] [place] [address] Feb, [facility] [place] [facility] [address] [id number] [place] [address] Feb, [facility] [place] [facility] [address] [id number] [place] [address] Feb, [facility] [place] [facility] [address] [id number] [place] [address] Feb, [facility] [place] [facility] [address] [id number] [place] [address] Dec, [facility] [place] [facility] [address] [id number] [place] [address] Dec, [facility] [place] [facility] [address] [id number] [place] [address] Dec, [facility] [place] [facility] [address] [id number] [place] [address] Dec, [facility] [place] [facility] [address] [id number] [place] [address] Dec, [facility] [place] [facility] [address] [id number] [place] [address] Dec, [facility] [place] [facility] [address] [id number] [place] [address] Dec, [facility] [place] [facility] [address] [id number] [place] [address] Sep, [facility] [place] [facility] [address] [id number] [place] [address] Sep, [facility] [place] [facility] [address] [id number] [place] [address] Sep, [facility] [place] [facility] [address] [id number] [place] [address] Sep, [facility] [place] [facility] [address] [id number] [place] [address] Sep, [facility] [place] [facility] [address] [id number] [place] [address] Sep, [facility] [place] [facility] [address] [id number] [place] [address] Sep, [facility] [place] [facility] [address] [id number] [place] [address] Sep, [facility] [place] [facility] [address] [id number] [place] [address] Jul, [facility] [place] [facility] [address] [id number] [place] [address] Jul, [facility] [place] [facility] [address] [id number] [place] [address] Jun, [facility] [place] [facility] [address] [id number] [place] [address] Jun, [facility] [place] [facility] [address] [id number] [place] [address] May, [facility] [place] [facility] [address] [id number] [place] [address] May, [facility] [place] [facility] [address] [id number], [place] [address] May, [facility] [place] [facility] [address] [id number], [place] [address] May, [facility] [place] [facility] [address] [id number], [place] [address] May, [facility] [place] [facility] [address] [id number] [place] [address] May, [facility] [place] [facility] [address] [id number] [place] [address] May, [facility] [place] [facility] [address] [id number], [place] [address] Apr, [facility] [place] [facility] [address] [id number], [place] [address] Apr, [facility] [address] [id number] [place] [address] Apr, [facility] [place] [facility] [address] [id number] [place] [address] Apr, [facility] [place] [facility] [address] [id number] [place] [address] Apr, [facility] [place] [facility] [address] [id number] [place] [address] Apr, [facility] [place] [facility] [address] [id number] [place] [address] Mar, [facility] [place] [facility] [address] [id number] [place] [address] Feb, [facility] [address] [id number] [place] [address] Jan, [facility] [place] [facility] [address] [id number] [place] [address] Jan, [facility] [place] [facility] [address] [id number] [place] [address] Jan, [facility] [place] [facility] [address] [id number] [place] [address] Dec, [facility] [place] [facility] [address] [id number], [place] [address] November, [facility] [place] [facility] [address] [id number] [place] [address] November, [facility] [place] [facility] [address] [id number] [place] [address] November, [facility] [place] [facility] [address] [id number] [place] [address] November, [facility] [place] [facility] [address] [id number] [place] [address] Oct, [facility] [place] [facility] [address] [id number] [place] [address] Aug, 2012 [facility] [place] [facility] [address] [id number] [place] [address] Aug, 2012 [facility] [place] [facility] [address] [id number] [place] [address] Aug, 2012 [facility] [place] [facility] [address] [id number] [place] [address] Aug, 2012 [facility] [place] [facility] [address] [id number] [place] [address] Aug, [facility] [place] [facility] [address] [id number] [place] [address] Aug, [facility] [place] [facility] [address] [facility] [id number] [place] [address] Jul, [facility] [place] [facility] [address] [id number] [place] [address] May, [facility] [place] [facility] [address] [id number] [place] [address] May, [facility] [place] [facility] [address] [facility] [id number] [place] [address] May, [facility] [place] [facility] [address] [id number] [place] [address] May, [facility] [place] [facility] [address] [id number] [place] [address] May, [facility] [place] [facility] [address] [id number] [place] [address] May, [facility] [place] [facility] [address] [id number] [place] [address] May, [facility] [place] [facility] [address] [id number] [place] [address] Apr, [facility] [place] [facility] [address] [id number] [place] [address] Apr, [facility] [place] [facility] [address] [id number] [place] [address] Apr, [facility] [place] [facility] [address] [id number] [place] [address] Apr, [facility] [place] [facility] [address] [facility] [id number] [place] [address] Apr, [facility] [place] [facility] [address] [id number] [place] [address] Sep, [facility] [place] [facility] [address] [id number] [place] [address] 24 Aug, 2011 [facility] [place] [facility] [address] [facility] [id number] [place] [address] 16 Aug, 2011 [facility] [place] [facility] [address] [facility] [id number] [place] [address] Aug, [facility] [place] [facility] [address] [facility] [id number] [place] [address] Aug, [facility] [place] [facility] [address] [facility] [id number] [place] [address] Aug, [facility] [place] [facility] [address] [facility] [id number] [place] [address] Jul, [facility] [place] [facility] [address] [facility] [id number] [place] [address] Jul, [facility] [place] [facility] [address] [id number] [place] [address] Jul, [facility] [place] [facility] [address] [id number] [place] [address] Jun, [facility] [place] [facility] [address] [facility] [id number] [place] [address] Jun, [facility] [place] [facility] [address] [facility] [id number] [place] [address] Jun, [facility] [place] [facility] [address] [facility] [id number], [place] [address] May, [facility] [address] [facility] [id number], [place] [address] Apr, [facility] [address] [facility] [id number], [place] [address] Apr, [facility] [address] [facility] [id number], [place] [address] Apr, [facility] [address] [facility] [id number], [place] [address] Apr, IMMUNIZATIONS No Known Immunizations SOCIAL HISTORY Never Assessed REASON FOR VISIT Diabetes f/u WB-MA PLAN OF CARE Activity Details Follow Up 4 Months Reason:DM VITAL SIGNS Height 69 in 2017-11-30 Weight 356 lbs 2017-11-30 Temperature 97.9 degrees Fahrenheit 2017-11-30 Heart Rate 74 bpm 2017-11-30 Respiratory Rate 20 2017-11-30 BMI 52.57 kg/m2 2017-11-30 Blood pressure systolic 126 mmHg 2017-11-30 Blood pressure diastolic 78 mmHg 2017-11-30 MEDICATIONS Medication Instructions Dosage Frequency Start Date End Date Duration Status Propranolol HCl 10 MG TAKE ONE TABLET BY MOUTH TWICE DAILY 30 Active Spironolactone 25 MG TAKE ONE TABLET BY MOUTH ONCE DAILY 90 Active Protonix 40 MG Orally Once a day 1 tablet 24h Aug, 30 days Active Triamcinolone Acetonide 0.1 % Externally Twice a day 1 application to affected area 12h Jul, 14 days Not-Taking Losartan Potassium 50 mg Orally Once a day 1 tablet 24h Aug, 90 Active Zyrtec Allergy 10 MG Orally Once a day 1 tablet 24h Active Mobic 7.5 MG Orally Once a day as needed for lega=pain 1-2tablet Dec, 90 days Active Metformin HCl 500 MG Orally 2 times a day 1 tablet with meals 12h 90 Active Diltiazem HCl ER Beads 240 MG TAKE ONE CAPSULE BY MOUTH DAILY 90 Active Flonase 50 MCG/ACT Nasally Once a day 1 spray in each nostril 24h Active HydrOXYzine HCl 25 MG Orally every 6 hrs 1 tablet as needed 6h Dec, 0 days Active Imitrex 50 MG Orally Twice a day 1 tablet as needed 12h 30 Active Pepcid 20 MG Orally Once a day 1 tablet 24h Active Trulicity 1.5 MG/0.5ML Subcutaneous once weekly inject 0.5 ml Oct, 90 days Active Onzetra Xsail 11 MG/NOSEPC Nasally Once a day 1 spray in each nostril as needed one time 24h Jun, 1 day(s) Not-Taking RESULTS Name Result Date Reference Range A1C (IN HOUSE) 2017-11-30 A1C IN HOUSE 5.6 4.3 - 5.6 % Previous A1c 6.0 Lot [id number] Exp date 09/2019 CBC 2017-11-30 WHITE BLOOD CELL COUNT 7.1 3.8-10.8 RED BLOOD CELL COUNT 5.01 3.80-5.10 HEMOGLOBIN 11.4 11.7-15.5 HEMATOCRIT 38.7 35.0-45.0 MCV 77.2 80.0-100.0 MCH 22.8 27.0-33.0 MCHC 29.5 32.0-36.0 RDW 16.1 11.0-15.0 PLATELET COUNT 375 140-400 MPV 9.5 7.5-12.5 ABSOLUTE NEUTROPHILS 3493 [id number] ABSOLUTE LYMPHOCYTES 2592 [id number] ABSOLUTE MONOCYTES 618 200-950 ABSOLUTE EOSINOPHILS 348 15-500 ABSOLUTE BASOPHILS 50 0-200 NEUTROPHILS 49.2 LYMPHOCYTES 36.5 MONOCYTES 8.7 EOSINOPHILS 4.9 BASOPHILS 0.7 PROCEDURES Procedure Date Ordered Result Body Site GLYCATED HEMOGLOBIN TEST November 30, 2017 [facility] November 30, 2017 VENIPUNCT, ROUTINE* November 30, 2017 INSTRUCTIONS MEDICATIONS ADMINISTERED No Known Medications MEDICAL (GENERAL) HISTORY Type Description Date Medical History hypertension Medical History Sleep apnea in adult Surgical History x 3 Surgical History cholecystectomy Surgical History Chemical Stress Test, EKG, Echo 05/2016 Hospitalization History surgeries Hospitalization History UTI VC 05/2016
--- OUTSIDE RECORDS SUMMARY | 2018-12-07 23:11 | XMS REPORT ---
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 Active 95338706 Problem Tension headache G44.209 Active 430190158 Problem DM neuro manif type II E11.49 Active 47274731 Problem Iron deficiency anemia due to chronic blood loss D50.0 Active 776104509 Problem Menorrhagia with irregular cycle N92.1 Active 215441101 Problem Essential hypertension I10 Active 13621866 Problem Intractable migraine without aura and without status migrainosus G43.019 Active 907211142 Problem Sleep apnea in adult G47.30 Active 05364417 Problem Irritable bowel syndrome with diarrhea K58.0 Active 926957482 ALLERGIES No Information ENCOUNTERS Encounter Location Date Diagnosis [place] [id number] [place] [address] Feb, Pain in right leg M79.604 [place] [id number] [place] [address] Jan, Pneumonia of left lung due to infectious organism, unspecified part of lung J18.9 [place] [id number] [place] [address] Dec, Pneumonia due to Mycoplasma pneumoniae, unspecified laterality, unspecified part of lung J15.7 and BMI 50.0-59.9, adult Z68.43 [place] [id number] [place] [address] Dec, [place] [address] [address] Dec, Bronchitis J40 and BMI 50.0-59.9, adult Z68.43 [place] [address] [place] [id number] [place] [address] November, Bronchitis J40 ; LLQ pain R10.32 and BMI 50.0-59.9, adult Z68.43 [place] [address] [address] November, Iron deficiency anemia due to chronic blood loss D50.0 [place] [address] [address] November, [place] [address] [address] November, Iron deficiency anemia due to chronic blood loss D50.0 ; DM neuro manif type II E11.49 ; Menorrhagia with irregular cycle N92.1 and BMI 50.0- 59.9, adult Z68.43 [facility] [place] [address] [address] Oct, Sore throat J02.9 and Acute nasopharyngitis J00 [facility] [address] [address] Oct, Left leg pain M79.605 and BMI 50.0-59.9, adult Z68.43 [facility] [place] [address] [address] Sep, Upper respiratory tract infection, unspecified type J06.9 and BMI 50.0-59.9, adult Z68.43 [place] [address] [address] Sep, Menorrhagia with irregular cycle N92.1 ; Sleep apnea in adult G47.30 and BMI 50.0-59.9, adult Z68.43 [place] [address] [address] Sep, [place] [address] [place] [id number] [place] [address] Aug, [facility] [address] [address] Aug, [facility] [address] [address] Aug, [place] [address] [address] Aug, LLQ pain R10.32 ; Irritable bowel syndrome with diarrhea K58.0 ; Change in bowel habits R19.4 ; Essential hypertension I10 and BMI 50.0-59.9, adult Z68.43 [place] [address] [address] Aug, [place] [address] [address] Aug, [facility] [address] [place] [address] Aug, Essential hypertension I10 and BMI 50.0-59.9, adult Z68.43 [place] [address] [address] Aug, [place] [address] [place] [id number] [place] [address] Aug, [facility] [address] [address] 02 Aug, 2017 Allergic disorder, initial encounter T78.40XA and BMI 50.0-59.9, adult Z68.43 [facility] [address] [place] [address] Jul, Other atopic dermatitis L20.89 and BMI 50.0-59.9, adult Z68.43 [place] [address] [address] Jul, Intractable migraine without aura and without status migrainosus G43.019 and BMI 50.0-59.9, adult Z68.43 [facility] [address] [address] Jun, DM neuro manif type II E11.49 ; Tension headache G44.209 ; Breast cancer screening Z12.31 and BMI 50.0-59.9, adult Z68.43 [facility] [address] [address] Jun, Tension headache G44.209 ; Breast cancer screening Z12.31 ; BMI 50.0- 59.9, adult Z68.43 and DM neuro manif type II E11.49 [facility] [address] [address] Apr, Dysuria R30.0 and Acute cystitis with hematuria N30.[address] [address] Apr, Hyperinsulinemia E16.[address] [address] Mar, Acute non-recurrent maxillary sinusitis J01.[address] [address] Feb, Cellulitis of unspecified part of limb L03.119 ; Spider bite wound, accidental or unintentional, subsequent encounter T63.301D and BMI 50.0-59.9, adult Z68.43 [facility] [address] [address] Jan, [address] [address] Jan, Urinary tract infection, site unspecified N39.0 [place] [address] [address] Jan, Acute gastritis without hemorrhage, unspecified gastritis type K29.00 [place] [address] [place] [id number] [place] [address] 30 Dec, 2016 Pain in right leg M79.604 [place] [address] [address] 28 Dec, 2016 Hyperinsulinemia E16.1 and Pain in right leg M79.604 [place] [address] [address] Dec, Angioedema, initial encounter T78.3XXA [place] [address] [address] 15 Dec, 2016 Dental examination Z01.20 [place] [address] [address] 13 Dec, 2016 [place] [address] [address] Dec, Burning with urination R30.0 and Acute cystitis with hematuria N30.01 [place] [address] [address] Oct, [place] [address] [address] Sep, [place] [address] [address] Aug, Hyperinsulinemia E16.1 [place] [address] [address] Aug, [place] [address] [address] Jul, [place] [address] [address] Jul, Chondromalacia, left knee M94.262 and Acute lateral meniscus tear of left knee, initial encounter S83.282A [place] [address] [address] Jul, [facility] [address] [place] [id number] [place] [address] Jun, Hyperinsulinemia E16.1 [facility] [address] [place] [id number] [place] [address] Jun, Dysuria R30.0 ; Back pain M54.9 ; Acute pain of left knee M25.562 and Hyperinsulinemia E16.1 [facility] [address] [place] [id number] [place] [address] 14 Jun, 2016 Acute non-recurrent maxillary sinusitis J01.00 [facility] [address] [place] [id number] [place] [address] Jun, Dysuria R30.0 [facility] [address] [place] [id number] [place] [address] Jun, Dysuria R30.0 [facility] [address] [place] [id number] [place] [address] Jun, [facility] [address] [place] [id number] [place] [address] May, Dysuria R30.0 and Acute cystitis with hematuria N30.01 [facility] [address] [place] [id number] [place] [address] May, Hyperinsulinemia E16.1 [facility] [address] [place] [id number] [place] [address] May, [facility] [address] [place] [id number] [place] [address] May, Sore throat J02.9 [facility] [address] [address] May, [facility] [address] [place] [id number] [place] [address] 08 Mar, 2016 Hyperinsulinemia E16.1 [facility] [address] [place] [id number] [place] [address] Jan, Hyperinsulinemia E16.1 [facility] [address] [place] [id number] [place] [address] Dec, DM neuro manif type II E11.49 [facility] [address] [place] [id number] [place] [address] November, Hyperinsulinemia E16.1 and Hypertension I10 [facility] [address] [address] Oct, [facility] [address] [address] Oct, Hyperinsulinemia E16.1 [facility] [address] [address] Oct, Pain, unspecified R52 [facility] [address] [address] Oct, Pain in right foot M79.671 and Hyperinsulinemia E16.1 [facility] [address] [place] [id number] [place] [address] Oct, Hyperinsulinemia E16.1 [facility] [address] [address] Oct, Hyperinsulinemia E16.1 [facility] [address] [place] [id number] [place] [address] 17 Aug, 2015 Hypertension I10 and Viral illness B34.9 [facility] [address] [place] [id number] [place] [address] May, Back pain M54.9 [facility] [address] [place] [id number] [place] [address] 14 Oct, 2014 [facility] [address] [address] Oct, [facility] [address] [place] [id number] [place] [address] 30 Sep, 2014 [facility] [place] [facility] [address] [id number] [place] [address] 30 Sep, 2014 [facility] [place] [facility] [address] [id number] [place] [address] Sep, 2014 [facility] [place] [facility] [address] [id number] [place] [address] Sep, 2014 [facility] [place] [facility] [address] [id number] [place] [address] Sep, 2014 [facility] [place] [facility] [address] [id number] [place] [address] Sep, 2014 [facility] [place] [facility] [address] [id number] [place] [address] Sep, 2014 [facility] [place] [facility] [address] [id number] [place] [address] Sep, 2014 [facility] [place] [facility] [address] [id number] [place] [address] Sep, 2014 [facility] [place] [facility] [address] [id number] [place] [address] Sep, 2014 [facility] [place] [facility] [address] [id number] [place] [address] Sep, 2014 [facility] [place] [facility] [address] [id number] [place] [address] Sep, 2014 [facility] [place] [facility] [address] [id number] [place] [address] Mar, [facility] [place] [facility] [address] [id number] [place] [address] Mar, [facility] [place] [facility] [address] [id number] [place] [address] Feb, [facility] [place] [facility] [address] [id number] [place] [address] Feb, [facility] [place] [facility] [address] [id number] [place] [address] Feb, [facility] [place] [facility] [address] [id number] [place] [address] Feb, [facility] [place] [facility] [address] [id number] [place] [address] Dec, [facility] [place] [facility] [address] [id number] [place] [address] Dec, [facility] [place] [facility] [address] [id number] [place] [address] Dec, [facility] [place] [facility] [address] [id number] [place] [address] Dec, [facility] [place] [facility] [address] [id number] [place] [address] Dec, [facility] [place] [facility] [address] [id number] [place] [address] Dec, [facility] [place] [facility] [address] [id number] [place] [address] Dec, [facility] [place] [facility] [address] [id number] [place] [address] Sep, [facility] [place] [facility] [address] [id number] [place] [address] Sep, [facility] [place] [facility] [address] [id number] [place] [address] Sep, [facility] [place] [facility] [address] [id number] [place] [address] Sep, [facility] [place] [facility] [address] [id number] [place] [address] Sep, [facility] [place] [facility] [address] [id number] [place] [address] Sep, [facility] [place] [facility] [address] [id number] [place] [address] Sep, [facility] [place] [facility] [address] [id number], [place] [address] Sep, [facility] [address] [id number] [place] [address] Jul, [facility] [place] [facility] [address] [id number] [place] [address] Jul, [facility] [place] [facility] [address] [id number] [place] [address] Jun, [facility] [place] [facility] [address] [id number] [place] [address] Jun, [facility] [place] [facility] [address] [id number] [place] [address] May, [facility] [place] [facility] [address] [id number] [place] [address] May, [facility] [place] [facility] [address] [id number], [place] [address] May, [facility] [place] [facility] [address] [id number], [place] [address] May, [facility] [place] [facility] [address] [id number] [place] [address] May, [facility] [place] [facility] [address] [facility] [id number], [place] [address] May, [facility] [place] [facility] [address] [id number], [place] [address] 05 May, 2013 [facility] [place] [facility] [address] [id number], [place] [address] Apr, [facility] [place] [facility] [address] [id number][place] [address] Apr, [facility] [place] [facility] [address] [facility] [id number], [place] [address] Apr, [facility] [place] [facility] [address] [facility] [id number], [place] [address] Apr, [facility] [place] [facility] [address] [id number] [place] [address] Apr, [facility] [address] [id number] [place] [address] Apr, [facility] [place] [facility] [address] [id number] [place] [address] Mar, [facility] [place] [facility] [address] [id number] [place] [address] Feb, [facility] [place] [facility] [address] [id number] [place] [address] Jan, [facility] [place] [facility] [address] [id number] [place] [address] Jan, [facility] [place] [facility] [address] [id number] [place] [address] Jan, [facility] [place] [facility] [address] [id number] [place] [address] Dec, [facility] [address] [id number] [place] [address] November, [facility] [place] [facility] [address] [id number] [place] [address] November, [facility] [place] [facility] [address] [id number] [place] [address] November, [facility] [place] [facility] [address] [id number] [place] [address] November, [facility] [place] [facility] [address] [id number] [place] [address] Oct, [facility] [place] [facility] [address] [id number] [place] [address] Aug, [facility] [place] [facility] [address] [id number] [place] [address] Aug, [facility] [place] [facility] [address] [id number] [place] [address] Aug, [facility] [place] [facility] [address] [id number] [place] [address] Aug, [facility] [place] [facility] [address] [id number] [place] [address] Aug, [facility] [place] [facility] [address] [facility] [id number] [place] [address] Aug, [facility] [place] [facility] [address] [id number] [place] [address] Jul, [facility] [place] [facility] [address] [facility] [id number] [place] [address] May, [facility] [place] [facility] [address] [facility] [id number] [place] [address] May, [facility] [place] [facility] [address] [facility] [id number] [place] [address] May, [facility] [place] [facility] [address] [facility] [id number] [place] [address] May, [facility] [place] [facility] [address] [facility] [id number] [place] [address] May, [facility] [place] [facility] [address] [facility] [id number] [place] [address] May, [facility] [place] [facility] [address] [facility] [id number], [place] [address] May, [facility] [place] [facility] [address] [facility] [id number], [place] [address] Apr, [facility] [place] [facility] [address] [facility] [id number] [place] [address] Apr, [facility] [place] [facility] [address] [facility] [id number] [place] [address] Apr, [facility] [place] [facility] [address] [facility] [id number] [place] [address] Apr, [facility] [place] [facility] [address] [id number] [place] [address] 30 Apr, 2012 [facility] [place] [facility] [address] [id number] [place] [address] Sep, [facility] [place] [facility] [address] [id number] [place] [address] 24 Aug, 2011 [facility] [place] [facility] [address] [id number] [place] [address] 16 Aug, 2011 [facility] [place] [facility] [address] [id number] [place] [address] Aug, [facility] [place] [facility] [address] [id number] [place] [address] Aug, [facility] [place] [facility] [address] [id number] [place] [address] Aug, [facility] [place] [facility] [address] [id number] [place] [address] Jul, [facility] [place] [facility] [address] [id number] [place] [address] Jul, [facility] [place] [facility] [address] [facility] [id number] [place] [address] Jul, [facility] [place] [facility] [address] [facility] [id number] [place] [address] Jun, [facility] [place] [facility] [address] [id number] [place] [address] Jun, [facility] [place] [facility] [address] [id number] [place] [address] Jun, [facility] [place] [facility] [address] [id number] [place] [address] May, [facility] [place] [facility] [address] [id number] [place] [address] 15 Apr, 2011 [facility] [place] [facility] [address] [id number] [place] [address] Apr, [facility] [address] [facility] [id number] [place] [address] Apr, [facility] [address] [facility] [id number] [place] [address] Apr, IMMUNIZATIONS No Known Immunizations SOCIAL HISTORY Never Assessed REASON FOR VISIT lab results PLAN OF CARE VITAL SIGNS MEDICATIONS Medication Instructions Dosage Frequency Start Date End Date Duration Status Ferrous Sulfate 325 (65 Fe) MG Orally Once a day 1 tablet 24h November, 30 day(s) Active RESULTS No Results PROCEDURES No Known procedures INSTRUCTIONS MEDICATIONS ADMINISTERED No Known Medications MEDICAL (GENERAL) HISTORY Type Description Date Medical History hypertension Medical History Sleep apnea in adult Surgical History x 3 Surgical History cholecystectomy Surgical History Chemical Stress Test, EKG, Echo 05/2016 Hospitalization History surgeries Hospitalization History UTI VC 05/2016
--- OUTSIDE RECORDS SUMMARY | 2018-12-07 23:11 | XMS REPORT ---
Author Author CARISA KHAN Organization [facility] Address [address] [place] [address] Care Team Providers Care Desktop Support Engineer Name Role Phone CARISA KHAN Unavailable PROBLEMS Type Condition ICD9-CM Code QLN00-YD Code Onset Dates Condition Status SNOMED Code Problem Hyperinsulinemia E16.1 Active 16022343 Problem Tension headache G44.209 Active 458465216 Problem DM neuro manif type II E11.49 Active 53255426 Problem Iron deficiency anemia due to chronic blood loss D50.0 Active 726813257 Problem Menorrhagia with irregular cycle N92.1 Active 680385627 Problem Essential hypertension I10 Active 14428703 Problem Intractable migraine without aura and without status migrainosus G43.019 Active 222336034 Problem Sleep apnea in adult G47.30 Active 27268895 Problem Irritable bowel syndrome with diarrhea K58.0 Active 685860387 ALLERGIES No Information ENCOUNTERS Encounter Location Date Diagnosis [place] [id number] [place] [address] Feb, Pain in right leg M79.604 [place] [id number] [place] [address] Jan, Pneumonia of left lung due to infectious organism, unspecified part of lung J18.9 [place] [id number] [place] [address] Dec, Pneumonia due to Mycoplasma pneumoniae, unspecified laterality, unspecified part of lung J15.7 and BMI 50.0-59.9, adult Z68.43 [place] [id number] [place] [address] Dec, [place] [address] [address] Dec, Bronchitis J40 and BMI 50.0-59.9, adult Z68.43 [place] [address] [place] [id number] [place] [address] November, Bronchitis J40 ; LLQ pain R10.32 and BMI 50.0-59.9, adult Z68.43 [place] [address] [address] November, Iron deficiency anemia due to chronic blood loss D50.0 [place] [address] [address] November, [place] [address] [address] November, Iron deficiency anemia due to chronic blood loss D50.0 ; DM neuro manif type II E11.49 ; Menorrhagia with irregular cycle N92.1 and BMI 50.0- 59.9, adult Z68.43 [facility] [place] [address] [address] Oct, Sore throat J02.9 and Acute nasopharyngitis J00 [facility] W[facility] IN [address] [address] Oct, Left leg pain M79.605 and BMI 50.0-59.9, adult Z68.43 [facility] [place] [address] [address] Sep, Upper respiratory tract infection, unspecified type J06.9 and BMI 50.0-59.9, adult Z68.43 [place] [address] [address] Sep, Menorrhagia with irregular cycle N92.1 ; Sleep apnea in adult G47.30 and BMI 50.0-59.9, adult Z68.43 [place] [address] [address] Sep, [place] [address] [place] [id number] [place] [address] Aug, [facility] [address] [address] Aug, [facility] [address] [address] Aug, [place] [address] [address] Aug, LLQ pain R10.32 ; Irritable bowel syndrome with diarrhea K58.0 ; Change in bowel habits R19.4 ; Essential hypertension I10 and BMI 50.0-59.9, adult Z68.43 [place] [address] [address] Aug, [place] [address] [address] Aug, [facility]ARE [address] [place] [address] Aug, Essential hypertension I10 and BMI 50.0-59.9, adult Z68.43 [place] [address] [address] Aug, [place] [address] [place] [id number] [place] [address] Aug, [facility] [address] [address] 02 Aug, 2017 Allergic disorder, initial encounter T78.40XA and BMI 50.0-59.9, adult Z68.43 [facility] [address] [place] [address] Jul, Other atopic dermatitis L20.89 and BMI 50.0-59.9, adult Z68.43 [place] [address] [address] Jul, Intractable migraine without aura and without status migrainosus G43.019 and BMI 50.0-59.9, adult Z68.43 [facility] [address] [address] Jun, DM neuro manif type II E11.49 ; Tension headache G44.209 ; Breast cancer screening Z12.31 and BMI 50.0-59.9, adult Z68.43 [facility] [address] [address] Jun, Tension headache G44.209 ; Breast cancer screening Z12.31 ; BMI 50.0- 59.9, adult Z68.43 and DM neuro manif type II E11.49 [facility] [address] [address] Apr, Dysuria R30.0 and Acute cystitis with hematuria N30.[address] [address] Apr, Hyperinsulinemia E16.[address] [address] Mar, Acute non-recurrent maxillary sinusitis J01.[address] [address] Feb, Cellulitis of unspecified part of limb L03.119 ; Spider bite wound, accidental or unintentional, subsequent encounter T63.301D and BMI 50.0-59.9, adult Z68.43 [facility] [address] [address] Jan, [address] [address] Jan, Urinary tract infection, site unspecified N39.0 [place] [address] [address] Jan, Acute gastritis without hemorrhage, unspecified gastritis type K29.00 [place] [address] [place] [id number] [place] [address] 30 Dec, 2016 Pain in right leg M79.604 [place] [address] [address] 28 Dec, 2016 Hyperinsulinemia E16.1 and Pain in right leg M79.604 [place] [address] [address] Dec, Angioedema, initial encounter T78.3XXA [place] [address] [address] 15 Dec, 2016 Dental examination Z01.20 [place] [address] [address] 13 Dec, 2016 [place] [address] [address] Dec, Burning with urination R30.0 and Acute cystitis with hematuria N30.01 [place] [address] [address] Oct, [place] [address] [address] Sep, [place] [address] [address] Aug, Hyperinsulinemia E16.1 [place] [address] [address] Aug, [place] [address] [address] Jul, [place] [address] [address] Jul, Chondromalacia, left knee M94.262 and Acute lateral meniscus tear of left knee, initial encounter S83.282A [place] [address] [address] Jul, [facility] [address] [place] [id number] [place] [address] Jun, Hyperinsulinemia E16.1 [facility] [address] [place] [id number] [place] [address] Jun, Dysuria R30.0 ; Back pain M54.9 ; Acute pain of left knee M25.562 and Hyperinsulinemia E16.1 [facility] [address] [place] [id number] [place] [address] 14 Jun, 2016 Acute non-recurrent maxillary sinusitis J01.00 [facility] [address] [place] [id number] [place] [address] Jun, Dysuria R30.0 [facility] [address] [place] [id number] [place] [address] Jun, Dysuria R30.0 [facility] [address] [place] [id number] [place] [address] Jun, [facility] [address] [place] [id number] [place] [address] May, Dysuria R30.0 and Acute cystitis with hematuria N30.01 [facility] [address] [place] [id number] [place] [address] May, Hyperinsulinemia E16.1 [facility] [address] [place] [id number] [place] [address] May, [facility] [address] [place] [id number] [place] [address] May, Sore throat J02.9 [facility] [address] [address] May, [facility] [address] [place] [id number] [place] [address] 08 Mar, 2016 Hyperinsulinemia E16.1 [facility] [address] [place] [id number] [place] [address] Jan, Hyperinsulinemia E16.1 [facility] [address] [place] [id number] [place] [address] Dec, DM neuro manif type II E11.49 [facility] [address] [place] [id number] [place] [address] November, Hyperinsulinemia E16.1 and Hypertension I10 [facility] [address] [address] Oct, [facility] [address] [address] Oct, Hyperinsulinemia E16.1 [facility] [address] [address] Oct, Pain, unspecified R52 [facility] [address] [address] Oct, Pain in right foot M79.671 and Hyperinsulinemia E16.1 [facility] [address] [place] [id number] [place] [address] Oct, Hyperinsulinemia E16.1 [facility] [address] [address] Oct, Hyperinsulinemia E16.1 [facility] [address] [place] [id number] [place] [address] 17 Aug, 2015 Hypertension I10 and Viral illness B34.9 [facility] [address] [place] [id number] [place] [address] May, Back pain M54.9 [facility] [address] [place] [id number] [place] [address] 14 Oct, 2014 [facility] [address] [address] Oct, [facility] [address] [place] [id number] [place] [address] 30 Sep, 2014 [facility] [place] [facility] [address] [id number] [place] [address] 30 Sep, 2014 [facility] [place] [facility] [address] [id number] [place] [address] Sep, 2014 [facility] [place] [facility] [address] [id number] [place] [address] Sep, 2014 [facility] [place] [facility] [address] [id number] [place] [address] Sep, 2014 [facility] [place] [facility] [address] [id number] [place] [address] Sep, 2014 [facility] [place] [facility] [address] [id number] [place] [address] Sep, 2014 [facility] [place] [facility] [address] [id number] [place] [address] Sep, 2014 [facility] [place] [facility] [address] [id number] [place] [address] Sep, 2014 [facility] [place] [facility] [address] [id number] [place] [address] Sep, 2014 [facility] [place] [facility] [address] [id number] [place] [address] Sep, 2014 [facility] [place] [facility] [address] [id number] [place] [address] Sep, 2014 [facility] [place] [facility] [address] [id number] [place] [address] Mar, [facility] [place] [facility] [address] [id number] [place] [address] Mar, [facility] [place] [facility] [address] [id number] [place] [address] Feb, [facility] [place] [facility] [address] [id number] [place] [address] Feb, [facility] [place] [facility] [address] [id number] [place] [address] Feb, [facility] [place] [facility] [address] [id number] [place] [address] Feb, [facility] [place] [facility] [address] [id number] [place] [address] Dec, [facility] [place] [facility] [address] [id number] [place] [address] Dec, [facility] [place] [facility] [address] [id number] [place] [address] Dec, [facility] [place] [facility] [address] [id number] [place] [address] Dec, [facility] [place] [facility] [address] [id number] [place] [address] Dec, [facility] [place] [facility] [address] [id number] [place] [address] Dec, [facility] [place] [facility] [address] [id number] [place] [address] Dec, [facility] [place] [facility] [address] [id number] [place] [address] Sep, [facility] [place] [facility] [address] [id number] [place] [address] Sep, [facility] [place] [facility] [address] [id number] [place] [address] Sep, [facility] [place] [facility] [address] [id number] [place] [address] Sep, [facility] [place] [facility] [address] [id number] [place] [address] Sep, [facility] [place] [facility] [address] [id number] [place] [address] Sep, [facility] [place] [facility] [address] [id number] [place] [address] Sep, [facility] [place] [facility] [address] [id number], [place] [address] Sep, [facility] [address] [id number] [place] [address] Jul, [facility] [place] [facility] [address] [id number] [place] [address] Jul, [facility] [place] [facility] [address] [id number] [place] [address] Jun, [facility] [place] [facility] [address] [id number] [place] [address] Jun, [facility] [place] [facility] [address] [id number] [place] [address] May, [facility] [place] [facility] [address] [id number] [place] [address] May, [facility] [place] [facility] [address] [id number], [place] [address] May, [facility] [place] [facility] [address] [id number], [place] [address] May, [facility] [place] [facility] [address] [id number] [place] [address] May, [facility] [place] [facility] [address] [facility] [id number], [place] [address] May, [facility] [place] [facility] [address] [id number], [place] [address] 05 May, 2013 [facility] [place] [facility] [address] [id number], [place] [address] Apr, [facility] [place] [facility] [address] [id number], [place] [address] Apr, [facility] [place] [facility] [address] [facility] [id number], [place] [address] Apr, [facility] [place] [facility] [address] [facility] [id number], [place] [address] Apr, [facility] [place] [facility] [address] [id number] [place] [address] Apr, [facility] [address] [id number] [place] [address] Apr, [facility] [place] [facility] [address] [id number] [place] [address] Mar, [facility] [place] [facility] [address] [id number] [place] [address] Feb, [facility] [place] [facility] [address] [id number] [place] [address] Jan, [facility] [place] [facility] [address] [id number] [place] [address] Jan, [facility] [place] [facility] [address] [id number] [place] [address] Jan, [facility] [place] [facility] [address] [id number] [place] [address] Dec, [facility] [address] [id number] [place] [address] November, [facility] [place] [facility] [address] [id number] [place] [address] November, [facility] [place] [facility] [address] [id number] [place] [address] November, [facility] [place] [facility] [address] [id number] [place] [address] November, [facility] [place] [facility] [address] [id number] [place] [address] Oct, [facility] [place] [facility] [address] [id number] [place] [address] Aug, [facility] [place] [facility] [address] [id number] [place] [address] Aug, [facility] [place] [facility] [address] [id number] [place] [address] Aug, [facility] [place] [facility] [address] [id number] [place] [address] Aug, [facility] [place] [facility] [address] [id number] [place] [address] Aug, [facility] [place] [facility] [address] [facility] [id number] [place] [address] Aug, [facility] [place] [facility] [address] [id number] [place] [address] Jul, [facility] [place] [facility] [address] [facility] [id number] [place] [address] May, [facility] [place] [facility] [address] [facility] [id number] [place] [address] May, [facility] [place] [facility] [address] [facility] [id number] [place] [address] May, [facility] [place] [facility] [address] [facility] [id number] [place] [address] May, [facility] [place] [facility] [address] [facility] [id number] [place] [address] May, [facility] [place] [facility] [address] [facility] [id number] [place] [address] May, [facility] [place] [facility] [address] [facility] [id number], [place] [address] May, [facility] [place] [facility] [address] [facility] [id number], [place] [address] Apr, [facility] [place] [facility] [address] [facility] [id number] [place] [address] Apr, [facility] [place] [facility] [address] [facility] [id number] [place] [address] Apr, [facility] [place] [facility] [address] [facility] [id number] [place] [address] Apr, [facility] [place] [facility] [address] [id number] [place] [address] 30 Apr, 2012 [facility] [place] [facility] [address] [id number] [place] [address] Sep, [facility] [place] [facility] [address] [id number] [place] [address] 24 Aug, 2011 [facility] [place] [facility] [address] [id number] [place] [address] 16 Aug, 2011 [facility] [place] [facility] [address] [id number] [place] [address] Aug, [facility] [place] [facility] [address] [id number] [place] [address] Aug, [facility] [place] [facility] [address] [id number] [place] [address] Aug, [facility] [place] [facility] [address] [id number] [place] [address] Jul, [facility] [place] [facility] [address] [id number] [place] [address] Jul, [facility] [place] [facility] [address] [facility] [id number] [place] [address] Jul, [facility] [place] [facility] [address] [facility] [id number] [place] [address] Jun, [facility] [place] [facility] [address] [id number] [place] [address] Jun, [facility] [place] [facility] [address] [id number] [place] [address] Jun, [facility] [place] [facility] [address] [id number] [place] [address] May, [facility] [place] [facility] [address] [id number] [place] [address] 15 Apr, 2011 [facility] [place] [facility] [address] [id number] [place] [address] Apr, [facility] [address] [facility] [id number] [place] [address] Apr, [facility] [address] [facility] [id number] [place] [address] Apr, IMMUNIZATIONS No Known Immunizations SOCIAL HISTORY Never Assessed REASON FOR VISIT FYI PLAN OF CARE VITAL SIGNS MEDICATIONS Unknown [...]
--- OUTSIDE RECORDS SUMMARY | 2018-12-07 23:12 | XMS REPORT ---
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 Name Role Phone BAUDILIO LANDA Unavailable PROBLEMS Type Condition ICD9-CM Code TUU59-GB Code Onset Dates Condition Status SNOMED Code Problem Hyperinsulinemia E16.1 Active 11981085 Problem Tension headache G44.209 Active 191306103 Problem DM neuro manif type II E11.49 Active 25929601 Problem Iron deficiency anemia due to chronic blood loss D50.0 Active 654835813 Problem Menorrhagia with irregular cycle N92.1 Active 593114470 Problem Essential hypertension I10 Active 78967734 Problem Intractable migraine without aura and without status migrainosus G43.019 Active 829908474 Problem Sleep apnea in adult G47.30 Active 46017588 Problem Irritable bowel syndrome with diarrhea K58.0 Active 793059984 ALLERGIES Substance Reaction Event Type Date Status Codeine hives Drug Allergy Oct, Active liquid codeine/ pt. can tolerate drugs like hydroco Unknown Non Drug Allergy Oct, Active Red Onion hives Non Drug Allergy Oct, Active Chlorthalidone 25 Mg Tablet hives Non Drug Allergy Oct, Active Hydrochlorothiazide 25 Mg Tablet hives Non Drug Allergy Oct, Active ENCOUNTERS Encounter Location Date Diagnosis [place] [id number] [id number] [address] Jan, Pneumonia of left lung due to infectious organism, unspecified part of lung J18.9 [place] [id number] [address] Dec, Pneumonia due to Mycoplasma pneumoniae, unspecified laterality, unspecified part of lung J15.7 and BMI 50.0-59.9, adult Z68.43 [place] [id number] [place] [address] Dec, [place] [address] [id number] [place] [address] Dec, Bronchitis J40 and BMI 50.0-59.9, adult Z68.43 [place] [id number] [place] [address] November, Bronchitis J40 ; LLQ pain R10.32 and BMI 50.0-59.9, adult Z68.43 [place] [id number] [place] [address] November, Iron deficiency anemia due to chronic blood loss D50.0 [place] [id number] [place] [address] November, [place] [id number] [place] [address] November, Iron deficiency anemia due to chronic blood loss D50.0 ; DM neuro manif type II E11.49 ; Menorrhagia with irregular cycle N92.1 and BMI 50.0- 59.9, adult Z68.43 [facility] [place] [id number] [place] [address] Oct, Sore throat J02.9 and Acute nasopharyngitis J00 [facility] [place] [id number] [place] [address] Oct, Left leg pain M79.605 and BMI 50.0-59.9, adult Z68.43 [facility] [id number] [place] [address] Sep, Upper respiratory tract infection, unspecified type J06.9 and BMI 50.0-59.9, adult Z68.43 [place] [id number] [place] [address] Sep, Menorrhagia with irregular cycle N92.1 ; Sleep apnea in adult G47.30 and BMI 50.0-59.9, adult Z68.43 [place] [address] [id number] [place] [address] Sep, [facility] [address] [address] Aug, [facility] [address] [address] Aug, [place] [address] [address] Aug, [place] [address] [address] Aug, LLQ pain R10.32 ; Irritable bowel syndrome with diarrhea K58.0 ; Change in bowel habits R19.4 ; Essential hypertension I10 and BMI 50.0-59.9, adult Z68.43 [place] [address] [address] Aug, [place] [id number] [place] [address] Aug, [facility] [address] [address] Aug, Essential hypertension I10 and BMI 50.0-59.9, adult Z68.43 [place] [address] [address] Aug, [facility] [id number] [place] [address] Aug, [facility] [address] [address] Aug, Allergic disorder, initial encounter T78.40XA and BMI 50.0-59.9, adult Z68.43 [facility] [address] [id number] [place] [address] Jul, Other atopic dermatitis L20.89 and BMI 50.0-59.9, adult Z68.43 [facility] [address] [address] Jul, Intractable migraine without aura and without status migrainosus G43.019 and BMI 50.0-59.9, adult Z68.43 [facility] [address] [address] Jun, DM neuro manif type II E11.49 ; Tension headache G44.209 ; Breast cancer screening Z12.31 and BMI 50.0-59.9, adult Z68.43 [place] [address] [address] Jun, Tension headache G44.209 ; Breast cancer screening Z12.31 ; BMI 50.0- 59.9, adult Z68.43 and DM neuro manif type II E11.49 [facility] [address] [address] Apr, Dysuria R30.0 and Acute cystitis with hematuria N30.01 [place] [address] [address] Apr, Hyperinsulinemia E16.1 [place] [address] [address] Mar, Acute non-recurrent maxillary sinusitis J01.00 [place] [address] [address] Feb, Cellulitis of unspecified part of limb L03.119 ; Spider bite wound, accidental or unintentional, subsequent encounter T63.301D and BMI 50.0-59.9, adult Z68.43 [facility] [address] [address] Jan, [facility] [address] [address] Jan, Urinary tract infection, site unspecified N39.0 [place] [address] [place] [id number] [place] [address] Jan, Acute gastritis without hemorrhage, unspecified gastritis type K29.00 [place] [address] [address] 30 Dec, 2016 Pain in right leg M79.604 [place] [address] [address] Dec, Hyperinsulinemia E16.1 and Pain in right leg M79.604 [place] [address] [address] Dec, Angioedema, initial encounter T78.3XXA [place] [address] [address] 15 Dec, 2016 Dental examination Z01.20 [place] [address] [address] Dec, [place] [address] [address] Dec, Burning with urination R30.0 and Acute cystitis with hematuria N30.01 [place] [address] [address] Oct, [place] [address] [address] Sep, [place] [address] [address] Aug, Hyperinsulinemia E16.1 [place] [address] [address] Aug, [place] [address] [address] Jul, [place] [address] [address] Jul, Chondromalacia, left knee M94.262 and Acute lateral meniscus tear of left knee, initial encounter S83.282A [facility] [address] [address] Jul, [facility] [address] [place] [address] [address] Jun, Hyperinsulinemia E16.1 [facility] [address] [place] [address] [address] Jun, Dysuria R30.0 ; Back pain M54.9 ; Acute pain of left knee M25.562 and Hyperinsulinemia E16.1 [facility] [address] [address] Jun, Acute non-recurrent maxillary sinusitis J01.00 [facility] [address] [address] Jun, Dysuria R30.0 [facility] [address] [address] Jun, Dysuria R30.0 [facility] [address] [address] Jun, [facility] [address] [address] May, Dysuria R30.0 and Acute cystitis with hematuria N30.01 [facility] [address] [address] May, Hyperinsulinemia E16.1 [facility] [id number] [place] [address] May, [facility] [address] [address] May, Sore throat J02.9 [facility] [address] [address] May, [facility] [address] [address] 08 Mar, 2016 Hyperinsulinemia E16.1 [facility] [address] [address] Jan, Hyperinsulinemia E16.1 [facility] [address] [address] Dec, DM neuro manif type II E11.49 [facility] [address] [address] November, Hyperinsulinemia E16.1 and Hypertension I10 [facility] [address] [address] Oct, [facility] [address] [address] Oct, Hyperinsulinemia E16.1 [facility] [address] [address] Oct, Pain, unspecified R52 [facility] [address] [address] Oct, Pain in right foot M79.671 and Hyperinsulinemia E16.1 [facility] [address] [address] Oct, Hyperinsulinemia E16.1 [facility] [address] [address] Oct, Hyperinsulinemia E16.1 [facility] [address] [address] 17 Aug, 2015 Hypertension I10 and Viral illness B34.9 [facility] [address] [address] 18 May, 2015 Back pain M54.9 [facility] [address] [address] 14 Oct, 2014 [facility] [address] [address] Oct, [facility] [place] [facility] [address] [id number] [place] [address] Sep, [facility] [place] [facility] [address] [id number] [place] [address] Sep, [facility] [place] [facility] [address] [id number] [place] [address] Sep, [facility] [place] [facility] [address] [id number] [place] [address] Sep, [facility] [place] [facility] [address] [id number] [place] [address] Sep, [facility] [place] [facility] [address] [id number] [place] [address] Sep, [facility] [place] [facility] [address] [id number] [place] [address] Sep, [facility] [place] [facility] [address] [id number] [place] [address] Sep, [facility] [place] [facility] [address] [id number] [place] [address] Sep, [facility] [place] [facility] [address] [id number] [place] [address] Sep, [facility] [place] [facility] [address] [id number] [place] [address] Sep, [facility] [place] [facility] [address] [id number] [place] [address] Sep, [facility] [place] [facility] [address] [id number] [place] [address] Mar, [facility] [place] [facility] [address] [id number] [place] [address] Mar, [facility] [place] [facility] [address] [id number] [place] [address] Feb, [facility] [place] [facility] [address] [id number] [place] [address] Feb, [facility] [place] [facility] [address] [id number] [place] [address] Feb, [facility] [place] [facility] [address] [id number] [place] [address] Feb, [facility] [place] [facility] [address] [id number] [place] [address] Dec, [facility] [place] [facility] [address] [id number] [place] [address] Dec, [facility] [place] [facility] [address] [id number] [place] [address] Dec, [facility] [place] [facility] [address] [id number] [place] [address] Dec, [facility] [place] [facility] [address] [id number] [place] [address] Dec, [facility] [place] [facility] [address] [id number] [place] [address] Dec, [facility] [place] [facility] [address] [id number] [place] [address] Dec, [facility] [place] [facility] [address] [id number] [place] [address] Sep, [facility] [place] [facility] [address] [id number] [place] [address] Sep, [facility] [place] [facility] [address] [id number] [place] [address] Sep, [facility] [place] [facility] [address] [id number] [place] [address] Sep, [facility] [place] [facility] [address] [id number] [place] [address] Sep, [facility] [place] [facility] [address] [id number] [place] [address] Sep, [facility] [place] [facility] [address] [id number] [place] [address] Sep, [facility] [place] [facility] [address] [id number] [place] [address] Sep, [facility] [place] [facility] [address] [id number] [place] [address] Jul, [facility] [place] [facility] [address] [id number] [place] [address] Jul, [facility] [place] [facility] [address] [id number] [place] [address] Jun, [facility] [place] [facility] [address] [id number] [place] [address] Jun, [facility] [place] [facility] [address] [id number] [place] [address] May, [facility] [place] [facility] [address] [id number] [place] [address] May, [facility] [place] [facility] [address] [id number] [place] [address] May, [facility] [place] [facility] [address] [id number] [place] [address] May, [facility] [place] [facility] [address] [id number] [place] [address] May, [facility] [place] [facility] [address] [id number] [place] [address] May, [facility] [place] [facility] [address] [id number] [place] [address] May, [facility] [place] [facility] [address] [id number] [place] [address] Apr, [facility] [place] [facility] [address] [id number] [place] [address] Apr, [facility] [place] [facility] [address] [id number] [place] [address] Apr, [facility] [address] [id number] [place] [address] Apr, [facility] [place] [facility] [address] [id number] [place] [address] Apr, [facility] [place] [facility] [address] [id number] [place] [address] Apr, [facility] [place] [facility] [address] [id number] [place] [address] Mar, [facility] [place] [facility] [address] [id number] [place] [address] Feb, [facility] [place] [facility] [address] [id number] [place] [address] Jan, [facility] [place] [facility] [address] [id number] [place] [address] Jan, [facility] [place] [facility] [address] [id number] [address] Jan, [facility] [place] [facility] [address] [id number] [place] [address] Dec, [facility] [place] [facility] [address] [id number] [place] [address] November, [facility] [place] [facility] [address] [id number] [address] November, [facility] [place] [facility] [address] [id number] [address] November, [facility] [place] [facility] [address] [id number] [place] [address] November, [facility] [place] [facility] [address] [id number] [address] Oct, [facility] [place] [facility] [address] [id number] [place] [address] Aug, [facility] [place] [facility] [address] [id number] [place] [address] Aug, 2012 [facility] [place] [facility] [address] [id number] [place] [address] Aug, 2012 [facility] [place] [facility] [address] [id number] [place] [address] Aug, 2012 [facility] [place] [facility] [address] [id number] [place] [address] Aug, 2012 [facility] [place] [facility] [address] [id number] [place] [address] Aug, [facility] [place] [facility] [address] [id number] [place] [address] Jul, [facility] [place] [facility] [address] [facility] [id number] [place] [address] May, [facility] [place] [facility] [address] [id number] [place] [address] May, [facility] [place] [facility] [address] [id number] [place] [address] May, [facility] [place] [facility] [address] [facility] [id number] [place] [address] May, [facility] [place] [facility] [address] [facility] [id number] [place] [address] May, [facility] [place] [facility] [address] [facility] [id number] [place] [address] May, [facility] [place] [facility] [address] [id number] [place] [address] May, [facility] [place] [facility] [address] [facility] [id number] [place] [address] Apr, [facility] [place] [facility] [address] [id number] [place] [address] Apr, [facility] [place] [facility] [address] [facility] [id number] [place] [address] Apr, [facility] [place] [facility] [address] [id number] [place] [address] Apr, [facility] [place] [facility] [address] [id number] [place] [address] Apr, [facility] [place] [facility] [address] [id number] [place] [address] Sep, [facility] [place] [facility] [address] [id number] [place] [address] Aug, [facility] [place] [facility] [address] [id number] [place] [address] Aug, [facility] [place] [facility] [address] [id number] [place] [address] Aug, [facility] [place] [facility] [address] [id number] [place] [address] Aug, [facility] [place] [facility] [address] [id number] [place] [address] Aug, [facility] [place] [facility] [address] [id number] [place] [address] Jul, [facility] [place] [facility] [address] [id number] [place] [address] Jul, [facility] [place] [facility] [address] [id number] [place] [address] Jul, [facility] [place] [facility] [address] [id number] [place] [address] Jun, [facility] [place] [facility] [address] [id number] [place] [address] Jun, [facility] [place] [facility] [address] [id number] [place] [address] Jun, [facility] [place] [facility] [address] [id number] [place] [address] May, [facility] [place] [facility] [address] [facility] [id number] [place] [address] Apr, [facility] [address] [facility] [id number] [place] [address] Apr, [facility] [address] [facility] [id number] [place] [address] Apr, [facility] [address] [facility] [id number] [place] [address] Apr, IMMUNIZATIONS No Known Immunizations SOCIAL HISTORY Never Assessed REASON FOR VISIT sore throat, denies cough, right earache. been sick for 2 days. kbullardrn PLAN OF CARE Activity Details Follow Up prn Reason: VITAL SIGNS Height 69 in 2017-11-13 Weight 355.0 lbs 2017-11-13 Temperature 99.3 degrees Fahrenheit 2017-11-13 Heart Rate 88 bpm 2017-11-13 Respiratory Rate 22 2017-11-13 BMI 52.42 kg/m2 2017-11-13 Blood pressure systolic 126 mmHg 2017-11-13 Blood pressure diastolic 80 mmHg 2017-11-13 MEDICATIONS Medication Instructions Dosage Frequency Start Date End Date Duration Status HydrOXYzine HCl 25 MG Orally every 6 hrs 1 tablet as needed 6h Dec, 0 days Active Trulicity 1.5 MG/0.5ML Subcutaneous once weekly inject 0.5 ml Oct, 90 days Active Mobic 7.5 MG Orally Once a day as needed for lega=pain 1-2tablet Dec, 90 days Active Flonase 50 MCG/ACT Nasally Once a day 1 spray in each nostril 24h Active Propranolol HCl 10 MG TAKE ONE TABLET BY MOUTH TWICE DAILY 30 Active Losartan Potassium 50 mg Orally Once a day 1 tablet 24h Aug, 30 day(s) Active Imitrex 50 MG Orally Twice a day 1 tablet as needed 12h 30 Active Diltiazem HCl ER Beads 240 MG TAKE ONE CAPSULE BY MOUTH DAILY 30 Active Pepcid 20 MG Orally Once a day 1 tablet 24h Active Zyrtec Allergy 10 MG Orally Once [...] 24h 20 Jun, 2017 1 day(s) Not-Taking Triamcinolone Acetonide 0.1 % Externally Twice a day 1 application to affected area 12h Jul, 14 days Active Protonix 40 MG Orally Once a day 1 tablet 24h 27 Aug, 2017 30 days Active RESULTS Name Result Date Reference Range STREP A (IN HOUSE) 2017-11-13 STREP A negative Control + Lot # [id number] Exp date 2019 10 10 PROCEDURES Procedure Date Ordered Result Body Site STREP A ASSAY W/OPTIC November 13, 2017 INSTRUCTIONS MEDICATIONS ADMINISTERED No Known Medications MEDICAL (GENERAL) HISTORY Type Description Date Medical History hypertension Medical History Sleep apnea in adult Surgical History x 3 Surgical History cholecystectomy Surgical History Chemical Stress Test, EKG, Echo 05/2016 Hospitalization History surgeries Hospitalization History UTI VC 05/2016
--- OUTSIDE RECORDS SUMMARY | 2018-12-07 23:12 | XMS REPORT ---
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30 Active 20966884 Problem Irritable bowel syndrome with diarrhea K58.0 Active 939221687 ALLERGIES Substance Reaction Event Type Date Status Codeine hives Drug Allergy Oct, Active liquid codeine/ pt. can tolerate drugs like hydroco Unknown Non Drug Allergy Oct, Active Red Onion hives Non Drug Allergy Oct, Active Chlorthalidone 25 Mg Tablet hives Non Drug Allergy Oct, Active Hydrochlorothiazide 25 Mg Tablet hives Non Drug Allergy Oct, Active ENCOUNTERS Encounter Location Date Diagnosis [place] [id number] [id number], [place] [address] Jan, Pneumonia of left lung due to infectious organism, unspecified part of lung J18.9 [facility] [address], [place] [address] Dec, Pneumonia due to Mycoplasma pneumoniae, unspecified laterality, unspecified part of lung J15.7 and BMI 50.0-59.9, adult Z68.43 [facility] [address] [id number], [place] [address] Dec, [place] [id number] [place] [address] Dec, Bronchitis J40 and BMI 50.0-59.9, adult Z68.43 [place] [id number] [place] [address] November, Bronchitis J40 ; LLQ pain R10.32 and BMI 50.0-59.9, adult Z68.43 [place] [id number] [place] [address] November, Iron deficiency anemia due to chronic blood loss D50.0 [place] [address] [address] November, [place] [id number] [place] [address] November, Iron deficiency anemia due to chronic blood loss D50.0 ; DM neuro manif type II E11.49 ; Menorrhagia with irregular cycle N92.1 and BMI 50.0- 59.9, adult Z68.43 [facility] [place] [id number] [place] [address] Oct, Sore throat J02.9 and Acute nasopharyngitis J00 [facility] [place] [id number] [place] [address] Oct, Left leg pain M79.605 and BMI 50.0-59.9, adult Z68.43 [facility] WALK IN [facility] [id number] [place] [address] Sep, Upper respiratory tract infection, unspecified type J06.9 and BMI 50.0-59.9, adult Z68.43 [place] [id number] [place] [address] Sep, Menorrhagia with irregular cycle N92.1 ; Sleep apnea in adult G47.30 and BMI 50.0-59.9, adult Z68.43 [place] [id number] [place] [address] Sep, [place] [address] [address] Aug, [facility] [id number] [place] [address] Aug, [place] [address] [address] Aug, [place] [id number] [place] [address] Aug, LLQ pain R10.32 ; Irritable bowel syndrome with diarrhea K58.0 ; Change in bowel habits R19.4 ; Essential hypertension I10 and BMI 50.0-59.9, adult Z68.43 [place] [id number] [place] [address] Aug, [place] [id number] [place] [address] Aug, [facility] IN [facility] [id number] [place] [address] Aug, Essential hypertension I10 and BMI 50.0-59.9, adult Z68.43 [place] [id number] [place] [address] Aug, [place] [id number] [place] [address] Aug, [facility] IN [facility] [id number] [place] [address] 02 Aug, 2017 Allergic disorder, initial encounter T78.40XA and BMI 50.0-59.9, adult Z68.43 [facility] [id number] [place] [address] Jul, Other atopic dermatitis L20.89 and BMI 50.0-59.9, adult Z68.43 [facility] [id number] [place] [address] Jul, Intractable migraine without aura and without status migrainosus G43.019 and BMI 50.0-59.9, adult Z68.43 [facility] [id number] [place] [address] Jun, DM neuro manif type II E11.49 ; Tension headache G44.209 ; Breast cancer screening Z12.31 and BMI 50.0-59.9, adult Z68.43 [place] [id number] [place] [address] Jun, Tension headache G44.209 ; Breast cancer screening Z12.31 ; BMI 50.0- 59.9, adult Z68.43 and DM neuro manif type II E11.49 [facility] [id number] [place] [address] Apr, Dysuria R30.0 and Acute cystitis with hematuria N30.01 [place] [address] [address] Apr, Hyperinsulinemia E16.1 [place] [address] [address] Mar, Acute non-recurrent maxillary sinusitis J01.00 [place] [id number] [place] [address] Feb, Cellulitis of unspecified part of limb L03.119 ; Spider bite wound, accidental or unintentional, subsequent encounter T63.301D and BMI 50.0-59.9, adult Z68.43 [facility] [id number] [place] [address] Jan, [place] [id number] [place] [address] Jan, Urinary tract infection, site unspecified N39.0 [place] [address] [address] Jan, Acute gastritis without hemorrhage, unspecified gastritis type K29.00 [place] [address] [address] 30 Dec, 2016 Pain in right leg M79.604 [place] [address] [address] Dec, Hyperinsulinemia E16.1 and Pain in right leg M79.604 [place] [address] [address] Dec, Angioedema, initial encounter T78.3XXA [place] [address] [address] 15 Dec, 2016 Dental examination Z01.[address] [address] Dec, [place] [address] [address] Dec, Burning with urination R30.0 and Acute cystitis with hematuria N30.01 [place] [address] [address] Oct, [place] [address] [address] Sep, [place] [address] [address] Aug, Hyperinsulinemia E16.1 [place] [address] [address] Aug, [place] [address] [address] Jul, [place] [address] [address] Jul, Chondromalacia, left knee M94.262 and Acute lateral meniscus tear of left knee, initial encounter S83.282A [facility] [id number] [place] [address] Jul, [facility] [id number] [place] [address] Jun, Hyperinsulinemia E16.1 [facility] [id number] [place] [address] Jun, Dysuria R30.0 ; Back pain M54.9 ; Acute pain of left knee M25.562 and Hyperinsulinemia E16.1 [facility] [id number] [place] [address] Jun, Acute non-recurrent maxillary sinusitis J01.00 [facility] [id number] [place] [address] Jun, Dysuria R30.0 [facility] [id number] [place] [address] Jun, Dysuria R30.0 [facility] [id number] [place] [address] Jun, [facility] [id number] [place] [address] May, Dysuria R30.0 and Acute cystitis with hematuria N30.01 [facility] [id number] [place] [address] May, Hyperinsulinemia E16.1 [facility] [id number] [place] [address] May, [facility] [id number] [place] [address] May, Sore throat J02.9 [facility] [id number] [place] [address] May, [facility] [id number] [place] [address] 08 Mar, 2016 Hyperinsulinemia E16.1 [facility] [address] [address] Jan, Hyperinsulinemia E16.1 [facility] [address] [address] Dec, DM neuro manif type II E11.49 [facility] [address] [address] November, Hyperinsulinemia E16.1 and Hypertension I10 [facility] [address] [address] Oct, [facility] [address] [address] Oct, Hyperinsulinemia E16.1 [facility] [address] [address] Oct, Pain, unspecified R52 [facility] [address] [address] 14 Oct, 2015 Pain in right foot M79.671 and Hyperinsulinemia E16.1 [facility] [address] [address] Oct, Hyperinsulinemia E16.1 [facility] [address] [address] Oct, Hyperinsulinemia E16.1 [facility] [address] [address] Aug, Hypertension I10 and Viral illness B34.9 [facility] [address] [address] May, Back pain M54.9 [facility] [address] [address] 14 Oct, 2014 [facility] [address] [address] 13 Oct, 2014 [facility] [place] [facility] [address] [id number] [place] [address] Sep, [facility] [place] [facility] [address] [id number] [place] [address] Sep, [facility] [place] [facility] [address] [id number] [place] [address] Sep, [facility] [place] [facility] [address] [id number] [place] [address] Sep, [facility] [place] [facility] [address] [id number] [place] [address] Sep, [facility] [place] [facility] [address] [id number] [place] [address] Sep, [facility] [place] [facility] [address] [id number] [place] [address] Sep, [facility] [place] [facility] [address] [id number] [place] [address] Sep, [facility] [place] [facility] [address] [id number] [place] [address] Sep, [facility] [place] [facility] [address] [id number] [place] [address] Sep, [facility] [place] [facility] [address] [id number] [place] [address] Sep, [facility] [place] [facility] [address] [id number] [place] [address] Sep, [facility] [place] [facility] [address] [id number] [place] [address] Mar, [facility] [place] [facility] [address] [id number] [place] [address] Mar, [facility] [place] [facility] [address] [id number] [place] [address] Feb, [facility] [place] [facility] [address] [id number] [place] [address] Feb, [facility] [place] [facility] [address] [id number] [place] [address] Feb, [facility] [place] [facility] [address] [id number] [place] [address] Feb, [facility] [place] [facility] [address] [id number] [place] [address] Dec, [facility] [place] [facility] [address] [id number] [place] [address] Dec, [facility] [place] [facility] [address] [id number] [place] [address] Dec, [facility] [place] [facility] [address] [id number] [place] [address] Dec, [facility] [place] [facility] [address] [id number] [place] [address] Dec, [facility] [place] [facility] [address] [id number] [place] [address] Dec, [facility] [place] [facility] [address] [id number] [place] [address] Dec, [facility] [place] [facility] [address] [id number] [place] [address] Sep, [facility] [place] [facility] [address] [id number] [place] [address] Sep, [facility] [place] [facility] [address] [id number] [place] [address] Sep, [facility] [place] [facility] [address] [id number] [place] [address] Sep, [facility] [place] [facility] [address] [id number] [place] [address] Sep, [facility] [place] [facility] [address] [id number] [place] [address] Sep, [facility] [place] [facility] [address] [id number] [place] [address] Sep, [facility] [address] [id number] [place] [address] Sep, [facility] [place] [facility] [address] [id number] [place] [address] Jul, [facility] [address] [id number] [place] [address] Jul, [facility] [address] [id number] [place] [address] Jun, [facility] [address] [id number] [place] [address] Jun, [facility] [address] [facility] [id number] [place] [address] May, [facility] [address] [id number] [place] [address] May, [facility] [address] [id number] [place] [address] May, [facility] [place] [facility] [address] [facility] [id number] [place] [address] May, [facility] [address] [facility] [id number] [place] [address] May, [facility] [place] [facility] [address] [id number] [place] [address] May, [facility] [place] [facility] [address] [id number] [place] [address] 05 May, 2013 [facility] [place] [facility] [address] [id number] [place] [address] Apr, [facility] [place] [facility] [address] [facility] [id number] [place] [address] Apr, [facility] [place] [facility] [address] [id number] [place] [address] Apr, [facility] [address] [id number] [place] [address] Apr, [facility] [place] [facility] [address] [id number] [place] [address] Apr, [facility] [place] [facility] [address] [id number] [place] [address] Apr, [facility] [place] [facility] [address] [id number] [place] [address] Mar, [facility] [place] [facility] [address] [id number] [place] [address] Feb, [facility] [place] [facility] [address] [id number] [place] [address] Jan, [facility] [place] [facility] [address] [id number] [place] [address] Jan, [facility] [place] [facility] [address] [id number], [place] [address] Jan, [facility] [place] [facility] [address] [id number] [place] [address] Dec, [facility] [place] [facility] [address] [id number], [place] [address] November, [facility] [place] [facility] [address] [id number], [place] [address] November, [facility] [place] [facility] [address] [id number], [place] [address] November, [facility] [place] [facility] [address] [id number] [place] [address] November, [facility] [place] [facility] [address] [id number], [place] [address] Oct, [facility] [place] [facility] [address] [id number], [place] [address] Aug, [facility] [place] [facility] [address] [id number], [place] [address] Aug, [facility] [place] [facility] [address] [id number] [place] [address] Aug, [facility] [place] [facility] [address] [id number] [place] [address] Aug, [facility] [place] [facility] [address] [id number] [place] [address] Aug, [facility] [place] [facility] [address] [id number] [place] [address] Aug, [facility] [place] [facility] [address] [id number] [place] [address] Jul, [facility] [place] [facility] [address] [id number] [place] [address] May, [facility] [place] [facility] [address] [facility] [id number] [place] [address] May, [facility] [place] [facility] [address] [id number] [place] [address] May, [facility] [place] [facility] [address] [facility] [id number] [place] [address] May, [facility] [place] [facility] [address] [facility] [id number] [place] [address] May, [facility] [place] [facility] [address] [id number] [place] [address] May, [facility] [place] [facility] [address] [id number] [place] [address] May, [facility] [place] [facility] [address] [id number] [place] [address] Apr, [facility] [place] [facility] [address] [id number] [place] [address] Apr, [facility] [place] [facility] [address] [id number] [place] [address] Apr, [facility] [place] [facility] [address] [id number] [place] [address] Apr, [facility] [place] [facility] [address] [id number] [place] [address] Apr, [facility] [place] [facility] [address] [id number] [place] [address] Sep, [facility] [place] [facility] [address] [id number] [place] [address] Aug, [facility] [place] [facility] [address] [id number] [place] [address] Aug, [facility] [place] [facility] [address] [id number] [place] [address] Aug, [facility] [place] [facility] [address] [id number] [place] [address] Aug, [facility] [place] [facility] [address] [id number] [place] [address] Aug, [facility] [place] [facility] [address] [id number] [place] [address] Jul, [facility] [place] [facility] [address] [id number] [place] [address] Jul, [facility] [place] [facility] [address] [id number] [place] [address] Jul, [facility] [place] [facility] [address] [id number] [place] [address] Jun, [facility] [place] [facility] [address] [id number] [place] [address] Jun, [facility] [place] [facility] [address] [id number] [place] [address] Jun, [facility] [place] [facility] [address] [id number] [place] [address] May, [facility] [place] [facility] [address] [facility] [id number] [place] [address] Apr, [facility] [address] [facility] [id number], [place] [address] Apr, [facility] [address] [facility] [id number], [place] [address] Apr, [facility] [address] [facility] [id number], [place] [address] Apr, IMMUNIZATIONS No Known Immunizations SOCIAL HISTORY Never Assessed REASON FOR VISIT left leg pain started a couple days ago- feels like a poornima horse [employer] PLAN OF CARE Activity Details Follow Up prn Reason: VITAL SIGNS Height 69 in 2017-11-02 Weight 357.2 lbs 2017-11-02 Temperature 98.9 degrees Fahrenheit 2017-11-02 Heart Rate 86 bpm 2017-11-02 Respiratory Rate 22 2017-11-02 BMI 52.74 kg/m2 2017-11-02 Blood pressure systolic 130 mmHg 2017-11-02 Blood pressure diastolic 80 mmHg 2017-11-02 MEDICATIONS Medication Instructions Dosage Frequency Start Date End Date Duration Status Flonase 50 MCG/ACT Nasally Once a day 1 spray in each nostril 24h Active Diltiazem HCl ER Beads 240 MG TAKE ONE CAPSULE BY MOUTH DAILY 30 Active HydrOXYzine HCl 25 MG Orally every 6 hrs 1 tablet as needed 6h Dec, 0 days Active Mobic 7.5 MG Orally Once a day as needed for lega=pain 1-2tablet Dec, 90 days Active Spironolactone 25 MG TAKE ONE TABLET BY MOUTH ONCE DAILY 30 Active Metformin HCl 500 MG [...] 1 tablet 24h Aug, 30 day(s) Active Onzetra Xsail 11 MG/NOSEPC Nasally Once a day 1 spray in each nostril as needed one time 24h Jun, 1 day(s) Not-Taking Imitrex 50 MG Orally Twice a day 1 tablet as needed 12h 30 Active Protonix 40 MG Orally Once a day 1 tablet 24h 27 Aug, 2017 30 days Active Triamcinolone Acetonide 0.1 % Externally Twice a day 1 application to affected area 12h Jul, 14 days Active RESULTS Name Result Date Reference Range Ultrasound : Venous Doppler (DVT EVAL) 2017-11-02 PROCEDURES No Known procedures INSTRUCTIONS MEDICATIONS ADMINISTERED No Known Medications MEDICAL (GENERAL) HISTORY Type Description Date Medical History hypertension Medical History Sleep apnea in adult Surgical History x 3 Surgical History cholecystectomy Surgical History Chemical Stress Test, EKG, Echo 05/2016 Hospitalization History surgeries Hospitalization History UTI VC 05/2016
--- OUTSIDE RECORDS SUMMARY | 2018-12-07 23:13 | XMS REPORT ---
Author Author CARISA KHAN Organization 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 Active 37794265 Problem Tension headache G44.209 Active 476015988 Problem DM neuro manif type II E11.49 Active 23729013 Problem Iron deficiency anemia due to chronic blood loss D50.0 Active 293062045 Problem Menorrhagia with irregular cycle N92.1 Active 208324191 Problem Essential hypertension I10 Active 97140500 Problem Intractable migraine without aura and without status migrainosus G43.019 Active 130013549 Problem Sleep apnea in adult G47.30 Active 45237790 Problem Irritable bowel syndrome with diarrhea K58.0 Active 390203878 ALLERGIES Substance Reaction Event Type Date Status Codeine hives Drug Allergy Sep, Active liquid codeine/ pt. can tolerate drugs like hydroco Unknown Non Drug Allergy Sep, Active Red Onion hives Non Drug Allergy Sep, Active Chlorthalidone 25 Mg Tablet hives Non Drug Allergy Sep, Active Hydrochlorothiazide 25 Mg Tablet hives Non Drug Allergy Sep, Active ENCOUNTERS Encounter Location Date Diagnosis [place] [id number] [address] Jan, Pneumonia of left lung due to infectious organism, unspecified part of lung J18.9 [place] [id number] [place] [address] Dec, Pneumonia due to Mycoplasma pneumoniae, unspecified laterality, unspecified part of lung J15.7 and BMI 50.0-59.9, adult Z68.43 [place] [id number] [address] Dec, [place] [address] [place] [address] [id number] [place] [address] Dec, Bronchitis J40 and BMI 50.0-59.9, adult Z68.43 [place] [address] [id number] [place] [address] November, Bronchitis J40 ; LLQ pain R10.32 and BMI 50.0-59.9, adult Z68.43 [place] [address] [id number] [place] [address] November, Iron deficiency anemia due to chronic blood loss D50.0 [place] [address] [address] November, [place] [id number] [place] [address] November, Iron deficiency anemia due to chronic blood loss D50.0 ; DM neuro manif type II E11.49 ; Menorrhagia with irregular cycle N92.1 and BMI 50.0- 59.9, adult Z68.43 [facility] [place] [id number] [place] [address] Oct, Sore throat J02.9 and Acute nasopharyngitis J00 [facility] [place] [id number] [place] [address] Oct, Left leg pain M79.605 and BMI 50.0-59.9, adult Z68.43 [facility] [place] [id number] [place] [address] Sep, Upper respiratory tract infection, unspecified type J06.9 and BMI 50.0-59.9, adult Z68.43 [place] [id number] [place] [address] 08 Sep, 2017 Menorrhagia with irregular cycle N92.1 ; Sleep apnea in adult G47.30 and BMI 50.0-59.9, adult Z68.43 [place] [address] [place] [id number] [place] [address] Sep, [facility] [id number] [place] [address] Aug, [facility] [id number] [place] [address] Aug, [place] [address] [address] Aug, [place] [address] [place] [id number] [place] [address] Aug, LLQ pain R10.32 ; Irritable bowel syndrome with diarrhea K58.0 ; Change in bowel habits R19.4 ; Essential hypertension I10 and BMI 50.0-59.9, adult Z68.43 [place] [id number] [place] [address] Aug, [place] [id number] [place] [address] Aug, [facility] [address] [place] [id number] [place] [address] Aug, Essential hypertension I10 and BMI 50.0-59.9, adult Z68.43 [place] [id number] [place] [address] Aug, [facility] [id number] [place] [address] Aug, [facility] [id number] [place] [address] 02 Aug, 2017 Allergic disorder, initial encounter T78.40XA and BMI 50.0-59.9, adult Z68.43 [facility] [id number] [place] [address] Jul, Other atopic dermatitis L20.89 and BMI 50.0-59.9, adult Z68.43 [facility] [id number] [place] [address] Jul, Intractable migraine without aura and without status migrainosus G43.019 and BMI 50.0-59.9, adult Z68.43 [place] [id number] [place] [address] Jun, DM neuro manif type II E11.49 ; Tension headache G44.209 ; Breast cancer screening Z12.31 and BMI 50.0-59.9, adult Z68.43 [place] [address] [address] Jun, Tension headache G44.209 ; Breast cancer screening Z12.31 ; BMI 50.0- 59.9, adult Z68.43 and DM neuro manif type II E11.49 [facility] [id number] [place] [address] Apr, Dysuria R30.0 and Acute cystitis with hematuria N30.01 [place] [address] [address] Apr, Hyperinsulinemia E16.1 [place] [address] [address] Mar, Acute non-recurrent maxillary sinusitis J01.00 [place] [address] [address] Feb, Cellulitis of unspecified part of limb L03.119 ; Spider bite wound, accidental or unintentional, subsequent encounter T63.301D and BMI 50.0-59.9, adult Z68.43 [place] [address] [address] Jan, [place] [address] [address] Jan, Urinary tract infection, site unspecified N39.0 [place] [address] [id number] [place] [address] Jan, Acute gastritis without hemorrhage, unspecified gastritis type K29.00 [place] [address] [address] 30 Dec, 2016 Pain in right leg M79.604 [place] [address] [address] Dec, Hyperinsulinemia E16.1 and Pain in right leg M79.604 [place] [address] [address] Dec, Angioedema, initial encounter T78.3XXA [place] [address] [address] 15 Dec, 2016 Dental examination Z01.[address] [address] Dec, [place] [address] [address] Dec, Burning with urination R30.0 and Acute cystitis with hematuria N30.01 [place] [address] [address] Oct, [place] [address] [address] Sep, [place] [address] [address] Aug, Hyperinsulinemia E16.1 [place] [address] [address] Aug, [place] [address] [address] Jul, [place] [address] [address] Jul, Chondromalacia, left knee M94.262 and Acute lateral meniscus tear of left knee, initial encounter S83.282A [facility] [id number] [place] [address] Jul, [facility] [id number] [place] [address] Jun, Hyperinsulinemia E16.1 [facility] [id number] [place] [address] Jun, Dysuria R30.0 ; Back pain M54.9 ; Acute pain of left knee M25.[address] [facility] [id number] [place] [address] Jun, Acute non-recurrent maxillary sinusitis J01.00 [facility] [id number] [place] [address] Jun, Dysuria R30.0 [facility] [id number] [place] [address] Jun, Dysuria R30.0 [facility] [id number] [place] [address] Jun, [facility] [id number] [place] [address] May, Dysuria R30.0 and Acute cystitis with hematuria N30.01 [facility] [id number] [place] [address] May, Hyperinsulinemia E16.1 [facility] [id number] [place] [address] May, [facility] [address] [address] May, Sore throat J02.9 [facility] [id number] [place] [address] May, [facility] [address] [address] 08 Mar, [address] [facility] [id number] [place] [address] Jan, Hyperinsulinemia E16.1 [facility] [address] [address] Dec, DM neuro manif type II E11.49 [facility] [address] [address] November, Hyperinsulinemia E16.[address] [facility] [address] [address] Oct, [facility] [address] [address] Oct, Hyperinsulinemia E16.1 [facility] [address] [address] Oct, Pain, unspecified R52 [facility] [address] [address] 14 Oct, 2015 Pain in right foot M79.[address] [facility] [address] [address] Oct, Hyperinsulinemia E16.1 [facility] [address] [address] Oct, Hyperinsulinemia E16.1 [facility] [address] [address] 17 Aug, 2015 Hypertension I10 and Viral illness B34.9 [facility] [address] [address] May, Back pain M54.9 [facility] [address] [address] 14 Oct, 2014 [facility] [address] [address] 13 Oct, 2014 [facility] [place] [facility] [address] [id number] [place] [address] Sep, [facility] [place] [facility] [address] [id number] [place] [address] Sep, [facility] [place] [facility] [address] [id number] [place] [address] Sep, [facility] [place] [facility] [address] [id number] [place] [address] Sep, [facility] [place] [facility] [address] [id number] [place] [address] Sep, [facility] [place] [facility] [address] [id number] [place] [address] Sep, [facility] [place] [facility] [address] [id number] [place] [address] Sep, [facility] [place] [facility] [address] [id number] [place] [address] Sep, [facility] [place] [facility] [address] [id number] [place] [address] Sep, [facility] [place] [facility] [address] [id number] [place] [address] Sep, [facility] [place] [facility] [address] [id number] [place] [address] Sep, [facility] [place] [facility] [address] [id number] [place] [address] Sep, 2014 [facility] [place] [facility] [address] [id number] [place] [address] Mar, [facility] [place] [facility] [address] [id number] [place] [address] Mar, [facility] [place] [facility] [address] [id number] [place] [address] Feb, [facility] [place] [facility] [address] [id number] [place] [address] Feb, [facility] [place] [facility] [address] [id number] [place] [address] Feb, [facility] [place] [facility] [address] [id number] [place] [address] Feb, [facility] [place] [facility] [address] [id number] [place] [address] Dec, [facility] [place] [facility] [address] [id number] [place] [address] Dec, [facility] [place] [facility] [address] [id number] [place] [address] Dec, [facility] [place] [facility] [address] [id number] [place] [address] Dec, [facility] [place] [facility] [address] [id number] [place] [address] Dec, [facility] [place] [facility] [address] [id number] [place] [address] Dec, [facility] [place] [facility] [address] [id number] [place] [address] Dec, [facility] [place] [facility] [address] [id number] [place] [address] Sep, [facility] [place] [facility] [address] [id number] [place] [address] Sep, [facility] [place] [facility] [address] [id number] [place] [address] Sep, [facility] [place] [facility] [address] [id number] [place] [address] Sep, [facility] [place] [facility] [address] [id number] [place] [address] Sep, [facility] [place] [facility] [address] [id number] [place] [address] Sep, [facility] [place] [facility] [address] [id number] [place] [address] Sep, [facility] [address] [id number] [place] [address] Sep, [facility] [place] [facility] [address] [id number] [place] [address] Jul, [facility] [address] [id number] [place] [address] Jul, [facility] [place] [facility] [address] [id number] [place] [address] Jun, [facility] [address] [id number] [place] [address] Jun, [facility] [address] [id number] [place] [address] May, [facility] [place] [facility] [address] [id number] [place] [address] May, [facility] [address] [id number] [place] [address] May, [facility] [place] [facility] [address] [id number] [place] [address] May, [facility] [address] [facility] [id number] [place] [address] May, [facility] [place] [facility] [address] [id number] [place] [address] May, [facility] [place] [facility] [address] [id number] [place] [address] 05 May, 2013 [facility] [place] [facility] [address] [id number] [place] [address] Apr, [facility] [place] [facility] [address] [id number] [place] [address] Apr, [facility] [place] [facility] [address] [id number] [place] [address] Apr, [facility] [address] [id number] [place] [address] Apr, [facility] [place] [facility] [address] [id number] [place] [address] Apr, [facility] [place] [facility] [address] [id number] [place] [address] Apr, [facility] [place] [facility] [address] [id number] [place] [address] Mar, [facility] [place] [facility] [address] [id number] [place] [address] Feb, [facility] [place] [facility] [address] [id number] [place] [address] Jan, [facility] [place] [facility] [address] [id number] [place] [address] Jan, [facility] [place] [facility] [address] [id number] [place] [address] Jan, [facility] [place] [facility] [address] [id number] [place] [address] Dec, [facility] [place] [facility] [address] [id number] [place] [address] November, [facility] [place] [facility] [address] [id number] [place] [address] November, [facility] [place] [facility] [address] [id number] [address] November, [facility] [place] [facility] [address] [id number] [place] [address] November, [facility] [place] [facility] [address] [id number] [place] [address] Oct, [facility] [place] [facility] [address] [id number] [place] [address] Aug, [facility] [place] [facility] [address] [id number] [place] [address] Aug, 2012 [facility] [address] [id number] [place] [address] Aug, 2012 [facility] [place] [facility] [address] [id number] [place] [address] Aug, [facility] [place] [facility] [address] [id number] [place] [address] Aug, [facility] [place] [facility] [address] [id number] [place] [address] Aug, [facility] [place] [facility] [address] [facility] [id number] [place] [address], [place] [address] Jul, [facility] [place] [facility] [address] [facility] [id number] [place] [address] May, [facility] [place] [facility] [id number] [place] [address] May, [facility] [place] [facility] [address] [facility] [id number] [place] [address] May, [facility] [place] [facility] [id number] [place] [address] May, [facility] [place] [facility] [address] [facility] [id number] [place] [address] May, [facility] [place] [facility] [address] [facility] [id number] [place] [address] May, [facility] [place] [facility] [address] [facility] [id number] [place] [address] May, [facility] [place] [facility] [address] [facility] [id number] [place] [address] Apr, [facility] [place] [facility] [address] [facility] [id number] [place] [address] Apr, [facility] [place] [facility] [address] [facility] [id number] [place] [address] Apr, [facility] [place] [facility] [address] [id number] [place] [address] Apr, [facility] [place] [facility] [address] [id number] [place] [address] Apr, [facility] [place] [facility] [address] [id number] [place] [address] Sep, [facility] [place] [facility] [address] [id number] [place] [address] Aug, [facility] [place] [facility] [address] [id number] [place] [address] Aug, [facility] [place] [facility] [address] [id number] [place] [address] Aug, [facility] [place] [facility] [address] [id number] [place] [address] Aug, [facility] [place] [facility] [address] [id number] [place] [address] Aug, [facility] [place] [facility] [address] [id number] [place] [address] Jul, [facility] [place] [facility] [address] [facility] [id number] [place] [address] Jul, [facility] [place] [facility] [address] [id number] [place] [address] Jul, [facility] [place] [facility] [address] [id number], [place] [address] Jun, [facility] [place] [facility] [address] [id number] [place] [address] Jun, [facility] [place] [facility] [address] [facility] [id number] [place] [address] Jun, [facility] [place] [facility] [address] [facility] [id number] [place] [address] May, [facility] [place] [facility] [address] [facility] [id number] [place] [address] Apr, [facility] [address] [facility] [id number], [place] [address] Apr, [facility] [address] [facility] [id number], [place] [address] Apr, [facility] [address] [facility] [id number], [place] [address] Apr, IMMUNIZATIONS No Known Immunizations SOCIAL HISTORY Never Assessed REASON FOR VISIT lab f/uOdalys [facility] PLAN OF CARE Activity Details Follow Up prn Reason: VITAL SIGNS Height 69 in 2017-09-22 Weight 350.6 lbs 2017-09-22 Temperature 98.5 degrees Fahrenheit 2017-09-22 Heart Rate 76 bpm 2017-09-22 Respiratory Rate 20 2017-09-22 BMI 51.77 kg/m2 2017-09-22 Blood pressure systolic 128 mmHg 2017-09-22 Blood pressure diastolic 84 mmHg 2017-09-22 MEDICATIONS Medication Instructions Dosage Frequency Start Date End Date Duration Status Propranolol HCl 10 MG TAKE ONE TABLET BY MOUTH TWICE DAILY 30 Active Metformin HCl 500 MG Orally 2 times a day 1 tablet with meals 12h 90 Active Dicyclomine HCl 20 mg Orally Four times a day 1 tablet 6h Aug, Sep, 10 days Not-Taking Triamcinolone Acetonide 0.1 % Externally Twice a day 1 application to affected area 12h Jul, 14 days Active Imitrex 50 MG Orally Twice a day 1 tablet as needed 12h 30 Active Spironolactone 25 MG TAKE ONE TABLET BY MOUTH ONCE DAILY 30 Active Pepcid 20 MG Orally Once a day 1 tablet 24h Active Onzetra Xsail 11 MG/NOSEPC Nasally Once a day 1 spray in each nostril as needed one time 24h Jun, 1 day(s) Not-Taking HydrOXYzine HCl 25 MG Orally every 6 hrs 1 tablet as needed 6h Dec, 0 days Active Protonix 40 MG Orally Once a day 1 tablet 24h Aug, 30 days Active Mobic 7.5 MG Orally Once a day as needed for lega=pain 1-2tablet Dec, 90 days Active Losartan Potassium 50 mg Orally Once a day 1 tablet 24h Aug, 30 day(s) Active Diltiazem HCl ER Beads 240 MG TAKE ONE CAPSULE BY MOUTH DAILY 30 Active Trulicity 1.5 MG/0.5ML Subcutaneous once weekly inject 0.5 ml Oct, 90 days Active Zyrtec Allergy 10 MG Orally Once a day 1 tablet 24h Active RESULTS Name Result Date Reference Range Ultrasound : Pelvic, COMPLETE (REFLEX CPT-[id number]) 2017-10-04 PROCEDURES No Known procedures INSTRUCTIONS MEDICATIONS ADMINISTERED No Known Medications MEDICAL (GENERAL) HISTORY Type Description Date Medical History hypertension Medical History Sleep apnea in adult Surgical History x 3 Surgical History cholecystectomy Surgical History Chemical Stress Test, EKG, Echo 05/2016 Hospitalization History surgeries Hospitalization History UTI VC 05/2016
--- OUTSIDE RECORDS SUMMARY | 2018-12-07 23:27 | XMS REPORT | Continuity of Care Document ---
Author Organization Unknown Address Unknown Allergies Active Description Code Type Severity Reaction Onset Reported/Identified Relationship to Patient Clinical Status Yes chlorthalidone 25 mg tablet Drug Allergy N/A N/A 11/22/2012 Yes hydrochlorothiazide 25 mg tablet Drug Allergy N/A N/A 11/22/2012 Yes codeine Drug Allergy N/A N/A 03/01/2013 Yes red onion Food Allergy N/A N/A 03/01/2013 Yes codeine [id number] Drug Allergy Unknown N/A 10/29/2014 Yes hydrochlorothiazide [id number] Drug Allergy Unknown N/A 10/29/2014 Yes ONION Food Allergy N/A N/A 10/30/2014 Yes codeine [id number] Drug Allergy Severe NECK SWELLING 01/02/2018 Yes hydrochlorothiazide [id number] Drug Allergy Severe NECK SWELLING 01/02/2018 Medications There is no data. Problems Date Dx Coded Attending Type Code Diagnosis Diagnosed By 02/08/2008 783.1 Weight Gain Abnormal 02/08/2008 784.0 Headache 02/08/2008 V18.0 FAMILY HISTORY OF DIABETES MELLITUS 02/08/2008 NAHOMY PETERSON DO 783.1 Weight Gain Abnormal 02/08/2008 NAHOMY PETERSON DO 784.0 Headache 02/08/2008 NAHOMY PETERSON DO V18.0 FAMILY HISTORY OF DIABETES MELLITUS 02/08/2008 783.1 Weight Gain Abnormal 02/08/2008 784.0 Headache 02/08/2008 V18.0 FAMILY HISTORY OF DIABETES MELLITUS 02/08/2008 783.1 Weight Gain Abnormal 02/08/2008 784.0 Headache 02/08/2008 V18.0 FAMILY HISTORY OF DIABETES MELLITUS 02/08/2008 783.1 Weight Gain Abnormal 02/08/2008 784.0 Headache 02/08/2008 V18.0 FAMILY HISTORY OF DIABETES MELLITUS 02/08/2008 783.1 Weight Gain Abnormal 02/08/2008 784.0 Headache 02/08/2008 V18.0 FAMILY HISTORY OF DIABETES MELLITUS 02/08/2008 CAROL PETERSON DOA K 783.1 Weight Gain Abnormal 02/08/2008 CAROL PETERSON DOA K 784.0 Headache 02/08/2008 PETERSON CAROL PICKETTA K V18.0 FAMILY HISTORY OF DIABETES MELLITUS 02/08/2008 RADHA MORRISSEY APRNIA R 783.1 Weight Gain Abnormal 02/08/2008 ARDHA MORRISSEY APRNIA R 784.0 Headache 02/08/2008 RADHA MORRISSEY APRNIA R V18.0 FAMILY HISTORY OF DIABETES MELLITUS 02/08/2008 GEORGETTE KHAN APRNNDA S 783.1 Weight Gain Abnormal 02/08/2008 GEORGETTE KHAN APRNNDA S 784.0 Headache 02/08/2008 GEORGETTE KHAN APRNNDA S V18.0 FAMILY HISTORY OF DIABETES MELLITUS 02/08/2008 GEORGETTE KHAN APRNNDA S 783.1 Weight Gain Abnormal 02/08/2008 GEORGETTE KHAN APRNNDA S 784.0 Headache 02/08/2008 SHANNON KHAN APRNA S V18.0 FAMILY HISTORY OF DIABETES MELLITUS 02/08/2008 RADHA MORRISSEY APRNIA R 783.1 Weight Gain Abnormal 02/08/2008 RADHA MORRISSEY APRNIA R 784.0 Headache 02/08/2008 RADHA MORRISSEY APRNIA R V18.0 FAMILY HISTORY OF DIABETES MELLITUS 02/08/2008 JAZZMINE FISHER RUTH A 783.1 Weight Gain Abnormal 02/08/2008 JAZZMINELIZZ FISHER RUTH A 784.0 Headache 02/08/2008 JAZZMINE FISHER RUTH A V18.0 FAMILY HISTORY OF DIABETES MELLITUS 02/08/2008 BILL FISHER CARISA S 783.1 Weight Gain Abnormal 02/08/2008 BILL FISHER CARISA S 784.0 Headache 02/08/2008 BILL FISHER CARISA S V18.0 FAMILY HISTORY OF DIABETES MELLITUS 02/08/2008 BILL FISHER CARISA S 783.1 Weight Gain Abnormal 02/08/2008 GEORGETTE KHAN APRNNDA S 784.0 Headache 02/08/2008 BILL CUSHION ASSEMBLER, CARISA S V18.0 FAMILY HISTORY OF DIABETES MELLITUS 02/08/2008 RADHA MORRISSEY APRNIA R 783.1 Weight Gain Abnormal 02/08/2008 RADHA MORRISSEY APRNIA R 784.0 Headache 02/08/2008 FANY MORRISSEY APRNRICIA R V18.0 FAMILY HISTORY OF DIABETES MELLITUS 02/08/2008 BILL CUSHION ASSEMBLER, CARISA S 783.1 Weight Gain Abnormal 02/08/2008 BILL CHRISTYN, CARISA S 784.0 Headache 02/08/2008 BILL CUSHION ASSEMBLER, CARISA S V18.0 FAMILY HISTORY OF DIABETES MELLITUS 02/08/2008 BILL CHRISTYN, CARISA S 783.1 Weight Gain Abnormal 02/08/2008 BILL FISHER CARISA S 784.0 Headache 02/08/2008 BILL FISHER, CARISA S V18.0 FAMILY HISTORY OF DIABETES MELLITUS 02/08/2008 BILL FISHER, CARISA S 783.1 Weight Gain Abnormal 02/08/2008 BILL FISHER, CARISA S 784.0 Headache 02/08/2008 BILL FISHER, CARISA S V18.0 FAMILY HISTORY OF DIABETES MELLITUS 02/09/2008 250.00 Diabetes Ii Controlled 02/09/2008 NAHOMY PETERSON DO 250.00 Diabetes Ii Controlled 02/09/2008 250.00 Diabetes Ii Controlled 02/09/2008 250.00 Diabetes Ii Controlled 02/09/2008 250.00 Diabetes Ii Controlled 02/09/2008 250.00 Diabetes Ii Controlled 02/09/2008 NAHOMY PETERSON DO K 250.00 Diabetes Ii Controlled 02/09/2008 RADHA MORRISSEY APRNIA R 250.00 Diabetes Ii Controlled 02/09/2008 GEORGETTE KHAN APRNNDA S 250.00 Diabetes Ii Controlled 02/09/2008 GEORGETTE KHAN APRNNDA S 250.00 Diabetes Ii Controlled 02/09/2008 BALBIR MORRISSEY APRN R 250.00 Diabetes Ii Controlled 02/09/2008 RUTH DOVER APRN 250.00 Diabetes Ii Controlled 02/09/2008 GEORGETTE KHAN APRNNDA S 250.00 Diabetes Ii Controlled 02/09/2008 BILL CUSHION ASSEMBLER, CARISA S 250.00 Diabetes Ii Controlled 02/09/2008 FANY MORRISSEY APRNRICIA R 250.00 Diabetes Ii Controlled 02/09/2008 BILL FISHER, CARISA S 250.00 Diabetes Ii Controlled 02/09/2008 BILL FISHER, CARISA S 250.00 Diabetes Ii Controlled 02/09/2008 BILL FISHER, CARISA S 250.00 Diabetes Ii Controlled 08/01/2008 462 Pharyngitis Acute 08/01/2008 NAHOMY PETERSON DO 462 Pharyngitis Acute 08/01/2008 462 Pharyngitis Acute 08/01/2008 462 Pharyngitis Acute 08/01/2008 462 Pharyngitis Acute 08/01/2008 462 Pharyngitis Acute 08/01/2008 NAHOMY PETERSON DO 462 Pharyngitis Acute 08/01/2008 RADHA MORRISSEY APRNIA R 462 Pharyngitis Acute 08/01/2008 GEORGETTE KHAN APRNNDA S 462 Pharyngitis Acute 08/01/2008 GEORGETTE KHAN APRNNDA S 462 Pharyngitis Acute 08/01/2008 RADHA MORRISSEY APRNIA R 462 Pharyngitis Acute 08/01/2008 RUTH DOVER APRN A 462 Pharyngitis Acute 08/01/2008 GEORGETTE KHAN APRNNDA S 462 Pharyngitis Acute 08/01/2008 BILL FISHER CARISA S 462 Pharyngitis Acute 08/01/2008 RADHA MORRISSEY APRNIA R 462 Pharyngitis Acute 08/01/2008 GEORGETTE KHAN APRNNDA S 462 Pharyngitis Acute 08/01/2008 BILL FISHER, CARISA S 462 Pharyngitis Acute 08/01/2008 GEORGETTE KHAN APRNNDA S 462 Pharyngitis Acute 12/18/2008 599.0 Urinary Tract Infection 12/18/2008 NAHOMY PETERSON DO 599.0 Urinary Tract Infection 12/18/2008 599.0 Urinary Tract Infection 12/18/2008 599.0 Urinary Tract Infection 12/18/2008 599.0 Urinary Tract Infection 12/18/2008 599.0 Urinary Tract Infection 12/18/2008 PETERSON DO, NAHOMY K 599.0 Urinary Tract Infection 12/18/2008 GHANSHYAM CUSHION ASSEMBLER, BALBIR R 599.0 Urinary Tract Infection 12/18/2008 BILL CUSHION ASSEMBLER, CARISA S 599.0 Urinary Tract Infection 12/18/2008 BILL CUSHION ASSEMBLER, CARISA S 599.0 Urinary Tract Infection 12/18/2008 GHANSHYAM CUSHION ASSEMBLER, BALBIR R 599.0 Urinary Tract Infection 12/18/2008 JAZZMINE CUSHION ASSEMBLER, RUTH A 599.0 Urinary Tract Infection 12/18/2008 BILL CUSHION ASSEMBLER, CARISA S 599.0 Urinary Tract Infection 12/18/2008 BILL CUSHION ASSEMBLER, CARISA S 599.0 Urinary Tract Infection 12/18/2008 GHANSHYAM CHRISTYNFANYBALBIR R 599.0 Urinary Tract Infection 12/18/2008 BILL CUSHION ASSEMBLER, CARISA S 599.0 Urinary Tract Infection 12/18/2008 BILL CUSHION ASSEMBLER, CARISA S 599.0 Urinary Tract Infection 12/18/2008 BILL CUSHION ASSEMBLER, CARISA S 599.0 Urinary Tract Infection 01/22/2009 401.1 ESSENTIAL HYPERTENSION BENIGN 01/22/2009 PETERSON DO, NAHOMY K 401.1 ESSENTIAL HYPERTENSION BENIGN 01/22/2009 401.1 ESSENTIAL HYPERTENSION BENIGN 01/22/2009 401.1 ESSENTIAL HYPERTENSION BENIGN 01/22/2009 401.1 ESSENTIAL HYPERTENSION BENIGN 01/22/2009 401.1 ESSENTIAL HYPERTENSION BENIGN 01/22/2009 PETERSON DO, NAHOMY K 401.1 ESSENTIAL HYPERTENSION BENIGN 01/22/2009 FANY MORRISSEY APRNRICIA R 401.1 ESSENTIAL HYPERTENSION BENIGN 01/22/2009 BILL CUSHION ASSEMBLER, CARISA S 401.1 ESSENTIAL HYPERTENSION BENIGN 01/22/2009 BILL CUSHION ASSEMBLER, CARISA S 401.1 ESSENTIAL HYPERTENSION BENIGN 01/22/2009 RADHA MORRISSEY APRNIA R 401.1 ESSENTIAL HYPERTENSION BENIGN 01/22/2009 YU DOVER APRNIDI A 401.1 ESSENTIAL HYPERTENSION BENIGN 01/22/2009 BILL CUSHION ASSEMBLER, CARISA S 401.1 ESSENTIAL HYPERTENSION BENIGN 01/22/2009 BILL CUSHION ASSEMBLER, CARISA S 401.1 ESSENTIAL HYPERTENSION BENIGN 01/22/2009 FANY MORRISSEY APRNRICIA R 401.1 ESSENTIAL HYPERTENSION BENIGN 01/22/2009 GEORGETTE KHAN APRNNDA S 401.1 ESSENTIAL HYPERTENSION BENIGN 01/22/2009 BILL FISHER, CARISA S 401.1 ESSENTIAL HYPERTENSION BENIGN 01/22/2009 BILL FISHER, CARISA S 401.1 ESSENTIAL HYPERTENSION BENIGN 08/07/2009 719.47 Pain In Joint, Ankle And Foot 08/07/2009 NAHOMY PETERSON DO K 719.47 Pain In Joint, Ankle And Foot 08/07/2009 719.47 Pain In Joint, Ankle And Foot 08/07/2009 719.47 Pain In Joint, Ankle And Foot 08/07/2009 719.47 Pain In Joint, Ankle And Foot 08/07/2009 719.47 Pain In Joint, Ankle And Foot 08/07/2009 NAHOMY PETERSON DO 719.47 Pain In Joint, Ankle And Foot 08/07/2009 BALBIR MORRISSEY APRN R 719.47 Pain In Joint, Ankle And Foot 08/07/2009 GEORGETTE KHAN APRNNDA S 719.47 Pain In Joint, Ankle And Foot 08/07/2009 BILL FISHER CARISA S 719.47 Pain In Joint, Ankle And Foot 08/07/2009 RADHA MORRISSEY APRNIA R 719.47 Pain In Joint, Ankle And Foot 08/07/2009 RUTH DOVER APRN A 719.47 Pain In Joint, Ankle And Foot 08/07/2009 GEORGETTE KHAN APRNNDA S 719.47 Pain In Joint, Ankle And Foot 08/07/2009 GEORGETTE KHAN APRNNDA S 719.47 Pain In Joint, Ankle And Foot 08/07/2009 FANY MORRISSEY APRNRICIA R 719.47 Pain In Joint, Ankle And Foot 08/07/2009 BILL FISHER CARISA S 719.47 Pain In Joint, Ankle And Foot 08/07/2009 GEORGETTE KHAN APRNNDA S 719.47 Pain In Joint, Ankle And Foot 08/07/2009 BILL FISHER CARISA S 719.47 Pain In Joint, Ankle And Foot 08/11/2009 780.79 Fatigue 08/11/2009 NAHOMY PETERSON DO 780.79 Fatigue 08/11/2009 780.79 Fatigue 08/11/2009 780.79 Fatigue 08/11/2009 780.79 Fatigue 08/11/2009 780.79 Fatigue 08/11/2009 NAHOMY PETERSON DO K 780.79 Fatigue 08/11/2009 RADHA MORRISSEY APRNIA R 780.79 Fatigue 08/11/2009 BILL CUSHION ASSEMBLER, CARISA S 780.79 Fatigue 08/11/2009 BILL CUSHION ASSEMBLER, CARISA S 780.79 Fatigue 08/11/2009 FANY MORRISSEY APRNRICIA R 780.79 Fatigue 08/11/2009 JAZZMINE CUSHION ASSEMBLER, RUTH A 780.79 Fatigue 08/11/2009 BILL CUSHION ASSEMBLER, CARISA S 780.79 Fatigue 08/11/2009 BILL CUSHION ASSEMBLER, CARISA S 780.79 Fatigue 08/11/2009 FANY MORRISSEY APRNRICIA R 780.79 Fatigue 08/11/2009 BILL CUSHION ASSEMBLER, CARISA S 780.79 Fatigue 08/11/2009 BILL CUSHION ASSEMBLER, CARISA S 780.79 Fatigue 08/11/2009 BILL CUSHION ASSEMBLER, CARISA S 780.79 Fatigue 09/09/2009 V74.1 Screening Examination For Pulmonary Tuberculosis 09/09/2009 PETERSON CAROL PICKETTA K V74.1 Screening Examination For Pulmonary Tuberculosis 09/09/2009 V74.1 Screening Examination For Pulmonary Tuberculosis 09/09/2009 V74.1 Screening Examination For Pulmonary Tuberculosis 09/09/2009 V74.1 Screening Examination For Pulmonary Tuberculosis 09/09/2009 V74.1 Screening Examination For Pulmonary Tuberculosis 09/09/2009 NAHOMY PETERSON DO K V74.1 Screening Examination For Pulmonary Tuberculosis 09/09/2009 FANY MORRISSEY APRNRICIA R V74.1 Screening Examination For Pulmonary Tuberculosis 09/09/2009 BILL CUSHION ASSEMBLER, CARISA S V74.1 Screening Examination For Pulmonary Tuberculosis 09/09/2009 BILL CUSHION ASSEMBLER, CARISA S V74.1 Screening Examination For Pulmonary Tuberculosis 09/09/2009 RADHA MORRISSEY APRNIA R V74.1 Screening Examination For Pulmonary Tuberculosis 09/09/2009 JAZZMINE APRN, RUTH A V74.1 Screening Examination For Pulmonary Tuberculosis 09/09/2009 BILL CUSHION ASSEMBLER, CARISA S V74.1 Screening Examination For Pulmonary Tuberculosis 09/09/2009 BILL CUSHION ASSEMBLER, CARISA S V74.1 Screening Examination For Pulmonary Tuberculosis 09/09/2009 GHANSHYAM CUSHION ASSEMBLER, BALBIR R V74.1 Screening Examination For Pulmonary Tuberculosis 09/09/2009 BILL CUSHION ASSEMBLER, CARISA S V74.1 Screening Examination For Pulmonary Tuberculosis 09/09/2009 BILL CUSHION ASSEMBLER, CARISA S V74.1 Screening Examination For Pulmonary Tuberculosis 09/09/2009 BILL CUSHION ASSEMBLER, CARISA S V74.1 Screening Examination For Pulmonary Tuberculosis 09/15/2009 V72.31 Routine Gynecological Examination 09/15/2009 PETERSON DO NAHOMY K V72.31 Routine Gynecological Examination 09/15/2009 V72.31 Routine Gynecological Examination 09/15/2009 V72.31 Routine Gynecological Examination 09/15/2009 V72.31 Routine Gynecological Examination 09/15/2009 V72.31 Routine Gynecological Examination 09/15/2009 PETERSON DO NAHOMY K V72.31 Routine Gynecological Examination 09/15/2009 FANY MORRISSEY APRNRICIA R V72.31 Routine Gynecological Examination 09/15/2009 BILL CUSHION ASSEMBLER, CARISA S V72.31 Routine Gynecological Examination 09/15/2009 BILL CUSHION ASSEMBLER, CARISA S V72.31 Routine Gynecological Examination 09/15/2009 FANY MORRISSEY APRNRICIA R V72.31 Routine Gynecological Examination 09/15/2009 JAZZMINE CUSHION ASSEMBLER, RUTH A V72.31 Routine Gynecological Examination 09/15/2009 BILL CUSHION ASSEMBLER, CARISA S V72.31 Routine Gynecological Examination 09/15/2009 BILL CUSHION ASSEMBLER, CARISA S V72.31 Routine Gynecological Examination 09/15/2009 GHANSHYAM CUSHION ASSEMBLER, BALBIR R V72.31 Routine Gynecological Examination 09/15/2009 BILL CUSHION ASSEMBLER, CARISA S V72.31 Routine Gynecological Examination 09/15/2009 BILL CUSHION ASSEMBLER, CARISA S V72.31 Routine Gynecological Examination 09/15/2009 BILL CUSHION ASSEMBLER, CARISA S V72.31 Routine Gynecological Examination 12/11/2009 300.00 Anxiety State, Unspecified 12/11/2009 PETERSON DO, NAHOMY K 300.00 Anxiety State, Unspecified 12/11/2009 300.00 Anxiety State, Unspecified 12/11/2009 300.00 Anxiety State, Unspecified 12/11/2009 300.00 Anxiety State, Unspecified 12/11/2009 300.00 Anxiety State, Unspecified 12/11/2009 PETERSON DO NAHOMY K 300.00 Anxiety State, Unspecified 12/11/2009 GHANSHYAM CUSHION ASSEMBLERRADHA HoustonIA R 300.00 Anxiety State, Unspecified 12/11/2009 BILL CUSHION ASSEMBLER, CARISA S 300.00 Anxiety State, Unspecified 12/11/2009 BILL CUSHION ASSEMBLER, CARISA S 300.00 Anxiety State, Unspecified 12/11/2009 GHANSHYAM CUSHION ASSEMBLERFANY HoustonBALIBR R 300.00 Anxiety State, Unspecified 12/11/2009 JAZZMINE CUSHION ASSEMBLER, RUTH A 300.00 Anxiety State, Unspecified 12/11/2009 BILL CUSHION ASSEMBLER, CARISA S 300.00 Anxiety State, Unspecified 12/11/2009 BILL CUSHION ASSEMBLER, CARISA S 300.00 Anxiety State, Unspecified 12/11/2009 RADHA MORRISSEY APRNIA R 300.00 Anxiety State, Unspecified 12/11/2009 BILL CUSHION ASSEMBLER, CARISA S 300.00 Anxiety State, Unspecified 12/11/2009 BILL CUSHION ASSEMBLER, CARISA S 300.00 Anxiety State, Unspecified 12/11/2009 BILL CUSHION ASSEMBLER, CARISA S 300.00 Anxiety State, Unspecified 04/27/2011 461.0 Acute Maxillary Sinusitis 04/27/2011 727.43 Ganglion Unspecified 04/27/2011 PETERSON DO, NAHOMY K 461.0 Acute Maxillary Sinusitis 04/27/2011 PETERSON DO NAHOMY K 727.43 Ganglion Unspecified 04/27/2011 461.0 Acute Maxillary Sinusitis 04/27/2011 727.43 Ganglion Unspecified 04/27/2011 461.0 Acute Maxillary Sinusitis 04/27/2011 727.43 Ganglion Unspecified 04/27/2011 461.0 Acute Maxillary Sinusitis 04/27/2011 727.43 Ganglion Unspecified 04/27/2011 461.0 Acute Maxillary Sinusitis 04/27/2011 727.43 Ganglion Unspecified 04/27/2011 PETERSON DO, NAHOMY K 461.0 Acute Maxillary Sinusitis 04/27/2011 PETERSON DO NAHOMY K 727.43 Ganglion Unspecified 04/27/2011 MORRISSEY CUSHION ASSEMBLER, BALBIR R 461.0 Acute Maxillary Sinusitis 04/27/2011 MORRISSEY CUSHION ASSEMBLER, BALBIR R 727.43 Ganglion Unspecified 04/27/2011 BILL CUSHION ASSEMBLER, CARISA S 461.0 Acute Maxillary Sinusitis 04/27/2011 BILL CUSHION ASSEMBLER, CARISA S 727.43 Ganglion Unspecified 04/27/2011 BILL CUSHION ASSEMBLER, CARISA S 461.0 Acute Maxillary Sinusitis 04/27/2011 BILL CUSHION ASSEMBLER, CARISA S 727.43 Ganglion Unspecified 04/27/2011 MORRISSEY CUSHION ASSEMBLER, BALBIR R 461.0 Acute Maxillary Sinusitis 04/27/2011 MORRISSEY CUSHION ASSEMBLER, BALBIR R 727.43 Ganglion Unspecified 04/27/2011 JAZZMINE CUSHION ASSEMBLER, RUTH A 461.0 Acute Maxillary Sinusitis 04/27/2011 JAZZMINE CUSHION ASSEMBLER, RUTH A 727.43 Ganglion Unspecified 04/27/2011 BILL CUSHION ASSEMBLER, CARISA S 461.0 Acute Maxillary Sinusitis 04/27/2011 BILL CUSHION ASSEMBLER, CARISA S 727.43 Ganglion Unspecified 04/27/2011 BILL CUSHION ASSEMBLER, CARISA S 461.0 Acute Maxillary Sinusitis 04/27/2011 BILL CUSHION ASSEMBLER, CARISA S 727.43 Ganglion Unspecified 04/27/2011 MORRISSEY CUSHION ASSEMBLER, BALBIR R 461.0 Acute Maxillary Sinusitis 04/27/2011 MORRISSEY CUSHION ASSEMBLER, BALBIR R 727.43 Ganglion Unspecified 04/27/2011 BILL CUSHION ASSEMBLER, CARISA S 461.0 Acute Maxillary Sinusitis 04/27/2011 BILL CUSHION ASSEMBLER, CARISA S 727.43 Ganglion Unspecified 04/27/2011 BILL CUSHION ASSEMBLER, CARISA S 461.0 Acute Maxillary Sinusitis 04/27/2011 BILL CUSHION ASSEMBLER, CARISA S 727.43 Ganglion Unspecified 04/27/2011 BILL CUSHION ASSEMBLER, CARISA S 461.0 Acute Maxillary Sinusitis 04/27/2011 BILL CUSHION ASSEMBLER, CARISA S 727.43 Ganglion Unspecified 07/01/2011 Ot 784.0 HEADACHE 07/01/2011 Ot 786.52 PAINFUL RESPIRATION 07/15/2011 300.00 ANXIETY DISORDER NOS 07/15/2011 NAHOMY PETERSON DO K 300.00 ANXIETY DISORDER NOS 07/15/2011 300.00 ANXIETY DISORDER NOS 07/15/2011 300.00 ANXIETY DISORDER NOS 07/15/2011 300.00 ANXIETY DISORDER NOS 07/15/2011 300.00 ANXIETY DISORDER NOS 07/15/2011 NAHOMY PETERSON DO K 300.00 ANXIETY DISORDER NOS 07/15/2011 FANY MORRISSEY APRNRICIA R 300.00 ANXIETY DISORDER NOS 07/15/2011 BILL CUSHION ASSEMBLER, CARISA S 300.00 ANXIETY DISORDER NOS 07/15/2011 BILL CUSHION ASSEMBLER, CARISA S 300.00 ANXIETY DISORDER NOS 07/15/2011 FANY MORRISSEY APRNRICIA R 300.00 ANXIETY DISORDER NOS 07/15/2011 RUTH DOVER APRN A 300.00 ANXIETY DISORDER NOS 07/15/2011 BILL FISHER, CARISA S 300.00 ANXIETY DISORDER NOS 07/15/2011 BILL FISHER, CARISA S 300.00 ANXIETY DISORDER NOS 07/15/2011 FANY MORRISSEY APRNRICIA R 300.00 ANXIETY DISORDER NOS 07/15/2011 BILL FISHER, CARISA S 300.00 ANXIETY DISORDER NOS 07/15/2011 BILL FISHER, CARISA S 300.00 ANXIETY DISORDER NOS 07/15/2011 BILL FISHER, CARISA S 300.00 ANXIETY DISORDER NOS 08/18/2011 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 08/18/2011 NAHOMY PETERSON DO K 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 08/18/2011 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 08/18/2011 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 08/18/2011 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 08/18/2011 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 08/18/2011 NAHOMY PETERSON DO K 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 08/18/2011 RADHA MORRISSEY APRNIA R 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 08/18/2011 GEORGETTE KHAN APRNNDA S 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 08/18/2011 BILL FISHER CARISA S 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 08/18/2011 RADHA MORRISSEY APRNIA R 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 08/18/2011 JAZZMINE CUSHION ASSEMBLER, RUTH A 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 08/18/2011 BILL FISHER, CARISA S 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 08/18/2011 BILL FISHER, CARISA S 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 08/18/2011 FANY MORRISSEY APRNRICIA R 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 08/18/2011 BILL CUSHION ASSEMBLER, CARISA S 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 08/18/2011 BILL FISHER, CARISA S 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 08/18/2011 BILL CUSHION ASSEMBLER, CARISA S 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 08/25/2011 465.9 UPPER RESPIRATORY INFECTION 08/25/2011 NAHOMY PETERSON DO 465.9 UPPER RESPIRATORY INFECTION 08/25/2011 465.9 UPPER RESPIRATORY INFECTION 08/25/2011 465.9 UPPER RESPIRATORY INFECTION 08/25/2011 465.9 UPPER RESPIRATORY INFECTION 08/25/2011 465.9 UPPER RESPIRATORY INFECTION 08/25/2011 NAHOMY PETERSON DO 465.9 UPPER RESPIRATORY INFECTION 08/25/2011 BALBIR MORRISSEY APRN R 465.9 UPPER RESPIRATORY INFECTION 08/25/2011 SHANNON KHAN APRNA S 465.9 UPPER RESPIRATORY INFECTION 08/25/2011 SHANNON KHAN APRNA S 465.9 UPPER RESPIRATORY INFECTION 08/25/2011 BALBIR MORRISSEY APRN R 465.9 UPPER RESPIRATORY INFECTION 08/25/2011 RUTH DOVER APRN A 465.9 UPPER RESPIRATORY INFECTION 08/25/2011 SHANNON KHAN APRNA S 465.9 UPPER RESPIRATORY INFECTION 08/25/2011 GEORGETTE KHAN APRNNDA S 465.9 UPPER RESPIRATORY INFECTION 08/25/2011 RADHA MORRISSEY APRNIA R 465.9 UPPER RESPIRATORY INFECTION 08/25/2011 GEORGETTE KHAN APRNNDA S 465.9 UPPER RESPIRATORY INFECTION 08/25/2011 GEORGETTE KHAN APRNNDA S 465.9 UPPER RESPIRATORY INFECTION 08/25/2011 GEORGETTE KHAN APRNNDA S 465.9 UPPER RESPIRATORY INFECTION 09/01/2011 311 MO DEPRESS NOS 09/01/2011 NAHOMY PETERSON DO K 311 MO DEPRESS NOS 09/01/2011 311 MO DEPRESS NOS 09/01/2011 311 MO DEPRESS NOS 09/01/2011 311 MO DEPRESS NOS 09/01/2011 311 MO DEPRESS NOS 09/01/2011 PETERSON DO, NAHOMY K 311 MO DEPRESS NOS 09/01/2011 RADHA MORRISSEY APRNIA R 311 MO DEPRESS NOS 09/01/2011 BILL CUSHION ASSEMBLER, CARISA S 311 MO DEPRESS NOS 09/01/2011 BILL CUSHION ASSEMBLER, CARISA S 311 MO DEPRESS NOS 09/01/2011 GHANSHYAM CUSHION ASSEMBLERRADHA HoustonIA R 311 MO DEPRESS NOS 09/01/2011 JAZZMINE CUSHION ASSEMBLER, RUTH A 311 MO DEPRESS NOS 09/01/2011 BILL CUSHION ASSEMBLER, CARISA S 311 MO DEPRESS NOS 09/01/2011 BILL CUSHION ASSEMBLER, CARISA S 311 MO DEPRESS NOS 09/01/2011 RADHA MORRISSEY APRNIA R 311 MO DEPRESS NOS 09/01/2011 BILL CUSHION ASSEMBLER, CARISA S 311 MO DEPRESS NOS 09/01/2011 BILL CUSHION ASSEMBLER, CARISA S 311 MO DEPRESS NOS 09/01/2011 BILL CUSHION ASSEMBLER, CARISA S 311 MO DEPRESS NOS 09/02/2011 466.0 ACUTE BRONCHITIS 09/02/2011 KRISTEN PICKETT, NAHOMY K 466.0 ACUTE BRONCHITIS 09/02/2011 466.0 ACUTE BRONCHITIS 09/02/2011 466.0 ACUTE BRONCHITIS 09/02/2011 466.0 ACUTE BRONCHITIS 09/02/2011 466.0 ACUTE BRONCHITIS 09/02/2011 PETERSON CAROL PICKETTA K 466.0 ACUTE BRONCHITIS 09/02/2011 RADHA MORRISSEY APRNIA R 466.0 ACUTE BRONCHITIS 09/02/2011 BILL FISHER CARISA S 466.0 ACUTE BRONCHITIS 09/02/2011 BILL FISHER CARISA S 466.0 ACUTE BRONCHITIS 09/02/2011 RADHA MORRISSEY APRNIA R 466.0 ACUTE BRONCHITIS 09/02/2011 JAZZMINE FISHER, RUTH A 466.0 ACUTE BRONCHITIS 09/02/2011 BILL FISHER CARISA S 466.0 ACUTE BRONCHITIS 09/02/2011 BILL FISHER CARISA S 466.0 ACUTE BRONCHITIS 09/02/2011 RADHA MORRISSEY APRNIA R 466.0 ACUTE BRONCHITIS 09/02/2011 BILL FISHER CARISA S 466.0 ACUTE BRONCHITIS 09/02/2011 BILL FISHER CARISA S 466.0 ACUTE BRONCHITIS 09/02/2011 GEORGETTE KHAN APRNNDA S 466.0 ACUTE BRONCHITIS 04/06/2012 Ot 401.9 HYPERTENSION NOS 04/06/2012 Ot 784.2 SWELLING IN HEAD NECK 04/06/2012 Ot 995.3 ALLERGY, UNSPECIFIED 04/06/2012 Ot E000.8 OTHER EXTERNAL CAUSE STATUS 04/06/2012 Ot E928.8 ACCIDENT NEC 05/12/2012 Ot 462 ACUTE PHARYNGITIS 05/16/2012 462 ACUTE PHARYNGITIS 05/16/2012 NAHOMY PETERSON DO 462 ACUTE PHARYNGITIS 05/16/2012 462 ACUTE PHARYNGITIS 05/16/2012 462 ACUTE PHARYNGITIS 05/16/2012 462 ACUTE PHARYNGITIS 05/16/2012 462 ACUTE PHARYNGITIS 05/16/2012 NAHOMY PETERSON DO 462 ACUTE PHARYNGITIS 05/16/2012 BALBIR MORRISSEY APRN R 462 ACUTE PHARYNGITIS 05/16/2012 CARISA KHAN APRN S 462 ACUTE PHARYNGITIS 05/16/2012 SHANNON KHAN APRNA S 462 ACUTE PHARYNGITIS 05/16/2012 BALBIR MORRISSEY APRN R 462 ACUTE PHARYNGITIS 05/16/2012 RUTH DOVER APRN A 462 ACUTE PHARYNGITIS 05/16/2012 SHANNON KHAN APRNA S 462 ACUTE PHARYNGITIS 05/16/2012 GEORGETTE KHAN APRNNDA S 462 ACUTE PHARYNGITIS 05/16/2012 BALBIR MORRISSEY APRN R 462 ACUTE PHARYNGITIS 05/16/2012 SHANNON KHAN APRNA S 462 ACUTE PHARYNGITIS 05/16/2012 GEORGETTE KHAN APRNNDA S 462 ACUTE PHARYNGITIS 05/16/2012 SHANNON KHNA APRNA S 462 ACUTE PHARYNGITIS 05/25/2012 V04.81 FLU DX (3 YRS AND ABOVE, IM) 05/25/2012 NAHOMY PETERSON DO V04.81 FLU DX (3 YRS AND ABOVE, IM) 05/25/2012 V04.81 FLU DX (3 YRS AND ABOVE, IM) 05/25/2012 V04.81 FLU DX (3 YRS AND ABOVE, IM) 05/25/2012 V04.81 FLU DX (3 YRS AND ABOVE, IM) 05/25/2012 V04.81 FLU DX (3 YRS AND ABOVE, IM) 05/25/2012 NAHOMY PETERSON DO K V04.81 FLU DX (3 YRS AND ABOVE, IM) 05/25/2012 GHANSHYAM CUSHION ASSEMBLER, BALBIR R V04.81 FLU DX (3 YRS AND ABOVE, IM) 05/25/2012 BILL CUSHION ASSEMBLER, CARISA S V04.81 FLU DX (3 YRS AND ABOVE, IM) 05/25/2012 BILL CUSHION ASSEMBLER, CARISA S V04.81 FLU DX (3 YRS AND ABOVE, IM) 05/25/2012 GHANSHYAM CUSHION ASSEMBLER, BALBIR R V04.81 FLU DX (3 YRS AND ABOVE, IM) 05/25/2012 JAZZMINE CUSHION ASSEMBLER, RUTH A V04.81 FLU DX (3 YRS AND ABOVE, IM) 05/25/2012 BILL CUSHION ASSEMBLER, CARISA S V04.81 FLU DX (3 YRS AND ABOVE, IM) 05/25/2012 BILL CUSHION ASSEMBLER, CARISA S V04.81 FLU DX (4 YRS AND ABOVE, IM) 05/25/2012 GHANSHYAM CUSHION ASSEMBLER, BALBIR R V04.81 FLU DX (3 YRS AND ABOVE, IM) 05/25/2012 BILL CUSHION ASSEMBLER, CARISA S V04.81 FLU DX (3 YRS AND ABOVE, IM) 05/25/2012 BILL CUSHION ASSEMBLER, CARISA S V04.81 FLU DX (3 YRS AND ABOVE, IM) 05/25/2012 BILL CUSHION ASSEMBLER, CARISA S V04.81 FLU DX (3 YRS AND ABOVE, IM) 08/16/2012 461.9 SINUSITIS ACUTE 08/16/2012 784.0 HEADACHE 08/16/2012 NAHOMY PETERSON DO K 461.9 SINUSITIS ACUTE 08/16/2012 PETERSON NAHOMY PICKETT K 784.0 HEADACHE 08/16/2012 461.9 SINUSITIS ACUTE 08/16/2012 784.0 HEADACHE 08/16/2012 461.9 SINUSITIS ACUTE 08/16/2012 784.0 HEADACHE 08/16/2012 461.9 SINUSITIS ACUTE 08/16/2012 784.0 HEADACHE 08/16/2012 461.9 SINUSITIS ACUTE 08/16/2012 784.0 HEADACHE 08/16/2012 PETERSON DO, NAHOMY K 461.9 SINUSITIS ACUTE 08/16/2012 PETERSON DO, NAHOMY K 784.0 HEADACHE 08/16/2012 MORRISSEY CUSHION ASSEMBLER, BALBIR R 461.9 SINUSITIS ACUTE 08/16/2012 MORRISSEY CUSHION ASSEMBLER, BALBIR R 784.0 HEADACHE 08/16/2012 BILL CUSHION ASSEMBLER, CARISA S 461.9 SINUSITIS ACUTE 08/16/2012 BILL CUSHION ASSEMBLER, CARISA S 784.0 HEADACHE 08/16/2012 BILL CUSHION ASSEMBLER, CARISA S 461.9 SINUSITIS ACUTE 08/16/2012 BILL CUSHION ASSEMBLER, CARISA S 784.0 HEADACHE 08/16/2012 MORRISSEY CUSHION ASSEMBLER, BALBIR R 461.9 SINUSITIS ACUTE 08/16/2012 MORRISSEY CUSHION ASSEMBLER, BALBIR R 784.0 HEADACHE 08/16/2012 JAZZMINE CUSHION ASSEMBLER, RUTH A 461.9 SINUSITIS ACUTE 08/16/2012 JAZZMINE CUSHION ASSEMBLER, RUTH A 784.0 HEADACHE 08/16/2012 BILL CUSHION ASSEMBLER, CARISA S 461.9 SINUSITIS ACUTE 08/16/2012 BILL CUSHION ASSEMBLER, CARISA S 784.0 HEADACHE 08/16/2012 MORRISSEY CUSHION ASSEMBLER, BALBIR R 461.9 SINUSITIS ACUTE 08/16/2012 MORRISSEY CUSHION ASSEMBLER, BALBIR R 784.0 HEADACHE 08/16/2012 BILL CUSHION ASSEMBLER, CARISA S 461.9 SINUSITIS ACUTE 08/16/2012 BILL CUSHION ASSEMBLER, CARISA S 784.0 HEADACHE 08/16/2012 BILL CUSHION ASSEMBLER, CARISA S 461.9 SINUSITIS ACUTE 08/16/2012 BILL CUSHION ASSEMBLER, CARISA S 784.0 HEADACHE 08/16/2012 BILL CUSHION ASSEMBLER, CARISA S 461.9 SINUSITIS ACUTE 08/16/2012 BILL CUSHION ASSEMBLER, CARISA S 784.0 HEADACHE 09/04/2012 PETERSON DO, NAHOMY K 278.00 OBESITY 09/04/2012 PETERSON DO, NAHOMY K V73.81 HPV SCREENING 09/04/2012 NAHOMY PETERSON DO K V76.2 CERVICAL CANCER SCREENING (PAP SMEAR) 09/04/2012 278.00 OBESITY 09/04/2012 V73.81 HPV SCREENING 09/04/2012 V76.2 CERVICAL CANCER SCREENING (PAP SMEAR) 09/04/2012 278.00 OBESITY 09/04/2012 V73.81 HPV SCREENING 09/04/2012 V76.2 CERVICAL CANCER SCREENING (PAP SMEAR) 09/04/2012 278.00 OBESITY 09/04/2012 V73.81 HPV SCREENING 09/04/2012 V76.2 CERVICAL CANCER SCREENING (PAP SMEAR) 09/04/2012 278.00 OBESITY 09/04/2012 V73.81 HPV SCREENING 09/04/2012 V76.2 CERVICAL CANCER SCREENING (PAP SMEAR) 09/04/2012 NAHOMY PETERSON DO K 278.00 OBESITY 09/04/2012 CAROL PETERSON DOA K V73.81 HPV SCREENING 09/04/2012 KRISTEN PICKETT NAHOMY K V76.2 CERVICAL CANCER SCREENING (PAP SMEAR) 09/04/2012 RADHA MORRISSEY APRNIA R 278.00 OBESITY 09/04/2012 RADHA MORRISSEY APRNIA R V73.81 HPV SCREENING 09/04/2012 FANY MORRISSEY APRNRICIA R V76.2 CERVICAL CANCER SCREENING (PAP SMEAR) 09/04/2012 GEORGETTE KHAN APRNNDA S 278.00 OBESITY 09/04/2012 GEORGETTE KHAN APRNNDA S V73.81 HPV SCREENING 09/04/2012 GEORGETTE KHAN APRNNDA S V76.2 CERVICAL CANCER SCREENING (PAP SMEAR) 09/04/2012 GEORGETTE KHAN APRNNDA S 278.00 OBESITY 09/04/2012 GEORGETTE KHAN APRNNDA S V73.81 HPV SCREENING 09/04/2012 GEORGETTE KHAN APRNNDA S V76.2 CERVICAL CANCER SCREENING (PAP SMEAR) 09/04/2012 FANY MORRISSEY APRNRICIA R 278.00 OBESITY 09/04/2012 FANY MORRISSEY APRNRICIA R V73.81 HPV SCREENING 09/04/2012 FANY MORRISSEY APRNRICIA R V76.2 CERVICAL CANCER SCREENING (PAP SMEAR) 09/04/2012 RUTH DOVER APRN 278.00 OBESITY 09/04/2012 YU DOVER APRNIDI A V73.81 HPV SCREENING 09/04/2012 JAZZMINEYU [place] APRNIDI A V76.2 CERVICAL CANCER SCREENING (PAP SMEAR) 09/04/2012 BILL FISHER, CARISA S 278.00 OBESITY 09/04/2012 BILL CUSHION ASSEMBLER, CARISA S V73.81 HPV SCREENING 09/04/2012 BILL FISHER CARISA S V76.2 CERVICAL CANCER SCREENING (PAP SMEAR) 09/04/2012 RADHA MORRISSEY APRNIA R 278.00 OBESITY 09/04/2012 FANY MORRISSEY APRNRICIA R V73.81 HPV SCREENING 09/04/2012 GHANSHYAM CUSHION ASSEMBLER, BALBIR R V76.2 CERVICAL CANCER SCREENING (PAP SMEAR) 09/04/2012 BILL FISHER, CARISA S 278.00 OBESITY 09/04/2012 BILL FISHER CARISA S V73.81 HPV SCREENING 09/04/2012 GEORGETTE KHAN APRNNDA S V76.2 CERVICAL CANCER SCREENING (PAP SMEAR) 09/04/2012 BILL FISHER, CARISA S 278.00 OBESITY 09/04/2012 BILL FISHER, CARISA S V73.81 HPV SCREENING 09/04/2012 BILL FISHER CARISA S V76.2 CERVICAL CANCER SCREENING (PAP SMEAR) 09/04/2012 BILL FISHER, CARISA S 278.00 OBESITY 09/04/2012 BILL FISHER, CARISA S V73.81 HPV SCREENING 09/04/2012 BILL FISHER CARISA S V76.2 CERVICAL CANCER SCREENING (PAP SMEAR) 11/07/2012 786.2 cough 11/07/2012 786.2 cough 11/07/2012 786.2 cough 11/07/2012 786.2 cough 11/07/2012 NAHOMY PETERSON DO 786.2 cough 11/07/2012 RADHA MORRISSEY APRNIA R 786.2 cough 11/07/2012 BILL FISHER CARISA S 786.2 COUGH 11/07/2012 BILL FISHER CARISA S 786.2 COUGH 11/07/2012 BALBIR MORRISSEY APRN R 786.2 COUGH 11/07/2012 JAZZMINE CUSHION ASSEMBLER, RUTH A 786.2 COUGH 11/07/2012 BILL CUSHION ASSEMBLER, CARISA S 786.2 COUGH 11/07/2012 MORRISSEY CUSHION ASSEMBLER, BALBIR R 786.2 COUGH 11/07/2012 BILL CUSHION ASSEMBLER, CARISA S 786.2 COUGH 11/07/2012 BILL CUSHION ASSEMBLER, CARISA S 786.2 COUGH 11/07/2012 BILL CUSHION ASSEMBLER, CARISA S 786.2 COUGH 11/16/2012 Ot 486 PNEUMONIA, ORGANISM NOS 11/16/2012 Ot 784.0 HEADACHE 11/21/2012 701.9 SKIN TAG 11/21/2012 701.9 SKIN TAG 11/21/2012 701.9 SKIN TAG 11/21/2012 NAHOMY PETERSON DO 701.9 SKIN TAG 11/21/2012 GHANSHYAM CUSHION ASSEMBLER, BALBIR R 701.9 SKIN TAG 11/21/2012 BILL CUSHION ASSEMBLER, CARISA S 701.9 SKIN TAG 11/21/2012 BILL CUSHION ASSEMBLER, CARISA S 701.9 SKIN TAG 11/21/2012 GHANSHYAM CUSHION ASSEMBLER, BALBIR R 701.9 SKIN TAG 11/21/2012 JAZZMINE CUSHION ASSEMBLER, RUTH A 701.9 SKIN TAG 11/21/2012 BILL CUSHION ASSEMBLER, CARISA S 701.9 SKIN TAG 11/21/2012 GHANSHYAM CUSHION ASSEMBLER, BALBIR R 701.9 SKIN TAG 11/21/2012 BILL CUSHION ASSEMBLER, CARISA S 701.9 SKIN TAG 11/21/2012 BILL CUSHION ASSEMBLER, CARISA S 701.9 SKIN TAG 11/21/2012 BILL CUSHION ASSEMBLER, CARISA S 701.9 SKIN TAG 11/22/2012 Ot 698.9 PRURITIC DISORDER NOS 11/22/2012 Ot 784.2 SWELLING IN HEAD NECK 11/22/2012 Ot 995.27 OTHER DRUG ALLERGY 11/22/2012 Ot E944.3 ADV EFF SALURETICS 11/22/2012 Ot 300.00 ANXIETY STATE NOS 11/22/2012 Ot 401.9 HYPERTENSION NOS 11/22/2012 Ot 786.50 CHEST PAIN NOS 11/23/2012 995.27 OTHER DRUG ALLERGY 11/23/2012 995.27 OTHER DRUG ALLERGY 11/23/2012 995.27 OTHER DRUG ALLERGY 11/23/2012 CAROL PETERSON DOA K 995.27 OTHER DRUG ALLERGY 11/23/2012 GHANSHYAM CUSHION ASSEMBLER, BALBIR R 995.27 OTHER DRUG ALLERGY 11/23/2012 BILL CUSHION ASSEMBLER, CARISA S 995.27 OTHER DRUG ALLERGY 11/23/2012 BILL CUSHION ASSEMBLER, CARISA S 995.27 OTHER DRUG ALLERGY 11/23/2012 FANY MORRISSEY APRNRICIA R 995.27 OTHER DRUG ALLERGY 11/23/2012 JAZZMINE FISHER RUTH A 995.27 OTHER DRUG ALLERGY 11/23/2012 BILL CUSHION ASSEMBLER, CARISA S 995.27 OTHER DRUG ALLERGY 11/23/2012 GHANSHYAM CHRISTYNFANYBALBIR R 995.27 OTHER DRUG ALLERGY 11/23/2012 BILL CUSHION ASSEMBLER, CARISA S 995.27 OTHER DRUG ALLERGY 11/23/2012 BILL CUSHION ASSEMBLER, CARISA S 995.27 OTHER DRUG ALLERGY 11/23/2012 BILL CUSHION ASSEMBLER, CARISA S 995.27 OTHER DRUG ALLERGY 11/27/2012 Ot 729.1 MYALGIA AND MYOSITIS NOS 11/27/2012 Ot 787.01 NAUSEA WITH VOMITING 11/27/2012 Ot 787.91 DIARRHEA 01/23/2013 Ot 462 ACUTE PHARYNGITIS 03/01/2013 995.3 ALLERGY UNSPECIFIED NOT ELSEWHERE CLASSIFIED 03/01/2013 CAROL PETERSON DOA K 995.3 ALLERGY UNSPECIFIED NOT ELSEWHERE CLASSIFIED 03/01/2013 FANY MORRISSEY APRNRICIA R 995.3 ALLERGY UNSPECIFIED NOT ELSEWHERE CLASSIFIED 03/01/2013 BILL CUSHION ASSEMBLER, CARISA S 995.3 ALLERGY UNSPECIFIED NOT ELSEWHERE CLASSIFIED 03/01/2013 BILL CUSHION ASSEMBLER, CARISA S 995.3 ALLERGY UNSPECIFIED NOT ELSEWHERE CLASSIFIED 03/01/2013 GHANSHYAM CUSHION ASSEMBLERFANY [place] 995.3 ALLERGY UNSPECIFIED NOT ELSEWHERE CLASSIFIED 03/01/2013 YU DOVER APRNIDI A 995.3 ALLERGY UNSPECIFIED NOT ELSEWHERE CLASSIFIED 03/01/2013 BILL CUSHION ASSEMBLER, CARISA S 995.3 ALLERGY UNSPECIFIED NOT ELSEWHERE CLASSIFIED 03/01/2013 FANY MORRISSEY APRNRICIA R 995.3 ALLERGY UNSPECIFIED NOT ELSEWHERE CLASSIFIED 03/01/2013 BILL CUSHION ASSEMBLER, CARISA S 995.3 ALLERGY UNSPECIFIED NOT ELSEWHERE CLASSIFIED 03/01/2013 BILL CUSHION ASSEMBLER, CARISA S 995.3 ALLERGY UNSPECIFIED NOT ELSEWHERE CLASSIFIED 03/01/2013 BILL CUSHION ASSEMBLER, CARISA S 995.3 ALLERGY UNSPECIFIED NOT ELSEWHERE CLASSIFIED 05/16/2013 NAHOMY PETERSON DO K 789.09 ABDOMINAL PAIN OTHER SPECIFIED SITE 05/16/2013 MORRISSEY CUSHION ASSEMBLER, BALBIR R 789.09 ABDOMINAL PAIN OTHER SPECIFIED SITE 05/16/2013 BILL CUSHION ASSEMBLER, CARISA S 789.09 ABDOMINAL PAIN OTHER SPECIFIED SITE 05/16/2013 BILL CUSHION ASSEMBLER, CARISA S 789.09 ABDOMINAL PAIN OTHER SPECIFIED SITE 05/16/2013 MORRISSEY CUSHION ASSEMBLER, BALBIR R 789.09 ABDOMINAL PAIN OTHER SPECIFIED SITE 05/16/2013 JAZZMINE CUSHION ASSEMBLER, RUTH A 789.09 ABDOMINAL PAIN OTHER SPECIFIED SITE 05/16/2013 BILL CUSHION ASSEMBLER, CARISA S 789.09 ABDOMINAL PAIN OTHER SPECIFIED SITE 05/16/2013 MORRISSEY CUSHION ASSEMBLER, BALBIR R 789.09 ABDOMINAL PAIN OTHER SPECIFIED SITE 05/16/2013 BILL CUSHION ASSEMBLER, CARISA S 789.09 ABDOMINAL PAIN OTHER SPECIFIED SITE 05/16/2013 BILL CUSHION ASSEMBLER, CARISA S 789.09 ABDOMINAL PAIN OTHER SPECIFIED SITE 05/16/2013 BILL CUSHION ASSEMBLER, CARISA S 789.09 ABDOMINAL PAIN OTHER SPECIFIED SITE 06/04/2013 MORRISSEY CUSHION ASSEMBLER, BALBIR R 729.5 PAIN IN LIMB 06/04/2013 BILL CUSHION ASSEMBLER, CARISA S 729.5 PAIN IN LIMB 06/04/2013 BILL CUSHION ASSEMBLER, CARISA S 729.5 PAIN IN LIMB 06/04/2013 MORRISSEY CUSHION ASSEMBLER, BALBIR R 729.5 PAIN IN LIMB 06/04/2013 JAZZMINE CUSHION ASSEMBLER, RUTH A 729.5 PAIN IN LIMB 06/04/2013 BILL CUSHION ASSEMBLER, CARISA S 729.5 PAIN IN LIMB 06/04/2013 MORRISSEY CUSHION ASSEMBLER, BALBIR R 729.5 PAIN IN LIMB 06/04/2013 BILL CUSHION ASSEMBLER, CARISA S 729.5 PAIN IN LIMB 06/04/2013 BILL CUSHION ASSEMBLER, CARISA S 729.5 PAIN IN LIMB 06/04/2013 BILL FISHER, CARISA S 729.5 PAIN IN LIMB 06/18/2013 GEORGETTE KHAN APRNNDA S 573.8 OTHER SPECIFIED DISORDERS OF LIVER 06/18/2013 BILL FISEHR CARISA S 573.8 OTHER SPECIFIED DISORDERS OF LIVER 06/18/2013 FANY MORRISSEY APRNRICIA R 573.8 OTHER SPECIFIED DISORDERS OF LIVER 06/18/2013 JAZZMINE FISHER RUTH A 573.8 OTHER SPECIFIED DISORDERS OF LIVER 06/18/2013 GEORGETTE KHAN APRNNDA S 573.8 OTHER SPECIFIED DISORDERS OF LIVER 06/18/2013 FANY MORRISSEY APRNRICIA R 573.8 OTHER SPECIFIED DISORDERS OF LIVER 06/18/2013 GEORGETTE KHAN APRNNDA S 573.8 OTHER SPECIFIED DISORDERS OF LIVER 06/18/2013 GEORGETTE KHAN APRNNDA S 573.8 OTHER SPECIFIED DISORDERS OF LIVER 06/18/2013 GEORGETTE KHAN APRNNDA S 573.8 OTHER SPECIFIED DISORDERS OF LIVER 08/01/2013 Ot 462 ACUTE PHARYNGITIS 08/01/2013 Ot 487.1 FLU W RESP MANIFEST NEC 10/09/2013 SHANNON KHAN APRNA S 251.1 HYPERINSULINISM 10/09/2013 SHANNON KHAN APRNA S 780.79 fatigue 10/09/2013 FANY MORRISSEY APRNRICIA R 251.1 HYPERINSULINISM 10/09/2013 GHANSHYAM FISHER BALBIR R 780.79 fatigue 10/09/2013 JAZZMINE FISHER RUTH A 251.1 HYPERINSULINISM 10/09/2013 JAZZMINE FISHER, RUTH A 780.79 fatigue 10/09/2013 GEORGETTE KHAN APRNNDA S 251.1 HYPERINSULINISM 10/09/2013 GEORGETTE KHAN APRNNDA S 780.79 FATIGUE 10/09/2013 FANY MORRISSEY APRNRICIA R 251.1 HYPERINSULINISM 10/09/2013 GHANSHYAM FISHER, BALBIR R 780.79 FATIGUE 10/09/2013 GEORGETTE KHAN APRNNDA S 251.1 HYPERINSULINISM 10/09/2013 GEORGETTE KHAN APRNNDA S 780.79 FATIGUE 10/09/2013 BILL CUSHION ASSEMBLER, CARISA S 251.1 HYPERINSULINISM 10/09/2013 BILL CUSHION ASSEMBLER, CARISA S 780.79 FATIGUE 10/09/2013 BILL CUSHION ASSEMBLER, CARISA S 251.1 HYPERINSULINISM 10/09/2013 BILL CUSHION ASSEMBLER, CARISA S 780.79 FATIGUE 12/27/2013 GHANSHYAM CUSHION ASSEMBLER, BALBIR R 034.0 STREP THROAT 12/27/2013 JAZZMINE CUSHION ASSEMBLER, RUTH A 034.0 STREP THROAT 12/27/2013 BILL CUSHION ASSEMBLER, CARISA S 034.0 STREP THROAT 12/27/2013 GHANSHYAM CUSHION ASSEMBLER, BALBIR R 034.0 STREP THROAT 12/27/2013 BILL CUSHION ASSEMBLER, CARISA S 034.0 STREP THROAT 12/27/2013 BILL CUSHION ASSEMBLER, CARISA S 034.0 STREP THROAT 12/27/2013 BILL CUSHION ASSEMBLER, CARISA S 034.0 STREP THROAT 01/03/2014 JAZZMINE CUSHION ASSEMBLER, RUTH A 599.0 URINARY TRACT INFECTION 01/03/2014 BILL CUSHION ASSEMBLER, CARISA S 599.0 URINARY TRACT INFECTION 01/03/2014 GHANSHYAM CUSHION ASSEMBLER, BALBIR R 599.0 URINARY TRACT INFECTION 01/03/2014 BILL CUSHION ASSEMBLER, CARISA S 599.0 URINARY TRACT INFECTION 01/03/2014 BILL CUSHION ASSEMBLER, CARISA S 599.0 URINARY TRACT INFECTION 01/03/2014 BILL CUSHION ASSEMBLER, CARISA S 599.0 URINARY TRACT INFECTION 02/10/2014 ENMA GARCIA MD Ot 346.90 MIGRAINE UNSPECIFIED W/O INTRACT MGRN W/ 02/10/2014 ENMA GARCIA MD Ot 784.0 HEADACHE 02/18/2014 BILL CUSHION ASSEMBLER, CARISA S 307.81 TENSION HEADACHE 02/18/2014 BILL CHRISTYN, CARISA S 401.1 HYPERTENSION, BENIGN ESSENTIAL 02/18/2014 GHANSHYAM CHRISTYN, BALBIR R 307.81 TENSION HEADACHE 02/18/2014 GHANSHYAM CUSHION ASSEMBLER, BALBIR R 401.1 HYPERTENSION, BENIGN ESSENTIAL 02/18/2014 BILL CUSHION ASSEMBLER, CARISA S 307.81 TENSION HEADACHE 02/18/2014 BILL CUSHION ASSEMBLER, CARISA S 401.1 HYPERTENSION, BENIGN ESSENTIAL 02/18/2014 BILL CUSHION ASSEMBLER, CARISA S 307.81 TENSION HEADACHE 02/18/2014 BILL CUSHION ASSEMBLER, CARISA S 401.1 HYPERTENSION, BENIGN ESSENTIAL 02/18/2014 BILL CUSHION ASSEMBLER, CARISA S 307.81 TENSION HEADACHE 02/18/2014 BILL CUSHION ASSEMBLER, CARISA S 401.1 HYPERTENSION, BENIGN ESSENTIAL 03/08/2014 MORRISSEY CUSHION ASSEMBLER, BALBIR R 477.8 ALLERGIC RHINITIS DUE TO OTHER ALLERGEN 03/08/2014 MORRISSEY CUSHION ASSEMBLER, BALBIR R 784.0 HEADACHE 03/08/2014 BILL CUSHION ASSEMBLER, CARISA S 477.8 ALLERGIC RHINITIS DUE TO OTHER ALLERGEN 03/08/2014 BILL CUSHION ASSEMBLER, CARISA S 784.0 HEADACHE 03/08/2014 BILL CUSHION ASSEMBLER, CARISA S 477.8 ALLERGIC RHINITIS DUE TO OTHER ALLERGEN 03/08/2014 BILL CUSHION ASSEMBLER, CARISA S 784.0 HEADACHE 03/08/2014 BILL CUSHION ASSEMBLER, CARISA S 477.8 ALLERGIC RHINITIS DUE TO OTHER ALLERGEN 03/08/2014 BILL CUSHION ASSEMBLER, CARISA S 784.0 HEADACHE 09/17/2014 BILL CUSHION ASSEMBLER, CARISA S 465.9 UPPER RESPIRATORY INFECTION 09/17/2014 BILL CUSHION ASSEMBLER, CARISA S 465.9 UPPER RESPIRATORY INFECTION 09/17/2014 BILL CUSHION ASSEMBLER, CARISA S 465.9 UPPER RESPIRATORY INFECTION 09/25/2014 BILL CUSHION ASSEMBLER, CARISA S 346.90 MIGRAINE HEADACHE 09/25/2014 BILL CUSHION ASSEMBLER, CARISA S 786.2 COUGH 09/25/2014 BILL CUSHION ASSEMBLER, CARISA S 346.90 MIGRAINE HEADACHE 09/25/2014 BILL CUSHION ASSEMBLER, CARISA S 786.2 COUGH 09/25/2014 BILL CUSHION ASSEMBLER, CARISA S 346.90 MIGRAINE HEADACHE 09/25/2014 BILL CUSHION ASSEMBLER, CARISA S 786.2 COUGH 10/29/2014 ANDREEA WASHINGTON DO Ot 300.00 ANXIETY STATE NOS 10/29/2014 ANDREEA WASHINGTON DO Ot 529.6 GLOSSODYNIA 06/12/2016 Ot 573.8 LIVER DISORDERS NEC 06/12/2016 Ot 789.09 ABDOMINAL PAIN, OTHER SPECIFIED SITE 06/12/2016 Ot 573.8 LIVER DISORDERS NEC 06/12/2016 CARISA KHAN [employer] OPERATIONS SPECIALIST Ot 573.8 LIVER DISORDERS NEC 06/14/2016 TORRES BANKS MD Ot E11.9 TYPE 2 DIABETES MELLITUS WITHOUT COMPLIC 06/14/2016 TORRES BANKS MD Ot E66.01 MORBID (SEVERE) OBESITY DUE TO EXCESS CA 06/14/2016 TORRES BANKS MD Ot G43.909 MIGRAINE, UNSP, NOT INTRACTABLE, WITHOUT 06/14/2016 TORRES BANKS MD, Ot I10 ESSENTIAL (PRIMARY) HYPERTENSION 06/14/2016 TORRES BANKS MD Ot R07.89 OTHER CHEST PAIN 06/14/2016 TORRES BANKS MD, Ot Z68.43 BODY MASS INDEX (BMI) 50-59.9 , ADULT 06/14/2016 TORRES BANKS MD Ot Z79.84 BUSINESS IMPROVEMENT MANAGER (CURRENT) USE OF ORAL HYPOGLYC 07/13/2016 LEIGHA OSBORN MD A Ot E11.9 TYPE 2 DIABETES MELLITUS WITHOUT COMPLIC 07/13/2016 LEIGHA OSBORN MD A Ot I10 ESSENTIAL (PRIMARY) HYPERTENSION 07/13/2016 LEIGHA OSBORN MD A Ot J02.0 STREPTOCOCCAL PHARYNGITIS 07/13/2016 LEIGHA OSBORN MD A Ot J02.9 ACUTE PHARYNGITIS, UNSPECIFIED 07/13/2016 LEIGHA OSBORN MD A Ot Z79.84 CARE HOME (CURRENT) USE OF ORAL HYPOGLYC 07/13/2016 LEIGHA OSBORN MD A Ot Z79.899 OTHER CARE HOME (CURRENT) DRUG THERAPY 07/14/2016 LEIGHA OSBORN MD A Ot E11.9 TYPE 2 DIABETES MELLITUS WITHOUT COMPLIC 07/14/2016 LEIGHA OSBORN MD A Ot I10 ESSENTIAL (PRIMARY) HYPERTENSION 07/14/2016 LEIGHA OSBORN MD A Ot J02.0 STREPTOCOCCAL PHARYNGITIS 07/14/2016 LEIGHA OSBORN MD A Ot J02.9 ACUTE PHARYNGITIS, UNSPECIFIED 07/14/2016 LEIGHA OSBORN MD A Ot Z79.84 BUSINESS IMPROVEMENT MANAGER (CURRENT) USE OF ORAL HYPOGLYC 07/14/2016 ANNA OSBONR MDNT A Ot Z79.899 OTHER CARE HOME (CURRENT) DRUG THERAPY 07/18/2016 LEIGHA OSBORN MD Ot E11.9 TYPE 2 DIABETES MELLITUS WITHOUT COMPLIC 07/18/2016 LEIGHA OSBORN MD Ot I10 ESSENTIAL (PRIMARY) HYPERTENSION 07/18/2016 LEIGHA OSBORN MD A Ot J02.0 STREPTOCOCCAL PHARYNGITIS 07/18/2016 LEIGHA OSBORN MD Ot J02.9 ACUTE PHARYNGITIS, UNSPECIFIED 07/18/2016 LEIGHA OSBORN MD Ot Z79.84 BUSINESS IMPROVEMENT MANAGER (CURRENT) USE OF ORAL HYPOGLYC 07/18/2016 LEIGHA OSBORN MD A Ot Z79.899 OTHER CARE HOME (CURRENT) DRUG THERAPY 12/04/2016 ALLEGRA VILLATORO APRN Ot E11.9 TYPE 2 DIABETES MELLITUS WITHOUT COMPLIC 12/04/2016 ALLEGRA VILLATORO APRN Ot I10 ESSENTIAL (PRIMARY) HYPERTENSION 12/04/2016 ALLEGRA VILLATORO APRN Ot S40.012A CONTUSION OF LEFT SHOULDER, INITIAL ENCO 12/04/2016 ALLEGRA VILLATORO APRN Ot S49.92XA UNSP INJURY OF LEFT SHOULDER AND UPPER A 12/04/2016 ALLEGRA VILLATORO APRN Ot W01.0XXA FALL SAME LEV FROM SLIP/TRIP W/O STRIKE 12/04/2016 ALLEGRA VILLATORO APRN Ot Y92.39 [facility] [employer] [facility] PL[facility] 12/04/2016 ALLEGRA VILLATORO APRN Ot Y99.8 OTHER EXTERNAL CAUSE STATUS 12/04/2016 ALLEGRA VILLATORO APRN Ot Z79.84 CARE HOME (CURRENT) USE OF ORAL HYPOGLYC 12/06/2016 ALLEGRA VILLATORO APRN Ot E11.9 TYPE 2 DIABETES MELLITUS WITHOUT COMPLIC 12/06/2016 ALLEGRA VILLATORO APRN Ot I10 ESSENTIAL (PRIMARY) HYPERTENSION 12/06/2016 ALLEGRA VILLATORO APRN Ot S40.012A CONTUSION OF LEFT SHOULDER, INITIAL ENCO 12/06/2016 ALLEGRA VILLATORO APRN Ot S49.92XA UNSP INJURY OF LEFT SHOULDER AND UPPER A 12/06/2016 ALLEGRA VILLATORO APRN Ot W01.0XXA FALL SAME LEV FROM SLIP/TRIP W/O STRIKE 12/06/2016 ALLEGRA VILLATORO APRN Ot Y92.39 [facility] [employer] [facility] [employer] AREA PLACE 12/06/2016 ALLEGRA VILLATORO APRN Ot Y99.8 OTHER EXTERNAL CAUSE STATUS 12/06/2016 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 Ot Z79.84 BUSINESS IMPROVEMENT MANAGER (CURRENT) USE OF ORAL HYPOGLYC 02/07/2017 FELIX DO, ANDREEA K Ot E11.9 TYPE 2 DIABETES MELLITUS WITHOUT COMPLIC 02/07/2017 FELIX DO, ANDREEA K Ot E78.00 PURE HYPERCHOLESTEROLEMIA, UNSPECIFIED 02/07/2017 FELIX DO, ANDREEA K Ot G43.909 MIGRAINE, UNSP, NOT INTRACTABLE, WITHOUT 02/07/2017 FELIX DO, ANDREEA K Ot G47.30 SLEEP APNEA, UNSPECIFIED 02/07/2017 FELIX DO, ANDREEA K Ot I10 ESSENTIAL (PRIMARY) HYPERTENSION 02/07/2017 FELIX DO, ANDREEA K Ot N39.0 URINARY TRACT INFECTION, SITE NOT SPECIF 02/07/2017 FELIX DO, ANDREEA K Ot R10.12 LEFT UPPER QUADRANT PAIN 02/07/2017 FELIX DO, ANDREEA K Ot Z79.84 BUSINESS IMPROVEMENT MANAGER (CURRENT) USE OF ORAL HYPOGLYC 02/07/2017 FELIX DO, ANDREEA K Ot Z82.49 FAMILY HX OF ISCHEM HEART DIS AND OTH DI 02/07/2017 FELIX DO, ANDREEA K Ot Z87.59 PERSONAL HISTORY OF COMP OF PREG, CHLDBR 02/08/2017 FELIX DO, ANDREEA K Ot E11.9 TYPE 2 DIABETES MELLITUS WITHOUT COMPLIC 02/08/2017 FELIX DO, ANDREEA K Ot E78.00 PURE HYPERCHOLESTEROLEMIA, UNSPECIFIED 02/08/2017 FELIX DO, ANDREEA K Ot G43.909 MIGRAINE, UNSP, NOT INTRACTABLE, WITHOUT 02/08/2017 FELIX DO, ANDREEA K Ot G47.30 SLEEP APNEA, UNSPECIFIED 02/08/2017 FELIX DO, ANDREEA K Ot I10 ESSENTIAL (PRIMARY) HYPERTENSION 02/08/2017 FELIX DO, ANDREEA K Ot N39.0 URINARY TRACT INFECTION, SITE NOT SPECIF 02/08/2017 FELIX DO, ANDREEA K Ot R10.12 LEFT UPPER QUADRANT PAIN 02/08/2017 FELIX DO, ANDREEA K Ot Z79.84 CARE HOME (CURRENT) USE OF ORAL HYPOGLYC 02/08/2017 FELIX DO, ANDREEA K Ot Z82.49 FAMILY HX OF ISCHEM HEART DIS AND OTH DI 02/08/2017 ANDREEA [place] DO Swetha Ot Z87.59 PERSONAL HISTORY OF COMP OF PREG, CHLDBR 03/05/2017 SOLO ALFARO Ot E11.9 TYPE 2 DIABETES MELLITUS WITHOUT COMPLIC 03/05/2017 SOLO ALFARO Ot G43.909 MIGRAINE, UNSP, NOT INTRACTABLE, WITHOUT 03/05/2017 SOLO ALFARO Ot I10 ESSENTIAL (PRIMARY) HYPERTENSION 03/05/2017 SOLO ALFARO Ot M25.571 PAIN IN RIGHT ANKLE AND JOINTS OF RIGHT 03/05/2017 SOLO ALFARO Ot S80.861A INSECT BITE (NONVENOMOUS), RIGHT LOWER L 03/05/2017 SOOL ALFARO Ot W57.XXXA BIT/STUNG BY NONVENOM INSECT OTH NONVE 03/05/2017 SOLO ALFARO Ot Z79.84 CARE HOME (CURRENT) USE OF ORAL HYPOGLYC 03/05/2017 SOLO ALFARO Ot Z82.49 FAMILY HX OF ISCHEM HEART DIS AND OTH DI 03/05/2017 SOLO ALFARO Ot Z87.59 PERSONAL HISTORY OF COMP OF PREG, CHLDBR 03/08/2017 SOLO ALFARO Ot E11.9 TYPE 2 DIABETES MELLITUS WITHOUT COMPLIC 03/08/2017 SOLO ALFARO Ot G43.909 MIGRAINE, UNSP, NOT INTRACTABLE, WITHOUT 03/08/2017 SOLO ALFARO Ot I10 ESSENTIAL (PRIMARY) HYPERTENSION 03/08/2017 SOLO ALFARO Ot M25.571 PAIN IN RIGHT ANKLE AND JOINTS OF RIGHT 03/08/2017 SOLO ALFARO Ot S80.861A INSECT BITE (NONVENOMOUS), RIGHT LOWER L 03/08/2017 SOLO ALFARO Ot W57.XXXA BIT/STUNG BY NONVENOM INSECT OTH NONVE 03/08/2017 SOLO ALFARO Ot Z79.84 BUSINESS IMPROVEMENT MANAGER (CURRENT) USE OF ORAL HYPOGLYC 03/08/2017 SOLO ALFARO Ot Z82.49 FAMILY HX OF ISCHEM HEART DIS AND OTH DI 03/08/2017 SOLO ALFARO Ot Z87.59 PERSONAL HISTORY OF COMP OF PREG, CHLDBR 09/04/2017 FAITH, JIGAR CYBER SYSTEMS OPERATIONS SPECIALIST Ot E11.9 TYPE 2 DIABETES MELLITUS WITHOUT COMPLIC 09/04/2017 FAITH, JIGAR [employer]S OPERATIONS SPECIALIST Ot G44.201 TENSION-TYPE HEADACHE, UNSPECIFIED, INTR 09/04/2017 FAITH, JIGAR [employer]S OPERATIONS SPECIALIST Ot I10 ESSENTIAL (PRIMARY) HYPERTENSION 09/04/2017 FAITH, JIGAR [employer]S OPERATIONS SPECIALIST Ot R51 HEADACHE 09/04/2017 FAITH, JIGAR [employer] SYSTEMS OPERATIONS SPECIALIST Ot Z79.84 BUSINESS IMPROVEMENT MANAGER (CURRENT) USE OF ORAL HYPOGLYC 09/04/2017 FAITH, JIGAR [employer]S OPERATIONS SPECIALIST Ot Z82.49 FAMILY HX OF ISCHEM HEART DIS AND OTH DI 09/04/2017 FAITH, JIGAR [employer] SYSTEMS OPERATIONS SPECIALIST Ot Z87.01 PERSONAL HISTORY OF PNEUMONIA (RECURRENT 09/04/2017 FAITH, JIGAR [employer]S OPERATIONS SPECIALIST Ot Z87.59 PERSONAL HISTORY OF COMP OF PREG, CHLDBR 09/04/2017 FAITH, JIGAR [employer] SYSTEMS OPERATIONS SPECIALIST Ot Z88.5 ALLERGY STATUS TO NARCOTIC AGENT STATUS 09/04/2017 FAITH, JIGAR [employer] SYSTEMS OPERATIONS SPECIALIST Ot Z88.8 ALLERGY STATUS TO OTH DRUG/MEDS/BIOL SUB 09/06/2017 FAITH, JIGAR [employer] SYSTEMS OPERATIONS SPECIALIST Ot E11.9 TYPE 2 DIABETES MELLITUS WITHOUT COMPLIC 09/06/2017 FAITH, JIGAR [employer]S OPERATIONS SPECIALIST Ot G44.201 TENSION-TYPE HEADACHE, UNSPECIFIED, INTR 09/06/2017 FAITH, JIGAR [employer] SYSTEMS OPERATIONS SPECIALIST Ot I10 ESSENTIAL (PRIMARY) HYPERTENSION 09/06/2017 FAITH, JIGAR CY[employer] SYSTEMS OPERATIONS SPECIALIST Ot R51 HEADACHE 09/06/2017 FAITH, JIGAR [employer] SYSTEMS OPERATIONS SPECIALIST Ot Z79.84 BUSINESS IMPROVEMENT MANAGER (CURRENT) USE OF ORAL HYPOGLYC 09/06/2017 FAITH, JIGAR CY[employer] SYSTEMS OPERATIONS SPECIALIST Ot Z82.49 FAMILY HX OF ISCHEM HEART DIS AND OTH DI 09/06/2017 FAITH, JIGAR [employer] SYSTEMS OPERATIONS SPECIALIST Ot Z87.01 PERSONAL HISTORY OF PNEUMONIA (RECURRENT 09/06/2017 FAITH, JIGAR [employer] SYSTEMS OPERATIONS SPECIALIST Ot Z87.59 PERSONAL HISTORY OF COMP OF PREG, CHLDBR 09/06/2017 FAITH, JIGAR [employer] SYSTEMS OPERATIONS SPECIALIST Ot Z88.5 ALLERGY STATUS TO NARCOTIC AGENT STATUS 09/06/2017 FAITH, JIGAR [employer] SYSTEMS OPERATIONS SPECIALIST Ot Z88.8 ALLERGY STATUS TO OTH DRUG/MEDS/BIOL SUB 09/08/2017 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 Ot B34.9 VIRAL INFECTION, UNSPECIFIED 09/08/2017 ALLEGRA VILLATORO APRN Ot E11.9 TYPE 2 DIABETES MELLITUS WITHOUT COMPLIC 09/08/2017 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 Ot I10 ESSENTIAL (PRIMARY) HYPERTENSION 09/08/2017 ALLEGRA VILLATORO APRN Ot R51 HEADACHE 09/08/2017 ALLEGRA VILLATORO APRN Ot Z79.84 BUSINESS IMPROVEMENT MANAGER (CURRENT) USE OF ORAL HYPOGLYC 09/08/2017 ALLEGRA VILLATORO APRN Ot Z82.49 FAMILY HX OF ISCHEM HEART DIS AND OTH DI 09/08/2017 ALLEGRA VILLATORO APRN Ot Z87.01 PERSONAL HISTORY OF PNEUMONIA (RECURRENT 09/08/2017 ALLEGRA VILLATORO APRN Ot Z87.59 PERSONAL HISTORY OF COMP OF PREG, CHLDBR 09/08/2017 ALLEGRA VILLATORO APRN Ot Z88.5 ALLERGY STATUS TO NARCOTIC AGENT STATUS 09/08/2017 ALLEGRA VILLATORO APRN Ot Z88.8 ALLERGY STATUS TO OTH DRUG/MEDS/BIOL SUB 09/12/2017 ALLEGRA VILLATORO APRN Ot B34.9 VIRAL INFECTION, UNSPECIFIED 09/12/2017 ALLEGRA VILLATORO APRN Ot E11.9 TYPE 2 DIABETES MELLITUS WITHOUT COMPLIC 09/12/2017 ALLEGRA VILLATORO APRN Ot I10 ESSENTIAL (PRIMARY) HYPERTENSION 09/12/2017 ALLEGRA VILLATORO APRN Ot R51 HEADACHE 09/12/2017 ALLEGRA VILLATORO APRN Ot Z79.84 BUSINESS IMPROVEMENT MANAGER (CURRENT) USE OF ORAL HYPOGLYC 09/12/2017 ALLEGRA VILLATORO APRN Ot Z82.49 FAMILY HX OF ISCHEM HEART DIS AND OTH DI 09/12/2017 ALLEGRA VILLATORO APRN Ot Z87.01 PERSONAL HISTORY OF PNEUMONIA (RECURRENT 09/12/2017 ALLEGRA VILLATORO APRN Ot Z87.59 PERSONAL HISTORY OF COMP OF PREG, CHLDBR 09/12/2017 ALLEGRA VILLATORO APRN Ot Z88.5 ALLERGY STATUS TO NARCOTIC AGENT STATUS 09/12/2017 ALLEGRA VILLATORO APRN Ot Z88.8 ALLERGY STATUS TO OTH DRUG/MEDS/BIOL SUB 09/13/2017 SOLO ALFARO Ot E11.9 TYPE 2 DIABETES MELLITUS WITHOUT COMPLIC 09/13/2017 SOLO ALFAOR Ot E86.9 VOLUME DEPLETION, UNSPECIFIED 09/13/2017 SOLO ALFARO Ot G43.909 MIGRAINE, UNSP, NOT INTRACTABLE, WITHOUT 09/13/2017 SOLO ALFARO Ot I10 ESSENTIAL (PRIMARY) HYPERTENSION 09/13/2017 SOLO ALFARO Ot R10.9 UNSPECIFIED ABDOMINAL PAIN 09/13/2017 SOLO ALFARO Ot R11.0 NAUSEA 09/13/2017 SOLO ALFARO Ot R19.7 DIARRHEA, UNSPECIFIED 09/13/2017 SOLO ALFARO Ot Z82.49 FAMILY HX OF ISCHEM HEART DIS AND OTH DI 09/13/2017 SOLO ALFARO Ot Z87.01 PERSONAL HISTORY OF PNEUMONIA (RECURRENT 09/13/2017 SOLO ALFARO Ot Z87.59 PERSONAL HISTORY OF COMP OF PREG, CHLDBR 09/13/2017 SOLO ALFARO Ot Z88.5 ALLERGY STATUS TO NARCOTIC AGENT STATUS 09/13/2017 SOLO ALFARO Ot Z88.8 ALLERGY STATUS TO OTH DRUG/MEDS/BIOL SUB 09/15/2017 SOLO ALFARO Ot E11.9 TYPE 2 DIABETES MELLITUS WITHOUT COMPLIC 09/15/2017 SOLO ALFARO Ot E86.9 VOLUME DEPLETION, UNSPECIFIED 09/15/2017 SOLO ALFARO Ot G43.909 MIGRAINE, UNSP, NOT INTRACTABLE, WITHOUT 09/15/2017 SOLO ALFARO Ot I10 ESSENTIAL (PRIMARY) HYPERTENSION 09/15/2017 SOLO ALFARO Ot R10.9 UNSPECIFIED ABDOMINAL PAIN 09/15/2017 SOLO ALFARO Ot R11.0 NAUSEA 09/15/2017 SOLO ALFARO Ot R19.7 DIARRHEA, UNSPECIFIED 09/15/2017 SOLO ALFARO Ot Z82.49 FAMILY HX OF ISCHEM HEART DIS AND OTH DI 09/15/2017 SOLO ALFARO Ot Z87.01 PERSONAL HISTORY OF PNEUMONIA (RECURRENT 09/15/2017 SOLO ALFARO Ot Z87.59 PERSONAL HISTORY OF COMP OF PREG, CHLDBR 09/15/2017 SOLO ALFARO Ot Z88.5 ALLERGY STATUS TO NARCOTIC AGENT STATUS 09/15/2017 SOLO ALFARO Ot Z88.8 ALLERGY STATUS TO OTH DRUG/MEDS/BIOL SUB 09/19/2017 SOLO ALFARO Ot E11.9 TYPE 2 DIABETES MELLITUS WITHOUT COMPLIC 09/19/2017 SOLO ALFARO Ot E86.9 VOLUME DEPLETION, UNSPECIFIED 09/19/2017 SOLO ALFARO Ot G43.909 MIGRAINE, UNSP, NOT INTRACTABLE, WITHOUT 09/19/2017 SOLO ALFARO Ot I10 ESSENTIAL (PRIMARY) HYPERTENSION 09/19/2017 SOLO ALFARO Ot R10.9 UNSPECIFIED ABDOMINAL PAIN 09/19/2017 SOLO ALFARO Ot R11.0 NAUSEA 09/19/2017 SOLO ALFARO Ot R19.7 DIARRHEA, UNSPECIFIED 09/19/2017 SOLO ALFARO Ot Z82.49 FAMILY HX OF ISCHEM HEART DIS AND OTH DI 09/19/2017 SOLO ALFARO Ot Z87.01 PERSONAL HISTORY OF PNEUMONIA (RECURRENT 09/19/2017 SOLO ALFARO Ot Z87.59 PERSONAL HISTORY OF COMP OF PREG, CHLDBR 09/19/2017 SOLO ALFARO Ot Z88.5 ALLERGY STATUS TO NARCOTIC AGENT STATUS 09/19/2017 SOLO ALFARO Ot Z88.8 ALLERGY STATUS TO OTH DRUG/MEDS/BIOL SUB 10/05/2017 CARISA KHAN CYBER SYSTEMS OPERATIONS SPECIALIST Ot N85.2 HYPERTROPHY OF UTERUS 10/18/2017 CARISA KHAN CYBER SYSTEMS OPERATIONS SPECIALIST Ot N85.2 HYPERTROPHY OF UTERUS 11/03/2017 CARY ANGLIN APRN Ot M79.605 PAIN IN LEFT LEG 11/03/2017 CARY ANGLIN APRN Ot M79.605 PAIN IN LEFT LEG 11/03/2017 CARY ANGLIN APRN Ot M79.605 PAIN IN LEFT LEG 11/15/2017 CARY ANGLIN APRN Ot M79.605 PAIN IN LEFT LEG 12/05/2017 ANDREEA WASHINGTON DO Ot E11.9 TYPE 2 DIABETES MELLITUS WITHOUT COMPLIC 12/05/2017 ANDREEA WASHINGTON DO Ot E66.01 MORBID (SEVERE) OBESITY DUE TO EXCESS CA 12/05/2017 ANDREEA WASHINGTON DO Ot G43.909 MIGRAINE, UNSP, NOT INTRACTABLE, WITHOUT 12/05/2017 FELIX DO, ANDREEA K Ot I10 ESSENTIAL (PRIMARY) HYPERTENSION 12/05/2017 FELIX DO, ANDREEA K Ot R10.32 LEFT LOWER QUADRANT PAIN 12/05/2017 FELIX DO, ANDREEA K Ot R11.2 NAUSEA WITH VOMITING, UNSPECIFIED 12/05/2017 FELIX DO, ANDREEA K Ot R19.7 DIARRHEA, UNSPECIFIED 12/05/2017 FELIX DOCAINA K Ot Z68.43 BODY MASS INDEX (BMI) 50-59.9 , ADULT 12/05/2017 FELIX DOCAINA K Ot Z82.49 FAMILY HX OF ISCHEM HEART DIS AND OTH DI 12/05/2017 CAIN W[place] DOA K Ot Z87.01 PERSONAL HISTORY OF PNEUMONIA (RECURRENT 12/05/2017 ANDREEA WASHINGTON DO Ot Z87.59 PERSONAL HISTORY OF COMP OF PREG, CHLDBR 12/05/2017 ANDREEA WASHINGTON DO K Ot Z88.5 ALLERGY STATUS TO NARCOTIC AGENT STATUS 12/05/2017 ANDREEA WASHINGTON DO Ot Z88.8 ALLERGY STATUS TO OTH DRUG/MEDS/BIOL SUB 12/06/2017 CAIN [place] DOA K Ot E11.9 TYPE 2 DIABETES MELLITUS WITHOUT COMPLIC 12/06/2017 CAIN [place] DOA K Ot E66.01 MORBID (SEVERE) OBESITY DUE TO EXCESS CA 12/06/2017 FELIX PICKETT ANDREEA K Ot G43.909 MIGRAINE, UNSP, NOT INTRACTABLE, WITHOUT 12/06/2017 FELIX DO ANDREEA K Ot I10 ESSENTIAL (PRIMARY) HYPERTENSION 12/06/2017 FELIX DO ANDREEA K Ot R10.32 LEFT LOWER QUADRANT PAIN 12/06/2017 FELIX DO ANDREEA K Ot R11.2 NAUSEA WITH VOMITING, UNSPECIFIED 12/06/2017 FELIX DO ANDREEA K Ot R19.7 DIARRHEA, UNSPECIFIED 12/06/2017 FELIX DOCAINA K Ot Z68.43 BODY MASS INDEX (BMI) 50-59.9 , ADULT 12/06/2017 FELIX CAIN PICKETTA K Ot Z82.49 FAMILY HX OF ISCHEM HEART DIS AND OTH DI 12/06/2017 ANDREEA WASHINGTON DO K Ot Z87.01 PERSONAL HISTORY OF PNEUMONIA (RECURRENT 12/06/2017 ANDREEA WASHINGTON DO Ot Z87.59 PERSONAL HISTORY OF COMP OF PREG, CHLDBR 12/06/2017 ANDREEA WASHINGTON DO Ot Z88.5 ALLERGY STATUS TO NARCOTIC AGENT STATUS 12/06/2017 ANDREEA WASHINGTON DO Ot Z88.8 ALLERGY STATUS TO OTH DRUG/MEDS/BIOL SUB 01/02/2018 LAN ERICKSON, EDUARDO Andrea Ot Z01.818 ENCOUNTER FOR OTHER PREPROCEDURAL EXAMIN 01/03/2018 LAN ERICKSON, EDUARDO Andrea Ot Z01.818 ENCOUNTER FOR OTHER PREPROCEDURAL EXAMIN 01/31/2018 DELMAN DO, EVELINA B Ot K62.5 HEMORRHAGE OF ANUS AND RECTUM 01/31/2018 DELMAN DO, EVELINA B Ot R19.7 DIARRHEA, UNSPECIFIED 01/31/2018 DELMAN DO, EVELINA B Ot Z01.818 ENCOUNTER FOR OTHER PREPROCEDURAL EXAMIN 02/01/2018 DELMAN DO, EVELINA B Ot K62.5 HEMORRHAGE OF ANUS AND RECTUM 02/01/2018 DELMAN DO, EVELINA B Ot R19.7 DIARRHEA, UNSPECIFIED 02/01/2018 DELMAN DO, EVELINA B Ot Z01.818 ENCOUNTER FOR OTHER PREPROCEDURAL EXAMIN 02/01/2018 DELMAN DO, EVELINA B Ot K62.5 HEMORRHAGE OF ANUS AND RECTUM 02/01/2018 DELMAN DO, EVELINA B Ot R19.7 DIARRHEA, UNSPECIFIED 02/01/2018 DELMAN DO, EVELINA B Ot Z01.818 ENCOUNTER FOR OTHER PREPROCEDURAL EXAMIN 02/01/2018 DELMAN DO, EVELINA B Ot K62.5 HEMORRHAGE OF ANUS AND RECTUM 02/01/2018 DELMAN DO, EVELINA B Ot R19.7 DIARRHEA, UNSPECIFIED 02/01/2018 DELMAN DO, EVELINA B Ot Z01.818 ENCOUNTER FOR OTHER PREPROCEDURAL EXAMIN 02/01/2018 DELMAN DO, EVELINA B Ot K62.5 HEMORRHAGE OF ANUS AND RECTUM 02/01/2018 DELMAN DO, EVELINA B Ot R19.7 DIARRHEA, UNSPECIFIED 02/01/2018 DELMAN DO, EVELINA B Ot Z01.818 ENCOUNTER FOR OTHER PREPROCEDURAL EXAMIN 02/02/2018 DELMAN DO, EVELINA B Ot K62.5 HEMORRHAGE OF ANUS AND RECTUM 02/02/2018 ALMAZ MEYERS DOIC B Ot R19.7 DIARRHEA, UNSPECIFIED 02/02/2018 EVELINA MEYERS DO B Ot Z01.818 ENCOUNTER FOR OTHER PREPROCEDURAL EXAMIN 02/07/2018 EVELINA MEYERS DO B Ot K62.5 HEMORRHAGE OF ANUS AND RECTUM 02/07/2018 ALMAZ MEYERS DOIC B Ot R19.7 DIARRHEA, UNSPECIFIED 02/07/2018 ALMAZ MEYERS DOIC B Ot Z01.818 ENCOUNTER FOR OTHER PREPROCEDURAL EXAMIN 02/08/2018 ALMAZ MEYERS DOIC B Ot E66.01 MORBID (SEVERE) OBESITY DUE TO EXCESS CA 02/08/2018 ALMAZ MEYERS DOIC B Ot G47.33 OBSTRUCTIVE SLEEP APNEA (ADULT) (PEDIATR 02/08/2018 LUIGI PICKETT EVELINA B Ot I10 ESSENTIAL (PRIMARY) HYPERTENSION 02/08/2018 LUIGI PICKETT EVELINA B Ot K29.70 GASTRITIS, UNSPECIFIED, WITHOUT BLEEDING 02/08/2018 LUIGI PICKETT EVELINA B Ot K29.80 DUODENITIS WITHOUT BLEEDING 02/08/2018 ALMAZ MEYERS DOIC B Ot K44.9 DIAPHRAGMATIC HERNIA WITHOUT OBSTRUCTION 02/08/2018 ALMAZ MEYERS DOIC B Ot K57.30 DVRTCLOS OF LG INT W/O PERFORATION OR AB 02/08/2018 EVELINA MEYERS DO B Ot K63.5 POLYP OF COLON 02/08/2018 ALMAZ MEYERS DOIC B Ot K64.8 OTHER HEMORRHOIDS 02/08/2018 EVELINA MEYERS DO B Ot Z68.43 BODY MASS INDEX (BMI) 50-59.9 , ADULT 02/13/2018 ALMAZ MEYERS DOIC B Ot E66.01 MORBID (SEVERE) OBESITY DUE TO EXCESS CA 02/13/2018 LUIGI PICKETT EVELINA B Ot G47.33 OBSTRUCTIVE SLEEP APNEA (ADULT) (PEDIATR 02/13/2018 LUIGI PICKETT EVELINA B Ot I10 ESSENTIAL (PRIMARY) HYPERTENSION 02/13/2018 LUIGI PICKETT EVELINA B Ot K29.70 GASTRITIS, UNSPECIFIED, WITHOUT BLEEDING 02/13/2018 LUIGI PICKETT EVELINA B Ot K29.80 DUODENITIS WITHOUT BLEEDING 02/13/2018 LUIGI PICKETT EVELINA B Ot K44.9 DIAPHRAGMATIC HERNIA WITHOUT OBSTRUCTION 02/13/2018 EVELINA MEYERS DO Ot K57.30 DVRTCLOS OF LG INT W/O PERFORATION OR AB 02/13/2018 EVELINA MEYERS DO Ot K63.5 POLYP OF COLON 02/13/2018 EVELINA MEYERS DO Ot K64.8 OTHER HEMORRHOIDS 02/13/2018 EVELINA MEYERS DO Ot Z68.43 BODY MASS INDEX (BMI) 50-59.9 , ADULT 04/14/2018 CHRISTOFER ERICKSON, TRELL Ruiz Ot M17.12 UNILATERAL PRIMARY OSTEOARTHRITIS, LEFT 04/14/2018 CHRISTOFER ERICKSON, TRELL Ruiz Ot M47.816 SPONDYLOSIS W/O MYELOPATHY OR RADICULOPA 04/26/2018 TRELL BEAULIEU MD, Ot M17.12 UNILATERAL PRIMARY OSTEOARTHRITIS, LEFT 04/26/2018 CHRISTOFER ERICKSON, TRELL Ruiz Ot M47.816 SPONDYLOSIS W/O MYELOPATHY OR RADICULOPA 11/12/2018 CARISA KHAN Ot N85.2 HYPERTROPHY OF UTERUS 11/12/2018 CARY ANGLIN APRN Ot M79.605 PAIN IN LEFT LEG 11/12/2018 TRELL BEAULIEU MD Ot M17.12 UNILATERAL PRIMARY OSTEOARTHRITIS, LEFT 11/12/2018 TRELL BEAULIEU MD, Ot M47.816 SPONDYLOSIS W/O MYELOPATHY OR RADICULOPA 11/14/2018 ANDREEA WASHINGTON DO Ot E11.9 TYPE 2 DIABETES MELLITUS WITHOUT COMPLIC 11/14/2018 ANDREEA WASHINGTON DO Ot E66.01 MORBID (SEVERE) OBESITY DUE TO EXCESS CA 11/14/2018 ANDREEA WASHINGTON DO Ot I10 ESSENTIAL (PRIMARY) HYPERTENSION 11/14/2018 CAIN WASHINGTON DOA Swetha Ot K21.9 GASTRO-ESOPHAGEAL REFLUX DISEASE WITHOUT 11/14/2018 FELIXCAIN Carranza DOA Swetha Ot M79.605 PAIN IN LEFT LEG 11/14/2018 ANDREEA WASHINGTON DO Ot M79.662 PAIN IN LEFT LOWER LEG 11/14/2018 CAIN W[place] DOA Swetha Ot Z68.44 BODY MASS INDEX (BMI) 60.0-69.9, ADULT 11/14/2018 ANDREEA WASHINGTON DO Ot Z79.51 BUSINESS IMPROVEMENT MANAGER (CURRENT) USE OF INHALED STERO 11/14/2018 ANDREEA WASHINGTON DO K Ot Z79.84 BUSINESS IMPROVEMENT MANAGER (CURRENT) USE OF ORAL HYPOGLYC 11/14/2018 FELIX ANDREEA PICKETT Ot Z82.49 FAMILY HX OF ISCHEM HEART DIS AND OTH DI 11/14/2018 FELIX ANDREEA PICKETT Ot Z87.01 PERSONAL HISTORY OF PNEUMONIA (RECURRENT 11/14/2018 FELIX ANDREEA PICKETT Ot Z87.19 PERSONAL HISTORY OF OTHER DISEASES OF 11/14/2018 ANDREEA WASHINGTON DO Ot Z88.5 ALLERGY STATUS TO NARCOTIC AGENT STATUS 11/14/2018 [facility] Z88.8 ALLERGY STATUS TO OTH DRUG/MEDS/BIOL SUB 11/14/2018 FELIX ANDREEA PICKETT Ot Z98.890 OTHER SPECIFIED POSTPROCEDURAL STATES 11/18/2018 ANDREEA WASHINGTON DO Ot E11.9 TYPE 2 DIABETES MELLITUS WITHOUT COMPLIC 11/18/2018 ANDREEA WASHINGTON DO Ot E66.01 MORBID (SEVERE) OBESITY DUE TO EXCESS CA 11/18/2018 ANDREEA WASHINGTON DO Ot I10 ESSENTIAL (PRIMARY) HYPERTENSION 11/18/2018 [place] ANDREEA PICKETT Ot K21.9 GASTRO-ESOPHAGEAL REFLUX DISEASE WITHOUT 11/18/2018 FELIX ANDREEA PICKETT Ot M79.605 PAIN IN LEFT LEG 11/18/2018 [facility] M79.662 PAIN IN LEFT LOWER LEG 11/18/2018 [place] ANDREEA PICKETT Ot Z68.44 BODY MASS INDEX (BMI) 60.0-69.9, ADULT 11/18/2018 ANDREEA WASHINGTON DO Ot Z79.51 CARE HOME (CURRENT) USE OF INHALED STERO 11/18/2018 FELIX ANDREEA PICKETT Ot Z79.84 BUSINESS IMPROVEMENT MANAGER (CURRENT) USE OF ORAL HYPOGLYC 11/18/2018 FELIX ANDREEA PICKETT Ot Z82.49 FAMILY HX OF ISCHEM HEART DIS AND OTH DI 11/18/2018 FELIX ANDREEA PICKETT Ot Z87.01 PERSONAL HISTORY OF PNEUMONIA (RECURRENT 11/18/2018 FELIX ANDREEA PICKETT Ot Z87.19 PERSONAL HISTORY OF OTHER DISEASES OF 11/18/2018 FELIX ANDREEA PICKETT Ot Z88.5 ALLERGY STATUS TO NARCOTIC AGENT STATUS 11/18/2018 ANDREEA WASHINGTON DO Ot Z88.8 ALLERGY STATUS TO OTH DRUG/MEDS/BIOL SUB 11/18/2018 ANDREEA WASHINGTON DO Ot Z98.890 OTHER SPECIFIED POSTPROCEDURAL STATES Procedures Code Description [place] [address] PAP SMEAR 09/04/2012 Q0091 PAP SMEAR OBTAIN SMEAR 09/04/2012 43860 ROUTINE VENIPUNCTURE 11/22/2012 46910 A1C (IN-HOUSE) 11/22/2012 15766 CMP 11/22/2012 [id number] GFR CALC (RESULT ONLY) 11/22/2012 43962 TSH 11/22/2012 38057 EKG, TRACING (IN-HOUSE) 11/23/2012 32186 INSULIN LEVEL 11/23/[address] ABDOMEN W/ CONTRAST 05/16/2013 07438 US ABDOMEN ULTRASOUND, LIMITED (SPECIFY ORGAN) 06/20/2013 89251 ROUTINE VENIPUNCTURE 10/10/2013 22434 CBC 10/10/2013 [id number] GFR CALC (RESULT ONLY) 10/10/2013 77331 CMP 10/10/2013 63868 TSH 10/10/2013 14872 INSULIN LEVEL 10/10/2013 27422 STREP A (IN-HOUSE) 12/27/2013 73936 UA W/ CULTURE IF INDICATED 01/03/2014 20024 CULTURE URINE 01/05/2014 J1885 TORADOL INJ 03/08/2014 52809 THERAPUTIC INJ SQ/IM 03/08/2014 70314 ROUTINE VENIPUNCTURE 10/14/2014 77584 A1C (IN-HOUSE) 10/14/2014 76712 CMP 10/14/2014 [id number] GFR CALC (RESULT ONLY) 10/14/2014 21026 INSULIN LEVEL 10/14/2014 Results Test Result Range Complete blood count (CBC) with automated white blood cell (WBC) differential - 06/12/16 14:45 Blood leukocytes automated count (number/volume) 8.8 10*3/uL 4.3-11.0 Blood erythrocytes automated count (number/volume) 5.14 10*6/uL 4.35-5.85 Venous blood hemoglobin measurement (mass/volume) 13.1 g/dL 11.5-16.0 Blood hematocrit (volume fraction) 41 % 35-52 Automated erythrocyte mean corpuscular volume 79 [foz_us] 80-99 Automated erythrocyte mean corpuscular hemoglobin (mass per erythrocyte) 26 pg 25-34 Automated erythrocyte mean corpuscular hemoglobin concentration measurement (mass/volume) 32 g/dL 32-36 Automated erythrocyte distribution width ratio 15.0 % 10.0- 14.5 Automated blood platelet count (count/volume) 320 10*3/uL 130-400 Automated blood platelet mean volume measurement 9.4 [foz_us] 7.4-10.4 Automated blood neutrophils/100 leukocytes 62 % 42-75 Automated blood lymphocytes/100 leukocytes 25 % 12-44 Blood monocytes/100 leukocytes 9 % 0-12 Automated blood eosinophils/100 leukocytes 3 % 0-10 Automated blood basophils/100 leukocytes 0 % 0-10 Blood neutrophils automated count (number/volume) 5.5 10*3 1.8-7.8 Blood lymphocytes automated count (number/volume) 2.2 10*3 1.0-4.0 Blood monocytes automated count (number/volume) 0.8 10*3 0.0- 1.0 Automated eosinophil count 0.3 10*3/uL 0.0-0.3 Automated blood basophil count (count/volume) 0.0 10*3/uL 0.0-0.1 Serum or plasma choriogonadotropin ( test) detection - 06/12/16 14:45 Serum or plasma choriogonadotropin ( test) detection NEGATIVE NEGATIVE Comprehensive metabolic panel - 06/12/16 14:45 Serum or plasma sodium measurement (moles/volume) 139 mmol/L 135-145 Serum or plasma potassium measurement (moles/volume) 4.0 mmol/L 3.6-5.0 Serum or plasma chloride measurement (moles/volume) 105 mmol/L 98-107 Carbon dioxide 23 mmol/L 21-32 Serum or plasma anion gap determination (moles/volume) 11 mmol/L 5-14 Serum or plasma urea nitrogen measurement (mass/volume) 7 mg/dL 7-18 Serum or plasma creatinine measurement (mass/volume) 0.72 mg/dL 0.60-1.30 Serum or plasma urea nitrogen/creatinine mass ratio 10 NRG Serum or plasma creatinine measurement with calculation of estimated glomerular filtration rate > NRG Serum or plasma glucose measurement (mass/volume) 104 mg/dL 70-105 Serum or plasma calcium measurement (mass/volume) 9.1 mg/dL 8.5-10.1 Serum or plasma total bilirubin measurement (mass/volume) 0.7 mg/dL 0.1-1.0 Serum or plasma alkaline phosphatase measurement (enzymatic activity/volume) 48 U/L 40-136 Serum or plasma aspartate aminotransferase measurement (enzymatic activity/volume) 20 U/L 5-34 Serum or plasma alanine aminotransferase measurement (enzymatic activity/volume) 15 U/L 0-55 Serum or plasma protein measurement (mass/volume) 7.6 g/dL 6.4-8.2 Serum or plasma albumin measurement (mass/volume) 4.3 g/dL 3.2-4.5 Magnesium - 06/12/16 14:45 Magnesium 1.9 mg/dL 1.8-2.4 Serum or plasma amylase measurement (enzymatic activity/volume) - 06/12/16 14:45 Serum or plasma amylase measurement (enzymatic activity/volume) 49 U/L 25-125 PT panel in platelet poor plasma by coagulation assay - 06/12/16 14:45 Prothrombin time (PT) in platelet poor plasma by coagulation assay 14.2 s 12.2-14.7 INR in platelet poor plasma or blood by coagulation assay 1.1 0.8-1.4 Activated partial thromboplastin time (aPTT) in platelet poor plasma bycoagulation assay - 06/12/16 14:45 Activated partial thromboplastin time (aPTT) in platelet poor plasma bycoagulation assay 37 s 24-35 Serum or plasma troponin i.cardiac measurement (mass/volume) - 06/12/16 14:45 Serum or plasma troponin i.cardiac measurement (mass/volume) < ng/mL <0.30 Myoglobin, serum - 06/12/16 14:45 Myoglobin, serum 29.8 ng/mL 10.0-92.0 Complete urinalysis with reflex to culture - 06/12/16 17:00 Urine color determination YELLOW NRG Urine clarity determination SLIGHTLY CLOUDY NRG Urine pH measurement by test strip 6 5-9 Specific gravity of urine by test strip 1.020 1.016-1.022 Urine protein assay by test strip, semi-quantitative 2+ NEGATIVE Urine glucose detection by automated test strip NEGATIVE NEGATIVE Erythrocytes detection in urine sediment by light microscopy NEGATIVE NEGATIVE Urine ketones detection by automated test strip NEGATIVE NEGATIVE Urine nitrite detection by test strip POSITIVE NEGATIVE Urine total bilirubin detection by test strip NEGATIVE NEGATIVE Urine urobilinogen measurement by automated test strip (mass/volume) 1 mg/dL NORMAL Urine leukocyte esterase detection by dipstick 1+ NEGATIVE Automated urine sediment erythrocyte count by microscopy (number/high power field) NONE NRG Automated urine sediment leukocyte count by microscopy (number/high power field) RARE NRG Bacteria detection in urine sediment by light microscopy TRACE NRG Squamous epithelial cells detection in urine sediment by light microscopy 2-5 NRG Crystals detection in urine sediment by light microscopy NONE NRG Casts detection in urine sediment by light microscopy NONE NRG Mucus detection in urine sediment by light microscopy NEGATIVE NRG Complete urinalysis with reflex to culture YES NRG Bacterial urine culture - 06/12/16 17:00 Bacterial urine culture [id number] NRG COLONY COUNT 10,000/ML - 100,000/ML NRG FTX;REPORTABLE SENSITIVITY REPORTED AT 1621, 06-13-16 NR URINE CULTURE RESULTS PLUS NR Bacterial susceptibility panel - 06/12/16 17:00 Gentamicin susceptibility test by minimum inhibitory concentration <= NRG Trimethoprim/sulfamethoxazole susceptibility test by minimum inhibitoryconcentration <= NRG Ampicillin susceptibility test by minimum inhibitory concentration >= NRG Tobramycin susceptibility test by minimum inhibitory concentration <= NRG Cefazolin susceptibility test by minimum inhibitory concentration <= NRG Ceftriaxone susceptibility test by minimum inhibitory concentration <= NRG Ampicillin/sulbactam susceptibility test by minimum inhibitory concentration 16 NRG Piperacillin/tazobactam susceptibility test by minimum inhibitory concentration <= NRG Ciprofloxacin susceptibility test by minimum inhibitory concentration <= NRG Meropenem susceptibility test by minimum inhibitory concentration <= NRG Nitrofurantoin susceptibility test by minimum inhibitory concentration <= NRG Aztreonam susceptibility test by minimum inhibitory concentration <= NRG Extended spectrum beta lactamase (ESBL) producing bacteria susceptibility test by minimum inhibitory concentration - NRG Serum or plasma troponin i.cardiac measurement (mass/volume) - 06/12/16 21:05 Serum or plasma troponin i.cardiac measurement (mass/volume) < ng/mL <0.30 Complete blood count (CBC) with automated white blood cell (WBC) differential - 06/13/16 02:45 Blood leukocytes automated count (number/volume) 7.0 10*3/uL 4.3-11.0 Blood erythrocytes automated count (number/volume) 4.65 10*6/uL 4.35-5.85 Venous blood hemoglobin measurement (mass/volume) 11.9 g/dL 11.5-16.0 Blood hematocrit (volume fraction) 37 % 35-52 Automated erythrocyte mean corpuscular volume 80 [foz_us] 80-99 Automated erythrocyte mean corpuscular hemoglobin (mass per erythrocyte) 26 pg 25-34 Automated erythrocyte mean corpuscular hemoglobin concentration measurement (mass/volume) 32 g/dL 32-36 Automated erythrocyte distribution width ratio 15.2 % 10.0- 14.5 Automated blood platelet count (count/volume) 257 10*3/uL 130-400 Automated blood platelet mean volume measurement 9.1 [foz_us] 7.4-10.4 Automated blood neutrophils/100 leukocytes 58 % 42-75 Automated blood lymphocytes/100 leukocytes 30 % 12-44 Blood monocytes/100 leukocytes 10 % 0-12 Automated blood eosinophils/100 leukocytes 3 % 0-10 Automated blood basophils/100 leukocytes 0 % 0-10 Blood neutrophils automated count (number/volume) 4.0 10*3 1.8-7.8 Blood lymphocytes automated count (number/volume) 2.1 10*3 1.0-4.0 Blood monocytes automated count (number/volume) 0.7 10*3 0.0- 1.0 Automated eosinophil count 0.2 10*3/uL 0.0-0.3 Automated blood basophil count (count/volume) 0.0 10*3/uL 0.0-0.1 Serum or plasma troponin i.cardiac measurement (mass/volume) - 06/13/16 02:45 Serum or plasma troponin i.cardiac measurement (mass/volume) < ng/mL <0.30 Comprehensive metabolic panel - 06/13/16 02:45 Serum or plasma sodium measurement (moles/volume) 138 mmol/L 135-145 Serum or plasma potassium measurement (moles/volume) 3.7 mmol/L 3.6-5.0 Serum or plasma chloride measurement (moles/volume) 106 mmol/L 98-107 Carbon dioxide 23 mmol/L 21-32 Serum or plasma anion gap determination (moles/volume) 9 mmol/L 5-14 Serum or plasma urea nitrogen measurement (mass/volume) 7 mg/dL 7-18 Serum or plasma creatinine measurement (mass/volume) 0.67 mg/dL 0.60-1.30 Serum or plasma urea nitrogen/creatinine mass ratio 10 NRG Serum or plasma creatinine measurement with calculation of estimated glomerular filtration rate > NRG Serum or plasma glucose measurement (mass/volume) 88 mg/dL 70-105 Serum or plasma calcium measurement (mass/volume) 8.8 mg/dL 8.5-10.1 Serum or plasma total bilirubin measurement (mass/volume) 0.6 mg/dL 0.1-1.0 Serum or plasma alkaline phosphatase measurement (enzymatic activity/volume) 40 U/L 40-136 Serum or plasma aspartate aminotransferase measurement (enzymatic activity/volume) 17 U/L 5-34 Serum or plasma alanine aminotransferase measurement (enzymatic activity/volume) 13 U/L 0-55 Serum or plasma protein measurement (mass/volume) 6.3 g/dL 6.4-8.2 Serum or plasma albumin measurement (mass/volume) 3.7 g/dL 3.2-4.5 Lipid 1996 panel - 06/13/16 02:45 Serum or plasma triglyceride measurement (mass/volume) 122 mg/dL <150 Serum or plasma cholesterol measurement (mass/volume) 134 mg/dL < 200 Serum or plasma cholesterol in HDL measurement (mass/volume) 31 mg/dL 40-60 Cholesterol in LDL [mass/volume] in serum or plasma by direct assay 88 mg/dL 1-129 Serum or plasma cholesterol in VLDL measurement (mass/volume) 24 mg/dL 5-40 Serum or plasma choriogonadotropin ( test) detection - 06/13/16 02:45 Serum or plasma choriogonadotropin ( test) detection NEGATIVE NEGATIVE Complete blood count (CBC) with automated white blood cell (WBC) differential - 06/14/16 04:20 Blood leukocytes automated count (number/volume) 10.8 10*3/uL 4.3-11.0 Blood erythrocytes automated count (number/volume) 4.94 10*6/uL 4.35-5.85 Venous blood hemoglobin measurement (mass/volume) 12.6 g/dL 11.5-16.0 Blood hematocrit (volume fraction) 39 % 35-52 Automated erythrocyte mean corpuscular volume 80 [foz_us] 80-99 Automated erythrocyte mean corpuscular hemoglobin (mass per erythrocyte) 26 pg 25-34 Automated erythrocyte mean corpuscular hemoglobin concentration measurement (mass/volume) 32 g/dL 32-36 Automated erythrocyte distribution width ratio 14.9 % 10.0- 14.5 Automated blood platelet count (count/volume) 277 10*3/uL 130-400 Automated blood platelet mean volume measurement 9.2 [foz_us] 7.4-10.4 Automated blood neutrophils/100 leukocytes 68 % 42-75 Automated blood lymphocytes/100 leukocytes 22 % 12-44 Blood monocytes/100 leukocytes 7 % 0-12 Automated blood eosinophils/100 leukocytes 3 % 0-10 Automated blood basophils/100 leukocytes 0 % 0-10 Blood neutrophils automated count (number/volume) 7.3 10*3 1.8-7.8 Blood lymphocytes automated count (number/volume) 2.4 10*3 1.0-4.0 Blood monocytes automated count (number/volume) 0.8 10*3 0.0- 1.0 Automated eosinophil count 0.3 10*3/uL 0.0-0.3 Automated blood basophil count (count/volume) 0.0 10*3/uL 0.0-0.1 Erythrocyte sedimentation rate by westergren method - 06/14/16 04:20 Erythrocyte sedimentation rate by westergren method 21 mm 0-20 Comprehensive metabolic panel - 06/14/16 04:20 Serum or plasma sodium measurement (moles/volume) 137 mmol/L 135-145 Serum or plasma potassium measurement (moles/volume) 3.8 mmol/L 3.6-5.0 Serum or plasma chloride measurement (moles/volume) 104 mmol/L 98-107 Carbon dioxide 24 mmol/L 21-32 Serum or plasma anion gap determination (moles/volume) 9 mmol/L 5-14 Serum or plasma urea nitrogen measurement (mass/volume) 7 mg/dL 7-18 Serum or plasma creatinine measurement (mass/volume) 0.75 mg/dL 0.60-1.30 Serum or plasma urea nitrogen/creatinine mass ratio 9 NRG Serum or plasma creatinine measurement with calculation of estimated glomerular filtration rate > NRG Serum or plasma glucose measurement (mass/volume) 90 mg/dL 70-105 Serum or plasma calcium measurement (mass/volume) 8.8 mg/dL 8.5-10.1 Serum or plasma total bilirubin measurement (mass/volume) 0.6 mg/dL 0.1-1.0 Serum or plasma alkaline phosphatase measurement (enzymatic activity/volume) 44 U/L 40-136 Serum or plasma aspartate aminotransferase measurement (enzymatic activity/volume) 18 U/L 5-34 Serum or plasma alanine aminotransferase measurement (enzymatic activity/volume) 13 U/L 0-55 Serum or plasma protein measurement (mass/volume) 6.9 g/dL 6.4-8.2 Serum or plasma albumin measurement (mass/volume) 4.0 g/dL 3.2-4.5 Magnesium - 06/14/16 04:20 Magnesium 2.1 mg/dL 1.8-2.4 THYROID STIMULATING HORMONE - 06/14/16 04:20 THYROID STIMULATING HORMONE 2.20 u[iU]/mL 0.35-4.94 Complete blood count (CBC) with automated white blood cell (WBC) differential - 07/13/16 14:46 Blood leukocytes automated count (number/volume) 13.1 10*3/uL 4.3-11.0 Blood erythrocytes automated count (number/volume) 5.33 10*6/uL 4.35-5.85 Venous blood hemoglobin measurement (mass/volume) 13.7 g/dL 11.5-16.0 Blood hematocrit (volume fraction) 41 % 35-52 Automated erythrocyte mean corpuscular volume 77 [foz_us] 80-99 Automated erythrocyte mean corpuscular hemoglobin (mass per erythrocyte) 26 pg 25-34 Automated erythrocyte mean corpuscular hemoglobin concentration measurement (mass/volume) 33 g/dL 32-36 Automated erythrocyte distribution width ratio 15.0 % 10.0- 14.5 Automated blood platelet count (count/volume) 250 10*3/uL 130-400 Automated blood platelet mean volume measurement 9.3 [foz_us] 7.4-10.4 Automated blood neutrophils/100 leukocytes 79 % 42-75 Automated blood lymphocytes/100 leukocytes 10 % 12-44 Blood monocytes/100 leukocytes 10 % 0-12 Automated blood eosinophils/100 leukocytes 0 % 0-10 Automated blood basophils/100 leukocytes 0 % 0-10 Blood neutrophils automated count (number/volume) 10.4 10*3 1.8-7.8 Blood lymphocytes automated count (number/volume) 1.3 10*3 1.0-4.0 Blood monocytes automated count (number/volume) 1.3 10*3 0.0- 1.0 Automated eosinophil count 0.0 10*3/uL 0.0-0.3 Automated blood basophil count (count/volume) 0.0 10*3/uL 0.0-0.1 Serum heterophile antibody titer - 07/13/16 14:46 Serum heterophile antibody titer NEGATIVE NEGATIVE Blood lactic acid measurement (moles/volume) - 07/13/16 14:46 Blood lactic acid measurement (moles/volume) 1.0 mmol/L 0.5- 2.0 Whole blood basic metabolic panel - 07/13/16 14:46 Serum or plasma sodium measurement (moles/volume) 133 mmol/L 135-145 Serum or plasma potassium measurement (moles/volume) 4.0 mmol/L 3.6-5.0 Serum or plasma chloride measurement (moles/volume) 100 mmol/L 98-107 Carbon dioxide 23 mmol/L 21-32 Serum or plasma anion gap determination (moles/volume) 10 mmol/L 5-14 Serum or plasma urea nitrogen measurement (mass/volume) 6 mg/dL 7-18 Serum or plasma creatinine measurement (mass/volume) 0.77 mg/dL 0.60-1.30 Serum or plasma urea nitrogen/creatinine mass ratio 8 NRG Serum or plasma creatinine measurement with calculation of estimated glomerular filtration rate > NRG Serum or plasma glucose measurement (mass/volume) 108 mg/dL 70-105 Serum or plasma calcium measurement (mass/volume) 9.3 mg/dL 8.5-10.1 Serum or plasma C reactive protein measurement (mass/volume) - 07/13/16 14:46 Serum or plasma C reactive protein measurement (mass/volume) 10.40 mg/dL 0.00-0.50 Urine beta human chorionic gonadotropin (hCG) measurement - 02/05/17 10:30 Urine beta human chorionic gonadotropin (hCG) measurement NEGATIVE NEGATIVE Complete urinalysis with reflex to culture - 02/05/17 10:30 Urine color determination YELLOW NRG Urine clarity determination VERY CLOUDY NRG Urine pH measurement by test strip 5 5-9 Specific gravity of urine by test strip 1.020 1.016-1.022 Urine protein assay by test strip, semi-quantitative NEGATIVE NEGATIVE Urine glucose detection by automated test strip NEGATIVE NEGATIVE Erythrocytes detection in urine sediment by light microscopy NEGATIVE NEGATIVE Urine ketones detection by automated test strip NEGATIVE NEGATIVE Urine nitrite detection by test strip NEGATIVE NEGATIVE Urine total bilirubin detection by test strip NEGATIVE NEGATIVE Urine urobilinogen measurement by automated test strip (mass/volume) NORMAL NORMAL Urine leukocyte esterase detection by dipstick 2+ NEGATIVE Automated urine sediment erythrocyte count by microscopy (number/high power field) NONE NRG Automated urine sediment leukocyte count by microscopy (number/high power field) [HPF] NRG Bacteria detection in urine sediment by light microscopy LARGE NRG Crystals detection in urine sediment by light microscopy PRESENT NRG Casts detection in urine sediment by light microscopy NONE NRG Mucus detection in urine sediment by light microscopy SMALL NRG Complete urinalysis with reflex to culture YES NRG Amorphous sediment detection in urine sediment by light microscopy MOD CASSANDRA URATES NRG Bacterial urine culture - 02/05/17 10:30 URINE CULTURE RESULTS MIXED DENISSE <10,000/ML NRG Complete blood count (CBC) with automated white blood cell (WBC) differential - 02/05/17 10:46 Blood leukocytes automated count (number/volume) 7.5 10*3/uL 4.3-11.0 Blood erythrocytes automated count (number/volume) 5.20 10*6/uL 4.35-5.85 Venous blood hemoglobin measurement (mass/volume) 12.6 g/dL 11.5-16.0 Blood hematocrit (volume fraction) 40 % 35-52 Automated erythrocyte mean corpuscular volume 77 [foz_us] 80-99 Automated erythrocyte mean corpuscular hemoglobin (mass per erythrocyte) 24 pg 25-34 Automated erythrocyte mean corpuscular hemoglobin concentration measurement (mass/volume) 31 g/dL 32-36 Automated erythrocyte distribution width ratio 15.0 % 10.0- 14.5 Automated blood platelet count (count/volume) 340 10*3/uL 130-400 Automated blood platelet mean volume measurement 9.3 [foz_us] 7.4-10.4 Automated blood neutrophils/100 leukocytes 55 % 42-75 Automated blood lymphocytes/100 leukocytes 30 % 12-44 Blood monocytes/100 leukocytes 8 % 0-12 Automated blood eosinophils/100 leukocytes 7 % 0-10 Automated blood basophils/100 leukocytes 0 % 0-10 Blood neutrophils automated count (number/volume) 4.1 10*3 1.8-7.8 Blood lymphocytes automated count (number/volume) 2.3 10*3 1.0-4.0 Blood monocytes automated count (number/volume) 0.6 10*3 0.0- 1.0 Automated eosinophil count 0.5 10*3/uL 0.0-0.3 Automated blood basophil count (count/volume) 0.0 10*3/uL 0.0-0.1 Comprehensive metabolic panel - 02/05/17 10:46 Serum or plasma sodium measurement (moles/volume) 139 mmol/L 135-145 Serum or plasma potassium measurement (moles/volume) 4.3 mmol/L 3.6-5.0 Serum or plasma chloride measurement (moles/volume) 107 mmol/L 98-107 Carbon dioxide 23 mmol/L 21-32 Serum or plasma anion gap determination (moles/volume) 9 mmol/L 5-14 Serum or plasma urea nitrogen measurement (mass/volume) 7 mg/dL 7-18 Serum or plasma creatinine measurement (mass/volume) 0.75 mg/dL 0.60-1.30 Serum or plasma urea nitrogen/creatinine mass ratio 9 NRG Serum or plasma creatinine measurement with calculation of estimated glomerular filtration rate > NRG Serum or plasma glucose measurement (mass/volume) 100 mg/dL 70-105 Serum or plasma calcium measurement (mass/volume) 9.4 mg/dL 8.5-10.1 Serum or plasma total bilirubin measurement (mass/volume) 0.4 mg/dL 0.1-1.0 Serum or plasma alkaline phosphatase measurement (enzymatic activity/volume) 51 U/L 40-136 Serum or plasma aspartate aminotransferase measurement (enzymatic activity/volume) 17 U/L 5-34 Serum or plasma alanine aminotransferase measurement (enzymatic activity/volume) 17 U/L 0-55 Serum or plasma protein measurement (mass/volume) 7.6 g/dL 6.4-8.2 Serum or plasma albumin measurement (mass/volume) 4.1 g/dL 3.2-4.5 Complete blood count (CBC) with automated white blood cell (WBC) differential - 02/06/17 23:30 Blood leukocytes automated count (number/volume) 9.8 10*3/uL 4.3-11.0 Blood erythrocytes automated count (number/volume) 4.90 10*6/uL 4.35-5.85 Venous blood hemoglobin measurement (mass/volume) 11.9 g/dL 11.5-16.0 Blood hematocrit (volume fraction) 38 % 35-52 Automated erythrocyte mean corpuscular volume 77 [foz_us] 80-99 Automated erythrocyte mean corpuscular hemoglobin (mass per erythrocyte) 24 pg 25-34 Automated erythrocyte mean corpuscular hemoglobin concentration measurement (mass/volume) 31 g/dL 32-36 Automated erythrocyte distribution width ratio 15.0 % 10.0- 14.5 Automated blood platelet count (count/volume) 345 10*3/uL 130-400 Automated blood platelet mean volume measurement 9.6 [foz_us] 7.4-10.4 Automated blood neutrophils/100 leukocytes 64 % 42-75 Automated blood lymphocytes/100 leukocytes 22 % 12-44 Blood monocytes/100 leukocytes 9 % 0-12 Automated blood eosinophils/100 leukocytes 6 % 0-10 Automated blood basophils/100 leukocytes 0 % 0-10 Blood neutrophils automated count (number/volume) 6.3 10*3 1.8-7.8 Blood lymphocytes automated count (number/volume) 2.2 10*3 1.0-4.0 Blood monocytes automated count (number/volume) 0.8 10*3 0.0- 1.0 Automated eosinophil count 0.6 10*3/uL 0.0-0.3 Automated blood basophil count (count/volume) 0.0 10*3/uL 0.0-0.1 Comprehensive metabolic panel - 02/06/17 23:30 Serum or plasma sodium measurement (moles/volume) 138 mmol/L 135-145 Serum or plasma potassium measurement (moles/volume) 4.1 mmol/L 3.6-5.0 Serum or plasma chloride measurement (moles/volume) 105 mmol/L 98-107 Carbon dioxide 22 mmol/L 21-32 Serum or plasma anion gap determination (moles/volume) 11 mmol/L 5-14 Serum or plasma urea nitrogen measurement (mass/volume) 8 mg/dL 7-18 Serum or plasma creatinine measurement (mass/volume) 0.83 mg/dL 0.60-1.30 Serum or plasma urea nitrogen/creatinine mass ratio 10 NRG Serum or plasma creatinine measurement with calculation of estimated glomerular filtration rate > NRG Serum or plasma glucose measurement (mass/volume) 96 mg/dL 70-105 Serum or plasma calcium measurement (mass/volume) 9.0 mg/dL 8.5-10.1 Serum or plasma total bilirubin measurement (mass/volume) 0.3 mg/dL 0.1-1.0 Serum or plasma alkaline phosphatase measurement (enzymatic activity/volume) 48 U/L 40-136 Serum or plasma aspartate aminotransferase measurement (enzymatic activity/volume) 35 U/L 5-34 Serum or plasma alanine aminotransferase measurement (enzymatic activity/volume) 31 U/L 0-55 Serum or plasma protein measurement (mass/volume) 7.4 g/dL 6.4-8.2 Serum or plasma albumin measurement (mass/volume) 3.9 g/dL 3.2-4.5 Magnesium - 02/06/17 23:30 Magnesium 2.4 mg/dL 1.8-2.4 Serum or plasma troponin i.cardiac measurement (mass/volume) - 02/06/17 23:30 Serum or plasma troponin i.cardiac measurement (mass/volume) < ng/mL <0.30 Serum or plasma amylase measurement (enzymatic activity/volume) - 02/06/17 23:30 Serum or plasma amylase measurement (enzymatic activity/volume) 46 U/L 25-125 Serum or plasma lithium measurement (moles/volume) - 02/06/17 23:30 BNP level 19.6 pg/mL <100.0 Lipase - 02/06/17 23:30 Lipase 29 U/L 8-78 Complete urinalysis with reflex to culture - 02/06/17 23:41 Urine color determination YELLOW NRG Urine clarity determination VERY CLOUDY NRG Urine pH measurement by test strip 6 5-9 Specific gravity of urine by test strip 1.010 1.016-1.022 Urine protein assay by test strip, semi-quantitative NEGATIVE NEGATIVE Urine glucose detection by automated test strip NEGATIVE NEGATIVE Erythrocytes detection in urine sediment by light microscopy 2+ NEGATIVE Urine ketones detection by automated test strip NEGATIVE NEGATIVE Urine nitrite detection by test strip NEGATIVE NEGATIVE Urine total bilirubin detection by test strip NEGATIVE NEGATIVE Urine urobilinogen measurement by automated test strip (mass/volume) NORMAL NORMAL Urine leukocyte esterase detection by dipstick 2+ NEGATIVE Automated urine sediment erythrocyte count by microscopy (number/high power field) RARE NRG Automated urine sediment leukocyte count by microscopy (number/high power field) [HPF] NRG Bacteria detection in urine sediment by light microscopy LARGE NRG Squamous epithelial cells detection in urine sediment by light microscopy 10-25 NRG Crystals detection in urine sediment by light microscopy NONE NRG Casts detection in urine sediment by light microscopy NONE NRG Mucus detection in urine sediment by light microscopy NEGATIVE NRG Complete urinalysis with reflex to culture YES NRG Bacterial urine culture - 02/06/17 23:41 Bacterial urine culture [id number] NRG COLONY COUNT >100,000/ML NRG FTX;REPORTABLE PLUS, NRG FREE TEXT ENTRY 2 MIXED DENISSE <10,000/ML NRG CULTURE, URINE - 05/15/17 15:02 Urine Culture, Routine Final report NRG Result 1 NRG CMP - 07/07/17 13:21 GLUCOSE 82 mg/dL 65-99 UREA NITROGEN (BUN) 12 mg/dL 7-25 CREATININE 0.70 mg/dL 0.50-1.10 eGFR NON-AFR. [place] 108 mL/min/1.73m2 > OR=60 eGFR 125 mL/min/1.73m2 > OR=60 BUN/CREATININE RATIO NOT APPLICABLE (calc) 6-22 SODIUM 137 mmol/L 135-146 POTASSIUM 4.6 mmol/L 3.5-5.3 CHLORIDE 101 mmol/L 98-110 CARBON DIOXIDE 28 mmol/L 20-31 CALCIUM 9.6 mg/dL 8.6-10.2 PROTEIN, TOTAL 7.2 g/dL 6.1-8.1 ALBUMIN 4.2 g/dL 3.6-5.1 GLOBULIN 3.0 g/dL (calc) 1.9-3.7 ALBUMIN/GLOBULIN RATIO 1.4 (calc) 1.0-2.5 BILIRUBIN, TOTAL 0.4 mg/dL 0.2-1.2 ALKALINE PHOSPHATASE 47 U/L 33-115 AST 15 U/L 10-30 ALT 10 U/L 6-29 Lipase - 09/08/17 17:00 Lipase 28 U/L 8-78 Complete blood count (CBC) with automated white blood cell (WBC) differential - 09/08/17 17:52 Blood leukocytes automated count (number/volume) 9.2 10*3/uL 4.3-11.0 Blood erythrocytes automated count (number/volume) 5.05 10*6/uL 4.35-5.85 Venous blood hemoglobin measurement (mass/volume) 12.0 g/dL 11.5-16.0 Blood hematocrit (volume fraction) 37 % 35-52 Automated erythrocyte mean corpuscular volume 74 [foz_us] 80-99 Automated erythrocyte mean corpuscular hemoglobin (mass per erythrocyte) 24 pg 25-34 Automated erythrocyte mean corpuscular hemoglobin concentration measurement (mass/volume) 32 g/dL 32-36 Automated erythrocyte distribution width ratio 15.8 % 10.0- 14.5 Automated blood platelet count (count/volume) 334 10*3/uL 130-400 Automated blood platelet mean volume measurement 8.8 [foz_us] 7.4-10.4 Automated blood neutrophils/100 leukocytes 64 % 42-75 Automated blood lymphocytes/100 leukocytes 24 % 12-44 Blood monocytes/100 leukocytes 8 % 0-12 Automated blood eosinophils/100 leukocytes 3 % 0-10 Automated blood basophils/100 leukocytes 0 % 0-10 Blood neutrophils automated count (number/volume) 5.9 10*3 1.8-7.8 Blood lymphocytes automated count (number/volume) 2.3 10*3 1.0-4.0 Blood monocytes automated count (number/volume) 0.8 10*3 0.0- 1.0 Automated eosinophil count 0.3 10*3/uL 0.0-0.3 Automated blood basophil count (count/volume) 0.0 10*3/uL 0.0-0.1 Comprehensive metabolic panel - 09/08/17 17:52 Serum or plasma sodium measurement (moles/volume) 138 mmol/L 135-145 Serum or plasma potassium measurement (moles/volume) 4.2 mmol/L 3.6-5.0 Serum or plasma chloride measurement (moles/volume) 103 mmol/L 98-107 Carbon dioxide 23 mmol/L 21-32 Serum or plasma anion gap determination (moles/volume) 12 mmol/L 5-14 Serum or plasma urea nitrogen measurement (mass/volume) 10 mg/dL 7-18 Serum or plasma creatinine measurement (mass/volume) 0.75 mg/dL 0.60-1.30 Serum or plasma urea nitrogen/creatinine mass ratio 13 NRG Serum or plasma creatinine measurement with calculation of estimated glomerular filtration rate > NRG Serum or plasma glucose measurement (mass/volume) 109 mg/dL 70-105 Serum or plasma calcium measurement (mass/volume) 9.7 mg/dL 8.5-10.1 Serum or plasma total bilirubin measurement (mass/volume) 0.5 mg/dL 0.1-1.0 Serum or plasma alkaline phosphatase measurement (enzymatic activity/volume) 47 U/L 40-136 Serum or plasma aspartate aminotransferase measurement (enzymatic activity/volume) 19 U/L 5-34 Serum or plasma alanine aminotransferase measurement (enzymatic activity/volume) 13 U/L 0-55 Serum or plasma protein measurement (mass/volume) 7.7 g/dL 6.4-8.2 Serum or plasma albumin measurement (mass/volume) 4.0 g/dL 3.2-4.5 Serum or plasma troponin i.cardiac measurement (mass/volume) - 09/08/17 17:52 Serum or plasma troponin i.cardiac measurement (mass/volume) < ng/mL <0.30 Complete urinalysis with reflex to culture - 09/08/17 18:45 Urine color determination YELLOW NRG Urine clarity determination CLEAR NRG Urine pH measurement by test strip 8 5-9 Specific gravity of urine by test strip 1.015 1.016-1.022 Urine protein assay by test strip, semi-quantitative NEGATIVE NEGATIVE Urine glucose detection by automated test strip NEGATIVE NEGATIVE Erythrocytes detection in urine sediment by light microscopy NEGATIVE NEGATIVE Urine ketones detection by automated test strip NEGATIVE NEGATIVE Urine nitrite detection by test strip NEGATIVE NEGATIVE Urine total bilirubin detection by test strip NEGATIVE NEGATIVE Urine urobilinogen measurement by automated test strip (mass/volume) NORMAL NORMAL Urine leukocyte esterase detection by dipstick 1+ NEGATIVE Automated urine sediment erythrocyte count by microscopy (number/high power field) NONE NRG Automated urine sediment leukocyte count by microscopy (number/high power field) [HPF] NRG Bacteria detection in urine sediment by light microscopy MODERATE NRG Squamous epithelial cells detection in urine sediment by light microscopy 10-25 NRG Crystals detection in urine sediment by light microscopy NONE NRG Casts detection in urine sediment by light microscopy NONE NRG Mucus detection in urine sediment by light microscopy NEGATIVE NRG Complete urinalysis with reflex to culture NO NRG CBC - 09/12/17 10:20 WHITE BLOOD CELL COUNT 8.1 Thousand/uL 3.8-10.8 RED BLOOD CELL COUNT 5.54 Million/uL 3.80-5.10 HEMOGLOBIN 12.8 g/dL 11.7-15.5 HEMATOCRIT 41.6 % 35.0-45.0 MCV 75.1 fL 80.0-100.0 MCH 23.1 pg 27.0-33.0 MCHC 30.8 g/dL 32.0-36.0 RDW 14.9 % 11.0-15.0 PLATELET COUNT 412 Thousand/uL 140-400 MPV 9.4 fL 7.5-12.5 ABSOLUTE NEUTROPHILS 5030 cells/uL [id number] ABSOLUTE LYMPHOCYTES 2155 cells/uL [id number] ABSOLUTE MONOCYTES 591 cells/uL 200-950 ABSOLUTE EOSINOPHILS 284 cells/uL 15-500 ABSOLUTE BASOPHILS 41 cells/uL 0-200 NEUTROPHILS 62.1 % NRG LYMPHOCYTES 26.6 % NRG MONOCYTES 7.3 % NRG EOSINOPHILS 3.5 % NRG BASOPHILS 0.5 % NRG Complete blood count (CBC) with automated white blood cell (WBC) differential - 09/13/17 17:27 Blood leukocytes automated count (number/volume) 10.6 10*3/uL 4.3-11.0 Blood erythrocytes automated count (number/volume) 5.42 10*6/uL 4.35-5.85 Venous blood hemoglobin measurement (mass/volume) 12.8 g/dL 11.5-16.0 Blood hematocrit (volume fraction) 40 % 35-52 Automated erythrocyte mean corpuscular volume 73 [foz_us] 80-99 Automated erythrocyte mean corpuscular hemoglobin (mass per erythrocyte) 24 pg 25-34 Automated erythrocyte mean corpuscular hemoglobin concentration measurement (mass/volume) 32 g/dL 32-36 Automated erythrocyte distribution width ratio 15.9 % 10.0- 14.5 Automated blood platelet count (count/volume) 390 10*3/uL 130-400 Automated blood platelet mean volume measurement 9.1 [foz_us] 7.4-10.4 Automated blood neutrophils/100 leukocytes 63 % 42-75 Automated blood lymphocytes/100 leukocytes 26 % 12-44 Blood monocytes/100 leukocytes 9 % 0-12 Automated blood eosinophils/100 leukocytes 2 % 0-10 Automated blood basophils/100 leukocytes 0 % 0-10 Blood neutrophils automated count (number/volume) 6.7 10*3 1.8-7.8 Blood lymphocytes automated count (number/volume) 2.7 10*3 1.0-4.0 Blood monocytes automated count (number/volume) 0.9 10*3 0.0- 1.0 Automated eosinophil count 0.2 10*3/uL 0.0-0.3 Automated blood basophil count (count/volume) 0.0 10*3/uL 0.0-0.1 Comprehensive metabolic panel - 09/13/17 17:27 Serum or plasma sodium measurement (moles/volume) 137 mmol/L 135-145 Serum or plasma potassium measurement (moles/volume) 3.7 mmol/L 3.6-5.0 Serum or plasma chloride measurement (moles/volume) 102 mmol/L 98-107 Carbon dioxide 25 mmol/L 21-32 Serum or plasma anion gap determination (moles/volume) 10 mmol/L 5-14 Serum or plasma urea nitrogen measurement (mass/volume) 8 mg/dL 7-18 Serum or plasma creatinine measurement (mass/volume) 0.85 mg/dL 0.60-1.30 Serum or plasma urea nitrogen/creatinine mass ratio 9 NRG Serum or plasma creatinine measurement with calculation of estimated glomerular filtration rate > NRG Serum or plasma glucose measurement (mass/volume) 100 mg/dL 70-105 Serum or plasma calcium measurement (mass/volume) 9.8 mg/dL 8.5-10.1 Serum or plasma total bilirubin measurement (mass/volume) 0.6 mg/dL 0.1-1.0 Serum or plasma alkaline phosphatase measurement (enzymatic activity/volume) 55 U/L 40-136 Serum or plasma aspartate aminotransferase measurement (enzymatic activity/volume) 17 U/L 5-34 Serum or plasma alanine aminotransferase measurement (enzymatic activity/volume) 18 U/L 0-55 Serum or plasma protein measurement (mass/volume) 8.4 g/dL 6.4-8.2 Serum or plasma albumin measurement (mass/volume) 4.5 g/dL 3.2-4.5 Lipase - 09/13/17 17:27 Lipase 24 U/L 8-78 Serum or plasma C reactive protein measurement (mass/volume) - 09/13/17 17:27 Serum or plasma C reactive protein measurement (mass/volume) 0.11 mg/dL 0.00-0.50 Serum or plasma ethanol measurement (mass/volume) - 09/13/17 17:27 Serum or plasma ethanol measurement (mass/volume) < mg/dL <10 Urine drug screening test - 09/13/17 19:06 Urine phencyclidine detection by screening method NEGATIVE NEGATIVE Urine benzodiazepines detection by screening method NEGATIVE NEGATIVE Urine cocaine detection NEGATIVE NEGATIVE Urine amphetamines detection by screening method NEGATIVE NEGATIVE Urine methamphetamine detection by screening method NEGATIVE NEGATIVE Urine cannabinoids detection by screening method NEGATIVE NEGATIVE Urine opiates detection by screening method NEGATIVE NEGATIVE Urine barbiturates detection NEGATIVE NEGATIVE Screening urine tricyclic antidepressants detection NEGATIVE NEGATIVE Urine methadone detection by screening method NEGATIVE NEGATIVE Urine oxycodone detection NEGATIVE NEGATIVE Urine propoxyphene detection NEGATIVE NEGATIVE Complete urinalysis with reflex to culture - 09/13/17 19:06 Urine color determination YELLOW NRG Urine clarity determination SLIGHTLY CLOUDY NRG Urine pH measurement by test strip 5 5-9 Specific gravity of urine by test strip 1.010 1.016-1.022 Urine protein assay by test strip, semi-quantitative 1+ NEGATIVE Urine glucose detection by automated test strip NEGATIVE NEGATIVE Erythrocytes detection in urine sediment by light microscopy NEGATIVE NEGATIVE Urine ketones detection by automated test strip 1+ NEGATIVE Urine nitrite detection by test strip NEGATIVE NEGATIVE Urine total bilirubin detection by test strip NEGATIVE NEGATIVE Urine urobilinogen measurement by automated test strip (mass/volume) NORMAL NORMAL Urine leukocyte esterase detection by dipstick 1+ NEGATIVE Automated urine sediment erythrocyte count by microscopy (number/high power field) NONE NRG Automated urine sediment leukocyte count by microscopy (number/high power field) [HPF] NRG Bacteria detection in urine sediment by light microscopy FEW NRG Squamous epithelial cells detection in urine sediment by light microscopy 25-50 NRG Crystals detection in urine sediment by light microscopy NONE NRG Casts detection in urine sediment by light microscopy NONE NRG Mucus detection in urine sediment by light microscopy NEGATIVE NRG Complete urinalysis with reflex to culture NO NRG CBC - 11/30/17 15:52 WHITE BLOOD CELL COUNT 7.1 Thousand/uL 3.8-10.8 RED BLOOD CELL COUNT 5.01 Million/uL 3.80-5.10 HEMOGLOBIN 11.4 g/dL 11.7-15.5 HEMATOCRIT 38.7 % 35.0-45.0 MCV 77.2 fL 80.0-100.0 MCH 22.8 pg 27.0-33.0 MCHC 29.5 g/dL 32.0-36.0 RDW 16.1 % 11.0-15.0 PLATELET COUNT 375 Thousand/uL 140-400 MPV 9.5 fL 7.5-12.5 ABSOLUTE NEUTROPHILS 3493 cells/uL 0443-7613 ABSOLUTE LYMPHOCYTES 2592 cells/uL 850-3900 ABSOLUTE MONOCYTES 618 cells/uL 200-950 ABSOLUTE EOSINOPHILS 348 cells/uL 15-500 ABSOLUTE BASOPHILS 50 cells/uL 0-200 NEUTROPHILS 49.2 % NRG LYMPHOCYTES 36.5 % NRG MONOCYTES 8.7 % NRG EOSINOPHILS 4.9 % NRG BASOPHILS 0.7 % NRG Complete blood count (CBC) with automated white blood cell (WBC) differential - 12/05/17 01:05 Blood leukocytes automated count (number/volume) 5.6 10*3/uL 4.3-11.0 Blood erythrocytes automated count (number/volume) 5.01 10*6/uL 4.35-5.85 Venous blood hemoglobin measurement (mass/volume) 11.9 g/dL 11.5-16.0 Blood hematocrit (volume fraction) 38 % 35-52 Automated erythrocyte mean corpuscular volume 76 [foz_us] 80-99 Automated erythrocyte mean corpuscular hemoglobin (mass per erythrocyte) 24 pg 25-34 Automated erythrocyte mean corpuscular hemoglobin concentration measurement (mass/volume) 31 g/dL 32-36 Automated erythrocyte distribution width ratio 16.7 % 10.0- 14.5 Automated blood platelet count (count/volume) 299 10*3/uL 130-400 Automated blood platelet mean volume measurement 9.0 [foz_us] 7.4-10.4 Automated blood neutrophils/100 leukocytes 65 % 42-75 Automated blood lymphocytes/100 leukocytes 19 % 12-44 Blood monocytes/100 leukocytes 10 % 0-12 Automated blood eosinophils/100 leukocytes 6 % 0-10 Automated blood basophils/100 leukocytes 0 % 0-10 Blood neutrophils automated count (number/volume) 3.7 10*3 1.8-7.8 Blood lymphocytes automated count (number/volume) 1.1 10*3 1.0-4.0 Blood monocytes automated count (number/volume) 0.6 10*3 0.0- 1.0 Automated eosinophil count 0.3 10*3/uL 0.0-0.3 Automated blood basophil count (count/volume) 0.0 10*3/uL 0.0-0.1 Comprehensive metabolic panel - 12/05/17 01:05 Serum or plasma sodium measurement (moles/volume) 140 mmol/L 135-145 Serum or plasma potassium measurement (moles/volume) 3.8 mmol/L 3.6-5.0 Serum or plasma chloride measurement (moles/volume) 105 mmol/L 98-107 Carbon dioxide 25 mmol/L 21-32 Serum or plasma anion gap determination (moles/volume) 10 mmol/L 5-14 Serum or plasma urea nitrogen measurement (mass/volume) 8 mg/dL 7-18 Serum or plasma creatinine measurement (mass/volume) 0.79 mg/dL 0.60-1.30 Serum or plasma urea nitrogen/creatinine mass ratio 10 NRG Serum or plasma creatinine measurement with calculation of estimated glomerular filtration rate > NRG Serum or plasma glucose measurement (mass/volume) 126 mg/dL 70-105 Serum or plasma calcium measurement (mass/volume) 8.3 mg/dL 8.5-10.1 Serum or plasma total bilirubin measurement (mass/volume) 0.4 mg/dL 0.1-1.0 Serum or plasma alkaline phosphatase measurement (enzymatic activity/volume) 56 U/L 40-136 Serum or plasma aspartate aminotransferase measurement (enzymatic activity/volume) 19 U/L 5-34 Serum or plasma alanine aminotransferase measurement (enzymatic activity/volume) 16 U/L 0-55 Serum or plasma protein measurement (mass/volume) 7.3 g/dL 6.4-8.2 Serum or plasma albumin measurement (mass/volume) 4.1 g/dL 3.2-4.5 Serum or plasma amylase measurement (enzymatic activity/volume) - 12/05/17 01:05 Serum or plasma amylase measurement (enzymatic activity/volume) 44 U/L 25-125 Lipase - 12/05/17 01:05 Lipase 28 U/L 8-78 Complete urinalysis with reflex to culture - 12/05/17 02:10 Urine color determination YELLOW NRG Urine clarity determination CLEAR NRG Urine pH measurement by test strip 6 5-9 Specific gravity of urine by test strip 1.020 1.016-1.022 Urine protein assay by test strip, semi-quantitative 1+ NEGATIVE Urine glucose detection by automated test strip NEGATIVE NEGATIVE Erythrocytes detection in urine sediment by light microscopy NEGATIVE NEGATIVE Urine ketones detection by automated test strip NEGATIVE NEGATIVE Urine nitrite detection by test strip NEGATIVE NEGATIVE Urine total bilirubin detection by test strip NEGATIVE NEGATIVE Urine urobilinogen measurement by automated test strip (mass/volume) 4 mg/dL NORMAL Urine leukocyte esterase detection by dipstick 1+ NEGATIVE Automated urine sediment erythrocyte count by microscopy (number/high power field) NONE NRG Automated urine sediment leukocyte count by microscopy (number/high power field) RARE NRG Bacteria detection in urine sediment by light microscopy TRACE NRG Squamous epithelial cells detection in urine sediment by light microscopy 25-50 NRG Crystals detection in urine sediment by light microscopy NONE NRG Casts detection in urine sediment by light microscopy NONE NRG Mucus detection in urine sediment by light microscopy NEGATIVE NRG Complete urinalysis with reflex to culture NO NRG Urine beta human chorionic gonadotropin (hCG) measurement - 12/05/17 02:10 Urine beta human chorionic gonadotropin (hCG) measurement NEGATIVE NEGATIVE Urine beta human chorionic gonadotropin (hCG) measurement - 02/08/18 12:47 Urine beta human chorionic gonadotropin (hCG) measurement NEGATIVE NEGATIVE CULTURE, URINE - 05/08/18 12:08 CULTURE, URINE, ROUTINE SEE NOTE NRG Complete blood count (CBC) with automated white blood cell (WBC) differential - 11/12/18 21:50 Blood leukocytes automated count (number/volume) 8.8 10*3/uL 4.3-11.0 Blood erythrocytes automated count (number/volume) 4.78 10*6/uL 4.35-5.85 Venous blood hemoglobin measurement (mass/volume) 13.2 g/dL 11.5-16.0 Blood hematocrit (volume fraction) 41 % 35-52 Automated erythrocyte mean corpuscular volume 85 [foz_us] 80-99 Automated erythrocyte mean corpuscular hemoglobin (mass per erythrocyte) 28 pg 25-34 Automated erythrocyte mean corpuscular hemoglobin concentration measurement (mass/volume) 33 g/dL 32-36 Automated erythrocyte distribution width ratio 13.4 % 10.0- 14.5 Automated blood platelet count (count/volume) 283 10*3/uL 130-400 Automated blood platelet mean volume measurement 9.3 [foz_us] 7.4-10.4 Automated blood neutrophils/100 leukocytes 56 % 42-75 Automated blood lymphocytes/100 leukocytes 30 % 12-44 Blood monocytes/100 leukocytes 10 % 0-12 Automated blood eosinophils/100 leukocytes 4 % 0-10 Automated blood basophils/100 leukocytes 1 % 0-10 Blood neutrophils automated count (number/volume) 4.9 10*3 1.8-7.8 Blood lymphocytes automated count (number/volume) 2.6 10*3 1.0-4.0 Blood monocytes automated count (number/volume) 0.9 10*3 0.0- 1.0 Automated eosinophil count 0.3 10*3/uL 0.0-0.3 Automated blood basophil count (count/volume) 0.0 10*3/uL 0.0-0.1 PT panel in platelet poor plasma by coagulation assay - 11/12/18 21:50 Prothrombin time (PT) in platelet poor plasma by coagulation assay 13.4 s 12.2-14.7 INR in platelet poor plasma or blood by coagulation assay 1.0 0.8-1.4 Activated partial thromboplastin time (aPTT) in platelet poor plasma bycoagulation assay - 11/12/18 21:50 Activated partial thromboplastin time (aPTT) in platelet poor plasma bycoagulation assay 40 s 24-35 Serum or plasma choriogonadotropin ( test) detection - 11/12/18 21:50 Serum or plasma choriogonadotropin ( test) detection NEGATIVE NEGATIVE Comprehensive metabolic panel - 11/12/18 21:50 Serum or plasma sodium measurement (moles/volume) 139 mmol/L 135-145 Serum or plasma potassium measurement (moles/volume) 3.7 mmol/L 3.6-5.0 Serum or plasma chloride measurement (moles/volume) 105 mmol/L 98-107 Carbon dioxide 23 mmol/L 21-32 Serum or plasma anion gap determination (moles/volume) 11 mmol/L 5-14 Serum or plasma urea nitrogen measurement (mass/volume) 10 mg/dL 7-18 Serum or plasma creatinine measurement (mass/volume) 0.73 mg/dL 0.60-1.30 Serum or plasma urea nitrogen/creatinine mass ratio 14 NRG Serum or plasma creatinine measurement with calculation of estimated glomerular filtration rate > NRG Serum or plasma glucose measurement (mass/volume) 104 mg/dL 70-105 Serum or plasma calcium measurement (mass/volume) 9.4 mg/dL 8.5-10.1 Serum or plasma total bilirubin measurement (mass/volume) 0.3 mg/dL 0.1-1.0 Serum or plasma alkaline phosphatase measurement (enzymatic activity/volume) 49 U/L 40-136 Serum or plasma aspartate aminotransferase measurement (enzymatic activity/volume) 18 U/L 5-34 Serum or plasma alanine aminotransferase measurement (enzymatic activity/volume) 18 U/L 0-55 Serum or plasma protein measurement (mass/volume) 7.2 g/dL 6.4-8.2 Serum or plasma albumin measurement (mass/volume) 4.1 g/dL 3.2-4.5 CALCIUM CORRECTED 9.3 mg/dL 8.5-10.1 Magnesium - 11/12/18 21:50 Magnesium 2.4 mg/dL 1.8-2.4 Serum or plasma lithium measurement (moles/volume) - 11/12/18 21:50 BNP level 21.6 pg/mL <100.0 Complete blood count (CBC) with automated white blood cell (WBC) differential - 12/04/18 02:43 Blood leukocytes automated count (number/volume) 8.7 10*3/uL 4.3-11.0 Blood erythrocytes automated count (number/volume) 4.93 10*6/uL 4.35-5.85 Venous blood hemoglobin measurement (mass/volume) 13.6 g/dL 11.5-16.0 Blood hematocrit (volume fraction) 42 % 35-52 Automated erythrocyte mean corpuscular volume 84 [foz_us] 80-99 Automated erythrocyte mean corpuscular hemoglobin (mass per erythrocyte) 28 pg 25-34 Automated erythrocyte mean corpuscular hemoglobin concentration measurement (mass/volume) 33 g/dL 32-36 Automated erythrocyte distribution width ratio 13.7 % 10.0- 14.5 Automated blood platelet count (count/volume) 270 10*3/uL 130-400 Automated blood platelet mean volume measurement 9.4 [foz_us] 7.4-10.4 Automated blood neutrophils/100 leukocytes 57 % 42-75 Automated blood lymphocytes/100 leukocytes 30 % 12-44 Blood monocytes/100 leukocytes 8 % 0-12 Automated blood eosinophils/100 leukocytes 4 % 0-10 Automated blood basophils/100 leukocytes 1 % 0-10 Blood neutrophils automated count (number/volume) 5.0 10*3 1.8-7.8 Blood lymphocytes automated count (number/volume) 2.6 10*3 1.0-4.0 Blood monocytes automated count (number/volume) 0.7 10*3 0.0- 1.0 Automated eosinophil count 0.4 10*3/uL 0.0-0.3 Automated blood basophil count (count/volume) 0.0 10*3/uL 0.0-0.1 Serum or plasma choriogonadotropin ( test) detection - 12/04/18 02:43 Serum or plasma choriogonadotropin ( test) detection NEGATIVE NEGATIVE Comprehensive metabolic panel - 12/04/18 02:43 Serum or plasma sodium measurement (moles/volume) 138 mmol/L 135-145 Serum or plasma potassium measurement (moles/volume) 4.0 mmol/L 3.6-5.0 Serum or plasma chloride measurement (moles/volume) 106 mmol/L 98-107 Carbon dioxide 21 mmol/L 21-32 Serum or plasma anion gap determination (moles/volume) 11 mmol/L 5-14 Serum or plasma urea nitrogen measurement (mass/volume) 9 mg/dL 7-18 Serum or plasma creatinine measurement (mass/volume) 1.02 mg/dL 0.60-1.30 Serum or plasma urea nitrogen/creatinine mass ratio 9 NRG Serum or plasma creatinine measurement with calculation of estimated glomerular filtration rate 59 NRG Serum or plasma glucose measurement (mass/volume) 97 mg/dL 70-105 Serum or plasma calcium measurement (mass/volume) 9.3 mg/dL 8.5-10.1 Serum or plasma total bilirubin measurement (mass/volume) 0.3 mg/dL 0.1-1.0 Serum or plasma alkaline phosphatase measurement (enzymatic activity/volume) 48 U/L 40-136 Serum or plasma aspartate aminotransferase measurement (enzymatic activity/volume) 26 U/L 5-34 Serum or plasma alanine aminotransferase measurement (enzymatic activity/volume) 20 U/L 0-55 Serum or plasma protein measurement (mass/volume) 7.0 g/dL 6.4-8.2 Serum or plasma albumin measurement (mass/volume) 4.0 g/dL 3.2-4.5 CALCIUM CORRECTED 9.3 mg/dL 8.5-10.1 Lipase - 12/04/18 02:43 Lipase 31 U/L 8-78 Complete urinalysis with reflex to culture - 12/04/18 03:22 Urine color determination YELLOW NRG Urine clarity determination CLEAR NRG Urine pH measurement by test strip 7 5-9 Specific gravity of urine by test strip 1.010 1.016-1.022 Urine protein assay by test strip, semi-quantitative NEGATIVE NEGATIVE Urine glucose detection by automated test strip NEGATIVE NEGATIVE Erythrocytes detection in urine sediment by light microscopy NEGATIVE NEGATIVE Urine ketones detection by automated test strip NEGATIVE NEGATIVE Urine nitrite detection by test strip NEGATIVE NEGATIVE Urine total bilirubin detection by test strip NEGATIVE NEGATIVE Urine urobilinogen measurement by automated test strip (mass/volume) NORMAL NORMAL Urine leukocyte esterase detection by dipstick 1+ NEGATIVE Automated urine sediment erythrocyte count by microscopy (number/high power field) NONE NRG Automated urine sediment leukocyte count by microscopy (number/high power field) RARE NRG Bacteria detection in urine sediment by light microscopy FEW NRG Squamous epithelial cells detection in urine sediment by light microscopy 0-2 NRG Crystals detection in urine sediment by light microscopy NONE NRG Casts detection in urine sediment by light microscopy NONE NRG Mucus detection in urine sediment by light microscopy NEGATIVE NRG Complete urinalysis with reflex to culture NO NRG Encounters ACCT No. Visit Date/Time Discharge Status Pt. Type Provider Facility Loc./Unit Complaint [id number] 11/27/2018 09:40:00 11/27/2018 23:59:59 CLS Outpatient BILL CHRISTYCelso CARISA Rosario [facility] [id number] 05/08/2018 17:45:00 Document Registration [id number] 11/30/2017 15:40:00 Document Registration [id number] 09/12/2017 09:40:00 Document Registration [id number] 07/07/2017 13:20:00 Document Registration [id number] 05/15/2017 13:10:00 Document Registration [id number] 12/04/2018 02:27:00 12/04/2018 05:43:00 DIS Emergency BRIANNE ERICKSON, ALINE Burris [facility] ER LOWER BACK PAIN AND STOMACH [id number] 11/16/2018 12:00:00 11/16/2018 23:59:59 CLS Preadmit ANDREEA WASHINGTON DO [facility] RAD L CALF PAIN [id number] 11/12/2018 21:22:00 11/12/2018 23:00:00 DIS Outpatient ANDREEA WASHINGTON DO [facility] ER PAIN IN LEFT LEG [id number] 04/13/2018 16:47:00 04/13/2018 23:59:59 CLS Outpatient CHRISTOFER ERICKSON, TRELL Ruiz [facility] RAD M54.5,M25.562 [id number] 02/08/2018 12:38:00 02/08/2018 15:40:00 DIS Outpatient EVELINA MEYERS DO [facility] ENDO BLOOD IN STOOL/REFLUX [id number] 02/01/2018 05:41:00 02/01/2018 14:57:00 DIS Outpatient EVELINA MEYERS DO [facility] PREOP COLONOSCOPY [id number] 01/12/2018 07:30:00 01/12/2018 23:59:59 CLS Preadmit BAUDILIO NAGY DO [facility] SDC ABNORMAL UTERINE BLEEDING [id number] 01/02/2018 06:40:00 01/02/2018 13:16:00 DIS Outpatient LAN ERICKSON, EDUARDO Andrea [facility] PREOP COLONOSCOPY [id number] 12/04/2017 23:23:00 12/05/2017 03:02:00 DIS Emergency ANDREEA WASHINGTON DO [facility] ER L SIDE PAIN/VOMITING/DIARRHEA [id number] 11/02/2017 19:11:00 11/02/2017 23:59:59 CLS Outpatient CARY ANGLIN APRN [facility] RAD LEFT LEG PAIN [id number] 10/04/2017 09:43:00 10/04/2017 23:59:59 CLS Outpatient CARISA KHAN [facility] RAD MENORRHAGIA W/ IRREGULAR CYCLE [id number] 09/23/2017 14:00:00 09/23/2017 23:59:59 CLS Preadmit CARISA KHAN [facility] RAD N92.1 MENORRHAGIA W/IRREGULAR CYCLE [id number] 09/13/2017 17:01:00 09/13/2017 20:21:00 DIS Emergency SOLO ALFARO [facility] ER SEVERE ABD PAIN [id number] 09/08/2017 17:05:00 09/08/2017 19:50:00 DIS Emergency ALLEGRA VILLATORO APRN [facility] ER HEADACHE/NEW RX/WEAKNESS [id number] 09/04/2017 10:35:00 09/04/2017 13:05:00 DIS Emergency JIGAR CUEVAS [facility] ER HEADACHE [id number] 03/05/2017 13:40:00 03/05/2017 15:53:00 DIS Emergency SOLO ALFARO [facility] ER POSS SPIDER BITE ON RT ANKLE [id number] 02/06/2017 22:43:00 02/07/2017 00:34:00 DIS Emergency ANDREEA WASHINGTON DO [facility] ER L SIDE PAIN [id number] 02/05/2017 10:06:00 02/05/2017 12:50:00 DIS Emergency ALLEGRA VILLATORO APRN [facility] ER L SIDE BACK PAIN [id number] 12/04/2016 14:45:00 12/04/2016 15:53:00 DIS Emergency 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 [facility] ER FALL, L ARM/ELBOW INJ [id number] 07/13/2016 13:25:00 07/13/2016 16:49:00 DIS Emergency LEIGHA OSBORN MD [facility] ER HEADACHE/FLU SYMPTOMS [id number] 06/12/2016 17:38:00 06/14/2016 18:30:00 DIS Inpatient JOCELYN ERICKSON, TORRES Correa [facility] ICU ACS ROLE OUT, 2ND PREFERENCE CHEST PAIN [id number] 10/28/2014 23:14:00 10/29/2014 00:56:00 DIS Emergency ANDREEA WASHINGTON DO [facility] ER ALLERGIC RXN TO ONIONS [id number] 02/10/2014 20:42:00 02/10/2014 23:10:00 DIS Emergency ENMA GARCIA MD [facility] ER HEADACHE [id number] 09/19/2013 08:17:00 09/19/2013 23:59:59 CLS Outpatient CARISA KHAN [facility] RAD HEPATIC CYST [id number] 12/06/2018 15:37:00 ACT Outpatient CARISA KHAN [facility] RAD PAIN OF LEFT LOWER LEG [id number] 08/01/2013 08:54:00 Document Registration [id number] 05/21/2013 08:56:00 Document Registration [id number] 05/16/2013 15:57:00 Document Registration [id number] 01/22/2013 22:21:00 Document Registration [id number] 11/27/2012 16:36:00 Document Registration [id number] 11/22/2012 19:33:00 Document Registration [id number] 11/22/2012 11:17:00 Document Registration [id number] 11/16/2012 21:28:00 Document Registration [id number] 05/12/2012 17:46:00 Document Registration [id number] 04/06/2012 21:45:00 Document Registration [id number] 07/01/2011 11:18:00 Document Registration [id number] 08/01/2013 08:54:00 08/01/2013 10:10:00 DIS Emergency [id number] 05/21/2013 08:56:00 05/21/2013 23:59:59 CLS Outpatient [id number] 05/16/2013 15:57:00 05/16/2013 23:59:59 CLS Outpatient [id number] 01/22/2013 22:21:00 01/23/2013 01:19:00 DIS Emergency [id number] 11/27/2012 16:36:00 11/27/2012 20:10:00 DIS Emergency [id number] 11/22/2012 19:33:00 11/22/2012 23:33:00 DIS Emergency [id number] 11/22/2012 11:17:00 11/22/2012 12:50:00 DIS Emergency [id number] 11/16/2012 21:28:00 11/16/2012 23:27:00 DIS Emergency [id number] 10/30/2014 14:05:00 10/30/2014 23:59:59 CLS Outpatient CARISA KHAN APRN [id number] 10/14/2014 08:34:00 10/14/2014 23:59:59 CLS Outpatient CARISA KHAN APRN [id number] 09/25/2014 13:52:00 09/25/2014 23:59:59 CLS Outpatient CARISA KHAN APRN [id number] 03/08/2014 13:20:00 03/08/2014 23:59:59 CLS Outpatient BALBIR MORRISSEY APRN [id number] 02/18/2014 11:27:00 02/18/2014 23:59:59 CLS Outpatient CARISA KHAN APRN [id number] 01/03/2014 08:43:00 01/03/2014 23:59:59 CLS Outpatient RUTH DOVER APRN [id number] 12/27/2013 12:02:00 12/27/2013 23:59:59 CLS Outpatient BALBIR MORRISSEY APRN [id number] 10/10/2013 08:08:00 10/10/2013 23:59:59 CLS Outpatient CARISA KHAN APRN [id number] 06/18/2013 14:53:00 06/18/2013 23:59:59 CLS Outpatient CARISA KHAN APRN [id number] 06/04/2013 12:30:00 06/04/2013 23:59:59 CLS Outpatient BALBIR MORRISSEY APRN [id number] 05/16/2013 14:42:00 05/16/2013 23:59:59 CLS Outpatient NAHOMY PETERSON DO [id number] 09/04/2012 09:39:00 09/04/2012 23:59:59 CLS Outpatient NAHOMY PETERSON DO [id number] 08/16/2012 08:18:00 08/16/2012 23:59:59 CLS Outpatient [id number] 05/16/2012 10:33:00 05/16/2012 23:59:59 CLS Outpatient CARISA KHAN APRN [id number] 03/01/2013 13:28:00 Document Registration [id number] 01/09/2013 11:33:00 Document Registration [id number] 11/23/2012 13:01:00 Document Registration [id number] 11/07/2012 12:42:00 Document Registration
== END 2018-12-07 17:07 | disposition home or self-care (01) ==
LOC: EDUNIT# 15:53 → ER 15:54
DX: R51 Headache (principal); I10 Essential (primary) hypertension; K21.9 Gastro-esophageal reflux disease without esophagitis; E11.9 Type 2 diabetes mellitus without complications; E66.01 Morbid (severe) obesity due to excess calories; D64.9 Anemia, unspecified; Z87.19 Personal history of other diseases of the digestive system; Z87.440 Personal history of urinary (tract) infections; Z88.5 Allergy status to narcotic agent; Z86.69 Personal history of other diseases of the nervous system and sense organs; Z82.49 Family history of ischemic heart disease and other diseases of the circulatory system; Z68.43 Body mass index [BMI] 50.0-59.9, adult; Z88.8 Allergy status to other drugs, medicaments and biological substances; Z79.51 Long term (current) use of inhaled steroids; Z79.52 Long term (current) use of systemic steroids; Z98.890 Other specified postprocedural states; Z87.01 Personal history of pneumonia (recurrent)
CPT/HCPCS: 96372; 99284

== ENCOUNTER 2019-04-04 15:12 | Emergency (ER) | payer MEDICAID ==
[~2019-04-04] VITALS: Ht 175 cm; Wt 161.8 kg
[2019-04-04 15:53] LABS: BASOPHILS % (AUTO) 0 % (0-10); EOSINOPHILS # (AUTO) 0.3 10^3/uL (0.0-0.3); EOSINOPHILS % (AUTO) 3 % (0-10); HEMATOCRIT 43 % (35-52); LYMPHOCYTES % (AUTO) 20 % (12-44); MEAN CORPUSCULAR HEMOGLOBIN 28 PG (25-34); MEAN CORPUSCULAR HGB CONC 33 G/DL (32-36); MEAN CORPUSCULAR VOLUME 84 FL (80-99); MEAN PLATELET VOLUME 9.2 FL (7.4-10.4); MONOCYTES # (AUTO) 0.8 X 10^3 (0.0-1.0); MONOCYTES % (AUTO) 8 % (0-12); NEUTROPHILS # (AUTO) 6.9 X 10^3 (1.8-7.8); NEUTROPHILS % (AUTO) 69 % (42-75); PLATELET COUNT 310 10^3/uL (130-400); RED CELL DISTRIBUTION WIDTH 13.6 % (10.0-14.5); WHITE BLOOD COUNT 10.1 10^3/uL (4.3-11.0)
--- NOTE | 2019-04-04 15:57 | ED GI ---
General Chief Complaint: Abdominal/GI Problems Stated Complaint: RT ABDOMEN PAIN Nursing Triage Note: RLQ PAIN STARTING AT 1100 TODAY. SENT FROM THE CLINIC. Sepsis Screen: No Definite Risk Source of Information: Patient Exam Limitations: No Limitations History of Present Illness Date Seen by Provider: Apr 04, 2019 Time Seen by Provider: 15:56 Initial Comments right lower quadrant abdominal pain that began at 11 AM this morning. Pain has intensified since then, she has associated nausea without vomiting, diarrhea 1. She presented to [facility] who referred her here. Timing/Duration: 4-6 Hours Severity/Quality: Moderate Location: RLQ Radiation: No Radiation Associated Symptoms: Denies Symptoms Allergies and Home Medications Allergies Coded Allergies: codeine (Verified Allergy, Severe, NECK SWELLING, 01/02/18) hydrochlorothiazide (Verified Allergy, Severe, NECK SWELLING, 01/02/18) Home Medications Amlodipine Besylate 10 Mg Tablet, 10 MG PO HS, (Reported) Diltiazem HCl 240 Mg Cap.er.24h, 240 MG PO DAILY, (Reported) Dulaglutide 1.5 Mg/0.5 Ml Pen.injctr, 1.5 MG SQ WEEK, (Reported) ON WEDNESDAYS Famotidine 40 Mg Tablet, 40 MG PO DAILY, (Reported) Fluticasone Propionate 9.9 Ml [place].susp, 1 SPRAY NS DAILY, (Reported) 1 SPRAY EACH NARE DAILY Hydrocodone Bit/Acetaminophen 1 Tab Tab, 1-2 EACH PO Q6H PRN for PAIN-MODERATE Prescribed by: ALINE BAH on 12/04/18537 Loratadine 10 Mg Tablet, 10 MG PO DAILY, (Reported) Losartan Potassium 50 Mg Tablet, 50 MG PO DAILY, (Reported) Meloxicam 7.5 Mg Tablet, 7.5 MG PO DAILY, (Reported) Metformin HCl 500 Mg Tablet, 500 MG PO BID, (Reported) Pantoprazole Sodium 40 Mg Tablet.dr, 40 MG PO DAILY, (Reported) Prednisone 20 Mg Tab, 20 MG PO DAILY Prescribed by: ALINE BAH on 12/04/18537 Propranolol HCl 10 Mg Tablet, 10 MG PO BID, (Reported) Spironolactone 25 Mg Tablet, 25 MG PO DAILY, (Reported) Patient Home Medication List Home Medication List Reviewed: Yes Review of Systems Review of Systems Constitutional: see HPI EENTM: No Symptoms Reported Respiratory: No Symptoms Reported Cardiovascular: No Symptoms Reported Gastrointestinal: See HPI, Abdominal Pain Genitourinary: No Symptoms Reported Musculoskeletal: no symptoms reported Skin: no symptoms reported Psychiatric/Neurological: No Symptoms Reported Endocrine: No Symptoms Reported Past Ofvevuy-Ilybtj-Dmzlqp Hx Patient Social History 2nd Hand Smoke Exposure: No Recent Foreign Travel: No Contact w/Someone Who Travel: No Recent Infectious Disease Expo: No Recent Hopitalizations: No Immunizations Up To Date Tetanus Booster (TDap): More than 5yrs PED Vaccines UTD: No Seasonal Allergies Seasonal Allergies: Yes Past Medical History Surgeries: Yes Section, Gallbladder Respiratory: Yes Pneumonia Currently Using CPAP: No Currently Using BIPAP: No Cardiac: Yes (HEART MURMUR A CHILD) Heart Murmur, Hypertension Neurological: Yes Headaches /Migraines Reproductive Disorders: No Female Reproductive Disorders: Menstrual Problems Sexually Transmitted Disease: No HIV/AIDS: No Genitourinary: Yes UTI-Chronic Gastrointestinal: Yes Gastroesophageal Reflux, Chronic Constipation, Chronic Diarrhea Musculoskeletal: No Endocrine: Yes (MORBID OBESTIY, INSULIN RESISTANCE) Diabetes, Non-Insulin dep HEENT: Yes Tonsilitis Loss of Vision: Bilateral Hearing Impairment: Denies Cancer: No Psychosocial: No Integumentary: No Blood Disorders: Yes (ANEMIA) Adverse Reaction/Blood Tranf: No (N/A) Family Medical History Arthritis Asthma 19 FATHER (copd) 19 MOTHER (copd) Cardiovascular disease 19 FATHER (chf) Diabetes mellitus 19 FATHER Hypertension 19 FATHER 19 MOTHER G8 BROTHER G8 SISTER No Pertinent Family Hx Physical Exam Vital Signs Vital Signs - First Documented 04/04/19 15:18 Temp 37.0 Pulse 88 Resp 16 B/P (MAP) 139/110 (120) Pulse Ox 98 O2 Delivery Room Air Capillary Refill : Less Than 3 Seconds Height/Weight/BMI Height: 5'9.00" Weight: 354lbs. 0.0oz. [id number]; 52.00 BMI Method:Stated General Appearance: WD/WN, no apparent distress Neck: non-tender, full range of motion Respiratory: no respiratory distress, no accessory muscle use Cardiovascular: regular rate, rhythm, no murmur Gastrointestinal: normal bowel sounds, soft, tenderness Extremities: normal range of motion, non-tender Neurologic/Psychiatric: alert, normal mood/affect, oriented x 3 Skin: normal color, warm/dry (only C1) Progress/Results/Core Measures Results/Orders Lab Results Laboratory Tests Test 04/04/19 15:44 04/04/19 15:57 Range/Units White Blood Count 10.1 4.3-11.0 10^3/uL Red Blood Count 5.06 4.35-5.85 10^6/uL Hemoglobin 14.0 11.5-16.0 G/DL Hematocrit 43 35-52 % Mean Corpuscular Volume 84 80-99 FL Mean Corpuscular Hemoglobin 28 25-34 PG Mean Corpuscular Hemoglobin Concent 33 32-36 G/DL Red Cell Distribution Width 13.6 10.0-14.5 % Platelet Count 310 130-400 10^3/uL Mean Platelet Volume 9.2 7.4-10.4 FL Neutrophils (%) (Auto) 69 42-75 % Lymphocytes (%) (Auto) 20 12-44 % Monocytes (%) (Auto) 8 0-12 % Eosinophils (%) (Auto) 3 0-10 % Basophils (%) (Auto) 0 0-10 % Neutrophils # (Auto) 6.9 1.8-7.8 X 10^3 Lymphocytes # (Auto) 2.0 1.0-4.0 X 10^3 Monocytes # (Auto) 0.8 0.0-1.0 X 10^3 Eosinophils # (Auto) 0.3 0.0-0.3 10^3/uL Basophils # (Auto) 0.0 0.0-0.1 10^3/uL Sodium Level 138 135-145 MMOL/L Potassium Level 3.8 3.6-5.0 MMOL/L Chloride Level 101 98-107 MMOL/L Carbon Dioxide Level 29 21-32 MMOL/L Anion Gap 8 5-14 MMOL/L Blood Urea Nitrogen 11 7-18 MG/DL Creatinine 0.84 0.60-1.30 MG/DL Estimat Glomerular Filtration Rate > 60 BUN/Creatinine Ratio 13 Glucose Level 106 H 70-105 MG/DL Calcium Level 9.9 8.5-10.1 MG/DL Corrected Calcium 9.7 8.5-10.1 MG/DL Total Bilirubin 0.5 0.1-1.0 MG/DL Aspartate Amino Transf (AST/SGOT) 23 5-34 U/L Alanine Aminotransferase (ALT/SGPT) 20 0-55 U/L Alkaline Phosphatase 57 40-136 U/L C-Reactive Protein High Sensitivity 0.65 H 0.00-0.50 MG/DL Total Protein 7.9 6.4-8.2 GM/DL Albumin 4.3 3.2-4.5 GM/DL Serum Test, Qualitative NEGATIVE NEGATIVE Urine Color YELLOW Urine Clarity CLEAR Urine pH 5 5-[address] 1.025 H 1.016-1.022 Urine Protein NEGATIVE NEGATIVE Urine Glucose (UA) NEGATIVE NEGATIVE Urine Ketones 3+ H NEGATIVE Urine Nitrite NEGATIVE NEGATIVE Urine Bilirubin NEGATIVE NEGATIVE Urine Urobilinogen NORMAL NORMAL MG/DL Urine Leukocyte Esterase 1+ H NEGATIVE Urine RBC (Auto) NEGATIVE NEGATIVE Urine RBC NONE /HPF Urine WBC 2-5 /HPF Urine Squamous Epithelial Cells 10-25 H /HPF Urine Crystals NONE /LPF Urine Bacteria FEW H /HPF Urine Casts NONE /LPF Urine Mucus SMALL H /LPF Urine Culture Indicated NO My Orders Orders - ALLEGRA VILLATORO APRN Cbc With Automated Diff (04/04/19 15:15) Comprehensive Metabolic Panel (04/04/19 15:15) Hs C Reactive Protein (04/04/19 15:15) Ua Culture If Indicated (04/04/19 15:15) Hcg,Qualitative Serum (04/04/19 15:15) Ed Iv/Invasive Line Start (04/04/19 15:15) Ketorolac Injection (Toradol Injection) (04/04/19 16:00) Ct Abd/Pelvis Wo(Kidney Stone) (04/04/19 15:46) Medications Given in ED Current Medications Medications Dose Ordered Sig/Minerva Route Start Time Stop Time Status Last Admin Dose Admin Ketorolac Tromethamine 15 mg ONCE ONCE IVP 04/04/19 16:00 04/04/19 16:01 DC 04/04/19 15:50 15 MG Vital Signs/I&O 04/04/19 15:18 Temp 37.0 Pulse 88 Resp 16 B/P (MAP) 139/110 (120) Pulse Ox 98 O2 Delivery Room Air Blood Pressure Mean: 120 Departure Impression Primary Impression: Nonspecific right lower quadrant pain Disposition: 01 HOME, SELF-CARE Condition: Stable Departure-Patient Inst. Decision time for Depature: 15:57 Referrals: [facility][1[facility] (PCP) Primary Care Physician CARISA KHAN (Family) Primary Care Physician Patient Instructions: Acute Abdomen (Belly Pain), Adult (DC) Add. Discharge Instructions: 1. Return to ER for any concerns 2. Follow-up with your doctor next week 3. All discharge instructions reviewed with patient and/or family. Voiced understanding. ALLEGRA VILLATORO ROPE CLEANER Apr 04, 2019 15:57
[2019-04-04] MEDS ORDERED: KETOROLAC 30 MG/ML VIAL IVP ONE (16:00)
[2019-04-04 16:04] LABS: BILIRUBIN,URINE NEGATIVE (NEGATIVE); CLARITY,URINE CLEAR; COLOR,URINE YELLOW; GLUCOSE, URINE (UA) NEGATIVE (NEGATIVE); KETONES,URINE 3+ (NEGATIVE); LEUKOCYTE ESTERASE ,URINE 1+ (NEGATIVE); NITRITE,URINE NEGATIVE (NEGATIVE); PH,URINE 5 (5-9); PROTEIN,URINE NEGATIVE (NEGATIVE); UROBILINOGEN,URINE NORMAL (NORMAL)
[2019-04-04 16:11] LABS: ALANINE AMINOTRANSFERASE 20 U/L (0-55); ALBUMIN 4.3 GM/DL (3.2-4.5); ALKALINE PHOSPHATASE 57 U/L (40-136); BILIRUBIN,TOTAL 0.5 MG/DL (0.1-1.0); BUN/CREATININE RATIO 13; CALCIUM 9.9 MG/DL (8.5-10.1); CARBON DIOXIDE 29 MMOL/L (21-32); CHLORIDE 101 MMOL/L (98-107); CREATININE SERUM 0.84 MG/DL (0.60-1.30); GFR ESTIMATED > 60; GLUCOSE 106 MG/DL (70-105); POTASSIUM 3.8 MMOL/L (3.6-5.0); SODIUM 138 MMOL/L (135-145); TOTAL PROTEIN 7.9 GM/DL (6.4-8.2)
[2019-04-04 16:27] LABS: BACTERIA,URINE FEW /HPF
--- NOTE | 2019-04-04 16:40 | NUR ---
TO ROOM PAIN510
--- NOTE | 2019-04-04 16:40 | Diagnostic Imaging Report ---
EXAMINATION: CT Abdomen/Pelvis without contrast. TECHNIQUE: Multiple contiguous axial images were obtained through the abdomen and pelvis without the use of intravenous contrast. All CT scans use one or more of the following dose optimizing techniques: automated exposure control, MA and/or KvP adjustment based on a patient size and exam type, or iterative reconstruction. HISTORY: Right lower quadrant pain. COMPARISON: 12/04/2018. FINDINGS: Limited views of the lower thorax are unremarkable. The liver is normal without focal lesion. There is an unchanged posterior parahepatic cyst. The gallbladder is absent. No biliary ductal dilation. The pancreas, spleen, and adrenal glands are normal. The kidneys are normal without stones or focal lesion. No hydronephrosis. The urinary bladder is decompressed. The uterus and adnexa are normal. There are no dilated loops of large or small bowel. The appendix is normal. High attenuation within the appendix may represent an appendicolith but there is no evidence for inflammation. There is a small fat-containing umbilical hernia. No free fluid or air. No abdominal or pelvic lymphadenopathy. A bone island is seen in the left ilium. There are no suspicious osseous lesions. IMPRESSION: No acute abnormality in the abdomen or pelvis. Dictated by: Dictated on workstation # [id number]
[2019-04-04 16:53] VITALS: BP 147/92
== END 2019-04-04 17:13 | disposition home or self-care (01) ==
LOC: EDUNIT# 15:12 → ER 15:13
DX: R10.31 Right lower quadrant pain (principal); I10 Essential (primary) hypertension; E11.9 Type 2 diabetes mellitus without complications; G43.909 Migraine, unspecified, not intractable, without status migrainosus; D64.9 Anemia, unspecified; E66.01 Morbid (severe) obesity due to excess calories; K21.9 Gastro-esophageal reflux disease without esophagitis; Z87.440 Personal history of urinary (tract) infections; Z88.5 Allergy status to narcotic agent; Z88.8 Allergy status to other drugs, medicaments and biological substances; Z79.51 Long term (current) use of inhaled steroids; Z79.84 Long term (current) use of oral hypoglycemic drugs; Z79.52 Long term (current) use of systemic steroids; Z82.49 Family history of ischemic heart disease and other diseases of the circulatory system
CPT/HCPCS: 36415; 74176; 80053; 81000; 84703; 85025; 86141; 96374

== ENCOUNTER 2019-09-21 08:57 | Emergency (ER) | payer MEDICAID ==
[~2019-09-21] VITALS: Ht 175 cm; Wt 159.0 kg
[~2019-09-21 08:57] MED LIST changes: -IBUP-2055 PO; +IBUP-2473 PO; -TRAM50TA2 PO; +TRM50T PO
--- NOTE | 2019-09-21 10:49 | ED EENT ---
History of Present Illness General Chief Complaint: Facial Problems Stated Complaint: FALL;NOSE INJ Nursing Triage Note: PT PRESENTS TO ED WITH COMPLAINTS OF NASAL AND TEETH/FACIAL PAIN AFTER TRIPPING OVER RUG THIS AM AND HITTING FAC ON TOY BOX. PT DENIES LOC. Source: patient Exam Limitations: no limitations History of Present Illness Date Seen by Provider: Sep 21, 2019 Time Seen by Provider: 10:46 Initial Comments Tripped and fell striking the center of her nose and face on toybox. No loss of consciousness no neck pain. She does have nasal pain, dental pain without loose teeth and facial pain. Timing/Duration: this morning Severity: moderate Associated Symptoms: facial pain/swelling Allergies and Home Medications Allergies Coded Allergies: codeine (Verified Allergy, Severe, NECK SWELLING, 01/02/18) hydrochlorothiazide (Verified Allergy, Severe, NECK SWELLING, 01/02/18) Home Medications Amlodipine Besylate 10 Mg Tablet, 10 MG PO HS, (Reported) Diltiazem HCl 240 Mg Cap.er.24h, 240 MG PO DAILY, (Reported) Dulaglutide 1.5 Mg/0.5 Ml Pen.injctr, 1.5 MG SQ WEEK, (Reported) ON WEDNESDAYS Famotidine 40 Mg Tablet, 40 MG PO DAILY, (Reported) Fluticasone Propionate 9.9 Ml [place].susp, 1 SPRAY NS DAILY, (Reported) 1 SPRAY EACH NARE DAILY Hydrocodone Bit/Acetaminophen 1 Tab Tab, 1-2 EACH PO Q6H PRN for PAIN-MODERATE Prescribed by: ALINE BAH on 12/04/18537 Loratadine 10 Mg Tablet, 10 MG PO DAILY, (Reported) Losartan Potassium 50 Mg Tablet, 50 MG PO DAILY, (Reported) Meloxicam 7.5 Mg Tablet, 7.5 MG PO DAILY, (Reported) Metformin HCl 500 Mg Tablet, 500 MG PO BID, (Reported) Pantoprazole Sodium 40 Mg Tablet.dr, 40 MG PO DAILY, (Reported) Prednisone 20 Mg Tab, 20 MG PO DAILY Prescribed by: ALINE BAH on 12/04/18537 Propranolol HCl 10 Mg Tablet, 10 MG PO BID, (Reported) Spironolactone 25 Mg Tablet, 25 MG PO DAILY, (Reported) Patient Home Medication List Home Medication List Reviewed: Yes Review of Systems Review of Systems Constitutional: see HPI Eyes: No Symptoms Reported Ears: No Symptoms Reported Nose: no symptoms reported Mouth: no symptoms reported Throat: no symptoms reported Respiratory: no symptoms reported Cardiovascular: no symptoms reported Musculoskeletal: no symptoms reported Skin: no symptoms reported Neurological: No Symptoms Reported Hematologic/Lymphatic: No Symptoms Reported Past Ioilihn-Khnzlx-Fsdypw Hx Patient Social History Alcohol Use: Denies Use Recreational Drug Use: No Smoking Status: Never a Smoker 2nd Hand Smoke Exposure: No Recent Foreign Travel: No Contact w/Someone Who Travel: No Recent Infectious Disease Expo: No Recent Hopitalizations: No Physical Abuse: No Sexual Abuse: No Mistreated: No Fear: No Immunizations Up To Date Tetanus Booster (TDap): More than 5yrs PED Vaccines UTD: No Seasonal Allergies Seasonal Allergies: Yes Past Medical History Surgeries: Yes Section, Gallbladder Respiratory: Yes Pneumonia Currently Using CPAP: No Currently Using BIPAP: No Cardiac: Yes (HEART MURMUR A CHILD) Heart Murmur, Hypertension Neurological: Yes Headaches /Migraines Reproductive Disorders: No Female Reproductive Disorders: Menstrual Problems Sexually Transmitted Disease: No HIV/AIDS: No Genitourinary: Yes UTI-Chronic Gastrointestinal: Yes Gastroesophageal Reflux, Chronic Constipation, Chronic Diarrhea Musculoskeletal: No Endocrine: Yes (MORBID OBESTIY, INSULIN RESISTANCE) Diabetes, Non-Insulin dep HEENT: Yes Tonsilitis Loss of Vision: Bilateral Hearing Impairment: Denies Cancer: No Psychosocial: No Integumentary: No Blood Disorders: Yes (ANEMIA) Adverse Reaction/Blood Tranf: No (N/A) Family Medical History Arthritis Asthma 19 FATHER (copd) 19 MOTHER (copd) Cardiovascular disease 19 FATHER (chf) Diabetes mellitus 19 FATHER Hypertension 19 FATHER 19 MOTHER G8 BROTHER G8 SISTER No Pertinent Family Hx Physical Exam Vital Signs Vital Signs - First Documented 09/21/19 09:05 Temp 36.3 Pulse 91 Resp 16 B/P (MAP) 189/135 (153) Pulse Ox 96 Height, Weight, BMI Height: 5'9.00" Weight: 354lbs. 0.0oz. 160.600578ik; 51.00 BMI Method:Stated General Appearance: WD/WN, no apparent distress Eyes: bilateral eye normal inspection, bilateral eye PERRL, bilateral eye EOMI Ears: bilateral ear auricle normal, bilateral ear canal normal, bilateral ear TM normal Nose: normal inspection; No active bleeding, No discharge, No dried blood, No foreign body; sinus tenderness Mouth/Throat: normal mouth inspection, pharynx normal Neck: non-tender, full range of motion Respiratory: no respiratory distress, no accessory muscle use Neurologic/Psychiatric: alert, normal mood/affect, oriented x 3 Skin: normal color, warm/dry There is no facial abrasion and ecchymosis erythema or evidence of injury Progress/Results/Core Measures Results/Orders My Orders Orders - ALLEGRA VILLATORO APRN Facial Bones, 3 Views Or More (09/21/19 10:45) Vital Signs/I&O 09/21/19 09:05 Temp 36.3 Pulse 91 Resp 16 B/P (MAP) 189/135 (153) Pulse Ox 96 Blood Pressure Mean: 153 Departure Impression Primary Impression: Facial contusion Qualified Codes: S00.83XA - Contusion of other part of head, initial encounter Disposition: 01 HOME, SELF-CARE Condition: Stable Departure-Patient Inst. Decision time for Depature: 10:48 Referrals: [facility] (PCP) Primary Care Physician CARISA KHAN (Family) Primary Care Physician Patient Instructions: Contusion (DC) ALLEGRA VILLATORO APRN Sep 21, 2019 10:49
--- NOTE | 2019-09-21 11:12 | Diagnostic Imaging Report ---
INDICATION: Facial injury. TIME OF EXAM: 11:05 a.m. TECHNIQUE: Three views of the facial bones were obtained. FINDINGS: The maxillary sinuses appear to be clear. No air-fluid levels are seen. No intraorbital gas is detected. Visualized mandible appears to be intact. No definite nasal bone fracture is seen. IMPRESSION: No facial fracture is identified. If there is high clinical index of suspicion for facial fracture, CT of the facial bones could be performed for further evaluation. Dictated by: Dictated on workstation # [id number]
[2019-09-21 11:38] VITALS: BP 174/98
--- OUTSIDE RECORDS SUMMARY | 2019-09-25 06:29 | XMS REPORT | Clinical Summary ---
Author Author [facility] Organization [facility] Address Unknown Phone Unavailable Care Team Providers Care Grain Operator Name Role Phone Diamante Bryant PUBLIC HEALTH NUTRITIONIST PCP Source Comments Some departments are not documenting in the electronic medical record. If you d o not see the information that you expected, contact Release of Information in [facility] [employer] Information Management department at [phone] for further assistan ce in locating additional records.[facility] Allergies Comments Active Allergy Reactions Severity Noted Date Codeine ANAPHYLAXIS High 01/25/2019 Hydrochlorothiazide ANAPHYLAXIS High 01/25/2019 Onion ANAPHYLAXIS High 01/25/2019 Medications End Date Status Medication Sig Dispensed Refills Start Date Active metFORMIN (GLUCOPHAGE) Take 500 mg 0 500 mg tablet by mouth twice daily with meals. Active diltiazem SA (+) (TIAZAC) Take 240 mg 0 240 mg capsule by mouth daily. Active furosemide (LASIX) 40 mg Take 40 mg by 0 tablet mouth every morning. Active potassium chloride Take 20 mEq 0 (K-TAB) 20 mEq tablet by mouth daily. Take with a meal and a full glass of water. Active losartan (COZAAR) 50 mg Take 50 mg by 0 tablet mouth daily. Active hydrOXYzine pamoate Take 25 mg by 0 (VISTARIL) 25 mg capsule mouth as Needed for Itching. Active pantoprazole DR Take 40 mg by 0 (PROTONIX) 40 mg tablet mouth daily. Active HYDROcodone/acetaminophen Take 1 tablet 0 (NORCO) 5/325 mg tablet by mouth as Needed for Pain Active propranolol (INDERAL) 10 Take 10 mg by 0 mg tablet mouth twice daily. Active butalbital/acetaminophen/ Take 1 tablet 0 caffeine(+) (FIORICET) by mouth as 50/325/40 mg tablet Needed for Headache. Active ferrous sulfate (FEOSOL, Take 325 mg 0 FEROSUL) 325 mg (65 mg by mouth iron) tablet daily. Take on an empty stomach at least 1 hour before or 2 hours after food. Active spironolactone Take 25 mg by 0 (ALDACTONE) 25 mg tablet mouth daily. Take with food. Active famotidine(+) (PEPCID) 40 Take 40 mg by 0 mg tablet mouth daily. Active Problems Not on file Family History Medical History Relation Name Comments COPD Father Cancer Father Diabetes Father Heart problem Father COPD Mother Diabetes Mother Hypertension Mother Relation Name Status Comments Father Mother Alive Social History Date Tobacco Use Types Packs/Day Years Used Never Smoker Smokeless Tobacco: Never Used Drinks/Week oz/Week Comments Alcohol Use Never Alcohol Habits Answer Date Recorded How often do you have a drink containing alcohol? Never 01/25/2019 How many drinks containing alcohol do you have on No t asked a typical day when you are drinking? How often do you have six or more drinks on one Not asked occasion? Sex Assigned at Date Recorded Not on file Industry Job Start Date Occupation Not on file Not on file Not on file Travel End Travel History Travel Start No recent travel history available. Last Filed Vital Signs Reading Time Taken Comments Vital Sign 157/104 01/25/2019 1:24 PM CDT Blood Pressure 81 01/25/2019 1:24 PM CDT Pulse - - Temperature 16 01/25/2019 1:24 PM CDT Respiratory Rate 97% 01/25/2019 1:24 PM CDT Oxygen Saturation - - Inhaled Oxygen Concentration 166.5 kg (367 lb) 01/25/2019 1:24 PM CDT Weight 175.3 cm (5' 9") 01/25/2019 1:24 PM CDT Height 54.2 01/25/2019 1:24 PM CDT Body Mass Index Plan of Treatment Health Maintenance Due Date Last Done Comments DTAP/TDAP VACCINES ( - 01/10/1987 Tdap) HIV SCREENING 01/10/1991 PHYSICAL (COMPREHENSIVE) 01/10/1994 EXAM CERVICAL CANCER SCREENING 01/10/2006 BREAST CANCER SCREENING 2016 INFLUENZA VACCINE 02/15/2019 06/07/2009 Results Not on filefrom Last 3 Months Insurance Type Payer Benefit Subscriber ID Effective Phone Address Plan / Dates Group AETNA MEDICAID AETNA xxxxxxxxxxx [id number] BETTER [facility] ([place] [place] [phone] 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
--- OUTSIDE RECORDS SUMMARY | 2019-09-25 06:31 | XMS REPORT ---
Author Author Jada KHAN [facility] Address [address] [place] [address] Care Team Providers Care Infrastructure Analyst Name Role Phone CARISA KHAN Unavailable PROBLEMS Type Condition ICD9-CM Code OLY84-JN Code Onset Dates Condition S tatus SNOMED Code Problem Tension headache G44.209 Active 398 804511 Problem DM neuro manif type II E11.49 Active 32826098 Problem Irritable bowel syndrome with diarrhea K58.0 Active 219400937 Problem Intractable migraine without aura and without st atus migrainosus G43.019 Active 695838690 Problem Menorrhagia with irregular cycle N92.1 Active 152662975 Problem Sleep apnea in adult G47.30 Active 58284026 Problem Other chronic pain G89.29 Active 8 1170880 Problem Iron deficiency anemia due to chronic blood loss D 50.0 Active 588059472 Problem Migraine with aura and without status migrainosu s, not intractable G43.109 Active 2794117 Problem Obstructive sleep apnea syndrome G47.33 Active 63857171 Problem Seasonal allergic rhinitis due to pollen J30.1 Active 95030598 Problem Localized osteoarthritis of left knee M17.12 Active 434759851 Problem HTN (hypertension) I10 Active 3 6101069 Problem Chronic tension-type headache, not intractable G44 .229 Active 507078777 Problem Primary osteoarthritis of left knee M17.12 Active [id number] Problem Hyperinsulinemia E16.1 Active 834 24794 Problem Food allergy Z91.018 Active 4540007 01 Problem Chronic venous insufficiency I87.2 A ctive 82991195 Problem Multiple allergies Z88.9 Active 6 57729750 Problem Migraine headache G43.909 Active 37 109616 ALLERGIES No Information ENCOUNTERS Encounter Location Date Diagnosis [facility] [address] [id number] [place] [address] Sep, [facility] [address] [place] [id number] [place] [address] Sep, [facility] [address] [place] [address] 15 Aug, 2019 Flu-like symptoms R68.89 [facility] [address] [place] [id number] [place] [address] 03 Aug, 2019 Sore throat J02.9 [facility] [address] [address] Jul, [facility] [address] [address] Jul, [facility] [address] [address] Jul, [facility] [address] [address] Jul, [place] [address] [address] Jul, Segmental dysfunction of thoracic region M99.02 ; Segmental dysfunction of lumbar region M99.03 ; Segmental dysfunction of cervical region M99.01 and Chronic tension-type headache, not intractable G44.229 [place] [address] [address] Jul, [facility] [address] [address] Jun, Localized osteoarthritis of left knee M1 7.12 [facility] [address] [place] [id number] [address] Jun, Acute non-recurrent sinusiti s, unspecified location J01.90 [place] [address] [address] Jun, [place] [address] [address] Jun, Viral upper respiratory tract infection J06.9 [facility] [address] [address] Jun, [facility] [address] [address] May, Prediabetes R73.03 and Iron deficiency a nemia due to chronic blood loss D50.0 [facility] [address] [address] May, [facility] [address] [address] May, Prediabetes R73.03 ; Left anterior knee pain M25.562 ; Encounter for immunization Z23 ; Migraine headache G43.909 ; Multiple allergies Z88.9 ; Snoring R06.83 and Iron deficiency anemia due to chronic blood loss D50.0 [facility] [address] [place] [address] 16 May, 2019 Nonintractable headache, uns pecified chronicity pattern, unspecified headache type R51 and Sore throat J02.9 [facility] [address] [address] 15 Apr, 2019 [place] [address] [address] 14 Apr, 2019 Fever, unspecified fever cause R50.9 and Chest congestion R09.89 [facility] [address] [place] [id number] [place] [address] 18 Mar, 2019 Abdominal pain R10.9 [place] [address] [address] 16 Mar, 2019 Chronic venous insufficiency I87.2 [place] [address] [address] Feb, [place] [address] [address] Feb, [place] [address] [address] Feb, [place] [address] [address] Feb, Seasonal allergic rhinitis due to pollen J30.1 ; Cervicalgia M54.2 ; Pain in right leg M79.604 ; Morbid obesity E66.01 and Obstructive sleep apnea syndrome G47.33 [facility] [address] [address] Jan, [facility] [address] [address] Jan, [place] [address] [address] Jan, [place] [address] [address] Jan, Food allergy Z91.018 [place] [address] [address] Jan, Right ear pain H92.01 ; DM neuro manif t ype II E11.49 and Morbid obesity E66.01 [place] [address] [address] Dec, Exercise counseling Z71.[address] [address] Dec, [place] [address] [address] Dec, Acute midline low back pain without scia gary M54.5 ; Migraine headache G43.909 ; Obstructive sleep apnea syndrome G47.33 ; Localized edema R60.0 and Morbid obesity E66.01 [facility] [address] [facility] [id number] [address] [place] [address] Dec, Migraine with aura and witho ut status migrainosus, not intractable G43.109 and Morbid obesity E66.01 [facility] [address] [address] November, [facility] [address] [address] November, [place] [address] [address] November, [place] [address] [address] November, Pain of left lower leg M79.662 [place] [address] [address] November, Pain of left lower leg M79.662 and Isabel diasis B37.9 [facility] [address] [place] [id number] [place] [place] [address] November, Left leg pain M79.605 [place] [address] [address] November, Pain in right leg M79.604 [place] [address] [address] Oct, Left leg pain M79.605 ; Left leg swellin g M79.89 and Morbid obesity E66.01 [place] [address] [address] Oct, Bronchitis J40 ; HTN (hypertension) I10 and Morbid obesity E66.01 [facility] IN [facility] [address] [facility] [id number] [address] [place] [address] Oct, Sore throat J02.9 and Morbid obesity E66.01 [place] [address] [address] Oct, [place] [address] [address] Oct, Allergy, food Z91.018 ; Candidiasis B37. 9 and Morbid obesity E66.01 [place] [address] [address] Sep, [place] [address] [address] Sep, Intractable migraine without aura and wi thout status migrainosus G43.019 ; Allergic reaction to food, subsequent encounter T78.1XXD ; HTN (hypertension) I10 and Morbid obesity E66.01 [place] [address] [address] Jul, [facility] IN [place] [address] [address] Jul, Rash R21 and BMI 50.0-59.9, adult Z68.43 [place] [address] [address] 28 Jun, 2018 Hyperinsulinemia E16.1 and Menorrhagia w ith irregular cycle N92.[address] [address] Jun, Primary osteoarthritis of left knee M17. 12 [facility] [place] [address] [address] 12 Jun, 2018 Sore throat J02.9 ; Acute na sopharyngitis J00 and BMI 50.0-59.9, adult Z68.43 [place] [address] [address] 05 Jun, 2018 Other chronic pain G89.29 ; Pain in left knee M25.562 ; Hyperinsulinemia E16.1 ; Menorrhagia with irregular cycle N92.1 and BMI 50.0- 59.9, adult Z68.43 [facility] [place] [address] [address] Apr, BMI 50.0-59.9, adult Z68.43 ; Dysuria R30.0 and Acute UTI N39.0 [place] [address] [address] Apr, [address] [address] Apr, Encounter for immunization Z23 [address] [address] 27 Mar, 2018 Acute midline low back pain without scia gary M54.5 ; Acute pain of left knee M25.562 and BMI 50.0-59.9, adult Z68.43 [facility] [address] [address] Mar, Intractable migraine without aura and wi thout status migrainosus G43.019 and BMI 50.0-59.9, adult Z68.43 [facility] [address] [address] 05 Mar, 2018 Bronchitis J40 ; Allergy to food Z91.018 and BMI 50.0-59.9, adult Z68.43 [facility] IN [facility] [address] [facility] [id number] [address] [place] [address] Mar, Bronchitis J40 ; Wheezing on both sides of chest R06.2 and BMI 50.0-59.9, adult Z68.43 [place] [address] [address] Feb, Pain in right leg M79.604 [place] [address] [address] Jan, Pneumonia of left lung due to infectious organism, unspecified part of lung J18.9 [place] [address] [address] Dec, Pneumonia due to Mycoplasma pneumoniae, unspecified laterality, unspecified part of lung J15.7 and BMI 50.0-59.9, adult Z68.43 [facility] [address] [address] Dec, [place] [address] [address] Dec, Bronchitis J40 and BMI 50.0-59.9, adult Z68.43 [facility] [address] [address] November, Bronchitis J40 ; LLQ pain R10.32 and BMI 50.0-59.9, adult Z68.43 [place] [address] [address] November, Iron deficiency anemia due to chronic bl ood loss D50.0 [place] [address] [address] November, [place] [address] [address] November, Iron deficiency anemia due to chronic bl ood loss D50.0 ; DM neuro manif type II E11.49 ; Menorrhagia with irregular cycle N92.1 and BMI 50.0-59.9, adult Z68.43 [facility] IN [place] [address] [address] Oct, Sore throat J02.9 and Acute nasopharyngitis J00 [facility] IN [address] [address] Oct, Left leg pain M79.605 and BM I 50.0-59.9, adult Z68.43 [facility] IN [place] [address] [address] Sep, Upper respiratory tract infe ction, unspecified type J06.9 and BMI 50.0-59.9, adult Z68.43 [place] [address] [address] Sep, Menorrhagia with irregular cycle N92.1 ; Sleep apnea in adult G47.30 and BMI 50.0-59.9, adult Z68.43 [place] [address] [address] Sep, [place] [address] [address] Aug, [place] [address] [address] Aug, [place] [address] [address] Aug, [place] [address] [address] Aug, LLQ pain R10.32 ; Irritable bowel syndro me with diarrhea K58.0 ; Change in bowel habits R19.4 ; Essential hypertension I10 and BMI 50.0-59.9, adult Z68.43 [place] [address] [address] Aug, [place] [address] [address] Aug, [facility] IN [place] [address] [address] Aug, Essential hypertension I10 a nd BMI 50.0-59.9, adult Z68.43 [place] [address] [address] Aug, [place] [address] [address] 08 Aug, 2017 [facility] [place] [address] [place] [id number] [place] [address] 02 Aug, 2017 Allergic disorder, initial e ncounter T78.40XA and BMI 50.0-59.9, adult Z68.43 [facility] IN [place] [address] [place] [id number] [place] [address] Jul, Other atopic dermatitis L20. 89 and BMI 50.0-59.9, adult Z68.43 [place] [address] [address] Jul, Intractable migraine without aura and wi thout status migrainosus G43.019 and BMI 50.0-59.9, adult Z68.43 [place] [address] [address] Jun, DM neuro manif type II E11.49 ; Tension headache G44.209 ; Breast cancer screening Z12.31 and BMI 50.0-59.9, adult Z68.43 [facility] [address] [address] Jun, Tension headache G44.209 ; Breast cancer screening Z12.31 ; BMI 50.0- 59.9, adult Z68.43 and DM neuro manif type II E11.49 [facility] [address] [facility] [id number] [address] [place] [address] Apr, Dysuria R30.0 and Acute cyst itis with hematuria N30.01 [place] [address] [address] Apr, Hyperinsulinemia E16.1 [place] [address] [address] Mar, Acute non-recurrent maxillary sinusitis J01.00 [place] [address] [address] Feb, Cellulitis of unspecified part of limb L 03.119 ; Spider bite wound, accidental or unintentional, subsequent encounter T63.301D and BMI 50.0-59.9, adult Z68.43 [place] [address] [address] Jan, [place] [address] [address] Jan, Urinary tract infection, site unspecifie d N39.0 [place] [address] [address] Jan, Acute gastritis without hemorrhage, unsp ecified gastritis type K29.00 [place] [address] [address] Dec, Pain in right leg M79.604 [place] [address] [address] Dec, Hyperinsulinemia E16.1 and Pain in right leg M79.604 [place] [address] [address] Dec, Angioedema, initial encounter T78.3XXA [place] [address] [address] 15 Dec, 2016 Dental examination Z01.20 [place] [address] [address] 13 Dec, 2016 [place] [address] [address] Dec, Burning with urination R30.0 and Acute c ystitis with hematuria N30.01 [place] [address] [address] Oct, [place] [address] [address] Sep, [place] [address] [address] Aug, Hyperinsulinemia E16.1 [place] [address] [address] Aug, [place] [address] [address] Jul, [place] [address] [address] Jul, Chondromalacia, left knee M94.262 and Ac cassie lateral meniscus tear of left knee, initial encounter S83.282A [place] [address] [address] Jul, [place] [address] [address] Jun, Hyperinsulinemia E16.1 [place] [address] [address] Jun, Dysuria R30.0 ; Back pain M54.9 ; Acute pain of left knee M25.562 and Hyperinsulinemia E16.1 [place] [address] [address] Jun, Acute non-recurrent maxillary sinusitis J01.00 [facility] [address] [address] 05 Jun, 2016 Dysuria R30.0 [facility] [address] [address] 05 Jun, 2016 Dysuria R30.0 [facility] [address] [address] Jun, [facility] [address] [address] May, Dysuria R30.0 and Acute cystitis with he maturia N30.01 [facility] [address] [address] May, Hyperinsulinemia E16.1 [facility] [address] [address] May, [facility] [address] [address] May, Sore throat J02.9 [facility] [address] [address] May, [facility] [address] [address] Mar, Hyperinsulinemia E16.1 [facility] [address] [address] Jan, Hyperinsulinemia E16.1 [facility] [address] [address] Dec, DM neuro manif type II E11.49 [facility] [address] [place] [address] November, Hyperinsulinemia E16.1 and Hypertension I10 [facility] [address] [address] Oct, [facility] [address] [address] 22 Apr, 2016 Hyperinsulinemia E16.1 [facility] [id number] [place] [address] 20 Oct, 2015 Pain, unspecified R52 [facility] [id number] [place] [address] 14 Oct, 2015 Pain in right foot M79.671 and Hyperinsu linemia E16.1 [facility] [address] [address] 14 Oct, 2015 Hyperinsulinemia E16.1 [facility] [address] [address] 12 Oct, 2015 Hyperinsulinemia E16.1 [facility] [address] [address] 17 Aug, 2015 Hypertension I10 and Viral illness B34.9 [facility] [address] [address] May, Back pain M54.9 [facility] [address] [address] 14 Oct, 2014 [facility] [address] [address] Oct, [facility] [address] [address] 30 Sep, 2014 [facility] [address] [address] 30 Sep, 2014 [facility] [address] [address] Sep, [facility] [id number] [place] [address] 17 Sep, 2014 [facility] [address] [address] Sep, [facility] [address] [place] [address] [id number] [place] [address] Sep, [facility] [address] [address] Sep, [facility] [address] [facility] [id number] [place] [address] Sep, 2014 [facility] [address] [id number] [place] [address] Sep, 2014 [facility] [address] [id number] [place] [address] Sep, 2014 [facility] [address] [id number] [place] [address] Sep, 2014 [facility] [address] [id number] [place] [address] Sep, 2014 [facility] [address] [id number] [place] [address] Mar, [facility] [address] [id number] [place] [address] Mar, [facility] [address] [id number] [place] [address] Feb, [facility] [address] [id number] [place] [address] Feb, [facility] [address] [id number] [place] [address] Feb, [facility] [address] [id number] [place] [address] Feb, [facility] [address] [id number] [place] [address] Dec, [facility] [address] [id number] [place] [address] Dec, [facility] [address] [id number] [place] [address] Dec, [facility] [address] [id number] [place] [address] Dec, [facility] [address] [id number] [place] [address] Dec, [facility] [address] [id number] [place] [address] Dec, [facility] [address] [facility] [id number] [place] [address] Dec, [facility] [address] [facility] [id number] [place] [address] Sep, [facility] [address] [id number] [place] [address] Sep, [facility] [address] [id number] [place] [address] Sep, [facility] [address] [facility] [id number] [place] [address] Sep, [facility] [address] [id number] [place] [address] Sep, [facility] [address] [id number] [place] [address] Sep, [facility] [address] [id number] [place] [address] Sep, [facility] [address] [id number] [place] [address] Sep, [facility] [address] [id number] [place] [address] Jul, [facility] [address] [id number] [place] [address] Jul, [facility] [address] [id number] [place] [address] Jun, [facility] [address] [id number] [place] [address] Jun, [facility] [address] [id number] [place] [address] May, [facility] [address] [id number] [place] [address] May, [facility] [address] [id number] [place] [address] May, [facility] [address] [id number] [place] [address] May, [facility] [address] [id number] [place] [address] May, [facility] [address] [id number] [place] [address] May, [facility] [address] [id number] [place] [address] May, [facility] [address] [id number] [place] [address] Apr, [facility] [address] [id number] [place] [address] Apr, [facility] [address] [id number] [place] [address] Apr, [facility] [address] [id number] [place] [address] Apr, [facility] [address] [id number] [place] [address] Apr, [facility] [address] [id number] [place] [address] Apr, [facility] [address] [id number] [place] [address] Mar, [facility] [address] [id number] [place] [address] Feb, [facility] [address] [id number] [place] [address] Jan, [facility] [address] [id number] [place] [address] Jan, [facility] [id number] [place] [address] Jan, [facility] [address] [id number] [place] [address] Dec, [facility] [address] [id number] [place] [address] November, [facility] [address] [id number] [place] [address] November, [facility] [address] [id number] [place] [address] November, [facility] [address] [id number] [place] [address] November, [facility] [address] [id number] [place] [address] Oct, [facility] [address] [id number] [place] [address] Aug, [facility] [address] [id number] [place] [address] Aug, [facility] [address] [id number] [place] [address] Aug, [facility] [id number] [place] [address] Aug[facility] [address] [id number] [place] [address] Aug, [facility] [id number] [place] [address] Aug, [facility] [address] [id number] [place] [address] Jul, [facility] [id number] [place] [address] May, [facility] [address] [id number] [place] [address] May, [facility] [address] [id number] [place] [address] May[facility] [address] [id number] [place] [address] May, [facility] [address] [id number] [place] [address] May, [facility] [address] [id number] [place] [address] May, [facility] [address] [id number] [place] [address] May, [facility] [address] [id number] [place] [address] Apr, [facility] [address] [id number] [place] [address] Apr, [facility] [address] [id number] [place] [address] Apr, [facility] [address] [id number] [place] [address] Apr, [facility] [address] [id number] [place] [address] Apr, [facility] [address] [id number] [place] [address] Sep, [facility] [address] [id number] [place] [address] Aug, [facility] [address] [id number] [place] [address] Aug, [facility] [address] [id number] [place] [address] Aug, [facility] [address] [id number] [place] [address] Aug, [facility] [address] [id number] [place] [address] Aug, [facility] [address] [id number] [place] [address] Jul, [facility] [address] [id number] [place] [address] Jul, [facility] [address] [id number] [place] [address] Jul, [facility] [address] [id number] [place] [address] Jun, [facility] [address] [id number] [place] [address] Jun, [facility] [address] [id number] [place] [address] Jun, [facility] [address] [id number] [place] [address] May, [facility] [address] [id number] [place] [address] Apr, [facility] [id number] [place] [address] Apr, [facility] [address] [id number] [place] [address] Apr, [facility] [address] [id number] [place] [address] Apr, IMMUNIZATIONS No Known Immunizations SOCIAL HISTORY [...]
--- OUTSIDE RECORDS SUMMARY | 2019-09-25 06:31 | XMS REPORT ---
Author Author Jada KHAN Organization [facility] Address [address] [place] [address] Care Team Providers Care House Carpenter Name Role Phone CARISA KHAN Unavailable PROBLEMS Type Condition ICD9-CM Code ESY02-PI Code Onset Dates Condition S tatus SNOMED Code Problem Tension headache G44.209 Active 398 628070 Problem DM neuro manif type II E11.49 Active 22442284 Problem Irritable bowel syndrome with diarrhea K58.0 Active 594850750 Problem Intractable migraine without aura and without st atus migrainosus G43.019 Active 041341924 Problem Menorrhagia with irregular cycle N92.1 Active 508731398 Problem Sleep apnea in adult G47.30 Active 45324210 Problem Other chronic pain G89.29 Active 8 2992675 Problem Iron deficiency anemia due to chronic blood loss D 50.0 Active 778701233 Problem Migraine with aura and without status migrainosu s, not intractable G43.109 Active 4950163 Problem Obstructive sleep apnea syndrome G47.33 Active 03828294 Problem Seasonal allergic rhinitis due to pollen J30.1 Active 57322235 Problem Localized osteoarthritis of left knee M17.12 Active 915337624 Problem HTN (hypertension) I10 Active 3 7917790 Problem Chronic tension-type headache, not intractable G44 .229 Active 796211092 Problem Primary osteoarthritis of left knee M17.12 Active 431493611084261 Problem Hyperinsulinemia E16.1 Active 834 62119 Problem Food allergy Z91.018 Active 8907118 01 Problem Chronic venous insufficiency I87.2 A ctive 64050298 Problem Multiple allergies Z88.9 Active 6 88003608 Problem Migraine headache G43.909 Active 37 261120 ALLERGIES No Information ENCOUNTERS Encounter Location Date Diagnosis [facility] [address] [facility] [id number] [place] [address] Sep, [facility] [address] [place] [id number] [address] [place] [address] 15 Aug, 2019 Flu-like symptoms R68.[address] [facility] [address] [place] [id number] [address] [place] [address] 03 Aug, 2019 Sore throat J02.9 [facility] [address] [address] Jul, [facility] [address] [address] Jul, [facility] [address] [address] Jul, [facility] [address] [address] Jul, [facility] [address] [address] Jul, Segmental dysfunction of thoracic region M99.02 ; Segmental dysfunction of lumbar region M99.03 ; Segmental dysfunction of cervical region M99.01 and Chronic tension-type headache, not intractable G44.229 [place] [address] [address] Jul, [place] [address] [address] Jun, Localized osteoarthritis of left knee M1 7.12 [facility] [address] [place] [id number] [address] [place] [address] Jun, Acute non-recurrent sinusiti s, unspecified location J01.90 [place] [address] [address] Jun, [place] [address] [address] Jun, Viral upper respiratory tract infection J06.9 [facility] [address] [address] Jun, [facility] [address] [address] May, Prediabetes R73.03 and Iron deficiency a nemia due to chronic blood loss D50.0 [place] [address] [address] May, [place] [address] [address] May, Prediabetes R73.03 ; Left anterior knee pain M25.562 ; Encounter for immunization Z23 ; Migraine headache G43.909 ; Multiple allergies Z88.9 ; Snoring R06.83 and Iron deficiency anemia due to chronic blood loss D50.0 [facility] [address] [address] 16 May, 2019 Nonintractable headache, uns pecified chronicity pattern, unspecified headache type R51 and Sore throat J02.9 [place] [address] [address] Apr, [place] [address] [address] 14 Apr, 2019 Fever, unspecified fever cause R50.9 and Chest congestion R09.89 [facility] [address] [address] 18 Mar, 2019 Abdominal pain R10.9 [place] [address] [address] Mar, Chronic venous insufficiency I87.2 [place] [address] [address] Feb, [place] [address] [address] Feb, [place] [address] [address] Feb, [place] [address] [address] Feb, Seasonal allergic rhinitis due to pollen J30.1 ; Cervicalgia M54.2 ; Pain in right leg M79.604 ; Morbid obesity E66.01 and Obstructive sleep apnea syndrome G47.33 [place] [address] [address] Jan, [facility] [address] [address] Jan, [place] [address] [address] Jan, [facility] [address] [address] Jan, Food allergy Z91.[address] [address] Jan, Right ear pain H92.01 ; DM neuro manif t ype II E11.49 and Morbid obesity E66.[address] [address] Dec, Exercise counseling Z71.82 [place] [address] [address] Dec, [place] [address] [address] Dec, Acute midline low back pain without scia gary M54.5 ; Migraine headache G43.909 ; Obstructive sleep apnea syndrome G47.33 ; Localized edema R60.0 and Morbid obesity E66.01 [facility] [address] [facility] [id number] [address] [address] Dec, Migraine with aura and witho ut status migrainosus, not intractable G43.109 and Morbid obesity E66.01 [facility] [address] [address] November, [facility] [address] [address] November, [place] [address] [address] November, [place] [address] [address] November, Pain of left lower leg M79.662 [facility] [address] [address] November, Pain of left lower leg M79.662 and Isabel diasis B37.9 [facility] [address] [facility] [id number] [address] [address] November, Left leg pain M79.605 [place] [address] [address] November, Pain in right leg M79.604 [place] [address] [address] Oct, Left leg pain M79.605 ; Left leg swellin g M79.89 and Morbid obesity E66.01 [place] [address] [address] Oct, Bronchitis J40 ; HTN (hypertension) I10 and Morbid obesity E66.01 [facility] [address] [facility] [id number] [address] [address] Oct, Sore throat J02.9 and Morbid obesity E66.01 [place] [address] [address] Oct, [place] [address] [address] Oct, Allergy, food Z91.018 ; Candidiasis B37. 9 and Morbid obesity E66.01 [place] [address] [address] Sep, [place] [address] [address] Sep, Intractable migraine without aura and wi thout status migrainosus G43.019 ; Allergic reaction to food, subsequent encounter T78.1XXD ; HTN (hypertension) I10 and Morbid obesity E66.01 [place] [address] [address] Jul, [facility] [place] [address] [address] Jul, Rash R21 and BMI 50.0-59.9, adult Z68.43 [place] [address] [address] 28 Jun, 2018 Hyperinsulinemia E16.1 and Menorrhagia w ith irregular cycle N92.1 [place] [address] [address] Jun, Primary osteoarthritis of left knee M17. 12 [facility] [place] [address] [address] Jun, Sore throat J02.9 ; Acute na sopharyngitis J00 and BMI 50.0-59.9, adult Z68.43 [place] [address] [address] 05 Jun, 2018 Other chronic pain G89.29 ; Pain in left knee M25.562 ; Hyperinsulinemia E16.1 ; Menorrhagia with irregular cycle N92.1 and BMI 50.0- 59.9, adult Z68.43 [facility] [place] [address] [address] Apr, BMI 50.0-59.9, adult Z68.43 ; Dysuria R30.0 and Acute UTI N39.0 [place] [address] [address] Apr, [place] [address] [address] Apr, Encounter for immunization Z23 [place] [address] [address] 27 Mar, 2018 Acute midline low back pain without scia gary M54.5 ; Acute pain of left knee M25.562 and BMI 50.0-59.9, adult Z68.43 [place] [address] [address] Mar, Intractable migraine without aura and wi thout status migrainosus G43.019 and BMI 50.0-59.9, adult Z68.43 [place] [address] [address] Mar, Bronchitis J40 ; Allergy to food Z91.018 and BMI 50.0-59.9, adult Z68.43 [facility] [address] [facility] [id number] [address] [place] [address] Mar, Bronchitis J40 ; Wheezing on both sides of chest R06.2 and BMI 50.0-59.9, adult Z68.43 [place] [address] [address] Feb, Pain in right leg M79.604 [place] [address] [address] Jan, Pneumonia of left lung due to infectious organism, unspecified part of lung J18.9 [place] [address] [address] Dec, Pneumonia due to Mycoplasma pneumoniae, unspecified laterality, unspecified part of lung J15.7 and BMI 50.0-59.9, adult Z68.43 [place] [address] [address] Dec, [place] [address] [address] Dec, Bronchitis J40 and BMI 50.0-59.9, adult Z68.43 [place] [address] [address] November, Bronchitis J40 ; LLQ pain R10.32 and BMI 50.0-59.9, adult Z68.43 [place] [address] [address] November, Iron deficiency anemia due to chronic bl ood loss D50.0 [place] [address] [address] November, [place] [address] [address] November, Iron deficiency anemia due to chronic bl ood loss D50.0 ; DM neuro manif type II E11.49 ; Menorrhagia with irregular cycle N92.1 and BMI 50.0-59.9, adult Z68.43 [facility] [place] [address] [address] Oct, Sore throat J02.9 and Acute nasopharyngitis J00 [facility] [address] [address] Oct, Left leg pain M79.605 and BM I 50.0-59.9, adult Z68.43 [facility] [place] [address] [address] Sep, Upper respiratory tract infe ction, unspecified type J06.9 and BMI 50.0-59.9, adult Z68.43 [place] [address] [address] Sep, Menorrhagia with irregular cycle N92.1 ; Sleep apnea in adult G47.30 and BMI 50.0-59.9, adult Z68.43 [place] [address] [address] Sep, [place] [address] [address] Aug, [place] [address] [address] Aug, [place] [address] [address] Aug, [place] [address] [address] Aug, LLQ pain R10.32 ; Irritable bowel syndro me with diarrhea K58.0 ; Change in bowel habits R19.4 ; Essential hypertension I10 and BMI 50.0-59.9, adult Z68.43 [place] [address] [address] Aug, [place] [address] [address] Aug, [facility] [address] [address] Aug, Essential hypertension I10 a nd BMI 50.0-59.9, adult Z68.43 [place] [address] [address] Aug, [address] [address] Aug, [facility] [place] [id number] [address] [place] [address] Aug, Allergic disorder, initial e ncounter T78.40XA and BMI 50.0-59.9, adult Z68.43 [facility] [address] [address] Jul, Other atopic dermatitis L20. 89 and BMI 50.0-59.9, adult Z68.43 [place] [address] [address] Jul, Intractable migraine without aura and wi thout status migrainosus G43.019 and BMI 50.0-59.9, adult Z68.[address] [address] Jun, DM neuro manif type II E11.49 ; Tension headache G44.209 ; Breast cancer screening Z12.31 and BMI 50.0-59.9, adult Z68.43 [place] [address] [address] Jun, Tension headache G44.209 ; Breast cancer screening Z12.31 ; BMI 50.0- 59.9, adult Z68.43 and DM neuro manif type II E11.49 [facility] [address] [facility] [id number] [address] [place] [address] Apr, Dysuria R30.0 and Acute cyst itis with hematuria N30.01 [facility] [address] [address] Apr, Hyperinsulinemia E16.1 [place] [address] [address] Mar, Acute non-recurrent maxillary sinusitis J01.00 [place] [address] [address] Feb, Cellulitis of unspecified part of limb L 03.119 ; Spider bite wound, accidental or unintentional, subsequent encounter T63.301D and BMI 50.0-59.9, adult Z68.43 [facility] [address] [address] Jan, [place] [address] [address] Jan, Urinary tract infection, site unspecifie d N39.0 [place] [address] [address] Jan, Acute gastritis without hemorrhage, unsp ecified gastritis type K29.00 [facility] [address] [address] Dec, Pain in right leg M79.[address] [address] Dec, Hyperinsulinemia E16.1 and Pain in right leg M79.604 [place] [address] [address] Dec, Angioedema, initial encounter T78.3XXA [place] [address] [address] 15 Dec, 2016 Dental examination Z01.20 [place] [address] [address] 13 Dec, 2016 [place] [address] [address] Dec, Burning with urination R30.0 and Acute c ystitis with hematuria N30.01 [place] [address] [address] Oct, [place] [address] [address] Sep, [place] [address] [address] Aug, Hyperinsulinemia E16.1 [place] [address] [address] Aug, [place] [address] [address] Jul, [place] [address] [address] Jul, Chondromalacia, left knee M94.262 and Ac [place] lateral meniscus tear of left knee, initial encounter S83.282A [place] [address] [address] Jul, [place] [address] [address] Jun, Hyperinsulinemia E16.1 [place] [address] [address] Jun, Dysuria R30.0 ; Back pain M54.9 ; Acute pain of left knee M25.562 and Hyperinsulinemia E16.1 [place] [address] [address] Jun, Acute non-recurrent maxillary sinusitis J01.00 [place] [address] [address] 05 Jun, 2016 Dysuria R30.0 [facility] [address] [address] Jun, Dysuria R30.0 [facility] [address] [address] Jun, [facility] [address] [address] May, Dysuria R30.0 and Acute cystitis with he maturia N30.01 [facility] [address] [address] May, Hyperinsulinemia E16.1 [facility] [address] [address] May, [facility] [address] [address] May, Sore throat J02.9 [facility] [address] [address] May, [facility] [address] [address] Mar, Hyperinsulinemia E16.1 [facility] [address] [address] Jan, Hyperinsulinemia E16.1 [facility] [address] [address] Dec, DM neuro manif type II E11.49 [facility] [address] [address] November, Hyperinsulinemia E16.1 and Hypertension I10 [facility] [address] [address] Oct, [facility] [address] [address] Oct, Hyperinsulinemia E16.1 [facility] [address] [address] Oct, Pain, unspecified R52 [facility] [address] [place] [id number] [place] [address] 14 Oct, 2016 Pain in right foot M79.671 and Hyperinsu linemia E16.1 [facility] [address] [place] [id number] [place] [address] 14 Oct, 2015 Hyperinsulinemia E16.1 [facility] [address] [place] [id number] [place] [address] 12 Oct, 2015 Hyperinsulinemia E16.1 [facility] [address] [place] [id number] [place] [address] 17 Aug, 2015 Hypertension I10 and Viral illness B34.9 [facility] [address] [place] [id number] [place] [address] 18 May, 2015 Back pain M54.9 [facility] [address] [place] [id number] [place] [address] 14 Oct, 2014 [facility] [address] [address] Oct, [facility] [address] [place] [id number] [place] [address] 30 Sep, 2014 [facility] [address] [address] 30 Sep, 2014 [facility] [address] [address] Sep, [facility] [address] [place] [id number] [place] [address] Sep, [facility] [address] [place] [id number] [place] [address] Sep, [facility] [address] [address] Sep, [facility] [address] [place] [id number] [place] [address] Sep, [facility] [address] [address] Sep, [facility] [address] [facility] [id number] [place] [address] Sep, 2014 [facility] [address] [id number] [place] [address] Sep, 2014 [facility] [address] [id number] [place] [address] Sep, 2014 [facility] [address] [id number] [place] [address] Sep, 2014 [facility] [address] [facility] [id number] [place] [address] Mar, 2013 [facility] [address] [id number] [place] [address] Mar, [facility] [address] [id number] [place] [address] Feb, [facility] [address] [id number] [place] [address] Feb, [facility] [address] [id number] [place] [address] Feb, [facility] [address] [id number] [place] [address] Feb, [facility] [address] [id number] [place] [address] Dec, [facility] [address] [id number] [place] [address] Dec, [facility] [address] [id number] [place] [address] Dec, [facility] [address] [id number] [place] [address] Dec, [facility] [address] [id number] [place] [address] Dec, [facility] [address] [id number] [place] [address] Dec, [facility] [address] [id number] [place] [address] Dec, [facility] [address] [facility] [id number] [place] [address] Sep, [facility] [address] [facility] [id number] [place] [address] Sep, [facility] [address] [id number] [place] [address] Sep, [facility] [address] [id number] [place] [address] Sep, [facility] [address] [facility] [id number] [place] [address] Sep, [facility] [address] [id number] [place] [address] Sep, [facility] [address] [id number] [place] [address] Sep, [facility] [address] [id number] [place] [address] Sep, [facility] [address] [id number] [place] [address] Jul, [facility] [address] [id number] [place] [address] Jul, [facility] [address] [id number] [place] [address] Jun, [facility] [address] [id number] [place] [address] Jun, [facility] [address] [id number] [place] [address] May, [facility] [address] [id number] [place] [address] May, [facility] [address] [id number] [place] [address] May, [facility] [address] [id number] [place] [address] May, [facility] [address] [id number] [place] [address] May, [facility] [address] [id number] [place] [address] May, [facility] [address] [id number] [place] [address] May, [facility] [address] [id number] [place] [address] Apr, [facility] [address] [id number] [place] [address] Apr, [facility] [address] [id number] [place] [address] Apr, [facility] [address] [id number] [place] [address] Apr, [facility] [address] [id number] [place] [address] Apr, [facility] [address] [id number] [place] [address] Apr, [facility] [address] [id number] [place] [address] Mar, [facility] [address] [id number] [place] [address] Feb, [facility] [address] [id number] [place] [address] Jan, [facility] [address] [id number] [place] [address] Jan, [facility] [address] [id number] [place] [address] Jan, [facility] [id number] [place] [address] Dec, [facility] [address] [id number] [place] [address] November, [facility] [address] [id number] [place] [address] November, [facility] [address] [id number] [place] [address] November, [facility] [address] [id number] [place] [address] November, [facility] [address] [id number] [place] [address] Oct, [facility] [address] [id number] [place] [address] Aug, [facility] [address] [id number] [place] [address] Aug, [facility] [address] [id number] [place] [address] Aug, [facility] [address] [id number] [place] [address] Aug, [facility] [id number] [place] [address] Aug, [facility] [address] [id number] [place] [address] Aug, [facility] [address] [id number] [place] [address] Jul, [facility] [address] [id number] [place] [address] May, [facility] [id number] [place] [address] May, [facility] [address] [id number] [place] [address] May, [facility] [address] [id number] [place] [address] May, [facility] [address] [id number] [place] [address] May, [facility] [address] [id number] [place] [id number] May, [facility] [address] [id number] [place] [address] May, [facility] [address] [id number] [place] [address] Apr, [facility] [address] [id number] [place] [address] Apr, [facility] [address] [id number] [place] [address] Apr, [facility] [address] [id number] [place] [address] Apr, [facility] [address] [id number] [place] [address] Apr, [facility] [address] [id number] [place] [address] Sep, [facility] [address] [id number] [place] [address] Aug, [facility] [address] [id number] [place] [address] Aug, [facility] [address] [id number] [place] [address] Aug, [facility] [address] [id number] [place] [address] Aug, [facility] [address] [id number] [place] [address] Aug, [facility] [address] [id number] [place] [address] Jul, [facility] [address] [id number] [place] [address] Jul, [facility] [id number] [place] [address] Jul, [facility] [address] [id number] [place] [address] Jun, [facility] [address] [id number] [place] [address] Jun, [facility] [address] [id number] [place] [address] Jun, [facility] [address] [id number] [place] [address] May, [facility] [address] [id number] [place] [address] Apr, [facility] [address] [id number] [place] [address] Apr, [facility] [address] [id number] [place] [address] Apr, [facility] [address] [id number] [place] [address] Apr, IMMUNIZATIONS No Known Immunizations SOCIAL HISTORY [...]
--- OUTSIDE RECORDS SUMMARY | 2019-09-25 06:32 | XMS REPORT ---
Author Author Jada KHAN [facility] Address [address] [place] [address] Care Team Providers Care Radar Operator Name Role Phone CARISA HKAN Unavailable PROBLEMS Type Condition ICD9-CM Code [id number] Code Onset Dates Condition S tatus SNOMED Code Problem Tension headache G44.209 Active 398 237758 Problem DM neuro manif type II E11.49 Active 95054243 Problem Irritable bowel syndrome with diarrhea K58.0 Active 976639038 Problem Intractable migraine without aura and without st atus migrainosus G43.019 Active 155350668 Problem Menorrhagia with irregular cycle N92.1 Active 004530062 Problem Sleep apnea in adult G47.30 Active 58928527 Problem Other chronic pain G89.29 Active 8 7865040 Problem Iron deficiency anemia due to chronic blood loss D 50.0 Active 410303726 Problem Migraine with aura and without status migrainosu s, not intractable G43.109 Active 2973631 Problem Obstructive sleep apnea syndrome G47.33 Active 70024257 Problem Seasonal allergic rhinitis due to pollen J30.1 Active 18227855 Problem Localized osteoarthritis of left knee M17.12 Active 452217424 Problem HTN (hypertension) I10 Active 3 0085059 Problem Chronic tension-type headache, not intractable G44 .229 Active 530441006 Problem Primary osteoarthritis of left knee M17.12 Active [id number] Problem Hyperinsulinemia E16.1 Active 834 45209 Problem Food allergy Z91.018 Active 8575718 01 Problem Chronic venous insufficiency I87.2 A ctive 19374256 Problem Multiple allergies Z88.9 Active 6 21380412 Problem Migraine headache G43.909 Active 37 758744 ALLERGIES No Information ENCOUNTERS Encounter Location Date Diagnosis [facility] [address] [facility] [id number] [address] [place] [address] 15 Aug, 2019 Flu-like symptoms R68.89 [facility] [address] [facility] [id number] [place] [address] Aug, Sore throat J02.9 [place] [address] [address] Jul, [facility] [address] [address] Jul, [facility] [address] [address] Jul, [facility] [address] [address] Jul, [place] [address] [address] Jul, Segmental dysfunction of thoracic region M99.02 ; Segmental dysfunction of lumbar region M99.03 ; Segmental dysfunction of cervical region M99.01 and Chronic tension-type headache, not intractable G44.229 [place] [address] [address] Jul, [facility] [address] [address] Jun, Localized osteoarthritis of left knee M1 7.12 [facility] WALK IN [facility] [address] [facility] [id number] [address] [address] 17 Jun, 2019 Acute non-recurrent sinusiti s, unspecified location J01.90 [place] [address] [address] Jun, [place] [address] [address] Jun, Viral upper respiratory tract infection J06.9 [place] [address] [address] Jun, [place] [address] [address] May, Prediabetes R73.03 and Iron deficiency a nemia due to chronic blood loss D50.0 [place] [address] [address] 21 May, 2019 [place] [address] [address] May, Prediabetes R73.03 ; Left anterior knee pain M25.562 ; Encounter for immunization Z23 ; Migraine headache G43.909 ; Multiple allergies Z88.9 ; Snoring R06.83 and Iron deficiency anemia due to chronic blood loss D50.0 [facility] WALK IN [facility] [address] [address] 16 May, 2019 Nonintractable headache, uns pecified chronicity pattern, unspecified headache type R51 and Sore throat J02.9 [place] [address] [address] 15 Apr, 2019 [place] [address] [address] 14 Apr, 2019 Fever, unspecified fever cause R50.9 and Chest congestion R09.89 [facility] IN [facility] [address] [address] 18 Mar, 2019 Abdominal pain R10.9 [place] [address] [address] 16 Mar, 2019 Chronic venous insufficiency I87.2 [place] [address] [address] Feb, [place] [address] [address] Feb, [place] [address] [address] Feb, [address] [address] Feb, Seasonal allergic rhinitis due to pollen J30.1 ; Cervicalgia M54.2 ; Pain in right leg M79.604 ; Morbid obesity E66.01 and Obstructive sleep apnea syndrome G47.[address] [address] Jan, [facility] [address] [address] Jan, [facility] [address] [address] Jan, [facility] [address] [address] Jan, Food allergy Z91.018 [facility] [address] [address] Jan, Right ear pain H92.01 ; DM neuro manif t ype II E11.49 and Morbid obesity E66.01 [place] [address] [address] Dec, Exercise counseling Z71.82 [place] [address] [address] Dec, [place] [address] [address] Dec, Acute midline low back pain without scia gary M54.5 ; Migraine headache G43.909 ; Obstructive sleep apnea syndrome G47.33 ; Localized edema R60.0 and Morbid obesity E66.01 [facility] WALK IN [facility] [address] [facility] [id number] [address] [address] Dec, Migraine with aura and witho ut status migrainosus, not intractable G43.109 and Morbid obesity E66.01 [facility] [address] [address] November, [facility] [address] [address] November, [facility] [address] [address] November, [facility] [address] [address] November, Pain of left lower leg M79.662 [place] [address] [address] November, Pain of left lower leg M79.662 and Isabel diasis B37.9 [facility] WALK IN [facility] [address] [place] [id number] [place] [address] November, Left leg pain M79.605 [place] [address] [address] November, Pain in right leg M79.604 [place] [address] [address] Oct, Left leg pain M79.605 ; Left leg swellin g M79.89 and Morbid obesity E66.01 [place] [address] [address] Oct, Bronchitis J40 ; HTN (hypertension) I10 and Morbid obesity E66.01 [facility] WALK IN [facility] [address] [place] [id number] [address] [place] [address] Oct, Sore throat J02.9 and Morbid obesity E66.01 [place] [address] [address] Oct, [place] [address] [address] Oct, Allergy, food Z91.018 ; Candidiasis B37. 9 and Morbid obesity E66.01 [place] [address] [address] Sep, [place] [address] [address] Sep, Intractable migraine without aura and wi thout status migrainosus G43.019 ; Allergic reaction to food, subsequent encounter T78.1XXD ; HTN (hypertension) I10 and Morbid obesity E66.01 [place] [address] [address] Jul, [facility] WALK IN [facility] [address] [place] [address] Jul, Rash R21 and BMI 50.0-59.9, adult Z68.43 [place] [address] [address] Jun, Hyperinsulinemia E16.1 and Menorrhagia w ith irregular cycle N92.1 [place] [address] [address] Jun, Primary osteoarthritis of left knee M17. 12 [facility] WALK IN [place] [address] [address] Jun, Sore throat J02.9 ; Acute na sopharyngitis J00 and BMI 50.0-59.9, adult Z68.43 [place] [address] [address] 05 Jun, 2018 Other chronic pain G89.29 ; Pain in left knee M25.562 ; Hyperinsulinemia E16.1 ; Menorrhagia with irregular cycle N92.1 and BMI 50.0- 59.9, adult Z68.43 [facility] [address] [address] Apr, BMI 50.0-59.9, adult Z68.43 ; Dysuria R30.0 and Acute UTI N39.0 [place] [address] [address] Apr, [place] [address] [address] Apr, Encounter for immunization Z23 [address] [address] Mar, Acute midline low back pain without scia gary M54.5 ; Acute pain of left knee M25.562 and BMI 50.0-59.9, adult Z68.43 [place] [address] [address] Mar, Intractable migraine without aura and wi thout status migrainosus G43.019 and BMI 50.0-59.9, adult Z68.43 [place] [address] [address] Mar, Bronchitis J40 ; Allergy to food Z91.018 and BMI 50.0-59.9, adult Z68.43 [facility] WALK IN [facility] [address] [facility] [id number] [address] [address] Mar, Bronchitis J40 ; Wheezing on both sides of chest R06.2 and BMI 50.0-59.9, adult Z68.43 [place] [address] [address] Feb, Pain in right leg M79.604 [place] [address] [address] Jan, Pneumonia of left lung due to infectious organism, unspecified part of lung J18.9 [place] [address] [address] Dec, Pneumonia due to Mycoplasma pneumoniae, unspecified laterality, unspecified part of lung J15.7 and BMI 50.0-59.9, adult Z68.43 [place] [address] [address] Dec, [place] [address] [address] Dec, Bronchitis J40 and BMI 50.0-59.9, adult Z68.43 [place] [address] [address] November, Bronchitis J40 ; LLQ pain R10.32 and BMI 50.0-59.9, adult Z68.43 [place] [address] [address] November, Iron deficiency anemia due to chronic bl ood loss D50.0 [place] [address] [address] November, [place] [address] [address] November, Iron deficiency anemia due to chronic bl ood loss D50.0 ; DM neuro manif type II E11.49 ; Menorrhagia with irregular cycle N92.1 and BMI 50.0-59.9, adult Z68.43 [facility] WALK IN [place] [address] [address] Oct, Sore throat J02.9 and Acute nasopharyngitis J00 [facility] WALK IN [address] [address] Oct, Left leg pain M79.605 and BM I 50.0-59.9, adult Z68.43 [facility] WALK IN [place] [address] [address] Sep, Upper respiratory tract infe ction, unspecified type J06.9 and BMI 50.0-59.9, adult Z68.43 [place] [address] [address] Sep, Menorrhagia with irregular cycle N92.1 ; Sleep apnea in adult G47.30 and BMI 50.0-59.9, adult Z68.43 [place] [address] [address] Sep, [place] [address] [address] Aug, [place] [address] [address] Aug, [place] [address] [address] Aug, [place] [address] [address] Aug, LLQ pain R10.32 ; Irritable bowel syndro me with diarrhea K58.0 ; Change in bowel habits R19.4 ; Essential hypertension I10 and BMI 50.0-59.9, adult Z68.43 [place] [address] [address] Aug, [facility] [address] [address] Aug, [facility] WALK IN [facility] [address] [place] [id number] [address] [place] [address] Aug, Essential hypertension I10 a nd BMI 50.0-59.9, adult Z68.43 [place] [address] [address] Aug, [place] [address] [address] 08 Aug, 2017 [facility] IN [facility] [address] [place] [id number] [address] [place] [address] 02 Aug, 2017 Allergic disorder, initial e ncounter T78.40XA and BMI 50.0-59.9, adult Z68.43 [facility] IN [facility] [address] [place] [id number] [address] [place] [address] Jul, Other atopic dermatitis L20. 89 and BMI 50.0-59.9, adult Z68.43 [place] [address] [address] 16 Jul, 2017 Intractable migraine without aura and wi thout status migrainosus G43.019 and BMI 50.0-59.9, adult Z68.43 [facility] [address] [address] Jun, DM neuro manif type II E11.49 ; Tension headache G44.209 ; Breast cancer screening Z12.31 and BMI 50.0-59.9, adult Z68.43 [place] [address] [address] Jun, Tension headache G44.209 ; Breast cancer screening Z12.31 ; BMI 50.0- 59.9, adult Z68.43 and DM neuro manif type II E11.49 [facility] [address] [facility] [id number] [address] [address] Apr, Dysuria R30.0 and Acute cyst itis with hematuria N30.01 [place] [address] [address] Apr, Hyperinsulinemia E16.1 [place] [address] [address] Mar, Acute non-recurrent maxillary sinusitis J01.00 [place] [address] [address] Feb, Cellulitis of unspecified part of limb L 03.119 ; Spider bite wound, accidental or unintentional, subsequent encounter T63.301D and BMI 50.0-59.9, adult Z68.43 [place] [address] [address] Jan, [place] [address] [address] Jan, Urinary tract infection, site unspecifie d N39.0 [place] [address] [address] Jan, Acute gastritis without hemorrhage, unsp ecified gastritis type K29.00 [place] [address] [address] Dec, Pain in right leg M79.604 [place] [address] [address] Dec, Hyperinsulinemia E16.1 and Pain in right leg M79.604 [place] [address] [address] Dec, Angioedema, initial encounter T78.3XXA [place] [address] [address] 15 Dec, 2016 Dental examination Z01.20 [place] [address] [address] Dec, [place] [address] [address] Dec, Burning with urination R30.0 and Acute c ystitis with hematuria N30.01 [place] [address] [address] Oct, [place] [address] [address] Sep, [place] [address] [address] Aug, Hyperinsulinemia E16.1 [place] [address] [address] Aug, [place] [address] [address] Jul, [place] [address] [address] Jul, Chondromalacia, left knee M94.262 and Ac [place] lateral meniscus tear of left knee, initial encounter S83.282A [place] [address] [address] Jul, [place] [address] [address] Jun, Hyperinsulinemia E16.1 [place] [address] [address] Jun, Dysuria R30.0 ; Back pain M54.9 ; Acute pain of left knee M25.562 and Hyperinsulinemia E16.1 [place] [address] [address] Jun, Acute non-recurrent maxillary sinusitis J01.00 [place] [address] [address] 05 Jun, 2016 Dysuria R30.[address] [place] [address] 05 Jun, 2016 Dysuria R30.0 [facility] [address] [address] Jun, [facility] [address] [address] 30 May, 2016 Dysuria R30.0 and Acute cystitis with he maturia N30.01 [facility] [address] [address] May, Hyperinsulinemia E16.1 [facility] [address] [address] May, [facility] [address] [address] May, Sore throat J02.9 [facility] [address] [address] May, [facility] [address] [address] 08 Mar, 2016 Hyperinsulinemia E16.1 [facility] [address] [address] Jan, Hyperinsulinemia E16.1 [facility] [address] [address] Dec, DM neuro manif type II E11.49 [facility] [address] [address] November, Hyperinsulinemia E16.1 and Hypertension I10 [facility] [address] [address] Oct, [facility] [address] [address] Oct, Hyperinsulinemia E16.1 [facility] [address] [address] 20 Oct, 2015 Pain, unspecified R52 [facility] [address] [address] 14 Oct, 2016 Pain in right foot M79.671 and Hyperinsu linemia E16.1 [facility] [address] [place] [id number] [place] [address] 14 Oct, 2015 Hyperinsulinemia E16.1 [facility] [address] [place] [id number] [place] [address] 12 Oct, 2015 Hyperinsulinemia E16.1 [facility] [address] [place] [id number] [place] [address] 17 Aug, 2015 Hypertension I10 and Viral illness B34.9 [facility] [address] [address] May, Back pain M54.9 [facility] [address] [address] 14 Oct, 2014 [facility] [address] [address] Oct, [facility] [address] [address] Sep, [facility] [address] [place] [id number] [place] [address] Sep, [facility] [address] [address] Sep, [facility] [address] [address] Sep, [facility] [address] [place] [id number] [place] [address] Sep, [facility] [address] [place] [id number] [place] [address] Sep, [facility] [address] [address] Sep, [facility] [address] [place] [id number] [place] [address] Sep, [facility] [address] [address] Sep, [facility] [address] [facility] [id number] [place] [address] Sep, 2014 [facility] [address] [id number] [place] [address] Sep, 2014 [facility] [address] [id number] [place] [address] Sep, 2014 [facility] [address] [id number] [place] [address] Mar, [facility] [address] [facility] [id number] [place] [address] Mar, [facility] [address] [id number] [place] [address] Feb, [facility] [address] [id number] [place] [address] Feb, [facility] [address] [id number] [place] [address] Feb, [facility] [address] [id number] [place] [address] Feb, [facility] [address] [id number] [place] [address] Dec, [facility] [address] [id number] [place] [address] Dec, [facility] [address] [id number] [place] [address] Dec, [facility] [address] [id number] [place] [address] Dec, [facility] [address] [id number] [place] [address] Dec, [facility] [address] [id number] [place] [address] Dec, [facility] [address] [id number] [place] [address] Dec, [facility] [address] [id number] [place] [address] Sep, [facility] [address] [facility] [id number] [place] [address] Sep, [facility] [address] [facility] [id number] [place] [address] Sep, [facility] [address] [id number] [place] [address] Sep, [facility] [address] [id number] [place] [address] Sep, [facility] [address] [facility] [id number] [place] [address] Sep, [facility] [address] [id number] [place] [address] Sep, [facility] [address] [id number] [place] [address] Sep, [facility] [address] [id number] [place] [address] Jul, [facility] [address] [id number] [place] [address] Jul, [facility] [address] [id number] [place] [address] Jun, [facility] [address] [id number] [place] [address] Jun, [facility] [address] [id number] [place] [address] May, [facility] [address] [id number] [place] [address] May, [facility] [address] [id number] [place] [address] May, [facility] [address] [id number] [place] [address] May, [facility] [address] [id number] [place] [address] May, [facility] [address] [id number] [place] [address] May, [facility] [address] [id number] [place] [address] May, [facility] [address] [id number] [place] [address] Apr, [facility] [address] [id number] [place] [address] Apr, [facility] [address] [id number] [place] [address] Apr, [facility] [address] [id number] [place] [address] Apr, [facility] [address] [id number] [place] [address] Apr, [facility] [address] [id number] [place] [address] Apr, [facility] [address] [id number] [place] [address] Mar, [facility] [address] [id number] [place] [address] Feb, [facility] [address] [id number] [place] [address] Jan, [facility] [address] [id number] [place] [address] Jan, [facility] [address] [id number] [place] [address] Jan, [facility] [address] [id number] [place] [address] Dec, [facility] [id number] [place] [address] November, [facility] [address] [id number] [place] [address] November, [facility] [address] [id number] [place] [address] November, [facility] [address] [id number] [place] [address] November[facility] [address] [id number] [place] [address] Oct, [facility] [address] [id number] [place] [address] Aug, [facility] [address] [id number] [place] [address] Aug, [facility] [address] [id number] [place] [address] Aug, [facility] [address] [id number] [place] [address] Aug, [facility] [address] [id number] [place] [address] Aug, [facility] [id number] [place] [address] Aug, [facility] [address] [id number] [place] [address] Jul, [facility] [address] [id number] [place] [address] May, [facility] [address] [id number] [place] [address] May, [facility] [id number] [place] [address] May, [facility] [address] [id number] [place] [address] May, [facility] [address] [id number] [place] [address] May, [facility] [address] [id number] [place] [address] May, [facility] [address] [id number] [place] [address] May, [facility] [address] [id number] [place] [address] Apr, [facility] [address] [id number] [place] [address] Apr, [facility] [address] [id number] [place] [address] Apr, [facility] [address] [id number] [place] [address] Apr, [facility] [address] [id number] [place] [address] Apr, [facility] [address] [id number] [place] [address] Sep, [facility] [address] [id number] [place] [address] Aug, [facility] [address] [id number] [place] [address] 16 Aug, 2011 [facility] [address] [id number] [place] [address] Aug, [facility] [address] [id number] [place] [address] Aug, [facility] [address] [id number] [place] [address] Aug, [facility] [address] [id number] [place] [address] Jul, [facility] [address] [id number] [place] [address] Jul, [facility] [address] [id number] [place] [address] Jul, [facility] [address] [id number] [place] [address] Jun, [facility] [address] [id number] [place] [address] Jun, [facility] [address] [id number] [place] [address] Jun, [facility] [address] [id number] [place] [address] May, [facility] [address] [id number] [place] [address] Apr, [facility] [address] [id number] [place] [address] Apr, [facility] [address] [id number] [place] [address] Apr, [facility] [address] [id number] [place] [address] Apr, IMMUNIZATIONS No Known Immunizations SOCIAL HISTORY Never Assessed REASON FOR VISIT PLAN OF CARE VITAL SIGNS Height 69 in 2013-10-09 Weight 338.7 lbs 2013-10-09 Temperature 98.2 degrees Fahrenheit 2013-10-09 Heart Rate 96 bpm 2013-10-09 Respiratory Rate 20 2013-10-09 Blood pressure systolic 142 mmHg 2013-10-09 Blood pressure diastolic 90 mmHg 2013-10-09 MEDICATIONS No Known Medications RESULTS No Results PROCEDURES No Known procedures INSTRUCTIONS MEDICATIONS ADMINISTERED No Known Medications MEDICAL (GENERAL) HISTORY Type Description Date Medical History hypertension Medical History Sleep apnea in adult Surgical History x 3 Surgical History cholecystectomy Surgical History Chemical Stress Test, EKG, Echo 05/2016 Hospitalization History surgeries Hospitalization History UTI VC 05/2016
--- OUTSIDE RECORDS SUMMARY | 2019-09-25 06:32 | XMS REPORT ---
Author Author Jada MORRISSEY [facility] Address [address] [place] [address] Care Team Providers Care Mortar Worker Name Role Phone BALBIR MORRISSEY Unavailable PROBLEMS Type Condition ICD9-CM Code XJV32-AP Code Onset Dates Condition S tatus SNOMED Code Problem Tension headache G44.209 Active 398 279282 Problem DM neuro manif type II E11.49 Active 18792081 Problem Irritable bowel syndrome with diarrhea K58.0 Active 808504614 Problem Intractable migraine without aura and without st atus migrainosus G43.019 Active 529807669 Problem Menorrhagia with irregular cycle N92.1 Active 774976510 Problem Sleep apnea in adult G47.30 Active 87579403 Problem Other chronic pain G89.29 Active 8 8882757 Problem Iron deficiency anemia due to chronic blood loss D 50.0 Active 916955898 Problem Migraine with aura and without status migrainosu s, not intractable G43.109 Active 1299298 Problem Obstructive sleep apnea syndrome G47.33 Active 09280705 Problem Seasonal allergic rhinitis due to pollen J30.1 Active 31250182 Problem Localized osteoarthritis of left knee M17.12 Active 003381764 Problem HTN (hypertension) I10 Active 3 9047232 Problem Chronic tension-type headache, not intractable G44 .229 Active 754639686 Problem Primary osteoarthritis of left knee M17.12 Active 808448718705222 Problem Hyperinsulinemia E16.1 Active 834 03880 Problem Food allergy Z91.018 Active 7790459 01 Problem Chronic venous insufficiency I87.2 A ctive 79582012 Problem Multiple allergies Z88.9 Active 6 41614467 Problem Migraine headache G43.909 Active 37 187204 ALLERGIES No Information ENCOUNTERS Encounter Location Date Diagnosis [facility] [address] [id number] [place] [address] Jul, Segmental dysfunction of thoracic region M99.02 ; Segmental dysfunction of lumbar region M99.03 ; Segmental dysfunction of cervical region M99.01 and Chronic tension-type headache, not intractable G44.229 [place] [address] [address] Jul, [place] [address] [address] Jun, Localized osteoarthritis of left knee M1 7.12 [facility] [address] [place] [id number] [place] [address] Jun, Acute non-recurrent sinusiti s, unspecified location J01.90 [place] [address] [address] Jun, [place] [address] [address] Jun, Viral upper respiratory tract infection J06.9 [place] [address] [address] Jun, [place] [address] [address] May, Prediabetes R73.03 and Iron deficiency a nemia due to chronic blood loss D50.0 [place] [address] [address] May, [place] [address] [address] May, Prediabetes R73.03 ; Left anterior knee pain M25.562 ; Encounter for immunization Z23 ; Migraine headache G43.909 ; Multiple allergies Z88.9 ; Snoring R06.83 and Iron deficiency anemia due to chronic blood loss D50.0 [facility] IN [facility] [address] [place] [id number] [address] [place] [address] 16 May, 2019 Nonintractable headache, uns pecified chronicity pattern, unspecified headache type R51 and Sore throat J02.9 [place] [address] [address] Apr, [facility] [address] [address] 14 Apr, 2019 Fever, unspecified fever cause R50.9 and Chest congestion R09.89 [facility] [address] [facility] [id number] [place] [address] 18 Mar, 2019 Abdominal pain R10.9 [facility] [address] [address] 16 Mar, 2019 Chronic venous insufficiency I87.2 [place] [address] [address] Feb, [place] [address] [address] Feb, [place] [address] [address] Feb, [place] [address] [address] Feb, Seasonal allergic rhinitis due to pollen J30.1 ; Cervicalgia M54.2 ; Pain in right leg M79.604 ; Morbid obesity E66.01 and Obstructive sleep apnea syndrome G47.33 [place] [address] [address] Jan, [place] [address] [address] Jan, [place] [address] [address] Jan, [place] [address] [address] Jan, Food allergy Z91.018 [place] [address] [address] Jan, Right ear pain H92.01 ; DM neuro manif t ype II E11.49 and Morbid obesity E66.01 [place] [address] [address] Dec, Exercise counseling Z71.82 [place] [address] [address] Dec, [place] [address] [address] Dec, Acute midline low back pain without scia gary M54.5 ; Migraine headache G43.909 ; Obstructive sleep apnea syndrome G47.33 ; Localized edema R60.0 and Morbid obesity E66.01 [facility] [place] [address] [place] [id number] [place] [address] Dec, Migraine with aura and witho ut status migrainosus, not intractable G43.109 and Morbid obesity E66.01 [place] [address] [address] November, [place] [address] [address] November, [place] [address] [address] November, [place] [address] [address] November, Pain of left lower leg M79.662 [place] [address] [address] November, Pain of left lower leg M79.662 and Isabel diasis B37.9 [facility] [place] [address] [place] [id number] [place] [address] November, Left leg pain M79.605 [place] [address] [address] November, Pain in right leg M79.604 [place] [address] [address] Oct, Left leg pain M79.605 ; Left leg swellin g M79.89 and Morbid obesity E66.01 [place] [address] [address] 17 Oct, 2018 Bronchitis J40 ; HTN (hypertension) I10 and Morbid obesity E66.01 [facility] [address] [place] [id number] [place] [address] 16 Oct, 2018 Sore throat J02.9 and Morbid obesity E66.01 [place] [address] [address] Oct, [place] [address] [address] Oct, Allergy, food Z91.018 ; Candidiasis B37. 9 and Morbid obesity E66.01 [place] [address] [address] Sep, [place] [address] [address] Sep, Intractable migraine without aura and wi thout status migrainosus G43.019 ; Allergic reaction to food, subsequent encounter T78.1XXD ; HTN (hypertension) I10 and Morbid obesity E66.01 [place] [address] [address] Jul, [facility] [address] [place] [id number] [place] [address] Jul, Rash R21 and BMI 50.0-59.9, adult Z68.43 [place] [address] [address] 28 Jun, 2018 Hyperinsulinemia E16.1 and Menorrhagia w ith irregular cycle N92.1 [place] [address] [address] Jun, Primary osteoarthritis of left knee M17. 12 [facility] [address] [place] [id number] [place] [address] Jun, Sore throat J02.9 ; Acute na sopharyngitis J00 and BMI 50.0-59.9, adult Z68.43 [place] [address] [address] Jun, Other chronic pain G89.29 ; Pain in left knee M25.562 ; Hyperinsulinemia E16.1 ; Menorrhagia with irregular cycle N92.1 and BMI 50.0- 59.9, adult Z68.43 [facility] [address] [address] Apr, BMI 50.0-59.9, adult Z68.43 ; Dysuria R30.0 and Acute UTI N39.[address] [address] Apr, [address] [address] Apr, Encounter for immunization Z23 [address] [address] Mar, Acute midline low back pain without scia gary M54.5 ; Acute pain of left knee M25.562 and BMI 50.0-59.9, adult Z68.43 [place] [address] [address] Mar, Intractable migraine without aura and wi thout status migrainosus G43.019 and BMI 50.0-59.9, adult Z68.43 [place] [address] [address] Mar, Bronchitis J40 ; Allergy to food Z91.018 and BMI 50.0-59.9, adult Z68.43 [facility] [place] [id number] [place] [address] Mar, Bronchitis J40 ; Wheezing on both sides of chest R06.2 and BMI 50.0-59.9, adult Z68.43 [place] [address] [address] Feb, Pain in right leg M79.[address] [address] Jan, Pneumonia of left lung due to infectious organism, unspecified part of lung J18.9 [place] [address] [address] Dec, Pneumonia due to Mycoplasma pneumoniae, unspecified laterality, unspecified part of lung J15.7 and BMI 50.0-59.9, adult Z68.43 [place] [address] [address] Dec, [address] [address] Dec, Bronchitis J40 and BMI 50.0-59.9, adult Z68.43 [place] [address] [address] November, Bronchitis J40 ; LLQ pain R10.32 and BMI 50.0-59.9, adult Z68.43 [place] [address] [address] November, Iron deficiency anemia due to chronic bl ood loss D50.[address] [address] November, [address] [address] November, Iron deficiency anemia due to chronic bl ood loss D50.0 ; DM neuro manif type II E11.49 ; Menorrhagia with irregular cycle N92.1 and BMI 50.0-59.9, adult Z68.43 [facility] [address] [place] [address] Oct, Sore throat J02.9 and Acute nasopharyngitis J00 [facility] [address] [address] Oct, Left leg pain M79.605 and BM I 50.0-59.9, adult Z68.43 [facility] IN [place] [id number] [address] 17 Sep, 2017 Upper respiratory tract infe ction, unspecified type J06.9 and BMI 50.0-59.9, adult Z68.43 [facility] [address] [address] Sep, Menorrhagia with irregular cycle N92.1 ; Sleep apnea in adult G47.30 and BMI 50.0-59.9, adult Z68.43 [place] [address] [address] Sep, [place] [address] [address] Aug, [place] [address] [address] Aug, [place] [address] [address] Aug, [place] [address] [address] Aug, LLQ pain R10.32 ; Irritable bowel syndro me with diarrhea K58.0 ; Change in bowel habits R19.4 ; Essential hypertension I10 and BMI 50.0-59.9, adult Z68.43 [place] [address] [address] Aug, [place] [address] [address] Aug, [facility] [address] [facility] [id number] [place] [address] Aug, Essential hypertension I10 a nd BMI 50.0-59.9, adult Z68.43 [facility] [address] [address] Aug, [place] [address] [address] Aug, [facility] IN [facility] [address] [facility] [id number] [address] [place] [address] Aug, Allergic disorder, initial e ncounter T78.40XA and BMI 50.0-59.9, adult Z68.43 [facility] [address] [place] [id number] [place] [address] Jul, Other atopic dermatitis L20. 89 and BMI 50.0-59.9, adult Z68.43 [place] [address] [address] Jul, Intractable migraine without aura and wi thout status migrainosus G43.019 and BMI 50.0-59.9, adult Z68.43 [place] [address] [address] Jun, DM neuro manif type II E11.49 ; Tension headache G44.209 ; Breast cancer screening Z12.31 and BMI 50.0-59.9, adult Z68.43 [place] [address] [address] Jun, Tension headache G44.209 ; Breast cancer screening Z12.31 ; BMI 50.0- 59.9, adult Z68.43 and DM neuro manif type II E11.49 [facility] [address] [place] [id number] [place] [address] Apr, Dysuria R30.0 and Acute cyst itis with hematuria N30.[address] [address] Apr, Hyperinsulinemia E16.[address] [address] Mar, Acute non-recurrent maxillary sinusitis J01.[address] [address] Feb, Cellulitis of unspecified part of limb L 03.119 ; Spider bite wound, accidental or unintentional, subsequent encounter T63.301D and BMI 50.0-59.9, adult Z68.43 [place] [address] [address] Jan, [place] [address] [address] Jan, Urinary tract infection, site unspecifie d N39.0 [place] [address] [address] Jan, Acute gastritis without hemorrhage, unsp ecified gastritis type K29.00 [place] [address] [address] Dec, Pain in right leg M79.604 [place] [address] [address] Dec, Hyperinsulinemia E16.1 and Pain in right leg M79.604 [place] [address] [address] Dec, Angioedema, initial encounter T78.3XXA [place] [address] [address] 15 Dec, 2016 Dental examination Z01.20 [place] [address] [address] 13 Dec, 2016 [place] [address] [address] Dec, Burning with urination R30.0 and Acute c ystitis with hematuria N30.01 [place] [address] [address] 05 Oct, 2016 [place] [address] [address] Sep, [place] [address] [address] Aug, Hyperinsulinemia E16.1 [place] [address] [address] Aug, [place] [address] [address] Jul, [facility] [address] [place] [id number] Jul, Chondromalacia, left knee M94.262 and Ac [place] lateral meniscus tear of left knee, initial encounter S83.282A [facility] [address] [address] Jul, [facility] [address] [address] Jun, Hyperinsulinemia E16.1 [place] [address] [address] Jun, Dysuria R30.0 ; Back pain M54.9 ; Acute pain of left knee M25.562 and Hyperinsulinemia E16.1 [place] [address] [address] Jun, Acute non-recurrent maxillary sinusitis J01.00 [place] [address] [address] Jun, Dysuria R30.0 [place] [address] [address] Jun, Dysuria R30.0 [place] [address] [address] Jun, [place] [address] [address] May, Dysuria R30.0 and Acute cystitis with he maturia N30.01 [facility] [address] [address] May, Hyperinsulinemia E16.1 [facility] [address] [address] May, [facility] [address] [address] May, Sore throat J02.9 [place] [address] [address] May, [facility] [address] [address] 08 Mar, 2016 Hyperinsulinemia E16.1 [facility] [address] [address] Jan, Hyperinsulinemia E16.1 [facility] [address] [address] Dec, DM neuro manif type II E11.49 [facility] [address] [address] November, Hyperinsulinemia E16.1 and Hypertension I10 [facility] [address] [address] Oct, [facility] [address] [address] Oct, Hyperinsulinemia E16.1 [facility] [address] [address] Oct, Pain, unspecified R52 [facility] [address] [address] 14 Oct, 2015 Pain in right foot M79.671 and Hyperinsu linemia E16.1 [facility] [address] [address] 14 Oct, 2015 Hyperinsulinemia E16.1 [facility] [address] [address] Oct, Hyperinsulinemia E16.1 [facility] [address] [address] 17 Aug, 2015 Hypertension I10 and Viral illness B34.9 [facility] [address] [address] 18 May, 2015 Back pain M54.9 [facility] [address] [address] 14 Oct, 2014 [facility] [address] [id number] [place] [address] 13 Oct, 2014 [facility] [address] [facility] [id number] [place] [address] 30 Sep, 2014 [facility] [address] [facility] [id number] [place] [address] Sep, 2014 [facility] [address] [id number] [place] [address] Sep, 2014 [facility] [address] [facility] [id number] [place] [address] Sep, 2014 [facility] [address] [id number] [place] [address] Sep, 2014 [facility] [address] [id number] [place] [address] Sep, 2014 [facility] [address] [id number] [place] [address] Sep, 2014 [facility] [address] [id number] [place] [address] Sep, 2014 [facility] [address] [id number] [place] [address] Sep, 2014 [facility] [address] [id number] [place] [address] Sep, 2014 [facility] [address] [id number] [place] [address] Sep, 2014 [facility] [address] [id number] [place] [address] Sep, 2014 [facility] [address] [facility] [id number] [place] [address] Mar, [facility] [address] [id number] [place] [address] Mar, [facility] [address] [id number] [place] [address] Feb, [facility] [address] [id number] [place] [address] Feb, [facility] [address] [facility] [id number] [place] [address] Feb, [facility] [address] [facility] [id number] [place] [address] Feb, [facility] [address] [facility] [id number] [place] [address] Dec, [facility] [address] [id number] [place] [address] Dec, [facility] [address] [facility] [id number] [place] [address] Dec, [facility] [address] [id number] [place] [address] Dec, [facility] [address] [id number] [place] [address] Dec, [facility] [address] [id number] [place] [address] Dec, [facility] [address] [id number] [place] [address] Dec, [facility] [address] [id number] [place] [address] Sep, [facility] [address] [id number] [place] [address] Sep, [facility] [address] [id number] [place] [address] Sep, [facility] [address] [id number] [place] [address] Sep, [facility] [address] [id number] [place] [address] Sep, [facility] [address] [id number] [place] [address] Sep, [facility] [address] [id number] [place] [address] Sep, [facility] [address] [id number] [place] [address] Sep, [facility] [address] [id number] [place] [address] Jul, [facility] [address] [id number] [place] [address] Jul, [facility] [address] [id number] [place] [address] Jun, [facility] [address] [id number] [place] [address] Jun, [facility] [address] [id number] [place] [address] May, [facility] [address] [id number] [place] [address] May, [facility] [address] [id number] [place] [address] May, [facility] [address] [id number] [place] [address] May, [facility] [address] [id number] [place] [address] May, [facility] [address] [place] [id number] [place] [address] May, [facility] [address] [id number] [place] [address] May, [facility] [address] [id number] [place] [address] Apr, [facility] [address] [id number] [place] [address] Apr, [facility] [address] [id number] [place] [address] Apr, [facility] [address] [id number] [place] [address] Apr, [facility] [address] [place] [id number] [place] [address] Apr, [facility] [address] [id number] [place] [address] Apr, [facility] [address] [facility] [id number] [place] [address] Mar, [facility] [address] [id number] [place] [address] Feb, [facility] [address] [id number] [place] [address] Jan, [facility] [address] [id number] [place] [address] Jan, [facility] [address] [id number] [place] [address] Jan, [facility] [address] [id number] [place] [address] Dec, [facility] [address] [id number] [place] [address] November, [facility] [address] [id number] [place] [address] November, [facility] [address] [id number] [place] [address] November, [facility] [address] [id number] [place] [address] November, [facility] [address] [id number] [place] [address] Oct, [facility] [address] [id number] [place] [address] Aug, [facility] [address] [id number] [place] [address] Aug, [facility] [address] [facility] [id number] [place] [address] Aug, [facility] [address] [id number] [place] [address] Aug, [facility] [address] [id number] [place] [address] Aug, [facility] [address] [id number] [place] [address] Aug, [facility] [address] [facility] [id number] [place] [address] Jul, [facility] [address] [id number] [place] [address] May, [facility] [address] [id number] [place] [address] May, [facility] [address] [id number] [place] [address] May, [facility] [address] [id number] [place] [address] May, [facility] [address] [id number] [place] [address] May, [facility] [address] [id number] [place] [address] May, [facility] [address] [id number] [place] [address] May, [facility] [address] [id number] [place] [address] Apr, [facility] [address] [id number] [place] [address] Apr, [facility] [address] [id number] [place] [address] Apr, [facility] [address] [id number] [place] [address] Apr, [facility] [address] [id number] [place] [address] Apr, [facility] [address] [id number] [place] [address] Sep[facility] [facility] [address] [id number] [place] [address] Aug, [facility] [address] [id number] [place] [address] Aug, [facility] [id number] [place] [address] Aug, [facility] [id number] [place] [address] Aug, [facility] [id number] [place] [address] Aug, [facility] [id number] [place] [address] Jul, [facility] [id number] [place] [address] Jul, [facility] [id number] [place] [address] Jul, [facility] [id number] [place] [address] Jun, [facility] [id number] [place] [address] Jun, [facility] [id number] [place] [address] Jun, [facility] [id number] [place] [address] May, [facility] [id number] [place] [address] Apr, [facility] [id number] [place] [address] Apr, [facility] [id number] [place] [address] Apr, [facility] [id number] [place] [address] Apr, IMMUNIZATIONS No Known Immunizations SOCIAL HISTORY Never Assessed REASON FOR VISIT PLAN OF CARE VITAL SIGNS Height 69 in 2013-12-27 Weight 331.9 lbs 2013-12-27 Temperature 96.8 degrees Fahrenheit 2013-12-27 Heart Rate 82 bpm 2013-12-27 Respiratory Rate 18 2013-12-27 Blood pressure systolic 128 mmHg 2013-12-27 Blood pressure diastolic 78 mmHg 2013-12-27 MEDICATIONS Unknown Medications RESULTS No Results PROCEDURES Procedure Date Ordered Result Body Site STREP A ASSAY W/OPTIC December 27, 2013 INSTRUCTIONS MEDICATIONS ADMINISTERED No Known Medications MEDICAL (GENERAL) HISTORY Type Description Date Medical History hypertension Medical History Sleep apnea in adult Surgical History x 3 Surgical History cholecystectomy Surgical History Chemical Stress Test, EKG, Echo 05/2016 Hospitalization History surgeries Hospitalization History UTI VC 05/2016
--- OUTSIDE RECORDS SUMMARY | 2019-09-25 06:32 | XMS REPORT ---
Author Author Jada Fuentes Organization [facility] Address [address] [place] [address] Care Team Providers Care Conductor Sleeping Car Name Role Phone RUTH Fuentes Unavailable PROBLEMS Type Condition ICD9-CM Code MLG15-MS Code Onset Dates Condition S tatus SNOMED Code Problem DM neuro manif type II E11.49 Active 38281805 Problem Hyperinsulinemia E16.1 Active 834 16537 Problem Intractable migraine without aura and without st atus migrainosus G43.019 Active 675903481 Problem Tension headache G44.209 Active 398 697701 Problem Sleep apnea in adult G47.30 Active 98301232 Problem Irritable bowel syndrome with diarrhea K58.0 Active 405666887 Problem Iron deficiency anemia due to chronic blood loss D 50.0 Active 155849240 Problem Menorrhagia with irregular cycle N92.1 Active 522080040 Problem HTN (hypertension) I10 Active 3 4641117 Problem Migraine with aura and without status migrainosu s, not intractable G43.109 Active 7222786 Problem Obstructive sleep apnea syndrome G47.33 Active 16600711 Problem Migraine headache G43.909 Active 37 859562 Problem Primary osteoarthritis of left knee M17.12 Active 610899118103015 Problem Localized osteoarthritis of left knee M17.12 Active 587983190 Problem Other chronic pain G89.29 Active 8 5646876 Problem Seasonal allergic rhinitis due to pollen J30.1 Active 79448710 Problem Food allergy Z91.018 Active 7157909 01 Problem Chronic venous insufficiency I87.2 A ctive 37968422 Problem Multiple allergies Z88.9 Active 6 40089440 ALLERGIES No Information ENCOUNTERS Encounter Location Date Diagnosis [facility] [address] [id number] [place] [address] Jul, [facility] [address] [id number] [place] [address] Jul, [place] [address] [address] Jun, Localized osteoarthritis of left knee M1 7.12 [facility] [place] [address] [address] [place] [id number] [place] [address] 17 Jun, 2019 Acute non-recurrent sinusiti s, unspecified location J01.90 [place] [address] [address] Jun, [place] [address] [address] Jun, Viral upper respiratory tract infection J06.9 [place] [address] [address] Jun, [place] [address] [address] May, Prediabetes R73.03 and Iron deficiency a nemia due to chronic blood loss D50.0 [place] [address] [address] May, [place] [address] [address] May, Prediabetes R73.03 ; Left anterior knee pain M25.562 ; Encounter for immunization Z23 ; Migraine headache G43.909 ; Multiple allergies Z88.9 ; Snoring R06.83 and Iron deficiency anemia due to chronic blood loss D50.0 [facility] [place] [address] [address] [place] [id number] [place] [address] 16 May, 2019 Nonintractable headache, uns pecified chronicity pattern, unspecified headache type R51 and Sore throat J02.9 [place] [address] [address] 15 Apr, [address] [address] 14 Apr, 2019 Fever, unspecified fever cause R50.9 and Chest congestion R09.89 [facility] [address] [facility] [id number] [address] [place] [address] Mar, Abdominal pain R10.9 [place] [address] [address] Mar, Chronic venous insufficiency I87.2 [place] [address] [address] Feb, [facility] [address] [address] Feb, [facility] [address] [address] Feb, [place] [address] [address] Feb, Seasonal allergic rhinitis due to pollen J30.1 ; Cervicalgia M54.2 ; Pain in right leg M79.604 ; Morbid obesity E66.01 and Obstructive sleep apnea syndrome G47.33 [place] [address] [address] Jan, [place] [address] [address] Jan, [place] [address] [address] Jan, [place] [address] [address] Jan, Food allergy Z91.018 [place] [address] [address] Jan, Right ear pain H92.01 ; DM neuro manif t ype II E11.49 and Morbid obesity E66.01 [place] [address] [address] Dec, Exercise counseling Z71.82 [place] [address] [address] Dec, [place] [address] [address] Dec, Acute midline low back pain without scia gary M54.5 ; Migraine headache G43.909 ; Obstructive sleep apnea syndrome G47.33 ; Localized edema R60.0 and Morbid obesity E66.01 [facility] IN [place] [address] [address] [place] [id number] [place] [address] Dec, Migraine with aura and witho ut status migrainosus, not intractable G43.109 and Morbid obesity E66.01 [place] [address] [address] November, [place] [address] [address] November, [place] [address] [address] November, [place] [address] [address] November, Pain of left lower leg M79.662 [place] [address] [address] November, Pain of left lower leg M79.662 and Isabel diasis B37.9 [facility] [place] [address] [address] [place] [id number] [address] [place] [address] November, Left leg pain M79.605 [place] [address] [address] November, Pain in right leg M79.604 [place] [address] [address] Oct, Left leg pain M79.605 ; Left leg swellin g M79.89 and Morbid obesity E66.01 [place] [address] [address] Oct, Bronchitis J40 ; HTN (hypertension) I10 and Morbid obesity E66.01 [facility] [place] [address] [address] [place] [id number] [address] [place] [address] 16 Oct, 2018 Sore throat J02.9 and Morbid obesity E66.01 [place] [address] [address] Oct, [place] [address] [address] Oct, Allergy, food Z91.018 ; Candidiasis B37. 9 and Morbid obesity E66.01 [place] [address] [address] Sep, [place] [address] [address] Sep, Intractable migraine without aura and wi thout status migrainosus G43.019 ; Allergic reaction to food, subsequent encounter T78.1XXD ; HTN (hypertension) I10 and Morbid obesity E66.01 [place] [address] [address] Jul, [facility] [place] [address] [address] [place] [address] Jul, Rash R21 and BMI 50.0-59.9, adult Z68.43 [place] [address] [address] 28 Jun, 2018 Hyperinsulinemia E16.1 and Menorrhagia w ith irregular cycle N92.1 [place] [address] [address] Jun, Primary osteoarthritis of left knee M17. 12 [facility] [place] [address] [address] [place] [id number] [place] [address] 12 Jun, 2018 Sore throat J02.9 ; Acute na sopharyngitis J00 and BMI 50.0-59.9, adult Z68.43 [place] [address] [address] 05 Jun, 2018 Other chronic pain G89.29 ; Pain in left knee M25.562 ; Hyperinsulinemia E16.1 ; Menorrhagia with irregular cycle N92.1 and BMI 50.0- 59.9, adult Z68.43 [facility] IN [facility] [address] [facility] [id number] [address] [place] [address] Apr, BMI 50.0-59.9, adult Z68.43 ; Dysuria R30.0 and Acute UTI N39.0 [place] [address] [address] Apr, [place] [address] [address] Apr, Encounter for immunization Z23 [place] [address] [address] Mar, Acute midline low back pain without scia gary M54.5 ; Acute pain of left knee M25.562 and BMI 50.0-59.9, adult Z68.43 [place] [address] [address] Mar, Intractable migraine without aura and wi thout status migrainosus G43.019 and BMI 50.0-59.9, adult Z68.43 [place] [address] [address] Mar, Bronchitis J40 ; Allergy to food Z91.018 and BMI 50.0-59.9, adult Z68.43 [facility] [address] [facility] [id number] [address] [place] [address] Mar, Bronchitis J40 ; Wheezing on both sides of chest R06.2 and BMI 50.0-59.9, adult Z68.43 [place] [address] [address] Feb, Pain in right leg M79.604 [place] [address] [address] Jan, Pneumonia of left lung due to infectious organism, unspecified part of lung J18.9 [place] [address] [address] Dec, Pneumonia due to Mycoplasma pneumoniae, unspecified laterality, unspecified part of lung J15.7 and BMI 50.0-59.9, adult Z68.43 [place] [address] [address] Dec, [place] [address] [address] Dec, Bronchitis J40 and BMI 50.0-59.9, adult Z68.43 [place] [address] [address] November, Bronchitis J40 ; LLQ pain R10.32 and BMI 50.0-59.9, adult Z68.43 [place] [address] [address] November, Iron deficiency anemia due to chronic bl ood loss D50.[address] [address] November, [address] [address] November, Iron deficiency anemia due to chronic bl ood loss D50.0 ; DM neuro manif type II E11.49 ; Menorrhagia with irregular cycle N92.1 and BMI 50.0-59.9, adult Z68.43 [facility] IN [address] [address] Oct, Sore throat J02.9 and Acute nasopharyngitis J00 [facility] W[facility] IN [address] [address] Oct, Left leg pain M79.605 and BM I 50.0-59.9, adult Z68.43 [facility] W[facility] IN [address] [address] Sep, Upper respiratory tract infe ction, unspecified type J06.9 and BMI 50.0-59.9, adult Z68.43 [place] [address] [address] Sep, Menorrhagia with irregular cycle N92.1 ; Sleep apnea in adult G47.30 and BMI 50.0-59.9, adult Z68.43 [place] [address] [address] Sep, [place] [address] [address] Aug, [place] [address] [address] Aug, [place] [address] [address] Aug, [place] [address] [address] Aug, LLQ pain R10.32 ; Irritable bowel syndro me with diarrhea K58.0 ; Change in bowel habits R19.4 ; Essential hypertension I10 and BMI 50.0-59.9, adult Z68.43 [place] [address] [address] Aug, [place] [address] [address] Aug, [facility] [address] [place] [id number] [address] [place] [address] Aug, Essential hypertension I10 a nd BMI 50.0-59.9, adult Z68.43 [place] [address] [address] Aug, [place] [address] [address] Aug, [facility] [address] [place] [id number] [place] [address] Aug, Allergic disorder, initial e ncounter T78.40XA and BMI 50.0-59.9, adult Z68.43 [facility] [address] [facility] [id number] [place] [address] Jul, Other atopic dermatitis L20. 89 and BMI 50.0-59.9, adult Z68.43 [facility] [address] [address] Jul, Intractable migraine without aura and wi thout status migrainosus G43.019 and BMI 50.0-59.9, adult Z68.43 [place] [address] [address] Jun, DM neuro manif type II E11.49 ; Tension headache G44.209 ; Breast cancer screening Z12.31 and BMI 50.0-59.9, adult Z68.43 [place] [address] [address] Jun, Tension headache G44.209 ; Breast cancer screening Z12.31 ; BMI 50.0- 59.9, adult Z68.43 and DM neuro manif type II E11.49 [facility] [address] [facility] [id number] [place] [address] Apr, Dysuria R30.0 and Acute cyst itis with hematuria N30.01 [place] [address] [address] Apr, Hyperinsulinemia E16.1 [place] [address] [address] Mar, Acute non-recurrent maxillary sinusitis J01.00 [place] [address] [address] Feb, Cellulitis of unspecified part of limb L 03.119 ; Spider bite wound, accidental or unintentional, subsequent encounter T63.301D and BMI 50.0-59.9, adult Z68.43 [place] [address] [address] Jan, [place] [address] [address] Jan, Urinary tract infection, site unspecifie d N39.0 [place] [address] [address] Jan, Acute gastritis without hemorrhage, unsp ecified gastritis type K29.00 [place] [address] [address] Dec, Pain in right leg M79.604 [place] [address] [address] Dec, Hyperinsulinemia E16.1 and Pain in right leg M79.604 [place] [address] [address] Dec, Angioedema, initial encounter T78.3XXA [place] [address] [address] 15 Dec, 2016 Dental examination Z01.20 [place] [address] [address] Dec, [place] [address] [address] Dec, Burning with urination R30.0 and Acute c ystitis with hematuria N30.01 [place] [address] [address] Oct, [place] [address] [address] Sep, [place] [address] [address] Aug, Hyperinsulinemia E16.1 [place] [address] [address] Aug, [place] [address] [address] Jul, [place] [address] [address] 26 Dustin, 2017 Chondromalacia, left knee M94.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 and Ac cassie lateral meniscus tear of left knee, initial encounter S83.282A [place] [address] [place] [id number] Jul, [facility] [address] [place] [id number] Jun, Hyperinsulinemia E16.1 [facility] [address] [address] Jun, Dysuria R30.0 ; Back pain M54.9 ; Acute pain of left knee M25.562 and Hyperinsulinemia E16.1 [place] [address] [place] [id number] Jun, Acute non-recurrent maxillary sinusitis J01.00 [place] [address] [address] Jun, Dysuria R30.0 [place] [address] [address] Jun, Dysuria R30.0 [facility] [address] [address] Jun, [place] [address] [address] May, Dysuria R30.0 and Acute cystitis with he maturia N30.01 [facility] [address] [address] May, Hyperinsulinemia E16.1 [facility] [address] [address] May, [place] [address] [address] May, Sore throat J02.9 [facility] [address] [address] May, [facility] [address] [address] 08 Mar, 2016 Hyperinsulinemia E16.1 [facility] [address] [address] 28 Jan, 2016 Hyperinsulinemia E16.1 [facility] [address] [address] Dec, DM neuro manif type II E11.49 [facility] [address] [address] November, Hyperinsulinemia E16.1 and Hypertension I10 [facility] [address] [address] Oct, [facility] [address] [address] Oct, Hyperinsulinemia E16.1 [facility] [address] [address] 20 Oct, 2015 Pain, unspecified R52 [facility] [address] [address] 14 Oct, 2015 Pain in right foot M79.671 and Hyperinsu linemia E16.1 [facility] [address] [address] 14 Oct, 2015 Hyperinsulinemia E16.1 [facility] [address] [address] Oct, Hyperinsulinemia E16.1 [facility] [address] [address] 17 Aug, 2015 Hypertension I10 and Viral illness B34.9 [facility] [address] [address] May, Back pain M54.9 [facility] [address] [address] 14 Oct, 2014 [facility] [address] [address] Oct, [facility] [address] [address] 30 Sep, 2014 [facility] [place] [facility] [address] [facility] [id number] [place] [address] Sep, 2014 [facility] [place] [facility] [address] [facility] [place] [address] Sep, 2014 [facility] [place] [facility] [address] [facility] [place] [address] Sep, 2014 [facility] [place] [facility] [address] [id number] [place] [address] Sep, 2014 [facility] [place] [facility] [address] [facility] [place] [address] Sep, 2014 [facility] [place] [facility] [address] [id number] [place] [address] Sep, 2014 [facility] [place] [facility] [address] [id number] [place] [address] Sep, 2014 [facility] [place] [facility] [address] [facility] [place] [address] Sep, 2014 [facility] [place] [facility] [address] [id number] [place] [address] Sep, 2014 [facility] [place] [facility] [address] [id number] [place] [address] Sep, 2014 [facility] [place] [facility] [address] [id number] [place] [address] Sep, 2014 [facility] [place] [facility] [address] [id number] [place] [address] Mar, 2013 [facility] [place] [facility] [address] [id number] [place] [address] Mar, 2013 [facility] [place] [facility] [address] [id number] [place] [address] Feb, [facility] [place] [facility] [address] [id number] [place] [address] Feb, [facility] [place] [facility] [address] [id number] [place] [address] Feb, [facility] [place] [facility] [address] [id number] [place] [address] Feb, [facility] [place] [facility] [address] [facility] [id number] [place] [address] Dec, [facility] [place] [facility] [address] [facility] [id number] [place] [address] Dec, [facility] [place] [facility] [address] [facility] [id number] [place] [address] Dec, [facility] [place] [facility] [address] [facility] [id number] [place] [address] Dec, [facility] [place] [facility] [address] [facility] [id number] [place] [address] Dec, [facility] [place] [facility] [address] [id number] [place] [address] Dec, [facility] [place] [facility] [address] [id number] [place] [address] Dec, [facility] [place] [facility] [address] [id number] [place] [address] Sep, [facility] [place] [facility] [address] [facility] [id number] [place] [address] Sep, [facility] [place] [facility] [address] [id number] [place] [address] Sep, [facility] [place] [facility] [address] [id number] [place] [address] Sep, [facility] [place] [facility] [address] [id number] [place] [address] Sep, [facility] [place] [facility] [address] [facility] [id number] [place] [address] Sep, [facility] [place] [facility] [address] [id number] [place] [address] Sep, [facility] [place] [facility] [address] [facility] [id number] [place] [address] Sep, [facility] [place] [facility] [address] [id number] [place] [address] Jul, [facility] [place] [facility] [address] [id number] [place] [address] Jul, [facility] [place] [facility] [address] [id number] [place] [address] Jun, [facility] [place] [facility] [address] [id number] [place] [address] Jun, [facility] [place] [facility] [address] [id number] [place] [address] May, [facility] [place] [facility] [address] [id number] [place] [address] May, [facility] [place] [facility] [address] [id number] [place] [address] May, [facility] [place] [facility] [address] [id number] [place] [address] May, [facility] [place] [facility] [address] [place] [id number] [place] [address] May, [facility] [place] [facility] [address] [id number] [place] [address] May, [facility] [place] [facility] [address] [id number] [place] [address] May, [facility] [place] [facility] [address] [id number] [place] [address] Apr, [facility] [place] [facility] [address] [id number] [place] [address] Apr, [facility] [place] [facility] [address] [id number] [place] [address] Apr, [facility] [place] [facility] [address] [id number] [place] [address] Apr, [facility] [id number] [place] [address] Apr, [facility] [address] [id number] [place] [address] Apr, [facility] [address] [id number] [place] [address] Mar, [facility] [address] [id number] [place] [address] Feb, [facility] [address] [id number] [place] [address] Jan, [facility] [address] [id number] [place] [address] Jan, [facility] [address] [id number] [place] [address] Jan, [facility] [address] [id number] [place] [address] Dec, [facility] [address] [id number] [place] [address] November, [facility] [address] [id number] [place] [address] November, [facility] [address] [id number] [place] [address] November, [facility] [address] [id number] [place] [address] November, [facility] [address] [id number] [place] [address] Oct, [facility] [address] [id number] [place] [address] Aug, [facility] [address] [id number] [place] [address] Aug, [facility] [address] [id number] [place] [address] Aug, [facility] [address] [id number] [place] [address] Aug, [facility] [address] [id number] [place] [address] Aug, [facility] [address] [id number] [place] [address] Aug, [facility] [address] [id number] [place] [address] Jul, [facility] [address] [id number] [place] [address] May, [facility] [address] [id number] [place] [address] May, [facility] [address] [id number] [place] [address] May, [facility] [id number] [place] [address] May, [facility] [address] [id number] [place] [address] May, [facility] [address] [id number] [place] [address] May, [facility] [address] [id number] [place] [address] May, [facility] [id number] [place] [address] Apr, [facility] [address] [id number] [place] [address] Apr, [facility] [id number] [place] [address] Apr, [facility] [address] [id number] [place] [address] Apr, [facility] [id number] [place] [address] Apr, [facility] [address] [id number] [place] [address] Sep, [facility] [facility] [address] [id number] [place] [id number] Aug, [facility] [address] [id number] [place] [address] Aug, [facility] [address] [id number] [place] [id number] Aug, [facility] [address] [id number] [place] [address] Aug, [facility] [address] [id number] [place] [address] Aug, [facility] [address] [id number] [place] [address] Jul, [facility] [id number] [place] [address] Jul, [facility] [id number] [place] [address] Jul, [facility] [id number] [place] [address] Jun, [facility] [id number] [place] [address] Jun, [facility] [id number] [place] [address] Jun, [facility] [id number] [place] [address] May, [facility] [address] [id number] [place] [address] Apr, [facility] [id number] [place] [address] Apr, [facility] [address] [id number] [place] [address] Apr, [facility] [id number] [place] [address] Apr, IMMUNIZATIONS No Known Immunizations SOCIAL HISTORY Never Assessed REASON FOR VISIT PLAN OF CARE VITAL SIGNS Height 69 in 2014-01-03 Weight 332.25 lbs 2014-01-03 Temperature 97 degrees Fahrenheit 2014-01-03 Heart Rate 80 bpm 2014-01-03 Respiratory Rate 18 2014-01-03 Blood pressure systolic 138 mmHg 2014-01-03 Blood pressure diastolic 84 mmHg 2014-01-03 MEDICATIONS Unknown Medications RESULTS No Results PROCEDURES Procedure Date Ordered Result Body Site URINE CULTURE/COLONY COUNT January 03, 2014 URINALYSIS, AUTO, W/O SCOPE January 03, 2014 INSTRUCTIONS MEDICATIONS ADMINISTERED No Known Medications MEDICAL (GENERAL) HISTORY Type Description Date Medical History hypertension Medical History Sleep apnea in adult Surgical History x 3 Surgical History cholecystectomy Surgical History Chemical Stress Test, EKG, Echo 05/2016 Hospitalization History surgeries Hospitalization History UTI VC 05/2016
--- OUTSIDE RECORDS SUMMARY | 2019-09-25 06:41 | XMS REPORT | Continuity of Care Document ---
Author Organization Unknown Address Unknown Phone Unavailable Allergies Active Description Code Type Severity Reaction Onset Reported/Identified Relationship to Patient Clinical Status Yes chlorthalidone 25 mg tablet Drug Allergy N/A N/A 11/22/2012 Yes hydrochlorothiazide 25 mg tablet Drug Allergy N/A N/A 11/22/2012 Yes codeine Drug Allergy N/A N/A 03/01/2013 Yes red onion Food Allergy N/A N/A 03/01/2013 Yes codeine [id number] Drug Allergy Unknown N/A 10/29/2014 Yes hydrochlorothiazide [id number] Drug Allergy Unknown N/A 10/29/2014 Yes ONION Food Allergy N/A N/A 10/30/2014 Yes codeine [id number] Drug Allergy Severe NECK SWELLING 01/02/2018 Yes hydrochlorothiazide [id number] Drug Allergy Severe NECK SWELLING 018 Medications There is no data. Problems Date Dx Coded Attending Type Code Diagnosis Diagnosed By 02/08/2008 783.1 Weig ht Gain Abnormal 02/08/2008 784.0 Headache 02/08/2008 V18.0 FAMI LY HISTORY OF DIABETES MELLITUS 02/08/2008 NAHOMY PETERSON DO 783.1 Weight Gain Abnormal 02/08/2008 NAHOMY PETERSON DO 784.0 Headache 02/08/2008 NAHOMY PETERSON DO V18.0 FAMILY HISTORY OF DIABETES MELLITUS 02/08/2008 783.1 Weig ht Gain Abnormal 02/08/2008 784.0 Headache 02/08/2008 V18.0 FAMI LY HISTORY OF DIABETES MELLITUS 02/08/2008 783.1 Weig ht Gain Abnormal 02/08/2008 784.0 Headache 02/08/2008 V18.0 FAMI LY HISTORY OF DIABETES MELLITUS 02/08/2008 783.1 Weig ht Gain Abnormal 02/08/2008 784.0 Headache 02/08/2008 V18.0 FAMI LY HISTORY OF DIABETES MELLITUS 02/08/2008 783.1 Weig ht Gain Abnormal 02/08/2008 784.0 Headache 02/08/2008 V18.0 FAMI LY HISTORY OF DIABETES MELLITUS 02/08/2008 CAROL PETERSON DOA K 783.1 Weight Gain Abnormal 02/08/2008 CAROL PETERSON DOA K 784.0 Headache 02/08/2008 CAROL PETERSON DOA K V18.0 FAMILY HISTORY OF DIABETES MELLITUS 02/08/2008 BALBIR MORRISSEY APRN R 783.1 Weight Gain Abnormal 02/08/2008 RADHA MORRISSEY APRNIA R 784.0 Headache 02/08/2008 RADHA MORRISSEY APRNIA R V18.0 FAMILY HISTORY OF DIABETES MELLITUS 02/08/2008 SHANNON KHAN APRNA S 783.1 Weight Gain Abnormal 02/08/2008 SHANNON KHAN APRNA S 784.0 Headache 02/08/2008 SHANNON KHAN APRNA S V18.0 FAMILY HISTORY OF DIABETES MELLITUS 02/08/2008 SHANNON KHAN APRNA S 783.1 Weight Gain Abnormal 02/08/2008 SHANNON KHAN APRNA S 784.0 Headache 02/08/2008 SHANNON KHAN APRNA S V18.0 FAMILY HISTORY OF DIABETES MELLITUS 02/08/2008 RADHA MORRISSEY APRNIA R 783.1 Weight Gain Abnormal 02/08/2008 RADHA MORRISSEY APRNIA R 784.0 Headache 02/08/2008 RADHA MORRISSEY APRNIA R V18.0 FAMILY HISTORY OF DIABETES MELLITUS 02/08/2008 JAZZMINE APRN, RUTH A 78 3.1 Weight Gain Abnormal 02/08/2008 JAZZMINE APRN, RUTH A 78 4.0 Headache 02/08/2008 JAZZMINE APRN, RUTH A V1 8.0 FAMILY HISTORY OF DIABETES MELLITUS 02/08/2008 GEORGETTE KHAN APRNNDA S 783.1 Weight Gain Abnormal 02/08/2008 GEORGETTE KHAN APRNNDA S 784.0 Headache 02/08/2008 GEORGETTE KHAN APRNNDA S V18.0 FAMILY HISTORY OF DIABETES MELLITUS 02/08/2008 SHANNON KHAN APRNA S 783.1 Weight Gain Abnormal 02/08/2008 BILL FULL TIME BABYSITTER, CARISA S 784.0 Headache 02/08/2008 BILL FISHER CARISA S V18.0 FAMILY HISTORY OF DIABETES MELLITUS 02/08/2008 RADHA MORRISSEY APRNIA R 783.1 Weight Gain Abnormal 02/08/2008 FANY MORRISSEY APRNRICIA R 784.0 Headache 02/08/2008 RADHA MORRISSEY APRNIA [...] FAMILY HISTORY OF DIABETES MELLITUS 02/09/2008 250.00 Marnie betes Ii Controlled 02/09/2008 NAHOMY PETERSON DO K 250.00 Diabetes Ii Controlled 02/09/2008 250.00 Marnie betes Ii Controlled 02/09/2008 250.00 Marnie betes Ii Controlled 02/09/2008 250.00 Marnie betes Ii Controlled 02/09/2008 250.00 Marnie betes Ii Controlled 02/09/2008 NAHOMY PETERSON DO K 250.00 Diabetes Ii Controlled 02/09/2008 BALBIR MORRISSEY APRN R 250.00 Diabetes Ii Controlled 02/09/2008 SHANNON KHAN APRNA S 250.00 Diabetes Ii Controlled 02/09/2008 GEORGETTE KHAN APRNNDA S 250.00 Diabetes Ii Controlled 02/09/2008 BALBIR MORRISSEY APRN R 250.00 Diabetes Ii Controlled 02/09/2008 RUTH DOVER APRN 250.00 Diabetes Ii Controlled 02/09/2008 BILL FULL TIME BABYSITTER, CARISA S 250.00 Diabetes Ii Controlled 02/09/2008 BILL FISHER, CARISA S 250.00 Diabetes Ii Controlled 02/09/2008 RADHA MORRISSEY APRNIA R 250.00 Diabetes Ii Controlled 02/09/2008 BILL FULL TIME BABYSITTER, CARISA S 250.00 Diabetes Ii Controlled 02/09/2008 BILL FISHER, CARISA S 250.00 Diabetes Ii Controlled 02/09/2008 BILL FISHER, CARISA S 250.00 Diabetes Ii Controlled 08/01/2008 462 Pharyn gitis Acute 08/01/2008 NAHOMY PETERSON DO 462 Pharyngitis Acute 08/01/2008 462 Pharyn gitis Acute 08/01/2008 462 Pharyn gitis Acute 08/01/2008 462 Pharyn gitis Acute 08/01/2008 462 Pharyn gitis Acute 08/01/2008 NAHOMY PETERSON DO K 462 Pharyngitis Acute 08/01/2008 BALBIR MORRISSEY APRN R 462 Pharyngitis Acute 08/01/2008 SHANNON KHAN APRNA S 462 Pharyngitis Acute 08/01/2008 SHANNON KHAN APRNA S 462 Pharyngitis Acute 08/01/2008 BALBIR MORRISSEY APRN R 462 Pharyngitis Acute 08/01/2008 RUTH DOVER APRN A 46 2 Pharyngitis Acute 08/01/2008 GEORGETTE KHAN APRNNDA S 462 Pharyngitis Acute 08/01/2008 SHANNON KHAN APRNA S 462 Pharyngitis Acute 08/01/2008 BALBIR MORRISSEY APRN R 462 Pharyngitis Acute 08/01/2008 GEORGETTE KHAN APRNNDA S 462 Pharyngitis Acute 08/01/2008 GEORGETTE KHAN APRNNDA S 462 Pharyngitis Acute 08/01/2008 GEORGETTE KHAN APRNNDA S 462 Pharyngitis Acute 12/18/2008 599.0 Urin aditi Tract Infection 12/18/2008 NAHOMY PETERSON DO K 599.0 Urinary Tract Infection 12/18/2008 599.0 Urin aditi Tract Infection 12/18/2008 599.0 Urin aditi Tract Infection 12/18/2008 599.0 Urin aditi Tract Infection 12/18/2008 599.0 Urin aditi Tract Infection 12/18/2008 PETERSON DO, NAHOMY K 599.0 Urinary Tract Infection 12/18/2008 GHANSHYAM FULL TIME BABYSITTER, BALBIR R 599.0 Urinary Tract Infection 12/18/2008 BILL FULL TIME BABYSITTER, CARISA S 599.0 Urinary Tract Infection 12/18/2008 BILL FULL TIME BABYSITTER, CARISA S 599.0 Urinary Tract Infection 12/18/2008 GHANSHYAM FULL TIME BABYSITTERFANYBALBIR R 599.0 Urinary Tract Infection 12/18/2008 YU DOVER APRNIDI A 59 9.0 Urinary Tract Infection 12/18/2008 BILL FULL TIME BABYSITTER, CARISA S 599.0 Urinary Tract Infection 12/18/2008 BILL FULL TIME BABYSITTER, CARISA S 599.0 Urinary Tract Infection 12/18/2008 FANY MORRISSEY APRNRICIA R 599.0 Urinary Tract Infection 12/18/2008 BILL FULL TIME BABYSITTER, CARISA S 599.0 Urinary Tract Infection 12/18/2008 BILL FULL TIME BABYSITTER, CARISA S 599.0 Urinary Tract Infection 12/18/2008 BILL FULL TIME BABYSITTER, CARISA S 599.0 Urinary Tract Infection 01/22/2009 401.1 ESSE NTIAL HYPERTENSION BENIGN 01/22/2009 PETERSON DO, NAHOMY K 401.1 ESSENTIAL HYPERTENSION BENIGN 01/22/2009 401.1 ESSE NTIAL HYPERTENSION BENIGN 01/22/2009 401.1 ESSE NTIAL HYPERTENSION BENIGN 01/22/2009 401.1 ESSE NTIAL HYPERTENSION BENIGN 01/22/2009 401.1 ESSE NTIAL HYPERTENSION BENIGN 01/22/2009 PETERSON DO, NAHOMY K 401.1 ESSENTIAL HYPERTENSION BENIGN 01/22/2009 RADHA MORRISSEY APRNIA R 401.1 ESSENTIAL HYPERTENSION BENIGN 01/22/2009 BILL FISHER CARISA S 401.1 ESSENTIAL HYPERTENSION BENIGN 01/22/2009 BILL FISHER CARISA S 401.1 ESSENTIAL HYPERTENSION BENIGN 01/22/2009 FANY MORRISSEY APRNRICIA R 401.1 ESSENTIAL HYPERTENSION BENIGN 01/22/2009 JAZZMINE FISHER RUTH A 40 1.1 ESSENTIAL HYPERTENSION BENIGN 01/22/2009 SHANNON KHAN APRNA S 401.1 ESSENTIAL HYPERTENSION BENIGN 01/22/2009 SHANNON KHAN APRNA S 401.1 ESSENTIAL HYPERTENSION BENIGN 01/22/2009 BALBIR MORRISSEY APRN R 401.1 ESSENTIAL HYPERTENSION BENIGN 01/22/2009 GEORGETTE KHAN APRNNDA S 401.1 ESSENTIAL HYPERTENSION BENIGN 01/22/2009 GEORGETTE KHAN APRNNDA S 401.1 ESSENTIAL HYPERTENSION BENIGN 01/22/2009 GEORGETTE KHAN APRNNDA S 401.1 ESSENTIAL HYPERTENSION BENIGN 08/07/2009 719.47 Tavon n In Joint, Ankle And Foot 08/07/2009 PETERSON DOCAROLA K 719.47 Pain In Joint, Ankle And Foot 08/07/2009 719.47 Tavon n In Joint, Ankle And Foot 08/07/2009 719.47 Tavon n In Joint, Ankle And Foot 08/07/2009 719.47 Tavon n In Joint, Ankle And Foot 08/07/2009 719.47 Tavon n In Joint, Ankle And Foot 08/07/2009 NAHOMY PETERSON DO K 719.47 Pain In Joint, Ankle And Foot 08/07/2009 RADHA MORRISSEY APRNIA R 719.47 Pain In Joint, Ankle And Foot 08/07/2009 SHANNON KHAN APRNA S 719.47 Pain In Joint, Ankle And [...] Pain In Joint, Ankle And Foot 08/07/2009 BILLHIRA FISHER, CARISA S 719.47 Pain In Joint, Ankle And Foot 08/11/2009 780.79 Fatigue 08/11/2009 NAHOMY PETERSON DO 780.79 Fatigue 08/11/2009 780.79 Fatigue 08/11/2009 780.79 Fatigue 08/11/2009 780.79 Fatigue 08/11/2009 780.79 Fatigue 08/11/2009 NAHOMY PETERSON DO 780.79 Fatigue 08/11/2009 BALBIR MORRISSEY APRN R 780.79 Fatigue 08/11/2009 BILL FISHER CARISA S 780.79 Fatigue 08/11/2009 GEORGETTE KHAN APRNNDA S 780.79 Fatigue 08/11/2009 RADHA MORRISSEY APRNIA R 780.79 Fatigue 08/11/2009 RUTH DOVER APRN 780.79 Fatigue 08/11/2009 BILL FISHER CARISA S 780.79 Fatigue 08/11/2009 GEORGETTE KHAN APRNNDA S 780.79 Fatigue 08/11/2009 RADHA MORRISSEY APRNIA R 780.79 Fatigue 08/11/2009 BILL FISHER CARISA S 780.79 Fatigue 08/11/2009 GEORGETTE KHNA APRNNDA S 780.79 Fatigue 08/11/2009 BILL FISHER CARISA S 780.79 Fatigue 09/09/2009 V74.1 Scre ening Examination For Pulmonary Tuberculosis 09/09/2009 NAHOMY PETERSON DO V74.1 Screening Examination For Pulmonary Tuberculosis 09/09/2009 V74.1 Scre ening Examination For Pulmonary Tuberculosis 09/09/2009 V74.1 Scre ening Examination For Pulmonary Tuberculosis 09/09/2009 V74.1 Scre ening Examination For Pulmonary Tuberculosis 09/09/2009 V74.1 Scre ening Examination For Pulmonary Tuberculosis 09/09/2009 NAHOMY PETERSON DO V74.1 Screening Examination For Pulmonary Tuberculosis 09/09/2009 BALBIR MORRISSEY APRN R V74.1 Screening Examination For Pulmonary Tuberculosis 09/09/2009 BILL FISHER CARISA S V74.1 Screening Examination For Pulmonary Tuberculosis 09/09/2009 GEORGETTE KHAN APRNNDA S V74.1 Screening Examination For Pulmonary Tuberculosis 09/09/2009 GHANSHYAM FISHER, BALBIR R V74.1 Screening Examination For Pulmonary Tuberculosis 09/09/2009 JAZZMINELIZZ FISHER, RUTH A V7 4.1 Screening Examination For Pulmonary Tuberculosis 09/09/2009 BILL FULL TIME BABYSITTER, CARISA S V74.1 Screening Examination For Pulmonary Tuberculosis 09/09/2009 BILL FULL TIME BABYSITTER, CARISA S V74.1 Screening Examination For Pulmonary Tuberculosis 09/09/2009 FANY MORRISSEY APRNRICIA R V74.1 Screening Examination For Pulmonary Tuberculosis 09/09/2009 BILL FULL TIME BABYSITTER, CARISA S V74.1 Screening Examination For Pulmonary Tuberculosis 09/09/2009 BILL FULL TIME BABYSITTER, CARISA S V74.1 Screening Examination For Pulmonary Tuberculosis 09/09/2009 BILL FISHER, CARISA S V74.1 Screening Examination For Pulmonary Tuberculosis 09/15/2009 V72.31 Rou irwin Gynecological Examination 09/15/2009 NAHOMY PETERSON DO K V72.31 Routine Gynecological Examination 09/15/2009 V72.31 Rou irwin Gynecological Examination 09/15/2009 V72.31 Rou irwin Gynecological Examination 09/15/2009 V72.31 Rou irwin Gynecological Examination 09/15/2009 V72.31 Rou irwin Gynecological Examination 09/15/2009 NAHOMY PETERSON DO K V72.31 Routine Gynecological Examination 09/15/2009 FANY MORRISSEY APRNRICIA R V72.31 Routine Gynecological Examination 09/15/2009 BILLHIRA FISHER, CARISA S V72.31 Routine Gynecological Examination 09/15/2009 BILL FISHER, CARISA S V72.31 Routine Gynecological Examination 09/15/2009 GHANSHYAM FISHER BALBIR R V72.31 Routine Gynecological Examination 09/15/2009 JAZZMINELIZZ FISHER RUTH A V72.31 Routine Gynecological Examination 09/15/2009 BILL FISHER, CARISA S V72.31 Routine Gynecological Examination 09/15/2009 BILL FISHER CARISA S V72.31 Routine Gynecological Examination 09/15/2009 FANY MORRISSEY APRNRICIA R V72.31 Routine Gynecological Examination 09/15/2009 BILL FISHER CARISA S V72.31 Routine Gynecological Examination 09/15/2009 BILL FISHER CARISA S V72.31 Routine Gynecological Examination 09/15/2009 BILL FULL TIME BABYSITTER, CARISA S V72.31 Routine Gynecological Examination 12/11/2009 300.00 Anx iety State, Unspecified 12/11/2009 PETERSON DO, NAHOMY K 300.00 Anxiety State, Unspecified 12/11/2009 300.00 Anx iety State, Unspecified 12/11/2009 300.00 Anx iety State, Unspecified 12/11/2009 300.00 Anx iety State, Unspecified 12/11/2009 300.00 Anx iety State, Unspecified 12/11/2009 PETERSON DO, NAHOMY K 300.00 Anxiety State, Unspecified 12/11/2009 MORRISSEY FULL TIME BABYSITTER, BALBIR R 300.00 Anxiety State, Unspecified 12/11/2009 BILL FULL TIME BABYSITTER, CARISA S 300.00 Anxiety State, Unspecified 12/11/2009 BILL FULL TIME BABYSITTER, CARISA S 300.00 Anxiety State, Unspecified 12/11/2009 GHANSHYAM FULL TIME BABYSITTERFANY [place] R 300.00 Anxiety State, Unspecified 12/11/2009 JAZZMINE FULL TIME BABYSITTER, RUTH A 300.00 Anxiety State, Unspecified 12/11/2009 BILL FULL TIME BABYSITTER, CARISA S 300.00 Anxiety State, Unspecified 12/11/2009 BILL FULL TIME BABYSITTER, CARISA S 300.00 Anxiety State, Unspecified 12/11/2009 MORRISSEY FULL TIME BABYSITTER BALBIR R 300.00 Anxiety State, Unspecified 12/11/2009 BILL FULL TIME BABYSITTER, CARISA S 300.00 Anxiety State, Unspecified 12/11/2009 BILL FULL TIME BABYSITTER, CARISA S 300.00 Anxiety State, Unspecified 12/11/2009 BILL FULL TIME BABYSITTER, CARISA S 300.00 Anxiety State, Unspecified 04/27/2011 461.0 Acut e Maxillary Sinusitis 04/27/2011 727.43 Pili glion Unspecified 04/27/2011 PETERSON DO, NAHOMY K 461.0 Acute Maxillary Sinusitis 04/27/2011 PETERSON DO, NAHOMY K 727.43 Ganglion Unspecified 04/27/2011 461.0 Acut e Maxillary Sinusitis 04/27/2011 727.43 Pili glion Unspecified 04/27/2011 461.0 Acut e Maxillary Sinusitis 04/27/2011 727.43 Pili glion Unspecified 04/27/2011 461.0 Acut e Maxillary Sinusitis 04/27/2011 727.43 Pili glion Unspecified 04/27/2011 461.0 Acut e Maxillary Sinusitis 04/27/2011 727.43 Pili glion Unspecified 04/27/2011 PETERSON DO, NAHOMY K 461.0 Acute Maxillary Sinusitis 04/27/2011 PETERSON DO, NAHOMY K 727.43 Ganglion Unspecified 04/27/2011 MORRISSEY FULL TIME BABYSITTER, BALBIR R 461.0 Acute Maxillary Sinusitis 04/27/2011 MORRISSEY FULL TIME BABYSITTER, BALBIR R 727.43 Ganglion Unspecified 04/27/2011 BILL FULL TIME BABYSITTER, CARISA S 461.0 Acute Maxillary Sinusitis 04/27/2011 BILL FULL TIME BABYSITTER, CARISA S 727.43 Ganglion Unspecified 04/27/2011 BILL FULL TIME BABYSITTER, CARISA S 461.0 Acute Maxillary Sinusitis 04/27/2011 BILL FULL TIME BABYSITTER, CARISA S 727.43 Ganglion Unspecified 04/27/2011 GHANSHYAM FULL TIME BABYSITTER, BALBIR R 461.0 Acute Maxillary Sinusitis 04/27/2011 MORRISSEY FULL TIME BABYSITTER, BALBIR R 727.43 Ganglion Unspecified 04/27/2011 JAZZMINE FULL TIME BABYSITTER, RUTH A 46 1.0 Acute Maxillary Sinusitis 04/27/2011 JAZZMINE FULL TIME BABYSITTER, RUTH A 727.43 Ganglion Unspecified 04/27/2011 BILL FULL TIME BABYSITTER, CARISA S 461.0 Acute Maxillary Sinusitis 04/27/2011 BILL FULL TIME BABYSITTER, CARISA S 727.43 Ganglion Unspecified 04/27/2011 BILL FULL TIME BABYSITTER, CARISA S 461.0 Acute Maxillary Sinusitis 04/27/2011 BILL FULL TIME BABYSITTER, CARISA S 727.43 Ganglion Unspecified 04/27/2011 GHANSHYAM FULL TIME BABYSITTER, BALBIR R 461.0 Acute Maxillary Sinusitis 04/27/2011 MORRISSEY FULL TIME BABYSITTER, BALBIR R 727.43 Ganglion Unspecified 04/27/2011 BILL FULL TIME BABYSITTER, CARISA S 461.0 Acute Maxillary Sinusitis 04/27/2011 BILL FULL TIME BABYSITTER, CARISA S 727.43 Ganglion Unspecified 04/27/2011 BILL FULL TIME BABYSITTER, CARISA S 461.0 Acute Maxillary Sinusitis 04/27/2011 BILL FULL TIME BABYSITTER, CARISA S 727.43 Ganglion Unspecified 04/27/2011 BILL FULL TIME BABYSITTER, CARISA S 461.0 Acute Maxillary Sinusitis 04/27/2011 BILL FULL TIME BABYSITTER, CARISA S 727.43 Ganglion Unspecified 07/01/2011 Ot 784.0 HEAD ACHE 07/01/2011 Ot 786.52 TAVON NFUL RESPIRATION 07/15/2011 300.00 ANX IETY DISORDER NOS 07/15/2011 NAHOMY PETERSON DO 300.00 ANXIETY DISORDER NOS 07/15/2011 300.00 ANX IETY DISORDER NOS 07/15/2011 300.00 ANX IETY DISORDER NOS 07/15/2011 300.00 ANX IETY DISORDER NOS 07/15/2011 300.00 ANX IETY DISORDER NOS 07/15/2011 NAHOMY PETERSON DO K 300.00 ANXIETY DISORDER NOS 07/15/2011 FANY MORRISSEY APRNRICIA R 300.00 ANXIETY DISORDER NOS 07/15/2011 BILL FULL TIME BABYSITTER, CARISA S 300.00 ANXIETY DISORDER NOS 07/15/2011 BILL FULL TIME BABYSITTER, CARISA S 300.00 ANXIETY DISORDER NOS 07/15/2011 GHANSHYAM FULL TIME BABYSITTER, BALBIR R 300.00 ANXIETY DISORDER NOS 07/15/2011 JAZZMINELIZZ FISHER RUTH A 300.00 ANXIETY DISORDER NOS 07/15/2011 BILL FULL TIME BABYSITTER, CARISA S 300.00 ANXIETY DISORDER NOS 07/15/2011 BILL FULL TIME BABYSITTER, CARISA S 300.00 ANXIETY DISORDER NOS 07/15/2011 GHANSHYAM FISHER BALBIR R 300.00 ANXIETY DISORDER NOS 07/15/2011 IBLL FULL TIME BABYSITTER, CARISA S 300.00 ANXIETY DISORDER NOS 07/15/2011 BILL FULL TIME BABYSITTER, CARISA S 300.00 ANXIETY DISORDER NOS 07/15/2011 BILL FULL TIME BABYSITTER, CARISA S 300.00 ANXIETY DISORDER NOS 08/18/2011 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 08/18/2011 NAHOMY PETERSON DO K 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 08/18/2011 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 08/18/2011 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 08/18/2011 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 08/18/2011 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 08/18/2011 PETERSON DO, NAHOMY K 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 08/18/2011 FANY MORRISSEY APRNRICIA R 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 08/18/2011 GEORGETTE KHAN APRNNDA S 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 08/18/2011 GEORGETTE KHAN APRNNDA S 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 08/18/2011 FANY MORRISSEY APRNRICIA R 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 08/18/2011 JAZZMINELIZZ FISHER, RUTH A 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 08/18/2011 GEORGETTE KHAN APRNNDA S 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 08/18/2011 GEORGETTE KHAN APRNNDA S 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 08/18/2011 FANY MORRISSEY APRNRICIA R 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 08/18/2011 GEORGETTE KHAN APRNNDA S 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 08/18/2011 GEORGETTE KHAN APRNNDA S 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 08/18/2011 GEORGETTE KHAN APRNNDA S 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 08/25/2011 465.9 UPPE R RESPIRATORY INFECTION 08/25/2011 PETERSON DO, NAHOMY K 465.9 UPPER RESPIRATORY INFECTION 08/25/2011 465.9 UPPE R RESPIRATORY INFECTION 08/25/2011 465.9 UPPE R RESPIRATORY INFECTION 08/25/2011 465.9 UPPE R RESPIRATORY INFECTION 08/25/2011 465.9 UPPE R RESPIRATORY INFECTION 08/25/2011 NAHOMY PETERSON DO K 465.9 UPPER RESPIRATORY INFECTION 08/25/2011 RADHA MORRISSEY APRNIA R 465.9 UPPER RESPIRATORY INFECTION 08/25/2011 GEORGETTE KHAN APRNNDA S 465.9 UPPER RESPIRATORY INFECTION 08/25/2011 GEORGETTE KHAN APRNNDA S 465.9 UPPER RESPIRATORY INFECTION 08/25/2011 RADHA MORRISSEY APRNIA R 465.9 UPPER RESPIRATORY INFECTION 08/25/2011 YU DOVER APRNIDI A 46 5.9 UPPER RESPIRATORY INFECTION 08/25/2011 SHANNON KHAN APRNA S 465.9 UPPER RESPIRATORY INFECTION 08/25/2011 GEORGETTE KHAN APRNNDA S 465.9 UPPER RESPIRATORY INFECTION 08/25/2011 BALBIR MORRISSEY APRN R 465.9 UPPER RESPIRATORY INFECTION 08/25/2011 SHANNON KHAN APRNA S 465.9 UPPER RESPIRATORY INFECTION 08/25/2011 GEORGETTE KHAN APRNNDA S 465.9 UPPER RESPIRATORY INFECTION 08/25/2011 SHANNON KHAN APRNA S 465.9 UPPER RESPIRATORY INFECTION 09/01/2011 311 MO DEP RESS NOS 09/01/2011 NAHOMY PETERSON DO K 311 MO DEPRESS NOS 09/01/2011 311 MO DEP RESS NOS 09/01/2011 311 MO DEP RESS NOS 09/01/2011 311 MO DEP RESS NOS 09/01/2011 311 MO DEP RESS NOS 09/01/2011 NAHOMY PETERSON DO K 311 MO DEPRESS NOS 09/01/2011 BALBIR MORRISSEY APRN R 311 MO DEPRESS NOS 09/01/2011 SHANNON KHAN APRNA S 311 MO DEPRESS NOS 09/01/2011 SHANNON KHAN APRNA S 311 MO DEPRESS NOS 09/01/2011 BALBIR MORRISSEY APRN R 311 MO DEPRESS NOS 09/01/2011 JAZZMINE FISHER RUTH A 31 1 MO DEPRESS NOS 09/01/2011 SHANNON KHAN APRNA S 311 MO DEPRESS NOS 09/01/2011 SHANNON KHAN APRNA S 311 MO DEPRESS NOS 09/01/2011 RADHA MORRISSEY APRNIA R 311 MO DEPRESS NOS 09/01/2011 SHANNON KHAN APRNA S 311 MO DEPRESS NOS 09/01/2011 SHANNON KHAN APRNA S 311 MO DEPRESS NOS 09/01/2011 GEORGETTE KHAN APRNNDA S 311 MO DEPRESS NOS 09/02/2011 466.0 ACUT E BRONCHITIS 09/02/2011 NAHOMY PETERSON DO K 466.0 ACUTE BRONCHITIS 09/02/2011 466.0 ACUT E BRONCHITIS 09/02/2011 466.0 ACUT E BRONCHITIS 09/02/2011 466.0 ACUT E BRONCHITIS 09/02/2011 466.0 ACUT E BRONCHITIS 09/02/2011 NAHOMY PETERSON DO K 466.0 ACUTE BRONCHITIS 09/02/2011 BALBIR MORRISSEY APRN R 466.0 ACUTE BRONCHITIS 09/02/2011 BILL FULL TIME BABYSITTER, CARISA S 466.0 ACUTE BRONCHITIS 09/02/2011 GEORGETTE KHAN APRNNDA S 466.0 ACUTE BRONCHITIS 09/02/2011 BALBIR MORRISSEY APRN R 466.0 ACUTE BRONCHITIS 09/02/2011 JAZZMINEYU [place] APRNIDI A 46 6.0 ACUTE BRONCHITIS 09/02/2011 GEORGETTE KHAN APRNNDA S 466.0 ACUTE BRONCHITIS 09/02/2011 SHANNON KHAN APRNA S 466.0 ACUTE BRONCHITIS 09/02/2011 BALBIR MORRISSEY APRN R 466.0 ACUTE BRONCHITIS 09/02/2011 SHANNON KHAN APRNA S 466.0 ACUTE BRONCHITIS 09/02/2011 GEORGETTE KHAN APRNNDA S 466.0 ACUTE BRONCHITIS 09/02/2011 SHANNON KHAN APRNA S 466.0 ACUTE BRONCHITIS 04/06/2012 Ot 401.9 HYPE RTENSION NOS 04/06/2012 Ot 784.2 SWEL LING IN HEAD NECK 04/06/2012 Ot 995.3 EDWAR RGY, UNSPECIFIED 04/06/2012 Ot E000.8 OTH ER EXTERNAL CAUSE STATUS 04/06/2012 Ot E928.8 ACC IDENT NEC 05/12/2012 Ot 462 ACUTE PHARYNGITIS 05/16/2012 462 ACUTE PHARYNGITIS 05/16/2012 NAHOMY PETERSON DO 462 ACUTE PHARYNGITIS 05/16/2012 462 ACUTE PHARYNGITIS 05/16/2012 462 ACUTE PHARYNGITIS 05/16/2012 462 ACUTE PHARYNGITIS 05/16/2012 462 ACUTE PHARYNGITIS 05/16/2012 NAHOMY PETERSON DO K 462 ACUTE PHARYNGITIS 05/16/2012 BALBIR MORRISSEY APRN R 462 ACUTE PHARYNGITIS 05/16/2012 SHANNON KHAN APRNA S 462 ACUTE PHARYNGITIS 05/16/2012 CARISA KHAN APRN S 462 ACUTE PHARYNGITIS 05/16/2012 BALBIR MORRISSEY APRN R 462 ACUTE PHARYNGITIS 05/16/2012 YU DOVER APRNIDI A 46 2 ACUTE PHARYNGITIS 05/16/2012 CARISA KHAN APRN S 462 ACUTE PHARYNGITIS 05/16/2012 SHANNON KHAN APRNA S 462 ACUTE PHARYNGITIS 05/16/2012 BALBIR MORRISSEY APRN R 462 ACUTE PHARYNGITIS 05/16/2012 BILL CHRISTYNGEORGETTECARISA S 462 ACUTE PHARYNGITIS 05/16/2012 BILL CHRISTYNGEORGETTECARISA S 462 ACUTE PHARYNGITIS 05/16/2012 SHANNON KHAN APRNA S 462 ACUTE PHARYNGITIS 05/25/2012 V04.81 FLU DX (3 YRS AND ABOVE, IM) 05/25/2012 PETERSON DO, NAHOMY K V04.81 FLU DX (3 YRS AND ABOVE, IM) 05/25/2012 V04.81 FLU DX (3 YRS AND ABOVE, IM) 05/25/2012 V04.81 FLU DX (3 YRS AND ABOVE, IM) 05/25/2012 V04.81 FLU DX (3 YRS AND ABOVE, IM) 05/25/2012 V04.81 FLU DX (3 YRS AND ABOVE, IM) 05/25/2012 PETERSON DOCAROLA K V04.81 FLU DX (3 YRS AND ABOVE, IM) 05/25/2012 RADHA MORRISSEY APRNIA R V04.81 FLU DX (3 YRS AND ABOVE, IM) 05/25/2012 SHANNON KHAN APRNA S V04.81 FLU DX (3 YRS AND ABOVE, IM) 05/25/2012 SHANNON KHAN APRNA S V04.81 FLU DX (3 YRS AND ABOVE, IM) 05/25/2012 RADHA MORRISSEY APRNIA R V04.81 FLU DX (3 YRS AND ABOVE, IM) 05/25/2012 JAZZMINE FISHER RUTH A V04.81 FLU DX (3 YRS AND ABOVE, IM) 05/25/2012 SHANNON KHAN APRNA S V04.81 FLU DX (3 YRS AND ABOVE, IM) 05/25/2012 SHANNON KHAN APRNA S V04.81 FLU DX (3 YRS AND ABOVE, IM) 05/25/2012 BALBIR MORRISSEY APRN R V04.81 FLU DX (3 YRS AND ABOVE, IM) 05/25/2012 SHANNON KHAN APRNA S V04.81 FLU DX (3 YRS AND ABOVE, IM) 05/25/2012 BILL FULL TIME BABYSITTER, CARISA S V04.81 FLU DX (3 YRS AND ABOVE, IM) 05/25/2012 BILL FULL TIME BABYSITTER, CARISA S V04.81 FLU DX (3 YRS AND ABOVE, IM) 08/16/2012 461.9 SINU SITIS ACUTE 08/16/2012 784.0 HEADACHE 08/16/2012 PETERSON DO, NAHOMY K 461.9 SINUSITIS ACUTE 08/16/2012 PETERSON DO, NAHOMY K 784.0 HEADACHE 08/16/2012 461.9 SINU SITIS ACUTE 08/16/2012 784.0 HEADACHE 08/16/2012 461.9 SINU SITIS ACUTE 08/16/2012 784.0 HEADACHE 08/16/2012 461.9 SINU SITIS ACUTE 08/16/2012 784.0 HEADACHE 08/16/2012 461.9 SINU SITIS ACUTE 08/16/2012 784.0 HEADACHE 08/16/2012 PETERSON DO, NAHOMY K 461.9 SINUSITIS ACUTE 08/16/2012 PETERSON DO, NAHOMY K 784.0 HEADACHE 08/16/2012 MORRISSEY FULL TIME BABYSITTER, BALBIR R 461.9 SINUSITIS ACUTE 08/16/2012 MORRISSEY FULL TIME BABYSITTER, BALBIR R 784.0 HEADACHE 08/16/2012 BILL FULL TIME BABYSITTER, CARISA S 461.9 SINUSITIS ACUTE 08/16/2012 BILL FULL TIME BABYSITTER, CARISA S 784.0 HEADACHE 08/16/2012 BILL FULL TIME BABYSITTER, CARISA S 461.9 SINUSITIS ACUTE 08/16/2012 BILL FULL TIME BABYSITTER, CARISA S 784.0 HEADACHE 08/16/2012 MORRISSEY FULL TIME BABYSITTER, BALBIR R 461.9 SINUSITIS ACUTE 08/16/2012 MORRISSEY FULL TIME BABYSITTER, BALBIR R 784.0 HEADACHE 08/16/2012 JAZZMINE FULL TIME BABYSITTER, RUTH A 46 1.9 SINUSITIS ACUTE 08/16/2012 JAZZMINE FULL TIME BABYSITTER, RUTH A 78 4.0 HEADACHE 08/16/2012 BILL FULL TIME BABYSITTER, CARISA S 461.9 SINUSITIS ACUTE 08/16/2012 BILL FULL TIME BABYSITTER, CARISA S 784.0 HEADACHE 08/16/2012 MORRISSEY FULL TIME BABYSITTER, BALBIR R 461.9 SINUSITIS ACUTE 08/16/2012 MORRISSEY FULL TIME BABYSITTER, BALBIR R 784.0 HEADACHE 08/16/2012 BILL FULL TIME BABYSITTER, CARISA S 461.9 SINUSITIS ACUTE 08/16/2012 BILL FULL TIME BABYSITTER, CARISA S 784.0 HEADACHE 08/16/2012 BILL FULL TIME BABYSITTER, CARISA S 461.9 SINUSITIS ACUTE 08/16/2012 BILL FULL TIME BABYSITTER, CARISA S 784.0 HEADACHE 08/16/2012 BILL FULL TIME BABYSITTER, CARISA S 461.9 SINUSITIS ACUTE 08/16/2012 BILL FULL TIME BABYSITTER, CARISA S 784.0 HEADACHE 09/04/2012 NAHOMY PETERSON DO K 278.00 OBESITY 09/04/2012 NAHOMY PETERSON DO K V73.81 HPV SCREENING 09/04/2012 NAHOMY PETERSON DO V76.2 CERVICAL CANCER SCREENING (PAP SMEAR) 09/04/2012 278.00 OBESITY 09/04/2012 V73.81 HPV SCREENING 09/04/2012 V76.2 CERV ICAL CANCER SCREENING (PAP SMEAR) 09/04/2012 278.00 OBESITY 09/04/2012 V73.81 HPV SCREENING 09/04/2012 V76.2 CERV ICAL CANCER SCREENING (PAP SMEAR) 09/04/2012 278.00 OBESITY 09/04/2012 V73.81 HPV SCREENING 09/04/2012 V76.2 CERV ICAL CANCER SCREENING (PAP SMEAR) 09/04/2012 278.00 OBESITY 09/04/2012 V73.81 HPV SCREENING 09/04/2012 V76.2 CERV ICAL CANCER SCREENING (PAP SMEAR) 09/04/2012 NAHOMY PETERSON DO K 278.00 OBESITY 09/04/2012 NAHOMY PETERSON DO K V73.81 HPV SCREENING 09/04/2012 NAHOMY PETERSON DO K V76.2 CERVICAL CANCER SCREENING (PAP SMEAR) 09/04/2012 FANY MORRISSEY APRNRICIA R 278.00 OBESITY 09/04/2012 FANY MORRISSEY APRNRICIA R V73.81 HPV SCREENING 09/04/2012 FANY MORRISSEY APRNRICIA R V76.2 CERVICAL CANCER SCREENING (PAP SMEAR) 09/04/2012 BILL FISHER, CARISA S 278.00 OBESITY 09/04/2012 BILL FULL TIME BABYSITTER, CARISA S V73.81 HPV SCREENING 09/04/2012 BILL FULL TIME BABYSITTER, CARISA S V76.2 CERVICAL CANCER SCREENING (PAP SMEAR) 09/04/2012 BILL FULL TIME BABYSITTER, CARISA S 278.00 OBESITY 09/04/2012 BILL FULL TIME BABYSITTER, CARISA S V73.81 HPV SCREENING 09/04/2012 BILL FULL TIME BABYSITTER, CARISA S V76.2 CERVICAL CANCER SCREENING (PAP SMEAR) 09/04/2012 MORRISSEY FULL TIME BABYSITTER, BALBIR R 278.00 OBESITY 09/04/2012 MORRISSEY FULL TIME BABYSITTER, BALBIR R V73.81 HPV SCREENING 09/04/2012 MORRISSEY FULL TIME BABYSITTER, BALBIR R V76.2 CERVICAL CANCER SCREENING (PAP SMEAR) 09/04/2012 JAZZMINE FULL TIME BABYSITTER, RUTH A 278.00 OBESITY 09/04/2012 JAZZMINE FULL TIME BABYSITTER, RUTH A V73.81 HPV SCREENING 09/04/2012 JAZZMINE FULL TIME BABYSITTER, RUTH A V7 6.2 CERVICAL CANCER SCREENING (PAP SMEAR) 09/04/2012 BILL FISHER, CARISA S 278.00 OBESITY 09/04/2012 BILL FULL TIME BABYSITTER, CARISA S V73.81 HPV SCREENING 09/04/2012 BILL FULL TIME BABYSITTER, CARISA S V76.2 CERVICAL CANCER SCREENING (PAP SMEAR) 09/04/2012 MORRISSEY FULL TIME BABYSITTER, BALBIR R 278.00 OBESITY 09/04/2012 GHANSHYAM FULL TIME BABYSITTER, BALBIR R V73.81 HPV SCREENING 09/04/2012 GHANSHYAM FISHER BALBIR R V76.2 CERVICAL CANCER SCREENING (PAP SMEAR) 09/04/2012 BILL FULL TIME BABYSITTER, CARISA S 278.00 OBESITY 09/04/2012 BILL FULL TIME BABYSITTER, CARISA S V73.81 HPV SCREENING 09/04/2012 BILL FULL TIME BABYSITTER, CARISA S V76.2 CERVICAL CANCER SCREENING (PAP SMEAR) 09/04/2012 BILL FULL TIME BABYSITTER, CARISA S 278.00 OBESITY 09/04/2012 BILL FULL TIME BABYSITTER, CARISA S V73.81 HPV SCREENING 09/04/2012 BILL FULL TIME BABYSITTER, CARISA S V76.2 CERVICAL CANCER SCREENING (PAP SMEAR) 09/04/2012 BILL FULL TIME BABYSITTER, CARISA S 278.00 OBESITY 09/04/2012 BILL FISHER, CARISA S V73.81 HPV SCREENING 09/04/2012 BILL FULL TIME BABYSITTER, CARISA S V76.2 CERVICAL CANCER SCREENING (PAP SMEAR) 11/07/2012 786.2 cough 11/07/2012 786.2 cough 11/07/2012 786.2 cough 11/07/2012 786.2 cough 11/07/2012 PETERSON NAHOMY PICKETT K 786.2 cough 11/07/2012 GHANSHYAM FISHER, BALBIR R 786.2 cough 11/07/2012 BILL FULL TIME BABYSITTER, CARISA S 786.2 COUGH 11/07/2012 BILL FISHER, CARISA S 786.2 COUGH 11/07/2012 FANY MORRISSEY APRNRICIA R 786.2 COUGH 11/07/2012 RUTH DOVER APRN A 78 6.2 COUGH 11/07/2012 BILL FISHER, CARISA S 786.2 COUGH 11/07/2012 FANY MORRISSEY APRNRICIA R 786.2 COUGH 11/07/2012 BILL FISHER, CARISA S 786.2 COUGH 11/07/2012 BILL FISHER, CARISA S 786.2 COUGH 11/07/2012 BILL FULL TIME BABYSITTER, CARISA S 786.2 COUGH 11/16/2012 Ot 486 PNEUMO MAHENDRA, ORGANISM NOS 11/16/2012 Ot 784.0 HEAD ACHE 11/21/2012 701.9 SKIN TAG 11/21/2012 701.9 SKIN TAG 11/21/2012 701.9 SKIN TAG 11/21/2012 PETERSON , NAHOMY K 701.9 SKIN TAG 11/21/2012 GHANSHYAM FULL TIME BABYSITTER, BALBIR R 701.9 SKIN TAG 11/21/2012 BILL FULL TIME BABYSITTER, CARISA S 701.9 SKIN TAG 11/21/2012 BILL FISHER, CARISA S 701.9 SKIN TAG 11/21/2012 FANY MORRISSEY APRNRICIA R 701.9 SKIN TAG 11/21/2012 RUTH DOVER APRN A 70 1.9 SKIN TAG 11/21/2012 GEORGETTE KHAN APRNNDA S 701.9 SKIN TAG 11/21/2012 FANY MORRISSEY APRNRICIA R 701.9 SKIN TAG 11/21/2012 BILL FULL TIME BABYSITTER, CARISA S 701.9 SKIN TAG 11/21/2012 BILL FISHER, CARISA S 701.9 SKIN TAG 11/21/2012 BILL FULL TIME BABYSITTER, CARISA S 701.9 SKIN TAG 11/22/2012 Ot 698.9 PRUR ITIC DISORDER NOS 11/22/2012 Ot 784.2 SWEL LING IN HEAD NECK 11/22/2012 Ot 995.27 OTH ER DRUG ALLERGY 11/22/2012 Ot E944.3 ADV EFF SALURETICS 11/22/2012 Ot 300.00 ANX IETY STATE NOS 11/22/2012 Ot 401.9 HYPE RTENSION NOS 11/22/[address] PAIN NOS 11/23/2012 995.27 OTH ER DRUG ALLERGY 11/23/2012 995.27 OTH ER DRUG ALLERGY 11/23/2012 995.27 OTH ER DRUG ALLERGY 11/23/2012 PETERSON DO, NAHOMY K 995.27 OTHER DRUG ALLERGY 11/23/2012 FANY MORRISSEY APRNRICIA R 995.27 OTHER DRUG ALLERGY 11/23/2012 BILLHIRA FISHER, CARISA S 995.27 OTHER DRUG ALLERGY 11/23/2012 BILL FISHER, CARISA S 995.27 OTHER DRUG ALLERGY 11/23/2012 FANY MORRISSEY APRNRICIA R 995.27 OTHER DRUG ALLERGY 11/23/2012 JAZZMINE FISHER RUTH A 995.27 OTHER DRUG ALLERGY 11/23/2012 BILL FISHER, CARISA S 995.27 OTHER DRUG ALLERGY 11/23/2012 RADHA MORRISSEY APRNIA R 995.27 OTHER DRUG ALLERGY 11/23/2012 BILL FULL TIME BABYSITTER, CARISA S 995.27 OTHER DRUG ALLERGY 11/23/2012 BILL FISHER, CARISA S 995.27 OTHER DRUG ALLERGY 11/23/2012 BILL FULL TIME BABYSITTER, CARISA S 995.27 OTHER DRUG ALLERGY 11/27/2012 Ot 729.1 MYAL GOPAL AND MYOSITIS NOS 11/27/2012 Ot 787.01 JASON SEA WITH VOMITING 11/27/2012 Ot 787.91 MARNIE RRHEA 01/23/2013 Ot 462 ACUTE PHARYNGITIS 03/01/2013 995.3 EDWAR RGY UNSPECIFIED NOT ELSEWHERE CLASSIFIED 03/01/2013 PETERSON DO, NAHOMY K 995.3 ALLERGY UNSPECIFIED NOT ELSEWHERE CLASSIFIED 03/01/2013 GHANSHYAM FULL TIME BABYSITTER, BALBIR R 995.3 ALLERGY UNSPECIFIED NOT ELSEWHERE CLASSIFIED 03/01/2013 BILL FULL TIME BABYSITTER, CARISA S 995.3 ALLERGY UNSPECIFIED NOT ELSEWHERE CLASSIFIED 03/01/2013 BILL FULL TIME BABYSITTER, CARISA S 995.3 ALLERGY UNSPECIFIED NOT ELSEWHERE CLASSIFIED 03/01/2013 GHANSHYAM FULL TIME BABYSITTER, BALBIR R 995.3 ALLERGY UNSPECIFIED NOT ELSEWHERE CLASSIFIED 03/01/2013 JAZZMINE FULL TIME BABYSITTER, RUTH A 99 5.3 ALLERGY UNSPECIFIED NOT ELSEWHERE CLASSIFIED 03/01/2013 BILL FULL TIME BABYSITTER, CARISA S 995.3 ALLERGY UNSPECIFIED NOT ELSEWHERE CLASSIFIED 03/01/2013 GHANSHYAM FULL TIME BABYSITTER, BALBIR R 995.3 ALLERGY UNSPECIFIED NOT ELSEWHERE CLASSIFIED 03/01/2013 BILL FULL TIME BABYSITTER, CARISA S 995.3 ALLERGY UNSPECIFIED NOT ELSEWHERE CLASSIFIED 03/01/2013 BILL FULL TIME BABYSITTER, CARISA S 995.3 ALLERGY UNSPECIFIED NOT ELSEWHERE CLASSIFIED 03/01/2013 BILL FULL TIME BABYSITTER, CARISA S 995.3 ALLERGY UNSPECIFIED NOT ELSEWHERE CLASSIFIED 05/16/2013 PETERSON DO, NAHOMY K 789.09 ABDOMINAL PAIN OTHER SPECIFIED SITE 05/16/2013 GHANSHYAM FULL TIME BABYSITTER, BALBIR R 789.09 ABDOMINAL PAIN OTHER SPECIFIED SITE 05/16/2013 BILL FULL TIME BABYSITTER, CARISA S 789.09 ABDOMINAL PAIN OTHER SPECIFIED SITE 05/16/2013 BILL FULL TIME BABYSITTER, CARISA S 789.09 ABDOMINAL PAIN OTHER SPECIFIED SITE 05/16/2013 GHANSHYAM FULL TIME BABYSITTER, BALBIR R 789.09 ABDOMINAL PAIN OTHER SPECIFIED SITE 05/16/2013 JAZZMINE FULL TIME BABYSITTER, RUTH A 789.09 ABDOMINAL PAIN OTHER SPECIFIED SITE 05/16/2013 BILL FULL TIME BABYSITTER, CARISA S 789.09 ABDOMINAL PAIN OTHER SPECIFIED SITE 05/16/2013 GHANSHYAM FULL TIME BABYSITTER, BALBIR R 789.09 ABDOMINAL PAIN OTHER SPECIFIED SITE 05/16/2013 BILL FULL TIME BABYSITTER, CARISA S 789.09 ABDOMINAL PAIN OTHER SPECIFIED SITE 05/16/2013 BILL FULL TIME BABYSITTER, CARISA S 789.09 ABDOMINAL PAIN OTHER SPECIFIED SITE 05/16/2013 BILL FULL TIME BABYSITTER, CARISA S 789.09 ABDOMINAL PAIN OTHER SPECIFIED SITE 06/04/2013 FANY MORRISSEY APRNRICIA R 729.5 PAIN IN LIMB 06/04/2013 BILL FULL TIME BABYSITTER, CARISA S 729.5 PAIN IN LIMB 06/04/2013 BILL FULL TIME BABYSITTER, CARISA S 729.5 PAIN IN LIMB 06/04/2013 FANY MORRISSEY APRNRICIA R 729.5 PAIN IN LIMB 06/04/2013 JAZZMINE FULL TIME BABYSITTER, RUTH A 72 9.5 PAIN IN LIMB 06/04/2013 BILL FULL TIME BABYSITTER, CARISA S 729.5 PAIN IN LIMB 06/04/2013 FANY MORRISSEY APRNRICIA R 729.5 PAIN IN LIMB 06/04/2013 BILL FULL TIME BABYSITTER, CARISA S 729.5 PAIN IN LIMB 06/04/2013 BILL FULL TIME BABYSITTER, CARISA S 729.5 PAIN IN LIMB 06/04/2013 BILL FULL TIME BABYSITTER, CARISA S 729.5 PAIN IN LIMB 06/18/2013 BILL FULL TIME BABYSITTER, CARISA S 573.8 OTHER SPECIFIED DISORDERS OF LIVER 06/18/2013 BILL FULL TIME BABYSITTER, CARISA S 573.8 OTHER SPECIFIED DISORDERS OF LIVER 06/18/2013 FANY MORRISSEY APRNRICIA R 573.8 OTHER SPECIFIED DISORDERS OF LIVER 06/18/2013 JAZZMINELIZZ CHRISTYN, RUTH A 57 3.8 OTHER SPECIFIED DISORDERS OF LIVER 06/18/2013 BILL FISHER, CARISA S 573.8 OTHER SPECIFIED DISORDERS OF LIVER 06/18/2013 FANY MORRISSEY APRNRICIA R 573.8 OTHER SPECIFIED DISORDERS OF LIVER 06/18/2013 BILL FULL TIME BABYSITTER, CARISA S 573.8 OTHER SPECIFIED DISORDERS OF LIVER 06/18/2013 BILL FULL TIME BABYSITTER, CARISA S 573.8 OTHER SPECIFIED DISORDERS OF LIVER 06/18/2013 BILL FULL TIME BABYSITTER, CARISA S 573.8 OTHER SPECIFIED DISORDERS OF LIVER 08/01/2013 Ot 462 ACUTE PHARYNGITIS 08/01/2013 Ot 487.1 FLU W RESP MANIFEST NEC 10/09/2013 BILL FULL TIME BABYSITTER, CARISA S 251.1 HYPERINSULINISM 10/09/2013 BILL FULL TIME BABYSITTER, CARISA S 780.79 fatigue 10/09/2013 MORRISSEY FULL TIME BABYSITTER, BALBIR R 251.1 HYPERINSULINISM 10/09/2013 MORRISSEY FULL TIME BABYSITTER, BALBIR R 780.79 fatigue 10/09/2013 JAZZMINE FULL TIME BABYSITTER, RUTH A 25 1.1 HYPERINSULINISM 10/09/2013 JAZZMINE FULL TIME BABYSITTER, RUTH A 780.79 fatigue 10/09/2013 BILL FULL TIME BABYSITTER, CARISA S 251.1 HYPERINSULINISM 10/09/2013 BILL FULL TIME BABYSITTER, CARISA S 780.79 FATIGUE 10/09/2013 GHANSHYAM FULL TIME BABYSITTER, BALBIR R 251.1 HYPERINSULINISM 10/09/2013 MORRISSEY FULL TIME BABYSITTER, BALBIR R 780.79 FATIGUE 10/09/2013 BILL FULL TIME BABYSITTER, CARISA S 251.1 HYPERINSULINISM 10/09/2013 BILL FULL TIME BABYSITTER, CARISA S 780.79 FATIGUE 10/09/2013 BILL FULL TIME BABYSITTER, CARISA S 251.1 HYPERINSULINISM 10/09/2013 BILL FULL TIME BABYSITTER, CARISA S 780.79 FATIGUE 10/09/2013 BILL FULL TIME BABYSITTER, CARISA S 251.1 HYPERINSULINISM 10/09/2013 BILL FULL TIME BABYSITTER, CARISA S 780.79 FATIGUE 12/27/2013 GHANSHYAM CHRISTYN, BALBIR R 034.0 STREP THROAT 12/27/2013 JAZZMINE FULL TIME BABYSITTER, RUTH A 03 4.0 STREP THROAT 12/27/2013 BILL FULL TIME BABYSITTER, CARISA S 034.0 STREP THROAT 12/27/2013 GHANSHYAM CHRISTYN, BALBIR R 034.0 STREP THROAT 12/27/2013 BILL FULL TIME BABYSITTER, CARISA S 034.0 STREP THROAT 12/27/2013 BILL FULL TIME BABYSITTER, CARISA S 034.0 STREP THROAT 12/27/2013 BILL FULL TIME BABYSITTER, CARISA S 034.0 STREP THROAT 01/03/2014 JAZZMINE FULL TIME BABYSITTER, RUTH A 59 9.0 URINARY TRACT INFECTION 01/03/2014 BILL FULL TIME BABYSITTER, CARISA S 599.0 URINARY TRACT INFECTION 01/03/2014 GHANSHYAM CHRISTYN, BALBIR R 599.0 URINARY TRACT INFECTION 01/03/2014 BILL FULL TIME BABYSITTER, CARISA S 599.0 URINARY TRACT INFECTION 01/03/2014 BILL FULL TIME BABYSITTER, CARISA S 599.0 URINARY TRACT INFECTION 01/03/2014 BILL FULL TIME BABYSITTER, CARISA S 599.0 URINARY TRACT INFECTION 02/10/2014 ENMA GARCIA MD Ot 346.90 MIGRAINE UNSPECIFIED W/O INTRACT MGRN W/ 02/10/2014 ENMA GARCIA MD Ot 784 .0 HEADACHE 02/18/2014 BILL FULL TIME BABYSITTER, CARISA S 307.81 TENSION HEADACHE 02/18/2014 BILL FULL TIME BABYSITTER, CARISA S 401.1 HYPERTENSION, BENIGN ESSENTIAL 02/18/2014 MORRISSEY FULL TIME BABYSITTER, BALBIR R 307.81 TENSION HEADACHE 02/18/2014 GHANSHYAM FULL TIME BABYSITTER, BALBIR R 401.1 HYPERTENSION, BENIGN ESSENTIAL 02/18/2014 BILL FULL TIME BABYSITTER, CARISA S 307.81 TENSION HEADACHE 02/18/2014 BILL FULL TIME BABYSITTER, CARISA S 401.1 HYPERTENSION, BENIGN ESSENTIAL 02/18/2014 BLIL FULL TIME BABYSITTER, CARISA S 307.81 TENSION HEADACHE 02/18/2014 BILL FULL TIME BABYSITTER, CARISA S 401.1 HYPERTENSION, BENIGN ESSENTIAL 02/18/2014 BILL FULL TIME BABYSITTER, CARISA S 307.81 TENSION HEADACHE 02/18/2014 BILL FULL TIME BABYSITTER, CARISA S 401.1 HYPERTENSION, BENIGN ESSENTIAL 03/08/2014 GHANSHYAM FULL TIME BABYSITTER, BALBIR R 477.8 ALLERGIC RHINITIS DUE TO OTHER ALLERGEN 03/08/2014 GHANSHYAM CHRISTYN, BALBIR R 784.0 HEADACHE 03/08/2014 BILL FULL TIME BABYSITTER, CARISA S 477.8 ALLERGIC RHINITIS DUE TO OTHER ALLERGEN 03/08/2014 BILL FULL TIME BABYSITTER, CARISA S 784.0 HEADACHE 03/08/2014 BILL FULL TIME BABYSITTER, CARISA S 477.8 ALLERGIC RHINITIS DUE TO OTHER ALLERGEN 03/08/2014 BILL FULL TIME BABYSITTER, CARISA S 784.0 HEADACHE 03/08/2014 BILL FULL TIME BABYSITTER, CARISA S 477.8 ALLERGIC RHINITIS DUE TO OTHER ALLERGEN 03/08/2014 BILL FULL TIME BABYSITTER, CARISA S 784.0 HEADACHE 09/17/2014 BILL FULL TIME BABYSITTER, CARISA S 465.9 UPPER RESPIRATORY INFECTION 09/17/2014 BILL FULL TIME BABYSITTER, CARISA S 465.9 UPPER RESPIRATORY INFECTION 09/17/2014 BILL FULL TIME BABYSITTER, CARISA S 465.9 UPPER RESPIRATORY INFECTION 09/25/2014 BILL FULL TIME BABYSITTER, CARISA S 346.90 MIGRAINE HEADACHE 09/25/2014 BILL FULL TIME BABYSITTER, CARISA S 786.2 COUGH 09/25/2014 BILL FULL TIME BABYSITTER, CARISA S 346.90 MIGRAINE HEADACHE 09/25/2014 BILL FULL TIME BABYSITTER, CARISA S 786.2 COUGH 09/25/2014 BILL FULL TIME BABYSITTER, CARISA S 346.90 MIGRAINE HEADACHE 09/25/2014 BILL FULL TIME BABYSITTER, CARISA S 786.2 COUGH 10/29/2014 FELIX PICKETT ANDREEA Swetha Ot 300.00 ANXIETY STATE NOS 10/29/2014 FELIX PICKETTCAINA Swetha Ot 529.6 GLOSSODYNIA 06/12/2016 Ot 573.8 LIVE R DISORDERS NEC 06/12/2016 Ot 789.09 ABD OMINAL PAIN, OTHER SPECIFIED SITE 06/12/2016 Ot 573.8 LIVE R DISORDERS NEC 06/12/2016 BILLGEORGETTECARISA [employer] OPERATOR Ot 573.8 LIVER DISORDERS NEC 06/14/2016 TORRES BANKS MD Ot E11. 9 TYPE 2 DIABETES MELLITUS WITHOUT COMPLIC 06/14/2016 TORRES BANKS MD Ot E66. 01 MORBID (SEVERE) OBESITY DUE TO EXCESS CA 06/14/2016 TORRES BANKS MD Ot G43.909 MIGRAINE, UNSP, NOT INTRACTABLE, WITHOUT 06/14/2016 TORRES BANKS MD Ot I10 ESSENTIAL (PRIMARY) HYPERTENSION 06/14/2016 TORRES BANKS MD Ot R07. 89 OTHER CHEST PAIN 06/14/2016 TORRES BANKS MD Ot Z68. 43 BODY MASS INDEX (BMI) 50-59.9 , ADULT 06/14/2016 TORRES BANKS MD Ot Z79. 84 JAIL (CURRENT) USE OF ORAL HYPOGLYC 07/13/2016 LEIGHA OSBORN MD Ot E11. 9 TYPE 2 DIABETES MELLITUS WITHOUT COMPLIC 07/13/2016 LEIGHA OSBORN MD Ot I10 ESSENTIAL (PRIMARY) HYPERTENSION 07/13/2016 ANURAG MD, LEIGHA A Ot J02. 0 STREPTOCOCCAL PHARYNGITIS 07/13/2016 ANNA OSBORN MDNT A Ot J02. 9 ACUTE PHARYNGITIS, UNSPECIFIED 07/13/2016 ANNA OSBORN MDNT A Ot Z79. 84 JAIL (CURRENT) USE OF ORAL HYPOGLYC 07/13/2016 LEIGHA OSBORN MD A Ot Z79.899 OTHER JAIL (CURRENT) DRUG THERAPY 07/14/2016 LEIGHA OSBORN MD A Ot E11. 9 TYPE 2 DIABETES MELLITUS WITHOUT COMPLIC 07/14/2016 LEIGHA OSBORN MD A Ot I10 ESSENTIAL (PRIMARY) HYPERTENSION 07/14/2016 LEIGHA OSBORN MD A Ot J02. 0 STREPTOCOCCAL PHARYNGITIS 07/14/2016 LEIGHA OSBORN MD A Ot J02. 9 ACUTE PHARYNGITIS, UNSPECIFIED 07/14/2016 ANNA OSBORN MDNT A Ot Z79. 84 RUN LEAD (CURRENT) USE OF ORAL HYPOGLYC 07/14/2016 LEIGHA OSBORN MD A Ot Z79.899 OTHER JAIL (CURRENT) DRUG THERAPY 07/18/2016 LEIGHA OSBORN MD A Ot E11. 9 TYPE 2 DIABETES MELLITUS WITHOUT COMPLIC 07/18/2016 LEIGHA OSBORN MD A Ot I10 ESSENTIAL (PRIMARY) HYPERTENSION 07/18/2016 LEIGHA OSBORN MD A Ot J02. 0 STREPTOCOCCAL PHARYNGITIS 07/18/2016 LEIGHA OSBORN MD A Ot J02. 9 ACUTE PHARYNGITIS, UNSPECIFIED 07/18/2016 ANNA OSBORN MDNT A Ot Z79. 84 RUN LEAD (CURRENT) USE OF ORAL HYPOGLYC 07/18/2016 ANNA OSBORN MDNT A Ot Z79.899 OTHER RUN LEAD (CURRENT) DRUG THERAPY 12/04/2016 ALLEGRA VILLATORO APRN Ot E11 .9 TYPE 2 DIABETES MELLITUS WITHOUT COMPLIC 12/04/2016 ALLEGRA VILLATORO APRN Ot I10 ESSENTIAL (PRIMARY) HYPERTENSION 12/04/2016 ALLEGRA VILLATORO APRN Ot S40.012A CONTUSION OF LEFT SHOULDER, INITIAL ENCO 12/04/2016 ALLEGRA VILLATORO APRN Ot S49.92XA UNSP INJURY OF LEFT SHOULDER AND UPPER A 12/04/2016 ALLEGRA VILLATORO APRN Ot W01.0XXA FALL SAME LEV FROM SLIP/TRIP W/O STRIKE 12/04/2016 ALLEGRA VILLATORO APRN Ot Y92.39 OT SPORTS AND ATHLETIC AREA PLACE 12/04/2016 ALLEGRA VILLATORO APRN Ot Y99 .8 OTHER EXTERNAL CAUSE STATUS 12/04/2016 ALLEGRA VILLATORO APRN Ot Z79.84 RUN LEAD (CURRENT) USE OF ORAL HYPOGLYC 12/06/2016 ALLEGRA VILLATORO APRN Ot E11 .9 TYPE 2 DIABETES MELLITUS WITHOUT COMPLIC 12/06/2016 ALLEGRA VILLATORO APRN Ot I10 ESSENTIAL (PRIMARY) HYPERTENSION 12/06/2016 ALLEGRA VILLATORO APRN Ot S40.012A CONTUSION OF LEFT SHOULDER, INITIAL ENCO 12/06/2016 ALLEGRA VILLATORO APRN Ot S49.92XA UNSP INJURY OF LEFT SHOULDER AND UPPER A 12/06/2016 ALLEGRA VILLATORO APRN Ot W01.0XXA FALL SAME LEV FROM SLIP/TRIP W/O STRIKE 12/06/2016 ALLEGRA VILLATORO APRN Ot Y92.39 [facility] SPORTS AND ATHLETIC AREA PLACE 12/06/2016 ALLEGRA VILLATORO APRN Ot Y99 .8 OTHER EXTERNAL CAUSE STATUS 12/06/2016 ALLEGRA VILLATORO APRN Ot Z79.84 JAIL (CURRENT) USE OF ORAL HYPOGLYC 02/07/2017 ANDREEA WASHINGTON DO Ot E11.9 TYPE 2 DIABETES MELLITUS WITHOUT COMPLIC 02/07/2017 ANDREEA WASHINGTNO DO Ot E78.00 PURE HYPERCHOLESTEROLEMIA, UNSPECIFIED 02/07/2017 ANDREEA W[place] DO Ot G43.909 MIGRAINE, UNSP, NOT INTRACTABLE, WITHOUT 02/07/2017 CAIN [place] DOA Swetha Ot G47.30 SLEEP APNEA, UNSPECIFIED 02/07/2017 FELIX PICKETT ANDREEA K Ot I10 ESSENTIAL (PRIMARY) HYPERTENSION 02/07/2017 CAIN [place] DOA Swetha Ot N39.0 URINARY TRACT INFECTION, SITE NOT SPECIF 02/07/2017 ANDREEA W[place] DO Ot R10.12 LEFT UPPER QUADRANT PAIN 02/07/2017 ANDREEA WASHINGTON DO Ot Z79.84 RUN LEAD (CURRENT) USE OF ORAL HYPOGLYC 02/07/2017 CAIN [place] DOA Swetha Ot Z82.49 FAMILY HX OF ISCHEM HEART DIS AND OTH DI 02/07/2017 ANDREEA W[place] DO Ot Z87.59 PERSONAL HISTORY [...] 02/08/2017 FELIX DO, ANDREEA K Ot Z79.84 JAIL (CURRENT) USE OF ORAL HYPOGLYC 02/08/2017 FELIX DO ANDREEA K Ot Z82.49 FAMILY HX OF ISCHEM HEART DIS AND OTH DI 02/08/2017 FELIX DO ANDREEA K Ot Z87.59 PERSONAL HISTORY OF COMP OF PREG, CHLDBR 03/05/2017 SOLO ALFARO Ot E11.9 TYPE 2 DIABETES MELLITUS WITHOUT COMPLIC 03/05/2017 SOOL ALFARO Ot G43.909 MIGRAINE, UNSP, NOT INTRACTABLE, WITHOUT 03/05/2017 SOLO ALFARO Ot I 10 ESSENTIAL (PRIMARY) HYPERTENSION 03/05/2017 SOLO ALFARO Ot M25.571 PAIN IN RIGHT ANKLE AND JOINTS OF RIGHT 03/05/2017 SOLO ALFARO Ot S80.861A INSECT BITE (NONVENOMOUS), RIGHT LOWER L 03/05/2017 SOLO ALFARO Ot W57.XXXA BIT/STUNG BY NONVENOM INSECT OTH NONVE 03/05/2017 SOLO ALFARO Ot Z79.84 RUN LEAD (CURRENT) USE OF ORAL HYPOGLYC 03/05/2017 SOLO ALFARO Ot Z82.49 FAMILY HX OF ISCHEM HEART DIS AND OTH DI 03/05/2017 SOLO ALFARO Ot Z87.59 PERSONAL HISTORY OF COMP OF PREG, CHLDBR 03/08/2017 SOLO ALFARO Ot E11.9 TYPE 2 DIABETES MELLITUS WITHOUT COMPLIC 03/08/2017 SOLO ALFARO Ot G43.909 MIGRAINE, UNSP, NOT INTRACTABLE, WITHOUT 03/08/2017 SOLO ALFARO Ot I 10 ESSENTIAL (PRIMARY) HYPERTENSION 03/08/2017 SOLO ALFARO Ot M25.571 PAIN IN RIGHT ANKLE AND JOINTS OF RIGHT 03/08/2017 SOLO ALFARO Ot S80.861A INSECT BITE (NONVENOMOUS), RIGHT LOWER L 03/08/2017 SOLO ALFARO Ot W57.XXXA BIT/STUNG BY NONVENOM INSECT OTH NONVE 03/08/2017 SOLO ALFARO Ot Z79.84 JAIL (CURRENT) USE OF ORAL HYPOGLYC 03/08/2017 SOLO ALFARO Ot Z82.49 FAMILY HX OF ISCHEM HEART DIS AND OTH DI 03/08/2017 SOLO ALFARO Ot Z87.59 PERSONAL HISTORY OF COMP OF PREG, CHLDBR 09/04/2017 FAITH, JIGAR [employer] Ot E11.9 TYPE 2 DIABETES MELLITUS WITHOUT COMPLIC 09/04/2017 FAITH JIGAR [employer] Ot G44.201 TENSION-TYPE HEADACHE, UNSPECIFIED, INTR 09/04/2017 FAITH, JIGAR [employer] Ot I10 ESSENTIAL (PRIMARY) HYPERTENSION 09/04/2017 FAITH JIGAR [employer] Ot R51 HEADACHE 09/04/2017 FAITH JIAGR [employer] Ot Z79.84 RUN LEAD (CURRENT) USE OF ORAL HYPOGLYC 09/04/2017 FAITH JIGAR [employer] Ot Z82.49 FAMILY HX OF ISCHEM HEART DIS AND OTH DI 09/04/2017 FAITH, JIGAR [employer] Ot Z87.01 PERSONAL HISTORY OF PNEUMONIA (RECURRENT 09/04/2017 FAITH, JIGAR [employer] Ot Z87.59 PERSONAL HISTORY OF COMP OF PREG, CHLDBR 09/04/2017 FAITH, JIGAR [employer] Ot Z88.5 ALLERGY STATUS TO NARCOTIC AGENT STATUS 09/04/2017 FAITH JIGAR [employer] Ot Z88.8 ALLERGY STATUS TO OTH DRUG/MEDS/BIOL SUB 09/06/2017 FAITH, JIGAR [employer] Ot E11.9 TYPE 2 DIABETES MELLITUS WITHOUT COMPLIC 09/06/2017 FAITH, JIGAR [employer] Ot G44.201 TENSION-TYPE HEADACHE, UNSPECIFIED, INTR 09/06/2017 FAITH J[employer]AR [employer] Ot I10 ESSENTIAL (PRIMARY) HYPERTENSION 09/06/2017 JIGAR CUEVAS [employer] Ot R51 HEADACHE 09/06/2017 JIGAR CUEVASP Ot Z79.84 RUN LEAD (CURRENT) USE OF ORAL HYPOGLYC 09/06/2017 JIGAR CUEVAS [employer] Ot Z82.49 FAMILY HX OF ISCHEM HEART DIS AND OTH DI 09/06/2017 JIGAR CUEVAS [employer] Ot Z87.01 PERSONAL HISTORY OF PNEUMONIA (RECURRENT 09/06/2017 JIGAR CUEVAS [employer] Ot Z87.59 PERSONAL HISTORY OF COMP OF PREG, CHLDBR 09/06/2017 FAITH JIGAR [employer] O[employer] Ot Z88.5 ALLERGY STATUS TO NARCOTIC AGENT STATUS 09/06/2017 JIGAR CUEVASP Ot Z88.8 ALLERGY STATUS TO OTH DRUG/MEDS/BIOL SUB 09/08/2017 ALLEGRA VILLATORO APRN Ot B34 .9 VIRAL INFECTION, UNSPECIFIED 09/08/2017 ALLEGRA VILLATORO APRN Ot E11 .9 TYPE 2 DIABETES MELLITUS WITHOUT COMPLIC 09/08/2017 ALLEGRA VILLATORO APRN Ot I10 ESSENTIAL (PRIMARY) HYPERTENSION 09/08/2017 ALLEGRA VILLATORO APRN Ot R51 HEADACHE 09/08/2017 ALLEGRA VILLATORO APRN Ot Z79.84 RUN LEAD (CURRENT) USE OF ORAL HYPOGLYC 09/08/2017 ALLEGRA VILLATORO APRN Ot Z82.49 FAMILY HX OF ISCHEM HEART DIS AND OTH DI 09/08/2017 ALLEGRA VILLATORO APRN Ot Z87.01 PERSONAL HISTORY OF PNEUMONIA (RECURRENT 09/08/2017 ALLEGRA VILLATORO APRN Ot Z87.59 PERSONAL HISTORY OF COMP OF PREG, CHLDBR 09/08/2017 ALLEGRA VILLATORO APRN Ot Z88 .5 ALLERGY STATUS TO NARCOTIC AGENT STATUS 09/08/2017 ALLEGRA VILLATORO APRN Ot Z88 .8 ALLERGY STATUS TO OTH DRUG/MEDS/BIOL SUB 09/12/2017 ALLEGRA VILLATORO APRN Ot B34 .9 VIRAL INFECTION, UNSPECIFIED 09/12/2017 ALLEGRA VILLATORO APRN Ot E11 .9 TYPE 2 DIABETES MELLITUS WITHOUT COMPLIC 09/12/2017 ALLEGRA VILLATORO APRN Ot I10 ESSENTIAL (PRIMARY) HYPERTENSION 09/12/2017 ALLEGRA VILLATORO APRN Ot R51 HEADACHE 09/12/2017 ALLEGRA VILLATORO APRN Ot Z79.84 RUN LEAD (CURRENT) USE OF ORAL HYPOGLYC 09/12/2017 ALLEGRA VILLATORO APRN Ot Z82.49 FAMILY HX OF ISCHEM HEART DIS AND OTH DI 09/12/2017 ALLEGRA VILLATORO APRN Ot Z87.01 PERSONAL HISTORY OF PNEUMONIA (RECURRENT 09/12/2017 ALLEGRA VILLATORO APRN Ot Z87.59 PERSONAL HISTORY OF COMP OF PREG, CHLDBR 09/12/2017 ALLEGRA VILLATORO APRN Ot Z88 .5 ALLERGY STATUS TO NARCOTIC AGENT STATUS 09/12/2017 ALLEGRA VILLATORO APRN Ot Z88 .8 ALLERGY STATUS TO OTH DRUG/MEDS/BIOL SUB 09/13/2017 SOLO ALFARO Ot E11.9 TYPE 2 DIABETES MELLITUS WITHOUT COMPLIC 09/13/2017 SOLO ALFARO Ot E86.9 VOLUME DEPLETION, UNSPECIFIED 09/13/2017 SOLO ALFARO Ot G43.909 MIGRAINE, UNSP, NOT INTRACTABLE, WITHOUT 09/13/2017 SOLO ALFARO Ot I 10 ESSENTIAL (PRIMARY) HYPERTENSION 09/13/2017 SOLO ALFARO Ot [...] NOT INTRACTABLE, WITHOUT 09/15/2017 SOLO ALFARO Ot I 10 ESSENTIAL (PRIMARY) HYPERTENSION 09/15/2017 SOLO ALFARO Ot R10.9 UNSPECIFIED ABDOMINAL PAIN 09/15/2017 SOLO ALFAOR Ot R11.0 NAUSEA 09/15/2017 SOLO ALFARO Ot [...] NOT INTRACTABLE, WITHOUT 09/19/2017 SOLO ALFARO Ot I 10 ESSENTIAL (PRIMARY) HYPERTENSION 09/19/2017 SOLO ALFARO Ot [...] TO OTH DRUG/MEDS/BIOL SUB 10/05/2017 CARISA KHAN Ot N85.2 HYPERTROPHY OF UTERUS 10/18/2017 CARISA KHAN Ot N85.2 HYPERTROPHY OF UTERUS 11/03/2017 CARY ANGLIN APRN Ot M79.605 PAIN IN LEFT LEG 11/03/2017 CARY ANGLIN APRN Ot M79.605 PAIN IN LEFT LEG 11/03/2017 CARY ANGLIN FULL TIME BABYSITTER Ot M79.605 PAIN IN LEFT LEG 11/15/2017 CARY ANGLIN APRN Ot M79.605 PAIN IN LEFT LEG 12/05/2017 ANDREEA WASHINGTON DO Ot E11.9 TYPE 2 DIABETES MELLITUS WITHOUT COMPLIC 12/05/2017 ANDREEA WASHINGTON DO Ot E66.01 MORBID (SEVERE) OBESITY DUE TO EXCESS CA 12/05/2017 ANDREEA WASHINGTON DO Ot G43.909 MIGRAINE, UNSP, NOT INTRACTABLE, WITHOUT 12/05/2017 ANDREEA WASHINGTON DO Ot I10 ESSENTIAL (PRIMARY) HYPERTENSION 12/05/2017 ANDREEA WASHINGTON DO Ot R10.32 LEFT LOWER QUADRANT PAIN 12/05/2017 ANDREEA WASHINGTON DO Ot R11.2 NAUSEA WITH VOMITING, UNSPECIFIED 12/05/2017 ANDREEA WASHINGTON DO Ot R19.7 DIARRHEA, UNSPECIFIED 12/05/2017 ANDREEA WASHINGTON DO Ot Z68.43 BODY MASS INDEX (BMI) 50-59.9 , ADULT 12/05/2017 ANDREEA WASHINGTON DO Ot Z82.49 FAMILY HX OF ISCHEM HEART DIS AND OTH DI 12/05/2017 ANDREEA WASHINGTON DO Ot Z87.01 PERSONAL HISTORY OF PNEUMONIA (RECURRENT 12/05/2017 ANDREEA WASHINGTON DO Ot Z87.59 PERSONAL HISTORY OF COMP OF PREG, CHLDBR 12/05/2017 ANDREEA WASHINGTON DO Ot Z88.5 ALLERGY STATUS TO NARCOTIC AGENT STATUS 12/05/2017 ANDREEA WASHINGTON DO Ot Z88.8 ALLERGY STATUS TO OTH DRUG/MEDS/BIOL SUB 12/06/2017 ANDREEA WASHINGTON DO Ot E11.9 TYPE 2 DIABETES MELLITUS WITHOUT COMPLIC 12/06/2017 FELIX PICKETT ANDREEA Posada Ot E66.01 MORBID (SEVERE) OBESITY DUE TO EXCESS CA 12/06/2017 FELIX PICKETT ANDREEA Posada Ot G43.909 MIGRAINE, UNSP, NOT INTRACTABLE, WITHOUT 12/06/2017 FELIX PICKETT ANDREEA Swetha Ot I10 ESSENTIAL (PRIMARY) HYPERTENSION 12/06/2017 FELIX PICKETT ANDREEA Swetha Ot R10.32 LEFT LOWER QUADRANT PAIN 12/06/2017 FELIX PICKETT ANDREEA Swetha Ot R11.2 NAUSEA WITH VOMITING, UNSPECIFIED 12/06/2017 FELIX PICKETT ANDREEA Swetha Ot R19.7 DIARRHEA, UNSPECIFIED 12/06/2017 FELIX PICKETT ANDREEA Posada Ot Z68.43 BODY MASS INDEX (BMI) 50-59.9 , ADULT 12/06/2017 FELIX PICKETT ANDREEA Swetha Ot Z82.49 FAMILY HX OF ISCHEM HEART DIS AND OTH DI 12/06/2017 FELIX PICKETT ANDREEA Swetha Ot Z87.01 PERSONAL HISTORY OF PNEUMONIA (RECURRENT 12/06/2017 FELIX PICKETT ANDREEA K Ot Z87.59 PERSONAL HISTORY OF COMP OF PREG, CHLDBR 12/06/2017 FELIX DO ANDREEA Swetha Ot Z88.5 ALLERGY STATUS TO NARCOTIC AGENT STATUS 12/06/2017 FELIX ANDREEA Ot Z88.8 ALLERGY STATUS TO OTH DRUG/MEDS/BIOL SUB 01/02/2018 LAN ERICKSON, EDUARDO Andrea Ot Z01.818 ENCOUNTER FOR OTHER PREPROCEDURAL EXAMIN 01/03/2018 LAN ERICKSON, EDUARDO Andrea Ot Z01.818 ENCOUNTER FOR OTHER PREPROCEDURAL EXAMIN 01/31/2018 EVELINA MEYERS DO Ot K62.5 HEMORRHAGE OF ANUS AND RECTUM 01/31/2018 EVELINA MEYERS DO Ot R19.7 DIARRHEA, UNSPECIFIED 01/31/2018 EVELINA MEYERS DO Ot Z01.8 18 ENCOUNTER FOR OTHER PREPROCEDURAL EXAMIN 02/01/2018 EVELINA MEYERS DO Ot K62.5 HEMORRHAGE OF ANUS AND RECTUM 02/01/2018 EVELINA MEYERS DO Ot R19.7 DIARRHEA, UNSPECIFIED 02/01/2018 EVELINA MEYERS DO Ot Z01.8 18 ENCOUNTER FOR OTHER PREPROCEDURAL EXAMIN 02/01/2018 DELMAN DO, EVELINA B Ot K62.5 HEMORRHAGE OF ANUS AND RECTUM 02/01/2018 DELMAN DO, EVELINA B Ot R19.7 DIARRHEA, UNSPECIFIED 02/01/2018 DELMAN DO, EVELINA B Ot Z01.8 18 ENCOUNTER FOR OTHER PREPROCEDURAL EXAMIN 02/01/2018 HERNANDOMAN DO, EVELINA B Ot K62.5 HEMORRHAGE OF ANUS AND RECTUM 02/01/2018 HERNANDOMAN DO, EVELINA B Ot R19.7 DIARRHEA, UNSPECIFIED 02/01/2018 HERNANDOMAN DO, EVELINA B Ot Z01.8 18 ENCOUNTER FOR OTHER PREPROCEDURAL EXAMIN 02/01/2018 HERNANDOMAN DO, EVELINA B Ot K62.5 HEMORRHAGE OF ANUS AND RECTUM 02/01/2018 LUIGI DO, EVELINA B Ot R19.7 DIARRHEA, UNSPECIFIED 02/01/2018 HERNANDOMAN DO, EVELINA B Ot Z01.8 18 ENCOUNTER FOR OTHER PREPROCEDURAL EXAMIN 02/02/2018 LUIGI DOALMAZIC B Ot K62.5 HEMORRHAGE OF ANUS AND RECTUM 02/02/2018 LUIGI DO, EVELINA B Ot R19.7 DIARRHEA, UNSPECIFIED 02/02/2018 HERNANDOMAN DO, EVELINA B Ot Z01.8 18 ENCOUNTER FOR OTHER PREPROCEDURAL EXAMIN 02/07/2018 LUIGI DO, EVELINA B Ot K62.5 HEMORRHAGE OF ANUS AND RECTUM 02/07/2018 LUIGI DO, EVELINA B Ot R19.7 DIARRHEA, UNSPECIFIED 02/07/2018 HERNANDOMAN DO, EVELINA B Ot Z01.8 18 ENCOUNTER FOR OTHER PREPROCEDURAL EXAMIN 02/08/2018 LUIGI PICKETT EVELINA B Ot E66.0 1 MORBID (SEVERE) OBESITY DUE TO EXCESS CA 02/08/2018 LUIGI PICKETT, EVELINA B Ot G47.3 3 OBSTRUCTIVE SLEEP APNEA (ADULT) (PEDIATR 02/08/2018 LUIGI PICKETT EVELINA B Ot I10 ESSENTIAL (PRIMARY) HYPERTENSION 02/08/2018 LUIGI PICKETT EVELINA B Ot K29.7 0 GASTRITIS, UNSPECIFIED, WITHOUT BLEEDING 02/08/2018 LUIGI PICKETT, EVELINA B Ot K29.8 0 DUODENITIS WITHOUT BLEEDING 02/08/2018 LUIGI PICKETT EVELINA B Ot K44.9 DIAPHRAGMATIC HERNIA WITHOUT OBSTRUCTION 02/08/2018 LUIGI PICKETT EVELINA B Ot K57.3 0 DVRTCLOS OF LG INT W/O PERFORATION OR AB 02/08/2018 ALMAZ MEYERS DOIC B Ot K63.5 POLYP OF COLON 02/08/2018 ALMAZ MEYERS DOIC B Ot K64.8 OTHER HEMORRHOIDS 02/08/2018 LUIGI PICKETT EVELINA B Ot Z68.4 3 BODY MASS INDEX (BMI) 50-59.9 , ADULT 02/13/2018 ALMAZ MEYERS DOIC B Ot E66.0 1 MORBID (SEVERE) OBESITY DUE TO EXCESS CA 02/13/2018 LUIGI PICKETT EVELINA B Ot G47.3 3 OBSTRUCTIVE SLEEP APNEA (ADULT) (PEDIATR 02/13/2018 ALMAZ MEYERS DOIC B Ot I10 ESSENTIAL (PRIMARY) HYPERTENSION 02/13/2018 ALMAZ MEYERS DOIC B Ot K29.7 0 GASTRITIS, UNSPECIFIED, WITHOUT BLEEDING 02/13/2018 LUIGI PICKETT EVELINA B Ot K29.8 0 DUODENITIS WITHOUT BLEEDING 02/13/2018 ALMAZ MEYERS DOIC B Ot K44.9 DIAPHRAGMATIC HERNIA WITHOUT OBSTRUCTION 02/13/2018 LUIGI PICKETT EVELINA B Ot K57.3 0 DVRTCLOS OF LG INT W/O PERFORATION OR AB 02/13/2018 EVELINA MEYERS DO B Ot K63.5 POLYP OF COLON 02/13/2018 ALMAZ MEYERS DOIC B Ot K64.8 OTHER HEMORRHOIDS 02/13/2018 LUIGI PICKETT EVELINA B Ot Z68.4 3 BODY MASS INDEX (BMI) 50-59.9 , ADULT 04/14/2018 CHRISTOFER ERICKSON, TRELL Ruiz Ot M17.12 UNILATERAL PRIMARY OSTEOARTHRITIS, LEFT 04/14/2018 CHRISTOFER ERICKSON, TRELL Ruiz Ot M47.816 SPONDYLOSIS W/O MYELOPATHY OR RADICULOPA 04/26/2018 TRELL BEAULIEU MD Ot M17.12 UNILATERAL PRIMARY OSTEOARTHRITIS, LEFT 04/26/2018 TRELL BEAULIEU MD Ot M47.816 SPONDYLOSIS W/O MYELOPATHY OR RADICULOPA 11/12/2018 CARISA KHAN Ot N85.2 HYPERTROPHY OF UTERUS 11/12/2018 CARY ANGLIN APRN Ot M79.605 PAIN IN LEFT LEG 11/12/2018 HUERTER MD, TRELL F Ot M17.12 UNILATERAL PRIMARY OSTEOARTHRITIS, LEFT 11/12/2018 CHRISTOFER ERICKSON, TRELL F Ot M47.816 SPONDYLOSIS W/O MYELOPATHY OR RADICULOPA 11/14/2018 FELIX ANDREEA K Ot E11.9 TYPE 2 DIABETES MELLITUS WITHOUT COMPLIC 11/14/2018 [place] ANDREEA K Ot E66.01 MORBID (SEVERE) OBESITY DUE TO EXCESS CA 11/14/2018 FELIX ANDREEA Ot I10 ESSENTIAL (PRIMARY) HYPERTENSION 11/14/2018 [facility] GASTRO-ESOPHAGEAL REFLUX DISEASE WITHOUT 11/14/2018 [place] ANDREEA Ot M79.605 PAIN IN LEFT LEG 11/14/2018 [facility] ANDREEA K Ot M79.662 PAIN IN LEFT LOWER LEG 11/14/2018 [place] ANDREEA PICKETT Ot Z68.44 BODY MASS INDEX (BMI) 60.0-69.9, ADULT 11/14/2018 ANDREEA WASHINGTON DO Ot Z79.51 RUN LEAD (CURRENT) USE OF INHALED STERO 11/14/2018 [place] ANDREEA PICKETT Ot Z79.84 RUN LEAD (CURRENT) USE OF ORAL HYPOGLYC 11/14/2018 FELIX ANDREEA PICKETT Ot Z82.49 FAMILY HX OF ISCHEM HEART DIS AND OTH DI 11/14/2018 ANDREEA WASHINGTON DO Ot Z87.01 PERSONAL HISTORY OF PNEUMONIA (RECURRENT 11/14/2018 ANDREEA WASHINGTON DO Ot Z87.19 PERSONAL HISTORY OF OTHER DISEASES OF TH 11/14/2018 ANDREEA WASHINGTON DO Ot Z88.5 ALLERGY STATUS TO NARCOTIC AGENT STATUS 11/14/2018 [place] ANDREEA PICKETT Ot Z88.8 ALLERGY STATUS TO OTH DRUG/MEDS/BIOL SUB 11/14/2018 FELIX ANDREEA PICKETT Ot Z98.890 OTHER SPECIFIED POSTPROCEDURAL STATES 11/18/2018 ANDREEA WASHINGTON DO Ot E11.9 TYPE 2 DIABETES MELLITUS WITHOUT COMPLIC 11/18/2018 ANDREEA WASHINGTON DO Ot E66.01 MORBID (SEVERE) OBESITY DUE TO EXCESS CA 11/18/2018 ANDREEA WASHINGTON DO Ot I10 ESSENTIAL (PRIMARY) HYPERTENSION 11/18/2018 ANDREEA WASHINGTON DO Ot K21.9 GASTRO-ESOPHAGEAL REFLUX DISEASE WITHOUT 11/18/2018 ANDREEA WASHINGTON DO Ot M79.605 PAIN IN LEFT LEG 11/18/2018 ANDREEA WASHINGTON DO Ot M79.662 PAIN IN LEFT LOWER LEG 11/18/2018 ANDREEA WASHINGTON DO Ot Z68.44 BODY MASS INDEX (BMI) 60.0-69.9, ADULT 11/18/2018 FELIX PICKETT ANDREEA Posada Ot Z79.51 JAIL (CURRENT) USE OF INHALED STERO 11/18/2018 FELIX ANDREEA Posada Ot Z79.84 RUN LEAD (CURRENT) USE OF ORAL HYPOGLYC 11/18/2018 ANDREEA WASHINGTON DO Ot Z82.49 FAMILY HX OF ISCHEM HEART DIS AND OTH DI 11/18/2018 FELIX PICKETT ANDREEA Posada Ot Z87.01 PERSONAL HISTORY OF PNEUMONIA (RECURRENT 11/18/2018 FELIX PICKETT ANDREEA Posada Ot Z87.19 PERSONAL HISTORY OF OTHER DISEASES OF TH 11/18/2018 FELIX PICKETT ANDREEA Posada Ot Z88.5 ALLERGY STATUS TO NARCOTIC AGENT STATUS 11/18/2018 FELIX PICKETT ANDREEA Posada Ot Z88.8 ALLERGY STATUS TO OTH DRUG/MEDS/BIOL SUB 11/18/2018 ANDREEA WASHINGTON DO Ot Z98.890 OTHER SPECIFIED POSTPROCEDURAL STATES 12/07/2018 CARISA KHAN Ot M51.37 OTHER INTERVERTEBRAL DISC DEGENERATION, 12/08/2018 ALINE DECKER MD Ot D64.9 ANEMIA, UNSPECIFIED 12/08/2018 ALINE DECKER MD Ot E11.9 TYPE 2 DIABETES MELLITUS WITHOUT COMPLIC 12/08/2018 ALINE DECKER MD Ot E66.01 MORBID (SEVERE) OBESITY DUE TO EXCESS CA 12/08/2018 ALINE DECKER MD Ot I10 ESSENTIAL (PRIMARY) HYPERTENSION 12/08/2018 ALINE DECKER MD Ot K21.9 GASTRO-ESOPHAGEAL REFLUX DISEASE WITHOUT 12/08/2018 ALINE DECKER MD Ot M48.061 SPINAL STENOSIS, LUMBAR REGION WITHOUT N 12/08/2018 ALINE DECKER MD Ot M51.26 OTHER INTERVERTEBRAL DISC DISPLACEMENT, 12/08/2018 ALINE DECKER MD, Ot M54.5 LOW BACK PAIN 12/08/2018 ALINE DECKER MD, Ot N83.202 UNSPECIFIED OVARIAN CYST, LEFT SIDE 12/08/2018 ALINE DECKER MD, Ot Z79.51 RUN LEAD (CURRENT) USE OF INHALED STERO 12/08/2018 ALINE DECKER MD, Ot Z79.52 JAIL (CURRENT) USE OF SYSTEMIC STER 12/08/2018 ALINE DECKER MD, Ot Z79.84 RUN LEAD (CURRENT) USE OF ORAL HYPOGLYC 12/08/2018 ALINE DECKER MD, Ot Z82.49 FAMILY HX OF ISCHEM HEART DIS AND OTH DI 12/08/2018 ALINE DECKER MD, Ot Z87.01 PERSONAL HISTORY OF PNEUMONIA (RECURRENT 12/08/2018 ALIEN DECKER MD, Ot Z87.19 PERSONAL HISTORY OF OTHER DISEASES OF TH 12/08/2018 ALINE DECKER MD, Ot Z87.440 PERSONAL HISTORY OF URINARY (TRACT) INFE 12/08/2018 ALINE DECKER MD, Ot Z88.5 ALLERGY STATUS TO NARCOTIC AGENT STATUS 12/08/2018 ALINE DECKER MD, Ot Z88.8 ALLERGY STATUS TO OTH DRUG/MEDS/BIOL SUB 12/08/2018 ALINE DECKER MD, Ot Z90.49 ACQUIRED ABSENCE OF OTHER SPECIFIED PART 12/08/2018 ALINE DECKER MD, Ot Z98.890 OTHER SPECIFIED POSTPROCEDURAL STATES 12/13/2018 ALLEGRA VILLATORO APRN Ot D64 .9 ANEMIA, UNSPECIFIED 12/13/2018 ALLEGRA VILLATORO APRN Ot E11 .9 TYPE 2 DIABETES MELLITUS WITHOUT COMPLIC 12/13/2018 ALLEGRA VILLATORO APRN Ot E66.01 MORBID (SEVERE) OBESITY DUE TO EXCESS CA 12/13/2018 ALLEGRA VILLATORO APRN Ot I10 ESSENTIAL (PRIMARY) HYPERTENSION 12/13/2018 ALLEGRA VILLATORO APRN Ot K21 .9 GASTRO-ESOPHAGEAL REFLUX DISEASE WITHOUT 12/13/2018 ALLEGRA VILLATORO APRN Ot R51 HEADACHE 12/13/2018 ALLEGRA VILLATORO APRN Ot Z68.43 BODY MASS INDEX (BMI) 50-59.9, ADULT 12/13/2018 ALLEGRA VILLATORO APRN Ot Z79.51 JAIL (CURRENT) USE OF INHALED STERO 12/13/2018 ALLEGRA VILLATORO APRN Ot Z79.52 RUN LEAD (CURRENT) USE OF SYSTEMIC STER 12/13/2018 ALLEGRA VILLATORO APRN Ot Z82.49 FAMILY HX OF ISCHEM HEART DIS AND OTH DI 12/13/2018 ALLEGRA VILLATORO APRN Ot Z86.69 PERSONAL HISTORY OF DIS OF THE NERVOUS S 12/13/2018 ALLEGRA VILLATORO APRN Ot Z87.01 PERSONAL HISTORY OF PNEUMONIA (RECURRENT 12/13/2018 ALLEGRA VILLATORO APRN Ot Z87.19 PERSONAL HISTORY OF OTHER DISEASES OF TH 12/13/2018 ALLEGRA VILLATORO APRN Ot Z87.440 PERSONAL HISTORY OF URINARY (TRACT) INFE 12/13/2018 ALLEGRA VILLATORO APRN Ot Z88 .5 ALLERGY STATUS TO NARCOTIC AGENT STATUS 12/13/2018 ALLEGRA VILLATORO APRN Ot Z88 .8 ALLERGY STATUS TO OT DRUG/MEDS/BIOL SUB 12/13/2018 ALLEGRA VILLATORO APRN Ot Z98.890 OTHER SPECIFIED POSTPROCEDURAL STATES 04/06/2019 ALLEGRA VILLATORO APRN Ot D64 .9 ANEMIA, UNSPECIFIED 04/06/2019 ALLEGRA VILLATORO APRN Ot E11 .9 TYPE 2 DIABETES MELLITUS WITHOUT COMPLIC 04/06/2019 ALLEGRA VILLATORO APRN Ot E66.01 MORBID (SEVERE) OBESITY DUE TO EXCESS CA 04/06/2019 ALLEGRA VILLATORO APRN Ot G43.909 MIGRAINE, UNSP, NOT INTRACTABLE, WITHOUT 04/06/2019 ALLEGRA VILLATORO APRN Ot I10 ESSENTIAL (PRIMARY) HYPERTENSION 04/06/2019 ALLEGRA VILLATORO APRN Ot K21 .9 GASTRO-ESOPHAGEAL REFLUX DISEASE WITHOUT 04/06/2019 ALLEGRA VILLATORO APRN Ot R10.31 RIGHT LOWER QUADRANT PAIN 04/06/2019 ALLEGRA VILLATORO APRN Ot R10 .9 UNSPECIFIED ABDOMINAL PAIN 04/06/2019 ALLEGRA VILLATORO APRN Ot Z79.51 RUN LEAD (CURRENT) USE OF INHALED STERO 04/06/2019 ALLEGRA VILLATORO APRN Ot Z79.52 RUN LEAD (CURRENT) USE OF SYSTEMIC STER 04/06/2019 ALLEGRA VILLATORO APRN Ot Z79.84 JAIL (CURRENT) USE OF ORAL HYPOGLYC 04/06/2019 ALLEGRA VILLATORO APRN Ot Z82.49 FAMILY HX OF ISCHEM HEART DIS AND OTH DI 04/06/2019 ALLEGRA VILLATORO APRN Ot Z87.440 PERSONAL HISTORY OF URINARY (TRACT) INFE 04/06/2019 ALLEGRA VILLATROO APRN Ot Z88 .5 ALLERGY STATUS TO NARCOTIC AGENT STATUS 04/06/2019 ALLEGRA VILLATORO APRN Ot Z88 .8 ALLERGY STATUS TO OT DRUG/MEDS/BIOL SUB 04/07/2019 ALLEGRA VILLATORO APRN Ot D64 .9 ANEMIA, UNSPECIFIED 04/07/2019 ALLEGRA VILLATORO APRN Ot E11 .9 TYPE 2 DIABETES MELLITUS WITHOUT COMPLIC 04/07/2019 ALLEGRA VILLATORO APRN Ot E66.01 MORBID (SEVERE) OBESITY DUE TO EXCESS CA 04/07/2019 ALLEGRA VILLATORO APRN Ot G43.909 MIGRAINE, UNSP, NOT INTRACTABLE, WITHOUT 04/07/2019 ALLEGRA VILLATORO APRN Ot I10 ESSENTIAL (PRIMARY) HYPERTENSION 04/07/2019 ALLEGRA VILLATORO APRN Ot K21 .9 GASTRO-ESOPHAGEAL REFLUX DISEASE WITHOUT 04/07/2019 ALLEGRA VILLATORO APRN Ot R10.31 RIGHT LOWER QUADRANT PAIN 04/07/2019 ALLEGRA VILLATORO APRN Ot R10 .9 UNSPECIFIED ABDOMINAL PAIN 04/07/2019 ALLEGRA VILLATORO APRN Ot Z79.51 JAIL (CURRENT) USE OF INHALED STERO 04/07/2019 ALLEGRA VILLATORO APRN Ot Z79.52 RUN LEAD (CURRENT) USE OF SYSTEMIC STER 04/07/2019 ALLEGRA VILLATORO APRN Ot Z79.84 RUN LEAD (CURRENT) USE OF ORAL HYPOGLYC 04/07/2019 ALLEGRA VILLATORO APRN Ot Z82.49 FAMILY HX OF ISCHEM HEART DIS AND OTH DI 04/07/2019 ALLEGRA VILLATORO APRN Ot Z87.440 PERSONAL HISTORY OF URINARY (TRACT) INFE 04/07/2019 ALLEGRA VILLATORO APRN Ot Z88 .5 ALLERGY STATUS TO NARCOTIC AGENT STATUS 04/07/2019 ALLEGRA VILLATORO APRN Ot Z88 .8 ALLERGY STATUS TO OTH DRUG/MEDS/BIOL SUB Procedures Code [place] [address] PAP SMEAR 09/04/2012 Q0091 PAP SMEAR OBTAIN SMEAR 09/04/2012 39161 ROUT INE VENIPUNCTURE 11/22/2012 78573 A1C (IN-HOUSE) 11/22/2012 50095 CMP 11/22/2012 [id number] GF R CALC (RESULT ONLY) 11/22/2012 90032 TSH 11/22/2012 35243 EKG, TRACING (IN-HOUSE) 11/23/2012 28446 INSU RUFINO LEVEL 11/23/[address] A BDOMEN W/ CONTRAST 05/16/2013 84852 US A BDOMEN ULTRASOUND, LIMITED (SPECIFY ORGAN) 06/20/2013 40600 ROUT INE VENIPUNCTURE 10/10/2013 39473 CBC 10/10/2013 [id number] GF R CALC (RESULT ONLY) 10/10/2013 78744 CMP 10/10/2013 89404 TSH 10/10/2013 17736 INSU RUFINO LEVEL 10/10/2013 78806 STRE P A (IN-HOUSE) 12/27/2013 14119 UA W / CULTURE IF INDICATED 01/03/2014 95956 CULT URE URINE 01/05/2014 J1885 YANA DOL INJ 03/08/2014 54765 THER APUTIC INJ SQ/IM 03/08/2014 61622 ROUT INE VENIPUNCTURE 10/14/2014 74443 A1C (IN-HOUSE) 10/14/2014 17043 CMP 10/14/2014 [id number] GF R CALC (RESULT ONLY) 10/14/2014 11834 INSU RUFINO LEVEL 10/14/2014 Results Test Result Range Complete blood count (CBC) with automate d white blood cell (WBC) differential - 06/12/16 14:45 Blood leukocytes automated count (number/volume) 8.8 10*3/uL 4.3-11.0 Blood erythrocytes automated count (number/volume) 5.14 10*6/uL 4.35-5.85 Venous blood hemoglobin measurement (mass/volume) 13.1 g/dL 11.5-16.0 Blood hematocrit (volume fraction) 41 % 35-52 Automated erythrocyte mean corpuscular volume 79 [ foz_us] 80-99 Automated erythrocyte mean corpuscular h emoglobin (mass per erythrocyte) 26 pg 25-34 Automated erythrocyte mean corpuscular h emoglobin concentration measurement (mass/volume) 32 g/dL 32-36 Automated erythrocyte distribution width ratio 15. 0 % 10.0- 14.5 Automated blood platelet count [...] 10*3 1.0-4.0 Blood monocytes automated count (number/volume) 0. 8 10*3 0.0-1.0 Automated eosinophil count 0.3 10*3/uL 0 .0-0.3 Automated blood basophil count (count/volume) 0.0 10*3/uL 0.0-0.1 Serum or plasma choriogonadotropin (preg bisi test) detection - 06/12/16 14:45 Serum or plasma choriogonadotropin ( test) de tection NEGATIVE NEGATIVE Comprehensive metabolic panel - 06/12/16 14:45 Serum or plasma sodium measurement (moles/volume) 139 mmol/L 135-145 Serum or plasma potassium measurement (moles/volume) 4.0 mmol/L 3.6-5.0 Serum or plasma chloride measurement (moles/volume) 105 mmol/L 98-107 Carbon dioxide 23 mmol/L 21-32 Serum or plasma anion gap determination (moles/volume) 11 mmol/L 5-14 Serum or plasma urea nitrogen measurement (mass/volume ) 7 mg/dL 7-18 Serum or plasma creatinine measurement (mass/volume) 0.72 mg/dL 0.60-1.30 Serum or plasma urea nitrogen/creatinine mass ratio 10 NRG Serum or plasma creatinine measurement w ith calculation of estimated glomerular filtration rate > NRG Serum or plasma glucose measurement (mass/volume) 104 mg/dL 70-105 Serum or plasma calcium measurement (mass/volume) 9.1 mg/dL 8.5-10.1 Serum or plasma total bilirubin measurement (mass/volu me) 0.7 mg/dL 0.1-1.0 Serum or plasma alkaline phosphatase noble surement (enzymatic activity/volume) 48 U/L 40-136 Serum or plasma aspartate aminotransfera se measurement (enzymatic activity/volume) 20 U/L 5-34 Serum or plasma alanine aminotransferase measurement (enzymatic activity/volume) 15 U/L 0-55 Serum or plasma protein measurement (mass/volume) 7.6 g/dL 6.4-8.2 Serum or plasma albumin measurement (mass/volume) 4.3 g/dL 3.2-4.5 Magnesium - 06/12/16 14:45 Magnesium 1.9 mg/dL 1.8-2.4 Serum or plasma amylase measurement (enz ymatic activity/volume) - 06/12/16 14:45 Serum or plasma amylase measurement (enzymatic activit y/volume) 49 U/L 25-125 PT panel in platelet poor plasma by coag ulation assay - 06/12/16 14:45 Prothrombin time (PT) in platelet poor plasma by coagu lation assay 14.2 s 12.2-14.7 INR in platelet poor plasma or blood by coagulation as say 1.1 0.8-1.4 Activated partial thromboplastin time (a PTT) in platelet poor plasma bycoagulation assay - 06/12/16 14:45 Activated partial thromboplastin time (a PTT) in platelet poor plasma bycoagulation assay 37 s 24-35 Serum or plasma troponin i.cardiac measu rement (mass/volume) - 06/12/16 14:45 Serum or plasma troponin i.cardiac measurement (mass/v olume) < ng/mL <0.30 Myoglobin, serum - 06/12/16 14:45 Myoglobin, serum 29.8 ng/mL 10.0-92.0 Complete urinalysis with reflex to cultu re - 06/12/16 17:00 Urine color determination YELLOW NRG Urine clarity determination SLIGHTLY CLOUDY NRG Urine pH measurement by test strip 6 5-9 Specific gravity of urine by test strip 1.020 1.016-1.022 Urine protein assay by test strip, semi-quantitative 2+ NEGATIVE Urine glucose detection by automated test strip NE GATIVE NEGATIVE Erythrocytes detection in urine sediment by light micr oscopy NEGATIVE NEGATIVE Urine ketones detection by automated test strip NE GATIVE NEGATIVE Urine nitrite detection by test strip POSITIVE NEGATIVE Urine total bilirubin detection by test strip NEGA TIVE NEGATIVE Urine urobilinogen measurement by automated test strip (mass/volume) 1 mg/dL NORMAL Urine leukocyte esterase detection by dipstick 1+ NEGATIVE Automated urine sediment erythrocyte cou nt by microscopy (number/high power field) NONE NRG Automated urine sediment leukocyte count by microscopy (number/high power field) RARE NRG Bacteria detection in urine sediment by light microsco py TRACE NRG Squamous epithelial cells detection in u rine sediment by light microscopy 2-5 NRG Crystals detection in urine sediment by light microsco py NONE NRG Casts detection in urine sediment by light microscopy NONE NRG Mucus detection in urine sediment by light microscopy NEGATIVE NRG Complete urinalysis with reflex to culture YES NRG Bacterial urine culture - 06/12/16 17:00 Bacterial urine culture [id number] NRG COLONY COUNT 10,000/ML - 100,000/ML NRG FTX;REPORTABLE SENSITIVITY REPORTED AT 1621, [id number] NRG URINE CULTURE RESULTS PLUS NRG Bacterial susceptibility panel - 6 17:00 Gentamicin susceptibility test by minimum inhibitory c oncentration <= NRG Trimethoprim/sulfamethoxazole susceptibi lity test by minimum inhibitoryconcentration <= NRG Ampicillin susceptibility test by minimum inhibitory c oncentration >= NRG Tobramycin susceptibility test by minimum inhibitory c oncentration <= NRG Cefazolin susceptibility test by minimum inhibitory co ncentration <= NRG Ceftriaxone susceptibility test by minimum inhibitory concentration <= NRG Ampicillin/sulbactam susceptibility test by minimum inhibitory concentration 16 NRG Piperacillin/tazobactam susceptibility t est by minimum inhibitory concentration <= NRG Ciprofloxacin susceptibility test by minimum inhibitor y concentration <= NRG Meropenem susceptibility test by minimum inhibitory co ncentration <= NRG Nitrofurantoin susceptibility test by mi nimum inhibitory concentration <= NRG Aztreonam susceptibility test by minimum inhibitory co ncentration <= NRG Extended spectrum beta lactamase (ESBL) producing bacteria susceptibility test by minimum inhibitory concentration - NRG Serum or plasma troponin i.cardiac measu rement (mass/volume) - 06/12/16 21:05 Serum or plasma troponin i.cardiac measurement (mass/v olume) < ng/mL <0.30 Complete blood count (CBC) with automate d white blood cell (WBC) differential - 06/13/16 02:45 Blood leukocytes automated count (number/volume) 7.0 10*3/uL 4.3-11.0 Blood erythrocytes automated count (number/volume) 4.65 10*6/uL 4.35-5.85 Venous blood hemoglobin measurement (mass/volume) 11.9 g/dL 11.5-16.0 Blood hematocrit (volume fraction) 37 % 35-52 Automated erythrocyte mean corpuscular volume 80 [ foz_us] 80-99 Automated erythrocyte mean corpuscular h emoglobin (mass per erythrocyte) 26 pg 25-34 Automated erythrocyte mean corpuscular h emoglobin concentration measurement (mass/volume) 32 g/dL 32-36 Automated erythrocyte distribution width ratio 15. 2 % 10.0- 14.5 Automated blood platelet count [...] 10*3 1.0-4.0 Blood monocytes automated count (number/volume) 0. 7 10*3 0.0-1.0 Automated eosinophil count 0.2 10*3/uL 0 .0-0.3 Automated blood basophil count (count/volume) 0.0 10*3/uL 0.0-0.1 Serum or plasma troponin i.cardiac measu rement (mass/volume) - 06/13/16 02:45 Serum or plasma troponin i.cardiac measurement (mass/v olume) < ng/mL <0.30 Comprehensive metabolic panel - 06/13/16 02:45 Serum or plasma sodium measurement (moles/volume) 138 mmol/L 135-145 Serum or plasma potassium measurement (moles/volume) 3.7 mmol/L 3.6-5.0 Serum or plasma chloride measurement (moles/volume) 106 mmol/L 98-107 Carbon dioxide 23 mmol/L 21-32 Serum or plasma anion gap determination (moles/volume) 9 mmol/L 5-14 Serum or plasma urea nitrogen measurement (mass/volume ) 7 mg/dL 7-18 Serum or plasma creatinine measurement (mass/volume) 0.67 mg/dL 0.60-1.30 Serum or plasma urea nitrogen/creatinine mass ratio 10 NRG Serum or plasma creatinine measurement w ith calculation of estimated glomerular filtration rate > NRG Serum or plasma glucose measurement (mass/volume) 88 mg/dL 70-105 Serum or plasma calcium measurement (mass/volume) 8.8 mg/dL 8.5-10.1 Serum or plasma total bilirubin measurement (mass/volu me) 0.6 mg/dL 0.1-1.0 Serum or plasma alkaline phosphatase noble surement (enzymatic activity/volume) 40 U/L 40-136 Serum or plasma aspartate aminotransfera se measurement (enzymatic activity/volume) 17 U/L 5-34 Serum [...] Serum or plasma cholesterol in HDL measurement (mass/v olume) 31 mg/dL 40-60 Cholesterol in LDL [mass/volume] in serum or plasma by direct assay 88 mg/dL 1-129 Serum or plasma cholesterol in VLDL measurement (mass/ volume) 24 mg/dL 5-40 Serum or plasma choriogonadotropin (preg bisi test) detection - 06/13/16 02:45 Serum or plasma choriogonadotropin ( test) de tection NEGATIVE NEGATIVE Complete blood count (CBC) with automate d white blood cell (WBC) differential - 06/14/16 04:20 Blood leukocytes automated count (number/volume) 10.8 10*3/uL 4.3-11.0 Blood erythrocytes automated count (number/volume) 4.94 10*6/uL 4.35-5.85 Venous blood hemoglobin measurement (mass/volume) 12.6 g/dL 11.5-16.0 Blood hematocrit (volume fraction) 39 % 35-52 Automated erythrocyte mean corpuscular volume 80 [ foz_us] 80-99 Automated erythrocyte mean corpuscular h emoglobin (mass per erythrocyte) 26 pg 25-34 Automated erythrocyte mean corpuscular h emoglobin concentration measurement (mass/volume) 32 g/dL 32-36 Automated erythrocyte distribution width ratio 14. 9 % 10.0- 14.5 Automated blood platelet count [...] 10*3 1.0-4.0 Blood monocytes automated count (number/volume) 0. 8 10*3 0.0-1.0 Automated eosinophil count 0.3 10*3/uL 0 .0-0.3 Automated blood basophil count (count/volume) 0.0 10*3/uL 0.0-0.1 Erythrocyte sedimentation rate by ludwig gren method - 06/14/16 04:20 Erythrocyte sedimentation rate by westergren method 21 mm 0- 20 Comprehensive metabolic panel - 06/14/16 04:20 Serum or plasma sodium measurement (moles/volume) 137 mmol/L 135-145 Serum or plasma potassium measurement (moles/volume) 3.8 mmol/L 3.6-5.0 Serum or plasma chloride measurement (moles/volume) 104 mmol/L 98-107 Carbon dioxide 24 mmol/L 21-32 Serum or plasma anion gap determination (moles/volume) 9 mmol/L 5-14 Serum or plasma urea nitrogen measurement (mass/volume ) 7 mg/dL 7-18 Serum or plasma creatinine measurement (mass/volume) 0.75 mg/dL 0.60-1.30 Serum or plasma urea nitrogen/creatinine mass ratio 9 NRG Serum or plasma creatinine measurement w ith calculation of estimated glomerular filtration rate > NRG Serum or plasma glucose measurement (mass/volume) 90 mg/dL 70-105 Serum or plasma calcium measurement (mass/volume) 8.8 mg/dL 8.5-10.1 Serum or plasma total bilirubin measurement (mass/volu me) 0.6 mg/dL 0.1-1.0 Serum or plasma alkaline phosphatase noble surement (enzymatic activity/volume) 44 U/L 40-136 Serum or plasma aspartate aminotransfera se measurement (enzymatic activity/volume) 18 U/L 5-34 Serum or plasma alanine aminotransferase measurement (enzymatic activity/volume) 13 U/L 0-55 Serum or plasma protein measurement (mass/volume) 6.9 g/dL 6.4-8.2 Serum or plasma albumin measurement (mass/volume) 4.0 g/dL 3.2-4.5 Magnesium - 06/14/16 04:20 Magnesium 2.1 mg/dL 1.8-2.4 THYROID STIMULATING HORMONE - 06/14/16 0 4:20 THYROID STIMULATING HORMONE 2.20 u[iU]/mL 0.35-4.94 Complete blood count (CBC) with automate d white blood cell (WBC) differential - 07/13/16 14:46 Blood leukocytes automated count (number/volume) 13.1 10*3/uL 4.3-11.0 Blood erythrocytes automated count (number/volume) 5.33 10*6/uL 4.35-5.85 Venous blood hemoglobin measurement (mass/volume) 13.7 g/dL 11.5-16.0 Blood hematocrit (volume fraction) 41 % 35-52 Automated erythrocyte mean corpuscular volume 77 [ foz_us] 80-99 Automated erythrocyte mean corpuscular h emoglobin (mass per erythrocyte) 26 pg 25-34 Automated erythrocyte mean corpuscular h emoglobin concentration measurement (mass/volume) 33 g/dL 32-36 Automated erythrocyte distribution width ratio 15. 0 % 10.0- 14.5 Automated blood platelet count [...] 10*3 1.0-4.0 Blood monocytes automated count (number/volume) 1. 3 10*3 0.0-1.0 Automated eosinophil count 0.0 10*3/uL 0 .0-0.3 Automated blood basophil count (count/volume) 0.0 10*3/uL 0.0-0.1 Serum heterophile antibody titer - 07/13 14:46 Serum heterophile antibody titer NEGATIVE NEGATIVE Blood lactic acid measurement (moles/vol ume) - 07/13/16 14:46 Blood lactic acid measurement (moles/volume) 1.0 m mol/L 0.5- 2.0 Whole blood basic metabolic panel - 06/18 01/30 14:46 Serum or plasma sodium measurement (moles/volume) 133 mmol/L 135-145 Serum or plasma potassium measurement (moles/volume) 4.0 mmol/L 3.6-5.0 Serum or plasma chloride measurement (moles/volume) 100 mmol/L 98-107 Carbon dioxide 23 mmol/L 21-32 Serum or plasma anion gap determination (moles/volume) 10 mmol/L 5-14 Serum or plasma urea nitrogen measurement (mass/volume ) 6 mg/dL 7-18 Serum or plasma creatinine measurement (mass/volume) 0.77 mg/dL 0.60-1.30 Serum or plasma urea nitrogen/creatinine mass ratio 8 NRG Serum or plasma creatinine measurement w ith calculation of estimated glomerular filtration rate > NRG Serum or plasma glucose measurement (mass/volume) 108 mg/dL 70-105 Serum or plasma calcium measurement (mass/volume) 9.3 mg/dL 8.5-10.1 Serum or plasma C reactive protein measu rement (mass/volume) - 07/13/16 14:46 Serum or plasma C reactive protein measurement (mass/v olume) 10.40 mg/dL 0.00-0.50 Urine beta human chorionic gonadotropin (hCG) measurement - 02/05/17 10:30 Urine beta human chorionic gonadotropin (hCG) measurem ent NEGATIVE NEGATIVE Complete urinalysis with reflex to cultu re - 02/05/17 10:30 Urine color determination YELLOW NRG Urine clarity determination VERY CLOUDY NRG Urine pH measurement by test strip 5 5-9 Specific gravity of urine by test strip 1.020 1.016-1.022 Urine protein assay by test strip, semi-quantitative NEGATIVE NEGATIVE Urine glucose detection by automated test strip NE GATIVE NEGATIVE Erythrocytes detection in urine sediment by light micr oscopy NEGATIVE NEGATIVE Urine ketones detection by automated test strip NE GATIVE NEGATIVE Urine nitrite detection by test strip NEGATIVE NEGATIVE Urine total bilirubin detection by test strip NEGA TIVE NEGATIVE Urine urobilinogen measurement by automated test strip (mass/volume) NORMAL NORMAL Urine leukocyte esterase detection by dipstick 2+ NEGATIVE Automated urine sediment erythrocyte cou nt by microscopy (number/high power field) NONE NRG Automated urine sediment leukocyte count by microscopy (number/high power field) [HPF] NRG Bacteria detection in urine sediment by light microsco py LARGE NRG Crystals detection in urine sediment by light microsco py PRESENT NRG Casts detection in urine sediment by light microscopy NONE NRG Mucus detection in urine sediment by light microscopy SMALL NRG Complete urinalysis with reflex to culture YES NRG Amorphous sediment detection in urine sediment by ligh t microscopy MOD CASSANDRA URATES NRG Bacterial urine culture - 02/05/17 10:30 URINE CULTURE RESULTS MIXED DENISSE <10,000/ML NRG Complete blood count (CBC) with automate d white blood cell (WBC) differential - 02/05/17 10:46 Blood leukocytes automated count (number/volume) 7.5 10*3/uL 4.3-11.0 Blood erythrocytes automated count (number/volume) 5.20 10*6/uL 4.35-5.85 Venous blood hemoglobin measurement (mass/volume) 12.6 g/dL 11.5-16.0 Blood hematocrit (volume fraction) 40 % 35-52 Automated erythrocyte mean corpuscular volume 77 [ foz_us] 80-99 Automated erythrocyte mean corpuscular h emoglobin (mass per erythrocyte) 24 pg 25-34 Automated erythrocyte mean corpuscular h emoglobin concentration measurement (mass/volume) 31 g/dL 32-36 Automated erythrocyte distribution width ratio 15. 0 % 10.0- 14.5 Automated blood platelet count [...] 10*3 1.0-4.0 Blood monocytes automated count (number/volume) 0. 6 10*3 0.0-1.0 Automated eosinophil count 0.5 10*3/uL 0 .0-0.3 Automated blood basophil count (count/volume) 0.0 10*3/uL 0.0-0.1 Comprehensive metabolic panel - 02/05/17 10:46 Serum or plasma sodium measurement (moles/volume) 139 mmol/L 135-145 Serum or plasma potassium measurement (moles/volume) 4.3 mmol/L 3.6-5.0 Serum or plasma chloride measurement (moles/volume) 107 mmol/L 98-107 Carbon dioxide 23 mmol/L 21-32 Serum or plasma anion gap determination (moles/volume) 9 mmol/L 5-14 Serum or plasma urea nitrogen measurement (mass/volume ) 7 mg/dL 7-18 Serum or plasma creatinine measurement (mass/volume) 0.75 mg/dL 0.60-1.30 Serum or plasma urea nitrogen/creatinine mass ratio 9 NRG Serum or plasma creatinine measurement w ith calculation of estimated glomerular filtration rate > NRG Serum or plasma glucose measurement (mass/volume) 100 mg/dL 70-105 Serum or plasma calcium measurement (mass/volume) 9.4 mg/dL 8.5-10.1 Serum or plasma total bilirubin measurement (mass/volu me) 0.4 mg/dL 0.1-1.0 Serum or plasma alkaline phosphatase noble surement (enzymatic activity/volume) 51 U/L 40-136 Serum or plasma aspartate aminotransfera se measurement (enzymatic activity/volume) 17 U/L 5-34 Serum or plasma alanine aminotransferase measurement (enzymatic activity/volume) 17 U/L 0-55 Serum or plasma protein measurement (mass/volume) 7.6 g/dL 6.4-8.2 Serum or plasma albumin measurement (mass/volume) 4.1 g/dL 3.2-4.5 Complete blood count (CBC) with automate d white blood cell (WBC) differential - 02/06/17 23:30 Blood leukocytes automated count (number/volume) 9.8 10*3/uL 4.3-11.0 Blood erythrocytes automated count (number/volume) 4.90 10*6/uL 4.35-5.85 Venous blood hemoglobin measurement (mass/volume) 11.9 g/dL 11.5-16.0 Blood hematocrit (volume fraction) 38 % 35-52 Automated erythrocyte mean corpuscular volume 77 [ foz_us] 80-99 Automated erythrocyte mean corpuscular h emoglobin (mass per erythrocyte) 24 pg 25-34 Automated erythrocyte mean corpuscular h emoglobin concentration measurement (mass/volume) 31 g/dL 32-36 Automated erythrocyte distribution width ratio 15. 0 % 10.0- 14.5 Automated blood platelet count [...] 10*3 1.0-4.0 Blood monocytes automated count (number/volume) 0. 8 10*3 0.0-1.0 Automated eosinophil count 0.6 10*3/uL 0 .0-0.3 Automated blood basophil count (count/volume) 0.0 10*3/uL 0.0-0.1 Comprehensive metabolic panel - 02/06/17 23:30 Serum or plasma sodium measurement (moles/volume) 138 mmol/L 135-145 Serum or plasma potassium measurement (moles/volume) 4.1 mmol/L 3.6-5.0 Serum or plasma chloride measurement (moles/volume) 105 mmol/L 98-107 Carbon dioxide 22 mmol/L 21-32 Serum or plasma anion gap determination (moles/volume) 11 mmol/L 5-14 Serum or plasma urea nitrogen measurement (mass/volume ) 8 mg/dL 7-18 Serum or plasma creatinine measurement (mass/volume) 0.83 mg/dL 0.60-1.30 Serum or plasma urea nitrogen/creatinine mass ratio 10 NRG Serum or plasma creatinine measurement w ith calculation of estimated glomerular filtration rate > NRG Serum or plasma glucose measurement (mass/volume) 96 mg/dL 70-105 Serum or plasma calcium measurement (mass/volume) 9.0 mg/dL 8.5-10.1 Serum or plasma total bilirubin measurement (mass/volu me) 0.3 mg/dL 0.1-1.0 Serum or plasma alkaline phosphatase noble surement (enzymatic activity/volume) 48 U/L 40-136 Serum or plasma aspartate aminotransfera se measurement (enzymatic activity/volume) 35 U/L 5-34 Serum or plasma alanine aminotransferase measurement (enzymatic activity/volume) 31 U/L 0-55 Serum or plasma protein measurement (mass/volume) 7.4 g/dL 6.4-8.2 Serum or plasma albumin measurement (mass/volume) 3.9 g/dL 3.2-4.5 Magnesium - 02/06/17 23:30 Magnesium 2.4 mg/dL 1.8-2.4 Serum or plasma troponin i.cardiac measu rement (mass/volume) - 02/06/17 23:30 Serum or plasma troponin i.cardiac measurement (mass/v olume) < ng/mL <0.30 Serum or plasma amylase measurement (enz ymatic activity/volume) - 02/06/17 23:30 Serum or plasma amylase measurement (enzymatic activit y/volume) 46 U/L 25-125 Serum or plasma lithium measurement (mol es/volume) - 02/06/17 23:30 BNP level 19.6 pg/mL <100.0 Lipase - 02/06/17 23:30 Lipase 29 U/L 8-78 Complete urinalysis with reflex to cultu re - 02/06/17 23:41 Urine color determination YELLOW NRG Urine clarity determination VERY CLOUDY NRG Urine pH measurement by test strip 6 5-9 Specific gravity of urine by test strip 1.010 1.016-1.022 Urine protein assay by test strip, semi-quantitative NEGATIVE NEGATIVE Urine glucose detection by automated test strip NE GATIVE NEGATIVE Erythrocytes detection in urine sediment by light micr oscopy 2+ NEGATIVE Urine ketones detection by automated test strip NE GATIVE NEGATIVE Urine nitrite detection by test strip NEGATIVE NEGATIVE Urine total bilirubin detection by test strip NEGA TIVE NEGATIVE Urine urobilinogen measurement by automated test strip (mass/volume) NORMAL NORMAL Urine leukocyte esterase detection by dipstick 2+ NEGATIVE Automated urine sediment erythrocyte cou nt by microscopy (number/high power field) RARE NRG Automated urine sediment leukocyte count by microscopy (number/high power field) [HPF] NRG Bacteria detection in urine sediment by light microsco py LARGE NRG Squamous epithelial cells detection in u rine sediment by light microscopy 10-25 NRG Crystals detection in urine sediment by light microsco py NONE NRG Casts detection in urine sediment by light microscopy NONE NRG Mucus detection in urine sediment by light microscopy NEGATIVE NRG Complete urinalysis with reflex to culture YES NRG Bacterial urine culture - 02/06/17 23:41 Bacterial urine culture [id number] NRG COLONY COUNT >100,000/ML NRG FTX;REPORTABLE PLUS, NRG FREE TEXT ENTRY 2 MIXED DENISSE <10,000/ML NRG CULTURE, URINE - 05/15/17 15:02 Urine Culture, Routine Final report NRG Result 1 NRG CMP - 07/07/17 13:21 GLUCOSE 82 mg/dL 65-99 UREA NITROGEN (BUN) 12 mg/dL 7-25 CREATININE 0.70 mg/dL 0.50-1.10 eGFR NON-AFR. ALGERIAN 108 mL/min/1.73m2 > OR = 60 eGFR 125 mL/min/1.73m2 > OR = 60 BUN/CREATININE RATIO NOT APPLICABLE (calc) 6-22 SODIUM 137 mmol/L 135-146 POTASSIUM 4.6 mmol/L 3.5-5.3 CHLORIDE 101 mmol/L 98-110 CARBON DIOXIDE 28 mmol/L 20-31 CALCIUM 9.6 mg/dL 8.6-10.2 PROTEIN, TOTAL 7.2 g/dL 6.1-8.1 ALBUMIN 4.2 g/dL 3.6-5.1 GLOBULIN 3.0 g/dL (calc) 1.9-3.7 ALBUMIN/GLOBULIN RATIO 1.4 (calc) 1.0-2. 5 BILIRUBIN, TOTAL 0.4 mg/dL 0.2-1.2 ALKALINE PHOSPHATASE 47 U/L 33-115 AST 15 U/L 10-30 ALT 10 U/L 6-29 Lipase - 09/08/17 17:00 Lipase 28 U/L 8-78 Complete blood count (CBC) with automate d white blood cell (WBC) differential - 09/08/17 17:52 Blood leukocytes automated count (number/volume) 9.2 10*3/uL 4.3-11.0 Blood erythrocytes automated count (number/volume) 5.05 10*6/uL 4.35-5.85 Venous blood hemoglobin measurement (mass/volume) 12.0 g/dL 11.5-16.0 Blood hematocrit (volume fraction) 37 % 35-52 Automated erythrocyte mean corpuscular volume 74 [ foz_us] 80-99 Automated erythrocyte mean corpuscular h emoglobin (mass per erythrocyte) 24 pg 25-34 Automated erythrocyte mean corpuscular h emoglobin concentration measurement (mass/volume) 32 g/dL 32-36 Automated erythrocyte distribution width ratio 15. 8 % 10.0- 14.5 Automated blood platelet count [...] 10*3 1.0-4.0 Blood monocytes automated count (number/volume) 0. 8 10*3 0.0-1.0 Automated eosinophil count 0.3 10*3/uL 0 .0-0.3 Automated blood basophil count (count/volume) 0.0 10*3/uL 0.0-0.1 Comprehensive metabolic panel - 09/08/17 17:52 Serum or plasma sodium measurement (moles/volume) 138 mmol/L 135-145 Serum or plasma potassium measurement (moles/volume) 4.2 mmol/L 3.6-5.0 Serum or plasma chloride measurement (moles/volume) 103 mmol/L 98-107 Carbon dioxide 23 mmol/L 21-32 Serum or plasma anion gap determination (moles/volume) 12 mmol/L 5-14 Serum or plasma urea nitrogen measurement (mass/volume ) 10 mg/dL 7-18 Serum or plasma creatinine measurement (mass/volume) 0.75 mg/dL 0.60-1.30 Serum or plasma urea nitrogen/creatinine mass ratio 13 NRG Serum or plasma creatinine measurement w ith calculation of estimated glomerular filtration rate > NRG Serum or plasma glucose measurement (mass/volume) 109 mg/dL 70-105 Serum or plasma calcium measurement (mass/volume) 9.7 mg/dL 8.5-10.1 Serum or plasma total bilirubin measurement (mass/volu me) 0.5 mg/dL 0.1-1.0 Serum or plasma alkaline phosphatase noble surement (enzymatic activity/volume) 47 U/L 40-136 Serum or plasma aspartate aminotransfera se measurement (enzymatic activity/volume) 19 U/L 5-34 Serum or plasma alanine aminotransferase measurement (enzymatic activity/volume) 13 U/L 0-55 Serum or plasma protein measurement (mass/volume) 7.7 g/dL 6.4-8.2 Serum or plasma albumin measurement (mass/volume) 4.0 g/dL 3.2-4.5 Serum or plasma troponin i.cardiac measu rement (mass/volume) - 09/08/17 17:52 Serum or plasma troponin i.cardiac measurement (mass/v olume) < ng/mL <0.30 Complete urinalysis with reflex to cultu re - 09/08/17 18:45 Urine color determination YELLOW NRG Urine clarity determination CLEAR NR G Urine pH measurement by test strip 8 5-9 Specific gravity of urine by test strip 1.015 1.016-1.022 Urine protein assay by test strip, semi-quantitative NEGATIVE NEGATIVE Urine glucose detection by automated test strip NE GATIVE NEGATIVE Erythrocytes detection in urine sediment by light micr oscopy NEGATIVE NEGATIVE Urine ketones detection by automated test strip NE GATIVE NEGATIVE Urine nitrite detection by test strip NEGATIVE NEGATIVE Urine total bilirubin detection by test strip NEGA TIVE NEGATIVE Urine urobilinogen measurement by automated test strip (mass/volume) NORMAL NORMAL Urine leukocyte esterase detection by dipstick 1+ NEGATIVE Automated urine sediment erythrocyte cou nt by microscopy (number/high power field) NONE NRG Automated urine sediment leukocyte count by microscopy (number/high power field) [HPF] NRG Bacteria detection in urine sediment by light microsco py MODERATE NRG Squamous epithelial cells detection in u rine sediment by light microscopy 10-25 NRG Crystals detection in urine sediment by light microsco py NONE NRG Casts detection in urine sediment by light microscopy NONE NRG Mucus detection in urine sediment by light microscopy NEGATIVE NRG Complete urinalysis with reflex to culture NO NRG CBC - 09/12/17 10:20 WHITE BLOOD CELL COUNT 8.1 Thousand/uL 3 .8-10.8 RED BLOOD CELL COUNT 5.54 Million/uL 3.8 0-5.10 HEMOGLOBIN 12.8 g/dL 11.7-15.5 HEMATOCRIT 41.6 % 35.0-45.0 MCV 75.1 fL 80.0-100.0 MCH 23.1 pg 27.0-33.0 MCHC 30.8 g/dL 32.0-36.0 RDW 14.9 % 11.0-15.0 PLATELET COUNT 412 Thousand/uL 140-400 MPV 9.4 fL 7.5-12.5 ABSOLUTE NEUTROPHILS 5030 cells/uL 1500- 7800 ABSOLUTE LYMPHOCYTES 2155 cells/uL 850-3 900 ABSOLUTE MONOCYTES 591 cells/uL 200-950 ABSOLUTE EOSINOPHILS 284 cells/uL 15-500 ABSOLUTE BASOPHILS 41 cells/uL 0-200 NEUTROPHILS 62.1 % NRG LYMPHOCYTES 26.6 % NRG MONOCYTES 7.3 % NRG EOSINOPHILS 3.5 % NRG BASOPHILS 0.5 % NRG Complete blood count (CBC) with automate d white blood cell (WBC) differential - 09/13/17 17:27 Blood leukocytes automated count (number/volume) 10.6 10*3/uL 4.3-11.0 Blood erythrocytes automated count (number/volume) 5.42 10*6/uL 4.35-5.85 Venous blood hemoglobin measurement (mass/volume) 12.8 g/dL 11.5-16.0 Blood hematocrit (volume fraction) 40 % 35-52 Automated erythrocyte mean corpuscular volume 73 [ foz_us] 80-99 Automated erythrocyte mean corpuscular h emoglobin (mass per erythrocyte) 24 pg 25-34 Automated erythrocyte mean corpuscular h emoglobin concentration measurement (mass/volume) 32 g/dL 32-36 Automated erythrocyte distribution width ratio 15. 9 % 10.0- 14.5 Automated blood platelet count [...] 10*3 1.0-4.0 Blood monocytes automated count (number/volume) 0. 9 10*3 0.0-1.0 Automated eosinophil count 0.2 10*3/uL 0 .0-0.3 Automated blood basophil count (count/volume) 0.0 10*3/uL 0.0-0.1 Comprehensive metabolic panel - 09/13/17 17:27 Serum or plasma sodium measurement (moles/volume) 137 mmol/L 135-145 Serum or plasma potassium measurement (moles/volume) 3.7 mmol/L 3.6-5.0 Serum or plasma chloride measurement (moles/volume) 102 mmol/L 98-107 Carbon dioxide 25 mmol/L 21-32 Serum or plasma anion gap determination (moles/volume) 10 mmol/L 5-14 Serum or plasma urea nitrogen measurement (mass/volume ) 8 mg/dL 7-18 Serum or plasma creatinine measurement (mass/volume) 0.85 mg/dL 0.60-1.30 Serum or plasma urea nitrogen/creatinine mass ratio 9 NRG Serum or plasma creatinine measurement w ith calculation of estimated glomerular filtration rate > NRG Serum or plasma glucose measurement (mass/volume) 100 mg/dL 70-105 Serum or plasma calcium measurement (mass/volume) 9.8 mg/dL 8.5-10.1 Serum or plasma total bilirubin measurement (mass/volu me) 0.6 mg/dL 0.1-1.0 Serum or plasma alkaline phosphatase noble surement (enzymatic activity/volume) 55 U/L 40-136 Serum or plasma aspartate aminotransfera se measurement (enzymatic activity/volume) 17 U/L 5-34 Serum or plasma alanine aminotransferase measurement (enzymatic activity/volume) 18 U/L 0-55 Serum or plasma protein measurement (mass/volume) 8.4 g/dL 6.4-8.2 Serum or plasma albumin measurement (mass/volume) 4.5 g/dL 3.2-4.5 Lipase - 09/13/17 17:27 Lipase 24 U/L 8-78 Serum or plasma C reactive protein measu rement (mass/volume) - 09/13/17 17:27 Serum or plasma C reactive protein measurement (mass/v olume) 0.11 mg/dL 0.00-0.50 Serum or plasma ethanol measurement (mas s/volume) - 09/13/17 17:27 Serum or plasma ethanol measurement (mass/volume) < mg/dL <10 Urine drug screening test - 09/13/17 19: 06 Urine phencyclidine detection by screening method NEGATIVE NEGATIVE Urine benzodiazepines detection by screening method NEGATIVE NEGATIVE Urine cocaine detection NEGATIVE NEGATI VE Urine amphetamines detection by screening method N EGATIVE NEGATIVE Urine methamphetamine detection by screening method NEGATIVE NEGATIVE Urine cannabinoids detection by screening method N EGATIVE NEGATIVE Urine opiates detection by screening method NEGATI VE NEGATIVE Urine barbiturates detection NEGATIVE N EGATIVE Screening urine tricyclic antidepressants detection NEGATIVE NEGATIVE Urine methadone detection by screening method NEGA TIVE NEGATIVE Urine oxycodone detection NEGATIVE NEGA TIVE Urine propoxyphene detection NEGATIVE N EGATIVE Complete urinalysis with reflex to cultu re - 09/13/17 19:06 Urine color determination YELLOW NRG Urine clarity determination SLIGHTLY CLOUDY NRG Urine pH measurement by test strip 5 5-9 Specific gravity of urine by test strip 1.010 1.016-1.022 Urine protein assay by test strip, semi-quantitative 1+ NEGATIVE Urine glucose detection by automated test strip NE GATIVE NEGATIVE Erythrocytes detection in urine sediment by light micr oscopy NEGATIVE NEGATIVE Urine ketones detection by automated test strip 1+ NEGATIVE Urine nitrite detection by test strip NEGATIVE NEGATIVE Urine total bilirubin detection by test strip NEGA TIVE NEGATIVE Urine urobilinogen measurement by automated test strip (mass/volume) NORMAL NORMAL Urine leukocyte esterase detection by dipstick 1+ NEGATIVE Automated urine sediment erythrocyte cou nt by microscopy (number/high power field) NONE NRG Automated urine sediment leukocyte count by microscopy (number/high power field) [HPF] NRG Bacteria detection in urine sediment by light microsco py FEW NRG Squamous epithelial cells detection in u rine sediment by light microscopy 25-50 NRG Crystals detection in urine sediment by light microsco py NONE NRG Casts detection in urine sediment by light microscopy NONE NRG Mucus detection in urine sediment by light microscopy NEGATIVE NRG Complete urinalysis with reflex to culture NO NRG CBC - 11/30/17 15:52 WHITE BLOOD CELL COUNT 7.1 Thousand/uL 3 .8-10.8 RED BLOOD CELL COUNT 5.01 Million/uL 3.8 0-5.10 HEMOGLOBIN 11.4 g/dL 11.7-15.5 HEMATOCRIT 38.7 % 35.0-45.0 MCV 77.2 fL 80.0-100.0 MCH 22.8 pg 27.0-33.0 MCHC 29.5 g/dL 32.0-36.0 RDW 16.1 % 11.0-15.0 PLATELET COUNT 375 Thousand/uL 140-400 MPV 9.5 fL 7.5-12.5 ABSOLUTE NEUTROPHILS 3493 cells/uL 1500- 7800 ABSOLUTE LYMPHOCYTES 2592 cells/uL 850-3 900 ABSOLUTE MONOCYTES 618 cells/uL 200-950 ABSOLUTE EOSINOPHILS 348 cells/uL 15-500 ABSOLUTE BASOPHILS 50 cells/uL 0-200 NEUTROPHILS 49.2 % NRG LYMPHOCYTES 36.5 % NRG MONOCYTES 8.7 % NRG EOSINOPHILS 4.9 % NRG BASOPHILS 0.7 % NRG Complete blood count (CBC) with automate d white blood cell (WBC) differential - 12/05/17 01:05 Blood leukocytes automated count (number/volume) 5.6 10*3/uL 4.3-11.0 Blood erythrocytes automated count (number/volume) 5.01 10*6/uL 4.35-5.85 Venous blood hemoglobin measurement (mass/volume) 11.9 g/dL 11.5-16.0 Blood hematocrit (volume fraction) 38 % 35-52 Automated erythrocyte mean corpuscular volume 76 [ foz_us] 80-99 Automated erythrocyte mean corpuscular h emoglobin (mass per erythrocyte) 24 pg 25-34 Automated erythrocyte mean corpuscular h emoglobin concentration measurement (mass/volume) 31 g/dL 32-36 Automated erythrocyte distribution width ratio 16. 7 % 10.0- 14.5 Automated blood platelet count [...] 10*3 1.0-4.0 Blood monocytes automated count (number/volume) 0. 6 10*3 0.0-1.0 Automated eosinophil count 0.3 10*3/uL 0 .0-0.3 Automated blood basophil count (count/volume) 0.0 10*3/uL 0.0-0.1 Comprehensive metabolic panel - 12/05/17 01:05 Serum or plasma sodium measurement (moles/volume) 140 mmol/L 135-145 Serum or plasma potassium measurement (moles/volume) 3.8 mmol/L 3.6-5.0 Serum or plasma chloride measurement (moles/volume) 105 mmol/L 98-107 Carbon dioxide 25 mmol/L 21-32 Serum or plasma anion gap determination (moles/volume) 10 mmol/L 5-14 Serum or plasma urea nitrogen measurement (mass/volume ) 8 mg/dL 7-18 Serum or plasma creatinine measurement (mass/volume) 0.79 mg/dL 0.60-1.30 Serum or plasma urea nitrogen/creatinine mass ratio 10 NRG Serum or plasma creatinine measurement w ith calculation of estimated glomerular filtration rate > NRG Serum or plasma glucose measurement (mass/volume) 126 mg/dL 70-105 Serum or plasma calcium measurement (mass/volume) 8.3 mg/dL 8.5-10.1 Serum or plasma total bilirubin measurement (mass/volu me) 0.4 mg/dL 0.1-1.0 Serum or plasma alkaline phosphatase noble surement (enzymatic activity/volume) 56 U/L 40-136 Serum or plasma aspartate aminotransfera se measurement (enzymatic activity/volume) 19 U/L 5-34 Serum or plasma alanine aminotransferase measurement (enzymatic activity/volume) 16 U/L 0-55 Serum or plasma protein measurement (mass/volume) 7.3 g/dL 6.4-8.2 Serum or plasma albumin measurement (mass/volume) 4.1 g/dL 3.2-4.5 Serum or plasma amylase measurement (enz ymatic activity/volume) - 12/05/17 01:05 Serum or plasma amylase measurement (enzymatic activit y/volume) 44 U/L 25-125 Lipase - 12/05/17 01:05 Lipase 28 U/L 8-78 Complete urinalysis with reflex to cultu re - 12/05/17 02:10 Urine color determination YELLOW NRG Urine clarity determination CLEAR NR G Urine pH measurement by test strip 6 5-9 Specific gravity of urine by test strip 1.020 1.016-1.022 Urine protein assay by test strip, semi-quantitative 1+ NEGATIVE Urine glucose detection by automated test strip NE GATIVE NEGATIVE Erythrocytes detection in urine sediment by light micr oscopy NEGATIVE NEGATIVE Urine ketones detection by automated test strip NE GATIVE NEGATIVE Urine nitrite detection by test strip NEGATIVE NEGATIVE Urine total bilirubin detection by test strip NEGA TIVE NEGATIVE Urine urobilinogen measurement by automated test strip (mass/volume) 4 mg/dL NORMAL Urine leukocyte esterase detection by dipstick 1+ NEGATIVE Automated urine sediment erythrocyte cou nt by microscopy (number/high power field) NONE NRG Automated urine sediment leukocyte count by microscopy (number/high power field) RARE NRG Bacteria detection in urine sediment by light microsco py TRACE NRG Squamous epithelial cells detection in u rine sediment by light microscopy 25-50 NRG Crystals detection in urine sediment by light microsco py NONE NRG Casts detection in urine sediment by light microscopy NONE NRG Mucus detection in urine sediment by light microscopy NEGATIVE NRG Complete urinalysis with reflex to culture NO NRG Urine beta human chorionic gonadotropin (hCG) measurement - 12/05/17 02:10 Urine beta human chorionic gonadotropin (hCG) measurem ent NEGATIVE NEGATIVE Urine beta human chorionic gonadotropin (hCG) measurement - 02/08/18 12:47 Urine beta human chorionic gonadotropin (hCG) measurem ent NEGATIVE NEGATIVE CULTURE, URINE - 05/08/18 12:08 CULTURE, URINE, ROUTINE SEE NOTE NRG Complete blood count (CBC) with automate d white blood cell (WBC) differential - 11/12/18 21:50 Blood leukocytes automated count (number/volume) 8.8 10*3/uL 4.3-11.0 Blood erythrocytes automated count (number/volume) 4.78 10*6/uL 4.35-5.85 Venous blood hemoglobin measurement (mass/volume) 13.2 g/dL 11.5-16.0 Blood hematocrit (volume fraction) 41 % 35-52 Automated erythrocyte mean corpuscular volume 85 [ foz_us] 80-99 Automated erythrocyte mean corpuscular h emoglobin (mass per erythrocyte) 28 pg 25-34 Automated erythrocyte mean corpuscular h emoglobin concentration measurement (mass/volume) 33 g/dL 32-36 Automated erythrocyte distribution width ratio 13. 4 % 10.0- 14.5 Automated blood platelet count [...] 10*3 1.0-4.0 Blood monocytes automated count (number/volume) 0. 9 10*3 0.0-1.0 Automated eosinophil count 0.3 10*3/uL 0 .0-0.3 Automated blood basophil count (count/volume) 0.0 10*3/uL 0.0-0.1 PT panel in platelet poor plasma by coag ulation assay - 11/12/18 21:50 Prothrombin time (PT) in platelet poor plasma by coagu lation assay 13.4 s 12.2-14.7 INR in platelet poor plasma or blood by coagulation as say 1.0 0.8-1.4 Activated partial thromboplastin time (a PTT) in platelet poor plasma bycoagulation assay - 11/12/18 21:50 Activated partial thromboplastin time (a PTT) in platelet poor plasma bycoagulation assay 40 s 24-35 Serum or plasma choriogonadotropin (preg bisi test) detection - 11/12/18 21:50 Serum or plasma choriogonadotropin ( test) de tection NEGATIVE NEGATIVE Comprehensive metabolic panel - 11/12/18 21:50 Serum or plasma sodium measurement (moles/volume) 139 mmol/L 135-145 Serum or plasma potassium measurement (moles/volume) 3.7 mmol/L 3.6-5.0 Serum or plasma chloride measurement (moles/volume) 105 mmol/L 98-107 Carbon dioxide 23 mmol/L 21-32 Serum or plasma anion gap determination (moles/volume) 11 mmol/L 5-14 Serum or plasma urea nitrogen measurement (mass/volume ) 10 mg/dL 7-18 Serum or plasma creatinine measurement (mass/volume) 0.73 mg/dL 0.60-1.30 Serum or plasma urea nitrogen/creatinine mass ratio 14 NRG Serum or plasma creatinine measurement w ith calculation of estimated glomerular filtration rate > NRG Serum or plasma glucose measurement (mass/volume) 104 mg/dL 70-105 Serum or plasma calcium measurement (mass/volume) 9.4 mg/dL 8.5-10.1 Serum or plasma total bilirubin measurement (mass/volu me) 0.3 mg/dL 0.1-1.0 Serum or plasma alkaline phosphatase noble surement (enzymatic activity/volume) 49 U/L 40-136 Serum or plasma aspartate aminotransfera se measurement (enzymatic activity/volume) 18 U/L 5-34 Serum or plasma alanine aminotransferase measurement (enzymatic activity/volume) 18 U/L 0-55 Serum or plasma protein measurement (mass/volume) 7.2 g/dL 6.4-8.2 Serum or plasma albumin measurement (mass/volume) 4.1 g/dL 3.2-4.5 CALCIUM CORRECTED 9.3 mg/dL 8.5-10.1 Magnesium - 11/12/18 21:50 Magnesium 2.4 mg/dL 1.8-2.4 Serum or plasma lithium measurement (mol es/volume) - 11/12/18 21:50 BNP level 21.6 pg/mL <100.0 Complete blood count (CBC) with automate d white blood cell (WBC) differential - 12/04/18 02:43 Blood leukocytes automated count (number/volume) 8.7 10*3/uL 4.3-11.0 Blood erythrocytes automated count (number/volume) 4.93 10*6/uL 4.35-5.85 Venous blood hemoglobin measurement (mass/volume) 13.6 g/dL 11.5-16.0 Blood hematocrit (volume fraction) 42 % 35-52 Automated erythrocyte mean corpuscular volume 84 [ foz_us] 80-99 Automated erythrocyte mean corpuscular h emoglobin (mass per erythrocyte) 28 pg 25-34 Automated erythrocyte mean corpuscular h emoglobin concentration measurement (mass/volume) 33 g/dL 32-36 Automated erythrocyte distribution width ratio 13. 7 % 10.0- 14.5 Automated blood platelet count [...] 10*3 1.0-4.0 Blood monocytes automated count (number/volume) 0. 7 10*3 0.0-1.0 Automated eosinophil count 0.4 10*3/uL 0 .0-0.3 Automated blood basophil count (count/volume) 0.0 10*3/uL 0.0-0.1 Serum or plasma choriogonadotropin (preg bisi test) detection - 12/04/18 02:43 Serum or plasma choriogonadotropin ( test) de tection NEGATIVE NEGATIVE Comprehensive metabolic panel - 12/04/18 02:43 Serum or plasma sodium measurement (moles/volume) 138 mmol/L 135-145 Serum or plasma potassium measurement (moles/volume) 4.0 mmol/L 3.6-5.0 Serum or plasma chloride measurement (moles/volume) 106 mmol/L 98-107 Carbon dioxide 21 mmol/L 21-32 Serum or plasma anion gap determination (moles/volume) 11 mmol/L 5-14 Serum or plasma urea nitrogen measurement (mass/volume ) 9 mg/dL 7-18 Serum or plasma creatinine measurement (mass/volume) 1.02 mg/dL 0.60-1.30 Serum or plasma urea nitrogen/creatinine mass ratio 9 NRG Serum or plasma creatinine measurement w ith calculation of estimated glomerular filtration rate 59 NRG Serum or plasma glucose measurement (mass/volume) 97 mg/dL 70-105 Serum or plasma calcium measurement (mass/volume) 9.3 mg/dL 8.5-10.1 Serum or plasma total bilirubin measurement (mass/volu me) 0.3 mg/dL 0.1-1.0 Serum or plasma alkaline phosphatase noble surement (enzymatic activity/volume) 48 U/L 40-136 Serum or plasma aspartate aminotransfera se measurement (enzymatic activity/volume) 26 U/L 5-34 Serum or plasma alanine aminotransferase measurement (enzymatic activity/volume) 20 U/L 0-55 Serum or plasma protein measurement (mass/volume) 7.0 g/dL 6.4-8.2 Serum or plasma albumin measurement (mass/volume) 4.0 g/dL 3.2-4.5 CALCIUM CORRECTED 9.3 mg/dL 8.5-10.1 Lipase - 12/04/18 02:43 Lipase 31 U/L 8-78 Complete urinalysis with reflex to cultu re - 12/04/18 03:22 Urine color determination YELLOW NRG Urine clarity determination CLEAR NR G Urine pH measurement by test strip 7 5-9 Specific gravity of urine by test strip 1.010 1.016-1.022 Urine protein assay by test strip, semi-quantitative NEGATIVE NEGATIVE Urine glucose detection by automated test strip NE GATIVE NEGATIVE Erythrocytes detection in urine sediment by light micr oscopy NEGATIVE NEGATIVE Urine ketones detection by automated test strip NE GATIVE NEGATIVE Urine nitrite detection by test strip NEGATIVE NEGATIVE Urine total bilirubin detection by test strip NEGA TIVE NEGATIVE Urine urobilinogen measurement by automated test strip (mass/volume) NORMAL NORMAL Urine leukocyte esterase detection by dipstick 1+ NEGATIVE Automated urine sediment erythrocyte cou nt by microscopy (number/high power field) NONE NRG Automated urine sediment leukocyte count by microscopy (number/high power field) RARE NRG Bacteria detection in urine sediment by light microsco py FEW NRG Squamous epithelial cells detection in u rine sediment by light microscopy 0-2 NRG Crystals detection in urine sediment by light microsco py NONE NRG Casts detection in urine sediment by light microscopy NONE NRG Mucus detection in urine sediment by light microscopy NEGATIVE NRG Complete urinalysis with reflex to culture NO NRG Complete blood count (CBC) with automate d white blood cell (WBC) differential - 04/04/19 15:44 Blood leukocytes automated count (number/volume) 10.1 10*3/uL 4.3-11.0 Blood erythrocytes automated count (number/volume) 5.06 10*6/uL 4.35-5.85 Venous blood hemoglobin measurement (mass/volume) 14.0 g/dL 11.5-16.0 Blood hematocrit (volume fraction) 43 % 35-52 Automated erythrocyte mean corpuscular volume 84 [ foz_us] 80-99 Automated erythrocyte mean corpuscular h emoglobin (mass per erythrocyte) 28 pg 25-34 Automated erythrocyte mean corpuscular h emoglobin concentration measurement (mass/volume) 33 g/dL 32-36 Automated erythrocyte distribution width ratio 13. 6 % 10.0- 14.5 Automated blood platelet count (count/volume) 310 10*3/uL 130-400 Automated blood platelet mean volume measurement 9.2 [foz_us] 7.4-10.4 Automated blood neutrophils/100 leukocytes 69 % 42-75 Automated blood lymphocytes/100 leukocytes 20 % 12-44 Blood monocytes/100 leukocytes 8 % 0-12 Automated blood eosinophils/100 leukocytes 3 % 0-10 Automated blood basophils/100 leukocytes 0 % 0-10 Blood neutrophils automated count (number/volume) 6.9 10*3 1.8-7.8 Blood lymphocytes automated count (number/volume) 2.0 10*3 1.0-4.0 Blood monocytes automated count (number/volume) 0. 8 10*3 0.0-1.0 Automated eosinophil count 0.3 10*3/uL 0 .0-0.3 Automated blood basophil count (count/volume) 0.0 10*3/uL 0.0-0.1 Comprehensive metabolic panel - 04/04/19 15:44 Serum or plasma sodium measurement (moles/volume) 138 mmol/L 135-145 Serum or plasma potassium measurement (moles/volume) 3.8 mmol/L 3.6-5.0 Serum or plasma chloride measurement (moles/volume) 101 mmol/L 98-107 Carbon dioxide 29 mmol/L 21-32 Serum or plasma anion gap determination (moles/volume) 8 mmol/L 5-14 Serum or plasma urea nitrogen measurement (mass/volume ) 11 mg/dL 7-18 Serum or plasma creatinine measurement (mass/volume) 0.84 mg/dL 0.60-1.30 Serum or plasma urea nitrogen/creatinine mass ratio 13 NRG Serum or plasma creatinine measurement w ith calculation of estimated glomerular filtration rate > NRG Serum or plasma glucose measurement (mass/volume) 106 mg/dL 70-105 Serum or plasma calcium measurement (mass/volume) 9.9 mg/dL 8.5-10.1 Serum or plasma total bilirubin measurement (mass/volu me) 0.5 mg/dL 0.1-1.0 Serum or plasma alkaline phosphatase noble surement (enzymatic activity/volume) 57 U/L 40-136 Serum or plasma aspartate aminotransfera se measurement (enzymatic activity/volume) 23 U/L 5-34 Serum or plasma alanine aminotransferase measurement (enzymatic activity/volume) 20 U/L 0-55 Serum or plasma protein measurement (mass/volume) 7.9 g/dL 6.4-8.2 Serum or plasma albumin measurement (mass/volume) 4.3 g/dL 3.2-4.5 CALCIUM CORRECTED 9.7 mg/dL 8.5-10.1 Serum or plasma C reactive protein measu rement (mass/volume) - 04/04/19 15:44 Serum or plasma C reactive protein measurement (mass/v olume) 0.65 mg/dL 0.00-0.50 Serum or plasma choriogonadotropin (preg bisi test) detection - 04/04/19 15:44 Serum or plasma choriogonadotropin ( test) de tection NEGATIVE NEGATIVE Complete urinalysis with reflex to cultu re - 04/04/19 15:57 Urine color determination YELLOW NRG Urine clarity determination CLEAR NR G Urine pH measurement by test strip 5 5-9 Specific gravity of urine by test strip 1.025 1.016-1.022 Urine protein assay by test strip, semi-quantitative NEGATIVE NEGATIVE Urine glucose detection by automated test strip NE GATIVE NEGATIVE Erythrocytes detection in urine sediment by light micr oscopy NEGATIVE NEGATIVE Urine ketones detection by automated test strip 3+ NEGATIVE Urine nitrite detection by test strip NEGATIVE NEGATIVE Urine total bilirubin detection by test strip NEGA TIVE NEGATIVE Urine urobilinogen measurement by automated test strip (mass/volume) NORMAL NORMAL Urine leukocyte esterase detection by dipstick 1+ NEGATIVE Automated urine sediment erythrocyte cou nt by microscopy (number/high power field) NONE NRG Automated urine sediment leukocyte count by microscopy (number/high power field) [HPF] NRG Bacteria detection in urine sediment by light microsco py FEW NRG Squamous epithelial cells detection in u rine sediment by light microscopy 10-25 NRG Crystals detection in urine sediment by light microsco py NONE NRG Casts detection in urine sediment by light microscopy NONE NRG Mucus detection in urine sediment by light microscopy SMALL NRG Complete urinalysis with reflex to culture NO NRG FERRITIN, SERUM - 06/08/19 10:34 FERRITIN 15 ng/mL 16-232 Encounters ACCT No. Visit Date/Time Discharge Status Pt. Type Provider Facility Loc./Unit Complaint [id number] 09/01/2019 13:30:00 09/01/2019 23:59: 59 CLS Outpatient CARISA KHAN APRN [facility] [id number] 06/08/2019 10:40:00 Document Registration [id number] 05/08/2018 17:45:00 Document Registration [id number] 11/30/2017 15:40:00 Document Registration [id number] 09/12/2017 09:40:00 Document Registration [id number] 07/07/2017 13:20:00 Document Registration [id number] 05/15/2017 13:10:00 Document Registration [id number] 09/21/2019 08:58:00 11:38:00 DIS Emergency ALLEGRA VILLATORO APRN [facility] [address] ER FALL;NOSE INJ [id number] 04/04/2019 15:13:00 17:13:00 DIS Outpatient ALLEGRA VILLATORO APRN [facility] [address] ER RT ABDOMEN PAIN [id number] 12/07/2018 15:54:00 17:07:00 DIS Outpatient ALLEGRA VILLATORO APRN [facility] [address] ER HEADACHE [id number] 12/06/2018 15:37:00 23:59:59 CLS Outpatient CARISA KHAN [facility] [address] RAD PAIN OF LEFT LOWER LEG [id number] 12/04/2018 02:27:00 05:43:00 DIS Outpatient BRIANNE ERICKSON, ALINE Burris [facility] [address] ER LOWER BACK PAIN AND STOMACH [id number] 11/16/2018 12:00:00 23:59:59 CLS Preadmit ANDREEA WASHINGTON DO [facility] [address] RAD L CALF PAIN [id number] 11/12/2018 21:22:00 019 23:00:00 DIS Outpatient ANDREEA WASHINGTON DO, V [facility] [address] ER PAIN IN LEFT LEG [id number] 04/13/2018 16:47:00 018 23:59:59 CLS Outpatient CHRISTOFER ERICKSON, TRELL Ruiz [facility] [address] RAD M54.5,M25.562 [id number] 02/08/2018 12:38:00 018 15:40:00 DIS Outpatient EVELINA MEYERS DO [facility] [address] ENDO BLOOD IN STOOL/REFLUX [id number] 02/01/2018 05:41:00 018 14:57:00 DIS Outpatient EVELINA MEYERS DO [facility] [address] PREOP COLONOSCOPY [id number] 01/12/2018 07:30:00 018 23:59:59 CLS Preadmit BAUDILIO NAGY DO [facility] [address] SDC ABNORMAL UTERINE BLEEDI NG [id number] 01/02/2018 06:40:00 018 13:16:00 DIS Outpatient LAN ERICKSON, EDUARDO Andrea [facility] [address] PREOP COLONOSCOPY [id number] 12/04/2017 23:23:00 018 03:02:00 DIS Emergency ANDREEA WASHINGTON DO Vi a [facility] [address] ER L SIDE PAIN/VOMITING/DI ARRHEA [id number] 11/02/2017 19:11:00 018 23:59:59 CLS Outpatient CARY ANGLIN APRN [facility] [address] RAD LEFT LEG PAIN [id number] 10/04/2017 09:43:00 018 23:59:59 CLS Outpatient CARISA KHAN [facility] [address] RAD MENORRHAGIA W/ IRREGUL AR CYCLE [id number] 09/23/2017 14:00:00 018 23:59:59 CLS Preadmit CARISA KHAN [facility] [address] RAD N92.1 MENORRHAGIA W/IRR EGULAR CYCLE [id number] 09/13/2017 17:01:00 018 20:21:00 DIS Emergency SOLO ALFARO [facility] [address] ER SEVERE ABD PAIN [id number] 09/08/2017 17:05:00 018 19:50:00 DIS Emergency ALLEGRA VILLATORO APRN [facility] [address] ER HEADACHE/NEW RX/WEAKNES S [id number] 09/04/2017 10:35:00 018 13:05:00 DIS Emergency JIGAR CUEVAS [facility] [address] ER HEADACHE [id number] 03/05/2017 13:40:00 017 15:53:00 DIS Emergency SOLO ALFARO [facility] [address] ER POSS SPIDER BITE ON RT ANKLE [id number] 02/06/2017 22:43:00 017 00:34:00 DIS Emergency ANDREEA WASHINGTON DO [facility] [address] ER L SIDE PAIN [id number] 02/05/2017 10:06:00 017 12:50:00 DIS Emergency ALLEGRA VILLATORO APRN [facility] [address] ER L SIDE BACK PAIN [id number] 12/04/2016 14:45:00 017 15:53:00 DIS Emergency ALLEGRA VILLATORO APRN [facility] [address] ER FALL, L ARM/ELBOW INJ [id number] 07/13/2016 13:25:00 016 16:49:00 DIS Emergency LEIGHA OSBORN MD [facility] [address] ER HEADACHE/FLU SYMPTOMS [id number] 06/12/2016 17:38:00 016 18:30:00 DIS Inpatient TORRES BANKS MD [facility] [address] ICU ACS ROLE OUT, 2ND PREFE RENCE CHEST PAIN [id number] 10/28/2014 23:14:00 015 00:56:00 DIS Emergency ANDREEA WASHINGTON DO [facility] [address] ER ALLERGIC RXN TO ONIONS [id number] 02/10/2014 20:42:00 014 23:10:00 DIS Emergency ENMA GARCIA MD [facility] [address] ER HEADACHE [id number] 09/19/2013 08:17:00 014 23:59:59 CLS Outpatient CARISA KHAN [facility] [address] RAD HEPATIC CYST [id number] 08/01/2013 08:54:00 Document Registration [id number] 05/21/2013 08:56:00 Document Registration [id number] 05/16/2013 15:57:00 Document Registration [id number] 01/22/2013 22:21:00 Document Registration [id number] 11/27/2012 16:36:00 Document Registration [id number] 11/22/2012 19:33:00 Document Registration [id number] 11/22/2012 11:17:00 Document Registration [id number] 11/16/2012 21:28:00 Document Registration [id number] 05/12/2012 17:46:00 Document Registration [id number] 04/06/2012 21:45:00 Document Registration [id number] 07/01/2011 11:18:00 Document Registration [id number] 08/01/2013 08:54:00 014 10:10:00 DIS Emergency [id number] 05/21/2013 08:56:00 013 23:59:59 CLS Outpatient [id number] 05/16/2013 15:57:00 013 23:59:59 CLS Outpatient [id number] 01/22/2013 22:21:00 013 01:19:00 DIS Emergency [id number] 11/27/2012 16:36:00 013 20:10:00 DIS Emergency [id number] 11/22/2012 19:33:00 013 23:33:00 DIS Emergency [id number] 11/22/2012 11:17:00 013 12:50:00 DIS Emergency [id number] 11/16/2012 21:28:00 013 23:27:00 DIS Emergency [id number] 10/30/2014 14:05:00 10/30/2014 23:59: 59 CLS Outpatient CARISA KHAN APRN [id number] 10/14/2014 08:34:00 10/14/2014 23:59: 59 CLS Outpatient CARISA KHAN APRN [id number] 09/25/2014 13:52:00 09/25/2014 23:59: 59 CLS Outpatient CARISA KHAN APRN [id number] 03/08/2014 13:20:00 03/08/2014 23:59: 59 CLS Outpatient FANY MORRISSEY APRNANDREW [place] [id number] 02/18/2014 11:27:00 02/18/2014 23:59: 59 CLS Outpatient CARISA KHAN APRN [id number] 01/03/2014 08:43:00 01/03/2014 23:59: 59 CLS Outpatient RUTH DOVER APRN [facility] [id number] 12/27/2013 12:02:00 12/27/2013 23:59: 59 CLS Outpatient FANY MORRISSEY APRNANDREW [place] [id number] 10/10/2013 08:08:00 10/10/2013 23:59: 59 CLS Outpatient CARISA KHAN APRN S [id number] 06/18/2013 14:53:00 06/18/2013 23:59: 59 CLS Outpatient CARISA KHAN APRN S [id number] 06/04/2013 12:30:00 06/04/2013 23:59: 59 CLS Outpatient RADHA MORRISSEY APRNIA R [id number] 05/16/2013 14:42:00 05/16/2013 23:59: 59 CLS Outpatient NAHOMY PETERSON DO [id number] 09/04/2012 09:39:00 09/04/2012 23:59: 59 CLS Outpatient NAHOMY PETERSON DO [id number] 08/16/2012 08:18:00 08/16/2012 23:59: 59 CLS Outpatient [id number] 05/16/2012 10:33:00 05/16/2012 23:59:5 9 CLS Outpatient CARISA KHAN APRN S [id number] 03/01/2013 13:28:00 Document Registration [id number] 01/09/2013 11:33:00 Document Registration [id number] 11/23/2012 13:01:00 Document Registration [id number] 11/07/2012 12:42:00 Document Registration
== END 2019-09-21 11:38 | disposition home or self-care (01) ==
LOC: EDUNIT# 08:57 → ER 08:58
DX: S00.83XA Contusion of other part of head, initial encounter (principal); I10 Essential (primary) hypertension; E11.9 Type 2 diabetes mellitus without complications; K21.9 Gastro-esophageal reflux disease without esophagitis; E66.01 Morbid (severe) obesity due to excess calories; Z88.5 Allergy status to narcotic agent; Z88.8 Allergy status to other drugs, medicaments and biological substances; Z79.51 Long term (current) use of inhaled steroids; Z68.43 Body mass index [BMI] 50.0-59.9, adult; Z79.84 Long term (current) use of oral hypoglycemic drugs; Z82.49 Family history of ischemic heart disease and other diseases of the circulatory system; W01.198A Fall on same level from slipping, tripping and stumbling with subsequent striking against other object, initial encounter
CPT/HCPCS: 70150

== ENCOUNTER 2019-12-14 07:56 | Outpatient (RCR) | payer MEDICAID ==
[~2019-12-14] VITALS: Ht 175.3 cm; Wt 157.3 kg
[~2019-12-14 07:56] MED LIST changes: +CETI10TA17 PO; +FERR325T18 PO
== END 2019-12-14 14:31 | disposition home or self-care (01) ==
LOC: PREOP 07:56
PROVIDERS: ATTEND Orthopaedic Surgery
DX: Z01.812 Encounter for preprocedural laboratory examination (principal); Z11.59 Encounter for screening for other viral diseases; S83.242A Other tear of medial meniscus, current injury, left knee, initial encounter
CPT/HCPCS: 87635

== ENCOUNTER 2019-12-19 07:16 | Day surgery (SDC) | payer MEDICAID ==
--- NOTE | 2019-12-08 16:54 | HISTORY AND PHYSICAL ---
DATE OF SERVICE: This will be for outpatient surgery on 12/19/2019 for left knee arthroscopy. HISTORY OF PRESENT ILLNESS: The patient is a 44-year-old female who reports progressively worsening left knee pain. Initially, she had a response to injections, but she had an injury where she slipped subsequently is having medial knee pain and injections did not provide relief. She reports pain on the medial aspect of the knee, which is worse with twisting and kneeling activities. Due to functional impairment and failure to improve with conservative measures, the patient elected to proceed with surgical intervention. REVIEW OF SYSTEMS: No chest pain, no shortness of breath, no dysuria. PAST MEDICAL HISTORY: Allergic rhinitis, anemia, asthma, diabetes mellitus, migraines, hypertension, irritable bowel syndrome, osteoarthritis, sleep apnea. PAST SURGICAL HISTORY: , cholecystectomy. FAMILY HISTORY: Ischemic heart disease, hypertension, diabetes. PRIMARY CARE PROVIDER: [facility]. MEDICATIONS: Albuterol, diltiazem, epinephrine, Flonase, iron, hydroxyzine, losartan, metformin, Pepcid, ProAir, propranolol, pantoprazole, spironolactone. ALLERGIES: CODEINE, HYDROCHLOROTHIAZIDE, CHLORTHALIDONE. SOCIAL HISTORY: The patient denies alcohol and tobacco use. RADIOGRAPHS: Reveal moderate patellofemoral and medial joint space narrowing. PHYSICAL EXAMINATION: GENERAL: The patient is well developed, well-nourished, in no acute distress. HEENT: Normocephalic, atraumatic. Pupils are equal, round and reactive to light. Oropharynx is clear. NECK: Supple, no lymphadenopathy. LUNGS: Clear to auscultation bilaterally. HEART: Regular rate and rhythm. ABDOMEN: Soft, nontender, nondistended. EXTREMITIES: Left knee demonstrates a moderate effusion. She is tender along the medial joint line. She has pain medially with Ken. There is no varus valgus laxity. Negative anterior and posterior drawer. She ambulates with an antalgic gait. Range of motion 0/2/125. 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 PLAN: Left knee arthroscopy with partial medial meniscectomy and chondroplasty. Risks, benefits, options, ramifications and recovery were discussed at length with the patient. She understands and wishes to proceed. Job ID: [id number] DocumentID: [id number] Dictated Date: 12/08/2019 15:59:11 Uniform Designer Date: 12/08/2019 16:53:23 Dictated By: BAUDILIO STALLWORTH MD
[~2019-12-19] VITALS: Ht 175.3 cm; Wt 157.3 kg
[2019-12-19] VITALS (12 sets, daily range): BP systolic 101–153; BP diastolic 63–95
--- OUTSIDE RECORDS SUMMARY | 2019-12-19 07:23 | XMS REPORT | Clinical Summary ---
Author Author [facility] Organization [facility] Address Unknown Phone Unavailable Care Team Providers Care Candles Pourer Name Role Phone Diamante Bryant AIR DRIER PCP Source Comments Some departments are not documenting in the electronic medical record. If you d o not see the information that you expected, contact Release of Information in [facility] Information Management department at [phone] for further assistan ce in locating additional records.[facility] Allergies Comments Active Allergy Reactions Severity [...] Health Maintenance Due Date Last Done Comments HIV SCREENING 01/10/1991 DTAP/TDAP VACCINES (1 - 01/10/1994 Tdap) HEPATITIS C SCREENING 01/10/1994 PHYSICAL (COMPREHENSIVE) 01/10/1994 EXAM CERVICAL CANCER SCREENING 01/10/1997 BREAST CANCER SCREENING 2016 INFLUENZA VACCINE 04/17/2020 06/07/2009 Results Not on filefrom Last 3 Months Insurance Type Payer Benefit Subscriber ID Effective Phone Address Plan / Dates Group [employer] MEDICAID AET[employer] xxxxxxxxxxx [id number] [facility] [place] [phone] 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
--- NOTE | 2019-12-19 07:25 | Progress Note-Pre Operative ---
Pre-Operative Progress Note H&P Reviewed The H&P was reviewed, patient examined and no changes noted. Date Seen by Provider: Dec 19, 2019 Time Seen by Provider: : Date H&P Reviewed: Dec 19, 2019 Time H&P Reviewed: : Pre-Operative Diagnosis: left knee medial meniscus tear and chondromalacia BAUDILIO STALLWORTH MD Dec 19, 2019 07:25
--- OUTSIDE RECORDS SUMMARY | 2019-12-19 07:25 | XMS REPORT ---
Author Author Jada KHAN [facility] Address [address] [place] [address] Care Team Providers Care Spot Remover Name Role Phone CARISA KHAN Unavailable PROBLEMS Type Condition ICD9-CM Code QBD31-AH Code Onset Dates Condition S tatus SNOMED Code Problem Tension headache G44.209 Active 398 673433 Problem DM neuro manif type II E11.49 Active 52841958 Problem Irritable bowel syndrome with diarrhea K58.0 Active 912333241 Problem Intractable migraine without aura and without st atus migrainosus G43.019 Active 878790009 Problem Menorrhagia with irregular cycle N92.1 Active 680679976 Problem Sleep apnea in adult G47.30 Active 80567409 Problem Other chronic pain G89.29 Active 8 1424692 Problem Iron deficiency anemia due to chronic blood loss D 50.0 Active 177847921 Problem Migraine with aura and without status migrainosu s, not intractable G43.109 Active 0496845 Problem Obstructive sleep apnea syndrome G47.33 Active 07132280 Problem Seasonal allergic rhinitis due to pollen J30.1 Active 58121768 Problem Localized osteoarthritis of left knee M17.12 Active 358117445 Problem HTN (hypertension) I10 Active 3 0156694 Problem Chronic tension-type headache, not intractable G44 .229 Active 337737705 Problem Primary osteoarthritis of left knee M17.12 Active [id number] Problem Hyperinsulinemia E16.1 Active 834 47360 Problem Food allergy Z91.018 Active 4608838 01 Problem Chronic venous insufficiency I87.2 A ctive 24062670 Problem Multiple allergies Z88.9 Active 6 04889948 Problem Migraine headache G43.909 Active 37 015825 ALLERGIES No Information ENCOUNTERS Encounter Location Date Diagnosis [facility] [address] [facility] [id number] [address] [place] [address] Oct, Foreign body (FB) in soft ti ssue M79.5 [facility] [address] [facility] [id number] [address] [place] [id number] 25 Sep, 2019 HTN (hypertension) I10 [place] [address] [facility] [id number] [address] [place] [address] 19 Sep, 2019 Viral URI J06.9 ; Cough prod uctive of purulent sputum R05 and Exposure to influenza Z20.828 [facility] [address] [facility] [id number] [address] [place] [id number] 14 Sep, 2019 [facility] WALK IN [facility] [address] [facility] [id number] [address] [place] [id number] 14 Sep, 2019 Flu-like symptoms R68.89 [place] [address] [address] [place] [id number] [address] [place] [id number] 12 Sep, 2019 Primary osteoarthritis of le ft knee M17.12 and Acute medial meniscus tear of left knee, subsequent encounter S83.242D [facility] WALK IN [facility] [address] [facility] [id number] [address] [place] [id number] 15 Aug, 2019 Flu-like symptoms R68.89 [facility] WALK IN [facility] [address] [facility] [id number] [address] [place] [id number] 03 Aug, 2019 Sore throat J02.9 [place] [address] [address] [place] [id number] [address] [place] [address] 24 Jul, 2019 [place] [address] [facility] [id number] [address] [place] [id number] Jul, [place] [address] [address] [facility] [id number] [address] [place] [phone] Jul, [place] [address] [place] [id number] [address] [place] [id number] 24 Jul, 2019 [place] [address] [facility] [id number] [address] [place] [address] 13 Jul, 2019 Segmental dysfunction of tho racic region M99.02 ; Segmental dysfunction of lumbar region M99.03 ; Segmental dysfunction of cervical region M99.01 and Chronic tension-type headache, not intractable G44.229 [place] [address] [address] [place] [id number] [address] [place] [address] Jul, [facility] [address] [facility] [id number] [address] [place] [address] Jun, Localized osteoarthritis of left knee M17.12 [facility] WALK IN [facility] [address] [place] [id number] [address] [place] [id number] Jun, Acute non-recurrent sinusiti s, unspecified location J01.90 [place] [address] [place] [id number] [place] [phone] Jun, [place] [address] [place] [id number] [place] [phone] Jun, Viral upper respiratory trac t infection J06.9 [place] [address] [address] Jun, [place] [address] [address] May, Prediabetes R73.03 and Iron deficiency anemia due to chronic blood loss D50.0 [place] [address] [address] May, [place] [address] [address] May, Prediabetes R73.03 ; Left an terior knee pain M25.562 ; Encounter for immunization Z23 ; Migraine headache G43.909 ; Multiple allergies Z88.9 ; Snoring R06.83 and Iron deficiency anemia due to chronic blood loss D50.0 [facility] WALK IN [facility] [address] [place] [id number] [address] [place] [id number] 16 May, 2019 Nonintractable headache, uns pecified chronicity pattern, unspecified headache type R51 and Sore throat J02.9 [place] [address] [place] [address] 15 Apr, 2019 [facility] [address] [facility] [id number] [address] [place] [address] Apr, Fever, unspecified fever cau se R50.9 and Chest congestion R09.89 [facility] [address] [facility] [id number] [address] [place] [id number] 18 Mar, 2019 Abdominal pain R10.9 [facility] [address] [place] [id number] [place] [phone] Mar, Chronic venous insufficiency I87.2 [facility] [address] [address] Feb, [facility] [address] [place] [id number] [place] [address] Feb, [facility] [address] [address] Feb, [facility] [address] [address] Feb, Seasonal allergic rhinitis d ue to pollen J30.1 ; Cervicalgia M54.2 ; Pain in right leg M79.604 ; Morbid obesity E66.01 and Obstructive sleep apnea syndrome G47.33 [facility] [address] [place] [id number] [address] [place] [address] Jan, [facility] [address] [place] [id number] [address] [place] [phone] Jan, [facility] [address] [place] [id number] [address] [place] [phone] Jan, [facility] [address] [address] Jan, Food allergy Z91.018 [facility] [address] [place] [id number] [address] [place] [address] Jan, Right ear pain H92.01 ; DM n euro manif type II E11.49 and Morbid obesity E66.01 [facility] [address] [id number] [address] [place] [address] Dec, Exercise counseling Z71.82 [facility] [address] [id number] [address] [place] [phone] Dec, [facility] [address] [id number] [address] [place] [id number] Dec, Acute midline low back pain without sciatica M54.5 ; Migraine headache G43.909 ; Obstructive sleep apnea syndrome G47.33 ; Localized edema R60.0 and Morbid obesity E66.01 [facility] WALK IN [facility] [address] [facility] [id number] [address] [place] [id number] Dec, Migraine with aura and witho ut status migrainosus, not intractable G43.109 and Morbid obesity E66.01 [place] [address] [facility] [id number] [address] [place] [phone] November, [place] [address] [id number] [address] [place] [address] November, [place] [address] [facility] [id number] [address] [place] [id number] November, [facility] [address] [facility] [id number] [address] [place] [address] November, Pain of left lower leg M79.6 62 [place] [address] [facility] [id number] [address] [place] [address] November, Pain of left lower leg M79.6 62 and Candidiasis B37.9 [facility] [address] [id number] [address] [place] [address] November, Left leg pain M79.605 [place] [address] [facility] [id number] [address] [place] [address] November, Pain in right leg M79.604 [place] [address] [facility] [id number] [place] [phone] Oct, Left leg pain M79.605 ; Left leg swelling M79.89 and Morbid obesity E66.01 [place] [address] [address] Oct, Bronchitis J40 ; HTN (hypert ension) I10 and Morbid obesity E66.01 [facility] WALK IN [facility] [address] [address] Oct, Sore throat J02.9 and Morbid obesity E66.01 [place] [address] [address] Oct, [place] [address] [address] Oct, Allergy, food Z91.018 ; Cand idiasis B37.9 and Morbid obesity E66.01 [place] [address] [address] Sep, [place] [address] [address] Sep, Intractable migraine without aura and without status migrainosus G43.019 ; Allergic reaction to food, subsequent encounter T78.1XXD ; HTN (hypertension) I10 and Morbid obesity E66.01 [place] [address] [address] Jul, [facility] WALK IN [facility] [address] [address] Jul, Rash R21 and BMI 50.0-59.9, adult Z68.43 [place] [address] [address] Jun, Hyperinsulinemia E16.1 and M enorrhagia with irregular cycle N92.1 [place] [address] [address] Jun, Primary osteoarthritis of le ft knee M17.12 [facility] WALK IN [facility] [address] [address] 12 Jun, 2018 Sore throat J02.9 ; Acute na sopharyngitis J00 and BMI 50.0-59.9, adult Z68.43 [place] [address] [address] 05 Jun, 2018 Other chronic pain G89.29 ; Pain in left knee M25.562 ; Hyperinsulinemia E16.1 ; Menorrhagia with irregular cycle N92.1 and BMI 50.0- 59.9, adult Z68.43 [facility]ALK IN [place] [address] [address] Apr, BMI 50.0-59.9, adult Z68.43 ; Dysuria R30.0 and Acute UTI N39.0 [place] [address] [address] Apr, [place] [address] [address] 17 Apr, 2018 Encounter for immunization Z 23 [place] [address] [address] 27 Mar, 2018 Acute midline low back pain without sciatica M54.5 ; Acute pain of left knee M25.562 and BMI 50.0-59.9, adult Z68.43 [place] [address] [address] Mar, Intractable migraine without aura and without status migrainosus G43.019 and BMI 50.0-59.9, adult Z68.43 [place] [address] [address] 05 Mar, 2018 Bronchitis J40 ; Allergy to food Z91.018 and BMI 50.0-59.9, adult Z68.43 [facility]ALK IN [place] [address] [address] Mar, Bronchitis J40 ; Wheezing on both sides of chest R06.2 and BMI 50.0-59.9, adult Z68.43 [place] [address] [address] Feb, Pain in right leg M79.604 [place] [address] [place] [id number] [address] [place] [address] Jan, Pneumonia of left lung due t o infectious organism, unspecified part of lung J18.9 [place] [address] [place] [id number] [address] [place] [address] Dec, Pneumonia due to Mycoplasma pneumoniae, unspecified laterality, unspecified part of lung J15.7 and BMI 50.0-59.9, adult Z68.43 [place] [address] [place] [id number] [place] [address] Dec, [place] [address] [address] Dec, Bronchitis J40 and BMI 50.0- 59.9, adult Z68.43 [place] [address] [address] November, Bronchitis J40 ; LLQ pain R1 0.32 and BMI 50.0-59.9, adult Z68.43 [place] [id number] [place] [address] November, Iron deficiency anemia due t o chronic blood loss D50.0 [place] [address] [place] [id number] [address] [place] [address] November, [place] [address] [address] November, Iron deficiency anemia due t o chronic blood loss D50.0 ; DM neuro manif type II E11.49 ; Menorrhagia with irregular cycle N92.1 and BMI 50.0-59.9, adult Z68.43 [facility] [address] [place] [id number] [address] [place] [address] Oct, Sore throat J02.9 and Acute nasopharyngitis J00 [facility]ALK IN [facility] [address] [address] Oct, Left leg pain M79.605 and BM I 50.0-59.9, adult Z68.43 [facility]ALK IN [facility] [address] [address] Sep, Upper respiratory tract infe ction, unspecified type J06.9 and BMI 50.0-59.9, adult Z68.43 [place] [address] [address] Sep, Menorrhagia with irregular c ycle N92.1 ; Sleep apnea in adult G47.30 and BMI 50.0-59.9, adult Z68.43 [place] [address] [address] Sep, [facility] [address] [address] Aug, [facility] [address] [address] Aug, [facility] [address] [address] Aug, [facility] [address] [address] Aug, LLQ pain R10.32 ; Irritable bowel syndrome with diarrhea K58.0 ; Change in bowel habits R19.4 ; Essential hypertension I10 and BMI 50.0-59.9, adult Z68.43 [facility] [address] [address] Aug, [facility] [address] [address] Aug, [facility] WALK IN [facility] [address] [address] Aug, Essential hypertension I10 a nd BMI 50.0-59.9, adult Z68.43 [place] [address] [address] Aug, [place] [address] [address] Aug, [facility] WALK IN [place] [address] [address] Aug, Allergic disorder, initial e ncounter T78.40XA and BMI 50.0-59.9, adult Z68.43 [facility] IN [place] [address] [address] Jul, Other atopic dermatitis L20. 89 and BMI 50.0-59.9, adult Z68.43 [place] [address] [address] 16 Jul, 2017 Intractable migraine without aura and without status migrainosus G43.019 and BMI 50.0-59.9, adult Z68.43 [place] [address] [address] 21 Jun, 2017 DM neuro manif type II E11.4 9 ; Tension headache G44.209 ; Breast cancer screening Z12.31 and BMI 50.0-59.9, adult Z68.43 [place] [address] [address] 20 Jun, 2017 Tension headache G44.209 ; B reast cancer screening Z12.31 ; BMI 50.0-59.9, adult Z68.43 and DM neuro manif type II E11.49 [facility] [place] [address] [address] 29 Apr, 2017 Dysuria R30.0 and Acute cyst itis with hematuria N30.01 [place] [address] [address] Apr, Hyperinsulinemia E16.1 [place] [address] [address] Mar, Acute non-recurrent maxillar y sinusitis J01.00 [place] [address] [place] [id number] [place] [address] Feb, Cellulitis of unspecified pa rt of limb L03.119 ; Spider bite wound, accidental or unintentional, subsequent encounter T63.301D and BMI 50.0-59.9, adult Z68.43 [place] [address] [address] Jan, [place] [address] [address] Jan, Urinary tract infection, sit e unspecified N39.0 [place] [address] [address] Jan, Acute gastritis without hemo rrhage, unspecified gastritis type K29.00 [place] [address] [address] Dec, Pain in right leg M79.604 [place] [address] [address] Dec, Hyperinsulinemia E16.1 and P ain in right leg M79.604 [place] [address] [address] Dec, Angioedema, initial encounte r T78.3XXA [place] [address] [address] 15 Dec, 2016 Dental examination Z01.20 [place] [address] [address] 13 Dec, 2016 [place] [address] [address] Dec, Burning with urination R30.0 and Acute cystitis with hematuria N30.01 [facility] [address] [id number] [address] [place] [address] Oct, [facility] [address] [id number] [address] [place] [address] Sep, [facility] [address] [id number] [address] [place] [address] Aug, Hyperinsulinemia E16.1 [facility] [address] [id number] [address] [place] [address] Aug, [facility] [address] [facility] [id number] [address] [place] [address] Jul, [facility] [address] [facility] [id number] [address] [place] [address] Jul, Chondromalacia, left knee M9 4.262 and Acute lateral meniscus tear of left knee, initial encounter S83.282A [facility] [address] [facility] [id number] [address] [place] [address] Jul, [facility] [address] [facility] [id number] [address] [place] [address] Jun, Hyperinsulinemia E16.1 [facility] [address] [facility] [id number] [address] [place] [address] Jun, Dysuria R30.0 ; Back pain M5 4.9 ; Acute pain of left knee M25.562 and Hyperinsulinemia E16.1 [facility] [address] [id number] [address] [place] [address] Jun, Acute non-recurrent maxillar y sinusitis J01.00 [facility] [address] [facility] [id number] [address] [place] [address] Jun, Dysuria R30.0 [facility] [address] [facility] [id number] [address] [place] [address] Jun, Dysuria R30.0 [facility] [address] [id number] [address] [place] [address] Jun, [facility] [address] [facility] [id number] [address] [place] [address] May, Dysuria R30.0 and Acute cyst itis with hematuria N30.01 [facility] [address] [facility] [id number] [address] [place] [address] May, Hyperinsulinemia E16.1 [facility] [address] [id number] [address] [place] [address] May, [facility] [address] [facility] [id number] [address] [place] [address] May, Sore throat J02.9 [facility] [address] [facility] [id number] [address] [place] [address] May, [facility] [address] [facility] [id number] [address] [place] [address] Mar, Hyperinsulinemia E16.1 [facility] [address] [facility] [id number] [address] [place] [address] Jan, Hyperinsulinemia E16.1 [facility] [address] [facility] [id number] [address] [place] [address] Dec, DM neuro manif type II E11.4 9 [facility] [address] [facility] [id number] [address] [place] [address] November, Hyperinsulinemia E16.1 and H ypertension I10 [facility] [address] [facility] [id number] [address] [place] [address] Oct, [facility] [address] [facility] [id number] [address] [place] [address] Oct, Hyperinsulinemia E16.1 [facility] [address] [facility] [id number] [address] [place] [id number] Oct, Pain, unspecified R52 [facility] [address] [facility] [id number] [address] [place] [address] 14 Oct, 2015 Pain in right foot M79.671 a nd Hyperinsulinemia E16.1 [facility] [address] [id number] [address] [place] [address] 14 Oct, 2015 Hyperinsulinemia E16.1 [facility] [address] [id number] [address] [place] [address] 12 Oct, 2015 Hyperinsulinemia E16.1 [facility] [address] [id number] [address] [place] [id number] 17 Aug, 2015 Hypertension I10 and Viral i llness B34.9 [facility] [address] [id number] [address] [place] [id number] 18 May, 2015 Back pain M54.9 [facility] [address] [id number] [address] [place] [id number] 14 Oct, 2014 [facility] [address] [id number] [address] [place] [id number] Oct, [facility] [address] [id number] [address] [place] [address] 30 Sep, 2014 [facility] [address] [id number] [address] [place] [id number] 30 Sep, 2014 [facility] [address] [id number] [address] [place] [id number] Sep, [facility] [address] [id number] [address] [place] [id number] 17 Sep, 2014 [facility] [address] [id number] [address] [place] [id number] Sep, [facility] [address] [id number] [address] [place] [phone] Sep, [facility] [address] [id number] [address] [place] [phone] Sep, [facility] [address] [id number] [address] [place] [id number] Sep, [facility] [address] [id number] [address] [place] [address], [place] [phone] Sep, [address] [facility] [address] [id number] [address] [place] [address], [place] [id number] Sep, [address] [facility] [address] [id number] [address] [place] [address], [place] [id number] Sep, [address] [facility] [address] [id number] [address] [place] [address], [place] [id number] Sep, [address] [facility] [address] [id number] [address] [place] [address], [place] [id number] Mar, [facility] [address] [id number] [address] [place] [address], [place] [id number] Mar, [facility] [address] [id number] [address] [place] [address], [place] [id number] Feb, [facility] [address] [id number] [address] [place] [address], [place] [id number] Feb, [facility] [address] [id number] [address] [place] [address], [place] [address] Feb, [facility] [address] [id number] [address] [place] [address], [place] [address] Feb, [facility] [address] [id number] [address] [place] [address], [place] [address] Dec, [facility] [address] [id number] [address] [place] [address], [place] [address] Dec, [facility] [address] [id number] [address] [place] [address], [place] [address] Dec, [facility] [address] [id number] [address] [place] [address], [place] [address] Dec, [facility] [address] [id number] [address] [place] [address], [place] [address] Dec, [facility] [address] [id number] [address] [place] [address], [place] [address] Dec, [facility] [address] [id number] [address] [place] [address], [place] [address] Dec, [facility] [address] [id number] [address] [place] [address], [place] [address] Sep, [facility] [address] [id number] [address] [place] [address], [place] [address] Sep, [facility] [address] [id number] [address] [place] [address], [place] [address] Sep, [facility] [address] [id number] [address] [place] [address], [place] [address] Sep, [facility] [address] [id number] [address] [place] [address], [place] [address] Sep, [facility] [address] [id number] [address] [place] [address], [place] [address] Sep, [facility] [address] [id number] [address] [place] [address], [place] [address] Sep, [facility] [address] [id number] [address] [place] [address], [place] [address] Sep, [facility] [address] [id number] [address] [place] [address], [place] [address] Jul, [facility] [address] [id number] [address] [place] [address], [place] [address] Jul, [facility] [address] [id number] [address] [place] [address], [place] [address] Jun, [facility] [address] [id number] [address] [place] [address], [place] [address] Jun, [facility] [address] [id number] [address] [place] [address], [place] [address] May, [facility] [address] [id number] [address] [place] [address], [place] [address] May, [facility] [address] [id number] [address] [place] [address], [place] [address] May, [facility] [address] [id number] [address] [place] [address], [place] [address] May, [facility] [address] [id number] [address] [place] [address], [place] [address] May, [facility] [address] [id number] [address] [place] [address], [place] [address] May, [facility] [address] [id number] [address] [place] [address], [place] [address] May, [facility] [address] [id number] [address] [place] [address], [place] [address] Apr, [facility] [address] [id number] [address] [place] [address], [place] [address] Apr, [facility] [address] [id number] [address] [place] [address], [place] [address] Apr, [facility] [address] [id number] [address] [place] [address], [place] [address] Apr, [facility] [address] [id number] [address] [place] [address], [place] [address] Apr, [facility] [address] [id number] [address] [place] [address], [place] [address] Apr, [facility] [address] [id number] [address] [place] [address], [place] [address] Mar, [facility] [address] [id number] [address] [place] [address], [place] [address] Feb, [facility] [address] [id number] [address] [place] [address], [place] [address] Jan, [facility] [address] [id number] [address] [place] [address], [place] [address] Jan, [facility] [address] [id number] [address] [place] [address], [place] [address] Jan, [facility] [address] [id number] [address] [place] [address], [place] [address] Dec, [facility] [address] [id number] [address] [place] [address], [place] [address] November, [facility] [address] [id number] [address] [place] [address], [place] [address] November, [facility] [address] [id number] [address] [place] [address], [place] [address] November, [facility] [address] [id number] [address] [place] [address], [place] [address] November, [facility] [address] [id number] [address] [place] [address], [place] [address] Oct, [facility] [address] [id number] [address] [place] [address], [place] [address] Aug, [facility] [address] [id number] [address] [place] [address], [place] [address] Aug, [facility] [address] [id number] [address] [place] [address], [place] [address] Aug, [facility] [address] [id number] [address] [place] [address], [place] [address] Aug, [facility] [address] [id number] [address] [place] [address], [place] [address] Aug, [facility] [address] [id number] [address] [place] [address], [place] [address] Aug, [facility] [address] [id number] [address] [place] [address], [place] [address] Jul, [facility] [address] [id number] [address] [place] [address], [place] [address] May, [facility] [address] [id number] [address] [place] [address], [place] [address] May, [facility] [address] [id number] [address] [place] [address], [place] [address] May, [facility] [address] [id number] [address] [place] [address], [place] [address] May, [facility] [address] [id number] [address] [place] [address], [place] [address] May, [facility] [address] [id number] [address] [place] [address], [place] [address] May, [facility] [address] [id number] [address] [place] [address], [place] [address] May, [facility] [address] [id number] [address] [place] [address], [place] [address] Apr, [facility] [address] [id number] [address] [place] [address], [place] [address] Apr, [facility] [address] [id number] [address] [place] [address], [place] [address] Apr, [facility] [address] [id number] [address] [place] [address], [place] [address] Apr, [facility] [address] [id number] [address] [place] [address], [place] [address] Apr, [facility] [address] [id number] [address] [place] [address], [place] [address] Sep, [facility] [address] [id number] [address] [place] [address], [place] [address] 24 Aug, [address] [facility] [address] [id number] [address] [place] [address], [place] [address] 16 Aug, 2011 [facility] [address] [id number] [address] [place] [address], [place] [address] 15 Aug, [address] [facility] [address] [id number] [address] [place] [address], [place] [address] Aug, [facility] [address] [id number] [address] [place] [address], [place] [address] Aug, [facility] [address] [id number] [address] [place] [address] Jul, [facility] [address] [id number] [address] [place] [address] Jul, [facility] [address] [id number] [address] [place] [address] Jul, [facility] [address] [id number] [address] [place] [address] Jun, [facility] [address] [id number] [address] [place] [address] Jun, [facility] [address] [id number] [address] [place] [address] Jun, [facility] [address] [id number] [address] [place] [address] May, [facility] [address] [id number] [address] [place] [address] Apr, [facility] [address] [id number] [address] [place] [address] Apr, [facility] [address] [id number] [address] [place] [address] Apr, [facility] [address] [id number] [address] [place] [address] Apr, IMMUNIZATIONS No Known Immunizations SOCIAL HISTORY Never Assessed REASON FOR VISIT PLAN OF CARE VITAL SIGNS MEDICATIONS No [...]
--- OUTSIDE RECORDS SUMMARY | 2019-12-19 07:25 | XMS REPORT ---
Author Author Jada KHAN Organization 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 Name Role Phone CARISA KHAN Unavailable PROBLEMS Type Condition ICD9-CM Code HEJ59-TE Code Onset Dates Condition S tatus SNOMED Code Problem Tension headache G44.209 Active 398 046265 Problem DM neuro manif type II E11.49 Active 83209319 Problem Irritable bowel syndrome with diarrhea K58.0 Active 663377200 Problem Intractable migraine without aura and without st atus migrainosus G43.019 Active 845816598 Problem Menorrhagia with irregular cycle N92.1 Active 035001642 Problem Sleep apnea in adult G47.30 Active 93611663 Problem Other chronic pain G89.29 Active 8 9685546 Problem Iron deficiency anemia due to chronic blood loss D 50.0 Active 995479926 Problem Migraine with aura and without status migrainosu s, not intractable G43.109 Active 6832121 Problem Obstructive sleep apnea syndrome G47.33 Active 79489732 Problem Seasonal allergic rhinitis due to pollen J30.1 Active 78266293 Problem Localized osteoarthritis of left knee M17.12 Active 622974029 Problem HTN (hypertension) I10 Active 3 0039862 Problem Chronic tension-type headache, not intractable G44 .229 Active 122379067 Problem Primary osteoarthritis of left knee M17.12 Active [id number] Problem Hyperinsulinemia E16.1 Active 834 33987 Problem Food allergy Z91.018 Active 9227643 01 Problem Chronic venous insufficiency I87.2 A ctive 66423557 Problem Multiple allergies Z88.9 Active 6 27557204 Problem Migraine headache G43.909 Active 37 270377 ALLERGIES No Information ENCOUNTERS Encounter Location Date Diagnosis [facility] [address] [facility] [id number] [address] [place] [address] Sep, HTN (hypertension) I10 [facility] [address] [facility] [id number] [address] [place] [address] 19 Sep, 2019 Cough productive of purulent sputum R05 and Exposure to influenza Z20.828 [facility] [address] [facility] [id number] [address] [place] [address] 14 Sep, 2019 [facility] [address] [facility] [id number] [address] [place] [address] 14 Sep, 2019 Flu-like symptoms R68.89 [facility] [address] [facility] [id number] [address] [place] [address] 12 Sep, 2019 Primary osteoarthritis of le ft knee M17.12 and Acute medial meniscus tear of left knee, subsequent encounter S83.242D [facility] [place] [address] [facility] [id number] [address] [place] [address] 15 Aug, 2019 Flu-like symptoms R68.89 [facility] [address] [facility] [id number] [address] [place] [address] 03 Aug, 2019 Sore throat J02.9 [place] [address] [place] [id number] [address] [place] [address] 24 Jul, 2019 [place] [address] [place] [id number] [address] [place] [address] 24 Jul, 2019 [place] [address] [place] [id number] [address] [place] [address] Jul, [place] [address] [place] [id number] [address] [place] [address] 24 Jul, 2019 [place] [address] [place] [id number] [address] [place] [address] 13 Jul, 2019 Segmental dysfunction of tho racic region M99.02 ; Segmental dysfunction of lumbar region M99.03 ; Segmental dysfunction of cervical region M99.01 and Chronic tension-type headache, not intractable G44.229 [place] [address] [facility] [id number] [address] [place] [address] 07 Jul, 2019 [place] [address] [facility] [id number] [address] [place] [address] Jun, Localized osteoarthritis of left knee M17.12 [facility] [address] [facility] [id number] [address] [place] [address] Jun, Acute non-recurrent sinusiti s, unspecified location J01.90 [place] [address] [facility] [id number] [address] [place] [address] Jun, [place] [address] [place] [id number] [address] [place] [address] Jun, Viral upper respiratory trac t infection J06.9 [place] [address] [facility] [id number] [address] [place] [address] Jun, [place] [address] [place] [id number] [place] [address] May, Prediabetes R73.03 and Iron deficiency anemia due to chronic blood loss D50.0 [place] [address] [place] [id number] [address] [place] [address] May, [place] [address] [address] May, Prediabetes R73.03 ; Left an terior knee pain M25.562 ; Encounter for immunization Z23 ; Migraine headache G43.909 ; Multiple allergies Z88.9 ; Snoring R06.83 and Iron deficiency anemia due to chronic blood loss D50.0 [facility] [address] [facility] [id number] [address] [place] [address] 16 May, 2019 Nonintractable headache, uns pecified chronicity pattern, unspecified headache type R51 and Sore throat J02.9 [place] [address] [facility] [id number] [address] [place] [address] 15 Apr, 2019 [place] [address] [facility] [id number] [address] [place] [address] 14 Apr, 2019 Fever, unspecified fever cau se R50.9 and Chest congestion R09.89 [facility] [address] [facility] [id number] [address] [place] [address] Mar, Abdominal pain R10.9 [facility] [address] [facility] [id number] [address] [place] [address] Mar, Chronic venous insufficiency I87.2 [facility] [address] [place] [id number] [address] [place] [address] Feb, [facility] [address] [facility] [id number] [address] [place] [address] Feb, [facility] [address] [address] Feb, [facility] [address] [place] [id number] [place] [address] Feb, Seasonal allergic rhinitis d ue to pollen J30.1 ; Cervicalgia M54.2 ; Pain in right leg M79.604 ; Morbid obesity E66.01 and Obstructive sleep apnea syndrome G47.33 [facility] [address] [place] [address] Jan, [facility] [address] [place] [id number] [address] [place] [address] Jan, [facility] [address] [place] [id number] [address] [place] [address] Jan, [facility] [address] [place] [id number] [address] [place] [address] Jan, Food allergy Z91.018 [facility] [address] [place] [id number] [address] [place] [address] Jan, Right ear pain H92.01 ; DM n euro manif type II E11.49 and Morbid obesity E66.01 [facility] [address] [place] [id number] [address] [place] [address] Dec, Exercise counseling Z71.82 [facility] [address] [address] Dec, [facility] [address] [address] Dec, Acute midline low back pain without sciatica M54.5 ; Migraine headache G43.909 ; Obstructive sleep apnea syndrome G47.33 ; Localized edema R60.0 and Morbid obesity E66.01 [facility] [address] [address] Dec, Migraine with aura and witho ut status migrainosus, not intractable G43.109 and Morbid obesity E66.01 [place] [address] [address] November, [place] [address] [address] November, [place] [address] [address] November, [place] [address] [address] November, Pain of left lower leg M79.6 62 [place] [address] [address] November, Pain of left lower leg M79.6 62 and Candidiasis B37.9 [facility] [address] [address] November, Left leg pain M79.605 [place] [address] [address] November, Pain in right leg M79.604 [place] [address] [address] Oct, Left leg pain M79.605 ; Left leg swelling M79.89 and Morbid obesity E66.01 [place] [address] [address] Oct, Bronchitis J40 ; HTN (hypert ension) I10 and Morbid obesity E66.01 [facility] [address] [address] 16 Oct, 2018 Sore throat J02.9 and Morbid obesity E66.01 [place] [address] [address] Oct, [place] [address] [address] Oct, Allergy, food Z91.018 ; Cand idiasis B37.9 and Morbid obesity E66.01 [place] [address] [address] Sep, [place] [address] [address] Sep, Intractable migraine without aura and without status migrainosus G43.019 ; Allergic reaction to food, subsequent encounter T78.1XXD ; HTN (hypertension) I10 and Morbid obesity E66.01 [place] [address] [address] Jul, [facility] [address] [address] Jul, Rash R21 and BMI 50.0-59.9, adult Z68.43 [place] [address] [address] Jun, Hyperinsulinemia E16.1 and M enorrhagia with irregular cycle N92.1 [place] [address] [address] Jun, Primary osteoarthritis of le ft knee M17.12 [facility] [address] [address] Jun, Sore throat J02.9 ; Acute na sopharyngitis J00 and BMI 50.0-59.9, adult Z68.43 [place] [address] [address] 05 Jun, 2018 Other chronic pain G89.29 ; Pain in left knee M25.562 ; Hyperinsulinemia E16.1 ; Menorrhagia with irregular cycle N92.1 and BMI 50.0- 59.9, adult Z68.43 [facility] [place] [address] [address] Apr, BMI 50.0-59.9, adult Z68.43 ; Dysuria R30.0 and Acute UTI N39.0 [place] [address] [address] Apr, [place] [address] [address] Apr, Encounter for immunization Z 23 [place] [address] [address] 27 Mar, 2018 Acute midline low back pain without sciatica M54.5 ; Acute pain of left knee M25.562 and BMI 50.0-59.9, adult Z68.43 [place] [address] [address] Mar, Intractable migraine without aura and without status migrainosus G43.019 and BMI 50.0-59.9, adult Z68.43 [place] [address] [address] 05 Mar, 2018 Bronchitis J40 ; Allergy to food Z91.018 and BMI 50.0-59.9, adult Z68.43 [facility] [place] [address] [address] Mar, Bronchitis J40 ; Wheezing on both sides of chest R06.2 and BMI 50.0-59.9, adult Z68.43 [place] [address] [address] Feb, Pain in right leg M79.604 [place] [address] [place] [id number] [address] [place] [address] Jan, Pneumonia of left lung due t o infectious organism, unspecified part of lung J18.9 [place] [address] [facility] [id number] [address] [place] [address] Dec, Pneumonia due to Mycoplasma pneumoniae, unspecified laterality, unspecified part of lung J15.7 and BMI 50.0-59.9, adult Z68.43 [place] [address] [address] Dec, [place] [address] [address] Dec, Bronchitis J40 and BMI 50.0- 59.9, adult Z68.43 [place] [address] [address] November, Bronchitis J40 ; LLQ pain R1 0.32 and BMI 50.0-59.9, adult Z68.43 [place] [address] [address] November, Iron deficiency anemia due t o chronic blood loss D50.0 [place] [address] [place] [id number] [address] November, [place] [address] [address] November, Iron deficiency anemia due t o chronic blood loss D50.0 ; DM neuro manif type II E11.49 ; Menorrhagia with irregular cycle N92.1 and BMI 50.0-59.9, adult Z68.43 [facility] [address] [place] [id number] [place] [address] Oct, Sore throat J02.9 and Acute nasopharyngitis J00 [facility] [address] [place] [id number] [place] [address] Oct, Left leg pain M79.605 and BM I 50.0-59.9, adult Z68.43 [facility] [address] [address] Sep, Upper respiratory tract infe ction, unspecified type J06.9 and BMI 50.0-59.9, adult Z68.43 [facility] [address] [address] Sep, Menorrhagia with irregular c ycle N92.1 ; Sleep apnea in adult G47.30 and BMI 50.0-59.9, adult Z68.43 [facility] [address] [address] Sep, [facility] [address] [address] Aug, [facility] [address] [address] Aug, [facility] [address] [address] Aug, [facility] [address] [address] Aug, LLQ pain R10.32 ; Irritable bowel syndrome with diarrhea K58.0 ; Change in bowel habits R19.4 ; Essential hypertension I10 and BMI 50.0-59.9, adult Z68.43 [facility] [address] [address] Aug, [facility] [address] [address] Aug, [facility] [address] [address] Aug, Essential hypertension I10 a nd BMI 50.0-59.9, adult Z68.43 [facility] [address] [address] Aug, [place] [address] [address] Aug, [facility] [place] [address] [address] Aug, Allergic disorder, initial e ncounter T78.40XA and BMI 50.0-59.9, adult Z68.43 [facility] [address] [address] Jul, Other atopic dermatitis L20. 89 and BMI 50.0-59.9, adult Z68.43 [place] [address] [address] 16 Jul, 2017 Intractable migraine without aura and without status migrainosus G43.019 and BMI 50.0-59.9, adult Z68.43 [place] [address] [address] Jun, DM neuro manif type II E11.4 9 ; Tension headache G44.209 ; Breast cancer screening Z12.31 and BMI 50.0-59.9, adult Z68.43 [place] [address] [address] 20 Jun, 2017 Tension headache G44.209 ; B reast cancer screening Z12.31 ; BMI 50.0-59.9, adult Z68.43 and DM neuro manif type II E11.49 [facility] [address] [address] Apr, Dysuria R30.0 and Acute cyst itis with hematuria N30.01 [place] [address] [address] Apr, Hyperinsulinemia E16.[address] [address] Mar, Acute non-recurrent maxillar y sinusitis J01.00 [place] [address] [place] [id number] [address] [place] [address] Feb, Cellulitis of unspecified pa rt of limb L03.119 ; Spider bite wound, accidental or unintentional, subsequent encounter T63.301D and BMI 50.0-59.9, adult Z68.43 [place] [address] [place] [address] Jan, [place] [address] [address] Jan, Urinary tract infection, sit e unspecified N39.0 [place] [address] [address] Jan, Acute gastritis without hemo rrhage, unspecified gastritis type K29.00 [place] [address] [address] Dec, Pain in right leg M79.604 [place] [address] [address] Dec, Hyperinsulinemia E16.1 and P ain in right leg M79.604 [place] [address] [place] [id number] [address] [place] [address] Dec, Angioedema, initial encounte r T78.3XXA [place] [address] [address] 15 Dec, 2016 Dental examination Z01.20 [place] [address] [place] [id number] [address] [place] [address] 13 Dec, 2016 [place] [address] [address] Dec, Burning with urination R30.0 and Acute cystitis with hematuria N30.01 [place] [address] [address] Oct, [place] [address] [id number] [address] [place] [address] Sep, [facility] [address] [facility] [id number] [address] [place] [address] Aug, Hyperinsulinemia E16.1 [facility] [address] [id number] [address] [place] [address] Aug, [facility] [address] [facility] [id number] [address] [place] [address] Jul, [facility] [address] [facility] [id number] [address] [place] [address] Jul, Chondromalacia, left knee M9 4.262 and Acute lateral meniscus tear of left knee, initial encounter S83.282A [facility] [address] [facility] [id number] [address] [place] [address] Jul, [facility] [address] [facility] [id number] [address] [place] [address] Jun, Hyperinsulinemia E16.1 [facility] [address] [facility] [id number] [address] [place] [address] Jun, Dysuria R30.0 ; Back pain M5 4.9 ; Acute pain of left knee M25.[address] [facility] [address] [facility] [id number] [address] [place] [address] Jun, Acute non-recurrent maxillar y sinusitis J01.00 [facility] [address] [facility] [id number] [address] [place] [address] Jun, Dysuria R30.0 [facility] [address] [facility] [id number] [address] [place] [address] Jun, Dysuria R30.0 [facility] [address] [facility] [id number] [address] [place] [address] Jun, [facility] [address] [facility] [id number] [address] [place] [address] May, Dysuria R30.0 and Acute cyst itis with hematuria N30.01 [facility] [address] [facility] [id number] [address] [place] [address] May, Hyperinsulinemia E16.1 [facility] [address] [facility] [id number] [address] [place] [address] May, [facility] [address] [facility] [id number] [address] [place] [address] May, Sore throat J02.9 [facility] [address] [facility] [id number] [address] [place] [address] May, [facility] [address] [facility] [id number] [address] [place] [address] Mar, Hyperinsulinemia E16.1 [facility] [address] [place] [id number] [address] [place] [address] Jan, Hyperinsulinemia E16.1 [facility] [address] [facility] [id number] [address] [place] [address] Dec, DM neuro manif type II E11.[address] [facility] [address] [facility] [id number] [address] [place] [address] November, Hyperinsulinemia E16.[address] I10 [facility] [address] [facility] [id number] [address] [place] [address] Oct, [facility] [address] [facility] [id number] [address] [place] [address] Oct, Hyperinsulinemia E16.1 [facility] [address] [facility] [id number] [address] [place] [address] Oct, Pain, unspecified R52 [facility] [address] [facility] [id number] [address] [place] [address] Oct, Pain in right foot M79.671 a nd Hyperinsulinemia E16.1 [facility] [address] [facility] [id number] [address] [place] [address] Oct, Hyperinsulinemia E16.1 [facility] [address] [id number] [address] [place] [address], [place] [address] 12 Oct, [address] [facility] [address] [id number] [address] [place] [address], [place] [address] 17 Aug, 2015 Hypertension I10 and Viral i llness B34.9 [facility] [address] [id number] [address] [place] [address], [place] [address] 18 May, [address] [facility] [address] [id number] [address] [place] [address], [place] [address] [address], 2014 [facility] [address] [id number] [address] [place] [address], [place] [address] Oct, [facility] [address] [id number] [address] [place] [address], [place] [address] 30 Sep, 2014 [facility] [address] [id number] [address] [place] [address], [place] [address] 30 Sep, 2014 [facility] [address] [id number] [address] [place] [address], [place] [address] Sep, [facility] [address] [id number] [address] [place] [address], [place] [address] Sep, [facility] [address] [id number] [address] [place] [address], [place] [address] Sep, [facility] [address] [id number] [address] [place] [address], [place] [address] Sep, [facility] [address] [id number] [address] [place] [address] Sep, [facility] [address] [id number] [address] [place] [address], [place] [address] Sep, [facility] [address] [id number] [address] [place] [address], [place] [address] Sep, [facility] [address] [id number] [address] [place] [address] Sep, [facility] [address] [id number] [facility] [place] [address] Sep, [facility] [address] [id number] [facility] [place] [address] Sep, [facility] [address] [id number] [address] [place] [address], [place] [address] Mar, [facility] [address] [id number] [address] [place] [address], [place] [address] Mar, [facility] [address] [id number] [address] [place] [address], [place] [address] Feb, [facility] [address] [id number] [address] [place] [address], [place] [address] Feb, [facility] [address] [id number] [address] [place] [address], [place] [address] Feb, [facility] [address] [id number] [address] [place] [address], [place] [address] Feb, [facility] [address] [id number] [address] [place] [address], [place] [address] Dec, [facility] [address] [id number] [address] [place] [address], [place] [address] Dec, [facility] [address] [id number] [address] [place] [address], [place] [address] Dec, [facility] [address] [id number] [address] [place] [address], [place] [address] Dec, [facility] [address] [id number] [address] [place] [address], [place] [address] Dec, [facility] [address] [id number] [address] [place] [address], [place] [address] Dec, [facility] [address] [id number] [address] [place] [address], [place] [address] Dec, [facility] [address] [id number] [address] [place] [address], [place] [address] 27 Sep, 2013 [facility] [address] [id number] [address] [place] [address], [place] [address] Sep, [facility] [address] [id number] [address] [place] [address], [place] [address] Sep, [facility] [address] [id number] [address] [place] [address], [place] [address] Sep, [facility] [address] [id number] [address] [place] [address], [place] [address] Sep, [facility] [address] [id number] [address] [place] [address], [place] [address] Sep, [facility] [address] [id number] [address] [place] [address], [place] [address] Sep, [facility] [address] [id number] [address] [place] [address], [place] [address] Sep, [facility] [address] [id number] [address] [place] [address], [place] [address] Jul, [facility] [address] [id number] [address] [place] [address], [place] [address] Jul, [facility] [address] [id number] [address] [place] [address], [place] [address] Jun, [facility] [address] [id number] [address] [place] [address], [place] [address] Jun, [facility] [address] [id number] [address] [place] [address], [place] [address] May, [facility] [address] [id number] [address] [place] [address], [place] [address] May, [facility] [address] [id number] [address] [place] [address], [place] [address] May, [facility] [address] [id number] [address] [place] [address], [place] [address] May, [facility] [address] [id number] [address] [place] [address], [place] [address] 07 May, 2013 [facility] [address] [id number] [address] [place] [address], [place] [address] May, [facility] [address] [id number] [address] [place] [address], [place] [address] May, [facility] [address] [id number] [address] [place] [address], [place] [address] Apr, [facility] [address] [id number] [address] [place] [address], [place] [address] Apr, [facility] [address] [id number] [address] [place] [address], [place] [address] Apr, [facility] [address] [id number] [address] [place] [address], [place] [address] Apr, [facility] [address] [id number] [address] [place] [address], [place] [address] Apr, [facility] [address] [id number] [address] [place] [address], [place] [address] Apr, [facility] [address] [id number] [address] [place] [address], [place] [address] Mar, [facility] [address] [id number] [address] [place] [address], [place] [address] Feb, [facility] [address] [id number] [address] [place] [address], [place] [address] Jan, [facility] [address] [id number] [address] [place] [address], [place] [address] Jan, [facility] [address] [id number] [address] [place] [address], [place] [address] Jan, [facility] [address] [id number] [address] [place] [address], [place] [address] Dec, [facility] [address] [id number] [place] [address] November, [facility] [address] [id number] [address] [place] [address], [place] [address] November, [facility] [address] [id number] [address] [place] [address], [place] [address] November, [facility] [address] [id number] [address] [place] [address], [place] [address] November, [facility] [address] [id number] [address] [place] [address], [place] [address] Oct, [facility] [address] [id number] [address] [place] [address], [place] [address] Aug, [facility] [address] [id number] [address] [place] [address], [place] [address] Aug, [facility] [address] [id number] [address] [place] [address], [place] [address] Aug, [facility] [address] [id number] [address] [place] [address], [place] [address] Aug, [facility] [address] [id number] [address] [place] [address], [place] [address] Aug, [facility] [address] [id number] [address] [place] [address], [place] [address] Aug, [facility] [address] [id number] [address] [place] [address], [place] [address] Jul, [facility] [address] [id number] [address] [place] [address], [place] [address] May, [facility] [address] [id number] [address] [place] [address], [place] [address] May, [facility] [address] [id number] [address] [place] [address], [place] [address] May, [facility] [address] [id number] [address] [place] [address], [place] [address] May, [facility] [address] [id number] [address] [place] [address], [place] [address] May, [facility] [address] [id number] [address] [place] [address], [place] [address] May, [facility] [address] [id number] [address] [place] [address], [place] [address] May, [facility] [address] [id number] [address] [place] [address], [place] [address] Apr, [facility] [address] [id number] [address] [place] [address], [place] [address] Apr, [facility] [address] [id number] [address] [place] [address], [place] [address] Apr, [facility] [address] [id number] [address] [place] [address], [place] [address] Apr, [facility] [address] [id number] [address] [place] [address], [place] [address] Apr, [facility] [address] [id number] [address] [place] [address], [place] [address] Sep, [facility] [address] [id number] [address] [place] [address], [place] [address] Aug, [facility] [address] [id number] [address] [place] [address], [place] [address] Aug, [facility] [address] [id number] [address] [place] [address] Aug, [facility] [address] [id number] [address] [place] [address], [place] [address] Aug, [facility] [address] [id number] [address] [place] [address], [place] [address] Aug, [facility] [address] [id number] [address] [place] [address], [place] [address] Jul, [facility] [address] [id number] [address] [place] [address] Jul, [facility] [address] [id number] [address] [place] [address] Jul, [facility] [address] [id number] [address] [place] [address] Jun, [facility] [address] [id number] [address] [place] [address] Jun, [facility] [address] [id number] [address] [place] [address] Jun, [facility] [address] [id number] [address] [place] [address] May, [facility] [address] [id number] [address] [place] [address] Apr, [facility] [address] [id number] [address] [place] [address] Apr, [facility] [address] [id number] [address] [place] [address] Apr, [facility] [address] [id number] [address] [place] [address] Apr, IMMUNIZATIONS No Known Immunizations SOCIAL HISTORY Never Assessed REASON FOR VISIT PLAN OF CARE VITAL SIGNS Height 69 in 2012-11-21 Weight 329.5 lbs 2012-11-21 Temperature 99.7 degrees Fahrenheit 2012-11-21 Heart Rate 78 bpm 2012-11-21 Respiratory Rate 18 2012-11-21 Blood pressure systolic 140 mmHg 2012-11-21 Blood pressure diastolic 97 mmHg 2012-11-21 MEDICATIONS No Known Medications RESULTS No Results PROCEDURES No Known procedures INSTRUCTIONS MEDICATIONS ADMINISTERED No Known Medications MEDICAL (GENERAL) HISTORY Type Description Date Medical History hypertension Medical History Sleep apnea in adult Surgical History x 3 Surgical History cholecystectomy Surgical History Chemical Stress Test, EKG, Echo 05/2016 Hospitalization History surgeries Hospitalization History UTI VC 05/2016
--- NOTE | 2019-12-19 07:26 | Progress Note-Post Operative ---
Post-Operative Progess Note Surgeon (s)/Temper Mill Operator (s) Surgeon BAUDILIO STALLWORTH MD Temper Mill Operator: Gaye Pre-Operative Diagnosis left knee medial meniscus tear and chondromalacia Post-Operative Diagnosis left knee medial meniscus tear and chondromalacia Procedure & Operative Findings Date of Procedure 12/19/19 Procedure Performed/Findings left knee arthroscopic partial medial meniscectomy and chondroplasty Anesthesia Type GETA Estimated Blood Loss Estimated blood loss (mL): minimal Specimens/Packing Specimens Removed none Packing: none BAUDILIO STALLWORTH MD Dec 19, 2019 07:26
--- OUTSIDE RECORDS SUMMARY | 2019-12-19 07:26 | XMS REPORT ---
Author Author Jada Hinton Doctor Organization [facility] Address Unknown Phone Unavailable Care Team Providers Care Calender Worker Helper Name Role Phone Migration, Doctor Unavailable Unavailable PROBLEMS Type Condition ICD9-CM Code [id number] Code Onset Dates Condition S tatus SNOMED Code Problem Tension headache G44.209 Active 398 361687 Problem DM neuro manif type II E11.49 Active 49766825 Problem Irritable bowel syndrome with diarrhea K58.0 Active 149220951 Problem Intractable migraine without aura and without st atus migrainosus G43.019 Active 526533301 Problem Menorrhagia with irregular cycle N92.1 Active 345938050 Problem Sleep apnea in adult G47.30 Active 80208177 Problem Other chronic pain G89.29 Active 8 3884867 Problem Iron deficiency anemia due to chronic blood loss D 50.0 Active 464101947 Problem Migraine with aura and without status migrainosu s, not intractable G43.109 Active 5233531 Problem Obstructive sleep apnea syndrome G47.33 Active 58418375 Problem Seasonal allergic rhinitis due to pollen J30.1 Active 11616049 Problem Localized osteoarthritis of left knee M17.12 Active 744461224 Problem HTN (hypertension) I10 Active 3 2535158 Problem Chronic tension-type headache, not intractable G44 .229 Active 350069501 Problem Primary osteoarthritis of left knee M17.12 Active 337550406828891 Problem Hyperinsulinemia E16.1 Active 834 95227 Problem Food allergy Z91.018 Active 0906501 01 Problem Chronic venous insufficiency I87.2 A ctive 88593117 Problem Multiple allergies Z88.9 Active 6 93023849 Problem Migraine headache G43.909 Active 37 303891 ALLERGIES No Information ENCOUNTERS Encounter Location Date Diagnosis [facility] [address] [facility] [id number] [address] [place] [id number] Sep, HTN (hypertension) I10 [facility] [address] [facility] [id number] [address] [place] [address] Sep, Cough productive of purulent sputum R05 and Exposure to influenza Z20.828 [facility] [address] [id number] [address] [place] [address] 14 Sep, 2019 [facility] [address] [facility] [id number] [address] [place] [id number] 14 Sep, 2019 Flu-like symptoms R68.89 [facility] [address] [facility] [id number] [address] [place] [address] 12 Sep, 2019 Primary osteoarthritis of le ft knee M17.12 and Acute medial meniscus tear of left knee, subsequent encounter S83.242D [facility] [address] [facility] [id number] [address] [place] [address] 15 Aug, 2019 Flu-like symptoms R68.89 [facility] [address] [facility] [id number] [address] [place] [phone] 03 Aug, 2019 Sore throat J02.9 [place] [id number] [facility] [id number] [address] [place] [phone] 24 Jul, 2019 [facility] [address] [facility] [id number] [address] [place] [address] Jul, [place] [address] [facility] [id number] [address] [place] [id number] 24 Jul, 2019 [facility] [address] [facility] [id number] [address] [place] [address] Jul, [place] [address] [facility] [id number] [address] [place] [address] Jul, Segmental dysfunction of tho racic region M99.02 ; Segmental dysfunction of lumbar region M99.03 ; Segmental dysfunction of cervical region M99.01 and Chronic tension-type headache, not intractable G44.229 [facility] [address] [id number] [address] [place] [address] Jul, [facility] [address] [facility] [id number] [address] [place] [address] Jun, Localized osteoarthritis of left knee M17.12 [facility] [address] [facility] [id number] [address] [place] [address] Jun, Acute non-recurrent sinusiti s, unspecified location J01.90 [facility] [address] [facility] [id number] [address] [place] [address] Jun, [place] [address] [place] [id number] [address] [place] [address] Jun, Viral upper respiratory trac t infection J06.9 [place] [address] [facility] [id number] [address] [place] [address] Jun, [place] [address] [place] [id number] [place] [address] May, Prediabetes R73.03 and Iron deficiency anemia due to chronic blood loss D50.0 [place] [address] [address] May, [place] [address] [place] [id number] [address] [place] [address] May, Prediabetes R73.03 ; Left an terior knee pain M25.562 ; Encounter for immunization Z23 ; Migraine headache G43.909 ; Multiple allergies Z88.9 ; Snoring R06.83 and Iron deficiency anemia due to chronic blood loss D50.0 [facility] [address] [place] [id number] [address] [place] [address] 16 May, 2019 Nonintractable headache, uns pecified chronicity pattern, unspecified headache type R51 and Sore throat J02.9 [place] [address] [place] [id number] [address] [place] [address] 15 Apr, 2019 [place] [address] [place] [id number] [place] [address] 14 Apr, 2019 Fever, unspecified fever cau se R50.9 and Chest congestion R09.89 [facility] [address] [place] [id number] [address] [place] [address] Mar, Abdominal pain R10.9 [facility] [address] [facility] [id number] [address] [place] [address] Mar, Chronic venous insufficiency I87.2 [facility] [address] [facility] [id number] [address] [place] [address] Feb, [facility] [address] [place] [id number] [address] [place] [address] Feb, [facility] [address] [facility] [id number] [address] [place] [address] Feb, [facility] [address] [address] Feb, Seasonal allergic rhinitis d ue to pollen J30.1 ; Cervicalgia M54.2 ; Pain in right leg M79.604 ; Morbid obesity E66.01 and Obstructive sleep apnea syndrome G47.33 [facility] [id number] [place] [address] Jan, [facility] [address] [place] [id number] [address] [place] [address] Jan, [facility] [address] [place] [id number] [address] [place] [address] Jan, [facility] [address] [place] [address] Jan, Food allergy Z91.018 [facility] [address] [place] [id number] [address] [place] [address] Jan, Right ear pain H92.01 ; DM n euro manif type II E11.49 and Morbid obesity E66.01 [facility] [address] [place] [id number] [address] [place] [address] Dec, Exercise counseling Z71.82 [facility] [address] [place] [id number] [address] [place] [address] Dec, [facility] [address] [address] Dec, Acute midline low back pain without sciatica M54.5 ; Migraine headache G43.909 ; Obstructive sleep apnea syndrome G47.33 ; Localized edema R60.0 and Morbid obesity E66.01 [facility] [address] [place] [id number] [address] [place] [address] Dec, Migraine with aura and witho ut status migrainosus, not intractable G43.109 and Morbid obesity E66.01 [place] [address] [address] November, [place] [address] [address] November, [place] [address] [address] November, [place] [address] [address] November, Pain of left lower leg M79.6 62 [place] [address] [address] November, Pain of left lower leg M79.6 62 and Candidiasis B37.9 [facility] [address] [address] November, Left leg pain M79.605 [place] [address] [address] November, Pain in right leg M79.604 [place] [address] [place] [id number] [place] [address] Oct, Left leg pain M79.605 ; Left leg swelling M79.89 and Morbid obesity E66.01 [place] [address] [place] [id number] [address] [place] [address] Oct, Bronchitis J40 ; HTN (hypert ension) I10 and Morbid obesity E66.01 [facility] [address] [address] 16 Oct, 2018 Sore throat J02.9 and Morbid obesity E66.01 [place] [address] [address] Oct, [place] [address] [address] Oct, Allergy, food Z91.018 ; Cand idiasis B37.9 and Morbid obesity E66.01 [place] [address] [address] Sep, [place] [address] [address] 04 Sep, 2018 Intractable migraine without aura and without status migrainosus G43.019 ; Allergic reaction to food, subsequent encounter T78.1XXD ; HTN (hypertension) I10 and Morbid obesity E66.01 [place] [address] [address] Jul, [facility] [place] [address] [address] 30 Jul, 2018 Rash R21 and BMI 50.0-59.9, adult Z68.43 [place] [address] [address] 28 Jun, 2018 Hyperinsulinemia E16.1 and M enorrhagia with irregular cycle N92.1 [place] [address] [address] Jun, Primary osteoarthritis of le ft knee M17.[address] [facility] [place] [address] [address] 12 Jun, 2018 Sore throat J02.9 ; Acute na sopharyngitis J00 and BMI 50.0-59.9, adult Z68.43 [place] [address] [address] Jun, Other chronic pain G89.29 ; Pain in left knee M25.562 ; Hyperinsulinemia E16.1 ; Menorrhagia with irregular cycle N92.1 and BMI 50.0- 59.9, adult Z68.43 [facility] [address] [place] [id number] [place] [address] Apr, BMI 50.0-59.9, adult Z68.43 ; Dysuria R30.0 and Acute UTI N39.0 [place] [address] [address] Apr, [place] [address] [address] 17 Apr, 2018 Encounter for immunization Z 23 [place] [address] [place] [id number] [place] [address] 27 Mar, 2018 Acute midline low back pain without sciatica M54.5 ; Acute pain of left knee M25.562 and BMI 50.0-59.9, adult Z68.43 [place] [address] [address] Mar, Intractable migraine without aura and without status migrainosus G43.019 and BMI 50.0-59.9, adult Z68.43 [place] [address] [address] 05 Mar, 2018 Bronchitis J40 ; Allergy to food Z91.018 and BMI 50.0-59.9, adult Z68.43 [facility] [address] [place] [id number] [address] [place] [address] Mar, Bronchitis J40 ; Wheezing on both sides of chest R06.2 and BMI 50.0-59.9, adult Z68.43 [place] [address] [place] [id number] [address] [place] [address] Feb, Pain in right leg M79.604 [place] [address] [place] [id number] [address] [place] [address] Jan, Pneumonia of left lung due t o infectious organism, unspecified part of lung J18.9 [place] [address] [address] Dec, Pneumonia due to Mycoplasma pneumoniae, unspecified laterality, unspecified part of lung J15.7 and BMI 50.0-59.9, adult Z68.43 [place] [address] [address] Dec, [place] [address] [address] Dec, Bronchitis J40 and BMI 50.0- 59.9, adult Z68.43 [place] [address] [address] November, Bronchitis J40 ; LLQ pain R1 0.32 and BMI 50.0-59.9, adult Z68.43 [place] [address] [address] November, Iron deficiency anemia due t o chronic blood loss D50.0 [place] [address] [address] November, [place] [address] [address] November, Iron deficiency anemia due t o chronic blood loss D50.0 ; DM neuro manif type II E11.49 ; Menorrhagia with irregular cycle N92.1 and BMI 50.0-59.9, adult Z68.43 [facility] [address] [address] Oct, Sore throat J02.9 and Acute nasopharyngitis J00 [facility] [address] [place] [id number] [place] [address] Oct, Left leg pain M79.605 and BM I 50.0-59.9, adult Z68.43 [facility] [address] [facility] [id number] [address] [place] [address] 17 Sep, 2017 Upper respiratory tract infe ction, unspecified type J06.9 and BMI 50.0-59.9, adult Z68.43 [facility] [address] [place] [id number] [address] [place] [address] 08 Sep, 2017 Menorrhagia with irregular c ycle N92.1 ; Sleep apnea in adult G47.30 and BMI 50.0-59.9, adult Z68.43 [facility] [address] [facility] [id number] [address] [place] [address] Sep, [facility] [address] [address] Aug, [facility] [address] [address] Aug, [facility] [address] [address] Aug, [facility] [address] [address] Aug, LLQ pain R10.32 ; Irritable bowel syndrome with diarrhea K58.0 ; Change in bowel habits R19.4 ; Essential hypertension I10 and BMI 50.0-59.9, adult Z68.43 [facility] [address] [address] Aug, [facility] [address] [place] [id number] [address] [place] [address] Aug, [facility] [address] [place] [id number] [place] [address] Aug, Essential hypertension I10 a nd BMI 50.0-59.9, adult Z68.43 [facility] [address] [address] Aug, [facility] [address] [address] 08 Aug, [address] [facility] [place] [address] [address] 02 Aug, 2017 Allergic disorder, initial e ncounter T78.40XA and BMI 50.0-59.9, adult Z68.[address] [facility] [place] [address] [address] Jul, Other atopic dermatitis L20. 89 and BMI 50.0-59.9, adult Z68.43 [place] [address] [address] 16 Jul, 2017 Intractable migraine without aura and without status migrainosus G43.019 and BMI 50.0-59.9, adult Z68.43 [place] [address] [address] Jun, DM neuro manif type II E11.4 9 ; Tension headache G44.209 ; Breast cancer screening Z12.31 and BMI 50.0-59.9, adult Z68.43 [place] [address] [address] 20 Jun, 2017 Tension headache G44.209 ; B reast cancer screening Z12.31 ; BMI 50.0-59.9, adult Z68.43 and DM neuro manif type II E11.[address] [facility] [place] [address] [address] Apr, Dysuria R30.0 and Acute cyst itis with hematuria N30.01 [place] [address] [address] Apr, Hyperinsulinemia E16.1 [place] [address] [address] Mar, Acute non-recurrent maxillar y sinusitis J01.00 [place] [address] [address] Feb, Cellulitis of unspecified pa rt of limb L03.119 ; Spider bite wound, accidental or unintentional, subsequent encounter T63.301D and BMI 50.0-59.9, adult Z68.43 [place] [address] [place] [id number] [address] [place] [address] Jan, [place] [address] [address] Jan, Urinary tract infection, sit e unspecified N39.0 [place] [address] [place] [id number] [place] [address] Jan, Acute gastritis without hemo rrhage, unspecified gastritis type K29.00 [place] [address] [place] [id number] [place] [address] Dec, Pain in right leg M79.604 [place] [address] [address] Dec, Hyperinsulinemia E16.1 and P ain in right leg M79.604 [place] [address] [address] Dec, Angioedema, initial encounte r T78.3XXA [place] [address] [place] [id number] [address] [place] [address] Dec, Dental examination Z01.20 [place] [address] [place] [id number] [address] [place] [address] 13 Dec, 2016 [place] [address] [place] [address] Dec, Burning with urination R30.0 and Acute cystitis with hematuria N30.01 [place] [address] [place] [id number] [address] [place] [address] Oct, [place] [address] [address] Sep, [facility] [address] [facility] [id number] [address] [place] [address] Aug, Hyperinsulinemia E16.1 [facility] [address] [facility] [id number] [address] [place] [address] Aug, [facility] [address] [place] [id number] [place] [address] Jul, [facility] [address] [address] Jul, Chondromalacia, left knee M9 4.262 and Acute lateral meniscus tear of left knee, initial encounter S83.282A [facility] [address] [address] Jul, [facility] [address] [address] Jun, Hyperinsulinemia E16.1 [facility] [address] [address] Jun, Dysuria R30.0 ; Back pain M5 4.9 ; Acute pain of left knee M25.562 and Hyperinsulinemia E16.1 [facility] [address] [place] [id number] [address] [place] [address] Jun, Acute non-recurrent maxillar y sinusitis J01.00 [place] [address] [address] Jun, Dysuria R30.0 [facility] [address] [address] Jun, Dysuria R30.0 [facility] [address] [address] Jun, [facility] [address] [address] May, Dysuria R30.0 and Acute cyst itis with hematuria N30.01 [facility] [address] [place] [address] [place] [address] May, Hyperinsulinemia E16.1 [facility] [address] [id number] [address] [place] [address] May, [facility] [address] [facility] [id number] [address] [place] [address] May, Sore throat J02.9 [facility] [address] [facility] [id number] [address] [place] [address] May, [facility] [address] [facility] [id number] [address] [place] [address] Mar, Hyperinsulinemia E16.1 [facility] [address] [facility] [id number] [address] [place] [address] Jan, Hyperinsulinemia E16.1 [facility] [address] [facility] [id number] [address] [place] [address] Dec, DM neuro manif type II E11.4 9 [facility] [address] [facility] [id number] [address] [place] [address] November, Hyperinsulinemia E16.1 and H ypertension I10 [facility] [address] [facility] [id number] [address] [place] [address] Oct, [facility] [address] [facility] [id number] [address] [place] [address] Oct, Hyperinsulinemia E16.1 [facility] [address] [facility] [id number] [address] [place] [address] Oct, Pain, unspecified R52 [facility] [address] [facility] [id number] [address] [place] [address] 14 Oct, 2015 Pain in right foot M79.671 a nd Hyperinsulinemia E16.1 [facility] [address] [facility] [id number] [address] [place] [address] 14 Oct, 2015 Hyperinsulinemia E16.1 [facility] [address] [facility] [id number] [address] [place] [address] Oct, Hyperinsulinemia E16.1 [facility] [place] [address] [id number] [address] [place] [address], [place] [address] 17 Aug, 2015 Hypertension I10 and Viral i llness B34.9 [facility] [place] [address] [id number] [address] [place] [address], [place] [address] 18 May, 2015 Back pain M54.9 [facility] [place] [address] [id number] [address] [place] [address], [place] [address] 14 Oct, 2014 [facility] [address] [id number] [address] [place] [address], [place] [address] 13 Oct, 2014 [facility] [place] [address] [id number] [address] [place] [address], [place] [address] 30 Sep, 2014 [facility] [place] [address] [id number] [address] [place] [id number] 30 Sep, 2014 [facility] [address] [id number] [address] [place] [address], [place] [address] Sep, [facility] [place] [address] [id number] [address] [place] [id number] Sep, [facility] [place] [address] [id number] [address] [place] [id number] Sep, [facility] [place] [address] [id number] [address] [place] [id number] Sep, [facility] [address] [id number] [address] [place] [id number] Sep, [facility] [address] [id number] [address] [place] [id number] Sep, [facility] [place] [address] [id number] [address] [place] [id number] Sep, [facility] [place] [address] [id number] [address] [place] [id number] Sep, [facility] [place] [address] [id number] [address] [place] [id number] Sep, [facility] [address] [id number] [facility] [place] [address] Sep, [facility] [address] [id number] [address] [place] [address], [place] [id number] Mar, [facility] [address] [id number] [address] [place] [address], [place] [id number] Mar, [facility] [address] [id number] [address] [place] [address], [place] [id number] Feb, [facility] [address] [id number] [address] [place] [address], [place] [id number] Feb, [facility] [address] [id number] [address] [place] [address], [place] [id number] Feb, [facility] [address] [id number] [address] [place] [address], [place] [id number] Feb, [facility] [place] [facility] [address] [id number] [address] [place] [address], [place] [address] Dec, [facility] [place] [facility] [address] [id number] [address] [place] [address], [place] [address] Dec, [facility] [place] [facility] [address] [id number] [address] [place] [address], [place] [address] Dec, [facility] [place] [facility] [address] [id number] [address] [place] [address], [place] [address] Dec, [facility] [place] [facility] [address] [id number] [address] [place] [address], [place] [address] Dec, [facility] [place] [facility] [address] [id number] [address] [place] [address], [place] [address] Dec, [facility] [place] [facility] [address] [id number] [address] [place] [address], [place] [address] Dec, [facility] [place] [facility] [address] [id number] [address] [place] [address], [place] [address] Sep, [facility] [place] [facility] [address] [id number] [address] [place] [address] Sep, [facility] [address] [id number] [address] [place] [address], [place] [address] Sep, [facility] [address] [id number] [address] [place] [address], [place] [address] Sep, [facility] [address] [id number] [address] [place] [address], [place] [address] Sep, [facility] [address] [id number] [address] [place] [address], [place] [address] Sep, [facility] [address] [id number] [address] [place] [address], [place] [address] Sep, [facility] [address] [id number] [address] [place] [address], [place] [address] Sep, [facility] [address] [id number] [address] [place] [address], [place] [address] Jul, [facility] [address] [id number] [address] [place] [address], [place] [address] Jul, [facility] [address] [id number] [address] [place] [address], [place] [address] Jun, [facility] [address] [id number] [address] [place] [address], [place] [address] Jun, [facility] [address] [id number] [address] [place] [address], [place] [address] May, [facility] [address] [id number] [address] [place] [address], [place] [address] May, [facility] [address] [id number] [address] [place] [address], [place] [address] May, [facility] [address] [id number] [address] [place] [address], [place] [address] May, [facility] [address] [id number] [address] [place] [address], [place] [address] May, [facility] [place] [facility] [address] [id number] [address] [place] [address], [place] [address] May, [facility] [address] [id number] [address] [place] [address], [place] [address] May, [facility] [address] [id number] [address] [place] [address], [place] [address] Apr, [facility] [address] [id number] [address] [place] [address], [place] [address] Apr, [facility] [address] [id number] [address] [place] [address], [place] [address] Apr, [facility] [address] [id number] [address] [place] [address], [place] [address] Apr, [facility] [address] [id number] [address] [place] [address], [place] [address] Apr, [facility] [address] [id number] [address] [place] [address], [place] [address] Apr, [facility] [address] [id number] [address] [place] [address], [place] [address] Mar, [facility] [address] [id number] [address] [place] [address], [place] [address] Feb, [facility] [address] [id number] [address] [place] [address], [place] [address] Jan, [facility] [address] [id number] [address] [place] [address] Jan, [facility] [address] [id number] [address] [place] [address], [place] [address] Jan, [facility] [address] [id number] [address] [place] [address], [place] [address] Dec, [facility] [address] [id number] [address] [place] [address] November, [facility] [address] [id number] [address] [place] [address] November, [facility] [address] [id number] [address] [place] [address], [place] [address] November, [facility] [address] [id number] [address] [place] [address], [place] [address] November, [facility] [address] [id number] [address] [place] [address], [place] [address] Oct, [facility] [address] [id number] [address] [place] [address], [place] [address] Aug, [facility] [address] [id number] [address] [place] [address], [place] [address] Aug, [facility] [address] [id number] [address] [place] [address], [place] [address] Aug, [facility] [address] [id number] [address] [place] [address], [place] [address] Aug, [facility] [address] [id number] [address] [place] [address], [place] [address] Aug, [facility] [address] [id number] [address] [place] [address], [place] [address] Aug, [facility] [address] [id number] [address] [place] [address], [place] [address] Jul, [facility] [address] [id number] [address] [place] [address], [place] [address] May, [facility] [address] [id number] [address] [place] [address], [place] [address] May, [facility] [address] [id number] [address] [place] [address], [place] [address] May, [facility] [address] [id number] [address] [place] [address], [place] [address] May, [facility] [address] [id number] [address] [place] [address] May, [facility] [address] [id number] [address] [place] [address], [place] [address] May, [facility] [place] [facility] [address] [id number] [address] [place] [address], [place] [address] May, [facility] [place] [facility] [address] [id number] [address] [place] [address], [place] [address] Apr, [facility] [place] [facility] [address] [id number] [address] [place] [address], [place] [address] Apr, [facility] [address] [id number] [address] [place] [address], [place] [address] Apr, [facility] [place] [facility] [address] [id number] [address] [place] [address], [place] [address] Apr, [facility] [address] [id number] [address] [place] [address], [place] [address] Apr, [facility] [place] [facility] [address] [id number] [address] [place] [address], [place] [address] Sep, [facility] [address] [id number] [address] [place] [address], [place] [address] Aug, [facility] [address] [id number] [address] [place] [address], [place] [address] Aug, [facility] [place] [facility] [address] [id number] [address] [place] [address], [place] [address] Aug, [facility] [place] [facility] [address] [id number] [address] [place] [address] Aug, [facility] [place] [facility] [address] [id number] [address] [place] [address], [place] [address] Aug, [facility] [place] [facility] [address] [id number] [address] [place] [address], [place] [address] Jul, [facility] [place] [facility] [address] [id number] [address] [place] [address], [place] [address] Jul, [facility] [place] [facility] [address] [id number] [address] [place] [address] Jul, [facility] [address] [id number] [address] [place] [address] Jun, [facility] [address] [id number] [address] [place] [address] Jun, [facility] [address] [id number] [address] [place] [address] Jun, [facility] [address] [id number] [address] [place] [address] May, [facility] [address] [id number] [address] [place] [address] Apr, [facility] [address] [id number] [address] [place] [address] Apr, [facility] [address] [id number] [address] [place] [address] Apr, [facility] [address] [id number] [address] [place] [address] Apr, IMMUNIZATIONS No Known Immunizations SOCIAL HISTORY Never Assessed REASON FOR VISIT PLAN OF CARE VITAL SIGNS Height 69 in 2012-08-16 Weight 329.1 lbs 2012-08-16 Temperature 97.6 degrees Fahrenheit 2012-08-16 Heart Rate 86 bpm 2012-08-16 Respiratory Rate 20 2012-08-16 Blood pressure systolic 146 mmHg 2012-08-16 Blood pressure diastolic 86 mmHg 2012-08-16 MEDICATIONS No Known Medications RESULTS No Results PROCEDURES No Known procedures INSTRUCTIONS MEDICATIONS ADMINISTERED No Known Medications MEDICAL (GENERAL) HISTORY Type Description Date Medical History hypertension Medical History Sleep apnea in adult Surgical History x 3 Surgical History cholecystectomy Surgical History Chemical Stress Test, EKG, Echo 05/2016 Hospitalization History surgeries Hospitalization History UTI VC 05/2016
--- OUTSIDE RECORDS SUMMARY | 2019-12-19 07:26 | XMS REPORT ---
Author Author Jada KHAN [facility] Address [address] [place] [address] Care Team Providers Care Courtroom Reporter Name Role Phone CARISA KHAN Unavailable PROBLEMS Type Condition ICD9-CM Code GLD29-DS Code Onset Dates Condition S tatus SNOMED Code Problem Tension headache G44.209 Active 398 471032 Problem DM neuro manif type II E11.49 Active 74216981 Problem Irritable bowel syndrome with diarrhea K58.0 Active 040202329 Problem Intractable migraine without aura and without st atus migrainosus G43.019 Active 987994011 Problem Menorrhagia with irregular cycle N92.1 Active 639550793 Problem Sleep apnea in adult G47.30 Active 62813063 Problem Other chronic pain G89.29 Active 8 8164595 Problem Iron deficiency anemia due to chronic blood loss D 50.0 Active 664226587 Problem Migraine with aura and without status migrainosu s, not intractable G43.109 Active 5856077 Problem Obstructive sleep apnea syndrome G47.33 Active 03717934 Problem Seasonal allergic rhinitis due to pollen J30.1 Active 07466619 Problem Localized osteoarthritis of left knee M17.12 Active 566042655 Problem HTN (hypertension) I10 Active 3 6275796 Problem Chronic tension-type headache, not intractable G44 .229 Active 782949970 Problem Primary osteoarthritis of left knee M17.12 Active 632131064910269 Problem Hyperinsulinemia E16.1 Active 834 68267 Problem Food allergy Z91.018 Active 2269436 01 Problem Chronic venous insufficiency I87.2 A ctive 09712523 Problem Multiple allergies Z88.9 Active 6 53396445 Problem Migraine headache G43.909 Active 37 713535 ALLERGIES No Information ENCOUNTERS Encounter Location Date Diagnosis [facility] [place] [address] [id number] [place] [address] Sep, [facility] [place] [address] [address] 19 Sep, 2019 Cough productive of purulent sputum R05 and Exposure to influenza Z20.828 [facility] [address] [address] 14 Sep, 2019 [facility] [place] [address] [address] 14 Sep, 2019 Flu-like symptoms R68.89 [place] [address] [address] 12 Sep, 2019 Primary osteoarthritis of left knee M17. 12 and Acute medial meniscus tear of left knee, subsequent encounter S83.242D [facility] [place] [address] [address] 15 Aug, 2019 Flu-like symptoms R68.89 [facility] [address] [address] 03 Aug, 2019 Sore throat J02.9 [place] [address] [address] Jul, [place] [address] [address] Jul, [place] [address] [address] Jul, [place] [address] [address] Jul, [place] [address] [address] Jul, Segmental dysfunction of thoracic region M99.02 ; Segmental dysfunction of lumbar region M99.03 ; Segmental dysfunction of cervical region M99.01 and Chronic tension-type headache, not intractable G44.229 [place] [address] [address] Jul, [place] [address] [address] Jun, Localized osteoarthritis of left knee M1 7.12 [facility] [address] [place] [id number] [place] [address] Jun, Acute non-recurrent sinusiti s, unspecified location J01.90 [place] [address] [address] Jun, [place] [address] [address] Jun, Viral upper respiratory tract infection J06.9 [place] [address] [address] Jun, [place] [address] [address] May, Prediabetes R73.03 and Iron deficiency a nemia due to chronic blood loss D50.0 [place] [address] [address] May, [place] [address] [address] May, Prediabetes R73.03 ; Left anterior knee pain M25.562 ; Encounter for immunization Z23 ; Migraine headache G43.909 ; Multiple allergies Z88.9 ; Snoring R06.83 and Iron deficiency anemia due to chronic blood loss D50.0 [facility] [address] [place] [id number] [place] [address] 16 May, 2019 Nonintractable headache, uns pecified chronicity pattern, unspecified headache type R51 and Sore throat J02.9 [place] [address] [address] Apr, [place] [address] [address] 14 Apr, 2019 Fever, unspecified fever cause R50.9 and Chest congestion R09.89 [facility] [address] [place] [id number] [place] [address] 18 Mar, 2019 Abdominal pain R10.9 [place] [address] [address] Mar, Chronic venous insufficiency I87.2 [place] [address] [address] Feb, [facility] [place] [address] [address] Feb, [place] [address] [address] Feb, [place] [address] [address] Feb, Seasonal allergic rhinitis due to pollen J30.1 ; Cervicalgia M54.2 ; Pain in right leg M79.604 ; Morbid obesity E66.01 and Obstructive sleep apnea syndrome G47.33 [place] [address] [address] Jan, [place] [address] [address] Jan, [place] [address] [address] Jan, [place] [address] [address] Jan, Food allergy Z91.018 [place] [address] [address] Jan, Right ear pain H92.01 ; DM neuro manif t ype II E11.49 and Morbid obesity E66.01 [place] [address] [address] Dec, Exercise counseling Z71.82 [place] [address] [address] Dec, [place] [address] [address] Dec, Acute midline low back pain without scia gary M54.5 ; Migraine headache G43.909 ; Obstructive sleep apnea syndrome G47.33 ; Localized edema R60.0 and Morbid obesity E66.01 [facility] [place] [address] [address] [place] [id number] [place] [address] Dec, Migraine with aura and witho ut status migrainosus, not intractable G43.109 and Morbid obesity E66.01 [place] [address] [address] November, [place] [address] [address] November, [place] [address] [address] November, [place] [address] [address] November, Pain of left lower leg M79.662 [place] [address] [address] November, Pain of left lower leg M79.662 and Isabel diasis B37.9 [facility] [place] [address] [address] November, Left leg pain M79.605 [place] [address] [address] November, Pain in right leg M79.604 [place] [address] [address] Oct, Left leg pain M79.605 ; Left leg swellin g M79.89 and Morbid obesity E66.01 [place] [address] [address] Oct, Bronchitis J40 ; HTN (hypertension) I10 and Morbid obesity E66.01 [facility] [place] [address] [address] [place] [id number] [place] [address] Oct, Sore throat J02.9 and Morbid obesity E66.01 [place] [address] [address] Oct, [address] [address] Oct, Allergy, food Z91.018 ; Candidiasis B37. 9 and Morbid obesity E66.01 [place] [address] [address] Sep, [address] [address] Sep, Intractable migraine without aura and wi thout status migrainosus G43.019 ; Allergic reaction to food, subsequent encounter T78.1XXD ; HTN (hypertension) I10 and Morbid obesity E66.01 [place] [address] [address] Jul, [facility] [address] [address] 30 Jul, 2018 Rash R21 and BMI 50.0-59.9, adult Z68.[address] [address] 28 Jun, 2018 Hyperinsulinemia E16.1 and Menorrhagia w ith irregular cycle N92.[address] [address] Jun, Primary osteoarthritis of left knee M17. 12 [facility] [address] [address] 12 Jun, 2018 Sore throat J02.9 ; Acute na sopharyngitis J00 and BMI 50.0-59.9, adult Z68.[address] [address] 05 Jun, 2018 Other chronic pain G89.29 ; Pain in left knee M25.562 ; Hyperinsulinemia E16.1 ; Menorrhagia with irregular cycle N92.1 and BMI 50.0- 59.9, adult Z68.43 [facility] [place] [address] [place] [address] Apr, BMI 50.0-59.9, adult Z68.43 ; Dysuria R30.0 and Acute UTI N39.0 [place] [address] [address] Apr, [place] [address] [address] Apr, Encounter for immunization Z23 [place] [address] [address] 27 Mar, 2018 Acute midline low back pain without scia gary M54.5 ; Acute pain of left knee M25.562 and BMI 50.0-59.9, adult Z68.43 [place] [address] [address] 24 Mar, 2018 Intractable migraine without aura and wi thout status migrainosus G43.019 and BMI 50.0-59.9, adult Z68.43 [place] [address] [address] 05 Mar, 2018 Bronchitis J40 ; Allergy to food Z91.018 and BMI 50.0-59.9, adult Z68.43 [facility] [address] [facility] [id number] [place] [address] Mar, Bronchitis J40 ; Wheezing on both sides of chest R06.2 and BMI 50.0-59.9, adult Z68.43 [place] [address] [address] Feb, Pain in right leg M79.[address] [address] Jan, Pneumonia of left lung due to infectious organism, unspecified part of lung J18.[address] [address] Dec, Pneumonia due to Mycoplasma pneumoniae, unspecified laterality, unspecified part of lung J15.7 and BMI 50.0-59.9, adult Z68.43 [place] [address] [address] Dec, [place] [address] [address] Dec, Bronchitis J40 and BMI 50.0-59.9, adult Z68.43 [place] [address] [address] November, Bronchitis J40 ; LLQ pain R10.32 and BMI 50.0-59.9, adult Z68.43 [place] [address] [address] November, Iron deficiency anemia due to chronic bl ood loss D50.0 [place] [address] [address] November, [place] [address] [address] November, Iron deficiency anemia due to chronic bl ood loss D50.0 ; DM neuro manif type II E11.49 ; Menorrhagia with irregular cycle N92.1 and BMI 50.0-59.9, adult Z68.43 [facility] [address] [address] Oct, Sore throat J02.9 and Acute nasopharyngitis J00 [facility] [address] [address] Oct, Left leg pain M79.605 and BM I 50.0-59.9, adult Z68.43 [facility] [address] [address] Sep, Upper respiratory tract infe ction, unspecified type J06.9 and BMI 50.0-59.9, adult Z68.43 [place] [address] [address] Sep, Menorrhagia with irregular cycle N92.1 ; Sleep apnea in adult G47.30 and BMI 50.0-59.9, adult Z68.43 [place] [address] [address] Sep, [place] [address] [address] Aug, [place] [address] [address] Aug, [place] [address] [address] Aug, [place] [address] [address] Aug, LLQ pain R10.32 ; Irritable bowel syndro me with diarrhea K58.0 ; Change in bowel habits R19.4 ; Essential hypertension I10 and BMI 50.0-59.9, adult Z68.43 [place] [address] [address] Aug, [place] [address] [address] Aug, [facility] [address] [address] Aug, Essential hypertension I10 a nd BMI 50.0-59.9, adult Z68.43 [place] [address] [address] Aug, [place] [address] [address] Aug, [facility] [address] [address] Aug, Allergic disorder, initial e ncounter T78.40XA and BMI 50.0-59.9, adult Z68.43 [facility] [place] [id number] [place] [address] Jul, Other atopic dermatitis L20. 89 and BMI 50.0-59.9, adult Z68.43 [place] [address] [address] Jul, Intractable migraine without aura and wi thout status migrainosus G43.019 and BMI 50.0-59.9, adult Z68.43 [place] [address] [address] Jun, DM neuro manif type II E11.49 ; Tension headache G44.209 ; Breast cancer screening Z12.31 and BMI 50.0-59.9, adult Z68.43 [place] [address] [address] Jun, Tension headache G44.209 ; Breast cancer screening Z12.31 ; BMI 50.0- 59.9, adult Z68.43 and DM neuro manif type II E11.49 [facility] [address] [facility] [id number] [address] [address] Apr, Dysuria R30.0 and Acute cyst itis with hematuria N30.01 [place] [address] [address] Apr, Hyperinsulinemia E16.[address] [address] Mar, Acute non-recurrent maxillary sinusitis J01.00 [place] [address] [address] Feb, Cellulitis of unspecified part of limb L 03.119 ; Spider bite wound, accidental or unintentional, subsequent encounter T63.301D and BMI 50.0-59.9, adult Z68.43 [place] [address] [address] Jan, [place] [address] [address] Jan, Urinary tract infection, site unspecifie d N39.0 [place] [address] [address] Jan, Acute gastritis without hemorrhage, unsp ecified gastritis type K29.00 [place] [address] [address] 30 Dec, 2016 Pain in right leg M79.604 [place] [address] [address] Dec, Hyperinsulinemia E16.1 and Pain in right leg M79.604 [place] [address] [address] Dec, Angioedema, initial encounter T78.3XXA [place] [address] [address] 15 Dec, 2016 Dental examination Z01.20 [place] [address] [address] Dec, [place] [address] [address] Dec, Burning with urination R30.0 and Acute c ystitis with hematuria N30.01 [place] [address] [address] Oct, [place] [address] [address] Sep, [place] [address] [address] Aug, Hyperinsulinemia E16.1 [place] [address] [address] Aug, [place] [address] [address] Jul, [place] [address] [address] Jul, Chondromalacia, left knee M94.262 and Ac cassie lateral meniscus tear of left knee, initial encounter S83.282A [place] [address] [address] Jul, [facility] [place] [address] [address] Jun, Hyperinsulinemia E16.1 [facility] [place] [address] [address] Jun, Dysuria R30.0 ; Back pain M54.9 ; Acute pain of left knee M25.562 and Hyperinsulinemia E16.1 [facility] [place] [address] [address] Jun, Acute non-recurrent maxillary sinusitis J01.00 [place] [address] [address] Jun, Dysuria R30.0 [place] [address] [address] Jun, Dysuria R30.0 [facility] [place] [address] [address] Jun, [facility] [place] [address] [address] May, Dysuria R30.0 and Acute cystitis with he maturia N30.01 [facility] [place] [address] [address] May, Hyperinsulinemia E16.1 [facility] [place] [address] [address] May, [place] [address] [address] May, Sore throat J02.9 [facility] [place] [address] [address] May, [facility] [place] [address] [address] 08 Mar, 2016 Hyperinsulinemia E16.1 [facility] [place] [address] [address] Jan, Hyperinsulinemia E16.1 [facility] [place] [address] [address] Dec, DM neuro manif type II E11.49 [facility] [place] [address] [address] November, Hyperinsulinemia E16.1 and Hypertension I10 [facility] [place] [address] [address] Oct, [facility] [place] [address] [address] Oct, Hyperinsulinemia E16.1 [facility] [place] [address] [address] Oct, Pain, unspecified R52 [facility] [place] [address] [address] Oct, Pain in right foot M79.671 and Hyperinsu linemia E16.1 [facility] [place] [address] [address] Oct, Hyperinsulinemia E16.1 [facility] [place] [address] [address] Oct, Hyperinsulinemia E16.1 [facility] [place] [address] [address] 17 Aug, 2015 Hypertension I10 and Viral illness B34.9 [facility] [place] [address] [address] May, Back pain M54.9 [facility] [place] [address] [address] 14 Oct, 2014 [facility] [place] [address] [address] Oct, [facility] [place] [address] [address] Sep, [facility] [place] [address] [address] Sep, [facility] [address] [facility] [id number] [place] [address] 17 Sep, 2014 [facility] [address] [facility] [id number] [place] [address] Sep, 2014 [facility] [address] [id number] [place] [address] Sep, 2014 [facility] [address] [id number] [place] [address] Sep, 2014 [facility] [address] [id number] [place] [address] Sep, 2014 [facility] [address] [id number] [place] [address] Sep, 2014 [facility] [address] [id number] [place] [address] Sep, 2014 [facility] [address] [id number] [place] [address] Sep, 2014 [facility] [address] [id number] [place] [address] Sep, 2014 [facility] [address] [id number] [place] [address] Sep, 2014 [facility] [address] [id number] [place] [address] Mar, [facility] [address] [id number] [place] [address] Mar, [facility] [address] [id number] [place] [address] Feb, [facility] [address] [facility] [id number] [place] [address] Feb, [facility] [address] [id number] [place] [address] Feb, [facility] [address] [id number] [place] [address] Feb, [facility] [address] [id number] [place] [address] Dec, [facility] [address] [facility] [id number] [place] [address] Dec, [facility] [address] [facility] [id number] [facility] [place] [address] Dec, [facility] [address] [id number] [place] [address] Dec, [facility] [address] [id number] [place] [address] Dec, [facility] [address] [facility] [id number] [facility] [place] [address] Dec, [facility] [address] [id number] [place] [address] Dec, [facility] [address] [id number] [place] [address] Sep, [facility] [address] [id number] [place] [address] Sep, [facility] [address] [id number] [place] [address] Sep, [facility] [address] [id number] [place] [address] Sep, [facility] [address] [id number] [place] [address] Sep, [facility] [address] [id number] [place] [address] Sep, [facility] [address] [id number] [place] [address] Sep, [facility] [address] [id number] [place] [address] Sep, [facility] [address] [id number] [place] [address] Jul, [facility] [address] [facility] [id number] [place] [address] Jul, [facility] [address] [id number] [place] [address] Jun, [facility] [address] [id number] [place] [address] Jun, [facility] [address] [facility] [id number] [place] [address] May, [facility] [address] [id number] [place] [address] May, [facility] [address] [id number] [place] [address] May, [facility] [address] [id number] [place] [address] May, [facility] [address] [id number] [place] [address] May, [facility] [address] [facility] [id number] [place] [address] May, [facility] [address] [id number] [place] [address] May, [facility] [address] [id number] [place] [address] Apr, [facility] [address] [id number] [place] [address] Apr, [facility] [address] [id number] [place] [address] Apr, [facility] [address] [id number] [place] [address] Apr, [facility] [address] [id number] [place] [address] Apr, [facility] [address] [id number] [place] [address] 30 Apr, 2013 [facility] [address] [id number] [place] [address] 05 Mar, 2013 [facility] [address] [id number] [place] [address] Feb, [facility] [id number] [place] [address] Jan, [facility] [address] [id number] [place] [address] Jan, [facility] [address] [id number] [place] [address] Jan, [facility] [address] [id number] [place] [address] Dec, [facility] [address] [id number] [place] [address] November, [facility] [address] [id number] [place] [address] November, [facility] [address] [id number] [place] [address] November, [facility] [address] [id number] [place] [address] November, [facility] [address] [id number] [place] [address] Oct, [facility] [facility] [address] [id number] [place] [address] Aug, [facility] [address] [id number] [place] [address] Aug, [facility] [address] [id number] [place] [address] Aug, [facility] [address] [id number] [place] [address] Aug, [facility] [address] [id number] [place] [address] Aug, [facility] [address] [id number] [place] [address] Aug, [facility] [address] [id number] [place] [address] Jul, [facility] [address] [id number] [place] [address] May, [facility] [address] [id number] [place] [address] May, [facility] [address] [id number] [place] [address] May, [facility] [address] [id number] [place] [address] May, [facility] [address] [id number] [place] [address] May, [facility] [address] [id number] [place] [address] May, [facility] [address] [id number] [place] [address] May, [facility] [address] [id number] [place] [address] Apr, [facility] [id number] [place] [address] Apr, [facility] [address] [id number] [place] [address] Apr, [facility] [id number] [place] [address] Apr, [facility] [address] [id number] [place] [address] Apr, [facility] [id number] [place] [address] Sep, [facility] [address] [id number] [place] [address] 24 Aug, 2011 [facility] [id number] [place] [address] 16 Aug, 2011 [facility] [address] [id number] [place] [address] 15 Aug, 2011 [facility] [id number] [place] [address] Aug, [facility] [address] [id number] [place] [address] Aug, [facility] [place] [address] [id number] [place] [address] Jul, [facility] [place] [address] [id number] [place] [address] Jul, [facility] [place] [address] [id number] [place] [address] Jul, [facility] [place] [address] [id number] [place] [address] Jun, [facility] [place] [address] [id number] [place] [address] Jun, [facility] [place] [address] [id number] [place] [address] Jun, [facility] [place] [address] [id number] [place] [address] May, [facility] [place] [address] [id number] [place] [address] Apr, [facility] [place] [address] [id number] [place] [address] Apr, [facility] [place] [address] [id number] [place] [address] Apr, [facility] [place] [address] [id number] [place] [address] Apr, IMMUNIZATIONS No Known Immunizations SOCIAL HISTORY Never Assessed REASON FOR VISIT PLAN OF CARE VITAL SIGNS MEDICATIONS Unknown Medications RESULTS No Results PROCEDURES Procedure Date Ordered Result Body Site ECHO EXAM OF ABDOMEN September 17, 2013 INSTRUCTIONS MEDICATIONS ADMINISTERED No Known Medications MEDICAL (GENERAL) HISTORY Type Description Date Medical History hypertension Medical History Sleep apnea in adult Surgical History x 3 Surgical History cholecystectomy Surgical History Chemical Stress Test, EKG, Echo 05/2016 Hospitalization History surgeries Hospitalization History UTI VC 05/2016
--- OUTSIDE RECORDS SUMMARY | 2019-12-19 07:26 | XMS REPORT ---
Author Author Jada Fuentes [facility] Address [address] [place] [address] Care Team Providers Care Rice Drier Name Role Phone RUTH Fuentes Unavailable PROBLEMS Type Condition ICD9-CM Code SQH43-LP Code Onset Dates Condition S tatus SNOMED Code Problem Tension headache G44.209 Active 398 783727 Problem DM neuro manif type II E11.49 Active 42350825 Problem Irritable bowel syndrome with diarrhea K58.0 Active 837254821 Problem Intractable migraine without aura and without st atus migrainosus G43.019 Active 853990509 Problem Menorrhagia with irregular cycle N92.1 Active 487178503 Problem Sleep apnea in adult G47.30 Active 37183931 Problem Other chronic pain G89.29 Active 8 6577213 Problem Iron deficiency anemia due to chronic blood loss D 50.0 Active 913466676 Problem Migraine with aura and without status migrainosu s, not intractable G43.109 Active 1466343 Problem Obstructive sleep apnea syndrome G47.33 Active 85207474 Problem Seasonal allergic rhinitis due to pollen J30.1 Active 88691856 Problem Localized osteoarthritis of left knee M17.12 Active 802754556 Problem HTN (hypertension) I10 Active 3 5024387 Problem Chronic tension-type headache, not intractable G44 .229 Active 910015589 Problem Primary osteoarthritis of left knee M17.12 Active [id number] Problem Hyperinsulinemia E16.1 Active 834 49826 Problem Food allergy Z91.018 Active 4821879 01 Problem Chronic venous insufficiency I87.2 A ctive 41805933 Problem Multiple allergies Z88.9 Active 6 78609060 Problem Migraine headache G43.909 Active 37 533966 ALLERGIES No Information ENCOUNTERS Encounter Location Date Diagnosis [facility] [address] [id number] [place] [address] Sep, [facility] [address] [address] 19 Sep, 2019 Cough productive of purulent sputum R05 and Exposure to influenza Z20.828 [facility] [address] [address] 14 Sep, 2019 [facility] [place] [address] [address] 14 Sep, 2019 Flu-like symptoms R68.89 [place] [address] [address] 12 Sep, 2019 Primary osteoarthritis of left knee M17. 12 and Acute medial meniscus tear of left knee, subsequent encounter S83.242D [facility] [place] [address] [address] 15 Aug, 2019 Flu-like symptoms R68.89 [facility] [address] [address] 03 Aug, 2019 Sore throat J02.9 [place] [address] [address] Jul, [place] [address] [address] Jul, [place] [address] [address] Jul, [place] [address] [address] Jul, [place] [address] [address] Jul, Segmental dysfunction of thoracic region M99.02 ; Segmental dysfunction of lumbar region M99.03 ; Segmental dysfunction of cervical region M99.01 and Chronic tension-type headache, not intractable G44.229 [place] [address] [address] Jul, [place] [address] [address] Jun, Localized osteoarthritis of left knee M1 7.12 [facility] [address] [place] [id number] [place] [address] Jun, Acute non-recurrent sinusiti s, unspecified location J01.90 [place] [address] [address] Jun, [place] [address] [address] Jun, Viral upper respiratory tract infection J06.9 [place] [address] [address] Jun, [place] [address] [address] May, Prediabetes R73.03 and Iron deficiency a nemia due to chronic blood loss D50.0 [place] [address] [address] May, [place] [address] [address] May, Prediabetes R73.03 ; Left anterior knee pain M25.562 ; Encounter for immunization Z23 ; Migraine headache G43.909 ; Multiple allergies Z88.9 ; Snoring R06.83 and Iron deficiency anemia due to chronic blood loss D50.0 [facility] IN [facility] [address] [place] [id number] [address] [place] [address] 16 May, 2019 Nonintractable headache, uns pecified chronicity pattern, unspecified headache type R51 and Sore throat J02.9 [place] [address] [address] Apr, [place] [address] [address] 14 Apr, 2019 Fever, unspecified fever cause R50.9 and Chest congestion R09.89 [facility] [address] [place] [id number] [place] [address] 18 Mar, 2019 Abdominal pain R10.9 [place] [address] [address] Mar, Chronic venous insufficiency I87.2 [place] [address] [address] Feb, [facility] [address] [address] Feb, [place] [address] [address] Feb, [place] [address] [address] Feb, Seasonal allergic rhinitis due to pollen J30.1 ; Cervicalgia M54.2 ; Pain in right leg M79.604 ; Morbid obesity E66.01 and Obstructive sleep apnea syndrome G47.33 [place] [address] [address] Jan, [place] [address] [address] Jan, [place] [address] [address] Jan, [place] [address] [address] Jan, Food allergy Z91.018 [place] [address] [address] Jan, Right ear pain H92.01 ; DM neuro manif t ype II E11.49 and Morbid obesity E66.01 [place] [address] [address] Dec, Exercise counseling Z71.82 [place] [address] [address] Dec, [place] [address] [address] Dec, Acute midline low back pain without scia gary M54.5 ; Migraine headache G43.909 ; Obstructive sleep apnea syndrome G47.33 ; Localized edema R60.0 and Morbid obesity E66.01 [facility] [place] [address] [place] [id number] [place] [address] Dec, Migraine with aura and witho ut status migrainosus, not intractable G43.109 and Morbid obesity E66.01 [place] [address] [address] November, [place] [address] [address] November, [place] [address] [address] November, [place] [address] [address] November, Pain of left lower leg M79.662 [place] [address] [address] November, Pain of left lower leg M79.662 and Isabel diasis B37.9 [facility] [place] [address] [address] November, Left leg pain M79.605 [place] [address] [address] November, Pain in right leg M79.604 [place] [address] [address] Oct, Left leg pain M79.605 ; Left leg swellin g M79.89 and Morbid obesity E66.01 [place] [address] [address] Oct, Bronchitis J40 ; HTN (hypertension) I10 and Morbid obesity E66.01 [facility] [place] [address] [place] [id number] [place] [address] Oct, Sore throat J02.9 and Morbid obesity E66.01 [place] [address] [address] Oct, [address] [address] Oct, Allergy, food Z91.018 ; Candidiasis B37. 9 and Morbid obesity E66.01 [place] [address] [address] Sep, [address] [address] Sep, Intractable migraine without aura and wi thout status migrainosus G43.019 ; Allergic reaction to food, subsequent encounter T78.1XXD ; HTN (hypertension) I10 and Morbid obesity E66.01 [place] [address] [address] Jul, [facility] IN [address] [address] 30 Jul, 2018 Rash R21 and BMI 50.0-59.9, adult Z68.[address] [address] 28 Jun, 2018 Hyperinsulinemia E16.1 and Menorrhagia w ith irregular cycle N92.[address] [address] Jun, Primary osteoarthritis of left knee M17. 12 [facility] IN [address] [address] 12 Jun, 2018 Sore throat J02.9 ; Acute na sopharyngitis J00 and BMI 50.0-59.9, adult Z68.[address] [address] 05 Jun, 2018 Other chronic pain G89.29 ; Pain in left knee M25.562 ; Hyperinsulinemia E16.1 ; Menorrhagia with irregular cycle N92.1 and BMI 50.0- 59.9, adult Z68.43 [facility] IN [address] [place] [address] Apr, BMI 50.0-59.9, adult Z68.43 ; Dysuria R30.0 and Acute UTI N39.0 [place] [address] [address] Apr, [place] [address] [address] Apr, Encounter for immunization Z23 [place] [address] [address] 27 Mar, 2018 Acute midline low back pain without scia gary M54.5 ; Acute pain of left knee M25.562 and BMI 50.0-59.9, adult Z68.43 [place] [address] [address] 24 Mar, 2018 Intractable migraine without aura and wi thout status migrainosus G43.019 and BMI 50.0-59.9, adult Z68.43 [place] [address] [address] 05 Mar, 2018 Bronchitis J40 ; Allergy to food Z91.018 and BMI 50.0-59.9, adult Z68.43 [facility] [address] [facility] [id number] [address] [place] [address] Mar, Bronchitis J40 ; Wheezing on both sides of chest R06.2 and BMI 50.0-59.9, adult Z68.43 [place] [address] [address] Feb, Pain in right leg M79.[address] [address] Jan, Pneumonia of left lung due to infectious organism, unspecified part of lung J18.[address] [address] Dec, Pneumonia due to Mycoplasma pneumoniae, unspecified laterality, unspecified part of lung J15.7 and BMI 50.0-59.9, adult Z68.43 [place] [address] [address] Dec, [place] [address] [address] Dec, Bronchitis J40 and BMI 50.0-59.9, adult Z68.43 [place] [address] [address] November, Bronchitis J40 ; LLQ pain R10.32 and BMI 50.0-59.9, adult Z68.43 [place] [address] [address] November, Iron deficiency anemia due to chronic bl ood loss D50.0 [place] [address] [address] November, [place] [address] [address] November, Iron deficiency anemia due to chronic bl ood loss D50.0 ; DM neuro manif type II E11.49 ; Menorrhagia with irregular cycle N92.1 and BMI 50.0-59.9, adult Z68.43 [facility] [address] [address] Oct, Sore throat J02.9 and Acute nasopharyngitis J00 [facility] [address] [address] Oct, Left leg pain M79.605 and BM I 50.0-59.9, adult Z68.43 [facility] [address] [address] Sep, Upper respiratory tract infe ction, unspecified type J06.9 and BMI 50.0-59.9, adult Z68.43 [place] [address] [address] Sep, Menorrhagia with irregular cycle N92.1 ; Sleep apnea in adult G47.30 and BMI 50.0-59.9, adult Z68.43 [place] [address] [address] Sep, [place] [address] [address] Aug, [place] [address] [address] Aug, [place] [address] [address] Aug, [place] [address] [address] Aug, LLQ pain R10.32 ; Irritable bowel syndro me with diarrhea K58.0 ; Change in bowel habits R19.4 ; Essential hypertension I10 and BMI 50.0-59.9, adult Z68.43 [place] [address] [address] Aug, [place] [address] [address] Aug, [facility] [address] [address] Aug, Essential hypertension I10 a nd BMI 50.0-59.9, adult Z68.43 [place] [address] [address] Aug, [place] [address] [address] Aug, [facility] [address] [address] Aug, Allergic disorder, initial e ncounter T78.40XA and BMI 50.0-59.9, adult Z68.43 [facility] [place] [id number] [place] [address] Jul, Other atopic dermatitis L20. 89 and BMI 50.0-59.9, adult Z68.43 [place] [address] [address] Jul, Intractable migraine without aura and wi thout status migrainosus G43.019 and BMI 50.0-59.9, adult Z68.43 [place] [address] [address] Jun, DM neuro manif type II E11.49 ; Tension headache G44.209 ; Breast cancer screening Z12.31 and BMI 50.0-59.9, adult Z68.43 [place] [address] [address] Jun, Tension headache G44.209 ; Breast cancer screening Z12.31 ; BMI 50.0- 59.9, adult Z68.43 and DM neuro manif type II E11.49 [facility] [address] [facility] [id number] [place] [address] Apr, Dysuria R30.0 and Acute cyst itis with hematuria N30.01 [place] [address] [address] Apr, Hyperinsulinemia E16.[address] [address] Mar, Acute non-recurrent maxillary sinusitis J01.00 [place] [address] [address] Feb, Cellulitis of unspecified part of limb L 03.119 ; Spider bite wound, accidental or unintentional, subsequent encounter T63.301D and BMI 50.0-59.9, adult Z68.43 [place] [address] [address] Jan, [place] [address] [address] Jan, Urinary tract infection, site unspecifie d N39.0 [place] [address] [address] Jan, Acute gastritis without hemorrhage, unsp ecified gastritis type K29.00 [place] [address] [address] 30 Dec, 2016 Pain in right leg M79.604 [place] [address] [address] Dec, Hyperinsulinemia E16.1 and Pain in right leg M79.604 [place] [address] [address] Dec, Angioedema, initial encounter T78.3XXA [place] [address] [address] 15 Dec, 2016 Dental examination Z01.20 [place] [address] [address] Dec, [place] [address] [address] Dec, Burning with urination R30.0 and Acute c ystitis with hematuria N30.01 [place] [address] [address] Oct, [place] [address] [address] Sep, [place] [address] [address] Aug, Hyperinsulinemia E16.1 [place] [address] [address] Aug, [place] [address] [address] Jul, [place] [address] [address] Jul, Chondromalacia, left knee M94.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 and Ac cassie lateral meniscus tear of left knee, initial encounter S83.282A [place] [address] [address] Jul, [facility] [address] [address] Jun, Hyperinsulinemia E16.1 [facility] [address] [address] Jun, Dysuria R30.0 ; Back pain M54.9 ; Acute pain of left knee M25.562 and Hyperinsulinemia E16.1 [facility] [address] [address] Jun, Acute non-recurrent maxillary sinusitis J01.00 [place] [address] [address] Jun, Dysuria R30.0 [place] [address] [address] Jun, Dysuria R30.0 [facility] [address] [address] Jun, [facility] [address] [address] May, Dysuria R30.0 and Acute cystitis with he maturia N30.01 [facility] [address] [address] May, Hyperinsulinemia E16.1 [facility] [address] [address] May, [place] [address] [address] May, Sore throat J02.9 [facility] [address] [address] May, [facility] [address] [address] 08 Mar, 2016 Hyperinsulinemia E16.1 [facility] [address] [address] Jan, Hyperinsulinemia E16.1 [facility] [address] [address] Dec, DM neuro manif type II E11.49 [facility] [address] [address] November, Hyperinsulinemia E16.1 and Hypertension I10 [facility] [address] [address] Oct, [facility] [address] [address] Oct, Hyperinsulinemia E16.1 [facility] [address] [address] Oct, Pain, unspecified R52 [facility] [address] [address] Oct, Pain in right foot M79.671 and Hyperinsu linemia E16.1 [facility] [address] [address] Oct, Hyperinsulinemia E16.1 [facility] [address] [address] Oct, Hyperinsulinemia E16.1 [facility] [address] [address] 17 Aug, 2015 Hypertension I10 and Viral illness B34.9 [facility] [address] [address] May, Back pain M54.9 [facility] [address] [address] 14 Oct, 2014 [facility] [address] [address] Oct, [facility] [address] [address] Sep, [facility] [address] [address] Sep, [facility] [address] [facility] [id number] [place] [address] 17 Sep, 2014 [facility] [address] [facility] [id number] [place] [address] Sep, 2014 [facility] [address] [id number] [place] [address] Sep, 2014 [facility] [address] [id number] [place] [address] Sep, 2014 [facility] [address] [id number] [place] [address] Sep, 2014 [facility] [address] [id number] [place] [address] Sep, 2014 [facility] [address] [id number] [place] [address] Sep, 2014 [facility] [address] [id number] [place] [address] Sep, 2014 [facility] [address] [id number] [place] [address] Sep, 2014 [facility] [address] [id number] [place] [address] Sep, 2014 [facility] [address] [id number] [place] [address] Mar, [facility] [address] [id number] [place] [address] Mar, [facility] [address] [id number] [place] [address] Feb, [facility] [address] [facility] [id number] [place] [address] Feb, [facility] [address] [id number] [place] [address] Feb, [facility] [address] [id number] [place] [address] Feb, [facility] [address] [id number] [place] [address] Dec, [facility] [address] [facility] [id number] [place] [address] Dec, [facility] [address] [facility] [id number] [facility] [place] [address] Dec, [facility] [address] [id number] [place] [address] Dec, [facility] [address] [id number] [place] [address] Dec, [facility] [address] [facility] [id number] [facility] [place] [address] Dec, [facility] [address] [id number] [place] [address] Dec, [facility] [address] [id number] [place] [address] Sep, [facility] [address] [id number] [place] [address] Sep, [facility] [address] [id number] [place] [address] Sep, [facility] [address] [id number] [place] [address] Sep, [facility] [address] [id number] [place] [address] Sep, [facility] [address] [id number] [place] [address] Sep, [facility] [address] [id number] [place] [address] Sep, [facility] [address] [id number] [place] [address] Sep, [facility] [address] [id number] [place] [address] Jul, [facility] [address] [id number] [place] [address] Jul, [facility] [address] [id number] [place] [address] Jun, [facility] [address] [id number] [place] [address] Jun, [facility] [address] [id number] [place] [address] May, [facility] [address] [id number] [place] [address] May, [facility] [address] [id number] [place] [address] May, [facility] [address] [id number] [place] [address] May, [facility] [address] [id number] [place] [address] May, [facility] [address] [id number] [place] [address] May, [facility] [address] [id number] [place] [address] May, [facility] [address] [id number] [place] [address] Apr, [facility] [address] [id number] [place] [address] Apr, [facility] [address] [id number] [place] [address] Apr, [facility] [address] [id number] [place] [address] Apr, [facility] [address] [id number] [place] [address] Apr, [facility] [address] [id number] [place] [address] 30 Apr, 2013 [facility] [address] [id number] [place] [address] 05 Mar, 2013 [facility] [address] [id number] [place] [address] Feb, [facility] [id number] [place] [address] Jan, [facility] [address] [id number] [place] [address] Jan, [facility] [address] [id number] [place] [address] Jan, [facility] [address] [id number] [place] [address] Dec, [facility] [address] [id number] [place] [address] November, [facility] [address] [id number] [place] [address] November, [facility] [address] [id number] [place] [address] November, [facility] [address] [id number] [place] [address] November, [facility] [address] [id number] [place] [address] Oct, [facility] [address] [id number] [place] [address] Aug, [facility] [address] [id number] [place] [address] Aug, [facility] [address] [id number] [place] [address] Aug, [facility] [address] [id number] [place] [address] Aug, [facility] [address] [id number] [place] [address] Aug, [facility] [address] [id number] [place] [address] Aug, [facility] [address] [id number] [place] [address] Jul, [facility] [address] [id number] [place] [address] May, [facility] [address] [id number] [place] [address] May, [facility] [address] [id number] [place] [address] May, [facility] [address] [id number] [place] [address] May, [facility] [address] [id number] [place] [address] May, [facility] [address] [id number] [place] [address] May, [facility] [address] [id number] [place] [address] May, [facility] [address] [id number] [place] [address] Apr, [facility] [id number] [place] [address] Apr, [facility] [address] [id number] [place] [address] Apr, [facility] [id number] [place] [address] Apr, [facility] [address] [id number] [place] [address] Apr, [facility] [address] [id number] [place] [address] Sep, [facility] [address] [id number] [place] [address] 24 Aug, 2011 [facility] [address] [id number] [place] [address] 16 Aug, 2011 [facility] [address] [id number] [place] [address] 15 Aug, 2011 [facility] [address] [id number] [place] [address] Aug, [facility] [address] [id number] [place] [address] Aug, [facility] [address] [id number] [place] [address] Jul, [facility] [address] [id number] [place] [address] Jul, [facility] [address] [id number] [place] [address] Jul, [facility] [address] [id number] [place] [address] Jun, [facility] [address] [id number] [place] [address] Jun, [facility] [address] [id number] [place] [address] Jun, [facility] [address] [id number] [place] [address] May, [facility] [address] [id number] [place] [address] Apr, [facility] [address] [id number] [place] [address] Apr, [facility] [address] [id number] [place] [address] Apr, [facility] [address] [id number] [place] [address] Apr, IMMUNIZATIONS No Known Immunizations SOCIAL HISTORY [...]
--- OUTSIDE RECORDS SUMMARY | 2019-12-19 07:27 | XMS REPORT ---
Author Author Jada KHAN [facility] Address [address] [place] [address] Care Team Providers Care Sales And Training Specialist Name Role Phone CARISA KHAN Unavailable PROBLEMS Type Condition ICD9-CM Code [id number] Code Onset Dates Condition S tatus SNOMED Code Problem Tension headache G44.209 Active 398 934658 Problem DM neuro manif type II E11.49 Active 95622167 Problem Irritable bowel syndrome with diarrhea K58.0 Active 088678742 Problem Intractable migraine without aura and without st atus migrainosus G43.019 Active 972173336 Problem Menorrhagia with irregular cycle N92.1 Active 048208123 Problem Sleep apnea in adult G47.30 Active 48374478 Problem Other chronic pain G89.29 Active 8 9879608 Problem Iron deficiency anemia due to chronic blood loss D 50.0 Active 017062292 Problem Migraine with aura and without status migrainosu s, not intractable G43.109 Active 3244335 Problem Obstructive sleep apnea syndrome G47.33 Active 29727119 Problem Seasonal allergic rhinitis due to pollen J30.1 Active 51136593 Problem Localized osteoarthritis of left knee M17.12 Active 169261195 Problem HTN (hypertension) I10 Active 3 6517254 Problem Chronic tension-type headache, not intractable G44 .229 Active 269976730 Problem Primary osteoarthritis of left knee M17.12 Active 035630408655809 Problem Hyperinsulinemia E16.1 Active 834 22384 Problem Food allergy Z91.018 Active 2172730 01 Problem Chronic venous insufficiency I87.2 A ctive 58321760 Problem Multiple allergies Z88.9 Active 6 42215067 Problem Migraine headache G43.909 Active 37 317409 ALLERGIES No Information ENCOUNTERS Encounter Location Date Diagnosis [facility] [address] [id number] [place] [address] Sep, [facility] [address] [id number] [place] [address] Sep, [facility] [address] [place] [address] 15 Aug, 2019 Flu-like symptoms R68.89 [facility] [address] [place] [id number] [place] [address] 03 Aug, [address] [facility] [address] [address] Jul, [facility] [address] [address] Jul, [facility] [address] [address] Jul, [facility] [address] [address] Jul, [place] [address] [address] Jul, Segmental dysfunction of thoracic region M99.02 ; Segmental dysfunction of lumbar region M99.03 ; Segmental dysfunction of cervical region M99.01 and Chronic tension-type headache, not intractable G44.229 [place] [address] [address] Jul, [facility] [address] [address] Jun, Localized osteoarthritis of left knee M1 7.12 [facility] [address] [place] [id number] [place] [address] Jun, Acute non-recurrent sinusiti s, unspecified location J01.90 [place] [address] [address] Jun, [place] [address] [address] Jun, Viral upper respiratory tract infection J06.9 [facility] [address] [address] Jun, [facility] [address] [address] May, Prediabetes R73.03 and Iron deficiency a nemia due to chronic blood loss D50.0 [facility] [address] [address] May, [facility] [address] [address] May, Prediabetes R73.03 ; Left anterior knee pain M25.562 ; Encounter for immunization Z23 ; Migraine headache G43.909 ; Multiple allergies Z88.9 ; Snoring R06.83 and Iron deficiency anemia due to chronic blood loss D50.0 [facility] [address] [place] [address] 16 May, 2019 Nonintractable headache, uns pecified chronicity pattern, unspecified headache type R51 and Sore throat J02.9 [facility] [address] [address] 15 Apr, 2019 [place] [address] [address] 14 Apr, 2019 Fever, unspecified fever cause R50.9 and Chest congestion R09.89 [facility] [address] [place] [id number] [place] [address] 18 Mar, 2019 Abdominal pain R10.9 [place] [address] [address] 16 Mar, 2019 Chronic venous insufficiency I87.2 [place] [address] [address] Feb, [place] [address] [address] Feb, [place] [address] [address] Feb, [place] [address] [address] Feb, Seasonal allergic rhinitis due to pollen J30.1 ; Cervicalgia M54.2 ; Pain in right leg M79.604 ; Morbid obesity E66.01 and Obstructive sleep apnea syndrome G47.33 [facility] [address] [address] Jan, [facility] [address] [address] Jan, [place] [address] [address] Jan, [place] [address] [address] Jan, Food allergy Z91.018 [place] [address] [address] Jan, Right ear pain H92.01 ; DM neuro manif t ype II E11.49 and Morbid obesity E66.01 [place] [address] [address] Dec, Exercise counseling Z71.[address] [address] Dec, [place] [address] [address] Dec, Acute midline low back pain without scia gary M54.5 ; Migraine headache G43.909 ; Obstructive sleep apnea syndrome G47.33 ; Localized edema R60.0 and Morbid obesity E66.01 [facility] [address] [facility] [id number] [address] [place] [address] Dec, Migraine with aura and witho ut status migrainosus, not intractable G43.109 and Morbid obesity E66.01 [facility] [address] [address] November, [facility] [address] [address] November, [place] [address] [address] November, [place] [address] [address] November, Pain of left lower leg M79.662 [place] [address] [address] November, Pain of left lower leg M79.662 and Isabel diasis B37.9 [facility] [address] [place] [id number] [place] [address] November, Left leg pain M79.605 [place] [address] [address] November, Pain in right leg M79.604 [place] [address] [address] Oct, Left leg pain M79.605 ; Left leg swellin g M79.89 and Morbid obesity E66.01 [place] [address] [address] Oct, Bronchitis J40 ; HTN (hypertension) I10 and Morbid obesity E66.01 [facility] [address] [facility] [id number] [address] [place] [address] Oct, Sore throat J02.9 and Morbid obesity E66.01 [place] [address] [address] Oct, [place] [address] [address] Oct, Allergy, food Z91.018 ; Candidiasis B37. 9 and Morbid obesity E66.01 [place] [address] [address] Sep, [place] [address] [address] Sep, Intractable migraine without aura and wi thout status migrainosus G43.019 ; Allergic reaction to food, subsequent encounter T78.1XXD ; HTN (hypertension) I10 and Morbid obesity E66.01 [place] [address] [address] Jul, [facility] [place] [address] [address] Jul, Rash R21 and BMI 50.0-59.9, adult Z68.43 [place] [address] [address] 28 Jun, 2018 Hyperinsulinemia E16.1 and Menorrhagia w ith irregular cycle N92.[address] [address] Jun, Primary osteoarthritis of left knee M17. 12 [facility] [place] [address] [address] 12 Jun, 2018 Sore throat J02.9 ; Acute na sopharyngitis J00 and BMI 50.0-59.9, adult Z68.43 [place] [address] [address] 05 Jun, 2018 Other chronic pain G89.29 ; Pain in left knee M25.562 ; Hyperinsulinemia E16.1 ; Menorrhagia with irregular cycle N92.1 and BMI 50.0- 59.9, adult Z68.43 [facility] [place] [address] [address] Apr, BMI 50.0-59.9, adult Z68.43 ; Dysuria R30.0 and Acute UTI N39.0 [place] [address] [address] Apr, [address] [address] Apr, Encounter for immunization Z23 [address] [address] 27 Mar, 2018 Acute midline low back pain without scia gary M54.5 ; Acute pain of left knee M25.562 and BMI 50.0-59.9, adult Z68.43 [facility] [address] [address] Mar, Intractable migraine without aura and wi thout status migrainosus G43.019 and BMI 50.0-59.9, adult Z68.43 [facility] [address] [address] 05 Mar, 2018 Bronchitis J40 ; Allergy to food Z91.018 and BMI 50.0-59.9, adult Z68.43 [facility] [address] [facility] [id number] [address] [place] [address] Mar, Bronchitis J40 ; Wheezing on both sides of chest R06.2 and BMI 50.0-59.9, adult Z68.43 [place] [address] [address] Feb, Pain in right leg M79.604 [place] [address] [address] Jan, Pneumonia of left lung due to infectious organism, unspecified part of lung J18.9 [place] [address] [address] Dec, Pneumonia due to Mycoplasma pneumoniae, unspecified laterality, unspecified part of lung J15.7 and BMI 50.0-59.9, adult Z68.43 [facility] [address] [address] Dec, [place] [address] [address] Dec, Bronchitis J40 and BMI 50.0-59.9, adult Z68.43 [facility] [address] [address] November, Bronchitis J40 ; LLQ pain R10.32 and BMI 50.0-59.9, adult Z68.43 [place] [address] [address] November, Iron deficiency anemia due to chronic bl ood loss D50.0 [place] [address] [address] November, [place] [address] [address] November, Iron deficiency anemia due to chronic bl ood loss D50.0 ; DM neuro manif type II E11.49 ; Menorrhagia with irregular cycle N92.1 and BMI 50.0-59.9, adult Z68.43 [facility] [place] [address] [address] Oct, Sore throat J02.9 and Acute nasopharyngitis J00 [facility] [address] [address] Oct, Left leg pain M79.605 and BM I 50.0-59.9, adult Z68.43 [facility] [place] [address] [address] Sep, Upper respiratory tract infe ction, unspecified type J06.9 and BMI 50.0-59.9, adult Z68.43 [place] [address] [address] Sep, Menorrhagia with irregular cycle N92.1 ; Sleep apnea in adult G47.30 and BMI 50.0-59.9, adult Z68.43 [place] [address] [address] Sep, [place] [address] [address] Aug, [place] [address] [address] Aug, [place] [address] [address] Aug, [place] [address] [address] Aug, LLQ pain R10.32 ; Irritable bowel syndro me with diarrhea K58.0 ; Change in bowel habits R19.4 ; Essential hypertension I10 and BMI 50.0-59.9, adult Z68.43 [place] [address] [address] Aug, [place] [address] [address] Aug, [facility] [place] [address] [address] Aug, Essential hypertension I10 a nd BMI 50.0-59.9, adult Z68.43 [place] [address] [address] Aug, [place] [address] [address] 08 Aug, 2017 [facility] [place] [address] [place] [id number] [place] [address] 02 Aug, 2017 Allergic disorder, initial e ncounter T78.40XA and BMI 50.0-59.9, adult Z68.43 [facility] [place] [address] [place] [id number] [place] [address] Jul, Other atopic dermatitis L20. 89 and BMI 50.0-59.9, adult Z68.43 [place] [address] [address] Jul, Intractable migraine without aura and wi thout status migrainosus G43.019 and BMI 50.0-59.9, adult Z68.43 [place] [address] [address] Jun, DM neuro manif type II E11.49 ; Tension headache G44.209 ; Breast cancer screening Z12.31 and BMI 50.0-59.9, adult Z68.43 [facility] [address] [address] Jun, Tension headache G44.209 ; Breast cancer screening Z12.31 ; BMI 50.0- 59.9, adult Z68.43 and DM neuro manif type II E11.49 [facility] [address] [facility] [id number] [address] [place] [address] Apr, Dysuria R30.0 and Acute cyst itis with hematuria N30.01 [place] [address] [address] Apr, Hyperinsulinemia E16.1 [place] [address] [address] Mar, Acute non-recurrent maxillary sinusitis J01.00 [place] [address] [address] Feb, Cellulitis of unspecified part of limb L 03.119 ; Spider bite wound, accidental or unintentional, subsequent encounter T63.301D and BMI 50.0-59.9, adult Z68.43 [place] [address] [address] Jan, [place] [address] [address] Jan, Urinary tract infection, site unspecifie d N39.0 [place] [address] [address] Jan, Acute gastritis without hemorrhage, unsp ecified gastritis type K29.00 [place] [address] [address] Dec, Pain in right leg M79.604 [place] [address] [address] Dec, Hyperinsulinemia E16.1 and Pain in right leg M79.604 [place] [address] [address] Dec, Angioedema, initial encounter T78.3XXA [place] [address] [address] 15 Dec, 2016 Dental examination Z01.20 [place] [address] [address] 13 Dec, 2016 [place] [address] [address] Dec, Burning with urination R30.0 and Acute c ystitis with hematuria N30.01 [place] [address] [address] Oct, [place] [address] [address] Sep, [place] [address] [address] Aug, Hyperinsulinemia E16.1 [place] [address] [address] Aug, [place] [address] [address] Jul, [place] [address] [address] Jul, Chondromalacia, left knee M94.262 and Ac cassie lateral meniscus tear of left knee, initial encounter S83.282A [place] [address] [address] Jul, [place] [address] [address] Jun, Hyperinsulinemia E16.1 [place] [address] [address] Jun, Dysuria R30.0 ; Back pain M54.9 ; Acute pain of left knee M25.562 and Hyperinsulinemia E16.1 [place] [address] [address] Jun, Acute non-recurrent maxillary sinusitis J01.00 [facility] [address] [address] 05 Jun, [address] [facility] [address] [address] 05 Jun, [address] [facility] [address] [address] Jun, [facility] [address] [address] May, Dysuria R30.0 and Acute cystitis with he maturia N30.01 [facility] [address] [address] May, Hyperinsulinemia E16.1 [facility] [address] [address] May, [facility] [address] [address] May, Sore throat J02.9 [facility] [address] [address] May, [facility] [address] [address] Mar, Hyperinsulinemia E16.1 [facility] [address] [address] Jan, Hyperinsulinemia E16.1 [facility] [address] [address] Dec, DM neuro manif type II E11.49 [facility] [address] [place] [address] November, Hyperinsulinemia E16.[address] [facility] [address] [address] Oct, [facility] [address] [address] 22 Apr, [address] [facility] [address] [address] [id number] [place] [address] 20 Oct, 2015 Pain, unspecified R52 [facility] [address] [place] [address] [id number] [place] [address] 14 Oct, 2015 Pain in right foot M79.671 [address] Hyperins[address] E16.1 [facility] [address] [address] 14 Oct, [address] [facility] [address] [address] 12 Oct, [address] [facility] [address] [address] 17 Aug, 2015 Hypertension I10 and Viral illness B34.9 [facility] [address] [address] May, Back pain M54.9 [facility] [address] [address] [address] Oct, 2014 [facility] [address] [address] Oct, [facility] [address] [address] 30 Sep, 2014 [facility] [address] [address] 30 Sep, 2014 [facility] [address] [address] Sep, [facility] [address] [place] [id number] [place] [address] 17 Sep, 2014 [facility] [address] [address] Sep, [facility] [address] [place] [address] [id number] [place] [address] Sep, [facility] [address] [address] Sep, [facility] [address] [facility] [id number] [place] [address] Sep, 2014 [facility] [address] [id number] [place] [address] Sep, 2014 [facility] [address] [id number] [place] [address] Sep, 2014 [facility] [address] [id number] [place] [address] Sep, 2014 [facility] [address] [id number] [place] [address] Sep, 2014 [facility] [address] [id number] [place] [address] Mar, [facility] [address] [id number] [place] [address] Mar, [facility] [address] [id number] [place] [address] Feb, [facility] [address] [id number] [place] [address] Feb, [facility] [address] [id number] [place] [address] Feb, [facility] [address] [id number] [place] [address] Feb, [facility] [address] [id number] [place] [address] Dec, [facility] [address] [id number] [place] [address] Dec, [facility] [address] [id number] [place] [address] Dec, [facility] [address] [id number] [place] [address] Dec, [facility] [address] [id number] [place] [address] Dec, [facility] [address] [id number] [place] [address] Dec, [facility] [address] [facility] [id number] [place] [address] Dec, [facility] [address] [facility] [id number] [facility] [place] [address] Sep, [facility] [address] [id number] [place] [address] Sep, [facility] [address] [id number] [place] [address] Sep, [facility] [address] [facility] [id number] [place] [address] Sep, [facility] [address] [id number] [place] [address] Sep, [facility] [address] [id number] [place] [address] Sep, [facility] [address] [id number] [place] [address] Sep, [facility] [address] [id number] [place] [address] Sep, [facility] [address] [id number] [place] [address] Jul, [facility] [address] [id number] [place] [address] Jul, [facility] [address] [id number] [place] [address] Jun, [facility] [address] [id number] [place] [address] Jun, [facility] [address] [id number] [place] [address] May, [facility] [address] [id number] [place] [address] May, [facility] [address] [id number] [place] [address] May, [facility] [address] [id number] [place] [address] May, [facility] [address] [id number] [place] [address] May, [facility] [address] [id number] [place] [address] May, [facility] [address] [id number] [place] [address] May, [facility] [address] [id number] [place] [address] Apr, [facility] [address] [id number] [place] [address] Apr, [facility] [address] [id number] [place] [address] Apr, [facility] [address] [id number] [place] [address] Apr, [facility] [address] [id number] [place] [address] Apr, [facility] [address] [id number] [place] [address] Apr, [facility] [address] [id number] [place] [address] Mar, [facility] [address] [id number] [place] [address] Feb, [facility] [address] [id number] [place] [address] Jan, [facility] [address] [id number] [place] [address] Jan, [facility] [id number] [place] [address] Jan, [facility] [address] [id number] [place] [address] Dec, [facility] [address] [id number] [place] [address] November, [facility] [address] [id number] [place] [address] November, [facility] [address] [id number] [place] [address] November, [facility] [address] [id number] [place] [address] November, [facility] [address] [id number] [place] [address] Oct, [facility] [address] [id number] [place] [address] Aug, [facility] [address] [id number] [place] [address] Aug, [facility] [address] [id number] [place] [address] Aug[facility] [id number] [place] [address] Aug, [facility] [facility] [address] [id number] [place] [address] Aug[facility] [id number] [place] [address] Aug, [facility] [address] [id number] [place] [address] Jul, [facility] [id number] [place] [address] May, [facility] [address] [id number] [place] [address] May, [facility] [address] [id number] [place] [address] May, [facility] [address] [id number] [place] [address] May, [facility] [address] [id number] [place] [address] May, [facility] [address] [id number] [place] [address] May, [facility] [address] [id number] [place] [address] May, [facility] [address] [id number] [place] [address] Apr, [facility] [address] [id number] [place] [address] Apr, [facility] [address] [id number] [place] [address] Apr, [facility] [address] [id number] [place] [address] Apr, [facility] [address] [id number] [place] [address] Apr, [facility] [address] [id number] [place] [address] Sep, [facility] [address] [id number] [place] [address] Aug, [facility] [address] [id number] [place] [address] Aug, [facility] [address] [id number] [place] [address] Aug, [facility] [address] [id number] [place] [address] Aug, [facility] [address] [id number] [place] [address] Aug, [facility] [address] [id number] [place] [address] Jul, [facility] [address] [id number] [place] [address] Jul, [facility] [address] [id number] [place] [address] Jul, [facility] [address] [id number] [place] [address] Jun, [facility] [address] [id number] [place] [address] Jun, [facility] [address] [id number] [place] [address] Jun, [facility] [address] [id number] [place] [address] May, [facility] [address] [id number] [place] [address] Apr, [facility] [id number] [place] [address] Apr, [facility] [id number] [place] [address] Apr, [facility] [address] [id number] [place] [address] Apr, IMMUNIZATIONS No Known Immunizations SOCIAL HISTORY Never Assessed REASON FOR VISIT PLAN OF CARE VITAL SIGNS MEDICATIONS Unknown Medications RESULTS No Results PROCEDURES Procedure Date Ordered Result Body Site COMPLETE CBC W/AUTO DIFF WBC October 10, 2013 ASSAY THYROID STIM HORMONE October 10, 2013 ASSAY OF INSULIN October 10, 2013 COMPREHEN METABOLIC PANEL October 10, 2013 VENIPUNCT, ROUTINE* October 10, 2013 INSTRUCTIONS MEDICATIONS ADMINISTERED No Known Medications MEDICAL (GENERAL) HISTORY Type Description Date Medical History hypertension Medical History Sleep apnea in adult Surgical History x 3 Surgical History cholecystectomy Surgical History Chemical Stress Test, EKG, Echo 05/2016 Hospitalization History surgeries Hospitalization History UTI VC 05/2016
[2019-12-19] MEDS ORDERED: HYDROcodone/APAP 7.5 MG/325 MG (LORTAB, LORCET PLUS) TABLET PO PRN (07:30)
--- OUTSIDE RECORDS SUMMARY | 2019-12-19 07:36 | XMS REPORT | Continuity of Care Document ---
Demographics Preferred Language Unknown Marital Status Unknown Congregational Affiliation Unknown Race Unknown Ethnic Group Unknown Author Organization Unknown Address Unknown Phone Unavailable Allergies Active Description Code Type Severity Reaction Onset Reported/Identified Relationship to Patient Clinical Status Yes chlorthalidone 25 mg tablet Drug Allergy N/A N/A 11/22/2012 Yes hydrochlorothiazide 25 mg tablet Drug Allergy N/A N/A 11/22/2012 Yes codeine Drug Allergy N/A N/A 03/01/2013 Yes red onion Food Allergy N/A N/A 03/01/2013 Yes codeine [id number] Drug Allergy Unknown N/A 10/29/2014 Yes hydrochlorothiazide [id number] Drug Allergy Unknown N/A 10/29/2014 Yes ONION Food Allergy N/A N/A 10/30/2014 Yes codeine [id number] Drug Allergy Severe NECK SWELLING 01/02/2018 Yes hydrochlorothiazide [id number] Drug Allergy Severe NECK SWELLING 018 Yes dulaglutide [id number] Drug Aller gy Unknown N/A 12/11/2019 Medications There is no data. Problems Date Dx Coded Attending Type Code Diagnosis Diagnosed By 06/16/1430 FEDERICA ERICKSON, BAUDILIO Parks Ot S83.242A OTH TEAR OF MEDIAL MENISCUS, CURRENT INJ 06/16/1430 BAUDILIO STALLWORTH MD, Ot Z01.812 ENCOUNTER FOR PREPROCEDURAL LABORATORY E 06/16/1430 BAUDILIO STALLWORTH MD, Ot Z11.59 ENCOUNTER FOR SCREENING FOR OTHER VIRAL 02/08/2008 783.1 Weig ht Gain Abnormal 02/08/2008 [...] FAMI LY HISTORY OF DIABETES MELLITUS 02/08/2008 PETERSON DO NAHOMY K 783.1 Weight Gain Abnormal 02/08/2008 PETERSON CAROL PICKETTA K 784.0 Headache 02/08/2008 PETERSON CAROL PICKETTA [...] SHANNON KHAN APRNA S 784.0 Headache 02/08/2008 CARISA KHAN APRN S V18.0 FAMILY HISTORY OF DIABETES MELLITUS 02/08/2008 RADHA MORRISSEY APRNIA R 783.1 Weight Gain Abnormal 02/08/2008 FANY MORRISSEY APRNRICIA R 784.0 Headache 02/08/2008 RADHA MORRISSEY APRNIA R V18.0 FAMILY HISTORY OF DIABETES MELLITUS 02/08/2008 RUTH DOVER APRN A 78 3.1 Weight Gain Abnormal 02/08/2008 RUTH DOVER APRN A 78 4.0 Headache 02/08/2008 RUTH DOVER APRN A V1 8.0 FAMILY HISTORY OF DIABETES MELLITUS 02/08/2008 BILL INSTRUMENT LENS INSPECTOR, CARISA S 783.1 Weight Gain Abnormal 02/08/2008 BILL FISHER, CARISA S 784.0 Headache 02/08/2008 BILL FISHER CARISA S V18.0 FAMILY HISTORY OF DIABETES MELLITUS 02/08/2008 BILL FISHER, CARISA S 783.1 Weight Gain Abnormal 02/08/2008 BILL FISHER CARISA S 784.0 Headache 02/08/2008 GEORGETTE KHAN APRNNDA [...] betes Ii Controlled 02/09/2008 NAHOMY PETERSON DO 250.00 Diabetes Ii Controlled 02/09/2008 250.00 Marnie betes Ii Controlled 02/09/2008 250.00 Marnie betes Ii Controlled 02/09/2008 250.00 Marnie betes Ii Controlled 02/09/2008 250.00 Marnie betes Ii Controlled 02/09/2008 NAHOMY PETERSON DO 250.00 Diabetes Ii Controlled 02/09/2008 BALBIR MORRISSEY APRN R 250.00 Diabetes Ii Controlled 02/09/2008 BILL INSTRUMENT LENS INSPECTOR, CARISA S 250.00 Diabetes Ii Controlled 02/09/2008 BILL INSTRUMENT LENS INSPECTOR, CARISA S 250.00 Diabetes Ii Controlled 02/09/2008 FANY MORRISSEY APRNRICIA R 250.00 Diabetes Ii Controlled 02/09/2008 JAZZMINE INSTRUMENT LENS INSPECTOR, RUTH A 250.00 Diabetes Ii Controlled 02/09/2008 BILL INSTRUMENT LENS INSPECTOR, CARISA S 250.00 Diabetes Ii Controlled 02/09/2008 BILL FISHER, CARISA S 250.00 Diabetes Ii Controlled 02/09/2008 FANY MORRISSEY APRNRICIA R 250.00 Diabetes Ii Controlled 02/09/2008 BILL INSTRUMENT LENS INSPECTOR, CARISA S 250.00 Diabetes Ii Controlled 02/09/2008 BILL FISHER, CARISA S 250.00 Diabetes Ii Controlled 02/09/2008 BILL FISHER, CARISA S 250.00 Diabetes Ii Controlled 08/01/2008 462 Pharyn gitis Acute 08/01/2008 NAHOMY PETERSON DO K 462 Pharyngitis Acute 08/01/2008 462 Pharyn gitis Acute 08/01/2008 462 Pharyn gitis Acute 08/01/2008 462 Pharyn gitis Acute 08/01/2008 462 Pharyn gitis Acute 08/01/2008 NAHOMY PETERSON DO K 462 Pharyngitis Acute 08/01/2008 RADHA MORRISSEY APRNIA R 462 Pharyngitis Acute 08/01/2008 SHANNON KHAN APRNA S 462 Pharyngitis Acute 08/01/2008 GEORGETTE KHAN APRNNDA S 462 Pharyngitis Acute 08/01/2008 RADHA MORRISSEY APRNIA R 462 Pharyngitis Acute 08/01/2008 JAZZMINE FISHER, RUTH A 46 2 Pharyngitis Acute 08/01/2008 SHANNON KHAN APRNA S 462 Pharyngitis Acute 08/01/2008 GEORGETTE KHAN APRNNDA S 462 Pharyngitis Acute 08/01/2008 BALBIR MORRISSEY APRN R 462 Pharyngitis Acute 08/01/2008 SHANNON KHAN APRNA S 462 Pharyngitis Acute 08/01/2008 BILL INSTRUMENT LENS INSPECTOR, CARISA S 462 Pharyngitis Acute 08/01/2008 BILL INSTRUMENT LENS INSPECTOR, CARISA S 462 Pharyngitis Acute 12/18/2008 599.0 Urin aditi Tract Infection 12/18/2008 PETERSON DO, NAHOMY K 599.0 Urinary Tract Infection 12/18/2008 599.0 Urin aditi Tract Infection 12/18/2008 599.0 Urin aditi Tract Infection 12/18/2008 599.0 Urin aditi Tract Infection 12/18/2008 599.0 Urin aditi Tract Infection 12/18/2008 PETERSON DO, NAHOMY K 599.0 Urinary Tract Infection 12/18/2008 GHANSHYAM INSTRUMENT LENS INSPECTOR BALBIR R 599.0 Urinary Tract Infection 12/18/2008 BILL INSTRUMENT LENS INSPECTOR, CARISA S 599.0 Urinary Tract Infection 12/18/2008 BILL INSTRUMENT LENS INSPECTOR, CARISA S 599.0 Urinary Tract Infection 12/18/2008 GHANSHYAM INSTRUMENT LENS INSPECTOR BALBIR R 599.0 Urinary Tract Infection 12/18/2008 JAZZMINE INSTRUMENT LENS INSPECTOR, RUTH A 59 9.0 Urinary Tract Infection 12/18/2008 BILL INSTRUMENT LENS INSPECTOR, CARISA S 599.0 Urinary Tract Infection 12/18/2008 BILL INSTRUMENT LENS INSPECTOR, CARISA S 599.0 Urinary Tract Infection 12/18/2008 GHANSHYAM INSTRUMENT LENS INSPECTORFANYBALBIR R 599.0 Urinary Tract Infection 12/18/2008 BILL INSTRUMENT LENS INSPECTOR, CARISA S 599.0 Urinary Tract Infection 12/18/2008 BILL INSTRUMENT LENS INSPECTOR, CARISA S 599.0 Urinary Tract Infection 12/18/2008 BILL INSTRUMENT LENS INSPECTOR, CARISA S 599.0 Urinary Tract Infection 01/22/2009 401.1 ESSE NTIAL HYPERTENSION BENIGN 01/22/2009 PETESRON DO NAHOMY K 401.1 ESSENTIAL HYPERTENSION BENIGN 01/22/2009 401.1 ESSE NTIAL HYPERTENSION BENIGN 01/22/2009 401.1 ESSE NTIAL HYPERTENSION BENIGN 01/22/2009 401.1 ESSE NTIAL HYPERTENSION BENIGN 01/22/2009 401.1 ESSE NTIAL HYPERTENSION BENIGN 01/22/2009 PETERSON DO NAHOMY K 401.1 ESSENTIAL HYPERTENSION BENIGN 01/22/2009 FANY MORRISSEY APRNRICIA R 401.1 ESSENTIAL HYPERTENSION BENIGN 01/22/2009 BILL FISHER, CARISA S 401.1 ESSENTIAL HYPERTENSION BENIGN 01/22/2009 BILL FISHER, CARISA S 401.1 ESSENTIAL HYPERTENSION BENIGN 01/22/2009 RADHA MORRISSEY APRNIA R 401.1 ESSENTIAL HYPERTENSION BENIGN 01/22/2009 YU DOVER APRNIDI A 40 1.1 ESSENTIAL HYPERTENSION BENIGN 01/22/2009 BILL INSTRUMENT LENS INSPECTOR, CARISA S 401.1 ESSENTIAL HYPERTENSION BENIGN 01/22/2009 BILL CHRISTYN, CARISA S 401.1 ESSENTIAL HYPERTENSION BENIGN 01/22/2009 RADHA MORRISSEY APRNIA R 401.1 ESSENTIAL HYPERTENSION BENIGN 01/22/2009 BILL FISHER, CARISA S 401.1 ESSENTIAL HYPERTENSION BENIGN 01/22/2009 BILL CHRISTYN, CARISA S 401.1 ESSENTIAL HYPERTENSION BENIGN 01/22/2009 BILL INSTRUMENT LENS INSPECTOR, CARISA S 401.1 ESSENTIAL HYPERTENSION BENIGN 08/07/2009 [...] In Joint, Ankle And Foot 08/07/2009 BILL FISHER, CARISA S 719.47 Pain In Joint, Ankle And Foot 08/07/2009 BALBIR MORRISSEY APRN R 719.47 Pain In Joint, Ankle And Foot 08/07/2009 RUTH DOVER APRN A 719.47 Pain In Joint, Ankle And Foot 08/07/2009 GEORGETTE KHAN APRNNDA S 719.47 Pain In Joint, Ankle And Foot 08/07/2009 BILL INSTRUMENT LENS INSPECTOR, CARISA S 719.47 Pain In Joint, Ankle And Foot 08/07/2009 GHANSHYAM CHRISTYN, BALBIR R 719.47 Pain In Joint, Ankle And Foot 08/07/2009 BILL INSTRUMENT LENS INSPECTOR, CARISA S 719.47 Pain In Joint, Ankle And Foot 08/07/2009 BILL INSTRUMENT LENS INSPECTOR, CARISA S 719.47 Pain In Joint, Ankle And Foot 08/07/2009 BILL INSTRUMENT LENS INSPECTOR, CARISA S 719.47 Pain In Joint, Ankle And Foot 08/11/2009 780.79 Fatigue 08/11/2009 NAHOMY PETERSON DO 780.79 Fatigue 08/11/2009 780.79 Fatigue 08/11/2009 780.79 Fatigue 08/11/2009 780.79 Fatigue 08/11/2009 780.79 Fatigue 08/11/2009 NAHOMY PETERSON DO K 780.79 Fatigue 08/11/2009 FANY MORRISSEY APRNRICIA R 780.79 Fatigue 08/11/2009 BILL FISHER CARISA S 780.79 Fatigue 08/11/2009 BILL FISHER CARISA S 780.79 Fatigue 08/11/2009 FANY MORRISSEY APRNRICIA R 780.79 Fatigue 08/11/2009 JAZZMINE FISHER RUTH A 780.79 Fatigue 08/11/2009 BILL CHRISTYN, CARISA S 780.79 Fatigue 08/11/2009 BILL INSTRUMENT LENS INSPECTOR, CARISA S 780.79 Fatigue 08/11/2009 GHANSHYAM INSTRUMENT LENS INSPECTOR, BALBIR R 780.79 Fatigue 08/11/2009 BILL INSTRUMENT LENS INSPECTOR, CARISA S 780.79 Fatigue 08/11/2009 BILL INSTRUMENT LENS INSPECTOR, CARISA S 780.79 Fatigue 08/11/2009 BILL INSTRUMENT LENS INSPECTOR, CARISA S 780.79 Fatigue 09/09/2009 V74.1 Scre ening Examination For Pulmonary Tuberculosis 09/09/2009 NAHOMY PETERSON DO V74.1 Screening Examination For Pulmonary Tuberculosis 09/09/2009 V74.1 Scre ening Examination For Pulmonary Tuberculosis 09/09/2009 V74.1 Scre ening Examination For Pulmonary Tuberculosis 09/09/2009 V74.1 Scre ening Examination For Pulmonary Tuberculosis 09/09/2009 V74.1 Scre ening Examination For Pulmonary Tuberculosis 09/09/2009 PETERSON DO, NAHOMY K V74.1 Screening Examination For Pulmonary Tuberculosis 09/09/2009 MORRISSEY INSTRUMENT LENS INSPECTOR, BALBIR R V74.1 Screening Examination For Pulmonary Tuberculosis 09/09/2009 BILL INSTRUMENT LENS INSPECTOR, CARISA S V74.1 Screening Examination For Pulmonary Tuberculosis 09/09/2009 BILL INSTRUMENT LENS INSPECTOR, CARISA S V74.1 Screening Examination For Pulmonary Tuberculosis 09/09/2009 GHANSHYAM INSTRUMENT LENS INSPECTOR, BALBIR R V74.1 Screening Examination For Pulmonary Tuberculosis 09/09/2009 JAZZMINE INSTRUMENT LENS INSPECTOR, RUTH A V7 4.1 Screening Examination For Pulmonary Tuberculosis 09/09/2009 BILL INSTRUMENT LENS INSPECTOR, CARISA S V74.1 Screening Examination For Pulmonary Tuberculosis 09/09/2009 BILL INSTRUMENT LENS INSPECTOR, CARISA S V74.1 Screening Examination For Pulmonary Tuberculosis 09/09/2009 GHANSHYAM INSTRUMENT LENS INSPECTOR, BALBIR R V74.1 Screening Examination For Pulmonary Tuberculosis 09/09/2009 BILL INSTRUMENT LENS INSPECTOR, CARISA S V74.1 Screening Examination For Pulmonary Tuberculosis 09/09/2009 BILL INSTRUMENT LENS INSPECTOR, CARISA S V74.1 Screening Examination For Pulmonary Tuberculosis 09/09/2009 BILL INSTRUMENT LENS INSPECTOR, CARISA S V74.1 Screening Examination For Pulmonary Tuberculosis 09/15/2009 V72.31 Rou irwin Gynecological Examination 09/15/2009 NAHOMY PETERSON DO K V72.31 Routine Gynecological Examination 09/15/2009 V72.31 Rou irwin Gynecological Examination 09/15/2009 V72.31 Rou irwin Gynecological Examination 09/15/2009 V72.31 Rou irwin Gynecological Examination 09/15/2009 V72.31 Rou irwin Gynecological Examination 09/15/2009 NAHOMY PETERSON DO K V72.31 Routine Gynecological Examination 09/15/2009 GHANSHYAM INSTRUMENT LENS INSPECTOR, BALBIR R V72.31 Routine Gynecological Examination 09/15/2009 BILL FISHER, CARISA S V72.31 Routine Gynecological Examination 09/15/2009 BILL FISHER, CARISA S V72.31 Routine Gynecological Examination 09/15/2009 FANY MORRISSEY APRNRICIA R V72.31 Routine Gynecological Examination 09/15/2009 JAZZMINE INSTRUMENT LENS INSPECTOR, RUTH A V72.31 Routine Gynecological Examination 09/15/2009 BILL FISHER, CARISA S V72.31 Routine Gynecological Examination 09/15/2009 BILL INSTRUMENT LENS INSPECTOR, CARISA S V72.31 Routine Gynecological Examination 09/15/2009 RADHA MORRISSEY APRNIA R V72.31 Routine Gynecological Examination 09/15/2009 BILL INSTRUMENT LENS INSPECTOR, CARISA S V72.31 Routine Gynecological Examination 09/15/2009 BILL INSTRUMENT LENS INSPECTOR, CARISA S V72.31 Routine Gynecological Examination 09/15/2009 BILL INSTRUMENT LENS INSPECTOR, CARISA S V72.31 Routine Gynecological Examination 12/11/2009 300.00 Anx iety State, Unspecified 12/11/2009 PETERSON DO, NAHOMY K 300.00 Anxiety State, Unspecified 12/11/2009 300.00 Anx iety State, Unspecified 12/11/2009 300.00 Anx iety State, Unspecified 12/11/2009 300.00 Anx iety State, Unspecified 12/11/2009 300.00 Anx iety State, Unspecified 12/11/2009 PETERSON DO, NAHOMY K 300.00 Anxiety State, Unspecified 12/11/2009 FANY MORRISSEY APRNRICIA R 300.00 Anxiety State, Unspecified 12/11/2009 BILL INSTRUMENT LENS INSPECTOR, CARISA S 300.00 Anxiety State, Unspecified 12/11/2009 BILL INSTRUMENT LENS INSPECTOR, CARISA S 300.00 Anxiety State, Unspecified 12/11/2009 FANY MORRISSEY APRNRICIA R 300.00 Anxiety State, Unspecified 12/11/2009 JAZZMINE INSTRUMENT LENS INSPECTOR, RUTH A 300.00 Anxiety State, Unspecified 12/11/2009 BILL INSTRUMENT LENS INSPECTOR, CARISA S 300.00 Anxiety State, Unspecified 12/11/2009 BILL INSTRUMENT LENS INSPECTOR, CARISA S 300.00 Anxiety State, Unspecified 12/11/2009 FANY MORRISSEY APRNRICIA R 300.00 Anxiety State, Unspecified 12/11/2009 BILL INSTRUMENT LENS INSPECTOR, CARISA S 300.00 Anxiety State, Unspecified 12/11/2009 BILL INSTRUMENT LENS INSPECTOR CARISA S 300.00 Anxiety State, Unspecified 12/11/2009 BILL INSTRUMENT LENS INSPECTOR CARISA S 300.00 Anxiety State, Unspecified 04/27/2011 [...] NAHOMY K 727.43 Ganglion Unspecified 04/27/2011 MORRISSEY INSTRUMENT LENS INSPECTOR, BALBIR R 461.0 Acute Maxillary Sinusitis 04/27/2011 MORRISSEY INSTRUMENT LENS INSPECTOR, BALBIR R 727.43 Ganglion Unspecified 04/27/2011 BILL INSTRUMENT LENS INSPECTOR, CARISA S 461.0 Acute Maxillary Sinusitis 04/27/2011 BILL INSTRUMENT LENS INSPECTOR, CARISA S 727.43 Ganglion Unspecified 04/27/2011 BILL INSTRUMENT LENS INSPECTOR, CARISA S 461.0 Acute Maxillary Sinusitis 04/27/2011 BILL INSTRUMENT LENS INSPECTOR, CARISA S 727.43 Ganglion Unspecified 04/27/2011 MORRISSEY INSTRUMENT LENS INSPECTOR, BALBIR R 461.0 Acute Maxillary Sinusitis 04/27/2011 MORRISSEY INSTRUMENT LENS INSPECTOR, BALBIR R 727.43 Ganglion Unspecified 04/27/2011 JAZZMINE INSTRUMENT LENS INSPECTOR, RUTH A 46 1.0 Acute Maxillary Sinusitis 04/27/2011 JAZZMINE INSTRUMENT LENS INSPECTOR, RUTH A 727.43 Ganglion Unspecified 04/27/2011 BILL INSTRUMENT LENS INSPECTOR, CARISA S 461.0 Acute Maxillary Sinusitis 04/27/2011 BILL INSTRUMENT LENS INSPECTOR, CARISA S 727.43 Ganglion Unspecified 04/27/2011 BILL INSTRUMENT LENS INSPECTOR, CARISA S 461.0 Acute Maxillary Sinusitis 04/27/2011 BILL INSTRUMENT LENS INSPECTOR, CARISA S 727.43 Ganglion Unspecified 04/27/2011 MORRISSEY INSTRUMENT LENS INSPECTOR, BALBIR R 461.0 Acute Maxillary Sinusitis 04/27/2011 GHANSHYAM INSTRUMENT LENS INSPECTOR, BALBIR R 727.43 Ganglion Unspecified 04/27/2011 BILL INSTRUMENT LENS INSPECTOR, CARISA S 461.0 Acute Maxillary Sinusitis 04/27/2011 BILL INSTRUMENT LENS INSPECTOR, CARISA S 727.43 Ganglion Unspecified 04/27/2011 BILL INSTRUMENT LENS INSPECTOR, CARISA S 461.0 Acute Maxillary Sinusitis 04/27/2011 BILL INSTRUMENT LENS INSPECTOR, CARISA S 727.43 Ganglion Unspecified 04/27/2011 BILL INSTRUMENT LENS INSPECTOR, CARISA S 461.0 Acute Maxillary Sinusitis 04/27/2011 BILL INSTRUMENT LENS INSPECTOR, CARISA S 727.43 Ganglion Unspecified 07/01/2011 Ot 784.0 HEAD ACHE 07/01/2011 Ot 786.52 TAVON NFUL RESPIRATION 07/15/2011 300.00 ANX IETY DISORDER NOS 07/15/2011 NAHOMY PETERSON DO K 300.00 ANXIETY DISORDER NOS 07/15/2011 300.00 ANX IETY DISORDER NOS 07/15/2011 300.00 ANX IETY DISORDER NOS 07/15/2011 300.00 ANX IETY DISORDER NOS 07/15/2011 300.00 ANX IETY DISORDER NOS 07/15/2011 NAHOMY PETERSON DO K 300.00 ANXIETY DISORDER NOS 07/15/2011 GHANSHYAM FISHER, BALBIR R 300.00 ANXIETY DISORDER NOS 07/15/2011 BILL FISHER CARISA S 300.00 ANXIETY DISORDER NOS 07/15/2011 BILL FISHER CARISA S 300.00 ANXIETY DISORDER NOS 07/15/2011 FANY MORRISSEY APRNRICIA R 300.00 ANXIETY DISORDER NOS 07/15/2011 JAZZMINECelso FISHER RUTH A 300.00 ANXIETY DISORDER NOS 07/15/2011 BILL FISHER, CARISA S 300.00 ANXIETY DISORDER NOS 07/15/2011 BILL FISHER CARISA S 300.00 ANXIETY DISORDER NOS 07/15/2011 GHANSHYAM FISHER BALBIR R 300.00 ANXIETY DISORDER NOS 07/15/2011 BILL FISHER, CARISA S 300.00 ANXIETY DISORDER NOS 07/15/2011 BILL FISHER CARISA S 300.00 ANXIETY DISORDER NOS 07/15/2011 GEORGETTE KHAN APRNNDA S 300.00 ANXIETY DISORDER NOS 08/18/2011 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 08/18/2011 NAHOMY PETERSON DO K 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 08/18/2011 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 08/18/2011 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 08/18/2011 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 08/18/2011 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 08/18/2011 KRISTEN PICKETT NAHOMY K 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 08/18/2011 FANY MORRISSEY APRNRICIA R 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 08/18/2011 GEORGETTE KHAN APRNNDA S 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 08/18/2011 GEORGETTE KHAN APRNNDA S 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 08/18/2011 FANY MORRISSEY APRNRICIA R 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 08/18/2011 JAZZMINELIZZ FISHER RUTH A 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 [...] 08/25/2011 465.9 UPPE R RESPIRATORY INFECTION 08/25/2011 KRISTEN PICKETTNAHOMY K 465.9 UPPER RESPIRATORY INFECTION 08/25/2011 465.9 UPPE R RESPIRATORY INFECTION 08/25/2011 465.9 UPPE R RESPIRATORY INFECTION 08/25/2011 465.9 UPPE R RESPIRATORY INFECTION 08/25/2011 465.9 UPPE R RESPIRATORY INFECTION 08/25/2011 KRISTEN NAHOMY PICKETT K 465.9 UPPER RESPIRATORY INFECTION 08/25/2011 BALBIR MORRISSEY APRN R 465.9 UPPER RESPIRATORY INFECTION 08/25/2011 SHANNON KHAN APRNA S 465.9 UPPER RESPIRATORY INFECTION 08/25/2011 BILL INSTRUMENT LENS INSPECTOR, CARISA S 465.9 UPPER RESPIRATORY INFECTION 08/25/2011 MORRISSEY INSTRUMENT LENS INSPECTORFANYBALBIR R 465.9 UPPER RESPIRATORY INFECTION 08/25/2011 JAZZMINE CHRISTYN, RUTH A 46 5.9 UPPER RESPIRATORY INFECTION 08/25/2011 BILL INSTRUMENT LENS INSPECTOR, CARISA S 465.9 UPPER RESPIRATORY INFECTION 08/25/2011 BILL INSTRUMENT LENS INSPECTOR, CARISA S 465.9 UPPER RESPIRATORY INFECTION 08/25/2011 GHANSHYAM CHRISTYN, BALBIR R 465.9 UPPER RESPIRATORY INFECTION 08/25/2011 BILL INSTRUMENT LENS INSPECTOR, CARISA S 465.9 UPPER RESPIRATORY INFECTION 08/25/2011 BILL INSTRUMENT LENS INSPECTOR, CARISA S 465.9 UPPER RESPIRATORY INFECTION 08/25/2011 BILL INSTRUMENT LENS INSPECTOR, CARISA S 465.9 UPPER RESPIRATORY INFECTION 09/01/2011 311 MO DEP RESS NOS 09/01/2011 NAHOMY PETERSON DO K 311 MO DEPRESS NOS 09/01/2011 311 MO DEP RESS NOS 09/01/2011 311 MO DEP RESS NOS 09/01/2011 311 MO DEP RESS NOS 09/01/2011 311 MO DEP RESS NOS 09/01/2011 NAHOMY PETERSON DO K 311 MO DEPRESS NOS 09/01/2011 RADHA MORRISSEY APRNIA R 311 MO DEPRESS NOS 09/01/2011 GEORGETTE KHAN APRNNDA S 311 MO DEPRESS NOS 09/01/2011 BILL FISHER, CARISA S 311 MO DEPRESS NOS 09/01/2011 RADHA MORRISSEY APRNIA R 311 MO DEPRESS NOS 09/01/2011 JAZZMINE FISHER, RUTH A 31 1 MO DEPRESS NOS 09/01/2011 BILL FISHER CARISA S 311 MO DEPRESS NOS 09/01/2011 BILL FISHER, CARISA S 311 MO DEPRESS NOS 09/01/2011 RADHA MORRISSEY APRNIA R 311 MO DEPRESS NOS 09/01/2011 BILL FISHER, CARISA S 311 MO DEPRESS NOS 09/01/2011 BILL FISHER CARISA S 311 MO DEPRESS NOS 09/01/2011 BILL FISHER, CARISA S 311 MO DEPRESS NOS 09/02/2011 466.0 ACUT E BRONCHITIS 09/02/2011 NAHOMY PETERSON DO K 466.0 ACUTE BRONCHITIS 09/02/2011 466.0 ACUT E BRONCHITIS 09/02/2011 466.0 ACUT E BRONCHITIS 09/02/2011 466.0 ACUT E BRONCHITIS 09/02/2011 466.0 ACUT E BRONCHITIS 09/02/2011 NAHOMY PETERSON DO 466.0 ACUTE BRONCHITIS 09/02/2011 BALBIR MORRISSEY APRN R 466.0 ACUTE BRONCHITIS 09/02/2011 SHANNON KHAN APRNA S 466.0 ACUTE BRONCHITIS 09/02/2011 SHANNON KHAN APRNA S 466.0 ACUTE BRONCHITIS 09/02/2011 BALBIR MORRISSEY APRN R 466.0 ACUTE BRONCHITIS 09/02/2011 JAZZMINECelso FISHER RUTH A 46 6.0 ACUTE BRONCHITIS 09/02/2011 SHANNON KHAN APRNA S 466.0 ACUTE BRONCHITIS 09/02/2011 SHANNON KHAN APRNA S 466.0 ACUTE BRONCHITIS 09/02/2011 BALBIR MORRISSEY APRN R 466.0 ACUTE BRONCHITIS 09/02/2011 SHANNON KHAN APRNA S 466.0 ACUTE BRONCHITIS 09/02/2011 SHANNON KHAN APRNA S 466.0 ACUTE BRONCHITIS 09/02/2011 SHANNON KHAN [...] KHAN APRN S 462 ACUTE PHARYNGITIS 05/16/2012 GEORGETTE KHAN APRNNDA S 462 ACUTE PHARYNGITIS 05/16/2012 BALBIR MORRISSEY APRN R 462 ACUTE PHARYNGITIS 05/16/2012 RUTH DOVER APRN A 46 2 ACUTE PHARYNGITIS 05/16/2012 SHANNON KHAN APRNA S 462 ACUTE PHARYNGITIS 05/16/2012 GEORGETTE KHAN APRNNDA S 462 ACUTE PHARYNGITIS 05/16/2012 BALBIR MORRISSEY APRN R 462 ACUTE PHARYNGITIS 05/16/2012 SHANNON KHAN APRNA S 462 ACUTE PHARYNGITIS 05/16/2012 GEORGETTE KHAN APRNNDA S 462 ACUTE PHARYNGITIS 05/16/2012 SHANNON KHAN [...] DX (3 YRS AND ABOVE, IM) 05/25/2012 CARISA KHAN APRN S V04.81 FLU DX (3 YRS AND ABOVE, IM) 05/25/2012 CARISA KHAN APRN S V04.81 FLU DX (3 YRS AND ABOVE, IM) 05/25/2012 BALBIR MORRISSEY APRN R V04.81 FLU DX (3 YRS AND ABOVE, IM) 05/25/2012 RUTH DOVER APRN A V04.81 FLU DX (3 YRS AND ABOVE, IM) 05/25/2012 CARISA KHAN APRN S V04.81 FLU DX (3 YRS AND ABOVE, IM) 05/25/2012 BILL CHRISTYN, CARISA S V04.81 FLU DX (3 YRS AND ABOVE, IM) 05/25/2012 GHANSHYAM FISHER, BALBIR R V04.81 FLU DX (3 YRS AND ABOVE, IM) 05/25/2012 BILL INSTRUMENT LENS INSPECTOR, CARISA S V04.81 FLU DX (3 YRS AND ABOVE, IM) 05/25/2012 BILL INSTRUMENT LENS INSPECTOR, CARISA S V04.81 FLU DX (3 YRS AND ABOVE, IM) 05/25/2012 BILL INSTRUMENT LENS INSPECTOR, CARISA S V04.81 FLU DX (3 YRS [...] PETERSON DO, NAHOMY K 784.0 HEADACHE 08/16/2012 GHANSHYAM FISHER, BALBIR R 461.9 SINUSITIS ACUTE 08/16/2012 GHANSHYAM FISHER BALBIR R 784.0 HEADACHE 08/16/2012 BILL INSTRUMENT LENS INSPECTOR, CARISA S 461.9 SINUSITIS ACUTE 08/16/2012 BILL INSTRUMENT LENS INSPECTOR, CARISA S 784.0 HEADACHE 08/16/2012 BILL INSTRUMENT LENS INSPECTOR, CARISA S 461.9 SINUSITIS ACUTE 08/16/2012 BILL INSTRUMENT LENS INSPECTOR, CARISA S 784.0 HEADACHE 08/16/2012 GHANSHYAM INSTRUMENT LENS INSPECTOR, BALBIR R 461.9 SINUSITIS ACUTE 08/16/2012 FANY MORRISSEY APRNRICIA R 784.0 HEADACHE 08/16/2012 JAZZMINE INSTRUMENT LENS INSPECTOR, RUTH A 46 1.9 SINUSITIS ACUTE 08/16/2012 JAZZMINE INSTRUMENT LENS INSPECTOR, RUTH A 78 4.0 HEADACHE 08/16/2012 BILL INSTRUMENT LENS INSPECTOR, CARISA S 461.9 SINUSITIS ACUTE 08/16/2012 BILL INSTRUMENT LENS INSPECTOR, CARISA S 784.0 HEADACHE 08/16/2012 MORRISSEY INSTRUMENT LENS INSPECTOR, BALBIR R 461.9 SINUSITIS ACUTE 08/16/2012 MORRISSEY INSTRUMENT LENS INSPECTOR, BALBIR R 784.0 HEADACHE 08/16/2012 BILL INSTRUMENT LENS INSPECTOR, CARISA S 461.9 SINUSITIS ACUTE 08/16/2012 BILL INSTRUMENT LENS INSPECTOR, CARISA S 784.0 HEADACHE 08/16/2012 BILL INSTRUMENT LENS INSPECTOR, CARISA S 461.9 SINUSITIS ACUTE 08/16/2012 BILL INSTRUMENT LENS INSPECTOR, CARISA S 784.0 HEADACHE 08/16/2012 BILL INSTRUMENT LENS INSPECTOR, CARISA S 461.9 SINUSITIS ACUTE 08/16/2012 BILL INSTRUMENT LENS INSPECTOR, CARISA S 784.0 HEADACHE 09/04/2012 NAHOMY PETERSON DO 278.00 OBESITY 09/04/2012 NAHOMY PETERSON DO V73.81 HPV SCREENING 09/04/2012 NAHOMY PETERSON DO [...] SCREENING (PAP SMEAR) 09/04/2012 NAHOMY PETERSON DO 278.00 OBESITY 09/04/2012 NAHOMY PETERSON DO V73.81 HPV SCREENING 09/04/2012 NAHOMY PETERSON DO V76.2 CERVICAL CANCER SCREENING (PAP SMEAR) 09/04/2012 GHANSHYAM FISHER, BALBIR R 278.00 OBESITY 09/04/2012 GHANSHYAM INSTRUMENT LENS INSPECTOR, BALBIR R V73.81 HPV SCREENING 09/04/2012 GHANSHYAM CHRISTYN, BALBIR R V76.2 CERVICAL CANCER SCREENING (PAP SMEAR) 09/04/2012 BILL FISHER, CARISA S 278.00 OBESITY 09/04/2012 BILL CHRISTYN, CARISA S V73.81 HPV SCREENING 09/04/2012 BILL FISHER, CARISA S V76.2 CERVICAL CANCER SCREENING (PAP SMEAR) 09/04/2012 BILL CHRISTYN, CARISA S 278.00 OBESITY 09/04/2012 BILL CHRISTYN, CARISA S V73.81 HPV SCREENING 09/04/2012 BILL FISHER CARISA S V76.2 CERVICAL CANCER SCREENING (PAP SMEAR) 09/04/2012 GHANSHYAM FISHER BALBIR R 278.00 OBESITY 09/04/2012 FANY MORRISSEY APRNRICIA R V73.81 HPV SCREENING 09/04/2012 FANY MORRISSEY APRNRICIA R V76.2 CERVICAL CANCER SCREENING (PAP SMEAR) 09/04/2012 JAZZMINE INSTRUMENT LENS INSPECTOR, RUTH A 278.00 OBESITY 09/04/2012 JAZZMINE INSTRUMENT LENS INSPECTOR, RUTH A V73.81 HPV SCREENING 09/04/2012 JAZZMINE INSTRUMENT LENS INSPECTOR, RUTH A V7 6.2 CERVICAL CANCER SCREENING (PAP SMEAR) 09/04/2012 BILL FISHER, CARISA S 278.00 OBESITY 09/04/2012 GEORGETTE KHAN APRNNDA S V73.81 HPV SCREENING 09/04/2012 GEORGETTE KHAN APRNNDA S V76.2 CERVICAL CANCER SCREENING (PAP SMEAR) 09/04/2012 GHANSHYAM FISHER BALBIR R 278.00 OBESITY 09/04/2012 GHANSHYAM FISHER BALBIR R V73.81 HPV SCREENING 09/04/2012 GHANSHYAM FISHER BALBIR R V76.2 CERVICAL CANCER SCREENING (PAP SMEAR) 09/04/2012 BILL FISHER CARISA S 278.00 OBESITY 09/04/2012 BILL FISHER CARISA S V73.81 HPV SCREENING 09/04/2012 BILL FISHER CARISA S V76.2 CERVICAL CANCER SCREENING (PAP SMEAR) 09/04/2012 BILL FISHER, CARISA S 278.00 OBESITY 09/04/2012 BILL FISHER, CARISA S V73.81 HPV SCREENING 09/04/2012 BILL INSTRUMENT LENS INSPECTOR, CARISA S V76.2 CERVICAL CANCER SCREENING (PAP SMEAR) 09/04/2012 BILL FISHER, CARISA S 278.00 OBESITY 09/04/2012 BILL FISHER, CARISA S V73.81 HPV SCREENING 09/04/2012 BILL FISHER, CARISA S V76.2 CERVICAL CANCER SCREENING (PAP SMEAR) 11/07/2012 786.2 cough 11/07/2012 786.2 cough 11/07/2012 786.2 cough 11/07/2012 786.2 cough 11/07/2012 NAHOMY PETERSON DO 786.2 cough 11/07/2012 GHANSHYAM FISHER, BALBIR R 786.2 cough 11/07/2012 GEORGETTE KHAN APRNNDA S 786.2 COUGH 11/07/2012 BILL FISHER CARISA S 786.2 COUGH 11/07/2012 GHANSHYAM FISHER, BALBIR R 786.2 COUGH 11/07/2012 JAZZMINE FISHER RUTH A 78 6.2 COUGH 11/07/2012 BILL FISHER, CARISA S 786.2 COUGH 11/07/2012 GHANSHYAM FISHER, BALBIR R 786.2 COUGH 11/07/2012 BILL FISHER, CARISA S 786.2 COUGH 11/07/2012 BILL FISHER CARISA S 786.2 COUGH 11/07/2012 BILL FISHER, CARISA S 786.2 COUGH 11/16/2012 Ot 486 PNEUMO MAHENDRA, ORGANISM NOS 11/16/2012 Ot 784.0 HEAD ACHE 11/21/2012 701.9 SKIN TAG 11/21/2012 701.9 SKIN TAG 11/21/2012 701.9 SKIN TAG 11/21/2012 NAHOMY PETERSON DO 701.9 SKIN TAG 11/21/2012 GHANSHYAM FISHER, BALBIR R 701.9 SKIN TAG 11/21/2012 BILL FISHER CARISA S 701.9 SKIN TAG 11/21/2012 BILL INSTRUMENT LENS INSPECTOR, CARISA S 701.9 SKIN TAG 11/21/2012 MORRISSEY RADHA FISHERIA R 701.9 SKIN TAG 11/21/2012 JAZZMINE NATALIA, RUTH A 70 1.9 SKIN TAG 11/21/2012 BILL FISHER, CARISA S 701.9 SKIN TAG 11/21/2012 MORRISSEY NATALIA, BALBIR R 701.9 SKIN TAG 11/21/2012 BILL FISHER, CARISA S 701.9 SKIN TAG 11/21/2012 BILL FISHER, CARISA S 701.9 SKIN TAG 11/21/2012 BILL FISHER, CARISA S 701.9 SKIN TAG 11/22/2012 Ot [...] 11/23/2012 995.27 OTH ER DRUG ALLERGY 11/23/2012 NAHOMY PETERSON DO 995.27 OTHER DRUG ALLERGY 11/23/2012 RADHA MORRISSEY APRNIA R 995.27 OTHER DRUG ALLERGY 11/23/2012 GEORGETTE KHAN APRNNDA S 995.27 OTHER DRUG ALLERGY 11/23/2012 BILL FISHER CARISA S 995.27 OTHER DRUG ALLERGY 11/23/2012 RADHA MORRISSEY APRNIA R 995.27 OTHER DRUG ALLERGY 11/23/2012 RUTH DOVER APRN A 995.27 OTHER DRUG ALLERGY 11/23/2012 BILL FISHER CARISA S 995.27 OTHER DRUG ALLERGY 11/23/2012 FANY MORRISSEY APRNRICIA R 995.27 OTHER DRUG ALLERGY 11/23/2012 BILL FISHER CARISA S 995.27 OTHER DRUG ALLERGY 11/23/2012 BILL FISHER CARISA S 995.27 OTHER DRUG ALLERGY 11/23/2012 BILL INSTRUMENT LENS INSPECTOR, CARISA S 995.27 OTHER DRUG ALLERGY 11/27/2012 Ot 729.1 MYAL GOPAL AND MYOSITIS NOS 11/27/2012 Ot 787.01 JASON SEA WITH VOMITING 11/27/2012 Ot 787.91 MARNIE RRHEA 01/23/2013 Ot 462 ACUTE PHARYNGITIS 03/01/2013 995.3 EDAWR RGY UNSPECIFIED NOT ELSEWHERE CLASSIFIED 03/01/2013 KRISTEN DO NAHOMY K 995.3 ALLERGY UNSPECIFIED NOT ELSEWHERE CLASSIFIED 03/01/2013 GHANSHYAM INSTRUMENT LENS INSPECTOR, BALBIR R 995.3 ALLERGY UNSPECIFIED NOT ELSEWHERE CLASSIFIED 03/01/2013 BILL INSTRUMENT LENS INSPECTOR, CARISA S 995.3 ALLERGY UNSPECIFIED NOT ELSEWHERE CLASSIFIED 03/01/2013 BILL INSTRUMENT LENS INSPECTOR, CARISA S 995.3 ALLERGY UNSPECIFIED NOT ELSEWHERE CLASSIFIED 03/01/2013 GHANSHYAM INSTRUMENT LENS INSPECTOR BALBIR R 995.3 ALLERGY UNSPECIFIED NOT ELSEWHERE CLASSIFIED 03/01/2013 YU DOVER APRNIDI A 99 5.3 ALLERGY UNSPECIFIED NOT ELSEWHERE CLASSIFIED 03/01/2013 BILL INSTRUMENT LENS INSPECTOR, CARISA S 995.3 ALLERGY UNSPECIFIED NOT ELSEWHERE CLASSIFIED 03/01/2013 GHANSHYAM INSTRUMENT LENS INSPECTOR, BALBIR R 995.3 ALLERGY UNSPECIFIED NOT ELSEWHERE CLASSIFIED 03/01/2013 BILL INSTRUMENT LENS INSPECTOR, CARISA S 995.3 ALLERGY UNSPECIFIED NOT ELSEWHERE CLASSIFIED 03/01/2013 BILL INSTRUMENT LENS INSPECTOR, CARISA S 995.3 ALLERGY UNSPECIFIED NOT ELSEWHERE CLASSIFIED 03/01/2013 BILL INSTRUMENT LENS INSPECTOR, CARISA S 995.3 ALLERGY UNSPECIFIED NOT ELSEWHERE CLASSIFIED 05/16/2013 PETERSON DO NAHOMY K 789.09 ABDOMINAL PAIN OTHER SPECIFIED SITE 05/16/2013 GHANSHYAM INSTRUMENT LENS INSPECTOR, BALBIR R 789.09 ABDOMINAL PAIN OTHER SPECIFIED SITE 05/16/2013 BILL INSTRUMENT LENS INSPECTOR, CARISA S 789.09 ABDOMINAL PAIN OTHER SPECIFIED SITE 05/16/2013 BILL INSTRUMENT LENS INSPECTOR, CARISA S 789.09 ABDOMINAL PAIN OTHER SPECIFIED SITE 05/16/2013 GHANSHYAM FISHER BALBIR R 789.09 ABDOMINAL PAIN OTHER SPECIFIED SITE 05/16/2013 YU DOVER APRNIDI A 789.09 ABDOMINAL PAIN OTHER SPECIFIED SITE 05/16/2013 BILL INSTRUMENT LENS INSPECTOR, CARISA S 789.09 ABDOMINAL PAIN OTHER SPECIFIED SITE 05/16/2013 MORRISSEY INSTRUMENT LENS INSPECTOR, BALBIR R 789.09 ABDOMINAL PAIN OTHER SPECIFIED SITE 05/16/2013 BILL INSTRUMENT LENS INSPECTOR, CARISA S 789.09 ABDOMINAL PAIN OTHER SPECIFIED SITE 05/16/2013 BILL INSTRUMENT LENS INSPECTOR, CARISA S 789.09 ABDOMINAL PAIN OTHER SPECIFIED SITE 05/16/2013 BILL INSTRUMENT LENS INSPECTOR, CARISA S 789.09 ABDOMINAL PAIN OTHER SPECIFIED SITE 06/04/2013 MORRISSEY INSTRUMENT LENS INSPECTOR, BALBIR R 729.5 PAIN IN LIMB 06/04/2013 BILL INSTRUMENT LENS INSPECTOR, CARISA S 729.5 PAIN IN LIMB 06/04/2013 BILL INSTRUMENT LENS INSPECTOR, CARISA S 729.5 PAIN IN LIMB 06/04/2013 GHANSHYAM INSTRUMENT LENS INSPECTOR, BALBIR R 729.5 PAIN IN LIMB 06/04/2013 JAZZMINE INSTRUMENT LENS INSPECTOR, RUTH A 72 9.5 PAIN IN LIMB 06/04/2013 BILL INSTRUMENT LENS INSPECTOR, CARISA S 729.5 PAIN IN LIMB 06/04/2013 GHANSHYAM INSTRUMENT LENS INSPECTOR, BALBIR R 729.5 PAIN IN LIMB 06/04/2013 BILL INSTRUMENT LENS INSPECTOR, CARISA S 729.5 PAIN IN LIMB 06/04/2013 BILL INSTRUMENT LENS INSPECTOR, CARISA S 729.5 PAIN IN LIMB 06/04/2013 BILL INSTRUMENT LENS INSPECTOR, CARISA S 729.5 PAIN IN LIMB 06/18/2013 BILL INSTRUMENT LENS INSPECTOR, CARISA S 573.8 OTHER SPECIFIED DISORDERS OF LIVER 06/18/2013 BILL INSTRUMENT LENS INSPECTOR, CARISA S 573.8 OTHER SPECIFIED DISORDERS OF LIVER 06/18/2013 GHANSHYAM INSTRUMENT LENS INSPECTOR, BALBIR R 573.8 OTHER SPECIFIED DISORDERS OF LIVER 06/18/2013 JAZZMINE INSTRUMENT LENS INSPECTOR, RUTH A 57 3.8 OTHER SPECIFIED DISORDERS OF LIVER 06/18/2013 BILL INSTRUMENT LENS INSPECTOR, CARISA S 573.8 OTHER SPECIFIED DISORDERS OF LIVER 06/18/2013 GHANSHYAM INSTRUMENT LENS INSPECTOR, BALBIR R 573.8 OTHER SPECIFIED DISORDERS OF LIVER 06/18/2013 BILL INSTRUMENT LENS INSPECTOR, CARISA S 573.8 OTHER SPECIFIED DISORDERS OF LIVER 06/18/2013 BILL INSTRUMENT LENS INSPECTOR, CARISA S 573.8 OTHER SPECIFIED DISORDERS OF LIVER 06/18/2013 BILL FISHER, CARISA S 573.8 OTHER SPECIFIED DISORDERS OF LIVER 08/01/2013 Ot 462 ACUTE PHARYNGITIS 08/01/2013 Ot 487.1 FLU W RESP MANIFEST NEC 10/09/2013 BILL FISHER, CARISA S 251.1 HYPERINSULINISM 10/09/2013 BILL FISHER, CARISA S 780.79 fatigue 10/09/2013 GHANSHYAM FISHER, BALBIR R 251.1 HYPERINSULINISM 10/09/2013 GHANSHYAM CHRISTYN, BALBIR R 780.79 fatigue 10/09/2013 JAZZMINE CHRISTYN, RUTH A 25 1.1 HYPERINSULINISM 10/09/2013 JAZZMINE CHRISTYN, RUTH A 780.79 fatigue 10/09/2013 BILL FISHER, CARISA S 251.1 HYPERINSULINISM 10/09/2013 BILL FISHER, CARISA S 780.79 FATIGUE 10/09/2013 GHANSHYAM FISHER, BALBIR R 251.1 HYPERINSULINISM 10/09/2013 GHANHSYAM CHRISTYN, BALBIR R 780.79 FATIGUE 10/09/2013 BILL CHRISTYN, CARISA S 251.1 HYPERINSULINISM 10/09/2013 BILL FISHER, CARISA S 780.79 FATIGUE 10/09/2013 BILL CHRISTYN, CARISA S 251.1 HYPERINSULINISM 10/09/2013 BILL FISHER, CARISA S 780.79 FATIGUE 10/09/2013 BILL FISHER, CARISA S 251.1 HYPERINSULINISM 10/09/2013 BILL FISHER, CARISA S 780.79 FATIGUE 12/27/2013 GHANSHYAM FISHER BALBIR R 034.0 STREP THROAT 12/27/2013 JAZZMINE CHRISTYN, RUTH A 03 4.0 STREP THROAT 12/27/2013 BILL FISHER, CARISA S 034.0 STREP THROAT 12/27/2013 GHANSHYAM FISHER, BALBIR R 034.0 STREP THROAT 12/27/2013 BILL FISHER, CARISA S 034.0 STREP THROAT 12/27/2013 BILL FISHER CARISA S 034.0 STREP THROAT 12/27/2013 BILL FISHER CARISA S 034.0 STREP THROAT 01/03/2014 JAZZMINE INSTRUMENT LENS INSPECTOR, RUTH A 59 9.0 URINARY TRACT INFECTION 01/03/2014 BILL CHRISTYN, CARISA S 599.0 URINARY TRACT INFECTION 01/03/2014 GHANSHYAM INSTRUMENT LENS INSPECTOR, BALBIR R 599.0 URINARY TRACT INFECTION 01/03/2014 BILL INSTRUMENT LENS INSPECTOR, CARISA S 599.0 URINARY TRACT INFECTION 01/03/2014 BILL INSTRUMENT LENS INSPECTOR, CARISA S 599.0 URINARY TRACT INFECTION 01/03/2014 BILL INSTRUMENT LENS INSPECTOR, CARISA S 599.0 URINARY TRACT INFECTION 02/10/2014 ENMA GARCIA MD Ot 346.90 MIGRAINE UNSPECIFIED W/O INTRACT MGRN W/ 02/10/2014 ENMA GARCIA MD Ot 784 .0 HEADACHE 02/18/2014 BILL FISHER, CARISA S 307.81 TENSION HEADACHE 02/18/2014 BILL FISHER, CARISA S 401.1 HYPERTENSION, BENIGN ESSENTIAL 02/18/2014 FANY MORRISSEY APRNRICIA R 307.81 TENSION HEADACHE 02/18/2014 FANY MORRISSEY APRNRICIA R 401.1 HYPERTENSION, BENIGN ESSENTIAL 02/18/2014 BILL FISHER, CARISA S 307.81 TENSION HEADACHE 02/18/2014 BILL FISHER, CARISA S 401.1 HYPERTENSION, BENIGN ESSENTIAL 02/18/2014 BILL CHRISTYN, CARISA S 307.81 TENSION HEADACHE 02/18/2014 BILL FISHER, CARISA S 401.1 HYPERTENSION, BENIGN ESSENTIAL 02/18/2014 BILL CHRISTYN, CARISA S 307.81 TENSION HEADACHE 02/18/2014 BILL CHRISTYN, CARISA S 401.1 HYPERTENSION, BENIGN ESSENTIAL 03/08/2014 FANY MORRISSEY APRNRICIA R 477.8 ALLERGIC RHINITIS DUE TO OTHER ALLERGEN 03/08/2014 FANY MORRISSEY APRNRICIA R 784.0 HEADACHE 03/08/2014 GEORGETTE KHAN APRNNDA S 477.8 ALLERGIC RHINITIS DUE TO OTHER ALLERGEN 03/08/2014 BILL FISHER, CARISA S 784.0 HEADACHE 03/08/2014 BILL FISHER CARISA S 477.8 ALLERGIC RHINITIS DUE TO OTHER ALLERGEN 03/08/2014 BILL INSTRUMENT LENS INSPECTOR, CARISA S 784.0 HEADACHE 03/08/2014 BILL INSTRUMENT LENS INSPECTOR, CARISA S 477.8 ALLERGIC RHINITIS DUE TO OTHER ALLERGEN 03/08/2014 BILL INSTRUMENT LENS INSPECTOR, CARISA S 784.0 HEADACHE 09/17/2014 BILL INSTRUMENT LENS INSPECTOR, CARISA S 465.9 UPPER RESPIRATORY INFECTION 09/17/2014 BILL INSTRUMENT LENS INSPECTOR, CARISA S 465.9 UPPER RESPIRATORY INFECTION 09/17/2014 BILL INSTRUMENT LENS INSPECTOR, CARISA S 465.9 UPPER RESPIRATORY INFECTION 09/25/2014 BILL INSTRUMENT LENS INSPECTOR, CARISA S 346.90 MIGRAINE HEADACHE 09/25/2014 BILL INSTRUMENT LENS INSPECTOR, CARISA S 786.2 COUGH 09/25/2014 BILL INSTRUMENT LENS INSPECTOR, CARISA S 346.90 MIGRAINE HEADACHE 09/25/2014 BILL INSTRUMENT LENS INSPECTOR, CARISA S 786.2 COUGH 09/25/2014 BILL INSTRUMENT LENS INSPECTOR, CARISA S 346.90 MIGRAINE HEADACHE 09/25/2014 BILL INSTRUMENT LENS INSPECTOR, CARISA S 786.2 COUGH 10/29/2014 ANDREEA WASHINGTON DO Ot 300.00 ANXIETY STATE NOS 10/29/2014 ANDREEA WASHINGTON DO Ot 529.6 GLOSSODYNIA 06/12/2016 Ot 573.8 LIVE R DISORDERS NEC 06/12/2016 Ot 789.09 ABD OMINAL PAIN, OTHER SPECIFIED SITE 06/12/2016 Ot 573.8 LIVE R DISORDERS NEC 06/12/2016 BILL CARISA SWITCH BOX INSTALLER Ot 573.8 LIVER DISORDERS NEC 06/14/2016 TORRES [...] MASS INDEX (BMI) 50-59.9 , ADULT 06/14/2016 JOCELYN ERICKSON, TORRES Correa Ot Z79. 84 MEASUREMENT DEPARTMENT CHIEF CLERK (CURRENT) USE OF ORAL HYPOGLYC 07/13/2016 ANNA OSBORN MDNT A Ot E11. 9 TYPE 2 DIABETES MELLITUS WITHOUT COMPLIC 07/13/2016 ANNA OSBORN MDNT A Ot I10 ESSENTIAL (PRIMARY) HYPERTENSION 07/13/2016 ANNA OSBORN MDNT A Ot J02. 0 STREPTOCOCCAL PHARYNGITIS 07/13/2016 LEIGHA OSBORN MD A Ot J02. 9 ACUTE PHARYNGITIS, UNSPECIFIED 07/13/2016 LEIGHA OSBORN MD A Ot Z79. 84 JAIL (CURRENT) USE OF ORAL HYPOGLYC 07/13/2016 LEIGHA OSBORN MD A Ot Z79.899 OTHER MEASUREMENT DEPARTMENT CHIEF CLERK (CURRENT) DRUG THERAPY 07/14/2016 LEIGHA OSBORN MD A Ot E11. 9 TYPE 2 DIABETES MELLITUS WITHOUT COMPLIC 07/14/2016 LEIGHA OSBORN MD A Ot I10 ESSENTIAL (PRIMARY) HYPERTENSION 07/14/2016 LEIGHA OSBORN MD A Ot J02. 0 STREPTOCOCCAL PHARYNGITIS 07/14/2016 LEIGHA OSBORN MD A Ot J02. 9 ACUTE PHARYNGITIS, UNSPECIFIED 07/14/2016 LEIGHA OSBORN MD A Ot Z79. 84 MEASUREMENT DEPARTMENT CHIEF CLERK (CURRENT) USE OF ORAL HYPOGLYC 07/14/2016 ANNA OSBORN MDNT A Ot Z79.899 OTHER MEASUREMENT DEPARTMENT CHIEF CLERK (CURRENT) DRUG THERAPY 07/18/2016 LEIGHA OSBORN MD A Ot E11. 9 TYPE 2 DIABETES MELLITUS WITHOUT COMPLIC 07/18/2016 LEIGHA OSBORN MD A Ot I10 ESSENTIAL (PRIMARY) HYPERTENSION 07/18/2016 LEIGHA OSBORN MD A Ot J02. 0 STREPTOCOCCAL PHARYNGITIS 07/18/2016 LEIGHA OSBORN MD A Ot J02. 9 ACUTE PHARYNGITIS, UNSPECIFIED 07/18/2016 ANNA OSBORN MDNT A Ot Z79. 84 JAIL (CURRENT) USE OF ORAL HYPOGLYC 07/18/2016 ANURAG ERICKSON LEIGHA A Ot Z79.899 OTHER MEASUREMENT DEPARTMENT CHIEF CLERK (CURRENT) DRUG THERAPY 12/04/2016 ALLEGRA VILLATORO APRN Ot E11 .9 TYPE 2 DIABETES MELLITUS WITHOUT COMPLIC 12/04/2016 ALLEGRA VILLATORO APRN Ot I10 ESSENTIAL (PRIMARY) HYPERTENSION 12/04/2016 VILLATOROALLEGRA AREVALO APRN Ot S40.012A CONTUSION OF LEFT SHOULDER, INITIAL ENCO 12/04/2016 ALLEGRA VILLATORO APRN Ot S49.92XA UNSP INJURY OF LEFT SHOULDER AND UPPER A 12/04/2016 ALLEGRA VILLATORO APRN Ot W01.0XXA FALL SAME LEV FROM SLIP/TRIP W/O STRIKE 12/04/2016 ALLEGRA VILLATORO APRN Ot Y92.39 [facility] 12/04/2016 ALLEGRA VILLATORO APRN Ot Y99 .8 OTHER EXTERNAL CAUSE STATUS 12/04/2016 ALLEGRA VILLATORO APRN Ot Z79.84 MEASUREMENT DEPARTMENT CHIEF CLERK (CURRENT) USE OF ORAL HYPOGLYC 12/06/2016 ALLEGRA [...] STRIKE 12/06/2016 ALLEGRA VILLATORO APRN Ot Y92.39 [facility] 12/06/2016 ALLEGRA VILLATORO APRN Ot Y99 .8 OTHER EXTERNAL CAUSE STATUS 12/06/2016 ALLEGRA VILLATORO APRN Ot Z79.84 MEASUREMENT DEPARTMENT CHIEF CLERK (CURRENT) USE OF ORAL HYPOGLYC 02/07/2017 CAIN [place] DOA K Ot E11.9 TYPE 2 DIABETES MELLITUS WITHOUT COMPLIC 02/07/2017 FELIX PICKETT ANDREEA K Ot E78.00 PURE HYPERCHOLESTEROLEMIA, UNSPECIFIED 02/07/2017 FELIX PICKETT ANDREEA K Ot G43.909 MIGRAINE, UNSP, NOT INTRACTABLE, WITHOUT 02/07/2017 FELIXTere PICKETT ANDREEA K Ot G47.30 SLEEP APNEA, UNSPECIFIED 02/07/2017 FELIXTere PICKETT ANDREEA K Ot I10 ESSENTIAL (PRIMARY) HYPERTENSION 02/07/2017 CAIN [place] DOA K Ot N39.0 URINARY TRACT INFECTION, SITE NOT SPECIF 02/07/2017 FELIX DO, ANDREEA K Ot R10.12 LEFT UPPER QUADRANT PAIN 02/07/2017 FELIX DO, ANDREEA K Ot Z79.84 MEASUREMENT DEPARTMENT CHIEF CLERK (CURRENT) USE OF ORAL HYPOGLYC 02/07/2017 FELIX [...] 02/08/2017 FELIX DO, ANDREEA K Ot Z79.84 MEASUREMENT DEPARTMENT CHIEF CLERK (CURRENT) USE OF ORAL HYPOGLYC 02/08/2017 FELIX [...] BIT/STUNG BY NONVENOM INSECT OTH NONVE 03/05/2017 EBER PA, SOLO L Ot Z79.84 MEASUREMENT DEPARTMENT CHIEF CLERK (CURRENT) USE OF ORAL HYPOGLYC 03/05/2017 SOLO [...] BIT/STUNG BY NONVENOM INSECT OTH NONVE 03/08/2017 SLOO ALFARO Ot Z79.84 MEASUREMENT DEPARTMENT CHIEF CLERK (CURRENT) USE OF ORAL HYPOGLYC 03/08/2017 SOLO ALFARO Ot Z82.49 FAMILY HX OF ISCHEM HEART DIS AND OTH DI 03/08/2017 SOLO ALFARO Ot Z87.59 PERSONAL HISTORY OF COMP OF PREG, CHLDBR 09/04/2017 FAITH, JIGAR SWITCH BOX INSTALLER Ot E11.9 TYPE 2 DIABETES MELLITUS WITHOUT COMPLIC 09/04/2017 FAITH, JIGAR SWITCH BOX INSTALLER Ot G44.201 TENSION-TYPE HEADACHE, UNSPECIFIED, INTR 09/04/2017 FAITH, JIGAR SWITCH BOX INSTALLER Ot I10 ESSENTIAL (PRIMARY) HYPERTENSION 09/04/2017 FAITH, JIGAR SWITCH BOX INSTALLER Ot R51 HEADACHE 09/04/2017 FAITH, JIGAR SWITCH BOX INSTALLER Ot Z79.84 JAIL (CURRENT) USE OF ORAL HYPOGLYC 09/04/2017 FAITH, JIGAR SWITCH BOX INSTALLER Ot Z82.49 FAMILY HX OF ISCHEM HEART DIS AND OTH DI 09/04/2017 FAITH, JIGAR SWITCH BOX INSTALLER Ot Z87.01 PERSONAL HISTORY OF PNEUMONIA (RECURRENT 09/04/2017 FAITH, JIGAR SWITCH BOX INSTALLER Ot Z87.59 PERSONAL HISTORY OF COMP OF PREG, CHLDBR 09/04/2017 FAITH, JIGAR SWITCH BOX INSTALLER Ot Z88.5 ALLERGY STATUS TO NARCOTIC AGENT STATUS 09/04/2017 FAITH, JIGAR SWITCH BOX INSTALLER Ot Z88.8 ALLERGY STATUS TO OTH DRUG/MEDS/BIOL SUB 09/06/2017 FAITH JIGAR SWITCH BOX INSTALLER Ot E11.9 TYPE 2 DIABETES MELLITUS WITHOUT COMPLIC 09/06/2017 FAITH JIGAR SWITCH BOX INSTALLER Ot G44.201 TENSION-TYPE HEADACHE, UNSPECIFIED, INTR 09/06/2017 FAITH JIGAR SWITCH BOX INSTALLER Ot I10 ESSENTIAL (PRIMARY) HYPERTENSION 09/06/2017 FAITH JIGAR SWITCH BOX INSTALLER Ot R51 HEADACHE 09/06/2017 FAITH JIGAR SWITCH BOX INSTALLER Ot Z79.84 JAIL (CURRENT) USE OF ORAL HYPOGLYC 09/06/2017 FAITH JIGAR SWITCH BOX INSTALLER Ot Z82.49 FAMILY HX OF ISCHEM HEART DIS AND OTH DI 09/06/2017 FAITH JIGAR SWITCH BOX INSTALLER Ot Z87.01 PERSONAL HISTORY OF PNEUMONIA (RECURRENT 09/06/2017 JIGAR CUEVASP Ot Z87.59 PERSONAL HISTORY OF COMP OF PREG, CHLDBR 09/06/2017 JIGAR CUEVAS SWITCH BOX INSTALLER Ot Z88.5 ALLERGY STATUS TO NARCOTIC AGENT STATUS 09/06/2017 FAITH JIGAR SWITCH BOX INSTALLER Ot Z88.8 ALLERGY STATUS TO OTH DRUG/MEDS/BIOL SUB 09/08/2017 ALLEGRA VILLATORO APRN Ot B34 .9 VIRAL INFECTION, UNSPECIFIED 09/08/2017 ALLEGRA VILLATORO APRN Ot E11 .9 TYPE 2 DIABETES MELLITUS WITHOUT COMPLIC 09/08/2017 ALLEGRA VILLATORO APRN Ot I10 ESSENTIAL (PRIMARY) HYPERTENSION 09/08/2017 ALLEGRA VILLATORO APRN Ot R51 HEADACHE 09/08/2017 ALLEGRA VILLATORO APRN Ot Z79.84 MEASUREMENT DEPARTMENT CHIEF CLERK (CURRENT) USE OF ORAL HYPOGLYC 09/08/2017 ALLEGRA [...] HEADACHE 09/12/2017 ALLEGRA VILLATORO APRN Ot Z79.84 JAIL (CURRENT) USE OF ORAL HYPOGLYC 09/12/2017 ALLEGRA [...] MIGRAINE, UNSP, NOT INTRACTABLE, WITHOUT 09/15/2017 SOLO ALFAOR Ot I 10 ESSENTIAL (PRIMARY) HYPERTENSION 09/15/2017 [...] STATUS TO OTH DRUG/MEDS/BIOL SUB 10/05/2017 CARISA KHANP Ot N85.2 HYPERTROPHY OF UTERUS 10/18/2017 CARISA KHAN Ot N85.2 HYPERTROPHY OF UTERUS 11/03/2017 CARY ANGLIN INSTRUMENT LENS INSPECTOR Ot M79.605 PAIN IN LEFT LEG 11/03/2017 CARY ANGLIN INSTRUMENT LENS INSPECTOR Ot M79.605 PAIN IN LEFT LEG 11/03/2017 CARY ANGLIN INSTRUMENT LENS INSPECTOR Ot M79.605 PAIN IN LEFT LEG 11/15/2017 CARY ANGLIN INSTRUMENT LENS INSPECTOR Ot M79.605 PAIN IN LEFT LEG 12/05/2017 FELIX PICKETT ANDREEA K Ot E11.9 TYPE 2 DIABETES MELLITUS WITHOUT COMPLIC 12/05/2017 FELIX PICKETT ANDREEA K Ot E66.01 MORBID (SEVERE) OBESITY DUE TO EXCESS CA 12/05/2017 FELIX PICKETT ANDEREA K Ot G43.909 MIGRAINE, UNSP, NOT INTRACTABLE, WITHOUT 12/05/2017 FELIX DO ANDREEA K Ot I10 ESSENTIAL (PRIMARY) HYPERTENSION 12/05/2017 FELIX PICKETT ANDREEA K Ot R10.32 LEFT LOWER QUADRANT PAIN 12/05/2017 FELIX DO ANDREEA K Ot R11.2 NAUSEA WITH VOMITING, UNSPECIFIED 12/05/2017 FELIX DO ANDREEA K Ot R19.7 DIARRHEA, UNSPECIFIED 12/05/2017 FELIX DO ANDREEA K Ot Z68.43 BODY MASS INDEX (BMI) 50-59.9 , ADULT 12/05/2017 FELIX DO ANDREEA K Ot Z82.49 FAMILY HX OF ISCHEM HEART DIS AND OTH DI 12/05/2017 FELIX PICKETT ANDREEA K Ot Z87.01 PERSONAL HISTORY OF PNEUMONIA (RECURRENT 12/05/2017 ANDREEA WASHINGTON DO Ot Z87.59 PERSONAL HISTORY OF COMP OF PREG, CHLDBR 12/05/2017 FELIX PICKETT ANDREEA Swetha Ot Z88.5 ALLERGY STATUS TO NARCOTIC AGENT STATUS 12/05/2017 FELIX PICKETT ANDREEA K Ot Z88.8 ALLERGY STATUS TO OTH DRUG/MEDS/BIOL SUB 12/06/2017 FELIX PICKETT ANDREEA Swetha Ot E11.9 TYPE 2 DIABETES MELLITUS WITHOUT COMPLIC 12/06/2017 FELIX PICKETT ANDREEA K Ot E66.01 MORBID (SEVERE) OBESITY DUE TO EXCESS CA 12/06/2017 ANDREEA WASHINGTON DO Ot G43.909 MIGRAINE, UNSP, NOT INTRACTABLE, WITHOUT 12/06/2017 FELIX PICKETT ANDREEA Swetha Ot I10 ESSENTIAL (PRIMARY) HYPERTENSION 12/06/2017 FELIX PICKETT ANDREEA K Ot R10.32 LEFT LOWER QUADRANT PAIN 12/06/2017 FELIX PICKETT ANDREEA K Ot R11.2 NAUSEA WITH VOMITING, UNSPECIFIED 12/06/2017 FELIX PICKETT ANDREEA K Ot R19.7 DIARRHEA, UNSPECIFIED 12/06/2017 FELIX PICKETT ANDREEA K Ot Z68.43 BODY MASS INDEX (BMI) 50-59.9 , ADULT 12/06/2017 FELIX PICKETT ANDREEA Swetha Ot Z82.49 FAMILY HX OF ISCHEM HEART DIS AND OTH DI 12/06/2017 ANDREEA WASHINGTON DO Ot Z87.01 PERSONAL HISTORY OF PNEUMONIA (RECURRENT 12/06/2017 ANDREEA W[place] DO Ot Z87.59 PERSONAL HISTORY OF COMP OF PREG, CHLDBR 12/06/2017 FELIX ANDREEA K Ot Z88.5 ALLERGY STATUS TO NARCOTIC [...] 18 ENCOUNTER FOR OTHER PREPROCEDURAL EXAMIN 02/01/2018 LUIGI DO, EVELINA B Ot K62.5 HEMORRHAGE OF ANUS AND RECTUM 02/01/2018 HERNANDOMAN DO, EVELINA B Ot R19.7 DIARRHEA, UNSPECIFIED 02/01/2018 DELMAN DO, EVELINA B Ot Z01.8 18 ENCOUNTER FOR OTHER PREPROCEDURAL EXAMIN 02/02/2018 HERNANDOMAN DO, EVELINA B Ot K62.5 HEMORRHAGE OF ANUS AND RECTUM 02/02/2018 DELMAN DO, EVELINA B Ot R19.7 DIARRHEA, UNSPECIFIED 02/02/2018 DELMAN DO, EVELINA B Ot Z01.8 18 ENCOUNTER FOR OTHER PREPROCEDURAL EXAMIN 02/07/2018 HERNANDOMAN DO, EVELINA B Ot K62.5 HEMORRHAGE OF ANUS AND RECTUM 02/07/2018 DELMAN DO, EVELINA B Ot R19.7 DIARRHEA, UNSPECIFIED 02/07/2018 DELMAN DO, EVELINA B Ot Z01.8 18 ENCOUNTER FOR OTHER PREPROCEDURAL EXAMIN 02/08/2018 HERNANDOMAN DO, EVELINA B Ot E66.0 1 MORBID (SEVERE) OBESITY DUE TO EXCESS CA 02/08/2018 HERNANDOMAN DO, EVELINA B Ot G47.3 3 OBSTRUCTIVE SLEEP APNEA (ADULT) (PEDIATR 02/08/2018 LUIGI DO EVELINA B Ot I10 ESSENTIAL (PRIMARY) HYPERTENSION 02/08/2018 HERNANDOMAN DO, EVELINA B Ot K29.7 0 GASTRITIS, UNSPECIFIED, WITHOUT BLEEDING 02/08/2018 HERNANDOMAN DO, EVELINA B Ot K29.8 0 DUODENITIS WITHOUT BLEEDING 02/08/2018 HERNANDOMAN DO, EVELINA B Ot K44.9 DIAPHRAGMATIC HERNIA WITHOUT OBSTRUCTION 02/08/2018 HERNANDOMAN DO, EVELINA B Ot K57.3 0 DVRTCLOS OF LG INT W/O PERFORATION OR AB 02/08/2018 HERNANDOMAN DO, EVELINA B Ot K63.5 POLYP OF COLON 02/08/2018 HERNANDOMAN DO, EVELINA B Ot K64.8 OTHER HEMORRHOIDS 02/08/2018 DELMAN DO, EVELINA B Ot Z68.4 3 BODY MASS INDEX (BMI) 50-59.9 , ADULT 02/13/2018 LUIGI DO, EVELINA B Ot E66.0 1 MORBID (SEVERE) OBESITY DUE TO EXCESS CA 02/13/2018 LUIGI DO, EVELINA B Ot G47.3 3 OBSTRUCTIVE SLEEP APNEA (ADULT) (PEDIATR 02/13/2018 HERNANDOMAN DO, EVELINA B Ot I10 ESSENTIAL (PRIMARY) HYPERTENSION 02/13/2018 HERNANDOMAN DO, EVELINA B Ot K29.7 0 GASTRITIS, UNSPECIFIED, WITHOUT BLEEDING 02/13/2018 HERNANDOMAN DO, EVELINA B Ot K29.8 0 DUODENITIS WITHOUT BLEEDING 02/13/2018 HERNANDOMAN DO, EVELINA B Ot K44.9 DIAPHRAGMATIC HERNIA WITHOUT OBSTRUCTION 02/13/2018 LUIGI DO, EVELINA B Ot K57.3 0 DVRTCLOS OF LG INT W/O PERFORATION OR AB 02/13/2018 LUIGI PICKETT EVELINA B Ot K63.5 POLYP OF COLON 02/13/2018 LUIGI PICKETT, EVELINA B Ot K64.8 OTHER HEMORRHOIDS 02/13/2018 HERNANDOMAN DO, EVELINA B Ot Z68.4 3 BODY MASS INDEX (BMI) 50-59.9 , ADULT 04/14/2018 CHRISTOFER ERICKSON, TRELL Ruiz Ot M17.12 UNILATERAL PRIMARY OSTEOARTHRITIS, LEFT 04/14/2018 CHRISTOFER ERICKSON, TRELL Ruiz Ot M47.816 SPONDYLOSIS W/O MYELOPATHY OR RADICULOPA 04/26/2018 CHRISTOFER ERICKSON, TRELL Ruiz Ot M17.12 UNILATERAL PRIMARY OSTEOARTHRITIS, LEFT 04/26/2018 HUERTER MD, TRELL F Ot M47.816 SPONDYLOSIS W/O MYELOPATHY OR RADICULOPA 11/12/2018 CARISA KHAN Ot N85.2 HYPERTROPHY OF UTERUS 11/12/2018 CARY ANGLIN APRN Ot M79.605 PAIN IN LEFT LEG 11/12/2018 CHRISTOFER ERICKSON, TRELL Ruiz Ot M17.12 UNILATERAL PRIMARY OSTEOARTHRITIS, LEFT 11/12/2018 CHRISTOFER ERICKSON, TRELL Ruiz Ot M47.816 SPONDYLOSIS W/O MYELOPATHY OR RADICULOPA 11/14/2018 ANDREEA WASHINGTON DO Ot E11.9 TYPE 2 DIABETES MELLITUS WITHOUT COMPLIC 11/14/2018 ANDREEA WASHINGTON DO Ot E66.01 MORBID (SEVERE) OBESITY DUE TO EXCESS CA 11/14/2018 ANDREEA WASHINGTON DO Ot I10 ESSENTIAL (PRIMARY) HYPERTENSION 11/14/2018 ANDREEA WASHINGTON DO Ot K21.9 GASTRO-ESOPHAGEAL REFLUX DISEASE WITHOUT 11/14/2018 ANDREEA WASHINGTON DO Ot M79.605 PAIN IN LEFT LEG 11/14/2018 ANDREEA WASHINGTON DO Ot M79.662 PAIN IN LEFT LOWER LEG 11/14/2018 ANDREEA WASHINGTON DO Ot Z68.44 BODY MASS INDEX (BMI) 60.0-69.9, ADULT 11/14/2018 ANDREEA WASHINGTON DO Ot Z79.51 JAIL (CURRENT) USE OF INHALED STERO 11/14/2018 ANDREEA WASHINGTON DO Ot Z79.84 JAIL (CURRENT) USE OF ORAL HYPOGLYC 11/14/2018 ANDREEA WASHINGTON DO Ot Z82.49 FAMILY HX OF ISCHEM HEART DIS AND OTH DI 11/14/2018 ANDREEA WASHINGTON DO, Ot Z87.01 PERSONAL HISTORY OF PNEUMONIA (RECURRENT 11/14/2018 ANDREEA WASHINGTON DO Ot Z87.19 PERSONAL HISTORY OF OTHER DISEASES OF TH 11/14/2018 ANDREEA WASHINGTON DO Ot Z88.5 ALLERGY STATUS TO NARCOTIC AGENT STATUS 11/14/2018 ANDREEA WASHINGTON DO Ot Z88.8 ALLERGY STATUS TO OTH DRUG/MEDS/BIOL SUB 11/14/2018 ANDREEA WASHINGTON DO Ot Z98.890 OTHER SPECIFIED POSTPROCEDURAL STATES 11/18/2018 ANDREEA WASHINGTON DO K Ot E11.9 TYPE 2 DIABETES MELLITUS WITHOUT COMPLIC 11/18/2018 FELIX ANDREEA PICKETT Ot E66.01 MORBID (SEVERE) OBESITY DUE TO EXCESS CA 11/18/2018 FELIX ANDREEA Posada Ot I10 ESSENTIAL (PRIMARY) HYPERTENSION 11/18/2018 [place] ANDREEA Posada Ot K21.9 GASTRO-ESOPHAGEAL REFLUX DISEASE WITHOUT 11/18/2018 [facility] [facility] Ot M79.605 PA[facility] IN LEFT LE[facility]662 PAIN IN LEFT LOWER LEG 11/18/2018 [facility] ANDREEA Posada Ot Z68.44 BODY MASS INDEX (BMI) 60.0-69.9, ADULT 11/18/2018 [facility] ANDREEA Posada Ot Z79.51 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 DEPARTMENT CHIEF CLERK (CURRENT) USE OF INHALED STERO 11/18/2018 [facility] ANDREEA Posada Ot Z79.84 JAIL (CURRENT) USE OF ORAL HYPOGLYC 11/18/2018 [facility] ANDREEA Posada Ot Z82.49 FAMILY HX OF ISCHEM HEART DIS AND OTH DI 11/18/2018 [facility] ANDREEA Posada Ot Z87.01 PERSONAL HISTORY OF PNEUMONIA (RECURRENT 11/18/2018 [facility] ANDREEA Posada Ot Z87.19 PERSONAL HISTORY OF OTHER DISEASES OF TH 11/18/2018 [facility] ANDREEA Posada Ot Z88.5 ALLERGY STATUS TO NARCOTIC AGENT STATUS 11/18/2018 [place] ANDREEA Posada Ot Z88.8 ALLERGY STATUS TO OTH DRUG/MEDS/BIOL SUB 11/18/2018 [place] ANDREEA Posada Ot Z98.890 OTHER SPECIFIED POSTPROCEDURAL STATES 12/07/2018 CARISA KHAN Ot M51.37 OTHER INTERVERTEBRAL DISC DEGENERATION, 12/08/2018 ALINE DECKER MD Ot D64.9 ANEMIA, UNSPECIFIED 12/08/2018 ALINE DECKER MD, Ot E11.9 TYPE 2 DIABETES MELLITUS WITHOUT COMPLIC 12/08/2018 ALINE DECKER MD Ot E66.01 MORBID (SEVERE) OBESITY DUE TO EXCESS CA 12/08/2018 ALINE DECKER MD Ot I10 ESSENTIAL (PRIMARY) HYPERTENSION 12/08/2018 ALINE DECKER MD, Ot K21.9 GASTRO-ESOPHAGEAL REFLUX DISEASE WITHOUT 12/08/2018 ALINE DECKER MD, Ot M48.061 SPINAL STENOSIS, LUMBAR REGION WITHOUT N 12/08/2018 ALINE DECKER MD, Ot M51.26 OTHER INTERVERTEBRAL DISC DISPLACEMENT, 12/08/2018 ALINE DECKER MD, Ot M54.5 LOW BACK PAIN 12/08/2018 ALINE DECKER MD, Ot N83.202 UNSPECIFIED OVARIAN CYST, LEFT SIDE 12/08/2018 ALINE DECKER MD, Ot Z79.51 JAIL (CURRENT) USE OF INHALED STERO 12/08/2018 ALINE DECKER MD, Ot Z79.52 JAIL (CURRENT) USE OF SYSTEMIC STER 12/08/2018 ALINE DECKER MD, Ot Z79.84 JAIL (CURRENT) USE OF ORAL HYPOGLYC 12/08/2018 ALINE DECKER MD, Ot Z82.49 FAMILY HX OF ISCHEM HEART DIS AND OTH DI 12/08/2018 ALINE DECKER MD, Ot Z87.01 PERSONAL HISTORY OF PNEUMONIA (RECURRENT 12/08/2018 ALINE DECKER MD, Ot Z87.19 PERSONAL HISTORY OF OTHER DISEASES OF TH 12/08/2018 ALINE DECKER MD, Ot Z87.440 PERSONAL HISTORY OF URINARY (TRACT) INFE 12/08/2018 ALINE DECKER MD, Ot Z88.5 ALLERGY STATUS TO NARCOTIC AGENT STATUS 12/08/2018 ALINE DECKER MD, Ot Z88.8 ALLERGY STATUS TO OT DRUG/MEDS/BIOL SUB 12/08/2018 ALINE DECKER MD, Ot [...] ADULT 12/13/2018 ALLEGRA VILLATORO APRN Ot Z79.51 MEASUREMENT DEPARTMENT CHIEF CLERK (CURRENT) USE OF INHALED STERO 12/13/2018 ALLEGRA VILLATORO APRN Ot Z79.52 MEASUREMENT DEPARTMENT CHIEF CLERK (CURRENT) USE OF SYSTEMIC STER 12/13/2018 ALLEGRA [...] .8 ALLERGY STATUS TO OTH DRUG/MEDS/BIOL SUB 12/13/2018 ALLEGRA VILLATORO APRN Ot [...] PAIN 04/06/2019 ALLEGRA VILLATORO APRN Ot Z79.51 MEASUREMENT DEPARTMENT CHIEF CLERK (CURRENT) USE OF INHALED STERO 04/06/2019 ALLEGRA VILLATORO APRN Ot Z79.52 JAIL (CURRENT) USE OF SYSTEMIC STER 04/06/2019 ALLEGRA VILLATORO APRN Ot Z79.84 MEASUREMENT DEPARTMENT CHIEF CLERK (CURRENT) USE OF ORAL HYPOGLYC 04/06/2019 ALLEGRA VILLATORO APRN Ot Z82.49 FAMILY HX OF ISCHEM HEART DIS AND OTH DI 04/06/2019 ALLEGRA VILLATORO APRN Ot Z87.440 PERSONAL HISTORY OF URINARY (TRACT) INFE 04/06/2019 ALLEGRA VILLATORO APRN Ot Z88 .5 ALLERGY STATUS TO NARCOTIC AGENT STATUS 04/06/2019 ALLEGRA VILLATORO APRN Ot Z88 .8 ALLERGY STATUS TO [facility] DRUG/MEDS/BIOL SUB 04/07/2019 ALLEGRA VILLATORO APRN Ot [...] STERO 04/07/2019 ALLEGRA VILLATORO APRN Ot Z79.52 JAIL (CURRENT) USE OF SYSTEMIC STER 04/07/2019 ALLEGRA VILLATORO APRN Ot Z79.84 JAIL (CURRENT) USE OF ORAL HYPOGLYC 04/07/2019 ALLEGRA VILLATORO APRN Ot Z82.49 FAMILY HX OF ISCHEM HEART DIS AND OTH DI 04/07/2019 ALLEGRA VILLATORO APRN Ot Z87.440 PERSONAL HISTORY OF URINARY (TRACT) INFE 04/07/2019 ALLEGRA VILLATORO APRN Ot Z88 .5 ALLERGY STATUS TO NARCOTIC AGENT STATUS 04/07/2019 ALLEGRA VILLATORO APRN Ot Z88 .8 ALLERGY STATUS TO OTH DRUG/MEDS/BIOL SUB 09/26/2019 ALLEGRA VILLATORO APRN Ot E11 .9 TYPE 2 DIABETES MELLITUS WITHOUT COMPLIC 09/26/2019 ALLEGRA VILLATORO APRN Ot E66.01 MORBID (SEVERE) OBESITY DUE TO EXCESS CA 09/26/2019 ALLEGRA VILLATORO APRN Ot I10 ESSENTIAL (PRIMARY) HYPERTENSION 09/26/2019 ALLEGRA VILLATORO APRN, Ot K21 .9 GASTRO-ESOPHAGEAL REFLUX DISEASE WITHOUT 09/26/2019 ALLEGRA VILLATORO APRN, Ot S00.83XA CONTUSION OF OTHER PART OF HEAD, INITIAL 09/26/2019 ALLEGRA VILLATORO APRN Ot W01.198A FALL SAME LEV FROM SLIP/TRIP W STRIKE AG 09/26/2019 ALLEGRA VILLATORO APRN Ot Z68.43 BODY MASS INDEX (BMI) 50.0-59.9, ADULT 09/26/2019 ALLEGRA VILLATORO APRN Ot Z79.51 MEASUREMENT DEPARTMENT CHIEF CLERK (CURRENT) USE OF INHALED STERO 09/26/2019 ALLEGRA VILLATORO APRN Ot Z79.84 JAIL (CURRENT) USE OF ORAL HYPOGLYC 09/26/2019 ALLEGRA VILLATORO APRN Ot Z82.49 FAMILY HX OF ISCHEM HEART DIS AND OTH DI 09/26/2019 ALLEGRA VILLATORO APRN Ot Z88 .5 ALLERGY STATUS TO NARCOTIC AGENT STATUS 09/26/2019 ALLEGRA VILLATORO APRN Ot Z88 .8 ALLERGY STATUS TO OTH DRUG/MEDS/BIOL SUB Procedures Code Description [place] [address] PAP SMEAR 09/04/2012 Q0091 PAP SMEAR OBTAIN SMEAR 09/04/2012 82358 ROUT INE VENIPUNCTURE 11/22/2012 93989 A1C (IN-HOUSE) 11/22/2012 08558 CMP 11/22/2012 8162088 GF R CALC (RESULT ONLY) 11/22/2012 96171 TSH 11/22/2012 31008 EKG, TRACING (IN-HOUSE) 11/23/2012 19455 INSU RUFINO LEVEL 11/23/[address] A BDOMEN W/ CONTRAST 05/16/2013 84733 US A BDOMEN ULTRASOUND, LIMITED (SPECIFY ORGAN) 06/20/2013 81087 ROUT INE VENIPUNCTURE 10/10/2013 54116 CBC 10/10/2013 [id number] GF R CALC (RESULT ONLY) 10/10/2013 54379 CMP 10/10/2013 44565 TSH 10/10/2013 13091 INSU RUFINO LEVEL 10/10/2013 20288 STRE P A (IN-HOUSE) 12/27/2013 50280 UA W / CULTURE IF INDICATED 01/03/2014 42478 CULT URE URINE 01/05/2014 J1885 YANA DOL INJ 03/08/2014 82645 THER APUTIC INJ SQ/IM 03/08/2014 40446 ROUT INE VENIPUNCTURE 10/14/2014 92108 A1C (IN-HOUSE) 10/14/2014 08274 CMP 10/14/2014 5675931 GF R CALC (RESULT ONLY) 10/14/2014 21059 INSU RUFINO LEVEL 10/14/2014 Results Test Result [...] culture - 06/12/16 17:00 Bacterial urine culture [id number] NRG COLONY COUNT 10,000/ML - 100,000/ML NRG FTX;REPORTABLE SENSITIVITY REPORTED AT 1621, 06-13 NRG URINE CULTURE RESULTS PLUS NRG Bacterial [...] 4:20 THYROID STIMULATING HORMONE 2.20 u[iU]/mL 0.35-4.94 CBC With Differential/Platelet - 6 16:32 WBC 9.4 x10E3/uL 3.4-10.8 RBC 5.24 x10E6/uL 3.77-5.28 Hemoglobin 13.3 g/dL 11.1-15.9 Hematocrit 41.4 % 34.0-46.6 MCV 79 fL 79-97 MCH 25.4 pg 26.6-33.0 MCHC 32.1 g/dL 31.5-35.7 RDW 14.9 % 12.3-15.4 Platelets 301 x10E3/uL 150-379 Neutrophils 59 % Lymphs 31 % Monocytes 7 % Eos 3 % Basos 0 % Neutrophils (Absolute) 5.5 x10E3/uL 1.4- 7.0 Lymphs (Absolute) 2.9 x10E3/uL 0.7-3.1 Monocytes(Absolute) 0.6 x10E3/uL 0.1-0.9 Eos (Absolute) 0.3 x10E3/uL 0.0-0.4 Baso (Absolute) 0.0 x10E3/uL 0.0-0.2 Immature Granulocytes 0 % Immature Grans (Abs) 0.0 x10E3/uL 0.0-0. 1 Comp. Metabolic Panel (14) - 06/21/16 16 :32 Glucose, Serum 84 mg/dL 65-99 BUN 7 mg/dL 6-24 Creatinine, Serum 0.75 mg/dL 0.57-1.00 eGFR If NonAfricn Am 100 mL/min/1.73 >59 eGFR If Africn Am 115 mL/min/1.73 >5 9 BUN/Creatinine Ratio 9 9-23 Sodium, Serum 140 mmol/L 136-144 Potassium, Serum 4.2 mmol/L 3.5-5.2 Chloride, Serum 99 mmol/L 97-106 Carbon Dioxide, Total 23 mmol/L 18-29 Calcium, Serum 10.0 mg/dL 8.7-10.2 Protein, Total, Serum 7.8 g/dL 6.0-8.5 Albumin, Serum 4.6 g/dL 3.5-5.5 Globulin, Total 3.2 g/dL 1.5-4.5 A/G Ratio 1.4 1.1-2.5 Bilirubin, Total 0.3 mg/dL 0.0-1.2 Alkaline Phosphatase, S 53 IU/L 39-117 AST (SGOT) 21 IU/L 0-40 ALT (SGPT) 21 IU/L 0-32 Complete blood count (CBC) with automate d [...] measurement (mass/v olume) 10.40 mg/dL 0.00-0.50 Urine Culture, Routine - 12/16/16 08:49 Urine Culture, Routine Note Urine beta human chorionic gonadotropin (hCG) measurement [...] culture - 02/06/17 23:41 Bacterial urine culture [id number] NRG COLONY COUNT >100,000/ML NRG FTX;REPORTABLE PLUS, NRG FREE TEXT ENTRY 2 MIXED DENISSE <10,000/ML NRG CULTURE, URINE - 05/15/17 15:02 Urine Culture, Routine Final report NRG Result 1 NRG Urine Culture, Routine - 05/15/17 15:02 Urine Culture, Routine Note CMP - 07/07/17 13:21 GLUCOSE 82 mg/dL 65-99 UREA NITROGEN (BUN) 12 mg/dL 7-25 CREATININE 0.70 mg/dL 0.50-1.10 eGFR NON-AFR. SURINAMESE 108 mL/min/1.73m2 > OR = 60 eGFR [...] - 06/08/19 10:34 FERRITIN 15 ng/mL 16-232 Coronavirus SARS-CoV-2 SO 2019 - 0 13:54 Coronavirus Ab [Units/volume] in Serum Negative Negative Encounters ACCT No. Visit Date/Time Discharge Status Pt. Type Provider Facility Loc./Unit Complaint [id number] 12/18/2016 20:06:00 Document Registration [id number] 09/27/2019 13:45:00 09/27/2019 23:59: 59 CLS Outpatient CARISA KHAN APRN [facility] [id number] 06/08/2019 10:40:00 Document Registration [id number] 05/08/2018 17:45:00 Document Registration [id number] 11/30/2017 15:40:00 Document Registration [id number] 09/12/2017 09:40:00 Document Registration [id number] 07/07/2017 13:20:00 Document Registration [id number] 05/15/2017 13:10:00 Document Registration [id number] 12/14/2019 07:56:00 020 14:31:00 DIS Outpatient FEDERICA ERICKSON, BAUDILIO Parks [facility] PREOP LEFT KNEE MEDIAL MENIS CUS [id number] 09/21/2019 08:58:00 020 11:38:00 DIS Outpatient ALLEGRA VILLATORO APRN [facility] ER FALL;NOSE INJ [id number] 04/04/2019 15:13:00 019 17:13:00 DIS Outpatient ALLEGRA VILLATORO APRN [facility] ER RT ABDOMEN PAIN [id number] 12/07/2018 15:54:00 019 17:07:00 DIS Outpatient ALLEGRA VILLATORO APRN [facility] ER HEADACHE [id number] 12/06/2018 15:37:00 019 23:59:59 CLS Outpatient CARISA KHANP [facility] RAD PAIN OF LEFT LOWER LEG [id number] 12/04/2018 02:27:00 05/20/2 019 05:43:00 DIS Outpatient BRIANNE ERICKSON, ALINE Burris [facility] ER LOWER BACK PAIN AND STOMACH [id number] 11/16/2018 12:00:00 019 23:59:59 CLS Preadmit ANDREEA WASHINGTON DO [facility] RAD L CALF PAIN [id number] 11/12/2018 21:22:00 019 23:00:00 DIS Outpatient ANDREEA WASHINGTON DO, V [facility] ER PAIN IN LEFT LEG [id number] 04/13/2018 16:47:00 018 23:59:59 CLS Outpatient CHRISTOFER ERICKSON, TRELL Ruiz [facility] RAD M54.5,M25.562 [id number] 02/08/2018 12:38:00 018 15:40:00 DIS Outpatient EVELINA MEYERS DO [facility] ENDO BLOOD IN STOOL/REFLUX [id number] 02/01/2018 05:41:00 018 14:57:00 DIS Outpatient EVELINA MEYERS DO [facility] PREOP COLONOSCOPY [id number] 01/12/2018 07:30:00 018 23:59:59 CLS Preadmit BAUDILIO NAGY DO [facility] SDC ABNORMAL UTERINE BLEEDI NG [id number] 01/02/2018 06:40:00 018 13:16:00 DIS Outpatient LAN ERICKSON, EDUARDO Andrea [facility] PREOP COLONOSCOPY [id number] 12/04/2017 23:23:00 018 03:02:00 DIS Emergency ANDREEA WASHINGTON DO a [facility] ER L SIDE PAIN/VOMITING/DI ARRHEA [id number] 11/02/2017 19:11:00 018 23:59:59 CLS Outpatient CARY ANGLIN APRN [facility] RAD LEFT LEG PAIN [id number] 10/04/2017 09:43:00 018 23:59:59 CLS Outpatient BILL CARISA REVELES [facility] RAD MENORRHAGIA W/ IRREGUL AR CYCLE [id number] 09/23/2017 14:00:00 018 23:59:59 CLS Preadmit BILL CARISA REVELES [facility] RAD N92.1 MENORRHAGIA W/IRR EGULAR CYCLE [id number] 09/13/2017 17:01:00 018 20:21:00 DIS Emergency SOLO ALFARO [facility] ER SEVERE ABD PAIN [id number] 09/08/2017 17:05:00 018 19:50:00 DIS Emergency ALLEGRA VILLATORO APRN [facility] ER HEADACHE/NEW RX/WEAKNES S [id number] 09/04/2017 10:35:00 018 13:05:00 DIS Emergency JIGAR CUEVAS [facility] ER HEADACHE [id number] 03/05/2017 13:40:00 017 15:53:00 DIS Emergency SOLO ALFARO [facility] ER POSS SPIDER BITE ON RT ANKLE [id number] 02/06/2017 22:43:00 017 00:34:00 DIS Emergency ANDREEA WASHINGTON DO [facility] ER L SIDE PAIN [id number] 02/05/2017 10:06:00 017 12:50:00 DIS Emergency ALLEGRA VILLATORO APRN [facility] ER L SIDE BACK PAIN [id number] 12/04/2016 14:45:00 017 15:53:00 DIS Emergency ALLEGRA VILLATORO APRN [facility] ER FALL, L ARM/ELBOW INJ [id number] 07/13/2016 13:25:00 016 16:49:00 DIS Emergency LEIGHA OSBORN MD [facility] ER HEADACHE/FLU SYMPTOMS [id number] 06/12/2016 17:38:00 016 18:30:00 DIS Inpatient JOCELYN MD, TORRES Correa [facility] ICU ACS ROLE OUT, 2ND PREFE RENCE CHEST PAIN [id number] 10/28/2014 23:14:00 00:56:00 DIS Emergency ANDREEA WASHINGTON DO Colleen sepulveda [facility] ER ALLERGIC RXN TO ONIONS [id number] 02/10/2014 20:42:00 014 23:10:00 DIS Emergency RADHA ERICKSON, ENMA Posada [facility] ER HEADACHE [id number] 09/19/2013 08:17:00 23:59:59 CLS Outpatient CARISA KHAN [facility] RAD HEPATIC CYST [id number] 12/19/2019 08:00:00 P EN Preadmit FEDERICA ERICKSON, BAUDILIO Parks [facility] SDC LEFT KNEE MEDIAL MENISCUS TE AR [id number] 08/01/2013 08:54:00 Document Registration [id number] 05/21/2013 08:56:00 Document Registration [id number] 05/16/2013 15:57:00 Document Registration [id number] 01/22/2013 22:21:00 Document Registration [id number] 11/27/2012 16:36:00 Document Registration [id number] 11/22/2012 19:33:00 Document Registration [id number] 11/22/2012 11:17:00 Document Registration [id number] 11/16/2012 21:28:00 Document Registration [id number] 05/12/2012 17:46:00 Document Registration [id number] 04/06/2012 21:45:00 Document Registration [id number] 07/01/2011 11:18:00 Document Registration [id number] 08/01/2013 08:54:00 10:10:00 DIS Emergency [id number] 05/21/2013 08:56:00 23:59:59 CLS Outpatient [id number] 05/16/2013 15:57:00 23:59:59 CLS Outpatient [id number] 01/22/2013 22:21:00 01:19:00 DIS Emergency [id number] 11/27/2012 16:36:00 20:10:00 DIS Emergency [id number] 11/22/2012 19:33:00 23:33:00 DIS Emergency [id number] 11/22/2012 11:17:00 12:50:00 DIS Emergency [id number] 11/16/2012 21:28:00 23:27:00 DIS Emergency [id number] 06/22/2016 08:39:00 Document Registration [id number] 05/18/2017 03:08:00 Document Registration [id number] 10/30/2014 14:05:00 10/30/2014 23:59: 59 CLS Outpatient CARISA KHAN APRN S [id number] 10/14/2014 08:34:00 10/14/2014 23:59: 59 CLS Outpatient CARISA KHAN APRN S [id number] 09/25/2014 13:52:00 09/25/2014 23:59: 59 CLS Outpatient CARISA KHAN APRN S [id number] 03/08/2014 13:20:00 03/08/2014 23:59: 59 CLS Outpatient BALBIR MORRISSEY APRN [id number] 02/18/2014 11:27:00 02/18/2014 23:59: 59 CLS Outpatient CARISA KHAN APRN S [id number] 01/03/2014 08:43:00 01/03/2014 23:59: 59 CLS Outpatient RUTH DOVER APRN [id number] 12/27/2013 12:02:00 12/27/2013 23:59: 59 CLS Outpatient BALBIR MORRISSEY APRN [id number] 10/10/2013 08:08:00 10/10/2013 23:59: 59 CLS Outpatient CARISA KHAN APRN S [id number] 06/18/2013 14:53:00 06/18/2013 23:59: 59 CLS Outpatient CARISA KHAN APRN S [id number] 06/04/2013 12:30:00 06/04/2013 23:59: 59 CLS Outpatient BALBIR MORRISSEY APRN Jose Cruz [id number] 05/16/2013 14:42:00 05/16/2013 23:59: 59 CLS Outpatient NAHOMY PETERSON DO [id number] 09/04/2012 09:39:00 09/04/2012 23:59: 59 CLS Outpatient NAHOMY PETERSON DO [id number] 08/16/2012 08:18:00 08/16/2012 23:59: 59 CLS Outpatient [id number] 05/16/2012 10:33:00 05/16/2012 23:59:5 9 CLS Outpatient BILL FISHER CARISA Rosario [id number] 03/01/2013 13:28:00 Document Registration [id number] 01/09/2013 11:33:00 Document Registration [id number] 11/23/2012 13:01:00 Document Registration [id number] 11/07/2012 12:42:00 Document Registration
[2019-12-19] MEDS ORDERED: LACTATED RINGERS 1,000 ML IV PRN (08:05)
[2019-12-19] MEDS ORDERED: ceFAZolin INJECTION 1,000 MG in WATER (STERILE) FOR INJECTION 10 ML IV ONE (08:15)
[2019-12-19] MEDS ORDERED: morphine PF (DURAMORPH) 10 MG/10 ML AMP ONE (09:20)
[2019-12-19] MEDS ORDERED: BUPIVACAINE 0.25% 30 ML (SENSORCAINE) VIAL ONE (09:20)
[2019-12-19] MEDS ORDERED: LIDOCAINE PF 2% 5 ML (XYLOCAINE) VIAL ONE (09:31)
[2019-12-19] MEDS ORDERED: proPOfol 200 MG/20 ML (DIPRIVAN) VIAL IV ONE ×2 (09:31→09:58)
[2019-12-19] MEDS ORDERED: MIDAZOLAM 2 MG/2 ML (VERSED) VIAL ONE (09:32)
[2019-12-19] MEDS ORDERED: fentaNYL INJECTION 100 MCG/2 ML AMP ONE ×2 (09:32→10:33)
[2019-12-19] MEDS ORDERED: SEVOFLURANE (ULTANE) 15 ML INHAL SOLN ONE (09:58)
[2019-12-19] MEDS ORDERED: ONDANSETRON 4 MG/2 ML (SDV) Z0FRAN ONE ×2 (09:59→10:33)
--- NOTE | 2019-12-19 10:25 | Progress Note-Post Operative ---
Post-Operative Progess Note Surgeon (s)/Photographic Restorer (s) Surgeon BAUDILIO STALLWORTH MD Photographic Restorer: Gaye Pre-Operative Diagnosis left knee medial meniscus tear and chondromalacia Post-Operative Diagnosis left knee medial and lateral meniscus tears and chondromalacia of the medial femoral condyle, lateral tibial plateau, patella and trochlea Procedure & Operative Findings Date of Procedure 12/19/19 Procedure Performed/Findings left knee arthroscopic partial medial and lateral meniscectomies and chondroplasty of the medial femoral condyle, lateral tibial plateau, patella and trochlea Anesthesia Type GETA Estimated Blood Loss Estimated blood loss (mL): minimal Specimens/Packing Specimens Removed none Packing: none BAUDILIO STALLWORTH MD Dec 19, 2019 10:25
[2019-12-19] MEDS ORDERED: morphine INJ 10 MG/ML 1ML (SYR OR VIAL) IVP ONE (10:30)
[2019-12-19] MEDS ORDERED: fentaNYL INJECTION 100 MCG/2 ML AMP IVP ONE (10:30)
[2019-12-19] MEDS ORDERED: ONDANSETRON 4 MG/2 ML (SDV) Z0FRAN IVP PRN (10:30)
[2019-12-19] MEDS ORDERED: morphine INJ 10 MG/ML 1ML (SYR OR VIAL) ONE (10:33)
--- NOTE | 2019-12-19 11:30 | NUR ---
TO AMB SURG FROM PAR PER CART. ON O2 PER MASK AT 2L PER NC. RATES LEFT KNEE PAIN 2. JAMES WRAPPED DSG D/I TO RIGHT KNEE, ELEVATED, ICE PACK ON. CMS CHECKS WNL TO LEFT LEG. C/O NAUSEA ON ARRIVAL, DROWSY, BUT AWAKENS EASILY.
--- NOTE | 2019-12-19 12:02 | Anesthesia-General Post-Op ---
General Patient Condition Mental Status/LOC: Same as Preop Cardiovascular: Satisfactory Nausea/Vomiting: Absent Respiratory: Satisfactory Pain: Controlled Complications: Absent Post Op Complications Complications None Follow Up Care/Instructions Patient Instructions None needed. Anesthesia/Patient Condition Patient Condition Patient is doing well, no complaints, stable vital signs, no apparent adverse anesthesia problems. No complications reported per nursing. STEPH RUBIO CRNA Dec 19, 2019 12:02
--- NOTE | 2019-12-19 12:07 | NUR ---
CONTINUES TO C/O INTERMITTENT MILD TO MODERATE NAUSEA. ORDER RECEIVED AND ZOFRAN 4 MG GIVEN IV. NO CHANGE IN CMS, PAIN OR SURGICAL SITE ASSESSMENTS. REMAINS DROWSY, BUT RESPONDS APPROPRIATELY, AWAKENS EASILY.
[2019-12-19] MEDS ORDERED: ONDANSETRON 4 MG/2 ML (SDV) Z0FRAN IVP ONE (12:15)
[2019-12-19] MEDS ORDERED: HYDR-4342 PO (12:51)
--- NOTE | 2019-12-19 13:00 | NUR ---
HAS BEEN RESTING QUIETLY IN BED. REPORTS NAUSEA "BETTER". MORE ALERT. NO CHANGE IN PAIN, CMS, SITE ASSESSMENTS. PHYSICAL THERAPY HERE TO WORK WITH PT.
--- NOTE | 2019-12-19 13:27 | NUR ---
PT HAS WALKER AND CRUTCHES AT HOME FOR USE. READY FOR DISMISSAL.
--- NOTE | 2019-12-19 13:34 | Physical Therapy Ortho Eval ---
PT Orthopedic Evaluation Type of Surgery Knee Scope left side, WBAT Prior Level of Function Current Living Status: Significant Other Locomotion (Upon Admit): Independent Established Durable Medical Eq: Front Wheeled Walker Subjective Subjective Patient in bed pre tx, agrees to PT, has 3/10 pain in left leg. Entry Into Home: Stairs With Railing Steps Into Home: 3 Motor Control Motor Control: Motor Control WNL Transfer Transfers (B, C, W/C) (FIM): 4 Gait Gait Assistive Device: FWW Left Lower Extremity: Left Weight Bearing Status LLE: Weight Bearing/Tolerated Distance: 80' Summary/Comments Patient ambulated 40' with a rolling walker with CGA, gait is antalgic but she is able to bear weight on her left leg. Treatment Rendered Treatment: Therapeutic Exercises, Gait Train, Step Train Exercise Instruction: Quad Sets, Heel Slides, Ankle Pumps Assessment/Goals Goal Time Frame: 1 Visit Understands HEP: Yes Safe Ambulation: Yes Plan Treatment Plan: Discharge PT/Family Agrees to Plan: Yes Time Time In: 1305 Time Out: 1320 Total Billed Treatment Time: 15 Billed Treatment Time 1 visit ALEX 15' PRITI MONTES PT Dec 19, 2019 13:34
--- NOTE | 2019-12-19 14:36 | OPERATIVE REPORT ---
DATE OF SERVICE: PREOPERATIVE DIAGNOSES: 1. Left knee medial meniscus tear. 2. Left knee lateral meniscus tear. 3. Left knee chondromalacia of the medial femoral condyle. 4. Left knee chondromalacia of patella. POSTOPERATIVE DIAGNOSES: 1. Left knee medial meniscus tear. 2. Left knee lateral meniscus tear. 3. Left knee chondromalacia of the medial femoral condyle. 4. Left knee chondromalacia of patella. 5. Left knee chondromalacia of the lateral tibial plateau. 6. Left knee chondromalacia of the trochlea. PROCEDURES: 1. Left knee arthroscopic partial medial meniscectomy. 2. Left knee arthroscopic partial lateral meniscectomy. 3. Left knee arthroscopic chondroplasty of the medial femoral condyle. 4. Left knee arthroscopic chondroplasty of the patella. 5. Left knee arthroscopic chondroplasty of the lateral tibial plateau. 6. Left knee arthroscopic chondroplasty of the trochlea. SURGEON: Maurilio Stallworth MD OFFICE SECRETARY: Sylvester Hartman, who assisted throughout the procedure and closed the incisions. ANESTHESIA: General endotracheal by Anca Cochran CRNA. TOURNIQUET TIME: . ESTIMATED BLOOD LOSS: Minimal. DRAINS: None. COMPLICATIONS: None. POSTOPERATIVE PLAN: Routine arthroscopy protocol. The patient was transferred to the recovery room awake and in stable condition. STATEMENT OF MEDICAL NECESSITY: The patient is a 44-year-old female with complaints of left knee pain, catching, locking and swelling. She was tender along her medial joint line. She had pain medially with Ken's. She also had patellofemoral crepitus and pain with patellar loading. Due to functional impairment and failure to improve with conservative measures, the patient elected to proceed with surgical intervention. Examination under anesthesia revealed range of motion of 0/0/135. She was ligamentously stable in all planes. The patella tracked well. Arthroscopic findings patella demonstrated grade II chondral flaps inferiorly in a 10 x 10 area. The trochlea demonstrated grade III chondral flap superiorly in a 10 x 10 area. The medial and lateral gutters were clear. The ACL and PCL were intact. The medial compartment demonstrated grade IV chondral loss on the medial aspect of the tibial plateau in a 8 x 8 area with adjacent medial meniscus tear involving the body and posterior horn approximately 1/3 of each. In addition, there were grade III chondral flaps of the central portion of the femoral condyle in a 20 x 20 area. The lateral compartment demonstrated a tear of the body of the lateral meniscus involving approximately 20% of the body and grade III chondral flaps of the central portion of the tibial plateau in a 8 x 8 area. PROCEDURE IN DETAIL: After risks and benefits of procedure were discussed and questions were answered, informed consent was signed and placed on the chart. The operative site was confirmed in preoperative holding area initialed by the surgeon. The patient was then transferred to the operating room. After adequate levels of general endotracheal anesthetic were obtained, a timeout was called, confirming the operative site. The left lower extremity was prepped and draped in the usual sterile fashion. The knee joint was injected with 60 mL of fluid and a standard lateral portal was placed for the arthroscope under direct visualization, inferior medial portal was created. The menisci and cruciates carefully probed with the above findings noted. The unstable chondral flaps in the patella and trochlea were debrided with shaver back to a stable edge. Scope was redirected into the medial compartment and unstable chondral flaps of the medial femoral condyle were debrided with shaver back to a stable edge and the medial meniscus was debrided with a biter and shaver removing approximately one-third of the posterior horn and body. Scope was redirected into the lateral compartment and unstable chondral flaps in lateral tibial plateau were debrided with a shaver back to a stable edge and the body of the lateral meniscus was debrided with shaver back to a stable edge. The knee was copiously irrigated. The portal sites were closed with 4-0 nylon in simple interrupted fashion. The knee was injected with Duramorph. Port sites were infiltrated with plain Marcaine. A soft dressing was applied and the patient was transferred to the recovery room awake and in stable condition. Job ID: [id number] DocumentID: [id number] Dictated Date: 12/19/2019 10:23:37 Locker Room Attendant Date: 12/19/2019 14:35:41 Dictated By: MAURILIO STALLWORTH MD
== END 2019-12-19 17:49 | disposition home or self-care (01) ==
LOC: SDC 07:16
PROVIDERS: ATTEND Orthopaedic Surgery
DX: S83.282A Other tear of lateral meniscus, current injury, left knee, initial encounter (principal); S83.242A Other tear of medial meniscus, current injury, left knee, initial encounter; M94.262 Chondromalacia, left knee; J45.909 Unspecified asthma, uncomplicated; K58.9 Irritable bowel syndrome, unspecified; I10 Essential (primary) hypertension; E11.9 Type 2 diabetes mellitus without complications; E66.01 Morbid (severe) obesity due to excess calories; K21.9 Gastro-esophageal reflux disease without esophagitis; G47.33 Obstructive sleep apnea (adult) (pediatric); G43.909 Migraine, unspecified, not intractable, without status migrainosus; D64.9 Anemia, unspecified; M19.90 Unspecified osteoarthritis, unspecified site; Z88.5 Allergy status to narcotic agent; Z88.8 Allergy status to other drugs, medicaments and biological substances; Z79.84 Long term (current) use of oral hypoglycemic drugs; Z79.899 Other long term (current) drug therapy; Z68.43 Body mass index [BMI] 50.0-59.9, adult
CPT/HCPCS: 84703; 87081

== ENCOUNTER 2020-01-20 00:02 | Emergency (ER) | payer MEDICAID ==
[~2020-01-20] VITALS: Ht 175 cm; Wt 155.5 kg
[~2020-01-20 00:02] MED LIST changes: +HYDR-4342 PO
--- OUTSIDE RECORDS SUMMARY | 2020-01-20 00:39 | XMS REPORT | Clinical Summary ---
Author Author [facility] Organization [facility] Address Unknown Phone Unavailable Care Team Providers Care Media Sales Consultant Name Role Phone Diamante Bryant LOCATOR PCP Source Comments Some departments are not documenting in the electronic medical record. If you d o not see the information that you expected, contact Release of Information in [facility] Information Management department at [phone] for further assistan ce in locating additional records.[facility] Allergies Comments Active Allergy Reactions Severity [...] Dates Group AETNA MEDICAID AETNA xxxxxxxxxxx 2019-P [facility] [place] [id number] Advance Directives Patient Project Administrative Assistant Explanation Type Date Recorded Advance Directive/DPOA
--- OUTSIDE RECORDS SUMMARY | 2020-01-20 00:41 | XMS REPORT ---
Author Author Jada KHAN [facility] Address [address] [place] [address] Care Team Providers Care Job Molder Name Role Phone CARISA KHAN Unavailable PROBLEMS Type Condition ICD9-CM Code QGM86-AY Code Onset Dates Condition S tatus SNOMED Code Problem Tension headache G44.209 Active 398 494404 Problem DM neuro manif type II E11.49 Active 45842470 Problem Irritable bowel syndrome with diarrhea K58.0 Active 999102470 Problem Intractable migraine without aura and without st atus migrainosus G43.019 Active 580138878 Problem Menorrhagia with irregular cycle N92.1 Active 223404207 Problem Sleep apnea in adult G47.30 Active 69398406 Problem Other chronic pain G89.29 Active 8 2745644 Problem Iron deficiency anemia due to chronic blood loss D 50.0 Active 852025818 Problem Migraine with aura and without status migrainosu s, not intractable G43.109 Active 8593957 Problem Obstructive sleep apnea syndrome G47.33 Active 93887086 Problem Seasonal allergic rhinitis due to pollen J30.1 Active 20263706 Problem Localized osteoarthritis of left knee M17.12 Active 605790282 Problem HTN (hypertension) I10 Active 3 0887985 Problem Chronic tension-type headache, not intractable G44 .229 Active 563272578 Problem Primary osteoarthritis of left knee M17.12 Active 940948638832140 Problem Hyperinsulinemia E16.1 Active 834 48636 Problem Food allergy Z91.018 Active 5299591 01 Problem Chronic venous insufficiency I87.2 A ctive 86883859 Problem Multiple allergies Z88.9 Active 6 56883145 Problem Migraine headache G43.909 Active 37 571341 ALLERGIES No Information ENCOUNTERS Encounter Location Date Diagnosis [facility] [address] [facility] [id number] [address] [place] [address] Oct, Foreign body (FB) in soft ti ssue M79.5 [facility] [address] [facility] [id number] [address] [place] [id number] 25 Sep, 2019 HTN (hypertension) I10 [place] [address] [facility] [id number] [address] [place] [id number] 19 Sep, 2019 Viral URI J06.9 ; Cough prod uctive of purulent sputum R05 and Exposure to influenza Z20.828 [facility] [address] [facility] [id number] [address] [place] [id number] 14 Sep, 2019 [facility] [address] [facility] [id number] [address] [place] [id number] 14 Sep, 2019 Flu-like symptoms R68.89 [place] [address] [place] [id number] [address] [place] [id number] 12 Sep, 2019 Primary osteoarthritis of le ft knee M17.12 and Acute medial meniscus tear of left knee, subsequent encounter S83.242D [facility] [address] [facility] [id number] [address] [place] [id number] 15 Aug, 2019 Flu-like symptoms R68.89 [facility] [address] [facility] [id number] [address] [place] [id number] 03 Aug, 2019 Sore throat J02.9 [place] [address] [place] [id number] [address] [place] [id number] 24 Jul, 2019 [place] [address] [facility] [id number] [address] [place] [id number] Jul, [place] [address] [facility] [id number] [address] [place] [id number] Jul, [place] [address] [place] [id number] [address] [place] [id number] 24 Jul, 2019 [place] [address] [facility] [id number] [address] [place] [id number] 13 Jul, 2019 Segmental dysfunction of tho racic region M99.02 ; Segmental dysfunction of lumbar region M99.03 ; Segmental dysfunction of cervical region M99.01 and Chronic tension-type headache, not intractable G44.229 [place] [address] [place] [id number] [address] [place] [id number] Jul, [facility] [address] [facility] [id number] [address] [place] [id number] Jun, Localized osteoarthritis of left knee M17.12 [facility] [address] [place] [id number] [address] [place] [id number] Jun, Acute non-recurrent sinusiti s, unspecified location J01.90 [place] [address] [place] [id number] [place] [address] Jun, [place] [address] [place] [id number] [place] [address] Jun, Viral upper respiratory trac t infection J06.9 [place] [address] [address] Jun, [place] [address] [address] May, Prediabetes R73.03 and Iron deficiency anemia due to chronic blood loss D50.0 [place] [address] [address] May, [place] [address] [address] May, Prediabetes R73.03 ; Left an terior knee pain M25.562 ; Encounter for immunization Z23 ; Migraine headache G43.909 ; Multiple allergies Z88.9 ; Snoring R06.83 and Iron deficiency anemia due to chronic blood loss D50.0 [facility] [address] [place] [id number] [address] [place] [id number] 16 May, 2019 Nonintractable headache, uns pecified chronicity pattern, unspecified headache type R51 and Sore throat J02.9 [place] [address] [place] [address] 15 Apr, 2019 [facility] [address] [facility] [id number] [address] [place] [id number] Apr, Fever, unspecified fever cau se R50.9 and Chest congestion R09.89 [facility] [address] [facility] [id number] [address] [place] [id number] 18 Mar, 2019 Abdominal pain R10.9 [facility] [address] [place] [id number] [place] [address] Mar, Chronic venous insufficiency I87.2 [facility] [address] [address] Feb, [facility] [address] [place] [id number] [place] [address] Feb, [facility] [address] [address] Feb, [facility] [address] [address] Feb, Seasonal allergic rhinitis d ue to pollen J30.1 ; Cervicalgia M54.2 ; Pain in right leg M79.604 ; Morbid obesity E66.01 and Obstructive sleep apnea syndrome G47.33 [facility] [address] [place] [id number] [address] [place] [id number] Jan, [facility] [address] [place] [id number] [address] [place] [address] Jan, [facility] [address] [place] [id number] [address] [place] [id number] Jan, [facility] [address] [address] Jan, Food allergy Z91.018 [facility] [address] [place] [id number] [address] [place] [address] Jan, Right ear pain H92.01 ; DM n euro manif type II E11.49 and Morbid obesity E66.01 [facility] [address] [id number] [address] [place] [address] Dec, Exercise counseling Z71.82 [facility] [address] [id number] [address] [place] [id number] Dec, [facility] [address] [id number] [address] [place] [address] Dec, Acute midline low back pain without sciatica M54.5 ; Migraine headache G43.909 ; Obstructive sleep apnea syndrome G47.33 ; Localized edema R60.0 and Morbid obesity E66.01 [facility] [address] [facility] [id number] [address] [place] [address] Dec, Migraine with aura and witho ut status migrainosus, not intractable G43.109 and Morbid obesity E66.01 [place] [id number] [facility] [id number] [address] [place] [address] November, [place] [address] [id number] [address] [place] [address] November, [place] [address] [facility] [id number] [address] [place] [address] November, [facility] [address] [facility] [id number] [address] [place] [address] November, Pain of left lower leg M79.6 62 [place] [address] [facility] [id number] [address] [place] [address] November, Pain of left lower leg M79.6 62 and Candidiasis B37.9 [facility] [address] [id number] [address] [place] [address] November, Left leg pain M79.605 [place] [address] [facility] [id number] [address] [place] [address] November, Pain in right leg M79.604 [place] [address] [facility] [id number] [place] [address] Oct, Left leg pain M79.605 ; Left leg swelling M79.89 and Morbid obesity E66.01 [place] [address] [address] Oct, Bronchitis J40 ; HTN (hypert ension) I10 and Morbid obesity E66.01 [facility] [address] [address] Oct, Sore throat J02.9 and Morbid obesity E66.01 [place] [address] [address] Oct, [place] [address] [address] Oct, Allergy, food Z91.018 ; Cand idiasis B37.9 and Morbid obesity E66.01 [place] [address] [address] Sep, [place] [address] [address] Sep, Intractable migraine without aura and without status migrainosus G43.019 ; Allergic reaction to food, subsequent encounter T78.1XXD ; HTN (hypertension) I10 and Morbid obesity E66.01 [place] [address] [address] Jul, [facility] [address] [address] Jul, Rash R21 and BMI 50.0-59.9, adult Z68.43 [place] [address] [address] Jun, Hyperinsulinemia E16.1 and M enorrhagia with irregular cycle N92.1 [place] [address] [address] Jun, Primary osteoarthritis of le ft knee M17.12 [facility] [address] [address] 12 Jun, 2018 Sore throat J02.9 ; Acute na sopharyngitis J00 and BMI 50.0-59.9, adult Z68.43 [place] [address] [address] 05 Jun, 2018 Other chronic pain G89.29 ; Pain in left knee M25.562 ; Hyperinsulinemia E16.1 ; Menorrhagia with irregular cycle N92.1 and BMI 50.0- 59.9, adult Z68.43 [facility] [place] [address] [address] Apr, BMI 50.0-59.9, adult Z68.43 ; Dysuria R30.0 and Acute UTI N39.0 [place] [address] [address] Apr, [place] [address] [address] 17 Apr, 2018 Encounter for immunization Z 23 [place] [address] [address] 27 Mar, 2018 Acute midline low back pain without sciatica M54.5 ; Acute pain of left knee M25.562 and BMI 50.0-59.9, adult Z68.43 [place] [address] [address] Mar, Intractable migraine without aura and without status migrainosus G43.019 and BMI 50.0-59.9, adult Z68.43 [place] [address] [address] 05 Mar, 2018 Bronchitis J40 ; Allergy to food Z91.018 and BMI 50.0-59.9, adult Z68.43 [facility] [place] [address] [address] Mar, Bronchitis J40 ; Wheezing on both sides of chest R06.2 and BMI 50.0-59.9, adult Z68.43 [place] [address] [address] Feb, Pain in right leg M79.604 [place] [address] [place] [id number] [address] [place] [address] Jan, Pneumonia of left lung due t o infectious organism, unspecified part of lung J18.9 [place] [address] [place] [id number] [address] [place] [address] Dec, Pneumonia due to Mycoplasma pneumoniae, unspecified laterality, unspecified part of lung J15.7 and BMI 50.0-59.9, adult Z68.43 [place] [address] [place] [id number] [place] [address] Dec, [place] [address] [address] Dec, Bronchitis J40 and BMI 50.0- 59.9, adult Z68.43 [place] [address] [address] November, Bronchitis J40 ; LLQ pain R1 0.32 and BMI 50.0-59.9, adult Z68.43 [place] [id number] [place] [address] November, Iron deficiency anemia due t o chronic blood loss D50.0 [place] [address] [place] [id number] [address] [place] [address] November, [place] [address] [address] November, Iron deficiency anemia due t o chronic blood loss D50.0 ; DM neuro manif type II E11.49 ; Menorrhagia with irregular cycle N92.1 and BMI 50.0-59.9, adult Z68.43 [facility] [address] [place] [id number] [address] [place] [address] Oct, Sore throat J02.9 and Acute nasopharyngitis J00 [facility] [address] [address] Oct, Left leg pain M79.605 and BM I 50.0-59.9, adult Z68.43 [facility] [address] [address] Sep, Upper respiratory tract infe ction, unspecified type J06.9 and BMI 50.0-59.9, adult Z68.43 [place] [address] [address] Sep, Menorrhagia with irregular c ycle N92.1 ; Sleep apnea in adult G47.30 and BMI 50.0-59.9, adult Z68.43 [place] [address] [address] Sep, [facility] [address] [address] Aug, [facility] [address] [address] Aug, [facility] [address] [address] Aug, [facility] [address] [address] Aug, LLQ pain R10.32 ; Irritable bowel syndrome with diarrhea K58.0 ; Change in bowel habits R19.4 ; Essential hypertension I10 and BMI 50.0-59.9, adult Z68.43 [facility] [address] [address] Aug, [facility] [address] [address] Aug, [facility] [address] [address] Aug, Essential hypertension I10 a nd BMI 50.0-59.9, adult Z68.43 [place] [address] [address] Aug, [place] [address] [address] Aug, [facility] [place] [address] [address] Aug, Allergic disorder, initial e ncounter T78.40XA and BMI 50.0-59.9, adult Z68.43 [facility] [place] [address] [address] Jul, Other atopic dermatitis L20. 89 and BMI 50.0-59.9, adult Z68.43 [place] [address] [address] 16 Jul, 2017 Intractable migraine without aura and without status migrainosus G43.019 and BMI 50.0-59.9, adult Z68.43 [place] [address] [address] 21 Jun, 2017 DM neuro manif type II E11.4 9 ; Tension headache G44.209 ; Breast cancer screening Z12.31 and BMI 50.0-59.9, adult Z68.43 [place] [address] [address] 20 Jun, 2017 Tension headache G44.209 ; B reast cancer screening Z12.31 ; BMI 50.0-59.9, adult Z68.43 and DM neuro manif type II E11.49 [facility] [place] [address] [address] 29 Apr, 2017 Dysuria R30.0 and Acute cyst itis with hematuria N30.01 [place] [address] [address] Apr, Hyperinsulinemia E16.1 [place] [address] [address] Mar, Acute non-recurrent maxillar y sinusitis J01.00 [place] [address] [place] [id number] [place] [address] Feb, Cellulitis of unspecified pa rt of limb L03.119 ; Spider bite wound, accidental or unintentional, subsequent encounter T63.301D and BMI 50.0-59.9, adult Z68.43 [place] [address] [address] Jan, [place] [address] [address] Jan, Urinary tract infection, sit e unspecified N39.0 [place] [address] [address] Jan, Acute gastritis without hemo rrhage, unspecified gastritis type K29.00 [place] [address] [address] Dec, Pain in right leg M79.604 [place] [address] [address] Dec, Hyperinsulinemia E16.1 and P ain in right leg M79.604 [place] [address] [address] Dec, Angioedema, initial encounte r T78.3XXA [place] [address] [address] 15 Dec, 2016 Dental examination Z01.20 [place] [address] [address] 13 Dec, 2016 [place] [address] [address] Dec, Burning with urination R30.0 and Acute cystitis with hematuria N30.01 [facility] [address] [id number] [address] [place] [address] Oct, [facility] [address] [id number] [address] [place] [address] Sep, [facility] [address] [id number] [address] [place] [address] Aug, Hyperinsulinemia E16.1 [facility] [address] [id number] [address] [place] [address] Aug, [facility] [address] [facility] [id number] [address] [place] [address] Jul, [facility] [address] [facility] [id number] [address] [place] [address] Jul, Chondromalacia, left knee M9 4.262 and Acute lateral meniscus tear of left knee, initial encounter S83.282A [facility] [address] [facility] [id number] [address] [place] [address] Jul, [facility] [address] [facility] [id number] [address] [place] [address] Jun, Hyperinsulinemia E16.1 [facility] [address] [facility] [id number] [address] [place] [address] Jun, Dysuria R30.0 ; Back pain M5 4.9 ; Acute pain of left knee M25.562 and Hyperinsulinemia E16.1 [facility] [address] [id number] [address] [place] [address] Jun, Acute non-recurrent maxillar y sinusitis J01.00 [facility] [address] [facility] [id number] [address] [place] [address] Jun, Dysuria R30.0 [facility] [address] [facility] [id number] [address] [place] [address] Jun, Dysuria R30.0 [facility] [address] [id number] [address] [place] [address] Jun, [facility] [address] [facility] [id number] [address] [place] [address] May, Dysuria R30.0 and Acute cyst itis with hematuria N30.01 [facility] [address] [facility] [id number] [address] [place] [address] May, Hyperinsulinemia E16.1 [facility] [address] [id number] [address] [place] [address] May, [facility] [address] [facility] [id number] [address] [place] [address] May, Sore throat J02.9 [facility] [address] [facility] [id number] [address] [place] [address] May, [facility] [address] [facility] [id number] [address] [place] [address] Mar, Hyperinsulinemia E16.1 [facility] [address] [facility] [id number] [address] [place] [address] Jan, Hyperinsulinemia E16.1 [facility] [address] [facility] [id number] [address] [place] [address] Dec, DM neuro manif type II E11.4 9 [facility] [address] [facility] [id number] [address] [place] [address] November, Hyperinsulinemia E16.1 and H ypertension I10 [facility] [address] [facility] [id number] [address] [place] [address] Oct, [facility] [address] [facility] [id number] [address] [place] [address] Oct, Hyperinsulinemia E16.1 [facility] [address] [facility] [id number] [address] [place] [address] Oct, Pain, unspecified R52 [facility] [address] [facility] [id number] [address] [place] [address] 14 Oct, 2015 Pain in right foot M79.671 a nd Hyperinsulinemia E16.1 [facility] [address] [id number] [address] [place] [address] 14 Oct, 2015 Hyperinsulinemia E16.1 [facility] [address] [id number] [address] [place] [address] 12 Oct, 2015 Hyperinsulinemia E16.1 [facility] [address] [id number] [address] [place] [address] 17 Aug, 2015 Hypertension I10 and Viral i llness B34.9 [facility] [address] [id number] [address] [place] [id number] 18 May, 2015 Back pain M54.9 [facility] [address] [id number] [address] [place] [id number] 14 Oct, 2014 [facility] [address] [id number] [address] [place] [id number] Oct, [facility] [address] [id number] [address] [place] [id number] 30 Sep, 2014 [facility] [address] [id number] [address] [place] [id number] 30 Sep, 2014 [facility] [address] [id number] [address] [place] [phone] Sep, [facility] [address] [id number] [address] [place] [phone] 17 Sep, 2014 [facility] [address] [id number] [address] [place] [phone] Sep, [facility] [address] [id number] [address] [place] [phone] Sep, [facility] [address] [id number] [address] [place] [phone] Sep, [facility] [address] [id number] [address] [place] [phone] Sep, [facility] [address] [id number] [address] [place] [address], [place] [phone] Sep, 2014 [facility] [address] [id number] [address] [place] [address], [place] [address] Sep, 2014 [facility] [address] [id number] [address] [place] [address], [place] [phone] Sep, 2014 [facility] [address] [id number] [address] [place] [address], [place] [address] Sep, 2014 [facility] [address] [id number] [address] [place] [address], [place] [address] Mar, [facility] [address] [id number] [address] [place] [address], [place] [address] Mar, [facility] [address] [id number] [address] [place] [address], [place] [address] Feb, [facility] [address] [id number] [address] [place] [address], [place] [address] Feb, [facility] [address] [id number] [address] [place] [address], [place] [address] Feb, [facility] [address] [id number] [address] [place] [address], [place] [address] Feb, [facility] [address] [id number] [address] [place] [address], [place] [address] Dec, [facility] [address] [id number] [address] [place], [place] [address], [place] [address] Dec, [facility] [address] [id number] [address] [place] [address], [place] [address] Dec, [facility] [address] [id number] [address] [place] [address], [place] [address] Dec, [facility] [address] [id number] [address] [place] [address], [place] [address] Dec, [facility] [address] [id number] [address] [place] [address], [place] [address] Dec, [facility] [address] [id number] [address] [place] [address], [place] [address] Dec, [facility] [address] [id number] [address] [place] [address], [place] [address] Sep, [facility] [address] [id number] [address] [place] [address], [place] [address] Sep, [facility] [address] [id number] [address] [place] [address], [place] [address] Sep, [facility] [address] [id number] [address] [place] [address], [place] [address] Sep, [facility] [address] [id number] [address] [place] [address], [place] [address] Sep, [facility] [address] [id number] [address] [place] [address], [place] [address] Sep, [facility] [address] [id number] [address] [place] [address], [place] [address] Sep, [facility] [address] [id number] [address] [place] [address], [place] [address] Sep, [facility] [address] [id number] [address] [place] [address], [place] [address] Jul, [facility] [address] [id number] [address] [place] [address], [place] [address] Jul, [facility] [address] [id number] [address] [place] [address], [place] [address] Jun, [facility] [address] [id number] [address] [place] [address], [place] [address] Jun, [facility] [address] [id number] [address] [place] [address], [place] [address] May, [facility] [address] [id number] [address] [place] [address], [place] [address] May, [facility] [address] [id number] [address] [place] [address], [place] [address] May, [facility] [address] [id number] [address] [place] [address], [place] [address] May, [facility] [address] [id number] [address] [place] [address], [place] [address] May, [facility] [address] [id number] [address] [place] [address], [place] [address] May, [facility] [address] [id number] [address] [place] [address], [place] [address] May, [facility] [address] [id number] [address] [place] [address], [place] [address] Apr, [facility] [address] [id number] [address] [place] [address], [place] [address] Apr, [facility] [address] [id number] [address] [place] [address], [place] [address] Apr, [facility] [address] [id number] [address] [place] [address], [place] [address] Apr, [facility] [address] [id number] [address] [place] [address], [place] [address] Apr, [facility] [address] [id number] [address] [place] [address], [place] [address] Apr, [facility] [address] [id number] [address] [place] [address], [place] [address] Mar, [facility] [address] [id number] [address] [place] [address], [place] [address] Feb, [facility] [address] [id number] [address] [place] [address], [place] [address] Jan, [facility] [address] [id number] [address] [place] [address], [place] [address] Jan, [facility] [address] [id number] [address] [place] [address], [place] [address] Jan, [facility] [address] [id number] [address] [place] [address], [place] [address] Dec, [facility] [address] [id number] [address] [place] [address], [place] [address] November, [facility] [address] [id number] [address] [place] [address], [place] [address] November, [facility] [address] [id number] [address] [place] [address], [place] [address] November, [facility] [address] [id number] [address] [place] [address], [place] [address] November, [facility] [address] [id number] [address] [place] [address], [place] [address] Oct, [facility] [address] [id number] [address] [place] [address], [place] [address] Aug, [facility] [address] [id number] [address] [place] [address], [place] [address] Aug, [facility] [address] [id number] [address] [place] [address], [place] [address] Aug, [facility] [address] [id number] [address] [place] [address], [place] [address] Aug, [facility] [address] [id number] [address] [place] [address], [place] [address] Aug, [facility] [address] [id number] [address] [place] [address], [place] [address] Aug, [facility] [address] [id number] [address] [place] [address], [place] [address] Jul, [facility] [address] [id number] [address] [place] [address], [place] [address] May, [facility] [address] [id number] [address] [place] [address], [place] [address] May, [facility] [address] [id number] [address] [place] [address], [place] [address] May, [facility] [address] [id number] [address] [place] [address], [place] [address] May, [facility] [address] [id number] [address] [place] [address], [place] [address] May, [facility] [address] [id number] [address] [place] [address], [place] [address] May, [facility] [address] [id number] [address] [place] [address], [place] [address] May, [facility] [address] [id number] [address] [place] [address], [place] [address] Apr, [facility] [address] [id number] [address] [place] [address], [place] [address] Apr, [facility] [address] [id number] [address] [place] [address], [place] [address] Apr, [facility] [address] [id number] [address] [place] [address], [place] [address] Apr, [facility] [address] [id number] [address] [place] [address], [place] [address] Apr, [facility] [address] [id number] [address] [place] [address], [place] [address] Sep, [facility] [address] [id number] [address] [place] [address], [place] [address] 24 Aug, 2011 [facility] [address] [id number] [address] [place] [address], [place] [address] 16 Aug, 2011 [facility] [address] [id number] [address] [place] [address], [place] [address] 15 Aug, 2011 [facility] [address] [id number] [address] [place] [address], [place] [address] Aug, [facility] [address] [id number] [address] [place] [address], [place] [address] Aug, [facility] [address] [id number] [address] [place] [address] Jul, [facility] [address] [id number] [address] [place] [address] Jul, [facility] [address] [id number] [address] [place] [address] Jul, [facility] [address] [id number] [address] [place] [address] Jun, [facility] [address] [id number] [address] [place] [address] Jun, [facility] [address] [id number] [address] [place] [address] Jun, [facility] [address] [id number] [address] [place] [address] May, [facility] [address] [id number] [address] [place] [address] Apr, [facility] [address] [id number] [address] [place] [address] Apr, [facility] [address] [id number] [address] [place] [address] Apr, [facility] [address] [id number] [address] [place] [address] Apr, IMMUNIZATIONS No Known Immunizations SOCIAL HISTORY [...]
--- OUTSIDE RECORDS SUMMARY | 2020-01-20 00:41 | XMS REPORT ---
Author Author Jada KHAN Organization [facility] Address [address] [place] [address] Care Team Providers Care Financial Business Analyst Name Role Phone CARISA KHAN Unavailable PROBLEMS Type Condition ICD9-CM Code UNP58-RZ Code Onset Dates Condition S tatus SNOMED Code Problem Tension headache G44.209 Active 398 678069 Problem DM neuro manif type II E11.49 Active 07506710 Problem Irritable bowel syndrome with diarrhea K58.0 Active 657495673 Problem Intractable migraine without aura and without st atus migrainosus G43.019 Active 954031778 Problem Menorrhagia with irregular cycle N92.1 Active 497631628 Problem Sleep apnea in adult G47.30 Active 29033001 Problem Other chronic pain G89.29 Active 8 4651104 Problem Iron deficiency anemia due to chronic blood loss D 50.0 Active 776309402 Problem Migraine with aura and without status migrainosu s, not intractable G43.109 Active 6186880 Problem Obstructive sleep apnea syndrome G47.33 Active 99555029 Problem Seasonal allergic rhinitis due to pollen J30.1 Active 27934835 Problem Localized osteoarthritis of left knee M17.12 Active 431027883 Problem HTN (hypertension) I10 Active 3 9263442 Problem Chronic tension-type headache, not intractable G44 .229 Active 052055969 Problem Primary osteoarthritis of left knee M17.12 Active [id number] Problem Hyperinsulinemia E16.1 Active 834 13449 Problem Food allergy Z91.018 Active 7759463 01 Problem Chronic venous insufficiency I87.2 A ctive 56169514 Problem Multiple allergies Z88.9 Active 6 59876805 Problem Migraine headache G43.909 Active 37 581557 ALLERGIES No Information ENCOUNTERS Encounter Location Date Diagnosis [facility] [address] [facility] [id number] [place] [address] Dec, [facility] [address] [facility] [id number] [address] [place] [address] 24 Oct, 2019 Foreign body (FB) in soft ti ssue M79.5 [place] [address] [facility] [id number] [address] [place] [address] 25 Sep, 2019 HTN (hypertension) I10 [place] [address] [place] [id number] [address] [place] [address] 19 Sep, 2019 Viral URI J06.9 ; Cough prod uctive of purulent sputum R05 and Exposure to influenza Z20.828 [facility] [address] [place] [id number] [address] [place] [address] 14 Sep, 2019 [facility] [place] [address] [place] [id number] [address] [place] [address] 14 Sep, 2019 Flu-like symptoms R68.89 [place] [address] [place] [address] 12 Sep, 2019 Primary osteoarthritis of le ft knee M17.12 and Acute medial meniscus tear of left knee, subsequent encounter S83.242D [facility] [address] [place] [id number] [address] [place] [address] 15 Aug, 2019 Flu-like symptoms R68.89 [facility] [place] [address] [place] [id number] [address] [place] [address] 03 Aug, 2019 Sore throat J02.9 [place] [address] [facility] [id number] [address] [place] [address] Jul, [place] [address] [place] [id number] [address] [place] [address] Jul, [place] [address] [place] [id number] [address] [place] [address] Jul, [place] [address] [facility] [id number] [address] [place] [address] Jul, [place] [address] [place] [id number] [address] [place] [address] 13 Jul, 2019 Segmental dysfunction of tho racic region M99.02 ; Segmental dysfunction of lumbar region M99.03 ; Segmental dysfunction of cervical region M99.01 and Chronic tension-type headache, not intractable G44.229 [facility] [address] [id number] [address] [place] [address] 07 Jul, 2019 [facility] [address] [id number] [address] [place] [address] Jun, Localized osteoarthritis of left knee M17.12 [facility] [address] [id number] [address] [place] [address] Jun, Acute non-recurrent sinusiti s, unspecified location J01.90 [place] [address] [facility] [id number] [address] [place] [address] Jun, [place] [address] [facility] [id number] [address] [place] [address] Jun, Viral upper respiratory trac t infection J06.9 [place] [address] [facility] [id number] [address] [place] [address] Jun, [place] [address] [facility] [id number] [address] [place] [address] May, Prediabetes R73.03 and Iron deficiency anemia due to chronic blood loss D50.0 [place] [address] [facility] [id number] [address] [place] [address] May, [place] [address] [facility] [id number] [address] [place] [address] May, Prediabetes R73.03 ; Left an terior knee pain M25.562 ; Encounter for immunization Z23 ; Migraine headache G43.909 ; Multiple allergies Z88.9 ; Snoring R06.83 and Iron deficiency anemia due to chronic blood loss D50.0 [facility] [address] [id number] [address] [place] [address] 16 May, 2019 Nonintractable headache, uns pecified chronicity pattern, unspecified headache type R51 and Sore throat J02.9 [facility] [address] [facility] [id number] [address] [place] [address] Apr, [facility] [address] [facility] [id number] [address] [place] [address] Apr, Fever, unspecified fever cau se R50.9 and Chest congestion R09.89 [facility] [address] [facility] [id number] [address] [place] [address] 18 Mar, 2019 Abdominal pain R10.9 [facility] [address] [facility] [id number] [address] [place] [address] Mar, Chronic venous insufficiency I87.2 [facility] [address] [place] [id number] [address] [place] [address] Feb, [facility] [address] [address] Feb, [facility] [address] [place] [id number] [address] [place] [address] Feb, [facility] [address] [address] Feb, Seasonal allergic rhinitis d ue to pollen J30.1 ; Cervicalgia M54.2 ; Pain in right leg M79.604 ; Morbid obesity E66.01 and Obstructive sleep apnea syndrome G47.33 [facility] [address] [place] [id number] [address] [place] [address] Jan, [facility] [address] [place] [id number] [address] [place] [address] Jan, [facility] [address] [place] [id number] [address] [place] [address] Jan, [facility] [address] [place] [id number] [address] [place] [address] Jan, Food allergy Z91.018 [facility] [address] [place] [id number] [place] [address] Jan, Right ear pain H92.01 ; DM n euro manif type II E11.49 and Morbid obesity E66.01 [facility] [address] [place] [id number] [place] [address] Dec, Exercise counseling Z71.82 [place] [address] [place] [id number] [place] [address] Dec, [place] [address] [address] Dec, Acute midline low back pain without sciatica M54.5 ; Migraine headache G43.909 ; Obstructive sleep apnea syndrome G47.33 ; Localized edema R60.0 and Morbid obesity E66.01 [facility] [address] [place] [id number] [place] [address] Dec, Migraine with aura and witho ut status migrainosus, not intractable G43.109 and Morbid obesity E66.01 [place] [address] [address] November, [place] [address] [address] November, [place] [address] [address] November, [place] [address] [address] November, Pain of left lower leg M79.6 62 [place] [address] [place] [id number] [place] [address] November, Pain of left lower leg M79.6 62 and Candidiasis B37.9 [facility] [address] [place] [id number] [address] [place] [address] November, Left leg pain M79.605 [place] [address] [address] November, Pain in right leg M79.604 [facility] [address] [address] Oct, Left leg pain M79.605 ; Left leg swelling M79.89 and Morbid obesity E66.01 [place] [address] [address] Oct, Bronchitis J40 ; HTN (hypert ension) I10 and Morbid obesity E66.01 [facility] [address] [address] Oct, Sore throat J02.9 and Morbid obesity E66.01 [place] [address] [address] Oct, [place] [address] [address] Oct, Allergy, food Z91.018 ; Cand idiasis B37.9 and Morbid obesity E66.01 [place] [address] [address] Sep, [place] [address] [address] Sep, Intractable migraine without aura and without status migrainosus G43.019 ; Allergic reaction to food, subsequent encounter T78.1XXD ; HTN (hypertension) I10 and Morbid obesity E66.01 [place] [address] [address] Jul, [facility] [address] [address] Jul, Rash R21 and BMI 50.0-59.9, adult Z68.43 [place] [address] [address] Jun, Hyperinsulinemia E16.1 and M enorrhagia with irregular cycle N92.1 [place] [address] [address] Jun, Primary osteoarthritis of le ft knee M17.12 [facility] IN [place] [address] [address] 12 Jun, 2018 Sore throat J02.9 ; Acute na sopharyngitis J00 and BMI 50.0-59.9, adult Z68.43 [place] [address] [address] 05 Jun, 2018 Other chronic pain G89.29 ; Pain in left knee M25.562 ; Hyperinsulinemia E16.1 ; Menorrhagia with irregular cycle N92.1 and BMI 50.0- 59.9, adult Z68.43 [facility] IN [place] [address] [address] Apr, BMI 50.0-59.9, adult Z68.43 ; Dysuria R30.0 and Acute UTI N39.0 [place] [address] [address] Apr, [place] [address] [address] 17 Apr, 2018 Encounter for immunization Z 23 [place] [address] [address] 27 Mar, 2018 Acute midline low back pain without sciatica M54.5 ; Acute pain of left knee M25.562 and BMI 50.0-59.9, adult Z68.43 [place] [address] [address] 24 Mar, 2018 Intractable migraine without aura and without status migrainosus G43.019 and BMI 50.0-59.9, adult Z68.43 [place] [address] [address] 05 Mar, 2018 Bronchitis J40 ; Allergy to food Z91.018 and BMI 50.0-59.9, adult Z68.43 [facility] [address] [facility] [id number] [address] [place] [address] Mar, Bronchitis J40 ; Wheezing on both sides of chest R06.2 and BMI 50.0-59.9, adult Z68.43 [facility] [address] [place] [id number] [address] [place] [address] Feb, Pain in right leg M79.604 [place] [address] [address] Jan, Pneumonia of left lung due t o infectious organism, unspecified part of lung J18.9 [place] [address] [address] Dec, Pneumonia due to Mycoplasma pneumoniae, unspecified laterality, unspecified part of lung J15.7 and BMI 50.0-59.9, adult Z68.43 [place] [address] [address] Dec, [place] [address] [address] Dec, Bronchitis J40 and BMI 50.0- 59.9, adult Z68.43 [place] [address] [place] [id number] [address] [place] [address] November, Bronchitis J40 ; LLQ pain R1 0.32 and BMI 50.0-59.9, adult Z68.43 [place] [address] [place] [id number] [address] [place] [address] November, Iron deficiency anemia due t o chronic blood loss D50.0 [place] [address] [address] November, [place] [address] [address] November, Iron deficiency anemia due t o chronic blood loss D50.0 ; DM neuro manif type II E11.49 ; Menorrhagia with irregular cycle N92.1 and BMI 50.0-59.9, adult Z68.43 [facility] [address] [address] Oct, Sore throat J02.9 and Acute nasopharyngitis J00 [facility] [address] [place] [id number] [place] [address] Oct, Left leg pain M79.605 and BM I 50.0-59.9, adult Z68.43 [facility] [address] [address] 17 Sep, 2017 Upper respiratory tract infe ction, unspecified type J06.9 and BMI 50.0-59.9, adult Z68.43 [facility] [address] [address] Sep, Menorrhagia with irregular c ycle N92.1 ; Sleep apnea in adult G47.30 and BMI 50.0-59.9, adult Z68.43 [facility] [address] [address] Sep, [place] [address] [address] Aug, [place] [address] [address] Aug, [facility] [address] [address] Aug, [place] [address] [address] Aug, LLQ pain R10.32 ; Irritable bowel syndrome with diarrhea K58.0 ; Change in bowel habits R19.4 ; Essential hypertension I10 and BMI 50.0-59.9, adult Z68.43 [facility] [address] [address] Aug, [facility] [address] [address] Aug, [facility] [address] [address] Aug, Essential hypertension I10 a nd BMI 50.0-59.9, adult Z68.43 [place] [address] [address] Aug, [place] [address] [address] 08 Aug, 2017 [facility] [place] [address] [address] 02 Aug, 2017 Allergic disorder, initial e ncounter T78.40XA and BMI 50.0-59.9, adult Z68.43 [facility] IN [facility] [address] [address] Jul, Other atopic dermatitis L20. 89 and BMI 50.0-59.9, adult Z68.43 [place] [address] [address] 16 Jul, 2017 Intractable migraine without aura and without status migrainosus G43.019 and BMI 50.0-59.9, adult Z68.43 [place] [address] [address] Jun, DM neuro manif type II E11.4 9 ; Tension headache G44.209 ; Breast cancer screening Z12.31 and BMI 50.0-59.9, adult Z68.43 [place] [address] [address] Jun, Tension headache G44.209 ; B reast cancer screening Z12.31 ; BMI 50.0-59.9, adult Z68.43 and DM neuro manif type II E11.49 [facility] [address] [address] Apr, Dysuria R30.0 and Acute cyst itis with hematuria N30.01 [place] [address] [place] [address] Apr, Hyperinsulinemia E16.1 [place] [address] [place] [id number] [address] [place] [address] Mar, Acute non-recurrent maxillar y sinusitis J01.00 [place] [address] [address] Feb, Cellulitis of unspecified pa rt of limb L03.119 ; Spider bite wound, accidental or unintentional, subsequent encounter T63.301D and BMI 50.0-59.9, adult Z68.43 [place] [address] [address] Jan, [place] [address] [address] Jan, Urinary tract infection, sit e unspecified N39.0 [place] [address] [address] Jan, Acute gastritis without hemo rrhage, unspecified gastritis type K29.00 [place] [address] [place] [id number] [address] [place] [address] Dec, Pain in right leg M79.604 [place] [address] [address] Dec, Hyperinsulinemia E16.1 and P ain in right leg M79.604 [place] [address] [address] Dec, Angioedema, initial encounte r T78.3XXA [place] [address] [place] [address] 15 Dec, 2016 Dental examination Z01.20 [place] [address] [address] Dec, [facility] [address] [facility] [id number] [address] [place] [address] Dec, Burning with urination R30.0 and Acute cystitis with hematuria N30.01 [facility] [address] [facility] [id number] [address] [place] [address] Oct, [facility] [address] [place] [id number] [address] [place] [address] Sep, [facility] [address] [facility] [id number] [place] [address] Aug, Hyperinsulinemia E16.1 [facility] [address] [address] Aug, [facility] [address] [place] [id number] [place] [address] Jul, [facility] [address] [address] Jul, Chondromalacia, left knee M9 4.262 and Acute lateral meniscus tear of left knee, initial encounter S83.282A [facility] [address] [address] Jul, [facility] [address] [address] Jun, Hyperinsulinemia E16.1 [facility] [address] [address] Jun, Dysuria R30.0 ; Back pain M5 4.9 ; Acute pain of left knee M25.562 and Hyperinsulinemia E16.1 [facility] [address] [address] 14 Jun, 2016 Acute non-recurrent maxillar y sinusitis J01.00 [facility] [address] [place] [id number] [address] [place] [address] 05 Jun, 2016 Dysuria R30.0 [facility] [address] [place] [address] [place] [address] 05 Jun, 2016 Dysuria R30.0 [facility] [address] [address] Jun, [facility] [address] [place] [id number] [address] [place] [address] May, Dysuria R30.0 and Acute cyst itis with hematuria N30.01 [facility] [address] [facility] [id number] [address] [place] [address] May, Hyperinsulinemia E16.1 [facility] [address] [address] May, [facility] [address] [address] May, Sore throat J02.9 [facility] [address] [address] May, [facility] [address] [address] Mar, Hyperinsulinemia E16.1 [facility] [address] [address] Jan, Hyperinsulinemia E16.1 [facility] [address] [address] Dec, DM neuro manif type II E11.4 9 [facility] [address] [place] [id number] [address] [place] [address] November, Hyperinsulinemia E16.1 and H ypertension I10 [facility] [address] [place] [id number] [address] [place] [address] Oct, [facility] [address] [place] [id number] [place] [address] Oct, Hyperinsulinemia E16.1 [facility] [address] [address] Oct, Pain, unspecified R52 [facility] [address] [id number] [address] [place] [id number] 14 Oct, 2015 Pain in right foot M79.671 a nd Hyperinsulinemia E16.1 [facility] [address] [id number] [address] [place] [id number] 14 Oct, 2015 Hyperinsulinemia E16.1 [facility] [address] [id number] [address] [place] [id number] 12 Oct, 2015 Hyperinsulinemia E16.1 [facility] [address] [id number] [address] [place] [id number] 17 Aug, 2015 Hypertension I10 and Viral i llness B34.9 [facility] [address] [id number] [address] [place] [id number] 18 May, 2015 Back pain M54.9 [facility] [address] [id number] [address] [place] [id number] 14 Oct, 2014 [facility] [address] [id number] [address] [place] [id number] Oct, [facility] [address] [id number] [address] [place] [id number] 30 Sep, 2014 [facility] [address] [id number] [address] [place] [id number] 30 Sep, 2014 [facility] [address] [id number] [address] [place] [id number] 17 Sep, 2014 [facility] [address] [id number] [address] [place] [phone] 17 Sep, 2014 [facility] [address] [id number] [address] [place] [id number] Sep, [facility] [address] [id number] [address] [place] [phone] Sep, [facility] [address] [id number] [address] [place] [phone] Sep, [facility] [address] [id number] [address] [place] [address], [place] [address] Sep, 2014 [facility] [address] [id number] [address] [place] [address], [place] [address] Sep, 2014 [facility] [address] [id number] [address] [place] [address], [place] [address] Sep, 2014 [facility] [address] [id number] [address] [place] [address], [place] [address] Sep, 2014 [facility] [address] [id number] [address] [place] [address], [place] [address] Sep, 2014 [facility] [address] [id number] [address] [place] [address], [place] [address] Mar, 2013 [facility] [address] [id number] [address] [place] [address], [place] [address] Mar, 2013 [facility] [address] [id number] [address] [place] [address], [place] [address] Feb, [facility] [facility] [address] [id number] [address] [place] [address], [place] [address] Feb, [facility] [address] [id number] [address] [place] [address], [place] [address] Feb, [facility] [address] [id number] [address] [place] [address], [place] [address] Feb, [facility] [address] [id number] [address] [place] [address], [place] [address] Dec, [facility] [address] [id number] [address] [place] [address], [place] [address] Dec, [facility] [address] [id number] [address] [place] [address], [place] [address] Dec, [facility] [address] [id number] [address] [place] [address], [place] [address] 16 Dec, 2013 [facility] [address] [id number] [address] [place] [address], [place] [address] Dec, [facility] [address] [id number] [facility] [address] Dec, [facility] [address] [id number] [address] [place] [address], [place] [address] Dec, [facility] [address] [id number] [address] [place] [address], [place] [address] Sep, [facility] [address] [id number] [address] [place] [address], [place] [address] Sep, [facility] [address] [id number] [address] [place] [address], [place] [address] Sep, [facility] [address] [id number] [address] [place] [address], [place] [address] Sep, [facility] [address] [id number] [address] [place] [address], [place] [address] Sep, [facility] [address] [id number] [address] [place] [address], [place] [address] Sep, [facility] [address] [id number] [address] [place] [address], [place] [address] Sep, [facility] [address] [id number] [address] [place] [address], [place] [address] Sep, [facility] [address] [id number] [address] [place] [address], [place] [address] Jul, [facility] [address] [id number] [address] [place] [address], [place] [address] Jul, [facility] [address] [id number] [address] [place] [address], [place] [address] Jun, [facility] [address] [id number] [address] [place] [address], [place] [address] Jun, [facility] [address] [id number] [address] [place] [address], [place] [address] May, [facility] [address] [id number] [address] [place] [address], [place] [address] 18 May, 2013 [facility] [address] [id number] [address] [place] [address], [place] [address] May, [facility] [address] [id number] [address] [place] [address], [place] [address] May, [facility] [address] [id number] [address] [place] [address], [place] [address] May, [facility] [address] [id number] [address] [place] [address], [place] [address] May, [facility] [address] [id number] [address] [place] [address], [place] [address] May, [facility] [address] [id number] [address] [place] [address], [place] [address] Apr, [facility] [address] [id number] [address] [place] [address], [place] [address] Apr, [facility] [address] [id number] [address] [place] [address], [place] [address] Apr, [facility] [address] [id number] [address] [place] [address], [place] [address] Apr, [facility] [address] [id number] [address] [place] [address], [place] [address] Apr, [facility] [address] [id number] [address] [place] [address], [place] [address] Apr, [facility] [address] [id number] [address] [place] [address], [place] [address] Mar, [facility] [address] [id number] [address] [place] [address], [place] [address] Feb, [facility] [address] [id number] [address] [place] [address], [place] [address] Jan, [facility] [address] [id number] [address] [place] [address], [place] [address] Jan, [facility] [address] [id number] [address] [place] [address], [place] [address] Jan, [facility] [address] [id number] [address] [place] [address], [place] [address] Dec, [facility] [address] [id number] [address] [place] [address], [place] [address] November, [facility] [address] [id number] [address] [place] [address], [place] [address] November, [facility] [address] [id number] [address] [place] [address], [place] [address] November, [facility] [address] [id number] [address] [place] [address], [place] [address] November, [facility] [address] [id number] [address] [place] [address], [place] [address] Oct, [facility] [address] [id number] [address] [place] [address], [place] [address] Aug, [facility] [address] [id number] [address] [place] [address], [place] [address] Aug, [facility] [address] [id number] [address] [place] [address], [place] [address] Aug, [facility] [address] [id number] [address] [place] [address], [place] [address] Aug, [facility] [address] [id number] [address] [place] [address], [place] [address] Aug, [facility] [address] [id number] [address] [place] [address], [place] [address] Aug, [facility] [address] [id number] [address] [place] [address], [place] [address] Jul, [facility] [address] [id number] [address] [place] [address], [place] [address] May, [facility] [address] [id number] [address] [place] [address], [place] [address] May, [facility] [address] [id number] [address] [place] [address], [place] [address] May, [facility] [address] [id number] [address] [place] [address], [place] [address] May, [facility] [address] [id number] [address] [place] [address], [place] [address] May, [facility] [address] [id number] [address] [place] [address], [place] [address] May, [facility] [address] [id number] [address] [place] [address], [place] [address] May, [facility] [address] [id number] [address] [place] [address], [place] [address] Apr, [facility] [address] [id number] [address] [place] [address], [place] [address] Apr, [facility] [address] [id number] [address] [place] [address], [place] [address] Apr, [facility] [address] [id number] [address] [place] [address], [place] [address] Apr, [facility] [address] [id number] [address] [place] [address], [place] [address] Apr, [facility] [address] [id number] [address] [place] [address], [place] [address] Sep, [facility] [address] [id number] [address] [place] [address], [place] [address] 24 Aug, 2011 [facility] [address] [id number] [address] [place] [address], [place] [address] 16 Aug, 2011 [facility] [address] [id number] [address] [place] [address], [place] [address] 15 Aug, 2011 [facility] [address] [id number] [address] [place] [address], [place] [address] Aug, [facility] [address] [id number] [address] [place] [address] Aug, [facility] [address] [id number] [address] [place] [address] Jul, [facility] [address] [id number] [address] [place] [address] Jul, [facility] [address] [id number] [address] [place] [address] Jul, [facility] [address] [id number] [address] [place] [address] Jun, [facility] [address] [id number] [address] [place] [address] Jun, [facility] [address] [id number] [address] [place] [address] Jun, [facility] [address] [id number] [address] [place] [address] May, [facility] [address] [id number] [address] [place] [address] Apr, [facility] [address] [id number] [address] [place] [address] Apr, [facility] [address] [id number] [address] [place] [address] Apr, [facility] [address] [id number] [address] [place] [address] Apr, IMMUNIZATIONS No Known Immunizations SOCIAL HISTORY [...]
--- OUTSIDE RECORDS SUMMARY | 2020-01-20 00:51 | XMS REPORT | Continuity of Care Document ---
Demographics Preferred Language Unknown Marital Status Unknown Restorationism Affiliation Unknown Race Unknown Ethnic Group Unknown [...] Food Allergy N/A N/A 03/01/2013 Yes codeine [id number] Drug Allergy Unknown N/A 10/29/2014 Yes hydrochlorothiazide [id number] Drug Allergy Unknown N/A 10/29/2014 Yes ONION Food Allergy N/A N/A 10/30/2014 Yes codeine [id number] Drug Allergy Severe NECK SWELLING 01/02/2018 Yes hydrochlorothiazide [id number] Drug Allergy Severe NECK SWELLING 018 Yes dulaglutide [id number] Drug Aller gy Unknown N/A 12/11/2019 Yes codeine [id number] Drug Allergy Severe Neck swelling, 12/19/2019 Medications There is no data. Problems Date [...] PETERSON DOA K 784.0 Headache 02/08/2008 PETERSON ANHOMY PICKETT K V18.0 FAMILY HISTORY OF DIABETES MELLITUS 02/08/2008 BALBIR MORRISSEY APRN R 783.1 Weight Gain Abnormal 02/08/2008 BALBIR MORRISSEY APRN R 784.0 Headache 02/08/2008 BALBIR MORRISSEY APRN R V18.0 FAMILY HISTORY OF DIABETES MELLITUS [...] FAMILY HISTORY OF DIABETES MELLITUS 02/08/2008 BILL HORIZONTAL DRILL OPERATOR, CARISA S 783.1 Weight Gain Abnormal 02/08/2008 BILL HORIZONTAL DRILL OPERATOR, CARISA S 784.0 Headache 02/08/2008 BILL HORIZONTAL DRILL OPERATOR, CARISA S V18.0 FAMILY HISTORY OF DIABETES MELLITUS 02/08/2008 BILL HORIZONTAL DRILL OPERATOR, CARISA S 783.1 Weight Gain Abnormal 02/08/2008 BILL NATALIA, CARISA S 784.0 Headache 02/08/2008 BILL HORIZONTAL DRILL OPERATOR, CARISA S V18.0 FAMILY HISTORY OF DIABETES [...] FISHER, CARISA S 784.0 Headache 02/08/2008 BILL HORIZONTAL DRILL OPERATOR, CARISA S V18.0 FAMILY HISTORY OF DIABETES MELLITUS 02/08/2008 BILL FISHER, CARISA S 783.1 Weight Gain Abnormal 02/08/2008 BILL FISHER, CARISA S 784.0 Headache 02/08/2008 BILL HORIZONTAL DRILL OPERATOR, CARISA S V18.0 FAMILY HISTORY OF DIABETES MELLITUS 02/09/2008 250.00 Marnie betes Ii Controlled 02/09/2008 NAHOMY PETERSON DO 250.00 Diabetes Ii Controlled 02/09/2008 250.00 Marnie betes Ii Controlled 02/09/2008 250.00 Marnie betes Ii Controlled 02/09/2008 250.00 Marnie betes Ii Controlled 02/09/2008 250.00 Marnie betes Ii Controlled 02/09/2008 NAHOMY PETERSON DO 250.00 Diabetes Ii Controlled 02/09/2008 MORRISSEY HORIZONTAL DRILL OPERATOR, BALBIR R 250.00 Diabetes Ii Controlled 02/09/2008 BILL HORIZONTAL DRILL OPERATOR, CARISA S 250.00 Diabetes Ii Controlled 02/09/2008 BILL HORIZONTAL DRILL OPERATOR, CARISA S 250.00 Diabetes Ii Controlled 02/09/2008 GHANSHYAM HORIZONTAL DRILL OPERATOR, BALBIR R 250.00 Diabetes Ii Controlled 02/09/2008 JAZZMINE HORIZONTAL DRILL OPERATOR, RUTH A 250.00 Diabetes Ii Controlled 02/09/2008 BILL FISHER, CARISA S 250.00 Diabetes Ii Controlled 02/09/2008 BILL HORIZONTAL DRILL OPERATOR, CARISA S 250.00 Diabetes Ii Controlled 02/09/2008 GHANSHYAM CHRISTYN, BALBIR R 250.00 Diabetes Ii Controlled 02/09/2008 BILL [...] MORRISSEY APRNIA R 462 Pharyngitis Acute 08/01/2008 BILL HORIZONTAL DRILL OPERATOR, CARISA S 462 Pharyngitis Acute 08/01/2008 BILL HORIZONTAL DRILL OPERATOR, CARISA S 462 Pharyngitis Acute 08/01/2008 BILL HORIZONTAL DRILL OPERATOR, CARISA S 462 Pharyngitis Acute 12/18/2008 599.0 Urin aditi Tract Infection 12/18/2008 PETERSON DOCAROLA K 599.0 Urinary Tract Infection 12/18/2008 599.0 Urin aditi Tract Infection 12/18/2008 599.0 Urin aditi Tract Infection 12/18/2008 599.0 Urin aditi Tract Infection 12/18/2008 599.0 Urin aditi Tract Infection 12/18/2008 PETERSON DOCAROLA K 599.0 Urinary Tract Infection 12/18/2008 MORRISSEY HORIZONTAL DRILL OPERATOR, BALBIR R 599.0 Urinary Tract Infection 12/18/2008 BILL HORIZONTAL DRILL OPERATOR, CARISA S 599.0 Urinary Tract Infection 12/18/2008 BILL HORIZONTAL DRILL OPERATOR, CARISA S 599.0 Urinary Tract Infection 12/18/2008 MORRISSEY HORIZONTAL DRILL OPERATOR, BALBIR R 599.0 Urinary Tract Infection 12/18/2008 JAZZMINE HORIZONTAL DRILL OPERATOR, RUTH A 59 9.0 Urinary Tract Infection 12/18/2008 BILL HORIZONTAL DRILL OPERATOR, CARISA S 599.0 Urinary Tract Infection 12/18/2008 BILL HORIZONTAL DRILL OPERATOR, CARIAS S 599.0 Urinary Tract Infection 12/18/2008 MORRISSEY HORIZONTAL DRILL OPERATOR, BALBIR R 599.0 Urinary Tract Infection 12/18/2008 BILL HORIZONTAL DRILL OPERATOR, CARISA S 599.0 Urinary Tract Infection 12/18/2008 BILL HORIZONTAL DRILL OPERATOR, CARISA S 599.0 Urinary Tract Infection 12/18/2008 BILL HORIZONTAL DRILL OPERATOR, CARISA S 599.0 Urinary Tract Infection 01/22/2009 401.1 ESSE NTIAL HYPERTENSION BENIGN 01/22/2009 NAHOMY PETERSON DO K 401.1 ESSENTIAL HYPERTENSION BENIGN 01/22/2009 401.1 ESSE NTIAL HYPERTENSION BENIGN 01/22/2009 401.1 ESSE NTIAL HYPERTENSION BENIGN 01/22/2009 401.1 ESSE NTIAL HYPERTENSION BENIGN 01/22/2009 401.1 ESSE NTIAL HYPERTENSION BENIGN 01/22/2009 NAHOMY PETERSON DO K 401.1 ESSENTIAL HYPERTENSION BENIGN 01/22/2009 GHANSHYAM HORIZONTAL DRILL OPERATORFANY [place]BALBIR R 401.1 ESSENTIAL HYPERTENSION BENIGN 01/22/2009 BILL HORIZONTAL DRILL OPERATOR, CARISA S 401.1 ESSENTIAL HYPERTENSION BENIGN 01/22/2009 BILL HORIZONTAL DRILL OPERATOR, CARISA S 401.1 ESSENTIAL HYPERTENSION BENIGN 01/22/2009 MORRISSEY HORIZONTAL DRILL OPERATORFANY [place]BALB[place] R 401.1 ESSENTIAL HYPERTENSION BENIGN 01/22/2009 JAZZMINELIZZ FISHER RUTH A 40 1.1 ESSENTIAL HYPERTENSION BENIGN 01/22/2009 BILL HORIZONTAL DRILL OPERATOR, CARISA S 401.1 ESSENTIAL HYPERTENSION BENIGN 01/22/2009 BILL HORIZONTAL DRILL OPERATOR, CARISA S 401.1 ESSENTIAL HYPERTENSION BENIGN 01/22/2009 FANY MORRISSEY APRNRICIA R 401.1 ESSENTIAL HYPERTENSION BENIGN 01/22/2009 BILL HORIZONTAL DRILL OPERATOR, CARISA S 401.1 ESSENTIAL HYPERTENSION BENIGN 01/22/2009 BILL HORIZONTAL DRILL OPERATOR, CARISA S 401.1 ESSENTIAL HYPERTENSION BENIGN 01/22/2009 BILL HORIZONTAL DRILL OPERATOR, CARISA S 401.1 ESSENTIAL HYPERTENSION BENIGN 08/07/2009 719.47 Nai n In Joint, Ankle And Foot 08/07/2009 NAHOMY PETERSON DO K 719.47 Pain In Joint, Ankle And Foot 08/07/2009 719.47 Nai n In Joint, Ankle And Foot 08/07/2009 719.47 Nai n In Joint, Ankle And Foot 08/07/2009 719.47 Nai n In Joint, Ankle And Foot 08/07/2009 719.47 Nai n In Joint, Ankle And Foot 08/07/2009 [...] Pain In Joint, Ankle And Foot 08/07/2009 JAZZMINE APRN, RUTH A 719.47 Pain In Joint, Ankle And Foot 08/07/2009 GEORGETTE KHAN APRNNDA S 719.47 Pain In Joint, Ankle And Foot 08/07/2009 BILL HORIZONTAL DRILL OPERATOR, CARISA S 719.47 Pain In Joint, Ankle And Foot 08/07/2009 FANY MORRISSEY APRNRICIA R 719.47 Pain In Joint, Ankle And Foot 08/07/2009 BILL HORIZONTAL DRILL OPERATOR, CARISA S 719.47 Pain In Joint, Ankle And Foot 08/07/2009 BILL HORIZONTAL DRILL OPERATOR, CARISA S 719.47 Pain In Joint, Ankle And Foot 08/07/2009 BILL HORIZONTAL DRILL OPERATOR, CARISA S 719.47 Pain In Joint, Ankle And Foot 08/11/2009 780.79 Fatigue 08/11/2009 NAHOMY PETERSON DO 780.79 Fatigue 08/11/2009 780.79 Fatigue 08/11/2009 780.79 Fatigue 08/11/2009 780.79 Fatigue 08/11/2009 780.79 Fatigue 08/11/2009 NAHOMY PETERSON DO K 780.79 Fatigue 08/11/2009 RADHA MORRISSEY APRNIA R 780.79 Fatigue 08/11/2009 BILLHIRA FISHER CARISA S 780.79 Fatigue 08/11/2009 BILL FISHER CARISA S 780.79 Fatigue 08/11/2009 FANY MORRISSEY APRNRICIA R 780.79 Fatigue 08/11/2009 RUTH DOVER APRN 780.79 Fatigue 08/11/2009 BILL HORIZONTAL DRILL OPERATOR, CARISA S 780.79 Fatigue 08/11/2009 BILL HORIZONTAL DRILL OPERATOR, CARISA S 780.79 Fatigue 08/11/2009 FANY MORRISSEY APRNRICIA R 780.79 Fatigue 08/11/2009 BILL HORIZONTAL DRILL OPERATOR, CARSIA S 780.79 Fatigue 08/11/2009 BILL HORIZONTAL DRILL OPERATOR, CARISA S 780.79 Fatigue 08/11/2009 BILL HORIZONTAL DRILL OPERATOR, CARISA S 780.79 Fatigue 09/09/2009 V74.1 Scre [...] Screening Examination For Pulmonary Tuberculosis 09/09/2009 GHANSHYAM FISHER BALBIR R V74.1 Screening Examination For Pulmonary Tuberculosis 09/09/2009 BILL HORIZONTAL DRILL OPERATOR, CARISA S V74.1 Screening Examination For Pulmonary Tuberculosis 09/09/2009 BILL HORIZONTAL DRILL OPERATOR, CARISA S V74.1 Screening Examination For Pulmonary Tuberculosis 09/09/2009 GHANSHYAM FISHER, BALBIR R V74.1 Screening Examination For Pulmonary Tuberculosis 09/09/2009 JAZZMINE FISHER, RUTH A V7 4.1 Screening Examination For Pulmonary Tuberculosis 09/09/2009 BILL HORIZONTAL DRILL OPERATOR, CARISA S V74.1 Screening Examination For Pulmonary Tuberculosis 09/09/2009 BILL FISHER, CARISA S V74.1 Screening Examination For Pulmonary Tuberculosis 09/09/2009 FANY MORRISSEY APRNRICIA R V74.1 Screening Examination For Pulmonary Tuberculosis 09/09/2009 BILL FISHER, CARISA S V74.1 Screening Examination For Pulmonary Tuberculosis 09/09/2009 BILL FISHER, CARISA S V74.1 Screening Examination For Pulmonary Tuberculosis 09/09/2009 BILLHIRA FISHER, CARISA S V74.1 Screening Examination For [...] APRNRICIA R V72.31 Routine Gynecological Examination 09/15/2009 YU DOVER APRNIDI A V72.31 Routine Gynecological Examination 09/15/2009 BILL HORIZONTAL DRILL OPERATOR, CARISA S V72.31 Routine Gynecological Examination 09/15/2009 BILL HORIZONTAL DRILL OPERATOR, CARISA S V72.31 Routine Gynecological Examination 09/15/2009 GHANSHYAM HORIZONTAL DRILL OPERATORFANY [place] V72.31 Routine Gynecological Examination 09/15/2009 BILL HORIZONTAL DRILL OPERATOR, CARISA S V72.31 Routine Gynecological Examination 09/15/2009 BILL HORIZONTAL DRILL OPERATOR, CARISA S V72.31 Routine Gynecological Examination 09/15/2009 BILL HORIZONTAL DRILL OPERATOR, CARISA S V72.31 Routine Gynecological Examination 12/11/2009 [...] R 300.00 Anxiety State, Unspecified 12/11/2009 BILL HORIZONTAL DRILL OPERATOR, CARISA S 300.00 Anxiety State, Unspecified 12/11/2009 BILL HORIZONTAL DRILL OPERATOR CARISA S 300.00 Anxiety State, Unspecified 12/11/2009 FANY MORRISSEY APRNRICIA R 300.00 Anxiety State, Unspecified 12/11/2009 JAZZMINE FISHER RUTH A 300.00 Anxiety State, Unspecified 12/11/2009 BILL HORIZONTAL DRILL OPERATOR, CARISA S 300.00 Anxiety State, Unspecified 12/11/2009 BILL HORIZONTAL DRILL OPERATOR, CARISA S 300.00 Anxiety State, Unspecified 12/11/2009 FANY MORRISSEY APRNRICIA R 300.00 Anxiety State, Unspecified 12/11/2009 BILL HORIZONTAL DRILL OPERATOR, CARISA S 300.00 Anxiety State, Unspecified 12/11/2009 BILL HORIZONTAL DRILL OPERATOR, CARISA S 300.00 Anxiety State, Unspecified 12/11/2009 BILL HORIZONTAL DRILL OPERATOR, CARISA S 300.00 Anxiety State, Unspecified 04/27/2011 [...] NAHOMY K 727.43 Ganglion Unspecified 04/27/2011 MORRISSEY HORIZONTAL DRILL OPERATOR, BALBIR R 461.0 Acute Maxillary Sinusitis 04/27/2011 MORRISSEY HORIZONTAL DRILL OPERATOR, BALBIR R 727.43 Ganglion Unspecified 04/27/2011 BILL HORIZONTAL DRILL OPERATOR, CARISA S 461.0 Acute Maxillary Sinusitis 04/27/2011 BILL HORIZONTAL DRILL OPERATOR, CARISA S 727.43 Ganglion Unspecified 04/27/2011 BILL HORIZONTAL DRILL OPERATOR, CARISA S 461.0 Acute Maxillary Sinusitis 04/27/2011 BILL HORIZONTAL DRILL OPERATOR, CARISA S 727.43 Ganglion Unspecified 04/27/2011 MORRISSEY HORIZONTAL DRILL OPERATOR, BALBIR R 461.0 Acute Maxillary Sinusitis 04/27/2011 MORRISSEY HORIZONTAL DRILL OPERATOR, BALBIR R 727.43 Ganglion Unspecified 04/27/2011 JAZZMINE HORIZONTAL DRILL OPERATOR, RUTH A 46 1.0 Acute Maxillary Sinusitis 04/27/2011 JAZZMINE HORIZONTAL DRILL OPERATOR, RUTH A 727.43 Ganglion Unspecified 04/27/2011 BILL HORIZONTAL DRILL OPERATOR, CARISA S 461.0 Acute Maxillary Sinusitis 04/27/2011 BILL HORIZONTAL DRILL OPERATOR, CARISA S 727.43 Ganglion Unspecified 04/27/2011 BILL HORIZONTAL DRILL OPERATOR, CARISA S 461.0 Acute Maxillary Sinusitis 04/27/2011 BILL HORIZONTAL DRILL OPERATOR, CARISA S 727.43 Ganglion Unspecified 04/27/2011 GHANSHYAM HORIZONTAL DRILL OPERATOR, BALBIR R 461.0 Acute Maxillary Sinusitis 04/27/2011 MORRISSEY HORIZONTAL DRILL OPERATOR, BALBIR R 727.43 Ganglion Unspecified 04/27/2011 BILL HORIZONTAL DRILL OPERATOR, CARISA S 461.0 Acute Maxillary Sinusitis 04/27/2011 BILL HORIZONTAL DRILL OPERATOR, CARISA S 727.43 Ganglion Unspecified 04/27/2011 BILL HORIZONTAL DRILL OPERATOR, CARISA S 461.0 Acute Maxillary Sinusitis 04/27/2011 BILL HORIZONTAL DRILL OPERATOR, CARISA S 727.43 Ganglion Unspecified 04/27/2011 BILL HORIZONTAL DRILL OPERATOR, CARISA S 461.0 Acute Maxillary Sinusitis 04/27/2011 BILL HORIZONTAL DRILL OPERATOR, CARISA S 727.43 Ganglion Unspecified 07/01/2011 Ot 784.0 HEAD ACHE 07/01/2011 Ot 786.52 NAI NFUL RESPIRATION 07/15/2011 300.00 ANX IETY DISORDER NOS 07/15/2011 NAHOMY PETERSON DO K 300.00 ANXIETY DISORDER NOS 07/15/2011 300.00 ANX IETY DISORDER NOS 07/15/2011 300.00 ANX IETY DISORDER NOS 07/15/2011 300.00 ANX IETY DISORDER NOS 07/15/2011 300.00 ANX IETY DISORDER NOS 07/15/2011 NAHOMY PETERSON DO K 300.00 ANXIETY DISORDER NOS 07/15/2011 GHANSHYAM FISHER, BALBIR R 300.00 ANXIETY DISORDER NOS 07/15/2011 GEORGETTE KHAN APRNNDA S 300.00 ANXIETY DISORDER NOS 07/15/2011 GEORGETTE KHAN APRNNDA S 300.00 ANXIETY DISORDER NOS 07/15/2011 FANY MORRISSEY APRNRICIA R 300.00 ANXIETY DISORDER NOS 07/15/2011 JAZZMINECelso FISHER RUTH A 300.00 ANXIETY DISORDER NOS 07/15/2011 BILL FISHER CARISA S 300.00 ANXIETY DISORDER NOS 07/15/2011 BILL FISHER, CARISA S 300.00 ANXIETY DISORDER NOS 07/15/2011 GHANSHYAM FISHER, BALBIR R 300.00 ANXIETY DISORDER NOS 07/15/2011 GEORGETTE KHAN APRNNDA S 300.00 ANXIETY DISORDER NOS 07/15/2011 GEORGETTE KHAN APRNNDA S 300.00 ANXIETY DISORDER NOS 07/15/2011 GEORGETTE [...] R 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 08/18/2011 YU DOVER APRNIDI A 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 08/18/2011 [...] DO K 465.9 UPPER RESPIRATORY INFECTION 08/25/2011 465.9 UPPE R RESPIRATORY INFECTION 08/25/2011 465.9 UPPE R RESPIRATORY INFECTION 08/25/2011 465.9 UPPE R RESPIRATORY INFECTION 08/25/2011 465.9 UPPE R RESPIRATORY INFECTION 08/25/2011 KRISTEN PICKETT NAHOMY K 465.9 UPPER RESPIRATORY INFECTION 08/25/2011 BALBIR MORRISSEY APRN R 465.9 UPPER RESPIRATORY INFECTION 08/25/2011 BILL HORIZONTAL DRILL OPERATOR, CARISA S 465.9 UPPER RESPIRATORY INFECTION 08/25/2011 BILL HORIZONTAL DRILL OPERATOR, CARISA S 465.9 UPPER RESPIRATORY INFECTION 08/25/2011 GHANSHYAM HORIZONTAL DRILL OPERATOR, BALBIR R 465.9 UPPER RESPIRATORY INFECTION 08/25/2011 JAZZMINE HORIZONTAL DRILL OPERATOR, RUTH A 46 5.9 UPPER RESPIRATORY INFECTION 08/25/2011 BILL HORIZONTAL DRILL OPERATOR, CARISA S 465.9 UPPER RESPIRATORY INFECTION 08/25/2011 BILL HORIZONTAL DRILL OPERATOR, CARISA S 465.9 UPPER RESPIRATORY INFECTION 08/25/2011 GHANSHYAM HORIZONTAL DRILL OPERATOR, BALBIR R 465.9 UPPER RESPIRATORY INFECTION 08/25/2011 BILL HORIZONTAL DRILL OPERATOR, CARISA S 465.9 UPPER RESPIRATORY INFECTION 08/25/2011 BILL HORIZONTAL DRILL OPERATOR, CARISA S 465.9 UPPER RESPIRATORY INFECTION 08/25/2011 BILL HORIZONTAL DRILL OPERATOR, CARISA S 465.9 UPPER RESPIRATORY INFECTION 09/01/2011 311 MO DEP RESS NOS 09/01/2011 CAROL PETERSON DOA K 311 MO DEPRESS NOS 09/01/2011 311 MO DEP RESS NOS 09/01/2011 311 MO DEP RESS NOS 09/01/2011 311 MO DEP RESS NOS 09/01/2011 311 MO DEP RESS NOS 09/01/2011 CAROL PETERSON DOA K 311 MO DEPRESS NOS 09/01/2011 RADHA MORRISSEY APRNIA R 311 MO DEPRESS NOS 09/01/2011 BILL HORIZONTAL DRILL OPERATOR, CARISA S 311 MO DEPRESS NOS 09/01/2011 BILL HORIZONTAL DRILL OPERATOR, CARISA S 311 MO DEPRESS NOS 09/01/2011 BALBIR MORRISSEY APRN R 311 MO DEPRESS NOS 09/01/2011 JAZZMINE HORIZONTAL DRILL OPERATOR, RUTH A 31 1 MO DEPRESS NOS 09/01/2011 BILL HORIZONTAL DRILL OPERATOR, CARISA S 311 MO DEPRESS NOS 09/01/2011 BILL HORIZONTAL DRILL OPERATOR, CARISA S 311 MO DEPRESS NOS 09/01/2011 BALBIR MORRISSEY APRN R 311 MO DEPRESS NOS 09/01/2011 BILL HORIZONTAL DRILL OPERATOR, CARISA S 311 MO DEPRESS NOS 09/01/2011 BILL HORIZONTAL DRILL OPERATOR, CARISA S 311 MO DEPRESS NOS 09/01/2011 BILL HORIZONTAL DRILL OPERATOR, CARISA S 311 MO DEPRESS NOS 09/02/2011 466.0 ACUT E BRONCHITIS 09/02/2011 NAHOMY PETERSON DO 466.0 ACUTE BRONCHITIS 09/02/2011 466.0 ACUT E BRONCHITIS 09/02/2011 466.0 ACUT E BRONCHITIS 09/02/2011 466.0 ACUT E BRONCHITIS 09/02/2011 466.0 ACUT E BRONCHITIS 09/02/2011 NAHOMY PETERSON DO 466.0 ACUTE BRONCHITIS 09/02/2011 BALBIR MORRISSEY APRN R 466.0 ACUTE BRONCHITIS 09/02/2011 GEORGETTE KHAN APRNNDA S 466.0 ACUTE BRONCHITIS 09/02/2011 BILL FISHER CARISA S 466.0 ACUTE BRONCHITIS 09/02/2011 BALBIR MORRISSEY APRN R 466.0 ACUTE BRONCHITIS 09/02/2011 JAZZMINELIZZ FISHER RUTH A 46 6.0 ACUTE BRONCHITIS 09/02/2011 BILL FISHER CARISA S 466.0 ACUTE BRONCHITIS 09/02/2011 BILL FISHER CARISA S 466.0 ACUTE BRONCHITIS 09/02/2011 BALBIR MORRISSEY APRN R 466.0 ACUTE BRONCHITIS 09/02/2011 BILL FISHER CARISA S 466.0 ACUTE BRONCHITIS 09/02/2011 BILL FISHER CARISA S 466.0 ACUTE BRONCHITIS 09/02/2011 BILL FISHER CARISA S 466.0 ACUTE BRONCHITIS 04/06/2012 Ot 401.9 [...] APRN R 462 ACUTE PHARYNGITIS 05/16/2012 BILL HORIZONTAL DRILL OPERATOR, CARISA S 462 ACUTE PHARYNGITIS 05/16/2012 GEORGETTE KHAN APRNNDA S 462 ACUTE PHARYNGITIS 05/16/2012 BALBIR MORRISSEY APRN R 462 ACUTE PHARYNGITIS 05/16/2012 RUTH DOVER APRN A 46 2 ACUTE PHARYNGITIS 05/16/2012 SHANNON KHAN APRNA S 462 ACUTE PHARYNGITIS 05/16/2012 SHANNON KHAN APRNA S 462 ACUTE PHARYNGITIS 05/16/2012 BALBIR MORRISSEY APRN R 462 ACUTE PHARYNGITIS 05/16/2012 SHANNON KHAN APRNA S 462 ACUTE PHARYNGITIS 05/16/2012 SHANNON KHAN APRNA S 462 ACUTE PHARYNGITIS 05/16/2012 SHANNON KHAN [...] (3 YRS AND ABOVE, IM) 05/25/2012 BILL HORIZONTAL DRILL OPERATOR, CARISA S V04.81 FLU DX (3 YRS AND ABOVE, IM) 05/25/2012 BILL HORIZONTAL DRILL OPERATOR, CARISA S V04.81 FLU DX (3 YRS AND ABOVE, IM) 05/25/2012 GHANSHYAM FISHER, BALBIR R V04.81 FLU DX (3 YRS AND ABOVE, IM) 05/25/2012 BILL HORIZONTAL DRILL OPERATOR, CARISA S V04.81 FLU DX (3 YRS AND ABOVE, IM) 05/25/2012 BILL HORIZONTAL DRILL OPERATOR, CARISA S V04.81 FLU DX (3 YRS AND ABOVE, IM) 05/25/2012 BILL HORIZONTAL DRILL OPERATOR, CARISA S V04.81 FLU DX (3 YRS AND ABOVE, IM) 08/16/2012 461.9 SINU SITIS ACUTE 08/16/2012 784.0 HEADACHE 08/16/2012 PETERSON DO NAHOMY K 461.9 SINUSITIS ACUTE 08/16/2012 KRISTEN PICKETTCAROLA K 784.0 HEADACHE 08/16/2012 461.9 SINU SITIS ACUTE 08/16/2012 784.0 HEADACHE 08/16/2012 461.9 SINU SITIS ACUTE 08/16/2012 784.0 HEADACHE 08/16/2012 461.9 SINU SITIS ACUTE 08/16/2012 784.0 HEADACHE 08/16/2012 461.9 SINU SITIS ACUTE 08/16/2012 784.0 HEADACHE 08/16/2012 PETERSON DO NAHOMY K 461.9 SINUSITIS ACUTE 08/16/2012 KRISTEN PICKETT NAHOMY K 784.0 HEADACHE 08/16/2012 FANY MORRISSEY APRNRICIA R 461.9 SINUSITIS ACUTE 08/16/2012 FANY MORRISSEY APRNRICIA R 784.0 HEADACHE 08/16/2012 BILL HORIZONTAL DRILL OPERATOR, CARISA S 461.9 SINUSITIS ACUTE 08/16/2012 BILL CHRISTYN, CARISA S 784.0 HEADACHE 08/16/2012 BILL HORIZONTAL DRILL OPERATOR, CARISA S 461.9 SINUSITIS ACUTE 08/16/2012 BILL HORIZONTAL DRILL OPERATOR, CARISA S 784.0 HEADACHE 08/16/2012 RADHA MORRISSEY APRNIA R 461.9 SINUSITIS ACUTE 08/16/2012 MORRISSEY HORIZONTAL DRILL OPERATOR, BALBIR R 784.0 HEADACHE 08/16/2012 JAZZMINE HORIZONTAL DRILL OPERATOR, RUTH A 46 1.9 SINUSITIS ACUTE 08/16/2012 JAZZMINE HORIZONTAL DRILL OPERATOR, RUTH A 78 4.0 HEADACHE 08/16/2012 BILL HORIZONTAL DRILL OPERATOR, CARISA S 461.9 SINUSITIS ACUTE 08/16/2012 BILL HORIZONTAL DRILL OPERATOR, CARISA S 784.0 HEADACHE 08/16/2012 MORRISSEY HORIZONTAL DRILL OPERATOR, BALBIR R 461.9 SINUSITIS ACUTE 08/16/2012 MORRISSEY HORIZONTAL DRILL OPERATOR, BALBIR R 784.0 HEADACHE 08/16/2012 BILL HORIZONTAL DRILL OPERATOR, CARISA S 461.9 SINUSITIS ACUTE 08/16/2012 BILL HORIZONTAL DRILL OPERATOR, CARISA S 784.0 HEADACHE 08/16/2012 BILL HORIZONTAL DRILL OPERATOR, CARISA S 461.9 SINUSITIS ACUTE 08/16/2012 BILL HORIZONTAL DRILL OPERATOR, CARISA S 784.0 HEADACHE 08/16/2012 BILL HORIZONTAL DRILL OPERATOR, CARISA S 461.9 SINUSITIS ACUTE 08/16/2012 BILL HORIZONTAL DRILL OPERATOR, CARISA S 784.0 HEADACHE 09/04/2012 NAHOMY PETERSON [...] CERVICAL CANCER SCREENING (PAP SMEAR) 09/04/2012 GHANSHYAM HORIZONTAL DRILL OPERATOR, BALBIR R 278.00 OBESITY 09/04/2012 GHANSHYAM HORIZONTAL DRILL OPERATOR, BALBIR R V73.81 HPV SCREENING 09/04/2012 MORRISSEY HORIZONTAL DRILL OPERATOR, BALIBR R V76.2 CERVICAL CANCER SCREENING (PAP SMEAR) 09/04/2012 BILL FISHER, CARISA S 278.00 OBESITY 09/04/2012 BILL FISHER CARISA S V73.81 HPV SCREENING 09/04/2012 BILL CHRISTYN CARISA S V76.2 CERVICAL CANCER SCREENING (PAP SMEAR) 09/04/2012 BILL FISHER CARISA S 278.00 OBESITY 09/04/2012 BILL FISHER CARISA S V73.81 HPV SCREENING 09/04/2012 BILL FISHER CARISA S V76.2 CERVICAL CANCER SCREENING (PAP SMEAR) 09/04/2012 FANY MORRISSEY APRNRICIA R 278.00 OBESITY 09/04/2012 FANY MORRISSEY APRNRICIA R V73.81 HPV SCREENING 09/04/2012 FANY MORRISSEY APRNRICIA R V76.2 CERVICAL CANCER SCREENING (PAP SMEAR) 09/04/2012 JAZZMINE APRN, RUTH A 278.00 OBESITY 09/04/2012 JAZZMINE FISHER RUTH A V73.81 HPV SCREENING 09/04/2012 JAZZMINECelso FISHER RUTH A V7 6.2 CERVICAL CANCER SCREENING (PAP SMEAR) 09/04/2012 BILL FISHER, CARISA S 278.00 OBESITY 09/04/2012 BILL FISHER CARISA S V73.81 HPV SCREENING 09/04/2012 BILL FISHER ACRISA S V76.2 CERVICAL CANCER SCREENING (PAP SMEAR) 09/04/2012 FANY MORRISSEY APRNRICIA R 278.00 OBESITY 09/04/2012 GHANSHYAM FISHER BALBIR R V73.81 HPV SCREENING 09/04/2012 GHANSHYAM FISHER BALBIR R V76.2 CERVICAL CANCER SCREENING (PAP SMEAR) 09/04/2012 BILL FISHER CARISA S 278.00 OBESITY 09/04/2012 BILL FISHER CARISA S V73.81 HPV SCREENING 09/04/2012 BILL FISHER, CARISA S V76.2 CERVICAL CANCER SCREENING (PAP SMEAR) 09/04/2012 BILL FISHER, CARISA S 278.00 OBESITY 09/04/2012 BILL HORIZONTAL DRILL OPERATOR, CARISA S V73.81 HPV SCREENING 09/04/2012 BILL HORIZONTAL DRILL OPERATOR, CARISA S V76.2 CERVICAL CANCER SCREENING (PAP SMEAR) 09/04/2012 BILL FISHER, CARISA S 278.00 OBESITY 09/04/2012 BILL FISHER, CARISA S V73.81 HPV SCREENING 09/04/2012 BILL HORIZONTAL DRILL OPERATOR, CARISA S V76.2 CERVICAL CANCER SCREENING (PAP SMEAR) 11/07/2012 786.2 cough 11/07/2012 786.2 cough 11/07/2012 786.2 cough 11/07/2012 786.2 cough 11/07/2012 NAHOMY PETERSON DO K 786.2 cough 11/07/2012 RADHA MORRISSEY APRNIA R 786.2 cough 11/07/2012 BILL FISHER CARISA S 786.2 COUGH 11/07/2012 BILL FISHER, CARISA S 786.2 COUGH 11/07/2012 GHANSHYAM FISHER, BALBIR R 786.2 COUGH 11/07/2012 RUTH DOVER APRN 78 6.2 COUGH 11/07/2012 BILL FISHER, CARISA [...] 701.9 SKIN TAG 11/21/2012 NAHOMY PETERSON DO K 701.9 SKIN TAG 11/21/2012 BALBIR MORRISSEY APRN R 701.9 SKIN TAG 11/21/2012 BILL HORIZONTAL DRILL OPERATOR, CARISA S 701.9 SKIN TAG 11/21/2012 BILL HORIZONTAL DRILL OPERATOR, CARISA S 701.9 SKIN TAG 11/21/2012 RADHA MORRISSEY APRNIA R 701.9 SKIN TAG 11/21/2012 JAZZMINE HORIZONTAL DRILL OPERATORRUTH [place] A 70 1.9 SKIN TAG 11/21/2012 BILL HORIZONTAL DRILL OPERATOR, CARISA S 701.9 SKIN TAG 11/21/2012 BALBIR MORRISSEY APRN R 701.9 SKIN TAG 11/21/2012 BILL CHRISTYN, CARISA S 701.9 SKIN TAG 11/21/2012 BILL CHRISTYN, CARISA S 701.9 SKIN TAG 11/21/2012 BILL HORIZONTAL DRILL OPERATOR, CARISA S 701.9 SKIN TAG 11/22/2012 Ot 698.9 PRUR ITIC DISORDER NOS 11/22/2012 Ot 784.2 SWEL LING IN HEAD NECK 11/22/2012 Ot 995.27 OT ER DRUG ALLERGY 11/22/2012 Ot E944.3 ADV EFF SALURETICS 11/22/2012 Ot 300.00 ANX IETY STATE NOS 11/22/2012 Ot 401.9 HYPE RTENSION NOS 11/22/[address] PAIN NOS 11/23/2012 995.27 OTH ER DRUG ALLERGY 11/23/2012 995.27 OTH ER DRUG ALLERGY 11/23/2012 995.27 OTH ER DRUG ALLERGY 11/23/2012 NAHOMY PETERSON DO 995.27 OTHER DRUG ALLERGY 11/23/2012 BALBIR MORRISSEY APRN R 995.27 OTHER DRUG ALLERGY 11/23/2012 BILL FISHER CARISA S 995.27 OTHER DRUG ALLERGY 11/23/2012 BILL FISHER CARISA S 995.27 OTHER DRUG ALLERGY 11/23/2012 RADHA MORRISSEY APRNIA R 995.27 OTHER DRUG ALLERGY 11/23/2012 RUTH DOVER APRN A 995.27 OTHER DRUG ALLERGY 11/23/2012 BILL FISHER CARISA S 995.27 OTHER DRUG ALLERGY 11/23/2012 RADHA MORRISSEY APRNIA R 995.27 OTHER DRUG ALLERGY 11/23/2012 SHANNON KHAN APRNA S 995.27 OTHER DRUG ALLERGY 11/23/2012 BILL HORIZONTAL DRILL OPERATOR, CARISA S 995.27 OTHER DRUG ALLERGY 11/23/2012 BILL HORIZONTAL DRILL OPERATOR, CARISA S 995.27 OTHER DRUG ALLERGY 11/27/2012 Ot 729.1 MYAL GOPAL AND MYOSITIS NOS 11/27/2012 Ot 787.01 JASON SEA WITH VOMITING 11/27/2012 Ot 787.91 MARNIE RRHEA 01/23/2013 Ot 462 ACUTE PHARYNGITIS 03/01/2013 995.3 EDWAR RGY UNSPECIFIED NOT ELSEWHERE CLASSIFIED 03/01/2013 PETERSON DO, NAHOMY K 995.3 ALLERGY UNSPECIFIED NOT ELSEWHERE CLASSIFIED 03/01/2013 GHANSHYAM HORIZONTAL DRILL OPERATOR BALBIR R 995.3 ALLERGY UNSPECIFIED NOT ELSEWHERE CLASSIFIED 03/01/2013 BILL HORIZONTAL DRILL OPERATOR, CARISA S 995.3 ALLERGY UNSPECIFIED NOT ELSEWHERE CLASSIFIED 03/01/2013 BILL HORIZONTAL DRILL OPERATOR, CARISA S 995.3 ALLERGY UNSPECIFIED NOT ELSEWHERE CLASSIFIED 03/01/2013 GHANSHYAM HORIZONTAL DRILL OPERATOR, BALBIR R 995.3 ALLERGY UNSPECIFIED NOT ELSEWHERE CLASSIFIED 03/01/2013 JAZZMINE HORIZONTAL DRILL OPERATOR, RUTH A 99 5.3 ALLERGY UNSPECIFIED NOT ELSEWHERE CLASSIFIED 03/01/2013 BILL HORIZONTAL DRILL OPERATOR, CARISA S 995.3 ALLERGY UNSPECIFIED NOT ELSEWHERE CLASSIFIED 03/01/2013 GHANSHYAM HORIZONTAL DRILL OPERATOR BALBIR R 995.3 ALLERGY UNSPECIFIED NOT ELSEWHERE CLASSIFIED 03/01/2013 BILL HORIZONTAL DRILL OPERATOR, CARISA S 995.3 ALLERGY UNSPECIFIED NOT ELSEWHERE CLASSIFIED 03/01/2013 BILL HORIZONTAL DRILL OPERATOR, CARISA S 995.3 ALLERGY UNSPECIFIED NOT ELSEWHERE CLASSIFIED 03/01/2013 BILL HORIZONTAL DRILL OPERATOR, CARISA S 995.3 ALLERGY UNSPECIFIED NOT ELSEWHERE CLASSIFIED 05/16/2013 PETERSON DO, NAHOMY K 789.09 ABDOMINAL PAIN OTHER SPECIFIED SITE 05/16/2013 GHANSHYAM HORIZONTAL DRILL OPERATOR, BALBIR R 789.09 ABDOMINAL PAIN OTHER SPECIFIED SITE 05/16/2013 BILL HORIZONTAL DRILL OPERATOR, CARISA S 789.09 ABDOMINAL PAIN OTHER SPECIFIED SITE 05/16/2013 BILL HORIZONTAL DRILL OPERATOR, CARISA S 789.09 ABDOMINAL PAIN OTHER SPECIFIED SITE 05/16/2013 GHANSHYAM FISHER BALBIR R 789.09 ABDOMINAL PAIN OTHER SPECIFIED SITE 05/16/2013 JAZZMINE HORIZONTAL DRILL OPERATOR, RUTH A 789.09 ABDOMINAL PAIN OTHER SPECIFIED SITE 05/16/2013 BILL HORIZONTAL DRILL OPERATOR, CARISA S 789.09 ABDOMINAL PAIN OTHER SPECIFIED SITE 05/16/2013 FANY MORRISSEY APRNRICIA R 789.09 ABDOMINAL PAIN OTHER SPECIFIED SITE 05/16/2013 BILL HORIZONTAL DRILL OPERATOR, CARISA S 789.09 ABDOMINAL PAIN OTHER SPECIFIED SITE 05/16/2013 BILL HORIZONTAL DRILL OPERATOR, CARISA S 789.09 ABDOMINAL PAIN OTHER SPECIFIED SITE 05/16/2013 BILL HORIZONTAL DRILL OPERATOR, CARISA S 789.09 ABDOMINAL PAIN OTHER SPECIFIED SITE 06/04/2013 GHANSHYAM FISHER BALBIR R 729.5 PAIN IN LIMB 06/04/2013 BILL HORIZONTAL DRILL OPERATOR, CARISA S 729.5 PAIN IN LIMB 06/04/2013 BILL HORIZONTAL DRILL OPERATOR, CARISA S 729.5 PAIN IN LIMB 06/04/2013 GHANSHYAM FISHER BALBIR R 729.5 PAIN IN LIMB 06/04/2013 JAZZMINE HORIZONTAL DRILL OPERATOR, RUTH A 72 9.5 PAIN IN LIMB 06/04/2013 BILL HORIZONTAL DRILL OPERATOR, CARISA S 729.5 PAIN IN LIMB 06/04/2013 FANY MORRISSEY APRNRICIA R 729.5 PAIN IN LIMB 06/04/2013 BILL HORIZONTAL DRILL OPERATOR, CARISA S 729.5 PAIN IN LIMB 06/04/2013 BILL HORIZONTAL DRILL OPERATOR, CARISA S 729.5 PAIN IN LIMB 06/04/2013 BILL HORIZONTAL DRILL OPERATOR, CARISA S 729.5 PAIN IN LIMB 06/18/2013 BILL HORIZONTAL DRILL OPERATOR, CARISA S 573.8 OTHER SPECIFIED DISORDERS OF LIVER 06/18/2013 BILL HORIZONTAL DRILL OPERATOR, CARISA S 573.8 OTHER SPECIFIED DISORDERS OF LIVER 06/18/2013 FANY MORRISSEY APRNRICIA R 573.8 OTHER SPECIFIED DISORDERS OF LIVER 06/18/2013 JAZZMINE CHRISTYN, RUTH A 57 3.8 OTHER SPECIFIED DISORDERS OF LIVER 06/18/2013 BILL HORIZONTAL DRILL OPERATOR, CARISA S 573.8 OTHER SPECIFIED DISORDERS OF LIVER 06/18/2013 FANY MORRISSEY APRNRICIA R 573.8 OTHER SPECIFIED DISORDERS OF LIVER 06/18/2013 BILL HORIZONTAL DRILL OPERATOR, CARISA S 573.8 OTHER SPECIFIED DISORDERS OF LIVER 06/18/2013 BILL HORIZONTAL DRILL OPERATOR, CARISA S 573.8 OTHER SPECIFIED DISORDERS OF LIVER 06/18/2013 BILL HORIZONTAL DRILL OPERATOR, CARISA S 573.8 OTHER SPECIFIED DISORDERS OF LIVER 08/01/2013 Ot 462 ACUTE PHARYNGITIS 08/01/2013 Ot 487.1 FLU W RESP MANIFEST NEC 10/09/2013 BILL FISHER CARISA S 251.1 HYPERINSULINISM 10/09/2013 BILL FISHER, CARISA S 780.79 fatigue 10/09/2013 GHANSHYAM FISHER, BALBIR R 251.1 HYPERINSULINISM 10/09/2013 GHANSHYAM FISHER, BALBIR R 780.79 fatigue 10/09/2013 JAZZMINE FISHER, RUTH A 25 1.1 HYPERINSULINISM 10/09/2013 JAZZMINE FISHER, RUTH A 780.79 fatigue 10/09/2013 BILL FISHER, CARISA S 251.1 HYPERINSULINISM 10/09/2013 BILL FISHER, CARISA S 780.79 FATIGUE 10/09/2013 GHANSHYAM FISHER, BALBIR R 251.1 HYPERINSULINISM 10/09/2013 GHANSHYAM CHRISTYN, BALBIR R 780.79 FATIGUE 10/09/2013 BILL FISHER, CARISA S 251.1 HYPERINSULINISM 10/09/2013 BILL FISHER, CARISA S 780.79 FATIGUE 10/09/2013 BILL FISHER, CARISA S 251.1 HYPERINSULINISM 10/09/2013 BILL FISHER, CARISA S 780.79 FATIGUE 10/09/2013 BILL CHRISTYN, CARISA S 251.1 HYPERINSULINISM 10/09/2013 BILL CHRISTYN, CARISA S 780.79 FATIGUE 12/27/2013 GHANSHYAM FISHER, BALBIR R 034.0 STREP THROAT 12/27/2013 JAZZMINE FISHER, RUTH A 03 4.0 STREP THROAT 12/27/2013 BILL FISHER CARISA S 034.0 STREP THROAT 12/27/2013 GHANSHYAM FISHER, BALBIR R 034.0 STREP THROAT 12/27/2013 BILL FISHER CARISA S 034.0 STREP THROAT 12/27/2013 BILL HORIZONTAL DRILL OPERATOR, CARISA S 034.0 STREP THROAT 12/27/2013 BILL HORIZONTAL DRILL OPERATOR, CARISA S 034.0 STREP THROAT 01/03/2014 JAZZMINE HORIZONTAL DRILL OPERATOR, RUTH A 59 9.0 URINARY TRACT INFECTION 01/03/2014 BILL HORIZONTAL DRILL OPERATOR, CARISA S 599.0 URINARY TRACT INFECTION 01/03/2014 GHANSHYAM HORIZONTAL DRILL OPERATOR, BALBIR R 599.0 URINARY TRACT INFECTION 01/03/2014 BILL HORIZONTAL DRILL OPERATOR, CARISA S 599.0 URINARY TRACT INFECTION 01/03/2014 BILL HORIZONTAL DRILL OPERATOR, CARISA S 599.0 URINARY TRACT INFECTION 01/03/2014 BILL HORIZONTAL DRILL OPERATOR, CARISA S 599.0 URINARY TRACT INFECTION 02/10/2014 ENMA GARCIA MD Ot 346.90 MIGRAINE UNSPECIFIED W/O INTRACT MGRN W/ 02/10/2014 ENMA GARCIA MD Ot 784 .0 HEADACHE 02/18/2014 BILL FISHER, CARISA S 307.81 TENSION HEADACHE 02/18/2014 BILL FISHER, CARISA S 401.1 HYPERTENSION, BENIGN ESSENTIAL 02/18/2014 FANY MORRISSEY APRNRICIA R 307.81 TENSION HEADACHE 02/18/2014 GHANSHYAM FISHER BALBIR R 401.1 HYPERTENSION, BENIGN ESSENTIAL 02/18/2014 BILL FISHER, CARISA S 307.81 TENSION HEADACHE 02/18/2014 BILL FISHER, CARISA S 401.1 HYPERTENSION, BENIGN ESSENTIAL 02/18/2014 BILL FISHER, CARISA S 307.81 TENSION HEADACHE 02/18/2014 BILL FISHER, CARISA S 401.1 HYPERTENSION, BENIGN ESSENTIAL 02/18/2014 BILL CHRISTYN, CARISA S 307.81 TENSION HEADACHE 02/18/2014 BILL CHRISTYN, CARISA S 401.1 HYPERTENSION, BENIGN ESSENTIAL 03/08/2014 FANY MORRISSEY APRNRICIA R 477.8 ALLERGIC RHINITIS DUE TO OTHER ALLERGEN 03/08/2014 GHANSHYAM FISHER BALBIR R 784.0 HEADACHE 03/08/2014 BILL FISHER, CARISA S 477.8 ALLERGIC RHINITIS DUE TO OTHER ALLERGEN 03/08/2014 BILL FISHER CARISA S 784.0 HEADACHE 03/08/2014 BILL HORIZONTAL DRILL OPERATOR, CARISA S 477.8 ALLERGIC RHINITIS DUE TO OTHER ALLERGEN 03/08/2014 BILL HORIZONTAL DRILL OPERATOR, CARISA S 784.0 HEADACHE 03/08/2014 BILL HORIZONTAL DRILL OPERATOR, CARISA S 477.8 ALLERGIC RHINITIS DUE TO OTHER ALLERGEN 03/08/2014 BILL HORIZONTAL DRILL OPERATOR, CARISA S 784.0 HEADACHE 09/17/2014 BILL HORIZONTAL DRILL OPERATOR, CARISA S 465.9 UPPER RESPIRATORY INFECTION 09/17/2014 BILL HORIZONTAL DRILL OPERATOR, CARISA S 465.9 UPPER RESPIRATORY INFECTION 09/17/2014 BILL HORIZONTAL DRILL OPERATOR, CARISA S 465.9 UPPER RESPIRATORY INFECTION 09/25/2014 BILL HORIZONTAL DRILL OPERATOR, CARISA S 346.90 MIGRAINE HEADACHE 09/25/2014 BILL HORIZONTAL DRILL OPERATOR, CARISA S 786.2 COUGH 09/25/2014 BILL HORIZONTAL DRILL OPERATOR, CARISA S 346.90 MIGRAINE HEADACHE 09/25/2014 BILL HORIZONTAL DRILL OPERATOR, CARISA S 786.2 COUGH 09/25/2014 BILL HORIZONTAL DRILL OPERATOR, CARISA S 346.90 MIGRAINE HEADACHE 09/25/2014 BILL HORIZONTAL DRILL OPERATOR, CARISA S 786.2 COUGH 10/29/2014 ANDREEA WASHINGTON DO Ot 300.00 ANXIETY STATE NOS 10/29/2014 ANDEREA WASHINGTON DO Ot 529.6 GLOSSODYNIA 06/12/2016 Ot 573.8 LIVE R DISORDERS NEC 06/12/2016 Ot 789.09 ABD OMINAL PAIN, OTHER SPECIFIED SITE 06/12/2016 Ot 573.8 LIVE R DISORDERS NEC 06/12/2016 CARISA KHAN THIRD STEEL POURER Ot 573.8 LIVER DISORDERS NEC 06/14/2016 TORRES [...] 89 OTHER CHEST PAIN 06/14/2016 TORRES BANKS MD, Ot Z68. 43 BODY MASS INDEX (BMI) 50-59.9 , ADULT 06/14/2016 TORRES BANKS MD, Ot Z79. 84 FORMULA BOTTLER (CURRENT) USE OF ORAL HYPOGLYC 07/13/2016 ANNA OSBORN MDNT A Ot E11. 9 TYPE 2 DIABETES MELLITUS WITHOUT COMPLIC 07/13/2016 ANNA OSBORN MDNT A Ot I10 ESSENTIAL (PRIMARY) HYPERTENSION 07/13/2016 ANNA OSBORN MDNT A Ot J02. 0 STREPTOCOCCAL PHARYNGITIS 07/13/2016 ANNA OSBORN MDNT A Ot J02. 9 ACUTE PHARYNGITIS, UNSPECIFIED 07/13/2016 LEIGHA OSBORN MD A Ot Z79. 84 FORMULA BOTTLER (CURRENT) USE OF ORAL HYPOGLYC 07/13/2016 ANNA OSBORN MDNT A Ot Z79.899 OTHER RESIDENTIAL (CURRENT) DRUG THERAPY 07/14/2016 LEIGHA OSBORN MD A Ot E11. 9 TYPE 2 DIABETES MELLITUS WITHOUT COMPLIC 07/14/2016 LEIGHA OSBORN MD A Ot I10 ESSENTIAL (PRIMARY) HYPERTENSION 07/14/2016 ANNA OSBORN MDNT A Ot J02. 0 STREPTOCOCCAL PHARYNGITIS 07/14/2016 ANNA OSBORN MDNT A Ot J02. 9 ACUTE PHARYNGITIS, UNSPECIFIED 07/14/2016 LEIGHA OSBORN MD A Ot Z79. 84 FORMULA BOTTLER (CURRENT) USE OF ORAL HYPOGLYC 07/14/2016 ANNA OSBORN MDNT A Ot Z79.899 OTHER RESIDENTIAL (CURRENT) DRUG THERAPY 07/18/2016 LEIGHA OSBORN MD A Ot E11. 9 TYPE 2 DIABETES MELLITUS WITHOUT COMPLIC 07/18/2016 ANNA OSBORN MDNT A Ot I10 ESSENTIAL (PRIMARY) HYPERTENSION 07/18/2016 ANNA OSBORN MDNT A Ot J02. 0 STREPTOCOCCAL PHARYNGITIS 07/18/2016 ANNA OSBORN MDNT A Ot J02. 9 ACUTE PHARYNGITIS, UNSPECIFIED 07/18/2016 ANNA OSBORN MDNT A Ot Z79. 84 FORMULA BOTTLER (CURRENT) USE OF ORAL HYPOGLYC 07/18/2016 ANNA OSBORN MDNT A Ot Z79.899 OTHER FORMULA BOTTLER (CURRENT) DRUG THERAPY 12/04/2016 ALLEGRA VILLATORO APRN Ot E11 .9 TYPE 2 DIABETES MELLITUS WITHOUT COMPLIC 12/04/2016 ALLEGRA VILLATORO HORIZONTAL DRILL OPERATOR Ot I10 ESSENTIAL (PRIMARY) HYPERTENSION 12/04/2016 ALLEGRA VILLATORO APRN Ot S40.012A CONTUSION OF LEFT SHOULDER, INITIAL ENCO 12/04/2016 ALLEGRA VILLATORO APRN Ot S49.92XA UNSP INJURY OF LEFT SHOULDER AND UPPER A 12/04/2016 ALLEGRA VILLATORO APRN Ot W01.0XXA FALL SAME LEV FROM SLIP/TRIP W/O STRIKE 12/04/2016 ALLEGRA VILLATORO APRN Ot Y92.39 [facility] 12/04/2016 ALLEGRA VILLATORO APRN Ot Y99 .8 OTHER EXTERNAL CAUSE STATUS 12/04/2016 ALLEGRA VILLATORO APRN Ot Z79.84 RESIDENTIAL (CURRENT) USE OF ORAL HYPOGLYC 12/06/2016 ALLEGRA [...] STRIKE 12/06/2016 ALLEGRA VILLATORO APRN Ot Y92.39 [facility] 12/06/2016 ALLEGRA VILLATORO APRN Ot Y99 .8 OTHER EXTERNAL CAUSE STATUS 12/06/2016 ALLEGRA VILLATORO APRN Ot Z79.84 RESIDENTIAL (CURRENT) USE OF ORAL HYPOGLYC 02/07/2017 FELIX PICKETT ANDREEA K Ot E11.9 TYPE 2 DIABETES MELLITUS WITHOUT COMPLIC 02/07/2017 FELIX DO ANDREEA K Ot E78.00 PURE HYPERCHOLESTEROLEMIA, UNSPECIFIED 02/07/2017 FELIX PICKETT ANDREEA K Ot G43.909 MIGRAINE, UNSP, NOT INTRACTABLE, WITHOUT 02/07/2017 FELIX DO ANDREEA K Ot G47.30 SLEEP APNEA, UNSPECIFIED 02/07/2017 FELIX DO ANDREEA K Ot I10 ESSENTIAL (PRIMARY) HYPERTENSION 02/07/2017 FELIX PICKETT ANDREEA K Ot N39.0 URINARY TRACT INFECTION, SITE NOT SPECIF 02/07/2017 FELIX DO, ANDREEA K Ot R10.12 LEFT UPPER QUADRANT PAIN 02/07/2017 FELIX DO, ANDREEA K Ot Z79.84 FORMULA BOTTLER (CURRENT) USE OF ORAL HYPOGLYC 02/07/2017 FELIX [...] 02/08/2017 FELIX DO, ANDREEA K Ot Z79.84 FORMULA BOTTLER (CURRENT) USE OF ORAL HYPOGLYC 02/08/2017 FELIX DO, ANDREEA K Ot Z82.49 FAMILY HX OF ISCHEM HEART DIS AND OTH DI 02/08/2017 FELIX DO, ANDREEA K Ot Z87.59 PERSONAL HISTORY OF COMP OF PREG, CHLDBR 03/05/2017 SOLO ALFARO Ot E11.9 TYPE 2 DIABETES MELLITUS WITHOUT COMPLIC 03/05/2017 OSLO ALFARO Ot G43.909 MIGRAINE, UNSP, NOT INTRACTABLE, WITHOUT 03/05/2017 SOLO ALFARO Ot I 10 ESSENTIAL (PRIMARY) HYPERTENSION 03/05/2017 SOLO ALFARO Ot M25.571 PAIN IN RIGHT ANKLE AND JOINTS OF RIGHT 03/05/2017 SOLO ALFARO Ot S80.861A INSECT BITE (NONVENOMOUS), RIGHT LOWER L 03/05/2017 SOLO ALFARO Ot W57.XXXA BIT/STUNG BY NONVENOM INSECT OTH NONVE 03/05/2017 SOLO ALFARO Ot Z79.84 FORMULA BOTTLER (CURRENT) USE OF ORAL HYPOGLYC 03/05/2017 SOLO [...] OTH NONVE 03/08/2017 SOLO ALFARO Ot Z79.84 RESIDENTIAL (CURRENT) USE OF ORAL HYPOGLYC 03/08/2017 SOLO ALFARO Ot Z82.49 FAMILY HX OF ISCHEM HEART DIS AND OTH DI 03/08/2017 SOLO ALFARO Ot Z87.59 PERSONAL HISTORY OF COMP OF PREG, CHLDBR 09/04/2017 FAITH, JIGAR THIRD STEEL POURER Ot E11.9 TYPE 2 DIABETES MELLITUS WITHOUT COMPLIC 09/04/2017 FAITH, JIGAR TH[employer] STEEL POURER Ot G44.201 TENSION-TYPE HEADACHE, UNSPECIFIED, INTR 09/04/2017 FAITH, JIGAR TH[employer] STEEL POURER Ot I10 ESSENTIAL (PRIMARY) HYPERTENSION 09/04/2017 FAITH, JIGAR THIRD STEEL POURER Ot R51 HEADACHE 09/04/2017 FAITH, JIGAR TH[employer] STE[employer] POURER Ot Z79.84 RESIDENTIAL (CURRENT) USE OF ORAL HYPOGLYC 09/04/2017 FAITH, JIGAR TH[employer] STE[employer] POURER Ot Z82.49 FAMILY HX OF ISCHEM HEART DIS AND OTH DI 09/04/2017 FAITH, JIGAR TH[employer] STEEL POURER Ot Z87.01 PERSONAL HISTORY OF PNEUMONIA (RECURRENT 09/04/2017 FAITH, JIGAR THIRD STEEL POURER Ot Z87.59 PERSONAL HISTORY OF COMP OF PREG, CHLDBR 09/04/2017 FAITH, JIGAR TH[employer] STEEL POURER Ot Z88.5 ALLERGY STATUS TO NARCOTIC AGENT STATUS 09/04/2017 FAITH, JIGAR THIRD STEEL POURER Ot Z88.8 ALLERGY STATUS TO OTH DRUG/MEDS/BIOL SUB 09/06/2017 FAITH JIGAR THIRD STEEL POURER Ot E11.9 TYPE 2 DIABETES MELLITUS WITHOUT COMPLIC 09/06/2017 FAITH JIGAR THIRD STEEL POURER Ot G44.201 TENSION-TYPE HEADACHE, UNSPECIFIED, INTR 09/06/2017 FAITH JIGAR THIRD STEEL POURER Ot I10 ESSENTIAL (PRIMARY) HYPERTENSION 09/06/2017 FAITH JIGAR THIRD STEEL POURER Ot R51 HEADACHE 09/06/2017 FAITH JIGAR THIRD STEEL POURER Ot Z79.84 FORMULA BOTTLER (CURRENT) USE OF ORAL HYPOGLYC 09/06/2017 JIGAR CUEVAS THIRD STEEL POURER Ot Z82.49 FAMILY HX OF ISCHEM HEART DIS AND OTH DI 09/06/2017 FAITH JIGAR THIRD STEEL POURER Ot Z87.01 PERSONAL HISTORY OF PNEUMONIA (RECURRENT 09/06/2017 JIGAR CUEVASP Ot Z87.59 PERSONAL HISTORY OF COMP OF PREG, CHLDBR 09/06/2017 FAITH JIGAR THIRD STEEL POURER Ot Z88.5 ALLERGY STATUS TO NARCOTIC AGENT STATUS 09/06/2017 FAITH JIGAR THIRD STEEL POURER Ot Z88.8 ALLERGY STATUS TO OTH DRUG/MEDS/BIOL SUB 09/08/2017 ALLEGRA VILLATORO APRN Ot B34 .9 VIRAL INFECTION, UNSPECIFIED 09/08/2017 ALLEGRA VILLATORO APRN Ot E11 .9 TYPE 2 DIABETES MELLITUS WITHOUT COMPLIC 09/08/2017 ALLEGRA VILLATORO APRN Ot I10 ESSENTIAL (PRIMARY) HYPERTENSION 09/08/2017 ALLEGRA VILLATORO APRN Ot R51 HEADACHE 09/08/2017 ALLEGRA VILLATORO APRN Ot Z79.84 FORMULA BOTTLER (CURRENT) USE OF ORAL HYPOGLYC 09/08/2017 ALLEGRA VILLATORO APRN Ot Z82.49 FAMILY HX OF ISCHEM HEART DIS AND OTH DI 09/08/2017 ALLEGRA VILLATORO APRN Ot Z87.01 PERSONAL HISTORY OF PNEUMONIA (RECURRENT 09/08/2017 ALLEGRA VILLATORO APRN Ot Z87.59 PERSONAL HISTORY OF COMP OF PREG, CHLDBR 09/08/2017 ALLEGRA VILLATORO APRN Ot Z88 .5 ALLERGY STATUS TO NARCOTIC AGENT STATUS 09/08/2017 ALLEGRA VILLATORO HORIZONTAL DRILL OPERATOR Ot Z88 .8 ALLERGY STATUS TO OTH DRUG/MEDS/BIOL SUB 09/12/2017 ALLEGRA VILLATORO HORIZONTAL DRILL OPERATOR Ot B34 .9 VIRAL INFECTION, UNSPECIFIED 09/12/2017 ALLEGRA VILLATORO APRN Ot E11 .9 TYPE 2 DIABETES MELLITUS WITHOUT COMPLIC 09/12/2017 ALLEGRA VILLATORO APRN Ot I10 ESSENTIAL (PRIMARY) HYPERTENSION 09/12/2017 ALLEGRA VILLATORO APRN Ot R51 HEADACHE 09/12/2017 ALLEGRA VILLATORO APRN Ot Z79.84 FORMULA BOTTLER (CURRENT) USE OF ORAL HYPOGLYC 09/12/2017 ALLEGRA [...] N85.2 HYPERTROPHY OF UTERUS 10/18/2017 CARISA KHAN THIRD STEEL POURER Ot N85.2 HYPERTROPHY OF UTERUS 11/03/2017 CAYR ANGLIN HORIZONTAL DRILL OPERATOR Ot M79.605 PAIN IN LEFT LEG 11/03/2017 CARY ANGLIN HORIZONTAL DRILL OPERATOR Ot M79.605 PAIN IN LEFT LEG 11/03/2017 CARY ANGLIN HORIZONTAL DRILL OPERATOR Ot M79.605 PAIN IN LEFT LEG 11/15/2017 CARY ANGLIN HORIZONTAL DRILL OPERATOR Ot M79.605 PAIN IN LEFT LEG 12/05/2017 FELIX DO ANDREEA K Ot E11.9 TYPE 2 DIABETES MELLITUS WITHOUT COMPLIC 12/05/2017 FELIX PICKETT ANDREEA K Ot E66.01 MORBID (SEVERE) OBESITY DUE TO EXCESS CA 12/05/2017 FELIX DO ANDREEA K Ot G43.909 MIGRAINE, UNSP, NOT INTRACTABLE, WITHOUT 12/05/2017 FELIX DO ANDREEA K Ot I10 ESSENTIAL (PRIMARY) HYPERTENSION 12/05/2017 FELIXTere PICKETT ANDREEA K Ot R10.32 LEFT LOWER QUADRANT PAIN 12/05/2017 FELIX DO ANDREEA K Ot R11.2 NAUSEA WITH VOMITING, UNSPECIFIED 12/05/2017 FELIX DO ANDREEA K Ot R19.7 DIARRHEA, UNSPECIFIED 12/05/2017 FELIX DO ANDREEA K Ot Z68.43 BODY MASS INDEX (BMI) 50-59.9 , ADULT 12/05/2017 FELIXTere PICKETT ANDREEA K Ot Z82.49 FAMILY HX OF ISCHEM HEART DIS AND OTH DI 12/05/2017 FELIX PICKETT ANDREEA K Ot Z87.01 PERSONAL HISTORY OF PNEUMONIA (RECURRENT 12/05/2017 FELIX PICKETT ANDREEA Swetha Ot Z87.59 PERSONAL HISTORY OF COMP OF PREG, CHLDBR 12/05/2017 FELIX PICKETT ANDREEA Swetha Ot Z88.5 ALLERGY STATUS TO NARCOTIC AGENT STATUS 12/05/2017 FELIX PICKETT ANDREEA K Ot Z88.8 ALLERGY STATUS TO OTH DRUG/MEDS/BIOL SUB 12/06/2017 FELIX PICKETT ANDREEA Swetha Ot E11.9 TYPE 2 DIABETES MELLITUS WITHOUT COMPLIC 12/06/2017 ANDREEA WASHINGTON DO Ot E66.01 MORBID (SEVERE) OBESITY DUE TO EXCESS CA 12/06/2017 ANDREEA WASHINGTON DO Ot G43.909 MIGRAINE, UNSP, NOT INTRACTABLE, WITHOUT 12/06/2017 FELIX PICKETT ANDREEA Swetha Ot I10 ESSENTIAL (PRIMARY) HYPERTENSION 12/06/2017 FELIX DO ANDREEA K Ot R10.32 LEFT LOWER QUADRANT PAIN 12/06/2017 FELIX DO ANDREEA K Ot R11.2 NAUSEA WITH VOMITING, UNSPECIFIED 12/06/2017 ANDREEA WASHINGTON DO Ot R19.7 DIARRHEA, UNSPECIFIED 12/06/2017 FELIX DO ANDREEA Swetha Ot Z68.43 BODY MASS INDEX (BMI) 50-59.9 , ADULT 12/06/2017 FELIX PICKETT ANDREEA Swetha Ot Z82.49 FAMILY HX OF ISCHEM HEART DIS AND OTH DI 12/06/2017 FELIX PICKETT ANDREEA K Ot Z87.01 PERSONAL HISTORY OF PNEUMONIA (RECURRENT 12/06/2017 FELIX PICKETT ANDREEA K Ot Z87.59 PERSONAL HISTORY OF COMP OF PREG, CHLDBR 12/06/2017 ANDREEA WASHINGTON DO Ot Z88.5 ALLERGY STATUS TO NARCOTIC AGENT STATUS 12/06/2017 FELIX ANDREEA PICKETT Ot Z88.8 ALLERGY STATUS TO OTH DRUG/MEDS/BIOL SUB 01/02/2018 LAN ERICKSON, EDUARDO Andrea Ot Z01.818 ENCOUNTER FOR OTHER PREPROCEDURAL EXAMIN 01/03/2018 LAN ERICKSON, EDUARDO Andrea Ot Z01.818 ENCOUNTER FOR OTHER PREPROCEDURAL EXAMIN 01/31/2018 EVELINA MEYERS DO Ot K62.5 HEMORRHAGE OF ANUS AND RECTUM 01/31/2018 EVELINA MEYERS DO Ot R19.7 DIARRHEA, UNSPECIFIED 01/31/2018 DELMAN DO, EVELINA B Ot Z01.8 18 [...] 18 ENCOUNTER FOR OTHER PREPROCEDURAL EXAMIN 02/02/2018 DELMAN DO, EVELINA B Ot K62.5 HEMORRHAGE OF ANUS AND RECTUM 02/02/2018 DELMAN DO, EVELINA B Ot R19.7 DIARRHEA, UNSPECIFIED 02/02/2018 DELMAN DO, EVELINA B Ot Z01.8 18 ENCOUNTER FOR OTHER PREPROCEDURAL EXAMIN 02/07/2018 DELMAN DO, EVELINA B Ot K62.5 HEMORRHAGE OF ANUS AND RECTUM 02/07/2018 DELMAN DO, EVELINA B Ot R19.7 DIARRHEA, UNSPECIFIED 02/07/2018 DELMAN DO, EVELINA B Ot Z01.8 18 ENCOUNTER FOR OTHER PREPROCEDURAL EXAMIN 02/08/2018 DELMAN DO, EVELINA B Ot E66.0 1 MORBID (SEVERE) OBESITY DUE TO EXCESS CA 02/08/2018 DELMAN DO, EVELINA B Ot G47.3 3 OBSTRUCTIVE SLEEP APNEA (ADULT) (PEDIATR 02/08/2018 DELMAN DO, EVELINA B Ot I10 ESSENTIAL (PRIMARY) HYPERTENSION 02/08/2018 DELMAN DO, EVELINA B Ot K29.7 0 GASTRITIS, UNSPECIFIED, WITHOUT BLEEDING 02/08/2018 DELMAN DO, EVELINA B Ot K29.8 0 DUODENITIS WITHOUT BLEEDING 02/08/2018 DELMAN DO, EVELINA B Ot K44.9 DIAPHRAGMATIC HERNIA WITHOUT OBSTRUCTION 02/08/2018 DELMAN DO, EVELINA B Ot K57.3 0 DVRTCLOS OF LG INT W/O PERFORATION OR AB 02/08/2018 DELMAN DO, EVELINA B Ot K63.5 POLYP OF COLON 02/08/2018 DELMAN DO, EVELINA B Ot K64.8 OTHER HEMORRHOIDS 02/08/2018 HERNANDOMAN DO, EVELINA B Ot Z68.4 3 BODY MASS INDEX (BMI) 50-59.9 , ADULT 02/13/2018 LUIGI DO, EVELINA B Ot E66.0 1 MORBID (SEVERE) OBESITY DUE TO EXCESS CA 02/13/2018 HERNANDOMAN DO, EVELINA B Ot G47.3 3 OBSTRUCTIVE SLEEP APNEA (ADULT) (PEDIATR 02/13/2018 DELMAN DO, EVELINA B Ot I10 ESSENTIAL (PRIMARY) HYPERTENSION 02/13/2018 DELMAN DO, EVELINA B Ot K29.7 0 GASTRITIS, UNSPECIFIED, WITHOUT BLEEDING 02/13/2018 DELMAN DO, EVELINA B Ot K29.8 0 DUODENITIS WITHOUT BLEEDING 02/13/2018 HERNANDOMAN DO, EVELINA B Ot K44.9 DIAPHRAGMATIC HERNIA WITHOUT OBSTRUCTION 02/13/2018 HERNANDOMAN DO, EVELINA B Ot K57.3 0 DVRTCLOS OF LG INT W/O PERFORATION OR AB 02/13/2018 LUIGI DO, EVELINA B Ot K63.5 POLYP OF COLON 02/13/2018 HERNANDOMAN DO, EVELINA B Ot K64.8 OTHER HEMORRHOIDS 02/13/2018 [...] KHAN Ot N85.2 HYPERTROPHY OF UTERUS 11/12/2018 DERREK CARY Billingsley NATALIA Ot M79.605 PAIN IN LEFT LEG 11/12/2018 TRELL BEAULIEU MD Ot M17.12 UNILATERAL PRIMARY OSTEOARTHRITIS, LEFT 11/12/2018 TRELL BEAULIEU MD Ot M47.816 SPONDYLOSIS W/O MYELOPATHY OR RADICULOPA 11/14/2018 ANDREEA WASHINGTON DO Ot E11.9 TYPE 2 DIABETES MELLITUS WITHOUT COMPLIC 11/14/2018 ANDREEA WASHINGTON DO Ot E66.01 MORBID (SEVERE) OBESITY DUE TO EXCESS CA 11/14/2018 ANDREEA WASHINGTON DO Ot I10 ESSENTIAL (PRIMARY) HYPERTENSION 11/14/2018 ANDREEA WASHINGTON DO, Ot K21.9 GASTRO-ESOPHAGEAL REFLUX DISEASE WITHOUT 11/14/2018 ANDREEA WASHINGTON DO Ot M79.605 PAIN IN LEFT LEG 11/14/2018 ANDREEA WASHINGTON DO Ot M79.662 PAIN IN LEFT LOWER LEG 11/14/2018 ANDREEA WASHINGTON DO Ot Z68.44 BODY MASS INDEX (BMI) 60.0-69.9, ADULT 11/14/2018 ANDREEA WASHINGTON DO Ot Z79.51 RESIDENTIAL (CURRENT) USE OF INHALED STERO 11/14/2018 ANDREEA WASHINGTON DO Ot Z79.84 RESIDENTIAL (CURRENT) USE OF ORAL HYPOGLYC 11/14/2018 ANDREEA WASHINGTON DO Ot Z82.49 FAMILY HX OF ISCHEM HEART DIS AND OTH DI 11/14/2018 ANDREEA WASHINGTON DO, Ot Z87.01 PERSONAL HISTORY OF PNEUMONIA (RECURRENT 11/14/2018 ANDREEA WASHINGTON DO, Ot Z87.19 PERSONAL HISTORY OF OTHER DISEASES OF TH 11/14/2018 ANDREEA WASHINGTON DO Ot Z88.5 ALLERGY STATUS TO NARCOTIC AGENT STATUS 11/14/2018 ANDREEA WASHINGTON DO Ot Z88.8 ALLERGY STATUS TO OTH DRUG/MEDS/BIOL SUB 11/14/2018 ANDREEA WASHINGTON DO Ot Z98.890 OTHER SPECIFIED POSTPROCEDURAL STATES 11/18/2018 FELIX ANDREEA PICKETT Ot E11.9 TYPE 2 DIABETES MELLITUS WITHOUT COMPLIC 11/18/2018 FELIX ANDREEA PICKETT Ot E66.01 MORBID (SEVERE) OBESITY DUE TO EXCESS CA 11/18/2018 FELIX ANDREEA PICKETT Ot I10 ESSENTIAL (PRIMARY) HYPERTENSION 11/18/2018 [place] ANDREEA Posada Ot K21.9 GASTRO-ESOPHAGEAL REFLUX DISEASE WITHOUT 11/18/2018 [place] ANDREEA Posada Ot M79.605 PAIN IN LEFT LEG 11/18/2018 [place] ANDREEA PICKETT Ot M79.662 PAIN IN LEFT LOWER LEG 11/18/2018 FELIX ANDREEA Posada Ot Z68.44 BODY MASS INDEX (BMI) 60.0-69.9, ADULT 11/18/2018 FELIX ANDREEA Posada Ot Z79.51 RESIDENTIAL (CURRENT) USE OF INHALED STERO 11/18/2018 [place] ANDREEA Posada Ot Z79.84 FORMULA BOTTLER (CURRENT) USE OF ORAL HYPOGLYC 11/18/2018 [place] ANDREEA Posada Ot Z82.49 FAMILY HX OF ISCHEM HEART DIS AND OTH DI 11/18/2018 FELIX ANDREEA Posada Ot Z87.01 PERSONAL HISTORY OF PNEUMONIA (RECURRENT 11/18/2018 FELIX ANDREEA Posada Ot Z87.19 PERSONAL HISTORY OF OTHER DISEASES OF TH 11/18/2018 FELIX ANDREEA Posada Ot Z88.5 ALLERGY STATUS TO NARCOTIC AGENT STATUS 11/18/2018 [place] ANDREEA Posada Ot Z88.8 ALLERGY STATUS TO OTH DRUG/MEDS/BIOL SUB 11/18/2018 FELIX ANDREEA Posada Ot Z98.890 OTHER SPECIFIED POSTPROCEDURAL STATES 12/07/2018 CARISA KHAN Ot M51.37 OTHER INTERVERTEBRAL DISC DEGENERATION, 12/08/2018 ALINE DECKER MD Ot D64.9 ANEMIA, UNSPECIFIED 12/08/2018 ALINE DECKER MD Ot E11.9 TYPE 2 DIABETES MELLITUS WITHOUT COMPLIC 12/08/2018 ALINE DECKER MD Ot E66.01 MORBID (SEVERE) OBESITY DUE TO EXCESS CA 12/08/2018 ALINE DECKER MD, Ot I10 ESSENTIAL (PRIMARY) HYPERTENSION 12/08/2018 ALINE DECKER MD, Ot K21.9 GASTRO-ESOPHAGEAL REFLUX DISEASE WITHOUT 12/08/2018 ALINE DECKER MD, Ot M48.061 SPINAL STENOSIS, LUMBAR REGION WITHOUT N 12/08/2018 ALINE DECKER MD, Ot M51.26 OTHER INTERVERTEBRAL DISC DISPLACEMENT, 12/08/2018 ALINE DECKER MD, Ot M54.5 LOW BACK PAIN 12/08/2018 ALINE DECKER MD, Ot N83.202 UNSPECIFIED OVARIAN CYST, LEFT SIDE 12/08/2018 ALINE DECKER MD, Ot Z79.51 FORMULA BOTTLER (CURRENT) USE OF INHALED STERO 12/08/2018 ALINE DECKER MD, Ot Z79.52 FORMULA BOTTLER (CURRENT) USE OF SYSTEMIC STER 12/08/2018 ALINE DECKER MD, Ot Z79.84 FORMULA BOTTLER (CURRENT) USE OF ORAL HYPOGLYC 12/08/2018 ALINE [...] ADULT 12/13/2018 ALLEGRA VILLATORO APRN Ot Z79.51 FORMULA BOTTLER (CURRENT) USE OF INHALED STERO 12/13/2018 ALLEGRA VILLATORO APRN Ot Z79.52 FORMULA BOTTLER (CURRENT) USE OF SYSTEMIC STER 12/13/2018 ALLEGRA [...] APRN Ot I10 ESSENTIAL (PRIMARY) HYPERTENSION 04/06/2019 VILLATORO, PETER J HORIZONTAL DRILL OPERATOR Ot K21 .9 GASTRO-ESOPHAGEAL REFLUX DISEASE WITHOUT 04/06/2019 ALLEGRA VILLATORO APRN Ot R10.31 RIGHT LOWER QUADRANT PAIN 04/06/2019 ALLEGRA VILLATORO APRN Ot R10 .9 UNSPECIFIED ABDOMINAL PAIN 04/06/2019 ALLEGRA VILLATORO APRN Ot Z79.51 RESIDENTIAL (CURRENT) USE OF INHALED STERO 04/06/2019 ALLEGRA VILLATORO APRN Ot Z79.52 FORMULA BOTTLER (CURRENT) USE OF SYSTEMIC STER 04/06/2019 ALLEGRA VILLATORO APRN Ot Z79.84 RESIDENTIAL (CURRENT) USE OF ORAL HYPOGLYC 04/06/2019 ALLEGRA VILLATORO APRN Ot Z82.49 FAMILY HX OF ISCHEM HEART DIS AND OTH DI 04/06/2019 ALLEGRA VILLATORO APRN Ot Z87.440 PERSONAL HISTORY OF URINARY (TRACT) INFE 04/06/2019 ALLEGRA VILLATORO APRN Ot Z88 .5 ALLERGY STATUS TO NARCOTIC AGENT STATUS 04/06/2019 ALLEGRA VILLATORO APRN Ot Z88 .8 ALLERGY STATUS TO [facility] DRUG/MEDS/BIOL SUB 04/07/2019 ALLEGRA VILLATORO APRN Ot [...] PAIN 04/07/2019 ALLEGRA VILLATORO APRN Ot Z79.51 RESIDENTIAL (CURRENT) USE OF INHALED STERO 04/07/2019 ALLEGRA VILLATORO APRN Ot Z79.52 RESIDENTIAL (CURRENT) USE OF SYSTEMIC STER 04/07/2019 ALLEGRA VILLATORO APRN Ot Z79.84 FORMULA BOTTLER (CURRENT) USE OF ORAL HYPOGLYC 04/07/2019 ALLEGRA [...] I10 ESSENTIAL (PRIMARY) HYPERTENSION 09/26/2019 ALLEGRA VILLATORO APRN Ot K21 .9 GASTRO-ESOPHAGEAL REFLUX DISEASE WITHOUT 09/26/2019 ALLEGRA VILLATORO APRN Ot S00.83XA CONTUSION OF OTHER PART OF HEAD, INITIAL 09/26/2019 ALLEGRA VILLATORO APRN Ot W01.198A FALL SAME LEV FROM SLIP/TRIP W STRIKE AG 09/26/2019 ALLEGRA VILLATORO APRN Ot Z68.43 BODY MASS INDEX (BMI) 50.0-59.9, ADULT 09/26/2019 ALLEGRA VILLATORO APRN Ot Z79.51 FORMULA BOTTLER (CURRENT) USE OF INHALED STERO 09/26/2019 ALLEGRA VILLATORO APRN Ot Z79.84 RESIDENTIAL (CURRENT) USE OF ORAL HYPOGLYC 09/26/2019 ALLEGRA VILLATORO APRN Ot Z82.49 FAMILY HX OF ISCHEM HEART DIS AND OTH DI 09/26/2019 ALLEGRA VILLATORO APRN Ot Z88 .5 ALLERGY STATUS TO NARCOTIC AGENT STATUS 09/26/2019 ALLEGRA VILLATORO APRN Ot Z88 .8 ALLERGY STATUS TO OTH DRUG/MEDS/BIOL SUB 12/24/2019 FEDERICA ERICKSON, BAUDILIO Parks Ot D64.9 ANEMIA, UNSPECIFIED 12/24/2019 FEDERICA ERICKSON, BAUDILIO Parks Ot E11.9 TYPE 2 DIABETES MELLITUS WITHOUT COMPLIC 12/24/2019 BAUDILIO STALLWORTH MD Ot E66.01 MORBID (SEVERE) OBESITY DUE TO EXCESS CA 12/24/2019 BAUDILIO STALLWORTH MD, Ot G43.909 MIGRAINE, UNSP, NOT INTRACTABLE, WITHOUT 12/24/2019 BAUDILIO STALLWORTH MD, Ot G47.33 OBSTRUCTIVE SLEEP APNEA (ADULT) (PEDIATR 12/24/2019 BAUDILIO STALLWORTH MD, Ot I1 0 ESSENTIAL (PRIMARY) HYPERTENSION 12/24/2019 BAUDILIO STALLWORTH MD, Ot J45.909 UNSPECIFIED ASTHMA, UNCOMPLICATED 12/24/2019 BAUDILIO STALLWORTH MD, Ot K21.9 GASTRO-ESOPHAGEAL REFLUX DISEASE WITHOUT 12/24/2019 BAUDILIO STALLWORTH MD, Ot K58.9 IRRITABLE BOWEL SYNDROME WITHOUT DIARRHE 12/24/2019 BAUDILIO STALLWORTH MD, Ot M19.90 UNSPECIFIED OSTEOARTHRITIS, UNSPECIFIED 12/24/2019 BAUDILIO STALLWORTH MD, Ot 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, LEFT KNEE 12/24/2019 BAUDILIO STALLWORTH MD, Ot S83.242A OTH TEAR OF MEDIAL MENISCUS, CURRENT INJ 12/24/2019 BAUDILIO STALLWORTH MD, Ot S83.282A OTH TEAR OF LAT MENSC, CURRENT INJURY, L 12/24/2019 BAUDILIO STALLWORTH MD, Ot Z68.43 BODY MASS INDEX (BMI) 50.0-59.9, ADULT 12/24/2019 BAUDILIO STALLWORTH MD, Ot Z79.84 FORMULA BOTTLER (CURRENT) USE OF ORAL HYPOGLYC 12/24/2019 BAUDILIO STALLWORTH MD, Ot Z79.899 OTHER RESIDENTIAL (CURRENT) DRUG THERAPY 12/24/2019 BAUDILIO STALLWORTH MD, Ot Z88.5 ALLERGY STATUS TO NARCOTIC AGENT STATUS 12/24/2019 BAUDILIO STALLWORTH MD, Ot Z88.8 ALLERGY STATUS TO OTH DRUG/MEDS/BIOL SUB Procedures Code [place] [address] PAP SMEAR 09/04/2012 Q0091 PAP SMEAR OBTAIN SMEAR 09/04/2012 02405 ROUT INE VENIPUNCTURE 11/22/2012 94716 A1C (IN-HOUSE) 11/22/2012 78900 CMP 11/22/2012 8445585 GF R CALC (RESULT ONLY) 11/22/2012 50225 TSH 11/22/2012 27511 EKG, TRACING (IN-HOUSE) 11/23/2012 85476 INSU RUFINO LEVEL 11/23/[address] A BDOMEN W/ CONTRAST 05/16/2013 79427 US A BDOMEN ULTRASOUND, LIMITED (SPECIFY ORGAN) 06/20/2013 49501 ROUT INE VENIPUNCTURE 10/10/2013 48031 CBC 10/10/2013 6576020 GF R CALC (RESULT ONLY) 10/10/2013 75539 CMP 10/10/2013 77641 TSH 10/10/2013 29281 INSU RUFINO LEVEL 10/10/2013 03627 STRE P A (IN-HOUSE) 12/27/2013 64475 UA W / CULTURE IF INDICATED 01/03/2014 26992 CULT URE URINE 01/05/2014 J1885 YANA DOL INJ 03/08/2014 77860 THER APUTIC INJ SQ/IM 03/08/2014 36616 ROUT INE VENIPUNCTURE 10/14/2014 47363 A1C (IN-HOUSE) 10/14/2014 11751 CMP 10/14/2014 4995244 GF R CALC (RESULT ONLY) 10/14/2014 61588 INSU RUFINO LEVEL 10/14/2014 Results Test Result [...] culture - 06/12/16 17:00 Bacterial urine culture [id number] NRG COLONY COUNT 10,000/ML - 100,000/ML NRG [...] culture - 02/06/17 23:41 Bacterial urine culture [id number] NRG COLONY COUNT >100,000/ML NRG FTX;REPORTABLE PLUS, NRG FREE TEXT ENTRY 2 MIXED DENISSE <10,000/ML NRG CULTURE, URINE - 05/15/17 15:02 Urine Culture, Routine Final report NRG Result 1 NRG Urine Culture, Routine - 05/15/17 15:02 Urine Culture, Routine Note CMP - 07/07/17 13:21 GLUCOSE 82 mg/dL 65-99 UREA NITROGEN (BUN) 12 mg/dL 7-25 CREATININE 0.70 mg/dL 0.50-1.10 eGFR NON-AFR. ICELANDIC 108 mL/min/1.73m2 > OR = 60 eGFR [...] s 24-35 Serum or plasma choriogonadotropin (preg bsii test) detection - 11/12/18 21:50 Serum or [...] Coronavirus Ab [Units/volume] in Serum Negative Negative Methicillin resistant Staphylococcus aur eus (MRSA) screening culture - 12/19/19 08:00 Methicillin resistant Staphylococcus aureus (MRSA) scr eening culture NEG NRG Encounters ACCT No. Visit Date/Time Discharge Status Pt. Type Provider Facility Loc./Unit Complaint [id number] 12/18/2016 20:06:00 Document Registration [id number] 09/27/2019 13:45:00 09/27/2019 23:59: 59 CLS Outpatient CARISA KHAN APRN [facility] [id number] 06/08/2019 10:40:00 Document Registration [id number] 05/08/2018 17:45:00 Document Registration [id number] 11/30/2017 15:40:00 Document Registration [id number] 09/12/2017 09:40:00 Document Registration [id number] 07/07/2017 13:20:00 Document Registration [id number] 05/15/2017 13:10:00 Document Registration [id number] 12/19/2019 07:16:00 17:49:00 DIS Outpatient BAUDILIO STALLWORTH MD [facility] SDC LEFT KNEE MEDIAL MENIS CUS TEAR [id number] 12/14/2019 07:56:00 14:31:00 DIS Outpatient BAUDILIO STALLWORTH MD [facility] PREOP LEFT KNEE MEDIAL MENIS CUS [id number] 09/21/2019 08:58:00 11:38:00 DIS Outpatient ALLEGRA VILLATORO APRN [facility] ER FALL;NOSE INJ [id number] 04/04/2019 15:13:00 17:13:00 DIS Outpatient ALLEGRA VILLATORO APRN [facility] ER RT ABDOMEN PAIN [id number] 12/07/2018 15:54:00 17:07:00 DIS Outpatient ALLEGRA VILLATORO APRN [facility] ER HEADACHE [id number] 12/06/2018 15:37:00 05/22/2 019 23:59:59 CLS Outpatient BILLCARISAP [facility] RAD PAIN OF LEFT LOWER LEG [id number] 12/04/2018 02:27:00 019 05:43:00 DIS Outpatient BRIANNE ERICKSON, ALINE Burris [facility] ER LOWER BACK PAIN AND STOMACH [id number] 11/16/2018 12:00:00 019 23:59:59 CLS Preadmit ANDREEA WASHINGTON DO [facility] RAD L CALF PAIN [id number] 11/12/2018 21:22:00 23:00:00 DIS Outpatient ANDREEA WASHINGTON DO, V [facility] ER PAIN IN LEFT LEG [id number] 04/13/2018 16:47:00 018 23:59:59 CLS Outpatient CHRISTOFER ERICKSON, TRELL Ruiz [facility] RAD M54.5,M25.562 [id number] 02/08/2018 12:38:00 018 15:40:00 DIS Outpatient EVELINA MEYERS DO [facility] ENDO BLOOD IN STOOL/REFLUX [id number] 02/01/2018 05:41:00 018 14:57:00 DIS Outpatient EVELINA MEYERS DO [facility] PREOP COLONOSCOPY [id number] 01/12/2018 07:30:00 018 23:59:59 CLS Preadmit BAUDILIO NAGY DO [facility] SDC ABNORMAL UTERINE BLEEDI NG [id number] 01/02/2018 06:40:00 018 13:16:00 DIS Outpatient LAN ERICKSON, EDUARDO Andrea [facility] PREOP COLONOSCOPY [id number] 12/04/2017 23:23:00 018 03:02:00 DIS Emergency ANDREEA WASHINGTON DO [facility] ER L SIDE PAIN/VOMITING/DI ARRHEA [id number] 11/02/2017 19:11:00 018 23:59:59 CLS Outpatient CARY ANGLIN HORIZONTAL DRILL OPERATOR [facility] RAD LEFT LEG PAIN [id number] 10/04/2017 09:43:00 018 23:59:59 CLS Outpatient CARISA KHAN [facility] RAD MENORRHAGIA W/ IRREGUL AR CYCLE [id number] 09/23/2017 14:00:00 018 23:59:59 CLS Preadmit CARISA KHAN [facility] RAD N92.1 MENORRHAGIA W/IRR EGULAR CYCLE [id number] 09/13/2017 17:01:00 018 20:21:00 DIS Emergency SOLO ALFARO [facility] ER SEVERE ABD PAIN [id number] 09/08/2017 17:05:00 018 19:50:00 DIS Emergency ALLEGRA VILLATORO APRN [facility] ER HEADACHE/NEW RX/WEAKNES S [id number] 09/04/2017 10:35:00 018 13:05:00 DIS Emergency JIGAR CUEVAS [facility] ER HEADACHE [id number] 03/05/2017 13:40:00 017 15:53:00 DIS Emergency SOLO ALFARO [facility] ER POSS SPIDER BITE ON RT ANKLE [id number] 02/06/2017 22:43:00 017 00:34:00 DIS Emergency ANDREEA WASHINGTON DO [facility] ER L SIDE PAIN [id number] 02/05/2017 10:06:00 017 12:50:00 DIS Emergency ALLEGRA VILLATORO APRN [facility] ER L SIDE BACK PAIN [id number] 12/04/2016 14:45:00 017 15:53:00 DIS Emergency ALLEGRA VILLATORO APRN [facility] ER FALL, L ARM/ELBOW INJ [id number] 07/13/2016 13:25:00 016 16:49:00 DIS Emergency ANURAG ERICKSON, LEIGHA Helms [facility] ER HEADACHE/FLU SYMPTOMS [id number] 06/12/2016 17:38:00 18:30:00 DIS Inpatient JOCELYN ERICKSON, TORRES Correa [facility] ICU ACS ROLE OUT, 2ND PREFE RENCE CHEST PAIN [id number] 10/28/2014 23:14:00 015 00:56:00 DIS Emergency FELIX PICKETT, ANDREEA Swetha Vi [facility] ER ALLERGIC RXN TO ONIONS [id number] 02/10/2014 20:42:00 23:10:00 DIS Emergency RADHA ERICKSON, ENMA Posada [facility] ER HEADACHE [id number] 09/19/2013 08:17:00 23:59:59 CLS Outpatient CARISA KHAN [facility] RAD HEPATIC CYST [id number] 08/01/2013 08:54:00 Document Registration [id number] 05/21/2013 08:56:00 Document Registration [id number] 05/16/2013 15:57:00 Document Registration [id number] 01/22/2013 22:21:00 Document Registration [id number] 11/27/2012 16:36:00 Document Registration [id number] 11/22/2012 19:33:00 Document Registration [id number] 11/22/2012 11:17:00 Document Registration [id number] 11/16/2012 21:28:00 Document Registration [id number] 05/12/2012 17:46:00 Document Registration [id number] 04/06/2012 21:45:00 Document Registration [id number] 07/01/2011 11:18:00 Document Registration [id number] 08/01/2013 08:54:00 10:10:00 DIS Emergency [id number] 05/21/2013 08:56:00 23:59:59 CLS Outpatient [id number] 05/16/2013 15:57:00 23:59:59 CLS Outpatient [id number] 01/22/2013 22:21:00 01:19:00 DIS Emergency [id number] 11/27/2012 16:36:00 20:10:00 DIS Emergency [id number] 11/22/2012 19:33:00 23:33:00 DIS Emergency [id number] 11/22/2012 11:17:00 12:50:00 DIS Emergency [id number] 11/16/2012 21:28:00 23:27:00 DIS Emergency [id number] 06/22/2016 08:39:00 Document Registration [id number] 05/18/2017 03:08:00 Document Registration [id number] 10/30/2014 14:05:00 10/30/2014 23:59: 59 CLS Outpatient CARISA KHAN APRN S [id number] 10/14/2014 08:34:00 10/14/2014 23:59: 59 CLS Outpatient CARISA KHAN APRN S [id number] 09/25/2014 13:52:00 09/25/2014 23:59: 59 CLS Outpatient CARISA KHAN APRN [id number] 03/08/2014 13:20:00 03/08/2014 23:59: 59 CLS Outpatient BALBIR MORRISSEY APRN [id number] 02/18/2014 11:27:00 02/18/2014 23:59: 59 CLS Outpatient CARISA KHAN APRN S [id number] 01/03/2014 08:43:00 01/03/2014 23:59: 59 CLS Outpatient RUTH DOVER APRN A [id number] 12/27/2013 12:02:00 12/27/2013 23:59: 59 CLS Outpatient BALBIR MORRISSEY APRN [id number] 10/10/2013 08:08:00 10/10/2013 23:59: 59 CLS Outpatient CARISA KHAN APRN S [id number] 06/18/2013 14:53:00 06/18/2013 23:59: 59 CLS Outpatient CARISA KHAN APRN S [id number] 06/04/2013 12:30:00 06/04/2013 23:59: 59 CLS Outpatient GHANSHYAM NATALIA BALBIR Billingsley [id number] 05/16/2013 14:42:00 05/16/2013 23:59: 59 CLS Outpatient NAHOMY PETERSON DO [id number] 09/04/2012 09:39:00 09/04/2012 23:59: 59 CLS Outpatient NAHOMY PETERSON DO [id number] 08/16/2012 08:18:00 08/16/2012 23:59: 59 CLS Outpatient [id number] 05/16/2012 10:33:00 05/16/2012 23:59:5 9 CLS Outpatient CARISA KHAN APRN [id number] 03/01/2013 13:28:00 Document Registration [id number] 01/09/2013 11:33:00 Document Registration [id number] 11/23/2012 13:01:00 Document Registration [id number] 11/07/2012 12:42:00 Document Registration
[2020-01-20] MEDS ORDERED: RX-TRIMETH/SULFA. 160-800 MG (BACTRIM DS) TAB PPK#2 PO STA (01:40)
[2020-01-20] MEDS ORDERED: SULF1TAB35 PO (01:43)
--- NOTE | 2020-01-20 01:44 | ED Lower Extremity ---
General Chief Complaint: Lower Extremity Stated Complaint: SPOT ON R LEG, RED Nursing Triage Note: Pt ambulates to [facility] 6 with c/o right ankle/norton pain. PT states they noticed a red spot on anterior Rt norton this evening as well as redness and tenderness. Area of concern is warm to touch, ankle has moderate edema present as well. Pt is concerned about having cellulitis. Pt also reports she hasn't taken her BP meds in 3 days. Nursing Sepsis Screen: No Definite Risk Source: patient History of Present Illness Date Seen by Provider: Jan 20, 2020 Time Seen by Provider: 01:30 Initial Comments PT ARRIVES VIA POV FROM HOME C/O RED, SORE SPOT ON RIGHT LOWER LEG NOTICED IMMEDIATELY PRIOR TO ARRIVAL AND RUSHED HERE NO KNOWN INJURY STATES SHE HAS HAD CELLULITIS IN THE PAST AND THIS SIMILAR PT STATES SHE WENT TO WORK TODAY, THEN WATCHED FIREWORKS, FELL ASLEEP AND THEN WOKE UP AND NOTICED A SORE SPOT ON HER LEG NO DRAINAGE NO STREAKS NO FEVER PT HAS NOT TAKEN ANY OF HER MEDICATIONS FOR THE LAST 3 DAYS --"JUST DIDN'T" PT IS ON METFORMIN FOR "INSULIN RESISTANCE" PT WITH MULTIPLE ER VISITS FOR VARIOUS COMPLAINTS PCP: [facility], 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 CAPTAIN CARISA KHAN Allergies and Home Medications Allergies Coded Allergies: codeine (Verified Allergy, Severe, Neck swelling, pt able to tolerate Lo rtab, 12/19/19) hydrochlorothiazide (Verified Allergy, Severe, NECK SWELLING, 01/02/18) dulaglutide (Verified Allergy, Unknown, 12/11/19) Home Medications Cetirizine HCl 10 Mg Tablet, 10 MG PO DAILY, (Reported) Diltiazem HCl 240 Mg Cap.er.24h, 240 MG PO DAILY, (Reported) Famotidine 40 Mg Tablet, 40 MG PO DAILY, (Reported) Ferrous Sulfate 325 Mg Tablet, 325 MG PO DAILY, (Reported) Fluticasone Propionate 9.9 Ml [place].susp, 1 SPRAY NS DAILY, (Reported) 1 SPRAY EACH NARE DAILY Hydrocodone/Acetaminophen 1 Each Tablet, 1 EACH PO Q4H Prescribed by: JUNIOR VENEGAS on 12/19/19 1251 Losartan Potassium 50 Mg Tablet, 50 MG PO DAILY, (Reported) Metformin HCl 500 Mg Tablet, 500 MG PO BID, (Reported) Propranolol HCl 10 Mg Tablet, 10 MG PO BID, (Reported) Spironolactone 25 Mg Tablet, 25 MG PO DAILY, (Reported) Sulfamethoxazole/Trimethoprim 1 Each Tablet, 1 EACH PO BID Prescribed by: ANDREEA WASHINGTON on 01/20/20 0143 Patient Home Medication List Home Medication List Reviewed: Yes Review of Systems Constitutional: no symptoms reported; No chills, No diaphoresis, No dizziness, No fever Respiratory: no symptoms reported; No cough, No short of breath Cardiovascular: no symptoms reported; No chest pain, No palpitations Gastrointestinal: no symptoms reported Genitourinary: no symptoms reported Musculoskeletal: see HPI Skin: see HPI Psychiatric/Neurological: No Symptoms Reported Past Kanxuvb-Ykdzcb-Javvii Hx Past Med/Social Hx: Reviewed and Corrections made Patient Social History Alcohol Use: Denies Use Recreational Drug Use: No Smoking Status: Never a Smoker 2nd Hand Smoke Exposure: No Recent Foreign Travel: No Contact w/Someone Who Travel: No Recent Infectious Disease Expo: No Recent Hopitalizations: No Physical Abuse: No Sexual Abuse: No Mistreated: No Fear: No Immunizations Up To Date Tetanus Booster (TDap): More than 5yrs PED Vaccines UTD: No Seasonal Allergies Seasonal Allergies: Yes Past Medical History Surgeries: Yes ( X 3) Section, Gallbladder Respiratory: Yes Pneumonia Currently Using CPAP: No Currently Using BIPAP: No Cardiac: Yes (HEART MURMUR A CHILD) Heart Murmur, Hypertension Neurological: Yes Headaches /Migraines Reproductive Disorders: No Female Reproductive Disorders: Menstrual Problems Sexually Transmitted Disease: No HIV/AIDS: No Genitourinary: Yes UTI-Chronic Gastrointestinal: Yes Gastroesophageal Reflux Musculoskeletal: No Endocrine: Yes (MORBID OBESTIY, INSULIN RESISTANCE) Diabetes, Non-Insulin dep HEENT: Yes Tonsilitis Loss of Vision: Bilateral Hearing Impairment: Denies Cancer: No Psychosocial: No Integumentary: No Blood Disorders: Yes (ANEMIA) Adverse Reaction/Blood Tranf: No (N/A) Family Medical History Arthritis Asthma 19 FATHER (copd) 19 MOTHER (copd) Cardiovascular disease 19 FATHER (chf) Diabetes mellitus 19 FATHER Hypertension 19 FATHER 19 MOTHER G8 BROTHER G8 SISTER No Pertinent Family Hx Physical Exam Vital Signs Vital Signs - First Documented 01/20/20 00:10 Temp 37.2 Pulse 80 Resp 18 B/P (MAP) 185/113 (137) Pulse Ox 97 O2 Delivery Room Air Capillary Refill : Less Than 3 Seconds Height, Weight, BMI Height: 5'9.00" Weight: 354lbs. 0.0oz. 160.797146ab; 50.00 BMI Method:Stated General Appearance: no apparent distress, obese Cardiovascular: normal peripheral pulses, regular rate, rhythm, no murmur Respiratory: normal breath sounds, no respiratory distress, no accessory muscle use Legs: right leg other (ANTERIOR ASPECT OF RIGHT LOWER LEG, WITH AREA OF ER YTHEMA, WARMTH AND INDURATION--CENTRAL AREA OF 2X3 CM IS MORE ERYTHEMATOUS, MILDLY SWOLLEN AND INDURATED--NO CENTRAL PUNCTATION NOTED. SURROUNDING MILDER ERYTHEMA AND MILDER SWELLING AND MILDER INDURATION OF 10X15 CM. NO FLUCTUANCE. NO DRAINAGE. NO STREAKS. DISTAL MOTOR/SENSORY/VASCULAR INTACT. 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, no motor/sensory deficits, alert, normal mood/affect, oriented x 3 Skin: normal color, warm/dry, other ( ABOVE) Progress/Results/Core Measures Results/Orders My Orders Orders - ANDREEA WASHINGTON DO Rx-Trimeth/Sulfameth Ds Tab (Rx-Bactrim/ (01/20/20 01:40) Vital Signs/I&O 01/20/20 01/20/20 00:10 01:46 Temp 37.2 37.2 Pulse 80 78 Resp 18 18 B/P (MAP) 185/113 (137) 168/103 (137) Pulse Ox 97 98 O2 Delivery Room Air Room Air Blood Pressure Mean: 137 Departure Impression Primary Impression: Cellulitis of right anterior lower leg Disposition: 01 HOME, SELF-CARE Condition: Stable Departure-Patient Inst. Referrals: [facility] (PCP) Primary Care Physician CARISA KHAN (Family) Primary Care Physician Patient Instructions: Cellulitis (Skin Infection), Adult (DC) Add. Discharge Instructions: ALTERNATE ICE AND HEAT TO AREA AT 20 MINUTE INTERVALS ELEVATE LEG MUCH POSSIBLE TYLENOL AND MOTRIN NEEDED FOR PAIN FOLLOW UP WITH YOUR DR IN 2-3 DAYS FOR FURTHER CARE, OR SOONER IF WORSE All discharge instructions reviewed with patient and/or family. Voiced understanding. Scripts Sulfamethoxazole/Trimethoprim (Bactrim Ds Tablet) 1 Each Tablet 1 EACH PO BID, #20 TAB Prov: ANDREEA WASHINGTON DO 01/20/20 ANDREEA WASHINGTON DO Jan 20, 2020 01:43
[2020-01-20 01:46] VITALS: BP 168/103
== END 2020-01-20 01:49 | disposition home or self-care (01) ==
LOC: EDUNIT# 00:02 → ER 00:04
DX: L03.115 Cellulitis of right lower limb (principal); I10 Essential (primary) hypertension; E11.9 Type 2 diabetes mellitus without complications; K21.9 Gastro-esophageal reflux disease without esophagitis; Z79.84 Long term (current) use of oral hypoglycemic drugs
CPT/HCPCS: 99283

== ENCOUNTER 2020-01-26 18:20 | Emergency (ER) | payer MEDICAID ==
[~2020-01-26] VITALS: Ht 172.7 cm; Wt 156.8 kg
[2020-01-26 18:28] VITALS: BP 145/103
--- OUTSIDE RECORDS SUMMARY | 2020-01-26 18:29 | XMS REPORT | Clinical Summary ---
Author Author [facility] Organization [facility] Address Unknown Phone Unavailable Care Team Providers Care Hall Monitor Name Role Phone Diamante Bryant [facility] PCP Source Comments Some departments are not documenting in the electronic medical record. If you d o not see the information that you expected, contact Release of Information in [facility] [employer] Information Management department at [phone] for further assistan ce in locating additional records.[facility] Allergies Comments Active Allergy Reactions Severity [...] Dates Group AETNA MEDICAID AETNA xxxxxxxxxxx 2019-P [facility] [place] [address] Advance Directives Patient Rehab Director Occupational Therapist Explanation Type Date Recorded Advance Directive/DPOA
--- OUTSIDE RECORDS SUMMARY | 2020-01-26 18:35 | XMS REPORT ---
Author Author Jada Wilcox Organization [facility] Address [address] [place] [address] Care Team Providers Care Parking Officer Name Role Phone SEBAS Wilcox Unavailable PROBLEMS Type Condition ICD9-CM Code UAL49-XU Code Onset Dates Condition S tatus SNOMED Code Problem Tension headache G44.209 Active 398 330675 Problem DM neuro manif type II E11.49 Active 31343340 Problem Irritable bowel syndrome with diarrhea K58.0 Active 032276445 Problem Intractable migraine without aura and without st atus migrainosus G43.019 Active 876491774 Problem Menorrhagia with irregular cycle N92.1 Active 916735553 Problem Sleep apnea in adult G47.30 Active 95532058 Problem Other chronic pain G89.29 Active 8 6027073 Problem Iron deficiency anemia due to chronic blood loss D 50.0 Active 342254610 Problem Migraine with aura and without status migrainosu s, not intractable G43.109 Active 1634143 Problem Obstructive sleep apnea syndrome G47.33 Active 84689408 Problem Seasonal allergic rhinitis due to pollen J30.1 Active 66701768 Problem Chronic tension-type headache, not intractable G44 .229 Active 006160094 Problem HTN (hypertension) I10 Active 3 6356141 Problem Allergy, food Z91.018 Active 960583 001 Problem Primary osteoarthritis of left knee M17.12 Active [id number] Problem Hyperinsulinemia E16.1 Active 834 38333 Problem Chronic venous insufficiency I87.2 A ctive 35244381 Problem Multiple allergies Z88.9 Active 6 85761209 Problem Migraine headache G43.909 Active 37 680150 Problem Localized osteoarthritis of left knee M17.12 Active 944274724 ALLERGIES No Information ENCOUNTERS Encounter Location Date Diagnosis [facility] [address] [place] [address] [id number] [address] [place] [address] 08 Jan, [address] [address] Jan, [address] [address] Jan, Cutaneous abscess of right l ower limb L02.415 ; Cellulitis of right lower limb L03.115 ; Itching L29.9 ; Allergy, food Z91.018 ; Hyperinsulinemia E16.1 and Obstructive sleep apnea syndrome G47.[address] [address] Dec, [facility] [address] [address] Oct, Foreign body (FB) in soft ti ssue M79.[address] [address] Sep, HTN (hypertension) I10 [address] [address] Sep, Viral URI J06.9 ; Cough prod uctive of purulent sputum R05 and Exposure to influenza Z20.828 [facility] [address] [address] Sep, [facility] [address] [address] 14 Sep, 2019 Flu-like symptoms R68.[address] [address] 12 Sep, 2019 Primary osteoarthritis of le ft knee M17.12 and Acute medial meniscus tear of left knee, subsequent encounter S83.242D [facility] [address] [address] 15 Aug, 2019 Flu-like symptoms R68.89 [facility] [address] [address] 03 Aug, 2019 Sore throat J02.9 [facility] [address] [id number] [address] [place] [address] Jul, [facility] [address] [id number] [address] [place] [address] Jul, [facility] [address] [id number] [address] [place] [address] Jul, [facility] [address] [id number] [address] [place] [address] Jul, [facility] [address] [id number] [address] [place] [address] Jul, Segmental dysfunction of tho racic region M99.02 ; Segmental dysfunction of lumbar region M99.03 ; Segmental dysfunction of cervical region M99.01 and Chronic tension-type headache, not intractable G44.229 [facility] [address] [facility] [id number] [address] [place] [address] Jul, [facility] [address] [facility] [id number] [address] [place] [address] Jun, Localized osteoarthritis of left knee M17.12 [facility] [address] [facility] [id number] [address] [place] [address] Jun, Acute non-recurrent sinusiti s, unspecified location J01.90 [facility] [address] [facility] [id number] [address] [place] [address] Jun, [facility] [address] [facility] [id number] [address] [place] [phone] Jun, Viral upper respiratory trac t infection J06.9 [facility] [address] [facility] [id number] [address] [place] [address] Jun, [facility] [address] [facility] [id number] [address] [place] [address] May, Prediabetes R73.03 and Iron deficiency anemia due to chronic blood loss D50.0 [facility] [address] [address] May, [facility] [address] [address] May, Prediabetes R73.03 ; Left an terior knee pain M25.562 ; Encounter for immunization Z23 ; Migraine headache G43.909 ; Multiple allergies Z88.9 ; Snoring R06.83 and Iron deficiency anemia due to chronic blood loss D50.0 [facility] [address] [address] 16 May, 2019 Nonintractable headache, uns pecified chronicity pattern, unspecified headache type R51 and Sore throat J02.9 [place] [address] [address] 15 Apr, 2019 [place] [address] [address] 14 Apr, 2019 Fever, unspecified fever cau se R50.9 and Chest congestion R09.89 [facility] [address] [address] 18 Mar, 2019 Abdominal pain R10.9 [place] [address] [address] 16 Mar, 2019 Chronic venous insufficiency I87.2 [place] [address] [address] Feb, [place] [address] [address] Feb, [place] [address] [address] Feb, [place] [address] [address] Feb, Seasonal allergic rhinitis d ue to pollen J30.1 ; Cervicalgia M54.2 ; Pain in right leg M79.604 ; Morbid obesity E66.01 and Obstructive sleep apnea syndrome G47.33 [facility] [address] [facility] [id number] [address] [place] [address] Jan, [facility] [address] [facility] [id number] [address] [place] [phone] Jan, [facility] [address] [facility] [id number] [address] [place] [address] Jan, [facility] [address] [facility] [id number] [address] [place] [address] Jan, Food allergy Z91.018 [facility] [address] [facility] [id number] [address] [place] [address] Jan, Right ear pain H92.01 ; DM n euro manif type II E11.49 and Morbid obesity E66.01 [facility] [address] [place] [id number] [address] [place] [address] Dec, Exercise counseling Z71.82 [facility] [address] [place] [address] Dec, [facility] [address] [facility] [id number] [address] [place] [address] Dec, Acute midline low back pain without sciatica M54.5 ; Migraine headache G43.909 ; Obstructive sleep apnea syndrome G47.33 ; Localized edema R60.0 and Morbid obesity E66.01 [facility] [address] [facility] [id number] [address] [place] [address] Dec, Migraine with aura and witho ut status migrainosus, not intractable G43.109 and Morbid obesity E66.01 [facility] [address] [facility] [id number] [address] [place] [address] November, [facility] [address] [facility] [id number] [address] [place] [phone] November, [facility] [address] [facility] [id number] [address] [place] [address] November, [facility] [address] [address] November, Pain of left lower leg M79.6 [address] [place] [address] [address] November, Pain of left lower leg M79.6 62 and Candidiasis B37.9 [facility] [address] [address] November, Left leg pain M79.605 [place] [address] [address] November, Pain in right leg M79.604 [place] [address] [address] Oct, Left leg pain M79.605 ; Left leg swelling M79.89 and Morbid obesity E66.01 [place] [address] [address] Oct, Bronchitis J40 ; HTN (hypert ension) I10 and Morbid obesity E66.01 [facility] [place] [address] [address] Oct, Sore throat J02.9 and Morbid obesity E66.01 [place] [address] [address] Oct, [place] [address] [address] Oct, Allergy, food Z91.018 ; Cand idiasis B37.9 and Morbid obesity E66.01 [place] [address] [address] Sep, [place] [address] [address] Sep, Intractable migraine without aura and without status migrainosus G43.019 ; Allergic reaction to food, subsequent encounter T78.1XXD ; HTN (hypertension) I10 and Morbid obesity E66.01 [facility] [address] [address] Jul, [facility] [address] [place] [id number] [place] [address] 30 Jul, 2018 Rash R21 and BMI 50.0-59.9, adult Z68.43 [place] [address] [address] 28 Jun, 2018 Hyperinsulinemia E16.1 and M enorrhagia with irregular cycle N92.1 [place] [address] [address] 20 Jun, 2018 Primary osteoarthritis of le ft knee M17.12 [facility] [place] [address] [address] 12 Jun, 2018 Sore throat J02.9 ; Acute na sopharyngitis J00 and BMI 50.0-59.9, adult Z68.43 [place] [address] [address] 05 Jun, 2018 Other chronic pain G89.29 ; Pain in left knee M25.562 ; Hyperinsulinemia E16.1 ; Menorrhagia with irregular cycle N92.1 and BMI 50.0- 59.9, adult Z68.43 [facility] IN [place] [address] [address] Apr, BMI 50.0-59.9, adult Z68.43 ; Dysuria R30.0 and Acute UTI N39.0 [place] [address] [address] Apr, [place] [address] [address] Apr, Encounter for immunization Z 23 [place] [address] [address] Mar, Acute midline low back pain without sciatica M54.5 ; Acute pain of left knee M25.562 and BMI 50.0-59.9, adult Z68.43 [facility] [address] [address] Mar, Intractable migraine without aura and without status migrainosus G43.019 and BMI 50.0-59.9, adult Z68.43 [facility] [address] [address] Mar, Bronchitis J40 ; Allergy to food Z91.018 and BMI 50.0-59.9, adult Z68.43 [facility] [address] [address] Mar, Bronchitis J40 ; Wheezing on both sides of chest R06.2 and BMI 50.0-59.9, adult Z68.43 [place] [address] [address] Feb, Pain in right leg M79.604 [place] [address] [address] Jan, Pneumonia of left lung due t o infectious organism, unspecified part of lung J18.9 [place] [address] [address] Dec, Pneumonia due to Mycoplasma pneumoniae, unspecified laterality, unspecified part of lung J15.7 and BMI 50.0-59.9, adult Z68.43 [facility] [address] [address] Dec, [place] [address] [address] Dec, Bronchitis J40 and BMI 50.0- 59.9, adult Z68.43 [place] [address] [address] November, Bronchitis J40 ; LLQ pain R1 0.32 and BMI 50.0-59.9, adult Z68.43 [facility] [address] [address] November, Iron deficiency anemia due t o chronic blood loss D50.0 [facility] [address] [address] November, [facility] [address] [address] November, Iron deficiency anemia due t o chronic blood loss D50.0 ; DM neuro manif type II E11.49 ; Menorrhagia with irregular cycle N92.1 and BMI 50.0-59.9, adult Z68.43 [facility] [address] [address] Oct, Sore throat J02.9 and Acute nasopharyngitis J00 [facility] [address] [address] Oct, Left leg pain M79.605 and BM I 50.0-59.9, adult Z68.43 [facility] [address] [address] Sep, Upper respiratory tract infe ction, unspecified type J06.9 and BMI 50.0-59.9, adult Z68.43 [facility] [address] [address] Sep, Menorrhagia with irregular c ycle N92.1 ; Sleep apnea in adult G47.30 and BMI 50.0-59.9, adult Z68.43 [facility] [address] [address] Sep, [facility] [address] [address] Aug, [facility] [address] [address] Aug, [place] [address] [address] Aug, [place] [address] [address] Aug, LLQ pain R10.32 ; Irritable bowel syndrome with diarrhea K58.0 ; Change in bowel habits R19.4 ; Essential hypertension I10 and BMI 50.0-59.9, adult Z68.43 [place] [address] [address] Aug, [place] [address] [address] Aug, [facility] [place] [address] [address] Aug, Essential hypertension I10 a nd BMI 50.0-59.9, adult Z68.43 [place] [address] [address] Aug, [place] [address] [address] 08 Aug, 2017 [facility] [place] [address] [address] 02 Aug, 2017 Allergic disorder, initial e ncounter T78.40XA and BMI 50.0-59.9, adult Z68.43 [facility] [place] [address] [address] Jul, Other atopic dermatitis L20. 89 and BMI 50.0-59.9, adult Z68.43 [place] [address] [address] Jul, Intractable migraine without aura and without status migrainosus G43.019 and BMI 50.0-59.9, adult Z68.43 [place] [address] [address] Jun, DM neuro manif type II E11.4 9 ; Tension headache G44.209 ; Breast cancer screening Z12.31 and BMI 50.0-59.9, adult Z68.43 [facility] [address] [place] [address] Jun, 2017 Tension headache G44.209 ; B reast cancer screening Z12.31 ; BMI 50.0-59.9, adult Z68.43 and DM neuro manif type II E11.49 [facility] [address] [place] [address] Apr, Dysuria R30.0 and Acute cyst itis with hematuria N30.01 [place] [address] [address] Apr, Hyperinsulinemia E16.1 [place] [address] [address] Mar, Acute non-recurrent maxillar y sinusitis J01.00 [place] [address] [address] Feb, Cellulitis of unspecified pa rt of limb L03.119 ; Spider bite wound, accidental or unintentional, subsequent encounter T63.301D and BMI 50.0-59.9, adult Z68.43 [place] [address] [place] [id number] [address] [place] [address] Jan, [place] [address] [address] Jan, Urinary tract infection, sit e unspecified N39.0 [place] [address] [address] Jan, Acute gastritis without hemo rrhage, unspecified gastritis type K29.00 [place] [address] [place] [id number] [address] [place] [address] Dec, Pain in right leg M79.604 [place] [address] [address] 28 Dec, 2016 Hyperinsulinemia E16.1 and P ain in right leg M79.604 [facility] [address] [address] Dec, Angioedema, initial encounte r T78.3XXA [place] [address] [address] 15 Dec, 2016 Dental examination Z01.20 [place] [address] [address] 13 Dec, 2016 [place] [address] [address] Dec, Burning with urination R30.0 and Acute cystitis with hematuria N30.01 [place] [address] [address] Oct, [facility] [address] [address] Sep, [facility] [address] [address] Aug, Hyperinsulinemia E16.1 [facility] [address] [address] Aug, [facility] [address] [address] Jul, [facility] [address] [address] Jul, Chondromalacia, left knee M9 4.262 and Acute lateral meniscus tear of left knee, initial encounter S83.282A [facility] [address] [place] [id number] [address] [place] [address] Jul, [facility] [address] [place] [id number] [address] [place] [address] Jun, Hyperinsulinemia E16.1 [facility] [address] [id number] [address] [place] [address] Jun, Dysuria R30.0 ; Back pain M5 4.9 ; Acute pain of left knee M25.562 and Hyperinsulinemia E16.1 [facility] [address] [id number] [address] [place] [address] 14 Jun, 2016 Acute non-recurrent maxillar y sinusitis J01.00 [facility] [address] [id number] [address] [place] [address] 05 Jun, 2016 Dysuria R30.0 [facility] [address] [facility] [id number] [address] [place] [address] Jun, Dysuria R30.0 [facility] [address] [facility] [id number] [address] [place] [address] Jun, [facility] [address] [facility] [id number] [address] [place] [address] May, Dysuria R30.0 and Acute cyst itis with hematuria N30.01 [facility] [address] [id number] [address] [place] [address] May, Hyperinsulinemia E16.1 [facility] [address] [id number] [address] [place] [address] May, [facility] [address] [facility] [id number] [address] [place] [address] May, Sore throat J02.9 [facility] [address] [id number] [address] [place] [address] 03 May, 2016 [facility] [address] [facility] [id number] [address] [place] [address] Mar, Hyperinsulinemia E16.1 [facility] [address] [facility] [id number] [address] [place] [address] Jan, Hyperinsulinemia E16.1 [facility] [address] [facility] [id number] [address] [place] [address] Dec, DM neuro manif type II E11.4 9 [facility] [address] [id number] [address] [place] [address] November, Hyperinsulinemia E16.1 and H ypertension I10 [facility] [address] [id number] [address] [place] [address] Oct, [facility] [address] [facility] [id number] [address] [place] [address] Oct, Hyperinsulinemia E16.1 [facility] [address] [facility] [id number] [address] [place] [address] Oct, Pain, unspecified R52 [facility] [address] [facility] [id number] [address] [place] [address] Oct, Pain in right foot M79.671 a nd Hyperinsulinemia E16.1 [facility] [address] [facility] [id number] [address] [place] [address] 14 Oct, 2015 Hyperinsulinemia E16.1 [facility] [address] [facility] [id number] [address] [place] [address] Oct, Hyperinsulinemia E16.1 [facility] [address] [facility] [id number] [address] [place] [address] 17 Aug, 2015 Hypertension I10 and Viral i llness B34.9 [facility] [address] [facility] [id number] [address] [place] [address] May, Back pain M54.9 [facility] [address] [facility] [id number] [address] [place] [id number] 14 Oct, 2014 [facility] [address] [facility] [id number] [address] [place] [address] Oct, [facility] [address] [facility] [id number] [address] [place] [address] Sep, [facility] [address] [facility] [id number] [address] [place] [address] Sep, [facility] [address] [id number] [facility] [place] [address] 17 Sep, 2014 [facility] [address] [id number] [address] [place] [address], [place] [address] Sep, 2014 [facility] [address] [id number] [address] [place] [address], [place] [address] Sep, 2014 [facility] [address] [id number] [address] [place] [address], [place] [address] Sep, 2014 [facility] [address] [id number] [address] [place] [address], [place] [address] Sep, 2014 [facility] [address] [id number] [address] [place] [address], [place] [address] Sep, 2014 [facility] [address] [id number] [address] [place] [address], [place] [address] Sep, 2014 [facility] [address] [id number] [address] [place] [address], [place] [address] Sep, 2014 [facility] [address] [id number] [address] [place] [address], [place] [address] Sep, 2014 [facility] [address] [id number] [address] [place] [address], [place] [address] Sep, 2014 [facility] [address] [id number] [address] [place] [address], [place] [address] Mar, [facility] [address] [id number] [address] [place] [address], [place] [address] Mar, [facility] [address] [id number] [address] [place] [address], [place] [address] Feb, [facility] [address] [id number] [address] [place] [address], [place] [address] Feb, [facility] [address] [id number] [address] [place] [address], [place] [address] Feb, [facility] [address] [id number] [address] [place] [address], [place] [address] Feb, [facility] [address] [id number] [address] [place] [address] Dec, [facility] [address] [id number] [address] [place] [address] Dec, [facility] [address] [id number] [address] [place] [address] Dec, [facility] [address] [id number] [address] [place] [address], [place] [address] Dec, [facility] [address] [id number] [address] [place] [address], [place] [address] Dec, [facility] [address] [id number] [address] [place] [address], [place] [address] Dec, [facility] [facility] [address] [id number] [address] [place] [address], [place] [address] Dec, [facility] [address] [id number] [address] [place] [address], [place] [address] Sep, [facility] [address] [id number] [address] [place] [address], [place] [address] Sep, [facility] [address] [id number] [address] [place] [address], [place] [address] Sep, [facility] [address] [id number] [address] [place] [address], [place] [address] Sep, [facility] [address] [id number] [address] [place] [address], [place] [address] Sep, [facility] [address] [id number] [address] [place] [address], [place] [address] Sep, [facility] [address] [id number] [address] [place] [address], [place] [address] Sep, [facility] [address] [id number] [address] [place] [address], [place] [address] Sep, [facility] [address] [id number] [address] [place] [address], [place] [address] Jul, [facility] [address] [id number] [address] [place] [address], [place] [address] Jul, [facility] [address] [id number] [address] [place] [address] Jun, [facility] [address] [id number] [address] [place] [address], [place] [address] Jun, [facility] [address] [id number] [address] [place] [address], [place] [address] May, [facility] [address] [id number] [address] [place] [address], [place] [address] May, [facility] [address] [id number] [address] [place] [address], [place] [address] May, [facility] [address] [id number] [address] [place] [address], [place] [address] May, [facility] [address] [id number] [address] [place] [address], [place] [address] May, [facility] [address] [id number] [address] [place] [address], [place] [address] May, [facility] [address] [id number] [address] [place] [address] May, [facility] [address] [id number] [address] [place] [address], [place] [address] Apr, [facility] [address] [id number] [address] [place] [address] Apr, [facility] [address] [id number] [address] [place] [address] Apr, [facility] [address] [id number] [address] [place] [address], [place] [address] Apr, [facility] [address] [id number] [address] [place] [address] 30 Apr, 2013 [facility] [address] [id number] [address] [place] [address], [place] [address] Apr, [facility] [address] [id number] [address] [place] [address], [place] [address] Mar, [facility] [address] [id number] [address] [place] [address], [place] [address] Feb, [facility] [address] [id number] [address] [place] [address], [place] [address] Jan, [facility] [address] [id number] [address] [place] [address], [place] [address] Jan, [facility] [address] [id number] [address] [place] [address], [place] [address] Jan, [facility] [address] [id number] [address] [place] [address], [place] [address] Dec, [facility] [address] [id number] [address] [place] [address], [place] [address] November, [facility] [address] [id number] [address] [place] [address], [place] [address] November, [facility] [address] [id number] [address] [place] [address], [place] [address] November, [facility] [address] [id number] [address] [place] [address], [place] [address] November, [facility] [address] [id number] [address] [place] [address], [place] [address] Oct, [facility] [address] [id number] [address] [place] [address], [place] [address] Aug, [facility] [address] [id number] [address] [place] [address], [place] [address] Aug, [facility] [address] [id number] [address] [place] [address], [place] [address] Aug, [facility] [address] [id number] [address] [place] [address], [place] [address] Aug, [facility] [address] [id number] [address] [place] [address], [place] [address] Aug, [facility] [address] [id number] [address] [place] [address], [place] [address] Aug, [facility] [address] [id number] [address] [place] [address], [place] [address] Jul, [facility] [address] [id number] [address] [place] [address], [place] [address] May, [facility] [address] [id number] [address] [place] [address], [place] [address] May, [facility] [address] [id number] [address] [place] [address], [place] [address] May, [facility] [address] [id number] [address] [place] [address], [place] [address] May, [facility] [address] [id number] [address] [place] [address], [place] [address] May, [facility] [address] [id number] [address] [place] [address], [place] [address] May, [facility] [address] [id number] [address] [place] [address], [place] [address] May, [facility] [address] [id number] [address] [place] [address], [place] [address] Apr, [facility] [address] [id number] [address] [place] [address] Apr, [facility] [address] [id number] [address] [place] [address], [place] [address] Apr, [facility] [address] [id number] [address] [place] [address], [place] [address] Apr, [facility] [address] [id number] [address] [place] [address], [place] [address] Apr, [facility] [address] [id number] [address] [place] [address], [place] [address] Sep, [facility] [address] [id number] [address] [place] [address], [place] [address] 24 Aug, 2011 [facility] [address] [id number] [address] [place] [address], [place] [address] 16 Aug, 2011 [facility] [address] [id number] [address] [place] [address], [place] [address] Aug, [facility] [address] [id number] [address] [place] [address], [place] [address] Aug, [facility] [address] [id number] [address] [place] [address], [place] [address] Aug, [facility] [address] [id number] [address] [place] [address], [place] [address] Jul, [facility] [address] [id number] [address] [place] [address], [place] [address] Jul, [facility] [address] [id number] [address] [place] [address], [place] [address] Jul, [facility] [address] [id number] [address] [place] [address], [place] [address] Jun, [facility] [address] [id number] [address] [place] [address], [place] [address] Jun, [facility] [address] [id number] [address] [place] [address], [place] [address] Jun, [facility] [address] [id number] [address] [place] [address], [place] [address] May, [facility] [address] [id number] [address] [place] [address], [place] [address] 15 Apr, 2011 [facility] [address] [id number] [address] [place] [address], [place] [address] 12 Apr, 2011 [facility] [address] [id number] [address] [address] Apr, [facility] [address] [facility] [id number] [address] [address] Apr, IMMUNIZATIONS No Known Immunizations SOCIAL HISTORY Never Assessed REASON FOR VISIT PLAN OF CARE VITAL SIGNS MEDICATIONS Unknown Medications RESULTS No Results PROCEDURES Procedure Date Ordered Result Body Site CT ABDOMEN W/DYE May 17, 2013 INSTRUCTIONS MEDICATIONS ADMINISTERED No Known Medications MEDICAL (GENERAL) HISTORY Type Description Date Medical History hypertension Medical History Sleep apnea in adult Surgical History x 3 Surgical History cholecystectomy Surgical History Chemical Stress Test, EKG, Echo 05/2016 Hospitalization History surgeries Hospitalization History UTI VC 05/2016
--- OUTSIDE RECORDS SUMMARY | 2020-01-26 18:38 | XMS REPORT | Continuity of Care Document ---
Demographics Preferred Language Unknown Marital Status Unknown Caodaism Affiliation Unknown Race Unknown Ethnic Group Unknown [...] Food Allergy N/A N/A 03/01/2013 Yes codeine [id number] Drug Allergy Unknown N/A 10/29/2014 Yes hydrochlorothiazide [id number] Drug Allergy Unknown N/A 10/29/2014 Yes ONION Food Allergy N/A N/A 10/30/2014 Yes codeine [id number] Drug Allergy Severe NECK SWELLING 01/02/2018 Yes hydrochlorothiazide [id number] Drug Allergy Severe NECK SWELLING 018 Yes dulaglutide [id number] Drug Aller gy Unknown N/A 12/11/2019 Yes codeine [id number] Drug Allergy Severe Neck swelling, 12/19/2019 Medications [...] PETERSON DOA K 784.0 Headache 02/08/2008 PETERSON NAHOMY PICKETT K V18.0 FAMILY HISTORY OF DIABETES [...] FAMILY HISTORY OF DIABETES MELLITUS 02/08/2008 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, CARISA S 783.1 Weight Gain Abnormal 02/08/2008 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, CARISA S 784.0 Headache 02/08/2008 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, CARISA S V18.0 FAMILY HISTORY OF DIABETES MELLITUS 02/08/2008 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, CARISA S 783.1 Weight Gain Abnormal 02/08/2008 BILL NATALIA, CARISA S 784.0 Headache 02/08/2008 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, CARISA S V18.0 FAMILY HISTORY OF DIABETES [...] FISHER, CARISA S 784.0 Headache 02/08/2008 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, CARISA S V18.0 FAMILY HISTORY OF DIABETES MELLITUS 02/08/2008 BILL FISHER, CARISA S 783.1 Weight Gain Abnormal 02/08/2008 BILL FSIHER, CARISA S 784.0 Headache 02/08/2008 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, CARISA S V18.0 FAMILY HISTORY OF DIABETES MELLITUS 02/09/2008 250.00 Marnie betes Ii Controlled 02/09/2008 NAHOMY PETERSON DO 250.00 Diabetes Ii Controlled 02/09/2008 250.00 Marnie betes Ii Controlled 02/09/2008 250.00 Marnie betes Ii Controlled 02/09/2008 250.00 Marnie betes Ii Controlled 02/09/2008 250.00 Marnie betes Ii Controlled 02/09/2008 NAHOMY PETERSON DO 250.00 Diabetes Ii Controlled 02/09/2008 MORRISSEY FOREMAN SHIPPING DEPARTMENT, BALBIR R 250.00 Diabetes Ii Controlled 02/09/2008 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, CARISA S 250.00 Diabetes Ii Controlled 02/09/2008 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, CARISA S 250.00 Diabetes Ii Controlled 02/09/2008 GHANSHYAM FOREMAN SHIPPING DEPARTMENT, BALBIR R 250.00 Diabetes Ii Controlled 02/09/2008 JAZZMINE FOREMAN SHIPPING DEPARTMENT, RUTH A 250.00 Diabetes Ii Controlled 02/09/2008 BILL FISHER, CARISA S 250.00 Diabetes Ii Controlled 02/09/2008 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, CARISA S 250.00 Diabetes Ii Controlled 02/09/2008 GHANSHYAM CHRISTYN, BALBIR R 250.00 Diabetes Ii Controlled 02/09/2008 BILL FISHER, CARISA S 250.00 Diabetes Ii Controlled 02/09/2008 BILL FISHER, CRAISA S 250.00 Diabetes Ii Controlled 02/09/2008 BILL [...] APRNIA R 462 Pharyngitis Acute 08/01/2008 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, CARISA S 462 Pharyngitis Acute 08/01/2008 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, CARISA S 462 Pharyngitis Acute 08/01/2008 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, CARISA S 462 Pharyngitis Acute 12/18/2008 599.0 Urin aditi Tract Infection 12/18/2008 PETERSON DOCAROLA K 599.0 Urinary Tract Infection 12/18/2008 599.0 Urin aditi Tract Infection 12/18/2008 599.0 Urin aditi Tract Infection 12/18/2008 599.0 Urin aditi Tract Infection 12/18/2008 599.0 Urin aditi Tract Infection 12/18/2008 PETERSON DOCAROLA K 599.0 Urinary Tract Infection 12/18/2008 MORRISSEY FOREMAN SHIPPING DEPARTMENT, BALBIR R 599.0 Urinary Tract Infection 12/18/2008 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, CARISA S 599.0 Urinary Tract Infection 12/18/2008 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, CARISA S 599.0 Urinary Tract Infection 12/18/2008 MORRISSEY FOREMAN SHIPPING DEPARTMENT, BALBIR R 599.0 Urinary Tract Infection 12/18/2008 JAZZMINE FOREMAN SHIPPING DEPARTMENT, RUTH A 59 9.0 Urinary Tract Infection 12/18/2008 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, CARISA S 599.0 Urinary Tract Infection 12/18/2008 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, CARISA S 599.0 Urinary Tract Infection 12/18/2008 MORRISSEY FOREMAN SHIPPING DEPARTMENT, BALBIR R 599.0 Urinary Tract Infection 12/18/2008 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, CARISA S 599.0 Urinary Tract Infection 12/18/2008 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, CARISA S 599.0 Urinary Tract Infection 12/18/2008 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, CARISA S 599.0 Urinary Tract Infection 01/22/2009 401.1 ESSE NTIAL HYPERTENSION BENIGN 01/22/2009 NAHOMY PETERSON DO K 401.1 ESSENTIAL HYPERTENSION BENIGN 01/22/2009 401.1 ESSE NTIAL HYPERTENSION BENIGN 01/22/2009 401.1 ESSE NTIAL HYPERTENSION BENIGN 01/22/2009 401.1 ESSE NTIAL HYPERTENSION BENIGN 01/22/2009 401.1 ESSE NTIAL HYPERTENSION BENIGN 01/22/2009 NAHOMY PETERSON DO K 401.1 ESSENTIAL HYPERTENSION BENIGN 01/22/2009 GHANSHYAM FOREMAN SHIPPING DEPARTMENTFANY [place] 401.1 ESSENTIAL HYPERTENSION BENIGN 01/22/2009 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, CARISA S 401.1 ESSENTIAL HYPERTENSION BENIGN 01/22/2009 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, CARISA S 401.1 ESSENTIAL HYPERTENSION BENIGN 01/22/2009 MORRISSEY FOREMAN SHIPPING DEPARTMENTFANY [place] 401.1 ESSENTIAL HYPERTENSION BENIGN 01/22/2009 JAZZMINELIZZ FISHER RUTH A 40 1.1 ESSENTIAL HYPERTENSION BENIGN 01/22/2009 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, CARISA S 401.1 ESSENTIAL HYPERTENSION BENIGN 01/22/2009 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, CARISA S 401.1 ESSENTIAL HYPERTENSION BENIGN 01/22/2009 FANY MORRISSEY APRNRICIA R 401.1 ESSENTIAL HYPERTENSION BENIGN 01/22/2009 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, CARISA S 401.1 ESSENTIAL HYPERTENSION BENIGN 01/22/2009 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, CARISA S 401.1 ESSENTIAL HYPERTENSION BENIGN 01/22/2009 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, CARISA S 401.1 ESSENTIAL HYPERTENSION BENIGN 08/07/2009 [...] In Joint, Ankle And Foot 08/07/2009 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, CARISA S 719.47 Pain In Joint, Ankle And Foot 08/07/2009 FANY MORRISSEY APRNRICIA R 719.47 Pain In Joint, Ankle And Foot 08/07/2009 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, CARISA S 719.47 Pain In Joint, Ankle And Foot 08/07/2009 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, CARISA S 719.47 Pain In Joint, Ankle And Foot 08/07/2009 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, CARISA S 719.47 Pain In Joint, Ankle [...] RUTH DOVER APRN 780.79 Fatigue 08/11/2009 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, CARISA S 780.79 Fatigue 08/11/2009 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, CARISA S 780.79 Fatigue 08/11/2009 FANY MORRISSEY APRNRICIA R 780.79 Fatigue 08/11/2009 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, CARISA S 780.79 Fatigue 08/11/2009 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, CARISA S 780.79 Fatigue 08/11/2009 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, CARISA S 780.79 Fatigue 09/09/2009 V74.1 Scre [...] Screening Examination For Pulmonary Tuberculosis 09/09/2009 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, CARISA S V74.1 Screening Examination For Pulmonary Tuberculosis 09/09/2009 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, CARISA S V74.1 Screening Examination For Pulmonary Tuberculosis 09/09/2009 GHANSHYAM FISHER, BALBIR R V74.1 Screening Examination For Pulmonary Tuberculosis 09/09/2009 JAZZMINE FISHER, RUTH A V7 4.1 Screening Examination For Pulmonary Tuberculosis 09/09/2009 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, CARISA S V74.1 Screening Examination For Pulmonary [...] A V72.31 Routine Gynecological Examination 09/15/2009 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, CARISA S V72.31 Routine Gynecological Examination 09/15/2009 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, CARISA S V72.31 Routine Gynecological Examination 09/15/2009 GHANSHYAM FOREMAN SHIPPING DEPARTMENTFANY [place] V72.31 Routine Gynecological Examination 09/15/2009 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, CARISA S V72.31 Routine Gynecological Examination 09/15/2009 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, CARISA S V72.31 Routine Gynecological Examination 09/15/2009 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, CARISA S V72.31 Routine Gynecological Examination 12/11/2009 [...] R 300.00 Anxiety State, Unspecified 12/11/2009 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, CARISA S 300.00 Anxiety State, Unspecified 12/11/2009 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 CARISA S 300.00 Anxiety State, Unspecified 12/11/2009 FANY MORRISSEY APRNRICIA R 300.00 Anxiety State, Unspecified 12/11/2009 JAZZMINE FISHER RUTH A 300.00 Anxiety State, Unspecified 12/11/2009 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, CARISA S 300.00 Anxiety State, Unspecified 12/11/2009 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, CARISA S 300.00 Anxiety State, Unspecified 12/11/2009 FANY MORRISSEY APRNRICIA R 300.00 Anxiety State, Unspecified 12/11/2009 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, CARISA S 300.00 Anxiety State, Unspecified 12/11/2009 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, CARISA S 300.00 Anxiety State, Unspecified 12/11/2009 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, CARISA S 300.00 Anxiety State, Unspecified 04/27/2011 [...] NAHOMY K 727.43 Ganglion Unspecified 04/27/2011 MORRISSEY FOREM[employer]IPPING DEPARTMENT, BALBIR R 461.0 Acute Maxillary Sinusitis 04/27/2011 MORRISSEY FOREMAN SHIPPING DEPARTMENT, BALBIR R 727.43 Ganglion Unspecified 04/27/2011 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, CARISA S 461.0 Acute Maxillary Sinusitis 04/27/2011 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, CARISA S 727.43 Ganglion Unspecified 04/27/2011 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, CARISA S 461.0 Acute Maxillary Sinusitis 04/27/2011 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, CARISA S 727.43 Ganglion Unspecified 04/27/2011 MORRISSEY FOREMAN SHIPPING DEPARTMENT, BALBIR R 461.0 Acute Maxillary Sinusitis 04/27/2011 MORRISSEY FOREMAN SHIPPING DEPARTMENT, BALBIR R 727.43 Ganglion Unspecified 04/27/2011 JAZZMINE FOREMAN SHIPPING DEPARTMENT, RUTH A 46 1.0 Acute Maxillary Sinusitis 04/27/2011 JAZZMINE FOREMAN SHIPPING DEPARTMENT, RUTH A 727.43 Ganglion Unspecified 04/27/2011 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, CARISA S 461.0 Acute Maxillary Sinusitis 04/27/2011 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, CARISA S 727.43 Ganglion Unspecified 04/27/2011 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, CARISA S 461.0 Acute Maxillary Sinusitis 04/27/2011 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, CARISA S 727.43 Ganglion Unspecified 04/27/2011 GHANSHYAM FOREMAN SHIPPING DEPARTMENT, BALBIR R 461.0 Acute Maxillary Sinusitis 04/27/2011 MORRISSEY FOREMAN SHIPPING DEPARTMENT, BALBIR R 727.43 Ganglion Unspecified 04/27/2011 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, CARISA S 461.0 Acute Maxillary Sinusitis 04/27/2011 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, CARISA S 727.43 Ganglion Unspecified 04/27/2011 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, CARISA S 461.0 Acute Maxillary Sinusitis 04/27/2011 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, CARISA S 727.43 Ganglion Unspecified 04/27/2011 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, CARISA S 461.0 Acute Maxillary Sinusitis 04/27/2011 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, CARISA S 727.43 Ganglion Unspecified 07/01/2011 Ot [...] 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 08/18/2011 YU DOVRE APRNIDI A 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 [...] R 465.9 UPPER RESPIRATORY INFECTION 08/25/2011 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, CARISA S 465.9 UPPER RESPIRATORY INFECTION 08/25/2011 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, CARISA S 465.9 UPPER RESPIRATORY INFECTION 08/25/2011 GHANSHYAM FOREMAN SHIPPING DEPARTMENT, BALBIR R 465.9 UPPER RESPIRATORY INFECTION 08/25/2011 JAZZMINE FOREMAN SHIPPING DEPARTMENT, RUTH A 46 5.9 UPPER RESPIRATORY INFECTION 08/25/2011 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, CARISA S 465.9 UPPER RESPIRATORY INFECTION 08/25/2011 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, CARISA S 465.9 UPPER RESPIRATORY INFECTION 08/25/2011 HGANSHYAM FOREMAN SHIPPING DEPARTMENT, BALBIR R 465.9 UPPER RESPIRATORY INFECTION 08/25/2011 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, CARISA S 465.9 UPPER RESPIRATORY INFECTION 08/25/2011 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, CARISA S 465.9 UPPER RESPIRATORY INFECTION 08/25/2011 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, CARISA S 465.9 UPPER RESPIRATORY INFECTION 09/01/2011 [...] R 311 MO DEPRESS NOS 09/01/2011 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, CARISA S 311 MO DEPRESS NOS 09/01/2011 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, CARISA S 311 MO DEPRESS NOS 09/01/2011 BALBIR MORRISSEY APRN R 311 MO DEPRESS NOS 09/01/2011 JAZZMINE FOREMAN SHIPPING DEPARTMENT, RUTH A 31 1 MO DEPRESS NOS 09/01/2011 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, CARISA S 311 MO DEPRESS NOS 09/01/2011 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, CARISA S 311 MO DEPRESS NOS 09/01/2011 BALBIR MORRISSEY APRN R 311 MO DEPRESS NOS 09/01/2011 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, CARISA S 311 MO DEPRESS NOS 09/01/2011 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, CARISA S 311 MO DEPRESS NOS 09/01/2011 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, CARISA S 311 MO DEPRESS NOS 09/02/2011 [...] APRN R 462 ACUTE PHARYNGITIS 05/16/2012 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, CARISA S 462 ACUTE PHARYNGITIS 05/16/2012 GEORGETTE [...] (3 YRS AND ABOVE, IM) 05/25/2012 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, CARISA S V04.81 FLU DX (3 YRS AND ABOVE, IM) 05/25/2012 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, CARISA S V04.81 FLU DX (3 YRS AND ABOVE, IM) 05/25/2012 GHANSHYAM FISHER, BALBIR R V04.81 FLU DX (3 YRS AND ABOVE, IM) 05/25/2012 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, CARISA S V04.81 FLU DX (3 YRS AND ABOVE, IM) 05/25/2012 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, CARISA S V04.81 FLU DX (3 YRS AND ABOVE, IM) 05/25/2012 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, CARISA S V04.81 FLU DX (3 YRS [...] MORRISSEY APRNRICIA R 461.9 SINUSITIS ACUTE 08/16/2012 FAYN MORRISSEY APRNRICIA R 784.0 HEADACHE 08/16/2012 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, CARISA S 461.9 SINUSITIS ACUTE 08/16/2012 BILL CHRISTYN, CARISA S 784.0 HEADACHE 08/16/2012 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, CARISA S 461.9 SINUSITIS ACUTE 08/16/2012 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, CARISA S 784.0 HEADACHE 08/16/2012 RADHA MORRISSEY APRNIA R 461.9 SINUSITIS ACUTE 08/16/2012 MORRISSEY FOREMAN SHIPPING DEPARTMENT, BALBIR R 784.0 HEADACHE 08/16/2012 JAZZMINE FOREMAN SHIPPING DEPARTMENT, RUTH A 46 1.9 SINUSITIS ACUTE 08/16/2012 JAZZMINE FOREMAN SHIPPING DEPARTMENT, RUTH A 78 4.0 HEADACHE 08/16/2012 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, CARISA S 461.9 SINUSITIS ACUTE 08/16/2012 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, CARISA S 784.0 HEADACHE 08/16/2012 MORRISSEY FOREMAN SHIPPING DEPARTMENT, BALBIR R 461.9 SINUSITIS ACUTE 08/16/2012 MORRISSEY FOREMAN SHIPPING DEPARTMENT, BALBIR R 784.0 HEADACHE 08/16/2012 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, CARISA S 461.9 SINUSITIS ACUTE 08/16/2012 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, CARISA S 784.0 HEADACHE 08/16/2012 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, CARISA S 461.9 SINUSITIS ACUTE 08/16/2012 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, CARISA S 784.0 HEADACHE 08/16/2012 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, CARISA S 461.9 SINUSITIS ACUTE 08/16/2012 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, CARISA S 784.0 HEADACHE 09/04/2012 NAHOMY PETERSON [...] CERVICAL CANCER SCREENING (PAP SMEAR) 09/04/2012 GHANSHYAM FOREMAN SHIPPING DEPARTMENT, BALBIR R 278.00 OBESITY 09/04/2012 GHANSHYAM FOREMAN SHIPPING DEPARTMENT, BALBIR R V73.81 HPV SCREENING 09/04/2012 MORRISSEY FOREMAN SHIPPING DEPARTMENT, BALBIR R V76.2 CERVICAL CANCER SCREENING (PAP [...] FISHER, CARISA S 278.00 OBESITY 09/04/2012 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, CARISA S V73.81 HPV SCREENING 09/04/2012 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, CARISA S V76.2 CERVICAL CANCER SCREENING (PAP SMEAR) 09/04/2012 BILL FISHER, CARISA S 278.00 OBESITY 09/04/2012 BILL FISHER, CARISA S V73.81 HPV SCREENING 09/04/2012 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, CARISA S V76.2 CERVICAL CANCER SCREENING (PAP SMEAR) 11/07/2012 786.2 cough 11/07/2012 786.2 cough 11/07/2012 786.2 cough 11/07/2012 786.2 cough 11/07/2012 NAHOMY PETERSON DO K 786.2 cough 11/07/2012 RADHA MORRISSEY APRNIA R 786.2 cough 11/07/2012 BILL FISHER CARISA S 786.2 COUGH 11/07/2012 BILL FISHER, CARISA S 786.2 COUGH 11/07/2012 GHANSHYAM FISHER, BALBIR R 786.2 COUGH 11/07/2012 RUTH DOEVR APRN 78 6.2 COUGH 11/07/2012 BILL FISHER, [...] APRN R 701.9 SKIN TAG 11/21/2012 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, CARISA S 701.9 SKIN TAG 11/21/2012 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, CARISA S 701.9 SKIN TAG 11/21/2012 RADHA MORRISSEY APRNIA R 701.9 SKIN TAG 11/21/2012 JAZZMINE FOREMAN SHIPPING DEPARTMENTRUTH [place] A 70 1.9 SKIN TAG 11/21/2012 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, CARISA S 701.9 SKIN TAG 11/21/2012 BALBIR MORRISSEY APRN R 701.9 SKIN TAG 11/21/2012 BILL CHRISTYN, CARISA S 701.9 SKIN TAG 11/21/2012 BILL CHRISTYN, CARISA S 701.9 SKIN TAG 11/21/2012 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, CARISA S 701.9 SKIN TAG 11/22/2012 Ot [...] S 995.27 OTHER DRUG ALLERGY 11/23/2012 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, CARISA S 995.27 OTHER DRUG ALLERGY 11/23/2012 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, CARISA S 995.27 OTHER DRUG ALLERGY 11/27/2012 Ot 729.1 MYAL GOPAL AND MYOSITIS NOS 11/27/2012 Ot 787.01 JASON SEA WITH VOMITING 11/27/2012 Ot 787.91 MARNIE RRHEA 01/23/2013 Ot 462 ACUTE PHARYNGITIS 03/01/2013 995.3 EDWAR RGY UNSPECIFIED NOT ELSEWHERE CLASSIFIED 03/01/2013 PETERSON DO, NAHOMY K 995.3 ALLERGY UNSPECIFIED NOT ELSEWHERE CLASSIFIED 03/01/2013 GHANSHYAM FOREMAN SHIPPING DEPARTMENT BALBIR R 995.3 ALLERGY UNSPECIFIED NOT ELSEWHERE CLASSIFIED 03/01/2013 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, CARISA S 995.3 ALLERGY UNSPECIFIED NOT ELSEWHERE CLASSIFIED 03/01/2013 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, CARISA S 995.3 ALLERGY UNSPECIFIED NOT ELSEWHERE CLASSIFIED 03/01/2013 GHANSHYAM FOREMAN SHIPPING DEPARTMENT, BALBIR R 995.3 ALLERGY UNSPECIFIED NOT ELSEWHERE CLASSIFIED 03/01/2013 JAZZMINE FOREMAN SHIPPING DEPARTMENT, RUTH A 99 5.3 ALLERGY UNSPECIFIED NOT ELSEWHERE CLASSIFIED 03/01/2013 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, CARISA S 995.3 ALLERGY UNSPECIFIED NOT ELSEWHERE CLASSIFIED 03/01/2013 GHANSHYAM FOREMAN SHIPPING DEPARTMENT BALBIR R 995.3 ALLERGY UNSPECIFIED NOT ELSEWHERE CLASSIFIED 03/01/2013 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, CARISA S 995.3 ALLERGY UNSPECIFIED NOT ELSEWHERE CLASSIFIED 03/01/2013 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, CARISA S 995.3 ALLERGY UNSPECIFIED NOT ELSEWHERE CLASSIFIED 03/01/2013 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, CARISA S 995.3 ALLERGY UNSPECIFIED NOT ELSEWHERE CLASSIFIED 05/16/2013 PETERSON DO, NAHOMY K 789.09 ABDOMINAL PAIN OTHER SPECIFIED SITE 05/16/2013 GHANSHYAM FOREMAN SHIPPING DEPARTMENT, BALBIR R 789.09 ABDOMINAL PAIN OTHER SPECIFIED SITE 05/16/2013 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, CARISA S 789.09 ABDOMINAL PAIN OTHER SPECIFIED SITE 05/16/2013 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, CARISA S 789.09 ABDOMINAL PAIN OTHER SPECIFIED SITE 05/16/2013 GHANSHYAM FISHER BALBIR R 789.09 ABDOMINAL PAIN OTHER SPECIFIED SITE 05/16/2013 JAZZMINE FOREMAN SHIPPING DEPARTMENT, RUTH A 789.09 ABDOMINAL PAIN OTHER SPECIFIED SITE 05/16/2013 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, CARISA S 789.09 ABDOMINAL PAIN OTHER SPECIFIED SITE 05/16/2013 FANY MORRISSEY APRNRICIA R 789.09 ABDOMINAL PAIN OTHER SPECIFIED SITE 05/16/2013 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, CARISA S 789.09 ABDOMINAL PAIN OTHER SPECIFIED SITE 05/16/2013 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, CARISA S 789.09 ABDOMINAL PAIN OTHER SPECIFIED SITE 05/16/2013 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, CARISA S 789.09 ABDOMINAL PAIN OTHER SPECIFIED SITE 06/04/2013 GHANSHYAM FISHER BALBIR R 729.5 PAIN IN LIMB 06/04/2013 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, CARISA S 729.5 PAIN IN LIMB 06/04/2013 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, CARISA S 729.5 PAIN IN LIMB 06/04/2013 GHANSHYAM FISHER BALBIR R 729.5 PAIN IN LIMB 06/04/2013 JAZZMINE FOREMAN SHIPPING DEPARTMENT, RUTH A 72 9.5 PAIN IN LIMB 06/04/2013 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, CARISA S 729.5 PAIN IN LIMB 06/04/2013 FANY MORRISSEY APRNRICIA R 729.5 PAIN IN LIMB 06/04/2013 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, CARISA S 729.5 PAIN IN LIMB 06/04/2013 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, CARISA S 729.5 PAIN IN LIMB 06/04/2013 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, CARISA S 729.5 PAIN IN LIMB 06/18/2013 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, CARISA S 573.8 OTHER SPECIFIED DISORDERS OF LIVER 06/18/2013 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, CARISA S 573.8 OTHER SPECIFIED DISORDERS OF LIVER 06/18/2013 FANY MORRISSEY APRNRICIA R 573.8 OTHER SPECIFIED DISORDERS OF LIVER 06/18/2013 JAZZMINE CHRISTYN, RUTH A 57 3.8 OTHER SPECIFIED DISORDERS OF LIVER 06/18/2013 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, CARISA S 573.8 OTHER SPECIFIED DISORDERS OF LIVER 06/18/2013 FANY MORRISSEY APRNRICIA R 573.8 OTHER SPECIFIED DISORDERS OF LIVER 06/18/2013 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, CARISA S 573.8 OTHER SPECIFIED DISORDERS OF LIVER 06/18/2013 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, CARISA S 573.8 OTHER SPECIFIED DISORDERS OF LIVER 06/18/2013 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, CARISA S 573.8 OTHER SPECIFIED DISORDERS OF [...] CARISA S 034.0 STREP THROAT 12/27/2013 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, CARISA S 034.0 STREP THROAT 12/27/2013 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, CARISA S 034.0 STREP THROAT 01/03/2014 JAZZMINE FOREMAN SHIPPING DEPARTMENT, RUTH A 59 9.0 URINARY TRACT INFECTION 01/03/2014 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, CARISA S 599.0 URINARY TRACT INFECTION 01/03/2014 GHANSHYAM FOREMAN SHIPPING DEPARTMENT, BALBIR R 599.0 URINARY TRACT INFECTION 01/03/2014 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, CARISA S 599.0 URINARY TRACT INFECTION 01/03/2014 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, CARISA S 599.0 URINARY TRACT INFECTION 01/03/2014 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, CARISA S 599.0 URINARY TRACT INFECTION 02/10/2014 [...] FISHER CARISA S 784.0 HEADACHE 03/08/2014 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, CARISA S 477.8 ALLERGIC RHINITIS DUE TO OTHER ALLERGEN 03/08/2014 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, CARISA S 784.0 HEADACHE 03/08/2014 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, CARISA S 477.8 ALLERGIC RHINITIS DUE TO OTHER ALLERGEN 03/08/2014 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, CARISA S 784.0 HEADACHE 09/17/2014 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, CARISA S 465.9 UPPER RESPIRATORY INFECTION 09/17/2014 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, CARISA S 465.9 UPPER RESPIRATORY INFECTION 09/17/2014 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, CARISA S 465.9 UPPER RESPIRATORY INFECTION 09/25/2014 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, 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 S 346.90 MIGRAINE HEADACHE 09/25/2014 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, CARISA S 786.2 COUGH 09/25/2014 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 9 TYPE 2 DIABETES MELLITUS WITHOUT COMPLIC 07/13/2016 ANNA OSBORN MDNT A Ot I10 ESSENTIAL (PRIMARY) HYPERTENSION 07/13/2016 ANNA OSBORN MDNT A Ot J02. 0 STREPTOCOCCAL PHARYNGITIS 07/13/2016 ANNA OSBORN MDNT A Ot J02. 9 ACUTE PHARYNGITIS, UNSPECIFIED 07/13/2016 LEIGHA OSBORN MD A Ot Z79. 84 DIAMOND CLEANER (CURRENT) USE OF ORAL HYPOGLYC 07/13/2016 ANNA OSBORN MDNT A Ot Z79.899 OTHER GROUP HOME (CURRENT) DRUG THERAPY 07/14/2016 LEIGHA OSBORN MD A Ot E11. 9 TYPE 2 DIABETES MELLITUS WITHOUT COMPLIC 07/14/2016 LEIGHA OSBORN MD A Ot I10 ESSENTIAL (PRIMARY) HYPERTENSION 07/14/2016 ANNA OSBORN MDNT A Ot J02. 0 STREPTOCOCCAL PHARYNGITIS 07/14/2016 ANNA OSBORN MDNT A Ot J02. 9 ACUTE PHARYNGITIS, UNSPECIFIED 07/14/2016 LEIGHA OSBORN MD A Ot Z79. 84 DIAMOND CLEANER (CURRENT) USE OF ORAL HYPOGLYC 07/14/2016 ANNA OSBORN MDNT A Ot Z79.899 OTHER GROUP HOME (CURRENT) DRUG THERAPY 07/18/2016 LEIGHA OSBORN MD A Ot E11. 9 TYPE 2 DIABETES MELLITUS WITHOUT COMPLIC 07/18/2016 ANNA OSBORN MDNT A Ot I10 ESSENTIAL (PRIMARY) HYPERTENSION 07/18/2016 ANNA OSBORN MDNT A Ot J02. 0 STREPTOCOCCAL PHARYNGITIS 07/18/2016 ANNA OSBORN MDNT A Ot J02. 9 ACUTE PHARYNGITIS, UNSPECIFIED 07/18/2016 ANNA OSBORN MDNT A Ot Z79. 84 DIAMOND CLEANER (CURRENT) USE OF ORAL HYPOGLYC 07/18/2016 ANNA OSBORN MDNT A Ot Z79.899 OTHER DIAMOND CLEANER (CURRENT) DRUG THERAPY 12/04/2016 ALLEGRA VILLATORO APRN Ot E11 .9 TYPE 2 DIABETES MELLITUS WITHOUT COMPLIC 12/04/2016 ALLEGRA VILLATORO [employer]AN [employer]PING DEPARTMENT Ot I10 ESSENTIAL (PRIMARY) HYPERTENSION 12/04/2016 ALLEGRA VILLATORO APRN Ot S40.012A CONTUSION OF LEFT SHOULDER, INITIAL ENCO 12/04/2016 ALLEGRA VILLATORO APRN Ot S49.92XA UNSP INJURY OF LEFT SHOULDER AND UPPER A 12/04/2016 ALLEGRA VILLATORO APRN Ot W01.0XXA FALL SAME LEV FROM SLIP/TRIP W/O STRIKE 12/04/2016 LALEGRA VILLATORO APRN Ot Y92.39 [facility] SPORTS AND ATHLETIC AREA PLACE 12/04/2016 ALLEGRA VILLATORO APRN Ot Y99 .8 OTHER EXTERNAL CAUSE STATUS 12/04/2016 ALLEGRA VILLATORO APRN Ot Z79.84 GROUP HOME (CURRENT) USE OF ORAL HYPOGLYC 12/06/2016 [...] STRIKE 12/06/2016 ALLEGRA VILLATORO APRN Ot Y92.39 [facility] SPORTS AND ATHLETIC AREA PLACE 12/06/2016 ALLEGRA VILLATORO APRN Ot Y99 .8 OTHER EXTERNAL CAUSE STATUS 12/06/2016 ALLEGRA VILLATORO APRN Ot Z79.84 GROUP HOME (CURRENT) USE OF ORAL HYPOGLYC 02/07/2017 FELIX [...] 02/07/2017 FELIX DO, ANDREEA K Ot Z79.84 DIAMOND CLEANER (CURRENT) USE OF ORAL HYPOGLYC 02/07/2017 FELIX [...] 02/08/2017 FELIX DO, ANDREEA K Ot Z79.84 DIAMOND CLEANER (CURRENT) USE OF ORAL HYPOGLYC 02/08/2017 FELIX [...] OTH NONVE 03/05/2017 SOLO ALFARO Ot Z79.84 DIAMOND CLEANER (CURRENT) USE OF ORAL HYPOGLYC 03/05/2017 SOLO [...] OTH NONVE 03/08/2017 SOLO ALFARO Ot Z79.84 GROUP HOME (CURRENT) USE OF ORAL HYPOGLYC 03/08/2017 SOLO ALFARO Ot Z82.49 FAMILY HX OF ISCHEM HEART DIS AND OTH DI 03/08/2017 SOLO ALFARO Ot Z87.59 PERSONAL HISTORY OF COMP OF PREG, CHLDBR 09/04/2017 FAITH, JIGAR ONLINE MARKETING MANAGER Ot E11.9 TYPE 2 DIABETES MELLITUS WITHOUT COMPLIC 09/04/2017 FAITH, JIGAR ONLINE MARKETING MANAGER Ot G44.201 TENSION-TYPE HEADACHE, UNSPECIFIED, INTR 09/04/2017 FAITH, JIGAR ONLINE MARKETING MANAGER Ot I10 ESSENTIAL (PRIMARY) HYPERTENSION 09/04/2017 FAITH, JIGAR ONLINE MARKETING MANAGER Ot R51 HEADACHE 09/04/2017 FAITH, JIGAR ONLINE MARKETING MANAGER Ot Z79.84 GROUP HOME (CURRENT) USE OF ORAL HYPOGLYC 09/04/2017 FAITH, JIGAR ONLINE MARKETING MANAGER Ot Z82.49 FAMILY HX OF ISCHEM HEART DIS AND OTH DI 09/04/2017 FAITH, JIGAR ONLINE MARKETING MANAGER Ot Z87.01 PERSONAL HISTORY OF PNEUMONIA (RECURRENT 09/04/2017 FAITH, JIGAR ONLINE MARKETING MANAGER Ot Z87.59 PERSONAL HISTORY OF COMP OF PREG, CHLDBR 09/04/2017 FAITH, JIGAR ONLINE MARKETING MANAGER Ot Z88.5 ALLERGY STATUS TO NARCOTIC AGENT STATUS 09/04/2017 FAITH, JIGAR ONLINE MARKETING MANAGER Ot Z88.8 ALLERGY STATUS TO OTH DRUG/MEDS/BIOL SUB 09/06/2017 FAITH JIGAR ONLINE MARKETING MANAGER Ot E11.9 TYPE 2 DIABETES MELLITUS WITHOUT COMPLIC 09/06/2017 FAITH JIGAR ONLINE MARKETING MANAGER Ot G44.201 TENSION-TYPE HEADACHE, UNSPECIFIED, INTR 09/06/2017 FAITH JIGAR ONLINE MARKETING MANAGER Ot I10 ESSENTIAL (PRIMARY) HYPERTENSION 09/06/2017 FAITH JIGAR ONLINE MARKETING MANAGER Ot R51 HEADACHE 09/06/2017 FAITH JIGAR ONLINE MARKETING MANAGER Ot Z79.84 DIAMOND CLEANER (CURRENT) USE OF ORAL HYPOGLYC 09/06/2017 JIGAR CUEVAS ONLINE MARKETING MANAGER Ot Z82.49 FAMILY HX OF ISCHEM HEART DIS AND OTH DI 09/06/2017 FAITH JIGAR ONLINE MARKETING MANAGER Ot Z87.01 PERSONAL HISTORY OF PNEUMONIA (RECURRENT 09/06/2017 JIGAR CUEVASP Ot Z87.59 PERSONAL HISTORY OF COMP OF PREG, CHLDBR 09/06/2017 FAITH JIGAR ONLINE MARKETING MANAGER Ot Z88.5 ALLERGY STATUS TO NARCOTIC AGENT STATUS 09/06/2017 FAITH JIGAR ONLINE MARKETING MANAGER Ot Z88.8 ALLERGY STATUS TO OTH DRUG/MEDS/BIOL SUB 09/08/2017 ALLEGRA VILLATORO APRN Ot B34 .9 VIRAL INFECTION, UNSPECIFIED 09/08/2017 ALLEGRA VILLATORO APRN Ot E11 .9 TYPE 2 DIABETES MELLITUS WITHOUT COMPLIC 09/08/2017 ALLEGRA VILLATORO APRN Ot I10 ESSENTIAL (PRIMARY) HYPERTENSION 09/08/2017 ALLEGRA VILLATORO APRN Ot R51 HEADACHE 09/08/2017 ALLEGRA VILLATORO APRN Ot Z79.84 DIAMOND CLEANER (CURRENT) USE OF ORAL HYPOGLYC 09/08/2017 ALLEGRA VILLATORO APRN Ot Z82.49 FAMILY HX OF ISCHEM HEART DIS AND OTH DI 09/08/2017 ALLEGRA VILLATORO APRN Ot Z87.01 PERSONAL HISTORY OF PNEUMONIA (RECURRENT 09/08/2017 ALLEGRA VILLATORO APRN Ot Z87.59 PERSONAL HISTORY OF COMP OF PREG, CHLDBR 09/08/2017 ALLEGRA VILLATORO APRN Ot Z88 .5 ALLERGY STATUS TO NARCOTIC AGENT STATUS 09/08/2017 ALLEGRA VILLATORO FOREMAN SHIPPING DEPARTMENT Ot Z88 .8 ALLERGY STATUS TO OTH DRUG/MEDS/BIOL SUB 09/12/2017 ALLEGRA VILLATORO FOREMAN SHIPPING DEPARTMENT Ot B34 .9 VIRAL INFECTION, UNSPECIFIED 09/12/2017 ALLEGRA VILLATORO APRN Ot E11 .9 TYPE 2 DIABETES MELLITUS WITHOUT COMPLIC 09/12/2017 ALLEGRA VILLATORO APRN Ot I10 ESSENTIAL (PRIMARY) HYPERTENSION 09/12/2017 ALLEGRA VILLATORO APRN Ot R51 HEADACHE 09/12/2017 ALLEGRA VILLATORO APRN Ot Z79.84 DIAMOND CLEANER (CURRENT) USE OF ORAL HYPOGLYC 09/12/2017 ALLEGRA [...] N85.2 HYPERTROPHY OF UTERUS 10/18/2017 CARISA KHAN ONLINE MARKETING MANAGER Ot N85.2 HYPERTROPHY OF UTERUS 11/03/2017 CARY ANGLIN FOREMAN SHIPPING DEPARTMENT Ot M79.605 PAIN IN LEFT LEG 11/03/2017 CARY ANGLIN FOREMAN SHIPPING DEPARTMENT Ot M79.605 PAIN IN LEFT LEG 11/03/2017 CARY ANGLIN FOREMAN SHIPPING DEPARTMENT Ot M79.605 PAIN IN LEFT LEG 11/15/2017 CARY ANGLIN FOREMAN SHIPPING DEPARTMENT Ot M79.605 PAIN IN LEFT LEG 12/05/2017 FELIX DO ANDREEA K Ot E11.9 TYPE 2 DIABETES MELLITUS WITHOUT COMPLIC 12/05/2017 FELIX PICKETT ANDREEA K Ot E66.01 MORBID (SEVERE) OBESITY DUE TO EXCESS CA 12/05/2017 FELIX DO ANRDEEA K Ot G43.909 MIGRAINE, UNSP, NOT INTRACTABLE, [...] ADULT 11/14/2018 ANDREEA WASHINGTON DO Ot Z79.51 GROUP HOME (CURRENT) USE OF INHALED STERO 11/14/2018 ANDREEA WASHINGTON DO Ot Z79.84 GROUP HOME (CURRENT) USE OF ORAL HYPOGLYC 11/14/2018 ANDREEA [...] PICKETT Ot I10 ESSENTIAL (PRIMARY) HYPERTENSION 11/18/2018 BROWNTON ANDREEA Posada Ot K21.9 GASTRO-ESOPHAGEAL REFLUX DISEASE WITHOUT 11/18/2018 BROWNTON ANDREEA Posada Ot M79.605 PAIN IN LEFT LEG 11/18/2018 BROWNTON ANDREEA PICKETT Ot M79.662 PAIN IN LEFT LOWER LEG 11/18/2018 FELIX ANDREEA Posada Ot Z68.44 BODY MASS INDEX (BMI) 60.0-69.9, ADULT 11/18/2018 FELIX ANDREEA Posada Ot Z79.51 GROUP HOME (CURRENT) USE OF INHALED STERO 11/18/2018 BROWNTON ANDREEA Posada Ot Z79.84 DIAMOND CLEANER (CURRENT) USE OF ORAL HYPOGLYC 11/18/2018 BROWNTON ANDREEA Posada Ot Z82.49 FAMILY HX OF ISCHEM HEART DIS AND OTH DI 11/18/2018 FELIX ANDREEA Posada Ot Z87.01 PERSONAL HISTORY OF PNEUMONIA (RECURRENT 11/18/2018 FELIX ANDREEA Posada Ot Z87.19 PERSONAL HISTORY OF OTHER DISEASES OF TH 11/18/2018 FELIX ANDREEA Posada Ot Z88.5 ALLERGY STATUS TO NARCOTIC AGENT STATUS 11/18/2018 BROWNTON ANDREEA Posada Ot Z88.8 ALLERGY STATUS TO [...] SIDE 12/08/2018 ALINE DECKER MD, Ot Z79.51 DIAMOND CLEANER (CURRENT) USE OF INHALED STERO 12/08/2018 ALINE DECKER MD, Ot Z79.52 DIAMOND CLEANER (CURRENT) USE OF SYSTEMIC STER 12/08/2018 ALINE DECKER MD, Ot Z79.84 DIAMOND CLEANER (CURRENT) USE OF ORAL HYPOGLYC 12/08/2018 ALINE DECKER MD, Ot Z82.49 FAMILY HX OF ISCHEM HEART DIS AND OTH DI 12/08/2018 ALNIE DECKER MD, Ot Z87.01 PERSONAL HISTORY OF [...] ADULT 12/13/2018 ALLEGRA VILLATORO APRN Ot Z79.51 DIAMOND CLEANER (CURRENT) USE OF INHALED STERO 12/13/2018 ALLEGRA VILLATORO APRN Ot Z79.52 DIAMOND CLEANER (CURRENT) USE OF SYSTEMIC STER 12/13/2018 ALLEGRA [...] ESSENTIAL (PRIMARY) HYPERTENSION 04/06/2019 VILLATORO, PETER J FOREMAN SHIPPING DEPARTMENT Ot K21 .9 GASTRO-ESOPHAGEAL REFLUX DISEASE WITHOUT 04/06/2019 ALLEGRA VILLATORO APRN Ot R10.31 RIGHT LOWER QUADRANT PAIN 04/06/2019 ALLEGRA VILLATORO APRN Ot R10 .9 UNSPECIFIED ABDOMINAL PAIN 04/06/2019 ALLEGRA VILLATORO APRN Ot Z79.51 GROUP HOME (CURRENT) USE OF INHALED STERO 04/06/2019 ALLEGRA VILLATORO APRN Ot Z79.52 DIAMOND CLEANER (CURRENT) USE OF SYSTEMIC STER 04/06/2019 ALLEGRA VILLATORO APRN Ot Z79.84 GROUP HOME (CURRENT) USE OF ORAL HYPOGLYC 04/06/2019 ALLEGRA VILLATORO APRN Ot Z82.49 FAMILY HX OF ISCHEM HEART DIS AND OTH DI 04/06/2019 ALLEGRA VILLATORO APRN Ot Z87.440 PERSONAL HISTORY OF URINARY (TRACT) INFE 04/06/2019 ALLEGRA VILLATORO APRN Ot Z88 .5 ALLERGY STATUS TO NARCOTIC AGENT STATUS 04/06/2019 ALLEGRA VILLATORO APRN Ot Z88 .8 ALLERGY STATUS TO [facility] DRUG/MEDS/BIOL SUB 04/07/2019 ALLEGRA VILLATORO APRN [...] PAIN 04/07/2019 ALLEGRA VILLATORO APRN Ot Z79.51 GROUP HOME (CURRENT) USE OF INHALED STERO 04/07/2019 ALLEGRA VILLATORO APRN Ot Z79.52 GROUP HOME (CURRENT) USE OF SYSTEMIC STER 04/07/2019 ALLEGRA VILLATORO APRN Ot Z79.84 DIAMOND CLEANER (CURRENT) USE OF ORAL HYPOGLYC 04/07/2019 ALLEGRA [...] ADULT 09/26/2019 ALLEGRA VILLATORO APRN Ot Z79.51 DIAMOND CLEANER (CURRENT) USE OF INHALED STERO 09/26/2019 ALLEGRA VILLATORO APRN Ot Z79.84 GROUP HOME (CURRENT) USE OF ORAL HYPOGLYC 09/26/2019 ALLEGRA [...] (SEVERE) OBESITY DUE TO EXCESS CA 12/24/2019 FEDERICA ERICKSON, BAUDILIO Parks Ot G43.909 MIGRAINE, UNSP, NOT INTRACTABLE, WITHOUT [...] ADULT 12/24/2019 BAUDILIO STALLWORTH MD, Ot Z79.84 DIAMOND CLEANER (CURRENT) USE OF ORAL HYPOGLYC 12/24/2019 BAUDILIO STALLWORTH MD, Ot Z79.899 OTHER GROUP HOME (CURRENT) DRUG THERAPY 12/24/2019 BAUDILIO STALLWORTH MD, Ot Z88.5 ALLERGY STATUS TO NARCOTIC AGENT STATUS 12/24/2019 BAUDILIO STALLWORTH MD, Ot Z88.8 ALLERGY STATUS TO OTH DRUG/MEDS/BIOL SUB 01/25/2020 FELIX DO ANDREEA K Ot E11.9 TYPE 2 DIABETES MELLITUS WITHOUT COMPLIC 01/25/2020 FELIX PICKETT ANDREEA K Ot I10 ESSENTIAL (PRIMARY) HYPERTENSION 01/25/2020 FELIX PICKETT ANDREEA Swetha Ot K21.9 GASTRO-ESOPHAGEAL REFLUX DISEASE WITHOUT 01/25/2020 FELIX DO ANDREEA K Ot L03.115 CELLULITIS OF RIGHT LOWER LIMB 01/25/2020 FELIX PICKETT ANDREEA K Ot Z79.84 GROUP HOME (CURRENT) USE OF ORAL HYPOGLYC 01/25/2020 FELIX ANDREEA PICKETT Ot E11.9 TYPE 2 DIABETES MELLITUS WITHOUT COMPLIC 01/25/2020 FELIX ANDREEA PICKETT Ot I10 ESSENTIAL (PRIMARY) HYPERTENSION 01/25/2020 FELIX ANDREEA PICKETT Ot K21.9 GASTRO-ESOPHAGEAL REFLUX DISEASE WITHOUT 01/25/2020 FELIX ANDREEA PICKETT Ot L03.115 CELLULITIS OF RIGHT LOWER LIMB 01/25/2020 ANDREEA WASHINGTON DO Ot Z79.84 GROUP HOME (CURRENT) USE OF ORAL HYPOGLYC Procedures Code [place] [address] PAP SMEAR 09/04/2012 Q0091 PAP SMEAR OBTAIN SMEAR 09/04/2012 20876 ROUT INE VENIPUNCTURE 11/22/2012 62954 A1C (IN-HOUSE) 11/22/2012 64575 CMP 11/22/2012 [id number] GF R CALC (RESULT ONLY) 11/22/2012 56445 TSH 11/22/2012 34375 EKG, TRACING (IN-HOUSE) 11/23/2012 39040 INSU RUFINO LEVEL 11/23/[address] A BDOMEN W/ CONTRAST 05/16/2013 20229 US A BDOMEN ULTRASOUND, LIMITED (SPECIFY ORGAN) 06/20/2013 44504 ROUT INE VENIPUNCTURE 10/10/2013 01536 CBC 10/10/2013 [id number] GF R CALC (RESULT ONLY) 10/10/2013 73988 CMP 10/10/2013 38033 TSH 10/10/2013 16760 INSU RUFINO LEVEL 10/10/2013 30478 STRE P A (IN-HOUSE) 12/27/2013 47194 UA W / CULTURE IF INDICATED 01/03/2014 51565 CULT URE URINE 01/05/2014 J1885 YANA DOL INJ 03/08/2014 51424 THER APUTIC INJ SQ/IM 03/08/2014 37468 ROUT INE VENIPUNCTURE 10/14/2014 77421 A1C (IN-HOUSE) 10/14/2014 16466 CMP 10/14/2014 8367900 GF R CALC (RESULT ONLY) 10/14/2014 35168 INSU RUFINO LEVEL 10/14/2014 Results Test Result [...] culture - 06/12/16 17:00 Bacterial urine culture [id number] NRG COLONY COUNT 10,000/ML - 100,000/ML NRG FTX;REPORTABLE SENSITIVITY REPORTED AT 1621, 1116 NRG URINE CULTURE RESULTS PLUS NRG Bacterial [...] culture - 02/06/17 23:41 Bacterial urine culture [id number] NRG COLONY COUNT >100,000/ML NRG FTX;REPORTABLE PLUS, NRG FREE TEXT ENTRY 2 MIXED DENISSE <10,000/ML NRG CULTURE, URINE - 05/15/17 15:02 Urine Culture, Routine Final report NRG Result 1 NRG Urine Culture, Routine - 05/15/17 15:02 Urine Culture, Routine Note CMP - 07/07/17 13:21 GLUCOSE 82 mg/dL 65-99 UREA NITROGEN (BUN) 12 mg/dL 7-25 CREATININE 0.70 mg/dL 0.50-1.10 eGFR NON-AFR. MONGOLIAN 108 mL/min/1.73m2 > OR = 60 eGFR [...] FERRITIN 15 ng/mL 16-232 Coronavirus SARS-CoV-2 SO 2018 - 0 13:54 Coronavirus Ab [Units/volume] in Serum Negative Negative Methicillin resistant Staphylococcus aur eus (MRSA) screening culture - 12/19/19 08:00 Methicillin resistant Staphylococcus aureus (MRSA) scr eening culture NEG NRG LIPID PANEL - 01/21/20 10:20 CHOLESTEROL, TOTAL 148 mg/dL <200 HDL CHOLESTEROL 42 mg/dL > OR = 50 TRIGLYCERIDES 133 mg/dL <150 LDL-CHOLESTEROL 83 mg/dL (calc) NRG CHOL/HDLC RATIO 3.5 (calc) <5.0 NON HDL CHOLESTEROL 106 mg/dL (calc) <13 0 GGT - 01/21/20 10:20 GGT 13 U/L 3-55 INSULIN LEVEL - 01/21/20 10:20 INSULIN 12.8 uIU/mL NRG Encounters ACCT No. Visit Date/Time Discharge Status Pt. Type Provider Facility Loc./Unit Complaint [id number] 12/18/2016 20:06:00 Document Registration [id number] 01/23/2020 16:40:00 ACT Outpatient CARISA KHAN APRN [facility] [id number] 01/21/2020 09:20:00 Document Registration [id number] 06/08/2019 10:40:00 Document Registration [id number] 05/08/2018 17:45:00 Document Registration [id number] 11/30/2017 15:40:00 Document Registration [id number] 09/12/2017 09:40:00 Document Registration [id number] 07/07/2017 13:20:00 Document Registration [id number] 05/15/2017 13:10:00 Document Registration [id number] 01/20/2020 00:04:00 01:49:00 DIS Outpatient ANDREEA WASHINGTON DO, [facility] ER SPOT ON R LEG, RED [id number] 12/19/2019 07:16:00 17:49:00 DIS Outpatient BAUDILIO STALLWORTH MD [facility] SDC LEFT KNEE MEDIAL MENIS CUS TEAR [id number] 12/14/2019 07:56:00 14:31:00 DIS Outpatient BAUDILIO STALLWORTH MD [facility] PREOP LEFT KNEE MEDIAL MENIS CUS [id number] 09/21/2019 08:58:00 11:38:00 DIS Outpatient ALLEGRA VILLATORO APRN [facility] ER FALL;NOSE INJ [id number] 04/04/2019 15:13:00 17:13:00 DIS Outpatient ALLEGRA VILLATORO APRN [facility] ER RT ABDOMEN PAIN [id number] 12/07/2018 15:54:00 019 17:07:00 DIS Outpatient ALLEGRA VILLATORO APRN [facility] ER HEADACHE [id number] 12/06/2018 15:37:00 019 23:59:59 CLS Outpatient CARISA KHAN [facility] RAD PAIN OF LEFT LOWER LEG [id number] 12/04/2018 02:27:00 05:43:00 DIS Outpatient ALINE DECKER MD [facility] ER LOWER BACK PAIN AND STOMACH [id number] 11/16/2018 12:00:00 019 23:59:59 CLS Preadmit FELIXANDREEA Carranza DO [facility] RAD L CALF PAIN [id number] 11/12/2018 21:22:00 019 23:00:00 DIS Outpatient ANDREEA WASHINGTON DO, [facility] ER PAIN IN LEFT LEG [id number] 04/13/2018 16:47:00 018 23:59:59 CLS Outpatient TRELL BEAULIEU MD [facility] RAD M54.5,M25.562 [id number] 02/08/2018 12:38:00 018 15:40:00 DIS Outpatient EVELINA EMYERS DO [facility] ENDO BLOOD IN STOOL/REFLUX [id number] 02/01/2018 05:41:00 018 14:57:00 DIS Outpatient EVELINA MEYERS DO [facility] PREOP COLONOSCOPY [id number] 01/12/2018 07:30:00 018 23:59:59 CLS Preadmit BAUDILIO NAGY DO [facility] SDC ABNORMAL UTERINE BLEEDI NG [id number] 01/02/2018 06:40:00 018 13:16:00 DIS Outpatient EDUARDO MONTENEGRO MD [facility] PREOP COLONOSCOPY [id number] 12/04/2017 23:23:00 018 03:02:00 DIS Emergency ANDREEA WASHINGTON DO Vi [facility] ER L SIDE PAIN/VOMITING/DI ARRHEA [id number] 11/02/2017 19:11:00 018 23:59:59 CLS Outpatient CARY ANGLIN APRN [facility] RAD LEFT LEG PAIN [id number] 10/04/2017 09:43:00 018 23:59:59 CLS Outpatient CARISA KHAN [facility] RAD MENORRHAGIA W/ IRREGUL AR CYCLE [id number] 09/23/2017 14:00:00 018 23:59:59 CLS Preadmit CARISA KHAN [facility] RAD N92.1 MENORRHAGIA W/IRR EGULAR CYCLE [id number] 09/13/2017 17:01:00 018 20:21:00 DIS Emergency SOLO ALFARO [facility] ER SEVERE ABD PAIN [id number] 09/08/2017 17:05:00 018 19:50:00 DIS Emergency ALLEGRA VILLATORO APRN [facility] ER HEADACHE/NEW RX/WEAKNES S [id number] 09/04/2017 10:35:00 018 13:05:00 DIS Emergency FAITH JIGAR ABDIRIZAK [facility] ER HEADACHE [id number] 03/05/2017 13:40:00 017 15:53:00 DIS Emergency SOLO ALFARO [facility] ER POSS SPIDER BITE ON RT ANKLE [id number] 02/06/2017 22:43:00 017 00:34:00 DIS Emergency FELIX DO, ANDREEA K [facility] ER L SIDE PAIN [id number] 02/05/2017 10:06:00 017 12:50:00 DIS Emergency ALLEGRA VILLATORO APRN [facility] ER L SIDE BACK PAIN [id number] 12/04/2016 14:45:00 017 15:53:00 DIS Emergency ALLEGRA VILLATORO APRN [facility] ER FALL, L ARM/ELBOW INJ [id number] 07/13/2016 13:25:00 016 16:49:00 DIS Emergency LEIGHA OSBORN MD [facility] ER HEADACHE/FLU SYMPTOMS [id number] 06/12/2016 17:38:00 016 18:30:00 DIS Inpatient TORRES BANKS MD [facility] ICU ACS ROLE OUT, 2ND PREFE RENCE CHEST PAIN [id number] 10/28/2014 23:14:00 00:56:00 DIS Emergency ANDREEA WASHINGTON DO [facility] ER ALLERGIC RXN TO ONIONS [id number] 02/10/2014 20:42:00 23:10:00 DIS Emergency ENMA GARCIA MD [facility] ER HEADACHE [id number] 09/19/2013 08:17:00 23:59:59 CLS Outpatient CARISA KHAN [facility] RAD HEPATIC CYST [id number] 08/01/2013 08:54:00 Document Registration [id number] 05/21/2013 08:56:00 Document Registration [id number] 05/16/2013 15:57:00 Document Registration [id number] 01/22/2013 22:21:00 Document Registration [id number] 11/27/2012 16:36:00 Document Registration [id number] 11/22/2012 19:33:00 Document Registration [id number] 11/22/2012 11:17:00 Document Registration [id number] 11/16/2012 21:28:00 Document Registration [id number] 05/12/2012 17:46:00 Document Registration [id number] 04/06/2012 21:45:00 Document Registration [id number] 07/01/2011 11:18:00 Document Registration [id number] 08/01/2013 08:54:00 014 10:10:00 DIS Emergency [id number] 05/21/2013 08:56:00 23:59:59 CLS Outpatient [id number] 05/16/2013 15:57:00 23:59:59 CLS Outpatient [id number] 01/22/2013 22:21:00 01:19:00 DIS Emergency [id number] 11/27/2012 16:36:00 20:10:00 DIS Emergency [id number] 11/22/2012 19:33:00 23:33:00 DIS Emergency [id number] 11/22/2012 11:17:00 013 12:50:00 DIS Emergency [id number] 11/16/2012 21:28:00 013 23:27:00 DIS Emergency [id number] 06/22/2016 08:39:00 Document Registration [id number] 05/18/2017 03:08:00 Document Registration [id number] 10/30/2014 14:05:00 10/30/2014 23:59: 59 CLS Outpatient 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SHANNONA S [id number] 10/14/2014 08:34:00 10/14/2014 23:59: 59 CLS Outpatient 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SHANNONA S [id number] 09/25/2014 13:52:00 09/25/2014 23:59: 59 CLS Outpatient CARISA KHAN APRN S [id number] 03/08/2014 13:20:00 03/08/2014 23:59: 59 CLS Outpatient BALBIR MORRISSEY APRN [id number] 02/18/2014 11:27:00 02/18/2014 23:59: 59 CLS Outpatient CARISA KHAN APRN S [id number] 01/03/2014 08:43:00 01/03/2014 23:59: 59 CLS Outpatient RUTH DOVER APRN [employer] [id number] 12/27/2013 12:02:00 12/27/2013 23:59: 59 CLS Outpatient GHANSHYAM NATALIABALBIR [id number] 10/10/2013 08:08:00 10/10/2013 23:59: 59 CLS Outpatient CARISA KHAN APRN S [id number] 06/18/2013 14:53:00 06/18/2013 23:59: 59 CLS Outpatient SHANNON KHAN APRNA S [id number] 06/04/2013 12:30:00 06/04/2013 23:59: 59 CLS Outpatient GHANSHYAM FOREMAN SHIPPING DEPARTMENTBALBIR [place] [id number] 05/16/2013 14:42:00 05/16/2013 23:59: 59 CLS Outpatient NAHOMY PETERSON DO [id number] 09/04/2012 09:39:00 09/04/2012 23:59: 59 CLS Outpatient NAHOMY PETERSON DO [id number] 08/16/2012 08:18:00 08/16/2012 23:59: 59 CLS Outpatient [id number] 05/16/2012 10:33:00 05/16/2012 23:59:5 9 CLS Outpatient CARISA KHAN APRN [id number] 03/01/2013 13:28:00 Document Registration [id number] 01/09/2013 11:33:00 Document Registration [id number] 11/23/2012 13:01:00 Document Registration [id number] 11/07/2012 12:42:00 Document Registration
[2020-01-26] MEDS ORDERED: cefTRIAXone 1,000 MG/2.86 ml vial (IM ONLY) IM ONE (19:00)
[2020-01-26] MEDS ORDERED: LIDOCAINE 1% INJ 20 ML 20 ML VIAL INJ ONE (19:00)
[2020-01-26] MEDS ORDERED: DOXYCYCLINE 100 MG (VIBRAMYCIN) TABLET PO ONE (19:00)
[2020-01-26] MEDS ORDERED: TRAM-42 PO (19:04)
[2020-01-26] MEDS ORDERED: DOXY100T2 PO (19:04)
--- NOTE | 2020-01-26 19:04 | ED Lower Extremity ---
General Chief Complaint: Lower Extremity Stated Complaint: R LEG CELLULITIS Nursing Triage Note: Pt ambulates to room #5 with c/o R lower extremity errythema et discomfort. Pt reports on 01/19/20 she was seen in this ED et dx with celulitis to R lower extremity. Pt reports she was prescribed Bactrim ATX et has been taking medication as prescribed. Pt states, "It feels like its on fire and like i'm being stabbed." Pt reports low grade fever on 01/25/20. A&OX4. Nursing Sepsis Screen: No Definite Risk Source: patient Exam Limitations: no limitations History of Present Illness Date Seen by Provider: Jan 26, 2020 Time Seen by Provider: 18:31 Initial Comments This 45-year-old woman presents to the emergency room with concerns about persistent cellulitis on the anterior right lower leg. She was first seen in the emergency room on 01/19 and prescribed Bactrim. She has since followed up in the clinic and continues on Bactrim. She thought there was initially some improvement but tonight she has increasing pain that shoots deep into her leg. She also reports a fever yesterday of 100.6 but is afebrile today. Erythema has not spread beyond its original markings. Allergies and Home Medications Allergies Coded Allergies: codeine (Verified Allergy, Severe, Neck swelling, pt able to tolerate Lortab, 12/19/19) hydrochlorothiazide (Verified Allergy, Severe, NECK SWELLING, 01/02/18) dulaglutide (Verified Allergy, Unknown, 12/11/19) Home Medications Cetirizine HCl 10 Mg Tablet, 10 MG PO DAILY, (Reported) Diltiazem HCl 240 Mg Cap.er.24h, 240 MG PO DAILY, (Reported) Doxycycline Hyclate 100 Mg Tablet, 100 MG PO BID Prescribed by: ALINE BAH on 01/26/20 1904 Famotidine 40 Mg Tablet, 40 MG PO DAILY, (Reported) Ferrous Sulfate 325 Mg Tablet, 325 MG PO DAILY, (Reported) Fluticasone Propionate 9.9 Ml Molina.susp, 1 SPRAY NS DAILY, (Reported) 1 SPRAY EACH NARE DAILY Hydrocodone/Acetaminophen 1 Each Tablet, 1 EACH PO Q4H Prescribed by: JUNIRO VENEGAS on 12/19/19 1251 Losartan Potassium 50 Mg Tablet, 50 MG PO DAILY, (Reported) Metformin HCl 500 Mg Tablet, 500 MG PO BID, (Reported) Propranolol HCl 10 Mg Tablet, 10 MG PO BID, (Reported) Spironolactone 25 Mg Tablet, 25 MG PO DAILY, (Reported) Sulfamethoxazole/Trimethoprim 1 Each Tablet, 1 EACH PO BID Prescribed by: ANDREEA WASHINGTON on 01/20/20 0143 Tramadol HCl 50 Mg Tablet, 50 MG PO Q6H PRN for PAIN-BREAKTHROUGH Prescribed by: ALINE BAH on 01/26/20 1904 Patient Home Medication List Home Medication List Reviewed: Yes Review of Systems Constitutional: see HPI EENTM: no symptoms reported Respiratory: no symptoms reported Cardiovascular: no symptoms reported Gastrointestinal: no symptoms reported Genitourinary: no symptoms reported Musculoskeletal: see HPI Skin: see HPI Psychiatric/Neurological: No Symptoms Reported Past Skqhivw-Qewuwo-Lanzyi Hx Past Med/Social Hx: Reviewed Nursing Past Med/Soc Hx Patient Social History 2nd Hand Smoke Exposure: No Recent Foreign Travel: No Contact w/Someone Who Travel: No Recent Infectious Disease Expo: No Recent Hopitalizations: No Immunizations Up To Date Tetanus Booster (TDap): More than 5yrs PED Vaccines UTD: No Seasonal Allergies Seasonal Allergies: Yes Past Medical History Surgeries: Yes ( X 3) Section, Gallbladder Respiratory: Yes Pneumonia Currently Using CPAP: No Currently Using BIPAP: No Cardiac: Yes (HEART MURMUR A CHILD) Heart Murmur, Hypertension Neurological: Yes Headaches /Migraines Reproductive Disorders: No Female Reproductive Disorders: Menstrual Problems Sexually Transmitted Disease: No HIV/AIDS: No Genitourinary: Yes UTI-Chronic Gastrointestinal: Yes Gastroesophageal Reflux Musculoskeletal: No Endocrine: Yes (MORBID OBESTIY, INSULIN RESISTANCE) Diabetes, Non-Insulin dep HEENT: Yes Tonsilitis Loss of Vision: Bilateral Hearing Impairment: Denies Cancer: No Psychosocial: No Integumentary: No Blood Disorders: Yes (ANEMIA) Adverse Reaction/Blood Tranf: No (N/A) Family Medical History Arthritis Asthma 19 FATHER (copd) 19 MOTHER (copd) Cardiovascular disease 19 FATHER (chf) Diabetes mellitus 19 FATHER Hypertension 19 FATHER 19 MOTHER G8 BROTHER G8 SISTER No Pertinent Family Hx Physical Exam Vital Signs Vital Signs - First Documented 01/26/20 18:28 Temp 36.5 Pulse 84 Resp 18 B/P (MAP) 145/103 (117) Pulse Ox 97 O2 Delivery Room Air Capillary Refill : Less Than 3 Seconds Height, Weight, BMI Height: 5'9.00" Weight: 354lbs. 0.0oz. 160.227013ut; 52.00 BMI Method:Stated General Appearance: WD/WN, no apparent distress HEENT: normal ENT inspection Neck: normal inspection Cardiovascular: regular rate, rhythm, no edema, no murmur Respiratory: lungs clear, normal breath sounds, no respiratory distress Legs: right leg other (erythema, tenderness, and mild warmth in an area about 12 cm in diameter on the anterior portion of the right lower leg. 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, no motor/sensory deficits, alert, normal mood/affect, oriented x 3 Skin: warm/dry, other (see above) Progress/Results/Core Measures Results/Orders Lab Results Laboratory Tests Test 01/26/20 18:39 Range/Units Glucometer 97 70-110 MG/DL My Orders Orders - ALINE DECKER MD Accucheck Stat ONCE (01/26/20 18:36) Ceftriaxone For Im Use (Rocephin For Im (01/26/20 19:00) Lidocaine 1% Inj 20 Ml (Xylocaine 1% Inj (01/26/20 19:00) Doxycycline Hyclate Tablet (Vibramycin T (01/26/20 19:00) Tramadol Tablet (Ultram Tablet) (01/26/20 19:00) Vital Signs/I&O 01/26/20 18:28 Temp 36.5 Pulse 84 Resp 18 B/P (MAP) 145/103 (117) Pulse Ox 97 O2 Delivery Room Air Blood Pressure Mean: 117 FSBG Bedside Testing Finger Stick Blood Glucose: 97 Blood Glucose Action Taken: Provider notified. Progress Progress Note : Progress Note Bedside ultrasound was performed. There were no superficial abscesses that would be amenable to drainage. I am suspicious patient actually has a spider bite due to the dusky appearance of the central portion of the affected area. However, persistent cellulitis cannot be ruled out as a concurrent condition or an alternative diagnosis. For this reason a Rocephin injection was administered and doxycycline was added to the antibiotic regimen. Pain was treated with Ultram. Departure Impression Primary Impression: Cellulitis Qualified Codes: L03.90 - Cellulitis, unspecified Disposition: HOME, SELF-CARE Condition: Improved Departure-Patient Inst. Referrals: [facility] (PCP) Primary Care Physician CARISA KHAN (Family) Primary Care Physician Patient Instructions: Cellulitis (Skin Infection), Adult (DC) Add. Discharge Instructions: Add doxycycline to your Bactrim and finish Bactrim as previously prescribed. For pain you may take ibuprofen up to 600 mg every 6 hours and Tylenol (ac etaminophen) up to 1000 mg every 6 hours as needed. Add Ultram for pain not controlled by [id number] medications. Your symptoms may actually be induced by a spider bite. If this is the case, antibiotics may not improve your condition but should prevent secondary infection. Spider bites usually resolve and heal within 4-8 weeks. Follow-up with your primary care team next week for reevaluation. Continue to take daily pictures to monitor progress. Elevate your leg to the level of your heart is often as possible. Return to care if you have worsening symptoms despite treatment, especially if you develop persistent fevers over 100. All discharge instructions reviewed with patient and/or family. Voiced understanding. Scripts Tramadol HCl (Ultram) 50 Mg Tablet 50 MG PO Q6H PRN for PAIN-BREAKTHROUGH, #15 TAB Prov: ALINE DECKER MD 01/26/20 Doxycycline Hyclate (Doxycycline Hyclate) 100 Mg Tablet 100 MG PO BID, #20 TAB 0 Refills Prov: ALINE DECKER MD 01/26/20 Copy Copies To 1: NAHOMY PETERSON JOSHUA T MD Jan 26, 2020 19:04
== END 2020-01-26 19:14 | disposition home or self-care (01) ==
LOC: EDUNIT# 18:20 → ER 18:23
DX: L03.115 Cellulitis of right lower limb (principal); I10 Essential (primary) hypertension; K21.9 Gastro-esophageal reflux disease without esophagitis; E66.01 Morbid (severe) obesity due to excess calories; Z68.43 Body mass index [BMI] 50.0-59.9, adult; E11.9 Type 2 diabetes mellitus without complications; Z79.84 Long term (current) use of oral hypoglycemic drugs; E88.81 Metabolic syndrome and other insulin resistance
CPT/HCPCS: 82962

== ENCOUNTER → 2020-02-01 | Outpatient (CLI) | payer MEDICAID ==
[~2020-02-01] MED LIST changes: +DOXY100T2 PO; +TRAM-42 PO
--- NOTE | 2020-02-01 10:11 | Diagnostic Imaging Report ---
INDICATION: Right leg swelling and pain. COMPARISON: None TECHNIQUE: Duplex, royal-scale and color-flow imaging of the right lower extremity venous system was performed. FINDINGS: The common femoral vein, superficial femoral vein, profunda femoris, and popliteal veins are normal. These vessels show normal compressibility, color flow, and doppler augmentation. The deep calf veins, although not very well seen, demonstrate no distinct intraluminal thrombus. IMPRESSION: Negative venous Doppler of the right lower extremity. Dictated by: Dictated on workstation # [id number]
== END ==
LOC: RAD 08:53
PROVIDERS: ATTEND Nurse Practitioner Community Health
DX: M79.604 Pain in right leg (principal); M79.89 Other specified soft tissue disorders

== ENCOUNTER 2020-02-22 14:07 | Emergency (ER) | payer MEDICAID ==
[~2020-02-22] VITALS: Ht 175 cm; Wt 156.0 kg
[~2020-02-22 14:07] MED LIST changes: +HYDR-3817 PO; -HYDR-4342 PO
[2020-02-22] MEDS ORDERED: LACTATED RINGERS 1,000 ML IV ONE (14:37)
[2020-02-22] MEDS ORDERED: PROMETHAZINE INJ 25 MG/ML (PHENERGAN) AMP IVP ONE (14:45)
[2020-02-22] MEDS ORDERED: KETOROLAC 30 MG/ML VIAL IVP ONE (14:45)
[2020-02-22] MEDS ORDERED: NITROGLYCERIN 0.4 MG SL TABS BTL 25'S SL PRN (14:45)
[2020-02-22] MEDS ORDERED: ASPIRIN 81 MG CHEW (CHILDREN'S ASA) PO ONE (14:45)
[2020-02-22 14:49] LABS: BASOPHILS % (AUTO) 0 % (0-10); EOSINOPHILS # (AUTO) 0.2 10^3/uL (0.0-0.3); EOSINOPHILS % (AUTO) 3 % (0-10); HEMATOCRIT 43 % (35-52); HEMOGLOBIN 14.1 G/DL (11.5-16.0); LYMPHOCYTES # (AUTO) 1.8 X 10^3 (1.0-4.0); LYMPHOCYTES % (AUTO) 21 % (12-44); MEAN CORPUSCULAR HEMOGLOBIN 27 PG (25-34); MEAN CORPUSCULAR HGB CONC 33 G/DL (32-36); MEAN CORPUSCULAR VOLUME 82 FL (80-99); MEAN PLATELET VOLUME 9.4 FL (7.4-10.4); MONOCYTES # (AUTO) 0.5 X 10^3 (0.0-1.0); MONOCYTES % (AUTO) 6 % (0-12); NEUTROPHILS # (AUTO) 5.9 X 10^3 (1.8-7.8); NEUTROPHILS % (AUTO) 70 % (42-75); PLATELET COUNT 349 10^3/uL (130-400); RED CELL DISTRIBUTION WIDTH 13.9 % (10.0-14.5); WHITE BLOOD COUNT 8.5 10^3/uL (4.3-11.0)
[2020-02-22 14:58] LABS: PROTHROMBIN TIME PATIENT 13.4 SEC (12.2-14.7)
[2020-02-22 15:01] LABS: ALANINE AMINOTRANSFERASE 23 U/L (0-55); ALBUMIN 4.4 GM/DL (3.2-4.5); ALKALINE PHOSPHATASE 54 U/L (40-136); BILIRUBIN,TOTAL 0.5 MG/DL (0.1-1.0); BUN/CREATININE RATIO 8; CALCIUM 9.5 MG/DL (8.5-10.1); CARBON DIOXIDE 22 MMOL/L (21-32); CHLORIDE 105 MMOL/L (98-107); CREATININE SERUM 0.78 MG/DL (0.60-1.30); GFR ESTIMATED > 60; GLUCOSE 118 MG/DL (70-105); MAGNESIUM 2.1 MG/DL (1.6-2.4); POTASSIUM 4.3 MMOL/L (3.6-5.0); SODIUM 140 MMOL/L (135-145); TOTAL PROTEIN 8.3 GM/DL (6.4-8.2)
--- OUTSIDE RECORDS SUMMARY | 2020-02-22 15:01 | XMS REPORT | Clinical Summary ---
Author Author [facility] Organization [facility] Address Unknown Phone Unavailable Care Team Providers Care Cardiac Cath Lab Technologist Name Role Phone Diamante Bryant [employer] PCP Source Comments Some departments are not documenting in the electronic medical record. If you d o not see the information that you expected, contact Release of Information in [facility] [employer] Information Management department at [phone] for further assistan ce in locating additional records.[facility] Allergies Comments Active Allergy Reactions Severity Noted [...] Dates Group AETNA MEDICAID AETNA xxxxxxxxxxx 2019-P [facility] ([place] [place] [id number] Advance Directives Patient Territory Service Representative Explanation Type Date Recorded Advance Directive/DPOA
--- OUTSIDE RECORDS SUMMARY | 2020-02-22 15:07 | XMS REPORT ---
Author Author Jada MORRISSEY Organization [facility] Address [address] [place] [address] Care Team Providers Care Wire Photo Operator News Name Role Phone BALBIR MORRISSEY Unavailable PROBLEMS Type Condition ICD9-CM Code SCZ86-NL Code Onset Dates Condition S tatus SNOMED Code Problem Tension headache G44.209 Active 398 067345 Problem DM neuro manif type II E11.49 Active 78940801 Problem Irritable bowel syndrome with diarrhea K58.0 Active 166999879 Problem Intractable migraine without aura and without st atus migrainosus G43.019 Active 563388362 Problem Menorrhagia with irregular cycle N92.1 Active 494095856 Problem Sleep apnea in adult G47.30 Active 19603687 Problem Other chronic pain G89.29 Active 8 2666352 Problem Iron deficiency anemia due to chronic blood loss D 50.0 Active 785592857 Problem Migraine with aura and without status migrainosu s, not intractable G43.109 Active 7948069 Problem Obstructive sleep apnea syndrome G47.33 Active 47974575 Problem Seasonal allergic rhinitis due to pollen J30.1 Active 07927889 Problem Chronic tension-type headache, not intractable G44 .229 Active 886601259 Problem HTN (hypertension) I10 Active 3 7898343 Problem Allergy, food Z91.018 Active 108722 001 Problem Primary osteoarthritis of left knee M17.12 Active [id number] Problem Hyperinsulinemia E16.1 Active 834 47300 Problem Chronic venous insufficiency I87.2 A ctive 54613634 Problem Multiple allergies Z88.9 Active 6 23225795 Problem Migraine headache G43.909 Active 37 274382 Problem Localized osteoarthritis of left knee M17.12 Active 719311807 ALLERGIES No Information ENCOUNTERS Encounter Location Date Diagnosis [facility] [address] [facility] [id number] [address] [address] Feb, [facility] [address] [place] [id number] [address] [place] [address] 16 Jan, 2020 Right leg swelling M79.89 [place] [address] [place] [id number] [address] [place] [address] 15 Jan, 2020 Cellulitis of right lower le g L03.115 [place] [address] [place] [id number] [address] [place] [address] 13 Jan, 2020 [place] [address] [place] [id number] [place] [address] 08 Jan, 2020 Cellulitis of right lower ex tremity L03.115 and Itching L29.9 [place] [address] [address] 06 Jan, 2020 [place] [address] [place] [id number] [place] [address] Jan, Cutaneous abscess of right l ower limb L02.415 ; Cellulitis of right lower limb L03.115 ; Itching L29.9 ; Allergy, food Z91.018 ; Hyperinsulinemia E16.1 and Obstructive sleep apnea syndrome G47.33 [place] [address] [address] Dec, [facility] [place] [address] [address] Oct, Foreign body (FB) in soft ti ssue M79.5 [place] [address] [place] [address] Sep, HTN (hypertension) I10 [place] [address] [place] [address] Sep, Viral URI J06.9 ; Cough prod uctive of purulent sputum R05 and Exposure to influenza Z20.828 [facility] [place] [address] [place] [id number] [address] [place] [address] 14 Sep, 2019 [facility] [place] [address] [place] [id number] [address] [place] [address] 14 Sep, 2019 Flu-like symptoms R68.89 [facility] [address] [id number] [address] [place] [address] 12 Sep, 2019 Primary osteoarthritis of le ft knee M17.12 and Acute medial meniscus tear of left knee, subsequent encounter S83.242D [facility] [address] [id number] [address] [place] [address] 15 Aug, 2019 Flu-like symptoms R68.89 [facility] [address] [id number] [address] [place] [address] 03 Aug, 2019 Sore throat J02.9 [facility] [address] [id number] [address] [place] [address] Jul, [facility] [address] [id number] [address] [place] [id number] Jul, [facility] [address] [id number] [address] [place] [phone] Jul, [facility] [address] [id number] [address] [place] [address] Jul, [facility] [address] [id number] [address] [place] [phone] Jul, Segmental dysfunction of tho racic region M99.02 ; Segmental dysfunction of lumbar region M99.03 ; Segmental dysfunction of cervical region M99.01 and Chronic tension-type headache, not intractable G44.229 [facility] [address] [id number] [address] [place] [address] Jul, [facility] [address] [id number] [address] [place] [address] Jun, Localized osteoarthritis of left knee M17.12 [facility] [address] [id number] [address] [place] [address] Jun, Acute non-recurrent sinusiti s, unspecified location J01.90 [facility] [address] [place] [id number] [address] [place] [address] 04 Jun, 2019 [facility] [address] [facility] [id number] [address] [place] [address] 03 Jun, 2019 Viral upper respiratory trac t infection J06.9 [facility] [address] [facility] [id number] [address] [place] [address] Jun, [facility] [address] [place] [id number] [place] [address] May, Prediabetes R73.03 and Iron deficiency anemia due to chronic blood loss D50.0 [facility] [address] [address] May, [facility] [address] [address] May, Prediabetes R73.03 ; Left an terior knee pain M25.562 ; Encounter for immunization Z23 ; Migraine headache G43.909 ; Multiple allergies Z88.9 ; Snoring R06.83 and Iron deficiency anemia due to chronic blood loss D50.0 [facility] [address] [address] 16 May, 2019 Nonintractable headache, uns pecified chronicity pattern, unspecified headache type R51 and Sore throat J02.9 [facility] [address] [place] [id number] [address] [place] [address] 15 Apr, 2019 [facility] [address] [place] [id number] [address] [place] [address] 14 Apr, 2019 Fever, unspecified fever cau se R50.9 and Chest congestion R09.89 [facility] [address] [place] [id number] [address] [place] [address] 18 Mar, 2019 Abdominal pain R10.9 [facility] [address] [place] [id number] [address] [place] [address] 16 Mar, 2019 Chronic venous insufficiency I87.2 [facility] [address] [place] [id number] [address] Feb, [facility] [address] [id number] [address] [place] [address] Feb, [facility] [address] [facility] [id number] [address] [place] [phone] Feb, [facility] [address] [facility] [id number] [address] [place] [address] Feb, Seasonal allergic rhinitis d ue to pollen J30.1 ; Cervicalgia M54.2 ; Pain in right leg M79.604 ; Morbid obesity E66.01 and Obstructive sleep apnea syndrome G47.33 [facility] [address] [facility] [id number] [address] [place] [phone] Jan, [facility] [address] [facility] [id number] [address] [place] [address] Jan, [facility] [address] [facility] [id number] [address] [place] [address] Jan, [facility] [address] [place] [id number] [address] [place] [address] Jan, Food allergy Z91.018 [place] [address] [place] [id number] [address] [place] [address] Jan, Right ear pain H92.01 ; DM n euro manif type II E11.49 and Morbid obesity E66.01 [place] [id number] [facility] [id number] [address] [place] [address] Dec, Exercise counseling Z71.82 [facility] [address] [facility] [id number] [address] [place] [phone] Dec, [facility] [address] [facility] [id number] [address] [place] [address] Dec, Acute midline low back pain without sciatica M54.5 ; Migraine headache G43.909 ; Obstructive sleep apnea syndrome G47.33 ; Localized edema R60.0 and Morbid obesity E66.01 [facility] [place] [id number] [place] [id number] [address] [place] [address] Dec, Migraine with aura and witho ut status migrainosus, not intractable G43.109 and Morbid obesity E66.01 [place] [address] [place] [id number] [address] [place] [address] November, [place] [address] [place] [id number] [place] [address] November, [place] [address] [address] November, [place] [address] [address] November, Pain of left lower leg M79.6 62 [place] [address] [address] November, Pain of left lower leg M79.6 62 and Candidiasis B37.9 [facility] [place] [address] [address] November, Left leg pain M79.605 [place] [address] [address] November, Pain in right leg M79.604 [place] [address] [address] Oct, Left leg pain M79.605 ; Left leg swelling M79.89 and Morbid obesity E66.01 [place] [address] [place] [id number] [place] [address] Oct, Bronchitis J40 ; HTN (hypert ension) I10 and Morbid obesity E66.01 [facility] [place] [address] [place] [id number] [place] [address] Oct, Sore throat J02.9 and Morbid obesity E66.01 [place] [address] [place] [id number] [place] [address] Oct, [place] [address] [address] Oct, Allergy, food Z91.018 ; Cand idiasis B37.9 and Morbid obesity E66.01 [place] [address] [address] Sep, [place] [address] [address] Sep, Intractable migraine without aura and without status migrainosus G43.019 ; Allergic reaction to food, subsequent encounter T78.1XXD ; HTN (hypertension) I10 and Morbid obesity E66.01 [place] [address] [address] 31 Jul, 2018 [facility] [place] [address] [address] 30 Jul, 2018 Rash R21 and BMI 50.0-59.9, adult Z68.43 [place] [address] [address] 28 Jun, 2018 Hyperinsulinemia E16.1 and M enorrhagia with irregular cycle N92.1 [place] [address] [address] 20 Jun, 2018 Primary osteoarthritis of le ft knee M17.12 [facility] [place] [address] [address] 12 Jun, 2018 Sore throat J02.9 ; Acute na sopharyngitis J00 and BMI 50.0-59.9, adult Z68.43 [place] [address] [address] 05 Jun, 2018 Other chronic pain G89.29 ; Pain in left knee M25.562 ; Hyperinsulinemia E16.1 ; Menorrhagia with irregular cycle N92.1 and BMI 50.0- 59.9, adult Z68.43 [facility] [place] [address] [address] Apr, BMI 50.0-59.9, adult Z68.43 ; Dysuria R30.0 and Acute UTI N39.0 [place] [address] [address] Apr, [place] [address] [address] Apr, Encounter for immunization Z 23 [place] [address] [address] 27 Mar, 2018 Acute midline low back pain without sciatica M54.5 ; Acute pain of left knee M25.562 and BMI 50.0-59.9, adult Z68.43 [place] [address] [address] 24 Mar, 2018 Intractable migraine without aura and without status migrainosus G43.019 and BMI 50.0-59.9, adult Z68.43 [place] [address] [address] 05 Mar, 2018 Bronchitis J40 ; Allergy to food Z91.018 and BMI 50.0-59.9, adult Z68.43 [facility] [address] [address] 01 Mar, 2018 Bronchitis J40 ; Wheezing on both sides of chest R06.2 and BMI 50.0-59.9, adult Z68.43 [facility] [address] [address] Feb, Pain in right leg M79.604 [place] [address] [address] Jan, Pneumonia of left lung due t o infectious organism, unspecified part of lung J18.9 [place] [address] [place] [id number] [address] [place] [address] Dec, Pneumonia due to Mycoplasma pneumoniae, unspecified laterality, unspecified part of lung J15.7 and BMI 50.0-59.9, adult Z68.43 [place] [address] [address] Dec, [place] [address] [address] Dec, Bronchitis J40 and BMI 50.0- 59.9, adult Z68.43 [place] [address] [address] November, Bronchitis J40 ; LLQ pain R1 0.32 and BMI 50.0-59.9, adult Z68.43 [place] [address] [address] November, Iron deficiency anemia due t o chronic blood loss D50.[address] [address] November, [place] [address] [address] November, Iron deficiency anemia due t o chronic blood loss D50.0 ; DM neuro manif type II E11.49 ; Menorrhagia with irregular cycle N92.1 and BMI 50.0-59.9, adult Z68.43 [facility] [place] [address] [address] Oct, Sore throat J02.9 and Acute nasopharyngitis J00 [facility] IN [address] [address] Oct, Left leg pain M79.605 and BM I 50.0-59.9, adult Z68.43 [facility] IN [address] [address] Sep, Upper respiratory tract infe ction, unspecified type J06.9 and BMI 50.0-59.9, adult Z68.43 [place] [address] [address] Sep, Menorrhagia with irregular c ycle N92.1 ; Sleep apnea in adult G47.30 and BMI 50.0-59.9, adult Z68.43 [facility] [address] [address] Sep, [facility] [address] [address] Aug, [facility] [address] [address] Aug, [place] [address] [address] Aug, [place] [address] [address] Aug, LLQ pain R10.32 ; Irritable bowel syndrome with diarrhea K58.0 ; Change in bowel habits R19.4 ; Essential hypertension I10 and BMI 50.0-59.9, adult Z68.43 [facility] [address] [address] Aug, [facility] [address] [address] Aug, [facility] [address] [address] Aug, Essential hypertension I10 a nd BMI 50.0-59.9, adult Z68.43 [facility] [address] [address] Aug, [facility] [address] [address] Aug, [facility] [address] [address] Aug, Allergic disorder, initial e ncounter T78.40XA and BMI 50.0-59.9, adult Z68.43 [facility] [address] [address] Jul, Other atopic dermatitis L20. 89 and BMI 50.0-59.9, adult Z68.43 [facility] [address] [address] 16 Jul, 2017 Intractable migraine without aura and without status migrainosus G43.019 and BMI 50.0-59.9, adult Z68.43 [facility] [address] [address] Jun, DM neuro manif type II E11.4 9 ; Tension headache G44.209 ; Breast cancer screening Z12.31 and BMI 50.0-59.9, adult Z68.43 [place] [address] [address] Jun, Tension headache G44.209 ; B reast cancer screening Z12.31 ; BMI 50.0-59.9, adult Z68.43 and DM neuro manif type II E11.49 [facility] [address] [address] Apr, Dysuria R30.0 and Acute cyst itis with hematuria N30.01 [place] [address] [address] Apr, Hyperinsulinemia E16.1 [place] [address] [address] Mar, Acute non-recurrent maxillar y sinusitis J01.00 [place] [address] [address] Feb, Cellulitis of unspecified pa rt of limb L03.119 ; Spider bite wound, accidental or unintentional, subsequent encounter T63.301D and BMI 50.0-59.9, adult Z68.43 [place] [address] [address] Jan, [place] [address] [address] Jan, Urinary tract infection, sit e unspecified N39.0 [place] [address] [address] Jan, Acute gastritis without hemo rrhage, unspecified gastritis type K29.00 [place] [address] [address] 30 Dec, 2016 Pain in right leg M79.604 [place] [address] [address] Dec, Hyperinsulinemia E16.1 and P ain in right leg M79.604 [place] [address] [address] Dec, Angioedema, initial encounte r T78.3XXA [place] [address] [address] 15 Dec, 2016 Dental examination Z01.20 [place] [address] [address] 13 Dec, 2016 [place] [address] [address] Dec, Burning with urination R30.0 and Acute cystitis with hematuria N30.01 [place] [address] [address] Oct, [place] [address] [address] Sep, [place] [address] [address] Aug, Hyperinsulinemia E16.1 [place] [address] [address] Aug, [place] [address] [facility] [id number] [address] [place] [address] Jul, [facility] [address] [place] [id number] [place], [place] [address] Jul, Chondromalacia, left knee M9 4.262 and Acute lateral meniscus tear of left knee, initial encounter S83.282A [facility] [address] [place] [id number] [place] [address] Jul, [facility] [address] [place] [id number] [place] [address] Jun, Hyperinsulinemia E16.1 [facility] [address] [place] [id number] [place] [address] Jun, Dysuria R30.0 ; Back pain M5 4.9 ; Acute pain of left knee M25.562 and Hyperinsulinemia E16.1 [facility] [address] [place] [id number] [place] [address] Jun, Acute non-recurrent maxillar y sinusitis J01.00 [facility] [address] [place] [id number] [place] [address] Jun, Dysuria R30.0 [facility] [address] [place] [id number] [place] [address] Jun, Dysuria R30.0 [facility] [address] [place] [id number] [place] [address] Jun, [facility] [address] [facility] [id number] [address] [place] [address] May, Dysuria R30.0 and Acute cyst itis with hematuria N30.01 [facility] [address] [facility] [id number] [address] [place] [address] May, Hyperinsulinemia E16.1 [facility] [address] [place] [id number] [place] [address] May, [facility] [address] [place] [id number] [address] [place] [address] 07 May, 2016 Sore throat J02.9 [facility] [address] [address] 03 May, 2016 [facility] [address] [address] 08 Mar, 2016 Hyperinsulinemia E16.1 [facility] [address] [address] Jan, Hyperinsulinemia E16.1 [facility] [address] [address] Dec, DM neuro manif type II E11.4 9 [facility] [address] [address] November, Hyperinsulinemia E16.1 and H ypertension I10 [facility] [address] [address] Oct, [facility] [address] [address] Oct, Hyperinsulinemia E16.1 [facility] [address] [address] Oct, Pain, unspecified R52 [facility] [address] [address] 14 Oct, 2015 Pain in right foot M79.671 a nd Hyperinsulinemia E16.1 [facility] [address] [place] [id number] [place] [address] 14 Oct, 2015 Hyperinsulinemia E16.1 [facility] [address] [address] Oct, Hyperinsulinemia E16.1 [facility] [address] [address] 17 Aug, 2015 Hypertension I10 and Viral i llness B34.9 [facility] [address] [address] 18 May, 2015 Back pain M54.9 [facility] [address] [id number] [address] [place] [address], [place] [address] 14 Oct, 2014 [facility] [address] [id number] [address] [place] [address], [place] [address] 13 Oct, 2014 [facility] [address] [id number] [address] [place] [address], [place] [address] 30 Sep, 2014 [facility] [address] [id number] [address] [place] [address], [place] [address] 30 Sep, 2014 [facility] [address] [id number] [address] [place] [address], [place] [address] 17 Sep, 2014 [facility] [address] [id number] [address] [place] [address], [place] [address] Sep, [facility] [address] [id number] [address] [place] [address], [place] [address] Sep, [facility] [address] [id number] [address] [place] [address], [place] [address] Sep, [facility] [address] [id number] [address] [place] [address], [place] [address] Sep, [facility] [address] [id number] [address] [place] [address], [place] [address] Sep, [facility] [address] [id number] [address] [place] [address], [place] [address] Sep, [facility] [address] [id number] [address] [place] [address], [place] [address] Sep, [facility] [address] [id number] [address] [place] [address], [place] [address] Sep, [facility] [address] [id number] [address] [place] [address], [place] [address] Sep, [facility] [address] [id number] [address] [place] [address], [place] [address] Mar, [facility] [address] [id number] [address] [place] [address], [place] [address] Mar, [facility] [address] [id number] [address] [place] [address], [place] [address] Feb, [facility] [address] [id number] [address] [place] [address], [place] [address] Feb, [facility] [address] [id number] [address] [place] [address], [place] [address] Feb, [facility] [address] [id number] [address] [place] [address], [place] [address] Feb, [facility] [address] [id number] [address] [place] [address], [place] [address] Dec, [facility] [address] [id number] [address] [place] [address], [place] [address] Dec, [facility] [address] [id number] [address] [place] [address], [place] [address] Dec, [facility] [address] [id number] [address] [place] [address], [place] [address] Dec, [facility] [address] [id number] [address] [place] [address], [place] [address] Dec, [facility] [address] [id number] [address] [place] [address], [place] [address] Dec, [facility] [address] [id number] [address] [place] [address], [place] [address] Dec, [facility] [address] [id number] [address] [place] [address], [place] [address] Sep, [facility] [address] [id number] [address] [place] [address], [place] [address] Sep, [facility] [address] [id number] [address] [place] [address], [place] [address] Sep, [facility] [address] [id number] [address] [place] [address], [place] [address] Sep, [facility] [address] [id number] [address] [place] [address], [place] [address] Sep, [facility] [address] [id number] [address] [place] [address], [place] [address] Sep, [facility] [address] [id number] [address] [place] [address], [place] [address] Sep, [facility] [address] [id number] [address] [place] [address], [place] [address] Sep, [facility] [address] [id number] [address] [place] [address], [place] [address] Jul, [facility] [address] [id number] [address] [place] [address], [place] [address] Jul, [facility] [address] [id number] [address] [place] [address], [place] [address] Jun, [facility] [address] [id number] [address] [place] [address], [place] [address] Jun, [facility] [address] [id number] [address] [place] [address], [place] [address] May, [facility] [address] [id number] [address] [place] [address], [place] [address] May, [facility] [address] [id number] [address] [place] [address], [place] [address] May, [facility] [address] [id number] [address] [place] [address] May, [facility] [address] [id number] [address] [place] [address], [place] [address] May, [facility] [address] [id number] [address] [place] [address], [place] [address] May, [facility] [address] [id number] [address] [place] [address], [place] [address] May, [facility] [address] [id number] [address] [place] [address], [place] [address] Apr, [facility] [address] [id number] [address] [place] [address], [place] [address] Apr, [facility] [address] [id number] [address] [place] [address], [place] [address] Apr, [facility] [address] [id number] [address] [place] [address], [place] [address] Apr, [facility] [address] [id number] [address] [place] [address], [place] [address] Apr, [facility] [address] [id number] [address] [place] [address], [place] [address] Apr, [facility] [address] [id number] [address] [place] [address], [place] [address] Mar, [facility] [address] [id number] [address] [place] [address], [place] [address] Feb, [facility] [address] [id number] [address] [place] [address], [place] [address] Jan, [facility] [address] [id number] [address] [place] [address], [place] [address] Jan, [facility] [address] [id number] [address] [place] [address], [place] [address] Jan, [facility] [address] [id number] [address] [place] [address], [place] [address] Dec, [facility] [address] [id number] [address] [place] [address], [place] [address] November, [facility] [address] [id number] [address] [place] [address], [place] [address] November, [facility] [address] [id number] [address] [place] [address], [place] [address] November, [facility] [address] [id number] [address] [place] [address], [place] [address] November, [facility] [address] [id number] [address] [place] [address], [place] [address] Oct, [facility] [address] [id number] [address] [place] [address], [place] [address] Aug, [facility] [address] [id number] [address] [place] [address], [place] [address] Aug, [facility] [address] [id number] [address] [place] [address], [place] [address] Aug, [facility] [address] [id number] [address] [place] [address], [place] [address] Aug, [facility] [address] [id number] [address] [place] [address], [place] [address] Aug, [facility] [address] [id number] [address] [place] [address], [place] [address] Aug, [facility] [address] [id number] [address] [place] [address], [place] [address] Jul, [facility] [address] [id number] [address] [place] [address], [place] [address] May, [facility] [address] [id number] [address] [place] [address], [place] [address] May, [facility] [address] [id number] [address] [place] [address], [place] [address] May, [facility] [address] [id number] [address] [place] [address], [place] [address] May, [facility] [address] [id number] [address] [place] [address], [place] [address] May, [facility] [address] [id number] [address] [place] [address], [place] [address] May, [facility] [address] [id number] [address] [place] [address], [place] [address] May, [facility] [address] [id number] [address] [place] [address], [place] [address] Apr, [facility] [address] [id number] [address] [place] [address], [place] [address] Apr, [facility] [address] [id number] [address] [place] [address], [place] [address] Apr, [facility] [address] [id number] [address] [place] [address], [place] [address] Apr, [facility] [address] [id number] [address] [place] [address], [place] [address] Apr, [facility] [address] [id number] [address] [place] [address], [place] [address] Sep, [facility] [address] [id number] [address] [place] [address], [place] [address] 24 Aug, 2011 [facility] [address] [id number] [address] [place] [address], [place] [address] 16 Aug, 2011 [facility] [address] [id number] [address] [place] [address], [place] [address] Aug, [facility] [address] [id number] [address] [place] [address], [place] [address] Aug, [facility] [address] [id number] [address] [place] [address], [place] [address] Aug, [facility] [address] [id number] [address] [place] [address], [place] [address] Jul, [facility] [address] [id number] [address] [place] [address], [place] [address] Jul, [facility] [address] [id number] [address] [place] [address], [place] [address] Jul, [facility] [address] [id number] [address] [place] [address], [place] [address] Jun, [facility] [address] [id number] [address] [place] [address], [place] [address] Jun, [facility] [address] [id number] [address] [place] [address] Jun, [facility] [address] [id number] [address] [place] [address] May, [facility] [address] [facility] [id number] [address] [place] [address] Apr, [facility] [address] [id number] [address] [place] [address] Apr, [facility] [address] [facility] [id number] [address] [place] [address] Apr, [facility] [address] [facility] [id number] [address] [place] [address] Apr, IMMUNIZATIONS No Known Immunizations SOCIAL HISTORY Never Assessed REASON FOR VISIT PLAN OF CARE VITAL SIGNS Height 69 in 2012-11-07 Weight 331.51 lbs 2012-11-07 Temperature 99.3 degrees Fahrenheit 2012-11-07 Heart Rate 88 bpm 2012-11-07 Respiratory Rate 18 2012-11-07 Blood pressure systolic 140 mmHg 2012-11-07 Blood pressure diastolic 90 mmHg 2012-11-07 MEDICATIONS Unknown Medications RESULTS No Results PROCEDURES No Known procedures INSTRUCTIONS MEDICATIONS ADMINISTERED No Known Medications MEDICAL (GENERAL) HISTORY Type Description Date Medical History hypertension Medical History Sleep apnea in adult Surgical History x 3 Surgical History cholecystectomy Surgical History Chemical Stress Test, EKG, Echo 05/2016 Hospitalization History surgeries Hospitalization History UTI VC 05/2016
--- OUTSIDE RECORDS SUMMARY | 2020-02-22 15:08 | XMS REPORT ---
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 Phone CARISA KHAN Unavailable PROBLEMS Type Condition ICD9-CM Code YIH74-IP Code Onset Dates Condition S tatus SNOMED Code Problem Tension headache G44.209 Active 398 596516 Problem DM neuro manif type II E11.49 Active 52256354 Problem Irritable bowel syndrome with diarrhea K58.0 Active 147424602 Problem Intractable migraine without aura and without st atus migrainosus G43.019 Active 248376399 Problem Menorrhagia with irregular cycle N92.1 Active 230274294 Problem Sleep apnea in adult G47.30 Active 98382557 Problem Other chronic pain G89.29 Active 8 8935799 Problem Iron deficiency anemia due to chronic blood loss D 50.0 Active 711697683 Problem Migraine with aura and without status migrainosu s, not intractable G43.109 Active 4654652 Problem Obstructive sleep apnea syndrome G47.33 Active 96101410 Problem Seasonal allergic rhinitis due to pollen J30.1 Active 43996585 Problem Chronic tension-type headache, not intractable G44 .229 Active 315707429 Problem HTN (hypertension) I10 Active 3 5052161 Problem Allergy, food Z91.018 Active 006023 001 Problem Primary osteoarthritis of left knee M17.12 Active [id number] Problem Hyperinsulinemia E16.1 Active 834 87484 Problem Chronic venous insufficiency I87.2 A ctive 97943092 Problem Multiple allergies Z88.9 Active 6 52263628 Problem Migraine headache G43.909 Active 37 471500 Problem Localized osteoarthritis of left knee M17.12 Active 552921507 ALLERGIES No Information ENCOUNTERS Encounter Location Date Diagnosis [facility] [address] [facility] [id number] [address] [place] [address] Jan, Right leg swelling M79.[address] [address] 15 Jan, 2020 Cellulitis of right lower le g L03.[address] [address] Jan, [address] [address] 08 Jan, 2020 Cellulitis of right lower ex tremity L03.115 and Itching L29.[address] [address] Jan, [address] [address] Jan, Cutaneous abscess of right l ower limb L02.415 ; Cellulitis of right lower limb L03.115 ; Itching L29.9 ; Allergy, food Z91.018 ; Hyperinsulinemia E16.1 and Obstructive sleep apnea syndrome G47.[address] [address] Dec, [facility] [place] [address] [address] Oct, Foreign body (FB) in soft ti ssue M79.[address] [address] Sep, HTN (hypertension) I10 [address] [address] Sep, Viral URI J06.9 ; Cough prod uctive of purulent sputum R05 and Exposure to influenza Z20.828 [facility] [place] [address] [address] Sep, [facility] [place] [address] [address] 14 Sep, 2019 Flu-like symptoms R68.89 [place] [id number] [address] [place] [address] Sep, Primary osteoarthritis of le ft knee M17.12 and Acute medial meniscus tear of left knee, subsequent encounter S83.242D [facility] [address] [id number] [address] [place] [address] 15 Aug, 2019 Flu-like symptoms R68.89 [facility] [address] [id number] [address] [place] [address] 03 Aug, 2019 Sore throat J02.9 [facility] [address] [id number] [address] [place] [address] Jul, [facility] [address] [id number] [address] [place] [address] Jul, [facility] [address] [id number] [address] [place] [address] Jul, [facility] [address] [id number] [address] [place] [address] Jul, [facility] [address] [id number] [address] [place] [address] Jul, Segmental dysfunction of tho racic region M99.02 ; Segmental dysfunction of lumbar region M99.03 ; Segmental dysfunction of cervical region M99.01 and Chronic tension-type headache, not intractable G44.229 [facility] [address] [id number] [address] [place] [address] Jul, [facility] [address] [id number] [address] [place] [address] Jun, Localized osteoarthritis of left knee M17.12 [facility] [address] [id number] [address] [place] [address] Jun, Acute non-recurrent sinusiti s, unspecified location J01.90 [facility] [address] [id number] [address] [place] [address] Jun, [facility] [address] [place] [address] Jun, Viral upper respiratory trac t infection J06.9 [facility] [address] [place] [id number] [address] [place] [address] Jun, [place] [address] [place] [id number] [address] [place] [address] May, Prediabetes R73.03 and Iron deficiency anemia due to chronic blood loss D50.0 [facility] [address] [place] [id number] [address] [place] [address] May, [place] [address] [address] May, Prediabetes R73.03 ; Left an terior knee pain M25.562 ; Encounter for immunization Z23 ; Migraine headache G43.909 ; Multiple allergies Z88.9 ; Snoring R06.83 and Iron deficiency anemia due to chronic blood loss D50.0 [facility] [address] [place] [address] 16 May, 2019 Nonintractable headache, uns pecified chronicity pattern, unspecified headache type R51 and Sore throat J02.9 [facility] [address] [place] [id number] [address] [place] [address] 15 Apr, 2019 [place] [address] [place] [address] 14 Apr, 2019 Fever, unspecified fever cau se R50.9 and Chest congestion R09.89 [facility] [address] [place] [id number] [address] [place] [address] 18 Mar, 2019 Abdominal pain R10.9 [place] [address] [place] [id number] [address] [place] [address] 16 Mar, 2019 Chronic venous insufficiency I87.2 [place] [address] [place] [id number] [address] [place] [address] Feb, [facility] [address] [place] [id number] [address] [place] [address] Feb, [facility] [address] [facility] [id number] [address] [place] [address] Feb, [facility] [address] [facility] [id number] [address] [place] [address] Feb, Seasonal allergic rhinitis d ue to pollen J30.1 ; Cervicalgia M54.2 ; Pain in right leg M79.604 ; Morbid obesity E66.01 and Obstructive sleep apnea syndrome G47.33 [facility] [address] [facility] [id number] [address] [place] [address] Jan, [facility] [address] [facility] [id number] [address] [place] [address] Jan, [place] [address] [facility] [id number] [address] [place] [address] Jan, [place] [address] [place] [id number] [address] [place] [address] Jan, Food allergy Z91.018 [facility] [address] [facility] [id number] [address] [place] [address] Jan, Right ear pain H92.01 ; DM n euro manif type II E11.49 and Morbid obesity E66.01 [place] [id number] [address] [facility] [id number] [address] [place] [address] Dec, Exercise counseling Z71.82 [facility] [address] [facility] [id number] [address] [place] [address] Dec, [facility] [address] [facility] [id number] [address] [place] [address] Dec, Acute midline low back pain without sciatica M54.5 ; Migraine headache G43.909 ; Obstructive sleep apnea syndrome G47.33 ; Localized edema R60.0 and Morbid obesity E66.01 [facility] [address] [facility] [id number] [address] [place] [address] Dec, Migraine with aura and witho ut status migrainosus, not intractable G43.109 and Morbid obesity E66.01 [facility] [address] [facility] [id number] [address] [place] [address] November, [facility] [address] [facility] [id number] [address] [place] [address] November, [facility] [address] [place] [id number] [address] [place] [address] November, [facility] [address] [facility] [id number] [address] [place] [address] November, Pain of left lower leg M79.6 [address] [place] [address] [place] [id number] [place] [address] November, Pain of left lower leg M79.6 62 and Candidiasis B37.9 [facility] [address] [place] [id number] [address] [place] [address] November, Left leg pain M79.605 [place] [address] [place] [id number] [place] [address] November, Pain in right leg M79.604 [place] [address] [place] [id number] [place] [address] Oct, Left leg pain M79.605 ; Left leg swelling M79.89 and Morbid obesity E66.01 [facility] [address] [place] [id number] [address] [place] [address] Oct, Bronchitis J40 ; HTN (hypert ension) I10 and Morbid obesity E66.01 [facility] [address] [facility] [id number] [address] [place] [address] Oct, Sore throat J02.9 and Morbid obesity E66.01 [facility] [address] [place] [id number] [address] [place] [address] Oct, [facility] [address] [place] [id number] [address] [place] [address] Oct, Allergy, food Z91.018 ; Cand idiasis B37.9 and Morbid obesity E66.01 [place] [address] [address] Sep, [place] [address] [address] Sep, Intractable migraine without aura and without status migrainosus G43.019 ; Allergic reaction to food, subsequent encounter T78.1XXD ; HTN (hypertension) I10 and Morbid obesity E66.01 [place] [address] [address] Jul, [facility] [place] [address] [address] Jul, Rash R21 and BMI 50.0-59.9, adult Z68.43 [place] [address] [address] 28 Jun, 2018 Hyperinsulinemia E16.1 and M enorrhagia with irregular cycle N92.1 [place] [address] [address] Jun, Primary osteoarthritis of le ft knee M17.12 [facility] IN [place] [address] [address] Jun, Sore throat J02.9 ; Acute na sopharyngitis J00 and BMI 50.0-59.9, adult Z68.43 [place] [address] [address] 05 Jun, 2018 Other chronic pain G89.29 ; Pain in left knee M25.562 ; Hyperinsulinemia E16.1 ; Menorrhagia with irregular cycle N92.1 and BMI 50.0- 59.9, adult Z68.43 [facility] [place] [address] [address] Apr, BMI 50.0-59.9, adult Z68.43 ; Dysuria R30.0 and Acute UTI N39.0 [facility] [address] [address] Apr, [place] [address] [address] Apr, Encounter for immunization Z 23 [place] [address] [address] 27 Mar, 2018 Acute midline low back pain without sciatica M54.5 ; Acute pain of left knee M25.562 and BMI 50.0-59.9, adult Z68.43 [place] [address] [address] 24 Mar, 2018 Intractable migraine without aura and without status migrainosus G43.019 and BMI 50.0-59.9, adult Z68.43 [place] [address] [address] 05 Mar, 2018 Bronchitis J40 ; Allergy to food Z91.018 and BMI 50.0-59.9, adult Z68.43 [facility] [address] [address] 01 Mar, 2018 Bronchitis J40 ; Wheezing on both sides of chest R06.2 and BMI 50.0-59.9, adult Z68.43 [place] [address] [address] Feb, Pain in right leg M79.604 [place] [address] [address] Jan, Pneumonia of left lung due t o infectious organism, unspecified part of lung J18.9 [place] [address] [address] Dec, Pneumonia due to Mycoplasma pneumoniae, unspecified laterality, unspecified part of lung J15.7 and BMI 50.0-59.9, adult Z68.43 [place] [address] [address] Dec, [place] [address] [address] Dec, Bronchitis J40 and BMI 50.0- 59.9, adult Z68.43 [place] [address] [address] November, Bronchitis J40 ; LLQ pain R1 0.32 and BMI 50.0-59.9, adult Z68.43 [place] [address] [address] November, Iron deficiency anemia due t o chronic blood loss D50.0 [place] [address] [address] November, [place] [address] [address] November, Iron deficiency anemia due t o chronic blood loss D50.0 ; DM neuro manif type II E11.49 ; Menorrhagia with irregular cycle N92.1 and BMI 50.0-59.9, adult Z68.43 [facility] [place] [address] [address] Oct, Sore throat J02.9 and Acute nasopharyngitis J00 [facility] [place] [address] [address] Oct, Left leg pain M79.605 and BM I 50.0-59.9, adult Z68.43 [facility] [place] [address] [address] Sep, Upper respiratory tract infe ction, unspecified type J06.9 and BMI 50.0-59.9, adult Z68.43 [place] [address] [address] Sep, Menorrhagia with irregular c ycle N92.1 ; Sleep apnea in adult G47.30 and BMI 50.0-59.9, adult Z68.43 [facility] [address] [address] Sep, [facility] [address] [address] Aug, [facility] [address] [address] Aug, [facility] [address] [address] Aug, [facility] [address] [address] Aug, LLQ pain R10.32 ; Irritable bowel syndrome with diarrhea K58.0 ; Change in bowel habits R19.4 ; Essential hypertension I10 and BMI 50.0-59.9, adult Z68.43 [facility] [address] [address] Aug, [facility] [address] [address] Aug, [facility] [place] [address] [address] Aug, Essential hypertension I10 a nd BMI 50.0-59.9, adult Z68.43 [facility] [address] [address] Aug, [facility] [address] [address] Aug, [facility] [address] [address] 02 Aug, 2017 Allergic disorder, initial e ncounter T78.40XA and BMI 50.0-59.9, adult Z68.43 [facility] [address] [place] [id number] [address] [place] [address] Jul, Other atopic dermatitis L20. 89 and BMI 50.0-59.9, adult Z68.43 [facility] [address] [address] Jul, Intractable migraine without aura and without status migrainosus G43.019 and BMI 50.0-59.9, adult Z68.43 [facility] [address] [address] Jun, DM neuro manif type II E11.4 9 ; Tension headache G44.209 ; Breast cancer screening Z12.31 and BMI 50.0-59.9, adult Z68.43 [place] [address] [address] Jun, Tension headache G44.209 ; B reast cancer screening Z12.31 ; BMI 50.0-59.9, adult Z68.43 and DM neuro manif type II E11.49 [facility] [address] [address] Apr, Dysuria R30.0 and Acute cyst itis with hematuria N30.01 [place] [address] [address] Apr, Hyperinsulinemia E16.1 [place] [address] [address] Mar, Acute non-recurrent maxillar y sinusitis J01.00 [place] [address] [address] Feb, Cellulitis of unspecified pa rt of limb L03.119 ; Spider bite wound, accidental or unintentional, subsequent encounter T63.301D and BMI 50.0-59.9, adult Z68.43 [facility] [address] [place] [id number] [address] [place] [address] Jan, [place] [address] [address] Jan, Urinary tract infection, sit e unspecified N39.0 [place] [address] [address] Jan, Acute gastritis without hemo rrhage, unspecified gastritis type K29.00 [place] [address] [address] Dec, Pain in right leg M79.604 [place] [address] [address] Dec, Hyperinsulinemia E16.1 and P ain in right leg M79.604 [place] [address] [address] Dec, Angioedema, initial encounte r T78.3XXA [place] [address] [address] Dec, Dental examination Z01.20 [place] [address] [address] Dec, [place] [address] [address] Dec, Burning with urination R30.0 and Acute cystitis with hematuria N30.01 [place] [address] [address] Oct, [place] [address] [address] Sep, [place] [address] [address] Aug, Hyperinsulinemia E16.1 [place] [address] [address] Aug, [place] [address] [address] Jul, [facility] [address] [id number] [address] [place] [address] Jul, Chondromalacia, left knee M9 4.262 and Acute lateral meniscus tear of left knee, initial encounter S83.282A [facility] [address] [id number] [address] [place] [address] Jul, [facility] [address] [facility] [id number] [address] [place] [address] Jun, Hyperinsulinemia E16.1 [facility] [address] [facility] [id number] [address] [place] [address] Jun, Dysuria R30.0 ; Back pain M5 4.9 ; Acute pain of left knee M25.562 and Hyperinsulinemia E16.1 [facility] [address] [facility] [id number] [address] [place] [address] Jun, Acute non-recurrent maxillar y sinusitis J01.00 [facility] [address] [facility] [id number] [address] [place] [address] Jun, Dysuria R30.0 [facility] [address] [facility] [id number] [address] [place] [address] Jun, Dysuria R30.0 [facility] [address] [facility] [id number] [address] [place] [address] Jun, [facility] [address] [facility] [id number] [address] [place] [address] May, Dysuria R30.0 and Acute cyst itis with hematuria N30.01 [facility] [address] [id number] [address] [place] [address] May, Hyperinsulinemia E16.1 [facility] [address] [facility] [id number] [address] [place] [address] May, [facility] [address] [facility] [id number] [address] [place] [address] May, Sore throat J02.9 [place] [address] [id number] [address] [place] [address] 03 May, 2016 [facility] [address] [facility] [id number] [address] [place] [address] 08 Mar, 2016 Hyperinsulinemia E16.1 [facility] [address] [facility] [id number] [address] [place] [address] Jan, Hyperinsulinemia E16.1 [facility] [address] [facility] [id number] [address] [place] [address] Dec, DM neuro manif type II E11.4 9 [facility] [address] [facility] [id number] [address] [place] [address] November, Hyperinsulinemia E16.1 and H ypertension I10 [facility] [address] [facility] [id number] [address] [place] [address] Oct, [facility] [address] [facility] [id number] [address] [place] [address] Oct, Hyperinsulinemia E16.1 [facility] [address] [facility] [id number] [address] [place] [address] Oct, Pain, unspecified R52 [facility] [address] [facility] [id number] [address] [place] [address] Oct, Pain in right foot M79.671 a nd Hyperinsulinemia E16.1 [facility] [address] [facility] [id number] [address] [place] [address] 14 Oct, 2015 Hyperinsulinemia E16.1 [facility] [address] [facility] [id number] [address] [place] [phone] Oct, Hyperinsulinemia E16.1 [facility] [address] [facility] [id number] [address] [place] [id number] 17 Aug, 2015 Hypertension I10 and Viral i llness B34.9 [facility] [address] [facility] [id number] [address] [place] [id number] 18 May, 2015 Back pain M54.9 [facility] [address] [id number] [address] [place] [address], [place] [address] 14 Oct, 2014 [facility] [address] [id number] [address] [place] [address], [place] [address] 13 Oct, 2014 [facility] [address] [id number] [address] [place] [address], [place] [address] 30 Sep, 2014 [facility] [address] [id number] [address] [place] [address], [place] [address] 30 Sep, 2014 [facility] [address] [id number] [address] [place] [address], [place] [address] 17 Sep, 2014 [facility] [address] [id number] [address] [place] [address], [place] [address] 17 Sep, 2014 [facility] [address] [id number] [address] [place] [address], [place] [address] Sep, [facility] [address] [id number] [address] [place] [address], [place] [address] Sep, 2014 [facility] [address] [id number] [address] [place] [address], [place] [address] Sep, [facility] [address] [id number] [address] [place] [address], [place] [address] Sep, [facility] [address] [id number] [address] [place] [address], [place] [address] Sep, [facility] [address] [id number] [address] [place] [address], [place] [address] Sep, 2014 [facility] [facility] [address] [id number] [address] [place] [address], [place] [address] Sep, 2014 [facility] [address] [id number] [address] [place] [address], [place] [address] Sep, 2014 [facility] [address] [id number] [address] [place] [address], [place] [address] Mar, [facility] [address] [id number] [address] [place] [address], [place] [address] Mar, [facility] [address] [id number] [facility] [place] [address] Feb, [facility] [address] [id number] [facility] [place] [address] Feb, [facility] [address] [id number] [address] [place] [address], [place] [address] Feb, [facility] [address] [id number] [address] [place] [address], [place] [address] Feb, [facility] [address] [id number] [address] [place] [address], [place] [address] Dec, [facility] [address] [id number] [address] [place] [address], [place] [address] Dec, [facility] [address] [id number] [address] [place] [address], [place] [address] Dec, [facility] [address] [id number] [address] [place] [address], [place] [address] Dec, [facility] [address] [id number] [address] [place] [address], [place] [address] Dec, [facility] [address] [id number] [address] [place] [address], [place] [address] Dec, [facility] [address] [id number] [address] [place] [address], [place] [address] Dec, [facility] [address] [id number] [address] [place] [address], [place] [address] Sep, [facility] [address] [id number] [address] [place] [address], [place] [address] Sep, [facility] [address] [id number] [address] [place] [address], [place] [address] Sep, [facility] [address] [id number] [address] [place] [address], [place] [address] Sep, [facility] [address] [id number] [address] [place] [address], [place] [address] Sep, [facility] [address] [id number] [address] [place] [address], [place] [address] Sep, [facility] [address] [id number] [address] [place] [address], [place] [address] Sep, [facility] [address] [id number] [address] [place] [address], [place] [address] Sep, [facility] [address] [id number] [address] [place] [address], [place] [address] Jul, [facility] [address] [id number] [address] [place] [address], [place] [address] Jul, [facility] [address] [id number] [address] [place] [address], [place] [address] Jun, [facility] [address] [id number] [address] [place] [address], [place] [address] Jun, [facility] [address] [id number] [address] [place] [address], [place] [address] May, [facility] [address] [id number] [address] [place] [address], [place] [address] May, [facility] [address] [id number] [address] [place] [address], [place] [address] May, [facility] [address] [id number] [address] [place] [address], [place] [address] May, [facility] [address] [id number] [address] [place] [address], [place] [address] May, [facility] [address] [id number] [address] [place] [address], [place] [address] May, [facility] [address] [id number] [address] [place] [address], [place] [address] 05 May, 2013 [facility] [address] [id number] [address] [place] [address], [place] [address] Apr, [facility] [address] [id number] [address] [place] [address], [place] [address] Apr, [facility] [address] [id number] [address] [place] [address], [place] [address] Apr, [facility] [address] [id number] [address] [place] [address], [place] [address] Apr, [facility] [address] [id number] [address] [place] [address], [place] [address] Apr, [facility] [address] [id number] [address] [place] [address], [place] [address] Apr, [facility] [address] [id number] [address] [place] [address], [place] [address] Mar, [facility] [address] [id number] [address] [place] [address], [place] [address] Feb, [facility] [address] [id number] [address] [place] [address], [place] [address] Jan, [facility] [address] [id number] [address] [place] [address], [place] [address] Jan, [facility] [address] [id number] [address] [place] [address], [place] [address] Jan, [facility] [address] [id number] [address] [place] [address], [place] [address] Dec, [facility] [address] [id number] [address] [place] [address], [place] [address] November, [facility] [address] [id number] [address] [place] [address], [place] [address] November, [facility] [address] [id number] [address] [place] [address], [place] [address] November, [facility] [address] [id number] [address] [place] [address], [place] [address] November, [facility] [address] [id number] [address] [place] [address], [place] [address] Oct, [facility] [address] [id number] [address] [place] [address], [place] [address] Aug, [facility] [address] [id number] [address] [place] [address], [place] [address] Aug, [facility] [address] [id number] [address] [place] [address], [place] [address] Aug, [facility] [address] [id number] [address] [place] [address], [place] [address] Aug, [facility] [address] [id number] [address] [place] [address], [place] [address] Aug, [facility] [address] [id number] [address] [place] [address], [place] [address] Aug, [facility] [address] [id number] [address] [place] [address], [place] [address] Jul, [facility] [address] [id number] [address] [place] [address], [place] [address] May, [facility] [address] [id number] [address] [place] [address], [place] [address] May, [facility] [address] [id number] [address] [place] [address], [place] [address] May, [facility] [address] [id number] [address] [place] [address], [place] [address] May, [facility] [address] [id number] [address] [place] [address] May, [facility] [address] [id number] [address] [place] [address], [place] [address] May, [facility] [address] [id number] [address] [place] [address], [place] [address] May, [facility] [address] [id number] [address] [place] [address], [place] [address] Apr, [facility] [address] [id number] [address] [place] [address], [place] [address] 30 Apr, 2012 [facility] [address] [id number] [address] [place] [address], [place] [address] Apr, [facility] [address] [id number] [address] [place] [address], [place] [address] Apr, [facility] [address] [id number] [address] [place] [address], [place] [address] Apr, [facility] [address] [id number] [address] [place] [address], [place] [address] Sep, [facility] [address] [id number] [address] [place] [address], [place] [address] 24 Aug, 2011 [facility] [address] [id number] [address] [place] [address], [place] [address] 16 Aug, 2011 [facility] [address] [id number] [address] [place] [address], [place] [address] Aug, [facility] [address] [id number] [address] [place] [address], [place] [address] Aug, [facility] [address] [id number] [address] [place] [address], [place] [address] Aug, [facility] [address] [id number] [address] [place] [address], [place] [address] Jul, [facility] [address] [id number] [address] [place] [address], [place] [address] Jul, [facility] [address] [id number] [address] [place] [address], [place] [address] Jul, [facility] [address] [id number] [address] [place] [address], [place] [address] Jun, [facility] [address] [id number] [address] [place] [address], [place] [address] Jun, [facility] [address] [id number] [address] [place] [address] Jun, [facility] [address] [facility] [id number] [address] [place] [address] May, [facility] [address] [facility] [id number] [address] [place] [address] Apr, [facility] [address] [facility] [id number] [address] [place] [address] Apr, [facility] [address] [facility] [id number] [address] [place] [address] Apr, [facility] [address] [facility] [id number] [address] [place] [address] Apr, IMMUNIZATIONS No Known Immunizations SOCIAL HISTORY [...]
--- OUTSIDE RECORDS SUMMARY | 2020-02-22 15:08 | XMS REPORT ---
Author Author Jada KHAN Organization [facility] Address [address] [place] [address] Care Team Providers Care Cytometry Technologist Name Role Phone CARISA KHAN Unavailable PROBLEMS Type Condition ICD9-CM Code EIQ56-ID Code Onset Dates Condition S tatus SNOMED Code Problem Tension headache G44.209 Active 398 350077 Problem DM neuro manif type II E11.49 Active 83849339 Problem Irritable bowel syndrome with diarrhea K58.0 Active 781742229 Problem Intractable migraine without aura and without st atus migrainosus G43.019 Active 511539353 Problem Menorrhagia with irregular cycle N92.1 Active 798283931 Problem Sleep apnea in adult G47.30 Active 36189668 Problem Other chronic pain G89.29 Active 8 9770853 Problem Iron deficiency anemia due to chronic blood loss D 50.0 Active 307032463 Problem Migraine with aura and without status migrainosu s, not intractable G43.109 Active 5307003 Problem Obstructive sleep apnea syndrome G47.33 Active 81669889 Problem Seasonal allergic rhinitis due to pollen J30.1 Active 66059514 Problem Chronic tension-type headache, not intractable G44 .229 Active 115401321 Problem HTN (hypertension) I10 Active 3 6637858 Problem Allergy, food Z91.018 Active 245096 001 Problem Primary osteoarthritis of left knee M17.12 Active [id number] Problem Hyperinsulinemia E16.1 Active 834 85473 Problem Chronic venous insufficiency I87.2 A ctive 95419026 Problem Multiple allergies Z88.9 Active 6 38110909 Problem Migraine headache G43.909 Active 37 396457 Problem Localized osteoarthritis of left knee M17.12 Active 380855020 ALLERGIES No Information ENCOUNTERS Encounter Location Date Diagnosis [facility] [address] [facility] [id number] [address] [place] [address] Jan, Right leg swelling M79.[address] [address] 15 Jan, 2020 Cellulitis of right lower le g L03.[address] [address] Jan, [address] [address] 08 Jan, 2020 Cellulitis of right lower ex tremity L03.115 and Itching L29.[address] [address] Jan, [address] [address] Jan, Cutaneous abscess of right l ower limb L02.415 ; Cellulitis of right lower limb L03.115 ; Itching L29.9 ; Allergy, food Z91.018 ; Hyperinsulinemia E16.1 and Obstructive sleep apnea syndrome G47.[address] [address] Dec, [facility] [place] [address] [address] Oct, Foreign body (FB) in soft ti ssue M79.[address] [address] Sep, HTN (hypertension) I10 [address] [address] Sep, Viral URI J06.9 ; Cough prod uctive of purulent sputum R05 and Exposure to influenza Z20.828 [facility] [place] [address] [address] Sep, [facility] [place] [address] [address] 14 Sep, 2019 Flu-like symptoms R68.89 [place] [id number] [address] [place] [address] Sep, Primary osteoarthritis of le ft knee M17.12 and Acute medial meniscus tear of left knee, subsequent encounter S83.242D [facility] [address] [id number] [address] [place] [address] 15 Aug, 2019 Flu-like symptoms R68.89 [facility] [address] [id number] [address] [place] [address] 03 Aug, 2019 Sore throat J02.9 [facility] [address] [id number] [address] [place] [address] Jul, [facility] [address] [id number] [address] [place] [address] Jul, [facility] [address] [id number] [address] [place] [address] Jul, [facility] [address] [id number] [address] [place] [address] Jul, [facility] [address] [id number] [address] [place] [address] Jul, Segmental dysfunction of tho racic region M99.02 ; Segmental dysfunction of lumbar region M99.03 ; Segmental dysfunction of cervical region M99.01 and Chronic tension-type headache, not intractable G44.229 [facility] [address] [id number] [address] [place] [place] [address] Jul, [facility] [address] [id number] [address] [place] [id number] Jun, Localized osteoarthritis of left knee M17.12 [facility]ALK IN [facility] [address] [id number] [address] [place] [phone] Jun, Acute non-recurrent sinusiti s, unspecified location J01.90 [facility] [address] [id number] [address] [place] [address] Jun, [facility] [address] [place] [address] Jun, Viral upper respiratory trac t infection J06.9 [facility] [address] [place] [id number] [address] [place] [address] Jun, [place] [address] [place] [id number] [address] [place] [address] May, Prediabetes R73.03 and Iron deficiency anemia due to chronic blood loss D50.0 [facility] [address] [place] [id number] [address] [place] [address] May, [place] [address] [address] May, Prediabetes R73.03 ; Left an terior knee pain M25.562 ; Encounter for immunization Z23 ; Migraine headache G43.909 ; Multiple allergies Z88.9 ; Snoring R06.83 and Iron deficiency anemia due to chronic blood loss D50.0 [facility] [address] [place] [address] 16 May, 2019 Nonintractable headache, uns pecified chronicity pattern, unspecified headache type R51 and Sore throat J02.9 [facility] [address] [place] [id number] [address] [place] [place] [address] 15 Apr, 2019 [place] [address] [place] [address] 14 Apr, 2019 Fever, unspecified fever cau se R50.9 and Chest congestion R09.89 [facility] [address] [place] [id number] [address] [place] [address] 18 Mar, 2019 Abdominal pain R10.9 [place] [address] [place] [id number] [address] [place] [place] [address] 16 Mar, 2019 Chronic venous insufficiency I87.2 [place] [address] [place] [id number] [address] [place] [phone] Feb, [facility] [address] [place] [id number] [address] [place] [address] Feb, [facility] [address] [facility] [id number] [address] [place] [phone] Feb, [facility] [address] [facility] [id number] [address] [place] [address] Feb, Seasonal allergic rhinitis d ue to pollen J30.1 ; Cervicalgia M54.2 ; Pain in right leg M79.604 ; Morbid obesity E66.01 and Obstructive sleep apnea syndrome G47.33 [facility] [address] [facility] [id number] [address] [place] [address] Jan, [facility] [address] [facility] [id number] [address] [place] [phone] Jan, [place] [address] [facility] [id number] [address] [place] [address] Jan, [place] [address] [place] [id number] [address] [place] [address] Jan, Food allergy Z91.018 [facility] [address] [facility] [id number] [address] [place] [phone] Jan, Right ear pain H92.01 ; DM n euro manif type II E11.49 and Morbid obesity E66.01 [place] [id number] [facility] [id number] [address] [place] [address] Dec, Exercise counseling Z71.82 [facility] [address] [facility] [id number] [address] [place] [id number] Dec, [facility] [address] [facility] [id number] [address] [place] [address] Dec, Acute midline low back pain without sciatica M54.5 ; Migraine headache G43.909 ; Obstructive sleep apnea syndrome G47.33 ; Localized edema R60.0 and Morbid obesity E66.01 [facility] IN [facility] [address] [facility] [id number] [address] [place] [address] Dec, Migraine with aura and witho ut status migrainosus, not intractable G43.109 and Morbid obesity E66.01 [facility] [address] [facility] [id number] [address] [place] [address] November, [facility] [address] [facility] [id number] [address] [place] [address] November, [facility] [address] [place] [id number] [address] [place] [address] November, [facility] [address] [facility] [id number] [address] [place] [address] November, Pain of left lower leg M79.6 [address] [place] [address] [place] [id number] [place] [address] November, Pain of left lower leg M79.6 62 and Candidiasis B37.9 [facility] [address] [place] [id number] [address] [place] [address] November, Left leg pain M79.605 [place] [address] [place] [id number] [place] [address] November, Pain in right leg M79.604 [place] [address] [place] [id number] [place] [address] Oct, Left leg pain M79.605 ; Left leg swelling M79.89 and Morbid obesity E66.01 [facility] [address] [place] [id number] [address] [place] [address] Oct, Bronchitis J40 ; HTN (hypert ension) I10 and Morbid obesity E66.01 [facility] [address] [facility] [id number] [address] [place] [address] Oct, Sore throat J02.9 and Morbid obesity E66.01 [facility] [address] [place] [id number] [address] [place] [place] [address] Oct, [facility] [address] [place] [id number] [address] [place] [address] Oct, Allergy, food Z91.018 ; Cand idiasis B37.9 and Morbid obesity E66.01 [place] [address] [address] Sep, [place] [address] [address] Sep, Intractable migraine without aura and without status migrainosus G43.019 ; Allergic reaction to food, subsequent encounter T78.1XXD ; HTN (hypertension) I10 and Morbid obesity E66.01 [place] [address] [address] Jul, [facility] IN [place] [address] [address] Jul, Rash R21 and BMI 50.0-59.9, adult Z68.43 [place] [address] [address] 28 Jun, 2018 Hyperinsulinemia E16.1 and M enorrhagia with irregular cycle N92.1 [place] [address] [address] Jun, Primary osteoarthritis of le ft knee M17.12 [facility] IN [place] [address] [address] Jun, Sore throat J02.9 ; Acute na sopharyngitis J00 and BMI 50.0-59.9, adult Z68.43 [place] [address] [address] 05 Jun, 2018 Other chronic pain G89.29 ; Pain in left knee M25.562 ; Hyperinsulinemia E16.1 ; Menorrhagia with irregular cycle N92.1 and BMI 50.0- 59.9, adult Z68.43 [facility] [place] [address] [address] Apr, BMI 50.0-59.9, adult Z68.43 ; Dysuria R30.0 and Acute UTI N39.0 [facility] [address] [address] Apr, [place] [address] [address] Apr, Encounter for immunization Z 23 [place] [address] [address] 27 Mar, 2018 Acute midline low back pain without sciatica M54.5 ; Acute pain of left knee M25.562 and BMI 50.0-59.9, adult Z68.43 [place] [address] [address] 24 Mar, 2018 Intractable migraine without aura and without status migrainosus G43.019 and BMI 50.0-59.9, adult Z68.43 [place] [address] [address] 05 Mar, 2018 Bronchitis J40 ; Allergy to food Z91.018 and BMI 50.0-59.9, adult Z68.43 [facility] [address] [address] 01 Mar, 2018 Bronchitis J40 ; Wheezing on both sides of chest R06.2 and BMI 50.0-59.9, adult Z68.43 [place] [address] [address] Feb, Pain in right leg M79.604 [place] [address] [address] Jan, Pneumonia of left lung due t o infectious organism, unspecified part of lung J18.9 [place] [address] [address] Dec, Pneumonia due to Mycoplasma pneumoniae, unspecified laterality, unspecified part of lung J15.7 and BMI 50.0-59.9, adult Z68.43 [place] [address] [address] Dec, [place] [address] [address] Dec, Bronchitis J40 and BMI 50.0- 59.9, adult Z68.43 [place] [address] [address] November, Bronchitis J40 ; LLQ pain R1 0.32 and BMI 50.0-59.9, adult Z68.43 [place] [address] [address] November, Iron deficiency anemia due t o chronic blood loss D50.0 [place] [address] [address] November, [place] [address] [address] November, Iron deficiency anemia due t o chronic blood loss D50.0 ; DM neuro manif type II E11.49 ; Menorrhagia with irregular cycle N92.1 and BMI 50.0-59.9, adult Z68.43 [facility] IN [place] [address] [address] Oct, Sore throat J02.9 and Acute nasopharyngitis J00 [facility] IN [place] [address] [address] Oct, Left leg pain M79.605 and BM I 50.0-59.9, adult Z68.43 [facility] [place] [address] [address] Sep, Upper respiratory tract infe ction, unspecified type J06.9 and BMI 50.0-59.9, adult Z68.43 [place] [address] [address] Sep, Menorrhagia with irregular c ycle N92.1 ; Sleep apnea in adult G47.30 and BMI 50.0-59.9, adult Z68.43 [facility] [address] [address] Sep, [facility] [address] [address] Aug, [facility] [address] [address] Aug, [facility] [address] [address] Aug, [facility] [address] [address] Aug, LLQ pain R10.32 ; Irritable bowel syndrome with diarrhea K58.0 ; Change in bowel habits R19.4 ; Essential hypertension I10 and BMI 50.0-59.9, adult Z68.43 [facility] [address] [address] Aug, [facility] [address] [address] Aug, [facility] [place] [address] [address] Aug, Essential hypertension I10 a nd BMI 50.0-59.9, adult Z68.43 [facility] [address] [address] Aug, [facility] [address] [address] Aug, [facility]ALK IN [facility] [address] [address] 02 Aug, 2017 Allergic disorder, initial e ncounter T78.40XA and BMI 50.0-59.9, adult Z68.43 [facility] [address] [place] [id number] [address] [place] [address] Jul, Other atopic dermatitis L20. 89 and BMI 50.0-59.9, adult Z68.43 [facility] [address] [address] Jul, Intractable migraine without aura and without status migrainosus G43.019 and BMI 50.0-59.9, adult Z68.43 [facility] [address] [address] Jun, DM neuro manif type II E11.4 9 ; Tension headache G44.209 ; Breast cancer screening Z12.31 and BMI 50.0-59.9, adult Z68.43 [place] [address] [address] Jun, Tension headache G44.209 ; B reast cancer screening Z12.31 ; BMI 50.0-59.9, adult Z68.43 and DM neuro manif type II E11.49 [facility] [address] [address] Apr, Dysuria R30.0 and Acute cyst itis with hematuria N30.01 [place] [address] [address] Apr, Hyperinsulinemia E16.1 [place] [address] [address] Mar, Acute non-recurrent maxillar y sinusitis J01.00 [place] [address] [address] Feb, Cellulitis of unspecified pa rt of limb L03.119 ; Spider bite wound, accidental or unintentional, subsequent encounter T63.301D and BMI 50.0-59.9, adult Z68.43 [facility] [address] [place] [id number] [address] [place] [address] Jan, [place] [address] [address] Jan, Urinary tract infection, sit e unspecified N39.0 [place] [address] [address] Jan, Acute gastritis without hemo rrhage, unspecified gastritis type K29.00 [place] [address] [address] Dec, Pain in right leg M79.604 [place] [address] [address] Dec, Hyperinsulinemia E16.1 and P ain in right leg M79.604 [place] [address] [address] Dec, Angioedema, initial encounte r T78.3XXA [place] [address] [address] Dec, Dental examination Z01.20 [place] [address] [address] Dec, [place] [address] [address] Dec, Burning with urination R30.0 and Acute cystitis with hematuria N30.01 [place] [address] [address] Oct, [place] [address] [address] Sep, [place] [address] [address] Aug, Hyperinsulinemia E16.1 [place] [address] [address] Aug, [place] [address] [address] Jul, [facility] [address] [id number] [address] [place] [address] Jul, Chondromalacia, left knee M9 4.262 and Acute lateral meniscus tear of left knee, initial encounter S83.282A [facility] [address] [id number] [address] [place] [address] Jul, [facility] [address] [facility] [id number] [address] [place] [address] Jun, Hyperinsulinemia E16.1 [facility] [address] [facility] [id number] [address] [place] [address] Jun, Dysuria R30.0 ; Back pain M5 4.9 ; Acute pain of left knee M25.562 and Hyperinsulinemia E16.1 [facility] [address] [facility] [id number] [address] [place] [address] Jun, Acute non-recurrent maxillar y sinusitis J01.00 [facility] [address] [facility] [id number] [address] [place] [address] Jun, Dysuria R30.0 [facility] [address] [facility] [id number] [address] [place] [address] Jun, Dysuria R30.0 [facility] [address] [facility] [id number] [address] [place] [address] Jun, [facility] [address] [facility] [id number] [address] [place] [address] May, Dysuria R30.0 and Acute cyst itis with hematuria N30.01 [facility] [address] [id number] [address] [place] [address] May, Hyperinsulinemia E16.1 [facility] [address] [facility] [id number] [address] [place] [address] May, [facility] [address] [facility] [id number] [address] [place] [address] May, Sore throat J02.9 [place] [id number] [id number] [address] [place] [address] 03 May, 2016 [facility] [address] [facility] [id number] [address] [place] [phone] 08 Mar, 2016 Hyperinsulinemia E16.1 [facility] [address] [facility] [id number] [address] [place] [address] Jan, Hyperinsulinemia E16.1 [facility] [address] [facility] [id number] [address] [place] [phone] Dec, DM neuro manif type II E11.4 9 [facility] [address] [facility] [id number] [address] [place] [address] November, Hyperinsulinemia E16.1 and H ypertension I10 [facility] [address] [facility] [id number] [address] [place] [address] Oct, [facility] [address] [facility] [id number] [address] [place] [address] Oct, Hyperinsulinemia E16.1 [facility] [address] [facility] [id number] [address] [place] [address] Oct, Pain, unspecified R52 [facility] [address] [facility] [id number] [address] [place] [address] Oct, Pain in right foot M79.671 a nd Hyperinsulinemia E16.1 [facility] [address] [facility] [id number] [address] [place] [id number] 14 Oct, 2015 Hyperinsulinemia E16.1 [facility] [address] [facility] [id number] [address] [place] [id number] Oct, Hyperinsulinemia E16.1 [facility] [address] [facility] [id number] [address] [place] [id number] 17 Aug, 2015 Hypertension I10 and Viral i llness B34.9 [facility] [address] [facility] [id number] [address] [place] [id number] 18 May, 2015 Back pain M54.9 [facility] [address] [id number] [address] [place] [address], [place] [id number] 14 Oct, 2014 [facility] [address] [id number] [address] [place] [address], [place] [id number] 13 Oct, 2014 [facility] [address] [id number] [address] [place] [address], [place] [id number] 30 Sep, 2014 [facility] [address] [id number] [address] [place] [address], [place] [id number] 30 Sep, 2014 [facility] [address] [id number] [address] [place] [address], [place] [id number] 17 Sep, 2014 [facility] [address] [id number] [address] [place] [address], [place] [id number] 17 Sep, 2014 [facility] [address] [id number] [address] [place] [address], [place] [id number] Sep, [facility] [address] [id number] [address] [place] [address], [place] [id number] Sep, 2014 [facility] [address] [id number] [address] [place] [address], [place] [id number] Sep, [facility] [address] [id number] [address] [place] [address], [place] [id number] Sep, [facility] [address] [id number] [address] [place] [address], [place] [id number] Sep, [facility] [facility] [address] [id number] [address] [place] [address], [place] [address] Sep, 2014 [facility] [address] [id number] [address] [place] [address], [place] [address] Sep, 2014 [facility] [address] [id number] [address] [place] [address], [place] [address] Sep, 2014 [facility] [address] [id number] [address] [place] [address], [place] [address] Mar, [facility] [address] [id number] [address] [place] [address], [place] [address] Mar, [facility] [address] [id number] [facility] [place] [address] Feb, [facility] [address] [id number] [facility] [place] [address] Feb, [facility] [address] [id number] [address] [place] [address], [place] [address] Feb, [facility] [address] [id number] [address] [place] [address], [place] [address] Feb, [facility] [address] [id number] [address] [place] [address], [place] [address] Dec, [facility] [address] [id number] [address] [place] [address], [place] [address] Dec, [facility] [address] [id number] [address] [place] [address], [place] [address] Dec, [facility] [address] [id number] [address] [place] [address], [place] [address] Dec, [facility] [address] [id number] [address] [place] [address], [place] [address] Dec, [facility] [address] [id number] [address] [place] [address], [place] [address] Dec, [facility] [address] [id number] [address] [place] [address], [place] [address] Dec, [facility] [address] [id number] [address] [place] [address], [place] [address] Sep, [facility] [address] [id number] [address] [place] [address], [place] [address] Sep, [facility] [address] [id number] [address] [place] [address], [place] [address] Sep, [facility] [address] [id number] [address] [place] [address], [place] [address] Sep, [facility] [address] [id number] [address] [place] [address], [place] [address] Sep, [facility] [address] [id number] [address] [place] [address], [place] [address] Sep, [facility] [address] [id number] [address] [place] [address], [place] [address] Sep, [facility] [address] [id number] [address] [place] [address], [place] [address] Sep, [facility] [address] [id number] [address] [place] [address], [place] [address] Jul, [facility] [address] [id number] [address] [place] [address], [place] [address] Jul, [facility] [address] [id number] [address] [place] [address], [place] [address] Jun, [facility] [address] [id number] [address] [place] [address], [place] [address] Jun, [facility] [address] [id number] [address] [place] [address], [place] [address] May, [facility] [address] [id number] [address] [place] [address], [place] [address] May, [facility] [address] [id number] [address] [place] [address], [place] [address] May, [facility] [address] [id number] [address] [place] [address], [place] [address] May, [facility] [address] [id number] [address] [place] [address], [place] [address] May, [facility] [address] [id number] [address] [place] [address], [place] [address] May, [facility] [address] [id number] [address] [place] [address], [place] [address] 05 May, 2013 [facility] [address] [id number] [address] [place] [address], [place] [address] Apr, [facility] [address] [id number] [address] [place] [address], [place] [address] Apr, [facility] [address] [id number] [address] [place] [address], [place] [address] Apr, [facility] [address] [id number] [address] [place] [address], [place] [address] Apr, [facility] [address] [id number] [address] [place] [address], [place] [address] Apr, [facility] [address] [id number] [address] [place] [address], [place] [address] Apr, [facility] [address] [id number] [address] [place] [address], [place] [address] Mar, [facility] [address] [id number] [address] [place] [address], [place] [address] Feb, [facility] [address] [id number] [address] [place] [address], [place] [address] Jan, [facility] [address] [id number] [address] [place] [address], [place] [address] Jan, [facility] [address] [id number] [address] [place] [address], [place] [address] Jan, [facility] [address] [id number] [address] [place] [address], [place] [address] Dec, [facility] [address] [id number] [address] [place] [address], [place] [address] November, [facility] [address] [id number] [address] [place] [address], [place] [address] November, [facility] [address] [id number] [address] [place] [address], [place] [address] November, [facility] [address] [id number] [address] [place] [address], [place] [address] November, [facility] [address] [id number] [address] [place] [address], [place] [address] Oct, [facility] [address] [id number] [address] [place] [address], [place] [address] Aug, [facility] [address] [id number] [address] [place] [address], [place] [address] Aug, [facility] [address] [id number] [address] [place] [address], [place] [address] Aug, [facility] [address] [id number] [address] [place] [address], [place] [address] Aug, [facility] [address] [id number] [address] [place] [address], [place] [address] Aug, [facility] [address] [id number] [address] [place] [address], [place] [address] Aug, [facility] [address] [id number] [address] [place] [address], [place] [address] Jul, [facility] [address] [id number] [address] [place] [address], [place] [address] May, [facility] [address] [id number] [address] [place] [address], [place] [address] May, [facility] [address] [id number] [address] [place] [address], [place] [address] May, [facility] [address] [id number] [address] [place] [address], [place] [address] May, [facility] [address] [id number] [address] [place] [address] May, [facility] [address] [id number] [address] [place] [address], [place] [address] May, [facility] [address] [id number] [address] [place] [address], [place] [address] May, [facility] [address] [id number] [address] [place] [address], [place] [address] Apr, [facility] [address] [id number] [address] [place] [address], [place] [address] 30 Apr, 2012 [facility] [address] [id number] [address] [place] [address], [place] [address] Apr, [facility] [address] [id number] [address] [place] [address], [place] [address] Apr, [facility] [address] [id number] [address] [place] [address], [place] [address] Apr, [facility] [address] [id number] [address] [place] [address], [place] [address] Sep, [facility] [address] [id number] [address] [place] [address], [place] [address] 24 Aug, 2011 [facility] [address] [id number] [address] [place] [address], [place] [address] 16 Aug, 2011 [facility] [address] [id number] [address] [place] [address], [place] [address] Aug, [facility] [address] [id number] [address] [place] [address], [place] [address] Aug, [facility] [address] [id number] [address] [place] [address], [place] [address] Aug, [facility] [address] [id number] [address] [place] [address], [place] [address] Jul, [facility] [address] [id number] [address] [place] [address], [place] [address] Jul, [facility] [address] [id number] [address] [place] [address], [place] [address] Jul, [facility] [address] [id number] [address] [place] [address], [place] [address] Jun, [facility] [address] [id number] [address] [place] [address], [place] [address] Jun, [facility] [address] [id number] [address] [place] [address] Jun, [facility] [address] [facility] [id number] [address] [place] [address] May, [facility] [address] [facility] [id number] [address] [place] [address] Apr, [facility] [address] [facility] [id number] [address] [place] [address] Apr, [facility] [address] [facility] [id number] [address] [place] [address] Apr, [facility] [address] [facility] [id number] [address] [place] [place] [address] Apr, IMMUNIZATIONS No Known Immunizations SOCIAL HISTORY Never Assessed REASON FOR VISIT PLAN OF CARE VITAL SIGNS Height 69 in 2013-03-01 Weight 320 lbs 2013-03-01 Temperature 98 degrees Fahrenheit 2013-03-01 Heart Rate 80 bpm 2013-03-01 Respiratory Rate 14 2013-03-01 Blood pressure systolic 148 mmHg 2013-03-01 Blood pressure diastolic 90 mmHg 2013-03-01 MEDICATIONS Unknown Medications RESULTS No Results PROCEDURES No Known procedures INSTRUCTIONS MEDICATIONS ADMINISTERED No Known Medications MEDICAL (GENERAL) HISTORY Type Description Date Medical History hypertension Medical History Sleep apnea in adult Surgical History x 3 Surgical History cholecystectomy Surgical History Chemical Stress Test, EKG, Echo 05/2016 Hospitalization History surgeries Hospitalization History UTI VC 05/2016
--- OUTSIDE RECORDS SUMMARY | 2020-02-22 15:08 | XMS REPORT ---
Author Author Jada KHAN Organization [facility] Address [address] [place] [address] Care Team Providers Care Farm Equipment Service Technician Name Role Phone CARISA KHAN Unavailable PROBLEMS Type Condition ICD9-CM Code QNC47-NU Code Onset Dates Condition S tatus SNOMED Code Problem Tension headache G44.209 Active 398 428360 Problem DM neuro manif type II E11.49 Active 37647772 Problem Irritable bowel syndrome with diarrhea K58.0 Active 892771306 Problem Intractable migraine without aura and without st atus migrainosus G43.019 Active 853651932 Problem Menorrhagia with irregular cycle N92.1 Active 579504240 Problem Sleep apnea in adult G47.30 Active 64331032 Problem Other chronic pain G89.29 Active 8 1410475 Problem Iron deficiency anemia due to chronic blood loss D 50.0 Active 752722450 Problem Migraine with aura and without status migrainosu s, not intractable G43.109 Active 7505127 Problem Obstructive sleep apnea syndrome G47.33 Active 64961806 Problem Seasonal allergic rhinitis due to pollen J30.1 Active 39016672 Problem Chronic tension-type headache, not intractable G44 .229 Active 813130996 Problem HTN (hypertension) I10 Active 3 9759832 Problem Allergy, food Z91.018 Active 103309 001 Problem Primary osteoarthritis of left knee M17.12 Active [id number] Problem Hyperinsulinemia E16.1 Active 834 05551 Problem Chronic venous insufficiency I87.2 A ctive 22879079 Problem Multiple allergies Z88.9 Active 6 04672304 Problem Migraine headache G43.909 Active 37 313439 Problem Localized osteoarthritis of left knee M17.12 Active 728940856 ALLERGIES No Information ENCOUNTERS Encounter Location Date Diagnosis [facility] [address] [facility] [id number] [address] [place] [address] Feb, [facility] [address] [place] [address] 16 Jan, 2020 Right leg swelling M79.89 [place] [address] [place] [id number] [address] [place] [address] 15 Jan, 2020 Cellulitis of right lower le g L03.115 [place] [address] [place] [id number] [place] [address] 13 Jan, 2020 [place] [address] [place] [address] 08 Jan, 2020 Cellulitis of right lower ex tremity L03.115 and Itching L29.[address] [address] 06 Jan, 2020 [place] [address] [place] [id number] [place] [address] Jan, Cutaneous abscess of right l ower limb L02.415 ; Cellulitis of right lower limb L03.115 ; Itching L29.9 ; Allergy, food Z91.018 ; Hyperinsulinemia E16.1 and Obstructive sleep apnea syndrome G47.[address] [address] Dec, [facility] [address] [address] Oct, Foreign body (FB) in soft ti ssue M79.5 [address] [place] [address] Sep, HTN (hypertension) I10 [place] [id number] [place] [address] Sep, Viral URI J06.9 ; Cough prod uctive of purulent sputum R05 and Exposure to influenza Z20.828 [facility] [place] [id number] [place] [address] Sep, [facility] [address] [place] [address] 14 Sep, 2019 Flu-like symptoms R68.89 [facility] [address] [id number] [address] [place] [address] 12 Sep, 2019 Primary osteoarthritis of le ft knee M17.12 and Acute medial meniscus tear of left knee, subsequent encounter S83.242D [facility] [address] [id number] [address] [place] [address] 15 Aug, 2019 Flu-like symptoms R68.89 [facility] [address] [id number] [address] [place] [address] 03 Aug, 2019 Sore throat J02.9 [facility] [address] [id number] [address] [place] [address] Jul, [facility] [address] [id number] [address] [place] [address] Jul, [facility] [address] [id number] [address] [place] [address] Jul, [facility] [address] [id number] [address] [place] [address] Jul, [facility] [address] [id number] [address] [place] [address] Jul, Segmental dysfunction of tho racic region M99.02 ; Segmental dysfunction of lumbar region M99.03 ; Segmental dysfunction of cervical region M99.01 and Chronic tension-type headache, not intractable G44.229 [facility] [address] [id number] [address] [place] [address] Jul, [facility] [address] [id number] [address] [place] [address] Jun, Localized osteoarthritis of left knee M17.12 [facility] [address] [id number] [address] [place] [address] Jun, Acute non-recurrent sinusiti s, unspecified location J01.90 [facility] [address] [place] [address] 04 Jun, 2019 [facility] [address] [place] [address] 03 Jun, 2019 Viral upper respiratory trac t infection J06.9 [facility] [address] [place] [id number] [address] [place] [address] Jun, [facility] [address] [address] May, Prediabetes R73.03 and Iron deficiency anemia due to chronic blood loss D50.0 [place] [address] [address] May, [facility] [address] [place] [id number] [address] [place] [address] 20 May, 2019 Prediabetes R73.03 ; Left an terior knee pain M25.562 ; Encounter for immunization Z23 ; Migraine headache G43.909 ; Multiple allergies Z88.9 ; Snoring R06.83 and Iron deficiency anemia due to chronic blood loss D50.0 [facility] [address] [place] [id number] [address] [place] [address] 16 May, 2019 Nonintractable headache, uns pecified chronicity pattern, unspecified headache type R51 and Sore throat J02.9 [place] [address] [place] [address] 15 Apr, 2019 [facility] [address] [place] [id number] [address] [place] [address] 14 Apr, 2019 Fever, unspecified fever cau se R50.9 and Chest congestion R09.89 [facility] [address] [place] [id number] [address] [place] [address] 18 Mar, 2019 Abdominal pain R10.9 [facility] [address] [place] [id number] [address] [place] [address] 16 Mar, 2019 Chronic venous insufficiency I87.2 [facility] [address] [place] [id number] [address] [place] [address] Feb, [facility] [address] [place] [id number] [address] [place] [address] Feb, [facility] [address] [place] [id number] [address] [place] [address] Feb, [facility] [address] [address] Feb, Seasonal allergic rhinitis d ue to pollen J30.1 ; Cervicalgia M54.2 ; Pain in right leg M79.604 ; Morbid obesity E66.01 and Obstructive sleep apnea syndrome G47.33 [place] [address] [place] [id number] [address] [place] [address] Jan, [place] [address] [place] [id number] [place] [address] Jan, [place] [address] [address] Jan, [facility] [address] [address] Jan, Food allergy Z91.018 [place] [address] [place] [id number] [place] [address] Jan, Right ear pain H92.01 ; DM n euro manif type II E11.49 and Morbid obesity E66.01 [place] [address] [place] [address] Dec, Exercise counseling Z71.82 [place] [address] [place] [id number] [address] [place] [address] Dec, [place] [address] [place] [id number] [address] [place] [address] Dec, Acute midline low back pain without sciatica M54.5 ; Migraine headache G43.909 ; Obstructive sleep apnea syndrome G47.33 ; Localized edema R60.0 and Morbid obesity E66.01 [facility] [address] [facility] [id number] [address] [place] [address] Dec, Migraine with aura and witho ut status migrainosus, not intractable G43.109 and Morbid obesity E66.01 [facility] [address] [facility] [id number] [address] [place] [address] November, [place] [address] [facility] [id number] [address] [place] [address] November, [place] [address] [facility] [id number] [address] [place] [address] November, [place] [address] [place] [id number] [place] [address] November, Pain of left lower leg M79.6 [address] [place] [address] [place] [id number] [place] [address] November, Pain of left lower leg M79.6 62 and Candidiasis B37.9 [facility] [place] [address] [place] [id number] [address] [place] [address] November, Left leg pain M79.605 [place] [address] [place] [id number] [place] [address] November, Pain in right leg M79.604 [place] [address] [place] [id number] [address] [place] [address] Oct, Left leg pain M79.605 ; Left leg swelling M79.89 and Morbid obesity E66.01 [place] [address] [place] [id number] [address] [place] [address] Oct, Bronchitis J40 ; HTN (hypert ension) I10 and Morbid obesity E66.01 [facility] [address] [facility] [id number] [address] [place] [address] Oct, Sore throat J02.9 and Morbid obesity E66.01 [place] [address] [place] [id number] [address] [place] [address] Oct, [place] [address] [address] Oct, Allergy, food Z91.018 ; Cand idiasis B37.9 and Morbid obesity E66.01 [place] [address] [address] Sep, [place] [address] [address] Sep, Intractable migraine without aura and without status migrainosus G43.019 ; Allergic reaction to food, subsequent encounter T78.1XXD ; HTN (hypertension) I10 and Morbid obesity E66.01 [place] [address] [address] 31 Jul, 2018 [facility] [place] [address] [address] Jul, Rash R21 and BMI 50.0-59.9, adult Z68.43 [place] [address] [address] 28 Jun, 2018 Hyperinsulinemia E16.1 and M enorrhagia with irregular cycle N92.1 [place] [address] [address] Jun, Primary osteoarthritis of le ft knee M17.12 [facility] [place] [address] [address] 12 Jun, 2018 Sore throat J02.9 ; Acute na sopharyngitis J00 and BMI 50.0-59.9, adult Z68.43 [place] [address] [address] 05 Jun, 2018 Other chronic pain G89.29 ; Pain in left knee M25.562 ; Hyperinsulinemia E16.1 ; Menorrhagia with irregular cycle N92.1 and BMI 50.0- 59.9, adult Z68.43 [facility] [address] [address] Apr, BMI 50.0-59.9, adult Z68.43 ; Dysuria R30.0 and Acute UTI N39.0 [place] [address] [address] Apr, [place] [address] [address] Apr, Encounter for immunization Z 23 [place] [address] [address] 27 Mar, 2018 Acute midline low back pain without sciatica M54.5 ; Acute pain of left knee M25.562 and BMI 50.0-59.9, adult Z68.43 [place] [address] [address] 24 Mar, 2018 Intractable migraine without aura and without status migrainosus G43.019 and BMI 50.0-59.9, adult Z68.43 [place] [address] [address] 05 Mar, 2018 Bronchitis J40 ; Allergy to food Z91.018 and BMI 50.0-59.9, adult Z68.43 [facility] [address] [address] Mar, Bronchitis J40 ; Wheezing on both sides of chest R06.2 and BMI 50.0-59.9, adult Z68.43 [place] [address] [address] Feb, Pain in right leg M79.604 [place] [address] [address] Jan, Pneumonia of left lung due t o infectious organism, unspecified part of lung J18.9 [place] [address] [address] Dec, Pneumonia due to Mycoplasma pneumoniae, unspecified laterality, unspecified part of lung J15.7 and BMI 50.0-59.9, adult Z68.43 [place] [address] [address] Dec, [place] [address] [address] Dec, Bronchitis J40 and BMI 50.0- 59.9, adult Z68.43 [place] [address] [address] November, Bronchitis J40 ; LLQ pain R1 0.32 and BMI 50.0-59.9, adult Z68.43 [place] [address] [address] November, Iron deficiency anemia due t o chronic blood loss D50.[address] [address] November, [place] [address] [address] November, Iron deficiency anemia due t o chronic blood loss D50.0 ; DM neuro manif type II E11.49 ; Menorrhagia with irregular cycle N92.1 and BMI 50.0-59.9, adult Z68.43 [facility] [place] [address] [address] Oct, Sore throat J02.9 and Acute nasopharyngitis J00 [facility] [address] [address] Oct, Left leg pain M79.605 and BM I 50.0-59.9, adult Z68.43 [facility] [place] [address] [address] Sep, Upper respiratory tract infe ction, unspecified type J06.9 and BMI 50.0-59.9, adult Z68.43 [place] [address] [address] Sep, Menorrhagia with irregular c ycle N92.1 ; Sleep apnea in adult G47.30 and BMI 50.0-59.9, adult Z68.43 [facility] [address] [address] Sep, [facility] [address] [address] Aug, [facility] [address] [address] Aug, [facility] [address] [address] Aug, [facility] [address] [address] Aug, LLQ pain R10.32 ; Irritable bowel syndrome with diarrhea K58.0 ; Change in bowel habits R19.4 ; Essential hypertension I10 and BMI 50.0-59.9, adult Z68.43 [facility] [address] [address] Aug, [facility] [address] [address] Aug, [facility] [address] [address] Aug, Essential hypertension I10 a nd BMI 50.0-59.9, adult Z68.43 [facility] [address] [place] [id number] [address] [place] [address] Aug, [facility] [address] [address] Aug, [facility] [address] [place] [id number] [address] [place] [address] Aug, Allergic disorder, initial e ncounter T78.40XA and BMI 50.0-59.9, adult Z68.43 [facility] [address] [address] Jul, Other atopic dermatitis L20. 89 and BMI 50.0-59.9, adult Z68.43 [facility] [address] [address] 16 Jul, 2017 Intractable migraine without aura and without status migrainosus G43.019 and BMI 50.0-59.9, adult Z68.43 [place] [address] [address] Jun, DM neuro manif type II E11.4 9 ; Tension headache G44.209 ; Breast cancer screening Z12.31 and BMI 50.0-59.9, adult Z68.43 [place] [address] [address] Jun, Tension headache G44.209 ; B reast cancer screening Z12.31 ; BMI 50.0-59.9, adult Z68.43 and DM neuro manif type II E11.49 [facility] [address] [address] Apr, Dysuria R30.0 and Acute cyst itis with hematuria N30.01 [place] [address] [address] Apr, Hyperinsulinemia E16.1 [place] [address] [address] Mar, Acute non-recurrent maxillar y sinusitis J01.00 [place] [address] [address] Feb, Cellulitis of unspecified pa rt of limb L03.119 ; Spider bite wound, accidental or unintentional, subsequent encounter T63.301D and BMI 50.0-59.9, adult Z68.43 [place] [address] [place] [address] [place] [address] Jan, [place] [address] [facility] [id number] [address] [place] [address] Jan, Urinary tract infection, sit e unspecified N39.0 [place] [address] [facility] [id number] [address] [place] [address] Jan, Acute gastritis without hemo rrhage, unspecified gastritis type K29.00 [place] [address] [facility] [id number] [address] [place] [address] 30 Dec, 2016 Pain in right leg M79.604 [place] [address] [address] Dec, Hyperinsulinemia E16.1 and P ain in right leg M79.604 [place] [address] [address] Dec, Angioedema, initial encounte r T78.3XXA [place] [address] [place] [address] 15 Dec, 2016 Dental examination Z01.20 [place] [address] [place] [id number] [place] [address] 13 Dec, 2016 [place] [address] [address] Dec, Burning with urination R30.0 and Acute cystitis with hematuria N30.01 [place] [address] [place] [id number] [address] [place] [address] Oct, [place] [address] [address] Sep, [place] [address] [place] [id number] [address] [place] [address] Aug, Hyperinsulinemia E16.1 [place] [address] [address] Aug, [facility] [address] [facility] [id number] [address] [place] [address] Jul, [facility] [address] [address] Jul, Chondromalacia, left knee M9 4.262 and Acute lateral meniscus tear of left knee, initial encounter S83.282A [facility] [address] [address] Jul, [facility] [address] [facility] [id number] [address] [place] [address] Jun, Hyperinsulinemia E16.1 [facility] [address] [address] Jun, Dysuria R30.0 ; Back pain M5 4.9 ; Acute pain of left knee M25.562 and Hyperinsulinemia E16.1 [facility] [address] [place] [id number] [address] [place] [address] Jun, Acute non-recurrent maxillar y sinusitis J01.00 [facility] [address] [place] [id number] [address] [place] [address] Jun, Dysuria R30.0 [facility] [address] [place] [id number] [address] [place] [address] Jun, Dysuria R30.0 [facility] [address] [place] [address] Jun, [facility] [address] [place] [id number] [address] [place] [address] May, Dysuria R30.0 and Acute cyst itis with hematuria N30.01 [facility] [address] [place] [id number] [address] [place] [address] May, Hyperinsulinemia E16.1 [facility] [address] [place] [id number] [address] [place] [address] May, [facility] [address] [place] [id number] [address] [place] [address] 07 May, 2016 Sore throat J02.9 [facility] [address] [place] [address] 03 May, 2016 [facility] [address] [facility] [id number] [address] [place] [address] 08 Mar, 2016 Hyperinsulinemia E16.1 [facility] [address] [place] [id number] [address] [place] [address] Jan, Hyperinsulinemia E16.1 [facility] [address] [address] Dec, DM neuro manif type II E11.4 9 [facility] [address] [place] [id number] [place] [address] November, Hyperinsulinemia E16.1 and H ypertension I10 [facility] [address] [address] Oct, [facility] [address] [place] [id number] [address] [place] [address] Oct, Hyperinsulinemia E16.1 [facility] [address] [place] [id number] [address] [place] [address] 20 Oct, 2015 Pain, unspecified R52 [facility] [address] [address] 14 Oct, 2015 Pain in right foot M79.671 a nd Hyperinsulinemia E16.1 [facility] [address] [facility] [id number] [address] [place] [address] 14 Oct, 2015 Hyperinsulinemia E16.1 [facility] [address] [place] [id number] [place] [address] Oct, Hyperinsulinemia E16.1 [facility] [address] [place] [id number] [address] [place] [address] 17 Aug, 2015 Hypertension I10 and Viral i llness B34.9 [facility] [address] [id number] [address] [place] [address], [place] [address] 18 May, 2015 Back pain M54.9 [facility] [address] [id number] [address] [place] [address], [place] [address] 14 Oct, 2014 [facility] [address] [id number] [address] [place] [address], [place] [address] 13 Oct, 2014 [facility] [address] [id number] [address] [place] [address], [place] [address] 30 Sep, 2014 [facility] [address] [id number] [address] [place] [address], [place] [address] 30 Sep, 2014 [facility] [address] [id number] [address] [place] [address], [place] [address] 17 Sep, 2014 [facility] [address] [id number] [address] [place] [address], [place] [address] 17 Sep, 2014 [facility] [address] [id number] [address] [place] [address], [place] [address] 11 Sep, 2014 [facility] [address] [id number] [address] [place] [address], [place] [address] Sep, [facility] [address] [id number] [address] [place] [address], [place] [address] Sep, [facility] [address] [id number] [address] [place] [address], [place] [address] Sep, [facility] [address] [id number] [address] [place] [address], [place] [address] Sep, [facility] [address] [id number] [address] [place] [address], [place] [address] Sep, [facility] [address] [id number] [address] [place] [address], [place] [address] Sep, [facility] [address] [id number] [address] [place] [address], [place] [address] Sep, [facility] [address] [id number] [address] [place] [address], [place] [address] Mar, [facility] [address] [id number] [facility] [place] [place] [address] Mar, [facility] [address] [id number] [facility] [place] [address] Feb, [facility] [address] [id number] [address] [place] [address], [place] [address] Feb, [facility] [address] [id number] [address] [place] [address], [place] [address] Feb, [facility] [address] [id number] [address] [place] [address], [place] [address] Feb, [facility] [address] [id number] [address] [place] [address], [place] [address] Dec, [facility] [address] [id number] [address] [place] [address], [place] [address] Dec, [facility] [address] [id number] [address] [place] [address], [place] [address] Dec, [facility] [address] [id number] [address] [place] [address], [place] [address] Dec, [facility] [address] [id number] [address] [place] [address], [place] [address] Dec, [facility] [address] [id number] [address] [place] [address], [place] [address] Dec, [facility] [address] [id number] [address] [place] [address], [place] [address] Dec, [facility] [address] [id number] [address] [place] [address], [place] [address] Sep, [facility] [address] [id number] [address] [place] [address], [place] [address] Sep, [facility] [address] [id number] [address] [place] [address], [place] [address] Sep, [facility] [address] [id number] [address] [place] [address], [place] [address] Sep, [facility] [address] [id number] [address] [place] [address], [place] [address] Sep, [facility] [address] [id number] [address] [place] [address], [place] [address] Sep, [facility] [address] [id number] [address] [place] [address], [place] [address] Sep, [facility] [address] [id number] [address] [place] [address], [place] [address] Sep, [facility] [address] [id number] [address] [place] [address], [place] [address] Jul, [facility] [address] [id number] [address] [place] [address], [place] [address] Jul, [facility] [address] [id number] [address] [place] [address], [place] [address] Jun, [facility] [address] [id number] [address] [place] [address], [place] [address] Jun, [facility] [address] [id number] [address] [place] [address], [place] [address] May, [facility] [address] [id number] [address] [place] [address], [place] [address] May, [facility] [address] [id number] [address] [place] [address], [place] [address] May, [facility] [address] [id number] [address] [place] [address], [place] [address] May, [facility] [address] [id number] [address] [place] [address], [place] [address] May, [facility] [address] [id number] [address] [place] [address], [place] [address] May, [facility] [address] [id number] [address] [place] [address], [place] [address] 05 May, 2013 [facility] [address] [id number] [address] [place] [address], [place] [address] Apr, [facility] [address] [id number] [address] [place] [address], [place] [address] Apr, [facility] [address] [id number] [address] [place] [address], [place] [address] Apr, [facility] [address] [id number] [address] [place] [address], [place] [address] Apr, [facility] [address] [id number] [address] [place] [address], [place] [address] Apr, [facility] [address] [id number] [address] [place] [address], [place] [address] Apr, [facility] [address] [id number] [address] [place] [address], [place] [address] Mar, [facility] [address] [id number] [address] [place] [address], [place] [address] Feb, [facility] [address] [id number] [address] [place] [address], [place] [address] Jan, [facility] [address] [id number] [address] [place] [address], [place] [address] Jan, [facility] [address] [id number] [address] [place] [address], [place] [address] Jan, [facility] [address] [id number] [address] [place] [address], [place] [address] Dec, [facility] [address] [id number] [address] [place] [address], [place] [address] November, [facility] [address] [id number] [address] [place] [address], [place] [address] November, [facility] [address] [id number] [address] [place] [address], [place] [address] November, [facility] [address] [id number] [address] [place] [address], [place] [address] November, [facility] [address] [id number] [address] [place] [address], [place] [address] Oct, [facility] [address] [id number] [address] [place] [address], [place] [address] Aug, [facility] [address] [id number] [address] [place] [address], [place] [address] Aug, [facility] [address] [id number] [address] [place] [address], [place] [address] Aug, [facility] [address] [id number] [address] [place] [address], [place] [address] Aug, [facility] [address] [id number] [address] [place] [address], [place] [address] Aug, [facility] [address] [id number] [address] [place] [address], [place] [address] Aug, [facility] [address] [id number] [address] [place] [address], [place] [address] Jul, [facility] [address] [id number] [address] [place] [address], [place] [address] May, [facility] [address] [id number] [address] [place] [address], [place] [address] May, [facility] [address] [id number] [address] [place] [address], [place] [address] May, [facility] [address] [id number] [address] [place] [address], [place] [address] May, [facility] [address] [id number] [address] [place] [address], [place] [address] May, [facility] [address] [id number] [address] [place] [address], [place] [address] May, [facility] [address] [id number] [address] [place] [address], [place] [address] May, [facility] [address] [id number] [address] [place] [address], [place] [address] Apr, [facility] [address] [id number] [address] [place] [address], [place] [address] Apr, [facility] [address] [id number] [address] [place] [address], [place] [address] Apr, [facility] [address] [id number] [address] [place] [address], [place] [address] Apr, [facility] [address] [id number] [address] [place] [address], [place] [address] Apr, [facility] [address] [id number] [address] [place] [address], [place] [address] Sep, [facility] [address] [id number] [address] [place] [address], [place] [address] Aug, [facility] [address] [id number] [address] [place] [address], [place] [address] 16 Aug, 2011 [facility] [address] [id number] [address] [place] [address], [place] [address] Aug, [facility] [address] [id number] [address] [place] [address], [place] [address] Aug, [facility] [address] [id number] [address] [place] [address], [place] [address] Aug, [facility] [address] [id number] [address] [place] [address], [place] [address] Jul, [facility] [address] [id number] [address] [place] [address], [place] [address] Jul, [facility] [address] [id number] [address] [place] [address], [place] [address] Jul, [facility] [address] [id number] [address] [place] [address], [place] [address] Jun, [facility] [address] [id number] [address] [place] [address] Jun, [facility] [address] [facility] [id number] [address] [place] [address] Jun, [facility] [address] [facility] [id number] [address] [place] [address] May, [facility] [address] [facility] [id number] [address] [place] [address] Apr, [facility] [address] [facility] [id number] [address] [place] [address] Apr, [facility] [address] [facility] [id number] [address] [place] [address] Apr, [facility] [address] [facility] [id number] [address] [place] [address] Apr, IMMUNIZATIONS No Known Immunizations SOCIAL HISTORY Never Assessed REASON FOR VISIT PLAN OF CARE VITAL SIGNS MEDICATIONS Unknown Medications RESULTS No Results PROCEDURES Procedure Date Ordered Result Body Site ASSAY THYROID STIM HORMONE November 22, 2012 ASSAY OF INSULIN November 22, 2012 GLYCATED HEMOGLOBIN TEST November 22, 2012 COMPREHEN METABOLIC PANEL November 22, 2012 VENIPUNCT, ROUTINE* November 22, 2012 INSTRUCTIONS MEDICATIONS ADMINISTERED No Known Medications MEDICAL (GENERAL) HISTORY Type Description Date Medical History hypertension Medical History Sleep apnea in adult Surgical History x 3 Surgical History cholecystectomy Surgical History Chemical Stress Test, EKG, Echo 05/2016 Hospitalization History surgeries Hospitalization History [facility] VC 05/2016
--- OUTSIDE RECORDS SUMMARY | 2020-02-22 15:09 | XMS REPORT ---
Author Author Jada KHAN Organization [facility] Address [address] [place] [address] Care Team Providers Care Residential Assistant Name Role Phone CARISA KHAN Unavailable PROBLEMS Type Condition ICD9-CM Code LMM74-UM Code Onset Dates Condition S tatus SNOMED Code Problem Tension headache G44.209 Active 398 783286 Problem DM neuro manif type II E11.49 Active 12550609 Problem Irritable bowel syndrome with diarrhea K58.0 Active 386570687 Problem Intractable migraine without aura and without st atus migrainosus G43.019 Active 871141792 Problem Menorrhagia with irregular cycle N92.1 Active 261767825 Problem Sleep apnea in adult G47.30 Active 99139412 Problem Other chronic pain G89.29 Active 8 3718735 Problem Iron deficiency anemia due to chronic blood loss D 50.0 Active 838297766 Problem Migraine with aura and without status migrainosu s, not intractable G43.109 Active 0939805 Problem Obstructive sleep apnea syndrome G47.33 Active 65007841 Problem Seasonal allergic rhinitis due to pollen J30.1 Active 40698369 Problem Chronic tension-type headache, not intractable G44 .229 Active 398961765 Problem HTN (hypertension) I10 Active 3 5577668 Problem Allergy, food Z91.018 Active 611822 001 Problem Primary osteoarthritis of left knee M17.12 Active 707199401052244 Problem Hyperinsulinemia E16.1 Active 834 18439 Problem Chronic venous insufficiency I87.2 A ctive 81704457 Problem Multiple allergies Z88.9 Active 6 79222237 Problem Migraine headache G43.909 Active 37 047140 Problem Localized osteoarthritis of left knee M17.12 Active 720525293 ALLERGIES No Information ENCOUNTERS Encounter Location Date Diagnosis [facility] [address] [facility] [id number] [address] [place] [address] Jan, Right leg swelling M79.[address] [address] 15 Jan, 2020 Cellulitis of right lower le g L03.[address] [address] Jan, [address] [address] 08 Jan, 2020 Cellulitis of right lower ex tremity L03.115 and Itching L29.[address] [address] Jan, [address] [address] Jan, Cutaneous abscess of right l ower limb L02.415 ; Cellulitis of right lower limb L03.115 ; Itching L29.9 ; Allergy, food Z91.018 ; Hyperinsulinemia E16.1 and Obstructive sleep apnea syndrome G47.[address] [address] Dec, [facility] [address] [address] Oct, Foreign body (FB) in soft ti ssue M79.[address] [address] Sep, HTN (hypertension) I10 [address] [address] Sep, Viral URI J06.9 ; Cough prod uctive of purulent sputum R05 and Exposure to influenza Z20.828 [facility] [address] [address] Sep, [facility] [address] [address] 14 Sep, 2019 Flu-like symptoms R68.89 [place] [id number] [address] [place] [address] Sep, Primary osteoarthritis of le ft knee M17.12 and Acute medial meniscus tear of left knee, subsequent encounter S83.242D [facility] [address] [id number] [address] [place] [address] 15 Aug, 2019 Flu-like symptoms R68.89 [facility] [address] [id number] [address] [place] [address] 03 Aug, 2019 Sore throat J02.9 [facility] [address] [id number] [address] [place] [address] Jul, [facility] [address] [id number] [address] [place] [address] Jul, [facility] [address] [id number] [address] [place] [address] Jul, [facility] [address] [id number] [address] [place] [address] Jul, [facility] [address] [id number] [address] [place] [address] Jul, Segmental dysfunction of tho racic region M99.02 ; Segmental dysfunction of lumbar region M99.03 ; Segmental dysfunction of cervical region M99.01 and Chronic tension-type headache, not intractable G44.229 [facility] [address] [id number] [address] [place] [address] Jul, [facility] [address] [id number] [address] [place] [address] Jun, Localized osteoarthritis of left knee M17.12 [facility] [address] [id number] [address] [place] [address] Jun, Acute non-recurrent sinusiti s, unspecified location J01.90 [facility] [address] [id number] [address] [place] [address] Jun, [facility] [address] [place] [address] Jun, Viral upper respiratory trac t infection J06.9 [facility] [address] [place] [id number] [address] [place] [address] Jun, [place] [address] [place] [id number] [address] [place] [address] May, Prediabetes R73.03 and Iron deficiency anemia due to chronic blood loss D50.0 [facility] [address] [place] [id number] [address] [place] [address] May, [place] [address] [address] May, Prediabetes R73.03 ; Left an terior knee pain M25.562 ; Encounter for immunization Z23 ; Migraine headache G43.909 ; Multiple allergies Z88.9 ; Snoring R06.83 and Iron deficiency anemia due to chronic blood loss D50.0 [facility] [address] [place] [address] 16 May, 2019 Nonintractable headache, uns pecified chronicity pattern, unspecified headache type R51 and Sore throat J02.9 [facility] [address] [place] [id number] [address] [place] [address] 15 Apr, 2019 [place] [address] [place] [address] 14 Apr, 2019 Fever, unspecified fever cau se R50.9 and Chest congestion R09.89 [facility] [address] [place] [id number] [address] [place] [address] 18 Mar, 2019 Abdominal pain R10.9 [place] [address] [place] [id number] [address] [place] [address] 16 Mar, 2019 Chronic venous insufficiency I87.2 [place] [address] [place] [id number] [address] [place] [address] Feb, [facility] [address] [place] [id number] [address] [place] [address] Feb, [facility] [address] [facility] [id number] [address] [place] [address] Feb, [facility] [address] [facility] [id number] [address] [place] [address] Feb, Seasonal allergic rhinitis d ue to pollen J30.1 ; Cervicalgia M54.2 ; Pain in right leg M79.604 ; Morbid obesity E66.01 and Obstructive sleep apnea syndrome G47.33 [facility] [address] [facility] [id number] [address] [place] [address] Jan, [facility] [address] [facility] [id number] [address] [place] [address] Jan, [place] [address] [facility] [id number] [address] [place] [address] Jan, [place] [address] [place] [id number] [address] [place] [address] Jan, Food allergy Z91.018 [facility] [address] [facility] [id number] [address] [place] [address] Jan, Right ear pain H92.01 ; DM n euro manif type II E11.49 and Morbid obesity E66.01 [place] [address] [facility] [id number] [address] [place] [address] Dec, Exercise counseling Z71.82 [facility] [address] [facility] [id number] [address] [place] [address] Dec, [facility] [address] [facility] [id number] [address] [place] [address] Dec, Acute midline low back pain without sciatica M54.5 ; Migraine headache G43.909 ; Obstructive sleep apnea syndrome G47.33 ; Localized edema R60.0 and Morbid obesity E66.01 [facility] [address] [facility] [id number] [address] [place] [address] Dec, Migraine with aura and witho ut status migrainosus, not intractable G43.109 and Morbid obesity E66.01 [facility] [address] [facility] [id number] [address] [place] [address] November, [facility] [address] [facility] [id number] [address] [place] [address] November, [facility] [address] [place] [id number] [address] [place] [address] November, [facility] [address] [facility] [id number] [address] [place] [address] November, Pain of left lower leg M79.6 [address] [place] [address] [place] [id number] [place] [address] November, Pain of left lower leg M79.6 62 and Candidiasis B37.9 [facility] [address] [place] [id number] [address] [place] [address] November, Left leg pain M79.605 [place] [address] [place] [id number] [place] [address] November, Pain in right leg M79.604 [place] [address] [place] [id number] [place] [address] Oct, Left leg pain M79.605 ; Left leg swelling M79.89 and Morbid obesity E66.01 [facility] [address] [place] [id number] [address] [place] [address] Oct, Bronchitis J40 ; HTN (hypert ension) I10 and Morbid obesity E66.01 [facility] [address] [facility] [id number] [address] [place] [address] Oct, Sore throat J02.9 and Morbid obesity E66.01 [facility] [address] [place] [id number] [address] [place] [address] Oct, [facility] [address] [place] [id number] [address] [place] [address] Oct, Allergy, food Z91.018 ; Cand idiasis B37.9 and Morbid obesity E66.01 [place] [address] [address] Sep, [place] [address] [address] Sep, Intractable migraine without aura and without status migrainosus G43.019 ; Allergic reaction to food, subsequent encounter T78.1XXD ; HTN (hypertension) I10 and Morbid obesity E66.01 [place] [address] [address] Jul, [facility] [place] [address] [address] Jul, Rash R21 and BMI 50.0-59.9, adult Z68.43 [place] [address] [address] 28 Jun, 2018 Hyperinsulinemia E16.1 and M enorrhagia with irregular cycle N92.1 [place] [address] [address] Jun, Primary osteoarthritis of le ft knee M17.12 [facility] [place] [address] [address] Jun, Sore throat J02.9 ; Acute na sopharyngitis J00 and BMI 50.0-59.9, adult Z68.43 [place] [address] [address] 05 Jun, 2018 Other chronic pain G89.29 ; Pain in left knee M25.562 ; Hyperinsulinemia E16.1 ; Menorrhagia with irregular cycle N92.1 and BMI 50.0- 59.9, adult Z68.43 [facility] [place] [address] [address] Apr, BMI 50.0-59.9, adult Z68.43 ; Dysuria R30.0 and Acute UTI N39.0 [facility] [address] [address] Apr, [place] [address] [address] Apr, Encounter for immunization Z 23 [place] [address] [address] 27 Mar, 2018 Acute midline low back pain without sciatica M54.5 ; Acute pain of left knee M25.562 and BMI 50.0-59.9, adult Z68.43 [place] [address] [address] 24 Mar, 2018 Intractable migraine without aura and without status migrainosus G43.019 and BMI 50.0-59.9, adult Z68.43 [place] [address] [address] 05 Mar, 2018 Bronchitis J40 ; Allergy to food Z91.018 and BMI 50.0-59.9, adult Z68.43 [facility] [address] [address] 01 Mar, 2018 Bronchitis J40 ; Wheezing on both sides of chest R06.2 and BMI 50.0-59.9, adult Z68.43 [place] [address] [address] Feb, Pain in right leg M79.604 [place] [address] [address] Jan, Pneumonia of left lung due t o infectious organism, unspecified part of lung J18.9 [place] [address] [address] Dec, Pneumonia due to Mycoplasma pneumoniae, unspecified laterality, unspecified part of lung J15.7 and BMI 50.0-59.9, adult Z68.43 [place] [address] [address] Dec, [place] [address] [address] Dec, Bronchitis J40 and BMI 50.0- 59.9, adult Z68.43 [place] [address] [address] November, Bronchitis J40 ; LLQ pain R1 0.32 and BMI 50.0-59.9, adult Z68.43 [place] [address] [address] November, Iron deficiency anemia due t o chronic blood loss D50.0 [place] [address] [address] November, [place] [address] [address] November, Iron deficiency anemia due t o chronic blood loss D50.0 ; DM neuro manif type II E11.49 ; Menorrhagia with irregular cycle N92.1 and BMI 50.0-59.9, adult Z68.43 [facility] [place] [address] [address] Oct, Sore throat J02.9 and Acute nasopharyngitis J00 [facility] [place] [address] [address] Oct, Left leg pain M79.605 and BM I 50.0-59.9, adult Z68.43 [facility] [place] [address] [address] Sep, Upper respiratory tract infe ction, unspecified type J06.9 and BMI 50.0-59.9, adult Z68.43 [place] [address] [address] Sep, Menorrhagia with irregular c ycle N92.1 ; Sleep apnea in adult G47.30 and BMI 50.0-59.9, adult Z68.43 [facility] [address] [address] Sep, [facility] [address] [address] Aug, [facility] [address] [address] Aug, [facility] [address] [address] Aug, [facility] [address] [address] Aug, LLQ pain R10.32 ; Irritable bowel syndrome with diarrhea K58.0 ; Change in bowel habits R19.4 ; Essential hypertension I10 and BMI 50.0-59.9, adult Z68.43 [facility] [address] [address] Aug, [facility] [address] [address] Aug, [facility] [place] [address] [address] Aug, Essential hypertension I10 a nd BMI 50.0-59.9, adult Z68.43 [facility] [address] [address] Aug, [facility] [address] [address] Aug, [facility] [address] [address] 02 Aug, 2017 Allergic disorder, initial e ncounter T78.40XA and BMI 50.0-59.9, adult Z68.43 [facility] [address] [place] [id number] [address] [place] [address] Jul, Other atopic dermatitis L20. 89 and BMI 50.0-59.9, adult Z68.43 [facility] [address] [address] Jul, Intractable migraine without aura and without status migrainosus G43.019 and BMI 50.0-59.9, adult Z68.43 [facility] [address] [address] Jun, DM neuro manif type II E11.4 9 ; Tension headache G44.209 ; Breast cancer screening Z12.31 and BMI 50.0-59.9, adult Z68.43 [place] [address] [address] Jun, Tension headache G44.209 ; B reast cancer screening Z12.31 ; BMI 50.0-59.9, adult Z68.43 and DM neuro manif type II E11.49 [facility] [address] [address] Apr, Dysuria R30.0 and Acute cyst itis with hematuria N30.01 [place] [address] [address] Apr, Hyperinsulinemia E16.1 [place] [address] [address] Mar, Acute non-recurrent maxillar y sinusitis J01.00 [place] [address] [address] Feb, Cellulitis of unspecified pa rt of limb L03.119 ; Spider bite wound, accidental or unintentional, subsequent encounter T63.301D and BMI 50.0-59.9, adult Z68.43 [facility] [address] [place] [id number] [address] [place] [address] Jan, [place] [address] [address] Jan, Urinary tract infection, sit e unspecified N39.0 [place] [address] [address] Jan, Acute gastritis without hemo rrhage, unspecified gastritis type K29.00 [place] [address] [address] Dec, Pain in right leg M79.604 [place] [address] [address] Dec, Hyperinsulinemia E16.1 and P ain in right leg M79.604 [place] [address] [address] Dec, Angioedema, initial encounte r T78.3XXA [place] [address] [address] Dec, Dental examination Z01.20 [place] [address] [address] Dec, [place] [address] [address] Dec, Burning with urination R30.0 and Acute cystitis with hematuria N30.01 [place] [address] [address] Oct, [place] [address] [address] Sep, [place] [address] [address] Aug, Hyperinsulinemia E16.1 [place] [address] [address] Aug, [place] [address] [address] Jul, [facility] [address] [id number] [address] [place] [address] Jul, Chondromalacia, left knee M9 4.262 and Acute lateral meniscus tear of left knee, initial encounter S83.282A [facility] [address] [id number] [address] [place] [address] Jul, [facility] [address] [facility] [id number] [address] [place] [address] Jun, Hyperinsulinemia E16.1 [facility] [address] [facility] [id number] [address] [place] [address] Jun, Dysuria R30.0 ; Back pain M5 4.9 ; Acute pain of left knee M25.562 and Hyperinsulinemia E16.1 [facility] [address] [facility] [id number] [address] [place] [address] Jun, Acute non-recurrent maxillar y sinusitis J01.00 [facility] [address] [facility] [id number] [address] [place] [address] Jun, Dysuria R30.0 [facility] [address] [facility] [id number] [address] [place] [address] Jun, Dysuria R30.0 [facility] [address] [facility] [id number] [address] [place] [address] Jun, [facility] [address] [facility] [id number] [address] [place] [address] May, Dysuria R30.0 and Acute cyst itis with hematuria N30.01 [facility] [address] [id number] [address] [place] [address] May, Hyperinsulinemia E16.1 [facility] [address] [facility] [id number] [address] [place] [address] May, [facility] [address] [facility] [id number] [address] [place] [address] May, Sore throat J02.9 [place] [address] [id number] [address] [place] [address] 03 May, 2016 [facility] [address] [facility] [id number] [address] [place] [address] 08 Mar, 2016 Hyperinsulinemia E16.1 [facility] [address] [facility] [id number] [address] [place] [address] Jan, Hyperinsulinemia E16.1 [facility] [address] [facility] [id number] [address] [place] [address] Dec, DM neuro manif type II E11.4 9 [facility] [address] [facility] [id number] [address] [place] [address] November, Hyperinsulinemia E16.1 and H ypertension I10 [facility] [address] [facility] [id number] [address] [place] [address] Oct, [facility] [address] [facility] [id number] [address] [place] [address] Oct, Hyperinsulinemia E16.1 [facility] [address] [facility] [id number] [address] [place] [address] Oct, Pain, unspecified R52 [facility] [address] [facility] [id number] [address] [place] [address] Oct, Pain in right foot M79.671 a nd Hyperinsulinemia E16.1 [facility] [address] [facility] [id number] [address] [place] [address] 14 Oct, 2015 Hyperinsulinemia E16.1 [facility] [address] [facility] [id number] [address] [place] [address] Oct, Hyperinsulinemia E16.1 [facility] [address] [facility] [id number] [address] [place] [address] 17 Aug, 2015 Hypertension I10 and Viral i llness B34.9 [facility] [address] [facility] [id number] [address] [place] [id number] 18 May, 2015 Back pain M54.9 [facility] [address] [id number] [address] [place] [address], [place] [address] 14 Oct, 2014 [facility] [address] [id number] [address] [place] [address], [place] [address] 13 Oct, 2014 [facility] [address] [id number] [address] [place] [address], [place] [address] 30 Sep, 2014 [facility] [address] [id number] [address] [place] [address], [place] [address] 30 Sep, 2014 [facility] [address] [id number] [address] [place] [address], [place] [address] 17 Sep, 2014 [facility] [address] [id number] [address] [place] [address], [place] [address] 17 Sep, 2014 [facility] [address] [id number] [address] [place] [address], [place] [address] Sep, [facility] [address] [id number] [address] [place] [address], [place] [address] Sep, 2014 [facility] [address] [id number] [address] [place] [address], [place] [address] Sep, [facility] [address] [id number] [address] [place] [address], [place] [address] Sep, [facility] [address] [id number] [address] [place] [address], [place] [address] Sep, [facility] [address] [id number] [address] [place] [address], [place] [address] Sep, 2014 [facility] [address] [id number] [address] [place] [address], [place] [address] Sep, 2014 [facility] [address] [id number] [address] [place] [address], [place] [address] Sep, 2014 [facility] [address] [id number] [address] [place] [address], [place] [address] Mar, [facility] [address] [id number] [address] [place] [address], [place] [address] Mar, [facility] [address] [id number] [facility] [place] [address] Feb, [facility] [address] [id number] [facility] [place] [address] Feb, [facility] [address] [id number] [address] [place] [address], [place] [address] Feb, [facility] [address] [id number] [address] [place] [address], [place] [address] Feb, [facility] [address] [id number] [address] [place] [address], [place] [address] Dec, [facility] [address] [id number] [address] [place] [address], [place] [address] Dec, [facility] [address] [id number] [address] [place] [address], [place] [address] Dec, [facility] [address] [id number] [address] [place] [address], [place] [address] Dec, [facility] [address] [id number] [address] [place] [address], [place] [address] Dec, [facility] [address] [id number] [address] [place] [address], [place] [address] Dec, [facility] [address] [id number] [address] [place] [address], [place] [address] Dec, [facility] [address] [id number] [address] [place] [address], [place] [address] Sep, [facility] [address] [id number] [address] [place] [address], [place] [address] Sep, [facility] [address] [id number] [address] [place] [address], [place] [address] Sep, [facility] [address] [id number] [address] [place] [address], [place] [address] Sep, [facility] [address] [id number] [address] [place] [address], [place] [address] Sep, [facility] [address] [id number] [address] [place] [address], [place] [address] Sep, [facility] [address] [id number] [address] [place] [address], [place] [address] Sep, [facility] [address] [id number] [address] [place] [address], [place] [address] Sep, [facility] [address] [id number] [address] [place] [address], [place] [address] Jul, [facility] [address] [id number] [address] [place] [address], [place] [address] Jul, [facility] [address] [id number] [address] [place] [address], [place] [address] Jun, [facility] [address] [id number] [address] [place] [address], [place] [address] Jun, [facility] [address] [id number] [address] [place] [address], [place] [address] May, [facility] [address] [id number] [address] [place] [address], [place] [address] May, [facility] [address] [id number] [address] [place] [address], [place] [address] May, [facility] [address] [id number] [address] [place] [address], [place] [address] May, [facility] [address] [id number] [address] [place] [address], [place] [address] May, [facility] [address] [id number] [address] [place] [address], [place] [address] May, [facility] [address] [id number] [address] [place] [address], [place] [address] 05 May, 2013 [facility] [address] [id number] [address] [place] [address], [place] [address] Apr, [facility] [address] [id number] [address] [place] [address], [place] [address] Apr, [facility] [address] [id number] [address] [place] [address], [place] [address] Apr, [facility] [address] [id number] [address] [place] [address], [place] [address] Apr, [facility] [address] [id number] [address] [place] [address], [place] [address] Apr, [facility] [address] [id number] [address] [place] [address], [place] [address] Apr, [facility] [address] [id number] [address] [place] [address], [place] [address] Mar, [facility] [address] [id number] [address] [place] [address], [place] [address] Feb, [facility] [address] [id number] [address] [place] [address], [place] [address] Jan, [facility] [address] [id number] [address] [place] [address], [place] [address] Jan, [facility] [address] [id number] [address] [place] [address], [place] [address] Jan, [facility] [address] [id number] [address] [place] [address], [place] [address] Dec, [facility] [address] [id number] [address] [place] [address], [place] [address] November, [facility] [address] [id number] [address] [place] [address], [place] [address] November, [facility] [address] [id number] [address] [place] [address], [place] [address] November, [facility] [address] [id number] [address] [place] [address], [place] [address] November, [facility] [address] [id number] [address] [place] [address], [place] [address] Oct, [facility] [address] [id number] [address] [place] [address], [place] [address] Aug, [facility] [address] [id number] [address] [place] [address], [place] [address] Aug, [facility] [address] [id number] [address] [place] [address], [place] [address] Aug, [facility] [address] [id number] [address] [place] [address], [place] [address] Aug, [facility] [address] [id number] [address] [place] [address], [place] [address] Aug, [facility] [address] [id number] [address] [place] [address], [place] [address] Aug, [facility] [address] [id number] [address] [place] [address], [place] [address] Jul, [facility] [address] [id number] [address] [place] [address], [place] [address] May, [facility] [address] [id number] [address] [place] [address], [place] [address] May, [facility] [address] [id number] [address] [place] [address], [place] [address] May, [facility] [address] [id number] [address] [place] [address], [place] [address] May, [facility] [address] [id number] [address] [place] [address] May, [facility] [address] [id number] [address] [place] [address], [place] [address] May, [facility] [address] [id number] [address] [place] [address], [place] [address] May, [facility] [address] [id number] [address] [place] [address], [place] [address] Apr, [facility] [address] [id number] [address] [place] [address], [place] [address] 30 Apr, 2012 [facility] [address] [id number] [address] [place] [address], [place] [address] Apr, [facility] [address] [id number] [address] [place] [address], [place] [address] Apr, [facility] [address] [id number] [address] [place] [address], [place] [address] Apr, [facility] [address] [id number] [address] [place] [address], [place] [address] Sep, [facility] [address] [id number] [address] [place] [address], [place] [address] 24 Aug, 2011 [facility] [address] [id number] [address] [place] [address], [place] [address] 16 Aug, 2011 [facility] [address] [id number] [address] [place] [address], [place] [address] Aug, [facility] [address] [id number] [address] [place] [address], [place] [address] Aug, [facility] [address] [id number] [address] [place] [address], [place] [address] Aug, [facility] [address] [id number] [address] [place] [address], [place] [address] Jul, [facility] [address] [id number] [address] [place] [address], [place] [address] Jul, [facility] [address] [id number] [address] [place] [address], [place] [address] Jul, [facility] [address] [id number] [address] [place] [address], [place] [address] Jun, [facility] [address] [id number] [address] [place] [address], [place] [address] Jun, [facility] [address] [id number] [address] [place] [address] Jun, [facility] [address] [facility] [id number] [address] [place] [address] May, [facility] [address] [facility] [id number] [address] [place] [address] Apr, [facility] [address] [facility] [id number] [address] [place] [address] Apr, [facility] [address] [facility] [id number] [address] [place] [address] Apr, [facility] [address] [facility] [id number] [address] [place] [address] Apr, IMMUNIZATIONS No Known Immunizations SOCIAL HISTORY [...]
--- OUTSIDE RECORDS SUMMARY | 2020-02-22 15:09 | XMS REPORT ---
Author Author Jada KHAN Organization [facility] Address [address] [place] [address] Care Team Providers Care Drafter Seismograph Name Role Phone CARISA KHAN Unavailable PROBLEMS Type Condition ICD9-CM Code UZA16-ZK Code Onset Dates Condition S tatus SNOMED Code Problem Tension headache G44.209 Active 398 128436 Problem DM neuro manif type II E11.49 Active 46259808 Problem Irritable bowel syndrome with diarrhea K58.0 Active 780908103 Problem Intractable migraine without aura and without st atus migrainosus G43.019 Active 303865626 Problem Menorrhagia with irregular cycle N92.1 Active 021701806 Problem Sleep apnea in adult G47.30 Active 33489362 Problem Other chronic pain G89.29 Active 8 5372222 Problem Iron deficiency anemia due to chronic blood loss D 50.0 Active 775605169 Problem Migraine with aura and without status migrainosu s, not intractable G43.109 Active 8587082 Problem Obstructive sleep apnea syndrome G47.33 Active 67967810 Problem Seasonal allergic rhinitis due to pollen J30.1 Active 09629389 Problem Chronic tension-type headache, not intractable G44 .229 Active 938700539 Problem HTN (hypertension) I10 Active 3 3484825 Problem Allergy, food Z91.018 Active 311920 001 Problem Primary osteoarthritis of left knee M17.12 Active [id number] Problem Hyperinsulinemia E16.1 Active 834 16705 Problem Chronic venous insufficiency I87.2 A ctive 02454589 Problem Multiple allergies Z88.9 Active 6 90822678 Problem Migraine headache G43.909 Active 37 863116 Problem Localized osteoarthritis of left knee M17.12 Active 134532989 ALLERGIES No Information ENCOUNTERS Encounter Location Date Diagnosis [facility] [address] [facility] [id number] [address] [place] [address] Jan, Right leg swelling M79.[address] [address] 15 Jan, 2020 Cellulitis of right lower le g L03.[address] [address] Jan, [address] [address] 08 Jan, 2020 Cellulitis of right lower ex tremity L03.115 and Itching L29.[address] [address] Jan, [address] [address] Jan, Cutaneous abscess of right l ower limb L02.415 ; Cellulitis of right lower limb L03.115 ; Itching L29.9 ; Allergy, food Z91.018 ; Hyperinsulinemia E16.1 and Obstructive sleep apnea syndrome G47.[address] [address] Dec, [facility] [place] [address] [address] Oct, Foreign body (FB) in soft ti ssue M79.[address] [address] Sep, HTN (hypertension) I10 [address] [address] Sep, Viral URI J06.9 ; Cough prod uctive of purulent sputum R05 and Exposure to influenza Z20.828 [facility] [place] [address] [address] Sep, [facility] [place] [address] [address] 14 Sep, 2019 Flu-like symptoms R68.89 [place] [id number] [address] [place] [address] Sep, Primary osteoarthritis of le ft knee M17.12 and Acute medial meniscus tear of left knee, subsequent encounter S83.242D [facility] [address] [id number] [address] [place] [address] 15 Aug, 2019 Flu-like symptoms R68.89 [facility] [address] [id number] [address] [place] [address] 03 Aug, [address] [facility] [address] [id number] [address] [place] [address] Jul, [facility] [address] [id number] [address] [place] [address] Jul, [facility] [address] [id number] [address] [place] [address] Jul, [facility] [address] [id number] [address] [place] [address] Jul, [facility] [address] [id number] [address] [place] [address] Jul, Segmental dysfunction of tho racic region M99.02 ; Segmental dysfunction of lumbar region M99.03 ; Segmental dysfunction of cervical region M99.01 and Chronic tension-type headache, not intractable G44.229 [facility] [address] [id number] [address] [place] [address] Jul, [facility] [address] [id number] [address] [place] [address] Jun, Localized osteoarthritis of left knee M17.12 [facility] [address] [id number] [address] [place] [address] Jun, Acute non-recurrent sinusiti s, unspecified location J01.90 [facility] [address] [id number] [address] [place] [address] Jun, [facility] [address] [place] [address] Jun, Viral upper respiratory trac t infection J06.9 [facility] [address] [place] [id number] [address] [place] [address] Jun, [place] [address] [place] [id number] [address] [place] [address] May, Prediabetes R73.03 and Iron deficiency anemia due to chronic blood loss D50.0 [facility] [address] [place] [id number] [address] [place] [address] May, [place] [address] [address] May, Prediabetes R73.03 ; Left an terior knee pain M25.562 ; Encounter for immunization Z23 ; Migraine headache G43.909 ; Multiple allergies Z88.9 ; Snoring R06.83 and Iron deficiency anemia due to chronic blood loss D50.0 [facility] [address] [place] [address] 16 May, 2019 Nonintractable headache, uns pecified chronicity pattern, unspecified headache type R51 and Sore throat J02.9 [facility] [address] [place] [id number] [address] [place] [address] 15 Apr, 2019 [place] [address] [place] [address] 14 Apr, 2019 Fever, unspecified fever cau se R50.9 and Chest congestion R09.89 [facility] [address] [place] [id number] [address] [place] [address] 18 Mar, 2019 Abdominal pain R10.9 [place] [address] [place] [id number] [address] [place] [address] 16 Mar, 2019 Chronic venous insufficiency I87.2 [place] [address] [place] [id number] [address] [place] [address] Feb, [facility] [address] [place] [id number] [address] [place] [address] Feb, [facility] [address] [facility] [id number] [address] [place] [address] Feb, [facility] [address] [facility] [id number] [address] [place] [address] Feb, Seasonal allergic rhinitis d ue to pollen J30.1 ; Cervicalgia M54.2 ; Pain in right leg M79.604 ; Morbid obesity E66.01 and Obstructive sleep apnea syndrome G47.33 [facility] [address] [facility] [id number] [address] [place] [address] Jan, [facility] [address] [facility] [id number] [address] [place] [address] Jan, [place] [address] [facility] [id number] [address] [place] [address] Jan, [place] [address] [place] [id number] [address] [place] [address] Jan, Food allergy Z91.018 [facility] [address] [facility] [id number] [address] [place] [address] Jan, Right ear pain H92.01 ; DM n euro manif type II E11.49 and Morbid obesity E66.01 [place] 835951 N [facility] [id number] [address] [place] [address] Dec, Exercise counseling Z71.82 [facility] [address] [facility] [id number] [address] [place] [address] Dec, [facility] [address] [facility] [id number] [address] [place] [address] Dec, Acute midline low back pain without sciatica M54.5 ; Migraine headache G43.909 ; Obstructive sleep apnea syndrome G47.33 ; Localized edema R60.0 and Morbid obesity E66.01 [facility] [address] [facility] [id number] [address] [place] [address] Dec, Migraine with aura and witho ut status migrainosus, not intractable G43.109 and Morbid obesity E66.01 [facility] [address] [facility] [id number] [address] [place] [address] November, [facility] [address] [facility] [id number] [address] [place] [address] November, [facility] [address] [place] [id number] [address] [place] [address] November, [facility] [address] [facility] [id number] [address] [place] [address] November, Pain of left lower leg M79.6 [address] [place] [address] [place] [id number] [place] [address] November, Pain of left lower leg M79.6 62 and Candidiasis B37.9 [facility] [address] [place] [id number] [address] [place] [address] November, Left leg pain M79.605 [place] [address] [place] [id number] [place] [address] November, Pain in right leg M79.604 [place] [address] [place] [id number] [place] [address] Oct, Left leg pain M79.605 ; Left leg swelling M79.89 and Morbid obesity E66.01 [facility] [address] [place] [id number] [address] [place] [address] Oct, Bronchitis J40 ; HTN (hypert ension) I10 and Morbid obesity E66.01 [facility] [address] [facility] [id number] [address] [place] [address] Oct, Sore throat J02.9 and Morbid obesity E66.01 [facility] [address] [place] [id number] [address] [place] [address] Oct, [facility] [address] [place] [id number] [address] [place] [address] Oct, Allergy, food Z91.018 ; Cand idiasis B37.9 and Morbid obesity E66.01 [place] [address] [address] Sep, [place] [address] [address] Sep, Intractable migraine without aura and without status migrainosus G43.019 ; Allergic reaction to food, subsequent encounter T78.1XXD ; HTN (hypertension) I10 and Morbid obesity E66.01 [place] [address] [address] Jul, [facility] [place] [address] [address] Jul, Rash R21 and BMI 50.0-59.9, adult Z68.43 [place] [address] [address] 28 Jun, 2018 Hyperinsulinemia E16.1 and M enorrhagia with irregular cycle N92.1 [place] [address] [address] Jun, Primary osteoarthritis of le ft knee M17.12 [facility] [place] [address] [address] Jun, Sore throat J02.9 ; Acute na sopharyngitis J00 and BMI 50.0-59.9, adult Z68.43 [place] [address] [address] 05 Jun, 2018 Other chronic pain G89.29 ; Pain in left knee M25.562 ; Hyperinsulinemia E16.1 ; Menorrhagia with irregular cycle N92.1 and BMI 50.0- 59.9, adult Z68.43 [facility] [place] [address] [address] Apr, BMI 50.0-59.9, adult Z68.43 ; Dysuria R30.0 and Acute UTI N39.0 [facility] [address] [address] Apr, [place] [address] [address] Apr, Encounter for immunization Z 23 [place] [address] [address] 27 Mar, 2018 Acute midline low back pain without sciatica M54.5 ; Acute pain of left knee M25.562 and BMI 50.0-59.9, adult Z68.43 [place] [address] [address] 24 Mar, 2018 Intractable migraine without aura and without status migrainosus G43.019 and BMI 50.0-59.9, adult Z68.43 [place] [address] [address] 05 Mar, 2018 Bronchitis J40 ; Allergy to food Z91.018 and BMI 50.0-59.9, adult Z68.43 [facility] [address] [address] 01 Mar, 2018 Bronchitis J40 ; Wheezing on both sides of chest R06.2 and BMI 50.0-59.9, adult Z68.43 [place] [address] [address] Feb, Pain in right leg M79.604 [place] [address] [address] Jan, Pneumonia of left lung due t o infectious organism, unspecified part of lung J18.9 [place] [address] [address] Dec, Pneumonia due to Mycoplasma pneumoniae, unspecified laterality, unspecified part of lung J15.7 and BMI 50.0-59.9, adult Z68.43 [place] [address] [address] Dec, [place] [address] [address] Dec, Bronchitis J40 and BMI 50.0- 59.9, adult Z68.43 [place] [address] [address] November, Bronchitis J40 ; LLQ pain R1 0.32 and BMI 50.0-59.9, adult Z68.43 [place] [address] [address] November, Iron deficiency anemia due t o chronic blood loss D50.0 [place] [address] [address] November, [place] [address] [address] November, Iron deficiency anemia due t o chronic blood loss D50.0 ; DM neuro manif type II E11.49 ; Menorrhagia with irregular cycle N92.1 and BMI 50.0-59.9, adult Z68.43 [facility] [place] [address] [address] Oct, Sore throat J02.9 and Acute nasopharyngitis J00 [facility] [place] [address] [address] Oct, Left leg pain M79.605 and BM I 50.0-59.9, adult Z68.43 [facility] [place] [address] [address] Sep, Upper respiratory tract infe ction, unspecified type J06.9 and BMI 50.0-59.9, adult Z68.43 [place] [address] [address] Sep, Menorrhagia with irregular c ycle N92.1 ; Sleep apnea in adult G47.30 and BMI 50.0-59.9, adult Z68.43 [facility] [address] [address] Sep, [facility] [address] [address] Aug, [facility] [address] [address] Aug, [facility] [address] [address] Aug, [facility] [address] [address] Aug, LLQ pain R10.32 ; Irritable bowel syndrome with diarrhea K58.0 ; Change in bowel habits R19.4 ; Essential hypertension I10 and BMI 50.0-59.9, adult Z68.43 [facility] [address] [address] Aug, [facility] [address] [address] Aug, [facility] [place] [address] [address] Aug, Essential hypertension I10 a nd BMI 50.0-59.9, adult Z68.43 [facility] [address] [address] Aug, [facility] [address] [address] Aug, [facility] [address] [address] 02 Aug, 2017 Allergic disorder, initial e ncounter T78.40XA and BMI 50.0-59.9, adult Z68.43 [facility] [address] [place] [id number] [address] [place] [address] Jul, Other atopic dermatitis L20. 89 and BMI 50.0-59.9, adult Z68.43 [facility] [address] [address] Jul, Intractable migraine without aura and without status migrainosus G43.019 and BMI 50.0-59.9, adult Z68.43 [facility] [address] [address] Jun, DM neuro manif type II E11.4 9 ; Tension headache G44.209 ; Breast cancer screening Z12.31 and BMI 50.0-59.9, adult Z68.43 [place] [address] [address] Jun, Tension headache G44.209 ; B reast cancer screening Z12.31 ; BMI 50.0-59.9, adult Z68.43 and DM neuro manif type II E11.49 [facility] [address] [address] Apr, Dysuria R30.0 and Acute cyst itis with hematuria N30.01 [place] [address] [address] Apr, Hyperinsulinemia E16.1 [place] [address] [address] Mar, Acute non-recurrent maxillar y sinusitis J01.00 [place] [address] [address] Feb, Cellulitis of unspecified pa rt of limb L03.119 ; Spider bite wound, accidental or unintentional, subsequent encounter T63.301D and BMI 50.0-59.9, adult Z68.43 [facility] [address] [place] [id number] [address] [place] [address] Jan, [place] [address] [address] Jan, Urinary tract infection, sit e unspecified N39.0 [place] [address] [address] Jan, Acute gastritis without hemo rrhage, unspecified gastritis type K29.00 [place] [address] [address] Dec, Pain in right leg M79.604 [place] [address] [address] Dec, Hyperinsulinemia E16.1 and P ain in right leg M79.604 [place] [address] [address] Dec, Angioedema, initial encounte r T78.3XXA [place] [address] [address] Dec, Dental examination Z01.20 [place] [address] [address] Dec, [place] [address] [address] Dec, Burning with urination R30.0 and Acute cystitis with hematuria N30.01 [place] [address] [address] Oct, [place] [address] [address] Sep, [place] [address] [address] Aug, Hyperinsulinemia E16.1 [place] [address] [address] Aug, [place] [address] [address] Jul, [facility] [address] [id number] [address] [place] [address] Jul, Chondromalacia, left knee M9 4.262 and Acute lateral meniscus tear of left knee, initial encounter S83.282A [facility] [address] [id number] [address] [place] [address] Jul, [facility] [address] [facility] [id number] [address] [place] [address] Jun, Hyperinsulinemia E16.1 [facility] [address] [facility] [id number] [address] [place] [address] Jun, Dysuria R30.0 ; Back pain M5 4.9 ; Acute pain of left knee M25.[address] [facility] [address] [facility] [id number] [address] [place] [address] Jun, Acute non-recurrent maxillar y sinusitis J01.00 [facility] [address] [facility] [id number] [address] [place] [address] Jun, Dysuria R30.0 [facility] [address] [facility] [id number] [address] [place] [address] Jun, Dysuria R30.0 [facility] [address] [facility] [id number] [address] [place] [address] Jun, [facility] [address] [facility] [id number] [address] [place] [address] May, Dysuria R30.0 and Acute cyst itis with hematuria N30.01 [facility] [address] [id number] [address] [place] [address] May, Hyperinsulinemia E16.1 [facility] [address] [facility] [id number] [address] [place] [address] May, [facility] [address] [facility] [id number] [address] [place] [address] May, Sore throat J02.9 [place] [address] [id number] [address] [place] [address] 03 May, 2016 [facility] [address] [facility] [id number] [address] [place] [address] 08 Mar, [address] [facility] [address] [facility] [id number] [address] [place] [address] Jan, Hyperinsulinemia E16.1 [facility] [address] [facility] [id number] [address] [place] [address] Dec, DM neuro manif type II E11.[address] [facility] [address] [facility] [id number] [address] [place] [address] November, Hyperinsulinemia E16.[address] I10 [facility] [address] [facility] [id number] [address] [place] [address] Oct, [facility] [address] [facility] [id number] [address] [place] [address] Oct, Hyperinsulinemia E16.1 [facility] [address] [facility] [id number] [address] [place] [address] Oct, Pain, unspecified R52 [facility] [address] [facility] [id number] [address] [place] [address] Oct, Pain in right foot M79.671 a nd Hyperinsulinemia E16.1 [facility] [address] [facility] [id number] [address] [place] [address] 14 Oct, [address] [facility] [address] [facility] [id number] [address] [place] [address] Oct, Hyperinsulinemia E16.1 [facility] [address] [facility] [id number] [address] [place] [phone] 17 Aug, 2015 Hypertension I10 and Viral i llness B34.9 [facility] [address] [facility] [id number] [address] [place] [address] 18 May, 2015 Back pain M54.9 [facility] [address] [id number] [address] [place] [address], [place] [address] 14 Oct, 2014 [facility] [address] [id number] [address] [place] [address], [place] [address] 13 Oct, 2014 [facility] [address] [id number] [address] [place] [address], [place] [address] 30 Sep, 2014 [facility] [address] [id number] [address] [place] [address], [place] [address] 30 Sep, 2014 [facility] [address] [id number] [address] [place] [address], [place] [address] 17 Sep, 2014 [facility] [address] [id number] [address] [place] [address], [place] [address] 17 Sep, 2014 [facility] [address] [id number] [address] [place] [address], [place] [id number] Sep, [facility] [address] [id number] [address] [place] [address], [place] [address] Sep, 2014 [facility] [address] [id number] [address] [place] [address], [place] [address] Sep, [facility] [address] [id number] [address] [place] [address], [place] [address] Sep, [facility] [address] [id number] [address] [place] [address], [place] [address] Sep, [facility] [address] [id number] [address] [place] [address], [place] [address] Sep, 2014 [facility] [address] [id number] [address] [place] [address], [place] [address] Sep, 2014 [facility] [address] [id number] [address] [place] [address], [place] [address] Sep, 2014 [facility] [address] [id number] [address] [place] [address], [place] [address] Mar, [facility] [address] [id number] [address] [place] [address], [place] [address] Mar, [facility] [address] [id number] [facility] [place] [address] Feb, [facility] [address] [id number] [facility] [place] [address] Feb, [facility] [address] [id number] [address] [place] [address], [place] [address] Feb, [facility] [address] [id number] [address] [place] [address], [place] [address] Feb, [facility] [address] [id number] [address] [place] [address], [place] [address] Dec, [facility] [address] [id number] [address] [place] [address], [place] [address] Dec, [facility] [address] [id number] [address] [place] [address], [place] [address] Dec, [facility] [address] [id number] [address] [place] [address], [place] [address] Dec, [facility] [address] [id number] [address] [place] [address], [place] [address] Dec, [facility] [address] [id number] [address] [place] [address], [place] [address] Dec, [facility] [address] [id number] [address] [place] [address], [place] [address] Dec, [facility] [address] [id number] [address] [place] [address], [place] [address] Sep, [facility] [address] [id number] [address] [place] [address], [place] [address] Sep, [facility] [address] [id number] [address] [place] [address], [place] [address] Sep, [facility] [address] [id number] [address] [place] [address], [place] [address] Sep, [facility] [address] [id number] [address] [place] [address], [place] [address] Sep, [facility] [address] [id number] [address] [place] [address], [place] [address] Sep, [facility] [address] [id number] [address] [place] [address], [place] [address] Sep, [facility] [address] [id number] [address] [place] [address], [place] [address] Sep, [facility] [address] [id number] [address] [place] [address], [place] [address] Jul, [facility] [address] [id number] [address] [place] [address], [place] [address] Jul, [facility] [address] [id number] [address] [place] [address], [place] [address] Jun, [facility] [address] [id number] [address] [place] [address], [place] [address] Jun, [facility] [address] [id number] [address] [place] [address], [place] [address] May, [facility] [address] [id number] [address] [place] [address], [place] [address] May, [facility] [address] [id number] [address] [place] [address], [place] [address] May, [facility] [address] [id number] [address] [place] [address], [place] [address] May, [facility] [address] [id number] [address] [place] [address], [place] [address] May, [facility] [address] [id number] [address] [place] [address], [place] [address] May, [facility] [address] [id number] [address] [place] [address], [place] [address] 05 May, 2013 [facility] [address] [id number] [address] [place] [address], [place] [address] Apr, [facility] [address] [id number] [address] [place] [address], [place] [address] Apr, [facility] [address] [id number] [address] [place] [address], [place] [address] Apr, [facility] [address] [id number] [address] [place] [address], [place] [address] Apr, [facility] [address] [id number] [address] [place] [address], [place] [address] Apr, [facility] [address] [id number] [address] [place] [address], [place] [address] Apr, [facility] [address] [id number] [address] [place] [address], [place] [address] Mar, [facility] [address] [id number] [address] [place] [address], [place] [address] Feb, [facility] [address] [id number] [address] [place] [address], [place] [address] Jan, [facility] [address] [id number] [address] [place] [address], [place] [address] Jan, [facility] [address] [id number] [address] [place] [address], [place] [address] Jan, [facility] [address] [id number] [address] [place] [address], [place] [address] Dec, [facility] [address] [id number] [address] [place] [address], [place] [address] November, [facility] [address] [id number] [address] [place] [address], [place] [address] November, [facility] [address] [id number] [address] [place] [address], [place] [address] November, [facility] [address] [id number] [address] [place] [address], [place] [address] November, [facility] [address] [id number] [address] [place] [address], [place] [address] Oct, [facility] [address] [id number] [address] [place] [address], [place] [address] Aug, [facility] [address] [id number] [address] [place] [address], [place] [address] Aug, [facility] [address] [id number] [address] [place] [address], [place] [address] Aug, [facility] [address] [id number] [address] [place] [address], [place] [address] Aug, [facility] [address] [id number] [address] [place] [address], [place] [address] Aug, [facility] [address] [id number] [address] [place] [address], [place] [address] Aug, [facility] [address] [id number] [address] [place] [address], [place] [address] Jul, [facility] [address] [id number] [address] [place] [address], [place] [address] May, [facility] [address] [id number] [address] [place] [address], [place] [address] May, [facility] [address] [id number] [address] [place] [address], [place] [address] May, [facility] [address] [id number] [address] [place] [address], [place] [address] May, [facility] [address] [id number] [address] [place] [address] May, [facility] [address] [id number] [address] [place] [address], [place] [address] May, [facility] [address] [id number] [address] [place] [address], [place] [address] May, [facility] [address] [id number] [address] [place] [address], [place] [address] Apr, [facility] [address] [id number] [address] [place] [address], [place] [address] 30 Apr, 2012 [facility] [address] [id number] [address] [place] [address], [place] [address] Apr, [facility] [address] [id number] [address] [place] [address], [place] [address] Apr, [facility] [address] [id number] [address] [place] [address], [place] [address] Apr, [facility] [address] [id number] [address] [place] [address], [place] [address] Sep, [facility] [address] [id number] [address] [place] [address], [place] [address] 24 Aug, 2011 [facility] [address] [id number] [address] [place] [address], [place] [address] 16 Aug, 2011 [facility] [address] [id number] [address] [place] [address], [place] [address] Aug, [facility] [address] [id number] [address] [place] [address], [place] [address] Aug, [facility] [address] [id number] [address] [place] [address], [place] [address] Aug, [facility] [address] [id number] [address] [place] [address], [place] [address] Jul, [facility] [address] [id number] [address] [place] [address], [place] [address] Jul, [facility] [address] [id number] [address] [place] [address], [place] [address] Jul, [facility] [address] [id number] [address] [place] [address], [place] [address] Jun, [facility] [address] [id number] [address] [place] [address], [place] [address] Jun, [facility] [address] [id number] [address] [place] [address] Jun, [facility] [address] [facility] [id number] [address] [place] [address] May, [facility] [address] [facility] [id number] [address] [place] [address] Apr, [facility] [address] [facility] [id number] [address] [place] [address] Apr, [facility] [address] [facility] [id number] [address] [place] [address] Apr, [facility] [address] [facility] [id number] [address] [place] [address] Apr, IMMUNIZATIONS No Known Immunizations SOCIAL HISTORY Never Assessed REASON FOR VISIT PLAN OF CARE VITAL SIGNS Height 69 in 2013-01-09 Weight 329 lbs 2013-01-09 Temperature 98.8 degrees Fahrenheit 2013-01-09 Heart Rate 85 bpm 2013-01-09 Respiratory Rate 18 2013-01-09 Blood pressure systolic 140 mmHg 2013-01-09 Blood pressure diastolic 90 mmHg 2013-01-09 MEDICATIONS Unknown Medications RESULTS No Results PROCEDURES Procedure Date Ordered Result Body Site REMOVAL OF SKIN TAGS January 09, 2013 INSTRUCTIONS MEDICATIONS ADMINISTERED No Known Medications MEDICAL (GENERAL) HISTORY Type Description Date Medical History hypertension Medical History Sleep apnea in adult Surgical History x 3 Surgical History cholecystectomy Surgical History Chemical Stress Test, EKG, Echo 05/2016 Hospitalization History surgeries Hospitalization History UTI VC 05/2016
--- OUTSIDE RECORDS SUMMARY | 2020-02-22 15:09 | XMS REPORT ---
Author Author Jada KHAN [facility] Address [address] [place] [address] Care Team Providers Care Technologist Development Name Role Phone CARISA KHAN Unavailable PROBLEMS Type Condition ICD9-CM Code [id number] Code Onset Dates Condition S tatus SNOMED Code Problem Tension headache G44.209 Active 398 305813 Problem DM neuro manif type II E11.49 Active 19821532 Problem Irritable bowel syndrome with diarrhea K58.0 Active 875185278 Problem Intractable migraine without aura and without st atus migrainosus G43.019 Active 944020928 Problem Menorrhagia with irregular cycle N92.1 Active 036105398 Problem Sleep apnea in adult G47.30 Active 54623099 Problem Other chronic pain G89.29 Active 8 8629638 Problem Iron deficiency anemia due to chronic blood loss D 50.0 Active 170677835 Problem Migraine with aura and without status migrainosu s, not intractable G43.109 Active 7435438 Problem Obstructive sleep apnea syndrome G47.33 Active 38671919 Problem Seasonal allergic rhinitis due to pollen J30.1 Active 49223663 Problem Chronic tension-type headache, not intractable G44 .229 Active 125226854 Problem HTN (hypertension) I10 Active 3 9133956 Problem Allergy, food Z91.018 Active 852978 001 Problem Primary osteoarthritis of left knee M17.12 Active [id number] Problem Hyperinsulinemia E16.1 Active 834 70617 Problem Chronic venous insufficiency I87.2 A ctive 54305416 Problem Multiple allergies Z88.9 Active 6 99261518 Problem Migraine headache G43.909 Active 37 535323 Problem Localized osteoarthritis of left knee M17.12 Active 730088346 ALLERGIES No Information ENCOUNTERS Encounter Location Date Diagnosis [facility] [address] [facility] [id number] [address] [place] [address] Jan, Cellulitis of right lower le g L03.115 [place] [address] [address] 13 Jan, [address] [address] Jan, Cellulitis of right lower ex tremity L03.115 and Itching L29.[address] [address] Jan, [address] [address] Jan, Cutaneous abscess of right l ower limb L02.415 ; Cellulitis of right lower limb L03.115 ; Itching L29.9 ; Allergy, food Z91.018 ; Hyperinsulinemia E16.1 and Obstructive sleep apnea syndrome G47.[address] [address] Dec, [facility] [address] [address] Oct, Foreign body (FB) in soft ti ssue M79.[address] [address] Sep, HTN (hypertension) I10 [address] [address] Sep, Viral URI J06.9 ; Cough prod uctive of purulent sputum R05 and Exposure to influenza Z20.828 [facility] [address] [address] Sep, [facility] [address] [address] 14 Sep, 2019 Flu-like symptoms R68.[address] [address] 12 Sep, 2019 Primary osteoarthritis of le ft knee M17.12 and Acute medial meniscus tear of left knee, subsequent encounter S83.242D [facility] [address] [id number] [address] [place] [address] 15 Aug, 2019 Flu-like symptoms R68.89 [facility] [address] [id number] [address] [place] [address] 03 Aug, 2019 Sore throat J02.9 [facility] [address] [id number] [address] [place] [address] Jul, [facility] [address] [id number] [address] [place] [address] Jul, [facility] [address] [id number] [address] [place] [address] Jul, [facility] [address] [facility] [id number] [address] [place] [address] Jul, [facility] [address] [facility] [id number] [address] [place] [address] Jul, Segmental dysfunction of tho racic region M99.02 ; Segmental dysfunction of lumbar region M99.03 ; Segmental dysfunction of cervical region M99.01 and Chronic tension-type headache, not intractable G44.229 [facility] [address] [facility] [id number] [address] [place] [address] Jul, [facility] [address] [facility] [id number] [address] [place] [address] Jun, Localized osteoarthritis of left knee M17.12 [facility] [address] [id number] [address] [place] [address] Jun, Acute non-recurrent sinusiti s, unspecified location J01.90 [facility] [address] [facility] [id number] [address] [place] [address] Jun, [facility] [address] [facility] [id number] [address] [place] [address] Jun, Viral upper respiratory trac t infection J06.9 [facility] [address] [facility] [id number] [address] [place] [address] Jun, [facility] [address] [facility] [id number] [address] [place] [address] May, Prediabetes R73.03 and Iron deficiency anemia due to chronic blood loss D50.0 [facility] [address] [facility] [id number] [address] [place] [address] May, [facility] [address] [place] [id number] [address] [place] [address] May, Prediabetes R73.03 ; Left an terior knee pain M25.562 ; Encounter for immunization Z23 ; Migraine headache G43.909 ; Multiple allergies Z88.9 ; Snoring R06.83 and Iron deficiency anemia due to chronic blood loss D50.0 [facility] [address] [facility] [id number] [address] [place] [address] 16 May, 2019 Nonintractable headache, uns pecified chronicity pattern, unspecified headache type R51 and Sore throat J02.9 [facility] [address] [facility] [id number] [address] [place] [address] 15 Apr, 2019 [facility] [address] [place] [id number] [address] [place] [address] 14 Apr, 2019 Fever, unspecified fever cau se R50.9 and Chest congestion R09.89 [facility] [address] [facility] [id number] [address] [place] [address] 18 Mar, 2019 Abdominal pain R10.9 [facility] [address] [facility] [id number] [address] [place] [address] 16 Mar, 2019 Chronic venous insufficiency I87.2 [facility] [address] [facility] [id number] [address] [place] [address] Feb, [facility] [address] [facility] [id number] [address] [place] [address] Feb, [facility] [address] [address] Feb, [facility] [address] [address] Feb, Seasonal allergic rhinitis d ue to pollen J30.1 ; Cervicalgia M54.2 ; Pain in right leg M79.604 ; Morbid obesity E66.01 and Obstructive sleep apnea syndrome G47.33 [place] [address] [address] Jan, [place] [address] [address] Jan, [place] [address] [address] Jan, [place] [address] [address] Jan, Food allergy Z91.018 [place] [address] [address] Jan, Right ear pain H92.01 ; DM n euro manif type II E11.49 and Morbid obesity E66.01 [place] [address] [address] Dec, Exercise counseling Z71.82 [place] [address] [address] Dec, [place] [address] [address] Dec, Acute midline low back pain without sciatica M54.5 ; Migraine headache G43.909 ; Obstructive sleep apnea syndrome G47.33 ; Localized edema R60.0 and Morbid obesity E66.01 [facility] [address] [address] Dec, Migraine with aura and witho ut status migrainosus, not intractable G43.109 and Morbid obesity E66.01 [place] [address] [place] [id number] [place] [address] November, [facility] [address] [facility] [id number] [address] [place] [address] November, [facility] [address] [facility] [id number] [address] [place] [address] November, [facility] [address] [place] [id number] [place] [address] November, Pain of left lower leg M79.6 62 [facility] [address] [facility] [id number] [place] [address] November, Pain of left lower leg M79.6 62 and Candidiasis B37.9 [facility] [address] [facility] [id number] [place] [address] November, Left leg pain M79.605 [place] [address] [address] November, Pain in right leg M79.604 [facility] [address] [place] [id number] [place] [address] Oct, Left leg pain M79.605 ; Left leg swelling M79.89 and Morbid obesity E66.01 [facility] [address] [place] [id number] [place] [address] Oct, Bronchitis J40 ; HTN (hypert ension) I10 and Morbid obesity E66.01 [facility] [address] [place] [id number] [address] [place] [address] Oct, Sore throat J02.9 and Morbid obesity E66.01 [place] [address] [address] Oct, [facility] [address] [place] [id number] [address] [place] [address] Oct, Allergy, food Z91.018 ; Cand idiasis B37.9 and Morbid obesity E66.01 [place] [address] [address] Sep, [place] [address] [address] 04 Sep, 2018 Intractable migraine without aura and without status migrainosus G43.019 ; Allergic reaction to food, subsequent encounter T78.1XXD ; HTN (hypertension) I10 and Morbid obesity E66.01 [place] [address] [address] Jul, [facility] [address] [address] 30 Jul, 2018 Rash R21 and BMI 50.0-59.9, adult Z68.[address] [address] 28 Jun, 2018 Hyperinsulinemia E16.1 and M enorrhagia with irregular cycle N92.[address] [address] Jun, Primary osteoarthritis of le ft knee M17.12 [facility] [address] [address] 12 Jun, 2018 Sore throat J02.9 ; Acute na sopharyngitis J00 and BMI 50.0-59.9, adult Z68.[address] [address] 05 Jun, 2018 Other chronic pain G89.29 ; Pain in left knee M25.562 ; Hyperinsulinemia E16.1 ; Menorrhagia with irregular cycle N92.1 and BMI 50.0- 59.9, adult Z68.43 [facility] [address] [address] Apr, BMI 50.0-59.9, adult Z68.43 ; Dysuria R30.0 and Acute UTI N39.[address] [address] Apr, [facility] [address] [place] [id number] [address] [place] [address] Apr, Encounter for immunization Z 23 [facility] [address] [facility] [id number] [address] [place] [address] 27 Mar, 2018 Acute midline low back pain without sciatica M54.5 ; Acute pain of left knee M25.562 and BMI 50.0-59.9, adult Z68.43 [place] [address] [place] [id number] [address] [place] [address] 24 Mar, 2018 Intractable migraine without aura and without status migrainosus G43.019 and BMI 50.0-59.9, adult Z68.43 [place] [address] [place] [id number] [address] [place] [address] 05 Mar, 2018 Bronchitis J40 ; Allergy to food Z91.018 and BMI 50.0-59.9, adult Z68.43 [facility] [address] [place] [id number] [address] [place] [address] Mar, Bronchitis J40 ; Wheezing on both sides of chest R06.2 and BMI 50.0-59.9, adult Z68.43 [place] [address] [place] [id number] [address] [place] [address] Feb, Pain in right leg M79.604 [place] [address] [place] [id number] [address] [place] [address] Jan, Pneumonia of left lung due t o infectious organism, unspecified part of lung J18.9 [place] [address] [facility] [id number] [address] [place] [address] Dec, Pneumonia due to Mycoplasma pneumoniae, unspecified laterality, unspecified part of lung J15.7 and BMI 50.0-59.9, adult Z68.43 [facility] [address] [place] [id number] [address] [place] [address] Dec, [place] [address] [address] Dec, Bronchitis J40 and BMI 50.0- 59.9, adult Z68.43 [place] [address] [address] November, Bronchitis J40 ; LLQ pain R1 0.32 and BMI 50.0-59.9, adult Z68.43 [place] [address] [address] November, Iron deficiency anemia due t o chronic blood loss D50.[address] [address] November, [place] [address] [address] November, Iron deficiency anemia due t o chronic blood loss D50.0 ; DM neuro manif type II E11.49 ; Menorrhagia with irregular cycle N92.1 and BMI 50.0-59.9, adult Z68.43 [facility] [address] [address] Oct, Sore throat J02.9 and Acute nasopharyngitis J00 [facility] [address] [address] Oct, Left leg pain M79.605 and BM I 50.0-59.9, adult Z68.43 [facility] [address] [address] Sep, Upper respiratory tract infe ction, unspecified type J06.9 and BMI 50.0-59.9, adult Z68.43 [place] [address] [address] 08 Sep, 2017 Menorrhagia with irregular c ycle N92.1 ; Sleep apnea in adult G47.30 and BMI 50.0-59.9, adult Z68.43 [place] [address] [place] [id number] [address] [place] [address] Sep, [facility] [address] [address] Aug, [facility] [address] [place] [id number] [address] [place] [address] Aug, [facility] [address] [address] Aug, [facility] [address] [place] [id number] [place] [address] Aug, LLQ pain R10.32 ; Irritable bowel syndrome with diarrhea K58.0 ; Change in bowel habits R19.4 ; Essential hypertension I10 and BMI 50.0-59.9, adult Z68.43 [place] [address] [address] Aug, [facility] [address] [address] Aug, [facility] [address] [address] Aug, Essential hypertension I10 a nd BMI 50.0-59.9, adult Z68.43 [facility] [address] [place] [id number] [address] [place] [address] Aug, [facility] [address] [place] [id number] [address] [place] [address] Aug, [facility] [address] [place] [id number] [address] [place] [address] 02 Aug, 2017 Allergic disorder, initial e ncounter T78.40XA and BMI 50.0-59.9, adult Z68.43 [facility] [address] [place] [id number] [address] [place] [address] Jul, Other atopic dermatitis L20. 89 and BMI 50.0-59.9, adult Z68.43 [facility] [address] [place] [id number] [address] [place] [address] 16 Jul, 2017 Intractable migraine without aura and without status migrainosus G43.019 and BMI 50.0-59.9, adult Z68.43 [facility] [address] [address] Jun, DM neuro manif type II E11.4 9 ; Tension headache G44.209 ; Breast cancer screening Z12.31 and BMI 50.0-59.9, adult Z68.43 [facility] [address] [address] Jun, Tension headache G44.209 ; B reast cancer screening Z12.31 ; BMI 50.0-59.9, adult Z68.43 and DM neuro manif type II E11.49 [facility] [address] [address] Apr, Dysuria R30.0 and Acute cyst itis with hematuria N30.01 [place] [address] [address] Apr, Hyperinsulinemia E16.1 [place] [address] [address] Mar, Acute non-recurrent maxillar y sinusitis J01.00 [place] [address] [address] Feb, Cellulitis of unspecified pa rt of limb L03.119 ; Spider bite wound, accidental or unintentional, subsequent encounter T63.301D and BMI 50.0-59.9, adult Z68.43 [facility] [address] [address] Jan, [place] [address] [address] Jan, Urinary tract infection, sit e unspecified N39.0 [place] [address] [address] Jan, Acute gastritis without hemo rrhage, unspecified gastritis type K29.00 [place] [address] [place] [id number] [place] [address] Dec, Pain in right leg M79.604 [place] [address] [address] Dec, Hyperinsulinemia E16.1 and P ain in right leg M79.604 [place] [address] [address] Dec, Angioedema, initial encounte r T78.3XXA [place] [address] [address] 15 Dec, 2016 Dental examination Z01.20 [place] [address] [address] Dec, [place] [address] [address] Dec, Burning with urination R30.0 and Acute cystitis with hematuria N30.01 [place] [address] [address] Oct, [place] [address] [address] Sep, [place] [address] [address] Aug, Hyperinsulinemia E16.1 [place] [address] [address] Aug, [place] [address] [address] Jul, [place] [address] [address] Jul, Chondromalacia, left knee M9 4.262 and Acute lateral meniscus tear of left knee, initial encounter S83.282A [facility] [address] [id number] [address] [place] [address] Jul, [facility] [address] [id number] [address] [place] [address] Jun, Hyperinsulinemia E16.1 [facility] [address] [id number] [address] [place] [address] Jun, Dysuria R30.0 ; Back pain M5 4.9 ; Acute pain of left knee M25.562 and Hyperinsulinemia E16.1 [facility] [address] [facility] [id number] [address] [place] [address] Jun, Acute non-recurrent maxillar y sinusitis J01.00 [facility] [address] [facility] [id number] [address] [place] [address] Jun, Dysuria R30.0 [facility] [address] [facility] [id number] [address] [place] [address] Jun, Dysuria R30.0 [facility] [address] [facility] [id number] [address] [place] [address] Jun, [facility] [address] [facility] [id number] [address] [place] [address] May, Dysuria R30.0 and Acute cyst itis with hematuria N30.01 [facility] [address] [id number] [address] [place] [address] May, Hyperinsulinemia E16.1 [facility] [address] [id number] [address] [place] [address] May, [facility] [address] [facility] [id number] [address] [place] [address] May, Sore throat J02.9 [facility] [address] [facility] [id number] [address] [place] [address] May, [facility] [address] [facility] [id number] [address] [place] [address] 08 Mar, 2016 Hyperinsulinemia E16.1 [facility] [address] [facility] [id number] [address] [place] [address] 28 Jan, 2016 Hyperinsulinemia E16.1 [facility] [address] [facility] [id number] [address] [place] [address] Dec, DM neuro manif type II E11.4 9 [facility] [address] [facility] [id number] [address] [place] [address] November, Hyperinsulinemia E16.1 and H ypertension I10 [facility] [address] [place] [address] Oct, [facility] [address] [address] Oct, Hyperinsulinemia E16.1 [facility] [address] [address] Oct, Pain, unspecified R52 [facility] [address] [place] [id number] [address] [place] [address] 14 Oct, 2015 Pain in right foot M79.671 a nd Hyperinsulinemia E16.1 [facility] [address] [place] [id number] [address] [place] [address] 14 Oct, 2015 Hyperinsulinemia E16.1 [facility] [address] [place] [id number] [address] [place] [address] Oct, Hyperinsulinemia E16.1 [facility] [address] [place] [id number] [address] [place] [address] 17 Aug, 2015 Hypertension I10 and Viral i llness B34.9 [facility] [address] [place] [address] 18 May, 2015 Back pain M54.9 [facility] [address] [place] [address] 14 Oct, 2014 [facility] [address] [place] [address] 13 Oct, 2014 [facility] [address] [id number] [address] [place] [address], [place] [address] 30 Sep, 2014 [facility] [address] [id number] [address] [place] [address], [place] [address] Sep, [facility] [address] [id number] [address] [place] [address], [place] [address] Sep, [facility] [address] [id number] [address] [place] [address], [place] [address] Sep, [facility] [address] [id number] [address] [place] [address], [place] [address] Sep, [facility] [address] [id number] [address] [place] [address], [place] [address] Sep, [facility] [address] [id number] [address] [place] [address], [place] [address] Sep, [facility] [address] [id number] [address] [place] [address], [place] [address] Sep, [facility] [address] [id number] [address] [place] [address], [place] [address] Sep, [facility] [address] [id number] [address] [place] [address], [place] [address] Sep, [facility] [address] [id number] [address] [place] [address], [place] [address] Sep, [facility] [address] [id number] [address] [place] [address], [place] [address] Sep, [facility] [address] [id number] [address] [place] [address], [place] [address] Mar, [facility] [address] [id number] [address] [place] [address], [place] [address] Mar, [facility] [address] [id number] [address] [place] [address], [place] [address] Feb, [facility] [address] [id number] [address] [place] [address] Feb, [facility] [address] [id number] [address] [place] [address] Feb, [facility] [address] [id number] [address] [place] [address] Feb, [facility] [address] [id number] [address] [place] [address], [place] [address] Dec, [facility] [address] [id number] [address] [place] [address] Dec, [facility] [address] [id number] [address] [place] [address], [place] [address] Dec, [facility] [address] [id number] [address] [place] [address], [place] [address] Dec, [facility] [address] [id number] [address] [place] [address], [place] [address] Dec, [facility] [address] [id number] [address] [place] [address], [place] [address] Dec, [facility] [address] [id number] [address] [place] [address], [place] [address] Dec, [facility] [address] [id number] 87 [place] [address], [place] [address] Sep, [facility] [address] [id number] [address] [place] [address], [place] [address] Sep, [facility] [address] [id number] [address] [place] [address], [place] [address] Sep, [facility] [address] [id number] [address] [place] [address], [place] [address] Sep, [facility] [address] [id number] [address] [place] [address], [place] [address] Sep, [facility] [address] [id number] [address] [address] Sep, [facility] [address] [id number] [address] [place] [address], [place] [address] Sep, [facility] [address] [id number] [address] [place] [address], [place] [address] Sep, [facility] [address] [id number] [address] [place] [address], [place] [address] Jul, [facility] [address] [id number] [address] [place] [address] Jul, [facility] [address] [id number] [address] [place] [address], [place] [address] Jun, [facility] [address] [id number] [address] [place] [address] Jun, [facility] [address] [id number] [address] [place] [address], [place] [address] May, [facility] [address] [id number] [address] [place] [address] May, [facility] [address] [id number] [address] [place] [address] May, [facility] [address] [id number] [address] [place] [address], [place] [address] May, [facility] [address] [id number] [address] [place] [address] May, [facility] [address] [id number] [address] [place] [address] May, [facility] [address] [id number] [address] [place] [address], [place] [address] 05 May, 2013 [facility] [address] [id number] [address] [place] [address] Apr, [facility] [address] [id number] [address] [place] [address] Apr, [facility] [address] [id number] [address] [place] [address], [place] [address] Apr, [facility] [address] [id number] [address] [place] [address], [place] [address] Apr, [facility] [address] [id number] [address] [place] [address], [place] [address] Apr, [facility] [address] [id number] [address] [place] [address], [place] [address] Apr, [facility] [address] [id number] [address] [place] [address], [place] [address] Mar, [facility] [address] [id number] [address] [place] [address], [place] [address] Feb, [facility] [address] [id number] [address] [place] [address], [place] [address] Jan, [facility] [address] [id number] [address] [place] [address], [place] [address] Jan, [facility] [address] [id number] [address] [place] [address], [place] [address] Jan, [facility] [address] [id number] [address] [place] [address], [place] [address] Dec, [facility] [address] [id number] [address] [place] [address], [place] [address] November, [facility] [address] [id number] [address] [place] [address], [place] [address] November, [facility] [address] [id number] [address] [place] [address], [place] [address] November, [facility] [address] [id number] [address] [place] [address], [place] [address] November, [facility] [address] [id number] [address] [place] [address], [place] [address] Oct, [facility] [address] [id number] [address] [place] [address], [place] [address] Aug, [facility] [address] [id number] [address] [place] [address], [place] [address] Aug, [facility] [address] [id number] [address] [place] [address], [place] [address] Aug, [facility] [address] [id number] [address] [place] [address], [place] [address] Aug, [facility] [address] [id number] [address] [place] [address], [place] [address] Aug, [facility] [address] [id number] [address] [place] [address], [place] [address] Aug, [facility] [address] [id number] [address] [place] [address], [place] [address] Jul, [facility] [address] [id number] [address] [place] [address], [place] [address] May, [facility] [address] [id number] [address] [place] [address], [place] [address] May, [facility] [address] [id number] [address] [place] [address], [place] [address] May, [facility] [address] [id number] [address] [place] [address], [place] [address] May, [facility] [address] [id number] [address] [place] [address], [place] [address] May, [facility] [address] [id number] [address] [place] [address], [place] [address] May, [facility] [address] [id number] [address] [place] [address], [place] [address] May, [facility] [address] [id number] [address] [place] [address], [place] [address] Apr, [facility] [address] [id number] [address] [place] [address], [place] [address] Apr, [facility] [address] [id number] [address] [place] [address], [place] [address] 30 Apr, 2012 [facility] [address] [id number] [address] [place] [address], [place] [address] Apr, [facility] [address] [id number] [address] [place] [address], [place] [address] Apr, [facility] [address] [id number] [address] [place] [address], [place] [address] Sep, [facility] [address] [id number] [address] [place] [address], [place] [address] 24 Aug, 2011 [facility] [address] [id number] [address] [place] [address], [place] [address] 16 Aug, 2011 [facility] [address] [id number] [address] [place] [address], [place] [address] Aug, [facility] [address] [id number] [address] [place] [address], [place] [address] Aug, [facility] [address] [id number] [address] [place] [address], [place] [address] Aug, [facility] [address] [id number] [address] [place] [address], [place] [address] Jul, [facility] [address] [id number] [address] [place] [address], [place] [address] Jul, [facility] [address] [id number] [address] [place] [address], [place] [address] Jul, [facility] [address] [id number] [address] [place] [address], [place] [address] Jun, [facility] [address] [id number] [address] [place] [address], [place] [address] Jun, [facility] [address] [id number] [address] [place] [address], [place] [address] Jun, [facility] [address] [id number] [address] [place] [address], [place] [address] May, [facility] [address] [facility] [id number] [address] [place] [address] Apr, [facility] [address] [facility] [id number] [address] [place] [address] Apr, [facility] [address] [facility] [id number] [address] [place] [address] Apr, [facility] [address] [facility] [id number] [address] [place] [address] Apr, IMMUNIZATIONS No Known Immunizations SOCIAL HISTORY [...]
--- OUTSIDE RECORDS SUMMARY | 2020-02-22 15:09 | XMS REPORT ---
Author Author Jada KHAN Organization [facility] Address [address] [place] [address] Care Team Providers Care Nitrate Operator Name Role Phone CARISA KHAN Unavailable PROBLEMS Type Condition ICD9-CM Code [id number] Code Onset Dates Condition S tatus SNOMED Code Problem Tension headache G44.209 Active 398 561463 Problem DM neuro manif type II E11.49 Active 70194207 Problem Irritable bowel syndrome with diarrhea K58.0 Active 212234497 Problem Intractable migraine without aura and without st atus migrainosus G43.019 Active 785199828 Problem Menorrhagia with irregular cycle N92.1 Active 156545769 Problem Sleep apnea in adult G47.30 Active 83431813 Problem Other chronic pain G89.29 Active 8 1490661 Problem Iron deficiency anemia due to chronic blood loss D 50.0 Active 260707919 Problem Migraine with aura and without status migrainosu s, not intractable G43.109 Active 9670094 Problem Obstructive sleep apnea syndrome G47.33 Active 92263961 Problem Seasonal allergic rhinitis due to pollen J30.1 Active 69114460 Problem Chronic tension-type headache, not intractable G44 .229 Active 454514981 Problem HTN (hypertension) I10 Active 3 5149883 Problem Allergy, food Z91.018 Active 077979 001 Problem Primary osteoarthritis of left knee M17.12 Active [id number] Problem Hyperinsulinemia E16.1 Active 834 46156 Problem Chronic venous insufficiency I87.2 A ctive 71113861 Problem Multiple allergies Z88.9 Active 6 84586128 Problem Migraine headache G43.909 Active 37 315047 Problem Localized osteoarthritis of left knee M17.12 Active 716185684 ALLERGIES No Information ENCOUNTERS Encounter Location Date Diagnosis [facility] [address] [facility] [id number] [address] [place] [address] Jan, Right leg swelling M79.[address] [address] 15 Jan, 2020 Cellulitis of right lower le g L03.[address] [address] Jan, [address] [address] 08 Jan, 2020 Cellulitis of right lower ex tremity L03.115 and Itching L29.[address] [address] Jan, [address] [address] Jan, Cutaneous abscess of right l ower limb L02.415 ; Cellulitis of right lower limb L03.115 ; Itching L29.9 ; Allergy, food Z91.018 ; Hyperinsulinemia E16.1 and Obstructive sleep apnea syndrome G47.[address] [address] Dec, [facility] [place] [address] [address] Oct, Foreign body (FB) in soft ti ssue M79.[address] [address] Sep, HTN (hypertension) I10 [address] [address] Sep, Viral URI J06.9 ; Cough prod uctive of purulent sputum R05 and Exposure to influenza Z20.828 [facility] [place] [address] [address] Sep, [facility] [place] [address] [address] 14 Sep, 2019 Flu-like symptoms R68.89 [place] [id number] [address] [place] [address] Sep, Primary osteoarthritis of le ft knee M17.12 and Acute medial meniscus tear of left knee, subsequent encounter S83.242D [facility] [address] [id number] [address] [place] [address] 15 Aug, 2019 Flu-like symptoms R68.89 [facility] [address] [id number] [address] [place] [address] 03 Aug, 2019 Sore throat J02.9 [facility] [address] [id number] [address] [place] [address] Jul, [facility] [address] [id number] [address] [place] [address] Jul, [facility] [address] [id number] [address] [place] [address] Jul, [facility] [address] [id number] [address] [place] [address] Jul, [facility] [address] [id number] [address] [place] [address] Jul, Segmental dysfunction of tho racic region M99.02 ; Segmental dysfunction of lumbar region M99.03 ; Segmental dysfunction of cervical region M99.01 and Chronic tension-type headache, not intractable G44.229 [facility] [address] [id number] [address] [place] [address] Jul, [facility] [address] [id number] [address] [place] [address] Jun, Localized osteoarthritis of left knee M17.12 [facility] [address] [id number] [address] [place] [address] Jun, Acute non-recurrent sinusiti s, unspecified location J01.90 [facility] [address] [id number] [address] [place] [address] Jun, [facility] [address] [place] [address] Jun, Viral upper respiratory trac t infection J06.9 [facility] [address] [place] [id number] [address] [place] [address] Jun, [place] [address] [place] [id number] [address] [place] [address] May, Prediabetes R73.03 and Iron deficiency anemia due to chronic blood loss D50.0 [facility] [address] [place] [id number] [address] [place] [address] May, [place] [address] [address] May, Prediabetes R73.03 ; Left an terior knee pain M25.562 ; Encounter for immunization Z23 ; Migraine headache G43.909 ; Multiple allergies Z88.9 ; Snoring R06.83 and Iron deficiency anemia due to chronic blood loss D50.0 [facility] [address] [place] [address] 16 May, 2019 Nonintractable headache, uns pecified chronicity pattern, unspecified headache type R51 and Sore throat J02.9 [facility] [address] [place] [id number] [address] [place] [address] 15 Apr, 2019 [place] [address] [place] [address] 14 Apr, 2019 Fever, unspecified fever cau se R50.9 and Chest congestion R09.89 [facility] [address] [place] [id number] [address] [place] [address] 18 Mar, 2019 Abdominal pain R10.9 [place] [address] [place] [id number] [address] [place] [address] 16 Mar, 2019 Chronic venous insufficiency I87.2 [place] [address] [place] [id number] [address] [place] [address] Feb, [facility] [address] [place] [id number] [address] [place] [address] Feb, [facility] [address] [facility] [id number] [address] [place] [address] Feb, [facility] [address] [facility] [id number] [address] [place] [address] Feb, Seasonal allergic rhinitis d ue to pollen J30.1 ; Cervicalgia M54.2 ; Pain in right leg M79.604 ; Morbid obesity E66.01 and Obstructive sleep apnea syndrome G47.33 [facility] [address] [facility] [id number] [address] [place] [address] Jan, [facility] [address] [facility] [id number] [address] [place] [address] Jan, [place] [address] [facility] [id number] [address] [place] [address] Jan, [place] [address] [place] [id number] [address] [place] [address] Jan, Food allergy Z91.018 [facility] [address] [facility] [id number] [address] [place] [address] Jan, Right ear pain H92.01 ; DM n euro manif type II E11.49 and Morbid obesity E66.01 [place] [id number] [facility] [id number] [address] [place] [address] Dec, Exercise counseling Z71.82 [facility] [address] [facility] [id number] [address] [place] [address] Dec, [facility] [address] [facility] [id number] [address] [place] [address] Dec, Acute midline low back pain without sciatica M54.5 ; Migraine headache G43.909 ; Obstructive sleep apnea syndrome G47.33 ; Localized edema R60.0 and Morbid obesity E66.01 [facility] [address] [facility] [id number] [address] [place] [address] Dec, Migraine with aura and witho ut status migrainosus, not intractable G43.109 and Morbid obesity E66.01 [facility] [address] [facility] [id number] [address] [place] [address] November, [facility] [address] [facility] [id number] [address] [place] [address] November, [facility] [address] [place] [id number] [address] [place] [address] November, [facility] [address] [facility] [id number] [address] [place] [address] November, Pain of left lower leg M79.6 [address] [place] [address] [place] [id number] [place] [address] November, Pain of left lower leg M79.6 62 and Candidiasis B37.9 [facility] [address] [place] [id number] [address] [place] [address] November, Left leg pain M79.605 [place] [address] [place] [id number] [place] [address] November, Pain in right leg M79.604 [place] [address] [place] [id number] [place] [address] Oct, Left leg pain M79.605 ; Left leg swelling M79.89 and Morbid obesity E66.01 [facility] [address] [place] [id number] [address] [place] [address] Oct, Bronchitis J40 ; HTN (hypert ension) I10 and Morbid obesity E66.01 [facility] [address] [facility] [id number] [address] [place] [address] Oct, Sore throat J02.9 and Morbid obesity E66.01 [facility] [address] [place] [id number] [address] [place] [address] Oct, [facility] [address] [place] [id number] [address] [place] [address] Oct, Allergy, food Z91.018 ; Cand idiasis B37.9 and Morbid obesity E66.01 [place] [address] [address] Sep, [place] [address] [address] Sep, Intractable migraine without aura and without status migrainosus G43.019 ; Allergic reaction to food, subsequent encounter T78.1XXD ; HTN (hypertension) I10 and Morbid obesity E66.01 [place] [address] [address] Jul, [facility] IN [place] [address] [address] Jul, Rash R21 and BMI 50.0-59.9, adult Z68.43 [place] [address] [address] 28 Jun, 2018 Hyperinsulinemia E16.1 and M enorrhagia with irregular cycle N92.1 [place] [address] [address] Jun, Primary osteoarthritis of le ft knee M17.12 [facility] IN [place] [address] [address] Jun, Sore throat J02.9 ; Acute na sopharyngitis J00 and BMI 50.0-59.9, adult Z68.43 [place] [address] [address] 05 Jun, 2018 Other chronic pain G89.29 ; Pain in left knee M25.562 ; Hyperinsulinemia E16.1 ; Menorrhagia with irregular cycle N92.1 and BMI 50.0- 59.9, adult Z68.43 [facility] [place] [address] [address] Apr, BMI 50.0-59.9, adult Z68.43 ; Dysuria R30.0 and Acute UTI N39.0 [facility] [address] [address] Apr, [place] [address] [address] Apr, Encounter for immunization Z 23 [place] [address] [address] 27 Mar, 2018 Acute midline low back pain without sciatica M54.5 ; Acute pain of left knee M25.562 and BMI 50.0-59.9, adult Z68.43 [place] [address] [address] 24 Mar, 2018 Intractable migraine without aura and without status migrainosus G43.019 and BMI 50.0-59.9, adult Z68.43 [place] [address] [address] 05 Mar, 2018 Bronchitis J40 ; Allergy to food Z91.018 and BMI 50.0-59.9, adult Z68.43 [facility] [address] [address] 01 Mar, 2018 Bronchitis J40 ; Wheezing on both sides of chest R06.2 and BMI 50.0-59.9, adult Z68.43 [place] [address] [address] Feb, Pain in right leg M79.604 [place] [address] [address] Jan, Pneumonia of left lung due t o infectious organism, unspecified part of lung J18.9 [place] [address] [address] Dec, Pneumonia due to Mycoplasma pneumoniae, unspecified laterality, unspecified part of lung J15.7 and BMI 50.0-59.9, adult Z68.43 [place] [address] [address] Dec, [place] [address] [address] Dec, Bronchitis J40 and BMI 50.0- 59.9, adult Z68.43 [place] [address] [address] November, Bronchitis J40 ; LLQ pain R1 0.32 and BMI 50.0-59.9, adult Z68.43 [place] [address] [address] November, Iron deficiency anemia due t o chronic blood loss D50.0 [place] [address] [address] November, [place] [address] [address] November, Iron deficiency anemia due t o chronic blood loss D50.0 ; DM neuro manif type II E11.49 ; Menorrhagia with irregular cycle N92.1 and BMI 50.0-59.9, adult Z68.43 [facility] [place] [address] [address] Oct, Sore throat J02.9 and Acute nasopharyngitis J00 [facility] [place] [address] [address] Oct, Left leg pain M79.605 and BM I 50.0-59.9, adult Z68.43 [facility] [place] [address] [address] Sep, Upper respiratory tract infe ction, unspecified type J06.9 and BMI 50.0-59.9, adult Z68.43 [place] [address] [address] Sep, Menorrhagia with irregular c ycle N92.1 ; Sleep apnea in adult G47.30 and BMI 50.0-59.9, adult Z68.43 [facility] [address] [address] Sep, [facility] [address] [address] Aug, [facility] [address] [address] Aug, [facility] [address] [address] Aug, [facility] [address] [address] Aug, LLQ pain R10.32 ; Irritable bowel syndrome with diarrhea K58.0 ; Change in bowel habits R19.4 ; Essential hypertension I10 and BMI 50.0-59.9, adult Z68.43 [facility] [address] [address] Aug, [facility] [address] [address] Aug, [facility] [place] [address] [address] Aug, Essential hypertension I10 a nd BMI 50.0-59.9, adult Z68.43 [facility] [address] [address] Aug, [facility] [address] [address] Aug, [facility] [address] [address] 02 Aug, 2017 Allergic disorder, initial e ncounter T78.40XA and BMI 50.0-59.9, adult Z68.43 [facility] [address] [place] [id number] [address] [place] [address] Jul, Other atopic dermatitis L20. 89 and BMI 50.0-59.9, adult Z68.43 [facility] [address] [address] Jul, Intractable migraine without aura and without status migrainosus G43.019 and BMI 50.0-59.9, adult Z68.43 [facility] [address] [address] Jun, DM neuro manif type II E11.4 9 ; Tension headache G44.209 ; Breast cancer screening Z12.31 and BMI 50.0-59.9, adult Z68.43 [place] [address] [address] Jun, Tension headache G44.209 ; B reast cancer screening Z12.31 ; BMI 50.0-59.9, adult Z68.43 and DM neuro manif type II E11.49 [facility] [address] [address] Apr, Dysuria R30.0 and Acute cyst itis with hematuria N30.01 [place] [address] [address] Apr, Hyperinsulinemia E16.1 [place] [address] [address] Mar, Acute non-recurrent maxillar y sinusitis J01.00 [place] [address] [address] Feb, Cellulitis of unspecified pa rt of limb L03.119 ; Spider bite wound, accidental or unintentional, subsequent encounter T63.301D and BMI 50.0-59.9, adult Z68.43 [facility] [address] [place] [id number] [address] [place] [address] Jan, [place] [address] [address] Jan, Urinary tract infection, sit e unspecified N39.0 [place] [address] [address] Jan, Acute gastritis without hemo rrhage, unspecified gastritis type K29.00 [place] [address] [address] Dec, Pain in right leg M79.604 [place] [address] [address] Dec, Hyperinsulinemia E16.1 and P ain in right leg M79.604 [place] [address] [address] Dec, Angioedema, initial encounte r T78.3XXA [place] [address] [address] Dec, Dental examination Z01.20 [place] [address] [address] Dec, [place] [address] [address] Dec, Burning with urination R30.0 and Acute cystitis with hematuria N30.01 [place] [address] [address] Oct, [place] [address] [address] Sep, [place] [address] [address] Aug, Hyperinsulinemia E16.1 [place] [address] [address] Aug, [place] [address] [address] Jul, [facility] [address] [id number] [address] [place] [address] Jul, Chondromalacia, left knee M9 4.262 and Acute lateral meniscus tear of left knee, initial encounter S83.282A [facility] [address] [id number] [address] [place] [address] Jul, [facility] [address] [facility] [id number] [address] [place] [address] Jun, Hyperinsulinemia E16.1 [facility] [address] [facility] [id number] [address] [place] [address] Jun, Dysuria R30.0 ; Back pain M5 4.9 ; Acute pain of left knee M25.562 and Hyperinsulinemia E16.1 [facility] [address] [facility] [id number] [address] [place] [address] Jun, Acute non-recurrent maxillar y sinusitis J01.00 [facility] [address] [facility] [id number] [address] [place] [address] Jun, Dysuria R30.0 [facility] [address] [facility] [id number] [address] [place] [address] Jun, Dysuria R30.0 [facility] [address] [facility] [id number] [address] [place] [address] Jun, [facility] [address] [facility] [id number] [address] [place] [address] May, Dysuria R30.0 and Acute cyst itis with hematuria N30.01 [facility] [address] [id number] [address] [place] [address] May, Hyperinsulinemia E16.1 [facility] [address] [facility] [id number] [address] [place] [address] May, [facility] [address] [facility] [id number] [address] [place] [address] May, Sore throat J02.9 [place] [address] [id number] [address] [place] [address] 03 May, 2016 [facility] [address] [facility] [id number] [address] [place] [address] 08 Mar, 2016 Hyperinsulinemia E16.1 [facility] [address] [facility] [id number] [address] [place] [address] Jan, Hyperinsulinemia E16.1 [facility] [address] [facility] [id number] [address] [place] [address] Dec, DM neuro manif type II E11.4 9 [facility] [address] [facility] [id number] [address] [place] [address] November, Hyperinsulinemia E16.1 and H ypertension I10 [facility] [address] [facility] [id number] [address] [place] [address] Oct, [facility] [address] [facility] [id number] [address] [place] [address] Oct, Hyperinsulinemia E16.1 [facility] [address] [facility] [id number] [address] [place] [address] Oct, Pain, unspecified R52 [facility] [address] [facility] [id number] [address] [place] [address] Oct, Pain in right foot M79.671 a nd Hyperinsulinemia E16.1 [facility] [address] [facility] [id number] [address] [place] [address] 14 Oct, 2015 Hyperinsulinemia E16.1 [facility] [address] [facility] [id number] [address] [place] [address] Oct, Hyperinsulinemia E16.1 [facility] [address] [facility] [id number] [address] [place] [address] 17 Aug, 2015 Hypertension I10 and Viral i llness B34.9 [facility] [address] [facility] [id number] [address] [place] [address] 18 May, 2015 Back pain M54.9 [facility] [address] [id number] [address] [place] [address], [place] [address] 14 Oct, 2014 [facility] [address] [id number] [address] [place] [address], [place] [address] 13 Oct, 2014 [facility] [address] [id number] [address] [place] [address], [place] [address] 30 Sep, 2014 [facility] [address] [id number] [address] [place] [address], [place] [address] 30 Sep, 2014 [facility] [address] [id number] [address] [place] [address], [place] [address] 17 Sep, 2014 [facility] [address] [id number] [address] [place] [address], [place] [address] 17 Sep, 2014 [facility] [address] [id number] [address] [place] [address], [place] [address] Sep, [facility] [address] [id number] [address] [place] [address], [place] [address] Sep, 2014 [facility] [address] [id number] [address] [place] [address], [place] [address] Sep, [facility] [address] [id number] [address] [place] [address], [place] [address] Sep, [facility] [address] [id number] [address] [place] [address], [place] [address] Sep, [facility] [address] [id number] [address] [place] [address], [place] [address] Sep, 2014 [facility] [address] [id number] [address] [place] [address], [place] [address] Sep, 2014 [facility] [address] [id number] [address] [place] [address], [place] [address] Sep, 2014 [facility] [address] [id number] [address] [place] [address], [place] [address] Mar, [facility] [address] [id number] [address] [place] [address], [place] [address] Mar, [facility] [address] [id number] [facility] [place] [address] Feb, [facility] [address] [id number] [facility] [facility] [address] Feb, [facility] [address] [id number] [address] [place] [address], [place] [address] Feb, [facility] [address] [id number] [address] [place] [address], [place] [address] Feb, [facility] [address] [id number] [address] [place] [address], [place] [address] Dec, [facility] [address] [id number] [address] [place] [address], [place] [address] Dec, [facility] [address] [id number] [address] [place] [address], [place] [address] Dec, [facility] [address] [id number] [address] [place] [address], [place] [address] Dec, [facility] [address] [id number] [address] [place] [address], [place] [address] Dec, [facility] [address] [id number] [address] [place] [address], [place] [address] Dec, [facility] [address] [id number] [address] [place] [address], [place] [address] Dec, [facility] [address] [id number] [address] [place] [address], [place] [address] Sep, [facility] [address] [id number] [address] [place] [address], [place] [address] Sep, [facility] [address] [id number] [address] [place] [address], [place] [address] Sep, [facility] [address] [id number] [address] [place] [address], [place] [address] Sep, [facility] [address] [id number] [address] [place] [address], [place] [address] Sep, [facility] [address] [id number] [address] [place] [address], [place] [address] Sep, [facility] [address] [id number] [address] [place] [address], [place] [address] Sep, [facility] [address] [id number] [address] [place] [address], [place] [address] Sep, [facility] [address] [id number] [address] [place] [address], [place] [address] Jul, [facility] [address] [id number] [address] [place] [address], [place] [address] Jul, [facility] [address] [id number] [address] [place] [address], [place] [address] Jun, [facility] [address] [id number] [address] [place] [address], [place] [address] Jun, [facility] [address] [id number] [address] [place] [address], [place] [address] May, [facility] [address] [id number] [address] [place] [address], [place] [address] May, [facility] [address] [id number] [address] [place] [address], [place] [address] May, [facility] [address] [id number] [address] [place] [address], [place] [address] May, [facility] [address] [id number] [address] [place] [address], [place] [address] May, [facility] [address] [id number] [address] [place] [address], [place] [address] May, [facility] [address] [id number] [address] [place] [address], [place] [address] 05 May, 2013 [facility] [address] [id number] [address] [place] [address], [place] [address] Apr, [facility] [address] [id number] [address] [place] [address], [place] [address] Apr, [facility] [address] [id number] [address] [place] [address], [place] [address] Apr, [facility] [address] [id number] [address] [place] [address], [place] [address] Apr, [facility] [address] [id number] [address] [place] [address], [place] [address] Apr, [facility] [address] [id number] [address] [place] [address], [place] [address] Apr, [facility] [address] [id number] [address] [place] [address], [place] [address] Mar, [facility] [address] [id number] [address] [place] [address], [place] [address] Feb, [facility] [address] [id number] [address] [place] [address], [place] [address] Jan, [facility] [address] [id number] [address] [place] [address], [place] [address] Jan, [facility] [address] [id number] [address] [place] [address], [place] [address] Jan, [facility] [address] [id number] [address] [place] [address], [place] [address] Dec, [facility] [address] [id number] [address] [place] [address], [place] [address] November, [facility] [address] [id number] [address] [place] [address], [place] [address] November, [facility] [address] [id number] [address] [place] [address], [place] [address] November, [facility] [address] [id number] [address] [place] [address], [place] [address] November, [facility] [address] [id number] [address] [place] [address], [place] [address] Oct, [facility] [address] [id number] [address] [place] [address], [place] [address] Aug, [facility] [address] [id number] [address] [place] [address], [place] [address] Aug, [facility] [address] [id number] [address] [place] [address], [place] [address] Aug, [facility] [address] [id number] [address] [place] [address], [place] [address] Aug, [facility] [address] [id number] [address] [place] [address], [place] [address] Aug, [facility] [address] [id number] [address] [place] [address], [place] [address] Aug, [facility] [address] [id number] [address] [place] [address], [place] [address] Jul, [facility] [address] [id number] [address] [place] [address], [place] [address] May, [facility] [address] [id number] [address] [place] [address], [place] [address] May, [facility] [address] [id number] [address] [place] [address], [place] [address] May, [facility] [address] [id number] [address] [place] [address], [place] [address] May, [facility] [address] [id number] [address] [place] [address] May, [facility] [address] [id number] [address] [place] [address], [place] [address] May, [facility] [address] [id number] [address] [place] [address], [place] [address] May, [facility] [address] [id number] [address] [place] [address], [place] [address] Apr, [facility] [address] [id number] [address] [place] [address], [place] [address] 30 Apr, 2012 [facility] [address] [id number] [address] [place] [address], [place] [address] Apr, [facility] [address] [id number] [address] [place] [address], [place] [address] Apr, [facility] [address] [id number] [address] [place] [address], [place] [address] Apr, [facility] [address] [id number] [address] [place] [address], [place] [address] Sep, [facility] [address] [id number] [address] [place] [address], [place] [address] 24 Aug, 2011 [facility] [address] [id number] [address] [place] [address], [place] [address] 16 Aug, 2011 [facility] [address] [id number] [address] [place] [address], [place] [address] Aug, [facility] [address] [id number] [address] [place] [address], [place] [address] Aug, [facility] [address] [id number] [address] [place] [address], [place] [address] Aug, [facility] [address] [id number] [address] [place] [address], [place] [address] Jul, [facility] [address] [id number] [address] [place] [address], [place] [address] Jul, [facility] [address] [id number] [address] [place] [address], [place] [address] Jul, [facility] [address] [id number] [address] [place] [address], [place] [address] Jun, [facility] [address] [id number] [address] [place] [address], [place] [address] Jun, [facility] [address] [id number] [address] [place] [address] Jun, [facility] [address] [facility] [id number] [address] [place] [address] May, [facility] [address] [facility] [id number] [address] [place] [address] Apr, [facility] [address] [facility] [id number] [address] [place] [address] Apr, [facility] [address] [facility] [id number] [address] [place] [address] Apr, [facility] [address] [facility] [id number] [address] [place] [address] Apr, IMMUNIZATIONS No Known Immunizations SOCIAL HISTORY Never Assessed REASON FOR VISIT PLAN OF CARE VITAL SIGNS Height 69 in 2013-06-18 Weight 328.8 lbs 2013-06-18 Temperature 97.9 degrees Fahrenheit 2013-06-18 Heart Rate 82 bpm 2013-06-18 Respiratory Rate 20 2013-06-18 Blood pressure systolic 140 mmHg 2013-06-18 Blood pressure diastolic 98 mmHg 2013-06-18 MEDICATIONS Unknown Medications RESULTS No Results PROCEDURES No Known procedures INSTRUCTIONS MEDICATIONS ADMINISTERED No Known Medications MEDICAL (GENERAL) HISTORY Type Description Date Medical History hypertension Medical History Sleep apnea in adult Surgical History x 3 Surgical History cholecystectomy Surgical History Chemical Stress Test, EKG, Echo 05/2016 Hospitalization History surgeries Hospitalization History UTI VC 05/2016
--- OUTSIDE RECORDS SUMMARY | 2020-02-22 15:10 | XMS REPORT ---
Author Author Jada Wilcox Organization [facility] Address [address] [place] [address] Care Team Providers Care Pharmaceutical Worker Name Role Phone SEBAS Wilcox Unavailable PROBLEMS Type Condition ICD9-CM Code RCV22-GE Code Onset Dates Condition S tatus SNOMED Code Problem Tension headache G44.209 Active 398 687410 Problem DM neuro manif type II E11.49 Active 15539520 Problem Irritable bowel syndrome with diarrhea K58.0 Active 537475405 Problem Intractable migraine without aura and without st atus migrainosus G43.019 Active 724776096 Problem Menorrhagia with irregular cycle N92.1 Active 760555602 Problem Sleep apnea in adult G47.30 Active 63062316 Problem Other chronic pain G89.29 Active 8 7467535 Problem Iron deficiency anemia due to chronic blood loss D 50.0 Active 448795971 Problem Migraine with aura and without status migrainosu s, not intractable G43.109 Active 4322859 Problem Obstructive sleep apnea syndrome G47.33 Active 96730943 Problem Seasonal allergic rhinitis due to pollen J30.1 Active 55989917 Problem Chronic tension-type headache, not intractable G44 .229 Active 003508119 Problem HTN (hypertension) I10 Active 3 3638855 Problem Allergy, food Z91.018 Active 778954 001 Problem Primary osteoarthritis of left knee M17.12 Active [id number] Problem Hyperinsulinemia E16.1 Active 834 22422 Problem Chronic venous insufficiency I87.2 A ctive 30191752 Problem Multiple allergies Z88.9 Active 6 26878053 Problem Migraine headache G43.909 Active 37 726856 Problem Localized osteoarthritis of left knee M17.12 Active 131654075 ALLERGIES No Information ENCOUNTERS Encounter Location Date Diagnosis [facility] [address] [place] [address] [id number] [address] [place] [address] Jan, [address] [address] 08 Jan, 2020 Cellulitis of right lower ex tremity L03.115 and Itching L29.[address] [address] Jan, [address] [address] Jan, Cutaneous abscess of right l ower limb L02.415 ; Cellulitis of right lower limb L03.115 ; Itching L29.9 ; Allergy, food Z91.018 ; Hyperinsulinemia E16.1 and Obstructive sleep apnea syndrome G47.[address] [address] Dec, [facility] [place] [address] [address] Oct, Foreign body (FB) in soft ti ssue M79.[address] [address] Sep, HTN (hypertension) I10 [address] [address] Sep, Viral URI J06.9 ; Cough prod uctive of purulent sputum R05 and Exposure to influenza Z20.828 [facility] [place] [address] [address] Sep, [facility] [place] [address] [address] 14 Sep, 2019 Flu-like symptoms R68.[address] [address] 12 Sep, 2019 Primary osteoarthritis of le ft knee M17.12 and Acute medial meniscus tear of left knee, subsequent encounter S83.242D [facility] [place] [address] [address] 15 Aug, 2019 Flu-like symptoms R68.89 [facility] [address] [id number] [address] [place] [address] Aug, Sore throat J02.9 [facility] [address] [id number] [address] [place] [address] Jul, [facility] [address] [id number] [address] [place] [phone] Jul, [facility] [address] [id number] [address] [place] [address] Jul, [facility] [address] [id number] [address] [place] [phone] Jul, [facility] [address] [id number] [address] [place] [address] Jul, Segmental dysfunction of tho racic region M99.02 ; Segmental dysfunction of lumbar region M99.03 ; Segmental dysfunction of cervical region M99.01 and Chronic tension-type headache, not intractable G44.229 [facility] [address] [id number] [address] [place] [address] Jul, [facility] [address] [id number] [address] [place] [address] Jun, Localized osteoarthritis of left knee M17.12 [facility] [address] [id number] [address] [place] [id number] Jun, Acute non-recurrent sinusiti s, unspecified location J01.90 [facility] [address] [id number] [address] [place] [address] Jun, [facility] [address] [id number] [address] [place] [address] Jun, Viral upper respiratory trac t infection J06.9 [facility] [address] [id number] [address] [place] [address] Jun, [facility] [address] [place] [id number] [address] [place] [address] May, Prediabetes R73.03 and Iron deficiency anemia due to chronic blood loss D50.0 [facility] [address] [place] [id number] [address] [place] [address] May, [facility] [address] [place] [id number] [place] [address] May, Prediabetes R73.03 ; Left an terior knee pain M25.562 ; Encounter for immunization Z23 ; Migraine headache G43.909 ; Multiple allergies Z88.9 ; Snoring R06.83 and Iron deficiency anemia due to chronic blood loss D50.0 [facility] [address] [id number] [address] [place] [address] 16 May, 2019 Nonintractable headache, uns pecified chronicity pattern, unspecified headache type R51 and Sore throat J02.9 [facility] [address] [place] [place] [id number] [address] [place] [address] 15 Apr, 2019 [facility] [address] [address] 14 Apr, 2019 Fever, unspecified fever cau se R50.9 and Chest congestion R09.89 [facility] [address] [place] [id number] [address] [place] [phone] 18 Mar, 2019 Abdominal pain R10.9 [facility] [address] [place] [id number] [place] [address] 16 Mar, 2019 Chronic venous insufficiency I87.2 [facility] [address] [place] [id number] [address] [place] [address] Feb, [facility] [address] [address] Feb, [facility] [address] [place] [id number] [address] [place] [address] Feb, [facility] [address] [address] Feb, Seasonal allergic rhinitis d ue to pollen J30.1 ; Cervicalgia M54.2 ; Pain in right leg M79.604 ; Morbid obesity E66.01 and Obstructive sleep apnea syndrome G47.33 [facility] [address] [facility] [id number] [address] [place] [address] Jan, [facility] [address] [facility] [id number] [address] [place] [phone] Jan, [facility] [address] [place] [id number] [address] [place] [address] Jan, [facility] [address] [place] [id number] [place] [address] Jan, Food allergy Z91.018 [facility] [address] [place] [id number] [place] [phone] Jan, Right ear pain H92.01 ; DM n euro manif type II E11.49 and Morbid obesity E66.01 [facility] [address] [place] [id number] [address] [place] [address] Dec, Exercise counseling Z71.82 [place] [address] [place] [id number] [address] [place] [address] Dec, [facility] [address] [place] [id number] [address] [place] [address] Dec, Acute midline low back pain without sciatica M54.5 ; Migraine headache G43.909 ; Obstructive sleep apnea syndrome G47.33 ; Localized edema R60.0 and Morbid obesity E66.01 [facility] [address] [facility] [id number] [address] [place] [phone] Dec, Migraine with aura and witho ut status migrainosus, not intractable G43.109 and Morbid obesity E66.01 [facility] [address] [facility] [id number] [address] [place] [address] November, [facility] [address] [place] [id number] [address] [place] [phone] November, [facility] [address] [facility] [id number] [address] [place] [phone] November, [facility] [address] [facility] [id number] [address] [place] [address] November, Pain of left lower leg M79.6 62 [facility] [address] [facility] [id number] [address] [place] [address] November, Pain of left lower leg M79.6 62 and Candidiasis B37.9 [facility] IN [facility] [address] [facility] [id number] [address] [place] [address] November, Left leg pain M79.605 [place] [address] [facility] [id number] [address] [place] [address] November, Pain in right leg M79.604 [facility] [address] [facility] [id number] [address] [place] [address] Oct, Left leg pain M79.605 ; Left leg swelling M79.89 and Morbid obesity E66.01 [facility] [address] [facility] [id number] [address] [place] [address] Oct, Bronchitis J40 ; HTN (hypert ension) I10 and Morbid obesity E66.01 [facility] [address] [facility] [id number] [address] [place] [address] Oct, Sore throat J02.9 and Morbid obesity E66.01 [facility] [address] [facility] [id number] [address] [place] [phone] Oct, [facility] [address] [facility] [id number] [address] [place] [address] Oct, Allergy, food Z91.018 ; Cand idiasis B37.9 and Morbid obesity E66.01 [facility] [address] [facility] [id number] [address] [place] [address] Sep, [facility] [address] [address] 04 Sep, 2018 Intractable migraine without aura and without status migrainosus G43.019 ; Allergic reaction to food, subsequent encounter T78.1XXD ; HTN (hypertension) I10 and Morbid obesity E66.01 [place] [address] [address] Jul, [facility] [address] [address] Jul, Rash R21 and BMI 50.0-59.9, adult Z68.43 [place] [address] [address] 28 Jun, 2018 Hyperinsulinemia E16.1 and M enorrhagia with irregular cycle N92.1 [place] [address] [address] Jun, Primary osteoarthritis of le ft knee M17.12 [facility] [place] [address] [address] 12 Jun, 2018 Sore throat J02.9 ; Acute na sopharyngitis J00 and BMI 50.0-59.9, adult Z68.43 [place] [address] [address] 05 Jun, 2018 Other chronic pain G89.29 ; Pain in left knee M25.562 ; Hyperinsulinemia E16.1 ; Menorrhagia with irregular cycle N92.1 and BMI 50.0- 59.9, adult Z68.43 [facility] [place] [address] [address] Apr, BMI 50.0-59.9, adult Z68.43 ; Dysuria R30.0 and Acute UTI N39.0 [place] [address] [address] Apr, [place] [address] [address] Apr, Encounter for immunization Z 23 [facility] [address] [facility] [id number] [address] [place] [address] 27 Mar, 2018 Acute midline low back pain without sciatica M54.5 ; Acute pain of left knee M25.562 and BMI 50.0-59.9, adult Z68.43 [facility] [address] [facility] [id number] [address] [place] [address] Mar, Intractable migraine without aura and without status migrainosus G43.019 and BMI 50.0-59.9, adult Z68.43 [place] [address] [facility] [id number] [address] [place] [address] 05 Mar, 2018 Bronchitis J40 ; Allergy to food Z91.018 and BMI 50.0-59.9, adult Z68.43 [facility] IN [facility] [address] [facility] [id number] [address] [place] [address] Mar, Bronchitis J40 ; Wheezing on both sides of chest R06.2 and BMI 50.0-59.9, adult Z68.43 [place] [id number] [place] [id number] [address] [place] [address] Feb, Pain in right leg M79.604 [place] [address] [place] [id number] [address] [place] [address] Jan, Pneumonia of left lung due t o infectious organism, unspecified part of lung J18.9 [place] [address] [place] [id number] [address] [place] [address] Dec, Pneumonia due to Mycoplasma pneumoniae, unspecified laterality, unspecified part of lung J15.7 and BMI 50.0-59.9, adult Z68.43 [place] [address] [place] [id number] [address] [place] [address] Dec, [place] [address] [facility] [id number] [address] [place] [address] Dec, Bronchitis J40 and BMI 50.0- 59.9, adult Z68.43 [facility] [address] [address] November, Bronchitis J40 ; LLQ pain R1 0.32 and BMI 50.0-59.9, adult Z68.43 [place] [address] [address] November, Iron deficiency anemia due t o chronic blood loss D50.0 [place] [address] [address] November, [place] [address] [address] November, Iron deficiency anemia due t o chronic blood loss D50.0 ; DM neuro manif type II E11.49 ; Menorrhagia with irregular cycle N92.1 and BMI 50.0-59.9, adult Z68.43 [facility] [address] [address] Oct, Sore throat J02.9 and Acute nasopharyngitis J00 [facility] [place] [address] [address] Oct, Left leg pain M79.605 and BM I 50.0-59.9, adult Z68.43 [facility] [address] [address] Sep, Upper respiratory tract infe ction, unspecified type J06.9 and BMI 50.0-59.9, adult Z68.43 [place] [address] [address] Sep, Menorrhagia with irregular c ycle N92.1 ; Sleep apnea in adult G47.30 and BMI 50.0-59.9, adult Z68.43 [place] [address] [address] Sep, [place] [address] [place] [address] Aug, [facility] [address] [address] Aug, [facility] [address] [address] Aug, [facility] [address] [address] Aug, LLQ pain R10.32 ; Irritable bowel syndrome with diarrhea K58.0 ; Change in bowel habits R19.4 ; Essential hypertension I10 and BMI 50.0-59.9, adult Z68.43 [place] [address] [address] 22 Aug, 2017 [place] [address] [address] Aug, [facility] [place] [address] [address] Aug, Essential hypertension I10 a nd BMI 50.0-59.9, adult Z68.43 [place] [address] [address] 19 Aug, 2017 [place] [address] [address] 08 Aug, 2017 [facility] [place] [address] [address] 02 Aug, 2017 Allergic disorder, initial e ncounter T78.40XA and BMI 50.0-59.9, adult Z68.43 [facility] [place] [address] [address] Jul, Other atopic dermatitis L20. 89 and BMI 50.0-59.9, adult Z68.43 [place] [address] [address] 16 Jul, 2017 Intractable migraine without aura and without status migrainosus G43.019 and BMI 50.0-59.9, adult Z68.43 [facility] [address] [address] Jun, DM neuro manif type II E11.4 9 ; Tension headache G44.209 ; Breast cancer screening Z12.31 and BMI 50.0-59.9, adult Z68.43 [facility] [address] [address] Jun, Tension headache G44.209 ; B reast cancer screening Z12.31 ; BMI 50.0-59.9, adult Z68.43 and DM neuro manif type II E11.49 [facility] [address] [address] Apr, Dysuria R30.0 and Acute cyst itis with hematuria N30.01 [place] [address] [address] Apr, Hyperinsulinemia E16.1 [place] [address] [address] Mar, Acute non-recurrent maxillar y sinusitis J01.00 [place] [address] [address] Feb, Cellulitis of unspecified pa rt of limb L03.119 ; Spider bite wound, accidental or unintentional, subsequent encounter T63.301D and BMI 50.0-59.9, adult Z68.43 [facility] [address] [place] [id number] [address] [place] [address] Jan, [place] [address] [address] Jan, Urinary tract infection, sit e unspecified N39.0 [facility] [address] [address] Jan, Acute gastritis without hemo rrhage, unspecified gastritis type K29.00 [facility] [address] [facility] [id number] [address] [place] [address] 30 Dec, 2016 Pain in right leg M79.604 [place] [address] [place] [id number] [place] [address] 28 Dec, 2016 Hyperinsulinemia E16.1 and P ain in right leg M79.604 [place] [address] [place] [id number] [place] [address] Dec, Angioedema, initial encounte r T78.3XXA [place] [address] [address] 15 Dec, 2016 Dental examination Z01.20 [place] [address] [address] 13 Dec, 2016 [place] [address] [address] Dec, Burning with urination R30.0 and Acute cystitis with hematuria N30.01 [place] [address] [address] Oct, [place] [address] [address] Sep, [place] [address] [address] Aug, Hyperinsulinemia E16.1 [place] [address] [address] Aug, [place] [address] [address] Jul, [place] [address] [address] Jul, Chondromalacia, left knee M9 4.262 and Acute lateral meniscus tear of left knee, initial encounter S83.282A [place] [address] [address] Jul, [facility] [address] [id number] [address] [place] [address] Jun, Hyperinsulinemia E16.1 [facility] [address] [facility] [id number] [address] [place] [address] Jun, Dysuria R30.0 ; Back pain M5 4.9 ; Acute pain of left knee M25.562 and Hyperinsulinemia E16.1 [facility] [address] [id number] [address] [place] [address] 14 Jun, 2016 Acute non-recurrent maxillar y sinusitis J01.00 [facility] [address] [facility] [id number] [address] [place] [address] 05 Jun, 2016 Dysuria R30.0 [facility] [address] [facility] [id number] [address] [place] [address] Jun, Dysuria R30.0 [facility] [address] [facility] [id number] [address] [place] [address] Jun, [facility] [address] [id number] [address] [place] [address] May, Dysuria R30.0 and Acute cyst itis with hematuria N30.01 [facility] [address] [facility] [id number] [address] [place] [phone] May, Hyperinsulinemia E16.1 [facility] [address] [id number] [address] [place] [address] May, [facility] [address] [facility] [id number] [address] [place] [address] May, Sore throat J02.9 [facility] [address] [facility] [id number] [address] [place] [address] 03 May, 2016 [facility] [address] [facility] [id number] [address] [place] [address] 08 Mar, 2016 Hyperinsulinemia E16.1 [facility] [address] [facility] [id number] [address] [place] [phone] Jan, Hyperinsulinemia E16.1 [facility] [address] [facility] [id number] [address] [place] [phone] Dec, DM neuro manif type II E11.4 9 [facility] [address] [facility] [id number] [address] [place] [phone] November, Hyperinsulinemia E16.1 and H ypertension I10 [facility] [address] [id number] [address] [place] [phone] Oct, [facility] [address] [facility] [id number] [address] [place] [phone] Oct, Hyperinsulinemia E16.1 [facility] [address] [place] [id number] [place] [phone] Oct, Pain, unspecified R52 [facility] [address] [id number] [address] [place] [id number] 14 Oct, 2015 Pain in right foot M79.671 a nd Hyperinsulinemia E16.1 [facility] [address] [facility] [id number] [address] [place] [id number] 14 Oct, 2015 Hyperinsulinemia E16.1 [facility] [address] [place] [id number] [address] [place] [phone] 12 Oct, 2015 Hyperinsulinemia E16.1 [facility] [address] [facility] [id number] [address] [place] [id number] 17 Aug, 2015 Hypertension I10 and Viral i llness B34.9 [facility] [address] [facility] [id number] [address] [place] [phone] 18 May, 2015 Back pain M54.9 [facility] [address] [facility] [id number] [address] [place] [phone] 14 Oct, 2014 [facility] [address] [place] [id number] [address] [place] [phone] 13 Oct, 2014 [facility] [address] [place] [id number] [address] [place] [phone] Sep, [facility] [address] [id number] [address] [place] [address], [place] [phone] Sep, [facility] [address] [id number] [address] [place] [address], [place] [phone] Sep, 2014 [facility] [address] [id number] [address] [place] [address], [place] [phone] Sep, 2014 [facility] [address] [id number] [address] [place] [address], [place] [phone] Sep, [facility] [address] [id number] [address] [place] [address], [place] [phone] Sep, [facility] [address] [id number] [address] [place] [address], [place] [phone] Sep, 2014 [facility] [address] [id number] [address] [place] [address], [place] [phone] Sep, [facility] [address] [id number] [address] [place] [address], [place] [id number] Sep, 2014 [facility] [facility] [address] [id number] [address] [place] [address], [place] [address] Sep, [facility] [address] [id number] [address] [place] [address], [place] [address] Sep, [facility] [address] [id number] [address] [place] [address], [place] [address] Sep, [facility] [address] [id number] [address] [place] [address], [place] [address] Mar, [facility] [address] [id number] [address] [place] [address], [place] [address] Mar, [facility] [address] [id number] [address] [place] [address], [place] [address] Feb, [facility] [address] [id number] [address] [place] [address], [place] [address] Feb, [facility] [address] [id number] [facility] [place] [address] Feb, [facility] [address] [id number] [facility] [place] [address] Feb, [facility] [address] [id number] [facility] [place] [address] Dec, [facility] [address] [id number] [address] [place] [address], [place] [address] Dec, [facility] [address] [id number] [address] [place] [address], [place] [address] Dec, [facility] [address] [id number] [address] [place] [address], [place] [address] Dec, [facility] [address] [id number] [address] [place] [address], [place] [address] Dec, [facility] [address] [id number] [address] [place] [address], [place] [address] Dec, [facility] [address] [id number] [address] [place] [address], [place] [address] Dec, [facility] [address] [id number] [address] [place] [address], [place] [address] Sep, [facility] [address] [id number] [address] [place] [address], [place] [address] Sep, [facility] [address] [id number] [address] [place] [address], [place] [address] Sep, [facility] [address] [id number] [address] [place] [address], [place] [address] Sep, [facility] [address] [id number] [address] [place] [address], [place] [address] Sep, [facility] [address] [id number] [address] [place] [address], [place] [address] Sep, [facility] [address] [id number] [address] [place] [address], [place] [address] Sep, [facility] [address] [id number] [address] [place] [address], [place] [address] Sep, [facility] [address] [id number] [address] [place] [address], [place] [address] Jul, [facility] [address] [id number] [address] [place] [address], [place] [address] Jul, [facility] [address] [id number] [address] [place] [address], [place] [address] Jun, [facility] [address] [id number] [address] [place] [address], [place] [address] Jun, [facility] [address] [id number] [address] [place] [address], [place] [address] May, [facility] [address] [id number] [address] [place] [address], [place] [address] May, [facility] [address] [id number] [address] [place] [address] May, [facility] [address] [id number] [address] [place] [address], [place] [address] May, [facility] [address] [id number] [address] [place] [address] May, [facility] [address] [id number] [address] [place] [address] May, [facility] [address] [id number] [address] [place] [address] 05 May, 2013 [facility] [address] [id number] [address] [place] [address], [place] [address] Apr, [facility] [address] [id number] [address] [place] [address] Apr, [facility] [address] [id number] [address] [place] [address] Apr, [facility] [address] [id number] [address] [place] [address] Apr, [facility] [address] [id number] [address] [place] [address], [place] [address] Apr, [facility] [address] [id number] [address] [place] [address], [place] [address] Apr, [facility] [address] [id number] [address] [place] [address], [place] [address] Mar, [facility] [address] [id number] [address] [place] [address], [place] [address] Feb, [facility] [address] [id number] [address] [place] [address], [place] [address] Jan, [facility] [address] [id number] [address] [place] [address], [place] [address] Jan, [facility] [address] [id number] [address] [place] [address], [place] [address] Jan, [facility] [address] [id number] [address] [place] [address], [place] [address] Dec, [facility] [address] [id number] [address] [place] [address], [place] [address] November, [facility] [address] [id number] [address] [place] [address], [place] [address] November, [facility] [address] [id number] [address] [place] [address], [place] [address] November, [facility] [address] [id number] [address] [place] [address] November, [facility] [address] [id number] [address] [place] [address], [place] [address] Oct, [facility] [address] [id number] [address] [place] [address], [place] [address] Aug, [facility] [address] [id number] [address] [place] [address] Aug, [facility] [address] [id number] [address] [place] [address], [place] [address] Aug, 2012 [facility] [address] [id number] [address] [place] [address], [place] [address] Aug, [facility] [address] [id number] [address] [place] [address], [place] [address] Aug, [facility] [address] [id number] [address] [place] [address], [place] [address] Aug, [facility] [address] [id number] [address] [place] [address], [place] [address] Jul, [facility] [address] [id number] [address] [place] [address], [place] [address] May, [facility] [address] [id number] [address] [place] [address], [place] [address] May, [facility] [address] [id number] [address] [place] [address], [place] [address] May, [facility] [address] [id number] [address] [place] [address], [place] [address] May, [facility] [address] [id number] [address] [place] [address], [place] [address] May, [facility] [address] [id number] [address] [place] [address], [place] [address] May, [facility] [address] [id number] [address] [place] [address] May, [facility] [address] [id number] [address] [place] [address], [place] [address] Apr, [facility] [address] [id number] [address] [place] [address], [place] [address] Apr, [facility] [address] [id number] [address] [place] [address] Apr, [facility] [address] [id number] [address] [place] [address] Apr, [facility] [address] [id number] [address] [place] [address], [place] [address] Apr, [facility] [address] [id number] [address] [place] [address], [place] [address] Sep, [facility] [address] [id number] [address] [place] [address], [place] [address] 24 Aug, 2011 [facility] [address] [id number] [address] [place] [address], [place] [address] Aug, [facility] [address] [id number] [address] [place] [address], [place] [address] Aug, [facility] [address] [id number] [address] [place] [address], [place] [address] Aug, [facility] [address] [id number] [address] [place] [address], [place] [address] Aug, [facility] [address] [id number] [address] [place] [address], [place] [address] Jul, [facility] [address] [id number] [address] [place] [address], [place] [address] Jul, [facility] [address] [id number] [address] [place] [address], [place] [address] Jul, [facility] [address] [id number] [address] [place] [address], [place] [address] Jun, [facility] [address] [id number] [address] [place] [address] Jun, [facility] [address] [id number] [address] [place] [address], [place] [address] Jun, [facility] [address] [id number] [address] [place] [address] May, [facility] [address] [id number] [address] [place] [address] Apr, [facility] [address] [facility] [id number] [address] [address] Apr, [facility] [address] [facility] [id number] [address] [place] [address] 11 Apr, 2011 [facility] [address] [facility] [id number] [address] [place] [address] 11 Apr, 2011 IMMUNIZATIONS No Known Immunizations SOCIAL HISTORY Never Assessed REASON FOR VISIT PLAN OF CARE VITAL SIGNS Height 69 in 2013-05-16 Weight 329 lbs 2013-05-16 Temperature 98 degrees Fahrenheit 2013-05-16 Heart Rate 74 bpm 2013-05-16 Respiratory Rate 20 2013-05-16 Blood pressure systolic 140 mmHg 2013-05-16 Blood pressure diastolic 92 mmHg 2013-05-16 MEDICATIONS Unknown Medications RESULTS No Results PROCEDURES Procedure Date Ordered Result Body Site URINE TEST May 16, 2013 CT ABD & PELVIS W/O CONTRAST May 16, 2013 COMPLETE CBC W/AUTO DIFF WBC May 16, 2013 COMPREHEN METABOLIC PANEL May 16, 2013 URINALYSIS, AUTO, W/O SCOPE May 16, 2013 VENIPUNCT, ROUTINE* May 16, 2013 INSTRUCTIONS MEDICATIONS ADMINISTERED No Known Medications MEDICAL (GENERAL) HISTORY Type Description Date Medical History hypertension Medical History Sleep apnea in adult Surgical History x 3 Surgical History cholecystectomy Surgical History Chemical Stress Test, EKG, Echo 05/2016 Hospitalization History surgeries Hospitalization History UTI VC 05/2016
--- OUTSIDE RECORDS SUMMARY | 2020-02-22 15:13 | XMS REPORT | Continuity of Care Document ---
[...] Food Allergy N/A N/A 03/01/2013 Yes codeine [id number] Drug Allergy Unknown N/A 10/29/2014 Yes hydrochlorothiazide [id number] Drug Allergy Unknown N/A 10/29/2014 Yes ONION Food Allergy N/A N/A 10/30/2014 Yes codeine [id number] Drug Allergy Severe NECK SWELLING 01/02/2018 Yes hydrochlorothiazide [id number] Drug Allergy Severe NECK SWELLING 018 Yes dulaglutide [id number] Drug Aller gy Unknown N/A 12/11/2019 Yes codeine [id number] Drug Allergy Severe Neck swelling, 12/19/2019 Medications There is no data. Problems Date Dx Coded Attending Type Code Diagnosis Diagnosed By 06/16/1430 BAUDILIO STALLWORTH MD, Ot S83.242A OTH TEAR [...] K 783.1 Weight Gain Abnormal 02/08/2008 PETERSON DO NAHOMY K 784.0 Headache 02/08/2008 PETERSON CAROL PICKETTA K V18.0 FAMILY HISTORY OF DIABETES MELLITUS 02/08/2008 BALBIR MORRISSEY APRN R 783.1 Weight Gain Abnormal 02/08/2008 BALBIR MORRISSEY APRN R 784.0 Headache 02/08/2008 RADHA MORRISSEY APRNIA R V18.0 FAMILY HISTORY OF DIABETES MELLITUS 02/08/2008 SHANNON KHAN APRNA S 783.1 Weight Gain Abnormal 02/08/2008 SHANNON KHAN APRNA S 784.0 Headache 02/08/2008 SHANNON KHAN APRNA S V18.0 FAMILY HISTORY OF DIABETES MELLITUS 02/08/2008 CARISA KHAN APRN S 783.1 Weight Gain Abnormal 02/08/2008 SHANNON [...] DOVER APRN A 78 4.0 Headache 02/08/2008 JAZZMINE SENIOR RESIDENT CARE DIRECTOR, RUTH A V1 8.0 FAMILY HISTORY OF DIABETES MELLITUS 02/08/2008 BILL FISHER, CARISA S 783.1 Weight Gain Abnormal 02/08/2008 BILL FISHER CARISA S 784.0 Headache 02/08/2008 BILL SENIOR RESIDENT CARE DIRECTOR, CARISA S V18.0 FAMILY HISTORY OF DIABETES MELLITUS 02/08/2008 BILL FISHER CARISA S 783.1 Weight Gain Abnormal 02/08/2008 BILL FISHER CARISA S 784.0 Headache 02/08/2008 BILL FISHER CARISA S V18.0 FAMILY HISTORY OF DIABETES MELLITUS 02/08/2008 GHANSHYAM FISHER BALBIR R 783.1 Weight Gain Abnormal 02/08/2008 GHANSHYAM FISHER BALBIR R 784.0 Headache 02/08/2008 GHANSHYAM FISHER BALBIR R V18.0 FAMILY HISTORY OF DIABETES MELLITUS 02/08/2008 GEORGETTE KHAN APRNNDA S 783.1 Weight Gain Abnormal 02/08/2008 BILL FISHER CARISA S 784.0 Headache 02/08/2008 GEORGETTE KHAN APRNNDA S V18.0 FAMILY HISTORY OF DIABETES MELLITUS 02/08/2008 GEORGETTE KHAN APRNNDA S 783.1 Weight Gain Abnormal 02/08/2008 BILL FISHER CARISA S 784.0 Headache 02/08/2008 BILL FISHER CARISA S V18.0 FAMILY HISTORY OF DIABETES MELLITUS 02/08/2008 GEORGETTE KHAN APRNNDA S 783.1 Weight Gain Abnormal 02/08/2008 BILL FISHER CARISA S 784.0 Headache 02/08/2008 BILL FISHER CARISA S V18.0 FAMILY HISTORY OF DIABETES MELLITUS 02/09/2008 250.00 Marnie betes Ii Controlled 02/09/2008 NAHOMY PETERSON DO 250.00 Diabetes Ii Controlled 02/09/2008 250.00 Marnie betes Ii Controlled 02/09/2008 250.00 Marnie betes Ii Controlled 02/09/2008 250.00 Marnie betes Ii Controlled 02/09/2008 250.00 Marnie betes Ii Controlled 02/09/2008 PETERSNO DO, NAHOMY K 250.00 Diabetes Ii Controlled 02/09/2008 FANY MORRISSEY APRNRICIA R 250.00 Diabetes Ii Controlled 02/09/2008 GEORGETTE KHAN APRNNDA S 250.00 Diabetes Ii Controlled 02/09/2008 IBLL FISHER, CARISA S 250.00 Diabetes Ii Controlled 02/09/2008 RADHA MORRISSEY APRNIA R 250.00 Diabetes Ii Controlled 02/09/2008 JAZZMINE FISHER, RUTH A 250.00 Diabetes Ii Controlled 02/09/2008 GEORGETTE KHAN APRNNDA S 250.00 Diabetes Ii Controlled 02/09/2008 GEORGETTE KHAN APRNNDA S 250.00 Diabetes Ii Controlled 02/09/2008 RADHA MRORISSEY APRNIA R 250.00 Diabetes Ii Controlled 02/09/2008 GEORGETTE KHAN APRNNDA S 250.00 Diabetes Ii Controlled 02/09/2008 GEORGETTE KHAN APRNNDA S 250.00 Diabetes Ii Controlled 02/09/2008 GEORGETTE KHAN APRNNDA S 250.00 Diabetes Ii Controlled 08/01/2008 462 [...] KHAN APRNA S 462 Pharyngitis Acute 08/01/2008 RADHA MORRISSEY APRNIA R 462 Pharyngitis Acute 08/01/2008 YU DOVER APRNIDI A 46 2 Pharyngitis Acute 08/01/2008 SHANNON KHAN APRNA S 462 Pharyngitis Acute 08/01/2008 SHANNON KHAN APRNA S 462 Pharyngitis Acute 08/01/2008 BALBIR MORRISSEY APRN R 462 Pharyngitis Acute 08/01/2008 BILL SENIOR RESIDENT CARE DIRECTOR, CARISA S 462 Pharyngitis Acute 08/01/2008 BILL SENIOR RESIDENT CARE DIRECTOR, CARISA S 462 Pharyngitis Acute 08/01/2008 BILL SENIOR RESIDENT CARE DIRECTOR, CARISA S 462 Pharyngitis Acute 12/18/2008 599.0 Urin aditi Tract Infection 12/18/2008 NAHOMY PETERSON DO K 599.0 Urinary Tract Infection 12/18/2008 599.0 Urin aditi Tract Infection 12/18/2008 599.0 Urin aditi Tract Infection 12/18/2008 599.0 Urin aditi Tract Infection 12/18/2008 599.0 Urin aditi Tract Infection 12/18/2008 NAHOMY PETERSON DO K 599.0 Urinary Tract Infection 12/18/2008 GHANSHYAM SENIOR RESIDENT CARE DIRECTOR, BALBIR R 599.0 Urinary Tract Infection 12/18/2008 BILL SENIOR RESIDENT CARE DIRECTOR, CARISA S 599.0 Urinary Tract Infection 12/18/2008 BILL SENIOR RESIDENT CARE DIRECTOR, CARISA S 599.0 Urinary Tract Infection 12/18/2008 GHANSHYAM SENIOR RESIDENT CARE DIRECTOR, BALBIR R 599.0 Urinary Tract Infection 12/18/2008 JAZZMINE SENIOR RESIDENT CARE DIRECTOR, RUTH A 59 9.0 Urinary Tract Infection 12/18/2008 BILL SENIOR RESIDENT CARE DIRECTOR, CARISA S 599.0 Urinary Tract Infection 12/18/2008 BILL SENIOR RESIDENT CARE DIRECTOR, CARISA S 599.0 Urinary Tract Infection 12/18/2008 MORRISSEY SENIOR RESIDENT CARE DIRECTOR, BALBIR R 599.0 Urinary Tract Infection 12/18/2008 BILL SENIOR RESIDENT CARE DIRECTOR, CARISA S 599.0 Urinary Tract Infection 12/18/2008 BILL SENIOR RESIDENT CARE DIRECTOR, CARISA S 599.0 Urinary Tract Infection 12/18/2008 BILL SENIOR RESIDENT CARE DIRECTOR, CARISA S 599.0 Urinary Tract Infection 01/22/2009 401.1 ESSE NTIAL HYPERTENSION BENIGN 01/22/2009 NAHOMY PETERSON DO K 401.1 ESSENTIAL HYPERTENSION BENIGN 01/22/2009 401.1 ESSE NTIAL HYPERTENSION BENIGN 01/22/2009 401.1 ESSE NTIAL HYPERTENSION BENIGN 01/22/2009 401.1 ESSE NTIAL HYPERTENSION BENIGN 01/22/2009 401.1 ESSE NTIAL HYPERTENSION BENIGN 01/22/2009 NAHOMY PETERSON DO K 401.1 ESSENTIAL HYPERTENSION BENIGN 01/22/2009 GHANSHYAM SENIOR RESIDENT CARE DIRECTORFANY HoustonBALBIR R 401.1 ESSENTIAL HYPERTENSION BENIGN 01/22/2009 BILL SENIOR RESIDENT CARE DIRECTOR, CARISA S 401.1 ESSENTIAL HYPERTENSION BENIGN 01/22/2009 BILL SENIOR RESIDENT CARE DIRECTOR, CARISA S 401.1 ESSENTIAL HYPERTENSION BENIGN 01/22/2009 FANY MORRISSEY APRNRICIA R 401.1 ESSENTIAL HYPERTENSION BENIGN 01/22/2009 YU DOVER APRNIDI A 40 1.1 ESSENTIAL HYPERTENSION BENIGN 01/22/2009 BILL SENIOR RESIDENT CARE DIRECTOR, CARISA S 401.1 ESSENTIAL HYPERTENSION BENIGN 01/22/2009 BILL SENIOR RESIDENT CARE DIRECTOR, CARISA S 401.1 ESSENTIAL HYPERTENSION BENIGN 01/22/2009 FANY MORRISSEY APRNRICIA R 401.1 ESSENTIAL HYPERTENSION BENIGN 01/22/2009 BILL SENIOR RESIDENT CARE DIRECTOR, CARISA S 401.1 ESSENTIAL HYPERTENSION BENIGN 01/22/2009 BILL SENIOR RESIDENT CARE DIRECTOR, CARISA S 401.1 ESSENTIAL HYPERTENSION BENIGN 01/22/2009 BILL SENIOR RESIDENT CARE DIRECTOR, CARISA S 401.1 ESSENTIAL HYPERTENSION BENIGN 08/07/2009 [...] Pain In Joint, Ankle And Foot 08/07/2009 YU DOVER APRNIDI A 719.47 Pain In Joint, Ankle And Foot 08/07/2009 BILL SENIOR RESIDENT CARE DIRECTOR, CARISA S 719.47 Pain In Joint, Ankle And Foot 08/07/2009 BILL SENIOR RESIDENT CARE DIRECTOR, CARISA S 719.47 Pain In Joint, Ankle And Foot 08/07/2009 FANY MORRISSEY APRNRICIA R 719.47 Pain In Joint, Ankle And Foot 08/07/2009 BILL SENIOR RESIDENT CARE DIRECTOR, CARISA S 719.47 Pain In Joint, Ankle And Foot 08/07/2009 BILL SENIOR RESIDENT CARE DIRECTOR, CARISA S 719.47 Pain In Joint, Ankle And Foot 08/07/2009 BILL SENIOR RESIDENT CARE DIRECTOR, CARISA S 719.47 Pain In Joint, Ankle And Foot 08/11/2009 780.79 Fatigue 08/11/2009 NAHOMY PETERSON DO 780.79 Fatigue 08/11/2009 780.79 Fatigue 08/11/2009 780.79 Fatigue 08/11/2009 780.79 Fatigue 08/11/2009 780.79 Fatigue 08/11/2009 NAHOMY PETERSON DO 780.79 Fatigue 08/11/2009 FANY MORRISSEY APRNRICIA R 780.79 Fatigue 08/11/2009 BILL SENIOR RESIDENT CARE DIRECTOR, CARISA S 780.79 Fatigue 08/11/2009 BILL SENIOR RESIDENT CARE DIRECTOR, CARISA S 780.79 Fatigue 08/11/2009 FANY MORRISSEY APRNRICIA R 780.79 Fatigue 08/11/2009 JAZZMINE FISHER RUTH A 780.79 Fatigue 08/11/2009 BILL SENIOR RESIDENT CARE DIRECTOR, CARISA S 780.79 Fatigue 08/11/2009 BILL FISHER CARISA S 780.79 Fatigue 08/11/2009 FANY MORRISSEY APRNRICIA R 780.79 Fatigue 08/11/2009 BILL SENIOR RESIDENT CARE DIRECTOR, CARISA S 780.79 Fatigue 08/11/2009 BILL SENIOR RESIDENT CARE DIRECTOR, CARISA S 780.79 Fatigue 08/11/2009 BILL SENIOR RESIDENT CARE DIRECTOR, CARISA S 780.79 Fatigue 09/09/2009 V74.1 Scre [...] Screening Examination For Pulmonary Tuberculosis 09/09/2009 BILL SENIOR RESIDENT CARE DIRECTOR, CARISA S V74.1 Screening Examination For Pulmonary Tuberculosis 09/09/2009 BILL FISHER, CARISA S V74.1 Screening Examination For Pulmonary Tuberculosis 09/09/2009 GHANSHYAM SENIOR RESIDENT CARE DIRECTOR, BALBIR R V74.1 Screening Examination For Pulmonary [...] 09/15/2009 V72.31 Rou irwin Gynecological Examination 09/15/2009 CAROL PETERSON DOA K V72.31 Routine Gynecological Examination 09/15/2009 V72.31 Rou irwin Gynecological Examination 09/15/2009 V72.31 Rou irwin Gynecological Examination 09/15/2009 V72.31 Rou irwin Gynecological Examination 09/15/2009 V72.31 Rou irwin Gynecological Examination 09/15/2009 KRISTEN PICKETT NAHOMY K V72.31 Routine Gynecological Examination 09/15/2009 FANY MORRISSEY APRNRICIA R V72.31 Routine Gynecological Examination 09/15/2009 BILL FISHER, CARISA S V72.31 Routine Gynecological Examination 09/15/2009 BILL FISHER CARISA S V72.31 Routine Gynecological Examination 09/15/2009 FANY MORRISSEY APRNRICIA R V72.31 Routine Gynecological Examination 09/15/2009 JAZZMINE SENIOR RESIDENT CARE DIRECTOR, RUTH A V72.31 Routine Gynecological Examination 09/15/2009 BILL SENIOR RESIDENT CARE DIRECTOR, CARISA S V72.31 Routine Gynecological Examination 09/15/2009 BILL SENIOR RESIDENT CARE DIRECTOR, CARISA S V72.31 Routine Gynecological Examination 09/15/2009 GHANSHYAM SENIOR RESIDENT CARE DIRECTOR, BALBIR R V72.31 Routine Gynecological Examination 09/15/2009 BILL SENIOR RESIDENT CARE DIRECTOR, CARISA S V72.31 Routine Gynecological Examination 09/15/2009 BILL SENIOR RESIDENT CARE DIRECTOR, CARISA S V72.31 Routine Gynecological Examination 09/15/2009 BILL SENIOR RESIDENT CARE DIRECTOR, CARISA S V72.31 Routine Gynecological Examination 12/11/2009 300.00 Anx iety State, Unspecified 12/11/2009 PETERSON DO, NAHOMY K 300.00 Anxiety State, Unspecified 12/11/2009 300.00 Anx iety State, Unspecified 12/11/2009 300.00 Anx iety State, Unspecified 12/11/2009 300.00 Anx iety State, Unspecified 12/11/2009 300.00 Anx iety State, Unspecified 12/11/2009 PETERSON DO, NAHOMY K 300.00 Anxiety State, Unspecified 12/11/2009 GHANSHYAM SENIOR RESIDENT CARE DIRECTOR, BALBIR R 300.00 Anxiety State, Unspecified 12/11/2009 BILL SENIOR RESIDENT CARE DIRECTOR, CARISA S 300.00 Anxiety State, Unspecified 12/11/2009 BILL SENIOR RESIDENT CARE DIRECTOR, CARISA S 300.00 Anxiety State, Unspecified 12/11/2009 FANY MORRISSEY APRNRICIA R 300.00 Anxiety State, Unspecified 12/11/2009 JAZZMINE FISHER RUTH A 300.00 Anxiety State, Unspecified 12/11/2009 BILL SENIOR RESIDENT CARE DIRECTOR, CARISA S 300.00 Anxiety State, Unspecified 12/11/2009 BILL SENIOR RESIDENT CARE DIRECTOR, CARISA S 300.00 Anxiety State, Unspecified 12/11/2009 FANY MORRISSEY APRNRICIA R 300.00 Anxiety State, Unspecified 12/11/2009 BILL SENIOR RESIDENT CARE DIRECTOR, CARISA S 300.00 Anxiety State, Unspecified 12/11/2009 BILL SENIOR RESIDENT CARE DIRECTOR, CARISA S 300.00 Anxiety State, Unspecified 12/11/2009 BILL SENIOR RESIDENT CARE DIRECTOR, CARISA S 300.00 Anxiety State, Unspecified 04/27/2011 [...] NAHOMY K 727.43 Ganglion Unspecified 04/27/2011 MORRISSEY SENIOR RESIDENT CARE DIRECTOR, BALBIR R 461.0 Acute Maxillary Sinusitis 04/27/2011 MORRISSEY SENIOR RESIDENT CARE DIRECTOR, BALBIR R 727.43 Ganglion Unspecified 04/27/2011 BILL SENIOR RESIDENT CARE DIRECTOR, CARISA S 461.0 Acute Maxillary Sinusitis 04/27/2011 BILL SENIOR RESIDENT CARE DIRECTOR, CARISA S 727.43 Ganglion Unspecified 04/27/2011 BILL SENIOR RESIDENT CARE DIRECTOR, CARISA S 461.0 Acute Maxillary Sinusitis 04/27/2011 BILL SENIOR RESIDENT CARE DIRECTOR, CARISA S 727.43 Ganglion Unspecified 04/27/2011 MORRISSEY SENIOR RESIDENT CARE DIRECTOR, BALBIR R 461.0 Acute Maxillary Sinusitis 04/27/2011 MORRISSEY SENIOR RESIDENT CARE DIRECTOR, BALBIR R 727.43 Ganglion Unspecified 04/27/2011 JAZZMINE SENIOR RESIDENT CARE DIRECTOR, RUTH A 46 1.0 Acute Maxillary Sinusitis 04/27/2011 JAZZMINE SENIOR RESIDENT CARE DIRECTOR, RUTH A 727.43 Ganglion Unspecified 04/27/2011 BILL SENIOR RESIDENT CARE DIRECTOR, CARISA S 461.0 Acute Maxillary Sinusitis 04/27/2011 BILL SENIOR RESIDENT CARE DIRECTOR, CARISA S 727.43 Ganglion Unspecified 04/27/2011 BILL SENIOR RESIDENT CARE DIRECTOR, CARISA S 461.0 Acute Maxillary Sinusitis 04/27/2011 BILL SENIOR RESIDENT CARE DIRECTOR, CARISA S 727.43 Ganglion Unspecified 04/27/2011 GHANSHYAM SENIOR RESIDENT CARE DIRECTOR, BALBIR R 461.0 Acute Maxillary Sinusitis 04/27/2011 MORRISSEY SENIOR RESIDENT CARE DIRECTOR, BALBIR R 727.43 Ganglion Unspecified 04/27/2011 BILL SENIOR RESIDENT CARE DIRECTOR, CARISA S 461.0 Acute Maxillary Sinusitis 04/27/2011 BILL SENIOR RESIDENT CARE DIRECTOR, CARISA S 727.43 Ganglion Unspecified 04/27/2011 BILL SENIOR RESIDENT CARE DIRECTOR, CARISA S 461.0 Acute Maxillary Sinusitis 04/27/2011 BILL SENIOR RESIDENT CARE DIRECTOR, CARISA S 727.43 Ganglion Unspecified 04/27/2011 BILL SENIOR RESIDENT CARE DIRECTOR, CARISA S 461.0 Acute Maxillary Sinusitis 04/27/2011 BILL SENIOR RESIDENT CARE DIRECTOR, CARISA S 727.43 Ganglion Unspecified 07/01/2011 Ot [...] S 300.00 ANXIETY DISORDER NOS 07/15/2011 GHANSHYAM SENIOR RESIDENT CARE DIRECTOR, BALBIR R 300.00 ANXIETY DISORDER NOS 07/15/2011 JAZZMINECelso FISHER RUTH A 300.00 ANXIETY DISORDER NOS 07/15/2011 BILL SENIOR RESIDENT CARE DIRECTOR, CARISA S 300.00 ANXIETY DISORDER NOS 07/15/2011 BILL SENIOR RESIDENT CARE DIRECTOR, CARISA S 300.00 ANXIETY DISORDER NOS 07/15/2011 GHANSHYAM FISHER, BALBIR R 300.00 ANXIETY DISORDER NOS 07/15/2011 BILL SENIOR RESIDENT CARE DIRECTOR, CARISA S 300.00 ANXIETY DISORDER NOS 07/15/2011 BILL FISHER, CARISA S 300.00 ANXIETY DISORDER NOS 07/15/2011 BILL SENIOR RESIDENT CARE DIRECTOR, CARISA S 300.00 ANXIETY DISORDER NOS 08/18/2011 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 08/18/2011 PETERSON NAHOMY PICKETT K 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 08/18/2011 [...] 465.9 UPPE R RESPIRATORY INFECTION 08/25/2011 PETERSON DO NAHOMY K 465.9 UPPER RESPIRATORY INFECTION 08/25/2011 465.9 UPPE R RESPIRATORY INFECTION 08/25/2011 465.9 UPPE R RESPIRATORY INFECTION 08/25/2011 465.9 UPPE R RESPIRATORY INFECTION 08/25/2011 465.9 UPPE R RESPIRATORY INFECTION 08/25/2011 PETERSON DO NAHOMY K 465.9 UPPER RESPIRATORY INFECTION 08/25/2011 BALBIR MORRISSEY APRN R 465.9 UPPER RESPIRATORY INFECTION 08/25/2011 BILL SENIOR RESIDENT CARE DIRECTOR, CARISA S 465.9 UPPER RESPIRATORY INFECTION 08/25/2011 BILL SENIOR RESIDENT CARE DIRECTORGEORGETTECARISA S 465.9 UPPER RESPIRATORY INFECTION 08/25/2011 RADHA MORRISSEY APRNIA R 465.9 UPPER RESPIRATORY INFECTION 08/25/2011 JAZZMINE SENIOR RESIDENT CARE DIRECTOR, RUTH A 46 5.9 UPPER RESPIRATORY INFECTION 08/25/2011 BILL SENIOR RESIDENT CARE DIRECTOR, CARISA S 465.9 UPPER RESPIRATORY INFECTION 08/25/2011 BILL SENIOR RESIDENT CARE DIRECTOR, CARISA S 465.9 UPPER RESPIRATORY INFECTION 08/25/2011 RADHA MORRISSEY APRNIA R 465.9 UPPER RESPIRATORY INFECTION 08/25/2011 BILL SENIOR RESIDENT CARE DIRECTOR, CARISA S 465.9 UPPER RESPIRATORY INFECTION 08/25/2011 BILL SENIOR RESIDENT CARE DIRECTORGEORGETTE HoustonNDA S 465.9 UPPER RESPIRATORY INFECTION 08/25/2011 BILL SENIOR RESIDENT CARE DIRECTORGEORGETTE HoustonNDA S 465.9 UPPER RESPIRATORY INFECTION 09/01/2011 311 MO DEP RESS NOS 09/01/2011 PETERSON DO, NAHOMY K 311 MO DEPRESS NOS 09/01/2011 311 MO DEP RESS NOS 09/01/2011 311 MO DEP RESS NOS 09/01/2011 311 MO DEP RESS NOS 09/01/2011 311 MO DEP RESS NOS 09/01/2011 PETERSON CAROL PICKETTA K 311 MO DEPRESS NOS 09/01/2011 BALBIR MORRISSEY APRN R 311 MO DEPRESS NOS 09/01/2011 SHANNON KHAN APRNA S 311 MO DEPRESS NOS 09/01/2011 SHANNON KHAN APRNA S 311 MO DEPRESS NOS 09/01/2011 BALBIR MORRISSEY APRN R 311 MO DEPRESS NOS 09/01/2011 JAZZMINE SENIOR RESIDENT CARE DIRECTOR, RUTH A 31 1 MO DEPRESS NOS 09/01/2011 GEORGETTE KHAN APRNNDA S 311 MO DEPRESS NOS 09/01/2011 SHANNON KHAN APRNA S 311 MO DEPRESS NOS 09/01/2011 BALBIR MORRISSEY APRN R 311 MO DEPRESS NOS 09/01/2011 GEORGETTE KHAN APRNNDA S 311 MO DEPRESS NOS 09/01/2011 SHANNON KHAN APRNA S 311 MO DEPRESS NOS 09/01/2011 SHANNON KHAN APRNA S 311 MO DEPRESS NOS 09/02/2011 466.0 [...] MORRISSEY APRN R 466.0 ACUTE BRONCHITIS 09/02/2011 RUTH DOVER APRN A 46 6.0 ACUTE BRONCHITIS 09/02/2011 BILL [...] 462 ACUTE PHARYNGITIS 05/16/2012 BALBIR MORRISSEY APRN 462 ACUTE PHARYNGITIS 05/16/2012 GEORGETTE KHAN APRNNDA S 462 ACUTE PHARYNGITIS 05/16/2012 GEORGETTE KHAN APRNNDA S 462 ACUTE PHARYNGITIS 05/16/2012 BALBIR MORRISSEY APRN R 462 ACUTE PHARYNGITIS 05/16/2012 RUTH DOVER APRN A 46 2 ACUTE PHARYNGITIS 05/16/2012 BILL SENIOR RESIDENT CARE DIRECTORGEORGETTE HoustonNDA S 462 ACUTE PHARYNGITIS 05/16/2012 GEORGETTE KHAN APRNNDA S 462 ACUTE PHARYNGITIS 05/16/2012 BALBIR MORRISSEY APRN R 462 ACUTE PHARYNGITIS 05/16/2012 BILL FISHER, CARISA S 462 ACUTE PHARYNGITIS 05/16/2012 GEORGETTE KHAN APRNNDA S 462 ACUTE PHARYNGITIS 05/16/2012 GEORGETTE KHAN APRNNDA S 462 ACUTE PHARYNGITIS 05/25/2012 V04.81 FLU [...] (3 YRS AND ABOVE, IM) 05/25/2012 BILL SENIOR RESIDENT CARE DIRECTOR, CARISA S V04.81 FLU DX (3 YRS AND ABOVE, IM) 05/25/2012 BILL SENIOR RESIDENT CARE DIRECTOR, CARISA S V04.81 FLU DX (3 YRS AND ABOVE, IM) 05/25/2012 GHANSHYAM CHRISTYN, BALBIR R V04.81 FLU DX (3 YRS AND ABOVE, IM) 05/25/2012 BILL SENIOR RESIDENT CARE DIRECTOR, CARISA S V04.81 FLU DX (3 YRS AND ABOVE, IM) 05/25/2012 BILL SENIOR RESIDENT CARE DIRECTOR, CARISA S V04.81 FLU DX (3 YRS AND ABOVE, IM) 05/25/2012 BILL SENIOR RESIDENT CARE DIRECTOR, CARISA S V04.81 FLU DX (3 YRS AND ABOVE, IM) 08/16/2012 461.9 SINU SITIS ACUTE 08/16/2012 784.0 HEADACHE 08/16/2012 PETERSON DO NAHOMY K 461.9 SINUSITIS ACUTE 08/16/2012 PETERSON DONAHOMY K 784.0 HEADACHE 08/16/2012 461.9 SINU SITIS ACUTE 08/16/2012 784.0 HEADACHE 08/16/2012 461.9 SINU SITIS ACUTE 08/16/2012 784.0 HEADACHE 08/16/2012 461.9 SINU SITIS ACUTE 08/16/2012 784.0 HEADACHE 08/16/2012 461.9 SINU SITIS ACUTE 08/16/2012 784.0 HEADACHE 08/16/2012 PETERSON DO NAHOMY K 461.9 SINUSITIS ACUTE 08/16/2012 PETERSON DO NAHOMY K 784.0 HEADACHE 08/16/2012 GHANSHYAM CHRISTYNFANYBALBIR R 461.9 SINUSITIS ACUTE 08/16/2012 GHANSHYAM CHRISTYNFANYBALBIR R 784.0 HEADACHE 08/16/2012 BILL SENIOR RESIDENT CARE DIRECTOR, CARISA S 461.9 SINUSITIS ACUTE 08/16/2012 BILL SENIOR RESIDENT CARE DIRECTOR, CARISA S 784.0 HEADACHE 08/16/2012 BILL SENIOR RESIDENT CARE DIRECTOR, CARISA S 461.9 SINUSITIS ACUTE 08/16/2012 BILL SENIOR RESIDENT CARE DIRECTOR, CARISA S 784.0 HEADACHE 08/16/2012 GHANSHYAM CHRISTYNFANYBALBIR R 461.9 SINUSITIS ACUTE 08/16/2012 MORRISSEY SENIOR RESIDENT CARE DIRECTOR, BALBIR R 784.0 HEADACHE 08/16/2012 JAZZMINE SENIOR RESIDENT CARE DIRECTOR, RUHT A 46 1.9 SINUSITIS ACUTE 08/16/2012 JAZZMINE SENIOR RESIDENT CARE DIRECTOR, RUTH A 78 4.0 HEADACHE 08/16/2012 BILL SENIOR RESIDENT CARE DIRECTOR, CARISA S 461.9 SINUSITIS ACUTE 08/16/2012 BILL SENIOR RESIDENT CARE DIRECTOR, CARISA S 784.0 HEADACHE 08/16/2012 MORRISSEY SENIOR RESIDENT CARE DIRECTOR, BALBIR R 461.9 SINUSITIS ACUTE 08/16/2012 MORRISSEY SENIOR RESIDENT CARE DIRECTOR, BALBIR R 784.0 HEADACHE 08/16/2012 BILL SENIOR RESIDENT CARE DIRECTOR, CARISA S 461.9 SINUSITIS ACUTE 08/16/2012 BILL SENIOR RESIDENT CARE DIRECTOR, CARISA S 784.0 HEADACHE 08/16/2012 BILL SENIOR RESIDENT CARE DIRECTOR, CARISA S 461.9 SINUSITIS ACUTE 08/16/2012 BILL SENIOR RESIDENT CARE DIRECTOR, CARISA S 784.0 HEADACHE 08/16/2012 BILL SENIOR RESIDENT CARE DIRECTOR, CARISA S 461.9 SINUSITIS ACUTE 08/16/2012 BILL SENIOR RESIDENT CARE DIRECTOR, CARISA S 784.0 HEADACHE 09/04/2012 NAHOMY PETERSON [...] 09/04/2012 NAHOMY PETERSON DO 278.00 OBESITY 09/04/2012 PETERSON DO, NAHOMY K V73.81 HPV SCREENING 09/04/2012 PETERSON DO, NAHOMY K V76.2 CERVICAL CANCER SCREENING (PAP SMEAR) 09/04/2012 GHANSHYAM FISHER BALBIR R 278.00 OBESITY 09/04/2012 GHANSHYAM SENIOR RESIDENT CARE DIRECTOR, BALBIR R V73.81 HPV SCREENING 09/04/2012 GHANSHYAM SENIOR RESIDENT CARE DIRECTOR, BALBIR R V76.2 CERVICAL CANCER SCREENING (PAP SMEAR) 09/04/2012 BILL FISHER, CARISA S 278.00 OBESITY 09/04/2012 BILL CHRISTYN, CARISA S V73.81 HPV SCREENING 09/04/2012 BILL CHRISTYN, CARISA S V76.2 CERVICAL CANCER SCREENING (PAP [...] FISHER RUTH A V73.81 HPV SCREENING 09/04/2012 JAZZMINE FISHER, RUTH A V7 6.2 CERVICAL CANCER SCREENING [...] FISHER CARISA S 278.00 OBESITY 09/04/2012 BILL SENIOR RESIDENT CARE DIRECTOR, CARISA S V73.81 HPV SCREENING 09/04/2012 BILL SENIOR RESIDENT CARE DIRECTOR, CARISA S V76.2 CERVICAL CANCER SCREENING (PAP SMEAR) 09/04/2012 BILL SENIOR RESIDENT CARE DIRECTOR, CARISA S 278.00 OBESITY 09/04/2012 BILL SENIOR RESIDENT CARE DIRECTOR, CARISA S V73.81 HPV SCREENING 09/04/2012 BILL SENIOR RESIDENT CARE DIRECTOR, CARISA S V76.2 CERVICAL CANCER SCREENING (PAP SMEAR) 09/04/2012 BILL SENIOR RESIDENT CARE DIRECTOR, CARISA S 278.00 OBESITY 09/04/2012 BILL SENIOR RESIDENT CARE DIRECTOR, CARISA S V73.81 HPV SCREENING 09/04/2012 BILL SENIOR RESIDENT CARE DIRECTOR, CARISA S V76.2 CERVICAL CANCER SCREENING (PAP SMEAR) 11/07/2012 786.2 cough 11/07/2012 786.2 cough 11/07/2012 786.2 cough 11/07/2012 786.2 cough 11/07/2012 NAHOMY PETERSON DO 786.2 cough 11/07/2012 RADHA MORRISSEY APRNIA R 786.2 cough 11/07/2012 BILL SENIOR RESIDENT CARE DIRECTOR, CARISA S 786.2 COUGH 11/07/2012 BILL SENIOR RESIDENT CARE DIRECTOR, CARISA S 786.2 COUGH 11/07/2012 RADHA MORRISSEY APRNIA R 786.2 COUGH 11/07/2012 RUTH DOVER APRN A 78 6.2 COUGH 11/07/2012 BILL SENIOR RESIDENT CARE DIRECTOR, CARISA S 786.2 COUGH 11/07/2012 RADHA MORRISSEY APRNIA R 786.2 COUGH 11/07/2012 BILL SENIOR RESIDENT CARE DIRECTOR, CARISA S 786.2 COUGH 11/07/2012 BILL SENIOR RESIDENT CARE DIRECTOR, CARISA S 786.2 COUGH 11/07/2012 BILL SENIOR RESIDENT CARE DIRECTOR, CARISA S 786.2 COUGH 11/16/2012 Ot 486 PNEUMO MAHENDRA, ORGANISM NOS 11/16/2012 Ot 784.0 HEAD ACHE 11/21/2012 701.9 SKIN TAG 11/21/2012 701.9 SKIN TAG 11/21/2012 701.9 SKIN TAG 11/21/2012 NAHOMY PETERSON DO K 701.9 SKIN TAG 11/21/2012 BALBIR MORRISSEY APRN R 701.9 SKIN TAG 11/21/2012 BILL FISHER, CARISA S 701.9 SKIN TAG 11/21/2012 BILL FISHER, CARISA S 701.9 SKIN TAG 11/21/2012 RADHA MORRISSEY APRNIA R 701.9 SKIN TAG 11/21/2012 JAZZMINELIZZ FISHER, RUTH A 70 1.9 SKIN TAG 11/21/2012 BILL FISHER CARISA S 701.9 SKIN TAG 11/21/2012 RADHA MORRISSEY APRNIA R 701.9 SKIN TAG 11/21/2012 BILL SENIOR RESIDENT CARE DIRECTOR, CARISA S 701.9 SKIN TAG 11/21/2012 BILL SENIOR RESIDENT CARE DIRECTOR, CARISA S 701.9 SKIN TAG 11/21/2012 BILL SENIOR RESIDENT CARE DIRECTOR, CARISA S 701.9 SKIN TAG 11/22/2012 Ot [...] ER DRUG ALLERGY 11/23/2012 NAHOMY PETERSON DO K 995.27 OTHER DRUG ALLERGY 11/23/2012 RADHA MORRISSEY APRNIA R 995.27 OTHER DRUG ALLERGY 11/23/2012 BILL FISHER CARISA S 995.27 OTHER DRUG ALLERGY 11/23/2012 GEORGETTE KHAN APRNNDA S 995.27 OTHER DRUG ALLERGY 11/23/2012 RADHA MORRISSEY APRNIA R 995.27 OTHER DRUG ALLERGY 11/23/2012 RUTH DOVER APRN A 995.27 OTHER DRUG ALLERGY 11/23/2012 BILL FISHER CARISA S 995.27 OTHER DRUG ALLERGY 11/23/2012 BALBIR MORRISSEY APRN R 995.27 OTHER DRUG ALLERGY 11/23/2012 BILL SENIOR RESIDENT CARE DIRECTOR, CARISA S 995.27 OTHER DRUG ALLERGY 11/23/2012 BILL SENIOR RESIDENT CARE DIRECTOR, CARISA S 995.27 OTHER DRUG ALLERGY 11/23/2012 BILL SENIOR RESIDENT CARE DIRECTOR, CARISA S 995.27 OTHER DRUG ALLERGY 11/27/2012 Ot 729.1 MYAL GOPAL AND MYOSITIS NOS 11/27/2012 Ot 787.01 JASON SEA WITH VOMITING 11/27/2012 Ot 787.91 MARNIE RRHEA 01/23/2013 Ot 462 ACUTE PHARYNGITIS 03/01/2013 995.3 EDWAR RGY UNSPECIFIED NOT ELSEWHERE CLASSIFIED 03/01/2013 PETERSON DO NAHOMY K 995.3 ALLERGY UNSPECIFIED NOT ELSEWHERE CLASSIFIED 03/01/2013 GHANSHYAM SENIOR RESIDENT CARE DIRECTOR, BALBIR R 995.3 ALLERGY UNSPECIFIED NOT ELSEWHERE CLASSIFIED 03/01/2013 BILL SENIOR RESIDENT CARE DIRECTOR, CARISA S 995.3 ALLERGY UNSPECIFIED NOT ELSEWHERE CLASSIFIED 03/01/2013 BILL SENIOR RESIDENT CARE DIRECTOR, CARISA S 995.3 ALLERGY UNSPECIFIED NOT ELSEWHERE CLASSIFIED 03/01/2013 FANY MORRISSEY APRNRICIA R 995.3 ALLERGY UNSPECIFIED NOT ELSEWHERE CLASSIFIED 03/01/2013 JAZZMINE SENIOR RESIDENT CARE DIRECTOR, RUTH A 99 5.3 ALLERGY UNSPECIFIED NOT ELSEWHERE CLASSIFIED 03/01/2013 BILL SENIOR RESIDENT CARE DIRECTOR, CARISA S 995.3 ALLERGY UNSPECIFIED NOT ELSEWHERE CLASSIFIED 03/01/2013 GHANSHYAM SENIOR RESIDENT CARE DIRECTOR, BALBIR R 995.3 ALLERGY UNSPECIFIED NOT ELSEWHERE CLASSIFIED 03/01/2013 BILL SENIOR RESIDENT CARE DIRECTOR, CARISA S 995.3 ALLERGY UNSPECIFIED NOT ELSEWHERE CLASSIFIED 03/01/2013 BILL SENIOR RESIDENT CARE DIRECTOR, CARISA S 995.3 ALLERGY UNSPECIFIED NOT ELSEWHERE CLASSIFIED 03/01/2013 BILL SENIOR RESIDENT CARE DIRECTOR, CARISA S 995.3 ALLERGY UNSPECIFIED NOT ELSEWHERE CLASSIFIED 05/16/2013 PETERSON DO, NAHOMY K 789.09 ABDOMINAL PAIN OTHER SPECIFIED SITE 05/16/2013 FANY MORRISSEY APRNRICIA R 789.09 ABDOMINAL PAIN OTHER SPECIFIED SITE 05/16/2013 BILL SENIOR RESIDENT CARE DIRECTOR, CARISA S 789.09 ABDOMINAL PAIN OTHER SPECIFIED SITE 05/16/2013 BILL FISHER CARISA S 789.09 ABDOMINAL PAIN OTHER SPECIFIED SITE 05/16/2013 FANY MORRISSEY APRNRICIA R 789.09 ABDOMINAL PAIN OTHER SPECIFIED SITE 05/16/2013 JAZZMINE SENIOR RESIDENT CARE DIRECTOR, RUTH A 789.09 ABDOMINAL PAIN OTHER SPECIFIED SITE 05/16/2013 BILL SENIOR RESIDENT CARE DIRECTOR, CARISA S 789.09 ABDOMINAL PAIN OTHER SPECIFIED SITE 05/16/2013 GHANSHYAM FISHER BALBIR R 789.09 ABDOMINAL PAIN OTHER SPECIFIED SITE 05/16/2013 BILL SENIOR RESIDENT CARE DIRECTOR, CARISA S 789.09 ABDOMINAL PAIN OTHER SPECIFIED SITE 05/16/2013 BILL SENIOR RESIDENT CARE DIRECTOR, CARISA S 789.09 ABDOMINAL PAIN OTHER SPECIFIED SITE 05/16/2013 BILL SENIOR RESIDENT CARE DIRECTOR, CARISA S 789.09 ABDOMINAL PAIN OTHER SPECIFIED SITE 06/04/2013 FANY MORRISSEY APRNRICIA R 729.5 PAIN IN LIMB 06/04/2013 BILL SENIOR RESIDENT CARE DIRECTOR, CARISA S 729.5 PAIN IN LIMB 06/04/2013 BILL SENIOR RESIDENT CARE DIRECTOR, CARISA S 729.5 PAIN IN LIMB 06/04/2013 FANY MORRISSEY APRNRICIA R 729.5 PAIN IN LIMB 06/04/2013 JAZZMINE SENIOR RESIDENT CARE DIRECTOR, RUTH A 72 9.5 PAIN IN LIMB 06/04/2013 BILL SENIOR RESIDENT CARE DIRECTOR, CARISA S 729.5 PAIN IN LIMB 06/04/2013 FANY MORRISSEY APRNRICIA R 729.5 PAIN IN LIMB 06/04/2013 BILL SENIOR RESIDENT CARE DIRECTOR, CARISA S 729.5 PAIN IN LIMB 06/04/2013 BILL SENIOR RESIDENT CARE DIRECTOR, CARISA S 729.5 PAIN IN LIMB 06/04/2013 BILL SENIOR RESIDENT CARE DIRECTOR, CARISA S 729.5 PAIN IN LIMB 06/18/2013 BILL SENIOR RESIDENT CARE DIRECTOR, CARISA S 573.8 OTHER SPECIFIED DISORDERS OF LIVER 06/18/2013 BILL SENIOR RESIDENT CARE DIRECTOR, CARISA S 573.8 OTHER SPECIFIED DISORDERS OF LIVER 06/18/2013 FANY MORRISSEY APRNRICIA R 573.8 OTHER SPECIFIED DISORDERS OF LIVER 06/18/2013 JAZZMINE SENIOR RESIDENT CARE DIRECTOR, RUTH A 57 3.8 OTHER SPECIFIED DISORDERS OF LIVER 06/18/2013 BILL SENIOR RESIDENT CARE DIRECTOR, CARISA S 573.8 OTHER SPECIFIED DISORDERS OF LIVER 06/18/2013 FANY MORRISSEY APRNRICIA R 573.8 OTHER SPECIFIED DISORDERS OF LIVER 06/18/2013 BILL FISHER, CARISA S 573.8 OTHER SPECIFIED DISORDERS OF LIVER 06/18/2013 BILL CHRISTYN, CARISA S 573.8 OTHER SPECIFIED DISORDERS OF LIVER 06/18/2013 BILL SENIOR RESIDENT CARE DIRECTOR, CARISA S 573.8 OTHER SPECIFIED DISORDERS OF LIVER 08/01/2013 Ot 462 ACUTE PHARYNGITIS 08/01/2013 Ot 487.1 FLU W RESP MANIFEST NEC 10/09/2013 BILL FISHER, CARISA S 251.1 HYPERINSULINISM 10/09/2013 BILL FISHER, CARISA S 780.79 fatigue 10/09/2013 GHANSHYAM FISHER, BALBIR R 251.1 HYPERINSULINISM 10/09/2013 GHANSHYAM FISHER, BALBIR R 780.79 fatigue 10/09/2013 JAZZMINE FISHER, RUTH A 25 1.1 HYPERINSULINISM 10/09/2013 JAZZMINE APRN, RUTH A 780.79 fatigue 10/09/2013 BILL FISHER CARISA S 251.1 HYPERINSULINISM 10/09/2013 BILL FISHER, CARISA S 780.79 FATIGUE 10/09/2013 GHANSHYAM FISHER, BALBIR R 251.1 HYPERINSULINISM 10/09/2013 GHANSHYAM FISHER, BALBIR R 780.79 FATIGUE 10/09/2013 BILL FISHER, CARISA S 251.1 HYPERINSULINISM 10/09/2013 BILL FISHER, CARISA S 780.79 FATIGUE 10/09/2013 BILL FISHER, CARISA S 251.1 HYPERINSULINISM 10/09/2013 BILL FISHER, CARISA S 780.79 FATIGUE 10/09/2013 BILL CHRISTYN, CARISA S 251.1 HYPERINSULINISM 10/09/2013 BILL CHRISTYN, CARISA S 780.79 FATIGUE 12/27/2013 GHANSHYAM FISHER BALBIR R 034.0 STREP THROAT 12/27/2013 JAZZMINE FISHER, RUTH A 03 4.0 STREP THROAT 12/27/2013 GEORGETTE KHAN APRNNDA S 034.0 STREP THROAT 12/27/2013 GHANSHYAM FISHER BALBIR R 034.0 STREP THROAT 12/27/2013 BILL FISHER CARISA S 034.0 STREP THROAT 12/27/2013 BILL SENIOR RESIDENT CARE DIRECTOR, CARISA S 034.0 STREP THROAT 12/27/2013 BILL SENIOR RESIDENT CARE DIRECTOR, CARISA S 034.0 STREP THROAT 01/03/2014 JAZZMINE CHRISTYN, RUTH A 59 9.0 URINARY TRACT INFECTION 01/03/2014 BILL SENIOR RESIDENT CARE DIRECTOR, CARISA S 599.0 URINARY TRACT INFECTION 01/03/2014 FANY MORRISSEY APRNRICIA R 599.0 URINARY TRACT INFECTION 01/03/2014 BILL SENIOR RESIDENT CARE DIRECTOR, CARISA S 599.0 URINARY TRACT INFECTION 01/03/2014 BILL SENIOR RESIDENT CARE DIRECTOR, CARISA S 599.0 URINARY TRACT INFECTION 01/03/2014 BILL SENIOR RESIDENT CARE DIRECTOR, CARISA S 599.0 URINARY TRACT INFECTION 02/10/2014 ENMA GARCIA MD Ot 346.90 MIGRAINE UNSPECIFIED W/O INTRACT MGRN W/ 02/10/2014 ENMA GARCIA MD Ot 784 .0 HEADACHE 02/18/2014 BILL FISHER, CARISA S 307.81 TENSION HEADACHE 02/18/2014 BILL FISHER, CARISA S 401.1 HYPERTENSION, BENIGN ESSENTIAL 02/18/2014 GHANSHYAM FISHER BALBIR R 307.81 TENSION HEADACHE 02/18/2014 GHANSHYAM FISHER BALBIR R 401.1 HYPERTENSION, BENIGN ESSENTIAL 02/18/2014 BILL FISHER, CARISA S 307.81 TENSION HEADACHE 02/18/2014 BILL FISHER, CARISA S 401.1 HYPERTENSION, BENIGN ESSENTIAL 02/18/2014 BILL FISHER, CARISA S 307.81 TENSION HEADACHE 02/18/2014 BILL SENIOR RESIDENT CARE DIRECTOR, CARISA S 401.1 HYPERTENSION, BENIGN ESSENTIAL 02/18/2014 BILL SENIOR RESIDENT CARE DIRECTOR, CARISA S 307.81 TENSION HEADACHE 02/18/2014 BILL SENIOR RESIDENT CARE DIRECTOR, CARISA S 401.1 HYPERTENSION, BENIGN ESSENTIAL 03/08/2014 FANY MORRISSEY APRNRICIA R 477.8 ALLERGIC RHINITIS DUE TO OTHER ALLERGEN 03/08/2014 GHANSHYAM FISHER BALBIR R 784.0 HEADACHE 03/08/2014 GEORGETTE KHAN APRNNDA S 477.8 ALLERGIC RHINITIS DUE TO OTHER ALLERGEN 03/08/2014 BILL SENIOR RESIDENT CARE DIRECTOR, CARISA S 784.0 HEADACHE 03/08/2014 BILL SENIOR RESIDENT CARE DIRECTOR, CARISA S 477.8 ALLERGIC RHINITIS DUE TO OTHER ALLERGEN 03/08/2014 BILL SENIOR RESIDENT CARE DIRECTOR, CARISA S 784.0 HEADACHE 03/08/2014 BILL SENIOR RESIDENT CARE DIRECTOR, CARISA S 477.8 ALLERGIC RHINITIS DUE TO OTHER ALLERGEN 03/08/2014 BILL SENIOR RESIDENT CARE DIRECTOR, CARISA S 784.0 HEADACHE 09/17/2014 BILL SENIOR RESIDENT CARE DIRECTOR, CARISA S 465.9 UPPER RESPIRATORY INFECTION 09/17/2014 BILL SENIOR RESIDENT CARE DIRECTOR, CARISA S 465.9 UPPER RESPIRATORY INFECTION 09/17/2014 BILL SENIOR RESIDENT CARE DIRECTOR, CARISA S 465.9 UPPER RESPIRATORY INFECTION 09/25/2014 BILL SENIOR RESIDENT CARE DIRECTOR, CARISA S 346.90 MIGRAINE HEADACHE 09/25/2014 BILL SENIOR RESIDENT CARE DIRECTOR, CARISA S 786.2 COUGH 09/25/2014 BILL SENIOR RESIDENT CARE DIRECTOR, CARISA S 346.90 MIGRAINE HEADACHE 09/25/2014 BILL SENIOR RESIDENT CARE DIRECTOR, CARISA S 786.2 COUGH 09/25/2014 BILL SENIOR RESIDENT CARE DIRECTOR, CARISA S 346.90 MIGRAINE HEADACHE 09/25/2014 BILL SENIOR RESIDENT CARE DIRECTOR, CARISA S 786.2 COUGH 10/29/2014 ANDREEA WASHINGTON DO Ot 300.00 ANXIETY STATE NOS 10/29/2014 ANDREEA WASHINGTON DO Ot 529.6 GLOSSODYNIA 06/12/2016 Ot 573.8 LIVE R DISORDERS NEC 06/12/2016 Ot 789.09 ABD OMINAL PAIN, OTHER SPECIFIED SITE 06/12/2016 Ot 573.8 LIVE R DISORDERS NEC 06/12/2016 CARISA KHAN INCIDENT COORDINATOR Ot 573.8 LIVER DISORDERS NEC 06/14/2016 TORRES [...] 06/14/2016 TORRES BANKS MD Ot Z79. 84 HALFWAY (CURRENT) USE OF ORAL HYPOGLYC 07/13/2016 ANNA OSBORN MDNT A Ot E11. 9 TYPE 2 DIABETES MELLITUS WITHOUT COMPLIC 07/13/2016 LEIGHA OSBORN MD A Ot I10 ESSENTIAL (PRIMARY) HYPERTENSION 07/13/2016 ANNA OSBORN MDNT A Ot J02. 0 STREPTOCOCCAL PHARYNGITIS 07/13/2016 LEIGHA OSBORN MD A Ot J02. 9 ACUTE PHARYNGITIS, UNSPECIFIED 07/13/2016 LEIGHA OSBORN MD A Ot Z79. 84 HALFWAY (CURRENT) USE OF ORAL HYPOGLYC 07/13/2016 LEIGHA OSBORN MD A Ot Z79.899 OTHER HALFWAY (CURRENT) DRUG THERAPY 07/14/2016 LEIGHA OSBORN MD A Ot E11. 9 TYPE 2 DIABETES MELLITUS WITHOUT COMPLIC 07/14/2016 LEIGHA OSBORN MD A Ot I10 ESSENTIAL (PRIMARY) HYPERTENSION 07/14/2016 ANNA OSBORN MDNT A Ot J02. 0 STREPTOCOCCAL PHARYNGITIS 07/14/2016 LEIGHA OSBORN MD A Ot J02. 9 ACUTE PHARYNGITIS, UNSPECIFIED 07/14/2016 LEIGHA OSBORN MD A Ot Z79. 84 HALFWAY (CURRENT) USE OF ORAL HYPOGLYC 07/14/2016 LEIGHA OSBORN MD A Ot Z79.899 OTHER BLOW DOWN OPERATOR (CURRENT) DRUG THERAPY 07/18/2016 LEIGHA OSBORN MD A Ot E11. 9 TYPE 2 DIABETES MELLITUS WITHOUT COMPLIC 07/18/2016 ANNA OSBORN MDNT A Ot I10 ESSENTIAL (PRIMARY) HYPERTENSION 07/18/2016 ANNA OSBORN MDNT A Ot J02. 0 STREPTOCOCCAL PHARYNGITIS 07/18/2016 LEIGHA OSBORN MD A Ot J02. 9 ACUTE PHARYNGITIS, UNSPECIFIED 07/18/2016 ANNA OSBORN MDNT A Ot Z79. 84 HALFWAY (CURRENT) USE OF ORAL HYPOGLYC 07/18/2016 ANNA OSBORN MDNT A Ot Z79.899 OTHER HALFWAY (CURRENT) DRUG THERAPY 12/04/2016 ALLEGRA VILLATORO APRN [...] 12/04/2016 ALLEGRA VILLATORO APRN Ot Y92.39 [facility] 12/04/2016 ALLEGRA VILLATORO APRN Ot Y99 .8 OTHER EXTERNAL CAUSE STATUS 12/04/2016 ALLEGRA VILLATORO APRN Ot Z79.84 BLOW DOWN OPERATOR (CURRENT) USE OF ORAL HYPOGLYC 12/06/2016 ALLEGRA [...] 12/06/2016 ALLEGRA VILLATORO APRN Ot Y92.39 [facility] 12/06/2016 ALLEGRA VILLATORO APRN Ot Y99 .8 OTHER EXTERNAL CAUSE STATUS 12/06/2016 ALLEGRA VILLATORO APRN Ot Z79.84 HALFWAY (CURRENT) USE OF ORAL HYPOGLYC 02/07/2017 FELIX DO ANDREEA K Ot E11.9 TYPE 2 DIABETES MELLITUS WITHOUT COMPLIC 02/07/2017 FELIX PICKETT ANDREEA K Ot E78.00 PURE HYPERCHOLESTEROLEMIA, UNSPECIFIED 02/07/2017 FELIXTere PICKETT ANDREEA K Ot G43.909 MIGRAINE, UNSP, NOT INTRACTABLE, WITHOUT 02/07/2017 FELIX DO ANDREEA K Ot G47.30 SLEEP APNEA, UNSPECIFIED 02/07/2017 FELIXTere PICKETT ANDREEA K Ot I10 ESSENTIAL (PRIMARY) HYPERTENSION 02/07/2017 FELIX DO, ANDREEA K Ot N39.0 URINARY TRACT INFECTION, SITE NOT SPECIF 02/07/2017 FELIX DO, ANDREEA K Ot R10.12 LEFT UPPER QUADRANT PAIN 02/07/2017 FELIX DO, ANDREEA K Ot Z79.84 BLOW DOWN OPERATOR (CURRENT) USE OF ORAL HYPOGLYC 02/07/2017 FELIX [...] 02/08/2017 FELIX DO, ANDREEA K Ot Z79.84 BLOW DOWN OPERATOR (CURRENT) USE OF ORAL HYPOGLYC 02/08/2017 FELIX [...] OTH NONVE 03/05/2017 SOLO ALFARO Ot Z79.84 BLOW DOWN OPERATOR (CURRENT) USE OF ORAL HYPOGLYC 03/05/2017 SOLO [...] OTH NONVE 03/08/2017 SOLO ALFARO Ot Z79.84 BLOW DOWN OPERATOR (CURRENT) USE OF ORAL HYPOGLYC 03/08/2017 SOLO ALFARO Ot Z82.49 FAMILY HX OF ISCHEM HEART DIS AND OTH DI 03/08/2017 SOLO ALFARO Ot Z87.59 PERSONAL HISTORY OF COMP OF PREG, CHLDBR 09/04/2017 FAITH, JIGAR INCIDENT COORDINATOR Ot E11.9 TYPE 2 DIABETES MELLITUS WITHOUT COMPLIC 09/04/2017 FAITH JIGAR INCIDENT COORDINATOR Ot G44.201 TENSION-TYPE HEADACHE, UNSPECIFIED, INTR 09/04/2017 FAITH, JIGAR INCIDENT COORDINATOR Ot I10 ESSENTIAL (PRIMARY) HYPERTENSION 09/04/2017 FAITH, JIGAR INCIDENT COORDINATOR Ot R51 HEADACHE 09/04/2017 FAITH JIGAR INCIDENT COORDINATOR Ot Z79.84 BLOW DOWN OPERATOR (CURRENT) USE OF ORAL HYPOGLYC 09/04/2017 FAITH JIGAR INCIDENT COORDINATOR Ot Z82.49 FAMILY HX OF ISCHEM HEART DIS AND OTH DI 09/04/2017 FAITH JIGAR INCIDENT COORDINATOR Ot Z87.01 PERSONAL HISTORY OF PNEUMONIA (RECURRENT 09/04/2017 FAITH, JIGAR INCIDENT COORDINATOR Ot Z87.59 PERSONAL HISTORY OF COMP OF PREG, CHLDBR 09/04/2017 FAITH, JIGAR INCIDENT COORDINATOR Ot Z88.5 ALLERGY STATUS TO NARCOTIC AGENT STATUS 09/04/2017 FAITH, JIGAR INCIDENT COORDINATOR Ot Z88.8 ALLERGY STATUS TO OTH DRUG/MEDS/BIOL SUB 09/06/2017 FAITH, JIGAR INCIDENT COORDINATOR Ot E11.9 TYPE 2 DIABETES MELLITUS WITHOUT COMPLIC 09/06/2017 FAITH JIGAR INCIDENT COORDINATOR Ot G44.201 TENSION-TYPE HEADACHE, UNSPECIFIED, INTR 09/06/2017 FAITH JIGAR INCIDENT COORDINATOR Ot I10 ESSENTIAL (PRIMARY) HYPERTENSION 09/06/2017 FAITH JIGAR INCIDENT COORDINATOR Ot R51 HEADACHE 09/06/2017 FAITH JIGAR INCIDENT COORDINATOR Ot Z79.84 BLOW DOWN OPERATOR (CURRENT) USE OF ORAL HYPOGLYC 09/06/2017 FAITH JIGAR INCIDENT COORDINATOR Ot Z82.49 FAMILY HX OF ISCHEM HEART DIS AND OTH DI 09/06/2017 FAITH JIGAR INCIDENT COORDINATOR Ot Z87.01 PERSONAL HISTORY OF PNEUMONIA (RECURRENT 09/06/2017 JIGAR CUEVAS INCIDENT COORDINATOR Ot Z87.59 PERSONAL HISTORY OF COMP OF PREG, CHLDBR 09/06/2017 FAITH, JIGAR INCIDENT COORDINATOR Ot Z88.5 ALLERGY STATUS TO NARCOTIC AGENT STATUS 09/06/2017 FAITH JIGAR INCIDENT COORDINATOR Ot Z88.8 ALLERGY STATUS TO OTH DRUG/MEDS/BIOL SUB 09/08/2017 ALLEGRA VILLATORO APRN Ot B34 .9 VIRAL INFECTION, UNSPECIFIED 09/08/2017 ALLEGRA VILLATORO APRN Ot E11 .9 TYPE 2 DIABETES MELLITUS WITHOUT COMPLIC 09/08/2017 ALLEGRA VILLATORO APRN Ot I10 ESSENTIAL (PRIMARY) HYPERTENSION 09/08/2017 ALLEGRA VILLATORO APRN Ot R51 HEADACHE 09/08/2017 ALLEGRA VILLATORO APRN Ot Z79.84 HALFWAY (CURRENT) USE OF ORAL HYPOGLYC 09/08/2017 ALLEGRA [...] HEADACHE 09/12/2017 ALLEGRA VILLATORO APRN Ot Z79.84 HALFWAY (CURRENT) USE OF ORAL HYPOGLYC 09/12/2017 ALLEGRA [...] Ot N85.2 HYPERTROPHY OF UTERUS 10/18/2017 CARISA KHANP Ot N85.2 HYPERTROPHY OF UTERUS 11/03/2017 CARY ANGLIN SENIOR RESIDENT CARE DIRECTOR Ot M79.605 PAIN IN LEFT LEG 11/03/2017 CARY ANGLIN SENIOR RESIDENT CARE DIRECTOR Ot M79.605 PAIN IN LEFT LEG 11/03/2017 CARY ANGLIN SENIOR RESIDENT CARE DIRECTOR Ot M79.605 PAIN IN LEFT LEG 11/15/2017 CARY ANGLIN SENIOR RESIDENT CARE DIRECTOR Ot M79.605 PAIN IN LEFT LEG 12/05/2017 FELIX DO ANDREEA K Ot E11.9 TYPE 2 DIABETES MELLITUS WITHOUT COMPLIC 12/05/2017 FELIX DO ANDREEA K Ot E66.01 MORBID (SEVERE) OBESITY DUE TO EXCESS CA 12/05/2017 FELIX DO ANDREEA K Ot G43.909 MIGRAINE, UNSP, NOT INTRACTABLE, WITHOUT 12/05/2017 FELIX DO ANDREEA K Ot I10 ESSENTIAL (PRIMARY) HYPERTENSION 12/05/2017 FELIX DO ANDREEA K Ot R10.32 LEFT LOWER QUADRANT PAIN 12/05/2017 FELIX DO ANDREEA K Ot R11.2 NAUSEA WITH VOMITING, UNSPECIFIED 12/05/2017 FELIX DO ANDREEA K Ot R19.7 DIARRHEA, UNSPECIFIED 12/05/2017 FELIX DO ANDREEA K Ot Z68.43 BODY MASS INDEX (BMI) 50-59.9 , ADULT 12/05/2017 FELIX PICKETT ANDREEA K Ot Z82.49 FAMILY HX OF ISCHEM HEART DIS AND OTH DI 12/05/2017 FELIX PICKETT ANDREEA K Ot Z87.01 PERSONAL HISTORY OF PNEUMONIA (RECURRENT 12/05/2017 FELIX ANDREEA PICKETT Ot Z87.59 PERSONAL HISTORY OF COMP OF PREG, CHLDBR 12/05/2017 CAIN WASHINGTON DOA Swetha Ot Z88.5 ALLERGY STATUS TO NARCOTIC AGENT STATUS 12/05/2017 FELIX ANDREEA PICKETT Ot Z88.8 ALLERGY STATUS TO OTH DRUG/MEDS/BIOL SUB 12/06/2017 ANDREEA WASHINGTON DO Ot E11.9 TYPE 2 DIABETES MELLITUS WITHOUT COMPLIC 12/06/2017 FELIX ANDREEA PICKETT Ot E66.01 MORBID (SEVERE) OBESITY DUE TO EXCESS CA 12/06/2017 ANDREEA WASHINGTON DO Ot G43.909 MIGRAINE, UNSP, NOT INTRACTABLE, WITHOUT 12/06/2017 CAIN WASHINGTON DOA Swetha Ot I10 ESSENTIAL (PRIMARY) HYPERTENSION 12/06/2017 FELIX ANDREEA PICKETT Ot R10.32 LEFT LOWER QUADRANT PAIN 12/06/2017 FELIX ANDREEA PICKETT Ot R11.2 NAUSEA WITH VOMITING, UNSPECIFIED 12/06/2017 [place] ANDREEA PICKETT Ot R19.7 DIARRHEA, UNSPECIFIED 12/06/2017 FELIX ANDREEA PICKETT Ot Z68.43 BODY MASS INDEX (BMI) 50-59.9 , ADULT 12/06/2017 ANDREEA WASHINGTON DO Ot Z82.49 FAMILY HX OF ISCHEM HEART DIS AND OTH DI 12/06/2017 ANDREEA WASHINGTON DO Ot Z87.01 PERSONAL HISTORY OF PNEUMONIA (RECURRENT 12/06/2017 ANDREEA WASHINGTON DO Ot Z87.59 PERSONAL HISTORY OF COMP OF PREG, CHLDBR 12/06/2017 FELIX CAIN PICKETTA Swetha Ot Z88.5 ALLERGY STATUS TO NARCOTIC AGENT STATUS 12/06/2017 FELIX CAIN PICKETTA Swetha Ot Z88.8 ALLERGY STATUS TO OTH DRUG/MEDS/BIOL SUB 01/02/2018 LAN ERICKSON, EDUARDO Andrea Ot Z01.818 ENCOUNTER FOR OTHER PREPROCEDURAL EXAMIN 01/03/2018 EDUARDO MONTENEGRO MD Ot Z01.818 ENCOUNTER FOR OTHER PREPROCEDURAL EXAMIN 01/31/2018 EVELINA MEYESR DO Ot K62.5 HEMORRHAGE OF ANUS AND [...] Ot I10 ESSENTIAL (PRIMARY) HYPERTENSION 02/08/2018 LUIGI DO, EVELINA B Ot K29.7 0 GASTRITIS, UNSPECIFIED, WITHOUT BLEEDING 02/08/2018 DELMAN DO, EVELINA B Ot K29.8 0 DUODENITIS WITHOUT BLEEDING 02/08/2018 LUIGI DO, EVELINA B Ot K44.9 DIAPHRAGMATIC HERNIA WITHOUT OBSTRUCTION 02/08/2018 LUIGI DO, EVELINA B Ot K57.3 0 DVRTCLOS OF LG INT W/O PERFORATION OR AB 02/08/2018 LUIGI DO, EVELINA B Ot K63.5 POLYP OF COLON 02/08/2018 LUIGI DO, EVELINA B Ot K64.8 OTHER HEMORRHOIDS 02/08/2018 LUIGI DO, EVELINA B Ot Z68.4 3 BODY MASS INDEX (BMI) 50-59.9 , ADULT 02/13/2018 LUIGI PICKETT EVELINA B Ot E66.0 1 MORBID (SEVERE) OBESITY DUE TO EXCESS CA 02/13/2018 LUIGI DO, EVELINA B Ot G47.3 3 OBSTRUCTIVE SLEEP APNEA (ADULT) (PEDIATR 02/13/2018 HERNANDOMAN DO, EVELINA B Ot I10 ESSENTIAL (PRIMARY) HYPERTENSION 02/13/2018 LUIGI DO, EVELINA B Ot K29.7 0 GASTRITIS, UNSPECIFIED, WITHOUT BLEEDING 02/13/2018 HERNANDOMAN DO, EVELINA B Ot K29.8 0 DUODENITIS WITHOUT BLEEDING 02/13/2018 LUIGI PICKETT, EVELINA B Ot K44.9 DIAPHRAGMATIC HERNIA WITHOUT OBSTRUCTION 02/13/2018 LUIGI PICKETT EVELINA B Ot K57.3 0 DVRTCLOS OF LG INT W/O PERFORATION OR AB 02/13/2018 LUIGI PICKETT, EVELINA B Ot K63.5 POLYP OF COLON 02/13/2018 LUIGI PICKETT EVELINA B Ot K64.8 OTHER HEMORRHOIDS 02/13/2018 LUIGI PICKETT, EVELINA B Ot Z68.4 3 BODY MASS INDEX (BMI) 50-59.9 , ADULT 04/14/2018 CHRISTOFER ERICKSON, TRELL Ruiz Ot M17.12 UNILATERAL PRIMARY OSTEOARTHRITIS, LEFT 04/14/2018 CHRISTOFER ERICKSON, TRELL Ruiz Ot M47.816 SPONDYLOSIS W/O MYELOPATHY OR RADICULOPA 04/26/2018 CHRISTOFER ERICKSON, TRELL Ruiz Ot M17.12 UNILATERAL PRIMARY OSTEOARTHRITIS, LEFT 04/26/2018 TRELL BEAULIEU MD, Ot M47.816 SPONDYLOSIS W/O MYELOPATHY OR RADICULOPA 11/12/2018 CARISA KHAN ABDIRIZAK Ot N85.2 HYPERTROPHY OF UTERUS 11/12/2018 CARY ANGLIN NATALIA Ot M79.605 PAIN IN LEFT LEG 11/12/2018 CHRISTOFER ERICKSON, TRELL Ruiz Ot M17.12 UNILATERAL PRIMARY OSTEOARTHRITIS, LEFT 11/12/2018 CHRISTOFER ERICKSON, TERLL Ruiz Ot M47.816 SPONDYLOSIS W/O MYELOPATHY OR [...] ADULT 11/14/2018 ANDREEA WASHINGTON DO Ot Z79.51 BLOW DOWN OPERATOR (CURRENT) USE OF INHALED STERO 11/14/2018 ANDREEA WASHINGTON DO Ot Z79.84 BLOW DOWN OPERATOR (CURRENT) USE OF ORAL HYPOGLYC 11/14/2018 ANDREEA WASHINGTON DO Ot Z82.49 FAMILY HX OF ISCHEM HEART DIS AND OTH DI 11/14/2018 ANDREEA WASHINGTON DO, Ot Z87.01 PERSONAL HISTORY OF PNEUMONIA (RECURRENT 11/14/2018 ANDREEA WASHINGTON DO, Ot Z87.19 PERSONAL HISTORY OF OTHER DISEASES OF TH 11/14/2018 ANDREEA WASHINGTON DO Ot Z88.5 ALLERGY STATUS TO NARCOTIC AGENT STATUS 11/14/2018 ANDREEA WASHINGTON DO, Ot Z88.8 ALLERGY STATUS TO OTH DRUG/MEDS/BIOL SUB 11/14/2018 FELIX ANDREEA PICKETT Ot Z98.890 OTHER SPECIFIED POSTPROCEDURAL STATES 11/18/2018 ANDREEA WASHINGTON DO Ot E11.9 TYPE 2 DIABETES MELLITUS WITHOUT COMPLIC 11/18/2018 FELIX ANDREEA PICKETT Ot E66.01 MORBID (SEVERE) OBESITY DUE TO EXCESS CA 11/18/2018 ANDREEA WASHINGTON DO Ot I10 ESSENTIAL (PRIMARY) HYPERTENSION 11/18/2018 FELIX ANDREEA Posada Ot K21.9 GASTRO-ESOPHAGEAL REFLUX DISEASE WITHOUT 11/18/2018 FELIX ANDREEA PICKETT Ot M79.605 PAIN IN LEFT LEG 11/18/2018 FELIX ANDREEA PICKETT Ot M79.662 PAIN IN LEFT LOWER LEG 11/18/2018 FELIX ANDREEA Posada Ot Z68.44 BODY MASS INDEX (BMI) 60.0-69.9, ADULT 11/18/2018 FELIX ANDREEA Posada Ot Z79.51 BLOW DOWN OPERATOR (CURRENT) USE OF INHALED STERO 11/18/2018 FELIX ANDREEA Posada Ot Z79.84 BLOW DOWN OPERATOR (CURRENT) USE OF ORAL HYPOGLYC 11/18/2018 [place] ANDREEA Posada Ot Z82.49 FAMILY HX OF ISCHEM HEART DIS AND OTH DI 11/18/2018 FELIX PICKETT ANDREEA Posada Ot Z87.01 PERSONAL HISTORY OF PNEUMONIA (RECURRENT 11/18/2018 FELIX PICKETT ANDREEA Posada Ot Z87.19 PERSONAL HISTORY OF OTHER DISEASES OF TH 11/18/2018 FELIX PICKETT ANDREEA Posada Ot Z88.5 ALLERGY STATUS TO NARCOTIC AGENT STATUS 11/18/2018 FELIX PICKETT ANDREEA Swetha Ot Z88.8 ALLERGY STATUS TO OTH DRUG/MEDS/BIOL SUB 11/18/2018 FELIX ANDREEA PICKETT Ot Z98.890 OTHER SPECIFIED POSTPROCEDURAL STATES 12/07/2018 CARISA KHAN Ot M51.37 OTHER INTERVERTEBRAL DISC DEGENERATION, 12/08/2018 BRIANNE ERICKSON, ALINE Burris Ot D64.9 ANEMIA, UNSPECIFIED 12/08/2018 BRIANNE ERICKSON, ALINE Burris Ot E11.9 TYPE 2 DIABETES MELLITUS WITHOUT COMPLIC 12/08/2018 BRIANNE ERICKSON, ALINE Burris Ot E66.01 MORBID (SEVERE) OBESITY DUE TO [...] SIDE 12/08/2018 ALINE DECKER MD, Ot Z79.51 HALFWAY (CURRENT) USE OF INHALED STERO 12/08/2018 ALINE DECKER MD, Ot Z79.52 HALFWAY (CURRENT) USE OF SYSTEMIC STER 12/08/2018 ALINE DECKER MD, Ot Z79.84 HALFWAY (CURRENT) USE OF ORAL HYPOGLYC 12/08/2018 ALINE [...] ADULT 12/13/2018 ALLEGRA VILLATORO APRN Ot Z79.51 HALFWAY (CURRENT) USE OF INHALED STERO 12/13/2018 ALLEGRA VILLATORO APRN Ot Z79.52 HALFWAY (CURRENT) USE OF SYSTEMIC STER 12/13/2018 ALLEGRA [...] HISTORY OF URINARY (TRACT) INFE 12/13/2018 ALLEGRA VILLAOTRO APRN Ot Z88 .5 ALLERGY STATUS TO [...] PAIN 04/06/2019 ALLEGRA VILLATORO APRN Ot Z79.51 HALFWAY (CURRENT) USE OF INHALED STERO 04/06/2019 ALLEGRA VILLATORO APRN Ot Z79.52 BLOW DOWN OPERATOR (CURRENT) USE OF SYSTEMIC STER 04/06/2019 ALLEGRA VILLATORO APRN Ot Z79.84 HALFWAY (CURRENT) USE OF ORAL HYPOGLYC 04/06/2019 ALLEGRA VILLATORO APRN Ot Z82.49 FAMILY HX OF ISCHEM HEART DIS AND OTH DI 04/06/2019 ALLEGRA VILLATORO APRN Ot Z87.440 PERSONAL HISTORY OF URINARY (TRACT) INFE 04/06/2019 ALLEGRA VILLATORO APRN Ot Z88 .5 ALLERGY STATUS TO NARCOTIC AGENT STATUS 04/06/2019 ALLEGRA VILLATORO APRN Ot Z88 .8 ALLERGY STATUS TO [facility] DRUG/MEDS/BIOL SUB 04/07/2019 ALLEGRA VILLATORO APRN Ot [...] PAIN 04/07/2019 ALLEGRA VILLATORO APRN Ot Z79.51 HALFWAY (CURRENT) USE OF INHALED STERO 04/07/2019 ALLEGRA VILLATORO APRN Ot Z79.52 HALFWAY (CURRENT) USE OF SYSTEMIC STER 04/07/2019 ALLEGRA VILLATORO APRN Ot Z79.84 BLOW DOWN OPERATOR (CURRENT) USE OF ORAL HYPOGLYC 04/07/2019 ALLEGRA [...] ADULT 09/26/2019 ALLEGRA VILLATORO APRN Ot Z79.51 BLOW DOWN OPERATOR (CURRENT) USE OF INHALED STERO 09/26/2019 ALLEGRA VILLATORO APRN Ot Z79.84 HALFWAY (CURRENT) USE OF ORAL HYPOGLYC 09/26/2019 ALLEGRA VILLATORO APRN Ot Z82.49 FAMILY HX OF ISCHEM HEART DIS AND OTH DI 09/26/2019 ALLEGRA VILLATORO APRN Ot Z88 .5 ALLERGY STATUS TO NARCOTIC AGENT STATUS 09/26/2019 ALLEGRA VILLATORO APRN Ot Z88 .8 ALLERGY STATUS TO OTH DRUG/MEDS/BIOL SUB 12/24/2019 BAUDILIO STALLWORTH MD Ot D64.9 ANEMIA, UNSPECIFIED 12/24/2019 BAUDILIO STALLWORTH MD Ot E11.9 TYPE 2 DIABETES MELLITUS [...] 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, LEFT KNEE 12/24/2019 BAUDILIO STALLWORTH MD Ot S83.242A OTH TEAR OF MEDIAL MENISCUS, CURRENT INJ 12/24/2019 BAUDILIO STALLWORTH MD, Ot S83.282A OTH TEAR OF LAT MENSC, CURRENT INJURY, L 12/24/2019 BAUDILIO STALLWORTH MD, Ot Z68.43 BODY MASS INDEX (BMI) 50.0-59.9, ADULT 12/24/2019 BAUDILIO STALLWORTH MD, Ot Z79.84 HALFWAY (CURRENT) USE OF ORAL HYPOGLYC 12/24/2019 BAUDILIO STALLWORTH MD, Ot Z79.899 OTHER BLOW DOWN OPERATOR (CURRENT) DRUG THERAPY 12/24/2019 BAUDILIO STALLWORTH MD, [...] LIMB 01/25/2020 ANDREEA WASHINGTON DO Ot Z79.84 BLOW DOWN OPERATOR (CURRENT) USE OF ORAL HYPOGLYC 01/25/2020 FELIX DO, ANDREEA K Ot E11.9 TYPE 2 DIABETES MELLITUS WITHOUT COMPLIC 01/25/2020 FELIX DO, ANDREEA K Ot I10 ESSENTIAL (PRIMARY) HYPERTENSION 01/25/2020 FELIX DO, ANDREEA K Ot K21.9 GASTRO-ESOPHAGEAL REFLUX DISEASE WITHOUT 01/25/2020 FELIX DO, ANDREEA K Ot L03.115 CELLULITIS OF RIGHT LOWER LIMB 01/25/2020 FELIX DO, ANDREEA K Ot Z79.84 HALFWAY (CURRENT) USE OF ORAL HYPOGLYC 01/31/2020 BRIANNE ERICKSON, ALINE Burris Ot E11.9 TYPE 2 DIABETES MELLITUS WITHOUT COMPLIC 01/31/2020 ALINE DECKER MD Ot E66.01 MORBID (SEVERE) OBESITY DUE TO EXCESS CA 01/31/2020 ALINE DECKER MD Ot E88.81 METABOLIC SYNDROME 01/31/2020 ALINE DECKER MD Ot I10 ESSENTIAL (PRIMARY) HYPERTENSION 01/31/2020 ALINE DECKER MD Ot K21.9 GASTRO-ESOPHAGEAL REFLUX DISEASE WITHOUT 01/31/2020 ALINE DECKER MD Ot L03.115 CELLULITIS OF RIGHT LOWER LIMB 01/31/2020 ALINE DECKER MD Ot Z68.43 BODY MASS INDEX (BMI) 50.0-59.9, ADULT 01/31/2020 ALINE DECKER MD Ot Z79.84 HALFWAY (CURRENT) USE OF ORAL HYPOGLYC 02/05/2020 CARISA KHAN Ot M79.604 PAIN IN RIGHT LEG 02/05/2020 CARISA KHAN Ot M79.89 OTHER SPECIFIED SOFT TISSUE DISORDERS Procedures Code [place] [address] PAP SMEAR 09/04/2012 Q0091 PAP SMEAR OBTAIN SMEAR 09/04/2012 01845 ROUT INE VENIPUNCTURE 11/22/2012 39688 A1C (IN-HOUSE) 11/22/2012 08940 CMP 11/22/2012 [id number] GF R CALC (RESULT ONLY) 11/22/2012 36758 TSH 11/22/2012 65643 EKG, TRACING (IN-HOUSE) 11/23/2012 81128 INSU RUFINO LEVEL 11/23/[address] A BDOMEN W/ CONTRAST 05/16/2013 05816 US A BDOMEN ULTRASOUND, LIMITED (SPECIFY ORGAN) 06/20/2013 47815 ROUT INE VENIPUNCTURE 10/10/2013 85917 CBC 10/10/2013 [id number] GF R CALC (RESULT ONLY) 10/10/2013 28373 CMP 10/10/2013 98735 TSH 10/10/2013 66592 INSU RUFINO LEVEL 10/10/2013 86978 STRE P A (IN-HOUSE) 12/27/2013 23840 UA W / CULTURE IF INDICATED 01/03/2014 16541 CULT URE URINE 01/05/2014 J1885 YANA DOL INJ 03/08/2014 63493 THER APUTIC INJ SQ/IM 03/08/2014 66777 ROUT INE VENIPUNCTURE 10/14/2014 14772 A1C (IN-HOUSE) 10/14/2014 57553 CMP 10/14/2014 1604817 GF R CALC (RESULT ONLY) 10/14/2014 05018 INSU RUFINO LEVEL 10/14/2014 Results Test Result [...] measurement (mass/volume) 4.3 g/dL 3.2-4.5 Magnesium - 11/26/16 14:45 Magnesium 1.9 mg/dL 1.8-2.4 Serum or [...] culture - 06/12/16 17:00 Bacterial urine culture [id number] NRG COLONY COUNT 10,000/ML - 100,000/ML NRG [...] culture - 02/06/17 23:41 Bacterial urine culture [id number] NRG COLONY COUNT >100,000/ML NRG FTX;REPORTABLE PLUS, [...] - 01/21/20 10:20 INSULIN 12.8 uIU/mL NRG Capillary blood glucose measurement by g lucometer (mass/volume) - 01/26/20 18:39 Capillary blood glucose measurement by glucometer (mas s/volume) 97 mg/dL 70-110 Encounters ACCT No. Visit Date/Time Discharge Status Pt. Type Provider Facility Loc./Unit Complaint [id number] 10/28/2014 23:15:04 ACT Document Registration [id number] 12/18/2016 20:06:00 Document Registration [id number] 01/30/2020 13:20:00 01/30/2020 23:59: 59 CLS Outpatient CARISA KHAN APRN [facility] [id number] 01/21/2020 09:20:00 Document Registration [id number] 06/08/2019 10:40:00 Document Registration [id number] 05/08/2018 17:45:00 Document Registration [id number] 11/30/2017 15:40:00 Document Registration [id number] 09/12/2017 09:40:00 Document Registration [id number] 07/07/2017 13:20:00 Document Registration [id number] 05/15/2017 13:10:00 Document Registration [id number] 06/22/2016 08:39:00 Document Registration [id number] 05/18/2017 03:08:00 Document Registration [id number] 02/01/2020 08:53:00 23:59:59 CLS Outpatient CARISA KHAN [facility] RAD RIGHT LEG SWELLING [id number] 01/26/2020 18:23:00 19:14:00 DIS Outpatient BRIANNE ERICKSON, ALINE Burris [facility] ER R LEG CELLULITI S [id number] 01/20/2020 00:04:00 01:49:00 DIS Outpatient ANDREEA WASHINGTON DO, V ia [facility] ER SPOT ON R LEG, RED [id number] 12/19/2019 07:16:00 17:49:00 DIS Outpatient BAUDILIO STALLWORTH MD [facility] SDC LEFT KNEE MEDIAL MENIS CUS TEAR [id number] 12/14/2019 07:56:00 14:31:00 DIS Outpatient BAUDILIO STALLWORTH MD Via [facility] PREOP LEFT KNEE MEDIAL MENIS CUS [id number] 09/21/2019 08:58:00 11:38:00 DIS Outpatient ALLEGRA VILLATORO APRN [facility] ER FALL;NOSE INJ [id number] 04/04/2019 15:13:00 17:13:00 DIS Outpatient ALLEGRA VILLATORO APRN [facility] ER RT ABDOMEN PAIN [id number] 12/07/2018 15:54:00 17:07:00 DIS Outpatient ALLEGRA VILLATORO APRN [facility] ER HEADACHE [id number] 12/06/2018 15:37:00 23:59:59 CLS Outpatient CARISA KHAN [facility] RAD PAIN OF LEFT LOWER LEG [id number] 12/04/2018 02:27:00 05:43:00 DIS Outpatient BRIANNE ERICKSON, ALINE Burris [facility] ER LOWER BACK PAIN AND STOMACH [id number] 11/16/2018 12:00:00 23:59:59 CLS Preadmit ANDREEA WASHINGTON DO [facility] RAD L CALF PAIN [id number] 11/12/2018 21:22:00 019 23:00:00 DIS Outpatient ANDREEA WASHINGTON DO, V ia [facility] ER PAIN IN LEFT LEG [id number] 04/13/2018 16:47:00 018 23:59:59 CLS Outpatient CHRISTOFER ERICKSON, TRELL Ruiz [facility] RAD M54.5,M25.562 [id number] 02/08/2018 12:38:00 018 15:40:00 DIS Outpatient EVELINA MEYERS DO [facility] ENDO BLOOD IN STOOL/REFLUX [id number] 02/01/2018 05:41:00 018 14:57:00 DIS Outpatient EVELINA MEYERS DO [facility] PREOP COLONOSCOPY [id number] 01/12/2018 07:30:00 018 23:59:59 CLS Preadmit BAUDILIO NAGY DO [facility] SDC ABNORMAL UTERINE BLEEDI NG [id number] 01/02/2018 06:40:00 018 13:16:00 DIS Outpatient EDUARDO MONTENEGRO MD [facility] PREOP COLONOSCOPY [id number] 12/04/2017 23:23:00 018 03:02:00 DIS Emergency ANDREEA WASHINGTON DO Vi [facility] ER L SIDE PAIN/VOMITING/DI ARRHEA [id number] 11/02/2017 19:11:00 018 23:59:59 CLS Outpatient CARY ANGLIN APRN [facility] RAD LEFT LEG PAIN [id number] 10/04/2017 09:43:00 018 23:59:59 CLS Outpatient CARISA KHAN [facility] RAD MENORRHAGIA W/ IRREGUL AR CYCLE [id number] 09/23/2017 14:00:00 018 23:59:59 CLS Preadmit CARISA KHAN ABDIRIZAK [facility] RAD N92.1 MENORRHAGIA W/IRR EGULAR CYCLE [id number] 09/13/2017 17:01:00 018 20:21:00 DIS Emergency SOLO ALFARO [facility] ER SEVERE ABD PAIN [id number] 09/08/2017 17:05:00 018 19:50:00 DIS Emergency ALLEGRA VILLATORO APRN [facility] ER HEADACHE/NEW RX/WEAKNES S [id number] 09/04/2017 10:35:00 018 13:05:00 DIS Emergency FAITH JIGAR ABDIRIZAK [facility] ER HEADACHE [id number] 03/05/2017 13:40:00 017 15:53:00 DIS Emergency SOLO ALFARO [facility] ER POSS SPIDER BITE ON RT ANKLE [id number] 02/06/2017 22:43:00 017 00:34:00 DIS Emergency ANDREEA WASHINGTON DO [facility] ER L SIDE PAIN [id number] 02/05/2017 10:06:00 017 12:50:00 DIS Emergency ALLEGRA VILLATORO APRN [facility] ER L SIDE BACK PAIN [id number] 12/04/2016 14:45:00 017 15:53:00 DIS Emergency ALLEGRA VILLATORO APRN [facility] ER FALL, L ARM/ELBOW INJ [id number] 07/13/2016 13:25:00 016 16:49:00 DIS Emergency LEIGHA OSBORN MD [facility] ER HEADACHE/FLU SYMPTOMS [id number] 06/12/2016 17:38:00 016 18:30:00 DIS Inpatient TORRES BANKS MD Via [facility] ICU ACS ROLE OUT, 2ND PREFE RENCE CHEST PAIN [id number] 10/28/2014 23:14:00 015 00:56:00 DIS Emergency ANDREEA WASHINGTON DO [facility] ER ALLERGIC RXN TO ONIONS [id number] 02/10/2014 20:42:00 014 23:10:00 DIS Emergency ENMA GARCIA MD [facility] ER HEADACHE [id number] 09/19/2013 08:17:00 014 23:59:59 CLS Outpatient CARISA KHAN [facility] RAD HEPATIC CYST [id number] 08/01/2013 08:54:00 Document Registration [id number] 05/21/2013 08:56:00 Document Registration [id number] 05/16/2013 15:57:00 Document Registration [id number] 01/22/2013 22:21:00 Document Registration [id number] 11/27/2012 16:36:00 Document Registration [id number] 11/22/2012 19:33:00 Document Registration [id number] 11/22/2012 11:17:00 Document Registration [id number] 11/16/2012 21:28:00 Document Registration [id number] 05/12/2012 17:46:00 Document Registration [id number] 04/06/2012 21:45:00 Document Registration [id number] 07/01/2011 11:18:00 Document Registration [id number] 08/01/2013 08:54:00 014 10:10:00 DIS Emergency [id number] 05/21/2013 08:56:00 013 23:59:59 CLS Outpatient [id number] 05/16/2013 15:57:00 23:59:59 CLS Outpatient [id number] 01/22/2013 22:21:00 013 01:19:00 DIS Emergency [id number] 11/27/2012 16:36:00 013 20:10:00 DIS Emergency [id number] 11/22/2012 19:33:00 23:33:00 DIS Emergency [id number] 11/22/2012 11:17:00 12:50:00 DIS Emergency [id number] 11/16/2012 21:28:00 23:27:00 DIS Emergency [id number] 10/30/2014 14:05:00 10/30/2014 23:59: 59 CLS Outpatient CARISA KHAN APRN [id number] 10/14/2014 08:34:00 10/14/2014 23:59: 59 CLS Outpatient CARISA KAHN APRN [id number] 09/25/2014 13:52:00 09/25/2014 23:59: 59 CLS Outpatient CARISA KHAN APRN S [id number] 03/08/2014 13:20:00 03/08/2014 23:59: 59 CLS Outpatient GHANSHYAM FISHER BALBIR [place] [id number] 02/18/2014 11:27:00 02/18/2014 23:59: 59 CLS Outpatient CARISA KHAN APRN S [id number] 01/03/2014 08:43:00 01/03/2014 23:59: 59 CLS Outpatient RUTH DOVER APRN [facility] [id number] 12/27/2013 12:02:00 12/27/2013 23:59: 59 CLS Outpatient GHANSHYAM FISHER BALBIR R [id number] 10/10/2013 08:08:00 10/10/2013 23:59: 59 CLS Outpatient CARISA KHAN APRN S [id number] 06/18/2013 14:53:00 06/18/2013 23:59: 59 CLS Outpatient CARISA KHAN APRN S [id number] 06/04/2013 12:30:00 06/04/2013 23:59: 59 CLS Outpatient FANY MORRISSEY APRNRICIA R [id number] 05/16/2013 14:42:00 05/16/2013 23:59: 59 CLS Outpatient NAHOMY PETERSON DO [id number] 09/04/2012 09:39:00 09/04/2012 23:59: 59 CLS Outpatient NAHOMY PETERSON DO [id number] 08/16/2012 08:18:00 08/16/2012 23:59: 59 CLS Outpatient [id number] 05/16/2012 10:33:00 05/16/2012 23:59:5 9 CLS Outpatient CARISA KHAN APRN S [id number] 03/01/2013 13:28:00 Document Registration [id number] 01/09/2013 11:33:00 Document Registration [id number] 11/23/2012 13:01:00 Document Registration [id number] 11/07/2012 12:42:00 Document Registration
--- NOTE | 2020-02-22 15:23 | Diagnostic Imaging Report ---
Colon indication: Chest pain Portable chest 3:13 PM Heart size and pulmonary vascularity are normal. Lungs are clear. There are no effusions or pneumothoraces. IMPRESSION: Negative chest Dictated by: Dictated on workstation # [id number]
--- NOTE | 2020-02-22 15:45 | NUR ---
TALKED WITH DAUGHTER ON THE PHONE ET UPDATE GIVEN.
--- NOTE | 2020-02-22 15:55 | NUR ---
PT CONTIUNUES TO COMPLAIN OF A SEVERE HEADACHE.
[2020-02-22] MEDS ORDERED: LORazepam INJ 2 MG/ML (ATIVAN) VIAL IVP ONE (16:15)
[2020-02-22] MEDS ORDERED: fentaNYL INJECTION 100 MCG/2 ML AMP IVP ONE (16:15)
--- NOTE | 2020-02-22 16:32 | NUR ---
TALKED WITH ON THE PHONE ET UPDATE GIVEN.
--- NOTE | 2020-02-22 16:38 | ED Chest Pain ---
General Chief Complaint: Chest Pain Stated Complaint: CHEST PAIN Nursing Triage Note: ARRIVED VIA AMB TO ROOM 04 CRYING. STATES HER HEAD HAS HURT X4 DAYS AND CHEST PAIN ON AND OFF X2 DAYS. Nursing Sepsis Screen: No Definite Risk Source: patient Exam Limitations: no limitations History of Present Illness Date Seen by Provider: Feb 22, 2020 Time Seen by Provider: 14:30 Initial Comments This 45-year-old woman presents to the emergency room with complaints of intense headache that has been present for 3 or 4 days and chest pain that started today about an hour prior to arrival. She has had some chest pain intermittently prior to that. She denies any known history of heart problems. Her headache is accompanied by nausea. She is accustomed to having severe migraines but typically they do not last this long. She denies any cough, shortness of breath, dizziness, or fever. She denies any known COVID19 exposures. Allergies and Home Medications Allergies Coded Allergies: codeine (Verified Allergy, Severe, Neck swelling, pt able to tolerate Lortab, 12/19/19) hydrochlorothiazide (Verified Allergy, Severe, NECK SWELLING, 01/02/18) dulaglutide (Verified Allergy, Unknown, 12/11/19) Home Medications Cetirizine HCl 10 Mg Tablet, 10 MG PO DAILY, (Reported) Diltiazem HCl 240 Mg Cap.er.24h, 240 MG PO DAILY, (Reported) Doxycycline Hyclate 100 Mg Tablet, 100 MG PO BID Prescribed by: ALINE BAH on 01/26/20 1904 Famotidine 40 Mg Tablet, 40 MG PO DAILY, (Reported) Ferrous Sulfate 325 Mg Tablet, 325 MG PO DAILY, (Reported) Fluticasone Propionate 9.9 Ml [place].susp, 1 SPRAY NS DAILY, (Reported) 1 SPRAY EACH NARE DAILY Hydrocodone/Acetaminophen 1 Each Tablet, 1 EACH PO Q4H Prescribed by: JUNIOR VENEGAS on 12/19/19 1251 Losartan Potassium 50 Mg Tablet, 50 MG PO DAILY, (Reported) Metformin HCl 500 Mg Tablet, 500 MG PO BID, (Reported) Propranolol HCl 10 Mg Tablet, 10 MG PO BID, (Reported) Spironolactone 25 Mg Tablet, 25 MG PO DAILY, (Reported) Sulfamethoxazole/Trimethoprim 1 Each Tablet, 1 EACH PO BID Prescribed by: ANDREEA WASHINGTON on 01/20/20 0143 Tramadol HCl 50 Mg Tablet, 50 MG PO Q6H PRN for PAIN-BREAKTHROUGH Prescribed by: ALINE BAH on 01/26/20 2026 Patient Home Medication List Home Medication List Reviewed: Yes Review of Systems Review of Systems Constitutional: no symptoms reported EENTM: No Symptoms Reported Respiratory: No Symptoms Reported Cardiovascular: See HPI Gastrointestinal: No Symptoms Reported Genitourinary: No Symptoms Reported Musculoskeletal: no symptoms reported Skin: no symptoms reported Psychiatric/Neurological: See HPI Endocrine: No Symptoms Reported Hematologic/Lymphatic: No Symptoms Reported Past Puanwju-Evnxno-Kyfndo Hx Past Med/Social Hx: Reviewed Nursing Past Med/Soc Hx Patient Social History Alcohol Use: Denies Use Recreational Drug Use: No 2nd Hand Smoke Exposure: No Recent Foreign Travel: No Contact w/Someone Who Travel: No Recent Infectious Disease Expo: No Recent Hopitalizations: No Immunizations Up To Date Tetanus Booster (TDap): More than 5yrs PED Vaccines UTD: No Seasonal Allergies Seasonal Allergies: Yes Past Medical History Surgeries: Yes ( X 3) Section, Gallbladder Respiratory: Yes Pneumonia Currently Using CPAP: No Currently Using BIPAP: No Cardiac: Yes (HEART MURMUR A CHILD) Heart Murmur, Hypertension Neurological: Yes Headaches /Migraines Reproductive Disorders: No Female Reproductive Disorders: Menstrual Problems Sexually Transmitted Disease: No HIV/AIDS: No Genitourinary: Yes UTI-Chronic Gastrointestinal: Yes Gastroesophageal Reflux Musculoskeletal: No Endocrine: Yes (MORBID OBESTIY, INSULIN RESISTANCE) Diabetes, Non-Insulin dep HEENT: Yes Tonsilitis Loss of Vision: Bilateral Hearing Impairment: Denies Cancer: No Psychosocial: No Integumentary: No Blood Disorders: Yes (ANEMIA) Adverse Reaction/Blood Tranf: No (N/A) Family Medical History Reviewed Nursing Family Hx Arthritis Asthma 19 FATHER (copd) 19 MOTHER (copd) Cardiovascular disease 19 FATHER (chf) Diabetes mellitus 19 FATHER Hypertension 19 FATHER 19 MOTHER G8 BROTHER G8 SISTER No Pertinent Family Hx Physical Exam Vital Signs Vital Signs - First Documented 02/22/20 14:07 Temp 37.0 Pulse 81 Resp 16 B/P (MAP) 168/101 (123) Pulse Ox 95 O2 Delivery Room Air Capillary Refill : Less Than 3 Seconds Height, Weight, BMI Height: 5'9.00" Weight: 354lbs. 0.0oz. 160.872384xj; 50.00 BMI Method:Stated General Appearance: WD/WN, Mild Distress (crying), Obese HEENT: PERRL/EOMI, TMs Normal (right TM normal, left TM obscured by cerumen impaction), Normal ENT Inspection, Pharynx Normal Neck: Normal Inspection Respiratory: Chest Non Tender, Lungs Clear, Normal Breath Sounds, No Accessory Muscle Use, No Respiratory Distress Cardiovascular: Regular Rate, Rhythm, No Edema, No Murmur, Normal Peripheral Pulses Gastrointestinal: Normal Bowel Sounds, Non Tender, Soft Extremity: Normal Inspection, No Pedal Edema, Other (Is mildly tender equal bilaterally) Neurologic/Psychiatric: Alert, Oriented x3, No Motor/Sensory Deficits, surfacer operator II- XII Norm as Tested, Other (anxiety, whimpering/crying) Skin: Normal Color, Warm/Dry Progress/Results/Core Measures Results/Orders Lab Results Laboratory Tests Test 02/22/20 14:16 02/22/20 17:58 Range/Units White Blood Count 8.5 4.3-11.0 10^3/uL Red Blood Count 5.20 4.35-5.85 10^6/uL Hemoglobin 14.1 11.5-16.0 G/DL Hematocrit 43 35-52 % Mean Corpuscular Volume 82 80-99 FL Mean Corpuscular Hemoglobin 27 25-34 PG Mean Corpuscular Hemoglobin Concent 33 32-36 G/DL Red Cell Distribution Width 13.9 10.0-14.5 % Platelet Count 349 130-400 10^3/uL Mean Platelet Volume 9.4 7.4-10.4 FL Neutrophils (%) (Auto) 70 42-75 % Lymphocytes (%) (Auto) 21 12-44 % Monocytes (%) (Auto) 6 0-12 % Eosinophils (%) (Auto) 3 0-10 % Basophils (%) (Auto) 0 0-10 % Neutrophils # (Auto) 5.9 1.8-7.8 X 10^3 Lymphocytes # (Auto) 1.8 1.0-4.0 X 10^3 Monocytes # (Auto) 0.5 0.0-1.0 X 10^3 Eosinophils # (Auto) 0.2 0.0-0.3 10^3/uL Basophils # (Auto) 0.0 0.0-0.1 10^3/uL Prothrombin Time 13.4 12.2-14.7 SEC INR Comment 1.0 0.8-1.4 Activated Partial Thromboplast Time 35 24-35 SEC D-Dimer 0.33 0.00-0.49 UG/ML Sodium Level 140 135-145 MMOL/L Potassium Level 4.3 3.6-5.0 MMOL/L Chloride Level 105 98-107 MMOL/L Carbon Dioxide Level 22 21-32 MMOL/L Anion Gap 13 5-14 MMOL/L Blood Urea Nitrogen 6 L 7-18 MG/DL Creatinine 0.78 0.60-1.30 MG/DL Estimat Glomerular Filtration Rate > 60 BUN/Creatinine Ratio 8 Glucose Level 118 H 70-105 MG/DL Calcium Level 9.5 8.5-10.1 MG/DL Corrected Calcium 9.2 8.5-10.1 MG/DL Magnesium Level 2.1 1.6-2.4 MG/DL Total Bilirubin 0.5 0.1-1.0 MG/DL Aspartate Amino Transf (AST/SGOT) 23 5-34 U/L Alanine Aminotransferase (ALT/SGPT) 23 0-55 U/L Alkaline Phosphatase 54 40-136 U/L Total Creatine Kinase 78 29-168 U/L Myoglobin 21.9 10.0-92.0 NG/ML Troponin I < 0.028 < 0.028 <0.028 NG/ML Total Protein 8.3 H 6.4-8.2 GM/DL Albumin 4.4 3.2-4.5 GM/DL My Orders Orders - ALINE DECKER MD Cbc With Automated Diff (02/22/20 14:37) Magnesium (02/22/20 14:37) Chest 1 View, Ap/Pa Only (02/22/20 14:37) Ekg Tracing (02/22/20 14:37) Comprehensive Metabolic Panel (02/22/20 14:37) Myoglobin Serum (02/22/20 14:37) Protime With Inr (02/22/20 14:37) Partial Thromboplastin Time (02/22/20 14:37) O2 (02/22/20 14:37) Monitor-Rhythm Ecg Trace Only (02/22/20 14:37) Ed Iv/Invasive Line Start (02/22/20 14:37) Troponin I (02/22/20 14:37) Nitroglycerin 0.4 Mg Btl 25's (Nitrostat (02/22/20 14:45) Aspirin Chewable Tablet (Baby Aspirin Ch (02/22/20 14:45) Ketorolac Injection (Toradol Injection) (02/22/20 14:45) Promethazine Injection (Phenergan Injec (02/22/20 14:45) Lactated Ringers (Lr 1000 Ml Iv Solution (02/22/20 14:37) Lorazepam Injection (Ativan Injection) (02/22/20 16:15) Fentanyl Injection (Sublimaze Injection (02/22/20 16:15) Creatine Kinase (02/22/20 16:08) Fibrin Degradation Products (02/22/20 14:16) Ct Head Wo (02/22/20 17:22) Troponin I (02/22/20 17:54) Hydrocodone/Apap 5/325 Tablet (Lortab 5 (02/22/20 18:45) Medications Given in ED Current Medications Medications Dose Ordered Sig/Minerva Route Start Time Stop Time Status Last Admin Dose Admin Acetaminophen/ Hydrocodone Bitart 1 tab ONCE ONCE PO 02/22/20 18:45 02/22/20 18:46 DC 02/22/20 18:50 1 TAB Aspirin 324 mg ONCE ONCE PO 02/22/20 14:45 02/22/20 14:46 DC 02/22/20 15:01 324 MG Fentanyl Citrate 50 mcg ONCE ONCE IVP 02/22/20 16:15 02/22/20 16:16 DC 02/22/20 16:20 50 MCG Ketorolac Tromethamine 15 mg ONCE ONCE IVP 02/22/20 14:45 02/22/20 14:46 DC 02/22/20 15:01 15 MG Lactated Ringer's 1,000 ml @ 0 mls/hr Q0M ONCE IV 02/22/20 14:37 02/22/20 14:40 DC 02/22/20 15:01 0 MLS/HR Lorazepam 0.5 mg ONCE ONCE IVP 02/22/20 16:15 02/22/20 16:16 DC 02/22/20 16:20 0.5 MG Nitroglycerin 0.4 mg UD PRN SL 02/22/20 14:45 8/7/20 19:14 DC 02/22/20 15:01 0.4 MG Promethazine HCl 25 mg ONCE ONCE IVP 02/22/20 14:45 02/22/20 14:46 DC 02/22/20 15:01 25 MG Vital Signs/I&O 02/22/20 02/22/20 14:07 19:13 Temp 37.0 Pulse 81 76 Resp 16 18 B/P (MAP) 168/101 (123) 135/77 Pulse Ox 95 98 O2 Delivery Room Air Room Air Blood Pressure Mean: 123 Progress Progress Note : Progress Note Patient was initially treated with IV fluids, Toradol, and Phenergan. Cardiopulmonary workup was unremarkable. She had refractory pain which was treated with fentanyl and later hydrocodone. Symptoms did significantly improve and she was eventually able to fall sleep. Repeat troponin 4 hours after onset of pain was obtained and was also negative. Because patient was having such severe headache refractory to initial treatment, CT of the head was obtained. D-dimer was negative. Initial ECG Impression Date: Feb 22, 2020 Initial ECG Impression Time: 14:15 Initial ECG Rate: 79 Initial ECG Rhythm: Normal Sinus Initial ECG Intervals: Normal Initial ECG Impression: Normal Comment Normal sinus rhythm. No ST elevation or depression. No abnormal intervals or axis deviation. Diagnostic Imaging Diagonstic Imaging: Xray Plain Films/CT/US/NM/MRI: chest Comments Chest x-ray viewed by me and report reviewed. See report below: NAME: ZAYDA SALCIDO [facility] REC#: [id number] PT STATUS: REG ER : 1975 PHYSICIAN: ALINE DECKER MD ADMIT DATE: 02/22/20/ER Signed Date of Exam:02/22/20 CHEST 1 VIEW, AP/PA ONLY Colon indication: Chest pain Portable chest 3:13 PM Heart size and pulmonary vascularity are normal. Lungs are clear. There are no effusions or pneumothoraces. IMPRESSION: Negative chest Dictated by: Dictated on workstation # [id number] Dict: 02/22/20 1521 Trans: 02/22/20 1521 [id number] Interpreted by: KITA AUSTIN MD Electronically signed by: KITA AUSTIN MD 02/22/20 1521 Diagonstic Imaging: CT Plain Films/CT/US/NM/MRI: head Comments NAME: ZAYDA SALCIDO [facility] REC#: [id number] PT STATUS: REG ER : 1975 PHYSICIAN: ALINE DECKER MD ADMIT DATE: 02/22/20/ER Signed Date of Exam:02/22/20 CT HEAD WO PROCEDURE: CT head without contrast. TECHNIQUE: Multiple contiguous axial images were obtained through the brain without the use of intravenous contrast. Auto Exposure Controls were utilized during the CT exam to meet ALARA standards for radiation dose reduction. INDICATION: Severe headache. COMPARISON: None. FINDINGS: Ventricles are normal in size, shape and position. There is no midline shift or mass effect. There is no hemorrhage or evidence acute ischemia. The bony calvarium is normal. Mastoids are clear. The paranasal sinuses are grossly unremarkable. IMPRESSION: Negative CT head. Dictated by: Dictated on workstation # [id number] Dict: 02/22/201740 Trans: 02/22/201742 [facility] [id number] Interpreted by: TORRES ZHOU Electronically signed by: TORRES ZHOU 02/22/201742 Reviewed: Reviewed by Me Departure Impression Primary Impression: Chest pain Qualified Codes: R07.9 - Chest pain, unspecified Additional Impressions: Acute headache Qualified Codes: R51 - Headache Cerumen impaction Qualified Codes: H61.22 - Impacted cerumen, left ear Disposition: 01 HOME, SELF-CARE Condition: Improved Departure-Patient Inst. Decision time for Depature: 18:47 Referrals: [facility]) Primary Care Physician CARISA KHAN (Family) Primary Care Physician Patient Instructions: Chest Pain Add. Discharge Instructions: Rest quietly in a calm, quiet, dark place for the rest of the evening. You may take ibuprofen up to 600 mg every 6 hours and/or Tylenol (acetaminophen) up to 1000 mg every 6 hours as needed for pain. Drink plenty of clear liquids to stay well-hydrated. Return to care if you have worsening symptoms despite following these measures. All discharge instructions reviewed with patient and/or family. Voiced understanding. Copy Copies To 1: NAHOMY PETERSON JOSHUA T MD Feb 22, 2020 16:38
--- NOTE | 2020-02-22 16:45 | NUR ---
ASSISSTED PT TO THE COMMODE. PT CONTINUES TO COMPLAIN OF A SEVERE HEADACHE. IN MT ET AWARE.
[2020-02-22 16:56] LABS: FIBRIN DEGRADATION PRODUCTS 0.33 UG/ML (0.00-0.49)
--- NOTE | 2020-02-22 17:30 | NUR ---
RESTING IN BED WITH EYES CLSOED. DENIES NEEDS AT THIS TIME.
--- NOTE | 2020-02-22 17:44 | Diagnostic Imaging Report ---
PROCEDURE: CT head without contrast. TECHNIQUE: Multiple contiguous axial images were obtained through the brain without the use of intravenous contrast. Auto Exposure Controls were utilized during the CT exam to meet ALARA standards for radiation dose reduction. INDICATION: Severe headache. COMPARISON: None. FINDINGS: Ventricles are normal in size, shape and position. There is no midline shift or mass effect. There is no hemorrhage or evidence acute ischemia. The bony calvarium is normal. Mastoids are clear. The paranasal sinuses are grossly unremarkable. IMPRESSION: Negative CT head. Dictated by: Dictated on workstation # [id number]
--- NOTE | 2020-02-22 18:29 | NUR ---
PT RESTING WITH EYES CLOSED. VSS.
--- NOTE | 2020-02-22 18:39 | NUR ---
UPDATED DAUGHTER ON THE PHONE,.
[2020-02-22] MEDS ORDERED: HYDROcodone/APAP 5 MG/325 MG (LORTAB) TAB PO ONE (18:45)
--- NOTE | 2020-02-22 18:46 | NUR ---
NOTIFIED THAT PT WAS GOING TO BE DISCHARGED.
[2020-02-22 19:13] VITALS: BP 135/77
== END 2020-02-22 19:14 | disposition home or self-care (01) ==
LOC: EDUNIT# 14:07 → ER 14:09
DX: R07.9 Chest pain, unspecified (principal); R51 Headache; H61.22 Impacted cerumen, left ear; I10 Essential (primary) hypertension; E11.9 Type 2 diabetes mellitus without complications; E66.01 Morbid (severe) obesity due to excess calories; K21.9 Gastro-esophageal reflux disease without esophagitis; D64.9 Anemia, unspecified; Z88.5 Allergy status to narcotic agent; Z88.8 Allergy status to other drugs, medicaments and biological substances; Z68.43 Body mass index [BMI] 50.0-59.9, adult; Z86.69 Personal history of other diseases of the nervous system and sense organs; Z79.51 Long term (current) use of inhaled steroids; Z79.84 Long term (current) use of oral hypoglycemic drugs; Z82.49 Family history of ischemic heart disease and other diseases of the circulatory system
CPT/HCPCS: 36415; 70450; 71045; 80053; 82550; 83735; 83874; 84484; 85025; 85379; 85610; 85730; 93005

== ENCOUNTER 2020-03-13 01:11 | Emergency (ER) | payer MEDICAID ==
[~2020-03-13] VITALS: Ht 175.3 cm; Wt 157.3 kg
[2020-03-13] MEDS: diphenhydrAMINE 50 MG/ML INJ (BENADRYL) IVP ONE (01:32)
[2020-03-13] MEDS ORDERED: PROM25TA14 PO (01:33)
[2020-03-13] MEDS: PROMETHAZINE INJ 25 MG/ML (PHENERGAN) AMP IVP ONE (01:33)
--- NOTE | 2020-03-13 01:33 | ED Head Injury ---
General Stated Complaint: HIT IN HEAD 03.12.20 BY BUNK BED,BASS,NAUSEA,SHAKEY Source: patient Exam Limitations: no limitations History of Present Illness Date Seen by Provider: Mar 13, 2020 Time Seen by Provider: 01:16 Initial Comments patient presents to the ER by private conveyance with chief complaint that a couple hours ago she was trying to assemble a bunk bed and the top rack fell down striking her in the top of her frontal scalp causing a small divot not breaking the skin. This triggered a headache. She has a history of migraines. She took a Fioricet but promptly vomited it up. She did keep a tramadol down after that. Her pain has not gotten better so she came to the ER. No loss of consciousness but she is still nauseated. She has photosensitivity and rates her pain as severe. she claims a little tenderness in her neck but no limited range of motion. Allergies and Home Medications Allergies Coded Allergies: codeine (Verified Allergy, Severe, Neck swelling, pt able to tolerate Lortab, 12/19/19) hydrochlorothiazide (Verified Allergy, Severe, NECK SWELLING, 01/02/18) dulaglutide (Verified Allergy, Unknown, 12/11/19) Home Medications Cetirizine HCl 10 Mg Tablet, 10 MG PO DAILY, (Reported) Diltiazem HCl 240 Mg Cap.er.24h, 240 MG PO DAILY, (Reported) Doxycycline Hyclate 100 Mg Tablet, 100 MG PO BID Prescribed by: ALINE BAH on 01/26/20 1904 Famotidine 40 Mg Tablet, 40 MG PO DAILY, (Reported) Ferrous Sulfate 325 Mg Tablet, 325 MG PO DAILY, (Reported) Fluticasone Propionate 9.9 Ml Jackson.susp, 1 SPRAY NS DAILY, (Reported) 1 SPRAY EACH NARE DAILY Hydrocodone/Acetaminophen 1 Each Tablet, 1 EACH PO Q4H Prescribed by: JUNIOR VENEGAS on 12/19/19 1251 Losartan Potassium 50 Mg Tablet, 50 MG PO DAILY, (Reported) Metformin HCl 500 Mg Tablet, 500 MG PO BID, (Reported) Promethazine HCl 25 Mg Tablet, 25 MG PO Q6H PRN for NAUSEA/VOMITING Prescribed by: NICK HSIEH on 03/13/20 0133 Propranolol HCl 10 Mg Tablet, 10 MG PO BID, (Reported) Spironolactone 25 Mg Tablet, 25 MG PO DAILY, (Reported) Sulfamethoxazole/Trimethoprim 1 Each Tablet, 1 EACH PO BID Prescribed by: ANDREEA WASHINGTON on 01/20/20 0143 Tramadol HCl 50 Mg Tablet, 50 MG PO Q6H PRN for PAIN-BREAKTHROUGH Prescribed by: ALINE BAH on 01/26/20 1904 Patient Home Medication List Home Medication List Reviewed: Yes Review of Systems Review of Systems Constitutional: No chills, No fever Eyes: See HPI; Denies Blindness, Denies Blurred Vision; Photophobia Ears, Nose, Mouth, Throat: denies ear pain, denies ear discharge Respiratory: No cough, No short of breath Cardiovascular: No chest pain, No edema Gastrointestinal: No abdominal pain, No constipation, No diarrhea; nausea, vomiting Genitourinary: No dysuria, No frequency Musculoskeletal: see HPI; No back pain; neck pain All Other Systems Reviewed Negative Unless Noted: Yes Past Ygunvul-Gcwyhn-Ozkqwe Hx Patient Social History Alcohol Use: Denies Use Recreational Drug Use: No 2nd Hand Smoke Exposure: No Recent Foreign Travel: No Contact w/Someone Who Travel: No Recent Hopitalizations: No Immunizations Up To Date Tetanus Booster (TDap): More than 5yrs PED Vaccines UTD: No Seasonal Allergies Seasonal Allergies: Yes Past Medical History Surgeries: Yes ( X 3) Section, Gallbladder Respiratory: Yes Pneumonia Currently Using CPAP: No Currently Using BIPAP: No Cardiac: Yes (HEART MURMUR A CHILD) Heart Murmur, Hypertension Neurological: Yes Headaches /Migraines Reproductive Disorders: No Female Reproductive Disorders: Menstrual Problems Sexually Transmitted Disease: No HIV/AIDS: No Genitourinary: Yes UTI-Chronic Gastrointestinal: Yes Gastroesophageal Reflux Musculoskeletal: No Endocrine: Yes (MORBID OBESTIY, INSULIN RESISTANCE) Diabetes, Non-Insulin dep HEENT: Yes Tonsilitis Loss of Vision: Bilateral Hearing Impairment: Denies Cancer: No Psychosocial: No Integumentary: No Blood Disorders: Yes (ANEMIA) Adverse Reaction/Blood Tranf: No (N/A) Family Medical History Arthritis Asthma 19 FATHER (copd) 19 MOTHER (copd) Cardiovascular disease 19 FATHER (chf) Diabetes mellitus 19 FATHER Hypertension 19 FATHER 19 MOTHER G8 BROTHER G8 SISTER No Pertinent Family Hx Physical Exam Vital Signs Vital Signs - First Documented 03/13/20 01:19 Temp 36.9 Pulse 91 Resp 22 B/P (MAP) 200/127 (151) Pulse Ox 97 O2 Delivery Room Air Capillary Refill : Height, Weight, BMI Height: 5'9.00" Weight: 354lbs. 0.0oz. 160.585317yy; 50.00 BMI Method:Stated General Appearance: moderate distress, obese HEENT: PERRL/EOMI, normal ENT inspection, TMs normal, pharynx normal Neck: full range of motion, supple, normal inspection Cardiovascular: normal peripheral pulses, regular rate, rhythm Respiratory: lungs clear, normal breath sounds, no respiratory distress, no accessory muscle use Gastrointestinal: normal bowel sounds, non tender, soft Extremities: normal range of motion, non-tender Psychiatric: alert, oriented x 3 Crainal Nerves: normal hearing, normal speech, PERRL Coordination/Gait: normal gait Motor/Sensory: no motor deficit, no sensory deficit Skin: normal color, warm/dry, other (small shallow divot right frontal scalp just at the hairline approximately 1 cm by half centimeter) Kai Coma Score Best Eye Response: (4) Open Spontaneously Best Verbal Response: (5) Oriented Best Motor Response: (6) Obeys Commands Kai Total: 15 Progress/Results/Core Measures Results/Orders My Orders Orders - NICK HSIEH Ct Head/Cervical Spine Wo (03/13/20 01:24) Promethazine Injection (Phenergan Injec (03/13/20 01:30) Diphenhydramine Injection (Benadryl Inje (03/13/20 01:30) Ed Iv/Invasive Line Start (03/13/20 01:24) Acetaminophen Tablet (Tylenol Tablet) (03/13/20 02:30) Ketorolac Injection (Toradol Injection) (03/13/20 02:30) Medications Given in ED Current Medications Medications Dose Ordered Sig/Minerva Route Start Time Stop Time Status Last Admin Dose Admin Diphenhydramine HCl 25 mg ONCE ONCE IVP 03/13/20 01:30 03/13/20 01:31 DC 03/13/20 01:32 25 MG Promethazine HCl 25 mg ONCE ONCE IVP 03/13/20 01:30 03/13/20 01:31 DC 03/13/20 01:33 25 MG Vital Signs/I&O 03/13/20 01:19 Temp 36.9 Pulse 91 Resp 22 B/P (MAP) 200/127 (151) Pulse Ox 97 O2 Delivery Room Air Progress Progress Note #1: Time: 01:29 Progress Note because of her severe pain and photophobia we will obtain a CT of her head and C-spine. If this is negative we will give her Toradol. We'll start with some Phenergan and Benadryl IV for her nausea. Progress Note #2: Time: 02:20 Progress Note Toradol, Tylenol and go home to get some sleep. Diagnostic Imaging Diagonstic Imaging: CT (with out IV contrast) Plain Films/CT/US/NM/MRI: c-spine, head Comments no acute hemorrhage, hydrocephalus or mass effect. No acute fracture or subluxation of the C-spine. Reviewed: Reviewed Night Hawk Study, Reviewed by Me Departure Impression Primary Impression: Head injury, acute, without loss of consciousness Qualified Codes: S09.90XA - Unspecified injury of head, initial encounter Additional Impression: Headache Qualified Codes: R51 - Headache Disposition: 01 HOME, SELF-CARE Condition: Stable Departure-Patient Inst. Decision time for Depature: 02:20 Referrals: [facility] (PCP) Primary Care Physician CARISA KHAN (Family) Primary Care Physician Patient Instructions: Closed Head Injury (DC) Add. Discharge Instructions: You may apply ice for 20 minutes every 2 hours for the first 1-2 days. Tylenol 1000 mg every 8 hours as necessary for pain. Ibuprofen 800 mg every 8 hours as necessary for pain. Get plenty of sleep. Phenergan 1 tablet every 6 hours as necessary for nausea. Scripts Promethazine HCl (Promethazine Tablet) 25 Mg Tablet 25 MG PO Q6H PRN for NAUSEA/VOMITING, #15 TAB 0 Refills Prov: INCK HSIEH 03/13/20 NICK HSIEH Mar 13, 2020 01:33
[2020-03-13] MEDS: KETOROLAC 30 MG/ML VIAL IVP ONE (02:27)
[2020-03-13] MEDS: ACETAMINOPHEN 500 MG TAB (TYLENOL) PO ONE (02:28)
[2020-03-13 02:50] VITALS: BP 174/91
--- NOTE | 2020-03-13 07:36 | Diagnostic Imaging Report ---
PROCEDURE: CT head and CT cervical spine without contrast. TECHNIQUE: Multiple contiguous axial images were obtained through the brain and cervical spine without the use of intravenous contrast. Sagittal and coronal reformations through the cervical spine were then performed. Auto Exposure Controls were utilized during the CT exam to meet ALARA standards for radiation dose reduction. INDICATION: Trauma to head. COMPARISON: 02/22/2020 FINDINGS: CT head: Ventricles and cortical sulci are age-appropriate. There is no midline shift or mass-effect. No acute intra-axial hemorrhage is seen. There are no abnormal areas of increased or decreased density to suggest acute hemorrhage or edema. No extra-axial masses or collections are present. The bony calvarium is intact. The visualized paranasal sinuses are unremarkable. The mastoid air cells are clear. CT cervical spine: Evaluation of static alignment shows reversal normal lordotic curvature. Findings may be related to patient positioning, as well as spasm. There is no significant anterolisthesis or retrolisthesis. There is no evidence of jumped facets. Vertebral body heights are maintained. There is no acute fracture. No bony fragments are seen within the spinal canal. Mild multilevel degenerative changes are noted. Pre and paravertebral soft tissue structures are unremarkable. Included portions lung apices are clear. IMPRESSION: 1. No acute intracranial abnormality. No CT evidence of mass, acute infarct or intracranial hemorrhage. 2. No acute fracture or dislocation cervical spine. Dictated by: Dictated on workstation # [id number]
== END 2020-03-13 02:50 | disposition home or self-care (01) ==
LOC: EDUNIT# 01:11 → ER 01:14
DX: S09.90XA Unspecified injury of head, initial encounter (principal); R51 Headache; I10 Essential (primary) hypertension; E66.01 Morbid (severe) obesity due to excess calories; E11.9 Type 2 diabetes mellitus without complications; Z86.69 Personal history of other diseases of the nervous system and sense organs; Z79.51 Long term (current) use of inhaled steroids; Z79.84 Long term (current) use of oral hypoglycemic drugs; Z82.49 Family history of ischemic heart disease and other diseases of the circulatory system; Z88.5 Allergy status to narcotic agent; Z88.8 Allergy status to other drugs, medicaments and biological substances; Z68.43 Body mass index [BMI] 50.0-59.9, adult; W20.8XXA Other cause of strike by thrown, projected or falling object, initial encounter
CPT/HCPCS: 70450; 72125

== ENCOUNTER 2020-04-02 12:14 | Emergency (ER) | payer MEDICAID ==
[~2020-04-02] VITALS: Ht 175 cm; Wt 156.9 kg
[~2020-04-02 12:14] MED LIST changes: -PANT40TA3 PO; +PANT40TA52 PO; +PROM25TA14 PO
[2020-04-02] MEDS ORDERED: PROCHLORPERAZINE 10 MG/2ML INJ (COMPAZINE) IM ONE (12:30)
[2020-04-02] MEDS ORDERED: diphenhydrAMINE 50 MG/ML INJ (BENADRYL) IM ONE (12:30)
[2020-04-02] MEDS ORDERED: KETOROLAC 60 MG/2 ML VIAL IM ONE (12:30)
--- NOTE | 2020-04-02 12:30 | ED Headache ---
General Chief Complaint: Head/Cervical Problems Stated Complaint: VOMITING;HEADACHE Source: patient Exam Limitations: no limitations History of Present Illness Date Seen by Provider: Apr 02, 2020 Time Seen by Provider: 12:29 Initial Comments To ER with reports of a headache nausea vomiting and light sensitivity. She has a history of migraines and this is similar. Timing/Duration: 4-6 hours Severity/Quality: moderate Location: frontal Prior Headaches/Recent Trauma: occasional headaches Modifying Factors: worse with exposure to light Associated Symptoms: nausea/vomiting Allergies and Home Medications Allergies Coded Allergies: codeine (Verified Allergy, Severe, Neck swelling, pt able to tolerate Lortab, 12/19/19) hydrochlorothiazide (Verified Allergy, Severe, NECK SWELLING, 01/02/18) dulaglutide (Verified Allergy, Unknown, 12/11/19) Home Medications Cetirizine HCl 10 Mg Tablet, 10 MG PO DAILY, (Reported) Diltiazem HCl 240 Mg Cap.er.24h, 240 MG PO DAILY, (Reported) Doxycycline Hyclate 100 Mg Tablet, 100 MG PO BID Prescribed by: ALINE BAH on 01/26/201903 Famotidine 40 Mg Tablet, 40 MG PO DAILY, (Reported) Ferrous Sulfate 325 Mg Tablet, 325 MG PO DAILY, (Reported) Fluticasone Propionate 9.9 Ml Buck[place].susp, 1 SPRAY NS DAILY, (Reported) 1 SPRAY EACH NARE DAILY Hydrocodone/Acetaminophen 1 Each Tablet, 1 EACH PO Q4H Prescribed by: JUNIOR VENEGAS on 12/19/19 1251 Losartan Potassium 50 Mg Tablet, 50 MG PO DAILY, (Reported) Metformin HCl 500 Mg Tablet, 500 MG PO BID, (Reported) Promethazine HCl 25 Mg Tablet, 25 MG PO Q6H PRN for NAUSEA/VOMITING Prescribed by: NICK HSIEH on 03/13/20 0133 Propranolol HCl 10 Mg Tablet, 10 MG PO BID, (Reported) Spironolactone 25 Mg Tablet, 25 MG PO DAILY, (Reported) Sulfamethoxazole/Trimethoprim 1 Each Tablet, 1 EACH PO BID Prescribed by: ANDREEA WASHINGTON on 01/20/20 0143 Tramadol HCl 50 Mg Tablet, 50 MG PO Q6H PRN for PAIN-BREAKTHROUGH Prescribed by: ALINE BAH on 01/26/201903 Patient Home Medication List Home Medication List Reviewed: Yes Review of Systems Review of Systems Constitutional: see HPI; No chills, No fever Eyes: No Symptoms Reported Ears, Nose, Mouth, Throat: no symptoms reported Respiratory: no symptoms reported Cardiovascular: no symptoms reported Genitourinary: no symptoms reported Musculoskeletal: no symptoms reported Skin: no symptoms reported Psychiatric/Neurological: No Symptoms Reported Past Jjnicyj-Mzwslq-Izadgl Hx Patient Social History 2nd Hand Smoke Exposure: No Recent Hopitalizations: No Immunizations Up To Date Tetanus Booster (TDap): More than 5yrs PED Vaccines UTD: No Seasonal Allergies Seasonal Allergies: Yes Past Medical History Surgeries: Yes ( X 3) Section, Gallbladder Respiratory: Yes Pneumonia Currently Using CPAP: No Currently Using BIPAP: No Cardiac: Yes (HEART MURMUR A CHILD) Heart Murmur, Hypertension Neurological: Yes Headaches /Migraines Reproductive Disorders: No Female Reproductive Disorders: Menstrual Problems Sexually Transmitted Disease: No HIV/AIDS: No Genitourinary: Yes UTI-Chronic Gastrointestinal: Yes Gastroesophageal Reflux Musculoskeletal: No Endocrine: Yes (MORBID OBESTIY, INSULIN RESISTANCE) Diabetes, Non-Insulin dep HEENT: Yes Tonsilitis Loss of Vision: Bilateral Hearing Impairment: Denies Cancer: No Psychosocial: No Integumentary: No Blood Disorders: Yes (ANEMIA) Adverse Reaction/Blood Tranf: No (N/A) Family Medical History Arthritis Asthma 19 FATHER (copd) 19 MOTHER (copd) Cardiovascular disease 19 FATHER (chf) Diabetes mellitus 19 FATHER Hypertension 19 FATHER 19 MOTHER G8 BROTHER G8 SISTER No Pertinent Family Hx Physical Exam Vital Signs Vital Signs - First Documented 04/02/20 12:15 Temp 37.0 Pulse 92 Resp 16 B/P (MAP) 173/105 (127) Pulse Ox 96 O2 Delivery Room Air Capillary Refill : Height, Weight, BMI Height: 5'9.00" Weight: 354lbs. 0.0oz. 160.862374sr; 51.00 BMI Method:Stated General Appearance: WD/WN, no apparent distress HEENT: PERRL/EOMI, normal ENT inspection Neck: non-tender, full range of motion Respiratory: lungs clear, normal breath sounds, no respiratory distress, no accessory muscle use Extremities: normal range of motion, non-tender Psychiatric: alert, oriented x 3 Crainal Nerves: normal hearing, normal speech, PERRL Skin: normal color, warm/dry Progress/Results/Core Measures Results/Orders My Orders Orders - ALLEGRA VILLATORO APRN Prochlorperazine Injection (Compazine In (04/02/20 12:30) Diphenhydramine Injection (Benadryl Inje (04/02/20 12:30) Ketorolac Injection (Toradol Injection) (04/02/20 12:30) Medications Given in ED Current Medications Medications Dose Ordered Sig/Minerva Route Start Time Stop Time Status Last Admin Dose Admin Diphenhydramine HCl 50 mg ONCE ONCE IM 04/02/20 12:30 04/02/20 12:31 DC 04/02/20 12:31 50 MG Ketorolac Tromethamine 60 mg ONCE ONCE IM 04/02/20 12:30 04/02/20 12:31 DC 04/02/20 12:31 60 MG Prochlorperazine Edisylate 10 mg ONCE ONCE IM 04/02/20 12:30 04/02/20 12:31 DC 04/02/20 12:29 10 MG Vital Signs/I&O 04/02/20 12:15 Temp 37.0 Pulse 92 Resp 16 B/P (MAP) 173/105 (127) Pulse Ox 96 O2 Delivery Room Air Departure Communication (Admissions) 1345-patient reports to RN that she is feeling better and would like to go home now. I will print discharge instructions. Impression Primary Impression: Headache Qualified Codes: R51 - Headache Disposition: 01 HOME, SELF-CARE Condition: Stable Departure-Patient Inst. Decision time for Depature: 13:24 Referrals: [facility] (PCP) Primary Care Physician CARISA KHAN (Family) Primary Care Physician Patient Instructions: Headache, Adult (DC) ALLEGRA VILLATORO APRN Apr 02, 2020 12:30
--- NOTE | 2020-04-02 13:05 | NUR ---
UPDATE GIVEN TO PT'S DAUGHTER.
[2020-04-02 14:00] VITALS: BP 151/106
== END 2020-04-02 14:00 | disposition home or self-care (01) ==
LOC: EDUNIT# 12:14 → ER 12:16
DX: R51 Headache (principal); E66.01 Morbid (severe) obesity due to excess calories; I10 Essential (primary) hypertension; E11.9 Type 2 diabetes mellitus without complications; K21.9 Gastro-esophageal reflux disease without esophagitis; N39.0 Urinary tract infection, site not specified; Z82.49 Family history of ischemic heart disease and other diseases of the circulatory system; Z68.43 Body mass index [BMI] 50.0-59.9, adult; Z79.84 Long term (current) use of oral hypoglycemic drugs; Z88.5 Allergy status to narcotic agent; Z88.8 Allergy status to other drugs, medicaments and biological substances; Z20.828 Contact with and (suspected) exposure to other viral communicable diseases
CPT/HCPCS: 99282

== ENCOUNTER 2020-04-12 21:20 | Emergency (ER) | payer MEDICAID ==
[~2020-04-12] VITALS: Ht 175 cm; Wt 156.0 kg
--- NOTE | 2020-04-12 21:58 | ED Integumentary General ---
General Stated Complaint: R ANKLE POSSIBLE SPIDER BITE Source: patient Exam Limitations: no limitations History of Present Illness Date Seen by Provider: Apr 12, 2020 Time Seen by Provider: 21:56 Initial Comments To ER with a possible spider bite to the medial aspect of the right ankle. Yesterday while driving home from [employer] she had a severe headache which she does have a history of. She's had general malaise and body aches. Was subsequently tested for influenza and then Covid at [facility]. She doesn't have a Covid results back. She then developed a erythematous itchy burning type rash to the medial aspect of the right ankle Timing/Duration: constant Severity: moderate Possible Cause: insect bite Allergies and Home Medications Allergies Coded Allergies: codeine (Verified Allergy, Severe, Neck swelling, pt able to tolerate Lortab, 12/19/19) hydrochlorothiazide (Verified Allergy, Severe, NECK SWELLING, 01/02/18) dulaglutide (Verified Allergy, Unknown, 12/11/19) Home Medications Cetirizine HCl 10 Mg Tablet, 10 MG PO DAILY, (Reported) Diltiazem HCl 240 Mg Cap.er.24h, 240 MG PO DAILY, (Reported) Doxycycline Hyclate 100 Mg Tablet, 100 MG PO BID Prescribed by: ALINE BAH on 01/26/20 190 Famotidine 40 Mg Tablet, 40 MG PO DAILY, (Reported) Ferrous Sulfate 325 Mg Tablet, 325 MG PO DAILY, (Reported) Fluticasone Propionate 9.9 Ml [place].susp, 1 SPRAY NS DAILY, (Reported) 1 SPRAY EACH NARE DAILY Hydrocodone/Acetaminophen 1 Each Tablet, 1 EACH PO Q4H Prescribed by: JUNIOR VENEGAS on 12/19/19 1251 Losartan Potassium 50 Mg Tablet, 50 MG PO DAILY, (Reported) Metformin HCl 500 Mg Tablet, 500 MG PO BID, (Reported) Promethazine HCl 25 Mg Tablet, 25 MG PO Q6H PRN for NAUSEA/VOMITING Prescribed by: NICK HSIEH on 03/13/20 0133 Propranolol HCl 10 Mg Tablet, 10 MG PO BID, (Reported) Spironolactone 25 Mg Tablet, 25 MG PO DAILY, (Reported) Sulfamethoxazole/Trimethoprim 1 Each Tablet, 1 EACH PO BID Prescribed by: ANDREEA WASHINGTON on 01/20/20 0143 Tramadol HCl 50 Mg Tablet, 50 MG PO Q6H PRN for PAIN-BREAKTHROUGH Prescribed by: ALINE BAH on 01/26/20 9521 Patient Home Medication List Home Medication List Reviewed: Yes Review of Systems Review of Systems Constitutional: see HPI, chills EENTM: see HPI Respiratory: no symptoms reported Cardiovascular: no symptoms reported Genitourinary: no symptoms reported Musculoskeletal: no symptoms reported Skin: see HPI Psychiatric/Neurological: No Symptoms Reported Endocrine: No Symptoms Reported Hematologic/Lymphatic: No Symptoms Reported Past Mpqrzav-Mqasdk-Cwxcnz Hx Patient Social History 2nd Hand Smoke Exposure: No Recent Foreign Travel: No Contact w/Someone Who Travel: No Recent Hopitalizations: No Immunizations Up To Date Tetanus Booster (TDap): More than 5yrs PED Vaccines UTD: No Seasonal Allergies Seasonal Allergies: Yes Past Medical History Surgeries: Yes ( X 3) Section, Gallbladder Respiratory: Yes Pneumonia Currently Using CPAP: No Currently Using BIPAP: No Cardiac: Yes (HEART MURMUR A CHILD) Heart Murmur, Hypertension Neurological: Yes Headaches /Migraines Reproductive Disorders: No Female Reproductive Disorders: Menstrual Problems Sexually Transmitted Disease: No HIV/AIDS: No Genitourinary: Yes UTI-Chronic Gastrointestinal: Yes Gastroesophageal Reflux Musculoskeletal: No Endocrine: Yes (MORBID OBESTIY, INSULIN RESISTANCE) Diabetes, Non-Insulin dep HEENT: Yes Tonsilitis Loss of Vision: Bilateral Hearing Impairment: Denies Cancer: No Psychosocial: No Integumentary: No Blood Disorders: Yes (ANEMIA) Adverse Reaction/Blood Tranf: No (N/A) Family Medical History Arthritis Asthma 19 FATHER (copd) 19 MOTHER (copd) Cardiovascular disease 19 FATHER (chf) Diabetes mellitus 19 FATHER Hypertension 19 FATHER 19 MOTHER G8 BROTHER G8 SISTER No Pertinent Family Hx Physical Exam Vital Signs Vital Signs - First Documented 04/12/20 21:55 Temp 36.7 Pulse 88 Resp 18 B/P (MAP) 176/120 (138) Pulse Ox 99 O2 Delivery Room Air Capillary Refill : General Appearance: WD/WN, no apparent distress HEENT: PERRL/EOMI Respiratory: no respiratory distress Neurologic/Psychiatric: alert, normal mood/affect Skin: normal color, warm/dry Skin Problem Location: lower extremities Skin Problem Character: other (well demarcated 10 cm area of erythema medial right ankle) Progress/Results/Core Measures Results/Orders Lab Results Laboratory Tests Test 04/12/20 21:51 Range/Units White Blood Count 9.1 4.3-11.0 10^3/uL Red Blood Count 5.17 H 3.80-5.11 10^6/uL Hemoglobin 13.7 11.5-16.0 g/dL Hematocrit 44 35-52 % Mean Corpuscular Volume 84 80-99 fL Mean Corpuscular Hemoglobin 27 25-34 pg Mean Corpuscular Hemoglobin Concent 31 L 32-36 g/dL Red Cell Distribution Width 13.3 10.0-14.5 % Platelet Count 273 130-400 10^3/uL Mean Platelet Volume 9.2 9.0-12.2 fL Immature Granulocyte % (Auto) 0 % Neutrophils (%) (Auto) 72 42-75 % Lymphocytes (%) (Auto) 16 12-44 % Monocytes (%) (Auto) 9 0-12 % Eosinophils (%) (Auto) 3 0-10 % Basophils (%) (Auto) 0 0-10 % Neutrophils # (Auto) 6.5 1.8-7.8 10^3/uL Lymphocytes # (Auto) 1.5 1.0-4.0 10^3/uL Monocytes # (Auto) 0.8 0.0-1.0 10^3/uL Eosinophils # (Auto) 0.2 0.0-0.3 10^3/uL Basophils # (Auto) 0.0 0.0-0.1 10^3/uL Immature Granulocyte # (Auto) 0.0 0.0-0.1 10^3/uL My Orders Orders - ALLEGRA VILLATORO APRN Cbc With Automated Diff (04/12/20 21:55) Ketorolac Injection (Toradol Injection) (04/12/20 22:00) Prochlorperazine Injection (Compazine In (04/12/20 22:00) Diphenhydramine Injection (Benadryl Inje (04/12/20 22:00) Vital Signs/I&O 04/12/20 21:55 Temp 36.7 Pulse 88 Resp 18 B/P (MAP) 176/120 (138) Pulse Ox 99 O2 Delivery Room Air Departure Impression Primary Impression: Cellulitis of right ankle Disposition: 01 HOME, SELF-CARE Condition: Stable Departure-Patient Inst. Decision time for Depature: 22:24 Referrals: [facility] (PCP) Primary Care Physician CARISA KHAN (Family) Primary Care Physician Patient Instructions: Cellulitis (Skin Infection), Adult (DC) Add. Discharge Instructions: 1. Antibiotics as directed. Follow-up with your doctor next week. Stay quarantined until youR Covid results are back from [facility]. return to ER for any worsening Scripts Amoxicillin/Potassium Clav (Augmentin 875-125 Tablet) 1 Each Tablet 1 EACH PO BID, #14 TAB 0 Refills Prov: ALLEGRA VILLATORO APRN 04/12/20 ALLEGRA VILLATORO APRN Apr 12, 2020 21:58
[2020-04-12] MEDS ORDERED: KETOROLAC 60 MG/2 ML VIAL IM ONE (22:00)
[2020-04-12] MEDS ORDERED: PROCHLORPERAZINE 10 MG/2ML INJ (COMPAZINE) IM ONE (22:00)
[2020-04-12] MEDS ORDERED: diphenhydrAMINE 50 MG/ML INJ (BENADRYL) IM ONE (22:00)
--- NOTE | 2020-04-12 22:00 | NUR ---
Pt triaged and assessed by Vitor Ly in triage; pt has red, rash type area to the inner aspect of her right ankle and a BASS. Pt was Covid tested yesterday and results aren't in yet.
[2020-04-12 22:03] LABS: BASOPHILS % (AUTO) 0 % (0-10); EOSINOPHILS # (AUTO) 0.2 10^3/uL (0.0-0.3); EOSINOPHILS % (AUTO) 3 % (0-10); HEMATOCRIT 44 % (35-52); HEMOGLOBIN 13.7 g/dL (11.5-16.0); LYMPHOCYTES # (AUTO) 1.5 10^3/uL (1.0-4.0); LYMPHOCYTES % (AUTO) 16 % (12-44); MEAN CORPUSCULAR HEMOGLOBIN 27 pg (25-34); MEAN CORPUSCULAR HGB CONC 31 g/dL (32-36); MEAN CORPUSCULAR VOLUME 84 fL (80-99); MEAN PLATELET VOLUME 9.2 fL (9.0-12.2); MONOCYTES # (AUTO) 0.8 10^3/uL (0.0-1.0); MONOCYTES % (AUTO) 9 % (0-12); NEUTROPHILS # (AUTO) 6.5 10^3/uL (1.8-7.8); NEUTROPHILS % (AUTO) 72 % (42-75); PLATELET COUNT 273 10^3/uL (130-400); WHITE BLOOD COUNT 9.1 10^3/uL (4.3-11.0)
[2020-04-12] MEDS ORDERED: AMOX-358 PO (22:25)
[2020-04-12] MEDS ORDERED: AUGMENTIN 875 MG TAB (AMOXICILLIN/CLAVULANATE) PO SCH (22:30)
--- NOTE | 2020-04-12 22:55 | NUR ---
To triage to administer meds and provide medications as ordered. Pt verbalized an understanding. Pt ambulated from ED without incident.
[2020-04-12 22:56] VITALS: BP 133/98
== END 2020-04-12 22:58 | disposition home or self-care (01) ==
LOC: EDUNIT# 21:20 → ER 21:21
DX: L03.115 Cellulitis of right lower limb (principal); I10 Essential (primary) hypertension; K21.9 Gastro-esophageal reflux disease without esophagitis; E11.9 Type 2 diabetes mellitus without complications; D64.9 Anemia, unspecified; E66.01 Morbid (severe) obesity due to excess calories; G43.909 Migraine, unspecified, not intractable, without status migrainosus; Z82.61 Family history of arthritis; Z82.49 Family history of ischemic heart disease and other diseases of the circulatory system; Z83.3 Family history of diabetes mellitus; Z88.5 Allergy status to narcotic agent; Z88.8 Allergy status to other drugs, medicaments and biological substances; Z79.84 Long term (current) use of oral hypoglycemic drugs; Z20.828 Contact with and (suspected) exposure to other viral communicable diseases; Z68.43 Body mass index [BMI] 50.0-59.9, adult
CPT/HCPCS: 36415; 85025; 99284

== ENCOUNTER 2020-04-13 12:33 | Emergency (ER) | payer MEDICAID ==
[~2020-04-13] VITALS: Ht 172.7 cm; Wt 157.0 kg
[~2020-04-13 12:33] MED LIST changes: +AMOX-358 PO
--- NOTE | 2020-04-13 12:52 | ED General ---
General Stated Complaint: R LEG CELLULITIS Source of Information: Patient Exam Limitations: No Limitations History of Present Illness Date Seen by Provider: Apr 13, 2020 Time Seen by Provider: 12:49 Initial Comments To ER with right leg cellulitis. She was seen here last night for the same started on Augmentin, awakened this morning with increasing redness. Timing/Duration: 1-2 Days Severity: Moderate Associated Systoms: Denies Symptoms Allergies and Home Medications Allergies Coded Allergies: codeine (Verified Allergy, Severe, Neck swelling, pt able to tolerate Lortab, 12/19/19) hydrochlorothiazide (Verified Allergy, Severe, NECK SWELLING, 01/02/18) dulaglutide (Verified Allergy, Unknown, 12/11/19) Home Medications Amoxicillin/Potassium Clav 1 Each Tablet, 1 EACH PO BID Prescribed by: ALLEGRA VILLATORO on 04/12/202224 Cetirizine HCl 10 Mg Tablet, 10 MG PO DAILY, (Reported) Diltiazem HCl 240 Mg Cap.er.24h, 240 MG PO DAILY, (Reported) Doxycycline Hyclate 100 Mg Tablet, 100 MG PO BID Prescribed by: ALINE BAH on 01/26/201903 Famotidine 40 Mg Tablet, 40 MG PO DAILY, (Reported) Ferrous Sulfate 325 Mg Tablet, 325 MG PO DAILY, (Reported) Fluticasone Propionate 9.9 Ml [place].susp, 1 SPRAY NS DAILY, (Reported) 1 SPRAY EACH NARE DAILY Hydrocodone/Acetaminophen 1 Each Tablet, 1 EACH PO Q4H Prescribed by: JUNIOR VENEGAS on 12/19/19 1251 Losartan Potassium 50 Mg Tablet, 50 MG PO DAILY, (Reported) Metformin HCl 500 Mg Tablet, 500 MG PO BID, (Reported) Promethazine HCl 25 Mg Tablet, 25 MG PO Q6H PRN for NAUSEA/VOMITING Prescribed by: NICK HSIEH on 03/13/20 0133 Propranolol HCl 10 Mg Tablet, 10 MG PO BID, (Reported) Spironolactone 25 Mg Tablet, 25 MG PO DAILY, (Reported) Sulfamethoxazole/Trimethoprim 1 Each Tablet, 1 EACH PO BID Prescribed by: ANDREEA WASHINGTON on 01/20/20 0143 Tramadol HCl 50 Mg Tablet, 50 MG PO Q6H PRN for PAIN-BREAKTHROUGH Prescribed by: ALINE BAH on 01/26/201903 Patient Home Medication List Home Medication List Reviewed: Yes Review of Systems Review of Systems Constitutional: see HPI, malaise EENTM: see HPI Respiratory: no symptoms reported Cardiovascular: no symptoms reported Genitourinary: no symptoms reported Musculoskeletal: no symptoms reported Skin: no symptoms reported Psychiatric/Neurological: No Symptoms Reported Hematologic/Lymphatic: No Symptoms Reported (.) Immunological/Allergic: no symptoms reported Past Mhbbmhj-Accanf-Noluvz Hx Patient Social History 2nd Hand Smoke Exposure: No Recent Foreign Travel: No Contact w/Someone Who Travel: No Recent Hopitalizations: No Immunizations Up To Date Tetanus Booster (TDap): More than 5yrs PED Vaccines UTD: No Seasonal Allergies Seasonal Allergies: Yes Past Medical History Surgeries: Yes ( X 3) Section, Gallbladder Respiratory: Yes Pneumonia Currently Using CPAP: No Currently Using BIPAP: No Cardiac: Yes (HEART MURMUR A CHILD) Heart Murmur, Hypertension Neurological: Yes Headaches /Migraines Reproductive Disorders: No Female Reproductive Disorders: Menstrual Problems Sexually Transmitted Disease: No HIV/AIDS: No Genitourinary: Yes UTI-Chronic Gastrointestinal: Yes Gastroesophageal Reflux Musculoskeletal: No Endocrine: Yes (MORBID OBESTIY, INSULIN RESISTANCE) Diabetes, Non-Insulin dep HEENT: Yes Tonsilitis Loss of Vision: Bilateral Hearing Impairment: Denies Cancer: No Psychosocial: No Integumentary: No Blood Disorders: Yes (ANEMIA) Adverse Reaction/Blood Tranf: No (N/A) Family Medical History Arthritis Asthma 19 FATHER (copd) 19 MOTHER (copd) Cardiovascular disease 19 FATHER (chf) Diabetes mellitus 19 FATHER Hypertension 19 FATHER 19 MOTHER G8 BROTHER G8 SISTER No Pertinent Family Hx Physical Exam Vital Signs Vital Signs - First Documented 04/13/20 13:00 Temp 37.0 Pulse 81 Resp 18 B/P (MAP) 191/122 (145) O2 Delivery Room Air Capillary Refill : Height, Weight, BMI Height: 5'9.00" Weight: 354lbs. 0.0oz. 160.334330xg; 50.00 BMI Method:Stated General Appearance: No Apparent Distress, WD/WN Eyes: Bilateral Eye Normal Inspection, Bilateral Eye PERRL, Bilateral Eye EOMI Respiratory: No Accessory Muscle Use, No Respiratory Distress Cardiovascular: Regular Rate, Rhythm, Normal Peripheral Pulses Gastrointestinal: Normal Bowel Sounds, Non Tender, Soft Extremity: Other (areas increasing redness circumferentially about the right lower leg that was not present last night.) Neurologic/Psychiatric: Alert, Oriented x3 Skin: Normal Color, Warm/Dry Progress/Results/Core Measures Suspected Sepsis SIRS Temperature: Pulse: Respiratory Rate: Laboratory Tests 04/13/20 12:46: White Blood Count 7.9 Blood Pressure / Mean: Laboratory Tests 04/13/20 12:46: Creatinine 0.79, Platelet Count 288 Results/Orders Lab Results Laboratory Tests Test 04/13/20 12:46 Range/Units White Blood Count 7.9 4.3-11.0 10^3/uL Red Blood Count 5.26 H 3.80-5.11 10^6/uL Hemoglobin 14.0 11.5-16.0 g/dL Hematocrit 44 35-52 % Mean Corpuscular Volume 83 80-99 fL Mean Corpuscular Hemoglobin 27 25-34 pg Mean Corpuscular Hemoglobin Concent 32 32-36 g/dL Red Cell Distribution Width 13.4 10.0-14.5 % Platelet Count 288 130-400 10^3/uL Mean Platelet Volume 9.2 9.0-12.2 fL Immature Granulocyte % (Auto) 0 % Neutrophils (%) (Auto) 62 42-75 % Lymphocytes (%) (Auto) 23 12-44 % Monocytes (%) (Auto) 11 0-12 % Eosinophils (%) (Auto) 4 0-10 % Basophils (%) (Auto) 0 0-10 % Neutrophils # (Auto) 4.9 1.8-7.8 10^3/uL Lymphocytes # (Auto) 1.8 1.0-4.0 10^3/uL Monocytes # (Auto) 0.9 0.0-1.0 10^3/uL Eosinophils # (Auto) 0.3 0.0-0.3 10^3/uL Basophils # (Auto) 0.0 0.0-0.1 10^3/uL Immature Granulocyte # (Auto) 0.0 0.0-0.1 10^3/uL Sodium Level 140 135-145 MMOL/L Potassium Level 3.8 3.6-5.0 MMOL/L Chloride Level 104 98-107 MMOL/L Carbon Dioxide Level 25 21-32 MMOL/L Anion Gap 11 5-14 MMOL/L Blood Urea Nitrogen 7 7-18 MG/DL Creatinine 0.79 0.60-1.30 MG/DL Estimat Glomerular Filtration Rate > 60 BUN/Creatinine Ratio 9 Glucose Level 103 70-105 MG/DL Calcium Level 9.4 8.5-10.1 MG/DL C-Reactive Protein High Sensitivity 3.80 H 0.00-0.50 MG/DL My Orders Orders - ALLEGRA VILLATORO APRN Cbc With Automated Diff (04/13/20 12:48) Hs C Reactive Protein (04/13/20 12:48) Basic Metabolic Panel (04/13/20 12:48) Ed Iv/Invasive Line Start (04/13/20 12:48) Ceftriaxone For Iv Use (Rocephin For I (04/13/20 13:00) Ns Iv 1000 Ml (Sodium Chloride 0.9%) (04/13/20 13:00) Medications Given in ED Current Medications Medications Dose Ordered Sig/Minerva Route Start Time Stop Time Status Last Admin Dose Admin Ceftriaxone Sodium 2000 mg/ Sterile Water 20 ml @ 240 mls/hr ONCE ONCE IV 04/13/20 13:00 04/13/20 13:04 DC 04/13/20 13:13 240 MLS/HR Vital Signs/I&O 04/13/20 13:00 Temp 37.0 Pulse 81 Resp 18 B/P (MAP) 191/122 (145) O2 Delivery Room Air Capillary Refill : Departure Impression Primary Impression: Cellulitis Qualified Codes: L03.115 - Cellulitis of right lower limb Disposition: 01 HOME, SELF-CARE Condition: Stable Departure-Patient Inst. Decision time for Depature: 13:42 Referrals: [facility] (PCP) Primary Care Physician CARISA KHAN (Family) Primary Care Physician Patient Instructions: Cellulitis and Erysipelas (Skin Infections) Add. Discharge Instructions: 1. Tylenol and ibuprofen for pain control. Continue the Augmentin antibiotics prescribed last night. Return to ER for any concerns. Call primary care tomorrow to make an appointment to be seen. ALLEGRA VILLATORO APRN Apr 13, 2020 12:52
[2020-04-13 12:53] LABS: BASOPHILS % (AUTO) 0 % (0-10); EOSINOPHILS # (AUTO) 0.3 10^3/uL (0.0-0.3); EOSINOPHILS % (AUTO) 4 % (0-10); HEMATOCRIT 44 % (35-52); LYMPHOCYTES # (AUTO) 1.8 10^3/uL (1.0-4.0); LYMPHOCYTES % (AUTO) 23 % (12-44); MEAN CORPUSCULAR HEMOGLOBIN 27 pg (25-34); MEAN CORPUSCULAR HGB CONC 32 g/dL (32-36); MEAN CORPUSCULAR VOLUME 83 fL (80-99); MEAN PLATELET VOLUME 9.2 fL (9.0-12.2); MONOCYTES # (AUTO) 0.9 10^3/uL (0.0-1.0); MONOCYTES % (AUTO) 11 % (0-12); NEUTROPHILS # (AUTO) 4.9 10^3/uL (1.8-7.8); NEUTROPHILS % (AUTO) 62 % (42-75); PLATELET COUNT 288 10^3/uL (130-400); WHITE BLOOD COUNT 7.9 10^3/uL (4.3-11.0)
[2020-04-13] MEDS ORDERED: NS IV 1000 ML 1,000 ML IV SCH (13:00)
[2020-04-13] MEDS ORDERED: cefTRIAXone FOR IV USE 2,000 MG in WATER (STERILE) FOR INJECTION 20 ML IV ONE (13:00)
[2020-04-13 13:08] LABS: CHLORIDE 104 MMOL/L (98-107); POTASSIUM 3.8 MMOL/L (3.6-5.0); SODIUM 140 MMOL/L (135-145)
[2020-04-13 13:09] LABS: CALCIUM 9.4 MG/DL (8.5-10.1)
[2020-04-13 13:10] LABS: GLUCOSE 103 MG/DL (70-105)
[2020-04-13 13:12] LABS: CARBON DIOXIDE 25 MMOL/L (21-32)
[2020-04-13 13:14] LABS: CREATININE SERUM 0.79 MG/DL (0.60-1.30); GFR ESTIMATED > 60
[2020-04-13 13:15] LABS: BUN/CREATININE RATIO 9
[2020-04-13 13:49] VITALS: BP 181/101
[2020-04-14] MEDS ORDERED: HYDR-3870 PO (10:50)
[2020-04-14] MEDS ORDERED: DOXY100T2 PO (12:03)
== END 2020-04-13 13:49 | disposition home or self-care (01) ==
LOC: EDUNIT# 12:33 → ER 12:34
DX: L03.115 Cellulitis of right lower limb (principal); E66.01 Morbid (severe) obesity due to excess calories; I10 Essential (primary) hypertension; E11.9 Type 2 diabetes mellitus without complications; Z82.49 Family history of ischemic heart disease and other diseases of the circulatory system; Z83.3 Family history of diabetes mellitus; Z82.61 Family history of arthritis; Z68.43 Body mass index [BMI] 50.0-59.9, adult; Z88.5 Allergy status to narcotic agent; Z88.8 Allergy status to other drugs, medicaments and biological substances; Z79.84 Long term (current) use of oral hypoglycemic drugs
CPT/HCPCS: 36415; 80048; 85025; 86141

== ENCOUNTER 2020-04-14 08:08 | Emergency (ER) | payer MEDICAID ==
[~2020-04-14] VITALS: Ht 175 cm; Wt 159.0 kg
--- NOTE | 2020-04-14 10:17 | NUR ---
continues to rest in bed. notified of busy er and dr would be in as soon as he could.
[2020-04-14] MEDS ORDERED: HYDR-3870 PO (10:50)
--- NOTE | 2020-04-14 10:52 | ED Lower Extremity ---
General Chief Complaint: Lower Extremity Stated Complaint: R LEG PAIN Nursing Triage Note: ARRIVED VIA AMBULATORY TO ROOM 05. STATES THIS IS HER THIRD VISIT FOR HER RIGHT LEG AND TODAY THERE IS A KNOT UNDER HER LEG NOW AND IT FEELS CONSTRICTING. Nursing Sepsis Screen: No Definite Risk Source: patient Exam Limitations: no limitations History of Present Illness Date Seen by Provider: Apr 14, 2020 Time Seen by Provider: 10:49 Initial Comments Currently being treated with Augmentin plus one dose of Rocephin IV yesterday for cellulitis right lower extremity. Comes in today because of worsening pain in the leg. No fevers or systemic symptoms. Onset: just prior to arrival Severity: moderate Pain/Injury Location: right leg Method of Injury: fell Modifying Factors: Worse With Movement Allergies and Home Medications Allergies Coded Allergies: codeine (Verified Allergy, Severe, Neck swelling, pt able to tolerate Lortab, 12/19/19) hydrochlorothiazide (Verified Allergy, Severe, NECK SWELLING, 01/02/18) dulaglutide (Verified Allergy, Unknown, 12/11/19) Home Medications Amoxicillin/Potassium Clav 1 Each Tablet, 1 EACH PO BID Prescribed by: ALLEGRA VILLATORO on 04/12/205 Cetirizine HCl 10 Mg Tablet, 10 MG PO DAILY, (Reported) Diltiazem HCl 240 Mg Cap.er.24h, 240 MG PO DAILY, (Reported) Doxycycline Hyclate 100 Mg Tablet, 100 MG PO BID Prescribed by: ALINE BAH on 01/26/20 1904 Doxycycline Hyclate 100 Mg Tablet, 100 MG PO BID Prescribed by: ALLEGRA VILLATORO on 04/14/20 1203 Famotidine 40 Mg Tablet, 40 MG PO DAILY, (Reported) Ferrous Sulfate 325 Mg Tablet, 325 MG PO DAILY, (Reported) Fluticasone Propionate 9.9 Ml [place].susp, 1 SPRAY NS DAILY, (Reported) 1 SPRAY EACH NARE DAILY Hydrocodone/Acetaminophen 1 Each Tablet, 1 EACH PO Q4H Prescribed by: JUNIOR VENEGAS on 12/19/19 1251 Hydrocodone/Acetaminophen 1 Each Tablet, 1 EACH PO Q4-6HR PRN for PAIN-MODERATE Prescribed by: ALLEGRA VILLATORO on 04/14/20 1051 Losartan Potassium 50 Mg Tablet, 50 MG PO DAILY, (Reported) Metformin HCl 500 Mg Tablet, 500 MG PO BID, (Reported) Promethazine HCl 25 Mg Tablet, 25 MG PO Q6H PRN for NAUSEA/VOMITING Prescribed by: NICK HSIEH on 03/13/20 0133 Propranolol HCl 10 Mg Tablet, 10 MG PO BID, (Reported) Spironolactone 25 Mg Tablet, 25 MG PO DAILY, (Reported) Sulfamethoxazole/Trimethoprim 1 Each Tablet, 1 EACH PO BID Prescribed by: ANDREEA WASHINGTON on 01/20/20 0143 Tramadol HCl 50 Mg Tablet, 50 MG PO Q6H PRN for PAIN-BREAKTHROUGH Prescribed by: ALINE BAH on 01/26/20 1904 Patient Home Medication List Home Medication List Reviewed: Yes Review of Systems Constitutional: see HPI EENTM: see HPI Respiratory: no symptoms reported Cardiovascular: no symptoms reported Genitourinary: no symptoms reported Musculoskeletal: no symptoms reported Skin: see HPI Psychiatric/Neurological: No Symptoms Reported Past Dflortr-Mvfxsg-Qqtuvd Hx Patient Social History 2nd Hand Smoke Exposure: No Recent Foreign Travel: No Contact w/Someone Who Travel: No Recent Infectious Disease Expo: No Recent Hopitalizations: No Immunizations Up To Date Tetanus Booster (TDap): More than 5yrs PED Vaccines UTD: No Seasonal Allergies Seasonal Allergies: Yes Past Medical History Surgeries: Yes ( X 3) Section, Gallbladder Respiratory: Yes Pneumonia Currently Using CPAP: No Currently Using BIPAP: No Cardiac: Yes (HEART MURMUR A CHILD) Heart Murmur, Hypertension Neurological: Yes Headaches /Migraines Reproductive Disorders: No Female Reproductive Disorders: Menstrual Problems Sexually Transmitted Disease: No HIV/AIDS: No Genitourinary: Yes UTI-Chronic Gastrointestinal: Yes Gastroesophageal Reflux Musculoskeletal: No Endocrine: Yes (MORBID OBESTIY, INSULIN RESISTANCE) Diabetes, Non-Insulin dep HEENT: Yes Tonsilitis Loss of Vision: Bilateral Hearing Impairment: Denies Cancer: No Psychosocial: No Integumentary: No Blood Disorders: Yes (ANEMIA) Adverse Reaction/Blood Tranf: No (N/A) Family Medical History Arthritis Asthma 19 FATHER (copd) 19 MOTHER (copd) Cardiovascular disease 19 FATHER (chf) Diabetes mellitus 19 FATHER Hypertension 19 FATHER 19 MOTHER G8 BROTHER G8 SISTER No Pertinent Family Hx Physical Exam Vital Signs Vital Signs - First Documented 04/14/20 09:00 Temp 36.5 Pulse 77 Resp 16 B/P (MAP) 199/123 (148) Pulse Ox 97 O2 Delivery Room Air Capillary Refill : Less Than 3 Seconds Height, Weight, BMI Height: 5'9.00" Weight: 354lbs. 0.0oz. 160.901206fj; 51.00 BMI Method:Stated General Appearance: WD/WN, no apparent distress Respiratory: no respiratory distress, no accessory muscle use Hips: bilateral hip non-tender, bilateral hip normal inspection, bilateral hip normal range of motion Legs: left leg non-tender, left leg normal inspection; bilateral leg normal r janie of motion; right leg other (erythematous slightly petechial rash to the right lower leg circumferentially. Same location as yesterday, just a bit brighter red today.) Knees: bilateral knee non-tender, bilateral knee normal inspection, bilateral knee normal range of motion Ankles: bilateral ankle non-tender, bilateral ankle normal inspection, bilateral ankle normal range of motion Feet: bilateral foot non-tender, bilateral foot normal inspection, bilateral foot normal range of motion Neurologic/Psychiatric: alert, normal mood/affect, oriented x 3 Skin: normal color, warm/dry Progress/Results/Core Measures Results/Orders My Orders Orders - ALLEGRA VILLATORO APRN Us Venous Lower Ext Rt (04/14/20 10:52) Dexamethasone Injection (Decadron Inje (04/14/20 12:15) Doxycycline Hyclate Tablet (Vibramycin T (04/14/20 12:15) Medications Given in ED Current Medications Medications Dose Ordered Sig/Minerv[place] Route Start Time Stop Time Status Last Admin Dose Admin Dexamethasone Sodium Phosphate 10 mg ONCE ONCE IM 04/14/20 12:15 04/14/20 12:16 DC 04/14/20 12:23 10 MG Vital Signs/I&O 04/14/20 04/14/20 09:00 12:25 Temp 36.5 Pulse 77 81 Resp 16 16 B/P (MAP) 199/123 (148) 156/99 Pulse Ox 97 96 O2 Delivery Room Air Room Air Blood Pressure Mean: 148 Departure Communication (Admissions) Adding a dose of Decadron intramuscular plus doxycycline and hydrocodone to her regimen. She continues the Augmentin. Ultrasound negative for DVT. Impression Primary Impression: Cellulitis Qualified Codes: L03.90 - Cellulitis, unspecified Disposition: 01 HOME, SELF-CARE Condition: Stable Departure-Patient Inst. Decision time for Depature: 10:49 Referrals: [facility] (PCP) Primary Care Physician CARISA KHAN (Family) Primary Care Physician Patient Instructions: Cellulitis (Skin Infection), Adult (DC) Scripts Doxycycline Hyclate (Doxycycline Hyclate) 100 Mg Tablet 100 MG PO BID, #20 TAB 0 Refills Prov: ALLEGRA VILLATORO APRN 04/14/20 Hydrocodone/Acetaminophen (Lorcet 5-325 mg Tablet) 1 Each Tablet 1 EACH PO Q4-6HR PRN for PAIN-MODERATE MDD 10 for 7 Days, #14 TAB Prov: ALLEGRA VILLATORO APRN 04/14/20 ALLEGRA VILLATORO APRN Apr 14, 2020 10:52
[2020-04-14] MEDS ORDERED: DOXY100T2 PO (12:03)
--- NOTE | 2020-04-14 12:13 | Diagnostic Imaging Report ---
EXAMINATION: US Right Lower Extremity Venous Duplex. TECHNIQUE: Multiple real-time grayscale images were obtained over the right lower extremity in various projections. Additional spectral analysis and color Doppler duplex images were also obtained. HISTORY: Right leg pain and swelling. COMPARISON: 02/01/2020. FINDINGS: The right common femoral vein, deep femoral vein, superficial femoral vein and popliteal vein are patent with normal royal scale and doppler appearance. There is normal respiratory variation and augmentation. IMPRESSION: 1. No DVT of the right lower extremity. Dictated by: Dictated on workstation # [id number]
[2020-04-14] MEDS ORDERED: DOXYCYCLINE 100 MG (VIBRAMYCIN) TABLET PO SCH (12:15)
[2020-04-14 12:25] VITALS: BP 156/99
== END 2020-04-14 12:25 | disposition home or self-care (01) ==
LOC: EDUNIT# 08:08 → ER 08:10
DX: L03.115 Cellulitis of right lower limb (principal); E11.9 Type 2 diabetes mellitus without complications; K21.9 Gastro-esophageal reflux disease without esophagitis; E66.01 Morbid (severe) obesity due to excess calories; I10 Essential (primary) hypertension; Z68.43 Body mass index [BMI] 50.0-59.9, adult; Z88.5 Allergy status to narcotic agent; Z88.8 Allergy status to other drugs, medicaments and biological substances; Z82.49 Family history of ischemic heart disease and other diseases of the circulatory system; Z83.3 Family history of diabetes mellitus; Z82.61 Family history of arthritis; Z79.84 Long term (current) use of oral hypoglycemic drugs; Z20.828 Contact with and (suspected) exposure to other viral communicable diseases

== ENCOUNTER 2020-04-22 20:09 | Emergency (ER) | payer MEDICAID ==
[~2020-04-22] VITALS: Ht 175 cm; Wt 156.9 kg
[~2020-04-22 20:09] MED LIST changes: +HYDR-3870 PO
[2020-04-22] MEDS ORDERED: diphenhydrAMINE 50 MG/ML INJ (BENADRYL) IV STA (20:35)
[2020-04-22] MEDS ORDERED: LIDOCAINE 2% VISCOUS 15 ML UDC PO ONE (20:45)
[2020-04-22] MEDS ORDERED: ANTACID SUSP 30 ML UDC (MYLANTA) PO ONE (20:45)
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
[2020-04-22 20:47] LABS: BASOPHILS # (AUTO) 0.1 10^3/uL (0.0-0.1); BASOPHILS % (AUTO) 1 % (0-10); EOSINOPHILS # (AUTO) 0.3 10^3/uL (0.0-0.3); EOSINOPHILS % (AUTO) 3 % (0-10); HEMATOCRIT 44 % (35-52); HEMOGLOBIN 13.6 g/dL (11.5-16.0); LYMPHOCYTES # (AUTO) 2.7 10^3/uL (1.0-4.0); LYMPHOCYTES % (AUTO) 27 % (12-44); MEAN CORPUSCULAR HEMOGLOBIN 26 pg (25-34); MEAN CORPUSCULAR HGB CONC 31 g/dL (32-36); MEAN CORPUSCULAR VOLUME 85 fL (80-99); MONOCYTES # (AUTO) 0.8 10^3/uL (0.0-1.0); MONOCYTES % (AUTO) 8 % (0-12); NEUTROPHILS # (AUTO) 6.3 10^3/uL (1.8-7.8); NEUTROPHILS % (AUTO) 62 % (42-75); PLATELET COUNT 317 10^3/uL (130-400); WHITE BLOOD COUNT 10.1 10^3/uL (4.3-11.0)
--- NOTE | 2020-04-22 20:54 | Diagnostic Imaging Report ---
EXAMINATION: Chest 1 view HISTORY: Chest pain. Allergic reaction. COMPARISON: Chest radiograph on 02/22/2020. FINDINGS: The lung volumes are normal. No focal consolidation is seen. No large pleural effusion or pneumothorax is seen. The cardiomediastinal silhouette is stable. No acute osseous abnormality is seen. IMPRESSION: 1. No acute pleuroparenchymal process. Dictated by: Dictated on workstation # [id number]
[2020-04-22 21:05] LABS: ALBUMIN 4.1 GM/DL (3.2-4.5)
[2020-04-22 21:06] LABS: CHLORIDE 107 MMOL/L (98-107); SODIUM 140 MMOL/L (135-145)
[2020-04-22 21:08] LABS: GLUCOSE 94 MG/DL (70-105); TOTAL PROTEIN 7.5 GM/DL (6.4-8.2)
[2020-04-22 21:09] LABS: CARBON DIOXIDE 22 MMOL/L (21-32)
[2020-04-22 21:10] LABS: BILIRUBIN,TOTAL 0.2 MG/DL (0.1-1.0)
[2020-04-22 21:12] LABS: ALKALINE PHOSPHATASE 49 U/L (40-136); CREATININE SERUM 0.81 MG/DL (0.60-1.30); GFR ESTIMATED > 60
[2020-04-22 21:13] LABS: BUN/CREATININE RATIO 11
[2020-04-22 21:15] LABS: ALANINE AMINOTRANSFERASE 25 U/L (0-55)
[2020-04-22 21:55] VITALS: BP 129/72
== END 2020-04-22 21:55 | disposition home or self-care (01) ==
LOC: EDUNIT# 20:09 → ER 20:10
DX: F41.9 Anxiety disorder, unspecified (principal); I10 Essential (primary) hypertension; K21.9 Gastro-esophageal reflux disease without esophagitis; E11.9 Type 2 diabetes mellitus without complications; E66.01 Morbid (severe) obesity due to excess calories; Z88.5 Allergy status to narcotic agent; Z88.8 Allergy status to other drugs, medicaments and biological substances; Z79.51 Long term (current) use of inhaled steroids; Z79.84 Long term (current) use of oral hypoglycemic drugs; Z87.01 Personal history of pneumonia (recurrent); Z87.440 Personal history of urinary (tract) infections; Z68.43 Body mass index [BMI] 50.0-59.9, adult
CPT/HCPCS: 36415; 71045; 80053; 83880; 84484; 84703; 85025; 93005; 93041

== ENCOUNTER → 2020-04-24 | Outpatient (CLI) | payer MEDICAID | LOC: LAB 09:50 | PROVIDERS: ATTEND Nurse Practitioner Community Health | DX: T78.1XXA Other adverse food reactions, not elsewhere classified, initial encounter (principal) | CPT/HCPCS: 36415; 86003 ==

== ENCOUNTER → 2020-06-27 | Outpatient (CLI) | payer MEDICAID ==
[~2020-06-27] MED LIST changes: +AMLO-251 PO; -AMLO10TA7 PO
--- NOTE | 2020-06-27 15:57 | Diagnostic Imaging Report ---
Indication: Palpable lump right breast. No prior studies are available for comparison. 2-D and 3-D bilateral diagnostic mammography was performed CAD. BB marker was placed at the area of palpable abnormality right breast. Both breasts are primarily volitional. There is intramammary lymph node in the upper outer left breast. Right breast is unremarkable. No spiculated mass or malignant appearing microcatheter locations are seen. Axillae are unremarkable. IMPRESSION: BI-RADS 0 No mammographic features suspicious for malignancy are identified. Even so, directed sonographic interrogation of the area of palpable abnormality in the right breast is recommended and will be performed today. Dictated by: Dictated on workstation # [id number]
--- NOTE | 2020-06-27 16:05 | Diagnostic Imaging Report ---
INDICATION: Palpable lump right breast. CORRELATION is made with diagnostic mammogram earlier same day. Sonographic interrogation of area of lump right breast was performed. There is a slightly echogenic mass at the area of lump in the 11:00 location, 6 cm from the nipple measuring 3.1 x 1.4 x 2.2 cm. The patient stated that she sustained a right breast injury recently. This could represent a hematoma. No internal vascularity is identified. IMPRESSION: BI-RADS Category 3 Probable right breast hematoma. Follow-up right breast ultrasound in approximately 6-8 weeks is recommended to show stability or clearing. Dictated by: Dictated on workstation # [id number]
== END ==
LOC: RAD 14:00
PROVIDERS: ATTEND Nurse Practitioner Community Health
DX: N60.21 Fibroadenosis of right breast (principal); N60.22 Fibroadenosis of left breast; N63.10 Unspecified lump in the right breast, unspecified quadrant
CPT/HCPCS: 77062; 77066

== ENCOUNTER → 2020-09-19 | Outpatient (CLI) | payer MEDICAID ==
--- NOTE | 2020-09-19 11:20 | Diagnostic Imaging Report ---
Indication: Hematoma of the breast. Correlation is made with prior ultrasound from 06/27/2020. Sonographic interrogation right breast again demonstrates an area of mixed echogenicity at the 11:00 location, 6 images from the nipple. This now measures 1.7 x 0.7 x 1.9 cm compared with 3.1 x 1.4 x 2.2 cm. Most likely represents a hematoma decreasing in size. No new masses detected. IMPRESSION: BI-RADS 3 Decrease in size of a mixed echogenicity mass at the 11:00 location right breast 6 cm from the nipple, suggestive of a hematoma. Follow-up ultrasound in 2 months is recommended to show continued diminution in size. ACR BI-RADS Category 3: Probably benign findings. Dictated by: Dictated on workstation # [id number]
== END ==
LOC: RAD 10:19
PROVIDERS: ATTEND Nurse Practitioner Community Health
DX: N64.89 Other specified disorders of breast (principal)

== ENCOUNTER 2020-12-21 22:02 | Emergency (ER) | payer MEDICAID ==
[~2020-12-21] VITALS: Ht 175.3 cm; Wt 156.5 kg
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
[2020-12-21 23:30] VITALS: BP 144/98
--- NOTE | 2020-12-22 08:06 | Diagnostic Imaging Report ---
EXAM: TIBIA/FIBULA, LEFT, 2 VIEWS INDICATION: Leg pain. COMPARISON: Left tibia and fibula radiographs 11/12/2018. FINDINGS: Examination limited by underpenetration. Moderate degenerative changes in the left knee are greatest in the medial compartment. No fracture or malalignment identified. Soft tissue shadows are unremarkable. IMPRESSION: No acute radiographic findings in the left tibia or fibula. Dictated by: Dictated on workstation # [id number]
--- NOTE | 2020-12-22 08:09 | Diagnostic Imaging Report ---
INDICATION: Left knee and norton pain. FINDINGS: 3 views of the left knee demonstrate moderate osteophytes greatest in the medial and patellofemoral compartments. Small joint effusion is present. No fracture or subluxation is present. IMPRESSION: There are at least moderate degenerative changes of the left knee with small joint effusion. Dictated by: Dictated on workstation # [id number]
== END 2020-12-21 23:30 | disposition home or self-care (01) ==
LOC: EDUNIT# 22:02 → ER 22:04
DX: M79.662 Pain in left lower leg (principal); M25.562 Pain in left knee; E66.01 Morbid (severe) obesity due to excess calories; I10 Essential (primary) hypertension; K21.9 Gastro-esophageal reflux disease without esophagitis; E11.9 Type 2 diabetes mellitus without complications; Z68.43 Body mass index [BMI] 50.0-59.9, adult; Z88.5 Allergy status to narcotic agent; Z88.8 Allergy status to other drugs, medicaments and biological substances; Z79.899 Other long term (current) drug therapy; Z79.84 Long term (current) use of oral hypoglycemic drugs
CPT/HCPCS: 73562; 73590

== ENCOUNTER → 2021-01-13 | Outpatient (CLI) | payer MEDICAID | LOC: CARD 15:17 | PROVIDERS: ATTEND Pediatrics | DX: R60.9 Edema, unspecified (principal) | CPT/HCPCS: 93306 ==

== ENCOUNTER 2021-05-26 13:56 | Emergency (ER) | payer MEDICAID ==
[~2021-05-26] VITALS: Ht 175 cm; Wt 158.7 kg
[~2021-05-26 13:56] MED LIST changes: -SULF1TAB35 PO; +SULF1TAB38 PO
--- NOTE | 2021-05-26 15:13 | ED Chest Pain ---
General Chief Complaint: General Problems/Pain Stated Complaint: FEELING WEAK Nursing Triage Note: PT PRESENTS TO ED WITH COMPLAINTS OF GENERALIZED FATIGUE, NAUSEA, FACE FLUSHED, AND MEDIAL STERNUM PAIN THAT RADIATES TO HER BACK. PT REPORTS PAIN STARTED LAST NIGH BUT WORSE TODAY. Source: patient Exam Limitations: no limitations History of Present Illness Date Seen by Provider: May 26, 2021 Time Seen by Provider: 15:09 Initial Comments Patient is a 46-year-old female who presents ED with left-sided chest pressure. Symptoms started around 12:00 today. She states she was working at the time. She has had this intermittent chest pain over the past 3 days. Appears occur with exertion however she was driving yesterday when she had this pain. Associated dizziness, lightheadedness, nausea with very minimal shortness of breath. Patient started to feel flushed afterwards. Patient has a history of allergies to red meat. She is unsure if she ate red meat today. Denies of any abdominal pain, dysuria, hematuria, lower extremity weakness, swelling, bruising. History of hypertension with family cardiac history. Denies history of hyperlipidemia, PE, smoking, diabetes. No known history of coronary artery disease, COPD. Patient denies of any urinary symptoms Allergies and Home Medications Allergies Coded Allergies: codeine (Verified Allergy, Severe, Neck swelling, pt able to tolerate Lortab, 12/19/19) hydrochlorothiazide (Verified Allergy, Severe, NECK SWELLING, 01/02/18) dulaglutide (Verified Allergy, Unknown, 12/11/19) Patient Home Medication List Home Medication List Reviewed: Yes Amoxicillin/Potassium Clav (Augmentin 875-125 Tablet) 1 Each Tablet, 1 EACH PO BID Prescribed by: ALLEGRA VILLATORO on 04/12/20 2225 Cetirizine HCl (Cetirizine HCl) 10 Mg Tablet, 10 MG PO DAILY, (Reported) Entered as Reported by: BEST KAUFMAN on 12/11/19 1507 Diltiazem HCl (Cardizem Cd) 240 Mg Cap.er.24h, 240 MG PO DAILY, (Reported) Entered as Reported by: CARLEE BOWDEN on 06/14/16 1027 Doxycycline Hyclate (Doxycycline Hyclate) 100 Mg Tablet, 100 MG PO BID Prescribed by: ALINE BAH on 01/26/20 1904 Doxycycline Hyclate (Doxycycline Hyclate) 100 Mg Tablet, 100 MG PO BID Prescribed by: ALLEGRA VILLATORO on 04/14/20 1203 Famotidine (Pepcid) 40 Mg Tablet, 40 MG PO DAILY, (Reported) Entered as Reported by: MARLEY SALAS on 01/02/18 1312 Ferrous Sulfate (Ferrous Sulfate) 325 Mg Tablet, 325 MG PO DAILY, (Reported) Entered as Reported by: BEST KAUFMAN on 12/11/19 1507 Fluticasone Propionate (Flonase Allergy Relief) 9.9 Ml [place].susp, 1 SPRAY NS DAILY, (Reported) Entered as Reported by: MARLEY SALAS on 01/02/18 1312 Hydrocodone/Acetaminophen (Hydrocodone-Acetamin 7.5-325) 1 Each Tablet, 1 EACH PO Q4H Prescribed by: JUNIOR VENEGAS on 12/19/19 1251 Hydrocodone/Acetaminophen (Lorcet 5-325 mg Tablet) 1 Each Tablet, 1 EACH PO Q4- 6HR PRN for PAIN-MODERATE Prescribed by: ALLEGRA VILLATORO on 04/14/20 1051 Losartan Potassium (Losartan Potassium) 50 Mg Tablet, 50 MG PO DAILY, (Reported) Entered as Reported by: MATTHEW CALDERON on 09/13/17 1741 Metformin HCl (Metformin HCl) 500 Mg Tablet, 500 MG PO BID, (Reported) Entered as Reported by: NELI STARR on 12/04/16 1453 Promethazine HCl (Promethazine Tablet) 25 Mg Tablet, 25 MG PO Q6H PRN for NAUSEA/VOMITING Prescribed by: NICK HSIEH on 03/13/20 0133 Propranolol HCl (Propranolol HCl) 10 Mg Tablet, 10 MG PO BID, (Reported) Entered as Reported by: CARLEE BOWDEN on 06/14/16 1027 Spironolactone (Spironolactone) 25 Mg Tablet, 25 MG PO DAILY, (Reported) Entered as Reported by: CARLEE BOWDEN on 06/14/16 1027 Sulfamethoxazole/Trimethoprim (Bactrim Ds Tablet) 1 Each Tablet, 1 EACH PO BID Prescribed by: ANDREEA WASHINGTON on 01/20/20 0143 Tramadol HCl (Ultram) 50 Mg Tablet, 50 MG PO Q6H PRN for PAIN-BREAKTHROUGH Prescribed by: ALINE BAH on 01/26/201903 Review of Systems Review of Systems Constitutional: No no symptoms reported, No see HPI, No chills; dizziness, malaise EENTM: No Blurred Vision, No Double Vision, No Eye Pain, No Eye Tearing Respiratory: Cough, Shortness of Air; Denies SOA With Exertion, Denies SOA at Rest Cardiovascular: Chest Pain; Denies Edema, Denies Irregular Heart Rate Gastrointestinal: Denies Abdominal Pain, Denies Constipated; Nausea; Denies Vomiting Genitourinary: Denies Burning, Denies Discharge Musculoskeletal: No back pain, No gout, No joint pain Skin: No change in color, No change in hair/nails Psychiatric/Neurological: Denies Anxiety, Denies Depressed Endocrine: Flushing Past Qcsrwaf-Tisiny-Pxxpun Hx Patient Social History Tobacco Use?: No Substance use?: No Alcohol Use?: No Pt feels they are or have been: No Immunizations Up To Date Tetanus Booster (TDap): More than 5yrs PED Vaccines UTD: No Seasonal Allergies Seasonal Allergies: Yes Past Medical History Surgeries: Yes ( X 3) Section, Gallbladder Respiratory: Yes Pneumonia Currently Using CPAP: No Currently Using BIPAP: No Cardiac: Yes (HEART MURMUR A CHILD) Heart Murmur, Hypertension Neurological: Yes Headaches /Migraines Reproductive Disorders: No Female Reproductive Disorders: Menstrual Problems Sexually Transmitted Disease: No HIV/AIDS: No Genitourinary: Yes UTI-Chronic Gastrointestinal: Yes Gastroesophageal Reflux Musculoskeletal: No Endocrine: Yes (MORBID OBESTIY, INSULIN RESISTANCE) Diabetes, Non-Insulin dep HEENT: Yes Tonsilitis Loss of Vision: Bilateral Hearing Impairment: Denies Cancer: No Psychosocial: No Integumentary: Yes (CELLULITIS) Blood Disorders: Yes (ANEMIA) Adverse Reaction/Blood Tranf: No (N/A) Family Medical History Arthritis Asthma 19 FATHER (copd) 19 MOTHER (copd) Cardiovascular disease 19 FATHER (chf) Diabetes mellitus 19 FATHER Hypertension 19 FATHER 19 MOTHER G8 BROTHER G8 SISTER No Pertinent Family Hx Physical Exam Vital Signs Vital Signs - First Documented 05/26/21 14:54 Temp 36.0 Pulse 84 Resp 18 B/P (MAP) 197/123 (147) Pulse Ox 98 Capillary Refill : Less Than 3 Seconds Height, Weight, BMI Height: 5'9.00" Weight: 354lbs. 0.0oz. 160.102212os; 51.00 BMI Method:Stated General Appearance: No Apparent Distress, WD/WN HEENT: PERRL/EOMI, TMs Normal, Normal ENT Inspection, Pharynx Normal Neck: Full Range of Motion, Normal Inspection, Non Tender, Supple Respiratory: Chest Non Tender, Lungs Clear, Normal Breath Sounds, No Accessory Muscle Use Cardiovascular: Regular Rate, Rhythm, No Edema, No Gallop, No JVD, No Murmur Gastrointestinal: Normal Bowel Sounds, No Organomegaly, No Pulsatile Mass, Non Tender Extremity: Normal Capillary Refill, Normal Inspection, Normal Range of Motion, Non Tender, No Calf Tenderness Neurologic/Psychiatric: Alert, Oriented x3, No Motor/Sensory Deficits, Normal Mood/Affect, 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 Norm as Tested Skin: Normal Color, Warm/Dry Progress/Results/Core Measures Results/Orders Lab Results Laboratory Tests Test 05/26/21 15:07 05/26/21 15:26 05/26/21 18:00 Range/Units White Blood Count 10.3 4.3-11.0 10^3/uL Red Blood Count 4.83 3.80-5.11 10^6/uL Hemoglobin 12.6 11.5-16.0 g/dL Hematocrit 40 35-52 % Mean Corpuscular Volume 83 80-99 fL Mean Corpuscular Hemoglobin 26 25-34 pg Mean Corpuscular Hemoglobin Concent 31 L 32-36 g/dL Red Cell Distribution Width 13.9 10.0-14.5 % Platelet Count 314 130-400 10^3/uL Mean Platelet Volume 9.3 9.0-12.2 fL Immature Granulocyte % (Auto) 1 % Neutrophils (%) (Auto) 74 42-75 % Lymphocytes (%) (Auto) 17 12-44 % Monocytes (%) (Auto) 6 0-12 % Eosinophils (%) (Auto) 2 0-10 % Basophils (%) (Auto) 0 0-10 % Neutrophils # (Auto) 7.6 1.8-7.8 10^3/uL Lymphocytes # (Auto) 1.8 1.0-4.0 10^3/uL Monocytes # (Auto) 0.6 0.0-1.0 10^3/uL Eosinophils # (Auto) 0.2 0.0-0.3 10^3/uL Basophils # (Auto) 0.0 0.0-0.1 10^3/uL Immature Granulocyte # (Auto) 0.1 0.0-0.1 10^3/uL Prothrombin Time 14.0 12.2-14.7 SEC INR Comment 1.0 0.8-1.4 Activated Partial Thromboplast Time 34 24-35 SEC Sodium Level 141 135-145 MMOL/L Potassium Level 4.0 3.6-5.0 MMOL/L Chloride Level 105 98-107 MMOL/L Carbon Dioxide Level 23 21-32 MMOL/L Anion Gap 13 5-14 MMOL/L Blood Urea Nitrogen 7 7-18 MG/DL Creatinine 0.73 0.60-1.30 MG/DL Estimat Glomerular Filtration Rate 86 BUN/Creatinine Ratio 10 Glucose Level 105 70-105 MG/DL Calcium Level 9.1 8.5-10.1 MG/DL Corrected Calcium 8.9 8.5-10.1 MG/DL Magnesium Level 2.2 1.6-2.4 MG/DL Total Bilirubin 0.4 0.1-1.0 MG/DL Aspartate Amino Transf (AST/SGOT) 20 5-34 U/L Alanine Aminotransferase (ALT/SGPT) 16 0-55 U/L Alkaline Phosphatase 44 40-136 U/L Troponin I < 0.028 < 0.028 <0.028 NG/ML Total Protein 7.4 6.4-8.2 GM/DL Albumin 4.2 3.2-4.5 GM/DL Serum Test, Qualitative NEGATIVE NEGATIVE Urine Color YELLOW Urine Clarity CLEAR Urine pH 6.0 5-9 Urine Specific [place] 1.015 L 1.016-1.022 Urine Protein NEGATIVE NEGATIVE Urine Glucose (UA) NEGATIVE NEGATIVE Urine Ketones 1+ H NEGATIVE Urine Nitrite NEGATIVE NEGATIVE Urine Bilirubin NEGATIVE NEGATIVE Urine Urobilinogen 0.2 < = 1.0 MG/DL Urine Leukocyte Esterase NEGATIVE NEGATIVE Urine RBC (Auto) 3+ H NEGATIVE Urine RBC 2-5 H /HPF Urine WBC NONE /HPF Urine Crystals NONE /LPF Urine Bacteria TRACE /HPF Urine Casts NONE /LPF Urine Mucus NEGATIVE /LPF Urine Culture Indicated NO My Orders Orders - BROOKE STODDARD PA Cbc With Automated Diff (05/26/21 15:02) Magnesium (05/26/21 15:02) Chest 1 View, Ap/Pa Only (05/26/21 15:02) Ekg Tracing (05/26/21 15:02) Comprehensive Metabolic Panel (05/26/21 15:02) Protime With Inr (05/26/21 15:02) Partial Thromboplastin Time (05/26/21 15:02) Monitor-Rhythm Ecg Trace Only (05/26/21 15:02) Ed Iv/Invasive Line Start (05/26/21 15:02) Troponin I (05/26/21 15:02) Aspirin Chewable Tablet (Baby Aspirin Ch (05/26/21 15:15) Ua Culture If Indicated (05/26/21 15:02) Hcg,Qualitative Serum (05/26/21 15:02) Ondansetron Injection (Zofran Injectio (05/26/21 15:15) Troponin I (05/26/21 18:04) Medications Given in ED Current Medications Medications Dose Ordered Sig/Minerva Route Start Time Stop Time Status Last Admin Dose Admin Aspirin 324 mg ONCE ONCE PO 05/26/21 15:15 05/26/21 15:16 DC 05/26/21 15:23 324 MG Ondansetron HCl 4 mg ONCE ONCE IVP 05/26/21 15:15 05/26/21 15:16 DC 05/26/21 15:23 4 MG Vital Signs/I&O 05/26/21 05/26/21 14:54 18:39 Temp 36.0 Pulse 84 84 Resp 18 16 B/P (MAP) 197/123 (147) 155/84 Pulse Ox 98 98 Blood Pressure Mean: 147 Departure Communication (Admissions) Patient is a 46-year-old female chest pain. Intermittent pain over the past 3 days. Left-sided pain to her chest. Mild tenderness on palpation. EKG shows normal sinus rhythm. No evidence of ST elevation, depression, arrhythmia. She is not hypoxic, tachycardic. Denies of any recent travels or surgeries. Low risk for PE. No appreciation of leg pain or swelling at this time. Initial troponin negative. Redraw all 3 hours was negative. She does have some cardiac risk factors. Low heart score. Did offered admission but patient would rather follow-up outpatient at this time so second troponin was drawn. Patient symptoms appear to be improving. She does have some mild tenderness to palpation. Pleurisy is a possibility. Urinalysis unremarkable. Lab work otherwise unremarkable. Chest x-ray negative for pneumonia, pneumothorax. Return precaution were discussed with patient. If any worsening symptoms strongly recommend return back to ED and discussed cardiac work-up and admission. Patient had a echocardiogram done this past December ejection fraction 60 to 65%. Mildly enlarged left ventricle. Impression Primary Impression: Chest pain Disposition: HOME, SELF-CARE Condition: Stable Departure-Patient Inst. Decision time for Depature: 18:31 Referrals: [facility] [place] (PCP/Family) Primary Care Physician Patient Instructions: Chest Pain (DC) BROOKE STODDARD May 26, 2021 15:13
[2021-05-26] MEDS ORDERED: ONDANSETRON 4 MG/2 ML (SDV) Z0FRAN IVP ONE (15:15)
[2021-05-26] MEDS ORDERED: ASPIRIN 81 MG CHEW (CHILDREN'S ASA) PO ONE (15:15)
[2021-05-26 15:25] LABS: BASOPHILS % (AUTO) 0 % (0-10); EOSINOPHILS # (AUTO) 0.2 10^3/uL (0.0-0.3); EOSINOPHILS % (AUTO) 2 % (0-10); HEMATOCRIT 40 % (35-52); HEMOGLOBIN 12.6 g/dL (11.5-16.0); LYMPHOCYTES # (AUTO) 1.8 10^3/uL (1.0-4.0); LYMPHOCYTES % (AUTO) 17 % (12-44); MEAN CORPUSCULAR HEMOGLOBIN 26 pg (25-34); MEAN CORPUSCULAR HGB CONC 31 g/dL (32-36); MEAN CORPUSCULAR VOLUME 83 fL (80-99); MEAN PLATELET VOLUME 9.3 fL (9.0-12.2); MONOCYTES # (AUTO) 0.6 10^3/uL (0.0-1.0); MONOCYTES % (AUTO) 6 % (0-12); NEUTROPHILS # (AUTO) 7.6 10^3/uL (1.8-7.8); NEUTROPHILS % (AUTO) 74 % (42-75); PLATELET COUNT 314 10^3/uL (130-400); WHITE BLOOD COUNT 10.3 10^3/uL (4.3-11.0)
[2021-05-26 15:35] LABS: BILIRUBIN,URINE NEGATIVE (NEGATIVE); CLARITY,URINE CLEAR; COLOR,URINE YELLOW; GLUCOSE, URINE (UA) NEGATIVE (NEGATIVE); KETONES,URINE 1+ (NEGATIVE); LEUKOCYTE ESTERASE ,URINE NEGATIVE (NEGATIVE); NITRITE,URINE NEGATIVE (NEGATIVE); PROTEIN,URINE NEGATIVE (NEGATIVE)
[2021-05-26 15:35] LABS: ALBUMIN 4.2 GM/DL (3.2-4.5)
--- NOTE | 2021-05-26 15:36 | Diagnostic Imaging Report ---
INDICATION: Chest pain. TIME OF EXAM: 3:23 PM. COMPARISON: 04/22/2020. FINDINGS: The heart size is normal. The pulmonary vascularity is unremarkable. The lungs are clear. No infiltrate, effusion, or pneumothorax is detected. IMPRESSION: No acute cardiopulmonary process is detected. Dictated by: Dictated on workstation # [id number]
[2021-05-26 15:37] LABS: CALCIUM 9.1 MG/DL (8.5-10.1)
[2021-05-26 15:38] LABS: TOTAL PROTEIN 7.4 GM/DL (6.4-8.2)
[2021-05-26 15:40] LABS: BILIRUBIN,TOTAL 0.4 MG/DL (0.1-1.0)
[2021-05-26 15:42] LABS: CREATININE SERUM 0.73 MG/DL (0.60-1.30)
[2021-05-26 15:44] LABS: MAGNESIUM 2.2 MG/DL (1.6-2.4)
[2021-05-26 15:50] LABS: BACTERIA,URINE TRACE /HPF
[2021-05-26 18:39] VITALS: BP 155/84
== END 2021-05-26 18:39 | disposition home or self-care (01) ==
LOC: EDUNIT# 13:56 → ER 14:00
DX: R07.9 Chest pain, unspecified (principal); I10 Essential (primary) hypertension; K21.9 Gastro-esophageal reflux disease without esophagitis; E66.01 Morbid (severe) obesity due to excess calories; E11.9 Type 2 diabetes mellitus without complications; Z68.43 Body mass index [BMI] 50.0-59.9, adult; Z79.899 Other long term (current) drug therapy; Z79.84 Long term (current) use of oral hypoglycemic drugs
CPT/HCPCS: 36415; 71045; 80053; 81000; 83735; 84484; 84703; 85025; 85610; 85730; 93005; 93041

== ENCOUNTER → 2021-06-16 | Outpatient (CLI) | payer MEDICAID ==
[~2021-06-16] MED LIST changes: +CATHETER FLUSH 10 ML SYR IV PRN; +DICY20TA; +DICY20TA PO; -DICY20TA10; -DICY20TA10 PO; +REGADENOSON 0.4 MG/5 ML SYR (LEXISCAN) IV ONE
[2021-06-16 09:14] VITALS: BP 147/117
--- NOTE | 2021-06-16 12:20 | STRESS TEST ---
DATE OF SERVICE: 06/16/2021 RESTING AND POST REGADENOSON TECHNETIUM-99M TETROFOSMIN SPECT CT IMAGING ORDERING PHYSICIAN: Dr. Manish Lopez. OTHER PHYSICIAN: [facility]. CLINICAL DIAGNOSIS: Chest discomfort. Baseline images were carried out after injection of 10.57 mCi of technetium-99m Tetrofosmin. This was followed by 0.4 mg regadenoson and 31.7 mCi of technetium-99 Tetrofosmin for stress imaging. The electrocardiogram showed sinus rhythm at baseline and it did not change significantly with the regadenoson infusion. The patient tolerated the procedure well. Review of images at rest and following stress does not indicate any distinct perfusion defects consistent with significant myocardial ischemia or infarction. Gated images show normal global left ventricular systolic function with normal regional wall motion. Left ventricular ejection fraction is calculated to be 73%. TID is absent (0.98). CONCLUSIONS: 1. No evidence of significant myocardial ischemia or infarction on this study. 2. Normal regional wall motion. 3. Normal global left ventricular systolic function with a calculated ejection fraction of 73%. Job ID: [id number] DocumentID: [id number] Dictated Date: 06/16/2021 12:12:06 Steam Shovel Runner Date: 06/16/2021 12:19:05 Dictated By: PROSPER AGUAYO MD, MA, FACP, FACC, MTDD
== END ==
LOC: CARD 08:30
PROVIDERS: ATTEND Pediatrics
DX: R07.89 Other chest pain (principal)
CPT/HCPCS: 78452; 93017

== ENCOUNTER → 2021-07-13 | Outpatient (CLI) | payer MEDICAID ==
[~2021-07-13] VITALS: Ht 154.9 cm; Wt 161.8 kg
[~2021-07-13] MED LIST changes: -CATHETER FLUSH 10 ML SYR IV PRN; +LIDOCAINE 1% INJ 20 ML 20 ML VIAL INJ ONE; -REGADENOSON 0.4 MG/5 ML SYR (LEXISCAN) IV ONE
--- NOTE | 2021-07-13 14:41 | Diagnostic Imaging Report ---
INDICATION: Right thyroid nodule. Patient presents for ultrasound-guided fine-needle aspiration and biopsy. The patient was brought to the procedure room and placed on the table in supine position. Ultrasound imaging of the right neck was performed to evaluate appropriate entry site. The right neck was then prepped and draped in the usual sterile fashion. A small amount of 1% lidocaine was utilized for local anesthesia. Total of four passes were made into the dominant solid right lobe thyroid nodule utilizing 25-gauge needle using fine-needle aspiration technique. A single pass was made with a Rotex needle, and a Rotex biopsy was performed. Needle was removed, and hemostasis was obtained. Patient tolerated the procedure well and left the department in stable condition. IMPRESSION: Successful ultrasound-guided fine-needle aspiration and Rotex biopsy of right lobe thyroid nodule. Pathology results are currently pending. Dictated by: Dictated on workstation # [id number]
== END ==
LOC: RAD 11:23
PROVIDERS: ATTEND Pediatrics
DX: E04.1 Nontoxic single thyroid nodule (principal)
CPT/HCPCS: 10005

== ENCOUNTER 2021-12-06 08:39 | Emergency (ER) | payer MEDICAID ==
[~2021-12-06] VITALS: Ht 175.2 cm; Wt 161.8 kg
[~2021-12-06 08:39] MED LIST changes: -LIDOCAINE 1% INJ 20 ML 20 ML VIAL INJ ONE
--- NOTE | 2021-12-06 10:15 | ED General ---
General Chief Complaint: General Problems/Pain Stated Complaint: R LEG PAIN Nursing Triage Note: right leg pain started 2 days ago during the night. unknown reason, no reason. "comes and go's" (ALEJO HWANG) History of Present Illness Date Seen by Provider: December 06, 2021 Time Seen by Provider: 10:00 Initial Comments 46 year old female presents with right anterior norton pain that woke her from sleep 2 nights ago. The pain comes and goes and is stabbing in nature. She rates the pain currently as 4 or 5/10 and was as bad as 7/10 pain last night. Sitting in the chair with her legs up can help the pain. Standing makes the pain worse. Taking ibuprofen does not help the pain. She denies recent injury or trauma to the affected area. She takes lasix chronically for leg swelling and reports noticing her right leg may be more swollen than normal. She has noticed some numbness in the area as well between the stabbing pain she has. She reports having negative work up for possible clot in one her legs in the past (she is unsure which) and feels like this pain is different than the pain she had at that time. Timing/Duration: 1-2 Days (ALEJO HWANG) Allergies and Home Medications Allergies Coded Allergies: codeine (Verified Allergy, Severe, Neck swelling, pt able to tolerate Lortab, 12/19/19) hydrochlorothiazide (Verified Allergy, Severe, NECK SWELLING, 01/02/18) dulaglutide (Verified Allergy, Unknown, 12/11/19) Patient Home Medication List Home Medication List Reviewed: Yes (ALINE DECKER MD) Amoxicillin/Potassium Clav (Augmentin 875-125 Tablet) 1 Each Tablet, 1 EACH PO BID Prescribed by: ALLEGRA VILLATORO on 04/12/20 2225 Cetirizine HCl (Cetirizine HCl) 10 Mg Tablet, 10 MG PO DAILY, (Reported) Entered as Reported by: BEST KAUFMAN on 12/11/19 1507 Diltiazem HCl (Cardizem Cd) 240 Mg Cap.er.24h, 240 MG PO DAILY, (Reported) Entered as Reported by: CARLEE BOWDEN on 06/14/16 1027 Doxycycline Hyclate (Doxycycline Hyclate) 100 Mg Tablet, 100 MG PO BID Prescribed by: ALINE BAH on 01/26/20 1904 Doxycycline Hyclate (Doxycycline Hyclate) 100 Mg Tablet, 100 MG PO BID Prescribed by: ALLEGRA VILLATORO on 04/14/20 1203 Famotidine (Pepcid) 40 Mg Tablet, 40 MG PO DAILY, (Reported) Entered as Reported by: MARLEY SALAS on 01/02/18 1312 Ferrous Sulfate (Ferrous Sulfate) 325 Mg Tablet, 325 MG PO DAILY, (Reported) Entered as Reported by: BEST KAUFMAN on 12/11/19 1507 Fluticasone Propionate (Flonase Allergy Relief) 9.9 Ml [place].susp, 1 SPRAY NS DAILY, (Reported) Entered as Reported by: MARLEY SALAS on 01/02/18 1312 Gabapentin (Neurontin) 300 Mg Capsule, 300 MG PO TID Prescribed by: ALINE BAH on 12/06/21 1055 Hydrocodone/Acetaminophen (Hydrocodone-Acetamin 7.5-325) 1 Each Tablet, 1 EACH PO Q4H Prescribed by: JUNIOR VENEGAS on 12/19/19 1251 Hydrocodone/Acetaminophen (Lorcet 5-325 mg Tablet) 1 Each Tablet, 1 EACH PO Q4- 6HR PRN for PAIN-MODERATE Prescribed by: ALLEGRA VILLATORO on 04/14/20 1051 Losartan Potassium (Losartan Potassium) 50 Mg Tablet, 50 MG PO DAILY, (Reported) Entered as Reported by: MATTHEW CALDERON on 09/13/17 1741 Metformin HCl (Metformin HCl) 500 Mg Tablet, 500 MG PO BID, (Reported) Entered as Reported by: NELI STARR on 12/04/16 1453 Promethazine HCl (Promethazine Tablet) 25 Mg Tablet, 25 MG PO Q6H PRN for NAUSEA/VOMITING Prescribed by: NICK HSIEH on 03/13/20 0133 Propranolol HCl (Propranolol HCl) 10 Mg Tablet, 10 MG PO BID, (Reported) Entered as Reported by: CARLEE BOWDEN on 06/14/16 1027 Spironolactone (Spironolactone) 25 Mg Tablet, 25 MG PO DAILY, (Reported) Entered as Reported by: CARLEE BOWDEN on 06/14/16 1027 Sulfamethoxazole/Trimethoprim (Bactrim Ds Tablet) 1 Each Tablet, 1 EACH PO BID Prescribed by: ANDREEA WASHINGTON on 01/20/20 0143 Tramadol HCl (Ultram) 50 Mg Tablet, 50 MG PO Q6H PRN for PAIN-BREAKTHROUGH Prescribed by: ALINE BAH on 01/26/20 190 Review of Systems Review of Systems Constitutional: No chills, No dizziness, No fever EENTM: no symptoms reported Respiratory: No cough, No short of breath Cardiovascular: No chest pain, No palpitations Gastrointestinal: no symptoms reported Musculoskeletal: No muscle pain; muscle weakness, other (She reports anterior norton pain isn't localized to a muscle group and doesn't feel muscular in nature.) Skin: No change in color, No rash Psychiatric/Neurological: No Symptoms Reported Hematologic/Lymphatic: No Symptoms Reported Immunological/Allergic: no symptoms reported (ALEJO HWANG) Past Rrjvnph-Mohlln-Syfdlc Hx Patient Social History Tobacco Use?: No Use of E-Cig and/or Vaping dev: No Substance use?: No Alcohol Use?: No Pt feels they are or have been: No (ALEJO HWANG) Immunizations Up To Date Tetanus Booster (TDap): More than 5yrs PED Vaccines UTD: No (ALEJO HWANG) Seasonal Allergies Seasonal Allergies: Yes (ALEJO HWANG) Past Medical History Surgeries: Yes ( X 3) Section, Gallbladder Respiratory: Yes Pneumonia Currently Using CPAP: No Currently Using BIPAP: No Cardiac: Yes (HEART MURMUR A CHILD) Heart Murmur, Hypertension Neurological: Yes Headaches /Migraines Last Menstrual Period: November 15, 2021 Reproductive Disorders: No Female Reproductive Disorders: Menstrual Problems Sexually Transmitted Disease: No HIV/AIDS: No Genitourinary: Yes UTI-Chronic Gastrointestinal: Yes Gastroesophageal Reflux Musculoskeletal: No Endocrine: Yes (MORBID OBESTIY, INSULIN RESISTANCE,) Diabetes, Non-Insulin dep HEENT: Yes Tonsilitis Loss of Vision: Bilateral Hearing Impairment: Denies Cancer: No Psychosocial: No Integumentary: Yes (CELLULITIS) Blood Disorders: Yes (ANEMIA) Adverse Reaction/Blood Tranf: No (N/A) (ALEJO HWANG) Family Medical History Arthritis Asthma 19 FATHER (copd) 19 MOTHER (copd) Cardiovascular disease 19 FATHER (chf) Diabetes mellitus 19 FATHER Hypertension 19 FATHER 19 MOTHER G8 BROTHER G8 SISTER Heart Disease (Hypertension in both parents, HF of unspecified kind in father), Diabetes (ALEJO HWANG) Physical Exam Vital Signs Vital Signs - First Documented 12/06/21 08:49 Temp 36.5 Pulse 71 Resp 18 B/P (MAP) 155/96 (115) Pulse Ox 96 (ALINE DECKER MD) Vital Signs Capillary Refill : Less Than 3 Seconds (ALEJO HWANG) Height, Weight, BMI Height: 5'9.00" Weight: 354lbs. 0.0oz. 160.044600fl; 52.00 BMI Method:Stated General Appearance: No Apparent Distress, WD/WN Neck: Non Tender, Supple Respiratory: Normal Breath Sounds, No Accessory Muscle Use, No Respiratory Distress Cardiovascular: Regular Rate, Rhythm, No Murmur Gastrointestinal: Normal Bowel Sounds Back: Other (negative stright leg raise) Extremity: Normal Capillary Refill, Normal Range of Motion, No Calf Tenderness, Swelling (non-pitting), Other (right leg visually looks slightly larger than left. No erythema or site of damage to the skin can be noted on exam. She has tenderness to papation along the anterior portion of her right norton. Normal sensory exam. Right mid-calf measured 62cm in diameter, proximal calf measured 65 cm. Left mid-calf measured 62cm in diameter, proximal calf [id number]) Neurologic/Psychiatric: Alert, Oriented x3, No Motor/Sensory Deficits Reflexes: 2+ Ankle (R), 2+ Ankle (L) Skin: Normal Color, Warm/Dry; No Erythema, No Rash Lymphatic: No Adenopathy (ALEJO HWANG) Progress/Results/Core Measures Suspected Sepsis SIRS Temperature: Pulse: 71 Respiratory Rate: 18 Blood Pressure 155 /96 Mean: 115 (ALEJO HWANG) Results/Orders My Orders Orders - ALINE DECKER MD Gabapentin Capsule/Tablet (Neurontin Cap (12/06/21 11:00) (ALINE DECKER MD) Medications Given in ED Current Medications Medications Dose Ordered Sig/Minerva Route Start Time Stop Time Status Last Admin Dose Admin Gabapentin 300 mg ONCE ONCE PO 12/06/21 11:00 12/06/21 11:01 DC 12/06/21 11:11 300 MG (ALINE DCEKER MD) Vital Signs/I&O 5/22/22 5/22/22 08:49 11:22 Temp 36.5 Pulse 71 71 Resp 18 18 B/P (MAP) 155/96 (115) 129/84 Pulse Ox 96 96 (ALINE DECKER MD) Vital Signs/I&O Capillary Refill : Less Than 3 Seconds (ALEJO HWANG) Blood Pressure Mean: 115 Progress Note : Progress Note 10:41 Patients pain at this time is of unclear origin although suspicion for serious origin is low. Dorsal pedal pulses are present making vascular origin unlikely. Lack of trauma and irregularities upon exam makes x ray feel unnecessary at this time. The slight numbness and stabbing pain that comes and goes along with her obesity and history of insulin resistance raises suspicion for a neuropathic pain. See discharge note for more details. (ALEJO HWANG) Departure Impression Primary Impression: Pain in right norton Disposition: 01 HOME, SELF-CARE Condition: Stable Departure-Patient Inst. Decision time for Depature: 10:51 (ALINE DECKER MD) Referrals: [facility]/ (PCP) Primary Care Physician JAMAAL KELLEY DO (Family) Primary Care Physician Patient Instructions: Muscle and Bone Pain (DC), Peripheral Neuropathy Add. Discharge Instructions: The exact cause of your pain is uncertain at this time. If the gabapentin (Neurontin) he received in the emergency room was helpful, you may fill the prescription. If it was not helpful, you may cancel the prescription with the pharmacy. You may use a combination of Tylenol (acetaminophen) up to 1000 mg every 6 hours as needed and ibuprofen up to 600 mg every 6 hours as needed. Gabapentin may be used with both Tylenol and ibuprofen. Use gabapentin with caution as it may cause drowsiness. If gabapentin successfully alleviates the pain, please follow-up with your primary care provider for refill and for diabetes screening as neuropathy causing this type of pain may be related to diabetes. You may also try elevation and icing in 20-minute intervals. If a rash develops, shingles may be the cause of your pain. Call your primary care provider or the ER for further treatment instructions and medications if rash develops. If the pain does not go away in the next 2 to 3 days, please follow-up with your primary care provider. If you have worsening symptoms despite following these i nstructions, return to the emergency room. Also return to the emergency room if you develop escalating pain in your calf, heat or redness of the leg, progressive swelling, fevers, or any other escalating problem. All discharge instructions reviewed with patient and/or family. Voiced understanding. Scripts Gabapentin (Neurontin) 300 Mg Capsule 300 MG PO TID, #10 CAP Prov: ALINE DECKER MD 12/06/21 Medical Student Attestation and Attending Note: I have personally interviewed and examined this patient along with Alejo Hwang, MS 3. I have reviewed student documentation including history, physical, and assessments. I agree with the documentation except where otherwise noted. Pain pattern did not seem to fit any particular pathology. A neuropathic syndrome is within the realm of possibilities. Patient was given a dose of gabapentin to try as a potential measure to control symptoms. See discharge instructions for further discussion. Exam: General: Alert, oriented, no acute distress, well developed, obese HEENT: Normocephalic and atraumatic Extremities: Lower legs roughly equal in diameter and appearance. There is tenderness about the mid norton and soft tissues adjacent to the norton on either side. There is no skin injury or abnormality identified. There is some sensitivity to light touch. No tenderness, heat, erythema, or swelling of the calves. Neuropsych: Alert, oriented, no focal deficits Skin: Warm and dry without rashes (ALINE DECKER MD) Copy Copies To 1: JAMAAL KELLEY CARSON December 06, 2021 10:14 ALINE DECKER MD December 06, 2021 10:54
[2021-12-06] MEDS ORDERED: GABA300C PO (10:55)
[2021-12-06] MEDS ORDERED: GABAPENTIN 300 MG (NEURONTIN) CAP PO ONE (11:00)
[2021-12-06 11:22] VITALS: BP 129/84
== END 2021-12-06 11:14 | disposition home or self-care (01) ==
LOC: EDUNIT# 08:39 → ER 08:40
DX: M79.661 Pain in right lower leg (principal); M79.89 Other specified soft tissue disorders; E66.01 Morbid (severe) obesity due to excess calories; Z68.43 Body mass index [BMI] 50.0-59.9, adult

== ENCOUNTER 2021-12-11 15:43 | Emergency (ER) | payer MEDICAID ==
[~2021-12-11] VITALS: Ht 175 cm; Wt 164.0 kg
[~2021-12-11 15:43] MED LIST changes: +GABA300C PO
--- NOTE | 2021-12-11 16:05 | ED Lower Extremity ---
General Chief Complaint: Lower Extremity Stated Complaint: R LEG PAIN Source: patient Exam Limitations: no limitations History of Present Illness Date Seen by Provider: December 11, 2021 Time Seen by Provider: 16:03 Initial Comments Patient is a 46-year-old female who presents ED with right leg pain. Leg pain started last Tuesday. No injury. Described as a crampy pain with intermittent sharp pain. She states she is having difficulty bearing weight. Difficulty s leeping secondary to pain. Was seen here on Tuesday and was given gabapentin without much improvement. Took ibuprofen today without much improvement. Denies of any specific trauma, swelling, bruising, redness. Denies any rash. Pain appears to be worse with any type of movement. She went to her primary care physician on Tuesday had a outpatient ultrasound for next Tuesday. She cannot tolerate the pain anymore. Denies any fever, chills, chest pain, shortness of breath. She states she is not able to sleep and does not feel well secondary to the pain. Allergies and Home Medications Allergies Coded Allergies: codeine (Verified Allergy, Severe, Neck swelling, pt able to tolerate Lortab, 12/19/19) hydrochlorothiazide (Verified Allergy, Severe, NECK SWELLING, 01/02/18) dulaglutide (Verified Allergy, Unknown, 12/11/19) Patient Home Medication List Home Medication List Reviewed: Yes Amoxicillin/Potassium Clav (Augmentin 875-125 Tablet) 1 Each Tablet, 1 EACH PO BID Prescribed by: ALLEGRA VILLATORO on 04/12/20 2225 Cetirizine HCl (Cetirizine HCl) 10 Mg Tablet, 10 MG PO DAILY, (Reported) Entered as Reported by: BEST KAUFMAN on 12/11/19 1507 Diltiazem HCl (Cardizem Cd) 240 Mg Cap.er.24h, 240 MG PO DAILY, (Reported) Entered as Reported by: CARLEE BOWDEN on 06/14/16 1027 Doxycycline Hyclate (Doxycycline Hyclate) 100 Mg Tablet, 100 MG PO BID Prescribed by: ALINE BAH on 01/26/20 1904 Doxycycline Hyclate (Doxycycline Hyclate) 100 Mg Tablet, 100 MG PO BID Prescribed by: ALLEGRA VILLATORO on 04/14/20 1203 Famotidine (Pepcid) 40 Mg Tablet, 40 MG PO DAILY, (Reported) Entered as Reported by: MARLEY SALAS on 01/02/18 1312 Ferrous Sulfate (Ferrous Sulfate) 325 Mg Tablet, 325 MG PO DAILY, (Reported) Entered as Reported by: BEST KAUFMAN on 12/11/19 1507 Fluticasone Propionate (Flonase Allergy Relief) 9.9 Ml [place].susp, 1 SPRAY NS DAILY, (Reported) Entered as Reported by: MARLEY SALAS on 01/02/18 1312 Gabapentin (Neurontin) 300 Mg Capsule, 300 MG PO TID Prescribed by: ALINE BAH on 12/06/21 1055 Hydrocodone/Acetaminophen (Hydrocodone-Acetamin 7.5-325) 1 Each Tablet, 1 EACH PO Q4H Prescribed by: JUNIOR VENEGAS on 12/19/19 1251 Hydrocodone/Acetaminophen (Lorcet 5-325 mg Tablet) 1 Each Tablet, 1 EACH PO Q4- 6HR PRN for PAIN-MODERATE Prescribed by: ALLEGRA VILLATORO on 04/14/20 1051 Hydrocodone/Acetaminophen (Hydrocodone-Acetamin 5-325 mg) 5 Mg-325 Mg Tablet, 1 TAB PO Q4H PRN for PAIN-MODERATE (5-7) Prescribed by: ANDREA TORIBIO on 12/11/21 1657 Losartan Potassium (Losartan Potassium) 50 Mg Tablet, 50 MG PO DAILY, (Reported) Entered as Reported by: MATTHEW CALDERON on 09/13/17 1741 Metformin HCl (Metformin HCl) 500 Mg Tablet, 500 MG PO BID, (Reported) Entered as Reported by: NELI STARR on 12/04/16 1453 Naproxen (Naproxen) 500 Mg Tablet.dr, 500 MG PO BID Prescribed by: ANDREA TORIBIO on 12/11/21 1658 Promethazine HCl (Promethazine Tablet) 25 Mg Tablet, 25 MG PO Q6H PRN for NAUSEA/VOMITING Prescribed by: NICK HSIEH on 03/13/20 0133 Propranolol HCl (Propranolol HCl) 10 Mg Tablet, 10 MG PO BID, (Reported) Entered as Reported by: CARLEE BOWDEN on 06/14/16 1027 Spironolactone (Spironolactone) 25 Mg Tablet, 25 MG PO DAILY, (Reported) Entered as Reported by: CARLEE BOWDEN on 06/14/16 1027 Sulfamethoxazole/Trimethoprim (Bactrim Ds Tablet) 1 Each Tablet, 1 EACH PO BID Prescribed by: ANDREEA WASHINGTON on 01/20/20 0143 Tramadol HCl (Ultram) 50 Mg Tablet, 50 MG PO Q6H PRN for PAIN-BREAKTHROUGH Prescribed by: ALINE BAH on 01/26/20 1904 Review of Systems Constitutional: No chills, No diaphoresis EENTM: No blurred vision, No double vision Respiratory: No cough, No dyspnea on exertion Cardiovascular: No chest pain Gastrointestinal: No abdominal pain, No diarrhea, No nausea, No vomiting Musculoskeletal: No back pain; muscle pain Skin: No change in color, No change in hair/nails All Other Systems Reviewed Negative Unless Noted: Yes Past Njaeoqe-Pdcovl-Xsipfj Hx Immunizations Up To Date Tetanus Booster (TDap): More than 5yrs PED Vaccines UTD: No Seasonal Allergies Seasonal Allergies: Yes Past Medical History Surgeries: Yes ( X 3) Section, Gallbladder Respiratory: Yes Pneumonia Currently Using CPAP: No Currently Using BIPAP: No Cardiac: Yes (HEART MURMUR A CHILD) Heart Murmur, Hypertension Neurological: Yes Headaches /Migraines Reproductive Disorders: No Female Reproductive Disorders: Menstrual Problems Sexually Transmitted Disease: No HIV/AIDS: No Genitourinary: Yes UTI-Chronic Gastrointestinal: Yes Gastroesophageal Reflux Musculoskeletal: No Endocrine: Yes (MORBID OBESTIY, INSULIN RESISTANCE,) Diabetes, Non-Insulin dep HEENT: Yes Tonsilitis Loss of Vision: Bilateral Hearing Impairment: Denies Cancer: No Psychosocial: No Integumentary: Yes (CELLULITIS) Blood Disorders: Yes (ANEMIA) Adverse Reaction/Blood Tranf: No (N/A) Family Medical History Arthritis Asthma 19 FATHER (copd) 19 MOTHER (copd) Cardiovascular disease 19 FATHER (chf) Diabetes mellitus 19 FATHER Hypertension 19 FATHER 19 MOTHER G8 BROTHER G8 SISTER Heart Disease, Diabetes Physical Exam Vital Signs Vital Signs - First Documented 12/11/21 15:55 Temp 36.3 Pulse 81 Resp 18 B/P (MAP) 191/106 (134) Pulse Ox 97 O2 Delivery Room Air Capillary Refill : Height, Weight, BMI Height: 5'9.00" Weight: 354lbs. 0.0oz. 160.142377fs; 52.00 BMI Method:Stated General Appearance: WD/WN, no apparent distress HEENT: PERRL/EOMI, normal ENT inspection, TMs normal, pharynx normal Neck: non-tender, full range of motion, supple, normal inspection Cardiovascular: regular rate, rhythm, no edema, no gallop, no JVD Respiratory: chest non-tender, lungs clear, normal breath sounds, no respiratory distress, no accessory muscle use Gastrointestinal: normal bowel sounds, non tender, soft, no organomegaly, no pulsatile mass Back: normal inspection, no CVA tenderness, no vertebral tenderness Legs: right leg pain, right leg soft tissue tenderness Knees: bilateral knee non-tender, bilateral knee normal inspection, bilateral knee normal range of motion Ankles: bilateral ankle non-tender, bilateral ankle normal inspection, bilateral ankle normal range of motion Feet: bilateral foot non-tender, bilateral foot normal inspection, bilateral foot normal range of motion Neurologic/Tendon: normal sensation, normal motor functions, normal tendon functions 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 (12/11/21 16:27) Vital Signs/I&O 12/11/21 15:55 Temp 36.3 Pulse 81 Resp 18 B/P (MAP) 191/106 (134) Pulse Ox 97 O2 Delivery Room Air Departure Communication (PCP) X-ray was negative for fracture or mass. Ultrasound was negative for DVT. No specific injury. No evidence of cellulitis. Neurovascular intact with good pulses distally. Does not appear to be peripheral artery disease. Currently on gabapentin. Patient Was given dose of pain medication here. Possible norton splints. Discussed weight changes which may help with pain. Discharged with a few days worth of pain medication. Would likely benefit with an anti- inflammatory. Recommend rest. Orthopedic outpatient follow-up for further evaluation. Impression Primary Impression: Leg pain Disposition: 01 HOME, SELF-CARE Condition: Stable Departure-Patient Inst. Decision time for Depature: 16:56 Referrals: [facility] (PCP) Primary Care Physician JAMAAL KELLEY DO (Family) Primary Care Physician GRAHAM ALVARADO MD Patient Instructions: Leg Muscle Strain ED Scripts Naproxen (Naproxen) 500 Mg Tablet.dr 500 MG PO BID for 7 Days, #14 TAB Prov: BROOKE STODDARD 12/11/21 Hydrocodone/Acetaminophen (Hydrocodone-Acetamin 5-325 mg) 5 Mg-325 Mg Tablet 1 TAB PO Q4H PRN for PAIN-MODERATE (5-7), #6 TAB Prov: BROOKE STODDARD 12/11/21 BROOKE STODDARD December 11, 2021 16:05
[2021-12-11] MEDS ORDERED: HYDROcodone/APAP 7.5 MG/325 MG (LORTAB, LORCET PLUS) TABLET PO STA (16:27)
--- NOTE | 2021-12-11 16:31 | Diagnostic Imaging Report ---
PROCEDURE: US right lower extremity venous. TECHNIQUE: Multiple real-time grayscale images were obtained over the right lower extremity in various projections. Additional spectral analysis and color Doppler duplex images were also obtained. INDICATION: Indication: Right leg pain EXAMINATION: Grayscale and color Doppler evaluation of the deep veins of the right lower extremity were performed with waveform analysis. FINDINGS: Continuous venous flow is present. No intraluminal filling defect is identified. There is normal compressibility and response to augmentation. No abnormal perivascular fluid collection is identified. IMPRESSION: No ultrasound evidence of right lower extremity deep venous thrombosis. Dictated by: Dictated on workstation # [id number]
--- NOTE | 2021-12-11 16:40 | Diagnostic Imaging Report ---
INDICATION: mid norton pain COMPARISON: None. FINDINGS: Multiple radiographic views of the right tibia and fibula were obtained and show no fractures, dislocations, or other acute bony abnormalities. Joint spaces are well maintained throughout. The soft tissues appear unremarkable. No radiopaque foreign bodies are identified. IMPRESSION: Unremarkable radiographic exam of the right tibia and fibula. Dictated by: Dictated on workstation # [id number]
[2021-12-11] MEDS ORDERED: ACHD5005 PO (16:57)
[2021-12-11] MEDS ORDERED: NAPR500T8 PO (16:58)
[2021-12-11 17:18] VITALS: BP 186/105
== END 2021-12-11 17:19 | disposition home or self-care (01) ==
LOC: EDUNIT# 15:43 → ER 15:44
DX: M79.604 Pain in right leg (principal); E66.01 Morbid (severe) obesity due to excess calories; Z79.899 Other long term (current) drug therapy
CPT/HCPCS: 73590

== ENCOUNTER 2022-04-09 05:28 | Outpatient (CLI) | payer MEDICAID ==
[~2022-04-09] VITALS: Ht 175 cm; Wt 170.0 kg
[~2022-04-09 05:28] MED LIST changes: +NAPR500T8 PO
[2022-04-09] MEDS ORDERED: HYDR-3781 PO (10:07)
[2022-04-09] MEDS ORDERED: RT-ALBUINH IH (10:07)
[2022-04-09] MEDS ORDERED: EPINEPHRINE PEN (10:07)
[2022-04-09] MEDS ORDERED: BUTA1CAP3 PO (10:07)
== END 2022-04-09 10:24 | disposition home or self-care (01) ==
LOC: PREOP 05:28
PROVIDERS: ATTEND Orthopaedic Surgery
DX: Z01.818 Encounter for other preprocedural examination (principal); S83.207A Unspecified tear of unspecified meniscus, current injury, left knee, initial encounter; X58.XXXA Exposure to other specified factors, initial encounter

== ENCOUNTER 2022-04-14 07:57 | Day surgery (SDC) | payer MEDICAID ==
--- NOTE | 2022-04-07 16:55 | HISTORY AND PHYSICAL ---
DATE OF SERVICE: DATE OF ADMISSION: 04/14/2022. This will be for outpatient surgery on 04/14/2022 for left knee arthroscopy. HISTORY OF PRESENT ILLNESS: The patient is a 47-year-old female who has previously undergone left knee arthroscopy with complaints of recurrent left knee pain. She reports pain on the medial aspect of her knee. She reports she has undergone multiple injections and the injections no longer help. She reports the pain is dull and aching on the medial aspect. It is worse with weightbearing. She does report occasional popping and catching. Due to functional impairment and failure to improve with conservative measures, the patient elected to proceed with surgical intervention. Radiographs reveal fairly advanced medial and patellofemoral arthrosis. The patient is not a candidate for total knee arthroplasty currently. She understands an arthroscopy can help with her mechanical symptoms, but will not cure her arthrosis. REVIEW OF SYSTEMS: No chest pain, no shortness of breath, no dysuria. PAST MEDICAL HISTORY: Allergic rhinitis, anemia, asthma, diabetes, tension headaches, hypertension, irritable bowel syndrome, and osteoarthritis. PAST SURGICAL HISTORY: , cholecystectomy, left knee arthroscopy, tonsillectomy, and right long finger A1 teo release. FAMILY HISTORY: Significant for hypertension, ischemic heart disease, and diabetes. PRIMARY CARE PROVIDER: [facility]. MEDICATIONS: Albuterol, diltiazem, Flonase, hydroxyzine, metformin, Pepcid, ProAir, pantoprazole, propranolol, spironolactone, losartan, and iron. ALLERGIES: VANCOMYCIN, CODEINE, HYDROCHLOROTHIAZIDE, CHLORTHALIDONE and ONIONS. SOCIAL HISTORY: The patient denies alcohol and tobacco use. PHYSICAL EXAMINATION: GENERAL: The patient is well-developed, well-nourished, in no acute distress. HEENT: Normocephalic, atraumatic. Pupils are equal, round and reactive to light. Oropharynx is clear. NECK: Supple and no lymphadenopathy. LUNGS: Clear to auscultation bilaterally. HEART: Regular rate and rhythm. ABDOMEN: Soft, nontender, and nondistended. EXTREMITIES: The left knee demonstrates moderate effusion. She is tender along the medial joint line. She has pain medially with Ken's. She has patellofemoral crepitus and pain with patellar loading. Range of motion is 0/2/125. 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 PLAN: Left knee arthroscopy with chondroplasty and partial meniscectomy. The risks, benefits, options, ramifications, and recovery have been discussed at length with the patient. She understands and wishes to proceed. Job ID: [id number] DocumentID: [id number] Dictated Date: 03/29/2022 12:29:21 Grain Elevator Operator Date: 03/29/2022 12:59:08 Dictated By: BAUDILIO STALLWORTH MD
[2022-04-14] VITALS (14 sets, daily range): BP systolic 101–156; BP diastolic 69–98
[~2022-04-14] VITALS: Ht 175 cm; Wt 170.0 kg
[~2022-04-14 07:57] MED LIST changes: +BUTA1CAP3 PO; +EPINEPHRINE PEN; +HYDR-3781 PO; +HYDROcodone/APAP 7.5 MG/325 MG (LORTAB, LORCET PLUS) TABLET PO PRN; +RT-ALBUINH IH
[2022-04-14] MEDS ORDERED: ceFAZolin INJECTION 1,000 MG VIAL IV ONE (09:30)
[2022-04-14] MEDS ORDERED: LACTATED RINGERS 1,000 ML IV PRN (09:30)
--- NOTE | 2022-04-14 09:39 | Progress Note-Pre Operative ---
Pre-Operative Progress Note Date of Available H&P: Apr 07, 2022 Date H&P Reviewed: Apr 14, 2022 Time H&P Reviewed: 09:38 Changes from last HP none Pre-Operative Diagnosis: left knee medial meniscus tear and chondromalacia BAUDILIO STALLWORTH MD Apr 14, 2022 09:39
--- NOTE | 2022-04-14 09:40 | Progress Note-Post Operative ---
Post-Operative Progess Note Surgeon (s)/Laboratory Tester (s) Surgeon BAUDILIO STALLWORTH MD Laboratory Tester: Sylvester Hartman Pre-Operative Diagnosis left knee medial meniscus tear and chondromalacia Post-Operative Diagnosis left knee medial meniscus tear and chondromalacia Procedure & Operative Findings Date of Procedure 04/14/22 Procedure Performed/Findings left knee arthroscopic partial medial meniscectomy and chondroplasty of Anesthesia Type GETA Estimated Blood Loss Estimated blood loss (mL): minimal Specimens/Packing Specimens Removed none Packing: none BAUDILIO STALLWORTH MD Apr 14, 2022 09:40
[2022-04-14] MEDS ORDERED: SEVOFLURANE (ULTANE) 15 ML INHAL SOLN ONE (10:04)
[2022-04-14] MEDS ORDERED: ONDANSETRON 4 MG/2 ML (SDV) Z0FRAN ONE (10:04)
[2022-04-14] MEDS ORDERED: proPOfol 200 MG/20 ML (DIPRIVAN) VIAL IV ONE (10:04)
[2022-04-14] MEDS ORDERED: LIDOCAINE PF 2% 5 ML (XYLOCAINE) VIAL ONE (10:04)
[2022-04-14] MEDS ORDERED: fentaNYL INJ 100 MCG/2 ML AMP ONE (10:04)
[2022-04-14] MEDS ORDERED: MIDAZOLAM 2 MG/2 ML (VERSED) VIAL ONE (10:04)
[2022-04-14] MEDS ORDERED: BUPIVACAINE 0.5% 30 ML (SENSORCAINE) VIAL ONE (10:39)
[2022-04-14] MEDS ORDERED: morphine PF (DURAMORPH) 10 MG/10 ML AMP ONE (10:39)
[2022-04-14] MEDS ORDERED: ONDANSETRON 4 MG/2 ML (SDV) Z0FRAN IVP PRN (11:00)
[2022-04-14] MEDS ORDERED: fentaNYL INJ 100 MCG/2 ML AMP IVP ONE (11:00)
[2022-04-14] MEDS ORDERED: morphine INJ 10 MG/ML 1ML (SYR OR VIAL) IVP ONE (11:00)
[2022-04-14] MEDS ORDERED: MEPERIDINE (DEMEROL) INJ 50 MG/ML IVP ONE (11:00)
[2022-04-14] MEDS ORDERED: HYDROmorphone 2 MG/ML VIAL (DILAUDID) IV ONE (11:00)
--- NOTE | 2022-04-14 11:01 | Anesthesia-General Post-Op ---
General Patient Condition Mental Status/LOC: Same as Preop Cardiovascular: Satisfactory Nausea/Vomiting: Absent Respiratory: Satisfactory Pain: Controlled Complications: Absent Post Op Complications Complications None Follow Up Care/Instructions Patient Instructions None needed. Anesthesia/Patient Condition Patient Condition Patient is doing well, no complaints, stable vital signs, no apparent adverse anesthesia problems. No complications reported per nursing. PRIYANK WILLINGHAM CRNA Apr 14, 2022 11:01
[2022-04-14] MEDS ORDERED: morphine INJ 10 MG/ML 1ML (SYR OR VIAL) ONE (11:04)
--- NOTE | 2022-04-14 11:04 | Progress Note-Post Operative ---
Post-Operative Progess Note Surgeon (s)/Account Receivable Associate (s) Surgeon BAUDILIO STALLWORTH MD Account Receivable Associate: Sylvester Hartman Pre-Operative Diagnosis left knee medial meniscus tear and chondromalacia Post-Operative Diagnosis left knee medial meniscus tear and chondromalacia of the medial femoral condyle, lateral tibial plateau, patella and trochlea Procedure & Operative Findings Date of Procedure 04/14/22 Procedure Performed/Findings left knee arthroscopic partial medial meniscectomy and chondroplasty of the medial femoral condyle, lateral tibial plateau, patella and trochlea Anesthesia Type GETA Estimated Blood Loss Estimated blood loss (mL): minimal Specimens/Packing Specimens Removed none Packing: none BAUDILIO STALLWORTH MD Apr 14, 2022 11:04
[2022-04-14] MEDS ORDERED: ONDANSETRON 4 MG/2 ML (SDV) Z0FRAN IVP ONE (13:15)
--- NOTE | 2022-04-14 13:55 | Physical Therapy Ortho Eval ---
PT Orthopedic Evaluation Type of Surgery Knee Scope WBAT LLE Prior Level of Function Current Living Status: Spouse Locomotion (Upon Admit): Independent Subjective Subjective Patient in bed pre tx, agrees to PT, has 6/10 pain in left knee. Entry Into Home: Ramp Motor Control Motor Control: Motor Control WNL ROM left knee flexion 50 degrees, extension +5 degrees Transfer SCALE: Activities may be completed with or without assistive devices. 6-Awgxgdovgc-swttovt completes the activity by him/herself with no assistance from a helper. 5-Set-up or Clean-up Assistance-helper sets up or cleans up; patient completes activity. [place] assists only prior to or following the activity. 4-Supervision or Touching Assistance-helper provides verbal cues and/or touching/steadying and/or contact guard assistance as patient completes activity. Assistance may be provided throughout the activity or intermittently. 3-Partial/Moderate Assistance-helper does LESS THAN HALF the effort. [place] lifts, holds or supports trunk or limbs, but provides less than half the effort. 2-Substantial/Maximal Assistance-helper does MORE THAN HALF the effort. [place] lifts or holds trunk or limbs and provides more than half the effort. 3-Swgwgnroy-zurydd does ALL the effort. Patient does none of the effort to complete the activity. Or, the assistance of 2 or more helpers is required for the patient to complete the activity. If activity was not attempted, code reason: 7-Patient Refused. 9-Not Applicable-not attempted and the patient did not perform the activity before the current illness, exacerbation or injury. 10-Not Attempted due to Environmental Limitations-(lack of equipment, weather restraints, etc.). 88-Not Attempted due to Medical Conditions or Safety Concerns. Transfers (B, C, W/C) (QC): 4 Gait Summary/Comments Patient ambulated 10' with a rolling walker with CGA, gait was antalgic, couldn't ambulate further due to pain, was not able to do a step but patient has a ramp at home Treatment Rendered Treatment: Therapeutic Exercises, Gait Train Exercise Instruction: Quad Sets, Heel Slides, Ankle Pumps Assessment/Goals Goal Time Frame: 1 Visit Understands HEP: Yes Safe Ambulation: Yes Plan Treatment Plan: Discharge PT/Family Agrees to Plan: Yes Time Time In: 1320 Time Out: 1330 Total Billed Treatment Time: 10 Billed Treatment Time 1 visit EVL 10' KRTEK,PRITI PT Apr 14, 2022 13:55
--- NOTE | 2022-04-14 18:42 | OPERATIVE REPORT ---
DATE OF SERVICE: 04/14/2022 PREOPERATIVE DIAGNOSES: 1. Left knee medial meniscus tear. 2. Left knee chondromalacia of the medial femoral condyle. 3. Left knee chondromalacia of patella. 4. Left knee chondromalacia of the trochlea. POSTOPERATIVE DIAGNOSES: 1. Left knee medial meniscus tear. 2. Left knee chondromalacia of the medial femoral condyle. 3. Left knee chondromalacia of the lateral tibial plateau. 4. Left knee chondromalacia of patella. 5. Left knee chondromalacia of the trochlea. PROCEDURES: 1. Left knee arthroscopic partial medial meniscectomy. 2. Left knee arthroscopic chondroplasty of the medial femoral condyle. 3. Left knee arthroscopic chondroplasty of the lateral tibial plateau. 4. Left knee arthroscopic chondroplasty of the patella. 5. Left knee arthroscopic chondroplasty of trochlea. SURGEON: Maurilio Stallworth MD MANAGER OF ALLIED HEALTH SERVICES: Sylvester Hartman, who assisted throughout the procedure and closed the incisions. ANESTHESIA: General endotracheal by Floyd Milligan CRNA. TOURNIQUET TIME: Not applicable. ESTIMATED BLOOD LOSS: Minimal. DRAINS: None. COMPLICATIONS: None. POSTOPERATIVE PLAN: Routine arthroscopy protocol. The patient was transferred to the recovery room awake and stable condition. STATEMENT OF MEDICAL NECESSITY: The patient is a 47-year-old female who had previously undergone left knee arthroscopy and had been doing well until she began to experience medial knee pain after twisting injury. The patient's radiographs revealed severe medial and patellofemoral arthrosis, but due to her age and her size, the patient is not a candidate for total knee arthroplasty. The patient was counseled that weight loss would help with her knee, but due to mechanical symptoms and failure to improve with conservative measures, the patient elected to proceed with surgical intervention. Examination under anesthesia revealed range of motion 0/0/135 with negative Lyric, negative anterior and posterior drawer. No varus or valgus laxity and negative pivot shift. ARTHROSCOPIC FINDINGS: The patella demonstrated diffuse grade II chondral changes inferiorly with unstable chondral flaps in a 10 x 10 area. Trochlea demonstrated grade III chondral flap superiorly in a 10 x 10 area. The medial and lateral gutters were clear. The ACL and PCL were intact. Medial compartment demonstrated a tear of the posterior horn of the medial meniscus involving approximately one-third of the posterior horn. In addition, there was grade IV chondral loss over the most medial aspect of the tibial plateau in a 10 x 10 area and grade III chondral flaps in the central portion of femoral condyle in a 10 x 10 area. The lateral compartment demonstrated grade III chondral flaps of the central portion of the tibial plateau in a 15 x 15 area. PROCEDURE IN DETAIL: After risks and benefits of procedure were discussed and questions were answered, an informed consent was signed and placed on chart, the operative site was confirmed in the preoperative holding area initialed by the surgeon. The patient was then transferred to the operating room and after adequate levels of general endotracheal anesthetic were obtained, a timeout was called, confirming the operative site. Examination under anesthesia was performed with above findings noted. The left lower extremity was then prepped and draped in the usual sterile fashion. The knee joint was injected with 60 mL of fluid and a standard inferolateral portal was placed for the arthroscope under direct visualization, inferior medial portal was created. The menisci and cruciates carefully probed with the above findings noted. The unstable chondral flaps in the patella and trochlea were debrided with shaver back to a stable edge. Scope was redirected into the lateral compartment where the unstable chondral flaps on the lateral tibial plateau were debrided with a shaver back to a stable edge. Scope was redirected into the medial compartment and unstable chondral flaps in the medial femoral condyle were debrided with shaver back to a stable edge and the posterior horn of the medial meniscus was debrided with a shaver back to a stable edge. Knee was copiously irrigated. Portal sites were closed with 4-0 nylon in septic fashion. Knee was injected with Duramorph. Port sites were infiltrated with plain Marcaine and soft dressing was applied and the patient was transferred to the recovery room awake and in stable condition. Job ID: [id number] DocumentID: [id number] Dictated Date: 04/14/2022 11:03:07 Rubber Liner Date: 04/14/2022 18:41:16 Dictated By: MAURILIO STALLWORTH MD
== END 2022-04-14 13:45 ==
LOC: SDC 07:57
PROVIDERS: ATTEND Orthopaedic Surgery
DX: S83.242A Other tear of medial meniscus, current injury, left knee, initial encounter (principal); M22.42 Chondromalacia patellae, left knee; Z79.899 Other long term (current) drug therapy; E66.01 Morbid (severe) obesity due to excess calories; Z68.43 Body mass index [BMI] 50.0-59.9, adult; E11.9 Type 2 diabetes mellitus without complications; Z87.891 Personal history of nicotine dependence; Z79.84 Long term (current) use of oral hypoglycemic drugs
CPT/HCPCS: 82947; 84703; 87081

== ENCOUNTER 2022-09-13 09:18 | Outpatient (RCR) | payer MEDICAID ==
[~2022-09-13 09:18] MED LIST changes: +ALBU8.5H6 IH; -HYDROcodone/APAP 7.5 MG/325 MG (LORTAB, LORCET PLUS) TABLET PO PRN; -RT-ALBUINH IH
[2022-09-13 09:32] VITALS: BP 123/80
[2022-09-13] MEDS ORDERED: diphenhydrAMINE 25 MG TAB (BENADRYL) PO ONE ×2 (09:37→10:00)
[2022-09-13] MEDS ORDERED: ACETAMINOPHEN 325 MG TABLET ONE (09:37)
[2022-09-13] MEDS ORDERED: ACETAMINOPHEN 325 MG TABLET PO ONE (10:00)
[2022-09-13] MEDS ORDERED: NS IV ONE ×2 (10:15)
[2022-09-13] MEDS ORDERED: IRON SUCROSE IV ONE ×2 (10:15)
== END 2022-09-14 | disposition home or self-care (01) ==
LOC: SDC 09:18
PROVIDERS: ATTEND Internal Medicine Hematology & Oncology
DX: D50.9 Iron deficiency anemia, unspecified (principal)
CPT/HCPCS: 96365; 96366

== ENCOUNTER 2022-09-27 09:47 | Outpatient (RCR) | payer MEDICAID ==
[2022-09-20 11:32] VITALS: BP 137/85
[~2022-09-27 09:47] MED LIST changes: +ACETAMINOPHEN 325 MG TABLET ONE; +ACETAMINOPHEN 325 MG TABLET PO ONE; +IRON SUCROSE IV SCH; +NS IV SCH; +diphenhydrAMINE 25 MG TAB (BENADRYL) PO ONE
[2022-09-27] MEDS ORDERED: diphenhydrAMINE 25 MG TAB (BENADRYL) PO ONE (10:00)
[2022-09-27] MEDS ORDERED: IRON SUCROSE IV SCH ×2 (10:00)
[2022-09-27] MEDS ORDERED: ACETAMINOPHEN 325 MG TABLET ONE (10:00)
[2022-09-27] MEDS ORDERED: NS IV SCH ×2 (10:00)
[2022-09-27 10:13] VITALS: BP 113/86
== END 2022-10-15 | disposition home or self-care (01) ==
LOC: SDC 09:47
PROVIDERS: ATTEND Internal Medicine Hematology & Oncology
DX: D50.9 Iron deficiency anemia, unspecified (principal)
CPT/HCPCS: 96365

== ENCOUNTER 2022-10-16 08:11 | Emergency (ER) | payer MEDICAID ==
[~2022-10-16] VITALS: Ht 175.3 cm; Wt 165.1 kg
[~2022-10-16 08:11] MED LIST changes: -ACETAMINOPHEN 325 MG TABLET ONE; -ACETAMINOPHEN 325 MG TABLET PO ONE; -IRON SUCROSE IV SCH; -NS IV SCH; -diphenhydrAMINE 25 MG TAB (BENADRYL) PO ONE
--- NOTE | 2022-10-16 11:12 | ED Lower Extremity ---
General Chief Complaint: Lower Extremity Stated Complaint: BILAT LEG SWELLING Nursing Triage Note: PT AMB TO [facility] 6 WITH COMPLAINT OF INCREASED SWELLING AND PAIN IN BILATERAL LOWER EXTREMITIES. STATES SYMPTOMS STARTED 3 DAYS AGO. TAKES LASIX DAILY. STATES SHE HAS HAD HER FEET DOWN ALOT OVER THE LAST WEEK DUE TO FAMILY BEING IN THE HOSPITAL. Source: patient Exam Limitations: no limitations (CHIO ZAMBRANO APRN) History of Present Illness Date Seen by Provider: Oct 16, 2022 Time Seen by Provider: 10:56 Initial Comments 47-year-old female presents to the ED with complaints of bilateral lower leg edema and shooting pain for the past 3 days. Reports the pain became worse last night. States that her right leg hurts worse than her left leg. Mostly complains of pain in her right calf. She also is complaining of dry mouth. She states that she started having left-sided chest pain right before she arrived. Denies radiation of this pain. Reports some nausea with pain. Denies sweating or vomiting. Reports some shortness of air with walking, states this is mild. She states that she has been sitting in the chair a lot this week due to having a family member in the hospital, and thinks that is why her legs are swollen. She states that she has been worked up for DVT in the past, but has never had a DVT. She denies abdominal pain and diarrhea. She currently takes Lasix for edema. (CHIO ZAMBRANO APRN) Allergies and Home Medications Allergies Coded Allergies: chlorthalidone (Unverified Allergy, Severe, HIVES, 04/09/22) codeine (Verified Allergy, Severe, Neck swelling, pt able to tolerate Lortab, 12/19/19) hydrochlorothiazide (Verified Allergy, Severe, NECK SWELLING, 01/02/18) onion (Unverified Allergy, Severe, Hives, 04/09/22) vancomycin (Unverified Allergy, Severe, Angioedema, 04/09/22) dulaglutide (Verified Allergy, Unknown, 12/11/19) gelatin (Verified Allergy, Unknown, 10/16/22) Patient Home Medication List Home Medication List Reviewed: Yes (CHIO ZAMBRANO APRN) Albuterol Sulfate (Ventolin Hfa) 1 Puff Puff, 2 PUFF IH Q4H PRN for PRN, (Reported) Entered as Reported by: AMY JOVEL on 04/09/22 1007 Butalbital/Aspirin/Caffeine (Zatiumucqg-OVA-Mftnocpi Cap) 50 Mg-325 Mg-40 Mg Capsule, 1 EACH PO UD, (Reported) Entered as Reported by: AMY JOVEL on 04/09/22 1007 Cetirizine HCl (Cetirizine HCl) 10 Mg Tablet, 10 MG PO DAILY, (Reported) Entered as Reported by: BEST KAUFMAN on 12/11/19 1507 Diltiazem HCl (Cardizem Cd) 240 Mg Cap.er.24h, 240 MG PO DAILY, (Reported) Entered as Reported by: CARLEE BOWDEN on 06/14/16 1027 Famotidine (Pepcid) 40 Mg Tablet, 40 MG PO DAILY, (Reported) Entered as Reported by: MARLEY SALAS on 01/02/18 1312 Ferrous Sulfate (Ferrous Sulfate) 325 Mg Tablet, 325 MG PO DAILY, (Reported) Entered as Reported by: BEST KAUFMAN on 12/11/19 1507 Fluticasone Propionate (Flonase Allergy Relief) 9.9 Ml [place].susp, 1 SPRAY NS DAILY, (Reported) Entered as Reported by: MARLEY SALAS on 01/02/18 1312 Hydrocodone/Acetaminophen (Hydrocodone-Acetamin 7.5-325) 1 Each Tablet, 1 EACH PO Q4H Prescribed by: JUNIOR VENEGAS on 12/19/19 1251 Hydroxyzine Pamoate (Hydroxyzine Pamoate) 25 Mg Capsule, 25 MG PO PRN, (Reported) Entered as Reported by: AMY JOVEL on 04/09/22 1007 Losartan Potassium (Losartan Potassium) 50 Mg Tablet, 50 MG PO DAILY, (Reported) Entered as Reported by: MATTHEW CALDERON on 09/13/17 1741 Metformin HCl (Metformin HCl) 500 Mg Tablet, 500 MG PO BID, (Reported) Entered as Reported by: NELI STARR on 12/04/16 1453 Propranolol HCl (Propranolol HCl) 10 Mg Tablet, 10 MG PO BID, (Reported) Entered as Reported by: CARLEE BOWDEN on 06/14/16 1027 Spironolactone (Spironolactone) 25 Mg Tablet, 25 MG PO DAILY, (Reported) Entered as Reported by: CARLEE BOWDEN on 06/14/16 1027 [Epinephrine Pen] , UD PRN for PRN, (Reported) Entered as Reported by: AMY JOVEL on 04/09/22 1007 Review of Systems Constitutional: see HPI (CHIO ZAMBRANO APRN) Past Btnnqnh-Xrypmz-Jgmktk Hx Patient Social History Tobacco Use?: No Use of E-Cig and/or Vaping dev: No Substance use?: No Alcohol Use?: No Pt feels they are or have been: No (CHIO ZAMBRANO APRN) Immunizations Up To Date Tetanus Booster (TDap): More than 5yrs PED Vaccines UTD: No First/Initial COVID19 Vaccinat: N/A Second COVID19 Vaccination Elvin: N/A Third COVID19 Vaccination Date: N/A (CHIO ZAMBRANO APRN) Seasonal Allergies Seasonal Allergies: Yes (CHIO ZAMBRANO APRN) Past Medical History Surgery/Hospitalization HX: HTN Surgeries: Yes ( X 3, HAND SURGERY, KNEE SCOPE) Adenoidectomy, Section, Gallbladder, Orthopedic, Tonsillectomy Respiratory: Yes Pneumonia Currently Using CPAP: No Currently Using BIPAP: No Cardiac: Yes (HEART MURMUR A CHILD) Heart Murmur, Hypertension Neurological: Yes Headaches /Migraines Reproductive Disorders: No Female Reproductive Disorders: Menstrual Problems Sexually Transmitted Disease: No HIV/AIDS: No Genitourinary: Yes UTI-Chronic Gastrointestinal: Yes Gastroesophageal Reflux Musculoskeletal: No Endocrine: Yes (MORBID OBESTIY, INSULIN RESISTANCE) Diabetes, Non-Insulin dep HEENT: Yes Tonsilitis Loss of Vision: Bilateral Hearing Impairment: Denies Cancer: No Psychosocial: No Integumentary: Yes (CELLULITIS) Blood Disorders: Yes (ANEMIA) Adverse Reaction/Blood Tranf: No (N/A) (CHIO ZAMBRANO APRN) Family Medical History Arthritis Asthma 19 FATHER (copd) 19 MOTHER (copd) Cardiovascular disease 19 FATHER (chf) Diabetes mellitus 19 FATHER Hypertension 19 FATHER 19 MOTHER G8 BROTHER G8 SISTER Heart Disease, Diabetes (CHIO ZAMBRANO APRN) Physical Exam Vital Signs Vital Signs - First Documented 10/16/22 09:06 Temp 36.4 Pulse 97 Resp 16 B/P (MAP) 151/95 (113) Pulse Ox 97 O2 Delivery Room Air (ALINE DECKER MD) Vital Signs Capillary Refill : Less Than 3 Seconds (CHIO ZAMBRANO APRN) Height, Weight, BMI Height: 5'9.00" Weight: 354lbs. 0.0oz. [id number]; 53.00 BMI Method:Stated General Appearance: WD/WN, no apparent distress Neck: supple, normal inspection Cardiovascular: regular rate, rhythm, no gallop, no JVD, no murmur, other (Enlarged lower legs, does not appear to be edematous) Respiratory: chest non-tender, lungs clear, normal breath sounds, no resp iratory distress, no accessory muscle use Legs: left leg non-tender; right leg soft tissue tenderness; bilateral leg swelling (Enlarged legs, does not appear to be edematous) Neurologic/Psychiatric: alert, normal mood/affect Skin: normal color, warm/dry (CHIO ZAMBRANO APRN) Progress/Results/Core Measures Results/Orders Lab Results Laboratory Tests Test 10/16/22 11:35 Range/Units White Blood Count 5.6 4.3-11.0 10^3/uL Red Blood Count 4.52 3.80-5.11 10^6/uL Hemoglobin 12.2 11.5-16.0 g/dL Hematocrit 38 35-52 % Mean Corpuscular Volume 84 80-99 fL Mean Corpuscular Hemoglobin 27 25-34 pg Mean Corpuscular Hemoglobin Concent 32 32-36 g/dL Red Cell Distribution Width 15.9 H 10.0-14.5 % Platelet Count 242 130-400 10^3/uL Mean Platelet Volume 9.2 9.0-12.2 fL Immature Granulocyte % (Auto) 0 % Neutrophils (%) (Auto) 57 42-75 % Lymphocytes (%) (Auto) 30 12-44 % Monocytes (%) (Auto) 9 0-12 % Eosinophils (%) (Auto) 3 0-10 % Basophils (%) (Auto) 0 0-10 % Neutrophils # (Auto) 3.2 1.8-7.8 10^3/uL Lymphocytes # (Auto) 1.7 1.0-4.0 10^3/uL Monocytes # (Auto) 0.5 0.0-1.0 10^3/uL Eosinophils # (Auto) 0.2 0.0-0.3 10^3/uL Basophils # (Auto) 0.0 0.0-0.1 10^3/uL Immature Granulocyte # (Auto) 0.0 0.0-0.1 10^3/uL Prothrombin Time 14.1 12.2-14.7 SEC INR Comment 1.0 0.8-1.4 Activated Partial Thromboplast Time 36 H 24-35 SEC D-Dimer < 0.27 0.00-0.49 UG/ML Sodium Level 139 135-145 MMOL/L Potassium Level 4.3 3.6-5.0 MMOL/L Chloride Level 106 98-107 MMOL/L Carbon Dioxide Level 24 21-32 MMOL/L Anion Gap 9 5-14 MMOL/L Blood Urea Nitrogen 9 7-18 MG/DL Creatinine 0.76 0.60-1.30 MG/DL Estimat Glomerular Filtration Rate 98 BUN/Creatinine Ratio 12 Glucose Level 98 70-105 MG/DL Calcium Level 9.3 8.5-10.1 MG/DL Corrected Calcium 9.3 8.5-10.1 MG/DL Magnesium Level 2.0 1.6-2.4 MG/DL Total Bilirubin 0.5 0.1-1.0 MG/DL Aspartate Amino Transf (AST/SGOT) 18 5-34 U/L Alanine Aminotransferase (ALT/SGPT) 22 0-55 U/L Alkaline Phosphatase 44 40-136 U/L Troponin I < 0.028 <0.028 NG/ML B-Type Natriuretic Peptide < 10.0 <100.0 PG/ML Total Protein 6.9 6.4-8.2 GM/DL Albumin 4.0 3.2-4.5 GM/DL (ALINE DECKER MD) Vital Signs/I&O 10/16/22 10/16/22 09:06 13:08 Temp 36.4 Pulse 97 81 Resp 16 16 B/P (MAP) 151/95 (113) 136/86 Pulse Ox 97 98 O2 Delivery Room Air Room Air (ALINE DECKER MD) Blood Pressure Mean: 113 Progress Progress Note : Time: 11:11 Progress Note Patient seen and evaluated, resting comfortably bed, no acute distress. Based on exam and symptoms, differential diagnosis includes KS, PE, DVT. Work-up initiated including CBC, CMP, troponin, BNP, D-Dimer, magnesium, coags, chest x- ray, EKG. 1224 labs reviewed. CBC grossly normal, CMP grossly normal, troponin negative, BNP negative, coags normal, D-dimer negative. Labs were drawn over 3 hours after arrival. Will not repeat troponin due to negative 3-hour troponin. Wells score for DVT is 2, due to negative D-dimer, I do not believe she has a DVT. Wells score for PE is 0, due to negative D-dimer, I do not believe she has a PE. Considered CT angio, but deferred due to this. Chest x-ray shows stable enlarged heart without overt failure. Results discussed with patient. Patient instructed to follow-up with primary care provider. Instructed to elevate legs above level of heart, to stay away from salt, and to obtain compression stockings. Return precautions provided. (CHIO ZAMBRNAO APRN) Initial ECG Impression Date: Oct 16, 2022 Initial ECG Impression Time: 11:32 Initial ECG Rate: 81 Initial ECG Rhythm: Normal Sinus Initial ECG Intervals: Normal Initial ECG Impression: Normal Initial ECG Comparisson: Unchanged (CHIO ZAMBRANO APRN) Diagnostic Imaging Diagonstic Imaging: Xray Plain Films/CT/US/NM/MRI: chest Comments [facility], [place] NAME: ZAYDA SALCIDO [facility] REC#: [id number] PT STATUS: REG ER : 1975 PHYSICIAN: CHIO ZAMBRANO APRN ADMIT DATE: 10/16/22/ER Draft Date of Exam:10/16/22 CHEST 1 VIEW, AP/PA ONLY INDICATION: Chest pain, increased pain, swelling. TECHNIQUE: Single view chest 11:32 AM. CORRELATION STUDY: 05/26/2021 FINDINGS: Enlarged heart and mildly prominent mediastinum, stable. The lungs are clear with no consolidating infiltrate. There is no significant effusion or pneumothorax. IMPRESSION: 1. Stable cardiac enlargement without overt failure. Dictated on workstation # [id number] Dict: 10/16/22 1147 Trans: 10/16/22 1147 DO [id number] Interpreted by: KIEL MAHER DO Electronically signed by: (CHIO ZAMBRANO APRN) Departure Impression Primary Impression: Leg pain Disposition: 01 HOME, SELF-CARE Condition: Stable Departure-Patient Inst. Referrals: [facility]/ (PCP) Primary Care Physician JAMAAL KELLEY DO (Family) Primary Care Physician Patient Instructions: Dependent Edema (DC) Add. Discharge Instructions: Elevate your legs higher than the level of your heart. Reduce your salt consumption. Obtain compression stockings. Follow-up with primary care provider. Return for worsening chest pain, shortness of air, or any other new, concerning, worsening symptoms. All discharge instructions reviewed with patient and/or family. Voiced understanding. ATTENDING PHYSICIAN NOTE: I was physically present as attending physician in the emergency department during the care of this patient I briefly discussed this patient and her case with TANK TENDER. We reviewed labs, her exam, and clinical presentation. I agreed with work-up and course of care. I did not personally interview or examine this patient. I was not otherwise directly involved in the decision making or delivery of care for this patient. (ALINE DECKER MD) CHIO ZAMBRANO APRN Oct 16, 2022 11:12 ALINE DECKER MD Oct 18, 2022 14:02
[2022-10-16 11:43] LABS: BASOPHILS % (AUTO) 0 % (0-10); EOSINOPHILS # (AUTO) 0.2 10^3/uL (0.0-0.3); EOSINOPHILS % (AUTO) 3 % (0-10); HEMATOCRIT 38 % (35-52); HEMOGLOBIN 12.2 g/dL (11.5-16.0); LYMPHOCYTES # (AUTO) 1.7 10^3/uL (1.0-4.0); LYMPHOCYTES % (AUTO) 30 % (12-44); MEAN CORPUSCULAR HEMOGLOBIN 27 pg (25-34); MEAN CORPUSCULAR HGB CONC 32 g/dL (32-36); MEAN CORPUSCULAR VOLUME 84 fL (80-99); MEAN PLATELET VOLUME 9.2 fL (9.0-12.2); MONOCYTES # (AUTO) 0.5 10^3/uL (0.0-1.0); MONOCYTES % (AUTO) 9 % (0-12); NEUTROPHILS # (AUTO) 3.2 10^3/uL (1.8-7.8); NEUTROPHILS % (AUTO) 57 % (42-75); PLATELET COUNT 242 10^3/uL (130-400); WHITE BLOOD COUNT 5.6 10^3/uL (4.3-11.0)
--- NOTE | 2022-10-16 11:48 | Diagnostic Imaging Report ---
INDICATION: Chest pain, increased pain, swelling. TECHNIQUE: Single view chest 11:32 AM. CORRELATION STUDY: 05/26/2021 FINDINGS: Enlarged heart and mildly prominent mediastinum, stable. The lungs are clear with no consolidating infiltrate. There is no significant effusion or pneumothorax. IMPRESSION: 1. Stable cardiac enlargement without overt failure. Dictated by: Dictated on workstation # [id number]
[2022-10-16 12:00] LABS: PROTHROMBIN TIME PATIENT 14.1 SEC (12.2-14.7)
[2022-10-16 12:01] LABS: POTASSIUM 4.3 MMOL/L (3.6-5.0)
[2022-10-16 12:02] LABS: CALCIUM 9.3 MG/DL (8.5-10.1)
[2022-10-16 12:04] LABS: TOTAL PROTEIN 6.9 GM/DL (6.4-8.2)
[2022-10-16 12:06] LABS: BILIRUBIN,TOTAL 0.5 MG/DL (0.1-1.0)
[2022-10-16 12:07] LABS: CREATININE SERUM 0.76 MG/DL (0.60-1.30)
[2022-10-16 13:08] VITALS: BP 136/86
== END 2022-10-16 13:08 | disposition home or self-care (01) ==
LOC: EDUNIT# 08:11 → ER 08:12
DX: M79.662 Pain in left lower leg (principal); M79.661 Pain in right lower leg; R60.0 Localized edema; R07.89 Other chest pain; E66.01 Morbid (severe) obesity due to excess calories; Z68.43 Body mass index [BMI] 50.0-59.9, adult; Z28.310 Unvaccinated for COVID-19
CPT/HCPCS: 36415; 71045; 80053; 83735; 83880; 84484; 85025; 85379; 85610; 85730; 93005; 93041